=== PATIENT | male | born 1950 | race Caucasian/White ===

== ENCOUNTER 2017-05-09 19:30 | Inpatient (IN) | payer MEDICARE, SELFPAY ==
[2016-06-12 14:02] VITALS: BMI 29.7
[2017-05-09] VITALS (7 sets, daily range): BP systolic 173–236; BP diastolic 95–120; PULSE 68–94; RESP 16–22; TEMP 36.8–37.1; O2SAT 94–98; BMI 30.2; BMI 28.5; BMI 28.6
--- NOTE | 2017-05-09 19:33 | NURSING ---
RN CALLED FOR EKG, PULLED OLD EKG'S FOR
--- NOTE | 2017-05-09 19:49 | EKG12_ITS ---
Test Reason : CP Blood Pressure : / mmHG Vent. Rate : 077 BPM Atrial Rate : 077 BPM P-R Int : 198 ms QRS Dur : 092 ms QT Int : 494 ms P-R-T Axes : 043 -19 010 degrees QTc Int : 559 ms Normal sinus rhythm Inferior infarct , age undetermined Anterior infarct , age undetermined Prolonged QT Abnormal ECG Confirmed by MEL METZ, REINA ([id number]), property technician CANELO DIETRICH ([id number]) on 05/12/2017 2:32:29 PM Referred By: JOANN Confirmed By:REINA LEAL MD
--- NOTE | 2017-05-09 19:50 | CT_ITS ---
STUDY: CT ABDOMEN AND PELVIS WITHOUT CONTRAST REASON FOR EXAM: Male, 66 years old. Abdominal pain. Nausea. RADIATION DOSAGE (If Supplied By Facility): CTDIvol = ( 12.71 ) mGy, DLP = ( 652.92 ) mGycm TECHNIQUE: Transaxial images were obtained from the dome of the diaphragm to the symphysis pubis without oral contrast, and without intravenous contrast. Sagittal and coronal images were reconstructed. Individualized dose optimization techniques were used for this CT. COMPARISON: None. FINDINGS: There are bilateral pleural effusions present, right greater than left. There are coronary artery calcifications present. Normal liver. Normal gallbladder and extrahepatic biliary system. Normal spleen. Normal pancreas. Normal bilateral adrenal glands. Normal right kidney. Normal left kidney. Normal visualized stomach. Normal small intestine. Normal colon. The appendix is visualized and appears normal. There is diffuse atherosclerotic calcification of the abdominal aorta, without a demonstrated aneurysm. Normal inferior vena cava. Normal retroperitoneum. The urinary bladder is fluid-filled and distended. There appears to be associated mild bilateral hydroureter. Normal abdominal wall. There are diffuse degenerative changes of the visualized lumbar spine. CT/Abdomen/Pelvis without Cont IMPRESSION: Fluid-filled distended urinary bladder. Atherosclerosis. Small bilateral pleural effusions, right greater than left. Electronically Signed: Melani Thompson MD at 20:29 EST Tel , Service support ,
[2017-05-09] MEDS: Ondansetron 4 MG/2 ML Vial IV (19:56)
--- NOTE | 2017-05-09 20:07 | RAD_ITS ---
STUDY: X-RAY CHEST REASON FOR EXAM: Male, 66 years old. Cough, chest pain. TECHNIQUE: PA and lateral views of the chest. COMPARISON: March 13, 2017 FINDINGS: There are small bilateral pleural effusions. There are low lung volumes. There is stable cardiomegaly. Normal visualized aortic arch and descending thoracic aorta. Normal visualized thoracic spine. Normal visualized ribs, clavicles, and shoulders. There is no demonstrated abnormality of the visualized soft tissue structures of the upper abdomen. RAD/Chest PA and Lateral IMPRESSION: Small bilateral pleural effusions. Stable cardiomegaly. Electronically Signed: Melani Thompson MD at 21:07 EST Tel , Service support ,
[2017-05-09 20:15] LABS: Absolute Lymphocyte Count 0.97 X10^3/ul (0.83-4.51); Absolute Neutrophil Count 8.4 X10^3/uL (2.0-7.7); Basophil# 0.03 X10^3/uL; Basophil% 0.3 % (0-1); Eosinophil# 0.09 X10^3/uL; Eosinophils% 0.9 % (0-5); Hematocrit 47.9 % (40-54); Hemoglobin 16.3 g/dl (13.0-16.5); Lymphocyte # 0.97 X10^3/ul (4.0); Lymphocyte % 9.3 % (19-41); Mean Corpuscular Hgb 29.1 pg (27.0-32.0); Mean Corpuscular Volume 85.4 fL (80-94); Mean Platelet Vol. 9.4 fl (6.2-12.0); Monocyte# 0.93 X10^3/uL; Monocyte% 8.9 % (0-10); Neutrophil # 8.38 X10^3/uL (2.7-7.7); Neutrophil % 80.2 % (47-70); Platelet Count 213 K/mm3 (150-450); RBC Distribution Width CV 13.9 % (11.6-14.6); RBC Distribution Width SD 42.9 fl (35.1-43.9); Red Blood Count 5.61 M/mm3 (4.6-6.2); White Blood Count 10.4 K/mm3 (4.4-11.0)
[2017-05-09 20:16] LABS: POSITIVE DIFFERENTIAL NO
[2017-05-09 20:17] LABS: POSITIVE COUNT NO; POSITIVE MORPHOLOGY NO
[2017-05-09 20:41] LABS: AST(SGOT) 44 U/L (15-37); Alanine Aminotransfer ALT/SGPT 70 U/L (16-61); Albumin, Serum 4.1 g/dL (3.2-5.0); Alkaline Phosphatase 82 U/L (45-117); Anion Gap 13 (5-15); BUN 14 mg/dL (7-18); Calcium,Total 9.3 mg/dL (8.5-10.1); Chloride 98 mmol/L (98-107); Creatinine, Serum 1.55 mg/dL (0.70-1.30); EST Glomerular Filtration Rate 48 mL/min (>60); Est Glom Filt Rate - Afr Amer 58 mL/min (>60); Estimated Creatinine Clearance 48.15 ml/min; Globulin 4.3 g/dL (2.2-4.2); Glucose 215 mg/dL (74-106); Lipase 99 U/L (73-393); Potassium 3.1 mmol/L (3.5-5.1); Protein, Total 8.4 g/dL (6.4-8.2); Sodium Level 135 mmol/L (136-145)
[2017-05-09 21:03] LABS: Bacteria 0 SEEN /hpf (None Seen); Mucous, Urine 0 SEEN /hpf (<or=2+); Squamous Epithelial Cells - UA 0 SEEN /hpf (0-5); White Blood Cells 0 SEEN /hpf (0-5)
[2017-05-09 21:06] LABS: Color, Urine Straw (Yellow); Glucose, Dipstick 250 mg/dl (Normal); Ketone-Dipstick Negative (Negative); Leukocyte Esterase-Dipstick Negative /ul (Negative); Nitrite-Dipstick Negative (Negative); Occult Blood-Urine 50 /ul (Negative); Protein-Dipstick 100 mg/dl (Negative); Specific Gravity, Urine 1.005 (1.002-1.030); Urine Bilirubin Dipstick Negative (Negative); Urine Clarity Clear (Clear); Urine Urobilinogen Normal (Normal)
[2017-05-09 21:19] LABS: Red Blood Cells-Urine 0-5 SEEN /hpf (0-5)
--- NOTE | 2017-05-09 21:34 | ED.DCSUM_ITS ---
- ER Visit Summary Date of Service: 05/09/17 Chief Complaint: Abdominal pain History of Present Illness: The patient is a 66 M who presents with diffuse nonfocal aching abdominal pain for the past week. Patient is a poor historian. Although he reports it as 10 out of 10 he then describes as mild knotting feeling. He states that he has had worse pain and can imagine worse pain but still placed this at 10 out of 10. Reports nausea with dry heaving. No actual vomiting. No diarrhea. No dysuria frequency or urgency. No hematuria. He does report difficulty voiding. Today he had some fluttering in his chest and palpitations. Although nursing triage note reported chest pain and chest tightness the patient denied this to me. He states he had absolutely no chest tightness chest pain or shortness of breath. Physical Examination: Initial blood pressure 236/120 vitals otherwise unremarkable Moist mucous membranes Heart regular rate and rhythm Lungs are clear Abdomen soft nondistended with some mild diffuse nonfocal tenderness no guarding no rebound Test Results: EKG shows sinus rhythm at a rate of 77 with inferior and anterior old Q waves. Laboratory studies notable for potassium 3.1 glucose 215 creatinine 1.55. Minimal elevation of ALT and AST at 70 and 44 respectively. Normal troponin. Normal lipase. Chest x-ray shows small bilateral pleural effusions. CT of the abdomen and pelvis shows a distended bladder and small effusion otherwise unremarkable. Emergency Department Course and Treatment: Avery catheter was placed and patient had roughly 1500 cc of light yellow urine out. He has remained resting comfortably throughout his course here and has benign repeat abdominal examinations. I explained that I do feel his abdominal pain is likely related to urinary retention. He actually has an appointment with his primary care physician tomorrow. He does not have acute ischemic changes on his EKG and has negative troponin and denies any chest pain or shortness of breath. However the patient and family essentially refused discharge. The patient states that he feels he needs to be watched overnight. He does not feel comfortable being discharged and wants to be watched to make sure everything is okay. I explained I do not believe that he meets admission criteria but could be placed in observation.. His blood pressure had improved to about 180/100. However his blood pressure does remain elevated and labile. Patient will be placed in observation for repeat laboratory studies and blood pressure monitoring. Treatment Plan: [] Disposition: Admit Impression: Abdominal pain Urinary retention Palpitations Hypokalemia Uncontrolled hypertension This note was generated with [employer] dictation software. It may contain incorrect words, spelling, and punctuation that were not noted in review of the chart prior to signing ED Disposition - Plan for ED Patient: Chief Complaint: Chest Pain Referrals: Jennifer Spicer DO [Primary Care Provider] -
[2017-05-09 21:50] LABS: Magnesium 1.7 mg/dL (1.6-2.6)
--- NOTE | 2017-05-09 22:52 | PCM.HP.STD ---
Problem List (1) Abdominal pain Status: Acute (2) Chest pain Status: Acute (3) Atherosclerosis of coronary artery of semin[place] heart without angina pectoris Status: Chronic Comment: SARA-RCA 06/15/2011, SARA-OM1 06/30/2011, SARA-LAD 08/20/2014, SARA-Prox- RCA 06/08/2016 (4) Cardiomyopathy, ischemic Status: Chronic (5) Chronic renal failure, stage 3 (moderate) Status: Chronic (6) History of coronary artery stent placement Status: Chronic Comment: SARA-RCA 06/15/2011, SARA-OM1 06/30/2011, SARA-LAD 08/20/2014, SARA-Prox- RCA 06/08/2016 (7) Hyperkalemia Status: Chronic (8) Hyperlipidemia Status: Chronic Qualifiers: (9) Hypertension Status: Chronic Qualifiers: Hypertension type: essential hypertension History of Present Illness Date of Admission: 05/09/17 Chief Complaint: Abdominal pain The patient is a 66 year old male w/ h/o left atrial thrombus, pulmonary HTN, CAD, paroxysmal afib, HTN, DMII and CKD III admitted for abdominal pain. He has epigastric abdominal pain x 1 week. Pain is constant and is in his epigastric area.. Pain is dull aching. Nothing makes it better or worse. Pain is so severe that he would have dry heave. No n/v. No other associated symptoms. Pain prevents him from eating. He also has occasional mild substernal chest pain. Pain occurs at rest and is episodic. Pain would last for minutes. Pain does not radiate. He has no palpitation or SOB associated with his chest pain. Past Medical History Past Medical History (Chronic Problems): Chronic Problems (Last Updated 05/02/17 @ 13:28 by Melania Mendoza) 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) History of coronary artery stent placement (Chronic ~06/08/16) SARA-RCA 06/15/2011, SARA-OM1 06/30/2011, SARA-LAD 08/20/2014, SARA-Prox- RCA 06/08/2016 Atherosclerosis of coronary artery of [place] heart without angina pectoris (Chronic) SARA-RCA 06/15/2011, SARA-OM1 06/30/2011, SARA-LAD 08/20/2014, SARA-Prox- RCA 06/08/2016 Paroxysmal atrial fibrillation (Chronic) Hypertension (Chronic) Hyperlipidemia (Chronic) Type II diabetes mellitus (Chronic) Hyperkalemia (Chronic) Chronic renal failure, stage 3 (moderate) (Chronic) STEMI (ST elevation myocardial infarction) (Chronic) Anemia of chronic renal failure, stage 3 (moderate) (Chronic) Obesity (BMI 30.0-34.9) (Chronic) Systolic CHF, acute on chronic (Chronic) Cardiomyopathy, ischemic (Chronic) Allergies atorvastatin calcium [From Lipitor] Allergy (Verified 05/09/17 19:31) Unknown diltiazem Allergy (Verified 05/09/17 19:31) Angioedema Home Medications: Ambulatory Orders Medication Instructions Recorded Aspirin [Aspirin, Baby] 81 mg PO DAILY@0800 12/28/14 Insulin Glargine,Hum.rec.anlog 60 unit SQ DAILY 12/28/14 [Lantus] Pravastatin [Pravachol] 40 mg PO QHS 12/28/14 Amiodarone HCl 200 mg PO DAILY 04/09/16 Carvedilol [Coreg (Beta Thalia)] 25 mg PO BID 04/10/16 Clopidogrel Bisulfate [Plavix] 75 mg PO DAILY 01/14/17 Losartan Potassium [Cozaar] 100 mg PO DAILY 01/14/17 Furosemide [Lasix] 40 mg PO BID@1000,1800 #90 tab 03/15/17 hydralazine 50 mg tablet 75 mg PO TID #135 tab 04/15/17 apixaban 2.5 mg tablet 2.5 mg PO BID #180 tab 04/20/17 Isosorbide Mononitrate [Imdur] 60 mg PO QHS 05/09/17 Surgical History: - - PCI. Psychiatric History: No pertinent psych hx, - - unknow - pt is intubated and unable to give hx. No family present Smoking Status: Former smoker - *Family History Maternal History Items: No pertinent history Paternal History Items: No pertinent history Review of Systems Constitutional: Denies: Chills, Fever, Weight Change HEENT: Denies: Head Aches, Sinus Congestion, Sinus Drainage Cardiovascular: Reports: Chest Pain. Denies: Palpitations Respiratory: Denies: Cough, Shortness of breath at rest, Sputum production Gastrointestinal: Reports: Abdominal Pain, Nausea. Denies: Vomiting Genitourinary: Denies: Dysuria Musculoskeletal: Denies: Joint Pain, Joint Tenderness Skin: Denies: Rash, Wounds Neurological: Denies: Numbness, Tingling, Focal weakness Psychiatric: Denies: Anxiety, Depression, Homicidal Ideations, Suicidal Ideations Hematologic/ Lymphatic: Denies: Easy Bruising, Easy Bleeding VTE Information - Inpt Only VTE Present on Admission: No VTE Mechan Device Prophylaxis: SCD's VTE Pharm Prophylaxis ordered?: No Patient Problems: Active and Suspected Problems (Last Updated 05/02/17 @ 13:28 by Melania Mendoza) Abdominal pain (Acute) Chest pain (Acute) - Physical Exam General: Alert, Oriented x3, Cooperative HEENT: Atraumatic, PERRLA, EOMI, Normocephalic Neck: Supple, No JVD, Negative Carotid Bruits Lungs: Clear to auscultation, Normal air movement Cardiovascular: Irregular Rate, Murmur - II/ systolic murmur Abdomen: Bowel Sounds Present, Soft, - - Mild diffuse tenderness Extremities: No edema, Capillary Refill Less than 3 Seconds Skin: No rashes, No breakdown Musculoskeletal: No Tenderness to Palpation of Joints or Extremities Neurological: Cranial nerves II-XII grossly intact Psych/Mental Status: Normal Affect, Appropriate Vital Signs Temp Pulse Resp BP Pulse Ox 98.2 F 69 16 173/95 H 95 05/09/17 19:32 05/09/17 22:21 05/09/17 22:21 05/09/17 22:21 05/09/17 22:21 Oxygen Delivery Method Room Air Weight: 92.8 kg Body Mass Index (BMI) 30.2 Finger Stick Blood Glucose 213 Laboratory Tests Past 24 Hrs 05/09/17 05/09/17 05/09/17 19:30 19:30 19:30 WBC 10.4 RBC 5.61 Hgb 16.3 Hct 47.9 MCV 85.4 MCH 29.1 MCHC 34.0 RDW 13.9 RDW Differential 42.9 Plt Count 213 MPV 9.4 Immature Gran % (Auto) 0.400 Neut % (Auto) 80.2 H Lymph % (Auto) 9.3 L [place] % (Auto) 8.9 Eos % (Auto) 0.9 Baso % (Auto) 0.3 Absolute Neuts (auto) 8.4 H Absolute Lymphs (auto) 0.97 Total Counted Not Reportable Sodium 135 L Potassium 3.1 L Chloride 98 Carbon Dioxide 24.0 Anion Gap 13 BUN 14 Creatinine 1.55 H Estim Creat Clear Calc 48.15 Est GFR (MDRD) Af Amer 58 L Est GFR (MDRD) Non-Af 48 L BUN/Creatinine Ratio 9.0 L Glucose 215 H Calcium 9.3 Magnesium 1.7 Total Bilirubin 0.80 AST 44 H ALT 70 H Alkaline Phosphatase 82 Troponin I 0.05 Total Protein 8.4 H Albumin 4.1 Globulin 4.3 H Albumin/Globulin Ratio 1.0 Lipase 99 Urine Color Urine Clarity Urine pH Ur Specific [place] Urine Protein Urine Glucose (UA) Urine Ketones Urine Occult Blood Urine Nitrite Urine Bilirubin Urine Urobilinogen Ur Leukocyte Esterase Urine RBC Urine WBC Ur Squamous Epith Cells Urine Bacteria Urine Mucus 05/09/17 20:50 WBC RBC Hgb Hct MCV MCH MCHC RDW RDW Differential Plt Count MPV Immature Gran % (Auto) Neut % (Auto) Lymph % (Auto) [place] % (Auto) Eos % (Auto) Baso % (Auto) Absolute Neuts (auto) Absolute Lymphs (auto) Total Counted Sodium Potassium Chloride Carbon Dioxide Anion Gap BUN Creatinine Estim Creat Clear Calc Est GFR (MDRD) Af Amer Est GFR (MDRD) Non-Af BUN/Creatinine Ratio Glucose Calcium Magnesium Total Bilirubin AST ALT Alkaline Phosphatase Troponin I Total Protein Albumin Globulin Albumin/Globulin Ratio Lipase Urine Color Straw Urine Clarity Clear Urine pH 7.0 Ur Specific [place] 1.005 Urine Protein 100 H Urine Glucose (UA) 250 H Urine Ketones Negative Urine Occult Blood 50 H Urine Nitrite Negative Urine Bilirubin Negative Urine Urobilinogen Normal Ur Leukocyte Esterase Negative Urine RBC 0-5 SEEN Urine WBC 0 SEEN Ur Squamous Epith Cells 0 SEEN Urine Bacteria 0 SEEN Urine Mucus 0 SEEN Assessment/Plan Active and Suspected Problems (Last Updated 05/02/17 @ 13:28 by Melania Mendoza) Abdominal pain (Acute) Chest pain (Acute) 66 year old male w/ h/o left atrial thrombus, pulmonary HTN, CAD, paroxysmal afib, HTN, DMII and CKD III admitted for abdominal pain. He has epigastric abdominal pain x 1 week. 1) Abdominal pain: Unclear etiology. CT negative. Lipase negative. Supportive care. 2) Chest pain: Heart score 5 Will get serial trops. ECHO and stress test in AM. Will get lipid. C/w medical management. 3) Elevated trops: Probably type II from HTN and underlying cardiomyopathy. Follow trops and if increasing, will need to hold off on stress test. C/w medical management. 4) HTN: Resume home meds. May need to add PRN meds. Monitor.
[2017-05-09 23:53] LABS: Amphetamine Urine VISTA NEGATIVE (<1000 ng/mL); Barbiturate Urine VISTA NEGATIVE (< 200 ng/mL); Benzodiazepine Urine VISTA NEGATIVE (< 200 ng/mL); Cocaine Urine VISTA NEGATIVE (< 300 ng/mL); Ecstacy Urine VISTA NEGATIVE (< 500 ng/mL); Methadone Urine VISTA NEGATIVE (< 300 ng/mL); PCP Urine VISTA NEGATIVE (< 25 ng/mL); THC Urine VISTA NEGATIVE (< 50 ng/mL); Vista UDS pH Range 6
[2017-05-10] VITALS (16 sets, daily range): BP systolic 126–164; BP diastolic 84–102; PULSE 54–103; RESP 18; TEMP 36.8–37.1; O2SAT 94–96
[2017-05-10] MEDS: 0.9% NaCl Peripheral Flush Adult/Peds IV ×4 (00:17→22:11)
[2017-05-10 00:35] LABS: Lactic Acid 1.1 mmol/L (0.4-2.0)
[2017-05-10 00:36] LABS: Bedside Glucose 150 mg/dL (70-110)
[2017-05-10] MEDS: Isosorbide Mononitrate 60 MG Tablet PO ×2 (01:09→21:58)
[2017-05-10] MEDS: Carvedilol 25 MG Tablet PO ×3 (01:10→21:58)
[2017-05-10] MEDS: APIXABAN 2.5 MG TABLET PO (01:10)
[2017-05-10] MEDS: Pravastatin 40 MG Tablet PO ×2 (01:10→21:58)
[2017-05-10 04:12] LABS: Absolute Lymphocyte Count 0.88 X10^3/ul (0.83-4.51); Basophil# 0.05 X10^3/uL; Basophil% 0.5 % (0-1); Eosinophil# 0.08 X10^3/uL; Eosinophils% 0.9 % (0-5); Hematocrit 41.4 % (40-54); Hemoglobin 14.2 g/dl (13.0-16.5); Lymphocyte # 0.88 X10^3/ul (4.0); Lymphocyte % 9.5 % (19-41); Mean Corp Hgb Conc 34.3 g/gl (32-36); Mean Corpuscular Hgb 29.5 pg (27.0-32.0); Mean Corpuscular Volume 85.9 fL (80-94); Mean Platelet Vol. 9.5 fl (6.2-12.0); Monocyte# 1.15 X10^3/uL; Monocyte% 12.5 % (0-10); Neutrophil # 7.04 X10^3/uL (2.7-7.7); Neutrophil % 76.3 % (47-70); Platelet Count 201 K/mm3 (150-450); RBC Distribution Width CV 14.1 % (11.6-14.6); RBC Distribution Width SD 42.8 fl (35.1-43.9); Red Blood Count 4.82 M/mm3 (4.6-6.2); White Blood Count 9.2 K/mm3 (4.4-11.0)
[2017-05-10 04:13] LABS: POSITIVE COUNT NO; POSITIVE DIFFERENTIAL NO; POSITIVE MORPHOLOGY NO
[2017-05-10 04:52] LABS: ALB/GLOB Ratio 0.9 RATIO (0.9-2.4); AST(SGOT) 30 U/L (15-37); Alanine Aminotransfer ALT/SGPT 50 U/L (16-61); Albumin, Serum 3.2 g/dL (3.2-5.0); Alkaline Phosphatase 60 U/L (45-117); Anion Gap 10 (5-15); BUN 13 mg/dL (7-18); BUN/Creat Ratio 8.9 RATIO (10-20); Calcium,Total 8.3 mg/dL (8.5-10.1); Chloride 102 mmol/L (98-107); Cholesterol 121 mg/dL (200); Creatinine, Serum 1.46 mg/dL (0.70-1.30); EST Glomerular Filtration Rate 52 mL/min (>60); Est Glom Filt Rate - Afr Amer 62 mL/min (>60); Estimated Creatinine Clearance 51.11 ml/min; Globulin 3.5 g/dL (2.2-4.2); Glucose 149 mg/dL (74-106); High Density Lipoprotein 41 mg/dL; Magnesium 1.8 mg/dL (1.6-2.6); Potassium 3.2 mmol/L (3.5-5.1); Protein, Total 6.7 g/dL (6.4-8.2); Sodium Level 139 mmol/L (136-145); Thyroid Stim Hormone (TSH) 4.93 uIU/mL (0.358-3.74); Triglycerides 113 mg/dL; Very Low Density Lipoprotein 23 mg/dL (5-40)
--- NOTE | 2017-05-10 05:55 | ECHOD_ITS ---
Reason For Study: chest pain Procedure This was a 2D Doppler, Color Flow transthoracic echocardiogram. Exam performed portable in patient room. Left Ventricle Normal LV size. Moderately severe segmental systolic dysfunction (see wall motion). The estimated ejection fraction is 25 %. Mid-anteroseptal : Hypokinetic. Anterior [place] : Severely Hypokinetic. Anterio-Basal: Hypokinetic. Lateral-Basal: Normal. Posterior-Basal: Normal. Infero-Basal: Normal. Basal inferoseptal: Mildly hypokinetic. Basal anteroseptal: Normal. Septal [place] : Akinetic. Mid- Anterior : Hypokinetic. Mid-Lateral : Normal. Mid-Posterior: Hypokinetic. Mid-Inferior: Normal. Right Ventricle Normal RV size. Normal systolic function. Atria Normal left atrium. Normal right atrium. Mitral Valve Normal mitral valve. Tricuspid Valve Normal tricuspid valve. Mild (1+) tricuspid valve insufficiency. Pulmonary artery systolic pressure is 28 mmHg. Aortic Valve Normal aortic valve. Pulmonic Valve Normal pulmonic valve. Great Vessels Normal aortic root. The pulmonary artery is normal size. Normal inferior vena cava. Pericardium/Pleural No pericardial effusion. MMode/2D Measurements & Calculations LVIDd: 5.0 cm IVSd: 1.5 cm Ao root diam: 3.6 cm LVIDs: 3.8 cm LVPWd: 1.1 cm LA dimension: 4.4 cm FS: 23.0 % LAV(MOD-bp): 59.4 ml LA A4 area: 20.0 cm2 RA A4 area: 18.6 cm2 LAV(MOD-bp) Indexed: 29.2 ml/m2 LAV(MOD-sp2): 56.6 ml LAV(MOD-sp4): 57.6 ml Doppler Measurements & Calculations MV E max kevin: 107.4 cm/sec Lat Peak E' Kevin: 10.3 cm/sec Med Peak E' Kevin: 8.3 cm/sec MV A max kevin: 45.9 cm/sec E/E' lat: 10.4 E/E' med: 13.0 MV E/A: 2.3 Ao V2 max: 100.6 cm/sec LV V1 max: 79.4 cm/sec PA V2 max: 103.5 cm/sec Ao max P.1 mmHg LV V1 max P.5 mmHg TR max kevin: 240.6 cm/sec TR max P.2 mmHg Interpretation Summary Normal LV size. Moderately severe segmental systolic dysfunction (see wall motion). The estimated ejection fraction is 25 %. Mild (1+) tricuspid valve insufficiency. Ordering Physician: Suimt Hendricks Referring Physician: Jennifer Spicer Performed By: Melissa Hawthorne, IBRAHIMA, RVT
[2017-05-10 06:16] LABS: Bedside Glucose 184 mg/dL (70-110)
--- NOTE | 2017-05-10 10:22 | CASEMGMT ---
RN LISET Face to Face with patient for initial transition planning/care coordination assessment. RN CM introduced self and role at [facility]. Patient lying in bed, alert and oriented. Patient willing to participate in assessment and is able to answer all questions appropriately. Care providers, pharmacy, and demographics verified. See link attached. Patient wishes to discharge home, denies need for home health at this time. Patient states he has no further needs or concerns at this time. CM to follow for discharge planning needs that may arise. Disposition Plan: Patient to discharge home with family support and follow-up plans in place.
--- NOTE | 2017-05-10 10:52 | PCM.PN.HOSP ---
Patient Problems: Active and Suspected Problems (Last Updated 05/02/17 @ 13:28 by Melania Mendoza) Abdominal pain (Acute) Chest pain (Acute) Subjective: CC: Epigastric pain This is a 66-year-old male with past medical history of left atrial thrombus, pulmonary HTN, CAD, paroxysmal afib, HTN, DMII and CKD III admitted for abdominal pain. He describes his gastric pain radiating to her back. His pancreatic enzymes and CT scan of the abdomen does not show any evidence of pancreatitis. He is on Eliquis, Plavix and aspirin for his cardiac problems mentioned above. He is unaware of melanotic stools. Vitals/I&O's: Vital Signs Temp Pulse Resp BP Pulse Ox 98.2 F 56 L 18 146/84 H 96 05/10/17 06:02 05/10/17 06:11 05/10/17 06:02 05/10/17 06:02 05/10/17 06:02 Oxygen Delivery Method Room Air Weight: 87.8 kg Body Mass Index (BMI) 28.5 Intake and Output for Last 24 Hours 05/08/17 05/09/17 05/10/17 23:59 23:59 23:59 Intake Total 60 / 60 Output Total 325 / 325 Balance -265 / -265 General: Alert, Oriented x3 Neck: Supple, No JVD Lungs: Clear to auscultation Cardiovascular: Regular rate, Normal S1, Normal S2 Abdomen: Bowel Sounds Present, Tender, - Extremities: No edema Neurological: Cranial nerves II-XII grossly intact, Motor Exam 5/5 strength throughout Psych/Mental Status: Normal Affect Laboratory Results 05/09/17 23:53: Lactic Acid 1.1 05/09/17 23:53: CK Isoenzymes Pending, CK-MM (CK-3) Pending, CK-MB (CK-2) Pending, CK-BB (CK-1) Pending 05/09/17 23:53: Troponin I 0.18 H 05/10/17 00:33: POC Glucose 150 H 05/10/17 03:50: WBC 9.2, RBC 4.82, Hgb 14.2, Hct 41.4, MCV 85.9, MCH 29.5, MCHC 34.3, RDW 14.1, RDW Differential 42.8, Plt Count 201, MPV 9.5, Immature Gran % (Auto) 0.300, Neut % (Auto) 76.3 H, Lymph % (Auto) 9.5 L, [place] % (Auto) 12.5 H, Eos % (Auto) 0.9, Baso % (Auto) 0.5, Absolute Neuts (auto) 7.0, Absolute Lymphs (auto) 0.88, Total Counted Not Reportable 05/10/17 03:50: Sodium 139, Potassium 3.2 L, Chloride 102, Carbon Dioxide 27.0, Anion Gap 10, BUN 13, Creatinine 1.46 H, Estim Creat Clear Calc 51.11, Est GFR (MDRD) Af Amer 62, Est GFR (MDRD) Non-Af 52 L, BUN/Creatinine Ratio 8.9 L, Glucose 149 H, Calcium 8.3 L, Magnesium 1.8, Total Bilirubin 0.60, AST 30, ALT 50, Alkaline Phosphatase 60, Total Protein 6.7, Albumin 3.2, Globulin 3.5, Albumin/Globulin Ratio 0.9, Triglycerides 113, Cholesterol 121, LDL Cholesterol 57, VLDL Cholesterol 23, HDL Cholesterol 41, TSH 4.93 H 05/10/17 03:50: Troponin I 0.22 H 05/10/17 06:08: POC Glucose 184 H Current Medications Amiodarone HCl (Cordarone) 200 mg PO DAILY [facility] Apixaban (Eliquis) 2.5 mg PO BID [facility] Last Admin: 05/10/17 01:10 Dose: 2.5 mg Aspirin (Aspirin, Baby) 81 mg PO DAILY@0800 [facility] Carvedilol (Coreg) 25 mg PO BID [facility] Last Admin: 05/10/17 01:10 Dose: 25 mg Clopidogrel Bisulfate (Plavix) 75 mg PO DAILY [facility] Furosemide (Lasix) 40 mg PO BID@1000,1800 [facility] Hydralazine HCl (Apresoline) 75 mg PO TID [facility] Last Admin: 05/10/17 06:11 Dose: 75 mg Insulin Detemir (Levemir (Bkc)) 60 units SC DAILY [facility] Isosorbide Mononitrate (Imdur) 60 mg PO QHS [facility] Last Admin: 05/10/17 01:09 Dose: 60 mg Losartan Potassium (Cozaar) 100 mg PO DAILY [facility] Morphine Sulfate (Morphine) 2 mg IV Q4H PRN PRN PRN Reason: SEVERE PAIN (6-/10) Last Admin: 05/10/17 06:21 Dose: 2 mg Nitroglycerin (Nitrostat) 0.4 mg SUBLINGUAL Q5M PRN PRN Reason: CHEST PAIN Last Admin: 05/10/17 03:17 Dose: 0.4 mg Pravastatin Sodium (Pravachol) 40 mg PO QHS MARIA ISABEL Last Admin: 05/10/17 01:10 Dose: 40 mg Sodium Chloride () 5 - 30 ml IV UD PRN PRN Reason: SALINE FLUSH Last Admin: 05/10/17 00:17 Dose: 10 ml Assessment/Plan Active and Suspected Problems (Last Updated 05/02/17 @ 13:28 by Melania Mendoza) Abdominal pain (Acute) Chest pain (Acute) 1. Epigastric pain; in his epigastric tenderness and being on anticoagulation and dual antiplatelet therapy assessment he might have peptic ulcer disease, I have consulted general surgery for possible EGD in a.m. 2. Atypical chest pain; stress test was negative for ischemia . 3. history intracardiac thrombus; the patient is on Eliquis, we will hold Eliquis for EGD tomorrow. 4. Atrial fibrillation the patient is on amiodarone and anticoagulation. 5. cardiomyopathy ; he does not appear to have decompensated HF. Code Visit Inpatient E&M: 60175 [facility] L[facility]
--- NOTE | 2017-05-10 11:34 | STRESSREP_ITS ---
Stress Test Report Pharmacologic myocardial perfusion stress test. 66-year-old man with a history of coronary artery disease status post multiple previous stenting procedures with abdominal discomfort and nonspecific troponins. Stress protocol: Resting EKG demonstrates atrial fibrillation with a rate of 101 bpm. Resting blood pressure is 154/82 mmHg. 0.4 mg of regadenoson was infused per usual protocol followed by rapid intravenous saline flush injection continuous EKG monitoring was performed. The maximum heart rate attained was 131 bpm which was 83% of maximum predicted heart rate the maximum workload attained was 1 metabolic equivalent. The resting blood pressure is 154/82 with a final blood pressure 142/92. Nonspecific ST-T wave changes were noted throughout. Myocardial perfusion protocol. 9.4 mCi of technetium 99m sestamibi was injected at rest. 0.4 mg regadenoson was infused per usual protocol. Peak infusion 31.0 mCi of technetium 99m sestamibi was injected. Stress images were obtained. Stress and rest images were reconstructed and compared in the short axis vertical long and horizontal long axis. Gated images were also obtained. Perfusion SPECT analysis: Review of the stress images demonstrate a normal cardiac silhouette size. On the stress images there is a medium-sized defect noted involving the mid anterior wall extending to the apex with a definite significant defect noted in the apex. There is also a medium size area of perfusion defect in the inferior/ inferolateral wall on the stress images. The resting images appear to demonstrate an identical pattern suggestive of a previous anterior and apical infarct and inferior lateral infarct. The septum and mid anterior pfeiffer appear to be well perfused with no reversibility noted in any territory to suggest ischemia. There is also some motion artifact noted. Gated SPECT analysis: The gated ejection fraction is estimated to be 36% with severe hypokinesis of the inferior apical wall as well as akinesis of the apex and severe hypokinesis of the distal anterior wall. Conclusion: Myocardial perfusion scan with evidence of previous anterior apical infarct Previous distal inferolateral infarct noted Cardiomyopathy with an ejection fraction of 36% Persistent atrial fibrillation No obvious ischemia noted.
--- NOTE | 2017-05-10 11:45 | CT_ITS ---
STUDY: CT ABDOMEN AND PELVIS WITH CONTRAST REASON FOR EXAM: Male, 66 years old. One week history of epigastric pain. Prior hernia repair. RADIATION DOSAGE (If Supplied By Facility): CTDIvol = ( 23.33 ) mGy, DLP = ( 1078.71 ) mGycm TECHNIQUE: Transaxial images were obtained from the dome of the diaphragm to the symphysis pubis with oral contrast. 100ML ml of Isovue 300 contrast was administered. Sagittal and coronal images were reconstructed. Individualized dose optimization techniques were used for this CT. COMPARISON: Comparison is made with prior examination dated May 09, 2017. FINDINGS: Small right pleural effusion. This has decreased in size as compared to prior study. Minimal right basilar atelectasis. Coronary artery calcifications. Normal liver. Normal gallbladder and extrahepatic biliary system. Normal spleen. Normal pancreas. Normal bilateral adrenal glands. Mild degree of nonspecific bilateral perinephric stranding. Cortical scar along the inferior lateral portion of the left kidney. There is a small hiatal hernia. Normal small intestine. Normal colon. The appendix is visualized and appears normal. There is scattered atherosclerotic calcification of the abdominal aorta and its major visceral branches, without a demonstrated aneurysm. Normal inferior vena cava. There is borderline retroperitoneal lymphadenopathy with enlarged nodes no greater than 10mm in the short axis diameter. A Avery catheter is seen within the urinary bladder. Diffuse bladder wall thickening. There is a left-sided inguinal hernia containing adipose tissue. There are diffuse degenerative changes of the visualized lumbar spine. CT/Abdomen/Pelvis WITH Contrast IMPRESSION: Decreased right pleural effusion. Nonspecific mild degree of bilateral perinephric stranding. There is no evidence of hydronephrosis at this time. Electronically Signed: Domingo Noyola MD at 15:17 EST Tel [phone], Service support ,
[2017-05-10] MEDS: Aspirin 81 MG TAB.CHEW PO (12:00)
[2017-05-10] MEDS: Furosemide 40 MG Tablet PO ×2 (12:00→17:32)
[2017-05-10] MEDS: Amiodarone 200 MG Tablet PO (12:00)
[2017-05-10] MEDS: Losartan Potassium 100 MG Tablet PO (12:00)
[2017-05-10] MEDS: Clopidogrel Bisulfate 75 MG Tablet PO (12:00)
[2017-05-10 12:26] LABS: Bedside Glucose 233 mg/dL (70-110)
[2017-05-10 16:56] LABS: Bedside Glucose 132 mg/dL (70-110)
[2017-05-10 22:51] LABS: Bedside Glucose 56 mg/dL (70-110)
[2017-05-10 22:51] LABS: Bedside Glucose 81 mg/dL (70-110)
[2017-05-11] VITALS (22 sets, daily range): BP systolic 105–153; BP diastolic 60–93; PULSE 37–97; RESP 16–18; TEMP 36.3–36.9; O2SAT 91–99
--- NOTE | 2017-05-11 | GASB_PTH ---
PATIENT: RYAN CUMMINS LOC: [facility] U#:[id number] AGE/SX: 66/M ROOM: MO321 RE05/09/[address]: Andrew Castellon MD : 1950 BED: 1 DIS: 05/12/2017 SPEC #: [id number] RECD: 05/11/17 14:23 STATUS: [place] REQ #: [id number] SUSIE: 05/11/17 00:[address]: Víctor Rose DEPT: SURGICAL PATHOLOGY RECD BY: Jey Frederick ENTERED: 05/11/17 14:24 SP TYPE: Gastric Bx OTHR DR: MD Dr. Jennifer Nieto DO Dr. Nhan Luu, MD Tissues: A - Gastric mucous membrane B - Esophageal mucous membrane Procedures: Special Stain Group II Surgery Specimen Level IV Alcian Blue/PAS (control) Comments: @ Ordering doctor for SUIV edited from to @ by ISRA at 05/12/17 0842 @ Submitting doctor edited from to @ by ISRA at 05/12/17 0842 HEADER OPERATION: EGD PRE-OP DIAGNOSIS: Epigastric pain TISSUE SUBMITTED: A ? Antral biopsy, B ? Distal esophageal biopsy MICROSCOPIC DIAGNOSIS A. Gastric antrum, biopsy: Fragments of benign superficial gastric epithelium. B. Distal esophagus, biopsy: Gastroesophageal junctional mucosa with mild chronic inflammation. 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 AM:wang 05/12/17 COMMENT A. There is no evidence of inflammation. Clinical correlation is suggested. B. Alcian blue/PAS stain with matched control supports the above diagnosis. MICROSCOPIC DESCRIPTION Slides are reviewed. GROSS DESCRIPTION A - Received in fixative is one container labeled with the patient's name and designated antral biopsy. The specimen consists of one irregular fragment of light muhammad soft tissue that measures 0.2 x 0.2 x <0.2 cm. The specimen is totally submitted in one cassette. B - Received in fixative is one container labeled with the patient's name and designated distal esophagus. The specimen consists of multiple irregular fragments of light muhammad soft tissue that in aggregate measure 0.6 x 0.3 x 0.1 cm. The specimen is totally submitted in one cassette. / AM:wang 05/11/17 TC:5 CPT: 44798 x2, 34977
--- NOTE | 2017-05-11 00:45 | NURSING ---
heart rate bradycardic. pt is asleep. awakens easily. denies any discomfort. vitals checked. blood sugar checked and is 120. will notify the hospitalist. also spoke with [facility] nurse and tray line supervisor. will monitor.
[2017-05-11 00:56] LABS: Bedside Glucose 120 mg/dL (70-110)
[2017-05-11] MEDS: 0.9% NaCl Peripheral Flush Adult/Peds IV (05:41)
[2017-05-11 07:15] LABS: Bedside Glucose 103 mg/dL (70-110)
[2017-05-11 07:56] LABS: Anion Gap 9 (5-15); BUN 23 mg/dL (7-18); Calcium,Total 8.1 mg/dL (8.5-10.1); Chloride 102 mmol/L (98-107); EST Glomerular Filtration Rate 31 mL/min (>60); Est Glom Filt Rate - Afr Amer 37 mL/min (>60); Estimated Creatinine Clearance 32.45 ml/min; Glucose 100 mg/dL (74-106); Potassium 3.4 mmol/L (3.5-5.1); Sodium Level 139 mmol/L (136-145)
--- NOTE | 2017-05-11 09:10 | NURSING ---
CHERYL Steward taking patient down to PACU for EGD. Report called to DEVYN Conn in PACU at this time.
--- NOTE | 2017-05-11 09:12 | PN_ITS ---
Patient Problems: Active and Suspected Problems (Last Updated 05/02/17 @ 13:28 by Melania Mendoza) Abdominal pain (Acute) Chest pain (Acute) Subjective: CC: epigastric pain he is much improved but has significant epigastric pain. He reports no nausea or vomiting. Vitals/I&O's: Vital Signs Temp Pulse Resp BP Pulse Ox 97.8 F 68 18 130/78 H 96 05/11/17 05:47 05/11/17 05:47 05/11/17 05:47 05/11/17 05:47 05/11/17 05:47 Oxygen Delivery Method Room Air Weight: 87.8 kg Body Mass Index (BMI) 28.5 Intake and Output for Last 24 Hours 05/09/17 05/10/17 05/11/17 23:59 23:59 23:59 Intake Total 370 / 370 400 / 400 Output Total 800 / 800 800 / 800 Balance -430 / -430 -400 / -400 Laboratory Results 05/10/17 11:40: Troponin I 0.10 H 05/10/17 12:21: POC Glucose 233 H 05/10/17 16:45: POC Glucose 132 H 05/10/17 22:13: POC Glucose 56 L 05/10/17 22:36: POC Glucose 81 05/11/17 00:49: POC Glucose 120 H 05/11/17 07:10: POC Glucose 103 05/11/17 07:15: Sodium 139, Potassium 3.4 L, Chloride 102, Carbon Dioxide 28.0, Anion Gap 9, BUN 23 H, Creatinine 2.30 H, Estim Creat Clear Calc 32.45, Est GFR (MDRD) Af Amer 37 L, Est GFR (MDRD) Non-Af 31 L, BUN/Creatinine Ratio 10.0, Glucose 100, Calcium 8.1 L 05/11/17 07:15: Hemoglobin A1c 8.0 H Current Medications Amiodarone HCl (Cordarone) 200 mg PO DAILY [facility] Last Admin: 05/10/17 12:00 Dose: 200 mg Aspirin (Aspirin, Baby) 81 mg PO DAILY@0800 [facility] Last Admin: 05/10/17 12:00 Dose: 81 mg Carvedilol (Coreg) 25 mg PO BID [facility] Last Admin: 05/10/17 21:58 Dose: 25 mg Clopidogrel Bisulfate (Plavix) 75 mg PO DAILY [facility] Last Admin: 05/10/17 12:00 Dose: 75 mg Furosemide (Lasix) 40 mg PO BID@1000,1800 [facility] Last Admin: 05/10/17 17:32 Dose: 40 mg Hydralazine HCl (Apresoline) 75 mg PO TID [facility] Last Admin: 05/11/17 05:40 Dose: 75 mg Insulin Detemir (Levemir (Bkc)) 60 units SC DAILY [facility] Last Admin: 05/10/17 12:00 Dose: 60 u Isosorbide Mononitrate (Imdur) 60 mg PO QHS [facility] Last Admin: 05/10/17 21:58 Dose: 60 mg Losartan Potassium (Cozaar) 100 mg PO DAILY [facility] Last Admin: 05/10/17 12:00 Dose: 100 mg Morphine Sulfate (Morphine) 2 mg IV Q4H PRN PRN PRN Reason: SEVERE PAIN (6-10/10) Last Admin: 05/10/17 22:11 Dose: 2 mg Nitroglycerin (Nitrostat) 0.4 mg SUBLINGUAL Q5M PRN PRN Reason: CHEST PAIN Last Admin: 05/10/17 03:17 Dose: 0.4 mg Pantoprazole Sodium (Protonix) 40 mg PO DAILY [facility] Pravastatin Sodium (Pravachol) 40 mg PO QHS [facility] Last Admin: 05/10/17 21:58 Dose: 40 mg Sodium Chloride () 5 - 30 ml IV UD PRN PRN Reason: SALINE FLUSH Last Admin: 05/11/17 05:41 Dose: 20 ml Assessment/Plan Active and Suspected Problems (Last Updated 05/02/17 @ 13:28 by Melania Mendoza) Abdominal pain (Acute) Chest pain (Acute) 1. Epigastric pain; suspect peptic ulcer disease, I have consulted general surgery for possible EGD in a.m. 2. Atypical chest pain; stress test was negative for ischemia . 3. history intracardiac thrombus; the patient is on Eliquis , on hol for EGD today. 4. Atrial fibrillation the patient is on amiodarone and anticoagulation. 5. cardiomyopathy ; he does not appear to have decompensated HF. Code Visit Inpatient E&M: 18704 [facility] Hosp L2
--- NOTE | 2017-05-11 11:16 | PCM.CONS.GEN ---
Reason for Consult Date of Consultation: 05/11/17 History of Present Illness: The patient is a 66 year old M admitted with epigastric and chest pain. The patient has a long-standing cardiac history including 5 drug-eluting stents atrial thrombus and cardiomyopathy with an ejection fraction of 25% on a recent echocardiogram. the patient denies hematemesis. he denies melena or dark stools. He does not have anemia. He is on oral 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s-Elliquis. I am consulted for upper endoscopy to assess for peptic ulcer disease Past Medical History Past Medical History (Chronic Problems): Chronic Problems (Last Updated 05/02/17 @ 13:28 by Melania Mendoza) 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) History of coronary artery stent placement (Chronic ~06/08/16) SARA-RCA 06/15/2011, SARA-OM1 06/30/2011, SARA-LAD 08/20/2014, SARA-Prox- RCA 06/08/2016 Atherosclerosis of coronary artery of [place] heart without angina pectoris (Chronic) SARA-RCA 06/15/2011, SARA-OM1 06/30/2011, SARA-LAD 08/20/2014, SARA-Prox- RCA 06/08/2016 Paroxysmal atrial fibrillation (Chronic) Hypertension (Chronic) Hyperlipidemia (Chronic) Type II diabetes mellitus (Chronic) Hyperkalemia (Chronic) Chronic renal failure, stage 3 (moderate) (Chronic) STEMI (ST elevation myocardial infarction) (Chronic) Anemia of chronic renal failure, stage 3 (moderate) (Chronic) Obesity (BMI 30.0-34.9) (Chronic) Systolic CHF, acute on chronic (Chronic) Cardiomyopathy, ischemic (Chronic) Allergies atorvastatin calcium [From Lipitor] Allergy (Verified 05/09/17 19:31) Unknown diltiazem Allergy (Verified 05/09/17 19:31) Angioedema Home Medications: Ambulatory Orders Medication Instructions Recorded Aspirin [Aspirin, Baby] 81 mg PO DAILY@0800 12/28/14 Insulin Glargine,Hum.rec.anlog 60 unit SQ DAILY 12/28/14 [Lantus] Pravastatin [Pravachol] 40 mg PO QHS 12/28/14 Amiodarone HCl 200 mg PO DAILY 04/09/16 Carvedilol [Coreg (Beta Thalia)] 25 mg PO BID 04/10/16 Clopidogrel Bisulfate [Plavix] 75 mg PO DAILY 01/14/17 Losartan Potassium [Cozaar] 100 mg PO DAILY 01/14/17 Furosemide [Lasix] 40 mg PO BID@1000,1800 #90 tab 03/15/17 hydralazine 50 mg tablet 75 mg PO TID #135 tab 04/15/17 apixaban 2.5 mg tablet 2.5 mg PO BID #180 tab 04/20/17 Isosorbide Mononitrate [Imdur] 60 mg PO QHS 05/09/17 Surgical History: - - PCI. Psychiatric History: No pertinent psych hx, - - unknow - pt is intubated and unable to give hx. No family present Smoking Status: Former smoker - *Family History Maternal History Items: No pertinent history Paternal History Items: No pertinent history Review of Systems Constitutional: Reports: Malaise Cardiovascular: Reports: Chest Pain Respiratory: Denies: Cough, Shortness of breath at rest, Sputum production Gastrointestinal: Reports: Abdominal Pain Patient Problems: Active and Suspected Problems (Last Updated 05/02/17 @ 13:28 by Melania Mendoza) Abdominal pain (Acute) Chest pain (Acute) - Physical Exam General: Alert, Oriented x3 HEENT: Atraumatic, PERRLA, EOMI, Normocephalic Neck: Supple, No JVD Lungs: Diminished, - - coarse Cardiovascular: Regular rate, Regular Rhythm, Irregular Rate, - - distant Abdomen: Bowel Sounds Present, Soft, Tender - in the epigastrium Vital Signs Temp Pulse Resp BP Pulse Ox 98.2 F 71 18 134/93 H 94 05/11/17 09:15 05/11/17 09:15 05/11/17 09:15 05/11/17 09:15 05/11/17 09:15 Oxygen Delivery Method Room Air Weight: 87.8 kg Body Mass Index (BMI) 28.5 Intake and Output for Last 24 Hours 05/09/17 05/10/17 05/11/17 23:59 23:59 23:59 Intake Total 370 / 370 400 / 400 Output Total 800 / 800 800 / 800 Balance -430 / -430 -400 / -400 Laboratory Tests Past 24 Hrs 05/10/17 05/11/17 05/11/17 11:40 07:15 07:15 Sodium 139 Potassium 3.4 L Chloride 102 Carbon Dioxide 28.0 Anion Gap 9 BUN 23 H Creatinine 2.30 H Estim Creat Clear Calc 32.45 Est GFR (MDRD) Af Amer 37 L Est GFR (MDRD) Non-Af 31 L BUN/Creatinine Ratio 10.0 Glucose 100 Hemoglobin A1c 8.0 H Calcium 8.1 L Troponin I 0.10 H POC Glucose 05/11/17 05/11/17 05/10/17 07:10 00:49 22:36 POC Glucose 103 120 H 81 05/10/17 05/10/17 05/10/17 22:13 16:45 12:21 POC Glucose 56 L 132 H 233 H Assessment/Plan Active and Suspected Problems (Last Updated 05/02/17 @ 13:28 by Melania Mendoza) Abdominal pain (Acute) Chest pain (Acute) history is significant coronary artery disease, congestive heart failure, cardiomyopathy-epigastric and chest pain-negative recent stress test I plan to perform upper endoscopy. The patient understands the risks, benefits, alternatives and consents to the procedure. He was maintained nothing by mouth. His cardiac disease and cardiomyopathy increases his procedural risk.
--- NOTE | 2017-05-11 12:46 | PCM.OPRPT ---
Report of Operation Date of Procedure: 05/11/17 Pre-Operative Diagnosis: EPIGASTRIC PAIN Post-Operative Diagnosis: MILD GASTRITIS, SIGNIFICANT DISTAL ESOPHAGITIS Surgery/Procedure Performed:: EGD WITH BIOPSY production crew supervisor: None Type of Anesthesia:: MAC Anesthesiologist: Luis Miguel Carlson - ASA3 Specimen's removed: GASTRIC, ESOPHAGEAL Description of Procedure: The patient was brought to the endoscopy suite. Sign in was performed verifying patient, site, planned procedure, critical nursing information, the patient was monitored with cardiac, pulse oximetric, and blood pressure monitoring devices. Monitored anesthetic care was provided for sedation. Following IV sedation and after the oropharynx was sprayed with Cetacaine spray, a video gastroscope was inserted in the oropharynx and advanced down the esophagus without difficulty. The scope was advanced through the stomach, through the pylorus through the duodenum to the proximal jejunum.the jejunum and duodenum appeared unremarkable. As the scope was withdrawn. There was mild gastritis in the antral region. Biopsy was obtained at this area for H. pylori and pathology. As the scope was withdrawn. There was an area of moderate erosive gastritis along the greater curvature of the stomach with no signs of recent bleeding. The scope was retroflexed. The GE junction appeared lax without signs of true hiatal hernia. There were no signs of marginal ulceration. The patient had relatively significant distal erosive esophagitis. Multiple biopsies were taken of the area. The more proximal esophagus appeared unremarkable. The patient tolerated the procedure well and was brought to recovery in stable condition. given his symptoms and feel this is most likely be significant erosive esophagitis-I recommended both proton pump inhibitors and Carafate. This was communicated to the primary service. - Admit VTE Documentation VTE Present on Admission: No VTE Mechan Device Prophylaxis: SCD's
--- NOTE | 2017-05-11 12:51 | OP.PCM_ITS ---
Report of Operation Date of Procedure: 05/11/17 Pre-Operative Diagnosis: EPIGASTRIC PAIN Post-Operative Diagnosis: MILD GASTRITIS, SIGNIFICANT DISTAL ESOPHAGITIS Surgery/Procedure Performed:: EGD WITH BIOPSY residence life director: None Type of Anesthesia:: MAC Anesthesiologist: Luis Miguel Carlson - ASA3 Specimen's removed: GASTRIC, ESOPHAGEAL Description of Procedure: The patient was brought to the endoscopy suite. Sign in was performed verifying patient, site, planned procedure, critical nursing information, the patient was monitored with cardiac, pulse oximetric, and blood pressure monitoring devices. Monitored anesthetic care was provided for sedation. Following IV sedation and after the oropharynx was sprayed with Cetacaine spray , a video gastroscope was inserted in the oropharynx and advanced down the esophagus without difficulty. The scope was advanced through the stomach, through the pylorus through the duodenum to the proximal jejunum.the jejunum and duodenum appeared unremarkable. As the scope was withdrawn. There was mild gastritis in the antral region. Biopsy was obtained at this area for H. pylori and pathology. As the scope was withdrawn. There was an area of moderate erosive gastritis along the greater curvature of the stomach with no signs of recent bleeding. The scope was retroflexed. The GE junction appeared lax without signs of true hiatal hernia. There were no signs of marginal ulceration. The patient had relatively significant distal erosive esophagitis. Multiple biopsies were taken of the area. The more proximal esophagus appeared unremarkable. The patient tolerated the procedure well and was brought to recovery in stable condition. given his symptoms and feel this is most likely be significant erosive esophagitis-I recommended both proton pump inhibitors and Carafate. This was communicated to the primary service. - Admit VTE Documentation VTE Present on Admission: No VTE Mechan Device Prophylaxis: SCD's
[2017-05-11] MEDS: Aspirin 81 MG TAB.CHEW PO (14:28)
[2017-05-11] MEDS: Carvedilol 25 MG Tablet PO ×2 (14:28→23:22)
[2017-05-11] MEDS: Furosemide 40 MG Tablet PO (14:28)
[2017-05-11] MEDS: Losartan Potassium 100 MG Tablet PO (14:28)
[2017-05-11] MEDS: Amiodarone 200 MG Tablet PO (14:28)
[2017-05-11 14:46] LABS: Bedside Glucose 54 mg/dL (70-110)
[2017-05-11 15:11] LABS: Bedside Glucose 107 mg/dL (70-110)
[2017-05-11 16:09] LABS: Creatine Kinase MB 0 % (0-3); Creatine Kinase MM 99 % (97-100); Creatine Kinase,Total,Serum 221 U/L (24-204); Macro II 0 % (Not Observed)
[2017-05-11 17:04] LABS: Creatine Kinase BB 0 % (0); Macro I 1 % (Not Observed)
[2017-05-11] MEDS: Sucralfate 1 GM Tablet PO ×2 (17:37→23:20)
--- NOTE | 2017-05-11 17:49 | NURSING ---
Update given to daughter, Stella at this time.
[2017-05-11 22:06] LABS: Bedside Glucose 138 mg/dL (70-110)
[2017-05-11] MEDS: Pantoprazole Sodium 40 MG Tablet PO (23:19)
[2017-05-11] MEDS: Pravastatin 40 MG Tablet PO (23:20)
[2017-05-11] MEDS: Isosorbide Mononitrate 60 MG Tablet PO (23:22)
[2017-05-12] VITALS (13 sets, daily range): BP systolic 132–137; BP diastolic 73–74; PULSE 49–58; RESP 18; TEMP 36.6–36.7; O2SAT 94–97
[2017-05-12] MEDS: Sucralfate 1 GM Tablet PO ×2 (06:41→11:02)
[2017-05-12 06:45] LABS: Bedside Glucose 146 mg/dL (70-110)
[2017-05-12] MEDS: Aspirin 81 MG TAB.CHEW PO (08:34)
[2017-05-12] MEDS: Amiodarone 200 MG Tablet PO (09:51)
[2017-05-12] MEDS: Losartan Potassium 100 MG Tablet PO (09:52)
[2017-05-12] MEDS: Furosemide 40 MG Tablet PO (09:52)
[2017-05-12] MEDS: Pantoprazole Sodium 40 MG Tablet PO ×2 (09:52→16:53)
[2017-05-12 10:01] LABS: Anion Gap 11 (5-15); BUN 36 mg/dL (7-18); BUN/Creat Ratio 12.7 RATIO (10-20); Calcium,Total 8.2 mg/dL (8.5-10.1); Chloride 97 mmol/L (98-107); Creatinine, Serum 2.83 mg/dL (0.70-1.30); EST Glomerular Filtration Rate 24 mL/min (>60); Est Glom Filt Rate - Afr Amer 29 mL/min (>60); Estimated Creatinine Clearance 26.37 ml/min; Glucose 183 mg/dL (74-106); Potassium 3.6 mmol/L (3.5-5.1); Sodium Level 135 mmol/L (136-145); Thyroid Stim Hormone (TSH) 1.45 uIU/mL (0.358-3.74)
[2017-05-12 10:11] LABS: Bedside Glucose 250 mg/dL (70-110)
--- NOTE | 2017-05-12 14:08 | PCM.DC ---
- Discharge Diagnoses Current Active Problems: Current Active and Chronic Problems (Last Updated 05/02/17 @ 13:28 by Melania Mendoza) Chest pain (Acute) Abdominal pain (Acute) Discharge Activity: Return to Normal Activity Instructions: ED Chest Pain NonCardiac Allergies/Adverse Reactions: Allergies atorvastatin calcium [From Lipitor] Allergy (Verified 05/09/17 19:31) Unknown diltiazem Allergy (Verified 05/09/17 19:31) Angioedema Medications to take at Discharge Aspirin [Aspirin, Baby] 81 mg PO DAILY@0800 12/28/14 Insulin Glargine,Hum.rec.anlog [Lantus] 60 unit SQ DAILY 12/28/14 Pravastatin [Pravachol] 40 mg PO QHS 12/28/14 Amiodarone HCl 200 mg PO DAILY 04/09/16 Clopidogrel Bisulfate [Plavix] 75 mg PO DAILY 01/14/17 Losartan Potassium [Cozaar] 100 mg PO DAILY 01/14/17 Furosemide [Lasix] 40 mg PO BID@1000,1800 #90 tab 03/15/17 hydralazine 50 mg tablet 75 mg PO TID #135 tab 04/15/17 Isosorbide Mononitrate [Imdur] 60 mg PO QHS 05/09/17 Apixaban [Eliquis] 2.5 mg PO BID #180 tab 05/12/17 Carvedilol [Coreg] 6.25 mg PO BID #60 tab 05/12/17 Pantoprazole Sodium [Protonix] 40 mg PO BID #60 tab 05/12/17 The following prescriptions were given: Apixaban [Eliquis] 2.5 mg PO BID #180 tab Carvedilol [Coreg] 6.25 mg PO BID #60 tab Pantoprazole Sodium [Protonix] 40 mg PO BID #60 tab Primary Care Physician: Jennifer Spicer DO [Primary Care Provider] - Proposed Discharge Date: 05/12/17
--- NOTE | 2017-05-12 14:11 | PCM.DC.SUM ---
Discharge Date and Diagnosis - Problem List Patient Problems: Active and Suspected Problems (Last Updated 05/02/17 @ 13:28 by Melania Mendoza) Chest pain (Acute) Abdominal pain (Acute) Date of Admission: 05/09/17 Date of Discharge: 05/12/17 - Primary Discharge Diagnosis Active and Suspected Problems (Last Updated 05/02/17 @ 13:28 by Melania Mendoza) Chest pain (Acute) Abdominal pain (Acute) - Secondary Discharge Diagnosis Chronic Problems (Last Updated 05/02/17 @ 13:28 by Melania Mendoza) 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) History of coronary artery stent placement (Chronic ~06/08/16) SARA-RCA 06/15/2011, SARA-OM1 06/30/2011, SARA-LAD 08/20/2014, SARA-Prox- RCA 06/08/2016 Atherosclerosis of coronary artery of [place] heart without angina pectoris (Chronic) SARA-RCA 06/15/2011, SARA-OM1 06/30/2011, SARA-LAD 08/20/2014, SARA-Prox- RCA 06/08/2016 Paroxysmal atrial fibrillation (Chronic) Hypertension (Chronic) Hyperlipidemia (Chronic) Type II diabetes mellitus (Chronic) Hyperkalemia (Chronic) Chronic renal failure, stage 3 (moderate) (Chronic) STEMI (ST elevation myocardial infarction) (Chronic) Anemia of chronic renal failure, stage 3 (moderate) (Chronic) Obesity (BMI 30.0-34.9) (Chronic) Systolic CHF, acute on chronic (Chronic) Cardiomyopathy, ischemic (Chronic) Hospital Course and Treatment Operations: None Summary of Care Provided: 1. Epigastric pain; severe distal esophagitis by EGD, the patient was discharged on Protonix 40 mg twice daily. 2. Atypical chest pain; stress test negative for ischemia . 3. history intracardiac thrombus; the patient is on Eliquis . 4. Atrial fibrillation the patient is on Amiodarone and anticoagulation. 5. cardiomyopathy ; he does not appear to have decompensated HF. This is a 66-year-old male with past medical history of left atrial thrombus, pulmonary HTN, CAD, paroxysmal afib, HTN, DMII and CKD III admitted for abdominal pain and chest pain. Regarding his chest pain , he underwent a stress test that was negative for ischemia. He described epigastric pain radiating to her back. His pancreatic enzymes and CT scan of the abdomen did not show any evidence of pancreatitis. He is on Eliquis, Plavix and aspirin for his cardiac problems mentioned above. He is unaware of melanotic stools. José of general surgery was consulted and the patient underwent EGD on 05/06/2017 was treated severe distal esophagitis, and was started on PPI. His symptoms improved and he was discharged home in a stable condition symptom-free. Physical exam at the time of discharge; vital signs were stable. He was alert and oriented to time place and person. He did not appear to be any form of distress. S1 and S2 heard no murmur or gallop Lung exam was clear to auscultation with no adventitious sounds. Abdomen was soft nontender with normal bowel sounds. extremity exam did not reveal any edema, palpable pulses bilaterally. Neurologic exam was grossly intact. Discharge Diet: No Restrictions Home Medications: Medications to take at Discharge Aspirin [Aspirin, Baby] 81 mg PO DAILY@0800 12/28/14 Insulin Glargine,Hum.rec.anlog [Lantus] 60 unit SQ DAILY 12/28/14 Pravastatin [Pravachol] 40 mg PO QHS 12/28/14 Amiodarone HCl 200 mg PO DAILY 04/09/16 Clopidogrel Bisulfate [Plavix] 75 mg PO DAILY 01/14/17 Losartan Potassium [Cozaar] 100 mg PO DAILY 01/14/17 Furosemide [Lasix] 40 mg PO BID@1000,1800 #90 tab 03/15/17 hydralazine 50 mg tablet 75 mg PO TID #135 tab 04/15/17 Isosorbide Mononitrate [Imdur] 60 mg PO QHS 05/09/17 Apixaban [Eliquis] 2.5 mg PO BID #180 tab 05/12/17 Carvedilol [Coreg] 6.25 mg PO BID #60 tab 05/12/17 Pantoprazole Sodium [Protonix] 40 mg PO BID #60 tab 05/12/17 Following Prescrptions Were Given to Patient: Apixaban [Eliquis] 2.5 mg PO BID #180 tab Carvedilol [Coreg] 6.25 mg PO BID #60 tab Pantoprazole Sodium [Protonix] 40 mg PO BID #60 tab Primary Care Physician: Jennifer Spicer DO [Primary Care Provider] - Within 2 Weeks Patient Instructions: ED Chest Pain NonCardiac Disposition: Home Patient Condition:: Good Meaningful Use Info Meaningful Use Diagnoses (Choose all that apply): None applicable Code Visit Inpatient E&M: 71957 [facility]
--- NOTE | 2017-05-12 16:59 | PCM.PN.SRG ---
Patient Problems: Active and Suspected Problems (Last Updated 05/02/17 @ 13:28 by Melania Mendoza) Chest pain (Acute) Abdominal pain (Acute) Subjective: feeling much better clinically - Physical Exam Abdomen: Bowel Sounds Present, Soft, Non Tender Vital Signs Temp Pulse Resp BP Pulse Ox 97.8 F 49 L 18 133/73 H 97 05/12/17 13:21 05/12/17 15:15 05/12/17 13:21 05/12/17 13:58 05/12/17 13:21 Oxygen Flow Rate 2 Oxygen Delivery Method Room Air Weight: 87.8 kg Body Mass Index (BMI) 28.5 Finger Stick Blood Glucose 213 Intake and Output for Last 24 Hours 05/10/17 05/11/17 05/12/17 23:59 23:59 23:59 Intake Total 370 / 370 1400 / 1400 950 / 950 Output Total 800 / 800 1450 / 1450 750 / 750 Balance -430 / -430 -50 / -50 200 / 200 Laboratory Tests Past 24 Hrs 05/09/17 05/12/17 23:53 09:10 Sodium 135 L Potassium 3.6 Chloride 97 L Carbon Dioxide 27.0 Anion Gap 11 BUN 36 H Creatinine 2.83 H Estim Creat Clear Calc 26.37 Est GFR (MDRD) Af Amer 29 L Est GFR (MDRD) Non-Af 24 L BUN/Creatinine Ratio 12.7 Glucose 183 H Calcium 8.2 L CK Isoenzymes 221 H CK-MM (CK-3) 99 CK-MB (CK-2) 0 CK-BB (CK-1) 0 Macro CK 1 H TSH 1.45 POC Glucose 05/12/17 05/12/17 05/11/17 09:58 06:39 22:01 POC Glucose 250 H 146 H 138 H Assessment/Plan Active and Suspected Problems (Last Updated 05/02/17 @ 13:28 by Melania Mendoza) Chest pain (Acute) Abdominal pain (Acute) history is significant coronary artery disease, congestive heart failure, cardiomyopathy-epigastric and chest pain-negative recent stress test Upper endoscopy - mild gastritis, but rather significant distal erosive esophagitis. Multiple biopsies obtained. Patient was turned on double dose Protonix and Carafate. He notes very significant improvement in his symptoms. I would like to have him follow-up my office in one week for pathology results. I would plan for follow-up endoscopy in one month.
--- NOTE | 2017-05-13 11:00 | CASEMGMT ---
DEVYN HUTCHINS received call from [facility] for patient in regards to prior authorization that was completed 05/12/17 by this DEVYN HUTCHINS for patient's Protonix. Authorization was approved. DEVYN HUTCHINS called patient's daughter Stella per patients request yesterday to update on approval of prior authorization. Stella voiced understanding and stated that they would get Protonix filled today. DEVYN HUTCHINS left insurance authorization phone number with daughter if questions should arise. DEVYN HUTCHINS also left contact information should patient and family have any issues with authorization.
== END 2017-05-12 17:05 | disposition home or self-care (01) | DRG 392 ==
LOC: ED 20:01 → MS3 23:07
PROVIDERS: Anesthesiology; Surgery; Admitting Provider Internal Medicine; Emergency Provider Emergency Medicine; Family Provider Family Medicine; PCP Family Medicine; Visit Provider Internal Medicine
PROC: 0DJ08ZZ Inspection of Upper Intestinal Tract, Via Natural or Artificial Opening Endoscopic (ICD-10-PCS; CPT 43235; principal; 2017-05-11 09:55)
DX: K20.8 Other esophagitis (principal); I13.0 Hypertensive heart and chronic kidney disease with heart failure and stage 1 through stage 4 chronic kidney disease, or unspecified chronic kidney disease; I27.21 Secondary pulmonary arterial hypertension; I50.22 Chronic systolic (congestive) heart failure; N18.3 Chronic kidney disease, stage 3 (moderate); K29.60 Other gastritis without bleeding; E78.5 Hyperlipidemia, unspecified; E66.9 Obesity, unspecified; I25.5 Ischemic cardiomyopathy; I25.10 Atherosclerotic heart disease of native coronary artery without angina pectoris; R07.89 Other chest pain; I51.3 Intracardiac thrombosis, not elsewhere classified; I48.0 Paroxysmal atrial fibrillation; Z87.891 Personal history of nicotine dependence; Z68.28 Body mass index [BMI] 28.0-28.9, adult; Z95.5 Presence of coronary angioplasty implant and graft; Z79.02 Long term (current) use of antithrombotics/antiplatelets; I25.2 Old myocardial infarction
CPT/HCPCS: 36415; 51702; 71046; 74176; 74177; 78452; 80048; 80053; 80061; 80307; 81001; 82550; 82552; 82962; 83036; 83605; 83690; 83735; 84443; 84484; 85025; 88305; 88313; 93005; 93017; 93306; 97802; 99285; A9500; Q9957; Q9967; A4216; J2405; J2785

== ENCOUNTER → 2017-05-14 12:57 | Outpatient (CLI) | payer MEDICARE, SELFPAY ==
[2016-06-12 14:02] VITALS: BMI 29.7
[2017-05-09 23:32] VITALS: BMI 28.5
[2017-05-12 13:58] VITALS: BP 133/73
[2017-05-14 15:41] LABS: Hematocrit 42.8 % (40-54); Hemoglobin 14.3 g/dl (13.0-16.5); Mean Corp Hgb Conc 33.4 g/gl (32-36); Mean Corpuscular Hgb 29.3 pg (27.0-32.0); Mean Corpuscular Volume 87.7 fL (80-94); Platelet Count 251 K/mm3 (150-450); RBC Distribution Width CV 14.1 % (11.6-14.6); RBC Distribution Width SD 44.5 fl (35.1-43.9); Red Blood Count 4.88 M/mm3 (4.6-6.2); White Blood Count 7.9 K/mm3 (4.4-11.0)
[2017-05-14 15:43] LABS: Scan Indicated on CBC? Y/N NO
[2017-05-14 15:55] LABS: ALB/GLOB Ratio 0.9 RATIO (0.9-2.4); AST(SGOT) 27 U/L (15-37); Alanine Aminotransfer ALT/SGPT 39 U/L (16-61); Albumin, Serum 3.7 g/dL (3.2-5.0); Alkaline Phosphatase 88 U/L (45-117); Anion Gap 10 (5-15); BUN 28 mg/dL (7-18); BUN/Creat Ratio 14.5 RATIO (10-20); Calcium,Total 8.2 mg/dL (8.5-10.1); Chloride 98 mmol/L (98-107); Creatinine, Serum 1.93 mg/dL (0.70-1.30); EST Glomerular Filtration Rate 37 mL/min (>60); Est Glom Filt Rate - Afr Amer 45 mL/min (>60); Globulin 3.9 g/dL (2.2-4.2); Glucose 271 mg/dL (74-106); Potassium 3.7 mmol/L (3.5-5.1); Protein, Total 7.6 g/dL (6.4-8.2); Sodium Level 134 mmol/L (136-145)
== END ==
PROVIDERS: Internal Medicine Cardiovascular Disease; Family Provider Family Medicine; PCP Family Medicine; Visit Provider Family Medicine
DX: N28.9 Disorder of kidney and ureter, unspecified (principal); E11.9 Type 2 diabetes mellitus without complications; Z79.4 Long term (current) use of insulin; E83.42 Hypomagnesemia; F17.200 Nicotine dependence, unspecified, uncomplicated; I25.10 Atherosclerotic heart disease of native coronary artery without angina pectoris; I50.20 Unspecified systolic (congestive) heart failure; I21.4 Non-ST elevation (NSTEMI) myocardial infarction; I23.6 Thrombosis of atrium, auricular appendage, and ventricle as current complications following acute myocardial infarction; I25.5 Ischemic cardiomyopathy; I48.1 Persistent atrial fibrillation; I25.2 Old myocardial infarction; I10 Essential (primary) hypertension; Z95.5 Presence of coronary angioplasty implant and graft
CPT/HCPCS: 36415; 80053; 85027

== ENCOUNTER → 2017-05-24 14:10 | Outpatient (CLI) | payer MEDICARE, SELFPAY ==
[2016-06-12 14:02] VITALS: BMI 29.7
[2017-05-24 16:36] LABS: Anion Gap 7 (5-15); BUN 22 mg/dL (7-18); BUN/Creat Ratio 14.4 RATIO (10-20); Calcium,Total 8.8 mg/dL (8.5-10.1); Chloride 102 mmol/L (98-107); Creatinine, Serum 1.53 mg/dL (0.70-1.30); EST Glomerular Filtration Rate 49 mL/min (>60); Est Glom Filt Rate - Afr Amer 59 mL/min (>60); Glucose 199 mg/dL (74-106); Potassium 3.6 mmol/L (3.5-5.1); Sodium Level 137 mmol/L (136-145)
== END ==
PROVIDERS: Family Provider Family Medicine; PCP Family Medicine; Visit Provider Family Medicine
DX: N28.9 Disorder of kidney and ureter, unspecified (principal)
CPT/HCPCS: 36415; 80048

== ENCOUNTER → 2017-06-14 14:03 | Outpatient (CLI) | payer MEDICARE, SELFPAY ==
[2016-06-12 14:02] VITALS: BMI 29.7
[2017-06-14 14:07] LABS: Bacteria 0 SEEN /hpf (None Seen); Mucous, Urine 0 SEEN /hpf (<or=2+); Red Blood Cells-Urine 0 SEEN /hpf (0-5); Squamous Epithelial Cells - UA 0 SEEN /hpf (0-5); White Blood Cells 0 SEEN /hpf (0-5)
[2017-06-14 15:44] LABS: Color, Urine Yellow (Yellow); Glucose, Dipstick 250 mg/dl (Normal); Hematocrit 45.6 % (40-54); Hemoglobin 15.8 g/dl (13.0-16.5); Ketone-Dipstick Negative (Negative); Leukocyte Esterase-Dipstick Negative /ul (Negative); Mean Corp Hgb Conc 34.6 g/gl (32-36); Mean Corpuscular Hgb 29.7 pg (27.0-32.0); Mean Corpuscular Volume 85.7 fL (80-94); Mean Platelet Vol. 9.7 fl (6.2-12.0); Nitrite-Dipstick Negative (Negative); Occult Blood-Urine 10 /ul (Negative); Platelet Count 268 K/mm3 (150-450); Protein-Dipstick 100 mg/dl (Negative); RBC Distribution Width CV 14.3 % (11.6-14.6); RBC Distribution Width SD 44.4 fl (35.1-43.9); Red Blood Count 5.32 M/mm3 (4.6-6.2); Urine Bilirubin Dipstick Negative (Negative); Urine Clarity Clear (Clear); Urine Urobilinogen Normal (Normal); White Blood Count 9.4 K/mm3 (4.4-11.0)
[2017-06-14 15:51] LABS: Scan Indicated on CBC? Y/N NO
[2017-06-14 16:00] LABS: Anion Gap 10 (5-15); BUN 19 mg/dL (7-18); BUN/Creat Ratio 10.7 RATIO (10-20); Calcium,Total 8.9 mg/dL (8.5-10.1); Chloride 97 mmol/L (98-107); Creatinine, Serum 1.78 mg/dL (0.70-1.30); EST Glomerular Filtration Rate 41 mL/min (>60); Est Glom Filt Rate - Afr Amer 50 mL/min (>60); Glucose 243 mg/dL (74-106); Potassium 3.4 mmol/L (3.5-5.1); Sodium Level 136 mmol/L (136-145)
[2017-06-14 16:39] LABS: International Normalized Ratio 1.1; Prothrombin Time (Protime)PT. 13.8 SECONDS (11.7-14.9)
== END ==
PROVIDERS: Family Provider Family Medicine; PCP Family Medicine; Visit Provider Internal Medicine Cardiovascular Disease
DX: I25.5 Ischemic cardiomyopathy (principal); I50.23 Acute on chronic systolic (congestive) heart failure; N18.3 Chronic kidney disease, stage 3 (moderate); D63.1 Anemia in chronic kidney disease; I48.0 Paroxysmal atrial fibrillation; I25.2 Old myocardial infarction; N28.9 Disorder of kidney and ureter, unspecified; R57.0 Cardiogenic shock
CPT/HCPCS: 36415; 80048; 81001; 85027; 85610

== ENCOUNTER 2017-06-22 17:42 | Emergency (ER) | payer MEDICARE, SELFPAY ==
[2016-06-12 14:02] VITALS: BMI 29.7
[2017-06-22] VITALS (7 sets, daily range): BP systolic 160–199; BP diastolic 93–110; PULSE 73–77; RESP 16–23; TEMP 36.9; O2SAT 96–98; BMI 25.8
--- NOTE | 2017-06-22 18:27 | EKG12_ITS ---
Test Reason : CHEST PAIN Blood Pressure : / mmHG Vent. Rate : 075 BPM Atrial Rate : 075 BPM P-R Int : 204 ms QRS Dur : 094 ms QT Int : 474 ms P-R-T Axes : 064 -23 027 degrees QTc Int : 529 ms Sinus rhythm with Premature atrial complexes Inferior infarct , age undetermined Anterolateral infarct , age undetermined Prolonged QT Abnormal ECG Confirmed by BELKIS METZ, JUANJOSE ([id number]), news editor CANELO DIETRICH ([id number]) on 06/25/2017 1:57:58 PM Referred By: Confirmed By:JUANJOSE TAMAYO MD
--- NOTE | 2017-06-22 18:27 | RAD_ITS ---
STUDY: X-RAY CHEST REASON FOR EXAM: Male, 66 years old. Chest pain. History of A. fib TECHNIQUE: Single AP portable view of the chest. COMPARISON: 05/09/2017 FINDINGS: The lungs are clear and expanded. There is no demonstrated pleural abnormality. There is borderline cardiomegaly. Normal mediastinum and loco. Normal visualized pulmonary arteries. Normal visualized aortic arch and descending thoracic aorta. Normal visualized thoracic spine. Normal visualized ribs, clavicles, and shoulders. There is no demonstrated abnormality of the visualized soft tissue structures of the upper abdomen. RAD/Chest 1 View (Portable) IMPRESSION: Borderline cardiomegaly. Lungs are clear otherwise. Electronically Signed: Ronald Ahn DO at 19:06 EDT Tel , Service support ,
[2017-06-22] MEDS: hydrALAZINE 20 MG/ML Vial 10 MG IV (19:06)
[2017-06-22 19:13] LABS: Absolute Lymphocyte Count 0.88 X10^3/ul (0.83-4.51); Absolute Neutrophil Count 7.3 X10^3/uL (2.0-7.7); Basophil# 0.02 X10^3/uL; Basophil% 0.2 % (0-1); Eosinophil# 0.06 X10^3/uL; Eosinophils% 0.7 % (0-5); Hematocrit 44.4 % (40-54); Lymphocyte # 0.88 X10^3/ul (4.0); Lymphocyte % 9.7 % (19-41); Mean Corp Hgb Conc 33.8 g/gl (32-36); Mean Corpuscular Hgb 29.4 pg (27.0-32.0); Mean Corpuscular Volume 87.1 fL (80-94); Mean Platelet Vol. 9.4 fl (6.2-12.0); Monocyte# 0.83 X10^3/uL; Monocyte% 9.1 % (0-10); Neutrophil # 7.27 X10^3/uL (2.7-7.7); Neutrophil % 79.9 % (47-70); POSITIVE COUNT NO; POSITIVE DIFFERENTIAL NO; POSITIVE MORPHOLOGY NO; Platelet Count 210 K/mm3 (150-450); RBC Distribution Width CV 14.4 % (11.6-14.6); RBC Distribution Width SD 45.9 fl (35.1-43.9); White Blood Count 9.1 K/mm3 (4.4-11.0)
--- NOTE | 2017-06-22 19:18 | NURSING ---
WAITING TO SEE THE PT BP, AND WILL DETERMINE IF WE WILL GIVE THE OTHER DOSE OF APRESOLINE.
[2017-06-22 19:28] LABS: Anion Gap 7 (5-15); BUN 23 mg/dL (7-18); BUN/Creat Ratio 12.3 RATIO (10-20); Calcium,Total 8.7 mg/dL (8.5-10.1); Chloride 99 mmol/L (98-107); Creatinine, Serum 1.87 mg/dL (0.70-1.30); EST Glomerular Filtration Rate 39 mL/min (>60); Est Glom Filt Rate - Afr Amer 47 mL/min (>60); Estimated Creatinine Clearance 39.91 ml/min; Glucose 237 mg/dL (74-106); Potassium 3.4 mmol/L (3.5-5.1); Sodium Level 136 mmol/L (136-145)
--- NOTE | 2017-06-22 19:37 | NURSING ---
WILL GIVE 10 SEE HOW THE PT DOES AND THEN WILL GIVE THE REST.
--- NOTE | 2017-06-22 20:53 | ED.VISSUMM ---
- ER Visit Summary Date of Service: 06/22/17 Chief Complaint: Chest pain History of Present Illness: The patient is a 66 M who states that he is to get a defibrillator placed on . He went off of his Plavix as directed on Wednesday night. Wednesday he began to experience hypertension with systolic readings in the 190-200 range. He was having intermittent left breast pain and arm pain. He states that simply was a pain. It lasted maybe an hour and resolved for several hours. Today it was much worse. He states that he has a lot of anxiety regarding the placement of this defibrillator. Review of the chart showed that he had numerous stents placed in his heart as well as CABG. Ejection fraction is 20%. He sees Dr. Butler. Amongst his medications include amiodarone Eliquis Plavix and aspirin. Physical Examination: Blood pressure 199/102 temperature 98.4 heart rate 74 respirations are 21 pulse ox 98% Gen: Well-nourished well-developed Head: Normocephalic atraumatic Eyes: Perrl EOMI ENT: TMs clear no rhinorrhea moist mucous membranes Neck: Supple no lymphadenopathy no JVD nontender CVS: Regular rate rhythm no murmurs normal S1-S2 Respiratory: No distress clear to auscultation bilaterally chest nontender Abdomen: Soft nontender nondistended normal bowel sounds no masses Back: Nontender Extremity: Nontender no edema Skin: Normal color no rash Neuro: alert orientated ?3 CN II-XII intact normal strength sensation reflexes gait cerebellar Psych: Very anxious Test Results: EKG showed sinus rhythm with a rate of 75 with frequent PACs. CBC normal. Chemistries glucose 237 BUN 23 creatinine 1.87. Troponin 0 0.02. Chest x-ray showed cardiomegaly. Emergency Department Course and Treatment: Received hydralazine with good reduction of his blood pressure. He also received a dose of Ativan. Spoke with Dr. Butler who knows the patient well. We will adjust his Imdur to 90 mg twice a day and also provided with some Ativan. Patient states he wishes to stay in the hospital until so that he does not change his mind about getting the defibrillator. I informed him that that is not a viable option. His family understands this he does not. I informed the patient that if he does not show up for his defibrillator placement that would be a very poor decision. Impression: 1. Chest pain 2. Hypertensive urgency 3. Anxiety This note was generated with [employer] dictation software. It may contain incorrect words, spelling, and punctuation that were not noted in review of the chart prior to signing ED Disposition - Plan for ED Patient: Disposition: Home or Assisted Living Chief Complaint: Chest Pain Instructions: ED Stress React, ED Hypertension Conf Out Of Control Prescriptions: Isosorbide Mononitrate [Imdur] 90 mg PO BID #30 tab Lorazepam [Ativan] 0.5 mg PO TID PRN #10 tab PRN Reason: Anxiety Referrals: Jennifer Spicer DO [Primary Care Provider] - Marco Antonio Butler MD [STAFF PHYSICIAN] - Keep Jaz appointment
[2017-06-22] MEDS: LORazepam 1 MG Tablet PO (21:09)
--- NOTE | 2017-06-22 21:13 | ED.RN ---
IV DC'ED, CATHETER INTACT, SMALL GAUZE DRESSING PLACED. DISCHARGE INSTRUCTIONS GIVEN TO AND REVIEWED WITH PATIENT AND FAMILY, ALL DENY QUESTIONS OR CONCERNS AND VOICE UNDERSTANDING OF DISCHARGE INSTRUCTIONS. PT AMBULATES OUT OF ROOM WITHOUT DIFFICULTY.
== END 2017-06-22 21:14 | disposition home or self-care (01) ==
PROVIDERS: Emergency Provider Emergency Medicine; Family Provider Family Medicine; PCP Family Medicine
DX: I16.0 Hypertensive urgency (principal); I10 Essential (primary) hypertension; F41.1 Generalized anxiety disorder; F43.0 Acute stress reaction; R07.9 Chest pain, unspecified; I25.10 Atherosclerotic heart disease of native coronary artery without angina pectoris; I48.91 Unspecified atrial fibrillation; Z79.01 Long term (current) use of 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s; Z79.82 Long term (current) use of aspirin; Z79.899 Other long term (current) drug therapy; Z95.1 Presence of aortocoronary bypass graft; Z95.5 Presence of coronary angioplasty implant and graft
CPT/HCPCS: 36415; 71045; 80048; 84484; 85025; 93005; 96374; 99285; A4216

== ENCOUNTER 2017-06-24 12:47 | Day surgery (SDC) | payer MEDICARE, SELFPAY ==
[2016-06-12 14:02] VITALS: BMI 29.7
[2017-06-23 13:23] VITALS: BMI 29.2
[2017-06-24] VITALS (12 sets, daily range): BP systolic 123–150; BP diastolic 69–91; PULSE 55–60; RESP 16–18; TEMP 36.6; O2SAT 93–96
[2017-06-24] MEDS: Cefazolin 2 GM in 0.9% Normal Saline 100 ML IV (07:00)
--- NOTE | 2017-06-24 15:04 | PCM.OP.BLANK ---
Operative Report Date of Procedure: 06/24/17 Preoperative diagnosis implantation of ischemic cardiomyopathy with EF 25%; NYHA CLass III; ICD for primary prevention Postoperative diagnosis same as above After informed consent and IV antibiotics the patient was brought to the [place] catheterization laboratory. The left side of the chest was prepped and draped in the usual sterile manner. The patient was sedated with intermittent boluses of IV Versed fentanyl and propofol as well as subcutaneous 1% lidocaine. An incision was made inferior to the clavicle to accommodate the size of the hardware device. The pocket was created using blunt and Bovie dissection. Hemostasis was obtained. Using the Seldinger technique the axillary vein was cannulated once and a guidewire was advanced under fluoroscopic guidance. Over the guidewire a sheath was advanced. Through this sheath, the electrode was positioned under fluoroscopic guidance into the right ventricle and was actively fixated. Once actively fixated, the lead was tested to check for proper sensing, capture threshold, impedance and to exclude diaphragmatic stimulation. Once the lead was implanted and all electrical parameters were confirmed to be functioning normally with appropriate values, the leads was then sutured to the pectoralis muscle with 2-0 silk on the Silastic collar ?2. The sponge and needle count were correct. Hemostasis was obtained. Antibiotic solution was used to flush the pocket. The new device was brought to the field. The lead was placed in the appropriate position of the header of the device and were secured by the setscrews and confirmed by the tug test. The device is a single coil, single chamber [place] Sci ICD. The device and the leads were then placed in the pocket. Pocket was closed with a deep layer of running 2-0 Vicryl, superficial layer of running 4-0 Vicryl and skin with Steri-Strips that were covered with a rolled 4 x 4's and Tegaderm. The patient left the lab with the device programmed to chronic parameters. There were no complications. Lead and device serial and model numbers are available in the chart documents provided by the device company signs sales representative procedure summary.
[2017-06-24 17:21] LABS: Bedside Glucose 246 mg/dL (70-110)
--- NOTE | 2017-06-24 18:25 | RAD_ITS ---
STUDY: X-RAY CHEST REASON FOR EXAM: Male, 66 years old. ICD placement TECHNIQUE: Single frontal view COMPARISON: June 22, 2017 FINDINGS: Interval placement of a left-sided pacemaker with a single lead. The lungs are clear and expanded. There is no demonstrated pleural abnormality. Normal size heart. Normal mediastinum and loco. Normal visualized pulmonary arteries. Normal visualized aortic arch and descending thoracic aorta. Mild degenerative changes of the thoracic spine. Normal visualized ribs, clavicles, and shoulders. There is no demonstrated abnormality of the visualized soft tissue structures of the upper abdomen. RAD/Chest 1 View (Portable) IMPRESSION: Normal x-ray examination of the chest. Electronically Signed: Santos Al DO at 19:15 EDT Tel [phone], Service support ,
[2017-06-24] MEDS: Acetaminophen 325 MG Tablet PO (21:02)
[2017-06-24] MEDS: Pravastatin 40 MG Tablet PO (22:33)
[2017-06-24] MEDS: hydrALAZINE 50 MG Tablet 75 MG PO (22:33)
[2017-06-24] MEDS: Carvedilol 12.5 MG Tablet PO (22:33)
[2017-06-24] MEDS: Isosorbide Mononitrate 60 MG Tablet PO (22:34)
[2017-06-24] MEDS: APIXABAN 2.5 MG TABLET PO (22:34)
[2017-06-24] MEDS: Pantoprazole Sodium 40 MG Tablet PO (22:34)
[2017-06-24 22:45] LABS: Bedside Glucose 271 mg/dL (70-110)
[2017-06-25 02:58] VITALS: BP 130/71; PULSE 53; RESP 16; TEMP 36.5; O2SAT 96
[2017-06-25] MEDS: Acetaminophen 325 MG Tablet PO ×2 (03:04→09:36)
[2017-06-25 03:38] VITALS: PULSE 54
--- NOTE | 2017-06-25 05:55 | RAD_ITS ---
STUDY: X-RAY CHEST REASON FOR EXAM: Male, 66 years old. Status post pacemaker insertion, exclude pneumothorax. TECHNIQUE: PA and lateral views of the chest. COMPARISON: 06/24/2017 FINDINGS: There is an anterior chest wall single chamber permanent pacemaker. There is no demonstrated pneumothorax. The lungs are clear and expanded. There is no demonstrated pleural abnormality. Normal size heart. Normal mediastinum and loco. Normal visualized pulmonary arteries. Normal visualized aortic arch and descending thoracic aorta. There are diffuse degenerative changes of the visualized thoracic spine. Normal visualized ribs, clavicles, and shoulders. There is no demonstrated abnormality of the visualized soft tissue structures of the upper abdomen. RAD/Chest PA and Lateral IMPRESSION: No acute cardiopulmonary disease. No significant interval change. Electronically Signed: Tiffanie Lynch MD at 7:40 EDT , Service support ,
[2017-06-25 06:35] VITALS: PULSE 51
[2017-06-25] MEDS: hydrALAZINE 50 MG Tablet 75 MG PO (06:35)
[2017-06-25 07:10] LABS: Bedside Glucose 217 mg/dL (70-110)
[2017-06-25 07:11] VITALS: PULSE 52
--- NOTE | 2017-06-25 08:42 | PCM.DC ---
You will use the following diet at home:: No restrictions Discharge Activity: May Not Drive, - - follow instructions given by Yesika in regards to how to manage your wound and dressing May shower in (days): 1 - follow instructions given by Yesika in regards to how to manage your dressing and bathing instructions Lifting Restrictions: follow instructions given by Yesika for restrictions on what to do with your n Call your doctor if your incision/area has: Continuous Slow Oozing, Sudden Increased Bleeding, Increased Pain/ Swelling, Increased Redness, Foul Smelling Discharge, Swelling at the incision site Call your doctor if you observe: Fever of 101 or Higher, Shortness of breath, Dizziness, Fainting spells, Chest pain, Prolonged hiccoughing, Increased palpitations (irregular heartbeat) Remove Dressing in (days):: 3 Cleanse incision/area with: Do not get Incision Wet, Keep Dressing Clean & Dry Additional Dressing/Incision Instructions:: When dressing in removed, wash and dry incision. Keep covered with light bandage if it is rubbing against your clothing. Do not cover the incision with an airtight bandage. Change your bandage daily if you use one Do not remove steri strips. They will fall off on their own. Additional Instructions: any concerns or signs and symptoms call the doctors office or doctors registry at [phone] at once. resume your Plavix and eliquis on Wednesday. Allergies/Adverse Reactions: Allergies atorvastatin calcium [From Lipitor] Allergy (Verified 06/22/17 17:43) Unknown diltiazem Allergy (Verified 06/22/17 17:43) Angioedema Medications to take at Discharge Aspirin [Aspirin, Baby] 81 mg PO DAILY@0800 12/28/14 Insulin Glargine,Hum.rec.anlog [Lantus] 60 unit SQ DAILY 12/28/14 Pravastatin [Pravachol] 40 mg PO QHS 12/28/14 Amiodarone HCl 200 mg PO DAILY 04/09/16 Losartan Potassium [Cozaar] 100 mg PO DAILY 01/14/17 hydralazine 50 mg tablet 75 mg PO TID #135 tab 04/15/17 Apixaban [Eliquis] 2.5 mg PO BID #180 tab 05/12/17 furosemide 40 mg tablet 40 mg PO BID #60 tab 05/26/17 pantoprazole 40 mg tablet,delayed release 40 mg PO BID #60 tab 05/26/17 carvedilol 12.5 mg tablet 12.5 mg PO BID 06/14/17 Isosorbide Mononitrate [Isosorbide Mononitrate ER] 60 mg PO BID 06/23/17 clopidogrel 75 mg tablet 75 mg PO DAILY #30 tab 06/23/17 Primary Care Physician: Jennifer Spicer DO [Primary Care Provider] - Please Follow Up With: Huong Parikh When: as your were instructed. Proposed Discharge Date: 06/25/17
[2017-06-25 08:46] VITALS: BP 142/75; PULSE 65; RESP 18; TEMP 36.8; O2SAT 95
[2017-06-25] MEDS: Carvedilol 12.5 MG Tablet PO (08:54)
[2017-06-25] MEDS: Amiodarone 200 MG Tablet PO (08:54)
[2017-06-25] MEDS: Aspirin 81 MG TAB.CHEW PO (08:54)
[2017-06-25] MEDS: Isosorbide Mononitrate 60 MG Tablet PO (08:55)
[2017-06-25] MEDS: Furosemide 40 MG Tablet PO (08:55)
[2017-06-25] MEDS: Clopidogrel Bisulfate 75 MG Tablet PO (08:55)
[2017-06-25] MEDS: Pantoprazole Sodium 40 MG Tablet PO (08:55)
[2017-06-25] MEDS: APIXABAN 2.5 MG TABLET PO (08:55)
--- NOTE | 2017-06-25 09:25 | PCM.PACRNU ---
Pacer Nurse Hospital Visit Notes: Single Chamber ICD Evaluation: 1st day post implant check completed at bedside PCU#124. Interrogation shows no VT/VF episodes since implant. left pectoral pocket/incision DSD intact w/o drainage noted and no hematoma. Mild ecchymosis noted. Presenting rhythm shows Sinus Bradycardia @ 55 bpm. Battery longevity approx >8 yrs. 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 Lead impedance and sensing remain stable. No parameter changes made. Counters cleared. Wound care instructions, f/u appt and left arm restrictions given to pt. Dr. London and Yuliet Nayak PA-C notified of above. Gen Parikh RN - Pacer Check Procedure Procedures: 61878 ICD Eval Single
[2017-06-25 11:06] VITALS: PULSE 60
[2017-06-25 11:31] LABS: Bedside Glucose 377 mg/dL (70-110)
== END 2017-06-25 08:11 | disposition home or self-care (01) ==
LOC: CLSP 12:47 → PCU 15:46
PROVIDERS: Family Provider Family Medicine; PCP Family Medicine; Visit Provider Internal Medicine Cardiovascular Disease
DX: I25.5 Ischemic cardiomyopathy (principal); I25.10 Atherosclerotic heart disease of native coronary artery without angina pectoris; I13.0 Hypertensive heart and chronic kidney disease with heart failure and stage 1 through stage 4 chronic kidney disease, or unspecified chronic kidney disease; N18.3 Chronic kidney disease, stage 3 (moderate); I50.23 Acute on chronic systolic (congestive) heart failure; Z87.891 Personal history of nicotine dependence; I27.21 Secondary pulmonary arterial hypertension; I25.2 Old myocardial infarction; Z95.5 Presence of coronary angioplasty implant and graft; Z95.1 Presence of aortocoronary bypass graft; E11.22 Type 2 diabetes mellitus with diabetic chronic kidney disease; Z79.4 Long term (current) use of insulin; D63.1 Anemia in chronic kidney disease; E78.5 Hyperlipidemia, unspecified; E87.5 Hyperkalemia; K20.9 Esophagitis, unspecified; E66.9 Obesity, unspecified; Z68.29 Body mass index [BMI] 29.0-29.9, adult; Z79.82 Long term (current) use of aspirin; Z79.899 Other long term (current) drug therapy; Z82.49 Family history of ischemic heart disease and other diseases of the circulatory system; Z00.6 Encounter for examination for normal comparison and control in clinical research program
CPT/HCPCS: 33249; 71045; 71046; 82962; 93641; 99152; 99153; J3010; J7040; J7050; C1894

== ENCOUNTER → 2017-09-15 09:54 | Outpatient (CLI) | payer MEDICARE, SELFPAY ==
[2016-06-12 14:02] VITALS: BMI 29.7
[2017-09-15 12:17] LABS: ALB/GLOB Ratio 0.9 RATIO (0.9-2.4); AST(SGOT) 31 U/L (15-37); Alanine Aminotransfer ALT/SGPT 53 U/L (16-61); Albumin, Serum 3.5 g/dL (3.2-5.0); Alkaline Phosphatase 83 U/L (45-117); Anion Gap 9 (5-15); BUN 26 mg/dL (7-18); BUN/Creat Ratio 13.8 RATIO (10-20); Calcium,Total 8.2 mg/dL (8.5-10.1); Chloride 98 mmol/L (98-107); Creatinine, Serum 1.88 mg/dL (0.70-1.30); EST Glomerular Filtration Rate 39 mL/min (>60); Est Glom Filt Rate - Afr Amer 47 mL/min (>60); Globulin 4.1 g/dL (2.2-4.2); Glucose 243 mg/dL (74-106); Potassium 3.9 mmol/L (3.5-5.1); Protein, Total 7.6 g/dL (6.4-8.2); Sodium Level 137 mmol/L (136-145)
== END ==
LOC: BFHLAB 09:55
PROVIDERS: Family Provider Family Medicine; PCP Family Medicine; Visit Provider Family Medicine
DX: N28.9 Disorder of kidney and ureter, unspecified (principal); E11.9 Type 2 diabetes mellitus without complications
CPT/HCPCS: 36415; 80053

== ENCOUNTER 2017-11-08 10:19 | Inpatient (IN) | payer MEDICARE, SELFPAY ==
[2016-06-12 14:02] VITALS: BMI 29.7
[2017-11-08] VITALS (17 sets, daily range): BP systolic 147–221; BP diastolic 104–139; PULSE 72–125; RESP 18–33; TEMP 36.6–37.1; O2SAT 6–98; BMI 32.1; BMI 31.3
--- NOTE | 2017-11-08 10:45 | EKG12_ITS ---
Test Reason : CP/SOB Blood Pressure : / mmHG Vent. Rate : 124 BPM Atrial Rate : 441 BPM P-R Int : 000 ms QRS Dur : 126 ms QT Int : 366 ms P-R-T Axes : 000 -47 094 degrees QTc Int : 525 ms Atrial fibrillation Left axis deviation Left bundle branch block Abnormal ECG Confirmed by MEL METZ, REINA ([id number]), book or script editor CANELO DIETRICH ([id number]) on 11/10/2017 10:05:31 AM Referred By: ANNA Confirmed By:REINA LEAL MD
--- NOTE | 2017-11-08 10:45 | RAD_ITS ---
STUDY: X-RAY CHEST REASON FOR EXAM: Male, 67 years old. Cough, shortness of breath TECHNIQUE: Portable upright chest COMPARISON: 06/25/2017 FINDINGS: Left pectoral single lead AICD device, stable. Bilateral perihilar and infrahilar interstitial prominence and mild peribronchial cuffing. Mild fissural thickening in the right midlung. No apparent effusion or pneumothorax and no dense focal infiltrate. Low inspiratory volumes. Normal cardiomediastinal silhouette, loco and pleural margins. No acute osseous or upper abdominal process. RAD/Chest 1 View (Portable) IMPRESSION: Nonspecific interstitial prominence in the lungs bilaterally. This may be compressive changes of the lungs due to hypoinflation in the setting of low inspiratory volumes. There is however peribronchial cuffing with some minimal fissural thickening. Consider mild edema or mild pneumonitis. Electronically Signed: Víctor Garcia, at 11:15 EDT Tel , Service support ,
--- NOTE | 2017-11-08 10:50 | ED.DCSUM_ITS ---
- ER Visit Summary Date of Service: 11/08/17 Chief Complaint: Shortness of breath History of Present Illness: The patient is a 67 M who has shortness of breath. He states it started last night. He states he had dyspnea with exertion. Resting does make it better. He did have a slight cough with no sputum. He did have some left-sided chest aching as well. He had an ICD placed in June. He does not wear any home oxygen. Denies any history of asthma or COPD. He also has a history of atrial fibrillation. Physical Examination: Vital signs reviewed. HEENT exam unremarkable. Heart is irregularly irregular and tachycardic without murmurs. Lungs have diminished sounds in the bases bilaterally. Abdomen is soft and nontender. Extremities reveal no edema. Skin exam normal. Neurologic exam normal. Test Results: EKG was atrial fibrillation with a rate of 124. Nonspecific ST and T-wave changes. Chest x-ray reveals interstitial prominence with mild edema. Hemoglobin normal. White blood cell count 15. Creatinine 1.8. Troponin is normal. His BNP 382. Emergency Department Course and Treatment: Patient was treated with metoprolol and has his heart rate decreased to down around 100. He states he is feeling better. He is still requiring 3 L of oxygen to maintain 93%. I feel like this requires admission. He will be given a dose of Lasix for diuresis. He was discussed with the hospitalist for admission Treatment Plan: [] Disposition: Admit Impression: A. fib with RVR, CHF exacerbation This note was generated with [employer] dictation software. It may contain incorrect words, spelling, and punctuation that were not noted in review of the chart prior to signing ED Disposition - Plan for ED Patient: Chief Complaint: Shortness of Breath Referrals: Jennifer Spicer DO [Primary Care Provider] -
[2017-11-08] MEDS: Metoprolol Tartrate 5 MG/5 ML Vial IV ×3 (11:05→11:36)
[2017-11-08 11:08] LABS: Absolute Lymphocyte Count 0.68 X10^3/ul (0.83-4.51); Absolute Neutrophil Count 13.1 X10^3/uL (2.0-7.7); Basophil# 0.05 X10^3/uL; Basophil% 0.3 % (0-1); Eosinophil# 0.08 X10^3/uL; Eosinophils% 0.5 % (0-5); Hematocrit 48.2 % (40-54); Hemoglobin 15.8 g/dl (13.0-16.5); Lymphocyte # 0.68 X10^3/ul (4.0); Lymphocyte % 4.5 % (19-41); Mean Corp Hgb Conc 32.8 g/gl (32-36); Mean Corpuscular Hgb 29.5 pg (27.0-32.0); Mean Corpuscular Volume 89.9 fL (80-94); Mean Platelet Vol. 9.6 fl (6.2-12.0); Monocyte# 0.92 X10^3/uL; Monocyte% 6.2 % (0-10); Neutrophil % 87.7 % (47-70); Platelet Count 243 K/mm3 (150-450); RBC Distribution Width CV 14.7 % (11.6-14.6); RBC Distribution Width SD 47.9 fl (35.1-43.9); Red Blood Count 5.36 M/mm3 (4.6-6.2)
[2017-11-08] MEDS: Albuterol 2.5 MG/3 ML VIAL.NEB. INHALATION (11:09)
[2017-11-08 11:11] LABS: POSITIVE COUNT NO; POSITIVE DIFFERENTIAL NO; POSITIVE MORPHOLOGY NO
[2017-11-08 11:17] LABS: Anion Gap 6 (5-15); BUN 28 mg/dL (7-18); BUN/Creat Ratio 15.6 RATIO (10-20); Calcium,Total 8.4 mg/dL (8.5-10.1); Chloride 105 mmol/L (98-107); EST Glomerular Filtration Rate 40 mL/min (>60); Est Glom Filt Rate - Afr Amer 49 mL/min (>60); Estimated Creatinine Clearance 40.91 ml/min; Glucose 216 mg/dL (74-106); Potassium 3.8 mmol/L (3.5-5.1); Sodium Level 138 mmol/L (136-145)
[2017-11-08 11:36] LABS: BNP,B-Type NATRIURETIC PEPTIDE 382.3 pg/mL (0-100)
[2017-11-08 11:40] LABS: Base Excess -2 mmol/L (-2 to +2); Bicarbonate 22.7 mmol/L (22-26); Blood Gas Specimen Type ART; O2 Delivery Device Nasal Can; PO2 66 mmHG (75-100); SITE R Brachial; SO2 93 % (95-99); Time Given 1128; Total Carbon Dioxide 24 mmol/L; pCO2 35.3 mmHg (35-45); pH 7.42 (7.35-7.45)
--- NOTE | 2017-11-08 12:05 | NURSING ---
DR MUNOZ IN ER
--- NOTE | 2017-11-08 12:18 | PCM.HP.STD ---
Problem List (1) Shortness of breath Status: Acute History of Present Illness Date of Admission: 11/08/17 Chief Complaint: shortness of breath The patient is a 67 year old M with a PMH of hypertension, Afib, CAD and NSTEMI s/p stents, type 2 diabetes mellitus , CKD3 and hyperlipidemia. He was admitted with a complaint of shortness of breath of one day duration. Symptoms started night before presentation, with associated orthopnea and PND. He also had left sided, pressure like chest pain, with no aggravating or relieving factors. He decided to come to the ED,where vitals were BP of 163/114, WI of 102, RR of 27 and saturating at 94% on 3L of ooxygen. EKG showed Afib with HR of 124. He received a dose of metoprolol with improvement in his HR.CXR showed interstitial prominence with edema, and initial troponin was negative. BNP was 382. He is being admitted to be managed for Afib and CHF exacerbation. [] Past Medical History Past Medical History (Chronic Problems): Chronic Problems (Last Reviewed 05/24/17 @ 15:10 by Melania Mendoza) Presence of implantable cardioverter-defibrillator (ICD) (Chronic) Type 2 diabetes mellitus without complications (Chronic) DDD (degenerative disc disease) (Chronic) 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) History of coronary artery stent placement (Chronic ~06/08/16) SARA-RCA 06/15/2011, SARA-OM1 06/30/2011, SARA-LAD 08/20/2014, SARA-Prox- RCA 06/08/2016 Atherosclerosis of coronary artery of [place] heart without angina pectoris (Chronic) SARA-RCA 06/15/2011, SARA-OM1 06/30/2011, SARA-LAD 08/20/2014, SARA-Prox- RCA 06/08/2016 Paroxysmal atrial fibrillation (Chronic) Hypertension (Chronic) Hyperlipidemia (Chronic) Type II diabetes mellitus (Chronic) Hyperkalemia (Chronic) Chronic renal failure, stage 3 (moderate) (Chronic) STEMI (ST elevation myocardial infarction) (Chronic) Anemia of chronic renal failure, stage 3 (moderate) (Chronic) Obesity (BMI 30.0-34.9) (Chronic) Systolic CHF, acute on chronic (Chronic) Cardiomyopathy, ischemic (Chronic) Medical History: Medical History (Last Reviewed 05/24/17 @ 15:10 by Melania Mendoza) Esophagitis determined by endoscopy (Acute) Onset Date: ~05/06/17 K20.9 Type 2 diabetes mellitus without complications (Chronic) E11.9 DDD (degenerative disc disease) (Chronic) 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) I27.21 Atherosclerosis of coronary artery of [place] heart without angina pectoris (Chronic) I25.10 SARA-RCA 06/15/2011, SARA-OM1 06/30/2011, SARA-LAD 08/20/2014, SARA-Prox- RCA 06/08/2016 Paroxysmal atrial fibrillation (Chronic) I48.0 Hypertension (Chronic) I10 Hyperlipidemia (Chronic) E78.5 Type II diabetes mellitus (Chronic) E11.9 Hyperkalemia (Chronic) E87.5 Chronic renal failure, stage 3 (moderate) (Chronic) N18.3 STEMI (ST elevation myocardial infarction) (Chronic) Cardiogenic shock (Resolved) Onset Date: ~06/08/16 R57.0 Hypertensive emergency (Resolved) I16.1 Anemia of chronic renal failure, stage 3 (moderate) (Chronic) N18.3, D63.1 Obesity (BMI 30.0-34.9) (Chronic) E66.9 Systolic CHF, acute on chronic (Chronic) I50.23 Cardiomyopathy, ischemic (Chronic) I25.5 History of cardioversion Onset Date: ~04/10/16 Z98.890 01/14/15 (unsuccessful), 04/10/2016 Old myocardial infarction I25.2 inferior lateral and Anterior Apical Allergies atorvastatin calcium [From Lipitor] Allergy (Verified 11/08/17 10:23) Unknown diltiazem Allergy (Verified 11/08/17 10:23) Angioedema Home Medications: Ambulatory Orders Medication Instructions Recorded Aspirin [Aspirin, Baby] 81 mg PO DAILY@0800 12/28/14 Pravastatin [Pravachol] 40 mg PO QHS 12/28/14 Amiodarone HCl 200 mg PO DAILY 04/09/16 hydralazine 50 mg tablet 75 mg PO TID #135 tab 04/15/17 Apixaban [Eliquis] 2.5 mg PO BID #180 tab 05/12/17 furosemide 40 mg tablet 40 mg PO BID #60 tab 05/26/17 pantoprazole 40 mg tablet,delayed 40 mg PO BID #60 tab 05/26/17 release clopidogrel 75 mg tablet 75 mg PO DAILY #30 tab 06/23/17 losartan 100 mg tablet 100 mg PO QDAY #90 tab 07/02/17 carvedilol 25 mg tablet 25 mg PO BID #60 tab 08/11/17 isosorbide mononitrate ER 60 mg 90 mg PO BID #90 tab 10/04/17 tablet,extended release 24 hr Novolin 70-30 100 Unit/ml Vial 11/08/17 Surgical History: Surgical History (Last Updated 07/08/17 @ 09:33 by Huong Parikh) Presence of implantable cardioverter-defibrillator (ICD) (Chronic) Z95.810 History of coronary artery stent placement (Chronic) Onset Date: ~06/08/16 Z95.5 SARA-RCA 06/15/2011, SARA-OM1 06/30/2011, SARA-LAD 08/20/2014, SARA-Prox- RCA 06/08/2016 Surgical History: - - PCI. Psychiatric History: No pertinent psych hx, - - unknow - pt is intubated and unable to give hx. No family present Lives: With Family Smoking Status: Former smoker - *Family History Maternal Family History: Family History (Last Reviewed 05/24/17 @ 15:10 by Melania Mendoza) Brother Sudden cardiac History Items: No pertinent history Paternal Family History: Family History (Last Reviewed 05/24/17 @ 15:10 by Melania Mendoza) Brother Sudden cardiac History Items: No pertinent history Review of Systems Constitutional: Denies: Chills, Fever, Weight Change Eyes: Denies: Blurred vision HEENT: Denies: Head Aches, Sinus Congestion, Sinus Drainage Cardiovascular: Reports: Chest Pain, Chest Pressure, Orthopnea, Paroxysmal Noc. Dyspnea. Denies: Chest Tightness, Edema, Light Headedness, Palpitations, Syncope Respiratory: Reports: Shortness of Breath, Shortness of breath upon exertion. Denies: Cough, Shortness of breath at rest, Sputum production, Wheezing Gastrointestinal: Denies: Abdominal Pain, Nausea, Vomiting Genitourinary: Denies: Dysuria Musculoskeletal: Denies: Joint Pain, Joint Tenderness Skin: Denies: Rash, Wounds Neurological: Denies: Numbness, Tingling, Focal weakness Psychiatric: Denies: Anxiety, Depression, Homicidal Ideations, Suicidal Ideations Hematologic/ Lymphatic: Denies: Easy Bruising, Easy Bleeding VTE Information - Inpt Only VTE Present on Admission: No VTE Mechan Device Prophylaxis: None VTE Pharm Prophylaxis ordered?: Yes Patient Problems: Active and Suspected Problems (Last Reviewed 05/24/17 @ 15:10 by Melania Mendoza) Shortness of breath (Acute) - Physical Exam General: Alert, Oriented x3, Cooperative, No apparent distress HEENT: Atraumatic, PERRLA, EOMI, Normocephalic Oral: Moist Mucosa Neck: Supple, No JVD, Negative Carotid Bruits Lungs: - - has coarse crackles in mid and lower lung alejo bilaterally Cardiovascular: No murmurs, - - tachycardic, irregularly irregular Abdomen: Bowel Sounds Present, Soft, Non Tender, Non-Distended, No Hepato-splenomegaly Extremities: No clubbing, No edema, Capillary Refill Less than 3 Seconds Skin: No rashes, No breakdown Musculoskeletal: No Tenderness to Palpation of Joints or Extremities Lymphatic: No Cervical, Supraclavicular, or Inguinal Adenopathy Neurological: Cranial nerves II-XII grossly intact, Motor Exam 5/5 strength throughout Psych/Mental Status: Normal Affect, Alert and oriented to time, place, person, mood and affect Vital Signs Temp Pulse Resp BP Pulse Ox 98.7 F 106 H 22 H 147/110 H 94 11/08/17 10:20 11/08/17 12:12 11/08/17 12:12 11/08/17 12:12 11/08/17 12:12 Oxygen Flow Rate (L/min) 3 Oxygen Delivery Method Room Air Weight: 217 lb 9.54 oz Body Mass Index (BMI) 32.1 Finger Stick Blood Glucose 213 Laboratory Tests Past 24 Hrs 11/08/17 11/08/17 11/08/17 10:35 10:35 10:35 WBC 15.0 H RBC 5.36 Hgb 15.8 Hct 48.2 MCV 89.9 MCH 29.5 MCHC 32.8 RDW 14.7 H RDW Differential 47.9 H Plt Count 243 MPV 9.6 Immature Gran % (Auto) 0.800 Neut % (Auto) 87.7 H Lymph % (Auto) 4.5 L Dunn % (Auto) 6.2 Eos % (Auto) 0.5 Baso % (Auto) 0.3 Absolute Neuts (auto) 13.1 H Absolute Lymphs (auto) 0.68 L Total Counted Not Reportable Specimen Type Sample Site pH Bicarbonate Actual POC Total CO2 Base Excess O2 Saturation ABG pCO2 ABG pO2 Humberto Test O2 Delivery Device Liter Flow Blood Gas Notified Whom Blood Gas Notified Time Sodium 138 Potassium 3.8 Chloride 105 Carbon Dioxide 27.0 Anion Gap 6 BUN 28 H Creatinine 1.80 H Estim Creat Clear Calc 40.91 Est GFR (MDRD) Af Amer 49 L Est GFR (MDRD) Non-Af 40 L BUN/Creatinine Ratio 15.6 Glucose 216 H Calcium 8.4 L Troponin I 0.017 B-Natriuretic Peptide 382.3 H 11/08/17 11:33 WBC RBC Hgb Hct MCV MCH MCHC RDW RDW Differential Plt Count MPV Immature Gran % (Auto) Neut % (Auto) Lymph % (Auto) Dunn % (Auto) Eos % (Auto) Baso % (Auto) Absolute Neuts (auto) Absolute Lymphs (auto) Total Counted Specimen Type ART Sample Site R Brachial pH 7.42 Bicarbonate Actual 22.7 POC Total CO2 24 Base Excess -2 O2 Saturation 93 L ABG pCO2 35.3 ABG pO2 66 L Humberto Test NA O2 Delivery Device Nasal Can Liter Flow 3.0 Blood Gas Notified Whom ED MD Blood Gas Notified Time 1128 Sodium Potassium Chloride Carbon Dioxide Anion Gap BUN Creatinine Estim Creat Clear Calc Est GFR (MDRD) Af Amer Est GFR (MDRD) Non-Af BUN/Creatinine Ratio Glucose Calcium Troponin I B-Natriuretic Peptide Diagnostic Data Chest X-Ray 11/08/17 10:45 IMPRESSION: Nonspecific interstitial prominence in the lungs bilaterally. This may be compressive changes of the lungs due to hypoinflation in the setting of low inspiratory volumes. There is however peribronchial cuffing with some minimal fissural thickening. Consider mild edema or mild pneumonitis. Electronically Signed: Víctor Garcia, at 11:15 EDT Tel , Service support , Assessment/Plan All Active Problems (Last Reviewed 05/24/17 @ 15:10 by Melania Mendoza) Shortness of breath (Acute) Esophagitis determined by endoscopy (Acute ~05/06/17) Cardiogenic shock (Resolved ~06/08/16) Hypertensive emergency (Resolved) Abdominal pain (Resolved) Acute pulmonary edema (Resolved) Acute respiratory failure (Resolved) Atrial fibrillation with RVR (Resolved) Chest pain (Resolved) Elevated troponin (Resolved) Metabolic acidosis (Resolved) 67 y/o male presenting with a one day history of shortness of breath and chest pain 1. Acute systolic CHF exacerbation has orthopnea nad PND in addition to SOB. BNP ~382.3 CXR showed interstitial edema will admit to PCU with cardiac telemetry hold oral lasix; start IV lasix 40mg bid also on beta janette, imdur and hydralazine last echo(05/23):normal LV size with severe segmental systolic dysfunction with EF of 25% and severe hypokinesia. Normal LA. since last echo was only ~ 6 months ago, will defer on new echo for now cardiology consult 2. Afib was tachycardic at time of presentation, with HR in 120s; HR now ~ 104 at time of review on metoprolol and PO amiodarone; will resume. will monitor, and start amiodarone drip if HR remains elevated on eliquis 2.5mg bid. 3. Chest pain, to rule out ACS has left sided chest pain which is pressure like and nonradiating initial tropnin negaitve. EKG showed no acute ST changes will cycle troponins SL nitroglycerin prn 4. CAD s/p stents on aspirin, plavix and beta janette as well as statin and midur 5. Hypertension on carvedilol, losartan 6. CKD 3 Cr is 1.8, which is is around his baseline will monitor 7. Diabetes ISS; accuchecks ACHs 8. DVT prophylaxis: on apixaban Code status:Full code patient and daughter counselled about different types of code status, namely full code, DNRCC and DNRCCA. Daughter is patient's POA. Patient elects to be full code. Face to face time: 14 mins Code Visit Inpatient E&M: 16584 Init Hosp L3 Procedures: 06982 Advncd Care Plan 30 Min
--- NOTE | 2017-11-08 12:37 | CM.ED ---
Social Work Note Into complete initial assessment. Introduced self and role at [facility]. The pt reports to live with his daughter, Cristy, in a two-story home. Bedroom and bathroom are on the second level. Pt primarily stays on 2nd floor as daughter will bring meals to him, but claims he is able to ambulate the stairs. Daughter confirms. DME consists of a cane, and daughter states he does not use it all the time but should. Confirms that his PCP is Dr. Spicer, and he is also established with Dr. Butler for cardiology. Preferred pharmacy is [facility] in [place]. Pt does have advanced directives and reports that his daughter, Cristy, is his HCPOA. Jackie Castellon, BULK DELIVERY DRIVER, CASTING MACHINE OPERATOR
[2017-11-08] MEDS: hydrALAZINE 50 MG Tablet 75 MG PO (14:05)
[2017-11-08] MEDS: Pantoprazole Sodium 40 MG Tablet PO ×2 (14:06→21:28)
[2017-11-08 16:51] LABS: Bedside Glucose 260 mg/dL (70-110)
[2017-11-08] MEDS: 0.9% NaCl Peripheral Flush Adult/Peds IV (17:48)
[2017-11-08] MEDS: Furosemide 40 MG/4 ML Vial IV (17:48)
--- NOTE | 2017-11-08 18:21 | PCM.CONS.C ---
Problem List (1) Shortness of breath Status: Acute (2) Paroxysmal atrial fibrillation Status: Chronic (3) CAD (coronary artery disease) Status: Chronic (4) History of coronary artery stent placement Status: Chronic Comment: SARA-RCA 06/15/2011, SARA-OM1 06/30/2011, SARA-LAD 08/20/2014, SARA-Prox- RCA 06/08/2016 (5) Cardiomyopathy, ischemic Status: Chronic (6) Systolic CHF, acute on chronic Status: Chronic (7) Presence of implantable cardioverter-defibrillator (ICD) Status: Chronic (8) Hyperlipidemia Status: Chronic Qualifiers: (9) Hypertension Status: Chronic Qualifiers: Hypertension type: essential hypertension (10) Type II diabetes mellitus Status: Chronic Qualifiers: Diabetes mellitus fdc insulin use: with fdc use Diabetes mellitus complication status: with unspecified complications Qualified Code(s): E11.8 - Type 2 diabetes mellitus with unspecified complications; Z79.4 - nursing home (current) use of insulin; Z79.4 - nursing home (current) use of insulin; Z79.4 - nursing home (current) use of insulin; Z79.4 - 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 He states yesterday evening he noted his cough, shortness of breath and dyspnea, difficulty sleeping in his bed and having to sleep upright, and this morning feeling as if he was wheezing. He states these of all been signs and symptoms in the past when he has started to have worsening CHF/pulmonary edema. Thus he presented to the hospital for further evaluation. He was noted to have his chronic cardiovascular conditions. He was subsequently placed in the PCU for further evaluation. He states he was treated with aerosols and had some improvement in his symptoms. He is also noted twinges of chest discomfort over his left chest. There is been no obvious near syncope or syncope. His device has not discharged. He states he has not developed any lower extremity peripheral pitting edema. His cardiac markers demonstrated underlying indeterminate troponin I level. His BNP level was 382.3. His ECG demonstrated atrial fibrillation with a left axis deviation and a left bundle branch block pattern. He does have an element of chronic renal insufficiency based on his elevated BUN and creatinine level. [] Past Medical History Allergies/Adverse Reactions: Allergies atorvastatin calcium [From Lipitor] Allergy (Verified 11/08/17 10:23) Unknown diltiazem Allergy (Verified 11/08/17 10:23) Angioedema Home Medications: Ambulatory Orders Medication Instructions Recorded Aspirin [Aspirin, Baby] 81 mg PO DAILY@0800 12/28/14 Pravastatin [Pravachol] 40 mg PO QHS 12/28/14 Amiodarone HCl 200 mg PO DAILY 04/09/16 hydralazine 50 mg tablet 75 mg PO TID #135 tab 04/15/17 Apixaban [Eliquis] 2.5 mg PO BID #180 tab 05/12/17 furosemide 40 mg tablet 40 mg PO BID #60 tab 05/26/17 pantoprazole 40 mg tablet,delayed 40 mg PO BID #60 tab 05/26/17 release clopidogrel 75 mg tablet 75 mg PO DAILY #30 tab 06/23/17 losartan 100 mg tablet 100 mg PO QDAY #90 tab 07/02/17 carvedilol 25 mg tablet 25 mg PO BID #60 tab 08/11/17 isosorbide mononitrate ER 60 mg 90 mg PO BID #90 tab 10/04/17 tablet,extended release 24 hr Novolin 70-30 100 Unit/ml Vial 11/08/17 Past Medical History (Chronic Problems): Chronic Problems (Last Reviewed 05/24/17 @ 15:10 by Melania Mendoza) CAD (coronary artery disease) (Chronic) Presence of implantable cardioverter-defibrillator (ICD) (Chronic) Type 2 diabetes mellitus without complications (Chronic) DDD (degenerative disc disease) (Chronic) 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) History of coronary artery stent placement (Chronic ~06/08/16) SARA-RCA 06/15/2011, SARA-OM1 06/30/2011, SARA-LAD 08/20/2014, SARA-Prox- RCA 06/08/2016 Atherosclerosis of coronary artery of [place] heart without angina pectoris (Chronic) SARA-RCA 06/15/2011, SARA-OM1 06/30/2011, SARA-LAD 08/20/2014, SARA-Prox- RCA 06/08/2016 Paroxysmal atrial fibrillation (Chronic) Hypertension (Chronic) Hyperlipidemia (Chronic) Type II diabetes mellitus (Chronic) Hyperkalemia (Chronic) Chronic renal failure, stage 3 (moderate) (Chronic) STEMI (ST elevation myocardial infarction) (Chronic) Anemia of chronic renal failure, stage 3 (moderate) (Chronic) Obesity (BMI 30.0-34.9) (Chronic) Systolic CHF, acute on chronic (Chronic) Cardiomyopathy, ischemic (Chronic) Surgical History: - - PCI. Psychiatric History: No pertinent psych hx, - - unknow - pt is intubated and unable to give hx. No family present - *Family History Maternal Family History: Family History (Last Reviewed 05/24/17 @ 15:10 by Melania Mendoza) Brother Sudden cardiac History Items: No pertinent history Paternal Family History: Family History (Last Reviewed 05/24/17 @ 15:10 by Melania Mendoza) Brother Sudden cardiac History Items: No pertinent history Lives: With Family Smoking Status: Former smoker Alcohol: None Drugs: None Review of Systems - Review of Systems General: Denies: Fever, Night Sweats, Fatigue Cardiovascular: Reports: Chest Discomfort, Chest Discomfort at Rest, Shortness of Breath, Shortness of Breath at Rest, Orthopnea, PND. Denies: Peripheral Edema, Palpitations, Lightheadedness, Dizziness, Near Syncope, Syncope Respiratory: Reports: Shortness of Breath. Denies: Cough, Sputum Production, Hemoptysis Gastrointestinal: Denies: Hematemesis, Hematochezia, Melena Genitourinary: Denies: Dysuria, Hematuria Skin: Denies: Rash Subjectve: This is a 67-year-old white male who appears to be resting comfortably in the chair at this time in no acute distress. Objective: Vital Signs Temp Pulse Resp BP Pulse Ox 98.7 F 109 H 18 170/110 H 98 11/08/17 17:43 11/08/17 17:43 11/08/17 17:43 11/08/17 17:43 11/08/17 17:43 Oxygen Flow Rate (L/min) 3 Oxygen Delivery Method Nasal Cannula Weight: 212 lb 1.355 oz Body Mass Index (BMI) 31.3 Intake and Output for Last 24 Hours 11/06/17 11/07/17 11/08/17 23:59 23:59 23:59 Intake Total 300 / 300 Balance 300 / 300 General: Awake, Alert, Oriented x 3, Cooperative, No Acute Distress HEENT: Atraumatic, Normocephalic, PERRL, EOMI, Sclera Non Icteric Oral: Moist Mucosa Neck: Supple, Good ROM, No JVD Lungs: Rales - Jigar Bases Cardiovascular: Irregular Rhythm, Normal S1, Normal S2 Abdomen: Bowel Sounds Present, Soft, Non Tender Extremities: No Cyanosis, No Clubbing, No edema 11/08/17 13:30: Troponin I 0.119 H Rhythm: Atrial fibrillation EKG: As noted above ECHO: 05/09/2017: Left ventricle reported as moderately severe segmental left ventricular systolic dysfunction with an estimated LVEF of 25% with mild TR and an estimated RV systolic pressure of 28 mmHg Stress Test: 05/10/2017: Pharmacologic stress nuclear imaging study: Reported as evidence of previous anterior apical infarct and distal inferolateral infarct with no obvious ischemia and an LVEF of 36% Cardiac catheterization/PCI: Per outpatient office visit note: Comment on previous RCA and OM SARA in 2011 and LAD SARA in 2014 ICD: [employer] Inogen EL model D140 serial #[id number] implanted on 06/24/2017 with the underlying characteristics of permanent atrial fibrillation with an ischemic mediated cardiomyopathy being a single-chamber ICD CXR: Preliminary evaluation: Findings potentially compatible with CHF/pulmonary edema: Please see official report Assessment/Plan 1. Shortness of breath The patient presents with recurrent shortness of breath. The etiology is concerning for his underlying cardiovascular status with the initiation of CHF/pulmonary edema. At the present time he is being monitored. He will continue his noninvasive evaluation. He will continue medical therapy. This will include IV diuretics. 2. Atrial fibrillation The patient appears to be remaining in atrial fibrillation. This appears to be permanent. He will need continued rate control therapy and anti-coagulant therapy. 3. CAD status post PCI The patient has undergone evaluation care in the past for his underlying CAD receiving PCI. He will continue to be monitored. His troponin I levels are indeterminate. Depending upon his clinical course he may need reassessment either noninvasively or invasively of his coronary status. In the interim he will continue medical therapy. 4. Ischemic mediated cardiomyopathy The patient does have an underlying ischemic mediated cardia myopathy with severely decreased LV systolic function. He has been treated medically. He is undergone revascularization therapy in the past. He also has an ICD in place. 5. Acute on chronic systolic CHF The patient presents with recurrent symptoms concerning for acute on chronic systolic CHF. He will continue with IV diuresis. His other medicines will be adjusted as needed. 6. ICD The patient has an ICD in place. He states it has not discharged. He will continue his medical management. 7. Hyperlipidemia The patient will continue lipid-lowering therapy. 8. Hypertension The patient's blood pressure is noted to be elevated. It is unclear whether this is the etiology for his recurrent symptoms and events. He will need continued aggressive antihypertensive therapy with adjustment of medications as needed. 9. Diabetes mellitus The patient will continue under the care of internal medicine. 10. Chronic renal insufficiency His renal function will have to be followed and taken into consideration during his hospital course especially if he requires further invasive cardiovascular evaluation or care. Comment: The patient's case was discussed and reviewed with the patient and his multiple family members present. This note was generated with [employer] dictation software. It may contain incorrect words, spelling, and punctuation that were not noted in checking the note before signing.
--- NOTE | 2017-11-08 18:25 | CON.PCM_ITS ---
Problem List (1) Shortness of breath Status: Acute (2) Paroxysmal atrial fibrillation Status: Chronic (3) CAD (coronary artery disease) Status: Chronic (4) History of coronary artery stent placement Status: Chronic Comment: SARA-RCA 06/15/2011, SARA-OM1 06/30/2011, SARA-LAD 2014, SARA-Prox- RCA 06/08/2016 (5) Cardiomyopathy, ischemic Status: Chronic (6) Systolic CHF, acute on chronic Status: Chronic (7) Presence of implantable cardioverter-defibrillator (ICD) Status: Chronic (8) Hyperlipidemia Status: Chronic Qualifiers: (9) Hypertension Status: Chronic Qualifiers: Hypertension type: essential hypertension (10) Type II diabetes mellitus Status: Chronic Qualifiers: Diabetes mellitus intermission coordinator insulin use: with intermission coordinator use Diabetes mellitus complication status: with unspecified complications Qualified Code(s) : E11.8 - Type 2 diabetes mellitus with unspecified complications; Z79.4 - intermediate card tender (current) use of insulin; Z79.4 - USP (current) use of insulin; Z79.4 - intermediate card tender (current) use of insulin; Z79.4 - USP (current) use of insulin (11) Chronic renal failure, stage 3 (moderate) Status: Chronic Reason for Consult Date of Consultation: 11/08/17 History of Present Illness: The patient is a 67 year old white male with a past medical history which is included underlying hyperlipidemia, hypertension, diabetes mellitus, atrial fibrillation, CAD, status post PCI, ischemic mediated cardiomyopathy, chronic systolic CHF, ICD placement, who presents for concerns of worsening shortness of breath and dyspnea. He states yesterday evening he noted his cough, shortness of breath and dyspnea, difficulty sleeping in his bed and having to sleep upright, and this morning feeling as if he was wheezing. He states these of all been signs and symptoms in the past when he has started to have worsening CHF/pulmonary edema. Thus he presented to the hospital for further evaluation. He was noted to have his chronic cardiovascular conditions. He was subsequently placed in the PCU for further evaluation. He states he was treated with aerosols and had some improvement in his symptoms. He is also noted twinges of chest discomfort over his left chest. There is been no obvious near syncope or syncope. His device has not discharged. He states he has not developed any lower extremity peripheral pitting edema. His cardiac markers demonstrated underlying indeterminate troponin I level. His BNP level was 382.3. His ECG demonstrated atrial fibrillation with a left axis deviation and a left bundle branch block pattern. He does have an element of chronic renal insufficiency based on his elevated BUN and creatinine level. [] Past Medical History Allergies/Adverse Reactions: Allergies atorvastatin calcium [From Lipitor] Allergy (Verified 11/08/17 10:23) Unknown diltiazem Allergy (Verified 11/08/17 10:23) Angioedema Home Medications: Ambulatory Orders Medication Instructions Recorded Aspirin [Aspirin, Baby] 81 mg PO DAILY@0800 12/28/14 Pravastatin [Pravachol] 40 mg PO QHS 12/28/14 Amiodarone HCl 200 mg PO DAILY 04/09/16 hydralazine 50 mg tablet 75 mg PO TID #135 tab 04/15/17 Apixaban [Eliquis] 2.5 mg PO BID #180 tab 05/12/17 furosemide 40 mg tablet 40 mg PO BID #60 tab 05/26/17 pantoprazole 40 mg tablet,delayed 40 mg PO BID #60 tab 05/26/17 release clopidogrel 75 mg tablet 75 mg PO DAILY #30 tab 06/23/17 losartan 100 mg tablet 100 mg PO QDAY #90 tab 07/02/17 carvedilol 25 mg tablet 25 mg PO BID #60 tab 08/11/17 isosorbide mononitrate ER 60 mg 90 mg PO BID #90 tab 10/04/17 tablet,extended release 24 hr Novolin 70-30 100 Unit/ml Vial 11/08/17 Past Medical History (Chronic Problems): Chronic Problems (Last Reviewed 05/24/17 @ 15:10 by Melania Mendoza) CAD (coronary artery disease) (Chronic) Presence of implantable cardioverter-defibrillator (ICD) (Chronic) Type 2 diabetes mellitus without complications (Chronic) DDD (degenerative disc disease) (Chronic) 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) History of coronary artery stent placement (Chronic ~06/08/16) SARA-RCA 06/15/2011, SARA-OM1 06/30/2011, SARA-LAD 08/20/2014, SARA-Prox- RCA 2016 Atherosclerosis of coronary artery of [place] heart without angina pectoris ( Chronic) SARA-RCA 06/15/2011, SARA-OM1 06/30/2011, SARA-LAD 08/20/2014, SARA-Prox- RCA 2016 Paroxysmal atrial fibrillation (Chronic) Hypertension (Chronic) Hyperlipidemia (Chronic) Type II diabetes mellitus (Chronic) Hyperkalemia (Chronic) Chronic renal failure, stage 3 (moderate) (Chronic) STEMI (ST elevation myocardial infarction) (Chronic) Anemia of chronic renal failure, stage 3 (moderate) (Chronic) Obesity (BMI 30.0-34.9) (Chronic) Systolic CHF, acute on chronic (Chronic) Cardiomyopathy, ischemic (Chronic) Surgical History: - - PCI. Psychiatric History: No pertinent psych hx, - - unknow - pt is intubated and unable to give hx. No family present - *Family History Maternal Family History: Family History (Last Reviewed 05/24/17 @ 15:10 by Melania Mendoza) Brother Sudden cardiac History Items: No pertinent history Paternal Family History: Family History (Last Reviewed 05/24/17 @ 15:10 by Melania Mendoza) Brother Sudden cardiac History Items: No pertinent history Lives: With Family Smoking Status: Former smoker Alcohol: None Drugs: None Review of Systems - Review of Systems General: Denies: Fever, Night Sweats, Fatigue Cardiovascular: Reports: Chest Discomfort, Chest Discomfort at Rest, Shortness of Breath, Shortness of Breath at Rest, Orthopnea, PND. Denies: Peripheral Edema, Palpitations, Lightheadedness, Dizziness, Near Syncope, Syncope Respiratory: Reports: Shortness of Breath. Denies: Cough, Sputum Production, Hemoptysis Gastrointestinal: Denies: Hematemesis, Hematochezia, Melena Genitourinary: Denies: Dysuria, Hematuria Skin: Denies: Rash Subjectve: This is a 67-year-old white male who appears to be resting comfortably in the chair at this time in no acute distress. Objective: Vital Signs Temp Pulse Resp BP Pulse Ox 98.7 F 109 H 18 170/110 H 98 11/08/17 17:43 11/08/17 17:43 11/08/17 17:43 11/08/17 17:43 11/08/17 17:43 Oxygen Flow Rate (L/min) 3 Oxygen Delivery Method Nasal Cannula Weight: 212 lb 1.355 oz Body Mass Index (BMI) 31.3 Intake and Output for Last 24 Hours 11/06/17 11/07/17 11/08/17 23:59 23:59 23:59 Intake Total 300 / 300 Balance 300 / 300 General: Awake, Alert, Oriented x 3, Cooperative, No Acute Distress HEENT: Atraumatic, Normocephalic, PERRL, EOMI, Sclera Non Icteric Oral: Moist Mucosa Neck: Supple, Good ROM, No JVD Lungs: Rales - Jigar Bases Cardiovascular: Irregular Rhythm, Normal S1, Normal S2 Abdomen: Bowel Sounds Present, Soft, Non Tender Extremities: No Cyanosis, No Clubbing, No edema 11/08/17 13:30: Troponin I 0.119 H Rhythm: Atrial fibrillation EKG: As noted above ECHO: 05/09/2017: Left ventricle reported as moderately severe segmental left ventricular systolic dysfunction with an estimated LVEF of 25% with mild TR and an estimated RV systolic pressure of 28 mmHg Stress Test: 05/10/2017: Pharmacologic stress nuclear imaging study: Reported as evidence of previous anterior apical infarct and distal inferolateral infarct with no obvious ischemia and an LVEF of 36% Cardiac catheterization/PCI: Per outpatient office visit note: Comment on previous RCA and OM SARA in 2011 and LAD SARA in 2014 ICD: [email or web address] EL model D140 serial #[id number] implanted on 2017 with the underlying characteristics of permanent atrial fibrillation with an ischemic mediated cardiomyopathy being a single-chamber ICD CXR: Preliminary evaluation: Findings potentially compatible with CHF/pulmonary edema: Please see official report Assessment/Plan 1. Shortness of breath The patient presents with recurrent shortness of breath. The etiology is concerning for his underlying cardiovascular status with the initiation of CHF/ pulmonary edema. At the present time he is being monitored. He will continue his noninvasive evaluation. He will continue medical therapy. This will include IV diuretics. 2. Atrial fibrillation The patient appears to be remaining in atrial fibrillation. This appears to be permanent. He will need continued rate control therapy and anti-coagulant therapy. 3. CAD status post PCI The patient has undergone evaluation care in the past for his underlying CAD receiving PCI. He will continue to be monitored. His troponin I levels are indeterminate. Depending upon his clinical course he may need reassessment either noninvasively or invasively of his coronary status. In the interim he will continue medical therapy. 4. Ischemic mediated cardiomyopathy The patient does have an underlying ischemic mediated cardia myopathy with severely decreased LV systolic function. He has been treated medically. He is undergone revascularization therapy in the past. He also has an ICD in place. 5. Acute on chronic systolic CHF The patient presents with recurrent symptoms concerning for acute on chronic systolic CHF. He will continue with IV diuresis. His other medicines will be adjusted as needed. 6. ICD The patient has an ICD in place. He states it has not discharged. He will continue his medical management. 7. Hyperlipidemia The patient will continue lipid-lowering therapy. 8. Hypertension The patient's blood pressure is noted to be elevated. It is unclear whether this is the etiology for his recurrent symptoms and events. He will need continued aggressive antihypertensive therapy with adjustment of medications as needed. 9. Diabetes mellitus The patient will continue under the care of internal medicine. 10. Chronic renal insufficiency His renal function will have to be followed and taken into consideration during his hospital course especially if he requires further invasive cardiovascular evaluation or care. Comment: The patient's case was discussed and reviewed with the patient and his multiple family members present. This note was generated with [employer] dictation software. It may contain incorrect words, spelling, and punctuation that were not noted in checking the note before signing.
[2017-11-08] MEDS: Isosorbide Mononitrate 30 MG Tablet 60 MG PO (18:46)
[2017-11-08] MEDS: Carvedilol 25 MG Tablet PO (18:46)
[2017-11-08] MEDS: Clopidogrel Bisulfate 75 MG Tablet PO (18:48)
[2017-11-08] MEDS: Amiodarone 200 MG Tablet PO (18:48)
[2017-11-08] MEDS: hydrALAZINE 50 MG Tablet 100 MG PO (21:27)
[2017-11-08] MEDS: Pravastatin 40 MG Tablet PO (21:27)
[2017-11-08] MEDS: APIXABAN 2.5 MG TABLET PO (21:28)
[2017-11-08 23:15] LABS: Bedside Glucose 268 mg/dL (70-110)
[2017-11-09] VITALS (15 sets, daily range): BP systolic 121–164; BP diastolic 70–103; PULSE 80–126; RESP 18–20; TEMP 36.3–36.8; O2SAT 93–96
[2017-11-09] MEDS: hydrALAZINE 50 MG Tablet 100 MG PO ×3 (05:41→22:20)
[2017-11-09 06:49] LABS: Absolute Lymphocyte Count 1.28 X10^3/ul (0.83-4.51); Basophil# 0.03 X10^3/uL; Basophil% 0.3 % (0-1); Eosinophil# 0.09 X10^3/uL; Hemoglobin 13.5 g/dl (13.0-16.5); Lymphocyte # 1.28 X10^3/ul (4.0); Lymphocyte % 13.5 % (19-41); Mean Corp Hgb Conc 32.9 g/gl (32-36); Mean Corpuscular Hgb 29.7 pg (27.0-32.0); Mean Corpuscular Volume 90.3 fL (80-94); Mean Platelet Vol. 9.6 fl (6.2-12.0); Monocyte% 10.6 % (0-10); Neutrophil # 7.02 X10^3/uL (2.7-7.7); Neutrophil % 74.2 % (47-70); Platelet Count 200 K/mm3 (150-450); RBC Distribution Width CV 14.6 % (11.6-14.6); RBC Distribution Width SD 47.2 fl (35.1-43.9); Red Blood Count 4.54 M/mm3 (4.6-6.2); White Blood Count 9.5 K/mm3 (4.4-11.0)
[2017-11-09 06:55] LABS: Anion Gap 9 (5-15); BUN 29 mg/dL (7-18); BUN/Creat Ratio 16.7 RATIO (10-20); Calcium,Total 8.2 mg/dL (8.5-10.1); Chloride 105 mmol/L (98-107); Creatinine, Serum 1.74 mg/dL (0.70-1.30); EST Glomerular Filtration Rate 42 mL/min (>60); Est Glom Filt Rate - Afr Amer 51 mL/min (>60); Estimated Creatinine Clearance 42.33 ml/min; Glucose 115 mg/dL (74-106); POSITIVE COUNT NO; POSITIVE DIFFERENTIAL NO; POSITIVE MORPHOLOGY NO; Potassium 3.6 mmol/L (3.5-5.1); Sodium Level 142 mmol/L (136-145)
[2017-11-09 07:51] LABS: Bedside Glucose 145 mg/dL (70-110)
[2017-11-09] MEDS: Isosorbide Mononitrate 30 MG Tablet 60 MG PO ×2 (07:56→22:22)
[2017-11-09] MEDS: Aspirin 81 MG TAB.CHEW PO (07:56)
[2017-11-09] MEDS: APIXABAN 2.5 MG TABLET PO ×2 (07:56→22:22)
[2017-11-09] MEDS: Pantoprazole Sodium 40 MG Tablet PO ×2 (07:56→22:22)
[2017-11-09] MEDS: Carvedilol 25 MG Tablet PO ×2 (07:56→22:20)
[2017-11-09] MEDS: Losartan Potassium 100 MG Tablet PO (07:56)
[2017-11-09] MEDS: Amiodarone 200 MG Tablet PO (07:56)
[2017-11-09] MEDS: Clopidogrel Bisulfate 75 MG Tablet PO (07:56)
[2017-11-09] MEDS: 0.9% NaCl Peripheral Flush Adult/Peds IV ×2 (10:12→16:57)
[2017-11-09] MEDS: Furosemide 40 MG/4 ML Vial IV ×2 (10:12→16:57)
--- NOTE | 2017-11-09 10:35 | PCM.PN.HOSP ---
Patient Problems: Active and Suspected Problems (Last Reviewed 05/24/17 @ 15:10 by Melania Mendoza) Shortness of breath (Acute) Subjective: Patient seen and examined. Feels much better shortness of breath has resolved. He is off oxygen. He denies any fever or chills, any shortness of breath, any chest pain, and abdominal pain, any diarrhea or vomiting. Review of systems otherwise negative. Cardiology on board. Vitals/I&O's: Vital Signs Temp Pulse Resp BP Pulse Ox 98.1 F 125 H 20 H 126/71 H 93 11/09/17 07:43 11/09/17 07:43 11/09/17 10:08 11/09/17 10:08 11/09/17 10:08 Oxygen Flow Rate (L/min) 2 Oxygen Delivery Method Room Air Weight: 210 lb 1.608 oz Body Mass Index (BMI) 31.3 Intake and Output for Last 24 Hours 11/07/17 11/08/17 11/09/17 23:59 23:59 23:59 Intake Total 300 / 300 840 / 840 Output Total 1600 / 1600 Balance 300 / 300 -760 / -760 General: Alert, Oriented x3, Cooperative, No apparent distress HEENT: Atraumatic, PERRLA, EOMI, Normocephalic Oral: Moist Mucosa Neck: Supple, No JVD, Negative Carotid Bruits Lungs: Clear to auscultation, Normal air movement, No rhonchi, No wheeze, No rales Cardiovascular: Normal S1, Normal S2, No murmurs, Irregular Rate, Tachycardic Abdomen: Bowel Sounds Present, Soft, Non Tender, Non-Distended, No Hepato-splenomegaly Extremities: No clubbing, No cyanosis, No edema, Capillary Refill Less than 3 Seconds Skin: No rashes, No breakdown Musculoskeletal: No Tenderness to Palpation of Joints or Extremities Lymphatic: No Cervical, Supraclavicular, or Inguinal Adenopathy Neurological: Cranial nerves II-XII grossly intact, Motor Exam 5/5 strength throughout Psych/Mental Status: Normal Affect, Appropriate, Alert and oriented to time, place, person, mood and affect Laboratory Results 11/08/17 13:30: Troponin I 0.119 H 11/08/17 16:44: POC Glucose 260 H 11/08/17 21:38: POC Glucose 268 H 11/09/17 05:50: WBC 9.5, RBC 4.54 L, Hgb 13.5, Hct 41.0, MCV 90.3, MCH 29.7, MCHC 32.9, RDW 14.6, RDW Differential 47.2 H, Plt Count 200, MPV 9.6, Immature Gran % (Auto) 0.400, Neut % (Auto) 74.2 H, Lymph % (Auto) 13.5 L, [place] % (Auto) 10.6 H, Eos % (Auto) 1.0, Baso % (Auto) 0.3, Absolute Neuts (auto) 7.0, Absolute Lymphs (auto) 1.28, Total Counted Not Reportable 11/09/17 05:50: Sodium 142, Potassium 3.6, Chloride 105, Carbon Dioxide 28.0, Anion Gap 9, BUN 29 H, Creatinine 1.74 H, Estim Creat Clear Calc 42.33, Est GFR (MDRD) Af Amer 51 L, Est GFR (MDRD) Non-Af 42 L, BUN/Creatinine Ratio 16.7, Glucose 115 H, Calcium 8.2 L 11/09/17 05:50: Troponin I 0.174 H 11/09/17 07:40: POC Glucose 145 H Diagnostic Data Chest X-Ray 11/08/17 10:45 IMPRESSION: Nonspecific interstitial prominence in the lungs bilaterally. This may be compressive changes of the lungs due to hypoinflation in the setting of low inspiratory volumes. There is however peribronchial cuffing with some minimal fissural thickening. Consider mild edema or mild pneumonitis. Electronically Signed: Víctor Garcia, at 11:15 EDT Tel , Service support , Current Medications Amiodarone HCl (Cordarone) 200 mg PO DAILY [facility] Last Admin: 11/09/17 07:56 Dose: 200 mg Apixaban (Eliquis) 2.5 mg PO BID [facility] Last Admin: 11/09/17 07:56 Dose: 2.5 mg Aspirin (Aspirin, Baby) 81 mg PO DAILY@0800 [facility] Last Admin: 11/09/17 07:56 Dose: 81 mg Carvedilol (Coreg) 25 mg PO BID [facility] Last Admin: 11/09/17 07:56 Dose: 25 mg Clopidogrel Bisulfate (Plavix) 75 mg PO DAILY [facility] Last Admin: 11/09/17 07:56 Dose: 75 mg Furosemide (Lasix) 40 mg IV BID@1000,1800 [facility] Last Admin: 11/09/17 10:12 Dose: 40 mg Hydralazine HCl (Apresoline) 100 mg PO TID [facility] Last Admin: 11/09/17 05:41 Dose: 100 mg Insulin Aspart (Novolog Mix 70-30 Flexpen Syrn) 25 units SC BIDAC [facility] Last Admin: 11/09/17 07:57 Dose: 25 u Isosorbide Mononitrate (Imdur) 60 mg PO BID [facility] Last Admin: 11/09/17 07:56 Dose: 60 mg Losartan Potassium (Cozaar) 100 mg PO DAILY [facility] Last Admin: 11/09/17 07:56 Dose: 100 mg Magnesium Hydroxide (Milk Of Magnesia) 30 ml PO DAILY PRN PRN PRN Reason: Constipation Nitroglycerin (Nitrostat) 0.4 mg SUBLINGUAL Q5M PRN PRN Reason: CARDIAC/CHEST PAIN Non-Formulary Medication (Novolin 70-30 100 Unit/Ml Vial) 25 units SQ BID [facility] Pantoprazole Sodium (Protonix) 40 mg PO BID [facility] Last Admin: 11/09/17 07:56 Dose: 40 mg Pravastatin Sodium (Pravachol) 40 mg PO QHS [facility] Last Admin: 11/08/17 21:27 Dose: 40 mg Sodium Chloride () 5 - 30 ml IV UD PRN PRN Reason: SALINE FLUSH Last Admin: 11/09/17 10:12 Dose: 10 ml Medical Necessity - Tobacco Use Smoking Status: Former smoker Assessment/Plan All Active Problems (Last Reviewed 05/24/17 @ 15:10 by Melania Mendoza) Shortness of breath (Acute) Esophagitis determined by endoscopy (Acute ~05/06/17) Cardiogenic shock (Resolved ~06/08/16) Hypertensive emergency (Resolved) Abdominal pain (Resolved) Acute pulmonary edema (Resolved) Acute respiratory failure (Resolved) Atrial fibrillation with RVR (Resolved) Chest pain (Resolved) Elevated troponin (Resolved) Metabolic acidosis (Resolved) 67 y/o male presenting with a one day history of shortness of breath and chest pain 1. Acute systolic CHF exacerbation resolving. SOB has improved BNP ~382.3 on admission CXR showed interstitial edema on IV lasix 40mg bid also on beta janette, imdur and hydralazine last echo(05/23):normal LV size with severe segmental systolic dysfunction with EF of 25% and severe hypokinesia. Normal LA. since last echo was only ~ 6 months ago, will defer on new echo for now cardiology consult 2. Afib rate is ~ 125 this morning on metoprolol and amiodarone. Didnt require a drip on eliquis BID will adjust doses as needed in response to HR 3. NSTEMI didnt have much chest pain overnight troponin trended up slightly to 0.119->0.174 EKG was negative cardiology on board on SL nitroglycerin, aspirn and statin already being anticoagulated on eliquis per cardiology note to defer cath for now and continue medical management. 4. CAD s/p stents on aspirin, plavix and beta janette as well as statin and midur 5. Hypertension on carvedilol, losartan 6. CKD 3 Cr was 1.8 on admission which is is around his baseline Cr is 1.74 today will monitor 7. Diabetes ISS; accuchecks ACHs on NPH 70/30 insulin 25IU bid 8. DVT prophylaxis: on apixaban Code status:Full code Code Visit Inpatient E&M: 37519 Subs Hosp L3
--- NOTE | 2017-11-09 10:41 | PN.CARD_ITS ---
Subjectve: Patient doing better this morning. Breathing has improved but still has some mild crackles at the bases. No chest pain or angina. Telemetry is negative. Objective: Vital Signs Temp Pulse Resp BP Pulse Ox 98.1 F 125 H 20 H 126/71 H 93 11/09/17 07:43 11/09/17 07:43 11/09/17 10:08 11/09/17 10:08 11/09/17 10:08 Oxygen Flow Rate (L/min) 2 Oxygen Delivery Method Room Air Weight: 210 lb 1.608 oz Body Mass Index (BMI) 31.3 Intake and Output for Last 24 Hours 11/07/17 11/08/17 11/09/17 23:59 23:59 23:59 Intake Total 300 / 300 840 / 840 Output Total 1600 / 1600 Balance 300 / 300 -760 / -760 General: Awake, Alert, Oriented x 3 HEENT: PERRL, EOMI, Sclera Non Icteric Neck: Supple, Good ROM, No Lymph Node Enlargement Lungs: Rales - Jigar Bases Cardiovascular: Regular Rhythm, Normal S1, Normal S2, No Murmurs, No Rubs, No Gallops Vascular: No Carotid Bruits, Normal Femoral Pulses, Normal Radial Pulses, Normal Dorsalis Pedal Pulse, Normal Posterior Tibial Pulses Abdomen: Bowel Sounds Present, Soft, Non Tender, No HSM, No Organomegaly Extremities: No Cyanosis, No Clubbing, No edema Neurological: No Focal Motor or Sensory Deficit 11/08/17 13:30: Troponin I 0.119 H 11/09/17 05:50: WBC 9.5, RBC 4.54 L, Hgb 13.5, Hct 41.0, MCV 90.3, MCH 29.7, MCHC 32.9, RDW 14.6, RDW Differential 47.2 H, Plt Count 200, MPV 9.6, Immature Gran % (Auto) 0.400, Neut % (Auto) 74.2 H, Lymph % (Auto) 13.5 L, [place] % (Auto) 10.6 H, Eos % (Auto) 1.0, Baso % (Auto) 0.3, Absolute Neuts (auto) 7.0, Total Counted Not Reportable 11/09/17 05:50: Sodium 142, Potassium 3.6, Chloride 105, Carbon Dioxide 28.0, Anion Gap 9, BUN 29 H, Creatinine 1.74 H, Est GFR (MDRD) Af Amer 51 L, Est GFR ( MDRD) Non-Af 42 L, BUN/Creatinine Ratio 16.7, Glucose 115 H, Calcium 8.2 L 11/09/17 05:50: Troponin I 0.174 H Rhythm: EKG: ECHO: Stress Test: Cardiac Cath: PCI: CT Surgery: Holter monitor: EPS: PPM: CXR: Chest CT Scan: Medical Necessity - Tobacco Use Smoking Status: Former smoker Assessment/Plan 1. Ischemic cardiomyopathy: The patient has no anginal symptoms and appears to have engaged in dietary indiscretion by eating excessively salty foods over this past weekend which has appeared to have precipitated a congestive heart failure exacerbation. His last echocardiogram in May 2017 showed an EF around 25%. His EKG showed no dynamic changes, and he has had no anginal symptoms. His peak troponin is 0.119 at this point. At this point given his chronic renal insufficiency, I would recommend holding off on repeat catheterization at this time. I reinforced to the patient his need for salt and water restriction, and I recommended a 1500 cc fluid restriction. We will continue IV diuresis for another day or so, and then revert back to his p.o. diuretic therapy. In the meantime he will continue his baby aspirin, Plavix, losartan, Imdur, hydralazine and Coreg. Patient was on 40 mg of Lasix twice daily at home, and would recommend resuming Lasix 40 mg p.o. twice daily once he is reached his dry weight. Do not recommend repeat echo or stress testing at this time. Patient status post AICD, and denies any palpitations, presyncope, syncope or AICD discharges. 2. Atrial fibrillation: Currently normal sinus rhythm. Recommend continuing amiodarone and Eliquis therapy. Patient does have a history of paroxysmal atrial fibrillation as well as severe LV dysfunction. 3. Hyperlipidemia: Continue statin based medications. Code Visit Inpatient E&M: 94501 [facility] Hosp L2
--- NOTE | 2017-11-09 10:44 | PN_ITS ---
Patient Problems: Active and Suspected Problems (Last Reviewed 05/24/17 @ 15:10 by Melania Mendoza) Shortness of breath (Acute) Subjective: Patient seen and examined. Feels much better shortness of breath has resolved. He is off oxygen. He denies any fever or chills, any shortness of breath, any chest pain, and abdominal pain, any diarrhea or vomiting. Review of systems otherwise negative. Cardiology on board. Vitals/I&O's: Vital Signs Temp Pulse Resp BP Pulse Ox 98.1 F 125 H 20 H 126/71 H 93 11/09/17 07:43 11/09/17 07:43 11/09/17 10:08 11/09/17 10:08 11/09/17 10:08 Oxygen Flow Rate (L/min) 2 Oxygen Delivery Method Room Air Weight: 210 lb 1.608 oz Body Mass Index (BMI) 31.3 Intake and Output for Last 24 Hours 11/07/17 11/08/17 11/09/17 23:59 23:59 23:59 Intake Total 300 / 300 840 / 840 Output Total 1600 / 1600 Balance 300 / 300 -760 / -760 General: Alert, Oriented x3, Cooperative, No apparent distress HEENT: Atraumatic, PERRLA, EOMI, Normocephalic Oral: Moist Mucosa Neck: Supple, No JVD, Negative Carotid Bruits Lungs: Clear to auscultation, Normal air movement, No rhonchi, No wheeze, No rales Cardiovascular: Normal S1, Normal S2, No murmurs, Irregular Rate, Tachycardic Abdomen: Bowel Sounds Present, Soft, Non Tender, Non-Distended, No Hepato- splenomegaly Extremities: No clubbing, No cyanosis, No edema, Capillary Refill Less than 3 Seconds Skin: No rashes, No breakdown Musculoskeletal: No Tenderness to Palpation of Joints or Extremities Lymphatic: No Cervical, Supraclavicular, or Inguinal Adenopathy Neurological: Cranial nerves II-XII grossly intact, Motor Exam 5/5 strength throughout Psych/Mental Status: Normal Affect, Appropriate, Alert and oriented to time, place, person, mood and affect Laboratory Results 11/08/17 13:30: Troponin I 0.119 H 11/08/17 16:44: POC Glucose 260 H 11/08/17 21:38: POC Glucose 268 H 11/09/17 05:50: WBC 9.5, RBC 4.54 L, Hgb 13.5, Hct 41.0, MCV 90.3, MCH 29.7, MCHC 32.9, RDW 14.6, RDW Differential 47.2 H, Plt Count 200, MPV 9.6, Immature Gran % (Auto) 0.400, Neut % (Auto) 74.2 H, Lymph % (Auto) 13.5 L, [place] % (Auto) 10.6 H, Eos % (Auto) 1.0, Baso % (Auto) 0.3, Absolute Neuts (auto) 7.0, Absolute Lymphs (auto) 1.28, Total Counted Not Reportable 11/09/17 05:50: Sodium 142, Potassium 3.6, Chloride 105, Carbon Dioxide 28.0, Anion Gap 9, BUN 29 H, Creatinine 1.74 H, Estim Creat Clear Calc 42.33, Est GFR (MDRD) Af Amer 51 L, Est GFR (MDRD) Non-Af 42 L, BUN/Creatinine Ratio 16.7, Glucose 115 H, Calcium 8.2 L 11/09/17 05:50: Troponin I 0.174 H 11/09/17 07:40: POC Glucose 145 H Diagnostic Data Chest X-Ray 11/08/17 10:45 IMPRESSION: Nonspecific interstitial prominence in the lungs bilaterally. This may be compressive changes of the lungs due to hypoinflation in the setting of low inspiratory volumes. There is however peribronchial cuffing with some minimal fissural thickening. Consider mild edema or mild pneumonitis. Electronically Signed: Víctor Garcia, at 11:15 EDT Tel , Service support , Current Medications Amiodarone HCl (Cordarone) 200 mg PO DAILY [facility] Last Admin: 11/09/17 07:56 Dose: 200 mg Apixaban (Eliquis) 2.5 mg PO BID [facility] Last Admin: 11/09/17 07:56 Dose: 2.5 mg Aspirin (Aspirin, Baby) 81 mg PO DAILY@0800 [facility] Last Admin: 11/09/17 07:56 Dose: 81 mg Carvedilol (Coreg) 25 mg PO BID [facility] Last Admin: 11/09/17 07:56 Dose: 25 mg Clopidogrel Bisulfate (Plavix) 75 mg PO DAILY [facility] Last Admin: 11/09/17 07:56 Dose: 75 mg Furosemide (Lasix) 40 mg IV BID@1000,1800 [facility] Last Admin: 11/09/17 10:12 Dose: 40 mg Hydralazine HCl (Apresoline) 100 mg PO TID [facility] Last Admin: 11/09/17 05:41 Dose: 100 mg Insulin Aspart (Novolog Mix 70-30 Flexpen Syrn) 25 units SC BIDAC [facility] Last Admin: 11/09/17 07:57 Dose: 25 u Isosorbide Mononitrate (Imdur) 60 mg PO BID [facility] Last Admin: 11/09/17 07:56 Dose: 60 mg Losartan Potassium (Cozaar) 100 mg PO DAILY [facility] Last Admin: 11/09/17 07:56 Dose: 100 mg Magnesium Hydroxide (Milk Of Magnesia) 30 ml PO DAILY PRN PRN PRN Reason: Constipation Nitroglycerin (Nitrostat) 0.4 mg SUBLINGUAL Q5M PRN PRN Reason: CARDIAC/CHEST PAIN Non-Formulary Medication (Novolin 70-30 100 Unit/Ml Vial) 25 units SQ BID [facility] Pantoprazole Sodium (Protonix) 40 mg PO BID [facility] Last Admin: 11/09/17 07:56 Dose: 40 mg Pravastatin Sodium (Pravachol) 40 mg PO QHS [facility] Last Admin: 11/08/17 21:27 Dose: 40 mg Sodium Chloride () 5 - 30 ml IV UD PRN PRN Reason: SALINE FLUSH Last Admin: 11/09/17 10:12 Dose: 10 ml Medical Necessity - Tobacco Use Smoking Status: Former smoker Assessment/Plan All Active Problems (Last Reviewed 05/24/17 @ 15:10 by Melania Mendoza) Shortness of breath (Acute) Esophagitis determined by endoscopy (Acute ~05/06/17) Cardiogenic shock (Resolved ~06/08/16) Hypertensive emergency (Resolved) Abdominal pain (Resolved) Acute pulmonary edema (Resolved) Acute respiratory failure (Resolved) Atrial fibrillation with RVR (Resolved) Chest pain (Resolved) Elevated troponin (Resolved) Metabolic acidosis (Resolved) 67 y/o male presenting with a one day history of shortness of breath and chest pain 1. Acute systolic CHF exacerbation * resolving. SOB has improved * BNP ~382.3 on admission * CXR showed interstitial edema * on IV lasix 40mg bid * also on beta janette, imdur and hydralazine * last echo(05/23):normal LV size with severe segmental systolic dysfunction with EF of 25% and severe hypokinesia. Normal LA. * since last echo was only ~ 6 months ago, will defer on new echo for now * cardiology consult 2. Afib * rate is ~ 125 this morning * on metoprolol and amiodarone. Didnt require a drip * on eliquis BID * will adjust doses as needed in response to HR * * 3. NSTEMI * didnt have much chest pain overnight * troponin trended up slightly to 0.119->0.174 * EKG was negative * cardiology on board * on SL nitroglycerin, aspirn and statin * already being anticoagulated on eliquis * per cardiology note to defer cath for now and continue medical management. * * 4. CAD s/p stents * on aspirin, plavix and beta janette as well as statin and midur * 5. Hypertension * on carvedilol, losartan * 6. CKD 3 * Cr was 1.8 on admission which is is around his baseline * Cr is 1.74 today * will monitor * 7. Diabetes * ISS; accuchecks ACHs * on NPH 70/30 insulin 25IU bid * 8. DVT prophylaxis: on apixaban Code status:Full code * Code Visit Inpatient E&M: 69086 Subs Hosp L3
[2017-11-09 11:30] LABS: Bedside Glucose 227 mg/dL (70-110)
[2017-11-09 16:21] LABS: Bedside Glucose 286 mg/dL (70-110)
[2017-11-09] MEDS: Pravastatin 40 MG Tablet PO (22:22)
[2017-11-09 23:26] LABS: Bedside Glucose 150 mg/dL (70-110)
[2017-11-10] VITALS (9 sets, daily range): BP systolic 130–155; BP diastolic 75–89; PULSE 80–95; RESP 18; TEMP 36.6–37.2; O2SAT 95–96
[2017-11-10] MEDS: Acetaminophen 325 MG Tablet 650 MG PO ×2 (03:43→09:53)
[2017-11-10] MEDS: hydrALAZINE 50 MG Tablet 100 MG PO ×2 (06:11→14:15)
[2017-11-10 08:16] LABS: Absolute Lymphocyte Count 1.11 X10^3/ul (0.83-4.51); Absolute Neutrophil Count 5.8 X10^3/uL (2.0-7.7); Basophil# 0.02 X10^3/uL; Basophil% 0.2 % (0-1); Eosinophil# 0.14 X10^3/uL; Eosinophils% 1.7 % (0-5); Hematocrit 41.6 % (40-54); Hemoglobin 13.8 g/dl (13.0-16.5); Lymphocyte # 1.11 X10^3/ul (4.0); Lymphocyte % 13.7 % (19-41); Mean Corp Hgb Conc 33.2 g/gl (32-36); Mean Corpuscular Hgb 29.6 pg (27.0-32.0); Mean Corpuscular Volume 89.3 fL (80-94); Mean Platelet Vol. 9.4 fl (6.2-12.0); Monocyte# 0.97 X10^3/uL; Neutrophil # 5.83 X10^3/uL (2.7-7.7); Neutrophil % 71.9 % (47-70); Platelet Count 195 K/mm3 (150-450); RBC Distribution Width CV 14.5 % (11.6-14.6); RBC Distribution Width SD 46.8 fl (35.1-43.9); Red Blood Count 4.66 M/mm3 (4.6-6.2); White Blood Count 8.1 K/mm3 (4.4-11.0)
[2017-11-10 08:23] LABS: POSITIVE COUNT NO; POSITIVE DIFFERENTIAL NO; POSITIVE MORPHOLOGY NO
[2017-11-10 08:28] LABS: Anion Gap 7 (5-15); BUN 32 mg/dL (7-18); BUN/Creat Ratio 16.8 RATIO (10-20); Calcium,Total 8.2 mg/dL (8.5-10.1); Chloride 101 mmol/L (98-107); Creatinine, Serum 1.91 mg/dL (0.70-1.30); EST Glomerular Filtration Rate 38 mL/min (>60); Est Glom Filt Rate - Afr Amer 46 mL/min (>60); Estimated Creatinine Clearance 38.56 ml/min; Glucose 220 mg/dL (74-106); Potassium 3.6 mmol/L (3.5-5.1); Sodium Level 137 mmol/L (136-145)
[2017-11-10] MEDS: Aspirin 81 MG TAB.CHEW PO (08:28)
[2017-11-10] MEDS: Pantoprazole Sodium 40 MG Tablet PO (09:54)
[2017-11-10] MEDS: Carvedilol 25 MG Tablet PO (09:54)
[2017-11-10] MEDS: Isosorbide Mononitrate 30 MG Tablet 60 MG PO (09:54)
[2017-11-10] MEDS: Losartan Potassium 100 MG Tablet PO (09:54)
[2017-11-10] MEDS: APIXABAN 2.5 MG TABLET PO (09:55)
[2017-11-10] MEDS: Amiodarone 200 MG Tablet PO (09:55)
[2017-11-10] MEDS: Furosemide 40 MG/4 ML Vial IV (09:55)
[2017-11-10] MEDS: 0.9% NaCl Peripheral Flush Adult/Peds IV (09:55)
[2017-11-10] MEDS: Clopidogrel Bisulfate 75 MG Tablet PO (09:55)
[2017-11-10 10:06] LABS: Bedside Glucose 207 mg/dL (70-110)
--- NOTE | 2017-11-10 11:53 | DCINST_ITS ---
- Discharge Diagnoses Current Active Problems: Current Active and Chronic Problems (Last Reviewed 05/24/17 @ 15:10 by Melania Mendoza) Shortness of breath (Acute) CAD (coronary artery disease) (Chronic) You will use the following diet at home:: Cardiac Your food should be the consistency of: Regular Your liquids should be the consistency of: Regular/Thin Discharge Activity: Return to Normal Activity Weight Bearing Status: Weight bearing as tolerated Call your doctor if you observe: Shortness of breath, Dizziness, Swelling in the ankles, Chest pain Instructions: Heart Failure: Warning Signs of a Flare-Up, What Is Heart Failure ?, Coping with Heart Failure Allergies/Adverse Reactions: Allergies atorvastatin calcium [From Lipitor] Allergy (Verified 11/08/17 10:23) Unknown diltiazem Allergy (Verified 11/08/17 10:23) Angioedema Medications to take at Discharge Aspirin [Aspirin, Baby] 81 mg PO DAILY@0800 12/28/14 Pravastatin [Pravachol] 40 mg PO QHS 12/28/14 Amiodarone HCl 200 mg PO DAILY 04/09/16 hydralazine 50 mg tablet 75 mg PO TID #135 tab 04/15/17 Apixaban [Eliquis] 2.5 mg PO BID #180 tab 05/12/17 furosemide 40 mg tablet 40 mg PO BID #60 tab 05/26/17 pantoprazole 40 mg tablet,delayed release 40 mg PO BID #60 tab 05/26/17 clopidogrel 75 mg tablet 75 mg PO DAILY #30 tab 06/23/17 losartan 100 mg tablet 100 mg PO QDAY #90 tab 07/02/17 carvedilol 25 mg tablet 25 mg PO BID #60 tab 08/11/17 isosorbide mononitrate ER 60 mg tablet,extended release 24 hr 90 mg PO BID #90 tab 10/04/17 Novolin 70-30 100 Unit/ml Vial 25 units SQ BID 11/08/17 Primary Care Physician: Jennifer Spicer DO [Primary Care Provider] - Please follow up with your Primary Care Physician in: one week Test Results: Test results from this visit will be discussed in further detail at your follow- up appointment, if applicable. Please Follow Up With: Marco Antonio Butler MD When: 1-2 weeks Proposed Discharge Date: 11/10/17
--- NOTE | 2017-11-10 11:53 | PCM.DC.SUM ---
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) History of coronary artery stent placement (Chronic ~06/08/16) SARA-RCA 06/15/2011, SARA-OM1 06/30/2011, SARA-LAD 08/20/2014, SARA-Prox- RCA 06/08/2016 Atherosclerosis of coronary artery of [place] heart without angina pectoris (Chronic) SARA-RCA 06/15/2011, SARA-OM1 06/30/2011, SARA-LAD 08/20/2014, SARA-Prox- RCA 06/08/2016 Paroxysmal atrial fibrillation (Chronic) Hypertension (Chronic) Hyperlipidemia (Chronic) Type II diabetes mellitus (Chronic) Hyperkalemia (Chronic) Chronic renal failure, stage 3 (moderate) (Chronic) STEMI (ST elevation myocardial infarction) (Chronic) Anemia of chronic renal failure, stage 3 (moderate) (Chronic) Obesity (BMI 30.0-34.9) (Chronic) Systolic CHF, acute on chronic (Chronic) Cardiomyopathy, ischemic (Chronic) Hospital Course and Treatment Imaging Results: Laboratory Tests 11/08/17 11/08/17 11/08/17 10:35 10:35 10:35 WBC 15.0 H RBC 5.36 Hgb 15.8 Hct 48.2 MCV 89.9 MCH 29.5 MCHC 32.8 RDW 14.7 H RDW Differential 47.9 H Plt Count 243 MPV 9.6 Immature Gran % (Auto) 0.800 Neut % (Auto) 87.7 H Lymph % (Auto) 4.5 L [place] % (Auto) 6.2 Eos % (Auto) 0.5 Baso % (Auto) 0.3 Absolute Neuts (auto) 13.1 H Absolute Lymphs (auto) 0.68 L Total Counted Not Reportable Specimen Type Sample Site pH Bicarbonate Actual POC Total CO2 Base Excess O2 Saturation ABG pCO2 ABG pO2 Humberto Test O2 Delivery Device Liter Flow Blood Gas Notified Whom Blood Gas Notified Time Sodium 138 Potassium 3.8 Chloride 105 Carbon Dioxide 27.0 Anion Gap 6 BUN 28 H Creatinine 1.80 H Estim Creat Clear Calc 40.91 Est GFR (MDRD) Af Amer 49 L Est GFR (MDRD) Non-Af 40 L BUN/Creatinine Ratio 15.6 Glucose 216 H Calcium 8.4 L Troponin I 0.017 B-Natriuretic Peptide 382.3 H POC Glucose 11/08/17 11/08/17 11/08/17 11:33 13:30 16:44 WBC RBC Hgb Hct MCV MCH MCHC RDW RDW Differential Plt Count MPV Immature Gran % (Auto) Neut % (Auto) Lymph % (Auto) [place] % (Auto) Eos % (Auto) Baso % (Auto) Absolute Neuts (auto) Absolute Lymphs (auto) Total Counted Specimen Type ART Sample Site R Brachial pH 7.42 Bicarbonate Actual 22.7 POC Total CO2 24 Base Excess -2 O2 Saturation 93 L ABG pCO2 35.3 ABG pO2 66 L Humberto Test NA O2 Delivery Device Nasal Can Liter Flow 3.0 Blood Gas Notified Whom ED MD Blood Gas Notified Time 1128 Sodium Potassium Chloride Carbon Dioxide Anion Gap BUN Creatinine Estim Creat Clear Calc Est GFR (MDRD) Af Amer Est GFR (MDRD) Non-Af BUN/Creatinine Ratio Glucose Calcium Troponin I 0.119 H B-Natriuretic Peptide POC Glucose 260 H 11/08/17 11/09/17 11/09/17 21:38 05:50 05:50 WBC 9.5 RBC 4.54 L Hgb 13.5 Hct 41.0 MCV 90.3 MCH 29.7 MCHC 32.9 RDW 14.6 RDW Differential 47.2 H Plt Count 200 MPV 9.6 Immature Gran % (Auto) 0.400 Neut % (Auto) 74.2 H Lymph % (Auto) 13.5 L [place] % (Auto) 10.6 H Eos % (Auto) 1.0 Baso % (Auto) 0.3 Absolute Neuts (auto) 7.0 Absolute Lymphs (auto) 1.28 Total Counted Not Reportable Specimen Type Sample Site pH Bicarbonate Actual POC Total CO2 Base Excess O2 Saturation ABG pCO2 ABG pO2 Humberto Test O2 Delivery Device Liter Flow Blood Gas Notified Whom Blood Gas Notified Time Sodium 142 Potassium 3.6 Chloride 105 Carbon Dioxide 28.0 Anion Gap 9 BUN 29 H Creatinine 1.74 H Estim Creat Clear Calc 42.33 Est GFR (MDRD) Af Amer 51 L Est GFR (MDRD) Non-Af 42 L BUN/Creatinine Ratio 16.7 Glucose 115 H Calcium 8.2 L Troponin I B-Natriuretic Peptide POC Glucose 268 H 11/09/17 11/09/17 11/09/17 05:50 07:40 11:26 WBC RBC Hgb Hct MCV MCH MCHC RDW RDW Differential Plt Count MPV Immature Gran % (Auto) Neut % (Auto) Lymph % (Auto) [place] % (Auto) Eos % (Auto) Baso % (Auto) Absolute Neuts (auto) Absolute Lymphs (auto) Total Counted Specimen Type Sample Site pH Bicarbonate Actual POC Total CO2 Base Excess O2 Saturation ABG pCO2 ABG pO2 Humberto Test O2 Delivery Device Liter Flow Blood Gas Notified Whom Blood Gas Notified Time Sodium Potassium Chloride Carbon Dioxide Anion Gap BUN Creatinine Estim Creat Clear Calc Est GFR (MDRD) Af Amer Est GFR (MDRD) Non-Af BUN/Creatinine Ratio Glucose Calcium Troponin I 0.174 H B-Natriuretic Peptide POC Glucose 145 H 227 H 11/09/17 11/09/17 11/10/17 16:16 22:17 07:32 WBC RBC Hgb Hct MCV MCH MCHC RDW RDW Differential Plt Count MPV Immature Gran % (Auto) Neut % (Auto) Lymph % (Auto) [place] % (Auto) Eos % (Auto) Baso % (Auto) Absolute Neuts (auto) Absolute Lymphs (auto) Total Counted Specimen Type Sample Site pH Bicarbonate Actual POC Total CO2 Base Excess O2 Saturation ABG pCO2 ABG pO2 Humberto Test O2 Delivery Device Liter Flow Blood Gas Notified Whom Blood Gas Notified Time Sodium Potassium Chloride Carbon Dioxide Anion Gap BUN Creatinine Estim Creat Clear Calc Est GFR (MDRD) Af Amer Est GFR (MDRD) Non-Af BUN/Creatinine Ratio Glucose Calcium Troponin I B-Natriuretic Peptide POC Glucose 286 H 150 H 207 H 11/10/17 11/10/17 11/10/17 07:45 07:45 11:52 WBC 8.1 RBC 4.66 Hgb 13.8 Hct 41.6 MCV 89.3 MCH 29.6 MCHC 33.2 RDW 14.5 RDW Differential 46.8 H Plt Count 195 MPV 9.4 Immature Gran % (Auto) 0.500 Neut % (Auto) 71.9 H Lymph % (Auto) 13.7 L [place] % (Auto) 12.0 H Eos % (Auto) 1.7 Baso % (Auto) 0.2 Absolute Neuts (auto) 5.8 Absolute Lymphs (auto) 1.11 Total Counted Not Reportable Specimen Type Sample Site pH Bicarbonate Actual POC Total CO2 Base Excess O2 Saturation ABG pCO2 ABG pO2 Humberto Test O2 Delivery Device Liter Flow Blood Gas Notified Whom Blood Gas Notified Time Sodium 137 Potassium 3.6 Chloride 101 Carbon Dioxide 29.0 Anion Gap 7 BUN 32 H Creatinine 1.91 H Estim Creat Clear Calc 38.56 Est GFR (MDRD) Af Amer 46 L Est GFR (MDRD) Non-Af 38 L BUN/Creatinine Ratio 16.8 Glucose 220 H Calcium 8.2 L Troponin I B-Natriuretic Peptide POC Glucose 309 H Diagnostic Data Chest X-Ray 11/08/17 10:45 IMPRESSION: Nonspecific interstitial prominence in the lungs bilaterally. This may be compressive changes of the lungs due to hypoinflation in the setting of low inspiratory volumes. There is however peribronchial cuffing with some minimal fissural thickening. Consider mild edema or mild pneumonitis. Electronically Signed: Víctor Garcia, at 11:15 EDT Tel , Service support , cardiology-Dr Butler Operations: None Summary of Care Provided: The patient is a 67 year old M with a PMH of hypertension, Afib, CAD and NSTEMI s/p stents, type 2 diabetes mellitus , CKD3 and hyperlipidemia. He was admitted with a complaint of shortness of breath of one day duration. Symptoms started night before presentation, with associated orthopnea and PND. He also had left sided, pressure like chest pain, with no aggravating or relieving factors. BNP was 382 on admission. Initial troponin was negative and trended up slightly to a peak of 0.174. EKG showed heart rate of 124. He was admitted and managed for acute CHF exacerbation and A. fib. Patient was diuresed with IV Lasix and continued on his p.o. amiodarone as his heart rate subsequently improved. Cardiology was consulted. Echo was deferred as he had had an echo just in May 2017 which showed normal left ventricular size with EF of 25% and severe hypokinesia. Based on slight troponin trend up to 0.174, he was also managed for an [facility] and was given conservative management. Cardiology preferred to defer cath and continue medical management. He continued on his aspirin, statin, Plavix and beta-janette as well as Imdur. Patient remained stable, blood pressure became controlled on oral amiodarone and he was diuresed and became dry. He was discharged home on 11/10/2017 to follow-up with cardiology and his primary care doctor. He has an appointment with cardiology on November 25, 2017. Patient seen and examined prior to discharge. He had no complaints and felt well. Shortness of breath had resolved. He denied any fever or chills, any cough or chest pain, shortness of breath, abdominal pain, any diarrhea vomiting. Review of systems was otherwise negative. On examination Vital Signs Height 5 ft 9 in Weight: 210 lb 8.663 oz Weight in Pounds 210.5 lbs BMI 29.7 Pulse Ox 95 Temperature 98.0 F Pulse Rate 83 Respiratory Rate 18 Blood Pressure [BP] 126/71 Blood Pressure 155/75 Blood Pressure Position [BP] Sitting Blood Pressure Position Sitting []General: Alert, Oriented x3, Cooperative, No apparent distress HEENT: Atraumatic, PERRLA, EOMI, Normocephalic Oral: Moist Mucosa Neck: Supple, No JVD, Negative Carotid Bruits Lungs: Clear to auscultation, Normal air movement, No rhonchi, No wheeze, No rales Cardiovascular: Normal S1, Normal S2, No murmurs, Irregular Rhythm, rate controlled. Abdomen: Bowel Sounds Present, Soft, Non Tender, Non-Distended, No Hepato-splenomegaly Extremities: No clubbing, No cyanosis, No edema, Capillary Refill Less than 3 Seconds Skin: No rashes, No breakdown Musculoskeletal: No Tenderness to Palpation of Joints or Extremities Lymphatic: No Cervical, Supraclavicular, or Inguinal Adenopathy Neurological: Cranial nerves II-XII grossly intact, Motor Exam 5/5 strength throughout Psych/Mental Status: Normal Affect, Appropriate, Alert and oriented to time, place, person, mood and affect Plan as stated above. He is to be discharged home today. Continue taking Eliquis 2.5 mg twice daily for A. fib. Discharge Diet: 2000 mg Sodium Diet Discharge Activity: Return to Normal Activity Weight Bearing Status: Weight bearing as tolerated Call your doctor if you observe: Shortness of breath, Dizziness, Swelling in the ankles, Chest pain Home Medications: Medications to take at Discharge Aspirin [Aspirin, Baby] 81 mg PO DAILY@0800 12/28/14 Pravastatin [Pravachol] 40 mg PO QHS 12/28/14 Amiodarone HCl 200 mg PO DAILY 04/09/16 hydralazine 50 mg tablet 75 mg PO TID #135 tab 04/15/17 Apixaban [Eliquis] 2.5 mg PO BID #180 tab 05/12/17 furosemide 40 mg tablet 40 mg PO BID #60 tab 05/26/17 pantoprazole 40 mg tablet,delayed release 40 mg PO BID #60 tab 05/26/17 clopidogrel 75 mg tablet 75 mg PO DAILY #30 tab 06/23/17 losartan 100 mg tablet 100 mg PO QDAY #90 tab 07/02/17 carvedilol 25 mg tablet 25 mg PO BID #60 tab 08/11/17 isosorbide mononitrate ER 60 mg tablet,extended release 24 hr 90 mg PO BID #90 tab 10/04/17 Novolin 70-30 100 Unit/ml Vial 25 units SQ BID 11/08/17 Primary Care Physician: Jennifer Spicer DO [Primary Care Provider] - Please follow up with your Primary Care Physician in: one week Please Follow Up With: Marco Antonio Butler MD When: 1-2 weeks Patient Instructions: What Is Heart Failure?, Heart Failure: Warning Signs of a Flare-Up, Coping with Heart Failure Disposition: Home Minutes spent on discharge:: 45 Patient Condition:: Stable Medical Necessity - Tobacco Use Smoking Status: Former smoker Meaningful Use Info Meaningful Use Diagnoses (Choose all that apply): CHF - CHF AN/ARB ordered at discharge?: Yes Documented LVEF (%): 25 Code Visit Inpatient E&M: 94191 Disch Hosp
[2017-11-10 11:55] LABS: Bedside Glucose 309 mg/dL (70-110)
--- NOTE | 2017-11-10 14:16 | PCM.PN.CARD ---
Subjectve: Patient feels much better, appears to to be euvolemic, no orthopnea, PND or shortness of breath. Was able to lay down flat and sleep last night. No chest pain. Telemetry normal sinus rhythm. Objective: Vital Signs Temp Pulse Resp BP Pulse Ox 99.0 F 83 18 148/84 H 95 11/10/17 08:31 11/10/17 14:15 11/10/17 08:31 11/10/17 08:31 11/10/17 08:31 Oxygen Flow Rate (L/min) 2 Oxygen Delivery Method Room Air Weight: 210 lb 8.663 oz Body Mass Index (BMI) 31.3 Intake and Output for Last 24 Hours 11/08/17 11/09/17 11/10/17 23:59 23:59 23:59 Intake Total 300 / 300 1900 / 1900 990 / 990 Output Total 2500 / 2500 1650 / 1650 Balance 300 / 300 -600 / -600 -660 / -660 General: Awake, Alert, Oriented x 3 HEENT: PERRL, EOMI, Sclera Non Icteric Neck: Supple, Good ROM, No Lymph Node Enlargement Lungs: Clear to auscultation Cardiovascular: Regular Rhythm, Normal S1, Normal S2, No Murmurs, No Rubs, No Gallops Vascular: No Carotid Bruits, Normal Femoral Pulses, Normal Radial Pulses, Normal Dorsalis Pedal Pulse, Normal Posterior Tibial Pulses Abdomen: Bowel Sounds Present, Soft, Non Tender, No HSM, No Organomegaly Extremities: No Cyanosis, No Clubbing, No edema Neurological: No Focal Motor or Sensory Deficit 11/10/17 07:45: WBC 8.1, RBC 4.66, Hgb 13.8, Hct 41.6, MCV 89.3, MCH 29.6, MCHC 33.2, RDW 14.5, RDW Differential 46.8 H, Plt Count 195, MPV 9.4, Immature Gran % (Auto) 0.500, Neut % (Auto) 71.9 H, Lymph % (Auto) 13.7 L, [place] % (Auto) 12.0 H, Eos % (Auto) 1.7, Baso % (Auto) 0.2, Absolute Neuts (auto) 5.8, Total Counted Not Reportable 11/10/17 07:45: Sodium 137, Potassium 3.6, Chloride 101, Carbon Dioxide 29.0, Anion Gap 7, BUN 32 H, Creatinine 1.91 H, Est GFR (MDRD) Af Amer 46 L, Est GFR (MDRD) Non-Af 38 L, BUN/Creatinine Ratio 16.8, Glucose 220 H, Calcium 8.2 L Rhythm: EKG: ECHO: Stress Test: Cardiac Cath: PCI: CT Surgery: Holter monitor: EPS: PPM: CXR: Chest CT Scan: Medical Necessity - Tobacco Use Smoking Status: Former smoker Assessment/Plan 1. Ischemic cardiomyopathy: The patient has no anginal symptoms and appears to have engaged in dietary indiscretion by eating excessively salty foods over this past weekend which has appeared to have precipitated a congestive heart failure exacerbation. His last echocardiogram in May 2017 showed an EF around 25%. His EKG showed no dynamic changes, and he has had no anginal symptoms. His peak troponin is 0.119 at this point. At this point given his chronic renal insufficiency, I would recommend holding off on repeat catheterization at this time. I reinforced to the patient his need for salt and water restriction, and I recommended a 1500 cc fluid restriction. We have put him back on his Lasix 40 mg p.o. twice daily. In the meantime he will continue his baby aspirin, Plavix, losartan, Imdur, hydralazine and Coreg. Patient was on 40 mg of Lasix twice daily at home, and would recommend resuming Lasix 40 mg p.o. twice daily once he is reached his dry weight. Do not recommend repeat echo or stress testing at this time. Patient status post AICD, and denies any palpitations, presyncope, syncope or AICD discharges. 2. Atrial fibrillation: Currently normal sinus rhythm. Recommend continuing amiodarone and Eliquis therapy. Patient does have a history of paroxysmal atrial fibrillation as well as severe LV dysfunction. 3. Hyperlipidemia: Continue statin based medications. 4. Patient may be discharged home. He has an appointment to see me on November 25. Thank you very much for the opportunity to participate in the cardiac care of your patient. Code Visit Inpatient E&M: 53771 Subs Hosp L2
--- NOTE | 2017-11-11 16:09 | CASEMGMT ---
DEVYN HUTCHINS Discharge Follow-Up Phone Call. LACE: 11 STRATA: 3 Discharge Date: 11/10/17 Adm Dx: SOB, A-Fib/RVR, Acute CHF Exac. Attempted discharge phone call @ [phone]. No answer. Message Left with DEVYN HUTCHINS phone number for Mr Monroy to return call with any questions or concerns. Joanna SUTTONN DEVYN CM
== END 2017-11-10 14:33 | disposition home or self-care (01) | DRG 280 ==
LOC: ED 11:21 → PCU 12:20
PROVIDERS: Admitting Provider Student in an Organized Health Care Education/Training Program; Emergency Provider Emergency Medicine; Family Provider Family Medicine; PCP Family Medicine; Visit Provider Student in an Organized Health Care Education/Training Program
DX: I13.0 Hypertensive heart and chronic kidney disease with heart failure and stage 1 through stage 4 chronic kidney disease, or unspecified chronic kidney disease (principal); I50.23 Acute on chronic systolic (congestive) heart failure; I21.4 Non-ST elevation (NSTEMI) myocardial infarction; I48.0 Paroxysmal atrial fibrillation; I25.10 Atherosclerotic heart disease of native coronary artery without angina pectoris; Z95.5 Presence of coronary angioplasty implant and graft; N18.3 Chronic kidney disease, stage 3 (moderate); E11.22 Type 2 diabetes mellitus with diabetic chronic kidney disease; Z95.810 Presence of automatic (implantable) cardiac defibrillator; I27.21 Secondary pulmonary arterial hypertension; I25.2 Old myocardial infarction; E78.5 Hyperlipidemia, unspecified; E66.9 Obesity, unspecified; Z68.31 Body mass index [BMI] 31.0-31.9, adult; Z87.891 Personal history of nicotine dependence; I25.5 Ischemic cardiomyopathy; Z79.4 Long term (current) use of insulin
CPT/HCPCS: 36415; 36600; 71045; 80048; 82803; 82962; 83880; 84484; 85025; 93005; 94640; 97162; 97165; 99284; A4216; J1940

== ENCOUNTER 2017-11-25 08:55 | Inpatient (IN) | payer MEDICARE, SELFPAY ==
[2016-06-12 14:02] VITALS: BMI 29.7
[2017-11-25] VITALS (33 sets, daily range): BP systolic 112–202; BP diastolic 75–117; PULSE 22–141; RESP 13–34; TEMP 35.6–37.4; O2SAT 91–100; BMI 33.2; BMI 32.1; BMI 32.2
[2017-11-25] MEDS: Furosemide 100 MG/10 ML Vial 80 MG IV ×2 (09:21→17:42)
[2017-11-25] MEDS: Aspirin 81 MG TAB.CHEW 324 MG PO (09:21)
[2017-11-25] MEDS: Nitroglycerin Infusion 250 ML 3 MG IV (09:21)
[2017-11-25 09:26] LABS: Basophil# 0.06 X10^3/uL; Basophil% 0.7 % (0-1); Eosinophil# 0.21 X10^3/uL; Eosinophils% 2.6 % (0-5); Hematocrit 44.3 % (40-54); Hemoglobin 14.5 g/dl (13.0-16.5); Lymphocyte % 9.9 % (19-41); Mean Corp Hgb Conc 32.7 g/gl (32-36); Mean Corpuscular Hgb 29.4 pg (27.0-32.0); Mean Corpuscular Volume 89.7 fL (80-94); Monocyte% 11.2 % (0-10); Neutrophil # 6.01 X10^3/uL (2.7-7.7); Neutrophil % 74.7 % (47-70); Platelet Count 238 K/mm3 (150-450); RBC Distribution Width CV 14.5 % (11.6-14.6); RBC Distribution Width SD 46.8 fl (35.1-43.9); Red Blood Count 4.94 M/mm3 (4.6-6.2); White Blood Count 8.1 K/mm3 (4.4-11.0)
[2017-11-25 09:27] LABS: POSITIVE COUNT NO; POSITIVE DIFFERENTIAL NO; POSITIVE MORPHOLOGY NO
--- NOTE | 2017-11-25 09:37 | ED.RN ---
PER DR. SMITH TITRATE NITRO DRIP EVERY 10MINS NEEDED AT MCG/MIN PER TIME.
[2017-11-25 09:38] LABS: Anion Gap 10 (5-15); BUN 29 mg/dL (7-18); BUN/Creat Ratio 14.4 RATIO (10-20); Calcium,Total 8.5 mg/dL (8.5-10.1); Chloride 101 mmol/L (98-107); Creatinine, Serum 2.01 mg/dL (0.70-1.30); EST Glomerular Filtration Rate 36 mL/min (>60); Est Glom Filt Rate - Afr Amer 43 mL/min (>60); Estimated Creatinine Clearance 36.64 ml/min; Glucose 288 mg/dL (74-106); Potassium 4.1 mmol/L (3.5-5.1); Sodium Level 137 mmol/L (136-145)
--- NOTE | 2017-11-25 09:59 | ED.VISSUMM ---
- ER Visit Summary Date of Service: 11/25/17 Chief Complaint: Acute shortness of breath History of Present Illness: The patient is a 67 M who was on hospital property when he developed acute shortness of breath and had a car. He and his daughter states he has been compliant with diet and medication. He was recently admitted for flash pulmonary edema. He has been intubated to prior visits. He denies fever, chills night sweats. He denies any ocular, visual auditory symptoms. Denies chest pain, jaw pain shoulder pain or back pain. He denies any pleuritic pain. He does quite a nausea without vomiting or diarrhea. He denies any urologic symptoms. He does have history orthopnea and increased pedal edema. Please read written note for complete detail Physical Examination: Blood pressure is elevated 202/117. Respiratory is 24 per triage. He apparently was hypoxic. He appears pale and is in respiratory distress. On my evaluation he is breathing 30+ times a minute. HEENT exam is unremarkable pink conjunctival. Lungs reveal rales and wheezing throughout. Heart is regular. Difficult to appreciate murmur gallop rub secondary to respiratory sounds. Abdomen is soft nontender. He there is pitting edema of the lower extremity 1-2+. There is no anasarca. There is no JVD or hepatojugular reflux. Neuro exam is nonfocal. Test Results: EKG reveals a sinus rhythm rate of 80 with first-degree AV block and decreased anterior force. There is evidence of old inferior myocardial infarction. White count, H&H and differential unremarkable. BUN and creatinine are 29 2.01 which is baseline. Blood sugars elevated to 88. Troponin is 0.035 most likely secondary to his CHF. Portal chest x-ray reveals normal size cardiac silhouette. There is evidence of failure with fluffiness throughout and fluid in the right major fissure. Emergency Department Course and Treatment: I was asked to see patient medially. Placed on oxygen. Nitro drip was ordered for preload reduction and to decrease his blood pressure. He was given Lasix since clinically he is fluid overloaded. Appropriate workup was obtained to rule out cardiac ischemia. In spite of initiation of therapy he became abruptly worse. He is presently on BiPAP. Dr. Butler his hyperbaric technician made aware the patient. He agrees with ICU admission. The hospitalist has been paged. Treatment Plan: Serial enzymes, preload and afterload reduction and diuresis. Disposition: ICU Impression: 1. Respiratory failure with hypoxia 2. Flash pulmonary edema 3. End-stage renal disease 4. Evaluate for acute cardiac ischemia This note was generated with [employer] dictation software. It may contain incorrect words, spelling, and punctuation that were not noted in review of the chart prior to signing ED Disposition - Plan for ED Patient: Chief Complaint: Shortness of Breath Referrals: Jennifer Spicer DO [Primary Care Provider] -
--- NOTE | 2017-11-25 11:02 | ED.RN ---
spoke with terrance hamilton in icu.
--- NOTE | 2017-11-25 12:30 | PCM.CONS.C ---
Problem List (1) Shortness of breath Status: Acute (2) CAD (coronary artery disease) Status: Chronic (3) Presence of implantable cardioverter-defibrillator (ICD) Status: Chronic (4) Secondary pulmonary arterial hypertension Status: Chronic (5) History of coronary artery stent placement Status: Chronic Comment: SARA-RCA 06/15/2011, SARA-OM1 06/30/2011, SARA-LAD 08/20/2014, SARA-Prox- RCA 06/08/2016 (6) Atherosclerosis of coronary artery of [place] heart without angina pectoris Status: Chronic Comment: SARA-RCA 06/15/2011, SARA-OM1 06/30/2011, SARA-LAD 08/20/2014, SARA-Prox- RCA 06/08/2016 (7) Paroxysmal atrial fibrillation Status: Chronic (8) Hypertension Status: Chronic Qualifiers: (9) Hyperlipidemia Status: Chronic Qualifiers: (10) Hypertensive emergency Status: Resolved (11) Systolic CHF, acute on chronic Status: Chronic (12) Cardiomyopathy, ischemic Status: Chronic Reason for Consult Date of Consultation: 11/25/17 Reason for Consultation: Coronary artery disease, ischemic cardiomyopathy, flash pulmonary edema, hypertensive emergency, status post defibrillator, pulmonary hypertension, chronic renal insufficiency History of Present Illness: The patient is a 67 year old M, fairly well known to me with a history of coronary artery disease status post emergent angioplasty and stenting to his proximal right coronary artery several years ago at [facility] when he presented with acute inferior wall ST elevation myocardial infarction and bradycardia. He required temporary pacemaker and emergent catheterization. We are unable to pass a stent to the distal RCA given the severe tortuosity and calcification so only a proximal stent was deployed. No additional stenting was performed. At that time he received an intrinsic balloon pump which was subsequently discontinued. Patient also has a history of atrial fibrillation on chronic amiodarone and Eliquis therapy. He is currently in normal sinus rhythm. In May 2017 the patient's repeat echocardiogram showed an EF of 25%. In addition he underwent a non-walking nuclear stress test which showed old anterior apical infarct as well as inferior lateral infarct. The patient is status post dual-chamber pacemaker as well as AICD for ischemic cardiomyopathy. In addition he has a history of hypertension, hypercholesterolemia, LV dysfunction, chronic renal insufficiency and medical and dietary noncompliance. The patient was doing well up until this morning when he was getting out of his car to come see us in the office when he developed acute shortness of breath, wheezing, but no chest pain or angina. Patient was found to be severely hypertensive in the emergency room and was felt to have flash pulmonary edema. He was placed on BiPAP therapy, given IV Lasix, and started on IV nitroglycerin drip titrated up to 20mcg/kg/min. his EKG showed normal sinus rhythm with old anteroseptal wall OH, and old inferior wall OH. No acute changes. Currently the patient is resting comfortably on his BiPAP machine he has no chest pain he is heme and apically stable and still hypertensive despite IV nitroglycerin. He reports that he was taking and tolerating his medicines well and denies any medical noncompliance or dietary noncompliance. He has a log of his blood pressures are trending between 130s-160s systolic. [] Past Medical History Allergies/Adverse Reactions: Allergies atorvastatin calcium [From Lipitor] Allergy (Verified 11/25/17 08:58) Unknown diltiazem Allergy (Verified 11/25/17 08:58) Angioedema Home Medications: Ambulatory Orders Medication Instructions Recorded Aspirin [Aspirin, Baby] 81 mg PO DAILY@0800 12/28/14 Pravastatin [Pravachol] 40 mg PO QHS 12/28/14 Amiodarone HCl 200 mg PO DAILY 04/09/16 clopidogrel 75 mg tablet 75 mg PO DAILY #30 tab 06/23/17 Novolin 70-30 100 Unit/ml Vial 25 units SQ BID 11/08/17 Apixaban [Eliquis] 2.5 mg PO BID 11/25/17 Carvedilol 25 mg PO BID 11/25/17 Furosemide [Lasix] 40 mg PO BID 11/25/17 Hydralazine HCl 75 mg PO TID 11/25/17 Isosorbide Mononitrate [Isosorbide 90 mg PO BID 11/25/17 Mononitrate ER] Losartan Potassium 100 mg PO QDAY 11/25/17 Pantoprazole Sodium [Protonix] 40 mg PO BID 11/25/17 Past Medical History (Chronic Problems): Chronic Problems (Last Reviewed 05/24/17 @ 15:10 by Melania Mendoza) CAD (coronary artery disease) (Chronic) Presence of implantable cardioverter-defibrillator (ICD) (Chronic) Type 2 diabetes mellitus without complications (Chronic) DDD (degenerative disc disease) (Chronic) 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) History of coronary artery stent placement (Chronic ~06/08/16) SARA-RCA 06/15/2011, SARA-OM1 06/30/2011, SARA-LAD 08/20/2014, SARA-Prox- RCA 06/08/2016 Atherosclerosis of coronary artery of [place] heart without angina pectoris (Chronic) SARA-RCA 06/15/2011, SARA-OM1 06/30/2011, SARA-LAD 08/20/2014, SARA-Prox- RCA 06/08/2016 Paroxysmal atrial fibrillation (Chronic) Hypertension (Chronic) Hyperlipidemia (Chronic) Type II diabetes mellitus (Chronic) Hyperkalemia (Chronic) Chronic renal failure, stage 3 (moderate) (Chronic) STEMI (ST elevation myocardial infarction) (Chronic) Anemia of chronic renal failure, stage 3 (moderate) (Chronic) Obesity (BMI 30.0-34.9) (Chronic) Systolic CHF, acute on chronic (Chronic) Cardiomyopathy, ischemic (Chronic) Surgical History: - - PCI. Psychiatric History: No pertinent psych hx, - - unknow - pt is intubated and unable to give hx. No family present - *Family History Maternal Family History: Family History (Last Reviewed 05/24/17 @ 15:10 by Melania Mendoza) Brother Sudden cardiac History Items: No pertinent history Paternal Family History: Family History (Last Reviewed 05/24/17 @ 15:10 by Melania Mendoza) Brother Sudden cardiac History Items: No pertinent history Smoking Status: Former smoker Review of Systems - Review of Systems General: Denies: Fever, Night Sweats, Fatigue Cardiovascular: Reports: Shortness of Breath, Shortness of Breath at Rest. Denies: Chest Discomfort, Orthopnea, PND, Peripheral Edema, Palpitations, Lightheadedness, Dizziness, Near Syncope, Syncope Respiratory: Denies: Cough, Sputum Production, Hemoptysis Gastrointestinal: Denies: Hematemesis, Hematochezia, Melena Genitourinary: Denies: Dysuria, Hematuria Skin: Denies: Rash Subjectve: Patient laying in bed, no acute distress, tolerating BiPAP well, no chest pain. Heme and apically stable. Objective: Vital Signs Temp Pulse Resp BP Pulse Ox 96.1 F L 99 24 H 165/97 H 93 08/23/18 08:56 11/25/17 10:42 11/25/17 10:42 11/25/17 10:42 11/25/17 10:42 Weight: 217 lb 2.485 oz Body Mass Index (BMI) 32.1 General: Awake, Alert, Oriented x 3 HEENT: PERRL, EOMI, Sclera Non Icteric Neck: Supple, Good ROM, No Lymph Node Enlargement Lungs: Rales - Jigar Bases, Rhonchi, Inspiratory Wheezes - Jigar Cardiovascular: Regular Rhythm, Normal S1, Normal S2, No Rubs, No Gallops Murmur Murmur: Grade 2/6, Holosystolic Vascular: No Carotid Bruits, Normal Femoral Pulses, Normal Radial Pulses, Normal Dorsalis Pedal Pulse, Normal Posterior Tibial Pulses Abdomen: Bowel Sounds Present, Soft, Non Tender, No HSM, No Organomegaly Extremities: No Cyanosis, No Clubbing, No edema Neurological: No Focal Motor or Sensory Deficit Rhythm: EKG: ECHO: Stress Test: Cardiac Cath: PCI: CT Surgery: Holter monitor: EPS: PPM: CXR: Chest CT Scan: Assessment/Plan 1. Ischemic cardiomyopathy: The patient presents with acute hypertensive emergency superimposed upon severe LV dysfunction, ischemic cardiomyopathy, and pulmonary hypertension. He is responded well to BiPAP therapy, IV Lasix, and IV nitroglycerin drip. My suspicion is the patient has a combination of worsening renal insufficiency despite his lower creatinine, some mild dietary noncompliance, and tolerance to antihypertensive medications. My recommendation would be to continue IV diuretic therapy to remove him from BiPAP therapy as well as nebulizer therapy given his wheezing. Would like to wean off his nitroglycerin drip and transition him to Imdur increasing from 90-120 mill grams p.o. twice daily, hydralazine 75 mg 3 times daily, and increase his Lasix to 80 mg p.o. twice daily. The patient has deterioration of his creatinine despite optimal medical therapy he may require renal consultation for sooner than later dialysis as this is his second admission in less than a month for congestive heart failure symptoms and fluid removal. In addition I would decrease his Coreg to 12.5 mg's p.o. twice daily until he is optimized on his diuretic therapy and then titrated back up to 25 mg p.o. twice daily. Patient requires a 1500 cc fluid restriction going forward. 2. Coronary artery disease: Patient has had no chest pain symptoms, and has known significant coronary artery disease. I would not recommend repeat catheterization at this time given his lack of significant ischemia by stress testing in May 2017 as well as his chronic renal insufficiency. In the meantime we will continue baby aspirin and Plavix going forward. In addition the patient is currently on Eliquis therapy and would need to be held for several days prior to any catheterization anyhow. 3. Hyperlipidemia: Continue statin based therapy. 4. Atrial fibrillation: Patient is currently in normal sinus rhythm by EKG. Continue amiodarone and Eliquis therapy. 5. Thank you very much for the opportunity to participate in the cardiac care of your patient. Discussed with Dr. Cortez. Consultation time took place between 12 PM and 12:45 PM. Code Visit Inpatient E&M: 29101 Init Hosp L3
[2017-11-25] MEDS: hydrALAZINE 25 MG Tablet 75 MG PO ×2 (14:48→22:13)
--- NOTE | 2017-11-25 16:09 | PCM.HP.STD ---
Problem List (1) Shortness of breath Status: Acute (2) CAD (coronary artery disease) Status: Chronic (3) Presence of implantable cardioverter-defibrillator (ICD) Status: Chronic (4) Type 2 diabetes mellitus without complications Status: Chronic (5) Secondary pulmonary arterial hypertension Status: Chronic (6) History of coronary artery stent placement Status: Chronic Comment: SARA-RCA 06/15/2011, SARA-OM1 06/30/2011, SARA-LAD 08/20/2014, SARA-Prox- RCA 06/08/2016 (7) Paroxysmal atrial fibrillation Status: Chronic (8) Hypertension Status: Chronic Qualifiers: (9) Hyperlipidemia Status: Chronic Qualifiers: (10) Chronic renal failure, stage 3 (moderate) Status: Chronic (11) Obesity (BMI 30.0-34.9) Status: Chronic (12) Systolic CHF, acute on chronic Status: Chronic (13) Cardiomyopathy, ischemic Status: Chronic History of Present Illness Date of Admission: 11/25/17 Chief Complaint: SOB The patient is a 67 year old M with a h/o a-fib, CAD s/p stent, systolic heart failure, IDDM2 who presents as a rapid response in the hospital. He was coming here today for his cardiology appointment and began to feel short of breath and had to sit down. He daughter came in to ask for help and a rapid response was called. In the ER he was found to have a very elevated blood pressure and he was wheezing and sounded wet. He has had this happen before and was just discharged for something similar on 11/10. He states that he has been compliant with his medication since his discharge and has been doing ok at home. He was started on BiPAP and a nitroglycerine drip which has helped decrease his BP and his oxygenation has improved. He had taken a lasix this morning and he was given more IV lasix in the ED. Past Medical History Past Medical History (Chronic Problems): Chronic Problems (Last Reviewed 05/24/17 @ 15:10 by Melania Mendoza) CAD (coronary artery disease) (Chronic) Presence of implantable cardioverter-defibrillator (ICD) (Chronic) Type 2 diabetes mellitus without complications (Chronic) DDD (degenerative disc disease) (Chronic) 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) History of coronary artery stent placement (Chronic ~06/08/16) SARA-RCA 06/15/2011, SARA-OM1 06/30/2011, SARA-LAD 08/20/2014, SARA-Prox- RCA 06/08/2016 Atherosclerosis of coronary artery of [place] heart without angina pectoris (Chronic) SARA-RCA 06/15/2011, SARA-OM1 06/30/2011, SARA-LAD 08/20/2014, SARA-Prox- RCA 06/08/2016 Paroxysmal atrial fibrillation (Chronic) Hypertension (Chronic) Hyperlipidemia (Chronic) Type II diabetes mellitus (Chronic) Hyperkalemia (Chronic) Chronic renal failure, stage 3 (moderate) (Chronic) STEMI (ST elevation myocardial infarction) (Chronic) Anemia of chronic renal failure, stage 3 (moderate) (Chronic) Obesity (BMI 30.0-34.9) (Chronic) Systolic CHF, acute on chronic (Chronic) Cardiomyopathy, ischemic (Chronic) Medical History: Medical History (Last Reviewed 05/24/17 @ 15:10 by Melania Mendoza) Esophagitis determined by endoscopy (Acute) Onset Date: ~05/06/17 K20.9 Type 2 diabetes mellitus without complications (Chronic) E11.9 DDD (degenerative disc disease) (Chronic) 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) I27.21 Atherosclerosis of coronary artery of [place] heart without angina pectoris (Chronic) I25.10 SARA-RCA 06/15/2011, SARA-OM1 06/30/2011, SARA-LAD 08/20/2014, SARA-Prox- RCA 06/08/2016 Paroxysmal atrial fibrillation (Chronic) I48.0 Hypertension (Chronic) I10 Hyperlipidemia (Chronic) E78.5 Type II diabetes mellitus (Chronic) E11.9 Hyperkalemia (Chronic) E87.5 Chronic renal failure, stage 3 (moderate) (Chronic) N18.3 STEMI (ST elevation myocardial infarction) (Chronic) Cardiogenic shock (Resolved) Onset Date: ~06/08/16 R57.0 Hypertensive emergency (Resolved) I16.1 Anemia of chronic renal failure, stage 3 (moderate) (Chronic) N18.3, D63.1 Obesity (BMI 30.0-34.9) (Chronic) E66.9 Systolic CHF, acute on chronic (Chronic) I50.23 Cardiomyopathy, ischemic (Chronic) I25.5 History of cardioversion Onset Date: ~04/10/16 Z98.890 01/14/15 (unsuccessful), 04/10/2016 Old myocardial infarction I25.2 inferior lateral and Anterior Apical Allergies atorvastatin calcium [From Lipitor] Allergy (Verified 11/25/17 08:58) Unknown diltiazem Allergy (Verified 11/25/17 08:58) Angioedema Home Medications: Ambulatory Orders Medication Instructions Recorded Aspirin [Aspirin, Baby] 81 mg PO DAILY@0800 12/28/14 Pravastatin [Pravachol] 40 mg PO QHS 12/28/14 Amiodarone HCl 200 mg PO DAILY 04/09/16 clopidogrel 75 mg tablet 75 mg PO DAILY #30 tab 06/23/17 Novolin 70-30 100 Unit/ml Vial 25 units SQ BID 11/08/17 Apixaban [Eliquis] 2.5 mg PO BID 11/25/17 Carvedilol 25 mg PO BID 11/25/17 Furosemide [Lasix] 40 mg PO BID 11/25/17 Hydralazine HCl 75 mg PO TID 11/25/17 Isosorbide Mononitrate [Isosorbide 90 mg PO BID 11/25/17 Mononitrate ER] Losartan Potassium 100 mg PO QDAY 11/25/17 Pantoprazole Sodium [Protonix] 40 mg PO BID 11/25/17 Surgical History: Surgical History (Last Updated 07/08/17 @ 09:33 by Huong Parikh) Presence of implantable cardioverter-defibrillator (ICD) (Chronic) Z95.810 History of coronary artery stent placement (Chronic) Onset Date: ~06/08/16 Z95.5 SARA-RCA 06/15/2011, SARA-OM1 06/30/2011, SARA-LAD 08/20/2014, SARA-Prox- RCA 06/08/2016 Surgical History: - - PCI. Psychiatric History: No pertinent psych hx, - - unknow - pt is intubated and unable to give hx. No family present Smoking Status: Former smoker - *Family History Maternal Family History: Family History (Last Reviewed 05/24/17 @ 15:10 by Melania Mendoza) Brother Sudden cardiac History Items: No pertinent history Paternal Family History: Family History (Last Reviewed 05/24/17 @ 15:10 by Melania Mendoza) Brother Sudden cardiac History Items: No pertinent history Review of Systems Constitutional: Denies: Chills, Fever, Weight Change HEENT: Denies: Head Aches, Sinus Congestion, Sinus Drainage Cardiovascular: Reports: Chest Pain Respiratory: Reports: Shortness of Breath, Shortness of breath upon exertion, Wheezing Gastrointestinal: Denies: Abdominal Pain, Nausea, Vomiting Genitourinary: Denies: Dysuria Musculoskeletal: Denies: Joint Pain, Joint Tenderness Skin: Denies: Rash, Wounds Neurological: Denies: Numbness, Tingling, Focal weakness Psychiatric: Denies: Anxiety, Depression, Homicidal Ideations, Suicidal Ideations Hematologic/ Lymphatic: Denies: Easy Bruising, Easy Bleeding VTE Information - Inpt Only VTE Present on Admission: No - Physical Exam General: Alert, Oriented x3, Cooperative, No apparent distress, - - on BiPAP HEENT: Atraumatic, EOMI, Normocephalic Oral: Moist Mucosa Neck: Supple Lungs: Clear to auscultation, Normal air movement, No rhonchi, No wheeze, Diminished - b/l bases Cardiovascular: Regular rate, Regular Rhythm, Normal S1, Normal S2, No murmurs Abdomen: Soft, Non Tender, Non-Distended, No Hepato-splenomegaly Skin: No rashes, No breakdown Neurological: Neuro grossly intact, Sensory exam intact to light touch and pain Psych/Mental Status: Normal Affect, Appropriate Vital Signs Temp Pulse Resp BP Pulse Ox 98.8 F 70 17 151/89 H 98 11/25/17 16:00 11/25/17 16:00 11/25/17 16:00 11/25/17 16:00 11/25/17 16:00 Oxygen Flow Rate (L/min) 4 Oxygen Delivery Method Nasal Cannula Weight: 217 lb 2.485 oz Body Mass Index (BMI) 32.1 Laboratory Tests Past 24 Hrs 11/25/17 15:00 MRSA (PCR) Pending Assessment/Plan All Active Problems (Last Reviewed 05/24/17 @ 15:10 by Melania Mendoza) Shortness of breath (Acute) Esophagitis determined by endoscopy (Acute ~05/06/17) Cardiogenic shock (Resolved ~06/08/16) Hypertensive emergency (Resolved) Abdominal pain (Resolved) Acute pulmonary edema (Resolved) Acute respiratory failure (Resolved) Atrial fibrillation with RVR (Resolved) Chest pain (Resolved) Elevated troponin (Resolved) Metabolic acidosis (Resolved) 1. Acute systolic heart failure/A-fib/Hypertensive urgency/ Ischemic cardiomyopathy/HLD - This episode appears to be d/t hypertensive urgency with LV dysfunction - Cardiology was consulted and evaluated the patient - Attempting improved medical management with increasing imdur and lasix - C/w ASA and plavix but will hold the eliquis for possible cath. Eliquis has no effect after about 24 hours from the last dose which was this morning - C/w statin, hold the coreg and c/w the amiodaron, losartan and hydralazione - Admit to ICU - c/w BiPAP - Will discuss with family the role of palliative care in the outpatient setting to assist with his cardiac management in the home 2. IDDM2 - Stable - On 70/30 at home and will continue with accucheck 3. GERD - stable - c/w PPI DVT: Heparin BID Diet: Cardiac/DM Code: NEETA Dispo: Pending any cardiac intervention Code Visit Inpatient E&M: 63928 Init Hosp L3
[2017-11-25 16:20] LABS: Bedside Glucose 193 mg/dL (70-110)
[2017-11-25 17:34] LABS: M R Staph aureus DNA By PCR Negative (Negative); Probe Check PASS; Specimen Processing Control PASS
[2017-11-25] MEDS: Heparin Injection (Vial) 5,000 UNIT/ML VIAL 5000 UNIT SC (22:12)
[2017-11-25] MEDS: Carvedilol 12.5 MG Tablet PO (22:13)
[2017-11-25] MEDS: Pantoprazole Sodium 40 MG Tablet PO (22:14)
[2017-11-25] MEDS: Pravastatin 40 MG Tablet PO (22:14)
[2017-11-25 22:25] LABS: Bedside Glucose 164 mg/dL (70-110)
[2017-11-26] VITALS (27 sets, daily range): BP systolic 98–146; BP diastolic 64–96; PULSE 58–72; RESP 12–22; TEMP 36.5–37.3; O2SAT 92–99
[2017-11-26 03:46] LABS: Hematocrit 39.8 % (40-54); Hemoglobin 13.2 g/dl (13.0-16.5); Mean Corp Hgb Conc 33.2 g/gl (32-36); Mean Corpuscular Hgb 30.1 pg (27.0-32.0); Mean Corpuscular Volume 90.9 fL (80-94); Mean Platelet Vol. 8.7 fl (6.2-12.0); Platelet Count 224 K/mm3 (150-450); RBC Distribution Width CV 14.6 % (11.6-14.6); RBC Distribution Width SD 47.6 fl (35.1-43.9); Red Blood Count 4.38 M/mm3 (4.6-6.2); Scan Indicated on CBC? Y/N NO; White Blood Count 10.4 K/mm3 (4.4-11.0)
[2017-11-26 03:57] LABS: Anion Gap 9 (5-15); BUN 29 mg/dL (7-18); BUN/Creat Ratio 13.6 RATIO (10-20); Calcium,Total 8.4 mg/dL (8.5-10.1); Chloride 100 mmol/L (98-107); Creatinine, Serum 2.13 mg/dL (0.70-1.30); EST Glomerular Filtration Rate 33 mL/min (>60); Est Glom Filt Rate - Afr Amer 40 mL/min (>60); Estimated Creatinine Clearance 33.45 ml/min; Glucose 96 mg/dL (74-106); Potassium 3.6 mmol/L (3.5-5.1); Sodium Level 141 mmol/L (136-145)
[2017-11-26] MEDS: hydrALAZINE 25 MG Tablet 75 MG PO ×3 (05:05→21:58)
[2017-11-26] MEDS: 0.9% NaCl Peripheral Flush Adult/Peds IV ×3 (05:05→17:17)
[2017-11-26] MEDS: CHLORHEXIDINE GLUC 2% CLOTH 1 EACH TOWELETTE TOPICAL (05:21)
[2017-11-26 07:30] LABS: Bedside Glucose 117 mg/dL (70-110)
[2017-11-26] MEDS: Aspirin 81 MG TAB.CHEW PO (07:53)
--- NOTE | 2017-11-26 09:34 | CASEMGMT ---
RN LISET Assessment completed, see link. DC Plan: home No dc needs identified @ this time. Pt states he was independent with ADL's, drove. RN LISET discussed having assist with transportation as recommended by physician, pt states he has his car here @ [facility]. Has cane for ambulatory assist. Nii SUTTONN RN ACM
[2017-11-26] MEDS: Heparin Injection (Vial) 5,000 UNIT/ML VIAL 5000 UNIT SC ×2 (09:44→21:59)
[2017-11-26] MEDS: Pantoprazole Sodium 40 MG Tablet PO ×2 (09:44→21:58)
[2017-11-26] MEDS: Clopidogrel Bisulfate 75 MG Tablet PO (09:44)
[2017-11-26] MEDS: Amiodarone 200 MG Tablet PO (09:44)
[2017-11-26] MEDS: Furosemide 100 MG/10 ML Vial 80 MG IV ×2 (09:44→17:17)
[2017-11-26] MEDS: Carvedilol 12.5 MG Tablet PO ×2 (09:44→21:59)
[2017-11-26] MEDS: Losartan Potassium 100 MG Tablet PO (09:45)
--- NOTE | 2017-11-26 10:04 | PCM.PN.CARD ---
Subjectve: Patient is off of BiPAP as of 3 PM yesterday, and is taken his medications without difficulty. He feels and looks great! He denies any chest pain symptoms. Blood pressure is much better controlled. He denied any lower extremity edema at home. He was not weighing himself at home but reports that he was compliant with his medications and dietary restrictions. Objective: Vital Signs Temp Pulse Resp BP Pulse Ox 98.9 F 71 18 120/70 92 11/26/17 08:00 11/26/17 09:00 11/26/17 09:00 11/26/17 09:00 11/26/17 09:00 Oxygen Flow Rate (L/min) 2 Oxygen Delivery Method Room Air Weight: 212 lb 4.882 oz Body Mass Index (BMI) 32.1 Intake and Output for Last 24 Hours 11/24/17 11/25/17 11/26/17 23:59 23:59 23:59 Intake Total 780 / 780 240 / 240 Output Total 2175 / 2175 300 / 300 Balance -1395 / -1395 -60 / -60 General: Awake, Alert, Oriented x 3 HEENT: PERRL, EOMI, Sclera Non Icteric Neck: Supple, Good ROM, No Lymph Node Enlargement Lungs: Clear to auscultation Cardiovascular: Regular Rhythm, Normal S1, Normal S2, No Rubs, No Gallops Murmur Murmur: Grade 2/6, Holosystolic Vascular: No Carotid Bruits, Normal Femoral Pulses, Normal Radial Pulses, Normal Dorsalis Pedal Pulse, Normal Posterior Tibial Pulses Abdomen: Bowel Sounds Present, Soft, Non Tender, No HSM, No Organomegaly Extremities: No Cyanosis, No Clubbing, No edema Neurological: No Focal Motor or Sensory Deficit 11/26/17 03:40: WBC 10.4, RBC 4.38 L, Hgb 13.2, Hct 39.8 L, MCV 90.9, MCH 30.1, MCHC 33.2, RDW 14.6, RDW Differential 47.6 H, Plt Count 224, MPV 8.7 11/26/17 03:40: Sodium 141, Potassium 3.6, Chloride 100, Carbon Dioxide 32.0, Anion Gap 9, BUN 29 H, Creatinine 2.13 H, Est GFR (MDRD) Af Amer 40 L, Est GFR (MDRD) Non-Af 33 L, BUN/Creatinine Ratio 13.6, Glucose 96, Calcium 8.4 L Rhythm: EKG: ECHO: Stress Test: Cardiac Cath: PCI: CT Surgery: Holter monitor: EPS: PPM: CXR: Chest CT Scan: Medical Necessity - Tobacco Use Smoking Status: Former smoker Assessment/Plan 1. Ischemic cardiomyopathy: The patient presents with acute hypertensive emergency superimposed upon severe LV dysfunction, ischemic cardiomyopathy, and pulmonary hypertension. He is responded well to BiPAP therapy, IV Lasix, and IV nitroglycerin drip. My suspicion is the patient has a combination of worsening renal insufficiency despite his lower creatinine, some mild dietary noncompliance, and tolerance to antihypertensive medications. Patient had approximately 1.8 L removed with IV diuretic therapy, and he is off his BiPAP and nitroglycerin drip. His blood pressure is much better controlled. Would recommend discontinuation of his IV Lasix, and switching him to Lasix 80 mg p.o. twice daily as I believe he requires additional diuretic therapy as this is a second admission for CHF exacerbation. I advised the patient to weigh himself on a daily basis and to take an extra Lasix should he increase his weight by 3 pounds. In addition we have decreased his Coreg to 12.5 mg p.o. twice daily as he continues to have CHF exacerbations. We will titrate this up if his blood pressure is not well controlled. In addition we have increased his Imdur to 120 mg p.o. twice daily and continued his hydralazine 75 mg p.o. twice daily. His episodes appear to be precipitated by acute episodes of hypotension more so than fluid overload. Our goal should be to maintain a systolic blood pressure less than 120 to avoid recurrent flash pulmonary edema. He may require increasing his hydralazine to 100 mg 3 times daily. In addition I would decrease his Coreg to 12.5 mg's p.o. twice daily until he is optimized on his diuretic therapy and then titrated back up to 25 mg p.o. twice daily. Patient requires a 1500 cc fluid restriction going forward. 2. Coronary artery disease: Patient has had no chest pain symptoms, and has known significant coronary artery disease. I would not recommend repeat catheterization at this time given his lack of significant ischemia by stress testing in May 2017 as well as his chronic renal insufficiency. In the meantime we will continue baby aspirin and Plavix going forward. In addition the patient is currently on Eliquis therapy and would need to be held for several days prior to any catheterization anyhow. 3. Hyperlipidemia: Continue statin based therapy. 4. Atrial fibrillation: Patient is currently in normal sinus rhythm by EKG. Continue amiodarone and Eliquis therapy. 5. Thank you very much for the opportunity to participate in the cardiac care of your patient. Patient may be downgraded to PCU status. Code Visit Inpatient E&M: 42470 Subs Hosp L2
--- NOTE | 2017-11-26 10:05 | PCM.PN.HOSP ---
Subjective: Doing well off the BiPAP and the nitro gtt is stopped. Blood pressure is better controlled and he feels better over all. Did have some popping in his right ear that he was going to see his PCP for. Vitals/I&O's: Vital Signs Temp Pulse Resp BP Pulse Ox 98.9 F 71 18 120/70 92 11/26/17 08:00 11/26/17 09:00 11/26/17 09:00 11/26/17 09:00 11/26/17 09:00 Oxygen Flow Rate (L/min) 2 Oxygen Delivery Method Room Air Weight: 212 lb 4.882 oz Body Mass Index (BMI) 32.1 Intake and Output for Last 24 Hours 11/24/17 11/25/17 11/26/17 23:59 23:59 23:59 Intake Total 780 / 780 240 / 240 Output Total 2175 / 2175 300 / 300 Balance -1395 / -1395 -60 / -60 General: Alert, Oriented x3, Cooperative, No apparent distress HEENT: Atraumatic, EOMI, Normocephalic, TM's Clear - on the left, the right was obstructed by cerumen but was not impacted Oral: Moist Mucosa Neck: Supple Lungs: Clear to auscultation, Normal air movement, No rhonchi, No wheeze, No rales, Diminished - at the bases Cardiovascular: Regular rate, Regular Rhythm, Murmur - 2/6 NGUYEN Abdomen: Soft, Non Tender, Non-Distended, No Hepato-splenomegaly Skin: No rashes, No breakdown Neurological: Neuro grossly intact, Sensory exam intact to light touch and pain Psych/Mental Status: Normal Affect, Appropriate Laboratory Results 11/25/17 15:00: MRSA (PCR) Negative 11/25/17 16:05: POC Glucose 193 H 11/25/17 22:08: POC Glucose 164 H 11/26/17 03:40: WBC 10.4, RBC 4.38 L, Hgb 13.2, Hct 39.8 L, MCV 90.9, MCH 30.1, MCHC 33.2, RDW 14.6, RDW Differential 47.6 H, Plt Count 224, MPV 8.7 11/26/17 03:40: Sodium 141, Potassium 3.6, Chloride 100, Carbon Dioxide 32.0, Anion Gap 9, BUN 29 H, Creatinine 2.13 H, Estim Creat Clear Calc 33.45, Est GFR (MDRD) Af Amer 40 L, Est GFR (MDRD) Non-Af 33 L, BUN/Creatinine Ratio 13.6, Glucose 96, Calcium 8.4 L 11/26/17 07:25: POC Glucose 117 H Current Medications Amiodarone HCl (Cordarone) 200 mg PO DAILY [facility] Last Admin: 11/26/17 09:44 Dose: 200 mg Aspirin (Aspirin, Baby) 81 mg PO DAILY@0800 [facility] Last Admin: 11/26/17 07:53 Dose: 81 mg Carvedilol (Coreg) 12.5 mg PO BID [facility] Last Admin: 11/26/17 09:44 Dose: 12.5 mg Chlorhexidine Gluconate () 1 each TOPICAL DAILY [facility] Last Admin: 11/26/17 05:21 Dose: 1 each Clopidogrel Bisulfate (Plavix) 75 mg PO DAILY [facility] Last Admin: 11/26/17 09:44 Dose: 75 mg Dextrose (D50w Syringe) 0 gm IV X1 PRN; Protocol PRN Reason: Hypoglycemia Furosemide (Lasix) 80 mg IV BID@1000,1800 [facility] Last Admin: 11/26/17 09:44 Dose: 80 mg Glucagon () 1 mg IM .X1 PRN PRN Reason: Hypoglycemia Heparin Sodium (Porcine) (Heparin Na) 5,000 unit SC Q12 [facility] Last Admin: 11/26/17 09:44 Dose: 5,000 unit Hydralazine HCl (Apresoline) 75 mg PO TID [facility] Last Admin: 11/26/17 05:05 Dose: 75 mg Nitroglycerin/Dextrose () 250 mls @ 3 mls/hr IV .[id number] STA; 5 MCG/MIN PRN Reason: Protocol Stop: 11/28/17 20:24 Last Admin: 11/25/17 09:21 Dose: 3 mls/hr Insulin Aspart (Novolog Mix 70-30 Flexpen Syrn) 25 units SC BID [facility] Last Admin: 11/26/17 07:53 Dose: 25 u Isosorbide Mononitrate (Imdur) 120 mg PO BID [facility] Last Admin: 11/26/17 09:44 Dose: 120 mg Losartan Potassium (Cozaar) 100 mg PO DAILY [facility] Last Admin: 11/26/17 09:45 Dose: 100 mg Magnesium Hydroxide (Milk Of Magnesia) 30 ml PO DAILY PRN PRN PRN Reason: Constipation Pantoprazole Sodium (Protonix) 40 mg PO BID [facility] Last Admin: 11/26/17 09:44 Dose: 40 mg Pravastatin Sodium (Pravachol) 40 mg PO QHS [facility] Last Admin: 11/25/17 22:14 Dose: 40 mg Sodium Chloride () 5 - 30 ml IV UD PRN PRN Reason: SALINE FLUSH Last Admin: 11/26/17 09:44 Dose: 10 ml Medical Necessity - Tobacco Use Smoking Status: Former smoker Assessment/Plan All Active Problems (Last Reviewed 05/24/17 @ 15:10 by Melania Mendoza) Shortness of breath (Acute) Esophagitis determined by endoscopy (Acute ~05/06/17) Cardiogenic shock (Resolved ~06/08/16) Hypertensive emergency (Resolved) Abdominal pain (Resolved) Acute pulmonary edema (Resolved) Acute respiratory failure (Resolved) Atrial fibrillation with RVR (Resolved) Chest pain (Resolved) Elevated troponin (Resolved) Metabolic acidosis (Resolved) 1. Acute systolic heart failure with acute hypoxic respiratory failure/A-fib/Hypertensive urgency/ Ischemic cardiomyopathy/HLD - This episode appears to be d/t hypertensive urgency with LV dysfunction - Cardiology was consulted and evaluated the patient - Attempting improved medical management with increasing imdur and lasix - C/w ASA and plavix but will hold the eliquis. Eliquis has no effect after about 24 hours from the last dose which was last morning - C/w statin, coreg was decreased to 12.5 BID and c/w the amiodaron, losartan and hydralazione - Admit to ICUfer to PCU - off BiPAP - 20 minutes spent discussing advanced care plannin 2. IDDM2 - Stable - On 70/30 at home and will continue with accucheck 3. GERD - stable - c/w PPI DVT: Heparin BID Diet: Cardiac/DM Code: DRCC-A Dispo: Pending any cardiac intervention Code Visit Inpatient E&M: 86511 Subs Hosp L2 Procedures: 59093 Advncd Care Plan 30 Min
[2017-11-26 11:16] LABS: Bedside Glucose 257 mg/dL (70-110)
--- NOTE | 2017-11-26 13:46 | NURSING ---
No order in computer for hoyt catheter, hoyt d/c'd at this time
[2017-11-26 16:30] LABS: Bedside Glucose 214 mg/dL (70-110)
[2017-11-26] MEDS: Pravastatin 40 MG Tablet PO (21:58)
[2017-11-26 22:10] LABS: Bedside Glucose 228 mg/dL (70-110)
[2017-11-27] VITALS (15 sets, daily range): BP systolic 120–145; BP diastolic 65–76; PULSE 56–72; RESP 16–20; TEMP 36.2–36.7; O2SAT 90–97
[2017-11-27] MEDS: hydrALAZINE 25 MG Tablet 75 MG PO ×3 (05:07→21:23)
[2017-11-27 06:57] LABS: Bedside Glucose 153 mg/dL (70-110)
[2017-11-27] MEDS: Aspirin 81 MG TAB.CHEW PO (08:44)
[2017-11-27] MEDS: Pantoprazole Sodium 40 MG Tablet PO ×2 (09:21→21:23)
[2017-11-27] MEDS: Losartan Potassium 100 MG Tablet PO (09:21)
[2017-11-27] MEDS: Amiodarone 200 MG Tablet PO (09:21)
[2017-11-27] MEDS: Carvedilol 12.5 MG Tablet PO (09:22)
[2017-11-27] MEDS: Furosemide 100 MG/10 ML Vial 80 MG IV (09:22)
[2017-11-27] MEDS: Clopidogrel Bisulfate 75 MG Tablet PO (09:23)
[2017-11-27] MEDS: Heparin Injection (Vial) 5,000 UNIT/ML VIAL 5000 UNIT SC (09:31)
[2017-11-27 09:41] LABS: Bedside Glucose 251 mg/dL (70-110)
--- NOTE | 2017-11-27 11:13 | PCM.PN.CARD ---
Subjectve: Patient continues to improve, no 24 hour events. No further chest pain. Patient was ambulated this morning around the floor, and he had no significant desaturation. His maximum desaturation was 90%, and his blood pressure at the end of this walk was around 140 systolic. He was asymptomatic at that time. Telemetry was negative. Objective: Vital Signs Temp Pulse Resp BP Pulse Ox 97.2 F L 61 16 122/76 H 95 11/27/17 05:04 11/27/17 06:58 11/27/17 05:04 11/27/17 05:07 11/27/17 05:04 Oxygen Flow Rate (L/min) 2 Oxygen Delivery Method Room Air Weight: 208 lb 15.971 oz Body Mass Index (BMI) 32.1 Intake and Output for Last 24 Hours 11/25/17 11/26/17 11/27/17 23:59 23:59 23:59 Intake Total 780 / 780 717 / 717 620 / 620 Output Total 2175 / 2175 1200 / 1200 1550 / 1550 Balance -1395 / -1395 -483 / -483 -930 / -930 General: Awake, Alert, Oriented x 3 HEENT: PERRL, EOMI, Sclera Non Icteric Neck: Supple, Good ROM, No Lymph Node Enlargement Lungs: Clear to auscultation Cardiovascular: Regular Rhythm, Normal S1, Normal S2, No Rubs, No Gallops Murmur Murmur: Grade 2/6, Holosystolic Vascular: No Carotid Bruits, Normal Femoral Pulses, Normal Radial Pulses, Normal Dorsalis Pedal Pulse, Normal Posterior Tibial Pulses Abdomen: Bowel Sounds Present, Soft, Non Tender, No HSM, No Organomegaly Extremities: No Cyanosis, No Clubbing, No edema Neurological: No Focal Motor or Sensory Deficit Rhythm: EKG: ECHO: Stress Test: Cardiac Cath: PCI: CT Surgery: Holter monitor: EPS: PPM: CXR: Chest CT Scan: Medical Necessity - Tobacco Use Smoking Status: Former smoker Assessment/Plan 1. Ischemic cardiomyopathy: The patient presents with acute hypertensive emergency superimposed upon severe LV dysfunction, ischemic cardiomyopathy, and pulmonary hypertension. He is responded well to BiPAP therapy, IV Lasix, and IV nitroglycerin drip. My suspicion is the patient has a combination of worsening renal insufficiency despite his lower creatinine, some mild dietary noncompliance, and tolerance to antihypertensive medications. Patient had approximately 1.8 L removed with IV diuretic therapy, and he is off his BiPAP and nitroglycerin drip. His blood pressure is much better controlled. Would recommend discontinuation of his IV Lasix, and switching him to Lasix 80 mg p.o. twice daily as I believe he requires additional diuretic therapy as this is a second admission for CHF exacerbation. I advised the patient to weigh himself on a daily basis and to take an extra Lasix should he increase his weight by 3 pounds. In addition we have decreased his Coreg to 12.5 mg p.o. twice daily as he continues to have CHF exacerbations. We will titrate this up if his blood pressure is not well controlled. In addition we have increased his Imdur to 120 mg p.o. twice daily and continued his hydralazine 75 mg p.o. twice daily. His episodes appear to be precipitated by acute episodes of hypotension more so than fluid overload. Our goal should be to maintain a systolic blood pressure less than 120 to avoid recurrent flash pulmonary edema. He may require increasing his hydralazine to 100 mg 3 times daily. Recommend increasing his Lasix to 80 mg p.o. twice daily at home, and increasing his Coreg back to 25 mg p.o. twice daily. If the patient tolerates these medicines well, he may be discharged home tomorrow Wednesday. Patient requires a 1500 cc fluid restriction going forward. 2. Coronary artery disease: Patient has had no chest pain symptoms, and has known significant coronary artery disease. I would not recommend repeat catheterization at this time given his lack of significant ischemia by stress testing in May 2017 as well as his chronic renal insufficiency. In the meantime we will continue baby aspirin and Plavix going forward. In addition the patient is currently on Eliquis therapy and would need to be held for several days prior to any catheterization anyhow. 3. Hyperlipidemia: Continue statin based therapy. 4. Atrial fibrillation: Patient is currently in normal sinus rhythm by EKG. Continue amiodarone and Eliquis therapy. 5. Thank you very much for the opportunity to participate in the cardiac care of your patient. Patient may be discharged home tomorrow Wednesday if he tolerates the medication adjustment. Code Visit Inpatient E&M: 56369 Subs Hosp L2
[2017-11-27 11:20] LABS: Anion Gap 11 (5-15); BUN 35 mg/dL (7-18); BUN/Creat Ratio 15.2 RATIO (10-20); Calcium,Total 8.3 mg/dL (8.5-10.1); Chloride 97 mmol/L (98-107); EST Glomerular Filtration Rate 31 mL/min (>60); Est Glom Filt Rate - Afr Amer 37 mL/min (>60); Estimated Creatinine Clearance 30.98 ml/min; Glucose 301 mg/dL (74-106); Sodium Level 137 mmol/L (136-145)
[2017-11-27 12:10] LABS: Bedside Glucose 279 mg/dL (70-110)
[2017-11-27] MEDS: Carbamide Peroxide 15 ML Bottle 5 DRP OTIC (14:07)
--- NOTE | 2017-11-27 14:36 | PCM.PROGNOTE ---
<Hang Gamble - Last Filed: 11/27/17 14:36> Subjective: Pt resting comfortably in chair NAD. He had initially presented to the ER after attempting to go to cardiology appt and while walking into the hospital became SOB and wheezy, taken to the ER found to have CHF and started on bipap. He has been off bipap and off o2 and is now comfortable and without SOB. He has no CP, cough, dizziness, LH, palp, or edema. He states he has greatly improved. - Physical Exam General: Alert, Oriented x3, Cooperative HEENT: Atraumatic, PERRLA, EOMI, Normocephalic Neck: Supple, No JVD, Negative Carotid Bruits Lungs: Rales - faint BL posterior Cardiovascular: Regular rate, No murmurs Abdomen: Bowel Sounds Present, Soft, Non Tender Extremities: No edema, Capillary Refill Less than 3 Seconds Skin: No rashes, No breakdown Musculoskeletal: No Tenderness to Palpation of Joints or Extremities Neurological: Cranial nerves II-XII grossly intact Psych/Mental Status: Normal Affect, Appropriate, Alert and oriented to time, place, person, mood and affect Vital Signs Temp Pulse Resp BP Pulse Ox 98.0 F 58 L 18 122/73 H 97 11/27/17 14:15 11/27/17 14:15 11/27/17 14:15 11/27/17 14:15 11/27/17 14:15 Oxygen Flow Rate (L/min) [ 0 AMBULATING on Room Air] Oxygen Flow Rate (L/min) [At 0 REST on Room Air] Oxygen Flow Rate (L/min) 2 Oxygen Delivery Method Room Air Weight: 208 lb 15.971 oz Body Mass Index (BMI) 32.1 Intake and Output for Last 24 Hours 11/25/17 11/26/17 11/27/17 23:59 23:59 23:59 Intake Total 780 / 780 717 / 717 860 / 860 Output Total 2175 / 2175 1200 / 1200 2200 / 2200 Balance -1395 / -1395 -483 / -483 -1340 / -1340 Laboratory Tests Past 24 Hrs 11/27/17 10:50 Sodium 137 Potassium 4.0 Chloride 97 L Carbon Dioxide 29.0 Anion Gap 11 BUN 35 H Creatinine 2.30 H Estim Creat Clear Calc 30.98 Est GFR (MDRD) Af Amer 37 L Est GFR (MDRD) Non-Af 31 L BUN/Creatinine Ratio 15.2 Glucose 301 H Calcium 8.3 L POC Glucose 11/27/17 11/27/17 11/27/17 12:07 09:28 06:49 POC Glucose 279 H 251 H 153 H 11/26/17 11/26/17 21:56 16:14 POC Glucose 228 H 214 H Medical Necessity - Tobacco Use Smoking Status: Former smoker Assessment/Plan All Active Problems (Last Reviewed 05/24/17 @ 15:10 by Melania Mendoza) Shortness of breath (Acute) Esophagitis determined by endoscopy (Acute ~05/06/17) Cardiogenic shock (Resolved ~06/08/16) Hypertensive emergency (Resolved) Abdominal pain (Resolved) Acute pulmonary edema (Resolved) Acute respiratory failure (Resolved) Atrial fibrillation with RVR (Resolved) Chest pain (Resolved) Elevated troponin (Resolved) Metabolic acidosis (Resolved) 1. Acute systolic CHF with acute hypoxic respiratory failure - possibly 2/2 htn urgency. resolved. Fluid restrict. Continue lasix - changed to po. Off o2. on BB and ARB. 2. HTN urgency resolved. continue current therapy at dc. 3. Afib - amiodarone, coreg decreased, restart eliquis. 4. IDDM titrate current therapy 5. CAD - asa, plavix, statin no cath repeat for now. increased imdur, continue hydralazine. 6. CKDIII - creatinine trending up. Check in AM. DVT ppx: eliquis DC planning: Monitor overnight per cardiology ok to dc if stable in am. This patient was seen by Hang Gamble PA-C under the supervision of Doctor Gray. <Enzo Gray - Last Filed: 11/27/17 15:07> - Physical Exam General: Alert, Cooperative HEENT: Atraumatic, Normocephalic Lungs: Clear to auscultation, Normal air movement, No rhonchi, No wheeze Cardiovascular: Regular rate, Regular Rhythm, Normal S1, Normal S2 Skin: No rashes, No breakdown Psych/Mental Status: Normal Affect, Appropriate Vital Signs Temp Pulse Resp BP Pulse Ox 36.7 C 58 L 18 122/73 H 97 11/27/17 14:15 11/27/17 14:15 11/27/17 14:15 11/27/17 14:15 11/27/17 14:15 Oxygen Flow Rate (L/min) [ 0 AMBULATING on Room Air] Oxygen Flow Rate (L/min) [At 0 REST on Room Air] Oxygen Flow Rate (L/min) 2 Oxygen Delivery Method Room Air Weight: 94.8 kg Body Mass Index (BMI) 32.1 Intake and Output for Last 24 Hours 11/25/17 11/26/17 11/27/17 23:59 23:59 23:59 Intake Total 780 / 780 717 / 717 860 / 860 Output Total 2175 / 2175 1200 / 1200 2200 / 2200 Balance -1395 / -1395 -483 / -483 -1340 / -1340 Laboratory Tests Past 24 Hrs 11/27/17 10:50 Sodium 137 Potassium 4.0 Chloride 97 L Carbon Dioxide 29.0 Anion Gap 11 BUN 35 H Creatinine 2.30 H Estim Creat Clear Calc 30.98 Est GFR (MDRD) Af Amer 37 L Est GFR (MDRD) Non-Af 31 L BUN/Creatinine Ratio 15.2 Glucose 301 H Calcium 8.3 L POC Glucose 11/27/17 11/27/17 11/27/17 12:07 09:28 06:49 POC Glucose 279 H 251 H 153 H 11/26/17 11/26/17 21:56 16:14 POC Glucose 228 H 214 H Assessment/Plan Patient seen and examined independently. Data reviewed. I agree with the above note by the physician staff assistant. 1. Heart failure with reduced ejection fraction Overall improved and stable. Patient currently on room air doing well. EF 25% echocardiogram from 05/10/2017 [employer] material [employer] to oral Lasix today and will monitor his response Continue with carvedilol Continue with losartan Code Visit Inpatient E&M: 97066 Subs Hosp L2
[2017-11-27 17:00] LABS: Bedside Glucose 247 mg/dL (70-110)
[2017-11-27] MEDS: Furosemide 80 MG Tablet PO (17:45)
[2017-11-27] MEDS: Pravastatin 40 MG Tablet PO (21:23)
[2017-11-27] MEDS: APIXABAN 2.5 MG TABLET PO (21:23)
[2017-11-27] MEDS: Carvedilol 25 MG Tablet PO (21:24)
[2017-11-27 22:26] LABS: Bedside Glucose 249 mg/dL (70-110)
[2017-11-28] VITALS (8 sets, daily range): BP systolic 118–145; BP diastolic 72–74; PULSE 53–78; RESP 15–18; TEMP 36.2–36.8; O2SAT 94–98
[2017-11-28] MEDS: hydrALAZINE 25 MG Tablet 75 MG PO ×2 (05:56→15:37)
[2017-11-28 06:50] LABS: Bedside Glucose 113 mg/dL (70-110)
[2017-11-28 07:25] LABS: Anion Gap 11 (5-15); BUN 38 mg/dL (7-18); BUN/Creat Ratio 15.8 RATIO (10-20); Calcium,Total 8.3 mg/dL (8.5-10.1); Chloride 99 mmol/L (98-107); EST Glomerular Filtration Rate 29 mL/min (>60); Est Glom Filt Rate - Afr Amer 35 mL/min (>60); Estimated Creatinine Clearance 29.69 ml/min; Glucose 101 mg/dL (74-106); Potassium 3.7 mmol/L (3.5-5.1); Sodium Level 141 mmol/L (136-145)
[2017-11-28] MEDS: Aspirin 81 MG TAB.CHEW PO (08:27)
[2017-11-28] MEDS: Amiodarone 200 MG Tablet PO (09:22)
[2017-11-28] MEDS: Losartan Potassium 100 MG Tablet PO (09:23)
[2017-11-28] MEDS: Furosemide 80 MG Tablet PO ×2 (09:23→17:13)
[2017-11-28] MEDS: Pantoprazole Sodium 40 MG Tablet PO (09:23)
[2017-11-28] MEDS: Clopidogrel Bisulfate 75 MG Tablet PO (09:24)
[2017-11-28] MEDS: Carvedilol 25 MG Tablet PO (09:24)
[2017-11-28] MEDS: APIXABAN 2.5 MG TABLET PO (09:24)
[2017-11-28 09:56] LABS: Bedside Glucose 225 mg/dL (70-110)
--- NOTE | 2017-11-28 10:42 | PCM.PN.CARD ---
Subjectve: Patient reports he is feeling great! Has walked around the unit without any difficulty, shortness of breath or chest pain. Telemetry showed normal sinus rhythm with occasional sinus bradycardia. Tolerating higher dose of Coreg without any challenges. Objective: Vital Signs Temp Pulse Resp BP Pulse Ox 98.2 F 78 16 145/74 H 98 11/28/17 08:40 11/28/17 08:40 11/28/17 08:40 11/28/17 08:40 11/28/17 08:40 Oxygen Flow Rate (L/min) [ 0 AMBULATING on Room Air] Oxygen Flow Rate (L/min) [At 0 REST on Room Air] Oxygen Flow Rate (L/min) 2 Oxygen Delivery Method Room Air Weight: 208 lb 12.444 oz Body Mass Index (BMI) 32.1 Intake and Output for Last 24 Hours 11/26/17 11/27/17 11/28/17 23:59 23:59 23:59 Intake Total 717 / 717 980 / 980 960 / 960 Output Total 1200 / 1200 2825 / 2825 1425 / 1425 Balance -483 / -483 -1845 / -1845 -465 / -465 General: Awake, Alert, Oriented x 3 HEENT: PERRL, EOMI, Sclera Non Icteric Neck: Supple, Good ROM, No Lymph Node Enlargement Lungs: Clear to auscultation Cardiovascular: Regular Rhythm, Normal S1, Normal S2, No Rubs, No Gallops Murmur Murmur: Grade 2/6, Holosystolic Vascular: No Carotid Bruits, Normal Femoral Pulses, Normal Radial Pulses, Normal Dorsalis Pedal Pulse, Normal Posterior Tibial Pulses Abdomen: Bowel Sounds Present, Soft, Non Tender, No HSM, No Organomegaly Extremities: No Cyanosis, No Clubbing, No edema Neurological: No Focal Motor or Sensory Deficit 11/27/17 10:50: Sodium 137, Potassium 4.0, Chloride 97 L, Carbon Dioxide 29.0, Anion Gap 11, BUN 35 H, Creatinine 2.30 H, Est GFR (MDRD) Af Amer 37 L, Est GFR (MDRD) Non-Af 31 L, BUN/Creatinine Ratio 15.2, Glucose 301 H, Calcium 8.3 L 11/28/17 06:10: Sodium 141, Potassium 3.7, Chloride 99, Carbon Dioxide 31.0, Anion Gap 11, BUN 38 H, Creatinine 2.40 H, Est GFR (MDRD) Af Amer 35 L, Est GFR (MDRD) Non-Af 29 L, BUN/Creatinine Ratio 15.8, Glucose 101, Calcium 8.3 L Rhythm: EKG: ECHO: Stress Test: Cardiac Cath: PCI: CT Surgery: Holter monitor: EPS: PPM: CXR: Chest CT Scan: Medical Necessity - Tobacco Use Smoking Status: Former smoker Assessment/Plan 1. Ischemic cardiomyopathy: The patient presents with acute hypertensive emergency superimposed upon severe LV dysfunction, ischemic cardiomyopathy, and pulmonary hypertension. He is responded well to BiPAP therapy, IV Lasix, and IV nitroglycerin drip. My suspicion is the patient has a combination of worsening renal insufficiency despite his lower creatinine, some mild dietary noncompliance, and tolerance to antihypertensive medications. Patient had approximately 1.8 L removed with IV diuretic therapy, and he is off his BiPAP and nitroglycerin drip. His blood pressure is much better controlled. Would recommend discontinuation of his IV Lasix, and switching him to Lasix 80 mg p.o. twice daily as I believe he requires additional diuretic therapy as this is a second admission for CHF exacerbation. I advised the patient to weigh himself on a daily basis and to take an extra Lasix should he increase his weight by 3 pounds. In addition we have decreased his Coreg to 12.5 mg p.o. twice daily as he continues to have CHF exacerbations. We will titrate this up if his blood pressure is not well controlled. In addition we have increased his Imdur to 120 mg p.o. twice daily and continued his hydralazine 75 mg p.o. twice daily. His episodes appear to be precipitated by acute episodes of hypotension more so than fluid overload. Our goal should be to maintain a systolic blood pressure less than 120 to avoid recurrent flash pulmonary edema. He may require increasing his hydralazine to 100 mg 3 times daily. Recommend increasing his Lasix to 80 mg p.o. twice daily at home, and increasing his Coreg back to 25 mg p.o. twice daily. Patient tolerated ambulating without any difficulty, and his blood pressure did not increase whatsoever while he was ambulating. O2 sats did not appreciably desaturate either. Most he went down to 90%. Patient requires a 1500 cc fluid restriction going forward. 2. Coronary artery disease: Patient has had no chest pain symptoms, and has known significant coronary artery disease. I would not recommend repeat catheterization at this time given his lack of significant ischemia by stress testing in May 2017 as well as his chronic renal insufficiency. In the meantime we will continue baby aspirin and Plavix going forward. In addition the patient is currently on Eliquis therapy and would need to be held for several days prior to any catheterization anyhow. 3. Hyperlipidemia: Continue statin based therapy. 4. Atrial fibrillation: Patient is currently in normal sinus rhythm by EKG. Continue amiodarone and Eliquis therapy. 5. Thank you very much for the opportunity to participate in the cardiac care of your patient. Patient may be discharged home today. He will follow-up in our office this upcoming Wednesday with 1 of her [employer] SERVIC[employer]'s. Code Visit Inpatient E&M: 42136 Subs Hosp L2
--- NOTE | 2017-11-28 11:49 | PCM.DC ---
You will use the following diet at home:: Calorie/Carbohydrate Controlled (specify 1200, 1400, etc) - 1800 tangela / day, Cardiac - <2 grams sodium daily, Other - 1500 cc liquid day Your food should be the consistency of: Regular Your liquids should be the consistency of: Regular/Thin Discharge Activity: Return to Normal Activity Allergies/Adverse Reactions: Allergies atorvastatin calcium [From Lipitor] Allergy (Verified 11/25/17 08:58) Unknown diltiazem Allergy (Verified 11/25/17 08:58) Angioedema Medications to take at Discharge Aspirin [Aspirin, Baby] 81 mg PO DAILY@0800 12/28/14 Pravastatin [Pravachol] 40 mg PO QHS 12/28/14 Amiodarone HCl 200 mg PO DAILY 04/09/16 clopidogrel 75 mg tablet 75 mg PO DAILY #30 tab 06/23/17 Apixaban [Eliquis] 2.5 mg PO BID 11/25/17 Hydralazine HCl 75 mg PO TID 11/25/17 Losartan Potassium 100 mg PO QDAY 11/25/17 Pantoprazole Sodium [Protonix] 40 mg PO BID 11/25/17 Carvedilol [Coreg (Beta Thalia)] 12.5 mg PO BID #30 tab 11/28/17 Furosemide [Lasix] 80 mg PO BID@1000,1800 #60 tab 11/28/17 Isosorbide Mononitrate [Imdur] 120 mg PO BID #60 tab 11/28/17 Novolin 70-30 100 Unit/ml Vial 27 units SQ BID #0 11/28/17 The following prescriptions were given: Carvedilol [Coreg (Beta Thalia)] 12.5 mg PO BID #30 tab Furosemide [Lasix] 80 mg PO BID@1000,1800 #60 tab Isosorbide Mononitrate [Imdur] 120 mg PO BID #60 tab Primary Care Physician: Jennifer Spicer DO [Primary Care Provider] - Please follow up with your Primary Care Physician in: 1-2 weeks Test Results: Test results from this visit will be discussed in further detail at your follow-up appointment, if applicable. Please Follow Up With: Marco Antonio Butler MD When: 2 weeks Proposed Discharge Date: 11/28/17
[2017-11-28 12:05] LABS: Bedside Glucose 200 mg/dL (70-110)
--- NOTE | 2017-11-28 14:32 | PCM.DC.SUM ---
<Hang Gamble - Last Filed: 11/28/17 15:18> Discharge Date and Diagnosis Date of Admission: 11/25/17 Date of Discharge: 11/28/17 - Primary Discharge Diagnosis Acute systolic congestive heart failure exacerbation Ischemic CM pacer/aicd Acute hypoxic respiratory failure Hypertensive urgency Paroxysmal atrial fibrillation Type 2 IDDM CAD CKD stage III - Secondary Discharge Diagnosis Chronic Problems (Last Reviewed 05/24/17 @ 15:10 by Melania Mendoza) CAD (coronary artery disease) (Chronic) Presence of implantable cardioverter-defibrillator (ICD) (Chronic) Type 2 diabetes mellitus without complications (Chronic) DDD (degenerative disc disease) (Chronic) 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) History of coronary artery stent placement (Chronic ~06/08/16) SARA-RCA 06/15/2011, SARA-OM1 06/30/2011, SARA-LAD 08/20/2014, SARA-Prox- RCA 06/08/2016 Atherosclerosis of coronary artery of [place] heart without angina pectoris (Chronic) SARA-RCA 06/15/2011, SARA-OM1 06/30/2011, SARA-LAD 08/20/2014, SARA-Prox- RCA 06/08/2016 Paroxysmal atrial fibrillation (Chronic) Hypertension (Chronic) Hyperlipidemia (Chronic) Type II diabetes mellitus (Chronic) Hyperkalemia (Chronic) Chronic renal failure, stage 3 (moderate) (Chronic) STEMI (ST elevation myocardial infarction) (Chronic) Anemia of chronic renal failure, stage 3 (moderate) (Chronic) Obesity (BMI 30.0-34.9) (Chronic) Systolic CHF, acute on chronic (Chronic) Cardiomyopathy, ischemic (Chronic) Hospital Course and Treatment Imaging Results: RAD/Chest 1 View (Portable) IMPRESSION: Mild interstitial prominence is stable. Cardiomegaly is stable. No focal consolidation Consults: Butler - cardiology Operations: None Procedures: None Summary of Care Provided: Physical exam on day of discharge: General: Resting comfortably NAD Psych: A/Ox3 normal affect HEENT: PEARRLA AT NC Neck: Supple NT CV: RRR no m/t/r/g/h Resp: CTA Abd: [id number] Soft NT no guarding or rigidity Ext: DP2+= no edema Skin: W/D normal turgor Lymph/Heme: No active bleeding or adenopathy Neuro: CN2-12 intact Hospital course: The patient is a 67 year old M with a history of systolic congestive heart failure, ischemic cardiomyopathy, with a known ejection fraction of 25% per last echo in May of this year, history of CAD, pulmonary hypertension, CKD stage III, hyperlipidemia, paroxysmal atrial fibrillation who presented to the emergency room after he was on his way to his cardiology appointment into the office developed severe sudden onset of shortness of breath. Is brought to the emergency room and placed on BiPAP, chest x-ray revealed interstitial prominence, cardiomegaly, no focal consolidation, BNP was elevated, and blood pressure was significantly elevated. He was felt to be in flash pulmonary edema, possibly secondary to hypertensive urgency. He is admitted to PCU and cardiology was consulted. He is placed on IV Lasix. Patient had significant improvement and good response to Lasix therapy. He is able to be weaned off BiPAP. He is able to transition to nasal cannula and then ultimately off oxygen. He was transitioned to oral lasix. Coreg was decreased to 12.5bid. Amio and eliquis were maintained for Afib. Imdur was increased to 120 bid. He was ambulated without any desaturation. Insulin was slightly adjusted while here. He was advised to have 1500 cc fluid restriction and 2g sodium daily. He was discharged home in stable condition and will need to follow up with his PCP and cardiology. He will need to have a BMP in the next 3-5 days in order to assess the effectiveness of his Lasix therapy and his underlying renal disease. This patient was seen by Hang Gamble PA-C under the supervision of Doctor Isaac. [] Discharge Diet: Low fat/ Low Cholesterol, 1800 Calorie Control Diet, 2000 mg Sodium Diet, - - fluid restricted to 1500 cc /day Discharge Activity: Return to Normal Activity Home Medications: Medications to take at Discharge Aspirin [Aspirin, Baby] 81 mg PO DAILY@0800 12/28/14 Pravastatin [Pravachol] 40 mg PO QHS 12/28/14 Amiodarone HCl 200 mg PO DAILY 04/09/16 clopidogrel 75 mg tablet 75 mg PO DAILY #30 tab 06/23/17 Apixaban [Eliquis] 2.5 mg PO BID 11/25/17 Hydralazine HCl 75 mg PO TID 11/25/17 Losartan Potassium 100 mg PO QDAY 11/25/17 Pantoprazole Sodium [Protonix] 40 mg PO BID 11/25/17 Carvedilol [Coreg (Beta Thalia)] 12.5 mg PO BID #30 tab 11/28/17 Furosemide [Lasix] 80 mg PO BID@1000,1800 #60 tab 11/28/17 Isosorbide Mononitrate [Imdur] 120 mg PO BID #60 tab 11/28/17 Novolin 70-30 100 Unit/ml Vial 27 units SQ BID #0 11/28/17 Following Prescrptions Were Given to Patient: Carvedilol [Coreg (Beta Thalia)] 12.5 mg PO BID #30 tab Furosemide [Lasix] 80 mg PO BID@1000,1800 #60 tab Isosorbide Mononitrate [Imdur] 120 mg PO BID #60 tab Primary Care Physician: Jennifer Spicer DO [Primary Care Provider] - Please follow up with your Primary Care Physician in: 1-2 weeks Please Follow Up With: Marco Antonio Butler MD When: 2 weeks Disposition: Home Minutes spent on discharge:: 35 Patient Condition:: Stable Medical Necessity - Tobacco Use Smoking Status: Former smoker Meaningful Use Info Meaningful Use Diagnoses (Choose all that apply): CHF - CHF AN/ARB ordered at discharge?: Yes Documented LVEF (%): 25 <Enzo Gray - Last Filed: 11/28/17 15:37> Discharge Date and Diagnosis - Secondary Discharge Diagnosis Chronic Problems (Last Reviewed 05/24/17 @ 15:10 by Melania Mendoza) CAD (coronary artery disease) (Chronic) Presence of implantable cardioverter-defibrillator (ICD) (Chronic) Type 2 diabetes mellitus without complications (Chronic) DDD (degenerative disc disease) (Chronic) 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) History of coronary artery stent placement (Chronic ~06/08/16) SARA-RCA 06/15/2011, SARA-OM1 06/30/2011, SARA-LAD 08/20/2014, SARA-Prox- RCA 06/08/2016 Atherosclerosis of coronary artery of [place] heart without angina pectoris (Chronic) SARA-RCA 06/15/2011, SARA-OM1 06/30/2011, SARA-LAD 08/20/2014, SARA-Prox- RCA 06/08/2016 Paroxysmal atrial fibrillation (Chronic) Hypertension (Chronic) Hyperlipidemia (Chronic) Type II diabetes mellitus (Chronic) Hyperkalemia (Chronic) Chronic renal failure, stage 3 (moderate) (Chronic) STEMI (ST elevation myocardial infarction) (Chronic) Anemia of chronic renal failure, stage 3 (moderate) (Chronic) Obesity (BMI 30.0-34.9) (Chronic) Systolic CHF, acute on chronic (Chronic) Cardiomyopathy, ischemic (Chronic) Hospital Course and Treatment Summary of Care Provided: Patient seen and examined independently. Data reviewed. I agree with the above note by the physician assistant production manager. The patient is a 67 year old M heart failure. Diuresed well with IV Lasix. Change back over to oral Lasix as well as carvedilol and losartan. [] Discharge Diet: Low fat/ Low Cholesterol, 1800 Calorie Control Diet, 2000 mg Sodium Diet, - Discharge Activity: Return to Normal Activity Disposition: Home Patient Condition:: Stable Meaningful Use Info Meaningful Use Diagnoses (Choose all that apply): CHF - CHF AN/ARB ordered at discharge?: Yes Documented LVEF (%): 25 Code Visit Inpatient E&M: 59599 Disch Hosp
--- NOTE | 2017-11-28 14:37 | DS.PCM_ITS ---
<Hang Gamble - Last Filed: 11/28/17 15:18> Discharge Date and Diagnosis Date of Admission: 11/25/17 Date of Discharge: 11/28/17 - Primary Discharge Diagnosis Acute systolic congestive heart failure exacerbation Ischemic CM pacer/aicd Acute hypoxic respiratory failure Hypertensive urgency Paroxysmal atrial fibrillation Type 2 IDDM CAD CKD stage III - Secondary Discharge Diagnosis Chronic Problems (Last Reviewed 05/24/17 @ 15:10 by Melania Mendoza) CAD (coronary artery disease) (Chronic) Presence of implantable cardioverter-defibrillator (ICD) (Chronic) Type 2 diabetes mellitus without complications (Chronic) DDD (degenerative disc disease) (Chronic) 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) History of coronary artery stent placement (Chronic ~06/08/16) SARA-RCA 06/15/2011, SARA-OM1 06/30/2011, SARA-LAD 08/20/2014, SARA-Prox- RCA 2016 Atherosclerosis of coronary artery of [place] heart without angina pectoris ( Chronic) SARA-RCA 06/15/2011, SARA-OM1 06/30/2011, SARA-LAD 08/20/2014, SARA-Prox- RCA 2016 Paroxysmal atrial fibrillation (Chronic) Hypertension (Chronic) Hyperlipidemia (Chronic) Type II diabetes mellitus (Chronic) Hyperkalemia (Chronic) Chronic renal failure, stage 3 (moderate) (Chronic) STEMI (ST elevation myocardial infarction) (Chronic) Anemia of chronic renal failure, stage 3 (moderate) (Chronic) Obesity (BMI 30.0-34.9) (Chronic) Systolic CHF, acute on chronic (Chronic) Cardiomyopathy, ischemic (Chronic) Hospital Course and Treatment Imaging Results: RAD/Chest 1 View (Portable) IMPRESSION: Mild interstitial prominence is stable. Cardiomegaly is stable. No focal consolidation Consults: Butler - cardiology Operations: None Procedures: None Summary of Care Provided: Physical exam on day of discharge: General: Resting comfortably NAD Psych: A/Ox3 normal affect HEENT: PEARRLA AT NC Neck: Supple NT CV: RRR no m/t/r/g/h Resp: CTA Abd: [id number] Soft NT no guarding or rigidity Ext: DP2+= no edema Skin: W/D normal turgor Lymph/Heme: No active bleeding or adenopathy Neuro: CN2-12 intact Hospital course: The patient is a 67 year old M with a history of systolic congestive heart failure, ischemic cardiomyopathy, with a known ejection fraction of 25% per last echo in May of this year, history of CAD, pulmonary hypertension, CKD stage III, hyperlipidemia, paroxysmal atrial fibrillation who presented to the emergency room after he was on his way to his cardiology appointment into the office developed severe sudden onset of shortness of breath. Is brought to the emergency room and placed on BiPAP, chest x-ray revealed interstitial prominence , cardiomegaly, no focal consolidation, BNP was elevated, and blood pressure was significantly elevated. He was felt to be in flash pulmonary edema, possibly secondary to hypertensive urgency. He is admitted to PCU and cardiology was consulted. He is placed on IV Lasix. Patient had significant improvement and good response to Lasix therapy. He is able to be weaned off BiPAP. He is able to transition to nasal cannula and then ultimately off oxygen. He was transitioned to oral lasix. Coreg was decreased to 12.5bid. Amio and eliquis were maintained for Afib. Imdur was increased to 120 bid. He was ambulated without any desaturation. Insulin was slightly adjusted while here. He was advised to have 1500 cc fluid restriction and 2g sodium daily. He was discharged home in stable condition and will need to follow up with his PCP and cardiology. He will need to have a BMP in the next 3-5 days in order to assess the effectiveness of his Lasix therapy and his underlying renal disease. This patient was seen by Hang Gamble PA-C under the supervision of Doctor Isaac. [] Discharge Diet: Low fat/ Low Cholesterol, 1800 Calorie Control Diet, 2000 mg Sodium Diet, - - fluid restricted to 1500 cc /day Discharge Activity: Return to Normal Activity Home Medications: Medications to take at Discharge Aspirin [Aspirin, Baby] 81 mg PO DAILY@0800 12/28/14 Pravastatin [Pravachol] 40 mg PO QHS 12/28/14 Amiodarone HCl 200 mg PO DAILY 04/09/16 clopidogrel 75 mg tablet 75 mg PO DAILY #30 tab 06/23/17 Apixaban [Eliquis] 2.5 mg PO BID 11/25/17 Hydralazine HCl 75 mg PO TID 11/25/17 Losartan Potassium 100 mg PO QDAY 11/25/17 Pantoprazole Sodium [Protonix] 40 mg PO BID 11/25/17 Carvedilol [Coreg (Beta Thalia)] 12.5 mg PO BID #30 tab 11/28/17 Furosemide [Lasix] 80 mg PO BID@1000,1800 #60 tab 11/28/17 Isosorbide Mononitrate [Imdur] 120 mg PO BID #60 tab 11/28/17 Novolin 70-30 100 Unit/ml Vial 27 units SQ BID #0 11/28/17 Following Prescrptions Were Given to Patient: Carvedilol [Coreg (Beta Thalia)] 12.5 mg PO BID #30 tab Furosemide [Lasix] 80 mg PO BID@1000,1800 #60 tab Isosorbide Mononitrate [Imdur] 120 mg PO BID #60 tab Primary Care Physician: Jennifer Spicer DO [Primary Care Provider] - Please follow up with your Primary Care Physician in: 1-2 weeks Please Follow Up With: Marco Antonio Butler MD When: 2 weeks Disposition: Home Minutes spent on discharge:: 35 Patient Condition:: Stable Medical Necessity - Tobacco Use Smoking Status: Former smoker Meaningful Use Info Meaningful Use Diagnoses (Choose all that apply): CHF - CHF AN/ARB ordered at discharge?: Yes Documented LVEF (%): 25 <Enzo Gray - Last Filed: 11/28/17 15:37> Discharge Date and Diagnosis - Secondary Discharge Diagnosis Chronic Problems (Last Reviewed 05/24/17 @ 15:10 by Melania Mendoza) CAD (coronary artery disease) (Chronic) Presence of implantable cardioverter-defibrillator (ICD) (Chronic) Type 2 diabetes mellitus without complications (Chronic) DDD (degenerative disc disease) (Chronic) 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) History of coronary artery stent placement (Chronic ~06/08/16) SARA-RCA 06/15/2011, SARA-OM1 06/30/2011, SARA-LAD 08/20/2014, SARA-Prox- RCA 2016 Atherosclerosis of coronary artery of [place] heart without angina pectoris ( Chronic) SARA-RCA 06/15/2011, SARA-OM1 06/30/2011, SARA-LAD 08/20/2014, SARA-Prox- RCA 2016 Paroxysmal atrial fibrillation (Chronic) Hypertension (Chronic) Hyperlipidemia (Chronic) Type II diabetes mellitus (Chronic) Hyperkalemia (Chronic) Chronic renal failure, stage 3 (moderate) (Chronic) STEMI (ST elevation myocardial infarction) (Chronic) Anemia of chronic renal failure, stage 3 (moderate) (Chronic) Obesity (BMI 30.0-34.9) (Chronic) Systolic CHF, acute on chronic (Chronic) Cardiomyopathy, ischemic (Chronic) Hospital Course and Treatment Summary of Care Provided: Patient seen and examined independently. Data reviewed. I agree with the above note by the physician acute care nursing assistant. The patient is a 67 year old M heart failure. Diuresed well with IV Lasix. Change back over to oral Lasix as well as carvedilol and losartan. [] Discharge Diet: Low fat/ Low Cholesterol, 1800 Calorie Control Diet, 2000 mg Sodium Diet, - Discharge Activity: Return to Normal Activity Disposition: Home Patient Condition:: Stable Meaningful Use Info Meaningful Use Diagnoses (Choose all that apply): CHF - CHF AN/ARB ordered at discharge?: Yes Documented LVEF (%): 25 Code Visit Inpatient E&M: 36212 Disch Hosp
--- NOTE | 2017-11-28 15:33 | PCM.HOSP.N ---
Hospitalist Note This is an addendum to the discharge summary performed by Hang Gamble. I am unable to addend that note directly at this time therefore I am doing this additional addendum. Patient seen and examined apparently. I agree with the discharge summary as dictated by accusing her back. Physical exam: Patient up in chair, no respiratory distress, no conversational dyspnea. Heart is regular in rhythm plus S1-S2 with a murmurs gallops or rubs. Lungs are clear to auscultation bilaterally. Patient admitted with heart failure. Was on IV Lasix and diuresed well. Transition over to oral Lasix on and has done well. Patient will continue with his carvedilol and losartan. Follow-up with cardiology as outpatient. Code Visit Inpatient E&M: 68185 Disch Hosp
--- NOTE | 2017-11-30 11:55 | CASEMGMT ---
RN LISET DC F/U Phone Call. DC DATE: 11/28/17 DC Disposition: Home LACE 3 Intro role of CM to patient via phone. Pt states he is doing well. Has made f/u doctor appointments. No questions re: prescriptions or dc instructions. No suggestions re: improving care. Pt states staff was wonderful. DEVYN HUTCHINS thanked pt for utilizing [facility]. Nii SUTTONN RN [facility]
== END 2017-11-28 18:06 | disposition home or self-care (01) | DRG 291 ==
LOC: ED 10:47 → ICU 11:02 → PCU 11-26 12:02
PROVIDERS: Admitting Provider Family Medicine; Emergency Provider Emergency Medicine; Family Provider Family Medicine; PCP Family Medicine
DX: I13.0 Hypertensive heart and chronic kidney disease with heart failure and stage 1 through stage 4 chronic kidney disease, or unspecified chronic kidney disease (principal); I50.23 Acute on chronic systolic (congestive) heart failure; J96.01 Acute respiratory failure with hypoxia; I16.1 Hypertensive emergency; I25.5 Ischemic cardiomyopathy; E11.22 Type 2 diabetes mellitus with diabetic chronic kidney disease; N18.3 Chronic kidney disease, stage 3 (moderate); I25.10 Atherosclerotic heart disease of native coronary artery without angina pectoris; I48.0 Paroxysmal atrial fibrillation; Z95.810 Presence of automatic (implantable) cardiac defibrillator; I27.21 Secondary pulmonary arterial hypertension; Z95.5 Presence of coronary angioplasty implant and graft; E78.5 Hyperlipidemia, unspecified; D63.1 Anemia in chronic kidney disease; E66.9 Obesity, unspecified; Z68.32 Body mass index [BMI] 32.0-32.9, adult; Z87.891 Personal history of nicotine dependence; I25.2 Old myocardial infarction; Z79.4 Long term (current) use of insulin; Z79.01 Long term (current) use of 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s
CPT/HCPCS: 36415; 51702; 71045; 80048; 82962; 84484; 85025; 85027; 87641; 93005; 94002; 97110; 97116; 97162; 97166; 97530; 97802; 99284; A4216; J1940

== ENCOUNTER → 2017-12-03 13:22 | Outpatient (CLI) | payer MEDICARE, SELFPAY ==
[2016-06-12 14:02] VITALS: BMI 29.7
[2017-12-03 15:21] LABS: Anion Gap 10 (5-15); BUN 37 mg/dL (7-18); BUN/Creat Ratio 15.1 RATIO (10-20); Calcium,Total 8.6 mg/dL (8.5-10.1); Chloride 101 mmol/L (98-107); Creatinine, Serum 2.45 mg/dL (0.70-1.30); EST Glomerular Filtration Rate 28 mL/min (>60); Est Glom Filt Rate - Afr Amer 34 mL/min (>60); Glucose 117 mg/dL (74-106); Potassium 3.8 mmol/L (3.5-5.1); Sodium Level 140 mmol/L (136-145)
== END ==
LOC: LAB 13:24
PROVIDERS: Family Provider Family Medicine; PCP Family Medicine; Visit Provider Physician Assistant
DX: I50.9 Heart failure, unspecified (principal)
CPT/HCPCS: 36415; 80048

== ENCOUNTER 2018-01-03 08:47 | Inpatient (IN) | payer MEDICARE, SELFPAY ==
[2016-06-12 14:02] VITALS: BMI 29.7
[2018-01-03] VITALS (26 sets, daily range): BP systolic 84–194; BP diastolic 59–138; PULSE 58–101; RESP 12–36; TEMP 35.8–36.7; O2SAT 94–99; BMI 32.5; BMI 32.1; BMI 32.2
--- NOTE | 2018-01-03 08:51 | RAD_ITS ---
STUDY: X-RAY CHEST REASON FOR EXAM: Male, 67 years old. Shortness of breath. Diaphoresis. TECHNIQUE: Single AP portable view of the chest. COMPARISON: Comparison is made with prior study dated November 25, 2017. FINDINGS: EKG electrodes are seen. There is evidence of basilar congestion and CHF. There is no demonstrated pleural abnormality. There is moderate cardiac enlargement. A left-sided unipolar pacemaker is seen. Normal mediastinum and loco. Normal visualized pulmonary arteries. There is atherosclerotic tortuosity of the aortic arch and descending thoracic aorta. Normal visualized thoracic spine. Normal visualized ribs, clavicles, and shoulders. There is no demonstrated abnormality of the visualized soft tissue structures of the upper abdomen. RAD/Chest 1 View (Portable) IMPRESSION: Cardiomegaly and CHF. Electronically Signed: Domingo Noyola MD at 9:11 EDT Tel [phone], Service support ,
--- NOTE | 2018-01-03 08:51 | EKG12_ITS ---
Test Reason : SOB Blood Pressure : / mmHG Vent. Rate : 095 BPM Atrial Rate : 095 BPM P-R Int : 232 ms QRS Dur : 154 ms QT Int : 384 ms P-R-T Axes : 034 -48 099 degrees QTc Int : 482 ms Sinus rhythm with 1st degree A-V block Left bundle branch block Abnormal ECG Confirmed by BELKIS METZ, JUANJOSE ([id number]), editor book CANELO DIETRICH ([id number]) on 01/04/2018 2:42:42 PM Referred By: KEIRY Confirmed By:JUANJOSE TAMAYO MD
[2018-01-03] MEDS: Furosemide 40 MG/4 ML Vial IV ×2 (09:00→17:28)
[2018-01-03] MEDS: Nitroglycerin Oint 1 INCH PACKET TRANSDERM. (09:01)
--- NOTE | 2018-01-03 09:01 | ED.VISSUMM ---
- ER Visit Summary Date of Service: 01/03/18 Chief Complaint: Shortness of breath History of Present Illness: The patient is a 67 M who presents with shortness of breath. He states it started suddenly this morning. He felt very short of breath worse with moving. He denies a cough, chest pain or fevers. The patient has a history of CHF. He had an admission back in November for similar symptoms. He states it started suddenly at that time as well. He has a history of intubations in the past for his shortness of breath and pulmonary edema. He has been medication compliant. EMS placed him on CPAP which he states made him mildly improved. He also had aerosol treatments by EMS. Physical Examination: Vital signs reviewed. Patient in moderate distress secondary to his respiratory status. HEENT exam unremarkable. Heart is regular rate and rhythm without murmurs. Lungs have rhonchi and wheezing bilaterally. He is using accessory muscles. Extremities reveal no significant edema. His abdomen is soft and nontender. His neurologic exam is at baseline. Test Results: EKG was paced with a left bundle branch block. Nonspecific ST and T wave changes noted. Chest x-ray reveals CHF. White blood cell count 15.7. Creatinine 2.64 which is slightly above baseline. Troponin 0 0.046. BNP is 232. Lactate 2.8. ABG on BiPAP reveals 7.226/53/175/22 Emergency Department Course and Treatment: Patient was immediately placed on BiPAP upon arrival. I then started him on nitroglycerin paste and gave him IV Lasix. He was still having tachypnea so I then him on nitroglycerin drip. After this had been running he started to feel much better. I also gave him Vasotec IV. Patient was more comfortable on BiPAP. He did not want to be intubated regardless of what happened. This will be documented. I feel this is likely flash pulmonary edema. He has had this in the past. Patient will be admitted now that he is comfortable on the BiPAP. Treatment Plan: [] Disposition: Admit Impression: CHF exacerbation, acute respiratory failure This note was generated with [employer] dictation software. It may contain incorrect words, spelling, and punctuation that were not noted in review of the chart prior to signing ED Disposition - Plan for ED Patient: Chief Complaint: Shortness of Breath Referrals: Jennifer Spicer DO [Primary Care Provider] -
[2018-01-03 09:20] LABS: Base Excess -5 mmol/L (-2 to +2); Bicarbonate 22.4 mmol/L (22-26); Blood Gas Specimen Type ART; EPAP 10; FI02 100; IPAP 18; PO2 175 mmHG (75-100); SITE R Brachial; SO2 99 % (95-99); Time Given 910; Total Carbon Dioxide 24 mmol/L; pCO2 53.9 mmHg (35-45); pH 7.23 (7.35-7.45)
[2018-01-03 09:31] LABS: Absolute Lymphocyte Count 1.88 X10^3/ul (0.83-4.51); Absolute Neutrophil Count 11.8 X10^3/uL (2.0-7.7); Basophil# 0.09 X10^3/uL; Basophil% 0.6 % (0-1); Eosinophil# 0.34 X10^3/uL; Eosinophils% 2.2 % (0-5); Hematocrit 48.1 % (40-54); Hemoglobin 15.5 g/dl (13.0-16.5); Lymphocyte # 1.88 X10^3/ul (4.0); Mean Corp Hgb Conc 32.2 g/gl (32-36); Mean Corpuscular Hgb 29.2 pg (27.0-32.0); Mean Corpuscular Volume 90.8 fL (80-94); Mean Platelet Vol. 9.7 fl (6.2-12.0); Monocyte# 1.37 X10^3/uL; Monocyte% 8.7 % (0-10); Neutrophil % 75.2 % (47-70); Platelet Count 263 K/mm3 (150-450); RBC Distribution Width CV 14.2 % (11.6-14.6); RBC Distribution Width SD 46.6 fl (35.1-43.9); White Blood Count 15.7 K/mm3 (4.4-11.0)
[2018-01-03 09:33] LABS: POSITIVE COUNT NO; POSITIVE DIFFERENTIAL NO; POSITIVE MORPHOLOGY NO
[2018-01-03 09:41] LABS: Anion Gap 12 (5-15); BUN 32 mg/dL (7-18); BUN/Creat Ratio 12.1 RATIO (10-20); Calcium,Total 8.2 mg/dL (8.5-10.1); Chloride 99 mmol/L (98-107); Creatinine, Serum 2.64 mg/dL (0.70-1.30); EST Glomerular Filtration Rate 26 mL/min (>60); Est Glom Filt Rate - Afr Amer 31 mL/min (>60); Glucose 280 mg/dL (74-106); Potassium 4.4 mmol/L (3.5-5.1); Sodium Level 137 mmol/L (136-145)
[2018-01-03] MEDS: Enalaprilat 1.25 MG/ML Vial IV (09:46)
[2018-01-03 09:56] LABS: Lactic Acid 2.8 mmol/L (0.4-2.0)
[2018-01-03 09:56] LABS: BNP,B-Type NATRIURETIC PEPTIDE 232.9 pg/mL (0-100)
--- NOTE | 2018-01-03 10:05 | ED.RN ---
LACTIC LEVEL 2.8. NOTIFIED
--- NOTE | 2018-01-03 10:36 | NURSING ---
DR PARKER FOR DR RICCI
--- NOTE | 2018-01-03 10:40 | HP.PCM_ITS ---
Problem List (1) CAD (coronary artery disease) Status: Chronic Qualifiers: Coronary Disease-Associated Artery/Lesion type: [place] artery Hoh vs. transplanted heart: [place] heart Associated angina: without angina Qualified Code(s): I25.10 - Atherosclerotic heart disease of [place] coronary artery without angina pectoris (2) Type 2 diabetes mellitus without complications Status: Chronic Qualifiers: Diabetes mellitus [facility] insulin use: with [facility] use Qualified Code(s): E11.9 - Type 2 diabetes mellitus without complications; Z79.4 - [facility] (current) use of insulin (3) DDD (degenerative disc disease) Status: Chronic (4) Left atrial thrombus Status: Chronic (5) Paroxysmal atrial fibrillation Status: Chronic (6) Hypertension Status: Chronic Qualifiers: Hypertension type: essential hypertension Qualified Code(s): I10 - Essential (primary) hypertension (7) Hyperlipidemia Status: Chronic Qualifiers: Hyperlipidemia type: unspecified Qualified Code(s): E78.5 - Hyperlipidemia, unspecified (8) Chronic renal failure, stage 3 (moderate) Status: Chronic (9) Cardiomyopathy, ischemic Status: Chronic History of Present Illness Date of Admission: 01/03/18 Chief Complaint: Shortness of breath, wheezing - 1 day The patient is a 67 year old M past medical history of chronic systolic CHF, ischemic cardiomyopathy, EF 25%, history of CAD status post stent, pulmonary hypertension, hypertension, paroxysmal atrial fibrillation, CKD who came to the emergency department with 1 day history of wheezing and shortness of breath. Patient states that he has been casted of health but noticed that he was gaining weight in the last few days as well as shortness of breath on exertion. He woke up this morning and felt very wheezy and short of breath. He denied any chest pain or dizziness or diaphoresis or palpitations. Blood pressure on arrival to the ED showed 194/136, respiratory rate was 36, heart rate of 98, he was saturating 99% on BiPAP. His WBC count is 15.7, hemoglobin is 15.5, platelet count is 263, rhythm is 137, potassium 4.4, chloride 99, bicarbonate 26, BUN 32, lactate 2.64, lactic acid 2.8, magnesium 2.1, BNP was 232.9. Chest x-ray showed cardiomegaly with CHF presentation. Past Medical History Past Medical History (Chronic Problems): Chronic Problems (Last Reviewed 05/24/17 @ 15:10 by Melania Mendoza) CAD (coronary artery disease) (Chronic) Presence of implantable cardioverter-defibrillator (ICD) (Chronic) Type 2 diabetes mellitus without complications (Chronic) DDD (degenerative disc disease) (Chronic) 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) History of coronary artery stent placement (Chronic ~06/08/16) SARA-RCA 06/15/2011, SARA-OM1 06/30/2011, SARA-LAD 08/20/2014, SARA-Prox- RCA 06/08/2016 Atherosclerosis of coronary artery of [place] heart without angina pectoris (Chronic) SARA-RCA 06/15/2011, SARA-OM1 06/30/2011, SARA-LAD 08/20/2014, SARA-Prox- RCA 06/08/2016 Paroxysmal atrial fibrillation (Chronic) Hypertension (Chronic) Hyperlipidemia (Chronic) Type II diabetes mellitus (Chronic) Hyperkalemia (Chronic) Chronic renal failure, stage 3 (moderate) (Chronic) STEMI (ST elevation myocardial infarction) (Chronic) Anemia of chronic renal failure, stage 3 (moderate) (Chronic) Obesity (BMI 30.0-34.9) (Chronic) Systolic CHF, acute on chronic (Chronic) Cardiomyopathy, ischemic (Chronic) Medical History: Medical History (Last Reviewed 05/24/17 @ 15:10 by Melania Mendoza) Esophagitis determined by endoscopy (Acute) Onset Date: ~05/06/17 K20.9 Type 2 diabetes mellitus without complications (Chronic) E11.9 DDD (degenerative disc disease) (Chronic) 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) I27.21 Atherosclerosis of coronary artery of [place] heart without angina pectoris (Chronic) I25.10 SARA-RCA 06/15/2011, SARA-OM1 06/30/2011, SARA-LAD 08/20/2014, SARA-Prox- RCA 06/08/2016 Paroxysmal atrial fibrillation (Chronic) I48.0 Hypertension (Chronic) I10 Hyperlipidemia (Chronic) E78.5 Type II diabetes mellitus (Chronic) E11.9 Hyperkalemia (Chronic) E87.5 Chronic renal failure, stage 3 (moderate) (Chronic) N18.3 STEMI (ST elevation myocardial infarction) (Chronic) Cardiogenic shock (Resolved) Onset Date: ~06/08/16 R57.0 Hypertensive emergency (Resolved) I16.1 Anemia of chronic renal failure, stage 3 (moderate) (Chronic) N18.3, D63.1 Obesity (BMI 30.0-34.9) (Chronic) E66.9 Systolic CHF, acute on chronic (Chronic) I50.23 Cardiomyopathy, ischemic (Chronic) I25.5 History of cardioversion Onset Date: ~04/10/16 Z98.890 01/14/15 (unsuccessful), 04/10/2016 Old myocardial infarction I25.2 inferior lateral and Anterior Apical Allergies atorvastatin calcium [From Lipitor] Allergy (Verified 01/03/18 09:13) Unknown diltiazem Allergy (Verified 01/03/18 09:13) Angioedema Home Medications: Ambulatory Orders Medication Instructions Recorded Aspirin [Aspirin, Baby] 81 mg PO DAILY@0800 12/28/14 Pravastatin [Pravachol] 40 mg PO QHS 12/28/14 Amiodarone HCl 200 mg PO DAILY 04/09/16 clopidogrel 75 mg tablet 75 mg PO DAILY #30 tab 06/23/17 Apixaban [Eliquis] 2.5 mg PO BID 11/25/17 Hydralazine HCl 75 mg PO TID 11/25/17 Losartan Potassium 100 mg PO QDAY 11/25/17 Pantoprazole Sodium [Protonix] 40 mg PO BID 11/25/17 Carvedilol [Coreg (Beta Thalia)] 12.5 mg PO BID #30 tab 11/28/17 Furosemide [Lasix] 80 mg PO BID@1000,1800 #60 tab 11/28/17 Isosorbide Mononitrate [Imdur] 120 mg PO BID #60 tab 11/28/17 Novolin 70-30 100 Unit/ml Vial 27 units SQ BID #0 11/28/17 Surgical History: Surgical History (Last Updated 07/08/17 @ 09:33 by Huong Parikh) Presence of implantable cardioverter-defibrillator (ICD) (Chronic) Z95.810 History of coronary artery stent placement (Chronic) Onset Date: ~06/08/16 Z95.5 SARA-RCA 06/15/2011, SARA-OM1 06/30/2011, SARA-LAD 08/20/2014, SARA-Prox- RCA 06/08/2016 Surgical History: - - s/p stents, AICD Psychiatric History: No pertinent psych hx, - - unknow - pt is intubated and unable to give hx. No family present Lives: Spouse/ Significant Other Smoking Status: Former smoker Tobacco Use: Non-smoker Alcohol: Occasional - beer Drugs: None - *Family History Maternal Family History: Family History (Last Reviewed 05/24/17 @ 15:10 by Melania Mendoza) Brother Sudden cardiac History Items: No pertinent history Paternal Family History: Family History (Last Reviewed 05/24/17 @ 15:10 by Melania Mendoza) Brother Sudden cardiac History Items: No pertinent history Sibling Family History: Family History (Last Reviewed 05/24/17 @ 15:10 by Melania Mendoza) Brother Sudden cardiac History Items: Heart Disease - sudden Review of Systems Constitutional: Denies: Anorexia, Chills, Fever, Night Sweats, Malaise, Weakness, Weight Change Eyes: Denies: Blurred vision, Cataracts, Conjunctivae Inflammation, Double vision, Pain, Redness HEENT: Denies: Difficulty Hearing, Difficulty Swallowing, Head Aches, Hearing Changes, Sinus Congestion, Sinus Drainage Cardiovascular: Denies: Chest Pain, Claudication, Orthopnea, Palpitations, Paroxysmal Noc. Dyspnea Respiratory: Reports: Shortness of Breath, Shortness of breath at rest, Shortness of breath upon exertion. Denies: Cough, Sputum production Gastrointestinal: Denies: Abdominal Pain, Constipation, Hematemesis, Hematochezia, Nausea, Vomiting Genitourinary: Denies: Dysuria, Frequency, Incontinence Musculoskeletal: Denies: Joint Pain, Joint stiffness, Joint swelling, Joint Tenderness Skin: Denies: Rash, Wounds Neurological: Denies: Numbness, Tingling, Focal weakness Psychiatric: Denies: Anxiety, Depression, Homicidal Ideations, Suicidal Ideations Hematologic/ Lymphatic: Denies: Easy Bruising, Easy Bleeding VTE Information - Inpt Only VTE Present on Admission: No VTE Pharm Prophylaxis ordered?: Yes - Physical Exam General: Alert, Oriented x3, Cooperative, - - in mild respiratory distress, obese HEENT: Atraumatic, PERRLA, EOMI, Normocephalic Oral: Moist Mucosa Neck: Supple Lungs: Clear to auscultation, Normal air movement, Diminished - at the lung bases Cardiovascular: Regular rate, Regular Rhythm, Normal S1, Normal S2, No murmurs Abdomen: Bowel Sounds Present, Soft, Non Tender, Non-Distended, No Hepato- splenomegaly Extremities: No edema Skin: No rashes, No breakdown Musculoskeletal: No Tenderness to Palpation of Joints or Extremities Lymphatic: No Cervical, Supraclavicular, or Inguinal Adenopathy Neurological: Cranial nerves II-XII grossly intact, Neuro grossly intact Psych/Mental Status: Normal Affect, Appropriate Vital Signs Pulse Resp BP Pulse Ox 77 28 H 95/70 95 01/03/18 10:25 01/03/18 10:25 01/03/18 10:25 01/03/18 10:25 Oxygen Flow Rate (L/min) 15 Oxygen Delivery Method Bi-pap Weight: 99.9 kg Body Mass Index (BMI) 32.5 Finger Stick Blood Glucose 213 Laboratory Tests Past 24 Hrs 01/03/18 01/03/18 01/03/18 09:05 09:05 09:05 WBC 15.7 H RBC 5.30 Hgb 15.5 Hct 48.1 MCV 90.8 MCH 29.2 MCHC 32.2 RDW 14.2 RDW Differential 46.6 H Plt Count 263 MPV 9.7 Immature Gran % (Auto) 1.300 H Neut % (Auto) 75.2 H Lymph % (Auto) 12.0 L Todd % (Auto) 8.7 Eos % (Auto) 2.2 Baso % (Auto) 0.6 Absolute Neuts (auto) 11.8 H Absolute Lymphs (auto) 1.88 Total Counted Not Reportable Specimen Type Sample Site pH Bicarbonate Actual POC Total CO2 Base Excess O2 Saturation O2 % ABG pCO2 ABG pO2 Humberto Test O2 Delivery Device EPAP IPAP Blood Gas Notified Whom Blood Gas Notified Time Sodium 137 Potassium 4.4 Chloride 99 Carbon Dioxide 26.0 Anion Gap 12 BUN 32 H Creatinine 2.64 H Estim Creat Clear Calc 27.90 Est GFR (MDRD) Af Amer 31 L Est GFR (MDRD) Non-Af 26 L BUN/Creatinine Ratio 12.1 Glucose 280 H Lactic Acid Calcium 8.2 L Troponin I 0.046 H B-Natriuretic Peptide 232.9 H 01/03/18 01/03/18 09:16 09:25 WBC RBC Hgb Hct MCV MCH MCHC RDW RDW Differential Plt Count MPV Immature Gran % (Auto) Neut % (Auto) Lymph % (Auto) Todd % (Auto) Eos % (Auto) Baso % (Auto) Absolute Neuts (auto) Absolute Lymphs (auto) Total Counted Specimen Type ART Sample Site R Brachial pH 7.23 L Bicarbonate Actual 22.4 POC Total CO2 24 Base Excess -5 L O2 Saturation 99 O2 % 100 ABG pCO2 53.9 H ABG pO2 175 H Humberto Test NA O2 Delivery Device Bi / C PAP EPAP 10 IPAP 18 Blood Gas Notified Whom ED Blood Gas Notified Time 910 Sodium Potassium Chloride Carbon Dioxide Anion Gap BUN Creatinine Estim Creat Clear Calc Est GFR (MDRD) Af Amer Est GFR (MDRD) Non-Af BUN/Creatinine Ratio Glucose Lactic Acid 2.8 H Calcium Troponin I B-Natriuretic Peptide Assessment/Plan All Active Problems (Last Reviewed 05/24/17 @ 15:10 by Melania Mendoza) Esophagitis determined by endoscopy (Acute ~05/06/17) Cardiogenic shock (Resolved ~06/08/16) Hypertensive emergency (Resolved) Abdominal pain (Resolved) Acute pulmonary edema (Resolved) Acute respiratory failure (Resolved) Atrial fibrillation with RVR (Resolved) Chest pain (Resolved) Elevated troponin (Resolved) Metabolic acidosis (Resolved) Shortness of breath (Resolved) 67 year old M past medical history of chronic systolic CHF, ischemic cardiomyopathy, EF 25%, history of CAD status post stent, pulmonary hypertension, hypertension, paroxysmal atrial fibrillation, CKD who came to the emergency department with 1 day history of wheezing and shortness of breath. 1. Acute hypoxic respiratory failure secondary to acute CHF exacerbation, present on admission, patient was on BiPAP on admission to the ED, improved, off BiPAP, continue on active CHF management. 2. Acute on chronic systolic CHF, EF 25%, unclear etiology for current presentation, chest x-ray in keeping with CHF And managed transiently on BiPAP with improvement, on 3 L oxygen on arrival to the ICU Plan: Continue with acute CHF management with IV Lasix, breathing treatment, incentive spirometer, fluid restriction, daily weight, strict I's and O's 3. Elevated troponins, underlining history of ischemic cardiomyopathy, follows Dr. Butler in the outpatient, will trend troponins, if persistently elevated will consult cardiology, continue on apixaban, carvedilol, Plavix, Imdur, losartan, pravastatin 4. Leukocytosis, likely reactive, will repeat blood work in a.m. 5. Type II DM, on insulin, would add Accu-Cheks with insulin sliding scale 6. Hypertension, slightly hypotensive, would hold hydralazine, continue on losartan, carvedilol, will monitor blood pressures closely 7. Paroxysmal atrial fibrillation, rate controlled, on amiodarone, continue on apixaban also 8. GERD, history of esophagitis, on PPI 9. DVT prophylaxis-on apixaban Code Visit Inpatient E&M: 96272 Init Hosp L3
--- NOTE | 2018-01-03 10:42 | ED.RN ---
DUE TO PT BP, NITRO DRIP ON HOLD PENDING INCREASE OF BP PER PHYSICIAN VERBAL ORDER, DR. RICCI.
--- NOTE | 2018-01-03 10:43 | NURSING ---
ICU 1, ACUTE HYPOXIC RESP FAILURE, CHF PAINTSIL
[2018-01-03 11:44] LABS: Magnesium 2.1 mg/dL (1.6-2.6)
[2018-01-03 13:27] LABS: Reflex Lactate? Y
--- NOTE | 2018-01-03 14:08 | RAD_ITS ---
STUDY: X-RAY - ABDOMEN/PELVIS REASON FOR EXAM: Male, 67 years old. Abdominal distention TECHNIQUE: Portable AP supine views of the abdomen and pelvis. COMPARISON: X-ray chest 01/03/2018 FINDINGS: Lung bases clear. Normal cardiac silhouette. No free air within the peritoneal cavity. Grossly normal size and position of the solid organs. No evidence of free intraperitoneal air. Unremarkable bowel pattern. Mild scattered gas in the small and large bowel. No significant large bowel stool burden. No acute osseous process. RAD/Abdomen Single View (Portable) IMPRESSION: No acute radiographic abnormality. Electronically Signed: Víctor Garcia, at 15:03 EDT Tel , Service support ,
[2018-01-03 14:21] LABS: Lactic Acid 2.1 mmol/L (0.4-2.0)
[2018-01-03 17:06] LABS: Bedside Glucose 134 mg/dL (70-110)
[2018-01-03] MEDS: 0.9% NaCl Peripheral Flush Adult/Peds IV (17:28)
--- NOTE | 2018-01-03 17:30 | PCM.CONS.C ---
Reason for Consult Date of Consultation: 01/03/18 Reason for Consultation: Shortness of breath and abnormal cardiac enzymes History of Present Illness: The patient is a 67 year old M, known patient of Dr. Blayne Butler with a history of coronary artery disease status post emergent angioplasty and stenting to his proximal right coronary artery in June 2016 at [facility] when he presented with acute inferior wall ST elevation myocardial infarction and bradycardia. He required temporary pacemaker and emergent catheterization. He required placement of a proximal coronary artery drug-eluting stent but due to significant tortuosity of the vessel as well as the distal inaccessibility no angioplasty was performed to the distal part of the vessel. He presented to the emergency room today with complaints of shortness of breath which she says started fairly suddenly. He denied any chest pain. In the emergency room he was noted to be very hypertensive with blood pressures in the 190 systolic range and elevated natruretic peptide level. He was admitted to the intensive care unit because there were no progressive care unit beds. He had a similar event in November of this year. Due to his previous history cardiology was consulted for further evaluation and management.Patient also has a history of atrial fibrillation on chronic amiodarone and Eliquis therapy, hypertension, hyperlipidemia, severe left ventricular systolic dysfunction with an estimated ejection fraction of 25% for which she has an ICD placed. In addition he has chronic renal insufficiency. In May 2017 the patient's repeat echocardiogram showed an EF of 25%. In addition he underwent a non-walking nuclear stress test which showed old anterior apical infarct as well as inferior lateral infarct. Past Medical History Allergies/Adverse Reactions: Allergies atorvastatin calcium [From Lipitor] Allergy (Verified 01/03/18 09:13) Unknown diltiazem Allergy (Verified 01/03/18 09:13) Angioedema Home Medications: Ambulatory Orders Medication Instructions Recorded Aspirin [Aspirin, Baby] 81 mg PO DAILY@0800 12/28/14 Pravastatin [Pravachol] 40 mg PO QHS 12/28/14 Amiodarone HCl 200 mg PO DAILY 04/09/16 clopidogrel 75 mg tablet 75 mg PO DAILY #30 tab 06/23/17 Apixaban [Eliquis] 2.5 mg PO BID 11/25/17 Hydralazine HCl 75 mg PO TID 11/25/17 Losartan Potassium 100 mg PO QDAY 11/25/17 Pantoprazole Sodium [Protonix] 40 mg PO BID 11/25/17 Carvedilol [Coreg (Beta Thalia)] 12.5 mg PO BID #30 tab 11/28/17 Furosemide [Lasix] 80 mg PO BID@1000,1800 #60 tab 11/28/17 Isosorbide Mononitrate [Imdur] 120 mg PO BID #60 tab 11/28/17 Novolin 70-30 100 Unit/ml Vial 27 units SQ BID #0 11/28/17 Past Medical History (Chronic Problems): Chronic Problems (Last Reviewed 05/24/17 @ 15:10 by Melania Mendoza) CAD (coronary artery disease) (Chronic) Presence of implantable cardioverter-defibrillator (ICD) (Chronic) Type 2 diabetes mellitus without complications (Chronic) DDD (degenerative disc disease) (Chronic) 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) History of coronary artery stent placement (Chronic ~06/08/16) SARA-RCA 06/15/2011, SARA-OM1 06/30/2011, SARA-LAD 08/20/2014, SARA-Prox- RCA 06/08/2016 Atherosclerosis of coronary artery of [place] heart without angina pectoris (Chronic) SARA-RCA 06/15/2011, SARA-OM1 06/30/2011, SARA-LAD 08/20/2014, SARA-Prox- RCA 06/08/2016 Paroxysmal atrial fibrillation (Chronic) Hypertension (Chronic) Hyperlipidemia (Chronic) Type II diabetes mellitus (Chronic) Hyperkalemia (Chronic) Chronic renal failure, stage 3 (moderate) (Chronic) STEMI (ST elevation myocardial infarction) (Chronic) Anemia of chronic renal failure, stage 3 (moderate) (Chronic) Obesity (BMI 30.0-34.9) (Chronic) Systolic CHF, acute on chronic (Chronic) Cardiomyopathy, ischemic (Chronic) Surgical History: - - s/p stents, AICD Psychiatric History: No pertinent psych hx, - - unknow - pt is intubated and unable to give hx. No family present - *Family History Maternal Family History: Family History (Last Reviewed 05/24/17 @ 15:10 by Melania Mendoza) Brother Sudden cardiac History Items: No pertinent history Paternal Family History: Family History (Last Reviewed 05/24/17 @ 15:10 by Melania Mendoza) Brother Sudden cardiac History Items: No pertinent history Sibling Family History: Family History (Last Reviewed 05/24/17 @ 15:10 by Melania Mendoza) Brother Sudden cardiac History Items: Heart Disease - sudden Lives: Spouse/ Significant Other Smoking Status: Former smoker Tobacco Use: Non-smoker Alcohol: Occasional - beer Drugs: None Review of Systems - Review of Systems General: Denies: Fever, Night Sweats, Fatigue Cardiovascular: Reports: Shortness of Breath, Shortness of Breath at Rest. Denies: Chest Discomfort, Orthopnea, PND, Peripheral Edema, Palpitations, Lightheadedness, Dizziness, Near Syncope, Syncope Respiratory: Denies: Cough, Sputum Production, Hemoptysis Gastrointestinal: Denies: Hematemesis, Hematochezia, Melena Genitourinary: Denies: Dysuria, Hematuria Skin: Denies: Rash Subjectve: Pleasant gentleman in no apparent distress. Currently on 2 L nasal cannula Objective: Vital Signs Temp Pulse Resp BP Pulse Ox 96.5 F L 63 20 H 110/75 99 01/03/18 11:15 01/03/18 16:00 01/03/18 16:00 01/03/18 15:00 01/03/18 16:00 Oxygen Flow Rate (L/min) 3 Oxygen Delivery Method Nasal Cannula Weight: 217 lb 13.067 oz Body Mass Index (BMI) 32.1 Finger Stick Blood Glucose 213 Intake and Output for Last 24 Hours 01/01/18 01/02/18 01/03/18 23:59 23:59 23:59 Intake Total 100 / 100 Balance 100 / 100 General: Awake, Alert, Oriented x 3 HEENT: PERRL, EOMI, Sclera Non Icteric Neck: Supple, Good ROM, No Lymph Node Enlargement Lungs: Rales - Jigar Bases Cardiovascular: Regular Rhythm, Normal S1, Normal S2, No Murmurs, No Rubs, No Gallops Vascular: No Carotid Bruits, Normal Femoral Pulses, Normal Radial Pulses, Normal Dorsalis Pedal Pulse, Normal Posterior Tibial Pulses Abdomen: Bowel Sounds Present, Soft, Non Tender, No HSM, No Organomegaly Extremities: No Cyanosis, No Clubbing, No edema Neurological: No Focal Motor or Sensory Deficit Psych/Mental Status: Appropriate 01/03/18 09:05: WBC 15.7 H, RBC 5.30, Hgb 15.5, Hct 48.1, MCV 90.8, MCH 29.2, MCHC 32.2, RDW 14.2, RDW Differential 46.6 H, Plt Count 263, MPV 9.7, Immature Gran % (Auto) 1.300 H, Neut % (Auto) 75.2 H, Lymph % (Auto) 12.0 L, Benzie % (Auto) 8.7, Eos % (Auto) 2.2, Baso % (Auto) 0.6, Absolute Neuts (auto) 11.8 H, Total Counted Not Reportable 01/03/18 09:05: Sodium 137, Potassium 4.4, Chloride 99, Carbon Dioxide 26.0, Anion Gap 12, BUN 32 H, Creatinine 2.64 H, Est GFR (MDRD) Af Amer 31 L, Est GFR (MDRD) Non-Af 26 L, BUN/Creatinine Ratio 12.1, Glucose 280 H, Calcium 8.2 L, Troponin I 0.046 H 01/03/18 09:05: B-Natriuretic Peptide 232.9 H 01/03/18 09:05: Magnesium 2.1 01/03/18 09:16: pH 7.23 L, Bicarbonate Actual 22.4, POC Total CO2 24, Base Excess -5 L, O2 Saturation 99, ABG pCO2 53.9 H, ABG pO2 175 H, Humberto Test NA 01/03/18 09:25: Lactic Acid 2.8 H 01/03/18 12:55: Troponin I 0.216 H 01/03/18 13:45: Lactic Acid 2.1 H 01/03/18 16:15: Troponin I 0.353 H Rhythm: EKG: Normal sinus rhythm with a rate of 95 bpm and left bundle branch block pattern noted. Assessment/Plan 1. Acute on chronic congestive heart failure He presents with marked shortness of breath with severe hypertension suggestive of a hypertensive emergency. He has had a previous history of medication noncompliance and I do not know what role that place here. My recommendation would be to continue IV diuretic therapy, aggressively treat his blood pressure and follow him clinically to see how he does. His medications should all be resumed. They will be reviewed. 2. Coronary artery disease: Patient has had no chest pain symptoms, and has known significant coronary artery disease. I reviewed his last cardiac catheterization. His cardiac enzyme abnormality at the moment appears to be secondary to demand ischemia from his marked hypertension. He underwent a pharmacologic stress test in May of this year which demonstrated no evidence of ischemia. Due to his high risk for further renal dysfunction with an invasive approach I would recommend aggressive medical therapy and to resort to an invasive approach only if his cardiac enzymes are significantly abnormal and/or he manifests cardiac and/or clinical symptoms Would recommend continuing his beta-thalia Continue isosorbide Start ranolazine 3. Hyperlipidemia: Continue statin based therapy. 4. Atrial fibrillation: Patient is currently in normal sinus rhythm by EKG. Continue amiodarone and Eliquis therapy. 5. Status post ICD implantation He does have an ICD implanted and the plan will be to continue to follow him in our office. At this time I do not have any indication that he has had a recent ICD discharge. 6. Ischemic cardiomyopathy Does have severe ischemic cardiomyopathy with an estimated ejection fraction of 25%. The plan will be to continue him on his current medical therapy and see how he responds to the above. Further recommendations will be made based on his response.
--- NOTE | 2018-01-03 17:35 | CON.PCM_ITS ---
Reason for Consult Date of Consultation: 01/03/18 Reason for Consultation: Shortness of breath and abnormal cardiac enzymes History of Present Illness: The patient is a 67 year old M, known patient of Dr. Blayne Butler with a history of coronary artery disease status post emergent angioplasty and stenting to his proximal right coronary artery in June 2016 at [facility] when he presented with acute inferior wall ST elevation myocardial infarction and bradycardia. He required temporary pacemaker and emergent catheterization. He required placement of a proximal coronary artery drug- eluting stent but due to significant tortuosity of the vessel as well as the distal inaccessibility no angioplasty was performed to the distal part of the vessel. He presented to the emergency room today with complaints of shortness of breath which she says started fairly suddenly. He denied any chest pain. In the emergency room he was noted to be very hypertensive with blood pressures in the 190 systolic range and elevated natruretic peptide level. He was admitted to the intensive care unit because there were no progressive care unit beds. He had a similar event in November of this year. Due to his previous history cardiology was consulted for further evaluation and management.Patient also has a history of atrial fibrillation on chronic amiodarone and Eliquis therapy, hypertension, hyperlipidemia, severe left ventricular systolic dysfunction with an estimated ejection fraction of 25% for which she has an ICD placed. In addition he has chronic renal insufficiency. In May 2017 the patient's repeat echocardiogram showed an EF of 25%. In addition he underwent a non-walking nuclear stress test which showed old anterior apical infarct as well as inferior lateral infarct. Past Medical History Allergies/Adverse Reactions: Allergies atorvastatin calcium [From Lipitor] Allergy (Verified 01/03/18 09:13) Unknown diltiazem Allergy (Verified 01/03/18 09:13) Angioedema Home Medications: Ambulatory Orders Medication Instructions Recorded Aspirin [Aspirin, Baby] 81 mg PO DAILY@0800 12/28/14 Pravastatin [Pravachol] 40 mg PO QHS 12/28/14 Amiodarone HCl 200 mg PO DAILY 04/09/16 clopidogrel 75 mg tablet 75 mg PO DAILY #30 tab 06/23/17 Apixaban [Eliquis] 2.5 mg PO BID 11/25/17 Hydralazine HCl 75 mg PO TID 11/25/17 Losartan Potassium 100 mg PO QDAY 11/25/17 Pantoprazole Sodium [Protonix] 40 mg PO BID 11/25/17 Carvedilol [Coreg (Beta Thalia)] 12.5 mg PO BID #30 tab 11/28/17 Furosemide [Lasix] 80 mg PO BID@1000,1800 #60 tab 11/28/17 Isosorbide Mononitrate [Imdur] 120 mg PO BID #60 tab 11/28/17 Novolin 70-30 100 Unit/ml Vial 27 units SQ BID #0 11/28/17 Past Medical History (Chronic Problems): Chronic Problems (Last Reviewed 05/24/17 @ 15:10 by Melania Mendoza) CAD (coronary artery disease) (Chronic) Presence of implantable cardioverter-defibrillator (ICD) (Chronic) Type 2 diabetes mellitus without complications (Chronic) DDD (degenerative disc disease) (Chronic) 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) History of coronary artery stent placement (Chronic ~06/08/16) SARA-RCA 06/15/2011, SARA-OM1 06/30/2011, SARA-LAD 08/20/2014, SARA-Prox- RCA 06/08/2016 Atherosclerosis of coronary artery of [place] heart without angina pectoris (Chronic) SARA-RCA 06/15/2011, SARA-OM1 06/30/2011, SARA-LAD 08/20/2014, SARA-Prox- RCA 06/08/2016 Paroxysmal atrial fibrillation (Chronic) Hypertension (Chronic) Hyperlipidemia (Chronic) Type II diabetes mellitus (Chronic) Hyperkalemia (Chronic) Chronic renal failure, stage 3 (moderate) (Chronic) STEMI (ST elevation myocardial infarction) (Chronic) Anemia of chronic renal failure, stage 3 (moderate) (Chronic) Obesity (BMI 30.0-34.9) (Chronic) Systolic CHF, acute on chronic (Chronic) Cardiomyopathy, ischemic (Chronic) Surgical History: - - s/p stents, AICD Psychiatric History: No pertinent psych hx, - - unknow - pt is intubated and unable to give hx. No family present - *Family History Maternal Family History: Family History (Last Reviewed 05/24/17 @ 15:10 by Melania Mendoza) Brother Sudden cardiac History Items: No pertinent history Paternal Family History: Family History (Last Reviewed 05/24/17 @ 15:10 by Melania Mendoza) Brother Sudden cardiac History Items: No pertinent history Sibling Family History: Family History (Last Reviewed 05/24/17 @ 15:10 by Melania Mendoza) Brother Sudden cardiac History Items: Heart Disease - sudden Lives: Spouse/ Significant Other Smoking Status: Former smoker Tobacco Use: Non-smoker Alcohol: Occasional - beer Drugs: None Review of Systems - Review of Systems General: Denies: Fever, Night Sweats, Fatigue Cardiovascular: Reports: Shortness of Breath, Shortness of Breath at Rest. Denies: Chest Discomfort, Orthopnea, PND, Peripheral Edema, Palpitations, Lightheadedness, Dizziness, Near Syncope, Syncope Respiratory: Denies: Cough, Sputum Production, Hemoptysis Gastrointestinal: Denies: Hematemesis, Hematochezia, Melena Genitourinary: Denies: Dysuria, Hematuria Skin: Denies: Rash Subjectve: Pleasant gentleman in no apparent distress. Currently on 2 L nasal cannula Objective: Vital Signs Temp Pulse Resp BP Pulse Ox 96.5 F L 63 20 H 110/75 99 01/03/18 11:15 01/03/18 16:00 01/03/18 16:00 01/03/18 15:00 01/03/18 16:00 Oxygen Flow Rate (L/min) 3 Oxygen Delivery Method Nasal Cannula Weight: 217 lb 13.067 oz Body Mass Index (BMI) 32.1 Finger Stick Blood Glucose 213 Intake and Output for Last 24 Hours 01/01/18 01/02/18 01/03/18 23:59 23:59 23:59 Intake Total 100 / 100 Balance 100 / 100 General: Awake, Alert, Oriented x 3 HEENT: PERRL, EOMI, Sclera Non Icteric Neck: Supple, Good ROM, No Lymph Node Enlargement Lungs: Rales - Jigar Bases Cardiovascular: Regular Rhythm, Normal S1, Normal S2, No Murmurs, No Rubs, No Gallops Vascular: No Carotid Bruits, Normal Femoral Pulses, Normal Radial Pulses, Normal Dorsalis Pedal Pulse, Normal Posterior Tibial Pulses Abdomen: Bowel Sounds Present, Soft, Non Tender, No HSM, No Organomegaly Extremities: No Cyanosis, No Clubbing, No edema Neurological: No Focal Motor or Sensory Deficit Psych/Mental Status: Appropriate 01/03/18 09:05: WBC 15.7 H, RBC 5.30, Hgb 15.5, Hct 48.1, MCV 90.8, MCH 29.2, MCHC 32.2, RDW 14.2, RDW Differential 46.6 H, Plt Count 263, MPV 9.7, Immature Gran % (Auto) 1.300 H, Neut % (Auto) 75.2 H, Lymph % (Auto) 12.0 L, Howell % (Auto) 8.7, Eos % (Auto) 2.2, Baso % (Auto) 0.6, Absolute Neuts (auto) 11.8 H, Total Counted Not Reportable 01/03/18 09:05: Sodium 137, Potassium 4.4, Chloride 99, Carbon Dioxide 26.0, Anion Gap 12, BUN 32 H, Creatinine 2.64 H, Est GFR (MDRD) Af Amer 31 L, Est GFR (MDRD) Non-Af 26 L, BUN/Creatinine Ratio 12.1, Glucose 280 H, Calcium 8.2 L, Troponin I 0.046 H 01/03/18 09:05: B-Natriuretic Peptide 232.9 H 01/03/18 09:05: Magnesium 2.1 01/03/18 09:16: pH 7.23 L, Bicarbonate Actual 22.4, POC Total CO2 24, Base Excess -5 L, O2 Saturation 99, ABG pCO2 53.9 H, ABG pO2 175 H, Humberto Test NA 01/03/18 09:25: Lactic Acid 2.8 H 01/03/18 12:55: Troponin I 0.216 H 01/03/18 13:45: Lactic Acid 2.1 H 01/03/18 16:15: Troponin I 0.353 H Rhythm: EKG: Normal sinus rhythm with a rate of 95 bpm and left bundle branch block pattern noted. Assessment/Plan 1. Acute on chronic congestive heart failure He presents with marked shortness of breath with severe hypertension suggestive of a hypertensive emergency. He has had a previous history of medication noncompliance and I do not know what role that place here. My recommendation would be to continue IV diuretic therapy, aggressively treat his blood pressure and follow him clinically to see how he does. His medications should all be resumed. They will be reviewed. 2. Coronary artery disease: Patient has had no chest pain symptoms, and has known significant coronary artery disease. I reviewed his last cardiac catheterization. His cardiac enzyme abnormality at the moment appears to be secondary to demand ischemia from his marked hypertension. He underwent a pharmacologic stress test in May of this year which demonstrated no evidence of ischemia. * Due to his high risk for further renal dysfunction with an invasive approach I would recommend aggressive medical therapy and to resort to an invasive approach only if his cardiac enzymes are significantly abnormal and/or he manifests cardiac and/or clinical symptoms * Would recommend continuing his beta-thalia * Continue isosorbide * Start ranolazine 3. Hyperlipidemia: * Continue statin based therapy. 4. Atrial fibrillation: * Patient is currently in normal sinus rhythm by EKG. Continue amiodarone and Eliquis therapy. * 5. Status post ICD implantation * He does have an ICD implanted and the plan will be to continue to follow him in our office. At this time I do not have any indication that he has had a recent ICD discharge. 6. Ischemic cardiomyopathy * Does have severe ischemic cardiomyopathy with an estimated ejection fraction of 25%. The plan will be to continue him on his current medical therapy and see how he responds to the above. Further recommendations will be made based on his response.
[2018-01-03] MEDS: Carvedilol 25 MG Tablet PO (20:10)
[2018-01-03] MEDS: APIXABAN 2.5 MG TABLET PO (21:25)
[2018-01-03] MEDS: Insulin Human 75/25 Kwickpen 27 UNIT SC (21:27)
[2018-01-03] MEDS: Pravastatin 40 MG Tablet PO (21:28)
[2018-01-03] MEDS: Pantoprazole Sodium 40 MG Tablet PO (21:28)
[2018-01-03] MEDS: Ranolazine 500 MG Tablet PO (21:30)
[2018-01-03 21:40] LABS: Bedside Glucose 122 mg/dL (70-110)
[2018-01-04] VITALS (10 sets, daily range): BP systolic 115–144; BP diastolic 67–82; PULSE 58–71; RESP 16–24; TEMP 36.2–36.8; O2SAT 93–97
--- NOTE | 2018-01-04 01:14 | NURSING ---
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 Pt appears diaphoretic and pale fingerstick blood glucose reading 51, pt is given 240 ml orange juice and 4 gram crackers with peanut butter. At 0137 blood glucose has increased to 75, pt continues to c/o diaphoresis and not feeling well. 1/2 amp D50 given per protocol. 0205 Blood glucose now 137 pt states feeling better. Will continue to monitor.
[2018-01-04 01:26] LABS: Bedside Glucose 51 mg/dL (70-110)
[2018-01-04] MEDS: 0.9% NaCl Peripheral Flush Adult/Peds IV ×3 (01:41→11:33)
[2018-01-04] MEDS: Dextrose 50%-Water 25 GM/50 ML DISP.SYRIN IV (01:41)
[2018-01-04 01:51] LABS: Bedside Glucose 75 mg/dL (70-110)
[2018-01-04 02:11] LABS: Bedside Glucose 137 mg/dL (70-110)
[2018-01-04 04:21] LABS: Bedside Glucose 114 mg/dL (70-110)
[2018-01-04 04:45] LABS: Absolute Lymphocyte Count 0.88 X10^3/ul (0.83-4.51); Basophil# 0.03 X10^3/uL; Basophil% 0.3 % (0-1); Eosinophil# 0.09 X10^3/uL; Eosinophils% 0.9 % (0-5); Hematocrit 37.8 % (40-54); Hemoglobin 12.3 g/dl (13.0-16.5); Lymphocyte # 0.88 X10^3/ul (4.0); Lymphocyte % 8.9 % (19-41); Mean Corp Hgb Conc 32.5 g/gl (32-36); Mean Corpuscular Hgb 29.1 pg (27.0-32.0); Mean Corpuscular Volume 89.6 fL (80-94); Mean Platelet Vol. 9.3 fl (6.2-12.0); Monocyte% 8.1 % (0-10); Neutrophil # 7.97 X10^3/uL (2.7-7.7); Neutrophil % 81.1 % (47-70); Platelet Count 198 K/mm3 (150-450); RBC Distribution Width CV 14.3 % (11.6-14.6); RBC Distribution Width SD 45.9 fl (35.1-43.9); Red Blood Count 4.22 M/mm3 (4.6-6.2); White Blood Count 9.8 K/mm3 (4.4-11.0)
[2018-01-04 04:54] LABS: POSITIVE COUNT NO; POSITIVE DIFFERENTIAL NO; POSITIVE MORPHOLOGY NO
[2018-01-04 05:06] LABS: Anion Gap 9 (5-15); BUN 41 mg/dL (7-18); Chloride 104 mmol/L (98-107); Cholesterol 131 mg/dL (200); Creatinine, Serum 2.74 mg/dL (0.70-1.30); EST Glomerular Filtration Rate 25 mL/min (>60); Est Glom Filt Rate - Afr Amer 30 mL/min (>60); Estimated Creatinine Clearance 26.88 ml/min; Glucose 117 mg/dL (74-106); High Density Lipoprotein 36 mg/dL; Potassium 3.9 mmol/L (3.5-5.1); Sodium Level 141 mmol/L (136-145); Triglycerides 174 mg/dL; Very Low Density Lipoprotein 35 mg/dL (5-40)
--- NOTE | 2018-01-04 07:23 | PCM.PN.HOSP ---
Subjective: Patient was seen and examined. He feels much better. He is off oxygen and BiPAP. On room air. Denies any chest pain or dizziness or shortness of breath. He feels generally weak. Vitals/I&O's: Vital Signs Temp Pulse Resp BP Pulse Ox 97.1 F L 59 L 24 H 115/69 97 01/04/18 04:00 01/04/18 04:00 01/04/18 04:00 01/04/18 04:00 01/04/18 04:00 Oxygen Flow Rate (L/min) 2 Oxygen Delivery Method Nasal Cannula Weight: 98.5 kg Body Mass Index (BMI) 32.1 Finger Stick Blood Glucose 213 Intake and Output for Last 24 Hours 01/02/18 01/03/18 01/04/18 23:59 23:59 23:59 Intake Total 320 / 320 360 / 360 Output Total 250 / 250 725 / 725 Balance 70 / 70 -365 / -365 General: Alert, Oriented x3, Cooperative, No apparent distress, - HEENT: Atraumatic, PERRLA, EOMI, Normocephalic Oral: Moist Mucosa - On room air, appears comfortable Neck: Supple, No JVD, Negative Carotid Bruits Lungs: Clear to auscultation, Normal air movement Cardiovascular: Regular rate, Regular Rhythm, Normal S1, Normal S2, No murmurs Abdomen: Bowel Sounds Present, Soft, Non Tender, Non-Distended, No Hepato-splenomegaly Extremities: No edema Skin: No rashes, No breakdown Musculoskeletal: No Tenderness to Palpation of Joints or Extremities Lymphatic: No Cervical, Supraclavicular, or Inguinal Adenopathy Neurological: Cranial nerves II-XII grossly intact, Neuro grossly intact Psych/Mental Status: Normal Affect, Appropriate Laboratory Results 01/03/18 09:05: WBC 15.7 H, RBC 5.30, Hgb 15.5, Hct 48.1, MCV 90.8, MCH 29.2, MCHC 32.2, RDW 14.2, RDW Differential 46.6 H, Plt Count 263, MPV 9.7, Immature Gran % (Auto) 1.300 H, Neut % (Auto) 75.2 H, Lymph % (Auto) 12.0 L, [place] % (Auto) 8.7, Eos % (Auto) 2.2, Baso % (Auto) 0.6, Absolute Neuts (auto) 11.8 H, Absolute Lymphs (auto) 1.88, Total Counted Not Reportable 01/03/18 09:05: Sodium 137, Potassium 4.4, Chloride 99, Carbon Dioxide 26.0, Anion Gap 12, BUN 32 H, Creatinine 2.64 H, Estim Creat Clear Calc 27.90, Est GFR (MDRD) Af Amer 31 L, Est GFR (MDRD) Non-Af 26 L, BUN/Creatinine Ratio 12.1, Glucose 280 H, Calcium 8.2 L, Troponin I 0.046 H 01/03/18 09:05: B-Natriuretic Peptide 232.9 H 01/03/18 09:05: Magnesium 2.1 01/03/18 09:16: Specimen Type ART, Sample Site R Brachial, pH 7.23 L, Bicarbonate Actual 22.4, POC Total CO2 24, Base Excess -5 L, O2 Saturation 99, O2 % 100, ABG pCO2 53.9 H, ABG pO2 175 H, Humberto Test NA, O2 Delivery Device Bi / C PAP, EPAP 10, IPAP 18, Blood Gas Notified Whom ED , Blood Gas Notified Time 910 01/03/18 09:25: Lactic Acid 2.8 H 01/03/18 12:55: Troponin I 0.216 H 01/03/18 13:45: Lactic Acid 2.1 H 01/03/18 16:15: Troponin I 0.353 H 01/03/18 17:01: POC Glucose 134 H 01/03/18 21:22: POC Glucose 122 H 01/04/18 01:14: POC Glucose 51 L 01/04/18 01:37: POC Glucose 75 01/04/18 02:05: POC Glucose 137 H 01/04/18 03:59: POC Glucose 114 H 01/04/18 04:15: Sodium 141, Potassium 3.9, Chloride 104, Carbon Dioxide 28.0, Anion Gap 9, BUN 41 H, Creatinine 2.74 H, Estim Creat Clear Calc 26.88, Est GFR (MDRD) Af Amer 30 L, Est GFR (MDRD) Non-Af 25 L, BUN/Creatinine Ratio 15.0, Glucose 117 H, Calcium 8.0 L, Triglycerides 174, Cholesterol 131, LDL Cholesterol 60, VLDL Cholesterol 35, HDL Cholesterol 36 L 01/04/18 04:15: WBC 9.8, RBC 4.22 L, Hgb 12.3 L, Hct 37.8 L, MCV 89.6, MCH 29.1, MCHC 32.5, RDW 14.3, RDW Differential 45.9 H, Plt Count 198, MPV 9.3, Immature Gran % (Auto) 0.700, Neut % (Auto) 81.1 H, Lymph % (Auto) 8.9 L, [place] % (Auto) 8.1, Eos % (Auto) 0.9, Baso % (Auto) 0.3, Absolute Neuts (auto) 8.0 H, Absolute Lymphs (auto) 0.88, Total Counted Not Reportable Current Medications Acetaminophen (Tylenol) 650 mg PO Q6H PRN PRN PRN Reason: Mild Pain (1-3)/Temp > 100.7 F Amiodarone HCl (Cordarone) 200 mg PO DAILY [facility] Apixaban (Eliquis) 2.5 mg PO BID [facility] Last Admin: 01/03/18 21:25 Dose: 2.5 mg Aspirin (Aspirin, Baby) 81 mg PO DAILY@0800 [facility] Carvedilol (Coreg) 25 mg PO BID [facility] Last Admin: 01/03/18 20:10 Dose: 25 mg Clopidogrel Bisulfate (Plavix) 75 mg PO DAILY [facility] Dextrose (D50w Syringe) 0 gm IV X1 PRN; Protocol PRN Reason: Hypoglycemia Last Admin: 01/04/18 01:41 Dose: 12.5 gm Furosemide (Lasix) 40 mg IV BIDLX [facility] Last Admin: 01/03/18 17:28 Dose: 40 mg Glucagon () 1 mg IM .X1 PRN PRN Reason: Hypoglycemia Sodium Chloride () 250 mls @ 15 mls/hr IV .[id number] PRN PRN Reason: SALINE FLUSH Insulin Human Lispro (Humalog Kwikpen (Bkc)) 0 unit SQ ACHS [facility]; Protocol Last Admin: 01/03/18 21:25 Dose: Not Given Isosorbide Mononitrate (Imdur) 120 mg PO BID [facility] Last Admin: 01/03/18 21:28 Dose: 120 mg Losartan Potassium (Cozaar) 100 mg PO DAILY [facility] Magnesium Hydroxide (Milk Of Magnesia) 30 ml PO DAILY PRN PRN Reason: Constipation Nitroglycerin (Nitrostat) 0.4 mg SUBLINGUAL Q5M PRN PRN Reason: CARDIAC/CHEST PAIN Pantoprazole Sodium (Protonix) 40 mg PO BID [facility] Last Admin: 01/03/18 21:28 Dose: 40 mg Pravastatin Sodium (Pravachol) 40 mg PO QHS [facility] Last Admin: 01/03/18 21:28 Dose: 40 mg Psyllium Hydrophilic Mucilloid (Metamucil) 1 packet PO DAILY PRN PRN PRN Reason: CONSTIPATION Ranolazine (Ranexa) 500 mg PO BID [facility] Last Admin: 01/03/18 21:30 Dose: 500 mg Sodium Chloride () 5 - 30 ml IV UD PRN PRN Reason: SALINE FLUSH Last Admin: 01/04/18 01:41 Dose: 10 ml Medical Necessity - Tobacco Use Smoking Status: Former smoker Tobacco Use: Non-smoker Assessment/Plan All Active Problems (Last Reviewed 05/24/17 @ 15:10 by Melania Mendoza) Esophagitis determined by endoscopy (Acute ~05/06/17) Cardiogenic shock (Resolved ~06/08/16) Hypertensive emergency (Resolved) Abdominal pain (Resolved) Acute pulmonary edema (Resolved) Acute respiratory failure (Resolved) Atrial fibrillation with RVR (Resolved) Chest pain (Resolved) Elevated troponin (Resolved) Metabolic acidosis (Resolved) Shortness of breath (Resolved) 67 year old M with past medical history of chronic systolic CHF, ischemic cardiomyopathy, EF 25%, history of CAD status post stent, pulmonary hypertension, hypertension, paroxysmal atrial fibrillation, CKD who came to the emergency department with 1 day history of wheezing and shortness of breath. 1. Acute hypoxic respiratory failure secondary to acute CHF exacerbation, present on admission, resolved now, would evaluate for ambulatory oxygen on discharge 2. Acute on chronic systolic CHF, EF 25%, unclear etiology for current presentation, improved, will switch to oral Lasix 20 mg p.o. twice daily 3. Elevated troponins, underlining history of ischemic cardiomyopathy, follows Dr. Butler in the outpatient, appreciate cardiology consult, Ranexa added to his medications, also tolerating apixaban, carvedilol, Plavix, Imdur, losartan, pravastatin 4. Leukocytosis, reactive, resolved 5. YOMI on CKD stage III/IV, secondary to diuretic use, Lasix switch from IV to oral, nephrology consult to establish care 6. Type II DM, on insulin, would add Accu-Cheks with insulin sliding scale 7. Hypertension, slightly hypotensive, slightly improved with changes, will continue on losartan, carvedilol, will monitor blood pressures closely 8. Paroxysmal atrial fibrillation, rate controlled, on amiodarone, continue on apixaban also 9. GERD, history of esophagitis, on PPI 10. DVT prophylaxis-on apixaban Code Visit Inpatient E&M: 88295 Subs Hosp L2
[2018-01-04] MEDS: Amiodarone 200 MG Tablet PO (08:06)
[2018-01-04] MEDS: Aspirin 81 MG TAB.CHEW PO (08:07)
[2018-01-04] MEDS: Carvedilol 25 MG Tablet PO ×2 (08:08→21:20)
[2018-01-04] MEDS: Losartan Potassium 100 MG Tablet PO (08:08)
[2018-01-04] MEDS: Furosemide 40 MG/4 ML Vial IV (08:09)
[2018-01-04] MEDS: Clopidogrel Bisulfate 75 MG Tablet PO (08:09)
[2018-01-04] MEDS: Pantoprazole Sodium 40 MG Tablet PO ×2 (08:09→21:19)
[2018-01-04] MEDS: APIXABAN 2.5 MG TABLET PO ×2 (08:09→21:17)
[2018-01-04] MEDS: Ranolazine 500 MG Tablet PO ×2 (08:10→21:18)
--- NOTE | 2018-01-04 08:38 | NURSING ---
report called to [facility] transferred per wheelchairwith belongings to pcu
--- NOTE | 2018-01-04 10:06 | CASEMGMT ---
Face to Face with patient for initial transition planning/care coordination assessment. DEVYN HUTCHINS introduced self and role at [facility], pt voices understanding and consents to assessment at this time. Pt is sitting up in chair in no distress at this time. Pt is A/Ox4 at this time and answers all questions appropriately at this time. Care providers, pharmacy, and demographics verified. See attached link. Pt voices no further concerns/needs at this time. Advised pt to ask for CM if any further questions/concerns/needs arise, voices understanding. CM to follow for home oxygen and if any further discharge planning/needs arise. PLAN: [place] DEVYN HUTCHINS
[2018-01-04] MEDS: Insulin Lispro 100 UNIT/ML INSULN.PEN SQ ×3 (11:33→21:21)
[2018-01-04] MEDS: Insulin Human 75/25 Kwickpen 25 UNIT SC ×2 (11:34→21:32)
[2018-01-04 11:55] LABS: Bedside Glucose 172 mg/dL (70-110)
[2018-01-04 16:06] LABS: Bedside Glucose 206 mg/dL (70-110)
[2018-01-04] MEDS: Furosemide 20 MG Tablet PO (16:37)
--- NOTE | 2018-01-04 17:01 | PCM.CONS.R ---
Problem List (1) Chronic renal failure, stage 3 (moderate) Status: Chronic Consultation - Renal 01/04/18 PCP/ Referring MD: Requesting physician: Dr Navarro Primary care physician: Jennifer Spicer DO Reason for Consultation:: YOMI CKD 3 - History of Present Illness History of Present Illness: The patient is a 67 year old M presented to hospital with complaints of dyspnea. sudden onset, associated with wheezing. work up on admission showed CHF exacerbation. treated with lasix IV. renal consulted for worsening renal failure PMH as below CKd stage 3 with baseline creatinine around 1.8 to 2. now creatinine around 2.7 never seen a kidney doctor before. breathing is currently better. - Allergies Allergies: Allergies atorvastatin calcium [From Lipitor] Allergy (Verified 01/03/18 09:13) Unknown diltiazem Allergy (Verified 01/03/18 09:13) Angioedema - Current Medications Current Medications: Current Medications Acetaminophen (Tylenol) 650 mg PO Q6H PRN PRN PRN Reason: Mild Pain (1-3)/Temp > 100.7 F Amiodarone HCl (Cordarone) 200 mg PO DAILY [facility] Last Admin: 01/04/18 08:06 Dose: 200 mg Apixaban (Eliquis) 2.5 mg PO BID [facility] Last Admin: 01/04/18 08:09 Dose: 2.5 mg Aspirin (Aspirin, Baby) 81 mg PO DAILY@0800 [facility] Last Admin: 01/04/18 08:07 Dose: 81 mg Carvedilol (Coreg) 25 mg PO BID [facility] Last Admin: 01/04/18 08:08 Dose: 25 mg Clopidogrel Bisulfate (Plavix) 75 mg PO DAILY [facility] Last Admin: 01/04/18 08:09 Dose: 75 mg Dextrose (D50w Syringe) 0 gm IV X1 PRN; Protocol PRN Reason: Hypoglycemia Last Admin: 01/04/18 01:41 Dose: 12.5 gm Furosemide (Lasix) 60 mg PO BID@1000,1800 [facility] Glucagon () 1 mg IM .X1 PRN PRN Reason: Hypoglycemia Sodium Chloride () 250 mls @ 15 mls/hr IV .[id number] PRN PRN Reason: SALINE FLUSH Insulin Human Lispro (Humalog Kwikpen (Bkc)) 0 unit SQ ACHS [facility]; Protocol Last Admin: 01/04/18 16:34 Dose: 1 u Isosorbide Mononitrate (Imdur) 120 mg PO BID [facility] Last Admin: 01/04/18 08:09 Dose: 120 mg Losartan Potassium (Cozaar) 100 mg PO DAILY [facility] Last Admin: 01/04/18 08:08 Dose: 100 mg Magnesium Hydroxide (Milk Of Magnesia) 30 ml PO DAILY PRN PRN Reason: Constipation Nitroglycerin (Nitrostat) 0.4 mg SUBLINGUAL Q5M PRN PRN Reason: CARDIAC/CHEST PAIN Pantoprazole Sodium (Protonix) 40 mg PO BID [facility] Last Admin: 01/04/18 08:09 Dose: 40 mg Pravastatin Sodium (Pravachol) 40 mg PO QHS [facility] Last Admin: 01/03/18 21:28 Dose: 40 mg Psyllium Hydrophilic Mucilloid (Metamucil) 1 packet PO DAILY PRN PRN PRN Reason: CONSTIPATION Ranolazine (Ranexa) 500 mg PO BID [facility] Last Admin: 01/04/18 08:10 Dose: 500 mg Sodium Chloride () 5 - 30 ml IV UD PRN PRN Reason: SALINE FLUSH Last Admin: 01/04/18 11:33 Dose: 10 ml - Past Medical History Past Medical History (Chronic Problems): Chronic Problems (Last Reviewed 05/24/17 @ 15:10 by Melania Mendoza) CAD (coronary artery disease) (Chronic) Presence of implantable cardioverter-defibrillator (ICD) (Chronic) Type 2 diabetes mellitus without complications (Chronic) DDD (degenerative disc disease) (Chronic) 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) History of coronary artery stent placement (Chronic ~06/08/16) SARA-RCA 06/15/2011, SARA-OM1 06/30/2011, SARA-LAD 08/20/2014, SARA-Prox- RCA 06/08/2016 Atherosclerosis of coronary artery of [place] heart without angina pectoris (Chronic) SARA-RCA 06/15/2011, SARA-OM1 06/30/2011, SARA-LAD 08/20/2014, SARA-Prox- RCA 06/08/2016 Paroxysmal atrial fibrillation (Chronic) Hypertension (Chronic) Hyperlipidemia (Chronic) Type II diabetes mellitus (Chronic) Hyperkalemia (Chronic) Chronic renal failure, stage 3 (moderate) (Chronic) STEMI (ST elevation myocardial infarction) (Chronic) Anemia of chronic renal failure, stage 3 (moderate) (Chronic) Obesity (BMI 30.0-34.9) (Chronic) Systolic CHF, acute on chronic (Chronic) Cardiomyopathy, ischemic (Chronic) - Past Surgical History Surgical History: - - s/p stents, AICD - Social History Smoking Status: Former smoker Alcohol: Occasional - beer Drugs: None - Family History Maternal Family History: Family History (Last Reviewed 05/24/17 @ 15:10 by Melania Mendoza) Brother Sudden cardiac History Items: No pertinent history Paternal Family History: Family History (Last Reviewed 05/24/17 @ 15:10 by Melania Mendoza) Brother Sudden cardiac History Items: No pertinent history Sibling Family History: Family History (Last Reviewed 05/24/17 @ 15:10 by Melania Mendoza) Brother Sudden cardiac History Items: Heart Disease - sudden Review of Systems Constitutional: Denies: Chills, Fever, Weight Change HEENT: Denies: Head Aches, Sinus Congestion, Sinus Drainage Cardiovascular: Denies: Chest Pain, Palpitations Respiratory: Denies: Cough, Shortness of breath at rest, Sputum production Gastrointestinal: Denies: Abdominal Pain, Nausea, Vomiting Genitourinary: Denies: Dysuria Musculoskeletal: Denies: Joint Pain, Joint Tenderness Skin: Denies: Rash, Wounds Neurological: Denies: Numbness, Tingling, Focal weakness Psychiatric: Denies: Anxiety, Depression, Homicidal Ideations, Suicidal Ideations Hematologic/ Lymphatic: Denies: Easy Bruising, Easy Bleeding - Physical Exam General: Alert, Oriented x3, Cooperative HEENT: Atraumatic, PERRLA, EOMI, Normocephalic Neck: Supple, No JVD, Negative Carotid Bruits Lungs: Clear to auscultation, Normal air movement Cardiovascular: Regular rate, No murmurs Abdomen: Bowel Sounds Present, Soft, Non Tender Extremities: No edema, Capillary Refill Less than 3 Seconds Skin: No rashes, No breakdown Musculoskeletal: No Tenderness to Palpation of Joints or Extremities Neurological: Cranial nerves II-XII grossly intact Psych/Mental Status: Normal Affect, Appropriate Vital Signs Temp Pulse Resp BP Pulse Ox 98.3 F 71 16 116/67 94 01/04/18 14:37 01/04/18 14:58 01/04/18 14:37 01/04/18 14:37 01/04/18 14:37 Oxygen Flow Rate (L/min) 2 Oxygen Delivery Method Room Air Weight: 98.5 kg Body Mass Index (BMI) 32.1 Finger Stick Blood Glucose 213 Intake and Output for Last 24 Hours 01/02/18 01/03/18 01/04/18 23:59 23:59 23:59 Intake Total 320 / 320 360 / 360 Output Total 250 / 250 725 / 725 Balance 70 / 70 -365 / -365 Laboratory Tests Past 24 Hrs 01/04/18 01/04/18 04:15 04:15 WBC 9.8 RBC 4.22 L Hgb 12.3 L Hct 37.8 L MCV 89.6 MCH 29.1 MCHC 32.5 RDW 14.3 RDW Differential 45.9 H Plt Count 198 MPV 9.3 Immature Gran % (Auto) 0.700 Neut % (Auto) 81.1 H Lymph % (Auto) 8.9 L Howard % (Auto) 8.1 Eos % (Auto) 0.9 Baso % (Auto) 0.3 Absolute Neuts (auto) 8.0 H Absolute Lymphs (auto) 0.88 Total Counted Not Reportable Sodium 141 Potassium 3.9 Chloride 104 Carbon Dioxide 28.0 Anion Gap 9 BUN 41 H Creatinine 2.74 H Estim Creat Clear Calc 26.88 Est GFR (MDRD) Af Amer 30 L Est GFR (MDRD) Non-Af 25 L BUN/Creatinine Ratio 15.0 Glucose 117 H Calcium 8.0 L Triglycerides 174 Cholesterol 131 LDL Cholesterol 60 VLDL Cholesterol 35 HDL Cholesterol 36 L POC Glucose 01/04/18 01/04/18 01/04/18 16:03 11:28 03:59 POC Glucose 206 H 172 H 114 H 01/04/18 01/04/18 01/04/18 02:05 01:37 01:14 POC Glucose 137 H 75 51 L 01/03/18 01/03/18 21:22 17:01 POC Glucose 122 H 134 H Assessment/Plan All Active Problems (Last Reviewed 05/24/17 @ 15:10 by Melania Mendoza) Esophagitis determined by endoscopy (Acute ~05/06/17) Cardiogenic shock (Resolved ~06/08/16) Hypertensive emergency (Resolved) Abdominal pain (Resolved) Acute pulmonary edema (Resolved) Acute respiratory failure (Resolved) Atrial fibrillation with RVR (Resolved) Chest pain (Resolved) Elevated troponin (Resolved) Metabolic acidosis (Resolved) Shortness of breath (Resolved) YOMI CKD stage 3. Baseline creatinine as of last month is around 1.8 to 2.0. creatinine slowly worsening in setting of diuresis. CT abdomen from May did not show any hydronephrosis. there was however some perinephric stranding. UA showed proteinuria. can send for quantification as outpatient creatinine increase is likely CRS. HTN. BP was fairly high initially. now better with diuresis. Renal A dopplers negative. CHF. clinically better. change lasix to 60 mg BID PO for now will arrange follow up as outpatient after dc d/w Dr Navarro
--- NOTE | 2018-01-04 17:05 | CON.PCM_ITS ---
Problem List (1) Chronic renal failure, stage 3 (moderate) Status: Chronic Consultation - Renal 01/04/18 PCP/ Referring MD: Requesting physician: Dr Navarro Primary care physician: Jennifer Spicer DO Reason for Consultation:: YOMI CKD 3 - History of Present Illness History of Present Illness: The patient is a 67 year old M presented to hospital with complaints of dyspnea. sudden onset, associated with wheezing. work up on admission showed CHF exacerbation. treated with lasix IV. renal consulted for worsening renal failure PMH as below CKd stage 3 with baseline creatinine around 1.8 to 2. now creatinine around 2.7 never seen a kidney doctor before. breathing is currently better. - Allergies Allergies: Allergies atorvastatin calcium [From Lipitor] Allergy (Verified 01/03/18 09:13) Unknown diltiazem Allergy (Verified 01/03/18 09:13) Angioedema - Current Medications Current Medications: Current Medications Acetaminophen (Tylenol) 650 mg PO Q6H PRN PRN PRN Reason: Mild Pain (1-3)/Temp > 100.7 F Amiodarone HCl (Cordarone) 200 mg PO DAILY [facility] Last Admin: 01/04/18 08:06 Dose: 200 mg Apixaban (Eliquis) 2.5 mg PO BID [facility] Last Admin: 01/04/18 08:09 Dose: 2.5 mg Aspirin (Aspirin, Baby) 81 mg PO DAILY@0800 [facility] Last Admin: 01/04/18 08:07 Dose: 81 mg Carvedilol (Coreg) 25 mg PO BID [facility] Last Admin: 01/04/18 08:08 Dose: 25 mg Clopidogrel Bisulfate (Plavix) 75 mg PO DAILY [facility] Last Admin: 01/04/18 08:09 Dose: 75 mg Dextrose (D50w Syringe) 0 gm IV X1 PRN; Protocol PRN Reason: Hypoglycemia Last Admin: 01/04/18 01:41 Dose: 12.5 gm Furosemide (Lasix) 60 mg PO BID@1000,1800 [facility] Glucagon () 1 mg IM .X1 PRN PRN Reason: Hypoglycemia Sodium Chloride () 250 mls @ 15 mls/hr IV .[id number] PRN PRN Reason: SALINE FLUSH Insulin Human Lispro (Humalog Kwikpen (Bkc)) 0 unit SQ ACHS [facility]; Protocol Last Admin: 01/04/18 16:34 Dose: 1 u Isosorbide Mononitrate (Imdur) 120 mg PO BID [facility] Last Admin: 01/04/18 08:09 Dose: 120 mg Losartan Potassium (Cozaar) 100 mg PO DAILY [facility] Last Admin: 01/04/18 08:08 Dose: 100 mg Magnesium Hydroxide (Milk Of Magnesia) 30 ml PO DAILY PRN PRN Reason: Constipation Nitroglycerin (Nitrostat) 0.4 mg SUBLINGUAL Q5M PRN PRN Reason: CARDIAC/CHEST PAIN Pantoprazole Sodium (Protonix) 40 mg PO BID [facility] Last Admin: 01/04/18 08:09 Dose: 40 mg Pravastatin Sodium (Pravachol) 40 mg PO QHS [facility] Last Admin: 01/03/18 21:28 Dose: 40 mg Psyllium Hydrophilic Mucilloid (Metamucil) 1 packet PO DAILY PRN PRN PRN Reason: CONSTIPATION Ranolazine (Ranexa) 500 mg PO BID [facility] Last Admin: 01/04/18 08:10 Dose: 500 mg Sodium Chloride () 5 - 30 ml IV UD PRN PRN Reason: SALINE FLUSH Last Admin: 01/04/18 11:33 Dose: 10 ml - Past Medical History Past Medical History (Chronic Problems): Chronic Problems (Last Reviewed 05/24/17 @ 15:10 by Melania Mendoza) CAD (coronary artery disease) (Chronic) Presence of implantable cardioverter-defibrillator (ICD) (Chronic) Type 2 diabetes mellitus without complications (Chronic) DDD (degenerative disc disease) (Chronic) 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) History of coronary artery stent placement (Chronic ~06/08/16) SARA-RCA 06/15/2011, SARA-OM1 06/30/2011, SARA-LAD 08/20/2014, SARA-Prox- RCA 06/08/2016 Atherosclerosis of coronary artery of [place] heart without angina pectoris (Chronic) SARA-RCA 06/15/2011, SARA-OM1 06/30/2011, SARA-LAD 08/20/2014, SARA-Prox- RCA 06/08/2016 Paroxysmal atrial fibrillation (Chronic) Hypertension (Chronic) Hyperlipidemia (Chronic) Type II diabetes mellitus (Chronic) Hyperkalemia (Chronic) Chronic renal failure, stage 3 (moderate) (Chronic) STEMI (ST elevation myocardial infarction) (Chronic) Anemia of chronic renal failure, stage 3 (moderate) (Chronic) Obesity (BMI 30.0-34.9) (Chronic) Systolic CHF, acute on chronic (Chronic) Cardiomyopathy, ischemic (Chronic) - Past Surgical History Surgical History: - - s/p stents, AICD - Social History Smoking Status: Former smoker Alcohol: Occasional - beer Drugs: None - Family History Maternal Family History: Family History (Last Reviewed 05/24/17 @ 15:10 by Melania Mendoza) Brother Sudden cardiac History Items: No pertinent history Paternal Family History: Family History (Last Reviewed 05/24/17 @ 15:10 by Mleania Mendoza) Brother Sudden cardiac History Items: No pertinent history Sibling Family History: Family History (Last Reviewed 05/24/17 @ 15:10 by Melania Mendoza) Brother Sudden cardiac History Items: Heart Disease - sudden Review of Systems Constitutional: Denies: Chills, Fever, Weight Change HEENT: Denies: Head Aches, Sinus Congestion, Sinus Drainage Cardiovascular: Denies: Chest Pain, Palpitations Respiratory: Denies: Cough, Shortness of breath at rest, Sputum production Gastrointestinal: Denies: Abdominal Pain, Nausea, Vomiting Genitourinary: Denies: Dysuria Musculoskeletal: Denies: Joint Pain, Joint Tenderness Skin: Denies: Rash, Wounds Neurological: Denies: Numbness, Tingling, Focal weakness Psychiatric: Denies: Anxiety, Depression, Homicidal Ideations, Suicidal Ideations Hematologic/ Lymphatic: Denies: Easy Bruising, Easy Bleeding - Physical Exam General: Alert, Oriented x3, Cooperative HEENT: Atraumatic, PERRLA, EOMI, Normocephalic Neck: Supple, No JVD, Negative Carotid Bruits Lungs: Clear to auscultation, Normal air movement Cardiovascular: Regular rate, No murmurs Abdomen: Bowel Sounds Present, Soft, Non Tender Extremities: No edema, Capillary Refill Less than 3 Seconds Skin: No rashes, No breakdown Musculoskeletal: No Tenderness to Palpation of Joints or Extremities Neurological: Cranial nerves II-XII grossly intact Psych/Mental Status: Normal Affect, Appropriate Vital Signs Temp Pulse Resp BP Pulse Ox 98.3 F 71 16 116/67 94 01/04/18 14:37 01/04/18 14:58 01/04/18 14:37 01/04/18 14:37 01/04/18 14:37 Oxygen Flow Rate (L/min) 2 Oxygen Delivery Method Room Air Weight: 98.5 kg Body Mass Index (BMI) 32.1 Finger Stick Blood Glucose 213 Intake and Output for Last 24 Hours 01/02/18 01/03/18 01/04/18 23:59 23:59 23:59 Intake Total 320 / 320 360 / 360 Output Total 250 / 250 725 / 725 Balance 70 / 70 -365 / -365 Laboratory Tests Past 24 Hrs 01/04/18 01/04/18 04:15 04:15 WBC 9.8 RBC 4.22 L Hgb 12.3 L Hct 37.8 L MCV 89.6 MCH 29.1 MCHC 32.5 RDW 14.3 RDW Differential 45.9 H Plt Count 198 MPV 9.3 Immature Gran % (Auto) 0.700 Neut % (Auto) 81.1 H Lymph % (Auto) 8.9 L [place] % (Auto) 8.1 Eos % (Auto) 0.9 Baso % (Auto) 0.3 Absolute Neuts (auto) 8.0 H Absolute Lymphs (auto) 0.88 Total Counted Not Reportable Sodium 141 Potassium 3.9 Chloride 104 Carbon Dioxide 28.0 Anion Gap 9 BUN 41 H Creatinine 2.74 H Estim Creat Clear Calc 26.88 Est GFR (MDRD) Af Amer 30 L Est GFR (MDRD) Non-Af 25 L BUN/Creatinine Ratio 15.0 Glucose 117 H Calcium 8.0 L Triglycerides 174 Cholesterol 131 LDL Cholesterol 60 VLDL Cholesterol 35 HDL Cholesterol 36 L POC Glucose 01/04/18 01/04/18 01/04/18 16:03 11:28 03:59 POC Glucose 206 H 172 H 114 H 01/04/18 01/04/18 01/04/18 02:05 01:37 01:14 POC Glucose 137 H 75 51 L 01/03/18 01/03/18 21:22 17:01 POC Glucose 122 H 134 H Assessment/Plan All Active Problems (Last Reviewed 05/24/17 @ 15:10 by Melania Mendoza) Esophagitis determined by endoscopy (Acute ~05/06/17) Cardiogenic shock (Resolved ~06/08/16) Hypertensive emergency (Resolved) Abdominal pain (Resolved) Acute pulmonary edema (Resolved) Acute respiratory failure (Resolved) Atrial fibrillation with RVR (Resolved) Chest pain (Resolved) Elevated troponin (Resolved) Metabolic acidosis (Resolved) Shortness of breath (Resolved) YOMI CKD stage 3. Baseline creatinine as of last month is around 1.8 to 2.0. creatinine slowly worsening in setting of diuresis. CT abdomen from May did not show any hydronephrosis. there was however some perinephric stranding. UA showed proteinuria. can send for quantification as outpatient creatinine increase is likely CRS. HTN. BP was fairly high initially. now better with diuresis. Renal A dopplers negative. CHF. clinically better. change lasix to 60 mg BID PO for now will arrange follow up as outpatient after dc d/w Dr Navarro
[2018-01-04] MEDS: Furosemide 20 MG Tablet 60 MG PO (17:58)
[2018-01-04] MEDS: Pravastatin 40 MG Tablet PO (21:19)
[2018-01-04 22:11] LABS: Bedside Glucose 212 mg/dL (70-110)
[2018-01-05] VITALS (15 sets, daily range): BP systolic 111–194; BP diastolic 62–76; PULSE 53–79; RESP 16–22; TEMP 36.3–37.1; O2SAT 87–96
[2018-01-05 06:56] LABS: Bedside Glucose 75 mg/dL (70-110)
[2018-01-05] MEDS: Amiodarone 200 MG Tablet PO (08:47)
[2018-01-05] MEDS: Aspirin 81 MG TAB.CHEW PO (08:47)
[2018-01-05] MEDS: APIXABAN 2.5 MG TABLET PO (08:48)
[2018-01-05] MEDS: Losartan Potassium 100 MG Tablet PO (08:48)
[2018-01-05] MEDS: Pantoprazole Sodium 40 MG Tablet PO ×2 (08:49→21:29)
[2018-01-05] MEDS: Ranolazine 500 MG Tablet PO ×2 (08:49→21:29)
[2018-01-05] MEDS: Clopidogrel Bisulfate 75 MG Tablet PO (08:49)
[2018-01-05] MEDS: Furosemide 20 MG Tablet 60 MG PO (08:49)
[2018-01-05] MEDS: Carvedilol 25 MG Tablet PO ×2 (08:49→21:28)
--- NOTE | 2018-01-05 10:45 | CASEMGMT ---
According to [facility] website, the following are in-network tertiary facilities: [facility], [facility], [facility], and . Willian SHEPARD CM
--- NOTE | 2018-01-05 10:47 | PCM.PN.HOSP ---
Subjective: Patient was seen and examined. He felt well. Was kept n.p.o. for possible cardiac cath. Cardiac cath was postponed on account of patient still being on Eliquis. Patient was going to be discharged so he could follow-up in the outpatient for the cardiac cath when upon walking a few feet to the bathroom he felt suddenly short of breath, oxygen saturation was in the 80s, started on oxygen with improvement. Discharge was canceled. Objective: Physical exam: General: Alert, Oriented x3, Cooperative, No apparent distress HEENT: Atraumatic, PERRLA, EOMI, Normocephalic Oral: Moist Mucosa - On room air, appears comfortable Neck: Supple, No JVD, Negative Carotid Bruits Lungs: Clear to auscultation, Normal air movement Cardiovascular: Regular rate, Regular Rhythm, Normal S1, Normal S2, No murmurs Abdomen: Bowel Sounds Present, Soft, Non Tender, Non-Distended, No Hepato-splenomegaly Extremities: No edema Skin: No rashes, No breakdown Musculoskeletal: No Tenderness to Palpation of Joints or Extremities Lymphatic: No Cervical, Supraclavicular, or Inguinal Adenopathy Neurological: Cranial nerves II-XII grossly intact, Neuro grossly intact Psych/Mental Status: Normal Affect, Appropriate Vitals/I&O's: Vital Signs Temp Pulse Resp BP Pulse Ox 98.1 F 54 L 16 154/76 H 95 01/05/18 06:42 01/05/18 06:42 01/05/18 06:42 01/05/18 06:42 01/05/18 07:50 Oxygen Flow Rate (L/min) 2 Oxygen Delivery Method Room Air Weight: 97.4 kg Body Mass Index (BMI) 32.1 Finger Stick Blood Glucose 213 Intake and Output for Last 24 Hours 01/03/18 01/04/18 01/05/18 23:59 23:59 23:59 Intake Total 320 / 320 600 / 600 240 / 240 Output Total 250 / 250 725 / 725 Balance 70 / 70 -125 / -125 240 / 240 Laboratory Results 01/04/18 11:28: POC Glucose 172 H 01/04/18 16:03: POC Glucose 206 H 01/04/18 21:16: POC Glucose 212 H 01/05/18 06:47: POC Glucose 75 Current Medications Acetaminophen (Tylenol) 650 mg PO Q6H PRN PRN PRN Reason: Mild Pain (1-3)/Temp > 100.7 F Amiodarone HCl (Cordarone) 200 mg PO DAILY [facility] Last Admin: 01/05/18 08:47 Dose: 200 mg Apixaban (Eliquis) 2.5 mg PO BID [facility] Last Admin: 01/05/18 08:48 Dose: 2.5 mg Aspirin (Aspirin, Baby) 81 mg PO DAILY@0800 [facility] Last Admin: 01/05/18 08:47 Dose: 81 mg Carvedilol (Coreg) 25 mg PO BID [facility] Last Admin: 01/05/18 08:49 Dose: 25 mg Clopidogrel Bisulfate (Plavix) 75 mg PO DAILY [facility] Last Admin: 01/05/18 08:49 Dose: 75 mg Dextrose (D50w Syringe) 0 gm IV X1 PRN; Protocol PRN Reason: Hypoglycemia Last Admin: 01/04/18 01:41 Dose: 12.5 gm Diphenhydramine HCl (Benadryl) 50 mg PO X1 ONE Stop: 01/05/18 10:33 Furosemide (Lasix) 60 mg PO BID@1000,1800 [facility] Last Admin: 01/05/18 08:49 Dose: 60 mg Glucagon () 1 mg IM .X1 PRN PRN Reason: Hypoglycemia Hydralazine HCl (Apresoline) 25 mg PO TID [facility] Sodium Chloride () 250 mls @ 15 mls/hr IV .[id number] PRN PRN Reason: SALINE FLUSH Sodium Chloride () 1,000 mls @ 0 mls/hr IV .Q0M [facility] Insulin Human Lispro (Humalog Devipen (Bkc)) 0 unit SQ ACHS [facility]; Protocol Last Admin: 01/05/18 06:59 Dose: Not Given Isosorbide Mononitrate (Imdur) 120 mg PO BID [facility] Last Admin: 01/05/18 08:49 Dose: 120 mg Losartan Potassium (Cozaar) 100 mg PO DAILY [facility] Last Admin: 01/05/18 08:48 Dose: 100 mg Magnesium Hydroxide (Milk Of Magnesia) 30 ml PO DAILY PRN PRN Reason: Constipation Nitroglycerin (Nitrostat) 0.4 mg SUBLINGUAL Q5M PRN PRN Reason: CARDIAC/CHEST PAIN Pantoprazole Sodium (Protonix) 40 mg PO BID [facility] Last Admin: 01/05/18 08:49 Dose: 40 mg Pravastatin Sodium (Pravachol) 40 mg PO QHS [facility] Last Admin: 01/04/18 21:19 Dose: 40 mg Psyllium Hydrophilic Mucilloid (Metamucil) 1 packet PO DAILY PRN PRN PRN Reason: CONSTIPATION Ranolazine (Ranexa) 500 mg PO BID [facility] Last Admin: 01/05/18 08:49 Dose: 500 mg Sodium Chloride () 5 - 30 ml IV UD PRN PRN Reason: SALINE FLUSH Last Admin: 01/04/18 11:33 Dose: 10 ml Medical Necessity - Tobacco Use Smoking Status: Former smoker Tobacco Use: Non-smoker Assessment/Plan All Active Problems (Last Reviewed 05/24/17 @ 15:10 by Melania Mendoza) Esophagitis determined by endoscopy (Acute ~05/06/17) Cardiogenic shock (Resolved ~06/08/16) Hypertensive emergency (Resolved) Abdominal pain (Resolved) Acute pulmonary edema (Resolved) Acute respiratory failure (Resolved) Atrial fibrillation with RVR (Resolved) Chest pain (Resolved) Elevated troponin (Resolved) Metabolic acidosis (Resolved) Shortness of breath (Resolved) 67 year old M with past medical history of chronic systolic CHF, ischemic cardiomyopathy, EF 25%, history of CAD status post stent, pulmonary hypertension, hypertension, paroxysmal atrial fibrillation, CKD who came to the emergency department with 1 day history of wheezing and shortness of breath. 1. Acute hypoxic respiratory failure secondary to acute CHF exacerbation, present on admission, worse with ambulation, will continue on oxygen and wean off if able 2. Acute on chronic systolic CHF, EF 25%, unclear etiology for current presentation, improved, started on Lasix 60 mg p.o. twice daily, will give an extra Lasix 20 mg IV x1 3. Elevated troponins, underlining history of ischemic cardiomyopathy, follows Dr. Butler in the outpatient, plan is for cardiac cath on Ranexa, apixaban, carvedilol, Plavix, Imdur, losartan, pravastatin 4. Leukocytosis, reactive, resolved 5. YOMI on CKD stage III/IV, secondary to diuretic use, improving, nephrology consulted 6. Type II DM, on insulin, blood sugars are fairly controlled with hypoglycemia whilst n.p.o., will continue with Accu-Cheks with home insulin and insulin sliding scale 7. Hypertension, slightly hypotensive, will resume hydralazine at 25 mg p.o. 3 times daily 8. Paroxysmal atrial fibrillation, rate controlled, on amiodarone, off apixaban for now 9. GERD, history of esophagitis, on PPI 10. DVT prophylaxis-was on apixaban, off for now, would consider starting heparin subcu if patient will be off apixaban for a long time Code Visit Inpatient E&M: [id number] [facility] Hosp L3
--- NOTE | 2018-01-05 11:04 | PCM.PN.CARD ---
Subjectve: Patient doing much better today. Able to lay down flat without any difficulty. No lower extremity edema. Pulmonary edema in his lungs appears to have cleared. No chest pain symptoms. The patient denies any dietary indiscretion or medical noncompliance prior to his CHF exacerbation. We were going to proceed with a repeat left and right heart catheterization today however the patient has been on Eliquis for some time and would need to hold that for at least 3 days time. Objective: Vital Signs Temp Pulse Resp BP Pulse Ox 98.1 F 54 L 16 154/76 H 95 01/05/18 06:42 01/05/18 06:42 01/05/18 06:42 01/05/18 06:42 01/05/18 07:50 Oxygen Flow Rate (L/min) 2 Oxygen Delivery Method Room Air Weight: 214 lb 11.684 oz Body Mass Index (BMI) 32.1 Finger Stick Blood Glucose 213 Intake and Output for Last 24 Hours 01/03/18 01/04/18 01/05/18 23:59 23:59 23:59 Intake Total 320 / 320 600 / 600 240 / 240 Output Total 250 / 250 725 / 725 Balance 70 / 70 -125 / -125 240 / 240 General: Awake, Alert, Oriented x 3 HEENT: PERRL, EOMI, Sclera Non Icteric Neck: Supple, Good ROM, No Lymph Node Enlargement Lungs: Clear to auscultation Cardiovascular: Regular Rhythm, Normal S1, Normal S2, No Murmurs, No Rubs, No Gallops Vascular: No Carotid Bruits, Normal Femoral Pulses, Normal Radial Pulses, Normal Dorsalis Pedal Pulse, Normal Posterior Tibial Pulses Abdomen: Bowel Sounds Present, Soft, Non Tender, No HSM, No Organomegaly Extremities: No Cyanosis, No Clubbing, No edema Neurological: No Focal Motor or Sensory Deficit Rhythm: EKG: ECHO: Stress Test: Cardiac Cath: PCI: CT Surgery: Holter monitor: EPS: PPM: CXR: Chest CT Scan: Medical Necessity - Tobacco Use Smoking Status: Former smoker Tobacco Use: Non-smoker Assessment/Plan #1. Ischemic cardiomyopathy: Given the patient's recidivism back to the hospital for CHF exacerbation and for reportedly medical and dietary compliance at home, I recommended he undergo a repeat left and right heart catheterization. I do not believe he needs to stay in the hospital to allow his Eliquis to wear off. I believe we can discharge the patient to home hold his Eliquis for the next 3 days and proceed with left and right heart catheterization this upcoming Wednesday as an outpatient. I believe a good component of the patient's problem is uncontrolled hypertension, severe LV dysfunction, and chronic renal insufficiency with a creatinine around 3.0. I have asked renal to consult on the patient to determine whether he would benefit from early dialysis for fluid management. This may be necessary if the patient has no coronary arteries that require revascularization. In the meantime I recommend increasing his Lasix to 80 mg p.o. twice daily, continuing his Imdur. I agree with increasing his Coreg to 25 mill grams p.o. twice daily for antihypertensive control with alpha blockade. However, I would recommend increasing his hydralazine to 50 mg 3 times daily at least, as he was on 75 mg 3 times daily at home and his blood pressure was not optimally controlled. In addition I would recommend metolazone 2.5 mg once a week and perhaps up to 3 times per week every Wednesday and Wednesday, to assist with fluid management given his chronic renal insufficiency. 2. Coronary artery disease: Continue aspirin and Plavix therapy. 3. Atrial fibrillation: We will hold his Eliquis for 3 days prior to his catheterization. Continue amiodarone. He is currently in normal sinus rhythm. 4. Patient may be discharged home if blood pressure and fluid management are optimized. Plan for left her catheterization either this Wednesday or early in the week. Thank you very much for the opportunity to participate in the cardiac care of your patient. Code Visit Inpatient E&M: 56395 Subs Hosp L2
--- NOTE | 2018-01-05 11:16 | DCINST_ITS ---
- Discharge Diagnoses Reason(s) for Visit for Discharge Instructions: CHF, chest pain You will use the following diet at home:: Calorie/Carbohydrate Controlled (specify 1200, 1400, etc), Cardiac Your food should be the consistency of: Regular Your liquids should be the consistency of: Regular/Thin Discharge Activity: Return to Normal Activity Allergies/Adverse Reactions: Allergies atorvastatin calcium [From Lipitor] Allergy (Verified 01/03/18 09:13) Unknown diltiazem Allergy (Verified 01/03/18 09:13) Angioedema Medications to take at Discharge Aspirin [Aspirin, Baby] 81 mg PO DAILY@0800 12/28/14 Pravastatin [Pravachol] 40 mg PO QHS 12/28/14 Amiodarone HCl 200 mg PO DAILY 04/09/16 clopidogrel 75 mg tablet 75 mg PO DAILY #30 tab 06/23/17 Apixaban [Eliquis] 2.5 mg PO BID 11/25/17 Losartan Potassium 100 mg PO QDAY 11/25/17 Pantoprazole Sodium [Protonix] 40 mg PO BID 11/25/17 Isosorbide Mononitrate [Imdur] 120 mg PO BID #60 tab 11/28/17 Novolin 70-30 100 Unit/ml Vial 27 units SQ BID #0 11/28/17 Furosemide [Lasix] 60 mg PO BID@1000,1800 #60 tablet 01/05/18 Nitroglycerin [Nitrostat] 0.4 mg SUBLINGUAL Q5M PRN #10 tablet 01/05/18 Ranolazine [Ranexa] 500 mg PO BID #60 tablet 01/05/18 hydrALAZINE [Apresoline] 25 mg PO TID #90 tablet 01/05/18 The following prescriptions were given: Furosemide [Lasix] 60 mg PO BID@1000,1800 #60 tablet Nitroglycerin [Nitrostat] 0.4 mg SUBLINGUAL Q5M PRN #10 tablet PRN Reason: Cardiac/Chest Pain Ranolazine [Ranexa] 500 mg PO BID #60 tablet hydrALAZINE [Apresoline] 25 mg PO TID #90 tablet Orders to be completed after discharge: Basic Metabolic Profile (BMP) Time Frame: 3 Days, Location: Laboratory Primary Care Physician: Jennifer Spicer DO [Primary Care Provider] - Please follow up with your Primary Care Physician in: within 2 weeks Test Results: Test results from this visit will be discussed in further detail at your follow- up appointment, if applicable. Proposed Discharge Date: 01/05/18
--- NOTE | 2018-01-05 11:16 | PCM.DC.SUM ---
Discharge Date and Diagnosis Date of Admission: 01/03/18 - Secondary Discharge Diagnosis Chronic Problems (Last Reviewed 05/24/17 @ 15:10 by Melania Mendoza) CAD (coronary artery disease) (Chronic) Presence of implantable cardioverter-defibrillator (ICD) (Chronic) Type 2 diabetes mellitus without complications (Chronic) DDD (degenerative disc disease) (Chronic) 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) History of coronary artery stent placement (Chronic ~06/08/16) SARA-RCA 06/15/2011, SARA-OM1 06/30/2011, SARA-LAD 08/20/2014, SARA-Prox- RCA 06/08/2016 Atherosclerosis of coronary artery of [place] heart without angina pectoris (Chronic) SARA-RCA 06/15/2011, SARA-OM1 06/30/2011, SARA-LAD 08/20/2014, SARA-Prox- RCA 06/08/2016 Paroxysmal atrial fibrillation (Chronic) Hypertension (Chronic) Hyperlipidemia (Chronic) Type II diabetes mellitus (Chronic) Hyperkalemia (Chronic) Chronic renal failure, stage 3 (moderate) (Chronic) STEMI (ST elevation myocardial infarction) (Chronic) Anemia of chronic renal failure, stage 3 (moderate) (Chronic) Obesity (BMI 30.0-34.9) (Chronic) Systolic CHF, acute on chronic (Chronic) Cardiomyopathy, ischemic (Chronic) Hospital Course and Treatment Operations: None Summary of Care Provided: The patient is a 67 year old M [] Discharge Activity: Return to Normal Activity Home Medications: Medications to take at Discharge Aspirin [Aspirin, Baby] 81 mg PO DAILY@0800 12/28/14 Pravastatin [Pravachol] 40 mg PO QHS 12/28/14 Amiodarone HCl 200 mg PO DAILY 04/09/16 clopidogrel 75 mg tablet 75 mg PO DAILY #30 tab 06/23/17 Apixaban [Eliquis] 2.5 mg PO BID 11/25/17 Losartan Potassium 100 mg PO QDAY 11/25/17 Pantoprazole Sodium [Protonix] 40 mg PO BID 11/25/17 Isosorbide Mononitrate [Imdur] 120 mg PO BID #60 tab 11/28/17 Novolin 70-30 100 Unit/ml Vial 27 units SQ BID #0 11/28/17 Furosemide [Lasix] 60 mg PO BID@1000,1800 #60 tablet 01/05/18 Nitroglycerin [Nitrostat] 0.4 mg SUBLINGUAL Q5M PRN #10 tablet 01/05/18 Ranolazine [Ranexa] 500 mg PO BID #60 tablet 01/05/18 hydrALAZINE [Apresoline] 25 mg PO TID #90 tablet 01/05/18 Following Prescrptions Were Given to Patient: Furosemide [Lasix] 60 mg PO BID@1000,1800 #60 tablet Nitroglycerin [Nitrostat] 0.4 mg SUBLINGUAL Q5M PRN #10 tablet PRN Reason: Cardiac/Chest Pain Ranolazine [Ranexa] 500 mg PO BID #60 tablet hydrALAZINE [Apresoline] 25 mg PO TID #90 tablet Other Amb Orders: Basic Metabolic Profile (BMP) Time Frame: 3 Days, Location: Laboratory Primary Care Physician: Jennifer Spicer DO [Primary Care Provider] - Please follow up with your Primary Care Physician in: within 2 weeks Medical Necessity - Tobacco Use Smoking Status: Former smoker Tobacco Use: Non-smoker
[2018-01-05 11:29] LABS: Albumin, Serum 3.7 g/dL (3.2-5.0); BUN 38 mg/dL (7-18); BUN/Creat Ratio 15.9 RATIO (10-20); Calcium,Total 8.6 mg/dL (8.5-10.1); Chloride 99 mmol/L (98-107); Creatinine, Serum 2.39 mg/dL (0.70-1.30); EST Glomerular Filtration Rate 29 mL/min (>60); Est Glom Filt Rate - Afr Amer 35 mL/min (>60); Estimated Creatinine Clearance 30.81 ml/min; Glucose 230 mg/dL (74-106); Phosphorus 3.6 mg/dL (2.5-4.9); Potassium 4.6 mmol/L (3.5-5.1); Sodium Level 134 mmol/L (136-145)
[2018-01-05 11:40] LABS: Bedside Glucose 226 mg/dL (70-110)
[2018-01-05] MEDS: Furosemide 40 MG/4 ML Vial IV (12:56)
[2018-01-05] MEDS: Insulin Human 75/25 Kwickpen 25 UNIT SC ×2 (12:59→21:33)
[2018-01-05] MEDS: hydrALAZINE 50 MG Tablet PO ×2 (13:00→21:27)
[2018-01-05] MEDS: 0.9% NaCl Peripheral Flush Adult/Peds IV (13:01)
[2018-01-05 17:00] LABS: Bedside Glucose 153 mg/dL (70-110)
--- NOTE | 2018-01-05 17:17 | PCM.PN.REN ---
Subjective: no new complaints - Physical Exam General: Alert, Oriented x3, Cooperative HEENT: Atraumatic, PERRLA, EOMI, Normocephalic Neck: Supple, No JVD, Negative Carotid Bruits Lungs: Clear to auscultation, Normal air movement Cardiovascular: Regular rate, No murmurs Abdomen: Bowel Sounds Present, Soft, Non Tender Extremities: No edema, Capillary Refill Less than 3 Seconds Skin: No rashes, No breakdown Musculoskeletal: No Tenderness to Palpation of Joints or Extremities Neurological: Cranial nerves II-XII grossly intact Psych/Mental Status: Normal Affect, Appropriate Vital Signs Temp Pulse Resp BP Pulse Ox 98.7 F 72 20 H 146/72 H 95 01/05/18 14:30 01/05/18 14:59 01/05/18 14:30 01/05/18 14:30 01/05/18 14:30 Oxygen Flow Rate (L/min) 2 Oxygen Delivery Method Nasal Cannula Weight: 97.4 kg Body Mass Index (BMI) 32.1 Finger Stick Blood Glucose 213 Intake and Output for Last 24 Hours 01/03/18 01/04/18 01/05/18 23:59 23:59 23:59 Intake Total 320 / 320 600 / 600 660 / 660 Output Total 250 / 250 725 / 725 Balance 70 / 70 -125 / -125 660 / 660 Laboratory Tests Past 24 Hrs 01/05/18 11:00 Sodium 134 L Potassium 4.6 Chloride 99 Carbon Dioxide 30.0 BUN 38 H Creatinine 2.39 H Estim Creat Clear Calc 30.81 Est GFR (MDRD) Af Amer 35 L Est GFR (MDRD) Non-Af 29 L BUN/Creatinine Ratio 15.9 Glucose 230 H Calcium 8.6 Phosphorus 3.6 Albumin 3.7 POC Glucose 01/05/18 01/05/18 01/05/18 16:40 11:24 06:47 POC Glucose 153 H 226 H 75 01/04/18 21:16 POC Glucose 212 H Medical Necessity - Tobacco Use Smoking Status: Former smoker Tobacco Use: Non-smoker Assessment/Plan All Active Problems (Last Reviewed 05/24/17 @ 15:10 by Melania Mendoza) Esophagitis determined by endoscopy (Acute ~05/06/17) Cardiogenic shock (Resolved ~06/08/16) Hypertensive emergency (Resolved) Abdominal pain (Resolved) Acute pulmonary edema (Resolved) Acute respiratory failure (Resolved) Atrial fibrillation with RVR (Resolved) Chest pain (Resolved) Elevated troponin (Resolved) Metabolic acidosis (Resolved) Shortness of breath (Resolved) YOMI CKD stage 3. Baseline creatinine as of last month is around 1.8 to 2.0. creatinine slowly worsening in setting of diuresis. CT abdomen from May did not show any hydronephrosis. there was however some perinephric stranding. UA showed proteinuria. can send for quantification as outpatient creatinine increase is likely CRS. HTN. BP was fairly high initially. now better with diuresis. Renal A dopplers negative. CHF. clinically better. continue lasix to 60 mg BID PO for now will arrange follow up as outpatient after dc
[2018-01-05] MEDS: Furosemide 80 MG Tablet PO (17:46)
[2018-01-05] MEDS: Insulin Lispro 100 UNIT/ML INSULN.PEN SQ (21:27)
[2018-01-05] MEDS: Pravastatin 40 MG Tablet PO (21:28)
[2018-01-05 22:31] LABS: Bedside Glucose 208 mg/dL (70-110)
[2018-01-06] VITALS (15 sets, daily range): BP systolic 113–172; BP diastolic 59–98; PULSE 52–58; RESP 16–18; TEMP 36.6–36.9; O2SAT 91–95
[2018-01-06] MEDS: hydrALAZINE 50 MG Tablet PO (06:05)
[2018-01-06 07:01] LABS: Bedside Glucose 132 mg/dL (70-110)
--- NOTE | 2018-01-06 07:56 | PCM.PN.HOSP ---
Subjective: Patient evening prior with malaise, lightheadedness with tachycardia and dizziness prompting decision to have patient remain inpatient and pursue cardiac catheterization while inpatient as opposed to discharge with outpatient set up. Patient denies any further episodes since the evening prior and notes feeling well. He denies any chest discomfort or recurrent exertional dyspnea. Patient remains amenable to cardiac catheterization in a.m. Patient denies fevers, chills, nausea, emesis, abdominal pain, chest pain or dyspnea. Objective: Physical Examination: General: awake, alert, oriented x 3 and cooperative, seated upright in the bedside chair, in no apparent distress. Skin: normal color, turgor, no icterus, cyanosis. HEENT: AT/NC, EOMI, PERRLA, MMM. Lungs: Diminished breath sounds bilaterally, greater bilateral bases, moderate effort, no rales, ronchi or wheezing. Heart: Regular rate and rhythm; no gallop, rub audible. Abdomen: soft, NTTP, ND, normal BS, no HSM. Extremities: no cyanosis, clubbing, or edema. Neurological: patient awake, alert, oriented x 3; cognitive function intact; pupils equally reactive to light and accomodation; cranial nerves II-XII grossly normal, moving all 4 extremities, no focal deficits, strength proved, mildly to moderately globally decreased. Psychiatric: affect appears normal, no acute evidence of depressive or anxiety feelings. Vitals/I&O's: Vital Signs Temp Pulse Resp BP Pulse Ox 98.2 F 56 L 16 131/72 H 93 01/06/18 06:01 01/06/18 07:31 01/06/18 06:01 01/06/18 06:01 01/06/18 06:01 Oxygen Flow Rate (L/min) 2 Oxygen Delivery Method Room Air Weight: 214 lb 4.629 oz Body Mass Index (BMI) 32.1 Finger Stick Blood Glucose 213 Intake and Output for Last 24 Hours 01/04/18 01/05/18 01/06/18 23:59 23:59 23:59 Intake Total 600 / 600 900 / 900 600 / 600 Output Total 725 / 725 Balance -125 / -125 900 / 900 600 / 600 Laboratory Results 01/05/18 11:00: Sodium 134 L, Potassium 4.6, Chloride 99, Carbon Dioxide 30.0, BUN 38 H, Creatinine 2.39 H, Estim Creat Clear Calc 30.81, Est GFR (MDRD) Af Amer 35 L, Est GFR (MDRD) Non-Af 29 L, BUN/Creatinine Ratio 15.9, Glucose 230 H, Calcium 8.6, Phosphorus 3.6, Albumin 3.7 01/05/18 11:24: POC Glucose 226 H 01/05/18 16:40: POC Glucose 153 H 01/05/18 21:25: POC Glucose 208 H 01/06/18 06:52: POC Glucose 132 H Current Medications Acetaminophen (Tylenol) 650 mg PO Q6H PRN PRN PRN Reason: Mild Pain (1-3)/Temp > 100.7 F Amiodarone HCl (Cordarone) 200 mg PO DAILY [facility] Last Admin: 01/05/18 08:47 Dose: 200 mg Aspirin (Aspirin, Baby) 81 mg PO DAILY@0800 [facility] Last Admin: 01/05/18 08:47 Dose: 81 mg Carvedilol (Coreg) 25 mg PO BID [facility] Last Admin: 01/05/18 21:28 Dose: 25 mg Clopidogrel Bisulfate (Plavix) 75 mg PO DAILY [facility] Last Admin: 01/05/18 08:49 Dose: 75 mg Dextrose (D50w Syringe) 0 gm IV X1 PRN; Protocol PRN Reason: Hypoglycemia Last Admin: 01/04/18 01:41 Dose: 12.5 gm Diphenhydramine HCl (Benadryl) 50 mg PO X1 ONE Stop: 01/07/18 07:01 Furosemide (Lasix) 80 mg PO BID@1000,1800 [facility] Last Admin: 01/05/18 17:46 Dose: 80 mg Glucagon () 1 mg IM .X1 PRN PRN Reason: Hypoglycemia Hydralazine HCl (Apresoline) 50 mg PO TID [facility] Last Admin: 01/06/18 06:05 Dose: 50 mg Sodium Chloride () 250 mls @ 15 mls/hr IV .[id number] PRN PRN Reason: SALINE FLUSH Sodium Chloride () 1,000 mls @ 0 mls/hr IV .Q0M [facility] Insulin Human Lispro (Humalog Kwikpen (Bkc)) 0 unit SQ ACHS [facility]; Protocol Last Admin: 01/06/18 07:23 Dose: Not Given Isosorbide Mononitrate (Imdur) 120 mg PO BID [facility] Last Admin: 01/05/18 21:27 Dose: 120 mg Losartan Potassium (Cozaar) 100 mg PO DAILY [facility] Last Admin: 01/05/18 08:48 Dose: 100 mg Magnesium Hydroxide (Milk Of Magnesia) 30 ml PO DAILY PRN PRN Reason: Constipation Nitroglycerin (Nitrostat) 0.4 mg SUBLINGUAL Q5M PRN PRN Reason: CARDIAC/CHEST PAIN Pantoprazole Sodium (Protonix) 40 mg PO BID [facility] Last Admin: 01/05/18 21:29 Dose: 40 mg Pravastatin Sodium (Pravachol) 40 mg PO QHS [facility] Last Admin: 01/05/18 21:28 Dose: 40 mg Psyllium Hydrophilic Mucilloid (Metamucil) 1 packet PO DAILY PRN PRN PRN Reason: CONSTIPATION Ranolazine (Ranexa) 500 mg PO BID [facility] Last Admin: 01/05/18 21:29 Dose: 500 mg Sodium Chloride () 5 - 30 ml IV UD PRN PRN Reason: SALINE FLUSH Last Admin: 01/05/18 13:01 Dose: 10 ml Medical Necessity - Tobacco Use Smoking Status: Former smoker Tobacco Use: Non-smoker Assessment/Plan All Active Problems (Last Reviewed 05/24/17 @ 15:10 by Melania Mendoza) Esophagitis determined by endoscopy (Acute ~05/06/17) Cardiogenic shock (Resolved ~06/08/16) Hypertensive emergency (Resolved) Abdominal pain (Resolved) Acute pulmonary edema (Resolved) Acute respiratory failure (Resolved) Atrial fibrillation with RVR (Resolved) Chest pain (Resolved) Elevated troponin (Resolved) Metabolic acidosis (Resolved) Shortness of breath (Resolved) The patient is a 67 y/o M w/ PMHx: Diabetes mellitus type II, HTN, HLD, CAD s/p PCI, CKD stage III, AOCD, Chronic atrial fibrillation, History of Mural Thrombus on chronic anticoagulation, Chronic Systolic CHF/Ischemic Cardiomyopathy w/ progressively worsening x 24 hours w/ acute hypoxic respiratory failure secondary to acute on chronic CHF exacerbation. (1) Acute Hypoxic Respiratory Failure secondary to Acute Decompensated Systolic CHF, Ischemic Cardiomyopathy: Placed on BIPAP in the ED upon admission secondary to severity of presentation. CXR obtained in the ED w/ evidence congestion. Patient administered IV lasix in the ED, admitted to PCU, maintained on cardiac telemetry, cardiac enzyme series w/ 0.046 upon admission-->0.216-->0.353, mag normal, treated w/ initially IV lasix diuresis w/ oral transition, monitor I/Os, maintain on intake restriction, continue medical therapy w/ asa, plavix, statin, BB, ARB, ranexa, hydralazine. Most recent ECHO noted 05/22/17 w/ normal LV size, moderately severe segmental systolic dysfunction, EF 25%, mild TBI. Cardiology consulted, following. Planned Cardiac catheterization on 01/07/18 given need for Eliquis hold. (2) Acute kidney injury on CKD stage III: Admission BUN/Cr 32/2.64, prior baseline creatinine noted to be 1.8-2.0. CT A/P from earlier this year without any hydronephrosis but noted stranding per renal report w/ UA notable for proteinuria w/ planned quantification outpatient, creatinine increase w/ lasix usage acutely and per nephrology likely secondary to CRS. Renal artery dopplers unremarkable. Renal recommendations to maintain on lasix 60 mg BID, placed on 80 mg BID per Cardiology. 01/06/18 BUN/Cr 38/2.39. (3) Indeterminate cardiac enzyme w/ CAD Hx: Hx PCI (SARA-RCA 06/15/2011, SARA-OM1 06/30/2011, SARA-LAD 08/20/2014, SAAR-Prox- RCA 06/08/2016), admission EKG without acute evidence of ischemia, in setting of acute CHF exacerbation. Trop 0.046 upon admission-->0.216-->0.353, mag normal level, maintained on telemetry (4) Lactic Acidosis: Admission LA 2.8-->improved 2.1, likely secondary to acute presentation. (5) Hypertension: Transitioned from IV lasix to oral regimen, maintain on coreg, ARB, isosorbide, hydralazine w/ changes per Cardiology discretion. (6) Hyperlipidemia: Maintain on home statin regimen. FLP w/ TG 174, TChol 131, LDL 60, VLDL 35, HDL 36. (7) Diabetes mellitus type II: Hold oral home regimen, continue home insulin regimen, ADA diet, accu checks w/ ISS. (8) PAF: Rate controlled, maintained on amiodarone, holding eliquis given planned cardiac catheterization on 01/07/18. (9) AOCD: Admission Hgb 15.5, IV lasix administered, repeat Hgb 01/04/18 12.3, stable baseline. (10) History of Mural Thrombus on chronic anticoagulation: Holding eliquis for planned cardiac catheterization. (11) DVT Prophylaxis: SCDs, holding eliquis for planned cardiac catheterization. (12) CODE status: DNR-CCA, no intubation. Code Visit Inpatient E&M: 30957 Subs Hosp L3
--- NOTE | 2018-01-06 08:12 | PN_ITS ---
Subjective: Patient evening prior with malaise, lightheadedness with tachycardia and dizziness prompting decision to have patient remain inpatient and pursue cardiac catheterization while inpatient as opposed to discharge with outpatient set up. Patient denies any further episodes since the evening prior and notes feeling well. He denies any chest discomfort or recurrent exertional dyspnea. Patient remains amenable to cardiac catheterization in a.m. Patient denies fevers, chills, nausea, emesis, abdominal pain, chest pain or dyspnea. Objective: Physical Examination: General: awake, alert, oriented x 3 and cooperative, seated upright in the bedside chair, in no apparent distress. Skin: normal color, turgor, no icterus, cyanosis. HEENT: AT/NC, EOMI, PERRLA, MMM. Lungs: Diminished breath sounds bilaterally, greater bilateral bases, moderate effort, no rales, ronchi or wheezing. Heart: Regular rate and rhythm; no gallop, rub audible. Abdomen: soft, NTTP, ND, normal BS, no HSM. Extremities: no cyanosis, clubbing, or edema. Neurological: patient awake, alert, oriented x 3; cognitive function intact; pupils equally reactive to light and accomodation; cranial nerves II-XII grossly normal, moving all 4 extremities, no focal deficits, strength proved, mildly to moderately globally decreased. Psychiatric: affect appears normal, no acute evidence of depressive or anxiety feelings. Vitals/I&O's: Vital Signs Temp Pulse Resp BP Pulse Ox 98.2 F 56 L 16 131/72 H 93 01/06/18 06:01 01/06/18 07:31 01/06/18 06:01 01/06/18 06:01 01/06/18 06:01 Oxygen Flow Rate (L/min) 2 Oxygen Delivery Method Room Air Weight: 214 lb 4.629 oz Body Mass Index (BMI) 32.1 Finger Stick Blood Glucose 213 Intake and Output for Last 24 Hours 01/04/18 01/05/18 01/06/18 23:59 23:59 23:59 Intake Total 600 / 600 900 / 900 600 / 600 Output Total 725 / 725 Balance -125 / -125 900 / 900 600 / 600 Laboratory Results 01/05/18 11:00: Sodium 134 L, Potassium 4.6, Chloride 99, Carbon Dioxide 30.0, BUN 38 H, Creatinine 2.39 H, Estim Creat Clear Calc 30.81, Est GFR (MDRD) Af Amer 35 L, Est GFR (MDRD) Non-Af 29 L, BUN/Creatinine Ratio 15.9, Glucose 230 H, Calcium 8.6, Phosphorus 3.6, Albumin 3.7 01/05/18 11:24: POC Glucose 226 H 01/05/18 16:40: POC Glucose 153 H 01/05/18 21:25: POC Glucose 208 H 01/06/18 06:52: POC Glucose 132 H Current Medications Acetaminophen (Tylenol) 650 mg PO Q6H PRN PRN PRN Reason: Mild Pain (1-3)/Temp > 100.7 F Amiodarone HCl (Cordarone) 200 mg PO DAILY [facility] Last Admin: 01/05/18 08:47 Dose: 200 mg Aspirin (Aspirin, Baby) 81 mg PO DAILY@0800 [facility] Last Admin: 01/05/18 08:47 Dose: 81 mg Carvedilol (Coreg) 25 mg PO BID [facility] Last Admin: 01/05/18 21:28 Dose: 25 mg Clopidogrel Bisulfate (Plavix) 75 mg PO DAILY [facility] Last Admin: 01/05/18 08:49 Dose: 75 mg Dextrose (D50w Syringe) 0 gm IV X1 PRN; Protocol PRN Reason: Hypoglycemia Last Admin: 01/04/18 01:41 Dose: 12.5 gm Diphenhydramine HCl (Benadryl) 50 mg PO X1 ONE Stop: 01/07/18 07:01 Furosemide (Lasix) 80 mg PO BID@1000,1800 [facility] Last Admin: 01/05/18 17:46 Dose: 80 mg Glucagon () 1 mg IM .X1 PRN PRN Reason: Hypoglycemia Hydralazine HCl (Apresoline) 50 mg PO TID [facility] Last Admin: 01/06/18 06:05 Dose: 50 mg Sodium Chloride () 250 mls @ 15 mls/hr IV .[id number] PRN PRN Reason: SALINE FLUSH Sodium Chloride () 1,000 mls @ 0 mls/hr IV .Q0M [facility] Insulin Human Lispro (Humalog Kwikpen (Bkc)) 0 unit SQ ACHS [facility]; Protocol Last Admin: 01/06/18 07:23 Dose: Not Given Isosorbide Mononitrate (Imdur) 120 mg PO BID [facility] Last Admin: 01/05/18 21:27 Dose: 120 mg Losartan Potassium (Cozaar) 100 mg PO DAILY [facility] Last Admin: 01/05/18 08:48 Dose: 100 mg Magnesium Hydroxide (Milk Of Magnesia) 30 ml PO DAILY PRN PRN Reason: Constipation Nitroglycerin (Nitrostat) 0.4 mg SUBLINGUAL Q5M PRN PRN Reason: CARDIAC/CHEST PAIN Pantoprazole Sodium (Protonix) 40 mg PO BID [facility] Last Admin: 01/05/18 21:29 Dose: 40 mg Pravastatin Sodium (Pravachol) 40 mg PO QHS [facility] Last Admin: 01/05/18 21:28 Dose: 40 mg Psyllium Hydrophilic Mucilloid (Metamucil) 1 packet PO DAILY PRN PRN PRN Reason: CONSTIPATION Ranolazine (Ranexa) 500 mg PO BID [facility] Last Admin: 01/05/18 21:29 Dose: 500 mg Sodium Chloride () 5 - 30 ml IV UD PRN PRN Reason: SALINE FLUSH Last Admin: 01/05/18 13:01 Dose: 10 ml Medical Necessity - Tobacco Use Smoking Status: Former smoker Tobacco Use: Non-smoker Assessment/Plan All Active Problems (Last Reviewed 05/24/17 @ 15:10 by Melania Mendoza) Esophagitis determined by endoscopy (Acute ~05/06/17) Cardiogenic shock (Resolved ~06/08/16) Hypertensive emergency (Resolved) Abdominal pain (Resolved) Acute pulmonary edema (Resolved) Acute respiratory failure (Resolved) Atrial fibrillation with RVR (Resolved) Chest pain (Resolved) Elevated troponin (Resolved) Metabolic acidosis (Resolved) Shortness of breath (Resolved) The patient is a 67 y/o M w/ PMHx: Diabetes mellitus type II, HTN, HLD, CAD s/p PCI, CKD stage III, AOCD, Chronic atrial fibrillation, History of Mural Thrombus on chronic anticoagulation, Chronic Systolic CHF/Ischemic Cardiomyopathy w/ progressively worsening x 24 hours w/ acute hypoxic respiratory failure secondary to acute on chronic CHF exacerbation. (1) Acute Hypoxic Respiratory Failure secondary to Acute Decompensated Systolic CHF, Ischemic Cardiomyopathy: Placed on BIPAP in the ED upon admission secondary to severity of presentation. CXR obtained in the ED w/ evidence congestion. Patient administered IV lasix in the ED, admitted to PCU, maintained on cardiac telemetry, cardiac enzyme series w/ 0.046 upon admission-->0.216-->0.353, mag normal, treated w/ initially IV lasix diuresis w/ oral transition, monitor I/Os, maintain on intake restriction, continue medical therapy w/ asa, plavix, statin, BB, ARB, ranexa, hydralazine. Most recent ECHO noted 05/22/17 w/ normal LV size, moderately severe segmental systolic dysfunction, EF 25%, mild TBI. Cardiology consulted, following. Planned Cardiac catheterization on 01/07/18 given need for Eliquis hold. (2) Acute kidney injury on CKD stage III: Admission BUN/Cr 32/2.64, prior baseline creatinine noted to be 1.8-2.0. CT A/P from earlier this year without any hydronephrosis but noted stranding per renal report w/ UA notable for proteinuria w/ planned quantification outpatient, creatinine increase w/ lasix usage acutely and per nephrology likely secondary to CRS. Renal artery dopplers unremarkable. Renal recommendations to maintain on lasix 60 mg BID, placed on 80 mg BID per Cardiology. 01/06/18 BUN/Cr 38/2.39. (3) Indeterminate cardiac enzyme w/ CAD Hx: Hx PCI (SARA-RCA 06/15/2011, SARA-OM1 06/30/2011, SARA-LAD 08/20/2014, SARA-Prox- RCA 06/08/2016), admission EKG without acute evidence of ischemia, in setting of acute CHF exacerbation. Trop 0.046 upon admission-->0.216-->0.353, mag normal level, maintained on telemetry (4) Lactic Acidosis: Admission LA 2.8-->improved 2.1, likely secondary to acute presentation. (5) Hypertension: Transitioned from IV lasix to oral regimen, maintain on coreg, ARB, isosorbide, hydralazine w/ changes per Cardiology discretion. (6) Hyperlipidemia: Maintain on home statin regimen. FLP w/ TG 174, TChol 131, LDL 60, VLDL 35, HDL 36. (7) Diabetes mellitus type II: Hold oral home regimen, continue home insulin regimen, ADA diet, accu checks w/ ISS. (8) PAF: Rate controlled, maintained on amiodarone, holding eliquis given planned cardiac catheterization on 01/07/18. (9) AOCD: Admission Hgb 15.5, IV lasix administered, repeat Hgb 01/04/18 12.3, stable baseline. (10) History of Mural Thrombus on chronic anticoagulation: Holding eliquis for planned cardiac catheterization. (11) DVT Prophylaxis: SCDs, holding eliquis for planned cardiac catheterization. (12) CODE status: DNR-CCA, no intubation. Code Visit Inpatient E&M: 13349 Subs Hosp L3
[2018-01-06] MEDS: Aspirin 81 MG TAB.CHEW PO (08:21)
[2018-01-06] MEDS: Insulin Human 75/25 Kwickpen 25 UNIT SC ×2 (08:22→17:08)
[2018-01-06] MEDS: Carvedilol 25 MG Tablet PO ×2 (08:23→21:21)
[2018-01-06] MEDS: Amiodarone 200 MG Tablet PO (08:23)
[2018-01-06] MEDS: Clopidogrel Bisulfate 75 MG Tablet PO (08:24)
[2018-01-06] MEDS: Losartan Potassium 100 MG Tablet PO (08:24)
[2018-01-06] MEDS: Furosemide 80 MG Tablet PO ×2 (08:24→17:06)
[2018-01-06] MEDS: Pantoprazole Sodium 40 MG Tablet PO ×2 (08:24→21:21)
[2018-01-06] MEDS: Ranolazine 500 MG Tablet PO ×2 (08:25→21:21)
[2018-01-06] MEDS: Insulin Lispro 100 UNIT/ML INSULN.PEN SQ ×2 (11:30→17:07)
--- NOTE | 2018-01-06 11:59 | PCM.PN.REN ---
Subjective: no new complaints - Physical Exam General: Alert, Oriented x3, Cooperative HEENT: Atraumatic, PERRLA, EOMI, Normocephalic Neck: Supple, No JVD, Negative Carotid Bruits Lungs: Clear to auscultation, Normal air movement Cardiovascular: Regular rate, No murmurs Abdomen: Bowel Sounds Present, Soft, Non Tender Extremities: No edema, Capillary Refill Less than 3 Seconds Skin: No rashes, No breakdown Musculoskeletal: No Tenderness to Palpation of Joints or Extremities Neurological: Cranial nerves II-XII grossly intact Psych/Mental Status: Normal Affect, Appropriate Vital Signs Temp Pulse Resp BP Pulse Ox 97.8 F 55 L 18 153/73 H 94 01/06/18 10:01/06/18 11:00 01/06/18 10:02 01/06/18 10:02 01/06/18 10:02 Oxygen Flow Rate (L/min) 2 Oxygen Delivery Method Room Air Weight: 97.2 kg Body Mass Index (BMI) 32.1 Finger Stick Blood Glucose 213 Intake and Output for Last 24 Hours 01/04/18 01/05/18 01/06/18 23:59 23:59 23:59 Intake Total 600 / 600 900 / 900 600 / 600 Output Total 725 / 725 Balance -125 / -125 900 / 900 600 / 600 POC Glucose 01/06/18 01/05/18 01/05/18 06:52 21:25 16:40 POC Glucose 132 H 208 H 153 H Medical Necessity - Tobacco Use Smoking Status: Former smoker Tobacco Use: Non-smoker Assessment/Plan All Active Problems (Last Reviewed 05/24/17 @ 15:10 by Melania Mendoza) Esophagitis determined by endoscopy (Acute ~05/06/17) Cardiogenic shock (Resolved ~06/08/16) Hypertensive emergency (Resolved) Abdominal pain (Resolved) Acute pulmonary edema (Resolved) Acute respiratory failure (Resolved) Atrial fibrillation with RVR (Resolved) Chest pain (Resolved) Elevated troponin (Resolved) Metabolic acidosis (Resolved) Shortness of breath (Resolved) YOMI CKD stage 3. Baseline creatinine as of last month is around 1.8 to 2.0. creatinine slowly worsening in setting of diuresis. CT abdomen from May did not show any hydronephrosis. there was however some perinephric stranding. UA showed proteinuria. can send for quantification as outpatient creatinine increase is likely CRS. HTN. BP was fairly high initially. now better with diuresis. Renal A dopplers negative. CHF. clinically better. continue lasix to 80 mg BID PO for now for cardiac cath tomorrow explained about risk of SUNSHINE, agreeable
[2018-01-06 12:05] LABS: Bedside Glucose 184 mg/dL (70-110)
--- NOTE | 2018-01-06 12:39 | PCM.PN.CARD ---
Subjectve: Patient continues to improve. No shortness of breath overnight. Somewhat hypertensive this morning. No chest pain. Objective: Vital Signs Temp Pulse Resp BP Pulse Ox 97.8 F 55 L 18 153/73 H 94 01/06/18 10:02 01/06/18 11:00 01/06/18 10:02 01/06/18 10:02 01/06/18 10:02 Oxygen Flow Rate (L/min) 2 Oxygen Delivery Method Room Air Weight: 214 lb 4.629 oz Body Mass Index (BMI) 32.1 Finger Stick Blood Glucose 213 Intake and Output for Last 24 Hours 01/04/18 01/05/18 01/06/18 23:59 23:59 23:59 Intake Total 600 / 600 900 / 900 600 / 600 Output Total 725 / 725 Balance -125 / -125 900 / 900 600 / 600 General: Awake, Alert, Oriented x 3 HEENT: PERRL, EOMI, Sclera Non Icteric Neck: Supple, Good ROM, No Lymph Node Enlargement Lungs: Clear to auscultation Cardiovascular: Regular Rhythm, Normal S1, Normal S2, No Murmurs, No Rubs, No Gallops Vascular: No Carotid Bruits, Normal Femoral Pulses, Normal Radial Pulses, Normal Dorsalis Pedal Pulse, Normal Posterior Tibial Pulses Abdomen: Bowel Sounds Present, Soft, Non Tender, No HSM, No Organomegaly Extremities: No Cyanosis, No Clubbing, No edema Neurological: No Focal Motor or Sensory Deficit Rhythm: EKG: ECHO: Stress Test: Cardiac Cath: PCI: CT Surgery: Holter monitor: EPS: PPM: CXR: Chest CT Scan: Medical Necessity - Tobacco Use Smoking Status: Former smoker Tobacco Use: Non-smoker Assessment/Plan #1. Ischemic cardiomyopathy: Patient was to be discharged home yesterday, however when he was ambulating he developed recurrent substernal chest pain and significant shortness of breath as well as hypertension. Decision was made to postpone his discharge, hold his Eliquis, and proceed with left heart catheterization and graft angiography as well as right heart catheterization tomorrow morning, Wednesday. This morning the patient is doing much better however he did have some episodes of hypertension. I believe a good component of the patient's problem is uncontrolled hypertension, severe LV dysfunction, and chronic renal insufficiency with a creatinine around 3.0. I have asked renal to consult on the patient to determine whether he would benefit from early dialysis for fluid management. This may be necessary if the patient has no coronary arteries that require revascularization. In the meantime I recommend increasing his Lasix to 80 mg p.o. twice daily, continuing his Imdur. I agree with increasing his Coreg to 25 mill grams p.o. twice daily for antihypertensive control with alpha blockade. However, I would recommend increasing his hydralazine to 75 mg 3 times daily at least, as he was on 75 mg 3 times daily at home and his blood pressure was not optimally controlled. In addition I would recommend metolazone 2.5 mg once a week and perhaps up to 3 times per week every Wednesday and Wednesday, to assist with fluid management given his chronic renal insufficiency. Right and left heart catheterization to proceed tomorrow morning. 2. Coronary artery disease: Continue aspirin and Plavix therapy. 3. Atrial fibrillation: We will hold his Eliquis for 3 days prior to his catheterization. Continue amiodarone. He is currently in normal sinus rhythm. 4. Patient may be discharged home if blood pressure and fluid management are optimized. Thank you very much for the opportunity to participate in the cardiac care of your patient. Discussed with the patient, his daughter, and son. Code Visit Inpatient E&M: 26925 Subs Hosp L2
[2018-01-06] MEDS: hydrALAZINE 25 MG Tablet 75 MG PO ×2 (14:11→21:23)
[2018-01-06 16:26] LABS: Bedside Glucose 176 mg/dL (70-110)
[2018-01-06] MEDS: Pravastatin 40 MG Tablet PO (21:21)
[2018-01-06 22:21] LABS: Bedside Glucose 145 mg/dL (70-110)
[2018-01-07] VITALS (19 sets, daily range): BP systolic 104–144; BP diastolic 58–80; PULSE 52–60; RESP 14–18; TEMP 36.3–36.6; O2SAT 92–98
[2018-01-07] MEDS: Carvedilol 25 MG Tablet PO (05:48)
[2018-01-07] MEDS: Ranolazine 500 MG Tablet PO (05:49)
[2018-01-07] MEDS: hydrALAZINE 25 MG Tablet 75 MG PO ×2 (05:49→15:24)
[2018-01-07] MEDS: Aspirin 81 MG TAB.CHEW PO (05:49)
[2018-01-07] MEDS: 0.9% Normal Saline 1,000 ML 15 ML IV ×2 (05:50→07:33)
[2018-01-07] MEDS: Clopidogrel Bisulfate 75 MG Tablet PO (05:51)
[2018-01-07] MEDS: Losartan Potassium 100 MG Tablet PO (05:51)
--- NOTE | 2018-01-07 05:55 | EKG12_ITS ---
Test Reason : AM EKG Blood Pressure : / mmHG Vent. Rate : 055 BPM Atrial Rate : 055 BPM P-R Int : 228 ms QRS Dur : 094 ms QT Int : 548 ms P-R-T Axes : 071 -29 100 degrees QTc Int : 524 ms Poor data quality, interpretation may be adversely affected Sinus bradycardia with 1st degree A-V block Inferior infarct , age undetermined Anterolateral infarct , age undetermined Prolonged QT Abnormal ECG When compared with ECG of 03-JAN-2018 08:54, Significant changes have occurred Confirmed by BELKIS METZ, JUANJOSE ([id number]), state editor CANELO DIETRICH ([id number]) on 01/12/2018 3:42:15 PM Referred By: YOLANDA Confirmed By:JUANJOSE TAMAYO MD
[2018-01-07 06:16] LABS: Absolute Lymphocyte Count 1.03 X10^3/ul (0.83-4.51); Absolute Neutrophil Count 5.1 X10^3/uL (2.0-7.7); Basophil# 0.02 X10^3/uL; Basophil% 0.3 % (0-1); Eosinophil# 0.16 X10^3/uL; Eosinophils% 2.3 % (0-5); Hematocrit 38.4 % (40-54); Hemoglobin 12.6 g/dl (13.0-16.5); Lymphocyte # 1.03 X10^3/ul (4.0); Lymphocyte % 14.6 % (19-41); Mean Corp Hgb Conc 32.8 g/gl (32-36); Mean Corpuscular Hgb 29.2 pg (27.0-32.0); Mean Corpuscular Volume 88.9 fL (80-94); Mean Platelet Vol. 9.5 fl (6.2-12.0); Monocyte# 0.74 X10^3/uL; Monocyte% 10.5 % (0-10); Neutrophil # 5.06 X10^3/uL (2.7-7.7); Neutrophil % 71.7 % (47-70); Platelet Count 191 K/mm3 (150-450); RBC Distribution Width CV 14.1 % (11.6-14.6); RBC Distribution Width SD 45.5 fl (35.1-43.9); Red Blood Count 4.32 M/mm3 (4.6-6.2); White Blood Count 7.1 K/mm3 (4.4-11.0)
[2018-01-07 06:19] LABS: POSITIVE COUNT NO; POSITIVE DIFFERENTIAL NO; POSITIVE MORPHOLOGY NO
[2018-01-07 06:30] LABS: Partial Thromboplast Time 29.3 Seconds (24.1-36.2)
[2018-01-07 06:35] LABS: Anion Gap 9 (5-15); BUN 48 mg/dL (7-18); BUN/Creat Ratio 19.6 RATIO (10-20); Calcium,Total 8.3 mg/dL (8.5-10.1); Chloride 100 mmol/L (98-107); Creatinine, Serum 2.45 mg/dL (0.70-1.30); EST Glomerular Filtration Rate 28 mL/min (>60); Est Glom Filt Rate - Afr Amer 34 mL/min (>60); Estimated Creatinine Clearance 30.06 ml/min; Glucose 145 mg/dL (74-106); Potassium 3.5 mmol/L (3.5-5.1); Sodium Level 138 mmol/L (136-145)
[2018-01-07 06:41] LABS: International Normalized Ratio 1.3; Prothrombin Time (Protime)PT. 16.4 SECONDS (11.7-14.9)
[2018-01-07 07:11] LABS: Bedside Glucose 166 mg/dL (70-110)
[2018-01-07] MEDS: DiphenhydrAMINE 25 MG Capsule 50 MG PO (07:33)
--- NOTE | 2018-01-07 07:44 | NURSING ---
report called to [employer] alhaji carlos with no questions voiced. pt down to [facility] via bed with family.
--- NOTE | 2018-01-07 09:20 | NURSING ---
pt returned from dental laboratory assistant and getting 250cc bolus for bp drop 70's in dental laboratory assistant, pt in reverse trendelenburg. no symptoms or pain. site with no hematomas or bleeding.
--- NOTE | 2018-01-07 09:22 | NURSING ---
0922 bps stable and pt bolus complete. trendelenburg off and pt aware of npo and laying flat x1 hr. family up to room now and no c/o pain
[2018-01-07] MEDS: Acetaminophen 325 MG Tablet 650 MG PO (10:04)
[2018-01-07] MEDS: Amiodarone 200 MG Tablet PO (10:06)
[2018-01-07] MEDS: Pantoprazole Sodium 40 MG Tablet PO (10:06)
[2018-01-07] MEDS: Insulin Human 75/25 Kwickpen 25 UNIT SC (10:10)
--- NOTE | 2018-01-07 10:13 | NURSING ---
pt with involuntary leg jerking now at times. denies any numbnes or tingling at this time however. tylenol given for achiness at rt groin site. sat up 30 degrees and hoda water. assisted on ordering meal. no other needs noted
[2018-01-07 11:05] LABS: Bedside Glucose 156 mg/dL (70-110)
--- NOTE | 2018-01-07 11:25 | PCM.DC ---
You will use the following diet at home:: Calorie/Carbohydrate Controlled (specify 1200, 1400, etc) - Cardiac/ADA 1800 calorie diet with recommended 2000 ml fluid restriction daily with continued close daily weight monitoring and if increased notification to your auxiliary powerplant operator., Cardiac - Cardiac/ADA 1800 calorie diet with recommended 2000 ml fluid restriction daily with continued close daily weight monitoring and if increased notification to your auxiliary powerplant operator. Your food should be the consistency of: Regular Your liquids should be the consistency of: Regular/Thin Discharge Activity: - - Encouraged continued regular activity and any specific parameters per Cardiology given recent cardiac catheterization. Advance to moderate activity per Cardiology discretion at follow-up. Weight Bearing Status: Weight bearing as tolerated Call your doctor if your incision/area has: Continuous Slow Oozing, Sudden Increased Bleeding, Increased Pain/ Swelling, Increased Redness, Foul Smelling Discharge, Swelling at the incision site Call your doctor if you observe: Fever of 101 or Higher, Inability to urinate, Inability to have a bowel movement, Shortness of breath, Dizziness, Fainting spells, Chest pain, Uncontrolled pain Instructions: What Is Heart Failure?, Heart Failure: Warning Signs of a Flare-Up, Heart Failure: Tracking Your Weight, Heart Failure: Being Active, Taking Medications for Your Heart, Discharge Instructions for Acute Kidney Injury Additional Instructions: Please have repeat basic metabolic panel with your PCP at follow-up or facs teacher. Please have results faxed to your National Dedicated Truck Driver if performed per your primary care physician. Allergies/Adverse Reactions: Allergies atorvastatin calcium [From Lipitor] Allergy (Verified 01/03/18 09:13) Unknown diltiazem Allergy (Verified 01/03/18 09:13) Angioedema Medications to take at Discharge Aspirin [Aspirin, Baby] 81 mg PO DAILY@0800 12/28/14 Pravastatin [Pravachol] 40 mg PO QHS 12/28/14 Amiodarone HCl 200 mg PO DAILY 04/09/16 clopidogrel 75 mg tablet 75 mg PO DAILY #30 tab 06/23/17 Losartan Potassium 100 mg PO QDAY 11/25/17 Pantoprazole Sodium [Protonix] 40 mg PO BID 11/25/17 Isosorbide Mononitrate [Imdur] 120 mg PO BID #60 tab 11/28/17 Novolin 70-30 100 Unit/ml Vial 27 units SQ BID #0 11/28/17 Nitroglycerin [Nitrostat] 0.4 mg SUBLINGUAL Q5M PRN #10 tablet 01/05/18 Ranolazine [Ranexa] 500 mg PO BID #60 tablet 01/05/18 hydrALAZINE [Apresoline] 25 mg PO TID #90 tablet 01/05/18 Furosemide [Lasix] 80 mg PO BIDLX #60 tablet 01/07/18 The following prescriptions were given: Furosemide [Lasix] 80 mg PO BIDLX #60 tablet Nitroglycerin [Nitrostat] 0.4 mg SUBLINGUAL Q5M PRN #10 tablet PRN Reason: Cardiac/Chest Pain Ranolazine [Ranexa] 500 mg PO BID #60 tablet hydrALAZINE [Apresoline] 25 mg PO TID #90 tablet Orders to be completed after discharge: Basic Metabolic Profile (BMP) Time Frame: 3 Days, Location: Laboratory Primary Care Physician: Jennifer Spicer DO [Primary Care Provider] - Please follow up with your Primary Care Physician in: Follow-up within 3-5 days to review admission and have BMP performed. Test Results: Test results from this visit will be discussed in further detail at your follow-up appointment, if applicable. Please Follow Up With: Joe Harden MD When: Follow-up within 1 week. Please Follow Up With: Marco Antonio Butler MD When: Please follow-up as requested per Cardiology or within 1-2 wk, may see NEURORADIOLOGIST. Proposed Discharge Date: 01/07/18
--- NOTE | 2018-01-07 11:29 | DCINST_ITS ---
You will use the following diet at home:: Calorie/Carbohydrate Controlled (specify 1200, 1400, etc) - Cardiac/ADA 1800 calorie diet with recommended 2000 ml fluid restriction daily with continued close daily weight monitoring and if increased notification to your electrical machine builder., Cardiac - Cardiac/ADA 1800 calorie diet with recommended 2000 ml fluid restriction daily with continued close daily weight monitoring and if increased notification to your electrical machine builder. Your food should be the consistency of: Regular Your liquids should be the consistency of: Regular/Thin Discharge Activity: - - Encouraged continued regular activity and any specific parameters per Cardiology given recent cardiac catheterization. Advance to moderate activity per Cardiology discretion at follow-up. Weight Bearing Status: Weight bearing as tolerated Call your doctor if your incision/area has: Continuous Slow Oozing, Sudden Increased Bleeding, Increased Pain/ Swelling, Increased Redness, Foul Smelling Discharge, Swelling at the incision site Call your doctor if you observe: Fever of 101 or Higher, Inability to urinate, Inability to have a bowel movement, Shortness of breath, Dizziness, Fainting spells, Chest pain, Uncontrolled pain Instructions: What Is Heart Failure?, Heart Failure: Warning Signs of a Flare- Up, Heart Failure: Tracking Your Weight, Heart Failure: Being Active, Taking Medications for Your Heart, Discharge Instructions for Acute Kidney Injury Additional Instructions: Please have repeat basic metabolic panel with your PCP at follow-up or legal secretary. Please have results faxed to your Experimental Mechanic Electrical if performed per your primary care physician. Allergies/Adverse Reactions: Allergies atorvastatin calcium [From Lipitor] Allergy (Verified 01/03/18 09:13) Unknown diltiazem Allergy (Verified 01/03/18 09:13) Angioedema Medications to take at Discharge Aspirin [Aspirin, Baby] 81 mg PO DAILY@0800 12/28/14 Pravastatin [Pravachol] 40 mg PO QHS 12/28/14 Amiodarone HCl 200 mg PO DAILY 04/09/16 clopidogrel 75 mg tablet 75 mg PO DAILY #30 tab 06/23/17 Losartan Potassium 100 mg PO QDAY 11/25/17 Pantoprazole Sodium [Protonix] 40 mg PO BID 11/25/17 Isosorbide Mononitrate [Imdur] 120 mg PO BID #60 tab 11/28/17 Novolin 70-30 100 Unit/ml Vial 27 units SQ BID #0 11/28/17 Nitroglycerin [Nitrostat] 0.4 mg SUBLINGUAL Q5M PRN #10 tablet 01/05/18 Ranolazine [Ranexa] 500 mg PO BID #60 tablet 01/05/18 hydrALAZINE [Apresoline] 25 mg PO TID #90 tablet 01/05/18 Furosemide [Lasix] 80 mg PO BIDLX #60 tablet 01/07/18 The following prescriptions were given: Furosemide [Lasix] 80 mg PO BIDLX #60 tablet Nitroglycerin [Nitrostat] 0.4 mg SUBLINGUAL Q5M PRN #10 tablet PRN Reason: Cardiac/Chest Pain Ranolazine [Ranexa] 500 mg PO BID #60 tablet hydrALAZINE [Apresoline] 25 mg PO TID #90 tablet Orders to be completed after discharge: Basic Metabolic Profile (BMP) Time Frame: 3 Days, Location: Laboratory Primary Care Physician: Jennifer Spicer DO [Primary Care Provider] - Please follow up with your Primary Care Physician in: Follow-up within 3-5 days to review admission and have BMP performed. Test Results: Test results from this visit will be discussed in further detail at your follow- up appointment, if applicable. Please Follow Up With: Joe Harden MD When: Follow-up within 1 week. Please Follow Up With: Marco Antonio Butler MD When: Please follow-up as requested per Cardiology or within 1-2 wk, may see ONCOLOGY RESEARCH RN. Proposed Discharge Date: 01/07/18
--- NOTE | 2018-01-07 11:30 | PCM.DC.SUM ---
Discharge Date and Diagnosis Date of Admission: 01/03/18 Date of Discharge: 01/07/18 - Primary Discharge Diagnosis (1) Acute Hypoxic Respiratory Failure secondary to Acute Decompensated Systolic CHF, Ischemic Cardiomyopathy (2) Acute kidney injury on CKD stage III (3) Indeterminate cardiac enzyme w/ CAD Hx (4) Lactic Acidosis (5) Hypertension (6) Hyperlipidemia (7) Diabetes mellitus type II (8) PAF (9) AOCD (10) History of Mural Thrombus on chronic anticoagulation - Secondary Discharge Diagnosis Chronic Problems (Last Reviewed 05/24/17 @ 15:10 by Melania Mendoza) CAD (coronary artery disease) (Chronic) Presence of implantable cardioverter-defibrillator (ICD) (Chronic) Type 2 diabetes mellitus without complications (Chronic) DDD (degenerative disc disease) (Chronic) 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) History of coronary artery stent placement (Chronic ~06/08/16) SARA-RCA 06/15/2011, SARA-OM1 06/30/2011, SARA-LAD 08/20/2014, SARA-Prox- RCA 06/08/2016 Atherosclerosis of coronary artery of [place] heart without angina pectoris (Chronic) SARA-RCA 06/15/2011, SARA-OM1 06/30/2011, SARA-LAD 08/20/2014, SARA-Prox- RCA 06/08/2016 Paroxysmal atrial fibrillation (Chronic) Hypertension (Chronic) Hyperlipidemia (Chronic) Type II diabetes mellitus (Chronic) Hyperkalemia (Chronic) Chronic renal failure, stage 3 (moderate) (Chronic) STEMI (ST elevation myocardial infarction) (Chronic) Anemia of chronic renal failure, stage 3 (moderate) (Chronic) Obesity (BMI 30.0-34.9) (Chronic) Systolic CHF, acute on chronic (Chronic) Cardiomyopathy, ischemic (Chronic) Hospital Course and Treatment Dr. Paul/Luke Cardiology Dr. Harden Nephrology Operations: None Procedures: Cardiac catheterization, EKG Summary of Care Provided: The patient is a 67 y/o M w/ PMHx: Diabetes mellitus type II, HTN, HLD, CAD s/p PCI, CKD stage III, AOCD, Chronic atrial fibrillation, History of Mural Thrombus on chronic anticoagulation, Chronic Systolic CHF/Ischemic Cardiomyopathy who presented to the [facility] ED on 01/03/18 w/ progressively worsening x 24 hours w/ acute hypoxic respiratory failure secondary to acute on chronic CHF exacerbation. Placed on BIPAP in the ED upon admission secondary to severity of presentation. CXR obtained in the ED w/ evidence congestion. Patient administered IV lasix in the ED, admitted to PCU, maintained on cardiac telemetry, cardiac enzyme series w/ 0.046 upon admission-->0.216-->0.353, mag normal, treated w/ initially IV lasix diuresis w/ oral transition, monitor I/Os, maintain on intake restriction, continue medical therapy w/ asa, plavix, statin, BB, ARB, ranexa, hydralazine. Most recent ECHO noted 05/22/17 w/ normal LV size, moderately severe segmental systolic dysfunction, EF 25%, mild TBI. Cardiology consulted, followed, onset lightheadedness and dizziness thus decision to perform 01/07/18 Cardiac catheterization w/ hold on eliquis for procedure and restart per Cardiology clearance at their discretion. Admission BUN/Cr 32/2.64, prior baseline creatinine noted to be 1.8-2.0. CT A/P from earlier this year without any hydronephrosis but noted stranding per renal report w/ UA notable for proteinuria w/ planned quantification outpatient, creatinine increase w/ lasix usage acutely and per nephrology likely secondary to CRS. Renal artery dopplers unremarkable. Renal recommendations to maintain on lasix 60 mg BID-->80 mg BID per Cardiology discretion which was continued w/ improvement but fluctuations, 01/07/18 BUN/Cr 48/2.45 w/ requested repeat BMP within 3-5 days with PCP and also close follow-up with Cardiology and also Nephrology. Encouraged close weight monitoring with continued restrictions outpatient and daily weight checks. Upon discharge patient instructed per cardiology and confirmed with Dr. Butler directly following review of patient history and co-morbidities including history of chronic atrial fibrillation and history of mural thrombus to restart patient Eliquis on 01/12/18 secondary to concern for bleeding post-cardiac catheterization. DAY OF DISCHARGE PROGRESS NOTE: Subjective: Patient without acute event overnight per self and nursing report. No recurrent lightheadedness or malaise. Patient denies fever, chills, nausea, emesis, abdominal pain, chest pain or dyspnea. Patient agreeable to discharge to home following cardiac catheterization bed rest completion. Patient will be discharged with follow-up with primary care physician within 3-5 days in addition to Cardiology as well as his Supervisor Die Casting. Objective: AF, T 55, heart rate 123/67, respiratory rate 16, 97% on room air. Physical Examination: General: awake, alert, oriented x 3 and cooperative, laying in bed, NAD. Skin: normal color, turgor, no icterus, cyanosis, s/p cardiac catheterization, dressing in place. HEENT: AT/NC, EOMI, PERRLA, MMM. Lungs: Diminished BS BL, > bases, moderate effort, no rales, ronchi or wheezing; Heart: Regular rate and rhythm; no gallop, rub audible. Extremities: no cyanosis, clubbing, or edema. Neurological: patient awake, alert, oriented x 3; cognitive function appears intact upon questioning,; pupils equally reactive to light and accomodation; cranial nerves II-XII grossly normal, moving all 4 extremities but limited given ongoing bedrest s/p catheterization. Psychiatric: affect appears normal, no acute evidence of depressive or anxiety feelings. Assessment and Plan: Please see hospital summary above. Discharge Activity: - - Encouraged continued regular activity and any specific parameters per Cardiology given recent cardiac catheterization. Advance to moderate activity per Cardiology discretion at follow-up. Weight Bearing Status: Weight bearing as tolerated Call your doctor if your incision/area has: Continuous Slow Oozing, Sudden Increased Bleeding, Increased Pain/ Swelling, Increased Redness, Foul Smelling Discharge, Swelling at the incision site Call your doctor if you observe: Fever of 101 or Higher, Inability to urinate, Inability to have a bowel movement, Shortness of breath, Dizziness, Fainting spells, Chest pain, Uncontrolled pain Home Medications: Medications to take at Discharge Aspirin [Aspirin, Baby] 81 mg PO DAILY@0800 12/28/14 Pravastatin [Pravachol] 40 mg PO QHS 12/28/14 Amiodarone HCl 200 mg PO DAILY 04/09/16 clopidogrel 75 mg tablet 75 mg PO DAILY #30 tab 06/23/17 Losartan Potassium 100 mg PO QDAY 11/25/17 Pantoprazole Sodium [Protonix] 40 mg PO BID 11/25/17 Isosorbide Mononitrate [Imdur] 120 mg PO BID #60 tab 11/28/17 Novolin 70-30 100 Unit/ml Vial 27 units SQ BID #0 11/28/17 Nitroglycerin [Nitrostat] 0.4 mg SUBLINGUAL Q5M PRN #10 tablet 01/05/18 Ranolazine [Ranexa] 500 mg PO BID #60 tablet 01/05/18 hydrALAZINE [Apresoline] 25 mg PO TID #90 tablet 01/05/18 Furosemide [Lasix] 80 mg PO BIDLX #60 tablet 01/07/18 Following Prescrptions Were Given to Patient: Furosemide [Lasix] 80 mg PO BIDLX #60 tablet Nitroglycerin [Nitrostat] 0.4 mg SUBLINGUAL Q5M PRN #10 tablet PRN Reason: Cardiac/Chest Pain Ranolazine [Ranexa] 500 mg PO BID #60 tablet hydrALAZINE [Apresoline] 25 mg PO TID #90 tablet Other Amb Orders: Basic Metabolic Profile (BMP) Time Frame: 3 Days, Location: Laboratory Primary Care Physician: Jennifer Spicer DO [Primary Care Provider] - Please follow up with your Primary Care Physician in: Follow-up within 3-5 days to review admission and have BMP performed. Please Follow Up With: Joe Harden MD When: Follow-up within 1 week. Please Follow Up With: Marco Antonio Butler MD When: Please follow-up as requested per Cardiology or within 1-2 wk, may see TERRAZZO POLISHER HELPER. Patient Instructions: What Is Heart Failure?, Heart Failure: Warning Signs of a Flare-Up, Heart Failure: Tracking Your Weight, Heart Failure: Being Active, Taking Medications for Your Heart, Discharge Instructions for Acute Kidney Injury Disposition: Home Minutes spent on discharge:: 35 Patient Condition:: Fair Medical Necessity - Tobacco Use Smoking Status: Former smoker Tobacco Use: Non-smoker Meaningful Use Info Meaningful Use Diagnoses (Choose all that apply): CHF - CHF AN/ARB ordered at discharge?: Yes Documented LVEF (%): 25 Code Visit Inpatient E&M: 18838 Disch Hosp
--- NOTE | 2018-01-07 11:36 | DS.PCM_ITS ---
Discharge Date and Diagnosis Date of Admission: 01/03/18 Date of Discharge: 01/07/18 - Primary Discharge Diagnosis (1) Acute Hypoxic Respiratory Failure secondary to Acute Decompensated Systolic CHF, Ischemic Cardiomyopathy (2) Acute kidney injury on CKD stage III (3) Indeterminate cardiac enzyme w/ CAD Hx (4) Lactic Acidosis (5) Hypertension (6) Hyperlipidemia (7) Diabetes mellitus type II (8) PAF (9) AOCD (10) History of Mural Thrombus on chronic anticoagulation - Secondary Discharge Diagnosis Chronic Problems (Last Reviewed 05/24/17 @ 15:10 by Melania Mendoza) CAD (coronary artery disease) (Chronic) Presence of implantable cardioverter-defibrillator (ICD) (Chronic) Type 2 diabetes mellitus without complications (Chronic) DDD (degenerative disc disease) (Chronic) 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) History of coronary artery stent placement (Chronic ~06/08/16) SARA-RCA 06/15/2011, SARA-OM1 06/30/2011, SARA-LAD 08/20/2014, SARA-Prox- RCA 06/08/2016 Atherosclerosis of coronary artery of [place] heart without angina pectoris (Chronic) SARA-RCA 06/15/2011, SARA-OM1 06/30/2011, SARA-LAD 08/20/2014, SARA-Prox- RCA 06/08/2016 Paroxysmal atrial fibrillation (Chronic) Hypertension (Chronic) Hyperlipidemia (Chronic) Type II diabetes mellitus (Chronic) Hyperkalemia (Chronic) Chronic renal failure, stage 3 (moderate) (Chronic) STEMI (ST elevation myocardial infarction) (Chronic) Anemia of chronic renal failure, stage 3 (moderate) (Chronic) Obesity (BMI 30.0-34.9) (Chronic) Systolic CHF, acute on chronic (Chronic) Cardiomyopathy, ischemic (Chronic) Hospital Course and Treatment Dr. Paul/Luke Cardiology Dr. Harden Nephrology Operations: None Procedures: Cardiac catheterization, EKG Summary of Care Provided: The patient is a 67 y/o M w/ PMHx: Diabetes mellitus type II, HTN, HLD, CAD s/p PCI, CKD stage III, AOCD, Chronic atrial fibrillation, History of Mural Thrombus on chronic anticoagulation, Chronic Systolic CHF/Ischemic Cardiomyopathy who presented to the [facility] ED on 01/03/18 w/ progressively worsening x 24 hours w/ acute hypoxic respiratory failure secondary to acute on chronic CHF exa cerbation. Placed on BIPAP in the ED upon admission secondary to severity of presentation. CXR obtained in the ED w/ evidence congestion. Patient administered IV lasix in the ED, admitted to PCU, maintained on cardiac telemetry, cardiac enzyme series w/ 0.046 upon admission-->0.216-->0.353, mag normal, treated w/ initially IV lasix diuresis w/ oral transition, monitor I/Os, maintain on intake restriction, continue medical therapy w/ asa, plavix, statin, BB, ARB, ranexa, hydralazine. Most recent ECHO noted 05/22/17 w/ normal LV size, moderately severe segmental systolic dysfunction, EF 25%, mild TBI. Cardiology consulted, followed, onset lightheadedness and dizziness thus decision to perform 01/07/18 Cardiac catheterization w/ hold on eliquis for procedure and restart per Cardiology clearance at their discretion. Admission BUN/Cr 32/2.64, prior baseline creatinine noted to be 1.8-2.0. CT A/P from earlier this year without any hydronephrosis but noted stranding per renal report w/ UA notable for proteinuria w/ planned quantification outpatient, creatinine increase w/ lasix usage acutely and per nephrology likely secondary to CRS. Renal artery dopplers unremarkable. Renal recommendations to maintain on lasix 60 mg BID-->80 mg BID per Cardiology discretion which was continued w/ improvement but fluctuations, 01/07/18 BUN/Cr 48/2.45 w/ requested repeat BMP within 3-5 days with PCP and also close follow-up with Cardiology and also Nephrology. Encouraged close weight monitoring with continued restrictions outpatient and daily weight checks. Upon discharge patient instructed per cardiology and confirmed with Dr. Butler directly following review of patient history and co- morbidities including history of chronic atrial fibrillation and history of mural thrombus to restart patient Eliquis on 01/12/18 secondary to concern for bleeding post-cardiac catheterization. DAY OF DISCHARGE PROGRESS NOTE: Subjective: Patient without acute event overnight per self and nursing report. No recurrent lightheadedness or malaise. Patient denies fever, chills, nausea, emesis, abdominal pain, chest pain or dyspnea. Patient agreeable to discharge to home following cardiac catheterization bed rest completion. Patient will be discharged with follow-up with primary care physician within 3-5 days in addition to Cardiology as well as his Legal Records Manager. Objective: AF, T 55, heart rate 123/67, respiratory rate 16, 97% on room air. Physical Examination: General: awake, alert, oriented x 3 and cooperative, laying in bed, NAD. Skin: normal color, turgor, no icterus, cyanosis, s/p cardiac catheterization, dressing in place. HEENT: AT/NC, EOMI, PERRLA, MMM. Lungs: Diminished BS BL, > bases, moderate effort, no rales, ronchi or wheezing; Heart: Regular rate and rhythm; no gallop, rub audible. Extremities: no cyanosis, clubbing, or edema. Neurological: patient awake, alert, oriented x 3; cognitive function appears intact upon questioning,; pupils equally reactive to light and accomodation; cranial nerves II-XII grossly normal, moving all 4 extremities but limited given ongoing bedrest s/p catheterization. Psychiatric: affect appears normal, no acute evidence of depressive or anxiety feelings. Assessment and Plan: Please see hospital summary above. Discharge Activity: - - Encouraged continued regular activity and any specific parameters per Cardiology given recent cardiac catheterization. Advance to moderate activity per Cardiology discretion at follow-up. Weight Bearing Status: Weight bearing as tolerated Call your doctor if your incision/area has: Continuous Slow Oozing, Sudden Increased Bleeding, Increased Pain/ Swelling, Increased Redness, Foul Smelling Discharge, Swelling at the incision site Call your doctor if you observe: Fever of 101 or Higher, Inability to urinate, Inability to have a bowel movement, Shortness of breath, Dizziness, Fainting spells, Chest pain, Uncontrolled pain Home Medications: Medications to take at Discharge Aspirin [Aspirin, Baby] 81 mg PO DAILY@0800 12/28/14 Pravastatin [Pravachol] 40 mg PO QHS 12/28/14 Amiodarone HCl 200 mg PO DAILY 04/09/16 clopidogrel 75 mg tablet 75 mg PO DAILY #30 tab 06/23/17 Losartan Potassium 100 mg PO QDAY 11/25/17 Pantoprazole Sodium [Protonix] 40 mg PO BID 11/25/17 Isosorbide Mononitrate [Imdur] 120 mg PO BID #60 tab 11/28/17 Novolin 70-30 100 Unit/ml Vial 27 units SQ BID #0 11/28/17 Nitroglycerin [Nitrostat] 0.4 mg SUBLINGUAL Q5M PRN #10 tablet 01/05/18 Ranolazine [Ranexa] 500 mg PO BID #60 tablet 01/05/18 hydrALAZINE [Apresoline] 25 mg PO TID #90 tablet 01/05/18 Furosemide [Lasix] 80 mg PO BIDLX #60 tablet 01/07/18 Following Prescrptions Were Given to Patient: Furosemide [Lasix] 80 mg PO BIDLX #60 tablet Nitroglycerin [Nitrostat] 0.4 mg SUBLINGUAL Q5M PRN #10 tablet PRN Reason: Cardiac/Chest Pain Ranolazine [Ranexa] 500 mg PO BID #60 tablet hydrALAZINE [Apresoline] 25 mg PO TID #90 tablet Other Amb Orders: Basic Metabolic Profile (BMP) Time Frame: 3 Days, Location: Laboratory Primary Care Physician: Jennifer Spicer DO [Primary Care Provider] - Please follow up with your Primary Care Physician in: Follow-up within 3-5 days to review admission and have BMP performed. Please Follow Up With: Joe Harden MD When: Follow-up within 1 week. Please Follow Up With: Marco Antonio Butler MD When: Please follow-up as requested per Cardiology or within 1-2 wk, may see TRAVEL GUIDE. Patient Instructions: What Is Heart Failure?, Heart Failure: Warning Signs of a Flare-Up, Heart Failure: Tracking Your Weight, Heart Failure: Being Active, Taking Medications for Your Heart, Discharge Instructions for Acute Kidney Injury Disposition: Home Minutes spent on discharge:: 35 Patient Condition:: Fair Medical Necessity - Tobacco Use Smoking Status: Former smoker Tobacco Use: Non-smoker Meaningful Use Info Meaningful Use Diagnoses (Choose all that apply): CHF - CHF AN/ARB ordered at discharge?: Yes Documented LVEF (%): 25 Code Visit Inpatient E&M: 60108 Disch Hosp
--- NOTE | 2018-01-07 12:58 | PN.RENAL_ITS ---
Subjective: no new complaints - Physical Exam General: Alert, Oriented x3, Cooperative HEENT: Atraumatic, PERRLA, EOMI, Normocephalic Neck: Supple, No JVD, Negative Carotid Bruits Lungs: Clear to auscultation, Normal air movement Cardiovascular: Regular rate, No murmurs Abdomen: Bowel Sounds Present, Soft, Non Tender Extremities: No edema, Capillary Refill Less than 3 Seconds Skin: No rashes, No breakdown Musculoskeletal: No Tenderness to Palpation of Joints or Extremities Neurological: Cranial nerves II-XII grossly intact Psych/Mental Status: Normal Affect, Appropriate Vital Signs Temp Pulse Resp BP Pulse Ox 98 F 52 L 15 126/64 H 98 01/07/18 11:39 01/07/18 12:52 01/07/18 12:52 01/07/18 12:52 01/07/18 12:52 Oxygen Flow Rate (L/min) 2 Oxygen Delivery Method Room Air Weight: 94.5 kg Body Mass Index (BMI) 32.1 Finger Stick Blood Glucose 213 Intake and Output for Last 24 Hours 01/05/18 01/06/18 01/07/18 23:59 23:59 23:59 Intake Total 900 / 900 1340 / 1340 420 / 420 Balance 900 / 900 1340 / 1340 420 / 420 Laboratory Tests Past 24 Hrs 01/07/18 01/07/18 01/07/18 05:24 05:24 05:24 WBC 7.1 RBC 4.32 L Hgb 12.6 L Hct 38.4 L MCV 88.9 MCH 29.2 MCHC 32.8 RDW 14.1 RDW Differential 45.5 H Plt Count 191 MPV 9.5 Immature Gran % (Auto) 0.600 Neut % (Auto) 71.7 H Lymph % (Auto) 14.6 L Dod[place] % (Auto) 10.5 H Eos % (Auto) 2.3 Baso % (Auto) 0.3 Absolute Neuts (auto) 5.1 Absolute Lymphs (auto) 1.03 Total Counted Not Reportable PT 16.4 H INR 1.3 APTT 29.3 Sodium 138 Potassium 3.5 Chloride 100 Carbon Dioxide 29.0 Anion Gap 9 BUN 48 H Creatinine 2.45 H Estim Creat Clear Calc 30.06 Est GFR (MDRD) Af Amer 34 L Est GFR (MDRD) Non-Af 28 L BUN/Creatinine Ratio 19.6 Glucose 145 H Calcium 8.3 L POC Glucose 01/07/18 01/07/18 01/06/18 10:45 07:03 21:22 POC Glucose 156 H 166 H 145 H 01/06/18 16:22 POC Glucose 176 H Medical Necessity - Tobacco Use Smoking Status: Former smoker Tobacco Use: Non-smoker Assessment/Plan All Active Problems (Last Reviewed 05/24/17 @ 15:10 by Melania Mendoza) Esophagitis determined by endoscopy (Acute ~05/06/17) Cardiogenic shock (Resolved ~06/08/16) Hypertensive emergency (Resolved) Abdominal pain (Resolved) Acute pulmonary edema (Resolved) Acute respiratory failure (Resolved) Atrial fibrillation with RVR (Resolved) Chest pain (Resolved) Elevated troponin (Resolved) Metabolic acidosis (Resolved) Shortness of breath (Resolved) YOMI CKD stage 3. Baseline creatinine as of last month is around 1.8 to 2.0. creatinine slowly worsening in setting of diuresis. CT abdomen from May did not show any hydronephrosis. there was however some perinephric stranding. UA showed proteinuria. can send for quantification as outpatient creatinine increase is likely CRS. HTN. BP was fairly high initially. now better with diuresis. Renal A dopplers negative. CHF. clinically better. continue lasix to 80 mg BID PO for now cardiac cath today did not show any new findings dc today will arrange follow up next week
[2018-01-07 15:15] LABS: Blood Gas Specimen Type VEN; VBG BASE EXCESS 7 mmol/L (-1.0-3.5); VBG Bicarbonate 31 mmol/L (22-26); VBG Oxygen Content 32 mmol/L (23-33); VBG PO2 35 mmHg (25-40); VBG SO2 70 % (50-70); VBG pCO2 42.2 mmHg (41-51); VBG pH 7.47 (7.32-7.42)
[2018-01-07 15:16] LABS: Base Excess 4 mmol/L (-2 to +2); Bicarbonate 27.6 mmol/L (22-26); Blood Gas Specimen Type ART; PO2 69 mmHG (75-100); SO2 95 % (95-99); Total Carbon Dioxide 29 mmol/L; pCO2 38.3 mmHg (35-45); pH 7.47 (7.35-7.45)
[2018-01-07 15:16] LABS: Blood Gas Specimen Type VEN; VBG BASE EXCESS 7 mmol/L (-1.0-3.5); VBG Bicarbonate 31 mmol/L (22-26); VBG Oxygen Content 32 mmol/L (23-33); VBG PO2 36 mmHg (25-40); VBG SO2 73 % (50-70); VBG pCO2 42.2 mmHg (41-51); VBG pH 7.47 (7.32-7.42)
--- NOTE | 2018-01-07 17:41 | CL.D_ITS ---
Patient Name: RYAN CUMMINS Study Date: 01/07/2018 Performing: Marco Antonio Butler MD Ht: 68.89 inches 175 cm : 1950 Wt: 209.44 lbs 95 kg Age: 67 Gender: male BSA: 2.1 PROCEDURE(S) PERFORMED OU79-FSH/LHC/COR/LV CLINICAL PROFILE AND INDICATIONS Indications: Stable Known CAD, LV Dysfunction, ACS > 24 hrs Heart Failure: NYHA Class: 3, Newly Diagnosed: No, Heart Failure Type: Systolic Stress/Imaging Stress/Image Study Performed: No Angina Classification Anginal Classification w/in 2 Weeks: CCS II CAD Presentations: Unstable angina. Other: dyspnea on exertion Comorbidities/Risk Factors: Hypertension Dyslipidemia Prior CHF Prior PCI CONCLUSIONS Non obstructive coronary arteries Right heart pressures - Normal The patient has normal pulmonary hemodynamics. RECOMMENDATIONS Risk factor modification Management as per referring Mill Tender Washing PFTS in 2 weeks. Restart Eliquis in 5 days. Manual sheath removal. Would not pursue PCI of distal LAD or RCA due to moderate mid LAD calcium and small caliber LAD, as w ell as extreme difficulty of delivering stents to RCA in 06/2016. Pt has challenging proximal curve i n RCA which required stent deployment in proximal RCA, which was intended for distal RCA at the time. Distal RCA stenosis has improved and does not appear to require stenting at this time. DESCRIPTION OF PROCEDURE The patient arrived to the procedure lab. The risks and benefits of the procedure as well as a full d escription of our services here and current unavailability of surgical backup were fully explained to the patient and/or their significant other prior to the catheterization. The Timeout was completed, verifying the correct patient and procedure. The patient's procedural site was prepped and draped in the usual fashion. Local anesthetic was given subcutaneously to right groin region with Lidocaine 2%. Using a modified Seldinger technique, arterial access was obtained via the right femoral artery, a 4 Fr sheath was inserted Venous access was obtained via the right femoral vein, an 8Fr sheath was inser margie. O2 saturations were then obtained. Thermal dilution cardiac outputs were then recorded. Left Mt triculography was performed in REESE projection using a 4 Fr. Pigtail catheter. Simultaneous pressures were then recorded. The Thermal dilution catheter was then removed. LV to AO pullback pressures were then recorded. Left Coronary Artery selective angiography was performed in multiple views using a 4 F r. JL5 catheter. Right Coronary Artery selective angiography was then performed in multiple views usi ng a 4 Fr. 3DRC catheter.The arterial sheath was pulled and manual compression applied until hemostas is is achieved.. The venous sheath was then pulled and manual compression applied until hemostasis ac hieved CORONARY ANGIOGRAPHY DOMINANCE: Right Dominant LEFT HEART ASSESSMENT Left Ventricular Ejection Fraction: by LV Gram 45 % Inferior Mid Hypokinesis - Mild Depressed Left Ventricular systolic function LVEDP: 7 mmHg Normal Left Ventricular End Diastolic Pressure RIGHT HEART ASSESSMENT Thermal CO: 4.74 Thermal CI: 2.26 PW: 11/10 6 PA: 35/14 18 RV: 32/0 0 RA: 08/09 1 PVR: 203 SVR: 1030 LEFT MAIN: 30 % Stenosis LEFT ANTERIOR DECENDING ARTERY: PROX LAD: Instent restenosis 10 % DISTAL LAD: Moderate calcification, 65 % Stenosis CIRCUMFLEX ARTERY: OM 1: Proximal - Instent restenosis 0 % RIGHT CORONARY ARTERY: PROX RCA: Instent restenosis 20 % MID RCA: Instent restenosis 30 % DISTAL RCA: 50 % Stenosis RT PLV: Mild luminal irregularities less than 30% RT PDA: Proximal - Mild luminal irregularities COMPLICATIONS No Complications PROCEDURE MEDICATIONS SUMMARY OF HEMODYNAMIC DATA Time AIR REST ECG 07:50:59 RA 08/09 (1) SV 08:16:11 RV 32/0, 0 08:16:47 PW 11/10 (6) PV 08:17:42 PA 35/14 (18) PA 08:17:55 LV 106/-12, 7 08:22:38 LV 108/-3, 7 08:22:44 LV 108/-4, 6 08:22:53 PA 34/14 (21) 08:22:53 LV 107/-3, 7 08:23:08 PW (14) 08:23:08 LV 107/-4, 6 08:23:14 PW 15 (12) 08:23:14 LV 100/-5, 5 08:23:42 RV 30/0, 5 08:23:42 LV 101/-6, 7 08:23:48 RV 30/1, 5 08:23:48 LV 102/-2, 15 08:25:05 LV 101/-2, 8 08:25:11 LVp 104/-7, 6 08:25:14 AOp 100/50 (68) 08:25:19 AO 75/51 (62) SA 08:27:14 Type SV CO (l/m) CI (l/m/ HR Time AIR REST Thermal 72.90 4.74 2.26 65 07:50:59 Label % O2 Pres/Loc Time AIR REST PA 72 PA 08:34:13 Signed By Marco Antonio Butler MD On 01/07/2018 8:48:51 AM Marco Antonio Butler MD
--- NOTE | 2018-01-10 11:22 | CASEMGMT ---
FOLLOW-UP CALL: Follow-up call placed to patient. No answer. Voicemail left with return contact information.
== END 2018-01-07 16:10 | disposition home or self-care (01) | DRG 286 ==
LOC: ED 09:01 → ICU 10:48 → PCU 01-04 08:35
PROVIDERS: Internal Medicine Cardiovascular Disease; Admitting Provider Internal Medicine; Emergency Provider Emergency Medicine; Family Provider Family Medicine; PCP Family Medicine; Visit Provider Family Medicine
DX: I13.0 Hypertensive heart and chronic kidney disease with heart failure and stage 1 through stage 4 chronic kidney disease, or unspecified chronic kidney disease (principal); I50.23 Acute on chronic systolic (congestive) heart failure; J96.01 Acute respiratory failure with hypoxia; E87.2 Acidosis; N17.9 Acute kidney failure, unspecified; E11.22 Type 2 diabetes mellitus with diabetic chronic kidney disease; I48.0 Paroxysmal atrial fibrillation; I25.5 Ischemic cardiomyopathy; E78.5 Hyperlipidemia, unspecified; I25.10 Atherosclerotic heart disease of native coronary artery without angina pectoris; N18.3 Chronic kidney disease, stage 3 (moderate); I27.21 Secondary pulmonary arterial hypertension; I51.3 Intracardiac thrombosis, not elsewhere classified; E66.9 Obesity, unspecified; D63.1 Anemia in chronic kidney disease; Z95.5 Presence of coronary angioplasty implant and graft; Z79.01 Long term (current) use of 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s; Z79.4 Long term (current) use of insulin; I25.2 Old myocardial infarction; Z68.32 Body mass index [BMI] 32.0-32.9, adult; Z87.891 Personal history of nicotine dependence; Z95.810 Presence of automatic (implantable) cardiac defibrillator; Z66 Do not resuscitate
CPT/HCPCS: 36415; 36600; 71045; 74018; 80048; 80061; 80069; 82803; 82962; 83605; 83735; 83880; 84484; 85025; 85610; 85730; 93005; 93460; 94002; 97116; 97162; 97165; 97530; 99251; 99285; J7030; A4216; C1751; C1769; C1894; G0463; J1940; Q9967

== ENCOUNTER → 2018-01-10 10:30 | Outpatient (CLI) | payer MEDICARE, SELFPAY ==
[2016-06-12 14:02] VITALS: BMI 29.7
[2018-01-10 11:46] LABS: Anion Gap 9 (5-15); BUN 28 mg/dL (7-18); BUN/Creat Ratio 13.1 RATIO (10-20); Chloride 98 mmol/L (98-107); Creatinine, Serum 2.14 mg/dL (0.70-1.30); EST Glomerular Filtration Rate 33 mL/min (>60); Est Glom Filt Rate - Afr Amer 40 mL/min (>60); Glucose 249 mg/dL (74-106); Potassium 4.1 mmol/L (3.5-5.1); Sodium Level 138 mmol/L (136-145)
== END ==
LOC: LAB 10:31
PROVIDERS: Internal Medicine; Family Provider Family Medicine; PCP Family Medicine; Referring Provider Family Medicine; Visit Provider Family Medicine
DX: I27.21 Secondary pulmonary arterial hypertension (principal); E11.9 Type 2 diabetes mellitus without complications; I25.10 Atherosclerotic heart disease of native coronary artery without angina pectoris; I48.0 Paroxysmal atrial fibrillation; I10 Essential (primary) hypertension; E78.5 Hyperlipidemia, unspecified; Z95.5 Presence of coronary angioplasty implant and graft
CPT/HCPCS: 36415; 80048

== ENCOUNTER 2018-01-11 09:05 | Emergency (ER) | payer MEDICARE, SELFPAY ==
[2016-06-12 14:02] VITALS: BMI 29.7
[2018-01-11 09:06] VITALS: BP 153/104; PULSE 130; RESP 14; TEMP 36.5; O2SAT 97; BMI 29.9
--- NOTE | 2018-01-11 09:23 | RAD_ITS ---
STUDY: X-RAY CHEST REASON FOR EXAM: Male, 67 years old. Hypertension. Cardiac catheterization last Wednesday. TECHNIQUE: Single AP upright portable chest view obtained. COMPARISON: Chest 01/03/2018. FINDINGS: Left pacemaker/defibrillator battery with single contiguous appearing intraventricular lead is seen, appears unchanged. EKG wires project over the chest. The lungs appear clear of active focal pulmonary consolidation air bronchograms, large pleural effusion or abnormally dilated poorly vascularity and expanded. There is no demonstrated pleural abnormality. Upper limits normal size heart for portable projection. Normal mediastinum and loco. Trachea near midline due to mild rotation. Normal visualized pulmonary arteries. Normal visualized aortic arch and descending thoracic aorta. Thoracic spine is partially obscured due to technical underpenetration of portable technique. Normal visualized ribs, clavicles and shoulders. There is no demonstrated abnormality of the visualized soft tissue structures of the upper abdomen. No subdiaphragmatic free air seen grossly. RAD/Chest 1 View (Portable) IMPRESSION: No active cardiopulmonary disease identified. No change position left pacemaker/defibrillator battery with single contiguous appearing intracardiac lead noted. Electronically Signed: Geovany Charlton, at 11:29 EDT Tel , Service support ,
--- NOTE | 2018-01-11 09:23 | EKG12_ITS ---
Test Reason : HTN Blood Pressure : / mmHG Vent. Rate : 139 BPM Atrial Rate : 139 BPM P-R Int : 110 ms QRS Dur : 112 ms QT Int : 324 ms P-R-T Axes : 044 -44 098 degrees QTc Int : 493 ms Sinus tachycardia with short TN Left axis deviation Inferior infarct , age undetermined Anterolateral infarct , age undetermined Abnormal ECG Confirmed by BELKIS METZ, JUANJOSE ([id number]), technical editor CANELO DIETRICH ([id number]) on 01/17/2018 3:49:03 PM Referred By: Luci Purvis Confirmed By:JUANJOSE TAMAYO MD
[2018-01-11 09:31] VITALS: BP 171/128; PULSE 134; RESP 22; O2SAT 96
[2018-01-11] MEDS: Aspirin 81 MG TAB.CHEW 324 MG PO (09:38)
[2018-01-11 09:44] LABS: Absolute Lymphocyte Count 1.37 X10^3/ul (0.83-4.51); Absolute Neutrophil Count 10.8 X10^3/uL (2.0-7.7); Basophil# 0.03 X10^3/uL; Basophil% 0.2 % (0-1); Eosinophil# 0.14 X10^3/uL; Hematocrit 50.5 % (40-54); Hemoglobin 16.6 g/dl (13.0-16.5); Lymphocyte # 1.37 X10^3/ul (4.0); Mean Corp Hgb Conc 32.9 g/gl (32-36); Mean Corpuscular Hgb 29.4 pg (27.0-32.0); Mean Corpuscular Volume 89.4 fL (80-94); Mean Platelet Vol. 9.2 fl (6.2-12.0); Monocyte# 1.29 X10^3/uL; Monocyte% 9.4 % (0-10); Neutrophil # 10.81 X10^3/uL (2.7-7.7); Platelet Count 242 K/mm3 (150-450); RBC Distribution Width CV 14.1 % (11.6-14.6); RBC Distribution Width SD 45.9 fl (35.1-43.9); Red Blood Count 5.65 M/mm3 (4.6-6.2); White Blood Count 13.7 K/mm3 (4.4-11.0)
[2018-01-11 09:45] LABS: POSITIVE COUNT NO; POSITIVE DIFFERENTIAL NO; POSITIVE MORPHOLOGY NO
[2018-01-11 09:57] LABS: Anion Gap 11 (5-15); BUN 29 mg/dL (7-18); BUN/Creat Ratio 13.5 RATIO (10-20); Calcium,Total 9.3 mg/dL (8.5-10.1); Chloride 98 mmol/L (98-107); Creatinine, Serum 2.15 mg/dL (0.70-1.30); EST Glomerular Filtration Rate 33 mL/min (>60); Est Glom Filt Rate - Afr Amer 40 mL/min (>60); Estimated Creatinine Clearance 34.25 ml/min; Glucose 213 mg/dL (74-106); Potassium 3.3 mmol/L (3.5-5.1); Sodium Level 138 mmol/L (136-145)
--- NOTE | 2018-01-11 10:11 | EKG12_ITS ---
Test Reason : REPEAT Blood Pressure : / mmHG Vent. Rate : 136 BPM Atrial Rate : 166 BPM P-R Int : 000 ms QRS Dur : 104 ms QT Int : 362 ms P-R-T Axes : 000 -44 086 degrees QTc Int : 544 ms Supraventricular tachycardia Left axis deviation Inferior infarct , age undetermined Anterolateral infarct , age undetermined Abnormal ECG Confirmed by BELKIS METZ, JUANJOSE ([id number]), editor book CANELO DIETRICH ([id number]) on 01/17/2018 3:49:22 PM Referred By: Luci Purvis Confirmed By:JUANJOSE TAMAYO MD
[2018-01-11 10:14] VITALS: BP 169/121; PULSE 134; RESP 17; O2SAT 95
[2018-01-11 11:09] VITALS: BP 159/107; PULSE 118; RESP 21; O2SAT 94
[2018-01-11] MEDS: Metoprolol Tartrate 5 MG/5 ML Vial IV (11:10)
--- NOTE | 2018-01-11 11:43 | ED.DEP ---
ED Disposition - Plan for ED Patient: Chief Complaint: Hypertension Instructions: ED HTN Established Referrals: Jennifer Spicer DO [Primary Care Provider] - Marco Antonio Butler MD [STAFF PHYSICIAN] -
--- NOTE | 2018-01-11 11:54 | ED.VISSUMM ---
- ER Visit Summary Date of Service: 01/11/18 Chief Complaint: Hypertension History of Present Illness: The patient is a 67 M presenting with elevated blood pressure. Patient states he has been checking his blood pressure and has been running high at home. He states it was 183/133 prior to arrival. He denies chest pain or shortness of breath. He complains of mild dizziness with no syncope. He was recently in the hospital and discharged on Wednesday. He had a heart cath prior to discharge with no new stents. Patient states that his medications were changed on discharge. He believes that he was supposed to decrease his hydralazine to 25 mg 3 times a day and discontinue Coreg. Physical Examination: Vitals are stable. Blood pressure 153/104, HR 130, Patient is afebrile. Alert no acute distress. HEENT exam is unremarkable. Neck is supple. Lungs are clear and equal bilaterally. Heart is regular and tachycardic Abdomen is soft nontender nondistended. Extremities are unremarkable. Skin is warm and dry. No focal neurologic deficit. Remainder of exam is unremarkable. Emergency Department Course and Treatment: EKG is sinus tachycardia rate of 139. Chest x-ray shows no acute process. CBC shows white count 13.7, hemoglobin 16.6. Chemistry showed potassium 3.3, glucose 213, BUN 29, creatinine 2.15. Troponin is indeterminate 0.072. This is decreased from previous. Patient is asymptomatic in the emergency department. Discussed with Dr. Butler. Patient's medications should be hydralazine 75 mg 3 times daily, Coreg 25 mg twice daily and Imdur 120 mg twice daily. Patient was given 1 dose of Lopressor in the emergency department. His repeat heart rate is 96. Blood pressure 125/80. Advised to follow up with primary care physician. Advised return to ED if worsening complaints. Disposition: Discharge home Impression: Hypertension This note was generated with [employer] dictation software. It may contain incorrect words, spelling, and punctuation that were not noted in review of the chart prior to signing ED Disposition - Plan for ED Patient: Chief Complaint: Hypertension Instructions: ED HTN Established Referrals: Marco Antonio Butler MD [STAFF PHYSICIAN] - Jennifer Spicer DO [Primary Care Provider] -
[2018-01-11 12:08] VITALS: BP 125/80; PULSE 89; RESP 22; O2SAT 96
== END 2018-01-11 12:09 | disposition home or self-care (01) ==
PROVIDERS: Emergency Provider Emergency Medicine; Family Provider Family Medicine; PCP Family Medicine
DX: I13.0 Hypertensive heart and chronic kidney disease with heart failure and stage 1 through stage 4 chronic kidney disease, or unspecified chronic kidney disease (principal); E11.22 Type 2 diabetes mellitus with diabetic chronic kidney disease; N18.9 Chronic kidney disease, unspecified; I50.9 Heart failure, unspecified; I25.10 Atherosclerotic heart disease of native coronary artery without angina pectoris; I25.2 Old myocardial infarction; I48.91 Unspecified atrial fibrillation; Z79.4 Long term (current) use of insulin; Z79.811 Long term (current) use of aromatase inhibitors; Z79.899 Other long term (current) drug therapy; Z87.891 Personal history of nicotine dependence
CPT/HCPCS: 71045; 80048; 84484; 85025; 93005; 96374; 99285; A4216

== ENCOUNTER 2018-05-17 17:27 | Observation (INO) | payer MEDICARE, SELFPAY ==
[2016-06-12 14:02] VITALS: BMI 29.7
[2018-05-12 14:14] VITALS: BMI 32.3
[2018-05-17] VITALS (9 sets, daily range): BP systolic 164–184; BP diastolic 86–98; PULSE 59–65; RESP 18–22; TEMP 36.8–36.9; O2SAT 94–99; BMI 32.2; BMI 30.9
--- NOTE | 2018-05-17 17:45 | EKG12_ITS ---
Test Reason : CP Blood Pressure : / mmHG Vent. Rate : 060 BPM Atrial Rate : 060 BPM P-R Int : 212 ms QRS Dur : 094 ms QT Int : 502 ms P-R-T Axes : 067 -39 022 degrees QTc Int : 502 ms Sinus rhythm with 1st degree A-V block Left axis deviation Inferior infarct , age undetermined Anteroseptal infarct , age undetermined Prolonged QT Abnormal ECG Confirmed by BELKIS METZ, JUANJOSE ([id number]), editor index CANELO DIETRICH ([id number]) on 05/20/2018 8:34:08 AM Referred By: KELY Confirmed By:JUANJOSE TAMAYO MD
--- NOTE | 2018-05-17 17:50 | RAD_ITS ---
STUDY: X-RAY CHEST REASON FOR EXAM: Male, 67 years old. Chest pain TECHNIQUE: Single AP portable view of the chest. COMPARISON: 01/11/2018 FINDINGS: The lungs are clear and expanded. There is no demonstrated pleural abnormality. Normal size heart. Pacer lead terminates in the right ventricle. Normal mediastinum and loco. Normal visualized pulmonary arteries. Normal visualized aortic arch and descending thoracic aorta. Normal visualized thoracic spine. Normal visualized ribs, clavicles, and shoulders. There is no demonstrated abnormality of the visualized soft tissue structures of the upper abdomen. RAD/Chest 1 View (Portable) IMPRESSION: No acute chest disease. Electronically Signed: Gurvinder Alex MD at 18:27 EST , Service support ,
[2018-05-17] MEDS: 0.9% Normal Saline 1,000 ML 150 ML IV (17:58)
[2018-05-17] MEDS: Aspirin 81 MG TAB.CHEW 162 MG PO (17:58)
[2018-05-17 18:01] LABS: Absolute Lymphocyte Count 0.98 X10^3/ul (0.83-4.51); Absolute Neutrophil Count 5.7 X10^3/uL (2.0-7.7); Basophil# 0.03 X10^3/uL; Basophil% 0.4 % (0-1); Eosinophils% 1.3 % (0-5); Hematocrit 47.1 % (40-54); Hemoglobin 15.1 g/dl (13.0-16.5); Lymphocyte # 0.98 X10^3/ul (4.0); Lymphocyte % 12.5 % (19-41); Mean Corp Hgb Conc 32.1 g/gl (32-36); Mean Corpuscular Hgb 29.2 pg (27.0-32.0); Mean Corpuscular Volume 90.9 fL (80-94); Mean Platelet Vol. 9.8 fl (6.2-12.0); Monocyte# 1.04 X10^3/uL; Monocyte% 13.2 % (0-10); Neutrophil # 5.68 X10^3/uL (2.7-7.7); Neutrophil % 72.1 % (47-70); Platelet Count 202 K/mm3 (150-450); RBC Distribution Width CV 14.5 % (11.6-14.6); RBC Distribution Width SD 48.2 fl (35.1-43.9); Red Blood Count 5.18 M/mm3 (4.6-6.2); White Blood Count 7.9 K/mm3 (4.4-11.0)
[2018-05-17 18:02] LABS: POSITIVE COUNT NO; POSITIVE DIFFERENTIAL NO; POSITIVE MORPHOLOGY NO
[2018-05-17 18:11] LABS: Anion Gap 6 (5-15); BUN 21 mg/dL (7-18); BUN/Creat Ratio 10.3 RATIO (10-20); Calcium,Total 8.4 mg/dL (8.5-10.1); Chloride 102 mmol/L (98-107); Creatinine, Serum 2.04 mg/dL (0.70-1.30); EST Glomerular Filtration Rate 35 mL/min (>60); Est Glom Filt Rate - Afr Amer 42 mL/min (>60); Glucose 119 mg/dL (74-106); Potassium 3.5 mmol/L (3.5-5.1); Sodium Level 138 mmol/L (136-145)
--- NOTE | 2018-05-17 18:48 | ED.RN ---
PT REPORTS CONTINUED CHEST ACHINESS RATES IT 05/15. DR. EDGE INFORMED. AWAITING FURTHER ORDERS WILL CONTINUE TO MONITOR.
--- NOTE | 2018-05-17 19:07 | PCM.HP.STD ---
Problem List (1) Chest pain Status: Acute Qualifiers: Chest pain type: unspecified Qualified Code(s): R07.9 - Chest pain, unspecified (2) Chronic systolic CHF (congestive heart failure) Status: Chronic (3) CAD (coronary artery disease) Status: Chronic Qualifiers: Coronary Disease-Associated Artery/Lesion type: [place] artery [place] vs. transplanted heart: [place] heart Associated angina: without angina Qualified Code(s): I25.10 - Atherosclerotic heart disease of [place] coronary artery without angina pectoris (4) Presence of implantable cardioverter-defibrillator (ICD) Status: Chronic (5) Left atrial thrombus Status: Chronic (6) Secondary pulmonary arterial hypertension Status: Chronic (7) History of coronary artery stent placement Status: Chronic Comment: SARA-RCA 06/15/2011, SARA-OM1 06/30/2011, SARA-LAD 08/20/2014, SARA-Prox- RCA 06/08/2016 (8) Paroxysmal atrial fibrillation Status: Chronic (9) Hypertension Status: Chronic Qualifiers: Hypertension type: essential hypertension Qualified Code(s): I10 - Essential (primary) hypertension (10) Hyperlipidemia Status: Chronic Qualifiers: Hyperlipidemia type: unspecified Qualified Code(s): E78.5 - Hyperlipidemia, unspecified (11) Type II diabetes mellitus Status: Chronic Qualifiers: Diabetes mellitus halfway insulin use: with long term care pharmacist use Diabetes mellitus complication status: with unspecified complications Qualified Code(s): E11.8 - Type 2 diabetes mellitus with unspecified complications; Z79.4 - salvage determiner (current) use of insulin; Z79.4 - care home (current) use of insulin; Z79.4 - care home (current) use of insulin; Z79.4 - care home (current) use of insulin (12) Anemia of chronic renal failure, stage 3 (moderate) Status: Chronic (13) Cardiomyopathy, ischemic Status: Chronic History of Present Illness Date of Admission: 05/17/18 Chief Complaint: Chest pain The patient is a 67 y/o M w/ PMHx: Diabetes mellitus type II, HTN, HLD, CAD s/p PCI, CKD stage III, AOCD, Chronic atrial fibrillation, History of Mural Thrombus on chronic anticoagulation, Chronic Systolic CHF/Ischemic Cardiomyopathy who presents to the [facility] ED on 05/17/18 with onset chest pain upon awakening, noted to be substernal/center, intermittent, lasting seconds only, described as pressure sensation, occasional radiation to the LUE, coming on independent of activity with mild diaphoresis with no nausea or emesis associated, initially rated 8/10, currently 2-3/10 in the ED. Discussed prior Cardiology recommendation for PFTs outpatient which he has not had performed. He notes he has been taking his BP regimen, but has had elevated BP despite. Work-up in the ED included T 98.2, heart rate 65, BP initially 184/92--> 174/98, respiratory rate 20, 94% on 2 L nasal cannula, CBC with W BC 7.9, hemoglobin 15.1, platelet 202 without market shift, BMP with BUN/Cr 21/2.04 (baseline Cr 1.8-2.4), glucose 119, troponin 0.023, CXR without acute cardiopulmonary disease, EKG w/ SR with similar changes to prior, no acute evidence of ischemia. In the ED patient administered aspirin, normal saline. Past Medical History Past Medical History (Chronic Problems): Chronic Problems (Last Reviewed 05/12/18 @ 14:22 by Lisette Elizondo) Chronic systolic CHF (congestive heart failure) (Chronic) CAD (coronary artery disease) (Chronic) Presence of implantable cardioverter-defibrillator (ICD) (Chronic) Type 2 diabetes mellitus without complications (Chronic) DDD (degenerative disc disease) (Chronic) 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) History of coronary artery stent placement (Chronic 06/08/16) SARA-RCA 06/15/2011, SARA-OM1 06/30/2011, SARA-LAD 08/20/2014, SARA-Prox- RCA 06/08/2016 Atherosclerosis of coronary artery of [place] heart without angina pectoris (Chronic) SARA-RCA 06/15/2011, SARA-OM1 06/30/2011, SARA-LAD 08/20/2014, SARA-Prox- RCA 06/08/2016 Paroxysmal atrial fibrillation (Chronic) Hypertension (Chronic) Hyperlipidemia (Chronic) Type II diabetes mellitus (Chronic) Hyperkalemia (Chronic) Chronic renal failure, stage 3 (moderate) (Chronic) STEMI (ST elevation myocardial infarction) (Chronic) Anemia of chronic renal failure, stage 3 (moderate) (Chronic) Obesity (BMI 30.0-34.9) (Chronic) Systolic CHF, acute on chronic (Chronic) Cardiomyopathy, ischemic (Chronic) Medical History: Medical History (Last Reviewed 05/12/18 @ 14:22 by Lisette Elizondo) Esophagitis determined by endoscopy (Acute) Onset Date: 05/06/17 K20.9 Type 2 diabetes mellitus without complications (Chronic) E11.9 DDD (degenerative disc disease) (Chronic) 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) I27.21 Atherosclerosis of coronary artery of [place] heart without angina pectoris (Chronic) I25.10 SARA-RCA 06/15/2011, SARA-OM1 06/30/2011, SARA-LAD 08/20/2014, SARA-Prox- RCA 06/08/2016 Paroxysmal atrial fibrillation (Chronic) I48.0 Hypertension (Chronic) I10 Hyperlipidemia (Chronic) E78.5 Type II diabetes mellitus (Chronic) E11.9 Hyperkalemia (Chronic) E87.5 Chronic renal failure, stage 3 (moderate) (Chronic) N18.3 STEMI (ST elevation myocardial infarction) (Chronic) Cardiogenic shock (Resolved) Onset Date: 06/08/16 R57.0 Hypertensive emergency (Resolved) I16.1 Anemia of chronic renal failure, stage 3 (moderate) (Chronic) N18.3, D63.1 Obesity (BMI 30.0-34.9) (Chronic) E66.9 Systolic CHF, acute on chronic (Chronic) I50.23 Cardiomyopathy, ischemic (Chronic) I25.5 History of cardioversion Onset Date: 04/10/16 Z98.890 01/14/15 (unsuccessful), 04/10/2016 Old myocardial infarction I25.2 inferior lateral and Anterior Apical Allergies atorvastatin calcium [From Lipitor] Allergy (Verified 05/05/18 10:42) Unknown diltiazem Allergy (Verified 05/05/18 10:42) Angioedema Home Medications: Ambulatory Orders Medication Instructions Recorded Aspirin [Aspirin, Baby] 81 mg PO DAILY@0800 12/28/14 clopidogrel 75 mg tablet 75 mg PO DAILY #30 tab 06/23/17 Losartan Potassium 100 mg PO QDAY 11/25/17 Isosorbide Mononitrate [Imdur] 120 mg PO BID #60 tab 11/28/17 Furosemide [Lasix] 80 mg PO BIDLX #60 tab 01/07/18 apixaban 2.5 mg tablet 2.5 mg PO BID 01/25/18 amiodarone 200 mg tablet 200 mg PO DAILY #90 tab 02/26/18 hydralazine 50 mg tablet 75 mg PO TID #270 tab 04/18/18 pantoprazole 40 mg tablet,delayed 40 mg PO BID #60 tab 04/29/18 release Novolin 70-30 100 Unit/ml Vial See Rx Instructions SC .COMPLEX 05/12/18 carvedilol 25 mg tablet 25 mg PO BID 05/12/18 loratadine 10 mg tablet 10 mg PO DAILY 05/12/18 pravastatin 40 mg tablet 40 mg PO DAILY 05/12/18 ranitidine 150 mg tablet 150 mg PO BID tab 05/12/18 Surgical History: Surgical History (Last Reviewed 05/12/18 @ 14:22 by Lisette Elizondo) Presence of implantable cardioverter-defibrillator (ICD) (Chronic) Z95.810 History of coronary artery stent placement (Chronic) Onset Date: 06/08/16 Z95.5 SARA-RCA 06/15/2011, SARA-OM1 06/30/2011, SARA-LAD 08/20/2014, SARA-Prox- RCA 06/08/2016 Surgical History: - - s/p stents, AICD. Psychiatric History: No pertinent psych hx Lives: With Family Smoking Status: Former smoker Tobacco Use: Non-smoker Alcohol: None Drugs: None - *Family History Maternal Family History: Family History (Last Reviewed 05/12/18 @ 14:22 by Lisette Elizondo) Brother Sudden cardiac History Items: - - Denies any marked history of HD, DM, CA. Paternal Family History: Family History (Last Reviewed 05/12/18 @ 14:22 by Lisette Elizondo) Brother Sudden cardiac History Items: - - Denies any marked history of HD, DM, CA. Sibling Family History: Family History (Last Reviewed 05/12/18 @ 14:22 by Lisette Elizondo) Brother Sudden cardiac History Items: Heart Disease - Sudden cardiac , unclear age. Review of Systems Constitutional: Reports: Weakness, Fatigue. Denies: Chills, Fever, Weight Change HEENT: Denies: Head Aches, Sinus Congestion, Sinus Drainage Cardiovascular: Reports: Chest Pain, Chest Pressure. Denies: Edema, Light Headedness, Orthopnea, Palpitations, Syncope Respiratory: Reports: Shortness of Breath, Shortness of breath upon exertion. Denies: Cough, Shortness of breath at rest, Sputum production Gastrointestinal: Denies: Abdominal Pain, Nausea, Vomiting Genitourinary: Denies: Dysuria Musculoskeletal: Denies: Joint Pain, Joint Tenderness Skin: Denies: Rash, Wounds Neurological: Denies: Numbness, Tingling, Focal weakness Psychiatric: Denies: Anxiety, Depression, Homicidal Ideations, Suicidal Ideations Hematologic/ Lymphatic: Reports: Anemia. Denies: Easy Bruising, Easy Bleeding VTE Information - Inpt Only VTE Present on Admission: No VTE Mechan Device Prophylaxis: SCD's VTE Pharm Prophylaxis ordered?: No Reason prophylaxis not ordered:: Treatment Not Indicated - on eliquis. Patient Problems: Active and Suspected Problems (Last Reviewed 05/12/18 @ 14:22 by Lisette Elizondo) Chest pain (Acute) Subjective: Seated upright in the ED bed, no acute distress, states currently chest pain improving. Objective: Physical Examination: General: awake, alert, oriented x 3 and cooperative, seated upright in the ED bed in no apparent distress. Skin: normal color, turgor, no icterus, cyanosis. HEENT: AT/NC, EOMI, PERRLA, mildly dry MM, no carotid bruits or JVD noted. Lungs: Diminished BS BL, > bases, moderate effort, no rales, ronchi or wheezing. Heart: Regular rate and rhythm; no gallop, rub audible. Abdomen: soft, obese, NTTP, ND, normal BS, no HSM. Extremities: no cyanosis, clubbing, or marked edema. Neurological: patient awake, alert, oriented x 3; cognitive function intact; pupils equally reactive to light and accomodation; cranial nerves II-XII grossly normal, moving all 4 extremities, no focal deficits, strength moderately globally decreased secondary to acute presentation. Psychiatric: affect appears normal, no acute evidence of depressive or anxiety feelings. - Physical Exam Vital Signs Temp Pulse Resp BP Pulse Ox 98.2 F 59 L 20 H 174/98 H 94 05/17/18 17:40 05/17/18 19:05 05/17/18 19:05 05/17/18 19:05 05/17/18 19:05 Oxygen Flow Rate (L/min) 2 Oxygen Delivery Method Nasal Cannula Weight: 218 lb 4.122 oz Body Mass Index (BMI) 32.2 Finger Stick Blood Glucose 213 Laboratory Tests Past 24 Hrs 05/17/18 05/17/18 17:40 17:40 WBC 7.9 RBC 5.18 Hgb 15.1 Hct 47.1 MCV 90.9 MCH 29.2 MCHC 32.1 RDW 14.5 RDW Differential 48.2 H Plt Count 202 MPV 9.8 Immature Gran % (Auto) 0.500 Neut % (Auto) 72.1 H Lymph % (Auto) 12.5 L [place] % (Auto) 13.2 H Eos % (Auto) 1.3 Baso % (Auto) 0.4 Absolute Neuts (auto) 5.7 Absolute Lymphs (auto) 0.98 Total Counted Not Reportable Sodium 138 Potassium 3.5 Chloride 102 Carbon Dioxide 30.0 Anion Gap 6 BUN 21 H Creatinine 2.04 H Estim Creat Clear Calc 36.10 Est GFR (MDRD) Af Amer 42 L Est GFR (MDRD) Non-Af 35 L BUN/Creatinine Ratio 10.3 Glucose 119 H Calcium 8.4 L Troponin I 0.023 Assessment/Plan All Active Problems (Last Reviewed 05/12/18 @ 14:22 by Lisette Elizondo) Chest pain (Acute) Esophagitis determined by endoscopy (Acute 05/06/17) Cardiogenic shock (Resolved 06/08/16) Hypertensive emergency (Resolved) Abdominal pain (Resolved) Acute pulmonary edema (Resolved) Acute respiratory failure (Resolved) Atrial fibrillation with RVR (Resolved) Chest pain (Resolved) Elevated troponin (Resolved) Metabolic acidosis (Resolved) Shortness of breath (Resolved) The patient is a 67 y/o M w/ PMHx: Diabetes mellitus type II, HTN, HLD, CAD s/p PCI, CKD stage III, AOCD, Chronic atrial fibrillation, History of Mural Thrombus on chronic anticoagulation, Chronic Systolic CHF/Ischemic Cardiomyopathy who presents to the [facility] ED on 05/17/18 with onset chest pain upon awakening, noted to be substernal/center, intermittent, lasting seconds only, described as pressure sensation, occasional radiation to the LUE, coming on independent of activity with mild diaphoresis with no nausea or emesis associated, initially rated 8/10, currently 2-3/10 in the ED. (1) Chest Pain: Work-up in the ED included T 98.2, heart rate 65, BP initially 184/92--> 174/98, respiratory rate 20, 94% on 2 L nasal cannula, CBC with W BC 7.9, hemoglobin 15.1, platelet 202 without market shift, BMP with BUN/Cr 21/2.04 (baseline Cr 1.8-2.4), glucose 119, troponin 0.023, CXR without acute cardiopulmonary disease, EKG w/ SR with similar changes to prior, no acute evidence of ischemia. In the ED patient administered aspirin, normal saline. Recent 01/07/18 Cardiac catheterization w/ non obstructive coronary arteries, normal right heart pressures, normal pulmonary hemodynamics forms per Dr. Butler with recommendations for risk factor modification, recommendation for PFTs in 2 weeks, reinitiation of Eliquis, recommendation to avoid pursuing PCI of distal LAD or RCA due to moderate mid LAD calcium and small caliber LAD, as well as extreme difficulty of delivering stents to RCA in 06/2016 with noted challenging proximal curve in RCA which required stent deployment in proximal RCA intended for distal RCA at the time w/ noted improvement of distal RCA stenosis with no appearance of needed stent. Will admit to PCU, place on a monitored bed to assure no acute myocardial infarction with serial cardiac enzymes and EKGs. Given timeline will not pursue repeat stress testing with recent cardiac catheterization only ~ 4 months prior. Re-assess in AM and may also consider Cardiology input for possible medication adjustments. ASA, NG, morphine. (2) Chronic Systolic CHF, Ischemic Cardiomyopathy: Most recent ECHO noted 05/22/17 w/ normal LV size, moderately severe segmental systolic dysfunction, EF 25%, mild TBI. Cardiology consulted, following. Planned Cardiac catheterization on 01/07/18 given need for Eliquis hold. (3) CKD stage III: Working function over 2018 from review, admission BUN/Cr 21/2.04, prior baseline lower, now appears 1.8-2.4. Following w/ nephrology outpatient. (4) Obesity: Weight loss and lifestyle changes encouraged. (5) Hypertension: Continue home regimen coreg, ARB, isosorbide, hydralazine, lasix, PRN hydralazine. (6) Hyperlipidemia: Maintain on home statin regimen. Most recent FLP 01/04/18 w/ TG 174, TChol 131, LDL 60, VLDL 35, HDL 36. (7) Diabetes mellitus type II: Hold oral home regimen, continue home insulin regimen, ADA diet, accu checks w/ ISS. (8) PAF: Rate controlled, maintained on amiodarone and home eliquis. (9) AOCD: Admission Hgb 15.1, stable, trend. (10) History of Mural Thrombus on chronic anticoagulation: Maintained on eliquis therapy. (11) DVT Prophylaxis: SCDs, eliquis. (12) CODE status: Discussed CODE status at length including difference between FULL code, DNR-CCA and DNR-CC status. Following discussions about the differences in these status, requested Full Code status. Daughter is HCPOA. Advanced Care Planning Face to Face Time: 16 minutes. Code Visit OBSV E&M: 81867 Initial observation care L3 Procedures: 54374 Advncd Care Plan 30 Min
--- NOTE | 2018-05-17 19:08 | ED.VISSUMM ---
- ER Visit Summary Date of Service: 05/17/18 Chief Complaint: [Chest pain] History of Present Illness: The patient is a 67 M [presents to the emergency department complaint of chest pain that started this morning. Patient states that he has had intermittent pain throughout the day lasting couple of minutes. He describes it as heaviness or tightness in the upper chest radiating at times into his left arm. Patient denies any diaphoresis. He denies any shortness of breath. He denies any nausea or vomiting. Patient does have a history of coronary artery disease, CHF, diabetes, hypertension, high cholesterol, history of A. fib, history of implantable cardiac defibrillator. Patient's last heart catheterization was in December 2017. Patient had a cardiac stent placed in early 2017.] Physical Examination: [HEENT-PERRLA, EOMI. Cranial nerves II through XII grossly intact. TMs clear. Mucous membranes moist. No adenopathy. Cardiovascular-regular rate and rhythm without murmur or ectopy Lungs-clear to auscultation, chest wall stable without crepitus or subcu emphysema Abdomen-normoactive bowel sounds, soft, nontender, no rebound or rigidity, no peritoneal signs. Extremities-intact ?4, normal range of motion, normal pulses, atraumatic] Test Results: [EKG obtained showed sinus rhythm with a ventricular rate 60 bpm with old anterior septal infarct as well as old inferior infarct. CBC with differential obtained showed no white blood cell count of 7.9, hemoglobin 15, hematocrit 47, placed 262. Chemistries unremarkable. BUN was 21 creatinine 2.04. Troponin is 0.023. Chest x-ray showed nothing acute.] Emergency Department Course and Treatment: [Patient received aspirin in the emergency department and he was initially pain-free.] Treatment Plan: [Patient would be admitted for further workup and evaluation of chest pain] Disposition: [Admit] Impression: [Chest pain-rule out acute coronary syndrome] This note was generated with [employer]en[employer] dictation software. It may contain incorrect words, spelling, and punctuation that were not noted in review of the chart prior to signing ED Disposition - Plan for ED Patient: Referrals: Jennifer Spicer DO [Primary Care Provider] -
--- NOTE | 2018-05-17 19:18 | HP.PCM_ITS ---
Problem List (1) Chest pain Status: Acute Qualifiers: Chest pain type: unspecified Qualified Code(s): R07.9 - Chest pain, unspecified (2) Chronic systolic CHF (congestive heart failure) Status: Chronic (3) CAD (coronary artery disease) Status: Chronic Qualifiers: Coronary Disease-Associated Artery/Lesion type: [place] artery [place] vs. transplanted heart: [place] heart Associated angina: without angina Qualified Code(s): I25.10 - Atherosclerotic heart disease of [place] coronary artery without angina pectoris (4) Presence of implantable cardioverter-defibrillator (ICD) Status: Chronic (5) Left atrial thrombus Status: Chronic (6) Secondary pulmonary arterial hypertension Status: Chronic (7) History of coronary artery stent placement Status: Chronic Comment: SARA-RCA 06/15/2011, SARA-OM1 06/30/2011, SARA-LAD 08/20/2014, SARA-Prox- RCA 06/08/2016 (8) Paroxysmal atrial fibrillation Status: Chronic (9) Hypertension Status: Chronic Qualifiers: Hypertension type: essential hypertension Qualified Code(s): I10 - Essential (primary) hypertension (10) Hyperlipidemia Status: Chronic Qualifiers: Hyperlipidemia type: unspecified Qualified Code(s): E78.5 - Hyperlipidemia, unspecified (11) Type II diabetes mellitus Status: Chronic Qualifiers: Diabetes mellitus penitentiary insulin use: with termite control technician use Diabetes mellitus complication status: with unspecified complications Qualified Code(s): E11.8 - Type 2 diabetes mellitus with unspecified complications; Z79.4 - terminal computer operator (current) use of insulin; Z79.4 - prison (current) use of insulin; Z79.4 - prison (current) use of insulin; Z79.4 - prison (current) use of insulin (12) Anemia of chronic renal failure, stage 3 (moderate) Status: Chronic (13) Cardiomyopathy, ischemic Status: Chronic History of Present Illness Date of Admission: 05/17/18 Chief Complaint: Chest pain The patient is a 67 y/o M w/ PMHx: Diabetes mellitus type II, HTN, HLD, CAD s/p PCI, CKD stage III, AOCD, Chronic atrial fibrillation, History of Mural Thrombus on chronic anticoagulation, Chronic Systolic CHF/Ischemic Cardiomyopathy who presents to the [facility] ED on 05/17/18 with onset chest pain upon awakening, noted to be substernal/center, intermittent, lasting seconds only, described as pressure sensation, occasional radiation to the LUE, coming on independent of activity with mild diaphoresis with no nausea or emesis associated, initially rated 8/10, currently 2-3/10 in the ED. Discussed prior Cardiology recommendation for PFTs outpatient which he has not had performed. He notes he has been taking his BP regimen, but has had elevated BP despite. Work-up in the ED included T 98.2, heart rate 65, BP initially 184/92--> 174/98, respiratory rate 20, 94% on 2 L nasal cannula, CBC with W BC 7.9, hemoglobin 15.1, platelet 202 without market shift, BMP with BUN/Cr 21/2.04 (baseline Cr 1.8-2.4), glucose 119, troponin 0.023, CXR without acute cardiopulmonary disease, EKG w/ SR with similar changes to prior, no acute evidence of ischemia. In the ED patient administered aspirin, normal saline. Past Medical History Past Medical History (Chronic Problems): Chronic Problems (Last Reviewed 05/12/18 @ 14:22 by Lisette Elizondo) Chronic systolic CHF (congestive heart failure) (Chronic) CAD (coronary artery disease) (Chronic) Presence of implantable cardioverter-defibrillator (ICD) (Chronic) Type 2 diabetes mellitus without complications (Chronic) DDD (degenerative disc disease) (Chronic) 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) History of coronary artery stent placement (Chronic 06/08/16) SARA-RCA 06/15/2011, SARA-OM1 06/30/2011, SARA-LAD 08/20/2014, SARA-Prox- RCA 06/08/2016 Atherosclerosis of coronary artery of [place] heart without angina pectoris (Chronic) SARA-RCA 06/15/2011, SARA-OM1 06/30/2011, SARA-LAD 08/20/2014, SARA-Prox- RCA 06/08/2016 Paroxysmal atrial fibrillation (Chronic) Hypertension (Chronic) Hyperlipidemia (Chronic) Type II diabetes mellitus (Chronic) Hyperkalemia (Chronic) Chronic renal failure, stage 3 (moderate) (Chronic) STEMI (ST elevation myocardial infarction) (Chronic) Anemia of chronic renal failure, stage 3 (moderate) (Chronic) Obesity (BMI 30.0-34.9) (Chronic) Systolic CHF, acute on chronic (Chronic) Cardiomyopathy, ischemic (Chronic) Medical History: Medical History (Last Reviewed 05/12/18 @ 14:22 by Lisette Elizondo) Esophagitis determined by endoscopy (Acute) Onset Date: 05/06/17 K20.9 Type 2 diabetes mellitus without complications (Chronic) E11.9 DDD (degenerative disc disease) (Chronic) 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) I27.21 Atherosclerosis of coronary artery of [place] heart without angina pectoris (Chronic) I25.10 SARA-RCA 06/15/2011, SARA-OM1 06/30/2011, SARA-LAD 08/20/2014, SARA-Prox- RCA 06/08/2016 Paroxysmal atrial fibrillation (Chronic) I48.0 Hypertension (Chronic) I10 Hyperlipidemia (Chronic) E78.5 Type II diabetes mellitus (Chronic) E11.9 Hyperkalemia (Chronic) E87.5 Chronic renal failure, stage 3 (moderate) (Chronic) N18.3 STEMI (ST elevation myocardial infarction) (Chronic) Cardiogenic shock (Resolved) Onset Date: 06/08/16 R57.0 Hypertensive emergency (Resolved) I16.1 Anemia of chronic renal failure, stage 3 (moderate) (Chronic) N18.3, D63.1 Obesity (BMI 30.0-34.9) (Chronic) E66.9 Systolic CHF, acute on chronic (Chronic) I50.23 Cardiomyopathy, ischemic (Chronic) I25.5 History of cardioversion Onset Date: 04/10/16 Z98.890 01/14/15 (unsuccessful), 04/10/2016 Old myocardial infarction I25.2 inferior lateral and Anterior Apical Allergies atorvastatin calcium [From Lipitor] Allergy (Verified 05/05/18 10:42) Unknown diltiazem Allergy (Verified 05/05/18 10:42) Angioedema Home Medications: Ambulatory Orders Medication Instructions Recorded Aspirin [Aspirin, Baby] 81 mg PO DAILY@0800 12/28/14 clopidogrel 75 mg tablet 75 mg PO DAILY #30 tab 06/23/17 Losartan Potassium 100 mg PO QDAY 11/25/17 Isosorbide Mononitrate [Imdur] 120 mg PO BID #60 tab 11/28/17 Furosemide [Lasix] 80 mg PO BIDLX #60 tab 01/07/18 apixaban 2.5 mg tablet 2.5 mg PO BID 01/25/18 amiodarone 200 mg tablet 200 mg PO DAILY #90 tab 02/26/18 hydralazine 50 mg tablet 75 mg PO TID #270 tab 04/18/18 pantoprazole 40 mg tablet,delayed 40 mg PO BID #60 tab 04/29/18 release Novolin 70-30 100 Unit/ml Vial See Rx Instructions SC .COMPLEX 05/12/18 carvedilol 25 mg tablet 25 mg PO BID 05/12/18 loratadine 10 mg tablet 10 mg PO DAILY 05/12/18 pravastatin 40 mg tablet 40 mg PO DAILY 05/12/18 ranitidine 150 mg tablet 150 mg PO BID tab 05/12/18 Surgical History: Surgical History (Last Reviewed 05/12/18 @ 14:22 by Lisette Elizondo) Presence of implantable cardioverter-defibrillator (ICD) (Chronic) Z95.810 History of coronary artery stent placement (Chronic) Onset Date: 06/08/16 Z95.5 SARA-RCA 06/15/2011, SARA-OM1 06/30/2011, SARA-LAD 08/20/2014, SARA-Prox- RCA 06/08/2016 Surgical History: - - s/p stents, AICD. Psychiatric History: No pertinent psych hx Lives: With Family Smoking Status: Former smoker Tobacco Use: Non-smoker Alcohol: None Drugs: None - *Family History Maternal Family History: Family History (Last Reviewed 05/12/18 @ 14:22 by Lisette Elizondo) Brother Sudden cardiac History Items: - - Denies any marked history of HD, DM, CA. Paternal Family History: Family History (Last Reviewed 05/12/18 @ 14:22 by Lisette Elizondo) Brother Sudden cardiac History Items: - - Denies any marked history of HD, DM, CA. Sibling Family History: Family History (Last Reviewed 05/12/18 @ 14:22 by Lisette Elizondo) Brother Sudden cardiac History Items: Heart Disease - Sudden cardiac , unclear age. Review of Systems Constitutional: Reports: Weakness, Fatigue. Denies: Chills, Fever, Weight Change HEENT: Denies: Head Aches, Sinus Congestion, Sinus Drainage Cardiovascular: Reports: Chest Pain, Chest Pressure. Denies: Edema, Light Headedness, Orthopnea, Palpitations, Syncope Respiratory: Reports: Shortness of Breath, Shortness of breath upon exertion. Denies: Cough, Shortness of breath at rest, Sputum production Gastrointestinal: Denies: Abdominal Pain, Nausea, Vomiting Genitourinary: Denies: Dysuria Musculoskeletal: Denies: Joint Pain, Joint Tenderness Skin: Denies: Rash, Wounds Neurological: Denies: Numbness, Tingling, Focal weakness Psychiatric: Denies: Anxiety, Depression, Homicidal Ideations, Suicidal Ideations Hematologic/ Lymphatic: Reports: Anemia. Denies: Easy Bruising, Easy Bleeding VTE Information - Inpt Only VTE Present on Admission: No VTE Mechan Device Prophylaxis: SCD's VTE Pharm Prophylaxis ordered?: No Reason prophylaxis not ordered:: Treatment Not Indicated - on eliquis. Patient Problems: Active and Suspected Problems (Last Reviewed 05/12/18 @ 14:22 by Lisette Elizondo) Chest pain (Acute) Subjective: Seated upright in the ED bed, no acute distress, states currently chest pain improving. Objective: Physical Examination: General: awake, alert, oriented x 3 and cooperative, seated upright in the ED bed in no apparent distress. Skin: normal color, turgor, no icterus, cyanosis. HEENT: AT/NC, EOMI, PERRLA, mildly dry MM, no carotid bruits or JVD noted. Lungs: Diminished BS BL, > bases, moderate effort, no rales, ronchi or wheezing. Heart: Regular rate and rhythm; no gallop, rub audible. Abdomen: soft, obese, NTTP, ND, normal BS, no HSM. Extremities: no cyanosis, clubbing, or marked edema. Neurological: patient awake, alert, oriented x 3; cognitive function intact; pupils equally reactive to light and accomodation; cranial nerves II-XII grossly normal, moving all 4 extremities, no focal deficits, strength moderately globally decreased secondary to acute presentation. Psychiatric: affect appears normal, no acute evidence of depressive or anxiety feelings. - Physical Exam Vital Signs Temp Pulse Resp BP Pulse Ox 98.2 F 59 L 20 H 174/98 H 94 05/17/18 17:40 05/17/18 19:05 05/17/18 19:05 05/17/18 19:05 05/17/18 19:05 Oxygen Flow Rate (L/min) 2 Oxygen Delivery Method Nasal Cannula Weight: 218 lb 4.122 oz Body Mass Index (BMI) 32.2 Finger Stick Blood Glucose 213 Laboratory Tests Past 24 Hrs 05/17/18 05/17/18 17:40 17:40 WBC 7.9 RBC 5.18 Hgb 15.1 Hct 47.1 MCV 90.9 MCH 29.2 MCHC 32.1 RDW 14.5 RDW Differential 48.2 H Plt Count 202 MPV 9.8 Immature Gran % (Auto) 0.500 Neut % (Auto) 72.1 H Lymph % (Auto) 12.5 L [place] % (Auto) 13.2 H Eos % (Auto) 1.3 Baso % (Auto) 0.4 Absolute Neuts (auto) 5.7 Absolute Lymphs (auto) 0.98 Total Counted Not Reportable Sodium 138 Potassium 3.5 Chloride 102 Carbon Dioxide 30.0 Anion Gap 6 BUN 21 H Creatinine 2.04 H Estim Creat Clear Calc 36.10 Est GFR (MDRD) Af Amer 42 L Est GFR (MDRD) Non-Af 35 L BUN/Creatinine Ratio 10.3 Glucose 119 H Calcium 8.4 L Troponin I 0.023 Assessment/Plan All Active Problems (Last Reviewed 05/12/18 @ 14:22 by Lisette Elizondo) Chest pain (Acute) Esophagitis determined by endoscopy (Acute 05/06/17) Cardiogenic shock (Resolved 06/08/16) Hypertensive emergency (Resolved) Abdominal pain (Resolved) Acute pulmonary edema (Resolved) Acute respiratory failure (Resolved) Atrial fibrillation with RVR (Resolved) Chest pain (Resolved) Elevated troponin (Resolved) Metabolic acidosis (Resolved) Shortness of breath (Resolved) The patient is a 67 y/o M w/ PMHx: Diabetes mellitus type II, HTN, HLD, CAD s/p PCI, CKD stage III, AOCD, Chronic atrial fibrillation, History of Mural Thrombus on chronic anticoagulation, Chronic Systolic CHF/Ischemic Cardiomyopathy who presents to the [facility] ED on 05/17/18 with onset chest pain upon awakening, noted to be substernal/center, intermittent, lasting seconds only, described as pressure sensation, occasional radiation to the LUE, coming on independent of activity with mild diaphoresis with no nausea or emesis associated, initially rated 8/10, currently 2-3/10 in the ED. (1) Chest Pain: Work-up in the ED included T 98.2, heart rate 65, BP initially 184/92--> 174/98, respiratory rate 20, 94% on 2 L nasal cannula, CBC with W BC 7.9, hemoglobin 15.1, platelet 202 without market shift, BMP with BUN/Cr 21/2.04 (baseline Cr 1.8-2.4), glucose 119, troponin 0.023, CXR without acute cardiopulmonary disease, EKG w/ SR with similar changes to prior, no acute evidence of ischemia. In the ED patient administered aspirin, normal saline. Recent 01/07/18 Cardiac catheterization w/ non obstructive coronary arteries, normal right heart pressures, normal pulmonary hemodynamics forms per Dr. Butler with recommendations for risk factor modification, recommendation for PFTs in 2 weeks, reinitiation of Eliquis, recommendation to avoid pursuing PCI of distal LAD or RCA due to moderate mid LAD calcium and small caliber LAD, as well as extreme difficulty of delivering stents to RCA in 06/2016 with noted challenging proximal curve in RCA which required stent deployment in proximal RCA intended for distal RCA at the time w/ noted improvement of distal RCA stenosis with no appearance of needed stent. Will admit to PCU, place on a monitored bed to assure no acute myocardial infarction with serial cardiac enzymes and EKGs. Given timeline will not pursue repeat stress testing with recent cardiac catheterization only ~ 4 months prior. Re-assess in AM and may also consider Cardiology input for possible medication adjustments. ASA, NG, morphine. (2) Chronic Systolic CHF, Ischemic Cardiomyopathy: Most recent ECHO noted 05/22/17 w/ normal LV size, moderately severe segmental systolic dysfunction, EF 25%, mild TBI. Cardiology consulted, following. Planned Cardiac catheterization on 01/07/18 given need for Eliquis hold. (3) CKD stage III: Working function over 2018 from review, admission BUN/Cr 21/2.04, prior baseline lower, now appears 1.8-2.4. Following w/ nephrology outpatient. (4) Obesity: Weight loss and lifestyle changes encouraged. (5) Hypertension: Continue home regimen coreg, ARB, isosorbide, hydralazine, lasix, PRN hydralazine. (6) Hyperlipidemia: Maintain on home statin regimen. Most recent FLP 01/04/18 w/ TG 174, TChol 131, LDL 60, VLDL 35, HDL 36. (7) Diabetes mellitus type II: Hold oral home regimen, continue home insulin regimen, ADA diet, accu checks w/ ISS. (8) PAF: Rate controlled, maintained on amiodarone and home eliquis. (9) AOCD: Admission Hgb 15.1, stable, trend. (10) History of Mural Thrombus on chronic anticoagulation: Maintained on eliquis therapy. (11) DVT Prophylaxis: SCDs, eliquis. (12) CODE status: Discussed CODE status at length including difference between FULL code, DNR-CCA and DNR-CC status. Following discussions about the differences in these status, requested Full Code status. Daughter is HCPOA. Advanced Care Planning Face to Face Time: 16 minutes. Code Visit OBSV E&M: 84482 Initial observation care L3 Procedures: 93869 Advncd Care Plan 30 Min
--- NOTE | 2018-05-17 20:06 | EKG12_ITS ---
Test Reason : CP REPEAT Blood Pressure : / mmHG Vent. Rate : 058 BPM Atrial Rate : 058 BPM P-R Int : 206 ms QRS Dur : 100 ms QT Int : 482 ms P-R-T Axes : 049 -39 012 degrees QTc Int : 473 ms Sinus bradycardia Left axis deviation Inferior infarct , age undetermined Anteroseptal infarct , age undetermined Abnormal ECG When compared with ECG of 17-MAY-2018 17:51, MANUAL COMPARISON REQUIRED, DATA IS UNCONFIRMED Confirmed by BELKIS METZ, JUANJOSE ([id number]), design editor CANELO DIETRICH ([id number]) on 05/20/2018 9:22:31 AM Referred By: Confirmed By:JUANJOSE TAMAYO MD
[2018-05-17] MEDS: Insulin Human 75/25 Kwickpen 38 UNIT SC (22:05)
[2018-05-17] MEDS: hydrALAZINE 25 MG Tablet 75 MG PO (22:06)
[2018-05-17] MEDS: APIXABAN 2.5 MG TABLET PO (22:07)
[2018-05-17] MEDS: Carvedilol 25 MG Tablet PO (22:07)
[2018-05-17] MEDS: Pravastatin 40 MG Tablet PO (22:07)
[2018-05-17] MEDS: Pantoprazole Sodium 20 MG Tablet PO (22:13)
[2018-05-17 22:21] LABS: Bedside Glucose 116 mg/dL (70-110)
[2018-05-18] VITALS (18 sets, daily range): BP systolic 103–154; BP diastolic 64–85; PULSE 49–63; RESP 14–18; TEMP 36.4–37.2; O2SAT 92–96
--- NOTE | 2018-05-18 05:55 | EKG12_ITS ---
Test Reason : MORNING EKG Blood Pressure : / mmHG Vent. Rate : 050 BPM Atrial Rate : 050 BPM P-R Int : 218 ms QRS Dur : 094 ms QT Int : 558 ms P-R-T Axes : 067 -32 039 degrees QTc Int : 508 ms Sinus bradycardia with 1st degree A-V block Left axis deviation Inferior infarct , age undetermined Anterolateral infarct , age undetermined Abnormal ECG When compared with ECG of 17-MAY-2018 20:02, MANUAL COMPARISON REQUIRED, DATA IS UNCONFIRMED Confirmed by BELKIS METZ, JUANJOSE ([id number]), advertising editor CANELO DIETRICH ([id number]) on 05/20/2018 9:20:23 AM Referred By: YOLANDA Confirmed By:JUANJOSE TAMAYO MD
[2018-05-18] MEDS: hydrALAZINE 25 MG Tablet 75 MG PO ×3 (05:56→21:00)
[2018-05-18 06:23] LABS: Hematocrit 45.9 % (40-54); Hemoglobin 14.2 g/dl (13.0-16.5); Mean Corp Hgb Conc 30.9 g/gl (32-36); Mean Corpuscular Volume 93.7 fL (80-94); Mean Platelet Vol. 9.7 fl (6.2-12.0); Platelet Count 164 K/mm3 (150-450); RBC Distribution Width CV 14.7 % (11.6-14.6); RBC Distribution Width SD 49.7 fl (35.1-43.9); White Blood Count 9.2 K/mm3 (4.4-11.0)
[2018-05-18 06:29] LABS: Scan Indicated on CBC? Y/N NO
[2018-05-18 06:40] LABS: AST(SGOT) 17 U/L (15-37); Alanine Aminotransfer ALT/SGPT 26 U/L (16-61); Albumin, Serum 3.6 g/dL (3.2-5.0); Alkaline Phosphatase 53 U/L (45-117); Anion Gap 8 (5-15); BUN 23 mg/dL (7-18); BUN/Creat Ratio 10.4 RATIO (10-20); Calcium,Total 8.1 mg/dL (8.5-10.1); Chloride 103 mmol/L (98-107); Creatinine, Serum 2.22 mg/dL (0.70-1.30); EST Glomerular Filtration Rate 32 mL/min (>60); Est Glom Filt Rate - Afr Amer 38 mL/min (>60); Estimated Creatinine Clearance 33.17 ml/min; Globulin 3.5 g/dL (2.2-4.2); Glucose 60 mg/dL (74-106); Potassium 3.3 mmol/L (3.5-5.1); Protein, Total 7.1 g/dL (6.4-8.2); Sodium Level 143 mmol/L (136-145)
--- NOTE | 2018-05-18 06:58 | PN_ITS ---
Patient Problems: Active and Suspected Problems (Last Reviewed 05/12/18 @ 14:22 by Lisette Elizondo) Chest pain (Acute) Subjective: 67 YO male with aq PMH of CAD, PCI, ischemic CM with a 25% EF, mural thrombus on Eliquis, AF, obesity, HTN, HLD - Physical Exam Vital Signs Temp Pulse Resp BP Pulse Ox 98.9 F 60 18 131/72 H 92 05/18/18 05:54 05/18/18 05:56 05/18/18 05:54 05/18/18 05:54 05/18/18 05:54 Oxygen Flow Rate (L/min) 2 Oxygen Delivery Method Room Air Weight: 209 lb 14.081 oz Body Mass Index (BMI) 30.9 Finger Stick Blood Glucose 213 Intake and Output for Last 24 Hours 05/16/18 05/17/18 05/18/18 23:59 23:59 23:59 Intake Total 720 / 720 Balance 720 / 720 Laboratory Tests Past 24 Hrs 05/17/18 05/17/18 05/17/18 17:40 17:40 20:30 WBC 7.9 RBC 5.18 Hgb 15.1 Hct 47.1 MCV 90.9 MCH 29.2 MCHC 32.1 RDW 14.5 RDW Differential 48.2 H Plt Count 202 MPV 9.8 Immature Gran % (Auto) 0.500 Neut % (Auto) 72.1 H Lymph % (Auto) 12.5 L [place] % (Auto) 13.2 H Eos % (Auto) 1.3 Baso % (Auto) 0.4 Absolute Neuts (auto) 5.7 Absolute Lymphs (auto) 0.98 Total Counted Not Reportable Sodium 138 Potassium 3.5 Chloride 102 Carbon Dioxide 30.0 Anion Gap 6 BUN 21 H Creatinine 2.04 H Estim Creat Clear Calc 36.10 Est GFR (MDRD) Af Amer 42 L Est GFR (MDRD) Non-Af 35 L BUN/Creatinine Ratio 10.3 Glucose 119 H Calcium 8.4 L Magnesium 2.0 Total Bilirubin AST ALT Alkaline Phosphatase Troponin I 0.023 0.016 Total Protein Albumin Globulin Albumin/Globulin Ratio 05/17/18 05/18/18 05/18/18 23:32 06:10 06:10 WBC 9.2 RBC 4.90 Hgb 14.2 Hct 45.9 MCV 93.7 MCH 29.0 MCHC 30.9 L RDW 14.7 H RDW Differential 49.7 H Plt Count 164 MPV 9.7 Immature Gran % (Auto) Neut % (Auto) Lymph % (Auto) [place] % (Auto) Eos % (Auto) Baso % (Auto) Absolute Neuts (auto) Absolute Lymphs (auto) Total Counted Sodium 143 Potassium 3.3 L Chloride 103 Carbon Dioxide 32.0 Anion Gap 8 BUN 23 H Creatinine 2.22 H Estim Creat Clear Calc 33.17 Est GFR (MDRD) Af Amer 38 L Est GFR (MDRD) Non-Af 32 L BUN/Creatinine Ratio 10.4 Glucose 60 L Calcium 8.1 L Magnesium Total Bilirubin 0.60 AST 17 ALT 26 Alkaline Phosphatase 53 Troponin I 0.027 Total Protein 7.1 Albumin 3.6 Globulin 3.5 Albumin/Globulin Ratio 1.0 POC Glucose 05/17/18 22:02 POC Glucose 116 H Medical Necessity - Tobacco Use Smoking Status: Former smoker Tobacco Use: Non-smoker Assessment/Plan All Active Problems (Last Reviewed 05/12/18 @ 14:22 by Lisette Elizondo) Chest pain (Acute) Esophagitis determined by endoscopy (Acute 05/06/17) Cardiogenic shock (Resolved 06/08/16) Hypertensive emergency (Resolved) Abdominal pain (Resolved) Acute pulmonary edema (Resolved) Acute respiratory failure (Resolved) Atrial fibrillation with RVR (Resolved) Chest pain (Resolved) Elevated troponin (Resolved) Metabolic acidosis (Resolved) Shortness of breath (Resolved)
[2018-05-18 07:00] LABS: Bedside Glucose 110 mg/dL (70-110)
[2018-05-18] MEDS: Ipratropium/Albuterol Sulfate 3 ML AMPUL.NEB INHALATION ×3 (07:13→19:30)
[2018-05-18] MEDS: Insulin Human 75/25 Kwickpen 32 UNIT SC (08:16)
[2018-05-18] MEDS: Aspirin 81 MG TAB.CHEW PO (10:00)
[2018-05-18] MEDS: Loratadine 10 MG Tablet PO (10:00)
[2018-05-18] MEDS: Carvedilol 25 MG Tablet PO ×2 (10:01→22:28)
[2018-05-18] MEDS: Clopidogrel Bisulfate 75 MG Tablet PO (10:01)
[2018-05-18] MEDS: APIXABAN 2.5 MG TABLET PO ×2 (10:01→21:01)
[2018-05-18] MEDS: Losartan Potassium 100 MG Tablet PO (10:01)
[2018-05-18] MEDS: Pantoprazole Sodium 20 MG Tablet PO ×2 (10:01→21:06)
[2018-05-18] MEDS: Amiodarone 200 MG Tablet PO (10:01)
[2018-05-18] MEDS: Furosemide 80 MG Tablet PO ×2 (10:01→17:15)
[2018-05-18] MEDS: Glucerna Shake 120 ML LIQUID PO ×3 (10:03→20:59)
[2018-05-18 11:45] LABS: Bedside Glucose 182 mg/dL (70-110)
--- NOTE | 2018-05-18 15:44 | PCM.PROGNOTE ---
Patient Problems: Active and Suspected Problems (Last Reviewed 05/12/18 @ 14:22 by Lisette Elizondo) Chest pain (Acute) Subjective: Pt resting comfortably upright in chair. He states chest discomfort was a 3/10 pain feeling like someone pushing on the middle of his chest. No associated SOB/naus/diaphoresis/radiation. He said this started when his BP starting going high, he checked it and it was 197/114. He had a similar episode here in the hospital this AM. Currently feels normal. No unusual symptoms. - Physical Exam General: Alert, Oriented x3, Cooperative HEENT: Atraumatic, PERRLA, EOMI, Normocephalic Neck: Supple, No JVD, Negative Carotid Bruits Lungs: Clear to auscultation, Normal air movement Cardiovascular: Regular rate, No murmurs Abdomen: Bowel Sounds Present, Soft, Non Tender Extremities: No edema, Capillary Refill Less than 3 Seconds Skin: No rashes, No breakdown Musculoskeletal: No Tenderness to Palpation of Joints or Extremities Neurological: Cranial nerves II-XII grossly intact Psych/Mental Status: Normal Affect, Appropriate, Alert and oriented to time, place, person, mood and affect Vital Signs Temp Pulse Resp BP Pulse Ox 97.5 F L 56 L 16 103/64 92 05/18/18 14:40 05/18/18 14:40 05/18/18 14:40 05/18/18 14:40 05/18/18 14:40 Oxygen Flow Rate (L/min) 2 Oxygen Delivery Method Room Air Weight: 209 lb 14.081 oz Body Mass Index (BMI) 30.9 Finger Stick Blood Glucose 213 Intake and Output for Last 24 Hours 05/16/18 05/17/18 05/18/18 23:59 23:59 23:59 Intake Total 720 / 720 Output Total 2 / 2 Balance 718 / 718 Laboratory Tests Past 24 Hrs 05/17/18 05/17/18 05/17/18 17:40 17:40 20:30 WBC 7.9 RBC 5.18 Hgb 15.1 Hct 47.1 MCV 90.9 MCH 29.2 MCHC 32.1 RDW 14.5 RDW Differential 48.2 H Plt Count 202 MPV 9.8 Immature Gran % (Auto) 0.500 Neut % (Auto) 72.1 H Lymph % (Auto) 12.5 L [place] % (Auto) 13.2 H Eos % (Auto) 1.3 Baso % (Auto) 0.4 Absolute Neuts (auto) 5.7 Absolute Lymphs (auto) 0.98 Total Counted Not Reportable Sodium 138 Potassium 3.5 Chloride 102 Carbon Dioxide 30.0 Anion Gap 6 BUN 21 H Creatinine 2.04 H Estim Creat Clear Calc 36.10 Est GFR (MDRD) Af Amer 42 L Est GFR (MDRD) Non-Af 35 L BUN/Creatinine Ratio 10.3 Glucose 119 H Calcium 8.4 L Magnesium 2.0 Total Bilirubin AST ALT Alkaline Phosphatase Troponin I 0.023 0.016 Total Protein Albumin Globulin Albumin/Globulin Ratio 05/17/18 05/18/18 05/18/18 23:32 06:10 06:10 WBC 9.2 RBC 4.90 Hgb 14.2 Hct 45.9 MCV 93.7 MCH 29.0 MCHC 30.9 L RDW 14.7 H RDW Differential 49.7 H Plt Count 164 MPV 9.7 Immature Gran % (Auto) Neut % (Auto) Lymph % (Auto) [place] % (Auto) Eos % (Auto) Baso % (Auto) Absolute Neuts (auto) Absolute Lymphs (auto) Total Counted Sodium 143 Potassium 3.3 L Chloride 103 Carbon Dioxide 32.0 Anion Gap 8 BUN 23 H Creatinine 2.22 H Estim Creat Clear Calc 33.17 Est GFR (MDRD) Af Amer 38 L Est GFR (MDRD) Non-Af 32 L BUN/Creatinine Ratio 10.4 Glucose 60 L Calcium 8.1 L Magnesium Total Bilirubin 0.60 AST 17 ALT 26 Alkaline Phosphatase 53 Troponin I 0.027 Total Protein 7.1 Albumin 3.6 Globulin 3.5 Albumin/Globulin Ratio 1.0 POC Glucose 05/18/18 05/18/18 05/17/18 11:34 06:45 22:02 POC Glucose 182 H 110 116 H Medical Necessity - Tobacco Use Smoking Status: Former smoker Tobacco Use: Non-smoker Assessment/Plan All Active Problems (Last Reviewed 05/12/18 @ 14:22 by Lisette Elizondo) Chest pain (Acute) Esophagitis determined by endoscopy (Acute 05/06/17) Cardiogenic shock (Resolved 06/08/16) Hypertensive emergency (Resolved) Abdominal pain (Resolved) Acute pulmonary edema (Resolved) Acute respiratory failure (Resolved) Atrial fibrillation with RVR (Resolved) Chest pain (Resolved) Elevated troponin (Resolved) Metabolic acidosis (Resolved) Shortness of breath (Resolved) 1. Chest pain with hx CAD prior stents.- cath 01/[address] Butler non obstructive coronaries, medical therapy advised. Prior cath 2016 stents placed noted very difficult. C/s to Dr. Butler. Trop negx3 and EKG with no new changes. CXR neg. Symptoms recurred this AM currently none. Noted high BP leading to CP, currently BP well controlled on oral regimen - no prn hydralazine given. -replace K, mag nl -EKG t wave flattenin, SR, 1st degree AV block -tele nsr -pt on imdur 120 bid 2. Hx PAfib and mural thrombus - francis 3. Chronic systolic CHF with ischemic CM, pulm HTN -last echo May 2017 EF 25%. AICD in place. 4. CKD stage III-appears to be at baseline. Follows nephrology as outpatient 5. Hypertension-again noted to be markedly elevated initially, currently stable on home regimen. 6. Hyperlipidemia-continue statin therapy. 7. Type 2 diabetes mellitus-[facility], sliding scale insulin. 8. Anemia of chronic disease-hemoglobin normal. DVT prophylaxis: Francis This patient was seen by Hang Gamble PA-C under the supervision of Doctor Aquino.
[2018-05-18] MEDS: Insulin Lispro 100 UNIT/ML INSULN.PEN SC ×2 (17:26→21:03)
[2018-05-18 17:36] LABS: Bedside Glucose 177 mg/dL (70-110)
[2018-05-18] MEDS: Insulin Human 75/25 Kwickpen 38 UNIT SC (21:01)
[2018-05-18] MEDS: Pravastatin 40 MG Tablet PO (21:02)
[2018-05-18 21:51] LABS: Bedside Glucose 186 mg/dL (70-110)
[2018-05-19] VITALS (18 sets, daily range): BP systolic 126–156; BP diastolic 61–76; PULSE 51–62; RESP 14–18; TEMP 36.5–36.8; O2SAT 92–98
[2018-05-19] MEDS: hydrALAZINE 25 MG Tablet 75 MG PO (05:08)
--- NOTE | 2018-05-19 05:55 | EKG12_ITS ---
Test Reason : AM Blood Pressure : / mmHG Vent. Rate : 051 BPM Atrial Rate : 051 BPM P-R Int : 220 ms QRS Dur : 094 ms QT Int : 496 ms P-R-T Axes : 064 -42 021 degrees QTc Int : 457 ms Sinus bradycardia with 1st degree A-V block Left axis deviation Inferior infarct , age undetermined Anteroseptal infarct , age undetermined Abnormal ECG When compared with ECG of 18-MAY-2018 05:20, MANUAL COMPARISON REQUIRED, DATA IS UNCONFIRMED Confirmed by BELKIS METZ, JUANJOSE ([id number]), editor in chief newspaper CANELO DIETRICH ([id number]) on 05/20/2018 9:16:07 AM Referred By: LANEY Confirmed By:JUANJOSE TAMAYO MD
[2018-05-19 06:50] LABS: Bedside Glucose 71 mg/dL (70-110)
[2018-05-19 06:56] LABS: Anion Gap 7 (5-15); BUN 33 mg/dL (7-18); BUN/Creat Ratio 14.3 RATIO (10-20); Calcium,Total 8.2 mg/dL (8.5-10.1); Chloride 102 mmol/L (98-107); EST Glomerular Filtration Rate 30 mL/min (>60); Est Glom Filt Rate - Afr Amer 37 mL/min (>60); Estimated Creatinine Clearance 32.02 ml/min; Glucose 67 mg/dL (74-106); Magnesium 2.2 mg/dL (1.6-2.6); Potassium 3.6 mmol/L (3.5-5.1); Sodium Level 139 mmol/L (136-145)
[2018-05-19] MEDS: Ipratropium/Albuterol Sulfate 3 ML AMPUL.NEB INHALATION ×3 (07:36→18:47)
[2018-05-19] MEDS: Insulin Human 75/25 Kwickpen 32 UNIT SC (08:20)
[2018-05-19] MEDS: Aspirin 81 MG TAB.CHEW PO (08:21)
--- NOTE | 2018-05-19 09:37 | CASEMGMT ---
Patient has a Healthcare POA and Healthcare LW. They are both on file at [facility]. His daughter, Cristy is his POA. Mamta GARCIA MSW
[2018-05-19] MEDS: Clopidogrel Bisulfate 75 MG Tablet PO (09:53)
[2018-05-19] MEDS: Loratadine 10 MG Tablet PO (09:53)
[2018-05-19] MEDS: Amiodarone 200 MG Tablet PO (09:53)
[2018-05-19] MEDS: Losartan Potassium 100 MG Tablet PO (09:53)
[2018-05-19] MEDS: Furosemide 80 MG Tablet PO ×2 (09:53→17:01)
[2018-05-19] MEDS: Carvedilol 25 MG Tablet PO ×2 (09:54→22:34)
[2018-05-19] MEDS: APIXABAN 2.5 MG TABLET PO ×2 (09:54→22:35)
[2018-05-19] MEDS: Glucerna Shake 120 ML LIQUID PO ×2 (09:54→15:26)
[2018-05-19] MEDS: Pantoprazole Sodium 20 MG Tablet PO ×2 (09:58→22:50)
--- NOTE | 2018-05-19 12:29 | CASEMGMT ---
This DEVYN HUTCHINS to room with MERINO form at this time, explanation done-pt voices understanding and signs MERINO form at this time. Pt voices no further questions/concerns/needs at this time. Original to chart and copy to pt at this time. Willian SHEPARD CM
[2018-05-19 12:35] LABS: Bedside Glucose 133 mg/dL (70-110)
--- NOTE | 2018-05-19 15:02 | PCM.PROGNOTE ---
Subjective: All events of the past 24 hours of been reviewed. LILIANA Gamble placed a call to Dr. Butler informing him of the consult for chest pain and Dr. Butler refused the consult. I have discussed this with Dr. Paul and he recommends getting a stress test in the AM Pt is currently resting comfortably ion bed and denies CP. He also denies SOB. \ Objective: - Physical Exam General: Alert, Oriented x3, Cooperative HEENT: Atraumatic, PERRLA, EOMI, Normocephalic Neck: Supple, No JVD, Negative Carotid Bruits Lungs: Clear to auscultation, Normal air movement Cardiovascular: Regular rate, No murmurs Abdomen: Bowel Sounds Present, Soft, Non Tender Extremities: No edema, Capillary Refill Less than 3 Seconds Skin: No rashes, No breakdown Musculoskeletal: No Tenderness to Palpation of Joints or Extremities Neurological: Cranial nerves II-XII grossly intact Psych/Mental Status: Normal Affect, Appropriate, Alert and oriented to time, place, person, mood and affect - Physical Exam Vital Signs Temp Pulse Resp BP Pulse Ox 98.3 F 62 16 126/61 H 98 05/19/18 09:49 05/19/18 13:39 05/19/18 13:39 05/19/18 09:49 05/19/18 13:39 Oxygen Flow Rate (L/min) 2 Oxygen Delivery Method Room Air Weight: 209 lb 14.081 oz Body Mass Index (BMI) 30.9 Finger Stick Blood Glucose 213 Intake and Output for Last 24 Hours 05/17/18 05/18/18 05/19/18 23:59 23:59 23:59 Intake Total 780 / 780 480 / 480 Output Total 2 / 2 Balance 778 / 778 480 / 480 Laboratory Tests Past 24 Hrs 05/19/18 06:15 Sodium 139 Potassium 3.6 Chloride 102 Carbon Dioxide 30.0 Anion Gap 7 BUN 33 H Creatinine 2.30 H Estim Creat Clear Calc 32.02 Est GFR (MDRD) Af Amer 37 L Est GFR (MDRD) Non-Af 30 L BUN/Creatinine Ratio 14.3 Glucose 67 L Calcium 8.2 L Magnesium 2.2 POC Glucose 05/19/18 05/19/18 05/18/18 12:08 06:47 20:51 POC Glucose 133 H 71 186 H 05/18/18 17:13 POC Glucose 177 H Medical Necessity - Tobacco Use Smoking Status: Former smoker Tobacco Use: Non-smoker Assessment/Plan All Active Problems (Last Updated 05/20/18 @ 15:54 by Geetha Aquino DO) Nonsustained ventricular tachycardia (Acute) Chest pain (Acute) Cardiogenic shock (Resolved 06/08/16) Hypertensive emergency (Resolved) Abdominal pain (Resolved) Acute pulmonary edema (Resolved) Acute respiratory failure (Resolved) Atrial fibrillation with RVR (Resolved) Chest pain (Resolved) Elevated troponin (Resolved) Esophagitis determined by endoscopy (Resolved 05/06/17) Metabolic acidosis (Resolved) Shortness of breath (Resolved) Systolic CHF, acute on chronic (Resolved) Impressions 1. chest pain in a pt with known CAD and hx of PCI. Serial cardiac enzymes have been negative. Cardiac cath in January 2018 showed nonobstructive coronaries and medical therapy was advised. EKG shows no new ST or T wave changes. 2. PAF 3. 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 Chronic systolic congestive heart failure with ischemic cardiomyopathy and a 25% EF. 5. AICD in place 6. Chronic kidney disease stage III 7. Hypertension-blood pressure elevated admission secondary to pain-currently controlled 8. Hyperlipidemia 9. Diabetes mellitus type 2 Chemical nuclear stress in the AM
[2018-05-19] MEDS: hydrALAZINE 50 MG Tablet 100 MG PO ×2 (15:26→22:34)
[2018-05-19] MEDS: Insulin Lispro 100 UNIT/ML INSULN.PEN SC ×2 (16:59→22:49)
[2018-05-19 17:05] LABS: Bedside Glucose 202 mg/dL (70-110)
[2018-05-19] MEDS: Pravastatin 40 MG Tablet PO (22:36)
[2018-05-19 22:46] LABS: Bedside Glucose 258 mg/dL (70-110)
[2018-05-19] MEDS: Insulin Human 75/25 Kwickpen 38 UNIT SC (22:47)
[2018-05-20] VITALS (11 sets, daily range): BP systolic 124–154; BP diastolic 62–79; PULSE 56–64; RESP 16–18; TEMP 36.6–36.7; O2SAT 92–94
[2018-05-20 04:59] LABS: Hematocrit 43.2 % (40-54); Hemoglobin 13.8 g/dl (13.0-16.5); Mean Corp Hgb Conc 31.9 g/gl (32-36); Mean Corpuscular Hgb 29.6 pg (27.0-32.0); Mean Corpuscular Volume 92.7 fL (80-94); Mean Platelet Vol. 9.5 fl (6.2-12.0); Platelet Count 173 K/mm3 (150-450); RBC Distribution Width CV 14.6 % (11.6-14.6); RBC Distribution Width SD 47.9 fl (35.1-43.9); Red Blood Count 4.66 M/mm3 (4.6-6.2)
[2018-05-20 05:00] LABS: Scan Indicated on CBC? Y/N NO
[2018-05-20 05:05] LABS: International Normalized Ratio 1.2; Prothrombin Time (Protime)PT. 15.6 SECONDS (11.7-14.9)
[2018-05-20 05:06] LABS: Partial Thromboplast Time 31.5 Seconds (24.1-36.2)
[2018-05-20 05:17] LABS: Anion Gap 10 (5-15); BUN 39 mg/dL (7-18); Calcium,Total 8.7 mg/dL (8.5-10.1); Chloride 104 mmol/L (98-107); Creatinine, Serum 2.43 mg/dL (0.70-1.30); EST Glomerular Filtration Rate 29 mL/min (>60); Est Glom Filt Rate - Afr Amer 35 mL/min (>60); Estimated Creatinine Clearance 30.31 ml/min; Glucose 69 mg/dL (74-106); Potassium 3.5 mmol/L (3.5-5.1); Sodium Level 143 mmol/L (136-145)
[2018-05-20] MEDS: 0.9% NaCl Peripheral Flush Adult/Peds IV (05:27)
[2018-05-20] MEDS: Aspirin 81 MG TAB.CHEW PO (05:34)
[2018-05-20] MEDS: Pantoprazole Sodium 20 MG Tablet PO (05:35)
[2018-05-20] MEDS: hydrALAZINE 50 MG Tablet 100 MG PO ×2 (05:35→15:52)
[2018-05-20] MEDS: Losartan Potassium 100 MG Tablet PO (05:35)
[2018-05-20] MEDS: Clopidogrel Bisulfate 75 MG Tablet PO (05:35)
--- NOTE | 2018-05-20 05:55 | EKG12_ITS ---
Test Reason : AM EKG Blood Pressure : / mmHG Vent. Rate : 055 BPM Atrial Rate : 055 BPM P-R Int : 214 ms QRS Dur : 098 ms QT Int : 534 ms P-R-T Axes : 062 -35 042 degrees QTc Int : 510 ms Sinus bradycardia with 1st degree A-V block Left axis deviation Inferior infarct , age undetermined Anterolateral infarct , age undetermined Prolonged QT Abnormal ECG Confirmed by BELKIS METZ, JUANJOSE ([id number]), editor & co founder CANELO DIETRICH ([id number]) on 05/24/2018 11:45:30 AM Referred By: LANEY Confirmed By:JUANJOSE TAMAYO MD
[2018-05-20 07:11] LABS: Bedside Glucose 109 mg/dL (70-110)
[2018-05-20] MEDS: Amiodarone 200 MG Tablet PO (12:58)
[2018-05-20] MEDS: Loratadine 10 MG Tablet PO (12:58)
[2018-05-20] MEDS: Carvedilol 25 MG Tablet PO (12:58)
[2018-05-20 13:06] LABS: Bedside Glucose 164 mg/dL (70-110)
--- NOTE | 2018-05-20 15:11 | STRESSREP_ITS ---
Stress Test Report Pharmacologic myocardial perfusion stress test. 67-year-old male with a history of coronary artery disease. Stress protocol: Resting EKG demonstrates normal sinus rhythm with a rate of 64 bpm normal intervals are noted resting blood pressure 140/88 mmHg. 0.4 mg of regadenoson was infused per usual protocol followed by rapid intravenous saline flush injection continuous EKG monitoring was performed. The maximum heart rate attained was 75 bpm which is 48% of maximum predicted heart rate the maximum workload was 1 metabolic equivalent. At rest there were no ST or T wave changes noted suggest abnormal flow reserve at peak infusion nonspecific ST-T wave changes were noted we did not meet the criteria for ischemia. Resting blood p ressure 170/88. Myocardial perfusion protocol. 10.0 mCi of technetium 99m sestamibi was injected at rest. 0.4 mg of regadenoson was infused per protocol. At peak infusion 35.0 mCi of technetium 99m sestamibi was injected stress images were obtained stress and rest images were reconstructed and compared in the short axis vertical long horizontal long axis. Gated images also obtained Perfusion SPECT analysis: Review of the stress images demonstrate a medium-sized defect noted in the apex as well as mild to moderately reduced perfusion noted in the mid inferior wall. The above is suggestive of a previous apical infarct and also an inferior infarct. No obvious reversibility is noted to suggest ischemia. Gated SPECT analysis: The gated ejection fraction is noted to be 45% with apical hypokinesis. Conclusion: Myocardial perfusion stress test with evidence of apical infarct and previous inferior infarct. Mild ischemic cardiomyopathy present
[2018-05-20] MEDS: Glucerna Shake 120 ML LIQUID PO (15:54)
--- NOTE | 2018-05-20 15:54 | DCINST_ITS ---
- Discharge Diagnoses Current Active Problems: Current Active and Chronic Problems (Last Reviewed 05/12/18 @ 14:22 by Lisette Elizondo) Chest pain (Acute) Chronic systolic CHF (congestive heart failure) (Chronic) You will use the following diet at home:: Calorie/Carbohydrate Controlled (specify 1200, 1400, etc), Cardiac Your food should be the consistency of: Regular Your liquids should be the consistency of: Regular/Thin Discharge Activity: Return to Normal Activity Call your doctor if you observe: Fever of 101 or Higher, Shortness of breath, Dizziness, Fainting spells, Chest pain, Calf discomfort, Uncontrolled pain Additional Instructions: The stress test was negative for any evidence of significant coronary artery blockage at this time. Your blood pressure is mildly elevated and the hydralazine has been increased to 100 mg 3 times daily. You can use two 50 mg tablets 3 times daily to use these up prior to filling her prescription. Allergies/Adverse Reactions: Allergies diltiazem Allergy (Verified 05/05/18 10:42) Angioedema atorvastatin calcium [From Lipitor] Adverse Reaction (Verified 05/17/18 19:17) MUSCLE WEAKNESS Medications to take at Discharge Aspirin [Aspirin, Baby] 81 mg PO DAILY@0800 12/28/14 clopidogrel 75 mg tablet 75 mg PO DAILY #30 tab 06/23/17 apixaban 2.5 mg tablet 2.5 mg PO BID 01/25/18 pantoprazole 40 mg tablet,delayed release 40 mg PO BID #60 tab 04/29/18 carvedilol 25 mg tablet 25 mg PO BID 05/12/18 loratadine 10 mg tablet 10 mg PO BID 05/12/18 pravastatin 40 mg tablet 40 mg PO QHS 05/12/18 ranitidine 150 mg tablet 150 mg PO BID tab 05/12/18 Amiodarone HCl 200 mg PO DAILY 05/17/18 Furosemide [Lasix] 80 mg PO BIDLX 05/17/18 Insulin NPH/Reg 70/30 [Novolin 70/30] 32 units SC DAILY 05/17/18 Insulin NPH/Reg 70/30 [Novolin 70/30] 38 units SQ QHS 05/17/18 Isosorbide Mononitrate [Imdur] 120 mg PO BID 05/17/18 Losartan Potassium 100 mg PO DAILY 05/17/18 Nitroglycerin [Nitrostat] 0.4 mg SUBLINGUAL Q5M PRN tablet 05/20/18 hydrALAZINE [Apresoline] 100 mg PO TID #90 tablet 05/20/18 The following prescriptions were given: hydrALAZINE [Apresoline] 100 mg PO TID #90 tablet Primary Care Physician: Jennifer Spicer DO [Primary Care Provider] - Please follow up with your Primary Care Physician in: 5-7 days Test Results: Test results from this visit will be discussed in further detail at your follow- up appointment, if applicable. Proposed Discharge Date: 05/20/18
--- NOTE | 2018-05-20 15:57 | PCM.DC.SUM ---
Discharge Date and Diagnosis Date of Admission: 05/17/18 Date of Discharge: 05/20/18 - Primary Discharge Diagnosis Active and Suspected Problems (Last Reviewed 05/12/18 @ 14:22 by Lisette Elizondo) Nonsustained ventricular tachycardia (Acute) Chest pain (Acute) - Secondary Discharge Diagnosis Chronic Problems (Last Reviewed 05/12/18 @ 14:22 by Lisette Elizondo) Chronic systolic CHF (congestive heart failure) (Chronic) CAD (coronary artery disease) (Chronic) Presence of implantable cardioverter-defibrillator (ICD) (Chronic) Type 2 diabetes mellitus without complications (Chronic) DDD (degenerative disc disease) (Chronic) 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) History of coronary artery stent placement (Chronic 06/08/16) SARA-RCA 06/15/2011, SARA-OM1 06/30/2011, SARA-LAD 08/20/2014, SARA-Prox- RCA 06/08/2016 Atherosclerosis of coronary artery of [place] heart without angina pectoris (Chronic) SARA-RCA 06/15/2011, SARA-OM1 06/30/2011, SARA-LAD 08/20/2014, SARA-Prox- RCA 06/08/2016 Paroxysmal atrial fibrillation (Chronic) Hypertension (Chronic) Hyperlipidemia (Chronic) Type II diabetes mellitus (Chronic) Hyperkalemia (Chronic) Chronic renal failure, stage 3 (moderate) (Chronic) STEMI (ST elevation myocardial infarction) (Chronic) Anemia of chronic renal failure, stage 3 (moderate) (Chronic) Obesity (BMI 30.0-34.9) (Chronic) Cardiomyopathy, ischemic (Chronic) Hospital Course and Treatment Imaging Results: Clinical Impression(s) from Imaging Studies Chest X-Ray 05/17/18 17:50 IMPRESSION: No acute chest disease. Electronically Signed: Gurvinder Alex MD at 18:27 EST , Service support , Dr. Blayne Butler - never saw the pt Operations: None Procedures: Stress test - Conclusion: Myocardial perfusion stress test with evidence of apical infarct and previous inferior infarct. Mild ischemic cardiomyopathy present Summary of Care Provided: The patient is a 67 year old M with a past medical history of diabetes mellitus type 2, hypertension, hyperlipidemia, coronary artery disease with history of PCI, chronic kidney disease stage III, AICD placement, chronic atrial fibrillation, history of mural thrombus on chronic anticoagulation with Eliquis, chronic systolic congestive heart failure/ischemic cardiomyopathy who presented to the emergency department at [facility] on 05/17/2018 complaining of chest pain. He rated the pain as 8/10. Cardiology had seen him in the past and recommended outpatient PFTs but he had not followed through with this. Blood pressure in the ER was 184/92 and the patient stated he was taking his blood pressure regimen as prescribed. Troponin was 0.023. Chest x-ray showed no infiltrates, pleural effusions or pulmonary vascular disease. He had a cardiac catheterization in January [address] Butler that showed nonobstructive coronaries. EKG in the emergency room showed no new ST or T wave changes. He was admitted to a monitored bed on PCU and serial cardiac enzymes were obtained and were negative. Blood pressure remained elevated after admission and the hydralazine was increased to [address] Butler was consulted to evaluate this patient with known coronary disease and 8/10 chest pain but did not see the patient perhaps due to time constraints. Dr. Paul recommended a stress test and this was negative for ischemia. The ejection fraction has improved and was 45% on the gated nuclear ejection fraction. Blood pressure on the day of discharge ranged from 125/62-150 4/79. He was discharged home on 05/20/2018 in stable condition. He was given a prescription for hydralazine 100 mg tablets and instructed to take 1 p.o. 3 times daily. He will follow-up with Dr. Baxter in 5-7 days to have his blood pressure checked. - Physical Exam General: Alert, Oriented x3, Cooperative HEENT: Atraumatic, PERRLA, EOMI, Normocephalic Neck: Supple, No JVD, Negative Carotid Bruits Lungs: Clear to auscultation, Normal air movement Cardiovascular: Regular rate, No murmurs Abdomen: Bowel Sounds Present, Soft, Non Tender Extremities: No edema, Capillary Refill Less than 3 Seconds Skin: No rashes, No breakdown Musculoskeletal: No Tenderness to Palpation of Joints or Extremities Neurological: Cranial nerves II-XII grossly intact Psych/Mental Status: Normal Affect, Appropriate, Alert and oriented to time, place, person, mood and affect This note was generated with [employer] software. It may contain incorrect words, spelling, and punctuation that were not noted in checking the note before signing. - Physical Exam Vital Signs Temp Pulse Resp BP Pulse Ox 97.8 F 61 18 154/79 H 94 05/20/18 12:44 05/20/18 15:52 05/20/18 12:44 05/20/18 12:44 05/20/18 12:44 Oxygen Flow Rate (L/min) 2 Oxygen Delivery Method Room Air Weight: 209 lb 14.081 oz Body Mass Index (BMI) 30.9 Finger Stick Blood Glucose 213 Intake and Output for Last 24 Hours 05/18/18 05/19/18 05/20/18 23:59 23:59 23:59 Intake Total 780 / 780 480 / 480 480 / 480 Output Total 2 / 2 Balance 778 / 778 480 / 480 480 / 480 Laboratory Tests Past 24 Hrs 05/20/18 05/20/18 05/20/18 04:30 04:30 04:30 WBC 8.0 RBC 4.66 Hgb 13.8 Hct 43.2 MCV 92.7 MCH 29.6 MCHC 31.9 L RDW 14.6 RDW Differential 47.9 H Plt Count 173 MPV 9.5 PT 15.6 H INR 1.2 APTT 31.5 Sodium 143 Potassium 3.5 Chloride 104 Carbon Dioxide 29.0 Anion Gap 10 BUN 39 H Creatinine 2.43 H Estim Creat Clear Calc 30.31 Est GFR (MDRD) Af Amer 35 L Est GFR (MDRD) Non-Af 29 L BUN/Creatinine Ratio 16.0 Glucose 69 L Calcium 8.7 POC Glucose 05/20/18 05/20/18 05/19/18 12:54 07:06 22:41 POC Glucose 164 H 109 258 H 05/19/18 16:58 POC Glucose 202 H Discharge Activity: Return to Normal Activity Call your doctor if you observe: Fever of 101 or Higher, Shortness of breath, Dizziness, Fainting spells, Chest pain, Calf discomfort, Uncontrolled pain Home Medications: Medications to take at Discharge Aspirin [Aspirin, Baby] 81 mg PO DAILY@0800 12/28/14 clopidogrel 75 mg tablet 75 mg PO DAILY #30 tab 06/23/17 apixaban 2.5 mg tablet 2.5 mg PO BID 01/25/18 pantoprazole 40 mg tablet,delayed release 40 mg PO BID #60 tab 04/29/18 carvedilol 25 mg tablet 25 mg PO BID 05/12/18 loratadine 10 mg tablet 10 mg PO BID 05/12/18 pravastatin 40 mg tablet 40 mg PO QHS 05/12/18 ranitidine 150 mg tablet 150 mg PO BID tab 05/12/18 Amiodarone HCl 200 mg PO DAILY 05/17/18 Furosemide [Lasix] 80 mg PO BIDLX 05/17/18 Insulin NPH/Reg 70/30 [Novolin 70/30] 32 units SC DAILY 05/17/18 Insulin NPH/Reg 70/30 [Novolin 70/30] 38 units SQ QHS 05/17/18 Isosorbide Mononitrate [Imdur] 120 mg PO BID 05/17/18 Losartan Potassium 100 mg PO DAILY 05/17/18 Nitroglycerin [Nitrostat] 0.4 mg SUBLINGUAL Q5M PRN tablet 05/20/18 hydrALAZINE [Apresoline] 100 mg PO TID #90 tablet 05/20/18 Following Prescrptions Were Given to Patient: hydrALAZINE [Apresoline] 100 mg PO TID #90 tablet Primary Care Physician: Jennifer Spicer DO [Primary Care Provider] - Please follow up with your Primary Care Physician in: 5-7 days Disposition: Home Minutes spent on discharge:: 30 Patient Condition:: Good Medical Necessity - Tobacco Use Smoking Status: Former smoker Tobacco Use: Non-smoker Meaningful Use Info Meaningful Use Diagnoses (Choose all that apply): None applicable Code Visit Inpatient E&M: 81960 Disch Hosp
== END 2018-05-20 15:56 | disposition home or self-care (01) ==
LOC: ED 18:13 → PCU 19:30
PROVIDERS: Admitting Provider Family Medicine; Emergency Provider Emergency Medicine; Family Provider Family Medicine; PCP Family Medicine; Visit Provider Internal Medicine
DX: I47.2 Ventricular tachycardia (principal); R07.89 Other chest pain; I48.0 Paroxysmal atrial fibrillation; I25.10 Atherosclerotic heart disease of native coronary artery without angina pectoris; Z95.810 Presence of automatic (implantable) cardiac defibrillator; I27.21 Secondary pulmonary arterial hypertension; I13.0 Hypertensive heart and chronic kidney disease with heart failure and stage 1 through stage 4 chronic kidney disease, or unspecified chronic kidney disease; I50.22 Chronic systolic (congestive) heart failure; N18.3 Chronic kidney disease, stage 3 (moderate); E11.22 Type 2 diabetes mellitus with diabetic chronic kidney disease; E78.5 Hyperlipidemia, unspecified; I25.2 Old myocardial infarction; I25.5 Ischemic cardiomyopathy; I48.2 Chronic atrial fibrillation; D63.1 Anemia in chronic kidney disease; Z79.899 Other long term (current) drug therapy; Z79.82 Long term (current) use of aspirin; Z79.02 Long term (current) use of antithrombotics/antiplatelets; Z79.01 Long term (current) use of 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s; Z79.4 Long term (current) use of insulin; Z87.891 Personal history of nicotine dependence; E66.9 Obesity, unspecified; Z68.31 Body mass index [BMI] 31.0-31.9, adult; Z71.3 Dietary counseling and surveillance
CPT/HCPCS: 36415; 71045; 78452; 80048; 80053; 82962; 83735; 84484; 85025; 85027; 85610; 85730; 93005; 93017; 94640; 96360; 96361; 97802; 99218; 99283; A9500; J7030; A4216; G0378; J2785

== ENCOUNTER 2018-08-16 14:00 | Emergency (ER) | payer MEDICARE, SELFPAY ==
[2016-06-12 14:02] VITALS: BMI 29.7
[2018-05-17 20:14] VITALS: BMI 30.9
[2018-08-16 14:01] VITALS: BP 146/85; PULSE 91; RESP 16; TEMP 36.3; O2SAT 94; BMI 31.0
--- NOTE | 2018-08-16 14:55 | EKG12_ITS ---
Test Reason : DIZZINESS Blood Pressure : / mmHG Vent. Rate : 094 BPM Atrial Rate : 236 BPM P-R Int : 000 ms QRS Dur : 104 ms QT Int : 452 ms P-R-T Axes : 000 -42 047 degrees QTc Int : 565 ms Atrial flutter with variable A-V block Left axis deviation Inferior infarct , age undetermined Anterolateral infarct , age undetermined Prolonged QT Abnormal ECG Confirmed by MCKENZIE SILVA ([id number]), web content editor CANELO DIETRICH ([id number]) on 08/22/2018 3:33:57 PM Referred By: DANIELA Confirmed By:MCKENZIE SILVA
--- NOTE | 2018-08-16 14:55 | RAD_ITS ---
STUDY: X-RAY CHEST REASON FOR EXAM: Male, 67 years old. Weakness. Fall. TECHNIQUE: Single AP portable view of the chest. COMPARISON: Comparison is made with prior study dated May 17, 2018. FINDINGS: EKG electrodes are seen. The lungs are clear and expanded. There is no demonstrated pleural abnormality. There is moderate cardiac enlargement. A left-sided unipolar pacemaker is seen. Normal mediastinum and loco. Normal visualized pulmonary arteries. There is atherosclerotic tortuosity of the aortic arch and descending thoracic aorta. Normal visualized thoracic spine. Normal visualized ribs, clavicles, and shoulders. There is no demonstrated abnormality of the visualized soft tissue structures of the upper abdomen. RAD/Chest 1 View (Portable) IMPRESSION: Cardiomegaly. Electronically Signed: Domingo Noyola, at 15:28 EDT , Service support ,
--- NOTE | 2018-08-16 14:56 | RAD_ITS ---
STUDY: X-RAY - LEFT HAND REASON FOR EXAM: Male, 67 years old. Fifth metacarpal pain following a fall. TECHNIQUE: 3 view(s) of the hand. COMPARISON: None. FINDINGS: Normal radiocarpal articulation. Normal distal radioulnar joint. Normal visualized carpal bones. Normal carpal articulations Normal carpometacarpal articulation of the thumb. Normal second through fifth carpometacarpal joints. Normal metacarpi. Normal metacarpophalangeal joint of the thumb. Degenerative changes of the distal interphalangeal joint of the thumb. Normal proximal and distal phalanges of the thumb. Normal metacarpophalangeal joints of the second through fifth fingers. Normal proximal and distal interphalangeal joints of the second through fifth fingers. Normal phalanges of the second through fifth fingers. Soft tissue swelling. RAD/Hand Min 3 Views IMPRESSION: Degenerative changes of the distal interphalangeal joint of the thumb. Electronically Signed: Domingo Noyola, at 15:27 EDT , Service support ,
--- NOTE | 2018-08-16 14:56 | US_ITS ---
STUDY: ABDOMINAL ULTRASOUND - RIGHT UPPER QUADRANT REASON FOR VISIT: Male, 67 years old. Right upper quadrant pain TECHNIQUE: Ultrasound evaluation of the right upper quadrant was performed with real-time and static gutiérrez-scale imaging. TECHNICAL QUALITY: Adequate. COMPARISON: 05/10/2017 CT scan abdomen and pelvis FINDINGS: Liver: The liver measures 14.5 cm. There is increased echogenicity consistent with fatty infiltration. The bile ducts are within normal limits. There is hepatic color flow. The direction of portal flow is hepatopetal. There is no demonstrated mass lesion. Gallbladder: Normal distended gallbladder. The gallbladder wall measures 2 mm. There is a negative sonographic Rodriguez's sign. There is no pericholecystic fluid. There are no gallstones. Common Bile Duct (C.B.D.): The common bile duct measures 4 mm. Pancreas: There is nonvisualization of the pancreas , this is due overlying bowel gas. Right Kidney: Normal size of the right kidney. The right kidney measures 11.3 x 5.7 x 6.5 cm. Normal renal cortex. The right cortex measures 1.3 cm. Measured at the radiologist workstation. There is no demonstrated renal mass or cyst. There is no right hydronephrosis. US/Gallbladder IMPRESSION: Hepatic steatosis.. No ultrasound evidence of cholecystitis. Electronically Signed: Elma Rodriguez MD at 16:33 EDT Tel , Service support ,
--- NOTE | 2018-08-16 14:56 | CT_ITS ---
STUDY: CT BRAIN WITHOUT CONTRAST REASON FOR EXAM: Male, 67 years old. Headaches following a fall. Patient is on 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s. RADIATION DOSAGE (If Supplied By Facility): CTDIvol = ( 44.99 ) mGy, DLP = ( 796.11 ) mGycm TECHNIQUE: Transaxial CT imaging of the brain was performed without administration of intravenous contrast material. Individualized dose optimization techniques were used for this CT. COMPARISON: No relevant priors. FINDINGS: Normal soft tissue structures. Normal calvarium. There is mild cerebral atrophy with widening of the extra-axial spaces and ventricular dilatation. There are areas of decreased attenuation within the white matter tracts of the supratentorial brain, consistent with microvascular disease changes. Normal basal ganglia and thalami. Normal brainstem. Normal cerebellum. There is no intracranial hemorrhage. There are no findings of an acute ischemic infarction. Normal visualized paranasal sinuses. CT/Brain/Head without Contrast IMPRESSION: Chronic involutional changes of the brain. Electronically Signed: Domingo Noyola, at 15:56 EDT , Service support ,
--- NOTE | 2018-08-16 15:00 | ED.VISSUMM ---
- ER Visit Summary Date of Service: 08/16/18 Chief Complaint: Dizzy and fell History of Present Illness: The patient is a 67 M history of cardiac disease with multiple cardiac stents, prior CO, A. fib, defibrillator, insulin-dependent diabetes and on both Eliquis and Plavix. Patient was shopping he was walking to the was short of breath stepped off the curb got dizzy and went down. Does not believe he lost conscious. Said he did not hit his head but he does have a mild headache. People help the mild pain abrasion on his left knee and left hand. He actually drove himself home texted his daughter and she helped him in the house. After he told the story they brought him in the ER to be evaluated. He denied any chest pain. For the last 2 months has been having intermittent right upper quadrant abdominal pain where his schedule an outpatient gallbladder ultrasound in the next several days. He denies any hematemesis or melena. He had a decreased appetite due to the right upper quadrant abdominal pain and daughter states he is primarily been eating chicken noodle soup. No one took his blood sugar today. Physical Examination: Older male currently no acute distress vital signs are stable afebrile. HEENT exam pupils are reactive light. No facial droop. Normal speech. No signs of trauma to his face or scalp. Nontender. C-spine nontender. Trachea midline. Lungs clear to auscultation bilaterally. Heart regular rhythm rate about 90 no murmur appreciated. Chest wall nontender. Abdomen soft. Mild right upper quadrant tenderness. No rebound, guarding or rigidity. No pulsatile mass. No signs of abdominal trauma. Normal bowel sounds. Patient is moving all 4 extremities. Neurovascular intact. Is an abrasion just below his left knee and the proximal tibia. There is no deformity. He has full flexion-extension to both upper and lower extremities. He does have an abrasion and swelling to the dorsum of the left hand along the knuckles of the small and left ring finger at the MCP joints. There is no gross bony deformity. 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 Back exam nontender. No signs of trauma. Neurologically is awake alert. He is following commands. He is answering questions appropriately. Test Results: CBC White count 9. Hemoglobin 14. Chemistries unremarkable gap is 7. Glucose is low at 44. GGT was consistent that was 39. He was given amp of D50 and something to eat. Repeat GGT was then 165. Creatinine is 2.0 previously was 2.4 is a known history of chronic renal insufficiency. Liver enzymes normal. Lipase normal. Troponin normal. EKG is atrial fib flutter rate about 94. He has a chronic history of A. fib. Chest x-ray shows cardiomegaly otherwise no acute process read by myself and the radiologist. Left hand x-ray 3 views shows no acute abnormality. No fracture. CT of the brain showed no acute abnormality chronic changes. Right upper quadrant ultrasound showed hepatic steatosis but no cholecystitis. Emergency Department Course and Treatment: Patient with an episode where he was short of breath then became dizzy and fell. He will undergo cardiac work-up. Due to the headache and being on blood thinners obtain a CT of his brain. Due to his recent abdominal pain I will check a hepatic panel, lipase and do the ultrasound he is due to have done in the right upper quadrant. Multiple repeat exams patient is doing well at 1644. Family is comfortable with him being discharged home. Follow-up with his primary care physician. Watch his blood sugars closely. We went over all his test results. Treatment Plan: Watch blood sugars closely. Follow-up with your doctor. Return if worse. Disposition: Discharge Impression: Dizziness and fall secondary to acute hypoglycemia Left hand abrasion and contusion Left knee abrasion History of CAD with cardiac stents and defibrillator Anticoagulated on Plavix and Eliquis Right upper quadrant abdominal pain of uncertain etiology History of diabetes and atrial fibrillation Chronic renal insufficiency This note was generated with [employer] dictation software. It may contain incorrect words, spelling, and punctuation that were not noted in review of the chart prior to signing ED Disposition - Plan for ED Patient: Referrals: Jennifer Spicer DO [Primary Care Provider] -
--- NOTE | 2018-08-16 15:05 | ED.DCSUM_ITS ---
- ER Visit Summary Date of Service: 08/16/18 Chief Complaint: Dizzy and fell History of Present Illness: The patient is a 67 M history of cardiac disease with multiple cardiac stents, prior ID, A. fib, defibrillator, insulin-dependent diabetes and on both Eliquis and Plavix. Patient was shopping he was walking to the was short of breath stepped off the curb got dizzy and went down. Does not believe he lost conscious. Said he did not hit his head but he does have a mild headache. People help the mild pain abrasion on his left knee and left hand. He actually drove himself home texted his daughter and she helped him in the house. After he told the story they brought him in the ER to be evaluated. He denied any chest pain. For the last 2 months has been having intermittent right upper quadrant abdominal pain where his schedule an outpatient gallbladder ultrasound in the next several days. He denies any hematemesis or melena. He had a decreased appetite due to the right upper quadrant abdominal pain and daughter states he is primarily been eating chicken noodle soup. No one took his blood sugar today. Physical Examination: Older male currently no acute distress vital signs are stable afebrile. HEENT exam pupils are reactive light. No facial droop. Normal speech. No signs of trauma to his face or scalp. Nontender. C-spine nontender. Trachea midline. Lungs clear to auscultation bilaterally. Heart regular rhythm rate about 90 no murmur appreciated. Chest wall nontender. Abdomen soft. Mild right upper quadrant tenderness. No rebound, guarding or rigidity. No pulsatile mass. No signs of abdominal trauma. Normal bowel sounds. Patient is moving all 4 extremities. Neurovascular intact. Is an abrasion just below his left knee and the proximal tibia. There is no deformity. He has full flexion-extension to both upper and lower extremities. He does have an abrasion and swelling to the dorsum of the left hand along the knuckles of the small and left ring finger at the MCP joints. There is no gross bony deformity. 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 Back exam nontender. No signs of trauma. Neurologically is awake alert. He is following commands. He is answering questions appropriately. Test Results: CBC White count 9. Hemoglobin 14. Chemistries unremarkable gap is 7. Glucose is low at 44. GGT was consistent that was 39. He was given amp of D50 and something to eat. Repeat GGT was then 165. Creatinine is 2.0 previously was 2.4 is a known history of chronic renal insufficiency. Liver enzymes normal. Lipase normal. Troponin normal. EKG is atrial fib flutter rate about 94. He has a chronic history of A. fib. Chest x-ray shows cardiomegaly otherwise no acute process read by myself and the radiologist. Left hand x-ray 3 views shows no acute abnormality. No fracture. CT of the b rain showed no acute abnormality chronic changes. Right upper quadrant ultrasound showed hepatic steatosis but no cholecystitis. Emergency Department Course and Treatment: Patient with an episode where he was short of breath then became dizzy and fell. He will undergo cardiac work-up. Due to the headache and being on blood thinners obtain a CT of his brain. Due to his recent abdominal pain I will check a hepatic panel, lipase and do the ultrasound he is due to have done in the right upper quadrant. Multiple repeat exams patient is doing well at 1644. Family is comfortable with him being discharged home. Follow-up with his primary care physician. Watch his blood sugars closely. We went over all his test results. Treatment Plan: Watch blood sugars closely. Follow-up with your doctor. Return if worse. Disposition: Discharge Impression: Dizziness and fall secondary to acute hypoglycemia Left hand abrasion and contusion Left knee abrasion History of CAD with cardiac stents and defibrillator Anticoagulated on Plavix and Eliquis Right upper quadrant abdominal pain of uncertain etiology History of diabetes and atrial fibrillation Chronic renal insufficiency This note was generated with [employer] dictation software. It may contain incorrect words, spelling, and punctuation that were not noted in review of the chart prior to signing ED Disposition - Plan for ED Patient: Referrals: Jennifer Spicer DO [Primary Care Provider] -
[2018-08-16 15:18] LABS: Absolute Lymphocyte Count 1.41 X10^3/ul (0.83-4.51); Absolute Neutrophil Count 7.8 X10^3/uL (2.0-7.7); Basophil# 0.03 X10^3/uL; Basophil% 0.3 % (0-1); Eosinophil# 0.09 X10^3/uL; Eosinophils% 0.9 % (0-5); Hematocrit 44.7 % (40-54); Hemoglobin 14.8 g/dl (13.0-16.5); Lymphocyte # 1.41 X10^3/ul (4.0); Lymphocyte % 14.3 % (19-41); Mean Corp Hgb Conc 33.1 g/gl (32-36); Mean Corpuscular Hgb 29.1 pg (27.0-32.0); Mean Corpuscular Volume 87.8 fL (80-94); Monocyte# 0.48 X10^3/uL; Monocyte% 4.9 % (0-10); Neutrophil # 7.82 X10^3/uL (2.7-7.7); Platelet Count 185 K/mm3 (150-450); RBC Distribution Width CV 14.3 % (11.6-14.6); Red Blood Count 5.09 M/mm3 (4.6-6.2); White Blood Count 9.9 K/mm3 (4.4-11.0)
[2018-08-16] MEDS: Dextrose 50%-Water 25 GM/50 ML DISP.SYRIN IV (15:18)
[2018-08-16 15:19] VITALS: O2SAT 95
[2018-08-16 15:26] LABS: POSITIVE COUNT NO; POSITIVE DIFFERENTIAL NO; POSITIVE MORPHOLOGY NO
--- NOTE | 2018-08-16 15:31 | ED.RN ---
PT BG LOW AT 39. DR. RUBIO INFORMED. VERBAL ORDERS FOR AMP OF D50 AND A SNACK. PT ABLE TO SWALLOW WITHOUT DIFFICULTY, PASSED SWALLOW EVAL. MEDICATION ADMINISTERED. PT GIVEN SWEETENED ORANGE JUICE, APPLE SAUCE AND YOGURT. PT TOLERATED WELL. WILL CONTINUE TO MONITOR.
[2018-08-16 15:45] LABS: Bedside Glucose 165 mg/dL (70-110)
--- NOTE | 2018-08-16 15:51 | ED.RN ---
REPEAT GLUCOSE 165. DR. SUAREZ INFORMED.
--- NOTE | 2018-08-16 15:54 | ED.RN ---
LAB CALLED WITH CRITICAL GLUCOSE 44. DR. SUAREZ INFORMED. WILL CONTINUE TO MONITOR. PT REPEAT BG CHECK WAS 165.
[2018-08-16 15:55] LABS: AST(SGOT) 21 U/L (15-37); Alanine Aminotransfer ALT/SGPT 26 U/L (16-61); Albumin, Serum 3.6 g/dL (3.2-5.0); Alkaline Phosphatase 66 U/L (45-117); Anion Gap 7 (5-15); BUN 23 mg/dL (7-18); BUN/Creat Ratio 11.3 RATIO (10-20); Bilirubin, Direct 0.21 mg/dL (0.00-0.30); Calcium,Total 8.6 mg/dL (8.5-10.1); Chloride 102 mmol/L (98-107); Creatinine, Serum 2.04 mg/dL (0.70-1.30); EST Glomerular Filtration Rate 35 mL/min (>60); Est Glom Filt Rate - Afr Amer 42 mL/min (>60); Globulin 3.9 g/dL (2.2-4.2); Glucose 44 mg/dL (74-106); Lipase 70 U/L (73-393); Potassium 3.6 mmol/L (3.5-5.1); Protein, Total 7.5 g/dL (6.4-8.2); Sodium Level 140 mmol/L (136-145)
[2018-08-16 16:22] VITALS: BP 108/90; PULSE 105; RESP 22; O2SAT 97
--- NOTE | 2018-08-16 16:46 | ED.DEP ---
ED Disposition - Plan for ED Patient: Disposition: Home or Assisted Living Instructions: Hypoglycemia (Low Blood Sugar) Referrals: Jennifer Spicer DO [Primary Care Provider] - 3-5 Days Additional Instructions: Watch her blood sugars closely. Check your blood sugar before going to bed tonight. Preferentially be better to run it slightly higher than normal the next several days.
[2018-08-16 17:06] VITALS: BP 114/78; PULSE 80; RESP 14; O2SAT 98
[2018-08-17 07:26] LABS: Bedside Glucose 43 mg/dL (70-110)
[2018-08-17 07:26] LABS: Bedside Glucose 39 mg/dL (70-110)
== END 2018-08-16 17:07 | disposition home or self-care (01) ==
PROVIDERS: Emergency Provider Emergency Medicine; Family Provider Family Medicine; PCP Family Medicine
DX: E11.649 Type 2 diabetes mellitus with hypoglycemia without coma (principal); S60.222A Contusion of left hand, initial encounter; S60.512A Abrasion of left hand, initial encounter; S80.212A Abrasion, left knee, initial encounter; W18.39XA Other fall on same level, initial encounter; Y93.01 Activity, walking, marching and hiking; Y92.9 Unspecified place or not applicable; I25.10 Atherosclerotic heart disease of native coronary artery without angina pectoris; K76.0 Fatty (change of) liver, not elsewhere classified; R10.11 Right upper quadrant pain; I48.91 Unspecified atrial fibrillation; I25.2 Old myocardial infarction; E11.22 Type 2 diabetes mellitus with diabetic chronic kidney disease; N18.9 Chronic kidney disease, unspecified; Z95.5 Presence of coronary angioplasty implant and graft; Z79.4 Long term (current) use of insulin; Z79.02 Long term (current) use of antithrombotics/antiplatelets; Z79.899 Other long term (current) drug therapy; Z87.891 Personal history of nicotine dependence
CPT/HCPCS: 70450; 71045; 73130; 76705; 80048; 80076; 82962; 83690; 84484; 85025; 93005; 96374; 99285; A4216

== ENCOUNTER → 2018-09-07 10:11 | Outpatient (CLI) | payer MEDICARE, SELFPAY ==
[2016-06-12 14:02] VITALS: BMI 29.7
[2018-08-16 14:01] VITALS: BMI 31.0
--- NOTE | 2018-09-07 10:13 | NM_ITS ---
CLINICAL: 67-year-old male with reported history of abdominal pain and bloating. RADIONUCLIDE HEPATOBILIARY SCINTIGRAPHY COMPARISON: Abdominal ultrasound report 08/16/2018 FINDINGS: Following the intravenous administration of 5.5 mCi of 99m Tc Mebrofenin, hepatobiliary images reveal: 1. Relatively prompt and homogeneous radiopharmaceutical concentration is noted by a normal sized liver. No parenchymal defects are identified. 2. Gallbladder activity is identified at 45 minutes post radiopharmaceutical administration. 3. Small intestinal tract is observed at 15 minutes following tracer injection. 4. Washout of the radiopharmaceutical by the hepatic parenchyma appears qualitatively normal. Cholecystokinin (0.02 ug/kg) was administered intravenously over a 30-minute period. The post CCK gallbladder ejection fraction calculated at 20 minutes following Cholecystokinin administration was noted to be 24.0 % (normal greater than 35%). [place]/Hepatobilliary Img w/Pharm Int IMPRESSION: 1. ABNORMAL 99m Tc Mebrofenin hepatobiliary imaging examination with Cholecystokinin. A. A gallbladder ejection fraction calculated to be less than 35% following the administration of Cholecystokinin is consistent with the presence of functional hepatobiliary disease (gallbladder and/or sphincter of Oddi dyskinesia) and/or organic hepatobiliary disease (chronic acalculous cholecystitis and/or cystic duct syndrome) in patients with intermediate to high pretest probabilities of hepatobiliary illness. (Brittany Lindsay et al, Journal of Nuclear Medicine 32:1695, 1990). Electronically Signed: Víctor Young DO at 23:10 EDT Tel , Service support ,
== END ==
LOC: NM 10:12
PROVIDERS: Family Provider Family Medicine; PCP Family Medicine; Referring Provider Family Medicine; Visit Provider Family Medicine
DX: R10.11 Right upper quadrant pain (principal)
CPT/HCPCS: 78227; A9537; J2805

== ENCOUNTER 2018-10-16 01:07 | Emergency (ER) | payer MEDICARE, SELFPAY ==
[2016-06-12 14:02] VITALS: BMI 29.7
[2018-09-12 08:06] VITALS: BMI 31.0
[2018-10-16 01:07] VITALS: BP 177/77; PULSE 66; RESP 24; TEMP 36.9; O2SAT 97; BMI 31.6
--- NOTE | 2018-10-16 01:45 | RAD_ITS ---
HISTORY: SOB/WHEEZING OFF AND ON TODAY EXAMINATION/TECHNIQUE: XR Chest 2 Views: COMPARISON: 08/16/2018 FINDINGS: EKG leads in place. No significant change. Normal heart size. No vascular congestion, pleural effusion, or acute pulmonary infiltration. A pneumothorax. The bony thorax appears intact. Left subclavian AICD pacemaker with electrode tip in the region of the right ventricle. RAD/Chest PA and Lateral IMPRESSION: 1. No acute cardiopulmonary disease. No significant interval change. 2. Left subclavian AICD pacemaker. at 0300 Reported and signed by: Asa Sidhu MD Electronically Signed: Asa Sidhu, at 2:59 EDT Tel , Service support ,
--- NOTE | 2018-10-16 01:45 | EKG12_ITS ---
Test Reason : SOB Blood Pressure : / mmHG Vent. Rate : 057 BPM Atrial Rate : 057 BPM P-R Int : 214 ms QRS Dur : 094 ms QT Int : 696 ms P-R-T Axes : 066 -28 005 degrees QTc Int : 677 ms Sinus bradycardia with 1st degree A-V block Inferior infarct (cited on or before 07-JAN-2018) Anterior infarct (cited on or before 07-JAN-2018) Prolonged QT Abnormal ECG Confirmed by BELKIS METZ, JUANJOSE ([id number]), non linear editor MELLISSA HOPKINS ([id number]) on 10/18/2018 1:48:55 PM Referred By: CINDY Confirmed By:JUANJOSE TAMAYO MD
[2018-10-16] MEDS: Ipratropium/Albuterol Sulfate 3 ML AMPUL.NEB INHALATION (01:54)
[2018-10-16 01:56] VITALS: PULSE 56; RESP 19
[2018-10-16 01:56] LABS: Absolute Lymphocyte Count 0.99 X10^3/ul (0.83-4.51); Absolute Neutrophil Count 5.4 X10^3/uL (2.0-7.7); Basophil# 0.03 X10^3/uL; Basophil% 0.4 % (0-1); Eosinophil# 0.13 X10^3/uL; Eosinophils% 1.7 % (0-5); Hematocrit 40.8 % (40-54); Hemoglobin 13.3 g/dl (13.0-16.5); Lymphocyte # 0.99 X10^3/ul (4.0); Lymphocyte % 13.3 % (19-41); Mean Corp Hgb Conc 32.6 g/gl (32-36); Mean Corpuscular Volume 88.9 fL (80-94); Mean Platelet Vol. 9.7 fl (6.2-12.0); Monocyte# 0.88 X10^3/uL; Monocyte% 11.8 % (0-10); Neutrophil # 5.37 X10^3/uL (2.7-7.7); Neutrophil % 71.9 % (47-70); POSITIVE COUNT NO; POSITIVE DIFFERENTIAL NO; POSITIVE MORPHOLOGY NO; Platelet Count 168 K/mm3 (150-450); RBC Distribution Width CV 14.8 % (11.6-14.6); RBC Distribution Width SD 48.1 fl (35.1-43.9); Red Blood Count 4.59 M/mm3 (4.6-6.2); White Blood Count 7.5 K/mm3 (4.4-11.0)
[2018-10-16 02:08] LABS: Anion Gap 8 (5-15); BUN 39 mg/dL (7-18); BUN/Creat Ratio 17.7 RATIO (10-20); Calcium,Total 8.2 mg/dL (8.5-10.1); Chloride 103 mmol/L (98-107); EST Glomerular Filtration Rate 32 mL/min (>60); Est Glom Filt Rate - Afr Amer 39 mL/min (>60); Estimated Creatinine Clearance 33.03 ml/min; Glucose 205 mg/dL (74-106); Potassium 3.6 mmol/L (3.5-5.1); Sodium Level 139 mmol/L (136-145)
[2018-10-16 02:21] LABS: BNP,B-Type NATRIURETIC PEPTIDE 140.6 pg/mL (0-100)
--- NOTE | 2018-10-16 03:43 | ED.DCSUM_ITS ---
- ER Visit Summary Date of Service: 10/16/18 Chief Complaint: Shortness of breath and wheezing History of Present Illness: The patient is a 68 M who presents with shortness of breath and wheezing that has been intermittent throughout the day today. Patient states nothing seems to make it better or worse. Patient states that last approximately 5 minutes when it comes on. Patient admits to a cough with some green-white sputum. Patient admits to subjective fevers but denies any chills. Patient denies any chest pain. Patient does admit to some pain in his neck. Patient denies any rhinorrhea or sore throat. Patient has a history of pulmonary edema and is concerned about that. Physical Examination: Vital signs are stable except for mild tachypnea 24. Patient is afebrile. Patient is in no acute distress. Oral mucosa is pink and moist. Neck is supple. Trachea is midline. No JVD noted. Heart was regular rate and rhythm. Lungs showed a few scattered wheezing but there is good respiratory effort and no retractions. Abdomen is soft. Bowel sounds are normal. There is no tenderness. Cranial nerves II through XII are intact. There are no focal motor or sensory deficits noted. Test Results: PA and lateral chest x-ray does not show any acute cardiopulmonary process. EKG showed normal sinus rhythm with a rate of 57. There are no acute ST or T wave changes. CBC is normal. BNP is 140.6. BUN and creatinine were 39 and 2.2. These are unchanged compared to previous results. Emergency Department Course and Treatment: Patient was given a DuoNeb aerosol here. Patient felt better on reevaluation. Patient was instructed to follow-up with his primary care physician in 5 to 7 days. Patient and family understood and were agreeable with the plan. All questions were answered. Disposition: Discharge home Impression: Reactive airway disease This note was generated with [employer] dictation software. It may contain incorrect words, spelling, and punctuation that were not noted in review of the chart prior to signing ED Disposition - Plan for ED Patient: Disposition: Home or Assisted Living Diagnosis: Reactive airway disease Instructions: ASTHMA, Acute (Adult) Referrals: Jennifer Spicer DO [Primary Care Provider] - 5-7 Days
[2018-10-16 04:07] VITALS: BP 138/89; PULSE 55; RESP 17; O2SAT 96
== END 2018-10-16 04:08 | disposition home or self-care (01) ==
PROVIDERS: Emergency Provider Emergency Medicine; Family Provider Family Medicine; PCP Family Medicine
DX: J45.909 Unspecified asthma, uncomplicated (principal); M54.2 Cervicalgia; E11.9 Type 2 diabetes mellitus without complications; I10 Essential (primary) hypertension; I48.91 Unspecified atrial fibrillation; J81.1 Chronic pulmonary edema; Z79.82 Long term (current) use of aspirin; Z79.4 Long term (current) use of insulin; Z79.01 Long term (current) use of 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s; Z79.899 Other long term (current) drug therapy
CPT/HCPCS: 71046; 80048; 83880; 84484; 85025; 93005; 94640; 99285; A4216

== ENCOUNTER → 2018-10-18 10:34 | Outpatient (CLI) | payer MEDICARE, SELFPAY ==
[2016-06-12 14:02] VITALS: BMI 29.7
[2018-09-12 08:06] VITALS: BMI 31.0
[2018-10-16 01:07] VITALS: BMI 31.6
== END ==
PROVIDERS: Family Provider Family Medicine; PCP Family Medicine; Referring Provider Surgery; Visit Provider Surgery
DX: Z01.818 Encounter for other preprocedural examination (principal)

== ENCOUNTER → 2018-10-18 10:35 | Outpatient (CLI) | payer MEDICARE, SELFPAY ==
[2016-06-12 14:02] VITALS: BMI 29.7
[2018-09-12 08:06] VITALS: BMI 31.0
--- NOTE | 2018-09-12 10:22 | HP_ITS ---
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 Is patient in pain?: No Allergies diltiazem Allergy (Verified 09/12/18 08:06) Angioedema atorvastatin calcium [From Lipitor] Adverse Reaction (Verified 09/12/18 08:06) MUSCLE WEAKNESS Medications Aspirin [Aspirin, Baby] 81 mg PO DAILY@0800 12/28/14 [History Confirmed 09/12/18] apixaban 2.5 mg tablet 2.5 mg PO BID 01/25/18 [History Confirmed 09/12/18] pantoprazole 40 mg tablet,delayed release 40 mg PO BID #60 tab 04/29/18 [Rx Confirmed 09/12/18] loratadine 10 mg tablet 10 mg PO BID 05/12/18 [History Confirmed 09/12/18] pravastatin 40 mg tablet 40 mg PO QHS 05/12/18 [History Confirmed 09/12/18] ranitidine 150 mg tablet 150 mg PO BID tab 05/12/18 [History Confirmed 09/12/18] Amiodarone HCl 200 mg PO DAILY 05/17/18 [History Confirmed 09/12/18] Furosemide [Lasix] 80 mg PO BIDLX 05/17/18 [History Confirmed 09/12/18] Insulin NPH/Reg 70/30 [Novolin 70/30] 32 units SUBCUT DAILY 05/17/18 [History Confirmed 09/12/18] Insulin NPH/Reg 70/30 [Novolin 70/30] 38 units SQ QHS 05/17/18 [History Confirmed 09/12/18] Isosorbide Mononitrate [Imdur] 120 mg PO BID 05/17/18 [History Confirmed 09/12/18] clopidogrel 75 mg tablet 75 mg PO DAILY #30 tab 06/01/18 [Rx Confirmed 09/12/18] hydralazine 100 mg tablet 100 mg PO TID #90 tab 06/23/18 [Rx Confirmed 09/12/18] losartan 100 mg tablet 100 mg PO DAILY #90 tab 07/04/18 [Rx Confirmed 09/12/18] carvedilol 25 mg tablet 25 mg PO BID #60 tab 08/22/18 [Rx Confirmed 09/12/18] [facility] Medical History halfway current use of 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) Chronic systolic CHF (congestive heart failure) (Chronic) DDD (degenerative disc disease) (Chronic) 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) Atherosclerosis of coronary artery of [place] heart without angina pectoris (Chronic) Paroxysmal atrial fibrillation (Chronic) Hypertension (Chronic) Hyperlipidemia (Chronic) Type II diabetes mellitus (Chronic) Hyperkalemia (Chronic) Chronic renal failure, stage 3 (moderate) (Chronic) STEMI (ST elevation myocardial infarction) (Chronic) Cardiogenic shock (Resolved 06/08/16) Hypertensive emergency (Resolved) Anemia of chronic renal failure, stage 3 (moderate) (Chronic) Obesity (BMI 30.0-34.9) (Chronic) Cardiomyopathy, ischemic (Chronic) History of cardioversion (Chronic 04/10/16) Old myocardial infarction (Chronic) Esophagitis determined by endoscopy (Resolved 05/06/17) Systolic CHF, acute on chronic (Resolved) Surgical History Presence of implantable cardioverter-defibrillator (ICD) (Chronic) History of coronary artery stent placement (Chronic 06/08/16) H/O elbow surgery (Acute) H/O left wrist surgery (Acute) S/P right inguinal hernia repair (Acute) Status post knee surgery (Acute) Family History Brother Sudden cardiac Social History Smoking Status: Former smoker quit date: 01/03/15 pack-years: 90 alcohol intake: current alcohol intake frequency: holidays/special occasions only HPI HPI HPI: RYAN CUMMINS, is a 67 M who presents to the office today for HPI HPI Surgical H&P: Yes HPI: RYAN CUMMINS, is a 67 M who presents to the office today for several complaints. The patient reports he is feeling bloated and he is having right upper quadrant pain. The patient reports that this is been going on for a long time. He says that whenever he eats solid foods he gets pain under 2 hours later which last several hours. He had an EGD a year ago which showed Tadeo's esophagus. He has never had a screening colonoscopy. He did not report any blood in his stool or family history of colon cancer. Patient is on Plavix and Eliquis due to heart stents in 2017. ROS General General: Yes weight change and fatigue; no appetite HEENT HEENT: No difficulty swallowing, eye injury or eye surgery Endo Endocrine: Yes diabetes mellitus; no thyroid disease Skin Skin: No rash or changing moles [facility] Musculoskeletal: Yes back problems and arthritis; no rheumatoid arthritis Cardio Cardiovascular: Yes pacemaker (AICD), heart disease, atrial fibrillation, high blood pressure, heart attack, heart stent and palpitations; no murmur, shortness of breat with exertion or chest pain Psych Psychiatric: No depression or anxiety Resp Respiratory: No shortness of breath, No sleep apnea, Yes cough, No COPD, No asthma, No emphysema, No wheezing Gastro Gastrointestinal: Yes abdominal pain, No nausea or vomiting, Yes diarrhea, Yes constipation, No blood in stool, No acid reflux, No hemorrhoids, No ulcers, Yes gallbladder problem, No black,tarry stools Nolberto Hematologic: Yes blood thinners, No blood disorders Neuro Neurologic: Yes system reviewed and no additional complaints, except as docu Exam Const General: cooperative Orientation: alert, oriented x3 HENMT Head: normal to inspection Ears: hearing grossly normal bilaterally Eyes General: appearance normal, both eyes and all related structures Visual Cano: normal visual cano by confrontation Neck Neck: normal visual inspection Chest Chest palpation & inspection: normal inspection of the chest, pacemaker Resp Effort & Inspection: normal respiratory effort Auscultation: clear to auscultation bilaterally Cardio Rate: regular rate Rhythm: regular rhythm Heart Sounds: no murmurs GI Inspection: non-distended Palpation: soft, tender in the RUQ [facility] Cervical Spine: normal cervical lordosis, cervical ROM normal Skin General: no rashes or lesions noted Neuro General: alert, oriented x3 Cranial Nerves: CN's II-XI intact bilaterally Cognition: normal cognition Extrem General: normal to inspection, full ROM Psych Appearance: grossly normal Affect: normal affect Assessment & Plan Problems 1. Encounter for screening for malignant neoplasm of colon Z12.11 2. 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 RUQ pain R10.11 4. Biliary dyskinesia K82.8 Plan 1. The patient is complaining of right upper quadrant pain especially postprandial. Patient had ultrasound which showed no stones in the gallbladder but he did have a HIDA which showed ejection fraction of only 24%. 2. The patient has a history of Tadeo's esophagus and is due for surveillance EGD. 3. Patient has never had a screening colonoscopy. I will perform this and his EGD before taking out his gallbladder. 4. I discussed the procedure in detail with the patient. I discussed the risks, benefits, and alternatives of the procedure. I discussed the risks including but not limited to bleeding, infection, injury to surrounding organs such as the liver, bile duct, bowels. I did discuss the possibility of having to convert to an open procedure as well as the possibility that if any injuries occurred this may necessitate further surgery at a tertiary care center. 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
[2018-10-16 01:07] VITALS: BMI 31.6
== END ==
PROVIDERS: Family Provider Family Medicine; PCP Family Medicine; Referring Provider Family Medicine; Visit Provider Surgery
DX: K22.70 Barrett's esophagus without dysplasia (principal); R10.11 Right upper quadrant pain; K82.8 Other specified diseases of gallbladder

== ENCOUNTER 2018-12-02 11:11 | Emergency (ER) | payer MEDICARE, SELFPAY ==
[2016-06-12 14:02] VITALS: BMI 29.7
[2018-12-02 11:12] VITALS: BP 176/101; PULSE 95; RESP 20; TEMP 36.6; O2SAT 94; BMI 31.0
--- NOTE | 2018-12-02 11:25 | RAD_ITS ---
STUDY: X-RAY CHEST REASON FOR EXAM: Male, 68 years old. Cough and wheezing TECHNIQUE: PA and lateral views of the chest. COMPARISON: 10/16/2018 FINDINGS: There is a left-sided single-lead ICD. The lungs are clear and expanded. There is no demonstrated pleural abnormality. There is moderate cardiac enlargement. Normal mediastinum and loco. Normal visualized pulmonary arteries. Normal visualized aortic arch and descending thoracic aorta. Normal visualized thoracic spine. Normal visualized ribs, clavicles, and shoulders. There is no demonstrated abnormality of the visualized soft tissue structures of the upper abdomen. RAD/Chest PA and Lateral IMPRESSION: The lungs are clear. There is moderate cardiac enlargement, unchanged. Electronically Signed: Jose Daniel Grant, at 12:27 EDT Tel , Service support ,
--- NOTE | 2018-12-02 11:26 | VDLE_ITS ---
Reason For Study: Pain RIGHT LEFT GSV is normal. CFV is compressible, spontaneous, phasic, CFV is compressible, spontaneous, phasic, competent, and demonstrates normal competent and demonstrates normal augmentation. augmentation. FV is compressible, spontaneous, phasic, competent and demonstrates normal augmentation. POP V is compressible, spontaneous, phasic, competent and demonstrates normal augmentation. T/P Trunk is compressible. PTV is compressible. RT PerV is compressible. Procedure Exam performed portable in ED. A preliminary report was called and/or faxed to [facility]. Interpretation Summary Deep veins of the right lower extremity are patent and compressible segmentally. There is no evidence of right lower extremity deep vein thrombosis. Valvular competence appears intact within the proximal deep venous system on the right . The right great saphenous vein appears patent and compressible segmentally. Ordering Physician: Akin Valentin Referring Physician: Jennifer Spicer Performed By: Jeanne Bourne RVT
--- NOTE | 2018-12-02 11:30 | ED.VISSUMM ---
- ER Visit Summary Date of Service: 12/02/18 Chief Complaint: Right ankle pain and swelling, shortness of breath History of Present Illness: The patient is a 68 M who has ankle pain as well as shortness of breath. He has had this ankle pain for a month. He was in another ER and they told him that it was just arthritis after getting an x-ray. His pain is worse with walking. He tried an ankle brace without any relief. He has no history of DVT or PE. He is a non-smoker. He denies any injuries to this ankle. He felt himself wheezing last night. He does have a history of CHF and atrial fibrillation. Physical Examination: Vital signs reviewed. HEENT exam unremarkable. Heart is tachycardic and regular without murmurs. Lungs have wheezing on the right lower lung base. Abdomen soft nontender. Right ankle exam is diffusely tender. He has diffuse swelling. There is no erythema but it is warm to touch. No open wounds. He has no calf pain or swelling. His neurologic exam is normal. Test Results: CBC normal. Creatinine 1.93, glucose 228. Troponin 0 0.020. D-dimer is 0.47. Chest x-ray reveals clear lungs. His ultrasound of his right leg is negative for DVT or PE Emergency Department Course and Treatment: The patient had x-rays of his ankle performed on November 05. Radiologist reported chronic findings. I did not feel it was necessary to repeat this since he has had no new injuries. He has no DVT. His d-dimer is normal. He has no erythema but he does have a swelling. I will treat him with Keflex in case this is a soft tissue infection. He will follow-up with his primary care physician for further evaluation and testing. Treatment Plan: [] Disposition: Discharge Impression: Right ankle swelling This note was generated with [employer] dictation software. It may contain incorrect words, spelling, and punctuation that were not noted in review of the chart prior to signing ED Disposition - Plan for ED Patient: Referrals: Jennifer Spicer DO [Primary Care Provider] -
[2018-12-02 11:34] VITALS: PULSE 91; RESP 16
[2018-12-02] MEDS: Albuterol 2.5 MG/3 ML VIAL.NEB. INHALATION (11:34)
[2018-12-02 11:57] LABS: Absolute Lymphocyte Count 0.74 X10^3/uL (0.83-4.51); Absolute Neutrophil Count 6.4 X10^3/uL (2.0-7.7); Basophil# 0.06 X10^3/uL; Basophil% 0.7 % (0-1); Eosinophil# 0.22 X10^3/uL; Eosinophils% 2.6 % (0-5); Hematocrit 42.7 % (40-54); Hemoglobin 13.9 g/dL (13.0-16.5); Lymphocyte # 0.74 X10^3/ul (4.0); Lymphocyte % 8.7 % (19-41); Mean Corp Hgb Conc 32.6 g/dL (32-36); Mean Corpuscular Hgb 29.4 pg (27.0-32.0); Mean Corpuscular Volume 90.5 fL (80-94); Mean Platelet Vol. 9.6 fl (6.2-12.0); Monocyte# 1.01 X10^3/uL; Monocyte% 11.9 % (0-10); NRBC Flagged by Analyzer 0 % (0-5); Neutrophil # 6.38 X10^3/uL (2.7-7.7); Platelet Count 196 K/mm3 (150-450); RBC Distribution Width CV 13.9 % (11.6-14.6); RBC Distribution Width SD 46.1 fl (35.1-43.9); Red Blood Count 4.72 M/mm3 (4.6-6.2); White Blood Count 8.5 K/mm3 (4.4-11.0)
[2018-12-02 12:10] LABS: D-Dimer Quantitative (DVT/PE) 0.47 FEU/ug/m (0.27-0.49)
[2018-12-02 12:52] LABS: Anion Gap 7 (5-15); BUN 23 mg/dL (7-18); BUN/Creat Ratio 11.9 RATIO (10-20); Calcium,Total 8.2 mg/dL (8.5-10.1); Chloride 102 mmol/L (98-107); Creatinine, Serum 1.93 mg/dL (0.70-1.30); EST Glomerular Filtration Rate 37 mL/min (>60); Est Glom Filt Rate - Afr Amer 45 mL/min (>60); Estimated Creatinine Clearance 37.65 ml/min; Glucose 228 mg/dL (74-106); Potassium 3.9 mmol/L (3.5-5.1); Sodium Level 138 mmol/L (136-145)
--- NOTE | 2018-12-02 13:09 | ED.DEP ---
ED Disposition - Plan for ED Patient: Disposition: Home or Assisted Living Instructions: ED Peripheral Edema, Unilateral Prescriptions: Cephalexin [Keflex] 500 mg PO Q6 #28 cap Prescription Printed Referrals: Jennifer Spicer DO [Primary Care Provider] -
[2018-12-02 13:20] VITALS: BP 145/92; PULSE 82; RESP 23; O2SAT 95
== END 2018-12-02 13:20 | disposition home or self-care (01) ==
PROVIDERS: Emergency Provider Emergency Medicine; Family Provider Family Medicine; PCP Family Medicine
DX: M25.571 Pain in right ankle and joints of right foot (principal); M79.89 Other specified soft tissue disorders; R06.2 Wheezing; I25.10 Atherosclerotic heart disease of native coronary artery without angina pectoris; I11.0 Hypertensive heart disease with heart failure; I50.9 Heart failure, unspecified; E11.9 Type 2 diabetes mellitus without complications; I48.91 Unspecified atrial fibrillation; Z79.82 Long term (current) use of aspirin; Z79.4 Long term (current) use of insulin; Z79.899 Other long term (current) drug therapy
CPT/HCPCS: 71046; 80048; 84484; 85025; 85379; 93971; 94640; 99285; A4216

== ENCOUNTER 2018-12-05 19:02 | Observation (INO) | payer MEDICARE, SELFPAY ==
[2016-06-12 14:02] VITALS: BMI 29.7
[2018-12-05] VITALS (8 sets, daily range): BP systolic 160–173; BP diastolic 92–106; PULSE 91–97; RESP 17–20; TEMP 36–36.8; O2SAT 93–97; BMI 31.0; BMI 30.7
--- NOTE | 2018-12-05 19:15 | ED.RN ---
RN CALLED FOR EKG, PULLED OLD EKGS FOR
--- NOTE | 2018-12-05 19:17 | EKG12_ITS ---
Test Reason : CP Blood Pressure : / mmHG Vent. Rate : 091 BPM Atrial Rate : 286 BPM P-R Int : 000 ms QRS Dur : 094 ms QT Int : 412 ms P-R-T Axes : 000 -32 043 degrees QTc Int : 506 ms Atrial flutter with variable A-V block Left axis deviation Inferior infarct (cited on or before 07-JAN-2018), cannot be excluded Anterolateral infarct (cited on or before 07-JAN-2018) Prolonged QT Abnormal ECG Confirmed by MEL METZ, REINA ([id number]), website/blog editor MELLISSA HOPKINS ([id number]) on 12/07/2018 1:29:08 PM Referred By: SARAH Confirmed By:REINA LEAL MD
--- NOTE | 2018-12-05 19:18 | ED.DCSUM_ITS ---
History of Present Illness Chief Complaint: Shortness of Breath Detail of Chief Complaint: Short of breath and chest pressure Informant: Patient Onset: Days Current Severity: Mild Maximum Severity: Mild Narrative: Patient presents with shortness of breath that is been going on for a little while. Patient states it seems to be worse at night. He feels like he is wheezing when he tries to lay down flat. He has been using more pillows than normal. Patient states that this afternoon he is been having some intermittent chest heaviness. He has not had cough. Patient was seen in the ER on December 02 with right ankle swelling and shortness of breath. On that visit it is documented he had some wheezing noted to the right lower lobe. Patient does not use his inhaler, but apparently was given one in the past and told that he had asthma. He also has a history of congestive heart failure. Past Medical History - Allergies and Home Meds Allergies/Adverse Reactions: Allergies diltiazem Allergy (Verified 12/02/18 11:12) Angioedema atorvastatin calcium [From Lipitor] Adverse Reaction (Verified 12/02/18 11:12) MUSCLE WEAKNESS Primary Care Physician: Jennifer Spicer DO [Primary Care Provider] - Doctors: Dr. Butler Prior records reviewed: Yes Past Medical History: - - Reviewed Surgical History: - - s/p stents, AICD. Smoking Status: Former smoker - Family History Maternal Family History: Family History (Last Reviewed 09/12/18 @ 08:05 by Yaritza Braden) Brother Sudden cardiac Family History: Reports: - Paternal Family History: Family History (Last Reviewed 09/12/18 @ 08:05 by Yaritza Braden) Brother Sudden cardiac Family History: Reports: - Sibling Family History: Family History (Last Reviewed 09/12/18 @ 08:05 by Yaritza Braden) Brother Sudden cardiac Family History: Reports: Heart Disease Review of Systems General: Denies: Chills, Fever Eyes: Denies: Visual changes - bilaterally ENT: Denies: Bilateral ear pain Cardiovascular: Reports: Chest pain Respiratory: Reports: Dyspnea. Denies: Cough Gastrointestinal: Denies: Abdominal pain, Nausea, Vomiting, Diarrhea Musculoskeletal: Reports: Swelling, Extremity Pain - Continuing right ankle pain and swelling. Denies: Back pain Skin: Denies: Rash Neurological: Denies: Headache Psych: Denies: Depression Endocrine: Denies: Polyuria, Polydipsia Allergy: Denies: Uticaria Physical Exam Vital Signs/Narrative: Vital Signs Temp Pulse Resp BP Pulse Ox 12/05/18 19:03 96.8 F L 91 18 160/94 H 95 Inital Vital Signs reviewed: Yes General: Well nourished, Well developed Head: Normocephalic ENT: Moist mucous membranes Neck: Supple Cardiovascular: Irregular Respiratory: No distress, CTA bilaterally Abdomen: Soft, Nontender Back: Nontender Extremities: - - No edema noted over the shins. He does have mild pitting edema around the right ankle only. No overlying skin change. Skin: Normal color Neurological: Alert, Oriented x3 Psychological: Normal affect Diagnostic/Tx/Re-eval Impressions Chest X-Ray 12/05/18 19:45 IMPRESSION: Stable mild cardiomegaly with cardiac pacemaker. There is no acute pulmonary disease or interval change. Electronically Signed: Kash Teague DO at 20:03 EDT Tel [phone], Service support , 12/05/18 19:45 Chest PA and Lateral [RAD] Stat Laboratory Results 12/05/18 12/05/18 12/05/18 19:15 19:15 19:15 WBC 8.4 RBC 4.81 Hgb 14.2 Hct 42.8 MCV 89.0 MCH 29.5 MCHC 33.2 RDW Std Deviation 44.9 H RDW Coeff of [place] 13.8 Plt Count 250 MPV 9.3 Immature Gran % (Auto) 1.200 H Neut % (Auto) 70.2 H Lymph % (Auto) 12.6 L [place] % (Auto) 11.7 H Eos % (Auto) 3.2 Baso % (Auto) 1.1 H Absolute Neuts (auto) 5.9 Absolute Lymphs (auto) 1.06 Nucleated RBC % 0 Sodium 138 Potassium 3.3 L Chloride 101 Carbon Dioxide 31.0 Anion Gap 6 BUN 27 H Creatinine 2.02 H Estim Creat Clear Calc 35.97 Est GFR (MDRD) Af Amer 43 L Est GFR (MDRD) Non-Af 35 L BUN/Creatinine Ratio 13.4 Glucose 157 H Calcium 8.7 Troponin I < 0.015 B-Natriuretic Peptide 353.4 H - EKG Initial EKG Interpretation: Atrial Flutter - A flutter at [address] change. - Medical Decision Making Patient was given a DuoNeb treatment here. He did not feel that helped his wheezing. Heart rate did elevate for a while, but is now back into the 90s. I discussed test results with the patient. He states he does not feel comfortable going home in light of how short of breath he was last evening. I reviewed his cardiology records. His EF in January 2018 was 45%. I spoke with Dr. Garcia. We agreed to start the patient on Lasix drip at 10mg/h and see how he responds. I will speak with hospitalist. ED Disposition - Plan for ED Patient: Disposition: Acute Care Hospital [facility] Diagnosis: CHF (congestive heart failure) Referrals: Jennifer Spicer DO [Primary Care Provider] -
[2018-12-05] MEDS: Ipratropium/Albuterol Sulfate 3 ML AMPUL.NEB INHALATION (19:23)
[2018-12-05 19:26] LABS: Absolute Lymphocyte Count 1.06 X10^3/uL (0.83-4.51); Absolute Neutrophil Count 5.9 X10^3/uL (2.0-7.7); Basophil# 0.09 X10^3/uL; Basophil% 1.1 % (0-1); Eosinophil# 0.27 X10^3/uL; Eosinophils% 3.2 % (0-5); Hematocrit 42.8 % (40-54); Hemoglobin 14.2 g/dL (13.0-16.5); Lymphocyte # 1.06 X10^3/ul (4.0); Lymphocyte % 12.6 % (19-41); Mean Corp Hgb Conc 33.2 g/dL (32-36); Mean Corpuscular Hgb 29.5 pg (27.0-32.0); Mean Platelet Vol. 9.3 fl (6.2-12.0); Monocyte# 0.98 X10^3/uL; Monocyte% 11.7 % (0-10); NRBC Flagged by Analyzer 0 % (0-5); Neutrophil # 5.89 X10^3/uL (2.7-7.7); Neutrophil % 70.2 % (47-70); Platelet Count 250 K/mm3 (150-450); RBC Distribution Width CV 13.8 % (11.6-14.6); RBC Distribution Width SD 44.9 fl (35.1-43.9); Red Blood Count 4.81 M/mm3 (4.6-6.2); White Blood Count 8.4 K/mm3 (4.4-11.0)
[2018-12-05 19:45] LABS: Anion Gap 6 (5-15); BUN 27 mg/dL (7-18); BUN/Creat Ratio 13.4 RATIO (10-20); Calcium,Total 8.7 mg/dL (8.5-10.1); Chloride 101 mmol/L (98-107); Creatinine, Serum 2.02 mg/dL (0.70-1.30); EST Glomerular Filtration Rate 35 mL/min (>60); Est Glom Filt Rate - Afr Amer 43 mL/min (>60); Estimated Creatinine Clearance 35.97 ml/min; Glucose 157 mg/dL (74-106); Potassium 3.3 mmol/L (3.5-5.1); Sodium Level 138 mmol/L (136-145)
--- NOTE | 2018-12-05 19:45 | RAD_ITS ---
STUDY: X-RAY CHEST REASON FOR EXAM: Male, 68 years old. Wheezing and shortness of breath beginning yesterday. TECHNIQUE: PA and lateral views of the chest. COMPARISON: Chest, December 02, 2018. FINDINGS: The lungs are clear and expanded. There is no demonstrated pleural abnormality. Mild cardiomegaly. Stable cardiac pacemaker. Normal mediastinum and loco. Normal visualized pulmonary arteries. Normal visualized aortic arch and descending thoracic aorta. Normal visualized thoracic spine. Normal visualized ribs, clavicles, and shoulders. There is no demonstrated abnormality of the visualized soft tissue structures of the upper abdomen. RAD/Chest PA and Lateral IMPRESSION: Stable mild cardiomegaly with cardiac pacemaker. There is no acute pulmonary disease or interval change. Electronically Signed: Kash Teague DO at 20:03 EDT Tel [phone], Service support ,
[2018-12-05 19:59] LABS: BNP,B-Type NATRIURETIC PEPTIDE 353.4 pg/mL (0-100)
--- NOTE | 2018-12-05 20:55 | PCM.HP.STD ---
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) use of insulin (6) DDD (degenerative disc disease) Status: Chronic (7) History of coronary artery stent placement Status: Chronic Comment: SARA-RCA 06/15/2011, SARA-OM1 06/30/2011, SARA-LAD 08/20/2014, SARA-Prox- RCA 06/08/2016 (8) Paroxysmal atrial fibrillation Status: Chronic (9) Hypertension Status: Chronic Qualifiers: Hypertension type: essential hypertension Qualified Code(s): I10 - Essential (primary) hypertension (10) Hyperlipidemia Status: Chronic Qualifiers: Hyperlipidemia type: unspecified Qualified Code(s): E78.5 - Hyperlipidemia, unspecified (11) Type II diabetes mellitus Status: Chronic Qualifiers: Diabetes mellitus care home insulin use: with intermediate designer use Diabetes mellitus complication status: with unspecified complications (12) Chronic renal failure, stage 3 (moderate) Status: Chronic (13) Obesity (BMI 30.0-34.9) Status: Chronic History of Present Illness Date of Admission: 12/05/18 Chief Complaint: shortness of breath The patient is a 68 year old male patient with a past medical history of congestive heart failure, atrial fibrillation, coronary artery disease, hypertension, hyperlipidemia, diabetes type 2, history of STEMI, who presents to the emergency room with shortness of breath. The onset of the shortness of breath began Wednesday and is progressively worsened. Patient states he was unable to sleep last night due to the shortness of breath requiring several pillows to elevate his head. Laboratory studies for CBC are unremarkable, sodium 138 potassium 3.3 chloride 101 bicarb 31 BUN 27 creatinine 2.02 and calcium 8.7, BNTP 353, and chest x-ray reveals cardiomegaly with an implanted defibrillator. Initial troponin is negative. Patient currently denies having chest pain. He will be admitted for further cardiac work-up including echocardiogram and cardiac consult. 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) Chronic systolic CHF (congestive heart failure) (Chronic) CAD (coronary artery disease) (Chronic) Presence of implantable cardioverter-defibrillator (ICD) (Chronic) Type 2 diabetes mellitus without complications (Chronic) DDD (degenerative disc disease) (Chronic) 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) History of coronary artery stent placement (Chronic 06/08/16) SARA-RCA 06/15/2011, SARA-OM1 06/30/2011, SARA-LAD 08/20/2014, SARA-Prox- RCA 06/08/2016 Atherosclerosis of coronary artery of [place] heart without angina pectoris (Chronic) SARA-RCA 06/15/2011, SARA-OM1 06/30/2011, SARA-LAD 08/20/2014, SARA-Prox- RCA 06/08/2016 Paroxysmal atrial fibrillation (Chronic) Hypertension (Chronic) Hyperlipidemia (Chronic) Type II diabetes mellitus (Chronic) Hyperkalemia (Chronic) Chronic renal failure, stage 3 (moderate) (Chronic) STEMI (ST elevation myocardial infarction) (Chronic) Anemia of chronic renal failure, stage 3 (moderate) (Chronic) Obesity (BMI 30.0-34.9) (Chronic) Cardiomyopathy, ischemic (Chronic) Medical History: Medical History (Last Reviewed 09/12/18 @ 08:04 by Yaritza Braden) penitentiary current use of 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) Z79.01 Chronic systolic CHF (congestive heart failure) (Chronic) I50.22 DDD (degenerative disc disease) (Chronic) 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) I27.21 Atherosclerosis of coronary artery of [place] heart without angina pectoris (Chronic) I25.10 SARA-RCA 06/15/2011, SARA-OM1 06/30/2011, SARA-LAD 08/20/2014, SARA-Prox- RCA 06/08/2016 Paroxysmal atrial fibrillation (Chronic) I48.0 Hypertension (Chronic) I10 Hyperlipidemia (Chronic) E78.5 Type II diabetes mellitus (Chronic) E11.9 Hyperkalemia (Chronic) E87.5 Chronic renal failure, stage 3 (moderate) (Chronic) N18.3 STEMI (ST elevation myocardial infarction) (Chronic) Cardiogenic shock (Resolved) Onset Date: 06/08/16 R57.0 Hypertensive emergency (Resolved) I16.1 Anemia of chronic renal failure, stage 3 (moderate) (Chronic) N18.3, D63.1 Obesity (BMI 30.0-34.9) (Chronic) E66.9 Cardiomyopathy, ischemic (Chronic) I25.5 History of cardioversion Onset Date: 04/10/16 Z98.890 01/14/15 (unsuccessful), 04/10/2016 Old myocardial infarction I25.2 inferior lateral and Anterior Apical Esophagitis determined by endoscopy (Resolved) Onset Date: 05/06/17 K20.9 Systolic CHF, acute on chronic (Resolved) I50.23 Allergies diltiazem Allergy (Verified 12/02/18 11:12) Angioedema atorvastatin calcium [From Lipitor] Adverse Reaction (Verified 12/02/18 11:12) MUSCLE WEAKNESS Home Medications: Ambulatory Orders Medication Instructions Recorded Aspirin [Aspirin, Baby] 81 mg PO DAILY@0800 12/28/14 apixaban 2.5 mg tablet 2.5 mg PO BID 01/25/18 pantoprazole 40 mg tablet,delayed 40 mg PO BID #60 tab 04/29/18 release loratadine 10 mg tablet 10 mg PO DAILY 05/12/18 ranitidine 150 mg tablet 150 mg PO BID tab 05/12/18 Amiodarone HCl 200 mg PO DAILY 05/17/18 Furosemide [Lasix] 80 mg PO BIDLX 05/17/18 Insulin NPH/Reg 70/30 [Novolin 32 units SUBCUT DAILY 05/17/18 70/30] Insulin NPH/Reg 70/30 [Novolin 38 units SQ QHS 05/17/18 70/30] Isosorbide Mononitrate [Imdur] 120 mg PO BID 05/17/18 clopidogrel 75 mg tablet 75 mg PO DAILY #30 tab 06/01/18 hydralazine 100 mg tablet 100 mg PO TID #90 tab 06/23/18 losartan 100 mg tablet 100 mg PO DAILY #90 tab 07/04/18 carvedilol 25 mg tablet 25 mg PO BID #60 tab 08/22/18 pravastatin 40 mg tablet 40 mg PO QHS #90 tab 09/22/18 Albuterol Inhaler [Ventolin Hfa] 1 - 2 puff INHALATION Q4H PRN PRN 10/16/18 #1 inhaler Cephalexin [Keflex] 500 mg PO Q6 #28 cap 12/02/18 Surgical History: Surgical History (Last Updated 09/12/18 @ 08:05 by Yaritza Braden) Presence of implantable cardioverter-defibrillator (ICD) (Chronic) Z95.810 History of coronary artery stent placement (Chronic) Onset Date: 06/08/16 Z95.5 SARA-RCA 06/15/2011, SARA-OM1 06/30/2011, SARA-LAD 08/20/2014, SARA-Prox- RCA 06/08/2016 H/O elbow surgery Z98.890 H/O left wrist surgery Z98.890 S/P right inguinal hernia repair Z98.890, Z87.19 Status post knee surgery Z98.890 Surgical History: - - s/p stents, AICD. Psychiatric History: No pertinent psych hx Smoking Status: Former smoker - *Family History Maternal Family History: Family History (Last Reviewed 09/12/18 @ 08:05 by Yaritza Braden) Brother Sudden cardiac History Items: - Paternal Family History: Family History (Last Reviewed 09/12/18 @ 08:05 by Yaritza Braden) Brother Sudden cardiac History Items: - Sibling Family History: Family History (Last Reviewed 09/12/18 @ 08:05 by Yaritza Braden) Brother Sudden cardiac History Items: Heart Disease Review of Systems Constitutional: Denies: Chills, Fever, Weight Change HEENT: Denies: Head Aches, Sinus Congestion, Sinus Drainage Cardiovascular: Denies: Chest Pain, Palpitations Respiratory: Reports: Shortness of breath at rest. Denies: Cough, Sputum production Gastrointestinal: Denies: Abdominal Pain, Nausea, Vomiting Genitourinary: Denies: Dysuria Musculoskeletal: Denies: Joint Pain, Joint Tenderness Skin: Denies: Rash, Wounds Neurological: Denies: Numbness, Tingling, Focal weakness Psychiatric: Denies: Anxiety, Depression, Homicidal Ideations, Suicidal Ideations Hematologic/ Lymphatic: Denies: Easy Bruising, Easy Bleeding VTE Information - Inpt Only VTE Present on Admission: No VTE Mechan Device Prophylaxis: None VTE Pharm Prophylaxis ordered?: No Reason prophylaxis not ordered:: Treatment Not Indicated - he is anticoagulated Patient Problems: Active and Suspected Problems (Last Reviewed 09/12/18 @ 08:04 by Yaritza Braden) CHF (congestive heart failure) (Acute) - Physical Exam General: Alert, Oriented x3, Cooperative HEENT: Atraumatic, Normocephalic Neck: Supple Lungs: Clear to auscultation, Normal air movement, No rhonchi, No wheeze, No rales Cardiovascular: Normal S1, Normal S2, No murmurs, Irregular Rate, Tachycardic Abdomen: Bowel Sounds Present, Soft, Non Tender, Obese Extremities: No edema, Capillary Refill Less than 3 Seconds Skin: No rashes Musculoskeletal: No Tenderness to Palpation of Joints or Extremities Neurological: Neuro grossly intact Psych/Mental Status: Normal Affect, Appropriate Vital Signs Temp Pulse Resp BP Pulse Ox 96.8 F L 93 20 H 160/94 H 95 12/05/18 19:03 12/05/18 19:24 12/05/18 19:24 12/05/18 19:03 12/05/18 19:03 Oxygen Delivery Method Room Air Weight: 210 lb Body Mass Index (BMI) 31.0 Finger Stick Blood Glucose 39 Laboratory Tests Past 24 Hrs 12/05/18 12/05/18 12/05/18 19:15 19:15 19:15 WBC 8.4 RBC 4.81 Hgb 14.2 Hct 42.8 MCV 89.0 MCH 29.5 MCHC 33.2 RDW Std Deviation 44.9 H RDW Coeff of [place] 13.8 Plt Count 250 MPV 9.3 Immature Gran % (Auto) 1.200 H Neut % (Auto) 70.2 H Lymph % (Auto) 12.6 L [place] % (Auto) 11.7 H Eos % (Auto) 3.2 Baso % (Auto) 1.1 H Absolute Neuts (auto) 5.9 Absolute Lymphs (auto) 1.06 Nucleated RBC % 0 Sodium 138 Potassium 3.3 L Chloride 101 Carbon Dioxide 31.0 Anion Gap 6 BUN 27 H Creatinine 2.02 H Estim Creat Clear Calc 35.97 Est GFR (MDRD) Af Amer 43 L Est GFR (MDRD) Non-Af 35 L BUN/Creatinine Ratio 13.4 Glucose 157 H Calcium 8.7 Troponin I < 0.015 B-Natriuretic Peptide 353.4 H Assessment/Plan All Active Problems (Last Reviewed 09/12/18 @ 08:04 by Yaritza Braden) CHF (congestive heart failure) (Acute) Nonsustained ventricular tachycardia (Acute) Chest pain (Acute) Cardiogenic shock (Resolved 06/08/16) Hypertensive emergency (Resolved) Abdominal pain (Resolved) Acute pulmonary edema (Resolved) Acute respiratory failure (Resolved) Atrial fibrillation with RVR (Resolved) Chest pain (Resolved) Elevated troponin (Resolved) Esophagitis determined by endoscopy (Resolved 05/06/17) Metabolic acidosis (Resolved) Shortness of breath (Resolved) Systolic CHF, acute on chronic (Resolved) Chronic Problems (Last Reviewed 09/12/18 @ 08:04 by Yaritza Braden) 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) Chronic systolic CHF (congestive heart failure) (Chronic) CAD (coronary artery disease) (Chronic) Presence of implantable cardioverter-defibrillator (ICD) (Chronic) Type 2 diabetes mellitus without complications (Chronic) DDD (degenerative disc disease) (Chronic) 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) History of coronary artery stent placement (Chronic 06/08/16) SARA-RCA 06/15/2011, SARA-OM1 06/30/2011, SARA-LAD 08/20/2014, SARA-Prox- RCA 06/08/2016 Atherosclerosis of coronary artery of [place] heart without angina pectoris (Chronic) SARA-RCA 06/15/2011, SARA-OM1 06/30/2011, SARA-LAD 08/20/2014, SARA-Prox- RCA 06/08/2016 Paroxysmal atrial fibrillation (Chronic) Hypertension (Chronic) Hyperlipidemia (Chronic) Type II diabetes mellitus (Chronic) Hyperkalemia (Chronic) Chronic renal failure, stage 3 (moderate) (Chronic) STEMI (ST elevation myocardial infarction) (Chronic) Anemia of chronic renal failure, stage 3 (moderate) (Chronic) Obesity (BMI 30.0-34.9) (Chronic) Cardiomyopathy, ischemic (Chronic) Plan 1. Shortness of breath secondary to congestive heart failure?admit overnight for observation to progressive care unit, will consult machine shop repair technician Dr. Garcia in the morning, cycle cardiac enzymes per routine, order echocardiogram for the morning. 2. Atrial fibrillation?continue anticoagulation therapy, monitor for rapid ventricular response on telemetry 3. Hypertension?PRN hydralazine 4. Chronic kidney disease?repeat BMP in the morning 5. Diabetes type 2?continue routine management per home routine 6. Hyperlipidemia?continue statin therapy 7. DVT prophylaxis?patient is on anticoagulation therapy Code Visit OBSV E&M: [id number] Initial observation care L2
[2018-12-05] MEDS: Furosemide 500 MG in Empty Viaflex 50 mL 1 EACH CONT INF (21:09)
[2018-12-05] MEDS: Carvedilol 25 MG Tablet PO (22:55)
[2018-12-05] MEDS: hydrALAZINE 50 MG Tablet 100 MG PO (22:55)
[2018-12-05] MEDS: Pravastatin 40 MG Tablet PO (22:55)
[2018-12-05] MEDS: APIXABAN 2.5 MG TABLET PO (23:10)
[2018-12-05 23:15] LABS: Bedside Glucose 149 mg/dL (70-110)
[2018-12-05] MEDS: Loratadine 10 MG Tablet PO (23:36)
[2018-12-05] MEDS: Pantoprazole Sodium 40 MG Tablet PO (23:36)
[2018-12-05] MEDS: Famotidine 20 MG Tablet PO (23:38)
[2018-12-05] MEDS: Cephalexin 500 MG Capsule PO (23:40)
[2018-12-06] VITALS (13 sets, daily range): BP systolic 125–168; BP diastolic 68–83; PULSE 57–69; RESP 16–18; TEMP 36.6–37; O2SAT 94–97
--- NOTE | 2018-12-06 03:31 | EKG12_ITS ---
Test Reason : RHYTHM CHANGE Blood Pressure : / mmHG Vent. Rate : 065 BPM Atrial Rate : 065 BPM P-R Int : 208 ms QRS Dur : 090 ms QT Int : 556 ms P-R-T Axes : 057 -36 049 degrees QTc Int : 578 ms Normal sinus rhythm Left axis deviation Inferior infarct , age undetermined Anterolateral infarct , age undetermined Abnormal ECG When compared with ECG of 05-DEC-2018 19:11, MANUAL COMPARISON REQUIRED, DATA IS UNCONFIRMED Confirmed by MCKENZIE SILVA ([id number]), restaurant expeditor MELLISSA HOPKINS ([id number]) on 12/08/2018 2:02:37 PM Referred By: ALEXIS Confirmed By:MCKENZIE SILVA
[2018-12-06] MEDS: Acetaminophen 325 MG Tablet 650 MG PO (04:37)
--- NOTE | 2018-12-06 05:55 | ECHOD_ITS ---
Reason For Study: CHF Procedure This was a 2D Doppler, Color Flow transthoracic echocardiogram. Exam performed portable in patient room. Left Ventricle Moderately dilated left ventricle. The estimated ejection fraction is 45 %. Stage 2 diastolic dysfunction. Anterior [place] : Severely Hypokinetic. Inferior [place] : Severely Hypokinetic. Mid- anteroseptal : Mildly hypokinetic. Right Ventricle Mildly dilated right ventricle. ICD or pacer leads identified within the right ventricle. Normal systolic function. Atria The left atrium is mildly enlarged. Normal right atrium. Normal atrial septum. Mitral Valve The mitral valve is structurally normal. No prolapse or stenosis seen. Mild (1+) posteriorly directed mitral valve insufficiency. Tricuspid Valve Normal tricuspid valve. Mild (1+) tricuspid valve insufficiency. Right ventricular systolic pressure estimated to be 45 mmHg. Mild pulmonary hypertension. Aortic Valve Normal aortic valve. Trisinus/trileaflet aortic valve. Pulmonic Valve Normal pulmonic valve. Great Vessels Normal aortic root. Normal arch. Normal inferior vena cava. Inferior vena cava collapse with sniff. Pericardium/Pleural No pericardial effusion. MMode/2D Measurements & Calculations LVIDd: 5.4 cm IVSd: 1.1 cm Ao root diam: 4.1 cm LVIDs: 4.0 cm LVPWd: 1.1 cm RVDd: 3.6 cm FS: 25.6 % LAV(MOD-bp): 71.6 ml LVAd ap4: 36.8 cm2 SV(MOD-sp4): 55.1 ml LAV(MOD-bp) Indexed: 34.0 ml/m2 EDV(MOD-sp4): 127.6 ml LAV(MOD-sp2): 61.2 ml EDV(sp4-el): 131.0 ml LAV(MOD-sp4): 74.5 ml LVAs ap4: 27.2 cm2 ESV(MOD-sp4): 72.5 ml ESV(sp4-el): 76.1 ml EF(MOD-sp4): 43.2 % EF(sp4-el): 41.9 % SV(sp4-el): 54.8 ml LA A4 area: 24.6 cm2 LA dimension(2D): 4.4 cm RA A4 area: 17.4 cm2 Time Measurements MV dec time: 0.22 sec Doppler Measurements & Calculations MV E max kevin: 116.9 cm/sec Lat Peak E' Kevin: 11.0 cm/sec Med Peak E' Kevin: 7.4 cm/sec MV A max kevin: 50.4 cm/sec E/E' lat: 10.7 E/E' med: 15.9 MV E/A: 2.3 Ao V2 max: 141.8 cm/sec LV V1 max: 90.5 cm/sec PA V2 max: 108.1 cm/sec Ao max P.1 mmHg LV V1 max P.3 mmHg TR max kevin: 309.0 cm/sec TR max P.2 mmHg Interpretation Summary Moderately dilated left ventricle. The estimated ejection fraction is 45 %. Stage 2 diastolic dysfunction. Anterior [place] : Severely Hypokinetic. Inferior [place] : Severely Hypokinetic. Mid-anteroseptal : Mildly hypokinetic Mildly dilated right ventricle. The left atrium is mildly enlarged. Mild (1+) posteriorly directed mitral valve insufficiency. Mild (1+) tricuspid valve insufficiency. Right ventricular systolic pressure estimated to be 45 mmHg. Mild pulmonary hypertension. Compared to echo report dated 05/10/2017, LVEF has improved from 25% to 45%, but RVSP has worsened from 28 to 45 mm Hg. Ordering Physician: Hema Flynn Referring Physician: GORDON LOCKETT Performed By: Clau Rubin, IBRAHIMA, RVT
[2018-12-06] MEDS: Cephalexin 500 MG Capsule PO ×4 (06:01→23:09)
[2018-12-06] MEDS: hydrALAZINE 50 MG Tablet 100 MG PO ×3 (06:01→21:18)
[2018-12-06 06:05] LABS: Absolute Lymphocyte Count 0.88 X10^3/uL (0.83-4.51); Absolute Neutrophil Count 6.3 X10^3/uL (2.0-7.7); Basophil# 0.05 X10^3/uL; Basophil% 0.6 % (0-1); Eosinophils% 2.4 % (0-5); Lymphocyte # 0.88 X10^3/ul (4.0); Lymphocyte % 10.4 % (19-41); Mean Corp Hgb Conc 32.5 g/dL (32-36); Mean Corpuscular Volume 89.3 fL (80-94); Mean Platelet Vol. 9.1 fl (6.2-12.0); Monocyte# 0.96 X10^3/uL; Monocyte% 11.3 % (0-10); NRBC Flagged by Analyzer 0 % (0-5); Neutrophil # 6.31 X10^3/uL (2.7-7.7); Neutrophil % 74.5 % (47-70); Platelet Count 199 K/mm3 (150-450); RBC Distribution Width CV 13.9 % (11.6-14.6); RBC Distribution Width SD 45.1 fl (35.1-43.9); Red Blood Count 4.48 M/mm3 (4.6-6.2); White Blood Count 8.5 K/mm3 (4.4-11.0)
[2018-12-06 06:42] LABS: Anion Gap 8 (5-15); BUN 31 mg/dL (7-18); BUN/Creat Ratio 14.2 RATIO (10-20); Calcium,Total 8.5 mg/dL (8.5-10.1); Chloride 102 mmol/L (98-107); Creatinine, Serum 2.19 mg/dL (0.70-1.30); EST Glomerular Filtration Rate 32 mL/min (>60); Est Glom Filt Rate - Afr Amer 39 mL/min (>60); Estimated Creatinine Clearance 33.18 ml/min; Glucose 108 mg/dL (74-106); Magnesium 1.9 mg/dL (1.6-2.6); Potassium 3.5 mmol/L (3.5-5.1); Sodium Level 141 mmol/L (136-145)
[2018-12-06 06:45] LABS: Bedside Glucose 125 mg/dL (70-110)
[2018-12-06] MEDS: Aspirin 81 MG TAB.CHEW PO (08:30)
--- NOTE | 2018-12-06 09:25 | CON.PCM_ITS ---
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 transplanted heart: [place] heart Associated angina: without angina Qualified Code(s): I25.10 - Atherosclerotic heart disease of [place] coronary artery without angina pectoris (5) Paroxysmal atrial fibrillation Status: Chronic (6) Hyperlipidemia Status: Chronic Qualifiers: Hyperlipidemia type: unspecified Qualified Code(s): E78.5 - Hyperlipidemia, unspecified Reason for Consult Date of Consultation: 12/06/18 Reason for Consultation: Congestive heart failure exacerbation, coronary artery disease, LV dysfunction, atrial flutter, hypertension, hyperlipidemia, status post AICD. History of Present Illness: This is a 8-year-old gentleman that presents here today for Routine follow-up.. He initially presented for blood pressure check and was found to have an irregular rhythm, and subsequent EKG demonstrated atrial flutter with rapid ventricular response. He does have a history of coronary artery disease with drug-eluting stent to RCA in 2011, obtuse marginal 2012 LAD in 2014, paroxysmal atrial fibrillation, cardiomyopathy with an ejection fraction of 20%, hyperlipidemia and diabetes. Echocardiogram in April 2015 demonstrated an ejection fraction of 35-40%, stage I diastolic dysfunction, mild mitral insufficiency. With an RVSP of 29 mm Hg. Repeat echocardiogram in May 2017 showed an EF of 25%. The patient was to undergo DC cardioversion but upon arrival his pre-procedure EKG showed normal sinus rhythm/sinus bradycardia. At that time he was placed on amiodarone with the hopes of keeping him in NSR, however he reverted back to atrial fibrillation. He was initially found to be hypomagnesemic and was placed on magnesium supplementation for about 2 months time but needed to be discontinued due to cramping and diarrhea. During all this time he denied any knowledge of his atrial fibrillation, palpitations, dizziness or dizziness or anginal symptoms. His previous stress test was 05/08/15 which was negative for inducible ischemia. The patient has been compliant with his antihypertensives and anticoagulate medications. Patient previously presented to [facility] on 06/08/16 with acute onset fatigue, shortness of breath, and respiratory distress requiring emergent intubation. At that time he was found to be in complete heart block with junctional escape rhythm with wide-complex QRSs. It was felt he was hyperkalemic which was confirmed by lab testing. Despite receiving calcium, insulin, glucose, glucagon, dopamine, and levo fed, his situation deteriorated requiring emergent catheterization. At that time he was found to have a significant right coronary artery stenosis and received emergent angioplasty and drug-eluting stenting to the proximal RCA. in addition he was found to have a possibly significant distal RCA stenosis but no attempts were made to correct this due to the acute severe illness. He also had a 50-60% stenosis downstream from a left circumflex stent which was also not evaluated. His EF at the time was found to be about 30%. Once this occurred his rhythm stabilized, and he had an intra-aortic balloon pump placed for several days followed by extubation and pump removal. He is now here in follow-up. Since that discharge, he had an adverse reaction to Cardizem with severe leg swelling and gum bleeding and this was discontinued. Otherwise he is taking and tolerating his medicines well. His spironolactone was discontinued on his recent admission due to his hyperkalemia. He has been receiving home health aid nursing and is doing quite well. Patient was recently admitted in May 2017 with gastritis and underwent an EGD with Dr. Rose. This demonstrated esophagitis and was treated with PPI. His symptoms have resolved. In addition he underwent a repeat stress test on 05/10/17 which was negative for inducible ischemia, and showed an ejection fraction of 41%, and an echocardiogram showed a decrease in his EF from 35 to 25%. Patient was recently admitted again on 01/03/18 with CHF exacerbation, and hypoxia. We re-imaged his coronary anatomy on 01/07/18 which demonstrated normal right heart pressures, normal pulmonary hemodynamics, nonobstructive coronary disease of the right coronary artery, widely patent proximal circumflex without in-stent restenosis and nonobstructive coronary disease of his LAD. His EF at that time was found to be 45% with an EDP of 7 mmHg. No additional stenting was performed. Patient is now here in follow-up. Medications were adjusted for hypertension induced pulmonary edema, and he has markedly improved. June 2017 the patient underwent successful AICD placement, and is followed at [facility] remotely. Patient was recently seen in the ER for swelling of his right ankle in November 2018. Patient was doing well up until the last several days when he began noticing dyspnea on exertion, abdominal bloating, shortness of breath, segue into orthopnea, PND, and sought medical attention [facility] last evening. In addition he complained of wheezing which did not appreciably improve with nebulizer therapy. Patient was given IV diuretic therapy and his symptoms have improved. He denies any exertional chest pain, angina, AICD firings or lower extremity edema. In addition his blood pressure at the time of his ER visit was 169/94. Patient reports that he has been compliant with his medications as well as his fluid restriction. His initial EKG showed atrial flutter with controlled ventricular response which has normalized back to normal sinus rhythm. His troponins been negative x3. His chronic renal insufficiency shows a creatinine around 2.3. His blood pressures during his admission have gone from 166/106 down to the 140 systolic. Echocardiogram is pending. [] Past Medical History Allergies/Adverse Reactions: Allergies diltiazem Allergy (Verified 12/02/18 11:12) Angioedema atorvastatin calcium [From Lipitor] Adverse Reaction (Verified 12/02/18 11:12) MUSCLE WEAKNESS Home Medications: Ambulatory Orders Medication Instructions Recorded Aspirin [Aspirin, Baby] 81 mg PO DAILY@0800 12/28/14 apixaban 2.5 mg tablet 2.5 mg PO BID 01/25/18 pantoprazole 40 mg tablet,delayed 40 mg PO BID #60 tab 04/29/18 release loratadine 10 mg tablet 10 mg PO DAILY 05/12/18 ranitidine 150 mg tablet 150 mg PO BID tab 05/12/18 Amiodarone HCl 200 mg PO DAILY 05/17/18 Furosemide [Lasix] 80 mg PO BIDLX 05/17/18 Insulin NPH/Reg 70/30 [Novolin 32 units SUBCUT DAILY 05/17/1830] Insulin NPH/Reg 70/30 [Novolin 38 units SQ QHS 05/17/1830] Isosorbide Mononitrate [Imdur] 120 mg PO BID 05/17/18 clopidogrel 75 mg tablet 75 mg PO DAILY #30 tab 06/01/18 hydralazine 100 mg tablet 100 mg PO TID #90 tab 06/23/18 losartan 100 mg tablet 100 mg PO DAILY #90 tab 07/04/18 carvedilol 25 mg tablet 25 mg PO BID #60 tab 08/22/18 pravastatin 40 mg tablet 40 mg PO QHS #90 tab 09/22/18 Albuterol Inhaler [Ventolin Hfa] 1 - 2 puff INHALATION Q4H PRN PRN 10/16/18 #1 inhaler Cephalexin [Keflex] 500 mg PO Q6 #28 cap 12/02/18 Past Medical History (Chronic Problems): Chronic Problems (Last Reviewed 09/12/18 @ 08:04 by Yaritza Braden) assisted current use of 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) Chronic systolic CHF (congestive heart failure) (Chronic) CAD (coronary artery disease) (Chronic) Presence of implantable cardioverter-defibrillator (ICD) (Chronic) Type 2 diabetes mellitus without complications (Chronic) DDD (degenerative disc disease) (Chronic) 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) History of coronary artery stent placement (Chronic 06/08/16) SARA-RCA 06/15/2011, SARA-OM1 06/30/2011, SARA-LAD 08/20/2014, SARA-Prox- RCA 06/08/2016 Atherosclerosis of coronary artery of [place] heart without angina pectoris (Chronic) SARA-RCA 06/15/2011, SARA-OM1 06/30/2011, SARA-LAD 08/20/2014, SARA-Prox- RCA 06/08/2016 Paroxysmal atrial fibrillation (Chronic) Hypertension (Chronic) Hyperlipidemia (Chronic) Type II diabetes mellitus (Chronic) Hyperkalemia (Chronic) Chronic renal failure, stage 3 (moderate) (Chronic) STEMI (ST elevation myocardial infarction) (Chronic) Anemia of chronic renal failure, stage 3 (moderate) (Chronic) Obesity (BMI 30.0-34.9) (Chronic) Cardiomyopathy, ischemic (Chronic) Surgical History: - - s/p stents, AICD. Psychiatric History: No pertinent psych hx - *Family History Maternal Family History: Family History (Last Reviewed 09/12/18 @ 08:05 by Yaritza Braden) Brother Sudden cardiac History Items: - Paternal Family History: Family History (Last Reviewed 09/12/18 @ 08:05 by Yaritza Braden) Brother Sudden cardiac History Items: - Sibling Family History: Family History (Last Reviewed 09/12/18 @ 08:05 by Yaritza Braden) Brother Sudden cardiac History Items: Heart Disease Smoking Status: Former smoker Review of Systems - Review of Systems General: Denies: Fever, Night Sweats, Fatigue Cardiovascular: Reports: Shortness of Breath, Shortness of Breath at Rest. Denies: Chest Discomfort, Orthopnea, PND, Peripheral Edema, Palpitations, Lightheadedness, Dizziness, Near Syncope, Syncope Respiratory: Denies: Cough, Sputum Production, Hemoptysis Gastrointestinal: Denies: Hematemesis, Hematochezia, Melena Genitourinary: Denies: Dysuria, Hematuria Skin: Denies: Rash Subjectve: Patient resting comfortably in bed. No acute distress. Objective: Vital Signs Temp Pulse Resp BP Pulse Ox 98.2 F 67 16 142/83 H 95 12/06/18 03:25 12/06/18 07:13 12/06/18 03:25 12/06/18 06:01 12/06/18 07:08 Oxygen Delivery Method Room Air Weight: 209 lb 3.499 oz Body Mass Index (BMI) 30.7 Finger Stick Blood Glucose 39 Intake and Output for Last 24 Hours 12/04/18 12/05/18 12/06/18 23:59 23:59 23:59 Intake Total 242.83 / 242.83 120 / 120 Output Total 675 / 675 675 / 675 Balance -432.17 / -432.17 -555 / -555 General: Awake, Alert, Oriented x 3 HEENT: PERRL, EOMI, Sclera Non Icteric Neck: Supple, Good ROM, No Lymph Node Enlargement Lungs: Clear to auscultation Cardiovascular: Regular Rhythm, Normal S1, Normal S2, No Murmurs, No Rubs, No Gallops Vascular: No Carotid Bruits, Normal Femoral Pulses, Normal Radial Pulses, Normal Dorsalis Pedal Pulse, Normal Posterior Tibial Pulses Abdomen: Bowel Sounds Present, Soft, Non Tender, No HSM, No Organomegaly Extremities: No Cyanosis, No Clubbing, No edema Neurological: No Focal Motor or Sensory Deficit 12/05/18 19:15: WBC 8.4, RBC 4.81, Hgb 14.2, Hct 42.8, MCV 89.0, MCH 29.5, MCHC 33.2, Plt Count 250, MPV 9.3, Immature Gran % (Auto) 1.200 H, Neut % (Auto) 70.2 H, Lymph % (Auto) 12.6 L, [place] % (Auto) 11.7 H, Eos % (Auto) 3.2, Baso % (Auto) 1.1 H, Absolute Neuts (auto) 5.9, Nucleated RBC % 0 12/05/18 19:15: Sodium 138, Potassium 3.3 L, Chloride 101, Carbon Dioxide 31.0, Anion Gap 6, BUN 27 H, Creatinine 2.02 H, Est GFR (MDRD) Af Amer 43 L, Est GFR (MDRD) Non-Af 35 L, BUN/Creatinine Ratio 13.4, Glucose 157 H, Calcium 8.7, Troponin I < 0.015 12/05/18 19:15: B-Natriuretic Peptide 353.4 H 12/05/18 22:53: Troponin I < 0.015 12/06/18 01:23: Troponin I 0.019 12/06/18 05:50: WBC 8.5, RBC 4.48 L, Hgb 13.0, Hct 40.0, MCV 89.3, MCH 29.0, MCHC 32.5, Plt Count 199, MPV 9.1, Immature Gran % (Auto) 0.800, Neut % (Auto) 74.5 H, Lymph % (Auto) 10.4 L, [place] % (Auto) 11.3 H, Eos % (Auto) 2.4, Baso % (Auto) 0.6, Absolute Neuts (auto) 6.3, Nucleated RBC % 0 12/06/18 05:50: Sodium 141, Potassium 3.5, Chloride 102, Carbon Dioxide 31.0, Anion Gap 8, BUN 31 H, Creatinine 2.19 H, Est GFR (MDRD) Af Amer 39 L, Est GFR (MDRD) Non-Af 32 L, BUN/Creatinine Ratio 14.2, Glucose 108 H, Calcium 8.5, Magnesium 1.9 Rhythm: EKG: ECHO: Stress Test: Cardiac Cath: PCI: CT Surgery: Holter monitor: EPS: PPM: CXR: Chest CT Scan: Assessment/Plan 1. Ischemic cardiomyopathy: The patient has had a CHF exacerbation superimposed upon severe hypertension with most likely increased diastolic dysfunction, increased wall stress, precipitating pulmonary edema. Patient is responded well to IV diuretic therapy IV Lasix drip. The patient does have some abdominal bloating, and would recommend continuing his IV Lasix drip until his orthopnea has completely resolved. At that time I will then switch him back to Lasix 80 mg p.o. twice daily with the addition of metolazone 2.5 mg at least once a week and titrating up from there. We will start metolazone 0.5 mg x 1 today. I would not recommend repeat stress testing or catheterization at this time given his most recent catheterization in January 2018. I would however recommend a repeat echocardiogram as we have not had one since May 2017. At this point I would recommend continuing a 1500 cc fluid restriction. His symptoms may have been precipitated by asymptomatic and undiagnosed atrial flutter. Continue amiodarone 200 mg p.o. daily. 2. Hypertension: There is no doubt that the patient's hypertension is most likely contributing to his episodes of congestive heart failure exacerbations due to high diastolic pressures and high wall stress pressure. I recommended that he continue hydralazine 100 mg 3 times daily in an attempt to improve afterload reduction. He is already maximized on his Coreg, losartan, and Imdur. 3. Chronic renal insufficiency: We have had another discussion regarding the patient's chronic renal insufficiency and trending towards dialysis. The patient does not wish to pursue dialysis at this time. 4. Hyperlipidemia: Continue statin based medications. Repeat lipid profile. 5. Atrial flutter: The patient has paroxysmal atrial fibrillation/atrial flutter but has reverted back to normal sinus rhythm as his blood pressure has improved. Continue amiodarone 20 mg p.o. daily. 6. Thank you very much for the opportunity to put dissipate in the cardiac care of your patient. Consultation time took place between 8 AM and 8:30 AM. Code Visit Inpatient E&M: 48763 Subs Hosp L2
[2018-12-06] MEDS: Amiodarone 200 MG Tablet PO (10:34)
[2018-12-06] MEDS: Carvedilol 25 MG Tablet PO ×2 (10:34→21:19)
[2018-12-06] MEDS: Pantoprazole Sodium 40 MG Tablet PO ×2 (10:35→21:19)
[2018-12-06] MEDS: APIXABAN 2.5 MG TABLET PO ×2 (10:35→21:19)
[2018-12-06] MEDS: Famotidine 20 MG Tablet PO ×2 (10:35→21:19)
[2018-12-06] MEDS: Clopidogrel Bisulfate 75 MG Tablet PO (10:35)
[2018-12-06] MEDS: Losartan Potassium 100 MG Tablet PO (10:35)
[2018-12-06] MEDS: Metolazone 2.5 MG Tablet PO (10:37)
[2018-12-06] MEDS: Insulin Lispro 100 UNIT/ML INSULN.PEN SC ×3 (11:49→21:19)
[2018-12-06 12:06] LABS: Bedside Glucose 282 mg/dL (70-110)
--- NOTE | 2018-12-06 13:00 | PN_ITS ---
<Jackie Brenner - Last Filed: 12/06/18 13:09> Patient Problems: Active and Suspected Problems (Last Reviewed 09/12/18 @ 08:04 by Yaritza Braden) CHF (congestive heart failure) (Acute) Subjective: Patient seen and examined. Shortness of breath improving. No lower extremity swelling. Oxygen stable on room air. Denies other symptoms or complaints. - Physical Exam General: Alert, Oriented x3, Cooperative HEENT: Atraumatic, PERRLA, EOMI, Normocephalic Neck: Supple, No JVD, Negative Carotid Bruits Lungs: Clear to auscultation, Diminished Cardiovascular: Regular rate, Regular Rhythm, Normal S1, Normal S2, No murmurs Abdomen: Bowel Sounds Present, Soft, Non Tender, Non-Distended Extremities: No clubbing, No cyanosis, No edema, Capillary Refill Less than 3 Seconds Skin: No rashes, No breakdown Musculoskeletal: No Tenderness to Palpation of Joints or Extremities Neurological: Cranial nerves II-XII grossly intact, Neuro grossly intact Psych/Mental Status: Normal Affect, Appropriate Vital Signs Temp Pulse Resp BP Pulse Ox 97.8 F 69 16 135/81 H 95 12/06/18 09:25 12/06/18 09:25 12/06/18 09:25 12/06/18 09:25 12/06/18 09:25 Oxygen Delivery Method Room Air Weight: 209 lb 3.499 oz Body Mass Index (BMI) 30.7 Finger Stick Blood Glucose 39 Intake and Output for Last 24 Hours 12/04/18 12/05/18 12/06/18 23:59 23:59 23:59 Intake Total 242.83 / 242.83 120 / 120 Output Total 675 / 675 675 / 675 Balance -432.17 / -432.17 -555 / -555 Laboratory Tests Past 24 Hrs 12/05/18 12/05/18 12/05/18 19:15 19:15 19:15 WBC 8.4 RBC 4.81 Hgb 14.2 Hct 42.8 MCV 89.0 MCH 29.5 MCHC 33.2 RDW Std Deviation 44.9 H RDW Coeff of [place] 13.8 Plt Count 250 MPV 9.3 Immature Gran % (Auto) 1.200 H Neut % (Auto) 70.2 H Lymph % (Auto) 12.6 L Barber % (Auto) 11.7 H Eos % (Auto) 3.2 Baso % (Auto) 1.1 H Absolute Neuts (auto) 5.9 Absolute Lymphs (auto) 1.06 Nucleated RBC % 0 Sodium 138 Potassium 3.3 L Chloride 101 Carbon Dioxide 31.0 Anion Gap 6 BUN 27 H Creatinine 2.02 H Estim Creat Clear Calc 35.97 Est GFR (MDRD) Af Amer 43 L Est GFR (MDRD) Non-Af 35 L BUN/Creatinine Ratio 13.4 Glucose 157 H Calcium 8.7 Magnesium Troponin I < 0.015 B-Natriuretic Peptide 353.4 H 12/05/18 12/06/18 12/06/18 22:53 01:23 05:50 WBC 8.5 RBC 4.48 L Hgb 13.0 Hct 40.0 MCV 89.3 MCH 29.0 MCHC 32.5 RDW Std Deviation 45.1 H RDW Coeff of [place] 13.9 Plt Count 199 MPV 9.1 Immature Gran % (Auto) 0.800 Neut % (Auto) 74.5 H Lymph % (Auto) 10.4 L Barber % (Auto) 11.3 H Eos % (Auto) 2.4 Baso % (Auto) 0.6 Absolute Neuts (auto) 6.3 Absolute Lymphs (auto) 0.88 Nucleated RBC % 0 Sodium Potassium Chloride Carbon Dioxide Anion Gap BUN Creatinine Estim Creat Clear Calc Est GFR (MDRD) Af Amer Est GFR (MDRD) Non-Af BUN/Creatinine Ratio Glucose Calcium Magnesium Troponin I < 0.015 0.019 B-Natriuretic Peptide 12/06/18 05:50 WBC RBC Hgb Hct MCV MCH MCHC RDW Std Deviation RDW Coeff of [place] Plt Count MPV Immature Gran % (Auto) Neut % (Auto) Lymph % (Auto) Barber % (Auto) Eos % (Auto) Baso % (Auto) Absolute Neuts (auto) Absolute Lymphs (auto) Nucleated RBC % Sodium 141 Potassium 3.5 Chloride 102 Carbon Dioxide 31.0 Anion Gap 8 BUN 31 H Creatinine 2.19 H Estim Creat Clear Calc 33.18 Est GFR (MDRD) Af Amer 39 L Est GFR (MDRD) Non-Af 32 L BUN/Creatinine Ratio 14.2 Glucose 108 H Calcium 8.5 Magnesium 1.9 Troponin I B-Natriuretic Peptide POC Glucose 12/06/18 12/06/18 12/05/18 11:46 06:40 22:54 POC Glucose 282 H 125 H 149 H Medical Necessity - Tobacco Use Smoking Status: Former smoker Assessment/Plan All Active Problems (Last Reviewed 09/12/18 @ 08:04 by Yaritza Braden) CHF (congestive heart failure) (Acute) Nonsustained ventricular tachycardia (Acute) Chest pain (Acute) Cardiogenic shock (Resolved 06/08/16) Hypertensive emergency (Resolved) Abdominal pain (Resolved) Acute pulmonary edema (Resolved) Acute respiratory failure (Resolved) Atrial fibrillation with RVR (Resolved) Chest pain (Resolved) Elevated troponin (Resolved) Esophagitis determined by endoscopy (Resolved 05/06/17) Metabolic acidosis (Resolved) Shortness of breath (Resolved) Systolic CHF, acute on chronic (Resolved) 1. Acute on chronic systolic CHF/ischemic cardiomyopathy status post AICD placement-chest x-ray admission with no acute process. BNP 353. Patient with shortness of breath on admission. He has not needed supplemental oxygen. Echocardiogram May 2017 with EF 25%, mild tricuspid valve insufficiency. Repeat echocardiogram pending. IV Lasix 40 mg twice daily. Strict I&O. Daily weight. 1500 cc fluid restriction. Cardiology consulted. Recommending discharge on Lasix 80 mg twice daily with addition of metolazone 2.5 mg once weekly with further titration as appropriate. 2. Paroxysmal atrial fibrillation-continue amiodarone, Eliquis, carvedilol. 3. CAD with history of PCI-continue aspirin, statin, carvedilol, Plavix. Follows with Dr. Butler. 4. 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 Chronic kidney disease stage III-at baseline, trend BMP. 6. Hypertension-stable, continue home carvedilol, hydralazine, losartan regimen. 7. Type 2 diabetes [id number] AC at bedtime with sliding scale insulin. Continue home insulin regimen. 8. Hyperlipidemia-continue statin regimen. DVT prophylaxis-Eliquis This patient was seen by WALDEMAR Blair under the supervision of Dr. Navarro. <Vicky Navarro - Last Filed: 12/06/18 17:01> - Physical Exam Vital Signs Temp Pulse Resp BP Pulse Ox 97.9 F 60 16 125/76 H 95 12/06/18 15:15 12/06/18 15:15 12/06/18 15:15 12/06/18 15:15 12/06/18 15:15 Oxygen Delivery Method Room Air Weight: 94.9 kg Body Mass Index (BMI) 30.7 Finger Stick Blood Glucose 39 Intake and Output for Last 24 Hours 12/04/18 12/05/18 12/06/18 23:59 23:59 23:59 Intake Total 242.83 / 242.83 120 / 120 Output Total 675 / 675 675 / 675 Balance -432.17 / -432.17 -555 / -555 Laboratory Tests Past 24 Hrs 12/05/18 12/05/18 12/05/18 19:15 19:15 19:15 WBC 8.4 RBC 4.81 Hgb 14.2 Hct 42.8 MCV 89.0 MCH 29.5 MCHC 33.2 RDW Std Deviation 44.9 H RDW Coeff of [place] 13.8 Plt Count 250 MPV 9.3 Immature Gran % (Auto) 1.200 H Neut % (Auto) 70.2 H Lymph % (Auto) 12.6 L Barber % (Auto) 11.7 H Eos % (Auto) 3.2 Baso % (Auto) 1.1 H Absolute Neuts (auto) 5.9 Absolute Lymphs (auto) 1.06 Nucleated RBC % 0 Sodium 138 Potassium 3.3 L Chloride 101 Carbon Dioxide 31.0 Anion Gap 6 BUN 27 H Creatinine 2.02 H Estim Creat Clear Calc 35.97 Est GFR (MDRD) Af Amer 43 L Est GFR (MDRD) Non-Af 35 L BUN/Creatinine Ratio 13.4 Glucose 157 H Calcium 8.7 Magnesium Troponin I < 0.015 B-Natriuretic Peptide 353.4 H 12/05/18 12/06/18 12/06/18 22:53 01:23 05:50 WBC 8.5 RBC 4.48 L Hgb 13.0 Hct 40.0 MCV 89.3 MCH 29.0 MCHC 32.5 RDW Std Deviation 45.1 H RDW Coeff of [place] 13.9 Plt Count 199 MPV 9.1 Immature Gran % (Auto) 0.800 Neut % (Auto) 74.5 H Lymph % (Auto) 10.4 L Barber % (Auto) 11.3 H Eos % (Auto) 2.4 Baso % (Auto) 0.6 Absolute Neuts (auto) 6.3 Absolute Lymphs (auto) 0.88 Nucleated RBC % 0 Sodium Potassium Chloride Carbon Dioxide Anion Gap BUN Creatinine Estim Creat Clear Calc Est GFR (MDRD) Af Amer Est GFR (MDRD) Non-Af BUN/Creatinine Ratio Glucose Calcium Magnesium Troponin I < 0.015 0.019 B-Natriuretic Peptide 12/06/18 05:50 WBC RBC Hgb Hct MCV MCH MCHC RDW Std Deviation RDW Coeff of [place] Plt Count MPV Immature Gran % (Auto) Neut % (Auto) Lymph % (Auto) Barber % (Auto) Eos % (Auto) Baso % (Auto) Absolute Neuts (auto) Absolute Lymphs (auto) Nucleated RBC % Sodium 141 Potassium 3.5 Chloride 102 Carbon Dioxide 31.0 Anion Gap 8 BUN 31 H Creatinine 2.19 H Estim Creat Clear Calc 33.18 Est GFR (MDRD) Af Amer 39 L Est GFR (MDRD) Non-Af 32 L BUN/Creatinine Ratio 14.2 Glucose 108 H Calcium 8.5 Magnesium 1.9 Troponin I B-Natriuretic Peptide POC Glucose 12/06/18 12/06/18 12/05/18 11:46 06:40 22:54 POC Glucose 282 H 125 H 149 H Assessment/Plan This patient was seen in conjunction with Jackie Brenner RECAPPER. I have independently interviewed and examined the patient and reviewed pertinent historical, laboratory, and other data. Please refer to her note for patient's presentation, findings, and recommendations. Patient was seen and examined. He feels improved. Not on oxygen. No acute events overnight. On lasix drip. Vitals were reviewed -stable Physical Exam: Gen: Comfortable, not pale, not jaundiced, alert oriented x3 CVS:HS I +II, regular, no murmurs RESP: Diminished at lung bases, few rales GI: BS present and normal, nontender, no palpable organs EXT:Trace bilateral leg edema ASSESSMENT: 1. Acute on chronic systolic CHF, EF 25% 2. Paroxysmal atrial fibrillation 3. CAD with history of PCI 4. History of mural thrombus 5. Chronic kidney disease stage III 6. Hypertension 7. Type 2 DM 8. Hyperlipidemia Meds reviewed Plan: Continue lasix drip Switch to lasix 40mg IV BID after current bag Continue on metalozone Continue other meds Ambulatory oxygen evaluation tomorrw. Code Visit Inpatient E&M: 64448 Subs Hosp L2
--- NOTE | 2018-12-06 15:35 | CASEMGMT ---
Patient has a Healthcare POA and Healthcare LW on file at [facility]. Mamta GARCIA HEAD STRENGTH AND CONDITIONING COACH
[2018-12-06 17:01] LABS: Bedside Glucose 257 mg/dL (70-110)
--- NOTE | 2018-12-06 18:31 | NURSING ---
Reviewed Kendy Zamorano's charting.
[2018-12-06] MEDS: Pravastatin 40 MG Tablet PO (21:19)
[2018-12-06 22:21] LABS: Bedside Glucose 215 mg/dL (70-110)
[2018-12-07 03:00] VITALS: BP 148/69; PULSE 57; PULSE 58; RESP 18; TEMP 36.6; O2SAT 96
[2018-12-07 06:02] VITALS: PULSE 57
[2018-12-07] MEDS: Insulin Lispro 100 UNIT/ML INSULN.PEN SC (06:03)
[2018-12-07] MEDS: Cephalexin 500 MG Capsule PO (06:03)
[2018-12-07 06:31] LABS: Bedside Glucose 247 mg/dL (70-110)
[2018-12-07 06:33] LABS: Anion Gap 9 (5-15); BUN 42 mg/dL (7-18); BUN/Creat Ratio 16.3 RATIO (10-20); Calcium,Total 8.6 mg/dL (8.5-10.1); Chloride 98 mmol/L (98-107); Creatinine, Serum 2.57 mg/dL (0.70-1.30); EST Glomerular Filtration Rate 27 mL/min (>60); Est Glom Filt Rate - Afr Amer 32 mL/min (>60); Estimated Creatinine Clearance 28.27 ml/min; Glucose 220 mg/dL (74-106); Potassium 3.5 mmol/L (3.5-5.1); Sodium Level 137 mmol/L (136-145)
[2018-12-07 07:11] VITALS: PULSE 53
[2018-12-07] MEDS: Aspirin 81 MG TAB.CHEW PO (07:43)
[2018-12-07 07:53] VITALS: O2SAT 92
--- NOTE | 2018-12-07 08:10 | PCM.PN.CARD ---
Subjectve: Patient feeling much better this morning. No further orthopnea. No edema. Telemetry negative. No chest pain. Blood pressure much better controlled. Objective: Vital Signs Temp Pulse Resp BP Pulse Ox 97.9 F 53 L 18 148/69 H 92 12/07/18 03:00 12/07/18 07:11 12/07/18 03:00 12/07/18 03:00 12/07/18 07:53 Oxygen Delivery Method Room Air Weight: 208 lb 1.862 oz Body Mass Index (BMI) 30.7 Finger Stick Blood Glucose 39 Intake and Output for Last 24 Hours 12/05/18 12/06/18 12/07/18 23:59 23:59 23:59 Intake Total 242.83 / 242.83 1463.18 / 1463.18 120 / 120 Output Total 675 / 675 2700 / 2700 800 / 800 Balance -432.17 / -432.17 -1236.82 / -1236.82 -680 / -680 General: Awake, Alert, Oriented x 3 HEENT: PERRL, EOMI, Sclera Non Icteric Neck: Supple, Good ROM, No Lymph Node Enlargement Lungs: Clear to auscultation Cardiovascular: Regular Rhythm, Normal S1, Normal S2, No Murmurs, No Rubs, No Gallops Vascular: No Carotid Bruits, Normal Femoral Pulses, Normal Radial Pulses, Normal Dorsalis Pedal Pulse, Normal Posterior Tibial Pulses Abdomen: Bowel Sounds Present, Soft, Non Tender, No HSM, No Organomegaly Extremities: No Cyanosis, No Clubbing, No edema Neurological: No Focal Motor or Sensory Deficit 12/07/18 05:35: Sodium 137, Potassium 3.5, Chloride 98, Carbon Dioxide 30.0, Anion Gap 9, BUN 42 H, Creatinine 2.57 H, Est GFR (MDRD) Af Amer 32 L, Est GFR (MDRD) Non-Af 27 L, BUN/Creatinine Ratio 16.3, Glucose 220 H, Calcium 8.6 Rhythm: EKG: ECHO: Stress Test: Cardiac Cath: PCI: CT Surgery: Holter monitor: EPS: PPM: CXR: Chest CT Scan: Medical Necessity - Tobacco Use Smoking Status: Former smoker Assessment/Plan 1. Ischemic cardiomyopathy: The patient has had a CHF exacerbation superimposed upon severe hypertension with most likely increased diastolic dysfunction, increased wall stress, precipitating pulmonary edema. Patient is responded well to IV diuretic therapy IV Lasix drip. The patient does have some abdominal bloating, and would recommend continuing his IV Lasix drip until his orthopnea has completely resolved. At that time I will then switch him back to Lasix 80 mg p.o. twice daily with the addition of metolazone 2.5 mg at least once a week and titrating up from there. We will start metolazone 0.5 mg x 1 today. I would not recommend repeat stress testing or catheterization at this time given his most recent catheterization in January 2018. Repeat echocardiogram yesterday showed an improvement of his ejection fraction to around 45 to 50%, with remaining mid anteroseptal and apical hypokinesis. This is actually better than his previous echocardiogram at which time his EF was around 25 to 30%. At this point I would recommend continuing a 1500 cc fluid restriction. His symptoms may have been precipitated by asymptomatic and undiagnosed atrial flutter. Continue amiodarone 200 mg p.o. daily. In addition we will put him back on his Lasix 80 mg p.o. twice daily now that he is back down to his dry weight. Patient received 1 dose of metolazone yesterday and would recommend metolazone 2.5 mg every Wednesday. We can titrate this up to his much as 3 times per week or even daily if necessary however I believe this would precipitate renal insufficiency. 2. Hypertension: There is no doubt that the patient's hypertension is most likely contributing to his episodes of congestive heart failure exacerbations due to high diastolic pressures and high wall stress pressure. I recommended that he continue hydralazine 100 mg 3 times daily in an attempt to improve afterload reduction. He is already maximized on his Coreg, losartan, and Imdur. In addition we will start him on Norvasc 5 mg p.o. daily. 3. Chronic renal insufficiency: We have had another discussion regarding the patient's chronic renal insufficiency and trending towards dialysis. The patient does not wish to pursue dialysis at this time. 4. Hyperlipidemia: Continue statin based medications. Repeat lipid profile. 5. Atrial flutter: The patient has paroxysmal atrial fibrillation/atrial flutter but has reverted back to normal sinus rhythm as his blood pressure has improved. Continue amiodarone 20 mg p.o. daily. 6. Thank you very much for the opportunity to put dissipate in the cardiac care of your patient. Patient may be discharged home with follow-up with Dr. Butler on 12/19/2018. Code Visit Inpatient E&M: 03069 Subs Hosp L2
--- NOTE | 2018-12-07 09:30 | CASEMGMT ---
This RN LISET to room with MERINO form at this time, explanation done-pt voices understanding, and signs consent at this time. Original to chart and copy to pt at this time. Pt voices no further questions/concerns/needs at this time. SStaten DEVYN CM
[2018-12-07 09:51] VITALS: BP 117/61; PULSE 56; RESP 18; TEMP 36.7; O2SAT 95
[2018-12-07] MEDS: Famotidine 20 MG Tablet PO (09:53)
[2018-12-07] MEDS: Pantoprazole Sodium 40 MG Tablet PO (09:53)
[2018-12-07] MEDS: Amiodarone 200 MG Tablet PO (09:53)
[2018-12-07] MEDS: Clopidogrel Bisulfate 75 MG Tablet PO (09:53)
[2018-12-07] MEDS: Losartan Potassium 100 MG Tablet PO (09:54)
[2018-12-07] MEDS: Loratadine 10 MG Tablet PO (09:54)
[2018-12-07] MEDS: APIXABAN 2.5 MG TABLET PO (09:54)
[2018-12-07] MEDS: Carvedilol 25 MG Tablet PO (09:54)
[2018-12-07] MEDS: Furosemide 40 MG Tablet PO ×2 (09:58→12:14)
--- NOTE | 2018-12-07 11:12 | PCM.DC ---
- Discharge Diagnoses Current Active Problems: Current Active and Chronic Problems (Last Reviewed 09/12/18 @ 08:04 by Yaritza Braden) CHF (congestive heart failure) (Acute) Reason(s) for Visit for Discharge Instructions: Shortness of breath You will use the following diet at home:: Cardiac Your food should be the consistency of: Regular Your liquids should be the consistency of: Regular/Thin Discharge Activity: Return to Normal Activity Additional Instructions: Continue to take all your meds as scheduled. You need to restrict your total fluid intake to 1500mls/hr. Continue to weigh yourself daily. You need a repeat blood work within 1 week. Follow-up with your PCP within 1-2 weeks. Follow-up with your service assistant as scheduled. Allergies/Adverse Reactions: Allergies diltiazem Allergy (Verified 12/07/18 10:29) LOWER LEG SWELLING atorvastatin calcium [From Lipitor] Adverse Reaction (Verified 12/02/18 11:12) MUSCLE WEAKNESS Medications to take at Discharge Aspirin [Aspirin, Baby] 81 mg PO DAILY@0800 12/28/14 apixaban 2.5 mg tablet 2.5 mg PO BID 01/25/18 pantoprazole 40 mg tablet,delayed release 40 mg PO BID #60 tab 04/29/18 loratadine 10 mg tablet 10 mg PO DAILY 05/12/18 Amiodarone HCl 200 mg PO DAILY 05/17/18 Insulin NPH/Reg 70/30 [Novolin 70/30] 32 units SUBCUT DAILY 05/17/18 Insulin NPH/Reg 70/30 [Novolin 70/30] 38 units SQ QHS 05/17/18 Isosorbide Mononitrate [Imdur] 120 mg PO BID 05/17/18 clopidogrel 75 mg tablet 75 mg PO DAILY #30 tab 06/01/18 hydralazine 100 mg tablet 100 mg PO TID #90 tab 06/23/18 losartan 100 mg tablet 100 mg PO DAILY #90 tab 07/04/18 carvedilol 25 mg tablet 25 mg PO BID #60 tab 08/22/18 pravastatin 40 mg tablet 40 mg PO QHS #90 tab 09/22/18 Albuterol Inhaler [Ventolin Hfa] 1 - 2 puff INHALATION Q4H PRN PRN #1 inhaler 10/16/18 Cephalexin [Keflex] 500 mg PO Q6 #28 cap 12/02/18 Acetaminophen [Tylenol Tablet] 650 mg PO Q4H PRN PRN tab 12/07/18 Amlodipine [Norvasc] 5 mg PO DAILY 30 Days #30 tab 12/07/18 Furosemide [Lasix] 80 mg PO BIDLX 30 Days #60 tab 12/07/18 Metolazone 2.5 mg PO QWEEK #4 tab 12/07/18 The following prescriptions were given: Furosemide [Lasix] 80 mg PO BIDLX 30 Days #60 tab Transmission Status: Sent to [facility] #40 Metolazone 2.5 mg PO QWEEK #4 tab Transmission Status: Pending to [facility] #40 Amlodipine [Norvasc] 5 mg PO DAILY 30 Days #30 tab Transmission Status: Sent to [facility] #40 Primary Care Physician: Jennifer Spicer DO [Primary Care Provider] - Please follow up with your Primary Care Physician in: within 1-2 weeks Test Results: Test results from this visit will be discussed in further detail at your follow-up appointment, if applicable. Please Follow Up With: Marco Antonio Butler MD When: as scheduled Proposed Discharge Date: 12/07/18
[2018-12-07] MEDS: amLODIPine 5 MG Tablet PO (11:17)
--- NOTE | 2018-12-07 11:23 | PCM.DC.SUM ---
Discharge Date and Diagnosis Date of Admission: 12/05/18 Date of Discharge: 12/07/18 - Primary Discharge Diagnosis Active and Suspected Problems (Last Reviewed 09/12/18 @ 08:04 by Yaritza Braden) Acute on chronic systolic CHF, EF 45%, s/p AICD - Secondary Discharge Diagnosis Chronic Problems (Last Reviewed 09/12/18 @ 08:04 by Yaritza Braden) FPC current use of 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) Chronic systolic CHF (congestive heart failure) (Chronic) CAD (coronary artery disease) (Chronic) Presence of implantable cardioverter-defibrillator (ICD) (Chronic) Type 2 diabetes mellitus without complications (Chronic) DDD (degenerative disc disease) (Chronic) 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) History of coronary artery stent placement (Chronic 06/08/16) SARA-RCA 06/15/2011, SARA-OM1 06/30/2011, SARA-LAD 08/20/2014, SARA-Prox- RCA 06/08/2016 Atherosclerosis of coronary artery of [place] heart without angina pectoris (Chronic) SARA-RCA 06/15/2011, SARA-OM1 06/30/2011, SARA-LAD 08/20/2014, SARA-Prox- RCA 06/08/2016 Paroxysmal atrial fibrillation (Chronic) Hypertension (Chronic) Hyperlipidemia (Chronic) Type II diabetes mellitus (Chronic) Hyperkalemia (Chronic) Chronic renal failure, stage 3 (moderate) (Chronic) STEMI (ST elevation myocardial infarction) (Chronic) Anemia of chronic renal failure, stage 3 (moderate) (Chronic) Obesity (BMI 30.0-34.9) (Chronic) Cardiomyopathy, ischemic (Chronic) Hospital Course and Treatment Imaging Results: Clinical Impression(s) from Imaging Studies Chest X-Ray 12/05/18 19:45 IMPRESSION: Stable mild cardiomegaly with cardiac pacemaker. There is no acute pulmonary disease or interval change. Electronically Signed: Kash Teague DO at 20:03 EDT Tel [phone], Service support , Cardiology Operations: None Procedures: None Summary of Care Provided: The patient is a 68 year old M with past medical history of chronic systolic CHF, EF 45% status post AICD who comes in with progressive shortness of breath associate with orthopnea and PND with dyspnea on exertion. Patient's admitting blood work was significant for potassium of 3.3, BUN 27, creatinine 2.02. His BNP was 353. Chest x-ray revealed cardiomegaly. Patient was admitted to PCU, started on Lasix drip with good diuresis. He was subsequently to switch to IV Lasix. Patient was without oxygen the whole time. He was evaluated for home oxygen at discharge and did not qualify. Cardiology was consulted and recommended patient be discharged on Lasix 80 mg p.o. twice daily as well as metolazone 2.5 mg weekly. Follow-up with cardiology within 2 weeks. He knows that he needs repeat blood work to check on slight increase in his creatinine at discharge. He will check on his kidney function test within a week. Subjective: On the day of discharge, patient was seen and examined. He denied any complaints. He denied any progressive shortness of breath, chest pain or dizziness. Objective: Physical Exam General: Alert, Oriented x3, Cooperative HEENT: Atraumatic, PERRLA, EOMI, Normocephalic Neck: Supple, No JVD, Negative Carotid Bruits Lungs: Clear to auscultation, Diminished Cardiovascular: Regular rate, Regular Rhythm, Normal S1, Normal S2, No murmurs Abdomen: Bowel Sounds Present, Soft, Non Tender, Non-Distended Extremities: No edema Skin: No rashes, No breakdown Musculoskeletal: No Tenderness to Palpation of Joints or Extremities Neurological: Cranial nerves II-XII grossly intact, Neuro grossly intact Psych/Mental Status: Normal Affect, Appropriate - Physical Exam Vital Signs Temp Pulse Resp BP Pulse Ox 98.0 F 56 L 18 117/61 95 12/07/18 09:51 12/07/18 09:51 12/07/18 09:51 12/07/18 09:51 12/07/18 09:51 Oxygen Delivery Method Room Air Weight: 94.4 kg Body Mass Index (BMI) 30.7 Finger Stick Blood Glucose 39 Intake and Output for Last 24 Hours 12/05/18 12/06/18 12/07/18 23:59 23:59 23:59 Intake Total 242.83 / 242.83 1463.18 / 1463.18 120 / 120 Output Total 675 / 675 2700 / 2700 800 / 800 Balance -432.17 / -432.17 -1236.82 / -1236.82 -680 / -680 Laboratory Tests Past 24 Hrs 12/07/18 05:35 Sodium 137 Potassium 3.5 Chloride 98 Carbon Dioxide 30.0 Anion Gap 9 BUN 42 H Creatinine 2.57 H Estim Creat Clear Calc 28.27 Est GFR (MDRD) Af Amer 32 L Est GFR (MDRD) Non-Af 27 L BUN/Creatinine Ratio 16.3 Glucose 220 H Calcium 8.6 POC Glucose 12/07/18 12/06/18 12/06/18 05:59 21:17 16:48 POC Glucose 247 H 215 H 257 H 12/06/18 11:46 POC Glucose 282 H Discharge Diet: Low fat/ Low Cholesterol, 6 Cup Fluid Restriction, 2000 mg Sodium Diet Discharge Activity: Return to Normal Activity Home Medications: Medications to take at Discharge Aspirin [Aspirin, Baby] 81 mg PO DAILY@0800 12/28/14 apixaban 2.5 mg tablet 2.5 mg PO BID 01/25/18 pantoprazole 40 mg tablet,delayed release 40 mg PO BID #60 tab 04/29/18 loratadine 10 mg tablet 10 mg PO DAILY 05/12/18 Amiodarone HCl 200 mg PO DAILY 05/17/18 Insulin NPH/Reg 70/30 [Novolin 70/30] 32 units SUBCUT DAILY 05/17/18 Insulin NPH/Reg 70/30 [Novolin 70/30] 38 units SQ QHS 05/17/18 Isosorbide Mononitrate [Imdur] 120 mg PO BID 05/17/18 clopidogrel 75 mg tablet 75 mg PO DAILY #30 tab 06/01/18 hydralazine 100 mg tablet 100 mg PO TID #90 tab 06/23/18 losartan 100 mg tablet 100 mg PO DAILY #90 tab 07/04/18 carvedilol 25 mg tablet 25 mg PO BID #60 tab 08/22/18 pravastatin 40 mg tablet 40 mg PO QHS #90 tab 09/22/18 Albuterol Inhaler [Ventolin Hfa] 1 - 2 puff INHALATION Q4H PRN PRN #1 inhaler 10/16/18 Cephalexin [Keflex] 500 mg PO Q6 #28 cap 12/02/18 Acetaminophen [Tylenol Tablet] 650 mg PO Q4H PRN PRN tab 12/07/18 Amlodipine [Norvasc] 5 mg PO DAILY 30 Days #30 tab 12/07/18 Furosemide [Lasix] 80 mg PO BIDLX 30 Days #60 tab 12/07/18 Metolazone 2.5 mg PO QWEEK #4 tab 12/07/18 Following Prescrptions Were Given to Patient: Furosemide [Lasix] 80 mg PO BIDLX 30 Days #60 tab Transmission Status: Received by [facility] #40 Metolazone 2.5 mg PO QWEEK #4 tab Transmission Status: Received by [facility] #40 Amlodipine [Norvasc] 5 mg PO DAILY 30 Days #30 tab Transmission Status: Received by [facility] #40 Primary Care Physician: Jennifer Spicer DO [Primary Care Provider] - Please follow up with your Primary Care Physician in: within 1-2 weeks Please Follow Up With: Marco Antonio Butler MD When: as scheduled Disposition: Home Minutes spent on discharge:: 40 Patient Condition:: Stable Medical Necessity - Tobacco Use Smoking Status: Former smoker Tobacco Use: Non-smoker Meaningful Use Info Meaningful Use Diagnoses (Choose all that apply): CHF - CHF AN/ARB ordered at discharge?: Yes Documented LVEF (%): 45 Code Visit Inpatient E&M: 67527 Disch Hosp
== END 2018-12-07 11:13 | disposition home or self-care (01) ==
LOC: ED 20:38 → PCU 21:23
PROVIDERS: Nurse Practitioner Family; Admitting Provider Family Medicine; Emergency Provider Emergency Medicine; Family Provider Family Medicine; PCP Family Medicine; Visit Provider Internal Medicine
DX: I13.0 Hypertensive heart and chronic kidney disease with heart failure and stage 1 through stage 4 chronic kidney disease, or unspecified chronic kidney disease (principal); E11.22 Type 2 diabetes mellitus with diabetic chronic kidney disease; I50.23 Acute on chronic systolic (congestive) heart failure; I25.10 Atherosclerotic heart disease of native coronary artery without angina pectoris; E78.5 Hyperlipidemia, unspecified; I25.2 Old myocardial infarction; D63.1 Anemia in chronic kidney disease; N18.3 Chronic kidney disease, stage 3 (moderate); I48.0 Paroxysmal atrial fibrillation; I27.21 Secondary pulmonary arterial hypertension; I25.5 Ischemic cardiomyopathy; E66.9 Obesity, unspecified; Z87.891 Personal history of nicotine dependence; Z95.810 Presence of automatic (implantable) cardiac defibrillator; Z79.01 Long term (current) use of 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s; Z79.4 Long term (current) use of insulin; Z79.82 Long term (current) use of aspirin; Z79.899 Other long term (current) drug therapy; Z79.02 Long term (current) use of antithrombotics/antiplatelets; Z68.30 Body mass index [BMI] 30.0-30.9, adult; Z71.3 Dietary counseling and surveillance; I48.92 Unspecified atrial flutter
CPT/HCPCS: 36415; 71046; 80048; 82962; 83735; 83880; 84484; 85025; 93005; 93306; 94640; 96365; 96366; 99218; 99285; A4216; G0378; J1940

== ENCOUNTER → 2018-12-19 15:44 | Outpatient (CLI) | payer MEDICARE, SELFPAY ==
[2016-06-12 14:02] VITALS: BMI 29.7
[2018-12-19 15:36] VITALS: BMI 30.7
[2018-12-19 18:24] LABS: AST(SGOT) 18 U/L (15-37); Alanine Aminotransfer ALT/SGPT 24 U/L (16-61); Albumin, Serum 3.8 g/dL (3.2-5.0); Alkaline Phosphatase 80 U/L (45-117); Bilirubin, Direct 0.15 mg/dL (0.00-0.30); Cholesterol 128 mg/dL (200); Globulin 4.1 g/dL (2.2-4.2); High Density Lipoprotein 44 mg/dL; Protein, Total 7.9 g/dL (6.4-8.2); Triglycerides 151 mg/dL; Very Low Density Lipoprotein 30 mg/dL (5-40)
== END ==
LOC: LAB 15:45
PROVIDERS: Family Provider Family Medicine; PCP Family Medicine; Referring Provider Internal Medicine Cardiovascular Disease; Visit Provider Internal Medicine Cardiovascular Disease
DX: E78.00 Pure hypercholesterolemia, unspecified (principal)
CPT/HCPCS: 36415; 80061; 80076

== ENCOUNTER 2018-12-26 02:33 | Emergency (ER) | payer MEDICARE, SELFPAY ==
[2016-06-12 14:02] VITALS: BMI 29.7
[2018-12-19 15:36] VITALS: BMI 30.7
[2018-12-26 02:34] VITALS: BP 151/79; PULSE 59; RESP 16; TEMP 36.9; O2SAT 97; BMI 32.1
--- NOTE | 2018-12-26 02:51 | ED.VIS.GEN ---
History of Present Illness Chief Complaint: Hypotension Narrative: Patient is a 68-year-old male who presents with low blood pressure. Normally the patient's blood pressure runs 140-150 systolic. He follows with Dr. Butler. His amiodarone was recently increased last week from once a day to twice a day. At about 1:00 this morning the patient felt hot. He did not have any chest pain or shortness of breath. He checked his blood pressure and it was 117 systolic and then when he rechecked it was 112 systolic. He was concerned that this was low for him. 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 Currently the patient is completely asymptomatic. Past Medical History - Allergies and Home Meds Allergies/Adverse Reactions: Allergies diltiazem Allergy (Verified 12/07/18 10:29) LOWER LEG SWELLING atorvastatin calcium [From Lipitor] Adverse Reaction (Verified 12/02/18 11:12) MUSCLE WEAKNESS Primary Care Physician: Jennifer Spicer DO [Primary Care Provider] - Past Medical History: - - Coronary disease, CHF, diabetes, hypertension Surgical History: - - s/p stents, AICD. Smoking Status: Former smoker - Family History Maternal Family History: Family History (Last Reviewed 12/19/18 @ 14:46 by Lisette Elizondo) Brother Sudden cardiac Family History: Reports: - Paternal Family History: Family History (Last Reviewed 12/19/18 @ 14:46 by Lisette Elizondo) Brother Sudden cardiac Family History: Reports: - Sibling Family History: Family History (Last Reviewed 12/19/18 @ 14:46 by Lisette Elizondo) Brother Sudden cardiac Family History: Reports: Heart Disease Review of Systems All systems negative except as indicated General: Denies: Fever Cardiovascular: Denies: Chest pain Respiratory: Denies: Dyspnea Gastrointestinal: Denies: Nausea, Vomiting Physical Exam Vital Signs/Narrative: Vital Signs Temp Pulse Resp BP Pulse Ox 12/26/18 02:34 98.5 F 59 L 16 151/79 H 97 Inital Vital Signs reviewed: Yes General: Well nourished Head: Normocephalic Eyes: EOMI ENT: Moist mucous membranes Neck: Supple Cardiovascular: Regular rate, Regular rhythm Respiratory: No distress Abdomen: Soft, Nontender Extremities: Nontender, No edema Skin: Normal color Neurological: Alert Psychological: Normal affect Diagnostic/Tx/Re-eval - Medical Decision Making Patient and family were reassured. They were advised that the blood pressures that he had at home are actually still within the normal range although lower than he had previously been. This is likely related to the recent medication changes. Given that he is currently asymptomatic no work-up is necessary at this time. I would not adjust his medications at this time. He was advised to contact his product support sales representative today during daytime hours to discuss their concerns. He does however understand to return for new or worsening symptoms. They were advised on normal blood pressure ranges and at what numbers I would recommend they be evaluated. ED Disposition - Plan for ED Patient: Disposition: Home or Assisted Living Diagnosis: Encounter for medical screening examination Instructions: MEDICAL SCREENING EXAM, NonUrgent Referrals: Jennifer Spicer DO [Primary Care Provider] - Marco Antonio Butler MD [STAFF PHYSICIAN] -
[2018-12-26 03:07] VITALS: BP 150/79; PULSE 64; RESP 16; RESP 19; O2SAT 97
== END 2018-12-26 03:08 | disposition home or self-care (01) ==
LOC: ED 03:07
PROVIDERS: Emergency Provider Emergency Medicine; Family Provider Family Medicine; PCP Family Medicine
DX: Z00.8 Encounter for other general examination (principal); I25.10 Atherosclerotic heart disease of native coronary artery without angina pectoris; I11.0 Hypertensive heart disease with heart failure; I50.9 Heart failure, unspecified; E11.9 Type 2 diabetes mellitus without complications; Z95.5 Presence of coronary angioplasty implant and graft; Z95.810 Presence of automatic (implantable) cardiac defibrillator; Z82.41 Family history of sudden cardiac death; Z79.4 Long term (current) use of insulin; Z79.82 Long term (current) use of aspirin; Z79.899 Other long term (current) drug therapy; Z87.891 Personal history of nicotine dependence
CPT/HCPCS: 99282

== ENCOUNTER 2018-12-28 17:36 | Observation (INO) | payer MEDICARE, SELFPAY ==
[2016-06-12 14:02] VITALS: BMI 29.7
[2018-12-28 17:37] VITALS: BP 154/77; PULSE 96; RESP 18; TEMP 36.6; O2SAT 93; BMI 32.3
[2018-12-28 18:20] VITALS: O2SAT 100
--- NOTE | 2018-12-28 18:20 | EKG12_ITS ---
Test Reason : CP Blood Pressure : / mmHG Vent. Rate : 100 BPM Atrial Rate : 085 BPM P-R Int : 000 ms QRS Dur : 108 ms QT Int : 400 ms P-R-T Axes : 000 -45 042 degrees QTc Int : 516 ms Atrial fibrillation Left axis deviation Inferior infarct (cited on or before 07-JAN-2018), age undetermined Anterolateral infarct (cited on or before 07-JAN-2018), age undetermined Prolonged QT Abnormal ECG Confirmed by LUPE METZ, LARRY ([id number]), acquisitions editor LISBET HWAK ([id number]) on 12/30/2018 10:18:42 A M Referred By: Marco Antonio Butler Confirmed By:SEFERINO ANDRADE MD
--- NOTE | 2018-12-28 18:20 | RAD_ITS ---
STUDY: X-RAY CHEST REASON FOR EXAM: Male, 68 years old. Chest pain and numbness. Tingling in left arm. TECHNIQUE: PA and lateral views of the chest. COMPARISON: December 05, 2018. FINDINGS: Pacemaker device on the left is stable. There are monitoring devices. The lungs are clear and expanded. There is no demonstrated pleural abnormality. Normal size heart. Normal mediastinum and loco. Normal visualized pulmonary arteries. Normal visualized aortic arch and descending thoracic aorta. There are diffuse degenerative changes of the visualized thoracic spine. Normal visualized ribs, clavicles, and shoulders. There is no demonstrated abnormality of the visualized soft tissue structures of the upper abdomen. RAD/Chest PA and Lateral IMPRESSION: Degenerative changes, as described above. No demonstrated acute cardiopulmonary process. Electronically Signed: Emigdio Hill MD at 19:05 EDT , Service support ,
--- NOTE | 2018-12-28 18:23 | ED.VIS.GEN ---
History of Present Illness Chief Complaint: Chest Pain Informant: Patient, Family Onset: Today Context: Sudden Onset Timing: Continuous, Waxes and wanes Narrative: Patient is a 68-year-old male with history of significant cardiac disease including 5 MIs and 6 cardiac stents, most recent 3 years ago as well as a defibrillator presenting with chest pain. Patient states the chest pain started this morning and is in the center of his chest. He states that sometimes radiates down his left arm and feels tingling. He notes that since this morning with chest pain has been relatively constant but is been waxing and waning in intensity. Right now he states it is very dull. He denies any associated shortness of breath. He also states he feels as a tremor in his arms. Patient does have atrial fibrillation is currently on amiodarone. He also takes Eliquis and Plavix. He notes his stomach does feel slightly upset with this. He denies any sweating or change in bowel habits. He denies any other complaints at this time. Past Medical History - Allergies and Home Meds Allergies/Adverse Reactions: Allergies diltiazem Allergy (Verified 12/28/18 17:40) LOWER LEG SWELLING atorvastatin calcium [From Lipitor] Adverse Reaction (Verified 12/28/18 17:40) MUSCLE WEAKNESS Past Medical History: - - Coronary artery disease, atrial fibrillation, hypertension Surgical History: - - s/p stents, AICD. Smoking Status: Former smoker - Family History Maternal Family History: Family History (Last Reviewed 12/19/18 @ 14:46 by Lisette Elizondo) Brother Sudden cardiac Family History: Reports: - Paternal Family History: Family History (Last Reviewed 12/19/18 @ 14:46 by Lisette Elizondo) Brother Sudden cardiac Family History: Reports: - Sibling Family History: Family History (Last Reviewed 12/19/18 @ 14:46 by Lisette Elizondo) Brother Sudden cardiac Family History: Reports: Heart Disease Review of Systems All systems negative except as indicated Cardiovascular: Reports: Chest pain Gastrointestinal: Reports: Nausea Neurological: Reports: Parasthesia - Left arm, - - Tremor bilaterally Physical Exam Vital Signs/Narrative: Vital Signs Temp Pulse Resp BP Pulse Ox 12/28/18 17:37 97.9 F 96 18 154/77 H 93 Inital Vital Signs reviewed: Yes General: Well nourished, Well developed, No Acute Distress Head: Normocephalic, Atraumatic Eyes: Perrl, EOMI, Pale conjunctiva ENT: Moist mucous membranes, No rhinorrhea Neck: Supple, Nontender, No JVD Cardiovascular: Regular rate, Regular rhythm, No murmurs Respiratory: No distress, CTA bilaterally, Chest nontender Abdomen: Soft, Nondistended, Normal bowel sounds, Tender - Epigastric. Negative for: Rodriguez's sign Back: Nontender, Normal Inspection Extremities: Nontender, No edema Skin: No rash, Pallor Neurological: Alert, Oriented x3, Cranial nerves II-XII grossly intact, Normal Strength, Normal Sensation Psychological: Normal affect, Normal Mood Diagnostic/Tx/Re-eval Chest X-Ray - ED: 2 View, Read by ED Physician, Read by Radiologist, No Acute Disease Diagnostic Data Chest X-Ray 12/28/18 18:20 IMPRESSION: Degenerative changes, as described above. No demonstrated acute cardiopulmonary process. Electronically Signed: Emigdio Hill MD at 19:05 EDT , Service support , Laboratory Results - last 24 hr 12/28/18 12/28/18 18:22 18:22 WBC 9.4 RBC 5.24 Hgb 14.9 Hct 46.3 MCV 88.4 MCH 28.4 MCHC 32.2 RDW Std Deviation 45.7 H RDW Coeff of [place] 14.3 Plt Count 229 MPV 9.2 Immature Gran % (Auto) 0.900 Neut % (Auto) 79.1 H Lymph % (Auto) 7.4 L [place] % (Auto) 10.7 H Eos % (Auto) 1.5 Baso % (Auto) 0.4 Absolute Neuts (auto) 7.4 Absolute Lymphs (auto) 0.69 L Nucleated RBC % 0 Sodium 136 Potassium 3.6 Chloride 98 Carbon Dioxide 31.0 Anion Gap 7 BUN 66 H Creatinine 3.15 H Estim Creat Clear Calc 23.07 Est GFR (MDRD) Af Amer 26 L Est GFR (MDRD) Non-Af 21 L BUN/Creatinine Ratio 21.0 H Glucose 72 L Calcium 8.7 Total Bilirubin 0.50 Direct Bilirubin 0.19 AST 19 ALT 25 Alkaline Phosphatase 80 Troponin I < 0.015 Total Protein 8.3 H Albumin 4.1 Globulin 4.2 Lipase 92 - Rhythm Strip Rhythm Strip: A-fib Rate: 98 Ectopy: None - EKG Initial EKG Interpretation: Atrial Fibrillation, - - Atrial fibrillation at a rate of 100 Left axis deviation QRS 108 QT/QTc 400/[address] segments - Medical Decision Making Patient is evaluated for chest pain that started earlier today. He does not have any dynamic EKG changes. He has low normal blood pressure. He i not given nitro for his pain. He is given a full dose aspirin. Troponin is negative. His creatinine is mildly elevated above his baseline but he does not meet criteria for acute kidney injury. Patient does have a significant cardiac history and warrants further observation for ACS. He is agreeable to this plan. He stable for the general medical floor at time of disposition. Patient is not hypoxic or complain of any shortness of breath. I do not suspect PE or other acute pulmonary pathology causing his symptoms today. ED Disposition - Plan for ED Patient: Disposition: Acute Care Hospital [facility] Diagnosis: Chest pain
[2018-12-28] MEDS: Ondansetron 4 MG/2 ML Vial IV (18:32)
[2018-12-28] MEDS: Aspirin 81 MG TAB.CHEW 324 MG PO (18:32)
[2018-12-28 18:41] LABS: Absolute Lymphocyte Count 0.69 X10^3/uL (0.83-4.51); Absolute Neutrophil Count 7.4 X10^3/uL (2.0-7.7); Basophil# 0.04 X10^3/uL; Basophil% 0.4 % (0-1); Eosinophil# 0.14 X10^3/uL; Eosinophils% 1.5 % (0-5); Hematocrit 46.3 % (40-54); Hemoglobin 14.9 g/dL (13.0-16.5); Lymphocyte # 0.69 X10^3/ul (4.0); Lymphocyte % 7.4 % (19-41); Mean Corp Hgb Conc 32.2 g/dL (32-36); Mean Corpuscular Hgb 28.4 pg (27.0-32.0); Mean Corpuscular Volume 88.4 fL (80-94); Mean Platelet Vol. 9.2 fl (6.2-12.0); Monocyte% 10.7 % (0-10); NRBC Flagged by Analyzer 0 % (0-5); Neutrophil # 7.42 X10^3/uL (2.7-7.7); Neutrophil % 79.1 % (47-70); Platelet Count 229 K/mm3 (150-450); RBC Distribution Width CV 14.3 % (11.6-14.6); RBC Distribution Width SD 45.7 fl (35.1-43.9); Red Blood Count 5.24 M/mm3 (4.6-6.2); White Blood Count 9.4 K/mm3 (4.4-11.0)
[2018-12-28 18:53] LABS: AST(SGOT) 19 U/L (15-37); Alanine Aminotransfer ALT/SGPT 25 U/L (16-61); Albumin, Serum 4.1 g/dL (3.2-5.0); Alkaline Phosphatase 80 U/L (45-117); Anion Gap 7 (5-15); BUN 66 mg/dL (7-18); Bilirubin, Direct 0.19 mg/dL (0.00-0.30); Calcium,Total 8.7 mg/dL (8.5-10.1); Chloride 98 mmol/L (98-107); Creatinine, Serum 3.15 mg/dL (0.70-1.30); EST Glomerular Filtration Rate 21 mL/min (>60); Est Glom Filt Rate - Afr Amer 26 mL/min (>60); Estimated Creatinine Clearance 23.07 ml/min; Globulin 4.2 g/dL (2.2-4.2); Glucose 72 mg/dL (74-106); Lipase 92 U/L (73-393); Potassium 3.6 mmol/L (3.5-5.1); Protein, Total 8.3 g/dL (6.4-8.2); Sodium Level 136 mmol/L (136-145)
--- NOTE | 2018-12-28 19:58 | HP.PCM_ITS ---
Problem List (1) CHF (congestive heart failure) Status: Acute (2) Chest pain Status: Acute Qualifiers: Chest pain type: unspecified Qualified Code(s): R07.9 - Chest pain, unspecified (3) Chronic systolic CHF (congestive heart failure) Status: Chronic (4) CAD (coronary artery disease) Status: Chronic Qualifiers: Coronary Disease-Associated Artery/Lesion type: [place] artery [place] vs. transplanted heart: [place] heart Associated angina: without angina Qualified Code(s): I25.10 - Atherosclerotic heart disease of [place] coronary artery without angina pectoris (5) Presence of implantable cardioverter-defibrillator (ICD) Status: Chronic (6) Type 2 diabetes mellitus without complications Status: Chronic Qualifiers: Diabetes mellitus nursing home insulin use: with nursing home use Qualified Code(s): E11.9 - Type 2 diabetes mellitus without complications; Z79.4 - assisted (current) use of insulin (7) Secondary pulmonary arterial hypertension Status: Chronic (8) History of coronary artery stent placement Status: Chronic Comment: SARA-RCA 06/15/2011, SARA-OM1 06/30/2011, SARA-LAD 08/20/2014, SARA-Prox- RCA 06/08/2016 (9) Atherosclerosis of coronary artery of [place] heart without angina pectoris Status: Chronic Qualifiers: Coronary Disease-Associated Artery/Lesion type: [place] artery Qualified Co de(s): I25.10 - Atherosclerotic heart disease of [place] coronary artery without angina pectoris Comment: SARA-RCA 06/15/2011, SARA-OM1 06/30/2011, SARA-LAD 08/20/2014, SARA-Prox- RCA 06/08/2016 (10) Paroxysmal atrial fibrillation Status: Chronic (11) Hyperkalemia Status: Chronic (12) Chronic renal failure, stage 3 (moderate) Status: Chronic (13) Obesity (BMI 30.0-34.9) Status: Chronic History of Present Illness Date of Admission: 12/28/18 Chief Complaint: Chest pain The patient is a 68 year old M with PMH as below who presents to the hospital with 24-hour history of chest pain. He states this started last night before bed and then this morning when he got up he went grocery shopping and the pain became a little bit more intense. He felt that it would go away if he laid down but it was shooting across his chest and therefore he came into the hospital. He does have a significant cardiac history with multiple stents and an ICD placement. He does have a history of A. 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 twice daily however he was not able to tolerate this dosing because his blood pressure was dropping and therefore this was discontinued and he was brought back down to 200 mg daily. He did have a stress test in May 2018 which was essentially normal with an EF of 45%, and he had a's echo earlier this month with an EF of 45% and stage II diastolic dysfunction. He currently denies any shortness of breath, and states that his chest pain is localized to his left chest without radiation. In the ER his EKG demonstrated A. fib which is a chronic finding for him, and a normal troponin. Creatinine was elevated to 3.15 his baseline is around 2. 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) Chronic systolic CHF (congestive heart failure) (Chronic) CAD (coronary artery disease) (Chronic) Presence of implantable cardioverter-defibrillator (ICD) (Chronic) Type 2 diabetes mellitus without complications (Chronic) DDD (degenerative disc disease) (Chronic) 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) History of coronary artery stent placement (Chronic 06/08/16) SARA-RCA 06/15/2011, SARA-OM1 06/30/2011, SARA-LAD 08/20/2014, SARA-Prox- RCA 06/08/2016 Atherosclerosis of coronary artery of [place] heart without angina pectoris (Chronic) SARA-RCA 06/15/2011, SARA-OM1 06/30/2011, SARA-LAD 08/20/2014, SARA-Prox- RCA 06/08/2016 Paroxysmal atrial fibrillation (Chronic) Hypertension (Chronic) Hyperlipidemia (Chronic) Type II diabetes mellitus (Chronic) Hyperkalemia (Chronic) Chronic renal failure, stage 3 (moderate) (Chronic) STEMI (ST elevation myocardial infarction) (Chronic) Anemia of chronic renal failure, stage 3 (moderate) (Chronic) Obesity (BMI 30.0-34.9) (Chronic) Cardiomyopathy, ischemic (Chronic) Medical History: Medical History (Last Reviewed 09/16/19 @ 14:46 by Lisette Elizondo) 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) Z79.01 Chronic systolic CHF (congestive heart failure) (Chronic) I50.22 DDD (degenerative disc disease) (Chronic) 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) I27.21 Atherosclerosis of coronary artery of [place] heart without angina pectoris (Chronic) I25.10 SARA-RCA 06/15/2011, SARA-OM1 06/30/2011, SARA-LAD 08/20/2014, SARA-Prox- RCA 06/08/2016 Paroxysmal atrial fibrillation (Chronic) I48.0 Hypertension (Chronic) I10 Hyperlipidemia (Chronic) E78.5 Type II diabetes mellitus (Chronic) E11.9 Hyperkalemia (Chronic) E87.5 Chronic renal failure, stage 3 (moderate) (Chronic) N18.3 STEMI (ST elevation myocardial infarction) (Chronic) Cardiogenic shock (Resolved) Onset Date: 06/08/16 R57.0 Hypertensive emergency (Resolved) I16.1 Anemia of chronic renal failure, stage 3 (moderate) (Chronic) N18.3, D63.1 Obesity (BMI 30.0-34.9) (Chronic) E66.9 Cardiomyopathy, ischemic (Chronic) I25.5 History of cardioversion Onset Date: 04/10/16 Z98.890 01/14/15 (unsuccessful), 04/10/2016 Old myocardial infarction I25.2 inferior lateral and Anterior Apical Esophagitis determined by endoscopy (Resolved) Onset Date: 05/06/17 K20.9 Systolic CHF, acute on chronic (Resolved) I50.23 Allergies diltiazem Allergy (Verified 12/28/18 17:40) LOWER LEG SWELLING atorvastatin calcium [From Lipitor] Adverse Reaction (Verified 12/28/18 17:40) MUSCLE WEAKNESS Home Medications: Ambulatory Orders Medication Instructions Recorded Aspirin [Aspirin, Baby] 81 mg PO DAILY@0800 12/28/14 apixaban 2.5 mg tablet 2.5 mg PO BID 01/25/18 pantoprazole 40 mg tablet,delayed 40 mg PO BID #60 tab 04/29/18 release loratadine 10 mg tablet 10 mg PO DAILY 05/12/18 Insulin NPH/Reg 70/30 [Novolin 32 units SUBCUT DAILY 05/17/18 70/30] Insulin NPH/Reg 70/30 [Novolin 38 units SQ QHS 02/12/19 70/30] Isosorbide Mononitrate [Imdur] 120 mg PO BID 05/17/18 clopidogrel 75 mg tablet 75 mg PO DAILY #30 tab 06/01/18 hydralazine 100 mg tablet 100 mg PO TID #90 tab 06/23/18 carvedilol 25 mg tablet 25 mg PO BID #60 tab 08/22/18 pravastatin 40 mg tablet 40 mg PO QHS #90 tab 09/22/18 Amlodipine [Norvasc] 5 mg PO DAILY 30 Days #30 tab 12/07/18 Furosemide [Lasix] 80 mg PO BIDLX 30 Days #60 tab 12/07/18 amiodarone 200 mg tablet 200 mg PO BID tab 12/19/18 Losartan Potassium 50 mg PO DAILY 12/28/18 Metolazone 2.5 mg PO TU 12/28/18 Ranitidine [Zantac] 150 mg PO BID 12/28/18 Surgical History: Surgical History (Last Reviewed 12/19/18 @ 14:46 by Lisette Elizondo) Presence of implantable cardioverter-defibrillator (ICD) (Chronic) Z95.810 History of coronary artery stent placement (Chronic) Onset Date: 06/08/16 Z95.5 SARA-RCA 06/15/2011, SARA-OM1 06/30/2011, SARA-LAD 08/20/2014, SARA-Prox- RCA 06/08/2016 H/O elbow surgery Z98.890 H/O left wrist surgery Z98.890 S/P right inguinal hernia repair Z98.890, Z87.19 Status post knee surgery Z98.890 Surgical History: - - s/p stents, AICD. Psychiatric History: No pertinent psych hx Smoking Status: Former smoker Tobacco Use: Cigarettes Alcohol: None Drugs: None - *Family History Maternal Family History: Family History (Last Reviewed 12/19/18 @ 14:46 by Lisette Elizondo) Brother Sudden cardiac History Items: - Paternal Family History: Family History (Last Reviewed 12/19/18 @ 14:46 by Lisette Elizondo) Brother Sudden cardiac History Items: - Sibling Family History: Family History (Last Reviewed 12/19/18 @ 14:46 by Lisette Elizondo) Brother Sudden cardiac History Items: Heart Disease Review of Systems Constitutional: Denies: Chills, Fever, Weight Change HEENT: Denies: Head Aches, Sinus Congestion, Sinus Drainage Cardiovascular: Reports: Chest Pain. Denies: Palpitations Respiratory: Denies: Cough, Shortness of breath at rest, Sputum production Gastrointestinal: Denies: Abdominal Pain, Nausea, Vomiting Genitourinary: Denies: Dysuria Musculoskeletal: Denies: Joint Pain, Joint Tenderness Skin: Denies: Rash, Wounds Neurological: Denies: Numbness, Tingling, Focal weakness Psychiatric: Denies: Anxiety, Depression, Homicidal Ideations, Suicidal Ideations Hematologic/ Lymphatic: Denies: Easy Bruising, Easy Bleeding VTE Information - Inpt Only VTE Present on Admission: No - Physical Exam General: Alert, Oriented x3, Cooperative, No apparent distress HEENT: Atraumatic, PERRLA, EOMI, Normocephalic Oral: Dry Mucosa Neck: Supple, No JVD Lungs: Clear to auscultation, Normal air movement, No rhonchi, No wheeze, No rales Cardiovascular: Regular rate, Regular Rhythm, Normal S1, Normal S2, No murmurs Abdomen: Soft, Non Tender, Non-Distended, No Hepato-splenomegaly, Obese Extremities: No edema, Capillary Refill Less than 3 Seconds Skin: No rashes, No breakdown Neurological: Neuro grossly intact, Sensory exam intact to light touch and pain Psych/Mental Status: Normal Affect, Appropriate Vital Signs Temp Pulse Resp BP Pulse Ox 97.9 F 96 18 154/77 H 100 12/28/18 17:37 12/28/18 17:37 12/28/18 17:37 12/28/18 17:37 12/28/18 18:20 Oxygen Delivery Method Room Air Weight: 219 lb Body Mass Index (BMI) 32.3 Finger Stick Blood Glucose 39 Laboratory Tests Past 24 Hrs 12/28/18 12/28/18 18:22 18:22 WBC 9.4 RBC 5.24 Hgb 14.9 Hct 46.3 MCV 88.4 MCH 28.4 MCHC 32.2 RDW Std Deviation 45.7 H RDW Coeff of [place] 14.3 Plt Count 229 MPV 9.2 Immature Gran % (Auto) 0.900 Neut % (Auto) 79.1 H Lymph % (Auto) 7.4 L [place] % (Auto) 10.7 H Eos % (Auto) 1.5 Baso % (Auto) 0.4 Absolute Neuts (auto) 7.4 Absolute Lymphs (auto) 0.69 L Nucleated RBC % 0 Sodium 136 Potassium 3.6 Chloride 98 Carbon Dioxide 31.0 Anion Gap 7 BUN 66 H Creatinine 3.15 H Estim Creat Clear Calc 23.07 Est GFR (MDRD) Af Amer 26 L Est GFR (MDRD) Non-Af 21 L BUN/Creatinine Ratio 21.0 H Glucose 72 L Calcium 8.7 Total Bilirubin 0.50 Direct Bilirubin 0.19 AST 19 ALT 25 Alkaline Phosphatase 80 Troponin I < 0.015 Total Protein 8.3 H Albumin 4.1 Globulin 4.2 Lipase 92 Assessment/Plan All Active Problems (Last Reviewed 12/19/18 @ 14:46 by Lisette Elizondo) CHF (congestive heart failure) (Acute) Nonsustained ventricular tachycardia (Acute) Chest pain (Acute) Cardiogenic shock (Resolved 06/08/16) Hypertensive emergency (Resolved) Abdominal pain (Resolved) Acute pulmonary edema (Resolved) Acute respiratory failure (Resolved) Atrial fibrillation with RVR (Resolved) Chest pain (Resolved) Elevated troponin (Resolved) Esophagitis determined by endoscopy (Resolved 05/06/17) Metabolic acidosis (Resolved) Shortness of breath (Resolved) Systolic CHF, acute on chronic (Resolved) 1. Chest pain/Chronic diastolic and systolic CHF/A-fib/HTN/ Ischemic cardiomyopathy/HLD - Serial troponins - Consult cardiology - C/w asa and plavix but will hold eliquis pending eval by cardiology for the possibility of a cath. He did have a stress in may which was unchanged and his echo was improved in terms of his EF - C/w amiodarone daily instead of BID, coreg, will hold his lasix as his creatinine is elevated and he states he has not been eating or drinking well - c/w fluid restriction 2. IDDM2 - Stable - On 70/30 at home and will continue with accucheck 3. GERD - stable - c/w PPI DNRCCA DVT: SCDs Code Visit OBSV E&M: [id number] Initial observation care L3
[2018-12-28 20:19] VITALS: BMI 30.4
[2018-12-28 20:20] VITALS: BMI 30.4
[2018-12-28 20:36] VITALS: BP 129/82; PULSE 108; RESP 18; TEMP 37; O2SAT 94
--- NOTE | 2018-12-28 20:53 | EKG12_ITS ---
Test Reason : CP ADMISSION Blood Pressure : / mmHG Vent. Rate : 091 BPM Atrial Rate : 057 BPM P-R Int : 000 ms QRS Dur : 104 ms QT Int : 410 ms P-R-T Axes : 000 -47 026 degrees QTc Int : 504 ms Normal sinus rhythm Left axis deviation Inferior infarct , age undetermined Anterolateral infarct , age undetermined Prolonged QT Abnormal ECG When compared with ECG of 28-DEC-2018 17:39, MANUAL COMPARISON REQUIRED, DATA IS UNCONFIRMED Confirmed by MCKENZIE SILVA ([id number]), news assignment editor CANELO DIETRICH ([id number]) on 01/10/2019 1:28:12 PM Referred By: RAMONA Confirmed By:MCKENZIE SILVA
[2018-12-28 21:04] VITALS: PULSE 96
[2018-12-28] MEDS: 0.9% Normal Saline 1,000 ML 75 ML IV (21:12)
[2018-12-28 22:21] VITALS: PULSE 108
[2018-12-28] MEDS: Pantoprazole Sodium 40 MG Tablet PO (22:21)
[2018-12-28] MEDS: Pravastatin 40 MG Tablet PO (22:21)
[2018-12-28] MEDS: Carvedilol 25 MG Tablet PO (22:21)
[2018-12-28] MEDS: hydrALAZINE 50 MG Tablet 100 MG PO (22:21)
[2018-12-28 22:30] LABS: Bedside Glucose 128 mg/dL (70-110)
[2018-12-28 23:00] VITALS: PULSE 86
[2018-12-29] VITALS (8 sets, daily range): BP systolic 100–130; BP diastolic 65–77; PULSE 75–96; RESP 16–18; TEMP 36.3–36.7; O2SAT 94–95
[2018-12-29] MEDS: Acetaminophen 325 MG Tablet 650 MG PO ×2 (00:19→08:29)
[2018-12-29 06:44] LABS: Absolute Lymphocyte Count 0.97 X10^3/uL (0.83-4.51); Absolute Neutrophil Count 5.2 X10^3/uL (2.0-7.7); Basophil# 0.04 X10^3/uL; Basophil% 0.5 % (0-1); Eosinophil# 0.17 X10^3/uL; Eosinophils% 2.3 % (0-5); Hemoglobin 13.4 g/dL (13.0-16.5); Lymphocyte # 0.97 X10^3/ul (4.0); Lymphocyte % 13.2 % (19-41); Mean Corp Hgb Conc 31.9 g/dL (32-36); Mean Corpuscular Hgb 28.7 pg (27.0-32.0); Mean Corpuscular Volume 89.9 fL (80-94); Mean Platelet Vol. 8.6 fl (6.2-12.0); Monocyte# 0.92 X10^3/uL; Monocyte% 12.5 % (0-10); NRBC Flagged by Analyzer 0 % (0-5); Neutrophil # 5.18 X10^3/uL (2.7-7.7); Neutrophil % 70.7 % (47-70); Platelet Count 181 K/mm3 (150-450); RBC Distribution Width CV 14.3 % (11.6-14.6); RBC Distribution Width SD 46.6 fl (35.1-43.9); Red Blood Count 4.67 M/mm3 (4.6-6.2); White Blood Count 7.3 K/mm3 (4.4-11.0)
[2018-12-29 07:06] LABS: Anion Gap 9 (5-15); BUN 64 mg/dL (7-18); BUN/Creat Ratio 20.4 RATIO (10-20); Calcium,Total 7.9 mg/dL (8.5-10.1); Chloride 102 mmol/L (98-107); Creatinine, Serum 3.13 mg/dL (0.70-1.30); EST Glomerular Filtration Rate 21 mL/min (>60); Est Glom Filt Rate - Afr Amer 26 mL/min (>60); Estimated Creatinine Clearance 23.22 ml/min; Glucose 145 mg/dL (74-106); Potassium 3.7 mmol/L (3.5-5.1); Sodium Level 139 mmol/L (136-145)
[2018-12-29] MEDS: Aspirin 81 MG TAB.CHEW PO (08:29)
--- NOTE | 2018-12-29 08:49 | CASEMGMT ---
LW/POA forms scanned into summary tab of echart. Daughter Stella Monroy is listed as medical POA. TREMAINE Gutierrez
--- NOTE | 2018-12-29 10:06 | DCINST_ITS ---
- Discharge Diagnoses Current Active Problems: Current Active and Chronic Problems (Last Reviewed 12/19/18 @ 14:46 by Lisette Elizondo) Chest pain (Acute) You will use the following diet at home:: Calorie/Carbohydrate Controlled (specify 1200, 1400, etc) - 1800 tangela Your food should be the consistency of: Regular Your liquids should be the consistency of: Regular/Thin Discharge Activity: Return to Normal Activity Allergies/Adverse Reactions: Allergies diltiazem Allergy (Verified 12/28/18 17:40) LOWER LEG SWELLING atorvastatin calcium [From Lipitor] Adverse Reaction (Verified 12/28/18 17:40) MUSCLE WEAKNESS Medications to take at Discharge Aspirin [Aspirin, Baby] 81 mg PO DAILY@0800 12/28/14 apixaban 2.5 mg tablet 2.5 mg PO BID 01/25/18 pantoprazole 40 mg tablet,delayed release 40 mg PO BID #60 tab 04/29/18 loratadine 10 mg tablet 10 mg PO DAILY 05/12/18 Insulin NPH/Reg 70/30 [Novolin 70/30] 32 units SUBCUT DAILY 05/17/18 Insulin NPH/Reg 70/30 [Novolin 70/30] 38 units SQ QHS 05/17/18 Isosorbide Mononitrate [Imdur] 120 mg PO BID 05/17/18 clopidogrel 75 mg tablet 75 mg PO DAILY #30 tab 06/01/18 hydralazine 100 mg tablet 100 mg PO TID #90 tab 06/23/18 carvedilol 25 mg tablet 25 mg PO BID #60 tab 08/22/18 pravastatin 40 mg tablet 40 mg PO QHS #90 tab 09/22/18 Amlodipine [Norvasc] 5 mg PO DAILY 30 Days #30 tab 12/07/18 Furosemide [Lasix] 80 mg PO BIDLX 30 Days #60 tab 12/07/18 amiodarone 200 mg tablet 200 mg PO BID tab 12/19/18 Losartan Potassium 50 mg PO DAILY 12/28/18 Ranitidine [Zantac] 150 mg PO BID 12/28/18 Primary Care Physician: Jennifer Spicer DO [Primary Care Provider] - Please follow up with your Primary Care Physician in: 3 weeks Test Results: Test results from this visit will be discussed in further detail at your follow- up appointment, if applicable.
[2018-12-29] MEDS: Carvedilol 25 MG Tablet PO (10:47)
[2018-12-29] MEDS: Amiodarone 200 MG Tablet PO (10:47)
[2018-12-29] MEDS: Pantoprazole Sodium 40 MG Tablet PO (10:48)
[2018-12-29] MEDS: amLODIPine 5 MG Tablet PO (10:48)
[2018-12-29] MEDS: Losartan Potassium 50 MG Tablet PO (10:48)
[2018-12-29] MEDS: Clopidogrel Bisulfate 75 MG Tablet PO (10:48)
--- NOTE | 2018-12-29 10:58 | PHA.DC.MR ---
Pharmacy Service has performed discharge medication reconciliation for this patient. No new medications. Home Medications Aspirin [Aspirin, Baby] 81 mg PO DAILY@0800 12/28/14 apixaban 2.5 mg tablet 2.5 mg PO BID 01/25/18 pantoprazole 40 mg tablet,delayed release 40 mg PO BID #60 tab 04/29/18 loratadine 10 mg tablet 10 mg PO DAILY 05/12/18 Insulin NPH/Reg 70/30 [Novolin 70/30] 32 units SUBCUT DAILY 05/17/18 Insulin NPH/Reg 70/30 [Novolin 70/30] 38 units SQ QHS 05/17/18 Isosorbide Mononitrate [Imdur] 120 mg PO BID 05/17/18 clopidogrel 75 mg tablet 75 mg PO DAILY #30 tab 06/01/18 hydralazine 100 mg tablet 100 mg PO TID #90 tab 06/23/18 carvedilol 25 mg tablet 25 mg PO BID #60 tab 08/22/18 pravastatin 40 mg tablet 40 mg PO QHS #90 tab 09/22/18 Amlodipine [Norvasc] 5 mg PO DAILY 30 Days #30 tab 12/07/18 Furosemide [Lasix] 80 mg PO BIDLX 30 Days #60 tab 12/07/18 amiodarone 200 mg tablet 200 mg PO BID tab 12/19/18 Losartan Potassium 50 mg PO DAILY 12/28/18 Ranitidine [Zantac] 150 mg PO BID 12/28/18 The patient's discharge medication list was reviewed for discrepancies and discrepancies were resolved.
--- NOTE | 2018-12-30 08:32 | PCM.DC.SUM ---
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) Chronic systolic CHF (congestive heart failure) (Chronic) CAD (coronary artery disease) (Chronic) Presence of implantable cardioverter-defibrillator (ICD) (Chronic) Type 2 diabetes mellitus without complications (Chronic) DDD (degenerative disc disease) (Chronic) 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) History of coronary artery stent placement (Chronic 06/08/16) SARA-RCA 06/15/2011, SARA-OM1 06/30/2011, SARA-LAD 08/20/2014, SARA-Prox- RCA 06/08/2016 Atherosclerosis of coronary artery of [place] heart without angina pectoris (Chronic) SARA-RCA 06/15/2011, SARA-OM1 06/30/2011, SARA-LAD 08/20/2014, SARA-Prox- RCA 06/08/2016 Paroxysmal atrial fibrillation (Chronic) Hypertension (Chronic) Hyperlipidemia (Chronic) Type II diabetes mellitus (Chronic) Hyperkalemia (Chronic) Chronic renal failure, stage 3 (moderate) (Chronic) STEMI (ST elevation myocardial infarction) (Chronic) Anemia of chronic renal failure, stage 3 (moderate) (Chronic) Obesity (BMI 30.0-34.9) (Chronic) Cardiomyopathy, ischemic (Chronic) Hospital Course and Treatment Operations: None Procedures: None Summary of Care Provided: The patient is a 68 year old M was seen in the emergency room [facility] a chief complaint of chest pain. Patient has known coronary artery disease and had a catheterization approximately 11 months ago which revealed no obstructive coronary lesions. Work-up in the emergency room included a chest x-ray, EKG, and troponin-troponin was normal, chest x-ray showed no acute disease, EKG showed atrial fibrillation. Patient was placed in observation status on PCU, his cardiac enzymes were cycled and they remain normal. 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 Butler) and Dr. Butler stated that he did not feel the patient needed further studies at this time and that he did not feel that he needed to see the patient in consultation-we discussed using Ranexa on the patient-Dr. Butler stated that in the past the patient could not afford Ranexa. I told the patient of my discussion with Dr. Butler, I also discussed this with the patient's daughter. I had a discussion with the patient's daughter who was in his room at the time of my examination, I advised her to go to Dr. Butler's office and get paperwork to receive Ranexa directly from the pharmaceutical company based on the patient's income level. She was able to get the paperwork from Dr. Butler's office and I wrote a prescription for Ranexa for the patient at the time of discharge. Patient's creatinine was also elevated over his usual baseline creatinine, I advised the patient to stop his Zaroxolyn that he takes once a week-I talked with Dr. Butler about this also and he agreed that this should be tried. I also told the daughter that the patient needs to see a air brake adjuster for ongoing care due to his elevated creatinine, I advised her to see Dr. Mas, she did go to Dr. Mas's office and was given a phone number to schedule an appointment for the patient. On examination he appeared in good health and spirits. Vital signs as documented. Skin warm and dry and without overt rashes. Neck without JVD. Lungs clear. Heart exam notable for irregular rhythm, normal sounds . Abdomen unremarkable and without evidence of organomegaly, masses, or abdominal aortic enlargement. Extremities nonedematous. Neuro: Cranial nerves II through XII are grossly intact, no focal motor deficits were noted, sensation to light touch and pinprick intact. Psych: Patient is alert and oriented x3, he does not appear anxious or depressed On 12/29/2018, patient was seen and examined and felt to be in stable condition for discharge home. - Physical Exam Vital Signs Temp Pulse Resp BP Pulse Ox 97.4 F L 96 16 126/77 H 95 12/29/18 10:40 12/29/18 11:30 12/29/18 10:40 12/29/18 10:54 12/29/18 10:40 Oxygen Delivery Method Room Air Weight: 94.211 kg Body Mass Index (BMI) 30.4 Finger Stick Blood Glucose 39 Intake and Output for Last 24 Hours 12/28/18 12/29/18 12/30/18 23:59 23:59 23:59 Intake Total 447.5 / 447.5 1237.5 / 1237.5 Balance 447.5 / 447.5 1237.5 / 1237.5 Discharge Activity: Return to Normal Activity Home Medications: Medications to take at Discharge Aspirin [Aspirin, Baby] 81 mg PO DAILY@0800 12/28/14 apixaban 2.5 mg tablet 2.5 mg PO BID 01/25/18 pantoprazole 40 mg tablet,delayed release 40 mg PO BID #60 tab 04/29/18 loratadine 10 mg tablet 10 mg PO DAILY 05/12/18 Insulin NPH/Reg 70/30 [Novolin 70/30] 32 units SUBCUT DAILY 05/17/18 Insulin NPH/Reg 70/30 [Novolin 70/30] 38 units SQ QHS 05/17/18 Isosorbide Mononitrate [Imdur] 120 mg PO BID 05/17/18 clopidogrel 75 mg tablet 75 mg PO DAILY #30 tab 06/01/18 hydralazine 100 mg tablet 100 mg PO TID #90 tab 06/23/18 carvedilol 25 mg tablet 25 mg PO BID #60 tab 08/22/18 pravastatin 40 mg tablet 40 mg PO QHS #90 tab 09/22/18 Amlodipine [Norvasc] 5 mg PO DAILY 30 Days #30 tab 12/07/18 Furosemide [Lasix] 80 mg PO BIDLX 30 Days #60 tab 12/07/18 amiodarone 200 mg tablet 200 mg PO BID tab 12/19/18 Losartan Potassium 50 mg PO DAILY 12/28/18 Ranitidine [Zantac] 150 mg PO BID 12/28/18 Primary Care Physician: Jennifer Spicer DO [Primary Care Provider] - Please follow up with your Primary Care Physician in: 3 weeks Please Follow Up With: Jennifer Spicer DO Disposition: Home Minutes spent on discharge:: 30 Patient Condition:: Stable Medical Necessity - Tobacco Use Smoking Status: Former smoker Tobacco Use: Cigarettes Meaningful Use Info Meaningful Use Diagnoses (Choose all that apply): None applicable Code Visit OBSV E&M: 32717 Observation care discharge
== END 2018-12-29 10:07 | disposition home or self-care (01) ==
LOC: ED 18:02 → PCU 19:34
PROVIDERS: Admitting Provider Family Medicine; Emergency Provider Emergency Medicine; Family Provider Family Medicine; PCP Family Medicine; Visit Provider Internal Medicine
DX: I25.119 Atherosclerotic heart disease of native coronary artery with unspecified angina pectoris (principal); I48.0 Paroxysmal atrial fibrillation; I13.0 Hypertensive heart and chronic kidney disease with heart failure and stage 1 through stage 4 chronic kidney disease, or unspecified chronic kidney disease; E11.22 Type 2 diabetes mellitus with diabetic chronic kidney disease; E78.5 Hyperlipidemia, unspecified; I25.2 Old myocardial infarction; D63.1 Anemia in chronic kidney disease; I50.42 Chronic combined systolic (congestive) and diastolic (congestive) heart failure; E66.9 Obesity, unspecified; K21.9 Gastro-esophageal reflux disease without esophagitis; N18.4 Chronic kidney disease, stage 4 (severe); I27.21 Secondary pulmonary arterial hypertension; Z79.899 Other long term (current) drug therapy; Z79.82 Long term (current) use of aspirin; Z79.01 Long term (current) use of 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s; Z79.4 Long term (current) use of insulin; Z79.02 Long term (current) use of antithrombotics/antiplatelets; Z87.891 Personal history of nicotine dependence; Z95.5 Presence of coronary angioplasty implant and graft; Z68.30 Body mass index [BMI] 30.0-30.9, adult; Z71.3 Dietary counseling and surveillance; Z95.810 Presence of automatic (implantable) cardiac defibrillator
CPT/HCPCS: 36415; 71046; 80048; 80076; 82962; 83690; 84484; 85025; 93005; 96361; 96374; 99218; 99285; J7030; A4216; G0378; J2405

== ENCOUNTER 2019-02-20 22:31 | Emergency (ER) | payer MEDICARE, SELFPAY ==
[2016-06-12 14:02] VITALS: BMI 29.7
[2019-01-16 14:49] VITALS: BMI 30.5
[2019-02-20 22:33] VITALS: BP 176/96; PULSE 86; RESP 19; TEMP 36.6; O2SAT 97; BMI 30.4
[2019-02-20 22:46] VITALS: TEMP 36.2
--- NOTE | 2019-02-20 22:51 | EKG12_ITS ---
Test Reason : CHEST OTHER Blood Pressure : / mmHG Vent. Rate : 083 BPM Atrial Rate : 083 BPM P-R Int : 000 ms QRS Dur : 100 ms QT Int : 374 ms P-R-T Axes : 000 -46 -12 degrees QTc Int : 439 ms Atrial fibrillation Left axis deviation Inferior infarct (cited on or before 07-JAN-2018) Anterolateral infarct (cited on or before 07-JAN-2018) Abnormal ECG Confirmed by MEL METZ, REINA ([id number]), legal editor MELLISSA HOPKINS ([id number]) on 02/22/2019 2:05:35 PM Referred By: ARA Confirmed By:REINA LEAL MD
--- NOTE | 2019-02-20 22:52 | ED.DCSUM_ITS ---
- ER Visit Summary Date of Service: 02/20/19 Chief Complaint: Tubular device malfunctioning History of Present Illness: The patient is a 68 M who is brought to the emergency department by EMS after recall that when they noticed that he bit her machine morning light was flashing. Attempted to troubleshoot it however tech- support is not available at this hour. Patient has extensive cardiac history and is well documented by Dr. Butler on January 16, 2019 visit. Most recently he has been working with his gallbladder removed. Reportedly had a HIDA scan that showed max 3% ejection fraction. He also notes that he has been having some nausea and dry heaves intermittently with food. Notes some left knee swelling that occurred after he had his left knee on a door frame. He has been taking his Eliquis. He denies any chest pain. All the ambulance tonight because he was worried something might be wrong. Physical Examination: Afebrile vital signs stable Gen: Well-nourished well-developed Head: Normocephalic atraumatic Eyes: Perrl EOMI ENT: TMs clear no rhinorrhea moist mucous membranes Neck: Supple no lymphadenopathy no JVD nontender CVS: Regular rate rhythm no murmurs normal S1-S2 Respiratory: No distress clear to auscultation bilaterally chest nontender Abdomen: Soft nontender nondistended normal bowel sounds no masses Back: Nontender Extremity: Nontender no edema mild swelling of the left knee no effusion no erythema ligaments are stable tensor mechanism is intact Skin: Normal color no rash Neuro: alert orientated ?3 CN II-XII intact normal strength sensation reflexes gait cerebellar Psych: Normal affect normal mood Test Results: EKG shows atrial fibrillation at a rate of 83. White count 1.7 hemoglobin 13.7. Magnesium 1.7 potassium 3.3. Creatinine 2.05. Troponin 0 0.018. Chest x-ray showed no overt failure. Emergency Department Course and Treatment: I think the patient has a knee contusion does not require x-rays. I will write for some Zofran for his nausea. He is to call his device his IT support in the morning when they are available. Return if worsening or concerns Impression: 1. Left knee contusion 3. Biliary colic This note was generated with [employer] dictation software. It may contain incorrect words, spelling, and punctuation that were not noted in review of the chart prior to signing ED Disposition - Plan for ED Patient: Disposition: Home or Assisted Living Instructions: CONTUSION, Lower Extremity Prescriptions: Ondansetron [Zofran Odt] 4 mg PO Q8H PRN PRN #20 tab PRN Reason: Nausea Prescription Printed Referrals: Jennifer Spicer DO [Primary Care Provider] - Keep Jaz appointment
--- NOTE | 2019-02-20 23:05 | RAD_ITS ---
STUDY: X-RAY CHEST REASON FOR EXAM: Male, 68 years old. CHF TECHNIQUE: Frontal and lateral views COMPARISON: December 28, 2018 FINDINGS: Stable left-sided pacemaker. The lungs are clear and expanded. There is no demonstrated pleural abnormality. Normal size heart. Normal mediastinum and loco. Normal visualized pulmonary arteries. Normal visualized aortic arch and descending thoracic aorta. Normal visualized thoracic spine. Normal visualized ribs, clavicles, and shoulders. There is no demonstrated abnormality of the visualized soft tissue structures of the upper abdomen. RAD/Chest PA and Lateral IMPRESSION: Normal x-ray examination of the chest. Electronically Signed: Santos Al DO at 23:38 EST Tel [phone], Service support ,
[2019-02-20 23:18] LABS: Basophil# 0.05 X10^3/uL; Basophil% 0.6 % (0-1); Eosinophil# 0.08 X10^3/uL; Hematocrit 43.7 % (40-54); Hemoglobin 13.7 g/dL (13.0-16.5); Lymphocyte % 7.8 % (19-41); Mean Corp Hgb Conc 31.4 g/dL (32-36); Mean Corpuscular Volume 89.4 fL (80-94); Mean Platelet Vol. 9.4 fl (6.2-12.0); Monocyte# 0.86 X10^3/uL; Monocyte% 11.2 % (0-10); NRBC Flagged by Analyzer 0 % (0-5); Neutrophil # 5.99 X10^3/uL (2.7-7.7); Neutrophil % 77.7 % (47-70); POSITIVE DIFFERENTIAL YES; Platelet Count 231 K/mm3 (150-450); RBC Distribution Width CV 15.9 % (11.6-14.6); RBC Distribution Width SD 51.9 fl (35.1-43.9); Red Blood Count 4.89 M/mm3 (4.6-6.2); White Blood Count 7.7 K/mm3 (4.4-11.0)
[2019-02-20 23:23] LABS: Differential Indicated SCAN CRITERIA MET
[2019-02-20 23:29] LABS: Anion Gap 5 (5-15); BUN 24 mg/dL (7-18); BUN/Creat Ratio 11.7 RATIO (10-20); Calcium,Total 8.5 mg/dL (8.5-10.1); Chloride 104 mmol/L (98-107); Creatinine, Serum 2.05 mg/dL (0.70-1.30); EST Glomerular Filtration Rate 35 mL/min (>60); Est Glom Filt Rate - Afr Amer 42 mL/min (>60); Estimated Creatinine Clearance 35.45 ml/min; Glucose 199 mg/dL (74-106); Magnesium 1.7 mg/dL (1.6-2.6); Potassium 3.3 mmol/L (3.5-5.1); Sodium Level 139 mmol/L (136-145)
[2019-02-20 23:48] LABS: Anisocytosis RARE; Ovalocyte RARE; Platelet Estimate ADEQUATE (ADEQ); Red Cell Morphology N CHROM NORMAL (NORM C&C)
[2019-02-20 23:54] VITALS: BP 129/90; PULSE 84; RESP 20; O2SAT 98
--- NOTE | 2019-02-20 23:55 | ED.RN ---
THIS NURSE REVIEWED D/C INSTRUCTIONS WITH PT. PT VERBALIZED UNDERSTANDING OF INSTRUCTIONS. IV D/C. IV CATHETER INTACT. PT TOLERATED WELL. PT DENIES FURTHER NEEDS OR QUESTIONS AT THIS TIME. PT ASSISTED TO VEHICLE VIA W/C AND STAFF ASSIST
== END 2019-02-20 23:55 | disposition home or self-care (01) ==
PROVIDERS: Emergency Provider Emergency Medicine; Family Provider Family Medicine; PCP Family Medicine
DX: S80.02XA Contusion of left knee, initial encounter (principal); W22.8XXA Striking against or struck by other objects, initial encounter; Y93.9 Activity, unspecified; K80.50 Calculus of bile duct without cholangitis or cholecystitis without obstruction; I48.91 Unspecified atrial fibrillation; I10 Essential (primary) hypertension; E11.9 Type 2 diabetes mellitus without complications; Z79.01 Long term (current) use of 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s; Z79.4 Long term (current) use of insulin; Z79.82 Long term (current) use of aspirin; Z79.899 Other long term (current) drug therapy
CPT/HCPCS: 71046; 80048; 83735; 84484; 85025; 93005; 99285; A4216

== ENCOUNTER 2019-03-06 17:00 | Emergency (ER) | payer MEDICARE, SELFPAY ==
[2016-06-12 14:02] VITALS: BMI 29.7
[2019-03-01 14:03] VITALS: BMI 30.2
[2019-03-06] VITALS (8 sets, daily range): BP systolic 149–164; BP diastolic 94–106; PULSE 85–104; RESP 15–24; TEMP 36.5–36.9; O2SAT 95–944; BMI 30.5
--- NOTE | 2019-03-06 18:01 | EKG12_ITS ---
Test Reason : SOB Blood Pressure : / mmHG Vent. Rate : 093 BPM Atrial Rate : 250 BPM P-R Int : 000 ms QRS Dur : 100 ms QT Int : 390 ms P-R-T Axes : 000 -38 045 degrees QTc Int : 484 ms Atrial flutter with variable A-V block Left axis deviation Inferior infarct , age undetermined Anterior infarct , age undetermined Abnormal ECG Confirmed by MEL METZ, REINA ([id number]), tape editor LISBET HAWK ([id number]) on 03/08/2019 12:58:51 PM Referred By: LUCIANO Confirmed By:REINA LEAL MD
[2019-03-06] MEDS: Albuterol 2.5 MG/3 ML VIAL.NEB. INHALATION (18:16)
--- NOTE | 2019-03-06 18:18 | ED.DCSUM_ITS ---
History of Present Illness Chief Complaint: Shortness of Breath Informant: Patient Onset: Today Activity at onset: Light Activity Timing: Intermittent Quality: Wheezing Current Severity: Mild Maximum Severity: Moderate Worsened by: Exertion Relieved by: Rest Associated Symptoms: Cough. Negative for: Bloody Sputum, Clear sputum, Fever, Sore throat, Sweats Narrative: Nonproductive cough and mild shortness of breath since overnight. As of the last 1 to 2 hours, patient is having dull, left-sided nonpleuritic chest discomfort that does not radiate. It is been constant since it started. He was resting when it started. He has a history of significant cardiac disease with congestive heart failure with AICD present, couple stents that were placed within the last 12 months, and chronic atrial fibrillation. Hence, he is on Plavix and Eliquis. He has had no bleeding from anywhere. Family states he has been in flash pulmonary edema before, and also concurs that he was much sicker than then he appears to be right now, however with his plethora of medical cond itions they were concerned today. His cough is been nonproductive. He denies any fevers. He is orthopneic since last night, it was mild, but that is not normal for him. No significant edema that he has noted or pain in his legs. No palpitations or syncope or near syncope. - Past Medical History (1) Anemia of chronic renal failure, stage 3 (moderate) Status: Chronic (2) Atherosclerosis of coronary artery of [place] heart without angina pectoris Status: Chronic Comment: SARA-RCA 06/15/2011, SARA-OM1 06/30/2011, SARA-LAD 08/20/2014, SARA-Prox- RCA 06/08/2016 (3) Cardiomyopathy, ischemic Status: Chronic (4) Chronic renal failure, stage 3 (moderate) Status: Chronic (5) Chronic systolic CHF (congestive heart failure) Status: Chronic (6) Essential hypertension Status: Chronic (7) History of coronary artery stent placement Status: Chronic Comment: SARA-RCA 06/15/2011, SARA-OM1 06/30/2011, SARA-LAD 08/20/2014, SARA-Prox- RCA 06/08/2016 (8) Hyperlipidemia Status: Chronic (9) Left atrial thrombus Status: Chronic (10) Nonsustained ventricular tachycardia Status: Chronic (11) Paroxysmal atrial fibrillation Status: Chronic (12) Presence of implantable cardioverter-defibrillator (ICD) Status: Chronic (13) Secondary pulmonary arterial hypertension Status: Chronic (14) Type II diabetes mellitus Status: Chronic Past Medical History - Allergies and Home Meds Allergies/Adverse Reactions: Allergies diltiazem Allergy (Verified 03/06/19 17:02) LOWER LEG SWELLING tamsulosin [From Flomax] Allergy (Verified 03/06/19 17:02) Shortness of breath atorvastatin calcium [From Lipitor] Adverse Reaction (Verified 03/06/19 17:02) MUSCLE WEAKNESS Primary Care Physician: Jennifer Spicer DO [Primary Care Provider] - Surgical History: - - s/p stents, AICD. Lives: With Family Smoking Status: Former smoker - Family History Maternal Family History: Family History (Last Reviewed 03/01/19 @ 13:52 by Yaritza Braden) Brother Sudden cardiac Family History: Reports: - Paternal Family History: Family History (Last Reviewed 03/01/19 @ 13:52 by Yaritza Braden) Brother Sudden cardiac Family History: Reports: - Sibling Family History: Family History (Last Reviewed 03/01/19 @ 13:52 by Yaritza Braden) Brother Sudden cardiac Family History: Reports: Heart Disease Review of Systems General: Denies: Chills, Fever, Sweats Eyes: Denies: Visual changes - bilaterally, Diplopia ENT: Denies: Bilateral ear pain, Rhinorrhea, Sore throat Cardiovascular: Reports: Chest pain. Denies: Palpitations, Heart racing Respiratory: Reports: Dyspnea, Cough. Denies: Sputum, Dyspnea on exertion Gastrointestinal: Reports: Abdominal pain - off and on chronically, no different today. Denies: Nausea, Vomiting, Diarrhea, Melena, Hematochezia Genitourinary: Denies: Dysuria, Hematuria, Frequency Musculoskeletal: Denies: Back pain, Swelling, Extremity Pain Skin: Denies: Rash, Wounds Neurological: Denies: Headache, Weakness, Numbness Physical Exam Vital Signs/Narrative: Vital Signs Temp Pulse Resp BP Pulse Ox 03/06/19 18:17 97 03/06/19 17:34 92 15 156/106 H 95 03/06/19 17:02 97.7 F L 100 18 156/105 H 98 Inital Vital Signs reviewed: Yes General: Well nourished, Well developed, No Acute Distress - well-appearing, smiling, conversive Head: Normocephalic, Atraumatic Eyes: Perrl, EOMI ENT: Moist mucous membranes, No rhinorrhea Neck: Supple, Nontender, No lymphadenopathy, No JVD Cardiovascular: No murmurs, Irregular, Tachycardia - mild Respiratory: No distress, CTA bilaterally, Chest nontender Abdomen: Soft, Nontender, Nondistended, Normal bowel sounds Back: Nontender, Normal Inspection. Negative for: CVA tenderness Extremities: Nontender, Edema - trace BLE, symmetric, no signs of cellulitis Skin: Normal color, No rash, No Trauma Neurological: Alert, Oriented x3, Cranial nerves II-XII grossly intact, Normal Strength, Normal Sensation Psychological: Normal affect, Normal Mood Diagnostic/Tx/Re-eval Impressions Chest X-Ray 03/06/19 18:30 IMPRESSION: No acute disease Electronically Signed: Gino Guy MD at 18:45 EST , Service support , 03/06/19 18:30 Chest PA and Lateral [RAD] Stat Laboratory Results 03/06/19 03/06/19 03/06/19 18:10 18:10 18:53 WBC Cancelled 6.6 Corrected WBC Cancelled RBC Cancelled 4.58 L Hgb Cancelled 13.0 Hct Cancelled 40.6 MCV Cancelled 88.6 MCH Cancelled 28.4 MCHC Cancelled 32.0 RDW Std Deviation Cancelled 51.6 H RDW Coeff of [place] Cancelled 16.1 H Plt Count Cancelled 241 MPV Cancelled 9.9 Immature Gran % (Auto) Cancelled 1.700 H Neut % (Auto) Cancelled 73.2 H Lymph % (Auto) Cancelled 10.1 L [place] % (Auto) Cancelled 12.5 H Eos % (Auto) Cancelled 1.7 Baso % (Auto) Cancelled 0.8 Immature Gran # (Auto) Cancelled Neut # (Auto) Cancelled Absolute Neuts (auto) Cancelled 4.9 Absolute Lymphs (auto) Cancelled 0.67 L Absolute Monos (auto) Cancelled Total Counted Cancelled Neutrophils % (Manual) Cancelled Band Neutrophils % Cancelled Lymphocytes % (Manual) Cancelled Monocytes % (Manual) Cancelled Eosinophils % (Manual) Cancelled Basophils % (Manual) Cancelled Metamyelocytes % Cancelled Myelocytes % Cancelled Promyelocytes % Cancelled Blast Cells % Cancelled Plasma Cell % (Manual) Cancelled Other Cells % Cancelled Nucleated RBC % Cancelled 0 Lymphocytes # Cancelled Basophils # Cancelled Nucleated RBCs/100 WBC Cancelled Differential Comment Cancelled Diff Path Review Cancelled Hypersegmented Neuts Cancelled Atypical Lymphocytes Cancelled Reactive Lymphocytes Cancelled Smudge Cells Cancelled Eosinophilia # Cancelled Toxic Granulation Cancelled Toxic Vacuolation Cancelled Dohle Bodies Cancelled Adalid Rods Cancelled Platelet Estimate Cancelled Plt Morphology Comment Cancelled RBC Morphology Cancelled Polychromasia Cancelled Hypochromasia Cancelled Poikilocytosis Cancelled Basophilic Stippling Cancelled Anisocytosis Cancelled Microcytosis Cancelled Macrocytosis Cancelled Spherocytes Cancelled Sickle Cells Cancelled Target Cells Cancelled Tear Drop Cells Cancelled Ovalocytes Cancelled Stomatocytes Cancelled [place] Bodies Cancelled [place] Cells Cancelled Bite Cells Cancelled Crenated Cell Cancelled Acanthocytes (Spur) Cancelled Rouleaux Cancelled Schistocytes Cancelled Sodium Cancelled Potassium Cancelled Chloride Cancelled Carbon Dioxide Cancelled Anion Gap Cancelled BUN Cancelled Creatinine Cancelled Estim Creat Clear Calc Cancelled Est GFR (MDRD) Af Amer Cancelled Est GFR (MDRD) Non-Af Cancelled BUN/Creatinine Ratio Cancelled Glucose Cancelled Calcium Cancelled Troponin I Cancelled 03/06/19 18:53 WBC Corrected WBC RBC Hgb Hct MCV MCH MCHC RDW Std Deviation RDW Coeff of [place] Plt Count MPV Immature Gran % (Auto) Neut % (Auto) Lymph % (Auto) [place] % (Auto) Eos % (Auto) Baso % (Auto) Immature Gran # (Auto) Neut # (Auto) Absolute Neuts (auto) Absolute Lymphs (auto) Absolute Monos (auto) Total Counted Neutrophils % (Manual) Band Neutrophils % Lymphocytes % (Manual) Monocytes % (Manual) Eosinophils % (Manual) Basophils % (Manual) Metamyelocytes % Myelocytes % Promyelocytes % Blast Cells % Plasma Cell % (Manual) Other Cells % Nucleated RBC % Lymphocytes # Basophils # Nucleated RBCs/100 WBC Differential Comment Diff Path Review Hypersegmented Neuts Atypical Lymphocytes Reactive Lymphocytes Smudge Cells Eosinophilia # Toxic Granulation Toxic Vacuolation Dohle Bodies Adalid Rods Platelet Estimate Plt Morphology Comment RBC Morphology Polychromasia Hypochromasia Poikilocytosis Basophilic Stippling Anisocytosis Microcytosis Macrocytosis Spherocytes Sickle Cells Target Cells Tear Drop Cells Ovalocytes Stomatocytes [place] Bodies [place] Cells Bite Cells Crenated Cell Acanthocytes (Spur) Rouleaux Schistocytes Sodium 138 Potassium 3.8 Chloride 104 Carbon Dioxide 27.0 Anion Gap 7 BUN 20 H Creatinine 1.79 H Estim Creat Clear Calc 40.59 Est GFR (MDRD) Af Amer 49 L Est GFR (MDRD) Non-Af 41 L BUN/Creatinine Ratio 11.2 Glucose 244 H Calcium 8.5 Troponin I < 0.015 - Rhythm Strip Rhythm Strip: A-fib Rate: 100 - EKG Initial EKG Interpretation: No Acute Injury Pattern, Atrial Fibrillation, - - old anterior and inferior infarcts Prior: Unchanged Treatment - Dyspnea: Albuterol, NTG Topical Repeat Evaluation: Improved With Ambulation: Asymptomatic - Medical Decision Making Work-up is negative including chest x-ray and his lungs are clear with normal vital signs except for mild tachycardia with his A. fib, which was in and out of tachycardia. Patient states Toradol seemed to help his chest discomfort and albuterol seemed to help his shortness of breath which was only mild when he got here. Family stated he was wheezing at home which was their concern. He does not have COPD, and although he does have significant congestive heart failure, his renal function is actually better than usual today, he has no significant edema, his lungs are clear, and his chest x-ray shows no sign of any venous congestion or pulmonary edema. Given all this, my suspicion is that he has a wheezy bronchitis or other viral upper respiratory infection. I feel he can be safely discharged home at this time, his chest discomfort was atypical and he has an unremarkable EKG and enzymes with regards to ischemia. I recommend PRN albuterol at home, a repeat evaluation with his doctor, and returning if worse. I do not think antibiotics are indicated at this time, he has no COPD and is not necessarily at a higher risk of pneumonia or bacterial superinfection than the general public. They understand all this and are agreeable with that plan. ED Disposition - Plan for ED Patient: Disposition: Home or Assisted Living Diagnosis: Acute wheezy bronchitis Instructions: BRONCHITIS with Wheezing (Adult) Prescriptions: Guaifenesin/Codeine [Andreitussin AC] 5 ml PO Q6H PRN PRN #4 oz PRN Reason: Cough Transmission Status: Sent to [facility] Albuterol Inhaler [Ventolin Hfa] 1 - 2 puff INHALATION Q4H PRN PRN #1 inhaler PRN Reason: Wheezing Transmission Status: Pending to [facility] Referrals: Jennifer Spicer DO [Primary Care Provider] - 3-5 Days if not improving
[2019-03-06] MEDS: Nitroglycerin Oint 1 INCH PACKET TRANSDERM. (18:23)
--- NOTE | 2019-03-06 18:30 | RAD_ITS ---
STUDY: X-RAY CHEST REASON FOR EXAM: Male, 68 years old. Wheezing and shortness of breath TECHNIQUE: Frontal and lateral views of the chest. COMPARISON: February 20, 2019 FINDINGS: Unipolar pacer on the left unchanged. The lungs are clear and expanded. There is no demonstrated pleural abnormality. Normal size heart. Normal mediastinum and loco. Normal visualized pulmonary arteries. Normal visualized aortic arch and descending thoracic aorta. Normal visualized thoracic spine. Normal visualized ribs, clavicles, and shoulders. There is no demonstrated abnormality of the visualized soft tissue structures of the upper abdomen. RAD/Chest PA and Lateral IMPRESSION: No acute disease Electronically Signed: Gino Guy MD at 18:45 EST , Service support ,
[2019-03-06 20:03] LABS: Anion Gap 7 (5-15); BUN 20 mg/dL (7-18); BUN/Creat Ratio 11.2 RATIO (10-20); Calcium,Total 8.5 mg/dL (8.5-10.1); Chloride 104 mmol/L (98-107); Creatinine, Serum 1.79 mg/dL (0.70-1.30); EST Glomerular Filtration Rate 41 mL/min (>60); Est Glom Filt Rate - Afr Amer 49 mL/min (>60); Estimated Creatinine Clearance 40.59 ml/min; Glucose 244 mg/dL (74-106); Potassium 3.8 mmol/L (3.5-5.1); Sodium Level 138 mmol/L (136-145)
[2019-03-06 20:06] LABS: Absolute Lymphocyte Count 0.67 X10^3/uL (0.83-4.51); Absolute Neutrophil Count 4.9 X10^3/uL (2.0-7.7); Basophil# 0.05 X10^3/uL; Basophil% 0.8 % (0-1); Eosinophil# 0.11 X10^3/uL; Eosinophils% 1.7 % (0-5); Hematocrit 40.6 % (40-54); Lymphocyte # 0.67 X10^3/ul (4.0); Lymphocyte % 10.1 % (19-41); Mean Corpuscular Hgb 28.4 pg (27.0-32.0); Mean Corpuscular Volume 88.6 fL (80-94); Mean Platelet Vol. 9.9 fl (6.2-12.0); Monocyte# 0.83 X10^3/uL; Monocyte% 12.5 % (0-10); NRBC Flagged by Analyzer 0 % (0-5); Neutrophil # 4.87 X10^3/uL (2.7-7.7); Neutrophil % 73.2 % (47-70); Platelet Count 241 K/mm3 (150-450); RBC Distribution Width CV 16.1 % (11.6-14.6); RBC Distribution Width SD 51.6 fl (35.1-43.9); Red Blood Count 4.58 M/mm3 (4.6-6.2); White Blood Count 6.6 K/mm3 (4.4-11.0)
--- NOTE | 2019-03-06 21:01 | ED.RN ---
REVIEWED D/C INSTRUCTIONS, FOLLOW UP CARE, PRESCRIPTIONS, AND S/S THAT WOULD WARRANT A RETURN TO THE ED WITH PT. PT VERBALIZED AN UNDERSTANDING AND DENIES FURTHER QUESTIONS FOR THIS RN. PT SKIN P/W/D, RESP EVEN AND UNLABORED, PT A&O X 3, NO DISTRESS NOTED. PT AMBULATED OUT OF ED, GAIT STEADY.
== END 2019-03-06 20:45 | disposition home or self-care (01) ==
PROVIDERS: Emergency Provider Emergency Medicine; Family Provider Family Medicine; PCP Family Medicine
DX: J20.9 Acute bronchitis, unspecified (principal); I13.0 Hypertensive heart and chronic kidney disease with heart failure and stage 1 through stage 4 chronic kidney disease, or unspecified chronic kidney disease; E11.22 Type 2 diabetes mellitus with diabetic chronic kidney disease; N18.3 Chronic kidney disease, stage 3 (moderate); D63.1 Anemia in chronic kidney disease; I48.0 Paroxysmal atrial fibrillation; I50.22 Chronic systolic (congestive) heart failure; I27.21 Secondary pulmonary arterial hypertension; I25.5 Ischemic cardiomyopathy; I25.10 Atherosclerotic heart disease of native coronary artery without angina pectoris; E78.5 Hyperlipidemia, unspecified; Z95.5 Presence of coronary angioplasty implant and graft; Z95.810 Presence of automatic (implantable) cardiac defibrillator; Z79.02 Long term (current) use of antithrombotics/antiplatelets; Z79.4 Long term (current) use of insulin; Z79.899 Other long term (current) drug therapy; Z87.891 Personal history of nicotine dependence
CPT/HCPCS: 71046; 80048; 84484; 85025; 93005; 94640; 99284; A4216

== ENCOUNTER 2019-03-13 11:14 | Inpatient (IN) | payer MEDICARE, SELFPAY ==
[2016-06-12 14:02] VITALS: BMI 29.7
[2019-03-01 14:03] VITALS: BMI 30.2
--- NOTE | 2019-03-06 11:23 | HP_ITS ---
Intake Vital Signs 03/01/19 Height 5 ft 9 in 03/01/19 Weight: 205 lb 03/01/19 Body Mass Index (BMI) 30.2 03/01/19 Blood Pressure 166/107 H 03/01/19 Blood Pressure Location Rt brachial 03/01/19 Blood Pressure Position Sitting 03/01/19 Respiratory Rate 16 03/01/19 Body Mass Index (BMI) 30.4 Intake Visit Reasons: Gall Stones [facility] Chief Complaint: Chest Pain Net Coordinator Required: No Is patient in pain?: No Allergies diltiazem Allergy (Verified 03/01/19 14:03) LOWER LEG SWELLING atorvastatin calcium [From Lipitor] Adverse Reaction (Verified 03/01/19 14:03) MUSCLE WEAKNESS Medications Aspirin [Aspirin, Baby] 81 mg PO DAILY@0800 12/28/14 [History Confirmed 03/01/19] apixaban 2.5 mg tablet 2.5 mg PO BID 01/25/18 [History Confirmed 03/01/19] pantoprazole 40 mg tablet,delayed release 40 mg PO BID #60 tab 04/29/18 [Rx Confirmed 03/01/19] loratadine 10 mg tablet 10 mg PO DAILY 05/12/18 [History Confirmed 03/01/19] Insulin NPH/Reg 70/30 [Novolin 70/30] 32 units SUBCUT DAILY 05/17/18 [History Confirmed 03/01/19] Insulin NPH/Reg 70/30 [Novolin 70/30] 38 units SQ QHS 05/17/18 [History Confirmed 03/01/19] acetaminophen 325 mg capsule 650 mg PO Q6H PRN cap 01/16/19 [History Confirmed 03/01/19] albuterol sulfate HFA 90 mcg/actuation aerosol inhaler 2 puff INHALATION Q4H PRN g 01/16/19 [History Confirmed 03/01/19] amlodipine 5 mg tablet 5 mg PO DAILY 01/16/19 [History Confirmed 03/01/19] furosemide 40 mg tablet 40 mg PO BID tab 01/16/19 [History Confirmed 03/01/19] isosorbide mononitrate ER 120 mg tablet,extended release 24 hr 120 mg PO DAILY tab 01/16/19 [History Confirmed 03/01/19] tamsulosin 0.4 mg capsule 0.4 mg PO DAILY 01/16/19 [History Confirmed 03/01/19] pravastatin 40 mg tablet 40 mg PO QHS #90 tab 01/25/19 [Rx Confirmed 03/01/19] clopidogrel 75 mg tablet 75 mg PO DAILY #90 tab 01/26/19 [Rx Confirmed 03/01/19] hydralazine 100 mg tablet 100 mg PO TID #270 tab 01/26/19 [Rx Confirmed 03/01/19] ranolazine ER 500 mg tablet,extended release,12 hr 500 mg PO BID #180 tab 01/26/19 [Rx Confirmed 03/01/19] carvedilol 25 mg tablet 12.5 mg PO BID #90 tab 01/30/19 [Rx Confirmed 03/01/19] Ondansetron [Zofran Odt] 4 mg PO Q8H PRN PRN #20 tab 02/20/19 [Rx Confirmed 03/01/19] sucralfate 1 gram tablet 1 g PO QACHS #60 tab 03/01/19 [Rx Confirmed 03/01/19] amiodarone 200 mg tablet 200 mg PO DAILY #90 tab 03/03/19 [Rx] PFSH Medical History Essential hypertension (Chronic) 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) Nonsustained ventricular tachycardia (Chronic) Chronic systolic CHF (congestive heart failure) (Chronic) 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) Atherosclerosis of coronary artery of [place] heart without angina pectoris (Chronic) Paroxysmal atrial fibrillation (Chronic) Hyperlipidemia (Chronic) Type II diabetes mellitus (Chronic) Hyperkalemia (Chronic) Chronic renal failure, stage 3 (moderate) (Chronic) STEMI (ST elevation myocardial infarction) (Chronic) Anemia of chronic renal failure, stage 3 (moderate) (Chronic) Cardiomyopathy, ischemic (Chronic) DDD (degenerative disc disease) (Chronic) Obesity (BMI 30.0-34.9) (Chronic) Old myocardial infarction (Chronic) Cardiogenic shock (Resolved 06/08/16) Esophagitis determined by endoscopy (Resolved 05/06/17) Hypertensive emergency (Resolved) Systolic CHF, acute on chronic (Resolved) Surgical History Presence of implantable cardioverter-defibrillator (ICD) (Chronic) History of coronary artery stent placement (Chronic 06/08/16) History of cardioversion (Chronic 04/10/16) H/O elbow surgery (Resolved) H/O left wrist surgery (Resolved) S/P right inguinal hernia repair (Resolved) Status post knee surgery (Resolved) Family History Brother Sudden cardiac Social History (Updated 03/06/19 @ 11:23 by Zakia Osorio MD) Smoking Status: Former smoker quit date: 01/03/15 pack-years: 90 how long ago did patient quit smokin years ago alcohol intake: current alcohol intake frequency: a few times a month substance use type: does not use caffeine: Yes Type: coffee Number of servings: 1 HPI HPI HPI: RYAN CUMMINS, is a 68 M who presents to the office today for HPI HPI Surgical H&P: Yes HPI: RYAN CUMMINS, is a 68 M who presents to the office today for biliary dyskinesia, nausea. Patient's HIDA scan was done September 2018 with ejection fraction of 24%. Patient states for about the last 2 months the nausea and been unable to eat has gotten worse. He states some days he is able to eat other days he is not he will have nausea in the a.m. a.m. before ever eating denies any vomiting but will have dry heaves. Occasion the nausea can wake him up at night. Patient states that he is mostly been eating chicken noodle and will occasionally have some solid food like chicken or pork he has been able to tolerate ranch style dressing and today he just had a Davis sausage egg McMuffin without any increased pain. Patient states his right upper pain can sometimes be an 8/10 currently rates it a 5/10. Patient is currently on Protonix 40 mg p.o. twice daily and will still have reflux symptoms about once or twice a week he is also on ranitidine. Patient's last EGD was 05/11/2017 which did show Tadeo's esophagus, distal esophagitis. Patient is also on Eliquis, Plavix, aspirin due to A. fib and cardiac stents. Patient's last stent was in 2017. Patient has never had a colonoscopy and is not currently interested in having one. Patient denies any family history of colon cancer. ROS General General: Yes weight change; no fatigue Gastro Gastrointestinal: No abdominal pain, Yes nausea or vomiting (Nausea denies vomiting), No diarrhea, No constipation, No blood in stool, No acid reflux, No hemorrhoids, No ulcers, No gallbladder problem, No black,tarry stools Exam Const General: cooperative, comfortable, no acute distress Resp Effort & Inspection: normal respiratory effort GI Inspection: non-distended Palpation: soft, no guarding, tender (Mostly epigastric, mild left upper quadrant and right upper quadrant, no peritoneal signs) Assessment & Plan Problems 1. 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 Epigastric pain R10.13 3. Biliary dyskinesia K82.8 Plan Discussed with patient that his pain does seem to be more like gastric in etiology as he does have nausea before ever eating as well as at night and he is able to eat the fatty or greasy foods without any increase in discomfort or nausea. Patient also last had an EGD in 2018 however he did have pretty significant distal esophagitis and biopsies were significant with Tadeo's. Patient has been on Protonix 40 mg p.o. twice daily as well as ranitidine daily but he still had symptoms maybe once or twice a week per the patient. We will add Carafate 1 g p.o. 4 times daily to see if this helps with his symptoms. I have discussed the above with the patient. Patient has never had a colonoscopy however he is not interested in having one currently. I have offered the patient EGD for evaluation. Patient will need to be off Eliquis x3 days okay to stay on aspirin Plavix. I have explained the risks/benefits of the procedure and described the procedure. I have discussed the risks with the patient, including but not limited to: infection, bleeding, perforation of the GI tract requiring emergency surgery, inability to complete the procedure, injury to any internal organs, complications of anesthesia, etc. - the patient understands and agrees to proceed. I have answered all the patient's questions to the patient's satisfaction and the patient has no further questions. Discussed with patient that can schedule cholecystectomy once we have completed the EGD, patient would need to be off his Plavix as well as Eliquis for this procedure. Zakia sOorio M.D. Pager: [phone] [facility] [address] [place] [address], [facility], [address] [place] [address] Office: 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 Patient was only able to take the Carafate x3 days as he did have some wheezing which he found could be a side effect. Patient still on Protonix p.o. twice daily patient did held his Eliquis since Wednesday, still on his aspirin/Plavix. On exam patient has left upper quadrant as well as epigastric pain no right upper quadrant pain.
[2019-03-06 17:02] VITALS: BMI 30.5
[2019-03-13] VITALS (11 sets, daily range): BP systolic 136–156; BP diastolic 72–104; PULSE 89–122; RESP 16–18; TEMP 36.3–36.8; O2SAT 92–99; BMI 31.2; BMI 30.4
--- NOTE | 2019-03-13 11:18 | RAD_ITS ---
STUDY: X-RAY CHEST REASON FOR EXAM: Male, 68 years old. Chest pain and confusion. TECHNIQUE: Single AP portable view of the chest. COMPARISON: Comparison is made with prior study dated March 06, 2019. FINDINGS: EKG electrodes are seen. The lungs are clear and expanded. There is no demonstrated pleural abnormality. There is mild cardiac enlargement. A left-sided unipolar pacemaker is seen. Normal mediastinum and loco. Normal visualized pulmonary arteries. Normal visualized aortic arch and descending thoracic aorta. Normal visualized thoracic spine. Normal visualized ribs, clavicles, and shoulders. There is no demonstrated abnormality of the visualized soft tissue structures of the upper abdomen. RAD/Chest 1 View (Portable) IMPRESSION: Mild cardiomegaly. No acute abnormality is seen. Electronically Signed: Domingo Noyola, at 12:25 EST , Service support ,
--- NOTE | 2019-03-13 11:18 | EKG12_ITS ---
Test Reason : Blood Pressure : / mmHG Vent. Rate : 108 BPM Atrial Rate : 119 BPM P-R Int : 000 ms QRS Dur : 106 ms QT Int : 408 ms P-R-T Axes : 000 -45 045 degrees QTc Int : 546 ms Atrial flutter with variable block Left axis deviation Inferior infarct , age undetermined Anterolateral infarct , age undetermined Prolonged QT Abnormal ECG Confirmed by BELKIS METZ, JUANJOSE ([id number]), book editor CANELO DIETRICH ([id number]) on 03/15/2019 11:44:20 AM Referred By: Vicky Navarro Confirmed By:JUANJOSE TAMAYO MD
[2019-03-13 11:30] LABS: Bedside Glucose 65 mg/dL (70-110)
[2019-03-13] MEDS: Dextrose 50%-Water 25 GM/50 ML DISP.SYRIN IV (11:33)
[2019-03-13 11:57] LABS: Absolute Lymphocyte Count 0.43 X10^3/uL (0.83-4.51); Absolute Neutrophil Count 8.6 X10^3/uL (2.0-7.7); Basophil# 0.06 X10^3/uL; Basophil% 0.6 % (0-1); Eosinophil# 0.07 X10^3/uL; Eosinophils% 0.7 % (0-5); Hematocrit 42.8 % (40-54); Hemoglobin 13.5 g/dL (13.0-16.5); Lymphocyte # 0.43 X10^3/ul (4.0); Lymphocyte % 4.2 % (19-41); Mean Corp Hgb Conc 31.5 g/dL (32-36); Mean Corpuscular Hgb 28.5 pg (27.0-32.0); Mean Corpuscular Volume 90.3 fL (80-94); Mean Platelet Vol. 8.7 fl (6.2-12.0); Monocyte# 0.87 X10^3/uL; Monocyte% 8.5 % (0-10); NRBC Flagged by Analyzer 0 % (0-5); Neutrophil # 8.61 X10^3/uL (2.7-7.7); Neutrophil % 84.4 % (47-70); POSITIVE DIFFERENTIAL YES; Platelet Count 243 K/mm3 (150-450); RBC Distribution Width CV 15.9 % (11.6-14.6); RBC Distribution Width SD 52.7 fl (35.1-43.9); Red Blood Count 4.74 M/mm3 (4.6-6.2); White Blood Count 10.2 K/mm3 (4.4-11.0)
[2019-03-13 12:16] LABS: Anion Gap 4 (5-15); BUN 20 mg/dL (7-18); BUN/Creat Ratio 11.3 RATIO (10-20); Calcium,Total 8.2 mg/dL (8.5-10.1); Chloride 103 mmol/L (98-107); Creatinine, Serum 1.77 mg/dL (0.70-1.30); EST Glomerular Filtration Rate 41 mL/min (>60); Est Glom Filt Rate - Afr Amer 50 mL/min (>60); Estimated Creatinine Clearance 41.05 ml/min; Glucose 108 mg/dL (74-106); Potassium 3.8 mmol/L (3.5-5.1); Sodium Level 138 mmol/L (136-145)
[2019-03-13 12:25] LABS: Differential Indicated SCAN CRITERIA MET
[2019-03-13] MEDS: Ondansetron 4 MG/2 ML Vial IV (12:32)
[2019-03-13 12:40] LABS: Bedside Glucose 105 mg/dL (70-110)
--- NOTE | 2019-03-13 13:41 | CT_ITS ---
STUDY: CT BRAIN WITHOUT CONTRAST REASON FOR EXAM: Male, 68 years old. Dizziness. Stage III chronic kidney disease. RADIATION DOSAGE (If Supplied By Facility): CTDIvol = ( 60.81 ) mGy, DLP = ( 1044.28 ) mGycm TECHNIQUE: Transaxial CT imaging of the brain was performed without administration of intravenous contrast material. Individualized dose optimization techniques were used for this CT. COMPARISON: Comparison is made with prior study dated August 16, 2018. FINDINGS: Normal soft tissue structures. Normal calvarium. There is mild cerebral atrophy with widening of the extra-axial spaces and ventricular dilatation. There are areas of decreased attenuation within the white matter tracts of the supratentorial brain, consistent with microvascular disease changes. Normal basal ganglia and thalami. Normal brainstem. There is mild cerebellar atrophy. There is no intracranial hemorrhage. There are no findings of an acute ischemic infarction. Atherosclerotic calcification of the vertebral arteries and cavernous portions of the internal carotid arteries bilaterally. Normal visualized paranasal sinuses. CT/Brain/Head without Contrast IMPRESSION: Chronic involutional changes of the brain. Electronically Signed: Domingo Noyola, at 14:38 EST , Service support ,
[2019-03-13 14:49] LABS: Bacteria 0 SEEN /hpf (None Seen); Mucous, Urine 0 SEEN /hpf (<or=2+); Red Blood Cells-Urine 0 SEEN /hpf (0-5)
[2019-03-13 14:53] LABS: Color, Urine Yellow (Yellow); Glucose, Dipstick 50 mg/dl (Normal); Ketone-Dipstick Negative (Negative); Leukocyte Esterase-Dipstick 25 /ul (Negative); Nitrite-Dipstick Negative (Negative); Occult Blood-Urine Negative /ul (Negative); Protein-Dipstick 100 mg/dl (Negative); Urine Bilirubin Dipstick Negative (Negative); Urine Clarity Clear (Clear); Urine Urobilinogen Normal (Normal)
[2019-03-13 15:01] LABS: Squamous Epithelial Cells - UA 0-5 SEEN /hpf (0-5); White Blood Cells 0-5 SEEN /hpf (0-5)
--- NOTE | 2019-03-13 15:26 | ED.DCSUM_ITS ---
History of Present Illness Chief Complaint: Confusion Informant: Patient, Family Onset: Days Current Severity: Mild Narrative: The patient presents per family with a blood sugar of 30 he has insulin- dependent diabetes mellitus, urinary retention heart disease gallbladder disease CHF He was doing well last night he indicates he ate he had a snack before bedtime he indicates prior to bedtime and he thinks his blood sugar was about 120 later he thought maybe was 300 he took his normal 32 units of insulin went to sleep and he woke sleepy tired with a blood sugar of 30 he was given some oral intake and his blood sugar improved he was brought to the hospital Per the daughter he has had high blood sugars at bedtime to where his providers have increased his nighttime dose of insulin recently to about 32 units, he was scheduled to undergo gallbladder surgery at [facility] but that procedure was canceled to better stabilize his heart condition has had no abdominal pain vomiting normal bowel bladder habits except the daughter reports he is slow to provide urine and at times he has urinary retention The patient has no complaints Past Medical History - Allergies and Home Meds Allergies/Adverse Reactions: Allergies diltiazem Allergy (Verified 03/13/19 11:15) LOWER LEG SWELLING tamsulosin [From Flomax] Allergy (Verified 03/13/19 11:15) Shortness of breath atorvastatin calcium [From Lipitor] Adverse Reaction (Verified 03/13/19 11:15) MUSCLE WEAKNESS Primary Care Physician: Jennifer Spicer DO [Primary Care Provider] - Past Medical History: - - Notable problems as above Surgical History: - - s/p stents, AICD. Smoking Status: Former smoker - Family History Maternal Family History: Family History (Last Reviewed 03/01/19 @ 13:52 by Yaritza Braden) Brother Sudden cardiac Family History: Reports: - Paternal Family History: Family History (Last Reviewed 03/01/19 @ 13:52 by Yaritza Braden) Brother Sudden cardiac Family History: Reports: - Sibling Family History: Family History (Last Reviewed 03/01/19 @ 13:52 by Yaritza Braden) Brother Sudden cardiac Family History: Reports: Heart Disease Review of Systems General: Denies: Chills, Fever, Sweats Eyes: Denies: Visual changes - bilaterally, Diplopia ENT: Denies: Rhinorrhea, Sore throat Cardiovascular: Denies: Chest pain, Palpitations Respiratory: Denies: Dyspnea, Cough, Dyspnea on exertion Gastrointestinal: Denies: Abdominal pain, Nausea, Vomiting, Diarrhea, Melena, Hematochezia Genitourinary: Denies: Dysuria, Hematuria, Frequency Musculoskeletal: Denies: Back pain, Extremity Pain Skin: Denies: Rash, Wounds Neurological: Reports: - - generalized weakness and dizziness. Denies: Headache, Weakness, Numbness Physical Exam Vital Signs/Narrative: Vital Signs Pulse Resp BP Pulse Ox 03/13/19 15:13 97 18 147/104 H 96 03/13/19 14:46 99 16 151/90 H 98 03/13/19 12:14 102 H 156/91 H 03/13/19 11:31 98 General: Well nourished, Well developed, No Acute Distress Head: Normocephalic, Atraumatic Eyes: Perrl, EOMI ENT: Moist mucous membranes, No rhinorrhea Neck: Supple, Nontender Cardiovascular: Regular rate, Regular rhythm, No murmurs Respiratory: No distress, CTA bilaterally, Chest nontender Abdomen: Soft, Nontender, Nondistended, Normal bowel sounds Back: Nontender, Normal Inspection Extremities: Nontender, No edema Skin: Normal color, No rash Neurological: Alert, Oriented x3, Cranial nerves II-XII grossly intact, Normal Strength, Normal Sensation Psychological: Normal affect, Normal Mood Diagnostic/Tx/Re-eval - Medical Decision Making Patient's current blood sugar is 65 we have supplemented with oral foods liquids one half amp D50, he complains of nonspecific whole body weakness there is nothing focal he is awake and alert his NIH is 0 he is moving all 4 extremities also intermittent headaches and dizziness Received IV fluids he refused to provide urinalysis his abdomen was soft there is no obvious signs of urinary retention recommended Avery catheter as he had urinary retention the past but he refused that CT head chest x-ray unremarkable labs generally unremarkable creatinine elevated, blood sugar after all the above is 105 the patient states he simply too weak tired and dizzy to be discharged home I spoke with the family spoke with the hospitalist given all the above will arrange for admission Admit stable Impression final hypo glycemia, insulin diabetes mellitus, urinary retention, generalized weakness and dizziness ED Disposition - Plan for ED Patient: Diagnosis: History of coronary artery stent placement, Hypoglycemia, weakness, IDDM Referrals: Jennifer Spicer DO [Primary Care Provider] -
[2019-03-13 16:40] LABS: Bedside Glucose 73 mg/dL (70-110)
--- NOTE | 2019-03-13 17:11 | HP.PCM_ITS ---
Problem List (1) Essential hypertension Status: Chronic (2) detention current use of 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 Status: Chronic (3) Nonsustained ventricular tachycardia Status: Chronic (4) Chronic systolic CHF (congestive heart failure) Status: Chronic (5) Presence of implantable cardioverter-defibrillator (ICD) Status: Chronic (6) Paroxysmal atrial fibrillation Status: Chronic (7) Hyperlipidemia Status: Chronic Qualifiers: Hyperlipidemia type: unspecified Qualified Code(s): E78.5 - Hyperlipidemia, unspecified (8) Type II diabetes mellitus Status: Chronic Qualifiers: Diabetes mellitus fci insulin use: with fci use Diabetes mellitus complication status: with unspecified complications (9) Anemia of chronic renal failure, stage 3 (moderate) Status: Chronic History of Present Illness Date of Admission: 03/13/19 Chief Complaint: Altered mental status, hypoglycemia - 1 day The patient is a 68 year old M with past medical history of CAD status post stent, paroxysmal atrial fibrillation, chronic systolic CHF with EF of 20%, hypertension, type II DM, hyperlipidemia who comes in through the ED with hypoglycemia. Patient has been in his usual state of health, he had his dinner before he slept. His blood sugar was in the 300s prior to sleeping. Patient comes in with reported blood sugar of 30. He woke up this morning and reportedly had a fall. His daughter found him in his room on the floor. Was trying to get him to sit in bed, patient was confused and was fighting with her. She checked his blood sugar and it was 30. She got him some orange juice but the patient was waxing and waning in between unresponsiveness. She called the EMS who inserted a peripheral line and gave him D50. Blood sugar here was 65. He received a couple of amps of D50. Blood sugar was 105. His vitals showed temperature 97.3 F, heart rate was 122, blood pressure 141/98, respiratory rate was 18, SPO2 was 92% on room air. Admitting blood work showed WBC count of 10.2, hemoglobin 13.5, platelet count 243, BMP was significant for BUN of 20, creatinine of 1.77 which appears to be his baseline. 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) Nonsustained ventricular tachycardia (Chronic) Chronic systolic CHF (congestive heart failure) (Chronic) Presence of implantable cardioverter-defibrillator (ICD) (Chronic) 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) History of coronary artery stent placement (Chronic 06/08/16) SARA-RCA 06/15/2011, SARA-OM1 06/30/2011, SARA-LAD 08/20/2014, SARA-Prox- RCA 06/08/2016 Atherosclerosis of coronary artery of [place] heart without angina pectoris (Chronic) SARA-RCA 06/15/2011, SARA-OM1 06/30/2011, SARA-LAD 08/20/2014, SARA-Prox- RCA 06/08/2016 Paroxysmal atrial fibrillation (Chronic) Hyperlipidemia (Chronic) Type II diabetes mellitus (Chronic) Hyperkalemia (Chronic) Chronic renal failure, stage 3 (moderate) (Chronic) STEMI (ST elevation myocardial infarction) (Chronic) Anemia of chronic renal failure, stage 3 (moderate) (Chronic) Cardiomyopathy, ischemic (Chronic) Medical History: Medical History (Last Reviewed 03/01/19 @ 13:52 by Yaritza Braden) Essential hypertension (Chronic) I10 watermelon inspector current use of 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) Z79.01 Nonsustained ventricular tachycardia (Chronic) I47.2 Chronic systolic CHF (congestive heart failure) (Chronic) I50.22 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) I27.21 Atherosclerosis of coronary artery of [place] heart without angina pectoris (Chronic) I25.10 SARA-RCA 06/15/2011, SARA-OM1 06/30/2011, SARA-LAD 08/20/2014, SARA-Prox- RCA 06/08/2016 Paroxysmal atrial fibrillation (Chronic) I48.0 Hyperlipidemia (Chronic) E78.5 Type II diabetes mellitus (Chronic) E11.9 Hyperkalemia (Chronic) E87.5 Chronic renal failure, stage 3 (moderate) (Chronic) N18.3 STEMI (ST elevation myocardial infarction) (Chronic) Anemia of chronic renal failure, stage 3 (moderate) (Chronic) N18.3, D63.1 Cardiomyopathy, ischemic (Chronic) I25.5 DDD (degenerative disc disease) Obesity (BMI 30.0-34.9) E66.9 Old myocardial infarction I25.2 inferior lateral and Anterior Apical Cardiogenic shock Onset Date: 06/08/16 R57.0 Esophagitis determined by endoscopy (Resolved) Onset Date: 05/06/17 K20.9 Hypertensive emergency I16.1 Systolic CHF, acute on chronic (Resolved) I50.23 Allergies diltiazem Allergy (Verified 03/13/19 11:15) LOWER LEG SWELLING tamsulosin [From Flomax] Allergy (Verified 03/13/19 16:39) Shortness of breath/muscle weakness atorvastatin calcium [From Lipitor] Adverse Reaction (Verified 03/13/19 11:15) MUSCLE WEAKNESS Home Medications: Ambulatory Orders Medication Instructions Recorded Albuterol Sulfate [Ventolin Hfa] 2 puff INHALATION Q4H PRN 03/13/19 Amiodarone HCl [Cordarone] 200 mg PO DAILY 03/13/19 Apixaban [Eliquis] 2.5 mg PO BID 03/13/19 Aspirin [Aspirin, Baby] 81 mg PO DAILY@0800 03/13/19 Carvedilol [Coreg] 25 mg PO BID 03/13/19 Clopidogrel Bisulfate [Plavix] 75 mg PO DAILY 03/13/19 Dicyclomine HCl 10 mg PO QHS 03/13/19 Dicyclomine HCl [Bentyl] 10 mg PO TIDAC 03/13/19 Fluticasone 0.05% [Flonase Nasal 2 spray NASAL DAILY PRN 03/13/19 [place]] Furosemide [Lasix] 80 mg PO DAILY 03/13/19 Insulin NPH/Reg 70/30 [Novolin 32 units SUBCUT QHS 03/13/19 70/30] Insulin NPH/Reg 70/30 [Novolin 35 units SUBCUT BREAKFAST 03/13/19 70/30] Isosorbide Mononitrate [Isosorbide 120 mg PO BID 03/13/19 Mononitrate ER] Loratadine 10 mg PO DAILY 03/13/19 Losartan Potassium [Cozaar] 100 mg PO DAILY 03/13/19 Pantoprazole Sodium [Protonix] 40 mg PO BID 03/13/19 Pravastatin Sodium 40 mg PO QHS 03/13/19 Ranitidine HCl [Zantac 75] 75 mg PO BID 03/13/19 Ranolazine [Ranolazine ER] 500 mg PO BID 03/13/19 hydrALAZINE [Apresoline] 100 mg PO TID 03/13/19 Surgical History: Surgical History (Last Reviewed 03/01/19 @ 13:52 by Yaritza Braden) Presence of implantable cardioverter-defibrillator (ICD) (Chronic) Z95.810 History of coronary artery stent placement (Chronic) Onset Date: 06/08/16 Z95.5 SARA-RCA 06/15/2011, SARA-OM1 06/30/2011, SARA-LAD 08/20/2014, SARA-Prox- RCA 06/08/2016 History of cardioversion Onset Date: 04/10/16 Z98.890 01/14/15 (unsuccessful), 04/10/2016 H/O elbow surgery Z98.890 H/O left wrist surgery Z98.890 S/P right inguinal hernia repair Z98.890, Z87.19 Status post knee surgery Z98.890 Surgical History: - - s/p stents, AICD. Psychiatric History: No pertinent psych hx Lives: With Family Smoking Status: Former smoker Tobacco Use: Cigarettes - *Family History Maternal Family History: Family History (Last Reviewed 03/01/19 @ 13:52 by Yaritza Braden) Brother Sudden cardiac History Items: Hypertension Paternal Family History: Family History (Last Reviewed 03/01/19 @ 13:52 by Yaritza Braden) Brother Sudden cardiac History Items: Unknown Sibling Family History: Family History (Last Reviewed 03/01/19 @ 13:52 by Yaritza Braden) Brother Sudden cardiac History Items: Heart Disease Review of Systems Constitutional: Reports: Fatigue. Denies: Anorexia, Chills, Fever, Night Sweats, Malaise, Weakness, Weight Change Eyes: Denies: Blurred vision, Cataracts, Conjunctivae Inflammation, Pain, Redness, Vision Change HEENT: Denies: Difficulty Hearing, Difficulty Swallowing, Hard of Hearing, Head Aches, Hearing Changes, Sinus Congestion, Sinus Drainage Cardiovascular: Denies: Chest Pain, Palpitations Respiratory: Denies: Cough, Shortness of breath at rest, Shortness of breath upon exertion, Sputum production Gastrointestinal: Denies: Abdominal Pain, Hematemesis, Hematochezia, Nausea, Vomiting Genitourinary: Denies: Dysuria Musculoskeletal: Denies: Joint Pain, Joint stiffness, Joint swelling, Joint Tenderness Skin: Denies: Rash, Wounds Neurological: Denies: Difficulty swallowing, Focal weakness, Numbness, Tingling Psychiatric: Denies: Anxiety, Depression, Homicidal Ideations, Suicidal Ideations Hematologic/ Lymphatic: Denies: Easy Bruising, Easy Bleeding VTE Information - Inpt Only VTE Present on Admission: No VTE Pharm Prophylaxis ordered?: Yes - Physical Exam Vitals/I&O's: Vital Signs Temp Pulse Resp BP Pulse Ox 97.8 F 90 18 136/104 H 99 03/13/19 17:08 03/13/19 17:08 03/13/19 17:08 03/13/19 17:08 03/13/19 17:08 Oxygen Flow Rate (L/min) 2 Oxygen Delivery Method Nasal Cannula Weight: 93.485 kg Body Mass Index (BMI) 30.4 Finger Stick Blood Glucose 105 General: Alert, Oriented x3, Cooperative, No apparent distress HEENT: Atraumatic, PERRLA, EOMI, Normocephalic Oral: Moist Mucosa Neck: Supple Lungs: Clear to auscultation, Normal air movement Cardiovascular: Regular rate, Regular Rhythm, Normal S1, Normal S2, No murmurs Abdomen: Bowel Sounds Present, Soft, Non Tender, Non-Distended, No Hepato- splenomegaly Extremities: No edema Skin: No rashes, No breakdown Musculoskeletal: No Tenderness to Palpation of Joints or Extremities Lymphatic: No Cervical, Supraclavicular, or Inguinal Adenopathy Neurological: Cranial nerves II-XII grossly intact, Neuro grossly intact Psych/Mental Status: Normal Affect, Appropriate Laboratory Results 03/13/19 11:25: POC Glucose 65 L 03/13/19 11:50: WBC 10.2, RBC 4.74, Hgb 13.5, Hct 42.8, MCV 90.3, MCH 28.5, MCHC 31.5 L, RDW Std Deviation 52.7 H, RDW Coeff of [place] 15.9 H, Plt Count 243, MPV 8.7, Immature Gran % (Auto) 1.600 H, Neut % (Auto) 84.4 H, Lymph % (Auto) 4.2 L, [place] % (Auto) 8.5, Eos % (Auto) 0.7, Baso % (Auto) 0.6, Absolute Neuts (auto) 8.6 H, Absolute Lymphs (auto) 0.43 L, Nucleated RBC % 0 03/13/19 11:50: Sodium 138, Potassium 3.8, Chloride 103, Carbon Dioxide 31.0, Anion Gap 4 L, BUN 20 H, Creatinine 1.77 H, Estim Creat Clear Calc 41.05, Est GFR (MDRD) Af Amer 50 L, Est GFR (MDRD) Non-Af 41 L, BUN/Creatinine Ratio 11.3, Glucose 108 H, Calcium 8.2 L, Troponin I < 0.015 03/13/19 12:36: POC Glucose 105 03/13/19 14:40: Urine Color Yellow, Urine Clarity Clear, Urine pH 7.0, Ur Specific [place] 1.010, Urine Protein 100 H, Urine Glucose (UA) 50 H, Urine Ketones Negative, Urine Occult Blood Negative, Urine Nitrite Negative, Urine Bilirubin Negative, Urine Urobilinogen Normal, Ur Leukocyte Esterase 25 H, Urine RBC 0 SEEN, Urine WBC 0-5 SEEN, Ur Squamous Epith Cells 0-5 SEEN, Urine Bacteria 0 SEEN, Urine Mucus 0 SEEN 03/13/19 16:32: POC Glucose 73 Current Medications Acetaminophen (Tylenol) 650 mg PO Q6H PRN PRN PRN Reason: Pain Score 1-3/Temp > 100.7 F Amiodarone HCl (Cordarone) 200 mg PO DAILY [facility] Aspirin (Aspirin, Baby) 81 mg PO DAILY@0800 [facility] Carvedilol (Coreg) 25 mg PO BID [facility] Clopidogrel Bisulfate (Plavix) 75 mg PO DAILY [facility] Dextrose (D50w Syringe) 0 gm IV X1 PRN; Protocol PRN Reason: Hypoglycemia Dicyclomine HCl (Bentyl) 10 mg PO TIDAC [facility] Dicyclomine HCl (Bentyl) 10 mg PO QHS [facility] Fluticasone Propionate (Flonase Nasal [place]) 2 spray NASAL DAILY PRN PRN Reason: NASAL CONGESTATION Furosemide (Lasix) 80 mg PO DAILY [facility] Glucagon () 1 mg IM .X1 PRN PRN Reason: Hypoglycemia Hydralazine HCl (Apresoline) mg PO TID [facility] Insulin Human Lispro (Humalog Kwikpen (Bkc)) [facility]; Protocol Isosorbide Mononitrate (Imdur) 120 mg PO BID [facility] Loratadine (Claritin) 10 mg PO DAILY [facility] Losartan Potassium (Cozaar) 100 mg PO DAILY [facility] Metolazone (Zaroxolyn) 2.5 mg PO DAILY [facility] Non-Formulary Medication (Ranolazine [Ranolazine Er]) 500 mg PO BID [facility] Non-Formulary Medication (Ranitidine Hcl [Zantac 75]) 75 mg PO BID [facility] Ondansetron HCl (Zofran) 4 mg IV Q8H PRN PRN PRN Reason: NAUSEA/VOMITING Ondansetron HCl (Zofran Odt) 4 mg PO Q8H PRN PRN PRN Reason: NAUSEA/VOMITING Pantoprazole Sodium (Protonix) 40 mg PO BID [facility] Pravastatin Sodium (Pravachol) 40 mg PO DAILY [facility] Sodium Chloride () 10 - 40 ml IV UD PRN PRN Reason: SALINE FLUSH Assessment/Plan All Active Problems (Last Reviewed 03/01/19 @ 13:52 by Yaritza Braden) Abdominal pain (Resolved) Acute pulmonary edema (Resolved) Acute respiratory failure (Resolved) Atrial fibrillation with RVR (Resolved) Chest pain (Resolved) Chest pain (Resolved) Elevated troponin (Resolved) Esophagitis determined by endoscopy (Resolved 05/06/17) Metabolic acidosis (Resolved) Shortness of breath (Resolved) Systolic CHF, acute on chronic (Resolved) 68 year old M with past medical history of CAD status post stent, paroxysmal atrial fibrillation, chronic systolic CHF with EF of 20%, hypertension, type II DM, hyperlipidemia who comes in through the ED with hypoglycemia. 1. Hypoglycemia in a known type II diabetic on insulin Patient has recently had hyperglycemia and had changes made to his insulin Unclear if patient is overdrawing his insulin from poor eyesight He has not seen an residential service technician in a while; recommended that he sees one when he gets discharged Hold off all insulin Continue to monitor blood sugars, low-dose insulin sliding scale if needed May need to have his insulin adjusted tomorrow morning 2. Paroxysmal atrial fibrillation/chronic systolic CHF,EF /CAD status post stent/hypertension/hyperlipidemia - all remain stable Not in acute CHF exacerbation Continue on aspirin, carvedilol, amiodarone, Lasix, hydralazine, isosorbide, losartan, metolazone, Ranexa, apixaban, pravastatin 3. CKD stage III, creatinine at baseline Will trend labs 4. DVT PPx-on apixaban 5. Code status - DNR-CCA Patient had the power of civil litigation attorney for health in his daughter's name. Discussed in detail with the patient explaining the various types of CODE STATUS-full code, DNR CCA, DNR CC. He chose DNR-CCA Time spent discussing CODE STATUS 18 minutes Code Visit Inpatient E&M: 60928 Subs Hosp L2 Procedures: 27899 Advncd Care Plan 30 Min
[2019-03-13 17:25] LABS: Bedside Glucose 90 mg/dL (70-110)
[2019-03-13 18:25] LABS: AST(SGOT) 17 U/L (15-37); Alanine Aminotransfer ALT/SGPT 21 U/L (16-61); Albumin, Serum 3.5 g/dL (3.2-5.0); Alkaline Phosphatase 75 U/L (45-117); Bilirubin, Direct 0.15 mg/dL (0.00-0.30); Globulin 3.5 g/dL (2.2-4.2)
[2019-03-13] MEDS: hydrALAZINE 50 MG Tablet 75 MG PO (21:16)
[2019-03-13] MEDS: Pravastatin 40 MG Tablet PO (21:16)
[2019-03-13] MEDS: Carvedilol 25 MG Tablet PO (21:16)
[2019-03-13] MEDS: Ranolazine 500 MG Tablet PO (21:16)
[2019-03-13] MEDS: Dicyclomine 10 MG Capsule PO (21:16)
[2019-03-13] MEDS: Pantoprazole Sodium 40 MG Tablet PO (21:16)
[2019-03-13] MEDS: Famotidine 20 MG Tablet 10 MG PO (21:17)
[2019-03-13] MEDS: Acetaminophen 325 MG Tablet 650 MG PO (22:53)
[2019-03-13 22:56] LABS: Bedside Glucose 147 mg/dL (70-110)
[2019-03-14] VITALS (12 sets, daily range): BP systolic 90–128; BP diastolic 62–73; PULSE 81–96; RESP 18; TEMP 36.4–36.8; O2SAT 92–96
[2019-03-14] MEDS: hydrALAZINE 50 MG Tablet 75 MG PO ×2 (06:08→21:08)
[2019-03-14] MEDS: Dicyclomine 10 MG Capsule PO ×4 (06:08→21:10)
[2019-03-14 06:40] LABS: Absolute Lymphocyte Count 0.89 X10^3/uL (0.83-4.51); Absolute Neutrophil Count 5.1 X10^3/uL (2.0-7.7); Basophil# 0.03 X10^3/uL; Basophil% 0.4 % (0-1); Eosinophil# 0.18 X10^3/uL; Eosinophils% 2.5 % (0-5); Hematocrit 37.2 % (40-54); Hemoglobin 11.6 g/dL (13.0-16.5); Lymphocyte # 0.89 X10^3/ul (4.0); Lymphocyte % 12.4 % (19-41); Mean Corp Hgb Conc 31.2 g/dL (32-36); Mean Corpuscular Volume 89.9 fL (80-94); Mean Platelet Vol. 9.2 fl (6.2-12.0); Monocyte# 0.88 X10^3/uL; Monocyte% 12.3 % (0-10); NRBC Flagged by Analyzer 0 % (0-5); Neutrophil # 5.07 X10^3/uL (2.7-7.7); Platelet Count 218 K/mm3 (150-450); RBC Distribution Width CV 16.5 % (11.6-14.6); RBC Distribution Width SD 53.6 fl (35.1-43.9); Red Blood Count 4.14 M/mm3 (4.6-6.2); White Blood Count 7.2 K/mm3 (4.4-11.0)
[2019-03-14 06:54] LABS: ALB/GLOB Ratio 0.8 RATIO (0.9-2.4); AST(SGOT) 14 U/L (15-37); Alanine Aminotransfer ALT/SGPT 17 U/L (16-61); Albumin, Serum 2.8 g/dL (3.2-5.0); Alkaline Phosphatase 65 U/L (45-117); Anion Gap 5 (5-15); BUN 18 mg/dL (7-18); BUN/Creat Ratio 10.2 RATIO (10-20); Calcium,Total 7.8 mg/dL (8.5-10.1); Chloride 104 mmol/L (98-107); Creatinine, Serum 1.76 mg/dL (0.70-1.30); EST Glomerular Filtration Rate 41 mL/min (>60); Est Glom Filt Rate - Afr Amer 50 mL/min (>60); Estimated Creatinine Clearance 41.29 ml/min; Globulin 3.3 g/dL (2.2-4.2); Glucose 44 mg/dL (74-106); Potassium 3.5 mmol/L (3.5-5.1); Protein, Total 6.1 g/dL (6.4-8.2); Sodium Level 139 mmol/L (136-145)
[2019-03-14 07:20] LABS: Bedside Glucose 46 mg/dL (70-110)
[2019-03-14 07:20] LABS: Bedside Glucose 44 mg/dL (70-110)
[2019-03-14 07:41] LABS: Bedside Glucose 76 mg/dL (70-110)
[2019-03-14 07:45] LABS: Glucose 41 mg/dL (74-106)
[2019-03-14] MEDS: Famotidine 20 MG Tablet 10 MG PO ×2 (09:07→21:07)
[2019-03-14] MEDS: Aspirin 81 MG TAB.CHEW PO (09:07)
[2019-03-14] MEDS: Metolazone 2.5 MG Tablet PO (09:07)
[2019-03-14] MEDS: Furosemide 80 MG Tablet PO (09:08)
[2019-03-14] MEDS: Loratadine 10 MG Tablet PO (09:08)
[2019-03-14] MEDS: Carvedilol 25 MG Tablet PO ×2 (09:08→21:07)
[2019-03-14] MEDS: Losartan Potassium 100 MG Tablet PO (09:08)
[2019-03-14] MEDS: Amiodarone 200 MG Tablet PO (09:08)
[2019-03-14] MEDS: Pantoprazole Sodium 40 MG Tablet PO ×2 (09:08→21:06)
[2019-03-14] MEDS: Ranolazine 500 MG Tablet PO ×2 (09:09→21:06)
[2019-03-14 09:26] LABS: Bedside Glucose 96 mg/dL (70-110)
--- NOTE | 2019-03-14 11:14 | CASEMGMT ---
RN CM Assessment Presentation: Hypoglycemia Intro role of CM and purpose of RN CM assessment to patient and his daughter. Demographics, PCP and Pharmacy verified. Pt lives with daughter who works during the day, but close by. Pt is independent at home, uses cane only and per daughter is safe at home. -Dr. Bond reviewed insulin use with patient and daughter for discharge. PCP: Dr. Jennifer Spicer Specialists: Dr. Butler, cardiology Preferred Pharmacy: [facility] Insurance: [employer] Medicare Prescription Benefit: yes LNOK: Daughter Cristy Monroy Living Arrangements: Lives independently with daughter. States is independent in ADL, but family is available if needed. Transportation: drives and family can drive if needed. DME: cane, walker, blolod glucose monitoring machine. HHC/SNF: none Patient DC goals: Home DC PLAN: Home on discharge.
[2019-03-14 11:31] LABS: Bedside Glucose 89 mg/dL (70-110)
[2019-03-14 14:20] LABS: Bedside Glucose 176 mg/dL (70-110)
[2019-03-14] MEDS: Insulin Lispro 100 UNIT/ML INSULN.PEN SC ×2 (16:09→21:10)
[2019-03-14 16:15] LABS: Bedside Glucose 169 mg/dL (70-110)
[2019-03-14] MEDS: Glucerna Shake 120 ML LIQUID PO (21:02)
[2019-03-14] MEDS: Pravastatin 40 MG Tablet PO (21:07)
[2019-03-14 21:16] LABS: Bedside Glucose 228 mg/dL (70-110)
[2019-03-15] VITALS (11 sets, daily range): BP systolic 117–144; BP diastolic 68–106; PULSE 75–110; RESP 16–18; TEMP 36.5–36.8; O2SAT 92–96; BMI 30.2
[2019-03-15] MEDS: 0.9% Saline Lock 10 ML Syringe IV (06:52)
[2019-03-15 07:01] LABS: Bedside Glucose 130 mg/dL (70-110)
--- NOTE | 2019-03-15 08:09 | PCM.PROGNOTE ---
Subjective: The date of this entry should be 03/14/2019: Patient was seen and examined today, he was admitted yesterday for hypoglycemia, his is in the room today and I talked with her and the patient about his insulin usage-patient is on 70/30 insulin at home, I told him it was more difficult to adjust his insulin dosage and blood sugars when he was on an insulin such as 70/30. It is difficult to adjust this insulin because it is a fixed dose of long-acting and short acting insulin. Patient is due to have an EGD tomorrow morning, he needs to be down in outpatient surgery at approximately 9 AM. I told him to stay that as long as his blood sugars did not dip precipitously he would be discharged tomorrow morning. - Physical Exam Vitals/I&O's: Vital Signs Temp Pulse Resp BP Pulse Ox 98 F 101 H 18 128/72 H 95 03/15/19 02:33 03/15/19 02:34 03/15/19 02:33 03/15/19 02:33 03/15/19 07:42 Oxygen Flow Rate (L/min) 2 Oxygen Delivery Method Room Air Weight: 93.485 kg Body Mass Index (BMI) 30.4 Finger Stick Blood Glucose 105 Intake and Output for Last 24 Hours 03/13/19 03/14/19 03/15/19 23:59 23:59 23:59 Intake Total 480 / 480 700 / 700 Output Total 550 / 550 5 / 2125 Balance -70 / -70 -1425 / -1425 General: Alert, Oriented x3, Cooperative HEENT: Atraumatic, PERRLA, EOMI, Normocephalic Neck: Supple, No JVD, Negative Carotid Bruits Lungs: Clear to auscultation, Normal air movement, No rhonchi, No wheeze, No rales Cardiovascular: Regular rate, No murmurs Abdomen: Bowel Sounds Present, Soft, Non Tender, Non-Distended Extremities: No edema, Capillary Refill Less than 3 Seconds Skin: No rashes, No breakdown Musculoskeletal: No Tenderness to Palpation of Joints or Extremities Neurological: Cranial nerves II-XII grossly intact, Sensory exam intact to light touch and pain, Coordination normal Psych/Mental Status: Normal Affect, Appropriate, Alert and oriented to time, place, person, mood and affect Laboratory Results 03/14/19 09:20: POC Glucose 96 03/14/19 11:19: POC Glucose 89 03/14/19 14:13: POC Glucose 176 H 03/14/19 16:06: POC Glucose 169 H 03/14/19 21:01: POC Glucose 228 H 03/15/19 06:54: POC Glucose 130 H Current Medications Acetaminophen (Tylenol) 650 mg PO Q6H PRN PRN PRN Reason: Pain Score 1-3/Temp > 100.7 F Last Admin: 03/13/19 22:53 Dose: 650 mg Documented by: Albuterol/Ipratropium (Duoneb) 3 ml INHALATION Q4HWA.RT PRN PRN Reason: SOB &/OR WHEEZING Amiodarone HCl (Cordarone) 200 mg PO DAILY [facility] Last Admin: 03/14/19 09:08 Dose: 200 mg Documented by: Aspirin (Aspirin, Baby) 81 mg PO DAILY@0800 [facility] Last Admin: 03/14/19 09:07 Dose: 81 mg Documented by: Carvedilol (Coreg) 25 mg PO BID [facility] Last Admin: 03/14/19 21:07 Dose: 25 mg Documented by: Dextrose (D50w Syringe) 0 gm IV X1 PRN; Protocol PRN Reason: Hypoglycemia Dicyclomine HCl (Bentyl) 10 mg PO TIDAC [facility] Last Admin: 03/15/19 06:39 Dose: Not Given Documented by: Dicyclomine HCl (Bentyl) 10 mg PO QHS [facility] Last Admin: 03/14/19 21:10 Dose: 10 mg Documented by: Famotidine (Pepcid) 10 mg PO BID [facility] Last Admin: 03/14/19 21:07 Dose: 10 mg Documented by: Fluticasone Propionate (Flonase Nasal [place]) 2 spray NASAL DAILY PRN PRN Reason: NASAL CONGESTATION Furosemide (Lasix) 80 mg PO DAILY [facility] Last Admin: 03/14/19 09:08 Dose: 80 mg Documented by: Glucagon () 1 mg IM .X1 PRN PRN Reason: Hypoglycemia Hydralazine HCl (Apresoline) 75 mg PO TID [facility] Last Admin: 03/15/19 06:39 Dose: Not Given Documented by: Insulin Human Lispro (Humalog Kwikpen (Bkc)) 0 unit SC ACHS [facility]; Protocol Last Admin: 03/15/19 06:55 Dose: Not Given Documented by: Isosorbide Mononitrate (Imdur) 120 mg PO BID [facility] Last Admin: 03/14/19 21:07 Dose: 120 mg Documented by: Loratadine (Claritin) 10 mg PO DAILY [facility] Last Admin: 03/14/19 09:08 Dose: 10 mg Documented by: Losartan Potassium (Cozaar) 100 mg PO DAILY [facility] Last Admin: 03/14/19 09:08 Dose: 100 mg Documented by: Metolazone (Zaroxolyn) 2.5 mg PO DAILY [facility] Last Admin: 03/14/19 09:07 Dose: 2.5 mg Documented by: Nutritional Formula (Lactose Free) (Glucerna Shake) 120 ml PO 4X/DAY [facility] Last Admin: 03/14/19 21:02 Dose: 120 ml Documented by: Ondansetron HCl (Zofran) 4 mg IV Q8H PRN PRN PRN Reason: NAUSEA/VOMITING Ondansetron HCl (Zofran Odt) 4 mg PO Q8H PRN PRN PRN Reason: NAUSEA/VOMITING Pantoprazole Sodium (Protonix) 40 mg PO BID [facility] Last Admin: 03/14/19 21:06 Dose: 40 mg Documented by: Pravastatin Sodium (Pravachol) 40 mg PO QHS [facility] Last Admin: 03/14/19 21:07 Dose: 40 mg Documented by: Ranolazine (Ranexa) 500 mg PO BID [facility] Last Admin: 03/14/19 21:06 Dose: 500 mg Documented by: Sodium Chloride () 10 - 40 ml IV UD PRN PRN Reason: SALINE FLUSH Last Admin: 03/15/19 06:52 Dose: 10 ml Documented by: Medical Necessity - Tobacco Use Smoking Status: Former smoker Tobacco Use: Cigarettes Assessment/Plan All Active Problems (Last Reviewed 03/01/19 @ 13:52 by Yaritza Braden) Abdominal pain (Resolved) Acute pulmonary edema (Resolved) Acute respiratory failure (Resolved) Atrial fibrillation with RVR (Resolved) Chest pain (Resolved) Chest pain (Resolved) Elevated troponin (Resolved) Esophagitis determined by endoscopy (Resolved 05/06/17) Metabolic acidosis (Resolved) Shortness of breath (Resolved) Systolic CHF, acute on chronic (Resolved) #1 hypoglycemia-blood sugars will be monitored, I will refrain from giving the patient basal insulin while he is in the hospital. #2 type 2 diabetes #3 coronary artery disease #4 paroxysmal atrial fibrillation #5 chronic kidney disease stage III secondary to type 2 diabetes Code Visit Inpatient E&M: 74895 Subs Hosp L2
--- NOTE | 2019-03-15 08:26 | PCM.DC ---
- Discharge Diagnoses Current Active Problems: Current Active and Chronic Problems (Last Reviewed 03/01/19 @ 13:52 by Yaritza Braden) History of coronary artery stent placement (Chronic 06/08/16) SARA-RCA 06/15/2011, SARA-OM1 06/30/2011, SARA-LAD 08/20/2014, SARA-Prox- RCA 06/08/2016 You will use the following diet at home:: Calorie/Carbohydrate Controlled (specify 1200, 1400, etc) - 1800 tangela Your food should be the consistency of: Regular Your liquids should be the consistency of: Regular/Thin Discharge Activity: Return to Normal Activity Weight Bearing Status: Full weight bearing Allergies/Adverse Reactions: Allergies diltiazem Allergy (Verified 03/13/19 11:15) LOWER LEG SWELLING tamsulosin [From Flomax] Allergy (Verified 03/13/19 16:39) Shortness of breath/muscle weakness atorvastatin calcium [From Lipitor] Adverse Reaction (Verified 03/13/19 11:15) MUSCLE WEAKNESS Medications to take at Discharge Albuterol Sulfate [Ventolin Hfa] 2 puff INHALATION Q4H PRN 03/13/19 Amiodarone HCl [Cordarone] 200 mg PO DAILY 03/13/19 Apixaban [Eliquis] 2.5 mg PO BID 03/13/19 Aspirin [Aspirin, Baby] 81 mg PO DAILY@0800 03/13/19 Carvedilol [Coreg] 25 mg PO BID 03/13/19 Clopidogrel Bisulfate [Plavix] 75 mg PO DAILY 03/13/19 Dicyclomine HCl 10 mg PO QHS 03/13/19 Dicyclomine HCl [Bentyl] 10 mg PO TIDAC 03/13/19 Fluticasone 0.05% [Flonase Nasal [place]] 2 spray NASAL DAILY PRN 03/13/19 Furosemide [Lasix] 80 mg PO DAILY 03/13/19 Isosorbide Mononitrate [Isosorbide Mononitrate ER] 120 mg PO BID 03/13/19 Loratadine 10 mg PO DAILY 03/13/19 Losartan Potassium [Cozaar] 100 mg PO DAILY 03/13/19 Pantoprazole Sodium [Protonix] 40 mg PO BID 03/13/19 Pravastatin Sodium 40 mg PO QHS 03/13/19 Ranitidine HCl [Zantac 75] 75 mg PO BID 03/13/19 Ranolazine [Ranolazine ER] 500 mg PO BID 03/13/19 hydrALAZINE [Apresoline] 100 mg PO TID 03/13/19 Insulin NPH Human Isophane [Novolin N] 15 unit SQ BID #1 vial 03/15/19 The following prescriptions were given: Insulin NPH Human Isophane [Novolin N] 15 unit SQ BID #1 vial Transmission Status: Pending to [facility] Primary Care Physician: Jennifer Spicer DO [Primary Care Provider] - Please follow up with your Primary Care Physician in: within one week Test Results: Test results from this visit will be discussed in further detail at your follow-up appointment, if applicable.
--- NOTE | 2019-03-15 10:00 | IMM_PTH ---
PATIENT: RYAN CUMMINS LOC: MS3 U#:[id number] AGE/SX: 68/M ROOM: W[place]320 RE03/13/[address]: Dr. Grant Bond DO : 1950 BED: 1 DIS: 03/15/2019 SPEC #: [id number] RECD: 03/16/19 09:06 STATUS: ISRA[place] REQ #: [id number] SUSIE: 03/15/19 10:[address]: Zakia Osorio DEPT: IMMUNOHISTOCHEMISTRY RECD BY: Agnes Hines ENTERED: 03/16/19 09:07 SP TYPE: IMMUNO OTHR DR: MD Dr. Jennifer Batres DO Dr. Mark Tereletsky, DO Tissues: A - Pyloric portion of stomach Procedures: H Pylori (initial) PHYSICIAN & INSTITUTION [place] [id number] SPECIMEN INFORMATION: Tissue Source: A - Prepyloric biopsy Clinical Info: History Tadeo's, epigastric pain Specimen Number: [id number] CPT code: 11991 METHODOLOGY: Deparaffinized sections of prefer/formalin-fixed tissue or PAP/DQ stained slides are incubated with monoclonal/polyclonal antibodies/oligonucleotide probes. Localization is made via biotin free immunoperoxidase method. Appropriate controls are performed and reacted as expected. Results on target cell population are indicated in the following table: RESULTS: ANTIBODY / CLONE RESULT Block A H Pylori (polyclonal) negative These tests were developed and their performance characteristics determined by [facility]. They may not have been cleared or approved by the U.S. Food and Drug Administration. The FDA has determined that such clearance or approval is not necessary. INTERPRETATION: A. Prepyloric biopsy: Negative for Helicobacter pylori organisms. SJ:wang 03/16/19
--- NOTE | 2019-03-15 10:00 | EGD_PTH ---
PATIENT: RYAN CUMMINS LOC: MS3 U#:[id number] AGE/SX: 68/M ROOM: [place]320 RE03/13/[address]: Dr. Grant Bond DO : 1950 BED: 1 DIS: 03/15/2019 SPEC #: [id number] RECD: 03/15/19 10:45 STATUS: ISRA[place] REKenney #: [id number] SUSIE: 03/15/19 10:[address]: Zakia Osorio DEPT: SURGICAL PATHOLOGY RECD BY: Agnes Hines ENTERED: 03/16/19 08:28 SP TYPE: EGD BIOPSY OT DR: MD Dr. Jennifer Batres DO Dr. Mark Tereletsky, DO Tissues: A - Pyloric portion of stomach B - Esophageal mucous membrane Procedures: Special Stain Group II Surgery Specimen Level IV Alcian Blue/PAS (control) HEADER OPERATION: EGD (MAC) PRE-OP DIAGNOSIS: History Tadeo's, epigastric pain TISSUE SUBMITTED: A - Prepyloric biopsy for histo and H. pylori, B - GE junction biopsy MICROSCOPIC DIAGNOSIS A. Prepyloric biopsy: Mild gastritis. See microscopic description and comment. B. GE junction, biopsy: Fragments of gastroesophageal mucosa with extensive intestinal metaplasia (goblet cell metaplasia), consistent with Tadeo's esophagus. No evidence of dysplasia. Mild chronic inflammation. See comment. SJ:wang 03/16/19 COMMENT A. The results of immunohistochemistry for Helicobacter pylori will be reported separately ([id number]). B. Alcian blue/PAS stain with matched control is used in the evaluation of the specimen. MICROSCOPIC DESCRIPTION Slides are reviewed. A. The specimen shows fragments of gastric mucosa with chronic inflammatory cell infiltrates in the lamina propria consisting of lymphocytes and plasma cells, consistent with mild chronic gastritis. Focal mucosal congestion is also noted. GROSS DESCRIPTION A - Received in fixative is one container labeled with the patient's name and designated prepyloric biopsy. The specimen consists of one irregular fragment of light muhammad soft tissue that measures 0.3 x 0.3 x 0.1 cm. The specimen is totally submitted in one cassette. B - Received in fixative is one container labeled with the patient's name and designated GE junction biopsy. The specimen consists of multiple irregular fragments of light muhammad soft tissue that in aggregate measure 0.7 x 0.5 x 0.1 cm. The specimen is totally submitted in one cassette. / SJ:rg 03/15/19 TC:3 CPT: 85416 x2, 90802
[2019-03-15 10:40] LABS: Bedside Glucose 117 mg/dL (70-110)
--- NOTE | 2019-03-16 13:37 | PCM.DC.SUM ---
Discharge Date and Diagnosis Date of Admission: 03/13/19 Date of Discharge: 03/15/19 - Primary Discharge Diagnosis #1 hypoglycemia secondary to home insulin usage for type 2 diabetes #2 type 2 diabetes #3 coronary artery disease #4 paroxysmal atrial fibrillation #5 chronic kidney disease stage III secondary to type 2 diabetes - Secondary Discharge Diagnosis Chronic Problems (Last Reviewed 03/01/19 @ 13:52 by Yaritza Braden) Essential hypertension (Chronic) senior living current use of 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) Nonsustained ventricular tachycardia (Chronic) Chronic systolic CHF (congestive heart failure) (Chronic) Presence of implantable cardioverter-defibrillator (ICD) (Chronic) 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) History of coronary artery stent placement (Chronic 06/08/16) SARA-RCA 06/15/2011, SARA-OM1 06/30/2011, SARA-LAD 08/20/2014, SARA-Prox- RCA 06/08/2016 Atherosclerosis of coronary artery of [place] heart without angina pectoris (Chronic) SARA-RCA 06/15/2011, SARA-OM1 06/30/2011, SARA-LAD 08/20/2014, SARA-Prox- RCA 06/08/2016 Paroxysmal atrial fibrillation (Chronic) Hyperlipidemia (Chronic) Type II diabetes mellitus (Chronic) Hyperkalemia (Chronic) Chronic renal failure, stage 3 (moderate) (Chronic) STEMI (ST elevation myocardial infarction) (Chronic) Anemia of chronic renal failure, stage 3 (moderate) (Chronic) Cardiomyopathy, ischemic (Chronic) Hospital Course and Treatment Operations: None Procedures: None Summary of Care Provided: The patient is a 68 year old M who was seen in the emergency room at [facility] with complaints of low blood sugar. Patient is a type II diabetic and is on 70/30 insulin at home. Blood sugar on arrival to the emergency room is 65, he was given amps of D50 and his blood sugar claude to 105. Patient was reluctant to go home and was admitted to [place] [id number] for hypoglycemia. Patient's blood sugars were monitored in the hospital, they did decline periodically but finally stabilized. Patient was kept off his 70/30 insulin. On 03/15/2019, patient was seen and examined: On examination he appeared in good health and spirits. Vital signs as documented. Skin warm and dry and without overt rashes. Neck without JVD. Lungs clear. Heart exam notable for regular rhythm, normal sounds and absence of murmurs, rubs or gallops. Abdomen unremarkable and without evidence of organomegaly, masses, or abdominal aortic enlargement. Extremities nonedematous. Neuro: Cranial nerves II through XII are grossly intact, no focal motor deficits were noted, sensation to light touch and pinprick intact. Psych: Patient is alert and oriented x3, he does not appear anxious or depressed On 03/15/2019, patient was seen and examined and felt to be in stable condition for discharge home - Physical Exam Vitals/I&O's: Vital Signs Temp Pulse Resp BP Pulse Ox 97.8 F 99 16 141/89 H 92 03/15/19 10:45 03/15/19 10:45 03/15/19 10:45 03/15/19 10:45 03/15/19 10:45 Oxygen Flow Rate (L/min) 2 Oxygen Delivery Method Room Air Weight: 92.986 kg Body Mass Index (BMI) 30.2 Finger Stick Blood Glucose 105 Intake and Output for Last 24 Hours 03/14/19 03/15/19 03/16/19 23:59 23:59 23:59 Intake Total 700 / 700 Output Total 2125 / 2125 Balance -1425 / -1425 Discharge Activity: Return to Normal Activity Weight Bearing Status: Full weight bearing Home Medications: Medications to take at Discharge Albuterol Sulfate [Ventolin Hfa] 2 puff INHALATION Q4H PRN 03/13/19 Amiodarone HCl [Cordarone] 200 mg PO DAILY 03/13/19 Apixaban [Eliquis] 2.5 mg PO BID 03/13/19 Aspirin [Aspirin, Baby] 81 mg PO DAILY@0800 03/13/19 Carvedilol [Coreg] 25 mg PO BID 03/13/19 Clopidogrel Bisulfate [Plavix] 75 mg PO DAILY 03/13/19 Dicyclomine HCl 10 mg PO QHS 03/13/19 Dicyclomine HCl [Bentyl] 10 mg PO TIDAC 03/13/19 Fluticasone 0.05% [Flonase Nasal [place]] 2 spray NASAL DAILY PRN 03/13/19 Furosemide [Lasix] 80 mg PO DAILY 03/13/19 Isosorbide Mononitrate [Isosorbide Mononitrate ER] 120 mg PO BID 03/13/19 Loratadine 10 mg PO DAILY 03/13/19 Losartan Potassium [Cozaar] 100 mg PO DAILY 03/13/19 Pantoprazole Sodium [Protonix] 40 mg PO BID 03/13/19 Pravastatin Sodium 40 mg PO QHS 03/13/19 Ranitidine HCl [Zantac 75] 75 mg PO BID 03/13/19 Ranolazine [Ranolazine ER] 500 mg PO BID 03/13/19 hydrALAZINE [Apresoline] 100 mg PO TID 03/13/19 Esomeprazole Mag Trihydrate [Nexium] 40 mg PO BID #20 cap 03/15/19 Insulin NPH Human Isophane [Novolin N] 15 unit SQ BID #1 vial 03/15/19 Following Prescrptions Were Given to Patient: Esomeprazole Mag Trihydrate [Nexium] 40 mg PO BID #20 cap Transmission Status: Received by [facility] Insulin NPH Human Isophane [Novolin N] 15 unit SQ BID #1 vial Transmission Status: Received by [facility] Primary Care Physician: Jennifer Spicer DO [Primary Care Provider] - Please follow up with your Primary Care Physician in: within one week Disposition: Home Minutes spent on discharge:: 34 Patient Condition:: Stable Medical Necessity - Tobacco Use Smoking Status: Former smoker Tobacco Use: Cigarettes Meaningful Use Info Meaningful Use Diagnoses (Choose all that apply): None applicable Code Visit Inpatient E&M: 57886 Disch Hosp
--- NOTE | 2019-03-16 15:35 | CASEMGMT ---
DEVYN CM DC PHONE CALL DC DATE: 03.15.19 DC Disposition: Home Diagnosis on Discharge: Hypoglycemia LACE/STRATA: 14/ Attempted call to home phone. No answer and no message machine with name identifier. Nii ARRINGTON RN ACM
== END 2019-03-15 11:24 | disposition home or self-care (01) | DRG 638 ==
LOC: ED 11:32 → MS3 15:43
PROVIDERS: Admitting Provider Internal Medicine; Emergency Provider Emergency Medicine; Family Provider Family Medicine; PCP Family Medicine; Referring Provider Internal Medicine; Visit Provider Internal Medicine
DX: E11.649 Type 2 diabetes mellitus with hypoglycemia without coma (principal); I50.22 Chronic systolic (congestive) heart failure; I25.10 Atherosclerotic heart disease of native coronary artery without angina pectoris; Z66 Do not resuscitate; N18.3 Chronic kidney disease, stage 3 (moderate); E11.22 Type 2 diabetes mellitus with diabetic chronic kidney disease; I48.0 Paroxysmal atrial fibrillation; I11.0 Hypertensive heart disease with heart failure; Z95.810 Presence of automatic (implantable) cardiac defibrillator; Z79.4 Long term (current) use of insulin; Z87.891 Personal history of nicotine dependence; Z95.5 Presence of coronary angioplasty implant and graft; K22.70 Barrett's esophagus without dysplasia; K31.89 Other diseases of stomach and duodenum
CPT/HCPCS: 36415; 51702; 70450; 71045; 80048; 80053; 80076; 81001; 82947; 82962; 84484; 85025; 88305; 88313; 88342; 93005; 97162; 97166; 99285; J7120; A4216; J2405

== ENCOUNTER 2019-04-02 19:36 | Emergency (ER) | payer MEDICARE, SELFPAY ==
[2016-06-12 14:02] VITALS: BMI 29.7
[2019-03-22 09:34] VITALS: BMI 30.4
[2019-04-02 19:36] VITALS: BP 158/99; PULSE 100; RESP 20; TEMP 36.5; O2SAT 95; BMI 30.2
[2019-04-02 20:00] VITALS: BP 166/99; PULSE 100; RESP 20; O2SAT 95
--- NOTE | 2019-04-02 20:18 | EKG12_ITS ---
Test Reason : SOB Blood Pressure : / mmHG Vent. Rate : 084 BPM Atrial Rate : 250 BPM P-R Int : 000 ms QRS Dur : 106 ms QT Int : 428 ms P-R-T Axes : 000 -43 012 degrees QTc Int : 505 ms Atrial fibrillation Left axis deviation Inferior infarct , age undetermined Anterior infarct , age undetermined Prolonged QT Abnormal ECG Confirmed by BELKIS METZ, JUANJOSE ([id number]), newspaper managing editor LISBET HAWK ([id number]) on 04/04/2019 9:45:58 AM Referred By: ALBERTO Confirmed By:JUANJOSE TAMAYO MD
--- NOTE | 2019-04-02 20:18 | RAD_ITS ---
HISTORY:COUGH, SOB AND DIZZINESS THAT STARTED 2 DAYS AGO COUGH, SOB AND DIZZINESS THAT STARTED 2 DAYS AGO EXAMINATION/TECHNIQUE: XR Chest 1 View: COMPARISON: March 13, 2019 FINDINGS: LINES/DEVICES: Pacemaker in similar position to prior study LUNGS: No consolidation, edema or effusion. No pneumothorax. MEDIASTINUM AND CARDIOVASCULAR STRUCTURES: Stable cardiomegaly Central airways and mediastinal contour are unremarkable. BONES AND SOFT TISSUES: Unremarkable. RAD/Chest 1 View (Portable) IMPRESSION: Stable cardiomegaly with pacemaker at 2141 Reported and signed by: Elma Muhammad DO Electronically Signed: Elma Muhammad DO at 21:40 EST Tel , Service support ,
[2019-04-02 20:37] LABS: Absolute Lymphocyte Count 0.68 X10^3/uL (0.83-4.51); Absolute Neutrophil Count 5.2 X10^3/uL (2.0-7.7); Basophil# 0.05 X10^3/uL; Basophil% 0.7 % (0-1); Eosinophil# 0.12 X10^3/uL; Eosinophils% 1.7 % (0-5); Hematocrit 41.8 % (40-54); Hemoglobin 13.5 g/dL (13.0-16.5); Lymphocyte # 0.68 X10^3/ul (4.0); Lymphocyte % 9.8 % (19-41); Mean Corp Hgb Conc 32.3 g/dL (32-36); Mean Corpuscular Hgb 28.6 pg (27.0-32.0); Mean Corpuscular Volume 88.6 fL (80-94); Mean Platelet Vol. 8.7 fl (6.2-12.0); Monocyte# 0.84 X10^3/uL; Monocyte% 12.1 % (0-10); NRBC Flagged by Analyzer 0 % (0-5); Neutrophil # 5.15 X10^3/uL (2.7-7.7); Neutrophil % 73.8 % (47-70); Platelet Count 205 K/mm3 (150-450); RBC Distribution Width CV 15.8 % (11.6-14.6); RBC Distribution Width SD 51.1 fl (35.1-43.9); Red Blood Count 4.72 M/mm3 (4.6-6.2)
[2019-04-02] MEDS: Albuterol 2.5 MG/3 ML VIAL.NEB. INHALATION (20:40)
[2019-04-02 20:41] VITALS: PULSE 85; RESP 20
[2019-04-02 20:49] VITALS: PULSE 93; RESP 19; TEMP 36.7; O2SAT 95
[2019-04-02 21:05] LABS: Anion Gap 8 (5-15); BUN 25 mg/dL (7-18); BUN/Creat Ratio 12.1 RATIO (10-20); Calcium,Total 8.3 mg/dL (8.5-10.1); Chloride 98 mmol/L (98-107); Creatinine, Serum 2.07 mg/dL (0.70-1.30); EST Glomerular Filtration Rate 34 mL/min (>60); Est Glom Filt Rate - Afr Amer 42 mL/min (>60); Glucose 312 mg/dL (74-106); Potassium 3.9 mmol/L (3.5-5.1); Sodium Level 134 mmol/L (136-145)
[2019-04-02 21:19] LABS: BNP,B-Type NATRIURETIC PEPTIDE 162.2 pg/mL (0-100)
--- NOTE | 2019-04-02 21:58 | ED.VISSUMM ---
- ER Visit Summary Date of Service: 04/02/19 Chief Complaint: Cough History of Present Illness: The patient is a 68 M with a cough for 2 days. This is nonproductive. Associated with some shortness of breath, worse with walking. He feels dizzy and lightheaded at times. He had some chest pressure with coughing only. History of [place], CHF, diabetes, hypertension, hyperlipidemia, atrial fibrillation, and others. History of pacemaker and defibrillator. He does take blood thinners including Eliquis. Physical Examination: Afebrile and vital signs unremarkable. Patient alert and oriented. No acute distress. Lungs are diminished in all alejo. Heart is regular. Abdomen is soft. Extremities nontender with no edema. Test Results: EKG shows A. fib at a rate of 84 with nonspecific changes. CBC normal. Sodium 134, creatinine stable at 2.07. Troponin normal. BNP 162. Chest x-ray shows chronic cardiomegaly. Emergency Department Course and Treatment: Patient treated with albuterol. No improvement. His vital signs are stable. Oxygen is good. Will treat as an outpatient. Prescription for doxycycline and Tessalon. He may use his inhaler at home. Return for any new or worsening issues. Treatment Plan: As above Disposition: Discharge Impression: 1. Acute bronchitis This note was generated with [employer] dictation software. It may contain incorrect words, spelling, and punctuation that were not noted in review of the chart prior to signing ED Disposition - Plan for ED Patient: Referrals: Jennifer Spicer DO [Primary Care Provider] -
--- NOTE | 2019-04-02 22:02 | ED.DEP ---
ED Disposition - Plan for ED Patient: Instructions: BRONCHITIS, Antiobiotic Treatment (Adult) Prescriptions: Doxycycline 100 mg PO BID #20 cap Prescription Printed Benzonatate [Tessalon Perle] 200 mg PO TID PRN PRN #20 cap PRN Reason: Cough Prescription Printed Referrals: Jennifer Spicer DO [Primary Care Provider] -
[2019-04-02 22:10] VITALS: BP 147/101; PULSE 90; RESP 24; O2SAT 95
[2019-04-02] MEDS: Doxycycline 100 MG CAPSULE PO (22:13)
== END 2019-04-02 22:18 | disposition home or self-care (01) ==
PROVIDERS: Emergency Provider Emergency Medicine; Family Provider Family Medicine; PCP Family Medicine
DX: J20.9 Acute bronchitis, unspecified (principal); I48.91 Unspecified atrial fibrillation; I25.2 Old myocardial infarction; I13.0 Hypertensive heart and chronic kidney disease with heart failure and stage 1 through stage 4 chronic kidney disease, or unspecified chronic kidney disease; E11.22 Type 2 diabetes mellitus with diabetic chronic kidney disease; N18.9 Chronic kidney disease, unspecified; I50.9 Heart failure, unspecified; E78.5 Hyperlipidemia, unspecified; Z95.0 Presence of cardiac pacemaker; Z79.01 Long term (current) use of 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s; Z79.82 Long term (current) use of aspirin; Z79.4 Long term (current) use of insulin; Z87.891 Personal history of nicotine dependence
CPT/HCPCS: 71045; 80048; 83880; 84484; 85025; 93005; 94640; 99284; A4216

== ENCOUNTER 2019-04-20 13:35 | Observation (INO) | payer MEDICARE, SELFPAY ==
[2016-06-12 14:02] VITALS: BMI 29.7
[2019-04-20] VITALS (11 sets, daily range): BP systolic 135–190; BP diastolic 89–129; PULSE 79–109; RESP 14–22; TEMP 36.5–36.7; O2SAT 94–98; BMI 30.6; BMI 30.7
--- NOTE | 2019-04-20 13:47 | EKG12_ITS ---
Test Reason : Blood Pressure : / mmHG Vent. Rate : 104 BPM Atrial Rate : 250 BPM P-R Int : 000 ms QRS Dur : 114 ms QT Int : 336 ms P-R-T Axes : 000 -49 095 degrees QTc Int : 441 ms Atrial flutter with variable A-V block Left axis deviation Inferior infarct (cited on or before 07-JAN-2018) Possible Anterolateral infarct (cited on or before 07-JAN-2018) Abnormal ECG Confirmed by MEL METZ, REINA ([id number]), editor house organ MELLISSA HOPKINS ([id number]) on 04/24/2019 12:13:50 PM Referred By: Jennifer Spicer Confirmed By:REINA LEAL MD
--- NOTE | 2019-04-20 13:47 | RAD_ITS ---
STUDY: X-RAY CHEST REASON FOR EXAM: Male, 68 years old. CHEST PAINS AND SOB -- HX OF 2 CO''s, HX OF STENTS AND DEFIBRILLATOR INSERTION 2 YEARS AGO. TECHNIQUE: Single AP portable view of the chest. COMPARISON: Comparison is made with prior study dated April 02, 2019. FINDINGS: EKG electrodes are seen. A left-sided unipolar pacemaker is visualized. There now is evidence of vascular congestion and mild degree of CHF. There is no demonstrated pleural abnormality. There is mild cardiac enlargement. Normal mediastinum and loco. Normal visualized pulmonary arteries. Normal visualized aortic arch and descending thoracic aorta. There are degenerative changes of the visualized thoracic spine. There is degenerative osteoarthritis of the bilateral shoulders. There is no demonstrated abnormality of the visualized soft tissue structures of the upper abdomen. RAD/Chest 1 View (Portable) IMPRESSION: Mild cardiomegaly and CHF. Electronically Signed: Domingo Noyola, at 14:20 EST , Service support ,
[2019-04-20 14:09] LABS: Absolute Lymphocyte Count 0.69 X10^3/uL (0.83-4.51); Absolute Neutrophil Count 6.5 X10^3/uL (2.0-7.7); Basophil# 0.05 X10^3/uL; Basophil% 0.6 % (0-1); Eosinophil# 0.18 X10^3/uL; Eosinophils% 2.2 % (0-5); Hematocrit 44.6 % (40-54); Hemoglobin 13.8 g/dL (13.0-16.5); Lymphocyte # 0.69 X10^3/ul (4.0); Lymphocyte % 8.3 % (19-41); Mean Corp Hgb Conc 30.9 g/dL (32-36); Mean Corpuscular Hgb 27.4 pg (27.0-32.0); Mean Corpuscular Volume 88.7 fL (80-94); Mean Platelet Vol. 9.8 fl (6.2-12.0); Monocyte% 9.6 % (0-10); NRBC Flagged by Analyzer 0 % (0-5); Neutrophil # 6.51 X10^3/uL (2.7-7.7); Neutrophil % 78.5 % (47-70); Platelet Count 249 K/mm3 (150-450); RBC Distribution Width CV 15.4 % (11.6-14.6); RBC Distribution Width SD 50.1 fl (35.1-43.9); Red Blood Count 5.03 M/mm3 (4.6-6.2); White Blood Count 8.3 K/mm3 (4.4-11.0)
--- NOTE | 2019-04-20 14:24 | ED.VIS.GEN ---
History of Present Illness Chief Complaint: Shortness of Breath Detail of Chief Complaint: Shortness of breath yesterday chest pain today Informant: Patient, Family Onset: Today - Left-sided chest pain that awoke patient between 0100 and 0200, Yesterday - Shortness of breath while walking yesterday afternoon Context: Sudden Onset Timing: Continuous Quality: Pain Location: Left pectoral region without radiation Current Severity: Mild Maximum Severity: Severe Worsened by: Unknown Relieved by: Improved after nitro Associated Symptoms: Patient presents with dyspnea on exertion, chest pain at rest that improved Narrative: Patient is sick 8-year-old male with multiple medical problems who presents with dyspnea on exertion that occurred yesterday afternoon while walking. He has history of flash pulmonary edema. He denied increased orthopnea. He states the swelling of his legs is new. This morning he was wake him sleep with chest discomfort located left side describes pain with shortness of breath. Squad was called this morning. He received aspirin and 2 nitro sprays. He states the pain is minimal presently. He denies increased orthopnea. He denies PND. He states he was awakened because of pain not shortness of breath. He does report swelling of his lower extremities. Family member states he appears pale. He denies black or maroon stool. He is on 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 and Plavix for atrial fibrillation and stents. There is no history of VTE. There is no risk factors for VTE. Prior similar symptoms: Yes - Coronary artery disease/angina Recent Illness/Hospitalization: No - Past Medical History (1) Anemia of chronic renal failure, stage 3 (moderate) Status: Chronic (2) Cardiomyopathy, ischemic Status: Chronic (3) Chronic systolic CHF (congestive heart failure) Status: Chronic (4) Essential hypertension Status: Chronic (5) History of coronary artery stent placement Status: Chronic Comment: SARA-RCA 06/15/2011, SARA-OM1 06/30/2011, SARA-LAD 08/20/2014, SARA-Prox- RCA 06/08/2016 (6) Hyperkalemia Status: Chronic (7) Hyperlipidemia Status: Chronic (8) Left atrial thrombus Status: Chronic (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 (10) Nonsustained ventricular tachycardia Status: Chronic (11) Paroxysmal atrial fibrillation Status: Chronic (12) Presence of implantable cardioverter-defibrillator (ICD) Status: Chronic (13) STEMI (ST elevation myocardial infarction) Status: Chronic (14) Secondary pulmonary arterial hypertension Status: Chronic Past Medical History - Allergies and Home Meds Allergies/Adverse Reactions: Allergies diltiazem Allergy (Verified 04/02/19 19:39) LOWER LEG SWELLING tamsulosin [From Flomax] Allergy (Verified 04/02/19 19:39) Shortness of breath/muscle weakness atorvastatin calcium [From Lipitor] Adverse Reaction (Verified 04/02/19 19:39) MUSCLE WEAKNESS Primary Care Physician: Jennifer Spicer DO [Primary Care Provider] - Prior records reviewed: Yes Surgical History: - - s/p stents, AICD. Lives: With Family Smoking Status: Former smoker Alcohol: None Drugs: None - Family History Maternal Family History: Family History (Last Reviewed 03/01/19 @ 13:52 by Yaritza Braden) Brother Sudden cardiac Family History: Reports: Hypertension Paternal Family History: Family History (Last Reviewed 03/01/19 @ 13:52 by Yaritza Braden) Brother Sudden cardiac Family History: Reports: Unknown Sibling Family History: Family History (Last Reviewed 03/01/19 @ 13:52 by Yaritza Braden) Brother Sudden cardiac Family History: Reports: Heart Disease Review of Systems General: Denies: Chills, Fever, Malaise, Subjective, Sweats, Weight loss, - Eyes: Denies: Visual changes - bilaterally, Diplopia ENT: Denies: Bilateral ear pain, Rhinorrhea, Sore throat Cardiovascular: Reports: Chest pain. Denies: Palpitations, Heart racing, -, - Respiratory: Reports: Dyspnea, Dyspnea on exertion, Orthopnea. Denies: Cough, Sputum, Paroxysmal nocturnal dyspnea Gastrointestinal: Denies: Abdominal pain, Nausea, Vomiting, Diarrhea, Melena, Hematochezia Genitourinary: Denies: Dysuria, Hematuria, Frequency Musculoskeletal: Reports: Swelling. Denies: Myalgias, Arthralgias, Neck pain, Back pain, Extremity Pain, -, - Skin: Denies: Rash, Wounds Neurological: Denies: Headache, Weakness, Numbness Hematologic: Denies: Easy bruising, Easy bleeding Allergy: Denies: Uticaria, Swelling of the mouth Physical Exam Vital Signs/Narrative: Vital Signs Temp Pulse Resp BP Pulse Ox 04/20/19 13:57 98 04/20/19 13:36 98.1 F 109 H 19 H 190/122 H 96 Inital Vital Signs reviewed: Yes General: Well nourished, Well developed, Obese, Unkempt, No Acute Distress Head: Normocephalic, Atraumatic Eyes: Perrl, EOMI. Negative for: Pale conjunctiva, Scleral icterus ENT: Moist mucous membranes, No rhinorrhea, TM's clear Neck: Supple, Nontender, No lymphadenopathy, No JVD Cardiovascular: No murmurs, Irregular, Tachycardia Respiratory: Rales. Negative for: No distress, CTA bilaterally Abdomen: Soft, Nontender, Nondistended, Normal bowel sounds Rectal: Deferred Back: Nontender, Normal Inspection Extremities: Nontender, Tenderness Neurological: Alert, Oriented x3, Cranial nerves II-XII grossly intact, Normal Strength, Normal Sensation Psychological: Normal affect, Normal Mood Diagnostic/Tx/Re-eval Chest X-Ray - ED: 1 View, Read by ED Physician, Cardiomegaly, CHF Impressions Chest X-Ray 04/20/19 13:47 IMPRESSION: Mild cardiomegaly and CHF. Electronically Signed: Domingo Noyola, at 14:20 EST , Service support , 04/20/19 13:47 Chest 1 View (Portable) [RAD] Stat Laboratory Results 04/20/19 04/20/19 04/20/19 14:02 14:02 14:18 WBC 8.3 RBC 5.03 Hgb 13.8 Hct 44.6 MCV 88.7 MCH 27.4 MCHC 30.9 L RDW Std Deviation 50.1 H RDW Coeff of [place] 15.4 H Plt Count 249 MPV 9.8 Immature Gran % (Auto) 0.800 Neut % (Auto) 78.5 H Lymph % (Auto) 8.3 L Bennett % (Auto) 9.6 Eos % (Auto) 2.2 Baso % (Auto) 0.6 Absolute Neuts (auto) 6.5 Absolute Lymphs (auto) 0.69 L Nucleated RBC % 0 Sodium Cancelled 139 Potassium Cancelled 3.3 L Chloride Cancelled 103 Carbon Dioxide Cancelled 34.0 H Anion Gap Cancelled 2 L BUN Cancelled 11 Creatinine Cancelled 1.70 H Estim Creat Clear Calc Cancelled 42.74 Est GFR (MDRD) Af Amer Cancelled 52 L Est GFR (MDRD) Non-Af Cancelled 43 L BUN/Creatinine Ratio Cancelled 6.5 L Glucose Cancelled 78 Calcium Cancelled 8.7 Troponin I Cancelled 0.020 Chest x-ray read by radiologist confirms findings document by me of congestive heart failure and CHF. Since patient had improvement/resolution with nitroglycerin will contact hospitalist for serial enzymes and consult with wholesale and retail merchant determine if patient needs stress test versus cardiac catheterization. - Medical Decision Making Differential diagnosis includes pneumonia, pneumothorax, exacerbation of chronic congestive heart failure, cardiac ischemia. EKG, chest x-ray and appropriate blood work was ordered. Since he received aspirin in route he was not given any additional aspirin in the emergency room. Since he was still having pain nitroglycerin sublingual was ordered. ED Disposition - Plan for ED Patient: Disposition: Acute Care Hospital [facility] Diagnosis: Chest pain, Acute exacerbation of congestive heart failure, Stage 3 chronic kidney disease, Hyperlipidemia, Essential hypertension Referrals: Jennifer Spicer DO [Primary Care Provider] -
[2019-04-20 14:47] LABS: Anion Gap 2 (5-15); BUN 11 mg/dL (7-18); BUN/Creat Ratio 6.5 RATIO (10-20); Calcium,Total 8.7 mg/dL (8.5-10.1); Chloride 103 mmol/L (98-107); EST Glomerular Filtration Rate 43 mL/min (>60); Est Glom Filt Rate - Afr Amer 52 mL/min (>60); Estimated Creatinine Clearance 42.74 ml/min; Glucose 78 mg/dL (74-106); Potassium 3.3 mmol/L (3.5-5.1); Sodium Level 139 mmol/L (136-145)
--- NOTE | 2019-04-20 14:58 | HP.PCM_ITS ---
History of Present Illness Date of Admission: 04/20/19 Chief Complaint: shortness of breath, chest pain The patient is a 68 year old M with a very extensive past medical history as listed. He was admitted through the ED on 04/20/2019 with a complaint of chest pain and shortness of breath that been going on for a few days. Shortness of breath was present at rest he had associated orthopnea and PND. He denied any lower extremity swelling and denied any palpitations but complained of chest pain which was left-sided and said it was sharp like chest pain with no aggravating or relieving factors. Chest. Did not radiate to his neck but did radiate to his arm. Symptoms were persistent so he decided to come into the ED today. He denied any associated fever chills or cough and denied any abdominal pain, diarrhea or vomiting. Review systems is otherwise negative. In the ED, vitals at time of review were blood pressure of 161/107 with respiratory rate of 20 and pulse rate of 95. He was saturating at 88% on 2 L of oxygen. Chemistry was remarkable for potassium of 3.3 creatinine 1.7. Initial troponin was 0.020. BNP was pending. CBC was essentially unremarkable. Chest x-ray showed evidence of mild cardiomegaly and CHF. EKG showed no acute ST changes. He has been admitted to be managed for acute on chronic heart failure with reduced ejection fraction and chest pain rule out ACS. [] Past Medical History Past Medical History (Chronic Problems): Chronic Problems (Last Reviewed 03/01/19 @ 13:52 by Yaritza Braden) Acute exacerbation of congestive heart failure (Chronic) Stage 3 chronic kidney disease (Chronic) Essential hypertension (Chronic) care home current use of 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) Nonsustained ventricular tachycardia (Chronic) Chronic systolic CHF (congestive heart failure) (Chronic) Presence of implantable cardioverter-defibrillator (ICD) (Chronic) 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) History of coronary artery stent placement (Chronic 06/08/16) SARA-RCA 06/15/2011, SARA-OM1 06/30/2011, SARA-LAD 08/20/2014, SARA-Prox- RCA 06/08/2016 Atherosclerosis of coronary artery of [place] heart without angina pectoris (Chronic) SARA-RCA 06/15/2011, SARA-OM1 06/30/2011, SARA-LAD 08/20/2014, SARA-Prox- RCA 06/08/2016 Paroxysmal atrial fibrillation (Chronic) Hyperlipidemia (Chronic) Type II diabetes mellitus (Chronic) Hyperkalemia (Chronic) Chronic renal failure, stage 3 (moderate) (Chronic) STEMI (ST elevation myocardial infarction) (Chronic) Anemia of chronic renal failure, stage 3 (moderate) (Chronic) Cardiomyopathy, ischemic (Chronic) Medical History: Medical History (Last Reviewed 03/01/19 @ 13:52 by Yaritza Braden) Essential hypertension (Chronic) I10 care home current use of 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) Z79.01 Nonsustained ventricular tachycardia (Chronic) I47.2 Chronic systolic CHF (congestive heart failure) (Chronic) I50.22 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) I27.21 Atherosclerosis of coronary artery of [place] heart without angina pectoris (Chronic) I25.10 SARA-RCA 06/15/2011, SARA-OM1 06/30/2011, SARA-LAD 08/20/2014, SARA-Prox- RCA 06/08/2016 Paroxysmal atrial fibrillation (Chronic) I48.0 Hyperlipidemia (Chronic) E78.5 Type II diabetes mellitus (Chronic) E11.9 Hyperkalemia (Chronic) E87.5 Chronic renal failure, stage 3 (moderate) (Chronic) N18.3 STEMI (ST elevation myocardial infarction) (Chronic) Anemia of chronic renal failure, stage 3 (moderate) (Chronic) N18.3, D63.1 Cardiomyopathy, ischemic (Chronic) I25.5 DDD (degenerative disc disease) Obesity (BMI 30.0-34.9) E66.9 Old myocardial infarction I25.2 inferior lateral and Anterior Apical Cardiogenic shock Onset Date: 06/08/16 R57.0 Esophagitis determined by endoscopy (Resolved) Onset Date: 05/06/17 K20.9 Hypertensive emergency I16.1 Systolic CHF, acute on chronic (Resolved) I50.23 Allergies diltiazem Allergy (Verified 04/02/19 19:39) LOWER LEG SWELLING tamsulosin [From Flomax] Allergy (Verified 04/02/19 19:39) Shortness of breath/muscle weakness atorvastatin calcium [From Lipitor] Adverse Reaction (Verified 04/02/19 19:39) MUSCLE WEAKNESS Home Medications: Ambulatory Orders Medication Instructions Recorded Albuterol Sulfate [Ventolin Hfa] 2 puff INHALATION Q4H PRN 03/13/19 Amiodarone HCl [Cordarone] 200 mg PO DAILY 03/13/19 Apixaban [Eliquis] 2.5 mg PO BID 03/13/19 Aspirin [Aspirin, Baby] 81 mg PO DAILY@0800 03/13/19 Carvedilol [Coreg] 25 mg PO BID 03/13/19 Clopidogrel Bisulfate [Plavix] 75 mg PO DAILY 03/13/19 Furosemide [Lasix] 80 mg PO DAILY 03/13/19 Isosorbide Mononitrate [Isosorbide 120 mg PO BID 03/13/19 Mononitrate ER] Loratadine 10 mg PO DAILY 03/13/19 Losartan Potassium [Cozaar] 100 mg PO DAILY 03/13/19 Pantoprazole Sodium [Protonix] 40 mg PO BID 03/13/19 Pravastatin Sodium 40 mg PO QHS 03/13/19 Ranolazine [Ranolazine ER] 500 mg PO BID 03/13/19 hydrALAZINE [Apresoline] 100 mg PO TID 03/13/19 Esomeprazole Mag Trihydrate 40 mg PO BID #20 cap 03/15/19 [Nexium] Insulin NPH Human Isophane 15 unit SQ BID 04/20/19 [Novolin N] Surgical History: Surgical History (Last Reviewed 03/01/19 @ 13:52 by Yaritza Braden) Presence of implantable cardioverter-defibrillator (ICD) (Chronic) Z95.810 History of coronary artery stent placement (Chronic) Onset Date: 06/08/16 Z95.5 SARA-RCA 06/15/2011, SARA-OM1 06/30/2011, SARA-LAD 08/20/2014, SARA-Prox- RCA 06/08/2016 History of cardioversion Onset Date: 04/10/16 Z98.890 01/14/15 (unsuccessful), 04/10/2016 H/O elbow surgery Z98.890 H/O left wrist surgery Z98.890 S/P right inguinal hernia repair Z98.890, Z87.19 Status post knee surgery Z98.890 Surgical History: - - s/p stents, AICD. Psychiatric History: No pertinent psych hx Lives: With Family Smoking Status: Former smoker Alcohol: None Drugs: None - *Family History Maternal Family History: Family History (Last Reviewed 03/01/19 @ 13:52 by Yaritza Braden) Brother Sudden cardiac History Items: Hypertension Paternal Family History: Family History (Last Reviewed 03/01/19 @ 13:52 by Yaritza Braden) Brother Sudden cardiac History Items: Unknown Sibling Family History: Family History (Last Reviewed 03/01/19 @ 13:52 by Yaritza Braden) Brother Sudden cardiac History Items: Heart Disease Review of Systems Constitutional: Reports: Malaise, Weakness, Fatigue. Denies: Chills, Fever, Weight Change Eyes: Denies: Blurred vision HEENT: Denies: Head Aches, Sinus Congestion, Sinus Drainage Cardiovascular: Reports: Chest Pain, Orthopnea, Paroxysmal Noc. Dyspnea. Denies: Chest Pressure, Chest Tightness, Edema, Heaviness, Light Headedness, Palpitations Respiratory: Reports: Shortness of Breath, Shortness of breath at rest. Denies: Cough, Sputum production Gastrointestinal: Denies: Abdominal Pain, Nausea, Vomiting Genitourinary: Denies: Dysuria Musculoskeletal: Denies: Joint Pain, Joint Tenderness Skin: Denies: Rash, Wounds Neurological: Denies: Numbness, Tingling, Focal weakness Psychiatric: Denies: Anxiety, Depression, Homicidal Ideations, Suicidal Ideations Hematologic/ Lymphatic: Denies: Easy Bruising, Easy Bleeding VTE Information - Inpt Only VTE Present on Admission: No VTE Pharm Prophylaxis ordered?: Yes Patient Problems: Active and Suspected Problems (Last Reviewed 03/01/19 @ 13:52 by Yaritza Braden) Chest pain (Acute) - Physical Exam Vitals/I&O's: Vital Signs Temp Pulse Resp BP Pulse Ox 98.1 F 109 H 19 H 190/122 H 98 04/20/19 13:36 04/20/19 13:36 04/20/19 13:36 04/20/19 13:36 04/20/19 13:57 Oxygen Flow Rate (L/min) 2 Oxygen Delivery Method Nasal Cannula Weight: 207 lb 7.28 oz Body Mass Index (BMI) 30.6 Finger Stick Blood Glucose 105 General: Alert, Oriented x3, Cooperative, No apparent distress HEENT: Atraumatic, PERRLA, EOMI, Normocephalic Oral: Dry Mucosa Neck: Supple, No JVD, Negative Carotid Bruits Lungs: - - decreased breath sounds bibasally, mild bibasal fine crackles. On 2L of oxygen by nasal canula Cardiovascular: Normal S1, Normal S2, Irregular Rate - and rhythm, Afib Abdomen: Bowel Sounds Present, Soft, Non Tender, Non-Distended, No Hepato- splenomegaly Extremities: No clubbing, No cyanosis, Edema - mild 1+ bipedal pitting edema Skin: No rashes, No breakdown Musculoskeletal: No Tenderness to Palpation of Joints or Extremities Lymphatic: No Cervical, Supraclavicular, or Inguinal Adenopathy Neurological: Cranial nerves II-XII grossly intact, Neuro grossly intact, Motor Exam 5/5 strength throughout Psych/Mental Status: Normal Affect, Appropriate, Alert and oriented to time, place, person, mood and affect Laboratory Results 04/20/19 14:02: WBC 8.3, RBC 5.03, Hgb 13.8, Hct 44.6, MCV 88.7, MCH 27.4, MCHC 30.9 L, RDW Std Deviation 50.1 H, RDW Coeff of [place] 15.4 H, Plt Count 249, MPV 9.8, Immature Gran % (Auto) 0.800, Neut % (Auto) 78.5 H, Lymph % (Auto) 8.3 L, [place] % (Auto) 9.6, Eos % (Auto) 2.2, Baso % (Auto) 0.6, Absolute Neuts (auto) 6.5, Absolute Lymphs (auto) 0.69 L, Nucleated RBC % 0 04/20/19 14:02: Sodium Cancelled, Potassium Cancelled, Chloride Cancelled, Carbon Dioxide Cancelled, Anion Gap Cancelled, BUN Cancelled, Creatinine Cancelled, Estim Creat Clear Calc Cancelled, Est GFR (MDRD) Af Amer Cancelled, Est GFR (MDRD) Non-Af Cancelled, BUN/Creatinine Ratio Cancelled, Glucose Cancelled, Calcium Cancelled, Troponin I Cancelled 04/20/19 14:18: Sodium 139, Potassium 3.3 L, Chloride 103, Carbon Dioxide 34.0 H , Anion Gap 2 L, BUN 11, Creatinine 1.70 H, Estim Creat Clear Calc 42.74, Est GFR (MDRD) Af Amer 52 L, Est GFR (MDRD) Non-Af 43 L, BUN/Creatinine Ratio 6.5 L, Glucose 78, Calcium 8.7, Troponin I 0.020 Diagnostic Data Chest X-Ray 04/20/19 13:47 IMPRESSION: Mild cardiomegaly and CHF. Electronically Signed: Domingo Noyola, at 14:20 EST , Service support , Current Medications Nitroglycerin (Nitrostat) 0.4 mg SUBLINGUAL Q5M PRN PRN Reason: Chest pain Assessment/Plan All Active Problems (Last Reviewed 03/01/19 @ 13:52 by Yaritza Braden) Chest pain (Acute) Abdominal pain (Resolved) Acute pulmonary edema (Resolved) Acute respiratory failure (Resolved) Atrial fibrillation with RVR (Resolved) Chest pain (Resolved) Chest pain (Resolved) Elevated troponin (Resolved) Esophagitis determined by endoscopy (Resolved 05/06/17) Metabolic acidosis (Resolved) Shortness of breath (Resolved) Systolic CHF, acute on chronic (Resolved) 68-year-old admitted with a complaint of shortness of breath and chest pain. 1. Chronic heart failure with reduced ejection fraction * admitted with shortness of breath, orthopnea and PND * BNP is pending * I independently reviewed chest x-ray and there is evidence of cardiomegaly and vascular congestion indicating of CHF. This correlates with radiologist reading of mild degree of CHF. * EKG showed no acute ST changes. * admit to PCU with telemetry. * Diuresed with IV Lasix 40 mg twice daily. Strict intake and output chart. Fluid restrictions thousand 500 cc daily. * 2D echo from December 05, 2018 showed moderately dilated left ventricle with EF of 45% in stage II diastolic dysfunction with severe hypokinesis of the left ventricle. Right ventricle mildly dilated with ICD or pacer leads in the right ventricle. RVSP was 45 mmHg. * Troponin was 0.02. We will cycle troponins. * 2. Chest pain rule out ACS * initial troponin is 0.02; EKG showed no acute ST changes * cycle troponins * SL nitroglycerin prn; PO aspirin 81mg daily * if troponins are negative, for stress test tomorrow. * 3. Hypertension: Poorly controlled * BP on admission was in the 190s systolic. At time of review, BP was in the 160s systolic. Claims adherence to his medication. * On hydralazine 100 mg 3 times daily and losartan 100 mg daily. Also on Imdur. * IV hydralazine PRN. Monitor blood pressure closely. * 4. Hypokalemia: Potassium is 0.1. Will replace and monitor. 5. CKD stage III: Creatinine is 1.7 with a baseline of around 1.8. Will monitor. 5. CAD status post stents: Has had about 5 stents. Also has an ICD in place. Aspirin, statin and carvedilol as well as Plavix. 6. Hyperlipidemia: On statin. 7. Type 2 diabetes mellitus: With nephropathy. On NPH insulin 15 units twice daily. Insulin sliding scale. Accu-Cheks AC at bedtime. 8. A. fib: Currently rate controlled. On amiodarone and carvedilol. On E liquis. DVT Prophylaxis: On Eliquis. CODE STATUS: Full code * Patient and family counseled extensively about different types of CODE STATUS including full code, DNR CCA and DNR CCA. Patient elects to be full code. * Total [id number] time 16 minutes. Code Visit Inpatient E&M: 82570 Init Hosp L3 Procedures: 05143 Advncd Care Plan 30 Min
--- NOTE | 2019-04-20 15:35 | EKG12_ITS ---
Test Reason : CP ADMISSION Blood Pressure : / mmHG Vent. Rate : 094 BPM Atrial Rate : 102 BPM P-R Int : 000 ms QRS Dur : 108 ms QT Int : 428 ms P-R-T Axes : 000 -39 064 degrees QTc Int : 535 ms Atrial fibrillation Left axis deviation Inferior infarct , age undetermined Anterolateral infarct , age undetermined Prolonged QT Abnormal ECG Confirmed by MEL METZ, REINA ([id number]), senior editor MELLISSA HOPKINS ([id number]) on 04/26/2019 11:14:19 AM Referred By: Jennifer Spicer Confirmed By:REINA LEAL MD
[2019-04-20 15:54] LABS: BNP,B-Type NATRIURETIC PEPTIDE 173.8 pg/mL (0-100)
[2019-04-20 16:21] LABS: Bedside Glucose 95 mg/dL (70-110)
[2019-04-20] MEDS: Furosemide 40 MG/4 ML Vial IV (17:08)
[2019-04-20] MEDS: Carvedilol 25 MG Tablet PO (22:58)
[2019-04-20] MEDS: hydrALAZINE 50 MG Tablet 100 MG PO (22:58)
[2019-04-20] MEDS: Pravastatin 40 MG Tablet PO (22:59)
[2019-04-20] MEDS: APIXABAN 2.5 MG TABLET PO (22:59)
[2019-04-20] MEDS: Pantoprazole Sodium 40 MG Tablet PO (22:59)
[2019-04-20] MEDS: Ranolazine 500 MG Tablet PO (22:59)
[2019-04-20] MEDS: Insulin Lispro 100 UNIT/ML INSULN.PEN SC (23:04)
[2019-04-21] VITALS (11 sets, daily range): BP systolic 124–150; BP diastolic 70–88; PULSE 74–102; RESP 14–16; TEMP 36.5–36.9; O2SAT 90–96
[2019-04-21 00:41] LABS: Bedside Glucose 195 mg/dL (70-110)
--- NOTE | 2019-04-21 05:55 | EKG12_ITS ---
Test Reason : AM EKG Blood Pressure : / mmHG Vent. Rate : 082 BPM Atrial Rate : 250 BPM P-R Int : 000 ms QRS Dur : 100 ms QT Int : 418 ms P-R-T Axes : 000 -36 -23 degrees QTc Int : 488 ms Atrial flutter with variable A-V block Left axis deviation Inferior infarct , age undetermined , cannot be excluded Anterolateral infarct , age undetermined Abnormal ECG Confirmed by MEL METZ, REINA ([id number]), proposal editor MELLISSA HOPKINS ([id number]) on 04/26/2019 10:16:35 AM Referred By: Jennifer Spicer Confirmed By:REINA LEAL MD
[2019-04-21 05:56] LABS: Anion Gap 5 (5-15); BUN 14 mg/dL (7-18); BUN/Creat Ratio 8.2 RATIO (10-20); Calcium,Total 8.2 mg/dL (8.5-10.1); Chloride 101 mmol/L (98-107); Creatinine, Serum 1.71 mg/dL (0.70-1.30); EST Glomerular Filtration Rate 43 mL/min (>60); Est Glom Filt Rate - Afr Amer 52 mL/min (>60); Estimated Creatinine Clearance 42.49 ml/min; Glucose 199 mg/dL (74-106); Potassium 3.7 mmol/L (3.5-5.1); Sodium Level 137 mmol/L (136-145)
[2019-04-21 05:57] LABS: Absolute Lymphocyte Count 0.91 X10^3/uL (0.83-4.51); Absolute Neutrophil Count 5.7 X10^3/uL (2.0-7.7); Basophil# 0.04 X10^3/uL; Basophil% 0.5 % (0-1); Eosinophil# 0.16 X10^3/uL; Eosinophils% 2.1 % (0-5); Hematocrit 42.5 % (40-54); Hemoglobin 13.4 g/dL (13.0-16.5); Lymphocyte # 0.91 X10^3/ul (4.0); Lymphocyte % 11.9 % (19-41); Mean Corp Hgb Conc 31.5 g/dL (32-36); Mean Corpuscular Volume 88.7 fL (80-94); Mean Platelet Vol. 9.4 fl (6.2-12.0); Monocyte# 0.73 X10^3/uL; Monocyte% 9.6 % (0-10); NRBC Flagged by Analyzer 0 % (0-5); Neutrophil # 5.73 X10^3/uL (2.7-7.7); Neutrophil % 75.1 % (47-70); Platelet Count 208 K/mm3 (150-450); RBC Distribution Width SD 49.1 fl (35.1-43.9); Red Blood Count 4.79 M/mm3 (4.6-6.2); White Blood Count 7.6 K/mm3 (4.4-11.0)
[2019-04-21] MEDS: hydrALAZINE 50 MG Tablet 100 MG PO ×2 (06:18→15:04)
[2019-04-21] MEDS: Amiodarone 200 MG Tablet PO (06:19)
[2019-04-21] MEDS: Aspirin 81 MG TAB.CHEW PO (06:19)
[2019-04-21] MEDS: Losartan Potassium 100 MG Tablet PO (06:19)
[2019-04-21 06:40] LABS: Bedside Glucose 225 mg/dL (70-110)
--- NOTE | 2019-04-21 10:29 | CASEMGMT ---
LW/POA forms scanned into summary tab of [facility] listed as medical POA. TREMAINE Gutierrez
--- NOTE | 2019-04-21 11:22 | STRESSREP_ITS ---
Stress Test Report Date: 04-21-2019 Procedure: Pharmacologic stress nuclear imaging study Indications: Pain; shortness of breath/dyspnea; CAD; PCI; CHF; cardiac dysrhythmia; ICD Consent: Per the patient Procedure: The patient underwent pharmacologic (Regadenoson) evaluation with a peak heart rate of 131 beats per minute (85 %predicted maximal heart rate) and a peak blood pressure of 154/88 mmHg. The baseline ECG demonstrated atrial fibrillation; anterior lateral CO of indeterminate age cannot be excluded; inferior CO of indeterminate age cannot be excluded. The peak pharmacologic ECG demonstrated no obvious ECG changes. There were no cardiac dysrhythmias pretest, during pharmacologic infusion, or recovery. The patient noted dull left-sided chest discomfort preprocedure with no report of any significant change during infusion or recovery. The examination was discontinued secondary to completion of protocol. Impression: 1. Pharmacologic (Regadenoson) evaluation 2. Peak pharmacologic ECG with no obvious ECG changes. 3. There were no cardiac dysrhythmias pretest, during pharmacologic infusion, or recovery. 4. Nuclear images pending Myocardial perfusion imaging study: Technique: The patient was injected with millicuries of technetium 99m Cardiolite and subsequently rest SPECT Cardiolite nuclear imaging was obtained in the h orizontal long, vertical long, and short axis views. The patient underwent pharmacologic (Regadenoson) evaluation with a peak heart rate of 131 beats per minute (85 % percent predicted maximal heart rate) and a peak blood pressure of 154/88 mmHg. The patient was injected with millicuries of technetium 99m Cardiolite and subsequently stress SPECT Cardiolite nuclear imaging was obtained in the horizontal long, vertical long, and short axis views. A gated Cardiolite study at peak stress was obtained. Interpretation: Rest and stress SPECT Cardiolite nuclear imaging status post realignment, norm alization, and attenuation correction demonstrate the appearance of diminished absence of tracer uptake in portions of the distal anterior, anteroseptal, anterolateral, anteroapical, and lateral apical segments without significant change between rest and stress. There is diminished end systolic thickening and brightening. The gated Cardiolite study demonstrates diminished myocardial thickening and inward wall motion. The reported LVEF is 38 %. Impression: 1. Rest and stress SPECT Cardiolite nuclear imaging demonstrate myocardial perfusion changes appearing compatible with a previous area of myocardial injury/infarction involving portions of the distal anterior, anteroseptal, anterolateral, anteroapical, and lateral apical segments with no myocardial perfusion changes considered diagnostic for associated stress-induced myocardial ischemia. 2. The gated Cardiolite study reports an LVEF of 38 %. This note was generated with [email or web address] software. It may contain incorrect words, spelling, and punctuation that were not noted in checking the note before signing.
[2019-04-21] MEDS: Clopidogrel Bisulfate 75 MG Tablet PO (11:29)
[2019-04-21] MEDS: Ranolazine 500 MG Tablet PO (11:29)
[2019-04-21] MEDS: Pantoprazole Sodium 40 MG Tablet PO (11:29)
[2019-04-21] MEDS: Loratadine 10 MG Tablet PO (11:29)
[2019-04-21] MEDS: Carvedilol 25 MG Tablet PO (11:30)
[2019-04-21] MEDS: Furosemide 40 MG/4 ML Vial IV (11:30)
[2019-04-21] MEDS: APIXABAN 2.5 MG TABLET PO (11:33)
[2019-04-21] MEDS: Insulin Lispro 100 UNIT/ML INSULN.PEN SC (11:38)
--- NOTE | 2019-04-21 11:44 | DCINST_ITS ---
- Discharge Diagnoses Current Active Problems: Current Active and Chronic Problems (Last Reviewed 03/01/19 @ 13:52 by Yaritza Braden) Chest pain (Acute) Acute exacerbation of congestive heart failure (Chronic) Stage 3 chronic kidney disease (Chronic) Essential hypertension (Chronic) Hyperlipidemia (Chronic) You will use the following diet at home:: Cardiac, Fluid restricted (specify 2000 mls, 1500 mls) - 1500 Discharge Activity: Return to Normal Activity Call your doctor if you observe: Shortness of breath, Dizziness, Fainting spells, Chest pain Allergies/Adverse Reactions: Allergies diltiazem Allergy (Verified 04/02/19 19:39) LOWER LEG SWELLING tamsulosin [From Flomax] Allergy (Verified 04/02/19 19:39) Shortness of breath/muscle weakness atorvastatin calcium [From Lipitor] Adverse Reaction (Verified 04/02/19 19:39) MUSCLE WEAKNESS Medications to take at Discharge Albuterol Sulfate [Ventolin Hfa] 2 puff INHALATION Q4H PRN 03/13/19 Amiodarone HCl [Cordarone] 200 mg PO DAILY 03/13/19 Apixaban [Eliquis] 2.5 mg PO BID 03/13/19 Aspirin [Aspirin, Baby] 81 mg PO DAILY@0800 03/13/19 Carvedilol [Coreg] 25 mg PO BID 03/13/19 Clopidogrel Bisulfate [Plavix] 75 mg PO DAILY 03/13/19 Furosemide [Lasix] 80 mg PO DAILY 03/13/19 Isosorbide Mononitrate [Isosorbide Mononitrate ER] 120 mg PO BID 03/13/19 Loratadine 10 mg PO DAILY 03/13/19 Losartan Potassium [Cozaar] 100 mg PO DAILY 03/13/19 Pantoprazole Sodium [Protonix] 40 mg PO BID 03/13/19 Pravastatin Sodium 40 mg PO QHS 03/13/19 Ranolazine [Ranolazine ER] 500 mg PO BID 03/13/19 hydrALAZINE [Apresoline] 100 mg PO TID 03/13/19 Esomeprazole Mag Trihydrate [Nexium] 40 mg PO BID #20 cap 03/15/19 Insulin NPH Human Isophane [Novolin N] 15 unit SQ BID 04/20/19 Primary Care Physician: Jennifer Spicer DO [Primary Care Provider] - Please follow up with your Primary Care Physician in: 1 Week Test Results: Test results from this visit will be discussed in further detail at your follow- up appointment, if applicable. Please Follow Up With: Marco Antonio Butler MD When: Call to follow up with DORMITORY SUPERVISOR/PA in 1 week Please Follow Up With: Nii Go, DO - [phone] When: Call to schedule with pulmonary medicine to establish for further testing Proposed Discharge Date: 04/21/19
[2019-04-21 11:50] LABS: Bedside Glucose 223 mg/dL (70-110)
--- NOTE | 2019-04-21 13:07 | PHA.DC.MR ---
Pharmacy Service has performed discharge medication reconciliation for this patient. Home Medications Albuterol Sulfate [Ventolin Hfa] 2 puff INHALATION Q4H PRN 03/13/19 Amiodarone HCl [Cordarone] 200 mg PO DAILY 03/13/19 Apixaban [Eliquis] 2.5 mg PO BID 03/13/19 Aspirin [Aspirin, Baby] 81 mg PO DAILY@0800 03/13/19 Carvedilol [Coreg] 25 mg PO BID 03/13/19 Clopidogrel Bisulfate [Plavix] 75 mg PO DAILY 03/13/19 Furosemide [Lasix] 80 mg PO DAILY 03/13/19 Isosorbide Mononitrate [Isosorbide Mononitrate ER] 120 mg PO BID 03/13/19 Loratadine 10 mg PO DAILY 03/13/19 Losartan Potassium [Cozaar] 100 mg PO DAILY 03/13/19 Pantoprazole Sodium [Protonix] 40 mg PO BID 03/13/19 Pravastatin Sodium 40 mg PO QHS 03/13/19 Ranolazine [Ranolazine ER] 500 mg PO BID 03/13/19 hydrALAZINE [Apresoline] 100 mg PO TID 03/13/19 Esomeprazole Mag Trihydrate [Nexium] 40 mg PO BID #20 cap 03/15/19 Insulin NPH Human Isophane [Novolin N] 15 unit SQ BID 04/20/19 The patient's discharge medication list was reviewed for discrepancies and discrepancies were resolved.
--- NOTE | 2019-04-21 16:23 | DS.PCM_ITS ---
Discharge Date and Diagnosis Date of Admission: 04/20/19 Date of Discharge: 04/21/19 - Primary Discharge Diagnosis Active and Suspected Problems (Last Reviewed 03/01/19 @ 13:52 by Yaritza Braden) 1. Musculoskeletal chest pain, ACS ruled out 2. Mild exacerbation of chronic heart failure with reduced ejection fraction 3. Chronic cough, history of extensive tobacco use-suspect undiagnosed COPD. 4. Hypertension 5. Chronic kidney disease stage III 6. CAD with history of stents 7. Type 2 diabetes mellitus 8. Atrial fibrillation - Secondary Discharge Diagnosis Chronic Problems (Last Reviewed 03/01/19 @ 13:52 by Yaritza Braden) Acute exacerbation of congestive heart failure (Chronic) Stage 3 chronic kidney disease (Chronic) Essential hypertension (Chronic) MCC current use of 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) Nonsustained ventricular tachycardia (Chronic) Chronic systolic CHF (congestive heart failure) (Chronic) Presence of implantable cardioverter-defibrillator (ICD) (Chronic) 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) History of coronary artery stent placement (Chronic 06/08/16) SARA-RCA 06/15/2011, SARA-OM1 06/30/2011, SARA-LAD 08/20/2014, SARA-Prox- RCA 06/08/2016 Atherosclerosis of coronary artery of [place] heart without angina pectoris (Chronic) SARA-RCA 06/15/2011, SARA-OM1 06/30/2011, SARA-LAD 08/20/2014, SAAR-Prox- RCA 06/08/2016 Paroxysmal atrial fibrillation (Chronic) Hyperlipidemia (Chronic) Type II diabetes mellitus (Chronic) Hyperkalemia (Chronic) Chronic renal failure, stage 3 (moderate) (Chronic) STEMI (ST elevation myocardial infarction) (Chronic) Anemia of chronic renal failure, stage 3 (moderate) (Chronic) Cardiomyopathy, ischemic (Chronic) Hospital Course and Treatment Imaging Results: Diagnostic Data Chest X-Ray 04/20/19 13:47 IMPRESSION: Mild cardiomegaly and CHF. Electronically Signed: Domingo Noyola, at 14:20 EST , Service support , Operations: None Procedures: Stress test Summary of Care Provided: The patient is a 68 year old M admitted 04/20/2019 due to shortness of breath and chest pain. 1. Musculoskeletal chest pain, ACS ruled out-troponin negative. EKG without ST-T changes. Patient underwent nuclear stress test which was negative for ischemia. Suspect pain musculoskeletal related to ongoing cough. Follow-up with primary care provider in 1 week. Follow-up with cardiology as scheduled. Refer to pulmonary medicine for evaluation regarding chronic cough. 2. Mild exacerbation of chronic heart failure with reduced ejection fraction- BNP 173. Chest x-ray with very mild congestion. Patient did receive IV Lasix during admission with significant improvement, quicker than expected. Resume home Lasix regimen 80 mg daily. Recommend follow-up with cardiology in 1 week. Oxygen stable on room air. Walking pulse ox completed prior to discharge and oxygen remained stable with ambulation. LVEF per stress test 38%. 3. Chronic cough, history of extensive tobacco use-suspect undiagnosed COPD. Patient reports extensive history of smoking as well as work exposure to other irritants. Recommend establishing with pulmonary medicine, Dr. Frankel or Dr. Go for PFTs and further evaluation. 4. Hypertension-stable, continue carvedilol, Lasix, isosorbide, losartan, hydralazine regimen. 5. Chronic kidney disease stage III-at baseline. 6. CAD with history of stents-continue aspirin, Eliquis, carvedilol, Plavix, isosorbide, statin, Ranexa, losartan. 7. Type 2 diabetes mellitus-continue home insulin regimen. 8. Atrial fibrillation-rate controlled, continue carvedilol, amiodarone, Eliquis. Patient seen and examined prior to discharge. Physical assessment as noted below. Patient is stable for discharge with follow up recommendations as noted above. This patient was seen by WALDEMAR Blair under the supervision of Dr. Bond. - Physical Exam Vitals/I&O's: Vital Signs Temp Pulse Resp BP Pulse Ox 97.7 F L 74 16 124/70 H 92 04/21/19 15:02 04/21/19 15:04 04/21/19 15:02 04/21/19 15:02 04/21/19 15:02 Oxygen Flow Rate (L/min) [ 0 AMBULATING on Room Air] Oxygen Flow Rate (L/min) [At 0 REST on Room Air] Oxygen Flow Rate (L/min) 2 Oxygen Delivery Method Room Air Weight: 208 lb Body Mass Index (BMI) 30.7 Finger Stick Blood Glucose 105 Intake and Output for Last 24 Hours 04/19/19 04/20/19 04/21/19 23:59 23:59 23:59 Intake Total 720 / 720 Output Total 575 / 575 250 / 250 Balance 145 / 145 -250 / -250 General: Alert, Oriented x3, Cooperative HEENT: Atraumatic, PERRLA, EOMI, Normocephalic Neck: Supple, No JVD, Negative Carotid Bruits Lungs: Clear to auscultation, Diminished Cardiovascular: Normal S1, Normal S2, No murmurs, - - Atrial fibrillation, rate controlled Abdomen: Bowel Sounds Present, Soft, Non Tender Extremities: No clubbing, No cyanosis, No edema, Capillary Refill Less than 3 Seconds Skin: No rashes, No breakdown Musculoskeletal: No Tenderness to Palpation of Joints or Extremities Neurological: Cranial nerves II-XII grossly intact, Neuro grossly intact Psych/Mental Status: Normal Affect, Appropriate Laboratory Results 04/20/19 17:38: Troponin I < 0.015 04/20/19 20:10: Troponin I < 0.015 04/20/19 22:51: POC Glucose 195 H 04/21/19 05:30: WBC 7.6, RBC 4.79, Hgb 13.4, Hct 42.5, MCV 88.7, MCH 28.0, MCHC 31.5 L, RDW Std Deviation 49.1 H, RDW Coeff of [place] 15.0 H, Plt Count 208, MPV 9 .4, Immature Gran % (Auto) 0.800, Neut % (Auto) 75.1 H, Lymph % (Auto) 11.9 L, [place] % (Auto) 9.6, Eos % (Auto) 2.1, Baso % (Auto) 0.5, Absolute Neuts (auto) 5.7, Absolute Lymphs (auto) 0.91, Nucleated RBC % 0 04/21/19 05:30: Sodium 137, Potassium 3.7, Chloride 101, Carbon Dioxide 31.0, Anion Gap 5, BUN 14, Creatinine 1.71 H, Estim Creat Clear Calc 42.49, Est GFR (MDRD) Af Amer 52 L, Est GFR (MDRD) Non-Af 43 L, BUN/Creatinine Ratio 8.2 L, Glucose 199 H, Calcium 8.2 L 04/21/19 06:17: POC Glucose 225 H 04/21/19 11:27: POC Glucose 223 H Current Medications Amiodarone HCl (Cordarone) 200 mg PO DAILY [facility] Last Admin: 04/21/19 06:19 Dose: 200 mg Documented by: Apixaban (Eliquis) 2.5 mg PO BID [facility] Last Admin: 04/21/19 11:33 Dose: 2.5 mg Documented by: Aspirin (Aspirin, Baby) 81 mg PO DAILY@0800 [facility] Last Admin: 04/21/19 06:19 Dose: 81 mg Documented by: Carvedilol (Coreg) 25 mg PO BID [facility] Last Admin: 04/21/19 11:30 Dose: 25 mg Documented by: Clopidogrel Bisulfate (Plavix) 75 mg PO DAILY [facility] Last Admin: 04/21/19 11:29 Dose: 75 mg Documented by: Furosemide (Lasix) 40 mg IV BIDLX [facility] Last Admin: 04/21/19 11:30 Dose: 40 mg Documented by: Glucagon () 1 mg IM .X1 PRN PRN Reason: Hypoglycemia Hydralazine HCl (Apresoline) 100 mg PO TID [facility] Last Admin: 04/21/19 15:04 Dose: 100 mg Documented by: Dextrose (Dextrose 10%-Water) 250 mls @ 999 mls/hr IV .Q16M PRN; Protocol PRN Reason: HYPOGLYCEMIA Insulin Human Lispro (Humalog Kwikpen (Bkc)) 0 unit SC ACHS [facility]; Protocol Last Admin: 04/21/19 11:38 Dose: 4 u Documented by: Insulin Human NPH (Humulin N (Bkc)) 15 units SC BIDAC [facility] Last Admin: 04/21/19 11:12 Dose: Not Given Documented by: Loratadine (Claritin) 10 mg PO DAILY [facility] Last Admin: 04/21/19 11:29 Dose: 10 mg Documented by: Losartan Potassium (Cozaar) 100 mg PO DAILY [facility] Last Admin: 04/21/19 06:19 Dose: 100 mg Documented by: Nitroglycerin (Nitrostat) 0.4 mg SUBLINGUAL Q5M PRN PRN Reason: Chest pain Ondansetron HCl (Zofran) 4 mg IV Q8H PRN PRN PRN Reason: NAUSEA/VOMITING Pantoprazole Sodium (Protonix) 40 mg PO BID [facility] Last Admin: 04/21/19 11:29 Dose: 40 mg Documented by: Pravastatin Sodium (Pravachol) 40 mg PO QHS [facility] Last Admin: 04/20/19 22:59 Dose: 40 mg Documented by: Ranolazine (Ranexa) 500 mg PO BID [facility] Last Admin: 04/21/19 11:29 Dose: 500 mg Documented by: Sodium Chloride () 10 - 40 ml IV UD PRN PRN Reason: SALINE FLUSH Discharge Diet: 8 Cup Fluid Restriciton, 2000 mg Sodium Diet Discharge Activity: Return to Normal Activity Call your doctor if you observe: Shortness of breath, Dizziness, Fainting spells, Chest pain Home Medications: Medications to take at Discharge Albuterol Sulfate [Ventolin Hfa] 2 puff INHALATION Q4H PRN 03/13/19 Amiodarone HCl [Cordarone] 200 mg PO DAILY 03/13/19 Apixaban [Eliquis] 2.5 mg PO BID 03/13/19 Aspirin [Aspirin, Baby] 81 mg PO DAILY@0800 03/13/19 Carvedilol [Coreg] 25 mg PO BID 03/13/19 Clopidogrel Bisulfate [Plavix] 75 mg PO DAILY 03/13/19 Furosemide [Lasix] 80 mg PO DAILY 03/13/19 Isosorbide Mononitrate [Isosorbide Mononitrate ER] 120 mg PO BID 03/13/19 Loratadine 10 mg PO DAILY 03/13/19 Losartan Potassium [Cozaar] 100 mg PO DAILY 03/13/19 Pantoprazole Sodium [Protonix] 40 mg PO BID 03/13/19 Pravastatin Sodium 40 mg PO QHS 03/13/19 Ranolazine [Ranolazine ER] 500 mg PO BID 03/13/19 hydrALAZINE [Apresoline] 100 mg PO TID 03/13/19 Esomeprazole Mag Trihydrate [Nexium] 40 mg PO BID #20 cap 03/15/19 Insulin NPH Human Isophane [Novolin N] 15 unit SQ BID 04/20/19 Primary Care Physician: Jennifer Spicer DO [Primary Care Provider] - Please follow up with your Primary Care Physician in: 1 Week Please Follow Up With: Marco Antonio Butler MD When: Call to follow up with [facility] in 1 week Please Follow Up With: Nii Go DO - [phone] When: Call to schedule with pulmonary medicine to establish for further testing Disposition: Home Minutes spent on discharge:: 35 Patient Condition:: Stable Medical Necessity - Tobacco Use Smoking Status: Former smoker Tobacco Use: Cigarettes Meaningful Use Info Meaningful Use Diagnoses (Choose all that apply): CHF - CHF AN/ARB ordered at discharge?: Yes Documented LVEF (%): 45
== END 2019-04-21 11:57 | disposition home or self-care (01) ==
LOC: ED 14:55 → PCU 15:14
PROVIDERS: Admitting Provider Student in an Organized Health Care Education/Training Program; Emergency Provider Emergency Medicine; PCP Family Medicine; Referring Provider Family Medicine; Visit Provider Internal Medicine
DX: R07.89 Other chest pain (principal); N18.3 Chronic kidney disease, stage 3 (moderate); I13.0 Hypertensive heart and chronic kidney disease with heart failure and stage 1 through stage 4 chronic kidney disease, or unspecified chronic kidney disease; I25.10 Atherosclerotic heart disease of native coronary artery without angina pectoris; I50.22 Chronic systolic (congestive) heart failure; E11.22 Type 2 diabetes mellitus with diabetic chronic kidney disease; I48.0 Paroxysmal atrial fibrillation; D63.1 Anemia in chronic kidney disease; E78.5 Hyperlipidemia, unspecified; I25.2 Old myocardial infarction; I27.21 Secondary pulmonary arterial hypertension; E87.6 Hypokalemia; I25.5 Ischemic cardiomyopathy; Z79.899 Other long term (current) drug therapy; Z79.02 Long term (current) use of antithrombotics/antiplatelets; Z79.82 Long term (current) use of aspirin; Z79.4 Long term (current) use of insulin; Z79.01 Long term (current) use of 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s; Z87.891 Personal history of nicotine dependence; Z95.810 Presence of automatic (implantable) cardiac defibrillator; Z95.5 Presence of coronary angioplasty implant and graft
CPT/HCPCS: 36415; 71045; 78452; 80048; 82962; 83880; 84484; 85025; 93005; 93017; 96374; 96376; 99218; 99285; A9500; A4216; G0378; J1940; J2785

== ENCOUNTER 2019-05-05 19:20 | Inpatient (IN) | payer MEDICARE, SELFPAY ==
[2016-06-12 14:02] VITALS: BMI 29.7
[2019-04-20 15:36] VITALS: BMI 30.7
[2019-05-05] VITALS (7 sets, daily range): BP systolic 134–194; BP diastolic 91–138; PULSE 102–127; RESP 18–28; TEMP 36.5; O2SAT 92–99; BMI 29.8; BMI 30.9; BMI 31.0
--- NOTE | 2019-05-05 19:27 | EKG12_ITS ---
Test Reason : DYSRHYTHMIA Blood Pressure : / mmHG Vent. Rate : 119 BPM Atrial Rate : 127 BPM P-R Int : 000 ms QRS Dur : 136 ms QT Int : 396 ms P-R-T Axes : 000 -57 093 degrees QTc Int : 557 ms Atrial Flutter Left axis deviation Non-specific intra-ventricular conduction block Inferior infarct age undetermined, cannot be excluded Abnormal ECG . Confirmed by MEL METZ, REINA ([id number]), development editor MELLISSA HOPKINS ([id number]) on 05/08/2019 3:20:55 PM Referred By: Eveline Amado Confirmed By:REINA LEAL MD
--- NOTE | 2019-05-05 19:30 | RAD_ITS ---
STUDY: X-RAY CHEST REASON FOR EXAM: Male, 68 years old. PT C/O INCREASING SOB AND SWELLING ALL OVER. HISTORY OF CHF. PT ALSO REPORTS FALLING TODAY TECHNIQUE: Single frontal view of the chest. COMPARISON: April 20, 2019 FINDINGS: There is perihilar fullness associated with indistinct pulmonary bronchovasculature. There is a ill-defined right basilar opacity. There are prominent interstitial markings. There is a cardiac pacer device in place. There is cardiomegaly. Normal visualized aortic arch and descending thoracic aorta. Normal visualized thoracic spine. Normal visualized ribs, clavicles, and shoulders. There is no demonstrated abnormality of the visualized soft tissue structures of the upper abdomen. RAD/Chest 1 View (Portable) IMPRESSION: Findings concerning for congestive heart failure. Indeterminate right basilar opacity may be secondary to underlying atelectasis and/or evolving pneumonia. Electronically Signed: Melani Thompson MD at 19:51 EST Tel , Service support ,
[2019-05-05] MEDS: Ipratropium/Albuterol Sulfate 3 ML AMPUL.NEB INHALATION (20:00)
[2019-05-05 20:04] LABS: Absolute Lymphocyte Count 0.91 X10^3/uL (0.83-4.51); Absolute Neutrophil Count 8.4 X10^3/uL (2.0-7.7); Basophil# 0.12 X10^3/uL; Basophil% 1.1 % (0-1); Eosinophil# 0.26 X10^3/uL; Eosinophils% 2.4 % (0-5); Hematocrit 46.5 % (40-54); Hemoglobin 14.9 g/dL (13.0-16.5); Lymphocyte # 0.91 X10^3/ul (4.0); Lymphocyte % 8.4 % (19-41); Mean Corpuscular Hgb 27.9 pg (27.0-32.0); Mean Corpuscular Volume 87.1 fL (80-94); Monocyte# 0.96 X10^3/uL; Monocyte% 8.8 % (0-10); NRBC Flagged by Analyzer 0 % (0-5); Neutrophil # 8.43 X10^3/uL (2.7-7.7); Neutrophil % 77.5 % (47-70); Platelet Count 273 K/mm3 (150-450); RBC Distribution Width CV 14.8 % (11.6-14.6); Red Blood Count 5.34 M/mm3 (4.6-6.2); White Blood Count 10.9 K/mm3 (4.4-11.0)
[2019-05-05] MEDS: Nitroglycerin Oint 1 INCH PACKET TRANSDERM. (20:04)
[2019-05-05] MEDS: Morphine 4 MG/ML Syringe IV (20:04)
[2019-05-05] MEDS: Furosemide 100 MG/10 ML Vial 80 MG IV (20:05)
[2019-05-05 20:24] LABS: Anion Gap 6 (5-15); BUN 19 mg/dL (7-18); BUN/Creat Ratio 10.1 RATIO (10-20); Calcium,Total 8.8 mg/dL (8.5-10.1); Chloride 101 mmol/L (98-107); Creatinine, Serum 1.88 mg/dL (0.70-1.30); EST Glomerular Filtration Rate 38 mL/min (>60); Est Glom Filt Rate - Afr Amer 46 mL/min (>60); Estimated Creatinine Clearance 38.65 ml/min; Glucose 244 mg/dL (74-106); Potassium 3.6 mmol/L (3.5-5.1); Sodium Level 135 mmol/L (136-145)
[2019-05-05 20:30] LABS: BNP,B-Type NATRIURETIC PEPTIDE 300.1 pg/mL (0-100)
--- NOTE | 2019-05-05 20:40 | ED.DCSUM_ITS ---
- ER Visit Summary Date of Service: 05/05/19 Chief Complaint: [Shortness of breath] History of Present Illness: The patient is a 68 M [resents to the emergency department complaint of shortness of breath that came on rather suddenly about an hour ago. Patient states that he is 3 pounds heavier today than yesterday. Patient does have history of CHF. Patient has noticed increased willingness to his legs today. Patient also has had a cough for couple of days but it is been mostly nonproductive. He denies any fever. Patient has history of coronary artery disease, CHF, type 2 diabetes, hypertension, chronic kidney disease, and history of atrial fibrillation.] Physical Examination: [HEENT-PERRLA, EOMI. Cranial nerves II through XII grossly intact. TMs clear. Mucous membranes moist. No adenopathy. Cardiovascular-regular rate and rhythm without murmur or ectopy Lungs-decreased breath sounds in the bases. Patient has a faint expiratory wheezes noted. Patient has some rales in the bases bilaterally. Patient is tachypneic. Patient has conversational dyspnea. Abdomen-normoactive bowel sounds, soft, nontender, no rebound or rigidity, no peritoneal signs. Extremities-intact ?4, normal range of motion, normal pulses, atraumatic. Patient has +2 edema both lower extremities.] Test Results: [EKG obtained arrival showed atrial fibrillation with a ventricular rate of 119 bpm with nonspecific intraventricular conduction delay. CBC with differential, 10.9, hemoglobin 15, hematocrit 46, platelet 273. Chemistries unremarkable. BUN was 19 and creatinine 1.88. Troponin less than 0.015. BNP was 300. Chest x-ray showed CHF and right basilar opacity which could be either atelectasis or possibly an early infiltrate. 1 screen pending.] Emergency Department Course and Treatment: [On arrival patient was given a DuoNeb aerosol. Patient also given Lasix 80 mg IV. He was given morphine sulfate 4 mg IV and had a Nitropaste placed to the anterior chest wall.] Treatment Plan: [Admit] Disposition: [Admit] Impression: [Acute CHF] A. fib RVR This note was generated with [employer] dictation software. It may contain incorrect words, spelling, and punctuation that were not noted in review of the chart prior to signing ED Disposition - Plan for ED Patient: Referrals: Jennifer Spicer DO [Primary Care Provider] -
--- NOTE | 2019-05-05 21:58 | HP.PCM_ITS ---
Problem List (1) Stage 3 chronic kidney disease Status: Chronic (2) Essential hypertension Status: Chronic (3) Chronic systolic CHF (congestive heart failure) Status: Chronic (4) Secondary pulmonary arterial hypertension Status: Chronic (5) History of coronary artery stent placement Status: Chronic Comment: SARA-RCA 06/15/2011, SARA-OM1 06/30/2011, SARA-LAD 08/20/2014, SARA-Prox- RCA 06/08/2016 (6) Atherosclerosis of coronary artery of [place] heart without angina pectoris Status: Chronic Qualifiers: Comment: SARA-RCA 06/15/2011, SARA-OM1 06/30/2011, SARA-LAD 08/20/2014, SARA-Prox- RCA 06/08/2016 (7) Paroxysmal atrial fibrillation Status: Chronic (8) Type II diabetes mellitus Status: Chronic (9) Cardiomyopathy, ischemic Status: Chronic History of Present Illness Date of Admission: 05/05/19 Chief Complaint: Shortness of breath, leg swelling. The patient is a 68 year old M patient with past medical history as mentioned above presented to the emergency room because of shortness of breath and leg swelling. His symptoms started today morning when he noticed that his legs are more swollen than usual and later in the day, he started having shortness of breath. Shortness of breath with exertion, comes on with moderate activity, aggravated by any type of activity, somewhat relieved by rest, associated with dry cough without sputum production. On the course of the day, his shortness of breath got worse and he decided to come to the emergency department. He reported occasional dizziness. Denied chest pain, syncope or presyncope. He denied fever or chills. He did mention that he takes his Lasix every day as prescribed And he did not miss a dose. In the emergency department, patient was afebrile, heart rate was in the 120s, blood pressure is not elevated, was dyspneic and tachypneic, pulse ox was 96% on 3 L. He is not on oxygen at home. Routine blood work was remarkable for BUN of 19, creatinine is 1.88, otherwise normal. EKG revealed A. fib with RVR, no ischemic changes. Troponin was negative. BNP was 300. X-ray revealed mild cardiomegaly, significant bilateral pulmonary vascular congestion with fluid in the fissure on the right lung. He is being admitted for acute on chronic combined systolic and diastolic CHF which is probably precipitated by A. fib with RVR and also found to have hypoxia. 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) Nonsustained ventricular tachycardia (Chronic) Chronic systolic CHF (congestive heart failure) (Chronic) Presence of implantable cardioverter-defibrillator (ICD) (Chronic) 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) History of coronary artery stent placement (Chronic 06/08/16) SARA-RCA 06/15/2011, SARA-OM1 06/30/2011, SARA-LAD 08/20/2014, SARA-Prox- RCA 06/08/2016 Atherosclerosis of coronary artery of [place] heart without angina pectoris (Chronic) SARA-RCA 06/15/2011, SARA-OM1 06/30/2011, SARA-LAD 08/20/2014, SARA-Prox- RCA 06/08/2016 Paroxysmal atrial fibrillation (Chronic) Hyperlipidemia (Chronic) Type II diabetes mellitus (Chronic) STEMI (ST elevation myocardial infarction) (Chronic) Cardiomyopathy, ischemic (Chronic) Medical History: Medical History (Last Updated 05/05/19 @ 21:58 by Eveline Amado MD) Essential hypertension (Chronic) I10 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) Z79.01 Nonsustained ventricular tachycardia (Chronic) I47.2 Chronic systolic CHF (congestive heart failure) (Chronic) I50.22 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) I27.21 Atherosclerosis of coronary artery of [place] heart without angina pectoris (Chronic) I25.10 SARA-RCA 06/15/2011, SARA-OM1 06/30/2011, SARA-LAD 08/20/2014, SARA-Prox- RCA 06/08/2016 Paroxysmal atrial fibrillation (Chronic) I48.0 Hyperlipidemia (Chronic) E78.5 Type II diabetes mellitus (Chronic) E11.9 STEMI (ST elevation myocardial infarction) (Chronic) Cardiomyopathy, ischemic (Chronic) I25.5 DDD (degenerative disc disease) Obesity (BMI 30.0-34.9) E66.9 Old myocardial infarction I25.2 inferior lateral and Anterior Apical Cardiogenic shock Onset Date: 06/08/16 R57.0 Hypertensive emergency I16.1 Esophagitis determined by endoscopy (Inactive) Onset Date: 05/06/17 K20.9 Allergies diltiazem Allergy (Verified 05/05/19 19:21) LOWER LEG SWELLING tamsulosin [From Flomax] Allergy (Verified 05/05/19 19:21) Shortness of breath/muscle weakness atorvastatin calcium [From Lipitor] Adverse Reaction (Verified 05/05/19 19:21) MUSCLE WEAKNESS Home Medications: Ambulatory Orders Medication Instructions Recorded Albuterol Sulfate [Ventolin Hfa] 2 puff INHALATION Q4H PRN 03/13/19 Amiodarone HCl [Cordarone] 200 mg PO DAILY 03/13/19 Apixaban [Eliquis] 2.5 mg PO BID 03/13/19 Aspirin [Aspirin, Baby] 81 mg PO DAILY@0800 03/13/19 Carvedilol [Coreg] 25 mg PO BID 03/13/19 Clopidogrel Bisulfate [Plavix] 75 mg PO DAILY 03/13/19 Furosemide [Lasix] 80 mg PO DAILY 03/13/19 Isosorbide Mononitrate [Isosorbide 120 mg PO BID 03/13/19 Mononitrate ER] Loratadine 10 mg PO DAILY 03/13/19 Losartan Potassium [Cozaar] 100 mg PO DAILY 03/13/19 Pantoprazole Sodium [Protonix] 40 mg PO BID 03/13/19 Pravastatin Sodium 40 mg PO QHS 03/13/19 Ranolazine [Ranolazine ER] 500 mg PO BID 03/13/19 Esomeprazole Mag Trihydrate 40 mg PO BID #20 cap 03/15/19 [Nexium] Insulin NPH Human Isophane 15 unit SQ BID 04/20/19 [Novolin N] Hydralazine HCl 100 mg PO TID 05/05/19 Surgical History: Surgical History (Last Reviewed 05/05/19 @ 22:02 by Eveline Amado MD) Presence of implantable cardioverter-defibrillator (ICD) (Chronic) Z95.810 History of coronary artery stent placement (Chronic) Onset Date: 06/08/16 Z95.5 SARA-RCA 06/15/2011, SARA-OM1 06/30/2011, SARA-LAD 08/20/2014, SARA-Prox- RCA 06/08/2016 History of cardioversion Onset Date: 04/10/16 Z98.890 01/14/15 (unsuccessful), 04/10/2016 H/O elbow surgery Z98.890 H/O left wrist surgery Z98.890 S/P right inguinal hernia repair Z98.890, Z87.19 Status post knee surgery Z98.890 Surgical History: - - s/p stents, AICD. Psychiatric History: No pertinent psych hx Lives: With Family Smoking Status: Former smoker Alcohol: None Drugs: None - *Family History Maternal Family History: Family History (Last Reviewed 03/01/19 @ 13:52 by Yaritza Braden) Brother Sudden cardiac History Items: Hypertension Paternal Family History: Family History (Last Reviewed 03/01/19 @ 13:52 by Yaritza Braden) Brother Sudden cardiac History Items: Unknown Sibling Family History: Family History (Last Reviewed 03/01/19 @ 13:52 by Yaritza Braden) Brother Sudden cardiac History Items: Heart Disease Review of Systems Constitutional: Denies: Anorexia, Chills, Fever, Weakness Eyes: Denies: Blurred vision, Double vision, Drainage, Redness HEENT: Denies: Difficulty Hearing, Ear Pain, Eye Pain, Nasal Congestion, Sore Throat Cardiovascular: Reports: Edema. Denies: Chest Pain, Chest Pressure, Chest Tightness, Heaviness, Light Headedness, Orthopnea, Palpitations, Paroxysmal Noc. Dyspnea Respiratory: Reports: Cough, Shortness of breath upon exertion. Denies: Shortness of Breath, Sputum production, Wheezing Gastrointestinal: Denies: Abdominal Pain, Constipation, Diarrhea, Nausea, Vomiting Genitourinary: Denies: Dysuria, Frequency, Hematuria Musculoskeletal: Denies: Arm Pain, Back Pain, Foot Pain Skin: Denies: Dryness, Rash Neurological: Denies: Balance problems, Double vision, Change in Speech, Slurred speech, Confusion, Headaches, Incoordination Psychiatric: Denies: Anxiety, Depression Endocrine: Denies: Change in Body Habitus, Polydipsia, Polyuria VTE Information - Inpt Only VTE Present on Admission: No VTE Mechan Device Prophylaxis: None VTE Pharm Prophylaxis ordered?: No - Physical Exam Vitals/I&O's: Vital Signs Temp Pulse Resp BP Pulse Ox 97.7 F L 126 H 24 H 134/91 H 92 05/05/19 19:23 05/05/19 21:17 05/05/19 21:17 05/05/19 21:17 05/05/19 21:17 Oxygen Flow Rate (L/min) 3 Oxygen Delivery Method Nasal Cannula Weight: 202 lb Body Mass Index (BMI) 29.8 Finger Stick Blood Glucose 105 General: Alert, Oriented x3, Cooperative, - - Mildly short of breath. HEENT: Atraumatic, PERRLA, EOMI, Normocephalic Oral: Moist Mucosa, No Gingival or Mucosal Lesions/ Ulcerations Neck: Supple, No JVD, Negative Carotid Bruits, Trachea Midline, Thyroid Normal Size and Texture Lungs: Diminished, Rales, Short of Breath, - - Markedly decreased breath sounds bilateral, faint bilateral basal crackles. Cardiovascular: Normal S1, Normal S2, PMI Normal, Irregular Rate, Tachycardic Abdomen: Bowel Sounds Present, Soft, Non Tender, Non-Distended, No Hepato- splenomegaly, Obese Extremities: No clubbing, No cyanosis, Edema - + Edema. Skin: No rashes, No breakdown Lymphatic: No Cervical, Supraclavicular, or Inguinal Adenopathy Neurological: Cranial nerves II-XII grossly intact, Motor Exam 5/5 strength throughout Psych/Mental Status: Normal Affect, Appropriate, Alert and oriented to time, place, person, mood and affect Microbiology Past 72 Hours 05/05/19 20:00 Mucosa - Nasopharyngeal Influenza Types A,B Direct FA (PORSHA) - Final Laboratory Results 05/05/19 19:57: WBC 10.9, RBC 5.34, Hgb 14.9, Hct 46.5, MCV 87.1, MCH 27.9, MCHC 32.0, RDW Std Deviation 47.0 H, RDW Coeff of [place] 14.8 H, Plt Count 273, MPV 9.0, Immature Gran % (Auto) 1.800 H, Neut % (Auto) 77.5 H, Lymph % (Auto) 8.4 L, [place] % (Auto) 8.8, Eos % (Auto) 2.4, Baso % (Auto) 1.1 H, Absolute Neuts (auto) 8.4 H , Absolute Lymphs (auto) 0.91, Nucleated RBC % 0 05/05/19 19:57: Sodium 135 L, Potassium 3.6, Chloride 101, Carbon Dioxide 28.0, Anion Gap 6, BUN 19 H, Creatinine 1.88 H, Estim Creat Clear Calc 38.65, Est GFR (MDRD) Af Amer 46 L, Est GFR (MDRD) Non-Af 38 L, BUN/Creatinine Ratio 10.1, Glucose 244 H, Calcium 8.8, Troponin I < 0.015 05/05/19 19:57: B-Natriuretic Peptide 300.1 H Clinical Impression(s) from Imaging Studies Chest X-Ray 05/05/19 19:30 IMPRESSION: Findings concerning for congestive heart failure. Indeterminate right basilar opacity may be secondary to underlying atelectasis and/or evolving pneumonia. Electronically Signed: Melani Thompson MD at 19:51 EST Tel , Service support , Assessment/Plan This is a 68 years old male patient presented to the emergency room because of shortness of breath and increasing bilateral leg edema and he was found to have acute on chronic combined systolic and diastolic CHF as well as A. fib with RVR and hypoxia. #1 acute on chronic diastolic and systolic CHF: Based on symptoms shortness of breath, edema, chest x-ray findings and elevated BNP. This could be precipitated by A. fib with RVR. EKG reviewed as well chest x-ray as above. Patient had 2D echocardiogram on December, revealed ejection fraction of 45%, moderately dilated left ventricle, stage II diastolic dysfunction, severely hypokinetic inferior and anterior apex, mild pulmonary hypertension. Plan: Admit to PCU, cardiac monitoring, serial cardiac enzymes, start IV Lasix for diuresis, fluid restriction to less than 1500 cc daily, continue Coreg, isosorbide mononitrate and losartan, input output chart, repeat CBC and BMP vipul orr morning, PT OT evaluation and treatment. #2 A. fib with RVR: In context of history of paroxysmal A. fib. Heart rate has been in the 120s, blood pressure stable. Plan: Continue amiodarone and Coreg for rate control, continue Eliquis for anticoagulation, cardiology consult. Patient is allergic to Cardizem. May need to give him IV metoprolol as needed as heart rate stayed high. This patient has been having frequent admissions for CHF which is probably precipitated by recurrent A. fib with RVR. #3 acute hypoxic respiratory sufficiency: Secondary to #1. Patient is not on home oxygen. Today, he is requiring up to 3 L of oxygen. Plan: IV diuresis, albuterol PRN, incentive spirometer. #4 CAD status post stents: Stable, EKG without acute changes. Troponin is negative. Continue aspirin, statins, Coreg, Plavix, nitrate, hydralazine and losartan #5 stage III chronic kidney disease: Baseline creatinine has been fluctuating anywhere between 1.7 to 2.7 mg/dL. Admission creatinine is 1.88, stable at baseline. #6 chronic systolic CHF/ischemic cardiomyopathy: 2D echocardiogram reviewed as above. Plan for IV diuresis, continue Coreg, hydralazine, nitrate and losartan. #7 type 2 diabetes mellitus: ADA diet, Accu-Cheks, insulin sliding scale, continue NovoLog insulin twice daily. #8 hypertension: Continue Coreg, hydralazine, nitrate and losartan. #9 hyperlipidemia: Continue statins. #10 DVT prophylaxis: Continue Eliquis. This note was generated with [employer] dictation software. It may contain incorrect words, spelling, and punctuation that were not noted in checking the note before signing. Code Visit Inpatient E&M: 73516 Init Hosp L3
[2019-05-05 23:07] LABS: International Normalized Ratio 1.2; Prothrombin Time (Protime)PT. 14.9 SECONDS (11.7-14.9)
[2019-05-05 23:26] LABS: Bedside Glucose 289 mg/dL (70-110)
[2019-05-06] VITALS (13 sets, daily range): BP systolic 135–165; BP diastolic 64–101; PULSE 84–103; RESP 16–20; TEMP 36.4–37.1; O2SAT 94–98
[2019-05-06] MEDS: Carvedilol 25 MG Tablet PO ×3 (00:06→21:35)
[2019-05-06] MEDS: APIXABAN 2.5 MG TABLET PO ×3 (00:06→21:35)
[2019-05-06] MEDS: Furosemide 40 MG/4 ML Vial IV ×4 (00:06→21:34)
[2019-05-06] MEDS: Pravastatin 40 MG Tablet PO ×2 (00:06→21:36)
[2019-05-06] MEDS: Insulin Lispro 100 UNIT/ML INSULN.PEN SC ×5 (00:07→21:33)
[2019-05-06] MEDS: Insulin NPH Human 100 UNITS/ML PEN 15 UNITS SC ×3 (00:07→21:34)
[2019-05-06] MEDS: Pantoprazole Sodium 40 MG Tablet PO ×3 (00:08→21:37)
[2019-05-06] MEDS: hydrALAZINE 50 MG Tablet 100 MG PO ×4 (00:09→21:34)
[2019-05-06] MEDS: Ranolazine 500 MG Tablet PO ×3 (00:10→21:37)
[2019-05-06] MEDS: Acetaminophen 325 MG Tablet 650 MG PO ×2 (04:32→12:09)
[2019-05-06 07:04] LABS: Absolute Lymphocyte Count 0.69 X10^3/uL (0.83-4.51); Absolute Neutrophil Count 7.8 X10^3/uL (2.0-7.7); Basophil# 0.07 X10^3/uL; Basophil% 0.7 % (0-1); Eosinophil# 0.16 X10^3/uL; Eosinophils% 1.6 % (0-5); Hematocrit 43.7 % (40-54); Hemoglobin 13.8 g/dL (13.0-16.5); Lymphocyte # 0.69 X10^3/ul (4.0); Mean Corp Hgb Conc 31.6 g/dL (32-36); Mean Corpuscular Hgb 27.7 pg (27.0-32.0); Mean Corpuscular Volume 87.6 fL (80-94); Mean Platelet Vol. 9.3 fl (6.2-12.0); Monocyte# 1.02 X10^3/uL; Monocyte% 10.3 % (0-10); NRBC Flagged by Analyzer 0 % (0-5); Neutrophil # 7.81 X10^3/uL (2.7-7.7); Neutrophil % 79.3 % (47-70); Platelet Count 263 K/mm3 (150-450); RBC Distribution Width CV 14.7 % (11.6-14.6); RBC Distribution Width SD 46.8 fl (35.1-43.9); Red Blood Count 4.99 M/mm3 (4.6-6.2); White Blood Count 9.9 K/mm3 (4.4-11.0)
[2019-05-06 07:10] LABS: Bedside Glucose 198 mg/dL (70-110)
[2019-05-06 07:24] LABS: Anion Gap 6 (5-15); BUN 20 mg/dL (7-18); BUN/Creat Ratio 11.2 RATIO (10-20); Calcium,Total 8.7 mg/dL (8.5-10.1); Chloride 97 mmol/L (98-107); Creatinine, Serum 1.79 mg/dL (0.70-1.30); EST Glomerular Filtration Rate 41 mL/min (>60); Est Glom Filt Rate - Afr Amer 49 mL/min (>60); Estimated Creatinine Clearance 40.59 ml/min; Glucose 212 mg/dL (74-106); Potassium 3.6 mmol/L (3.5-5.1); Sodium Level 133 mmol/L (136-145)
[2019-05-06] MEDS: Aspirin 81 MG TAB.CHEW PO (08:32)
[2019-05-06] MEDS: Loratadine 10 MG Tablet PO (10:20)
[2019-05-06] MEDS: Losartan Potassium 100 MG Tablet PO (10:20)
[2019-05-06] MEDS: Amiodarone 200 MG Tablet PO (10:20)
[2019-05-06] MEDS: Clopidogrel Bisulfate 75 MG Tablet PO (10:21)
--- NOTE | 2019-05-06 11:39 | NURSING ---
Pt complaining of urinary retention. Bladder scan reported >999mL retained; straight catheterization done in sterile fashion with 1200mL return of clear, yellow urine. Pt tolerated well; states that bladder now feels empty and pressure is gone. Safety maintained.
[2019-05-06] MEDS: Finasteride 5 MG Tablet PO (12:14)
[2019-05-06 12:21] LABS: Bedside Glucose 252 mg/dL (70-110)
--- NOTE | 2019-05-06 12:50 | CON.PCM_ITS ---
Problem List (1) Systolic CHF, acute on chronic Status: Acute (2) Atrial fibrillation and flutter Status: Chronic (3) CAD in [place] artery Status: Chronic (4) History of coronary artery stent placement Status: Chronic Comment: SARA-RCA 06/15/2011, SARA-OM1 06/30/2011, SARA-LAD 08/20/2014, SARA-Prox- RCA 06/08/2016 (5) Cardiomyopathy, ischemic Status: Chronic (6) Presence of implantable cardioverter-defibrillator (ICD) Status: Chronic (7) Hyperlipidemia Status: Chronic Qualifiers: Hyperlipidemia type: unspecified Qualified Code(s): E78.5 - Hyperlipidemia, unspecified (8) Essential hypertension Status: Chronic (9) Type II diabetes mellitus Status: Chronic (10) Renal insufficiency Status: Chronic Reason for Consult Date of Consultation: 05/06/19 History of Present Illness: The patient is a 68 year old white male with a past medical history which has included CAD, PCI, ischemic cardiomyopathy, chronic systolic mediated CHF, paroxysmal atrial fibrillation/flutter, status post ICD, hyperlipidemia, hypertension, diabetes mellitus, and chronic renal insufficiency, is referred for evaluation of recurrent on acute on chronic systolic mediated CHF. He states he has been doing reasonably well at home since his last hospitalization until yesterday. He stated yesterday he noted increased edema in the lower extremities. Thus he took an additional furosemide tablet. He states by the ti me his daughter arrived home there was concern that his lower extremity edema had not improved but potentially worsened. His daughter recommended that he present to the emergency department for further evaluation. He notes prior to arrival in the emergency department he began to feel short of breath and dyspneic. He denied any obvious ongoing chest pain, nausea, emesis, diaphoresis, near-syncope or syncope. He states that since being in the hospital, receiving IV diuretics, he has had increased urination although he has required additional assistance with urination with a straight cath for approximately 1200 cc of urine, and his edema is somewhat better and his breathing is somewhat better. Troponin I levels were negative. His BNP level was reported at 300.1. His ECG and chest x-ray are as noted below. He has also undergone further evaluation recently with a pharmacologic stress nuclear imaging study. The results of that study, along with his previous noninvasive/invasive cardiovascular testing, are as noted below. [] Past Medical History Allergies/Adverse Reactions: Allergies diltiazem Allergy (Verified 05/05/19 19:21) LOWER LEG SWELLING tamsulosin [From Flomax] Allergy (Verified 05/05/19 19:21) Shortness of breath/muscle weakness atorvastatin calcium [From Lipitor] Adverse Reaction (Verified 05/05/19 19:21) MUSCLE WEAKNESS Home Medications: Ambulatory Orders Medication Instructions Recorded Albuterol Sulfate [Ventolin Hfa] 2 puff INHALATION Q4H PRN 03/13/19 Amiodarone HCl [Cordarone] 200 mg PO DAILY 03/13/19 Apixaban [Eliquis] 2.5 mg PO BID 03/13/19 Aspirin [Aspirin, Baby] 81 mg PO DAILY@0800 03/13/19 Carvedilol [Coreg] 25 mg PO BID 03/13/19 Clopidogrel Bisulfate [Plavix] 75 mg PO DAILY 03/13/19 Furosemide [Lasix] 80 mg PO DAILY 03/13/19 Isosorbide Mononitrate [Isosorbide 120 mg PO BID 03/13/19 Mononitrate ER] Loratadine 10 mg PO DAILY 03/13/19 Losartan Potassium [Cozaar] 100 mg PO DAILY 03/13/19 Pantoprazole Sodium [Protonix] 40 mg PO BID 03/13/19 Pravastatin Sodium 40 mg PO QHS 03/13/19 Ranolazine [Ranolazine ER] 500 mg PO BID 03/13/19 Esomeprazole Mag Trihydrate 40 mg PO BID #20 cap 03/15/19 [Nexium] Insulin NPH Human Isophane 15 unit SQ BID 04/20/19 [Novolin N] Hydralazine HCl 100 mg PO TID 05/05/19 Past Medical History (Chronic Problems): Chronic Problems (Last Updated 05/05/19 @ 21:58 by Eveline Amado MD) Atrial fibrillation and flutter (Chronic) CAD in [place] artery (Chronic) Renal insufficiency (Chronic) Stage 3 chronic kidney disease (Chronic) Essential hypertension (Chronic) 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) Nonsustained ventricular tachycardia (Chronic) Chronic systolic CHF (congestive heart failure) (Chronic) Presence of implantable cardioverter-defibrillator (ICD) (Chronic) 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) History of coronary artery stent placement (Chronic 06/08/16) SARA-RCA 06/15/2011, SARA-OM1 06/30/2011, SARA-LAD 08/20/2014, SARA-Prox- RCA 06/08/2016 Atherosclerosis of coronary artery of [place] heart without angina pectoris (Chronic) SARA-RCA 06/15/2011, SARA-OM1 06/30/2011, SARA-LAD 08/20/2014, SARA-Prox- RCA 06/08/2016 Paroxysmal atrial fibrillation (Chronic) Hyperlipidemia (Chronic) Type II diabetes mellitus (Chronic) STEMI (ST elevation myocardial infarction) (Chronic) Cardiomyopathy, ischemic (Chronic) Surgical History: - - s/p stents, AICD. Psychiatric History: No pertinent psych hx - *Family History Maternal Family History: Family History (Last Reviewed 03/01/19 @ 13:52 by Yaritza Braden) Brother Sudden cardiac History Items: Hypertension Paternal Family History: Family History (Last Reviewed 03/01/19 @ 13:52 by Yaritza Braden) Brother Sudden cardiac History Items: Unknown Sibling Family History: Family History (Last Reviewed 03/01/19 @ 13:52 by Yaritza Braden) Brother Sudden cardiac History Items: Heart Disease Lives: With Family Smoking Status: Former smoker Alcohol: None Drugs: None Review of Systems - Review of Systems General: Denies: Fever, Night Sweats, Fatigue Cardiovascular: Reports: Shortness of Breath, Shortness of Breath at Rest, Peripheral Edema. Denies: Chest Discomfort, Orthopnea, PND, Palpitations, Lightheadedness, Dizziness, Near Syncope, Syncope Respiratory: Reports: Shortness of Breath. Denies: Cough, Sputum Production, Hemoptysis Gastrointestinal: Denies: Hematemesis, Hematochezia, Melena Genitourinary: Denies: Dysuria, Hematuria Skin: Denies: Rash Subjectve: This is a 68-year-old white male who appears to be resting reasonably co mfortably at the moment in no acute distress. Objective: Vital Signs Temp Pulse Resp BP Pulse Ox 97.8 F 93 20 H 149/89 H 94 05/06/19 08:24 05/06/19 08:24 05/06/19 08:24 05/06/19 08:24 05/06/19 08:24 Oxygen Flow Rate (L/min) 3 Oxygen Delivery Method Room Air Weight: 209 lb 7.026 oz Body Mass Index (BMI) 30.9 Finger Stick Blood Glucose 105 Intake and Output for Last 24 Hours 05/04/19 05/05/19 05/06/19 23:59 23:59 23:59 Intake Total 240 / 240 1080 / 1080 Output Total 700 / 700 2400 / 2400 Balance -460 / -460 -1320 / -1320 General: Awake, Alert, Oriented x 3, Cooperative, No Acute Distress, Obese HEENT: Atraumatic, Normocephalic, PERRL, EOMI, Sclera Non Icteric Oral: Moist Mucosa Neck: Supple, Good ROM, No JVD Lungs: Diminished Jigar Bases Cardiovascular: Irregular Rhythm, Normal S1, Normal S2 Abdomen: Bowel Sounds Present, Soft, Non Tender Extremities: Mild RLE Edema, Mild LLE Edema Psych/Mental Status: Appropriate 05/05/19 19:57: WBC 10.9, RBC 5.34, Hgb 14.9, Hct 46.5, MCV 87.1, MCH 27.9, MCHC 32.0, Plt Count 273, MPV 9.0, Immature Gran % (Auto) 1.800 H, Neut % (Auto) 77.5 H, Lymph % (Auto) 8.4 L, [place] % (Auto) 8.8, Eos % (Auto) 2.4, Baso % (Auto) 1.1 H, Absolute Neuts (auto) 8.4 H, Nucleated RBC % 0 05/05/19 19:57: Sodium 135 L, Potassium 3.6, Chloride 101, Carbon Dioxide 28.0, Anion Gap 6, BUN 19 H, Creatinine 1.88 H, Est GFR (MDRD) Af Amer 46 L, Est GFR (MDRD) Non-Af 38 L, BUN/Creatinine Ratio 10.1, Glucose 244 H, Calcium 8.8, Troponin I < 0.015 05/05/19 19:57: B-Natriuretic Peptide 300.1 H 05/05/19 19:57: PT 14.9, INR 1.2 05/05/19 23:10: Troponin I 0.025 05/06/19 01:32: Troponin I 0.022 05/06/19 06:37: Sodium 133 L, Potassium 3.6, Chloride 97 L, Carbon Dioxide 30.0, Anion Gap 6, BUN 20 H, Creatinine 1.79 H, Est GFR (MDRD) Af Amer 49 L, Est GFR (MDRD) Non-Af 41 L, BUN/Creatinine Ratio 11.2, Glucose 212 H, Calcium 8.7 05/06/19 06:37: WBC 9.9, RBC 4.99, Hgb 13.8, Hct 43.7, MCV 87.6, MCH 27.7, MCHC 31.6 L, Plt Count 263, MPV 9.3, Immature Gran % (Auto) 1.100 H, Neut % (Auto) 79.3 H, Lymph % (Auto) 7.0 L, [place] % (Auto) 10.3 H, Eos % (Auto) 1.6, Baso % (Auto) 0.7, Absolute Neuts (auto) 7.8 H, Nucleated RBC % 0 Rhythm: Atrial flutter EKG: Atrial flutter; left axis deviation; nonspecific IVCD; inferior MN of indeterminate age cannot be excluded ECHO: 9?3?19 Interpretation Summary Moderately dilated left ventricle. The estimated ejection fraction is 45 %. Stage 2 diastolic dysfunction. Anterior [place] : Severely Hypokinetic. Inferior [place] : Severely Hypokinetic. Mid-anteroseptal : Mildly hypokinetic Mildly dilated right ventricle. The left atrium is mildly enlarged. Mild (1+) posteriorly directed mitral valve insufficiency. Mild (1+) tricuspid valve insufficiency. Right ventricular systolic pressure estimated to be 45 mmHg. Mild pulmonary hypertension. Compared to echo report dated 05/10/2017, LVEF has improved from 25% to 45%, but RVSP has worsened from 28 to 45 mm Hg. Stress Test: ADDENDUM by Hema Garcia MD on 04/21/19 at 1201 Addendum: Resting nuclear imaging dose: 13.6 mCi of technetium 99m Cardiolite Stress nuclear imaging dose: 42.8 mCi of technetium 99m Cardiolite 04/21/19 1202 Date _ Hema Garcia MD cc: Jennifer Spicer DO; Grant Bond DO ~* Signed Stress Test Report Date: 04-21-2019 Procedure: Pharmacologic stress nuclear imaging study Indications: Pain; shortness of breath/dyspnea; CAD; PCI; CHF; cardiac dysrhythmia; ICD Consent: Per the patient Procedure: The patient underwent pharmacologic (Regadenoson) evaluation with a peak heart rate of 131 beats per minute (85 %predicted maximal heart rate) and a peak blood pressure of 154/88 mmHg. The baseline ECG demonstrated atrial fibrillation; anterior lateral MN of indeterminate age cannot be excluded; inferior MN of indeterminate age cannot be excluded. The peak pharmacologic ECG demonstrated no obvious ECG changes. There were no cardiac dysrhythmias pretest, during pharmacologic infusion, or recovery. The patient noted dull left-sided chest discomfort preprocedure with no report of any significant change during infusion or recovery. The examination was discontinued secondary to completion of protocol. Impression: 1. Pharmacologic (Regadenoson) evaluation 2. Peak pharmacologic ECG with no obvious ECG changes. 3. There were no cardiac dysrhythmias pretest, during pharmacologic infusion, or recovery. 4. Nuclear images pending Myocardial perfusion imaging study: Technique: The patient was injected with millicuries of technetium 99m Cardiolite and subsequently rest SPECT Cardiolite nuclear imaging was obtained in the horizontal long, vertical long, and short axis views. The patient underwent pharmacologic (Regadenoson) evaluation with a peak heart rate of 131 beats per minute (85 % percent predicted maximal heart rate) and a peak blood pressure of 154/88 mmHg. The patient was injected with millicuries of technetium 99m Cardiolite and subsequently stress SPECT Cardiolite nuclear imaging was obtained in the horizontal long, vertical long, and short axis views. A gated Cardiolite study at peak stress was obtained. Interpretation: Rest and stress SPECT Cardiolite nuclear imaging status post realignment, normalization, and attenuation correction demonstrate the appearance of diminished absence of tracer uptake in portions of the distal anterior, anteroseptal, anterolateral, anteroapical, and lateral apical segments without significant change between rest and stress. There is diminished end systolic thickening and brightening. The gated Cardiolite study demonstrates diminished myocardial thickening and inward wall motion. The reported LVEF is 38 %. Impression: 1. Rest and stress SPECT Cardiolite nuclear imaging demonstrate myocardial perfusion changes appearing compatible with a previous area of myocardial injury/infarction involving portions of the distal anterior, anteroseptal, anterolateral, anteroapical, and lateral apical segments with no myocardial perfusion changes considered diagnostic for associated stress-induced myocardial ischemia. 2. The gated Cardiolite study reports an LVEF of 38 %. Cardiac Cath: 01-07-18 CONCLUSIONS Non obstructive coronary arteries Right heart pressures - Normal The patient has normal pulmonary hemodynamics. RECOMMENDATIONS Risk factor modification Management as per referring [employer] PFTS in 2 weeks. Restart Eliquis in 5 days. Manual sheath removal. Would not pursue PCI of distal LAD or RCA due to moderate mid LAD calcium and small caliber LAD, as well as extreme difficulty of delivering stents to RCA in 06/2016. Pt has challenging proximal curve in RCA which required stent deployment in proximal RCA, which was intended for distal RCA at the time. Distal RCA stenosis has improved and does not appear to require stenting at this time. CORONARY ANGIOGRAPHY DOMINANCE: Right Dominant LEFT HEART ASSESSMENT Left Ventricular Ejection Fraction: by LV Gram 45 % Inferior Mid Hypokinesis - Mild Depressed Left Ventricular systolic function LVEDP: 7 mmHg Normal Left Ventricular End Diastolic Pressure RIGHT HEART ASSESSMENT Thermal CO: 4.74 Thermal CI: 2.26 PW: 8/8 6 PA: 35/14 18 RV: 32/0 0 RA: 5 1 PVR: 203 SVR: 1030 LEFT MAIN: 30 % Stenosis LEFT ANTERIOR DECENDING ARTERY: PROX LAD: Instent restenosis 10 % DISTAL LAD: Moderate calcification, 65 % Stenosis CIRCUMFLEX ARTERY: OM 1: Proximal - Instent restenosis 0 % RIGHT CORONARY ARTERY: PROX RCA: Instent restenosis 20 % MID RCA: Instent restenosis 30 % DISTAL RCA: 50 % Stenosis RT PLV: Mild luminal irregularities less than 30% RT PDA: Proximal - Mild luminal irregularities CXR: IMPRESSION: Findings concerning for congestive heart failure. Indeterminate right basilar opacity may be secondary to underlying atelectasis and/or evolving pneumonia. Assessment/Plan 1. Acute on chronic systolic mediated CHF The patient presents back with findings concerning for acute on chronic systolic mediated CHF. He states at home he has not missed any of his medications. He also notes no significant change in his diet. His family members were with him state that there has been no missed medications or dietary changes. They note they do not prepare any foods with any type of salt. There has been concerns as to whether or not his underlying atrial dysrhythmia has been contributing to his acute on chronic CHF events. If this is of concern, noting that he has not responded to anti-arrhythmic therapy nor has he responded to previous synchronized biphasic DC cardioversion, he may need to be considered for possible atrial fibrillation/flutter ablation versus AV node ablation with permanent pacemaker backup supplied by his ICD. In the meantime he will continue medical therapy. This will include optimizing his medications/diuretics, etc. 2. CAD status post PCI The patient has an extensive history of underlying CAD and PCI. At the moment he is without evidence of acute coronary syndrome. He will continue to be monitored as deemed appropriate. He will continue medical management for his underlying CAD process. 3. Ischemic mediated cardiomyopathy Again he does have an underlying ischemic mediated cardiomyopathy. He will continue medical therapy/adjustment. He does have an ICD in place. 4. Paroxysmal atrial fibrillation/flutter He appears to be remaining in atrial fibrillation/flutter rhythm. He has continued rate control therapy and antiarrhythmic therapy and 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 therapy. Again if this is a contributing factor to his recurrent acute on chronic systolic mediated CHF events that he may need to be considered for either atrial arrhythmia ablation versus an AV node ablation with permanent pacemaker backup supplied by his ICD. 5. ICD He does have an ICD in place. It has been evaluated in the past and has been functioning appropriately. It can be reassessed as needed. 6. Hyperlipidemia He will continue medical management. 7. Hypertension His blood pressure will be followed and his medications can be adjusted as needed. 8. Diabetes mellitus He will continue evaluation care as deemed appropriate. 9. Chronic renal insufficiency He will continue medical therapy with follow-up of his electrolytes and renal function. His medications may need to be adjusted around his renal function, etc. The patient's case has been previously discussed with the patient, his family members present, and Dr. Purvis. This note was generated using a voice recognition system and there may be incorrect words, spelling or punctuation that were not noted when reviewing the office note prior to saving.
--- NOTE | 2019-05-06 13:03 | PN_ITS ---
Patient Problems: Active and Suspected Problems (Last Updated 05/05/19 @ 21:58 by Eveline Amado MD) Systolic CHF, acute on chronic (Acute) Subjective: Patient seen and examined. Reports difficulty urinating. States his breathing has significantly improved. Lower extremity swelling improved as well. - Physical Exam Vitals/I&O's: Vital Signs Temp Pulse Resp BP Pulse Ox 97.8 F 93 20 H 149/89 H 94 05/06/19 08:24 05/06/19 08:24 05/06/19 08:24 05/06/19 08:24 05/06/19 08:24 Oxygen Flow Rate (L/min) 3 Oxygen Delivery Method Room Air Weight: 209 lb 7.026 oz Body Mass Index (BMI) 30.9 Finger Stick Blood Glucose 105 Intake and Output for Last 24 Hours 05/04/19 05/05/19 05/06/19 23:59 23:59 23:59 Intake Total 240 / 240 1080 / 1080 Output Total 700 / 700 2400 / 2400 Balance -460 / -460 -1320 / -1320 General: Alert, Oriented x3, Cooperative HEENT: Atraumatic, PERRLA, EOMI, Normocephalic Neck: Supple, No JVD, Negative Carotid Bruits Lungs: Clear to auscultation, Diminished Cardiovascular: Regular rate, Regular Rhythm, Normal S1, Normal S2, No murmurs Abdomen: Bowel Sounds Present, Soft, Non Tender, Distended Extremities: No clubbing, No cyanosis, Capillary Refill Less than 3 Seconds, Edema - Nonpitting bilateral lower extremity Skin: No rashes, No breakdown Musculoskeletal: No Tenderness to Palpation of Joints or Extremities Neurological: Cranial nerves II-XII grossly intact, Neuro grossly intact Psych/Mental Status: Normal Affect, Appropriate Microbiology Past 72 Hours 05/05/19 20:00 Mucosa - Nasopharyngeal Influenza Types A,B Direct FA (PORSHA) - Final Laboratory Results 05/05/19 19:57: WBC 10.9, RBC 5.34, Hgb 14.9, Hct 46.5, MCV 87.1, MCH 27.9, MCHC 32.0, RDW Std Deviation 47.0 H, RDW Coeff of [place] 14.8 H, Plt Count 273, MPV 9.0, Immature Gran % (Auto) 1.800 H, Neut % (Auto) 77.5 H, Lymph % (Auto) 8.4 L, [place] % (Auto) 8.8, Eos % (Auto) 2.4, Baso % (Auto) 1.1 H, Absolute Neuts (auto) 8.4 H , Absolute Lymphs (auto) 0.91, Nucleated RBC % 0 05/05/19 19:57: Sodium 135 L, Potassium 3.6, Chloride 101, Carbon Dioxide 28.0, Anion Gap 6, BUN 19 H, Creatinine 1.88 H, Estim Creat Clear Calc 38.65, Est GFR (MDRD) Af Amer 46 L, Est GFR (MDRD) Non-Af 38 L, BUN/Creatinine Ratio 10.1, Glucose 244 H, Calcium 8.8, Troponin I < 0.015 05/05/19 19:57: B-Natriuretic Peptide 300.1 H 05/05/19 19:57: PT 14.9, INR 1.2 05/05/19 23:10: Troponin I 0.025 05/05/19 23:19: POC Glucose 289 H 05/06/19 01:32: Troponin I 0.022 05/06/19 06:37: Sodium 133 L, Potassium 3.6, Chloride 97 L, Carbon Dioxide 30.0, Anion Gap 6, BUN 20 H, Creatinine 1.79 H, Estim Creat Clear Calc 40.59, Est GFR (MDRD) Af Amer 49 L, Est GFR (MDRD) Non-Af 41 L, BUN/Creatinine Ratio 11.2, Glucose 212 H, Calcium 8.7 05/06/19 06:37: WBC 9.9, RBC 4.99, Hgb 13.8, Hct 43.7, MCV 87.6, MCH 27.7, MCHC 31.6 L, RDW Std Deviation 46.8 H, RDW Coeff of [place] 14.7 H, Plt Count 263, MPV 9.3, Immature Gran % (Auto) 1.100 H, Neut % (Auto) 79.3 H, Lymph % (Auto) 7.0 L, [place] % (Auto) 10.3 H, Eos % (Auto) 1.6, Baso % (Auto) 0.7, Absolute Neuts (auto) 7.8 H, Absolute Lymphs (auto) 0.69 L, Nucleated RBC % 0 05/06/19 06:44: POC Glucose 198 H 05/06/19 12:12: POC Glucose 252 H Current Medications Acetaminophen (Tylenol) 650 mg PO Q6H PRN PRN PRN Reason: Pain Score 1-10/Temp > 100.7 F Last Admin: 05/06/19 12:09 Dose: 650 mg Documented by: Albuterol Sulfate (Ventolin Aerosols) 2.5 mg INHALATION Q4H PRN PRN PRN Reason: Shortness of breath, wheezing Amiodarone HCl (Cordarone) 200 mg PO DAILY [facility] Last Admin: 05/06/19 10:20 Dose: 200 mg Documented by: Apixaban (Eliquis) 2.5 mg PO BID [facility] Last Admin: 05/06/19 10:21 Dose: 2.5 mg Documented by: Aspirin (Aspirin, Baby) 81 mg PO DAILY@0800 [facility] Last Admin: 05/06/19 08:32 Dose: 81 mg Documented by: Carvedilol (Coreg) 25 mg PO BID [facility] Last Admin: 05/06/19 10:20 Dose: 25 mg Documented by: Clopidogrel Bisulfate (Plavix) 75 mg PO DAILY [facility] Last Admin: 05/06/19 10:21 Dose: 75 mg Documented by: Finasteride (Proscar) 5 mg PO DAILY [facility] Last Admin: 05/06/19 12:14 Dose: 5 mg Documented by: Furosemide (Lasix) 40 mg IV Q8 [facility] Last Admin: 05/06/19 06:47 Dose: 40 mg Documented by: Glucagon () 1 mg IM .X1 PRN PRN Reason: Hypoglycemia Hydralazine HCl (Apresoline) 100 mg PO TID [facility] Last Admin: 05/06/19 06:46 Dose: 100 mg Documented by: Dextrose (Dextrose 10%-Water) 250 mls @ 999 mls/hr IV .Q16M PRN; Protocol PRN Reason: HYPOGLYCEMIA Insulin Human Lispro (Humalog Kwikpen (Bk)) 0 unit SC ACHS [facility]; Protocol Last Admin: 05/06/19 12:13 Dose: 3 u Documented by: Insulin Human NPH (Humulin N (Bkc)) 15 units SC BID [facility] Last Admin: 05/06/19 10:30 Dose: 15 u Documented by: Isosorbide Mononitrate (Imdur) 120 mg PO BID [facility] Last Admin: 05/06/19 10:21 Dose: 120 mg Documented by: Loratadine (Claritin) 10 mg PO DAILY [facility] Last Admin: 05/06/19 10:20 Dose: 10 mg Documented by: Losartan Potassium (Cozaar) 100 mg PO DAILY [facility] Last Admin: 05/06/19 10:20 Dose: 100 mg Documented by: Ondansetron HCl (Zofran) 4 mg IV Q8H PRN PRN PRN Reason: NAUSEA/VOMITING Oxycodone HCl (Oxyir) 5 mg PO Q4H PRN PRN PRN Reason: Pain Score 6-10/10 Pantoprazole Sodium (Protonix) 40 mg PO BID [facility] Last Admin: 05/06/19 10:21 Dose: 40 mg Documented by: Pravastatin Sodium (Pravachol) 40 mg PO QHS [facility] Last Admin: 05/06/19 00:06 Dose: 40 mg Documented by: Ranolazine (Ranexa) 500 mg PO BID [facility] Last Admin: 05/06/19 10:21 Dose: 500 mg Documented by: Zolpidem Tartrate (Ambien (Generic)) 5 mg PO QHS PRN PRN PRN Reason: INS Medical Necessity - Tobacco Use Smoking Status: Former smoker Assessment/Plan All Active Problems (Last Updated 05/05/19 @ 21:58 by Eveline Amado MD) Systolic CHF, acute on chronic (Acute) 1. Acute on chronic chronic heart failure with reduced ejection fraction with associated acute hypoxic respiratory insufficiency-BNP 300. Chest x-ray consistent with CHF. Continue supplement oxygen to maintain O2 at or above 90%. Continue IV Lasix. Recent normal stress test earlier in April. Strict I&O. Daily weight. [place] wraps bilateral lower extremities. Suspect CHF exacerbated b y A. fib with RVR on admission. 2. Atrial fibrillation with RVR, paroxysmal atrial fibrillation-rate now controlled, continue carvedilol, amiodarone, Eliquis. 3. Urinary retention-straight cath for greater than 1 L today. Initiated on Proscar, allergy to Flomax. Routine bladder scans, if patient continues to retain will place Avery. 4. Hypertension-stable, continue carvedilol, Lasix, isosorbide, losartan, hydralazine regimen. 5. Chronic kidney disease stage III-at baseline. 6. CAD with history of stents-continue aspirin, Eliquis, carvedilol, Plavix, isosorbide, statin, Ranexa, losartan. 7. Type 2 diabetes mellitus-continue home insulin regimen, Accu-Cheks with sliding scale insulin. 8. Chronic cough, history of extensive tobacco use-suspect undiagnosed COPD. Patient reports extensive history of smoking as well as work exposure to other irritants. Recommend establishing with pulmonary medicine, Dr. Frankel or Dr. Go for PFTs and further evaluation. DVT prophylaxis-Eliquis. This patient was seen by WALDEMAR Blair under the supervision of Dr. Purvis.
[2019-05-06] MEDS: oxyCODONE 5 MG Tablet PO ×2 (14:06→21:49)
[2019-05-06 17:11] LABS: Bedside Glucose 299 mg/dL (70-110)
[2019-05-06 17:50] LABS: Magnesium 1.9 mg/dL (1.6-2.6); Thyroid Stim Hormone (TSH) 3.74 uIU/mL (0.358-3.74)
--- NOTE | 2019-05-06 18:03 | CM.UR ---
RN CM Assessment Presentation: Heart failure, afib rvr Intro role of CM and purpose of RN CM assessment to patient, his daughter and her fiance. Demographics, PCP and Pharmacy verified. Pt lives with daughter who works during the day--she works across the street. Pt is independent at home, uses cane only and per daughter is safe at home. PCP: Dr. Jennifer Spicer Specialists: Dr. Butler, cardiology Preferred Pharmacy: [facility] Insurance: [facility] Medicare Prescription Benefit: yes LNOK: Daughter Cristy Monroy Living Arrangements: Lives independently with daughter and her fiance. States is independent in ADL, but family is available if needed. Transportation: drives and family can drive if needed. DME: cane, walker, glucometer HHC/SNF: No SNF. has had HHC before from [facility]. Patient DC goals: Home DC PLAN: Home on discharge. I did recommend possibility of HHC at discharge however he didn't really feel he needs. Krishan Sanders RN, CCM.
[2019-05-06 18:32] LABS: Bacteria 0 SEEN /hpf (None Seen); Mucous, Urine 0 SEEN /hpf (<or=2+); Red Blood Cells-Urine 0 SEEN /hpf (0-5); Squamous Epithelial Cells - UA 0 SEEN /hpf (0-5); White Blood Cells 0 SEEN /hpf (0-5)
[2019-05-06 18:36] LABS: Color, Urine Yellow (Yellow); Glucose, Dipstick 100 mg/dl (Normal); Ketone-Dipstick Negative (Negative); Leukocyte Esterase-Dipstick Negative /ul (Negative); Nitrite-Dipstick Negative (Negative); Occult Blood-Urine Negative /ul (Negative); Protein-Dipstick 30 mg/dl (Negative); Urine Bilirubin Dipstick Negative (Negative); Urine Clarity Sl. Cloudy (Clear); Urine Urobilinogen Normal (Normal)
[2019-05-06 19:02] LABS: Hyaline Cast 0-5 SEEN /lpf (0-5)
[2019-05-06 21:51] LABS: Bedside Glucose 324 mg/dL (70-110)
[2019-05-07] VITALS (12 sets, daily range): BP systolic 105–128; BP diastolic 59–87; PULSE 80–102; RESP 16–18; TEMP 36.5–36.6; O2SAT 93–95
[2019-05-07 05:34] LABS: Anion Gap 5 (5-15); BUN 29 mg/dL (7-18); BUN/Creat Ratio 12.9 RATIO (10-20); Calcium,Total 8.1 mg/dL (8.5-10.1); Chloride 95 mmol/L (98-107); Creatinine, Serum 2.25 mg/dL (0.70-1.30); EST Glomerular Filtration Rate 31 mL/min (>60); Est Glom Filt Rate - Afr Amer 38 mL/min (>60); Glucose 294 mg/dL (74-106); Potassium 3.5 mmol/L (3.5-5.1); Sodium Level 132 mmol/L (136-145)
[2019-05-07] MEDS: Furosemide 40 MG/4 ML Vial IV (06:06)
[2019-05-07] MEDS: Insulin Lispro 100 UNIT/ML INSULN.PEN SC ×2 (06:06→11:36)
[2019-05-07] MEDS: hydrALAZINE 50 MG Tablet 100 MG PO ×2 (06:36→13:50)
[2019-05-07 06:55] LABS: Bedside Glucose 262 mg/dL (70-110)
--- NOTE | 2019-05-07 08:54 | OT ---
Issued handout and verbally reviewed BUE Home exercise program. pt verbalizes understanding. rec further education
[2019-05-07] MEDS: Amiodarone 200 MG Tablet PO (09:08)
[2019-05-07] MEDS: Aspirin 81 MG TAB.CHEW PO (09:08)
[2019-05-07] MEDS: Carvedilol 25 MG Tablet PO (09:08)
[2019-05-07] MEDS: APIXABAN 2.5 MG TABLET PO (09:09)
[2019-05-07] MEDS: Clopidogrel Bisulfate 75 MG Tablet PO (09:09)
[2019-05-07] MEDS: Finasteride 5 MG Tablet PO (09:09)
[2019-05-07] MEDS: Ranolazine 500 MG Tablet PO (09:10)
[2019-05-07] MEDS: Pantoprazole Sodium 40 MG Tablet PO (09:10)
[2019-05-07] MEDS: Losartan Potassium 100 MG Tablet PO (09:10)
[2019-05-07] MEDS: Loratadine 10 MG Tablet PO (09:10)
[2019-05-07] MEDS: Insulin NPH Human 100 UNITS/ML PEN 15 UNITS SC (09:11)
[2019-05-07] MEDS: Furosemide 80 MG Tablet PO (09:14)
[2019-05-07] MEDS: Spironolactone 25 MG Tablet PO (09:14)
--- NOTE | 2019-05-07 09:35 | DCINST_ITS ---
- Discharge Diagnoses Current Active Problems: Current Active and Chronic Problems (Last Updated 05/05/19 @ 21:58 by Eveline Amado MD) Systolic CHF, acute on chronic (Acute) Atrial fibrillation and flutter (Chronic) CAD in [place] artery (Chronic) Renal insufficiency (Chronic) You will use the following diet at home:: Cardiac, Fluid restricted (specify 2000 mls, 1500 mls) - 1500cc fluid restriction Discharge Activity: Return to Normal Activity Call your doctor if you observe: Shortness of breath, Dizziness, Fainting spells, Chest pain Allergies/Adverse Reactions: Allergies diltiazem Allergy (Verified 05/05/19 19:21) LOWER LEG SWELLING tamsulosin [From Flomax] Allergy (Verified 05/05/19 19:21) Shortness of breath/muscle weakness atorvastatin calcium [From Lipitor] Adverse Reaction (Verified 05/05/19 19:21) MUSCLE WEAKNESS Medications to take at Discharge Albuterol Sulfate [Ventolin Hfa] 2 puff INHALATION Q4H PRN 03/13/19 Amiodarone HCl [Cordarone] 200 mg PO DAILY 03/13/19 Apixaban [Eliquis] 2.5 mg PO BID 03/13/19 Aspirin [Aspirin, Baby] 81 mg PO DAILY@0800 03/13/19 Carvedilol [Coreg] 25 mg PO BID 03/13/19 Clopidogrel Bisulfate [Plavix] 75 mg PO DAILY 03/13/19 Furosemide [Lasix] 80 mg PO DAILY 03/13/19 Isosorbide Mononitrate [Isosorbide Mononitrate ER] 120 mg PO BID 03/13/19 Loratadine 10 mg PO DAILY 03/13/19 Losartan Potassium [Cozaar] 100 mg PO DAILY 03/13/19 Pantoprazole Sodium [Protonix] 40 mg PO BID 03/13/19 Pravastatin Sodium 40 mg PO QHS 03/13/19 Ranolazine [Ranolazine ER] 500 mg PO BID 03/13/19 Esomeprazole Mag Trihydrate [Nexium] 40 mg PO BID #20 cap 03/15/19 Insulin NPH Human Isophane [Novolin N] 15 unit SQ BID 04/20/19 Hydralazine HCl 100 mg PO TID 05/05/19 Finasteride [Proscar] 5 mg PO DAILY #30 tab 05/07/19 Spironolactone [Aldactone] 25 mg PO DAILY #30 tab 05/07/19 The following prescriptions were given: Spironolactone [Aldactone] 25 mg PO DAILY #30 tab Transmission Status: Pending to [facility] #40 Finasteride [Proscar] 5 mg PO DAILY #30 tab Transmission Status: Pending to [facility] #[facility] Primary Care Physician: Jennifer Spicer DO [Primary Care Provider] - Please follow up with your Primary Care Physician in: As scheduled 05/17 Test Results: Test results from this visit will be discussed in further detail at your follow- up appointment, if applicable. Please Follow Up With: Marco Antonio Butler MD When: as scheduled 05/15 Please Follow Up With: Robert Almonte MD When: call for appt if further issues with urinary retention Proposed Discharge Date: 05/07/19
--- NOTE | 2019-05-07 09:37 | PCM.DC.SUM ---
Discharge Date and Diagnosis Date of Admission: 05/05/19 Date of Discharge: 05/07/19 - Primary Discharge Diagnosis Active and Suspected Problems (Last Updated 05/05/19 @ 21:58 by Eveline Amado MD) 1. Acute on chronic chronic heart failure with reduced ejection fraction with associated acute hypoxic respiratory insufficiency 2. Atrial fibrillation with RVR, paroxysmal atrial fibrillation 3. Urinary retention 4. Hypertension 5. YOMI on Chronic kidney disease stage III 6. CAD with history of stents 7. Type 2 diabetes mellitus 8. Chronic cough, history of extensive tobacco use-suspect undiagnosed COPD. - Secondary Discharge Diagnosis Chronic Problems (Last Updated 05/05/19 @ 21:58 by Eveline Amado MD) Atrial fibrillation and flutter (Chronic) CAD in [place] artery (Chronic) Renal insufficiency (Chronic) Stage 3 chronic kidney disease (Chronic) Essential hypertension (Chronic) half-way current use of 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) Nonsustained ventricular tachycardia (Chronic) Chronic systolic CHF (congestive heart failure) (Chronic) Presence of implantable cardioverter-defibrillator (ICD) (Chronic) 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) History of coronary artery stent placement (Chronic 06/08/16) SARA-RCA 06/15/2011, SARA-OM1 06/30/2011, SARA-LAD 08/20/2014, SARA-Prox- RCA 06/08/2016 Atherosclerosis of coronary artery of [place] heart without angina pectoris (Chronic) SARA-RCA 06/15/2011, SARA-OM1 06/30/2011, SARA-LAD 08/20/2014, SARA-Prox- RCA 06/08/2016 Paroxysmal atrial fibrillation (Chronic) Hyperlipidemia (Chronic) Type II diabetes mellitus (Chronic) STEMI (ST elevation myocardial infarction) (Chronic) Cardiomyopathy, ischemic (Chronic) Hospital Course and Treatment Imaging Results: Diagnostic Data Chest X-Ray 05/05/19 19:30 IMPRESSION: Findings concerning for congestive heart failure. Indeterminate right basilar opacity may be secondary to underlying atelectasis and/or evolving pneumonia. Electronically Signed: Melani Thompson MD at 19:51 EST Tel , Service support , Operations: None Procedures: None Summary of Care Provided: The patient is a 68 year old M admitted 05/05/2019 due to shortness of breath and leg swelling. 1. Acute on chronic chronic heart failure with reduced ejection fraction with associated acute hypoxic respiratory insufficiency-BNP 300. Chest x-ray consistent with CHF. Continue supplement oxygen to maintain O2 at or above 90%. IV Lasix during admission. Recent normal stress test earlier in April. Continue an wraps bilateral lower extremities. Suspect CHF exacerbated by A. fib with RVR on admission. Continue home Lasix regimen. Additionally started on Aldactone. Follow-up with cardiology as scheduled, 05/15/2019. 2. Atrial fibrillation with RVR, paroxysmal atrial fibrillation-rate now controlled, continue carvedilol, amiodarone, Eliquis. Patient has upcoming follow-up with cardiology, Dr. Butler 05/15/2019. Patient may require further discussion regarding ablation versus permanent pacemaker. He has not responded to cardioversion in the past. 3. Urinary retention-straight cath for greater than 1 L. Initiated on Proscar, allergy to Flomax. Voiding trial prior to discharge. If patient continues to have urinary retention, plan to discharge with Avery catheter and follow-up with urology. 4. Hypertension-stable, continue carvedilol, Lasix, isosorbide, losartan, hydralazine regimen. Initiated on Aldactone by cardiology as well. 5. YOMI on Chronic kidney disease stage III-YOMI secondary to IV diuretic regimen. Return to home Lasix oral regimen. Recommend repeat BMP by primary care provider at upcoming follow-up. 6. CAD with history of stents-continue aspirin, Eliquis, carvedilol, Plavix, isosorbide, statin, Ranexa, losartan. 7. Type 2 diabetes mellitus-continue home insulin regimen. 8. Chronic cough, history of extensive tobacco use-suspect undiagnosed COPD. Patient reports extensive history of smoking as well as work exposure to other irritants. Recommend establishing with pulmonary medicine, Dr. Frankel or Dr. Go for PFTs and further evaluation. General: Alert, Oriented x3, Cooperative HEENT: Atraumatic, PERRLA, EOMI, Normocephalic Neck: Supple, No JVD, Negative Carotid Bruits Lungs: Clear to auscultation, Diminished Cardiovascular: Regular rate, Regular Rhythm, Normal S1, Normal S2, No murmurs Abdomen: Bowel Sounds Present, Soft, Non Tender, Distended Extremities: No clubbing, No cyanosis, Capillary Refill Less than 3 Seconds, no edema Skin: No rashes, No breakdown Musculoskeletal: No Tenderness to Palpation of Joints or Extremities Neurological: Cranial nerves II-XII grossly intact, Neuro grossly intact Psych/Mental Status: Normal Affect, Appropriate Patient seen and examined prior to discharge. Physical assessment as noted above. Patient is stable for discharge with follow up recommendations as noted above. This patient was seen by WALDEMAR Blair under the supervision of Dr. Purvis. - Physical Exam Vitals/I&O's: Vital Signs Temp Pulse Resp BP Pulse Ox 97.7 F L 98 16 128/77 H 95 05/07/19 09:05 05/07/19 09:05 05/07/19 09:05 05/07/19 09:05 05/07/19 09:05 Oxygen Flow Rate (L/min) 3 Oxygen Delivery Method Room Air Weight: 209 lb 7.026 oz Body Mass Index (BMI) 30.9 Finger Stick Blood Glucose 105 Intake and Output for Last 24 Hours 05/05/19 05/06/19 05/07/19 23:59 23:59 23:59 Intake Total 240 / 240 1520 / 1695 415 / 415 Output Total 700 / 700 3100 / 3600 725 / 725 Balance -460 / -460 -1580 / -1905 -310 / -310 Microbiology Past 72 Hours 05/05/19 20:00 Mucosa - Nasopharyngeal Influenza Types A,B Direct FA (PORSHA) - Final Laboratory Results 05/06/19 06:37: Magnesium 1.9, TSH 3.74 05/06/19 12:12: POC Glucose 252 H 05/06/19 16:59: POC Glucose 299 H 05/06/19 18:20: Urine Color Yellow, Urine Clarity Sl. Cloudy, Urine pH 6.0, Ur Specific [place] 1.010, Urine Protein 30 H, Urine Glucose (UA) 100 H, Urine Ketones Negative, Urine Occult Blood Negative, Urine Nitrite Negative, Urine Bilirubin Negative, Urine Urobilinogen Normal, Ur Leukocyte Esterase Negative, Urine RBC 0 SEEN, Urine WBC 0 SEEN, Ur Squamous Epith Cells 0 SEEN, Urine Bacteria 0 SEEN, Hyaline Casts 0-5 SEEN, Urine Mucus 0 SEEN 05/06/19 21:31: POC Glucose 324 H 05/07/19 04:58: Sodium 132 L, Potassium 3.5, Chloride 95 L, Carbon Dioxide 32.0, Anion Gap 5, BUN 29 H, Creatinine 2.25 H, Estim Creat Clear Calc 32.30, Est GFR (MDRD) Af Amer 38 L, Est GFR (MDRD) Non-Af 31 L, BUN/Creatinine Ratio 12.9, Glucose 294 H, Calcium 8.1 L 05/07/19 06:00: POC Glucose 262 H Current Medications Acetaminophen (Tylenol) 650 mg PO Q6H PRN PRN PRN Reason: Pain Score 1-10/Temp > 100.7 F Last Admin: 05/06/19 12:09 Dose: 650 mg Documented by: Albuterol Sulfate (Ventolin Aerosols) 2.5 mg INHALATION Q4H PRN PRN PRN Reason: Shortness of breath, wheezing Amiodarone HCl (Cordarone) 200 mg PO DAILY [facility] Last Admin: 05/07/19 09:08 Dose: 200 mg Documented by: Apixaban (Eliquis) 2.5 mg PO BID [facility] Last Admin: 05/07/19 09:09 Dose: 2.5 mg Documented by: Aspirin (Aspirin, Baby) 81 mg PO DAILY@0800 [facility] Last Admin: 05/07/19 09:08 Dose: 81 mg Documented by: Carvedilol (Coreg) 25 mg PO BID [facility] Last Admin: 05/07/19 09:08 Dose: 25 mg Documented by: Clopidogrel Bisulfate (Plavix) 75 mg PO DAILY [facility] Last Admin: 05/07/19 09:09 Dose: 75 mg Documented by: Finasteride (Proscar) 5 mg PO DAILY [facility] Last Admin: 05/07/19 09:09 Dose: 5 mg Documented by: Furosemide (Lasix) 80 mg PO DAILY [facility] Last Admin: 05/07/19 09:14 Dose: 80 mg Documented by: Glucagon () 1 mg IM .X1 PRN PRN Reason: Hypoglycemia Hydralazine HCl (Apresoline) 100 mg PO TID [facility] Last Admin: 05/07/19 06:36 Dose: 100 mg Documented by: Dextrose (Dextrose 10%-Water) 250 mls @ 999 mls/hr IV .Q16M PRN; Protocol PRN Reason: HYPOGLYCEMIA Insulin Human Lispro (Humalog Ora (Bkc)) [address] [facility]; Protocol Last Admin: 05/07/19 06:06 Dose: 3 u Documented by: Insulin Human NPH (Humulin N (Bkc)) 15 units SC BID [facility] Last Admin: 05/07/19 09:11 Dose: 15 u Documented by: Isosorbide Mononitrate (Imdur) 120 mg PO BID [facility] Last Admin: 05/07/19 09:08 Dose: 120 mg Documented by: Loratadine (Claritin) 10 mg PO DAILY [facility] Last Admin: 05/07/19 09:10 Dose: 10 mg Documented by: Losartan Potassium (Cozaar) 100 mg PO DAILY [facility] Last Admin: 05/07/19 09:10 Dose: 100 mg Documented by: Ondansetron HCl (Zofran) 4 mg IV Q8H PRN PRN PRN Reason: NAUSEA/VOMITING Oxycodone HCl (Oxyir) 5 mg PO Q4H PRN PRN PRN Reason: Pain Score 6-10/10 Last Admin: 05/06/19 21:49 Dose: 5 mg Documented by: Pantoprazole Sodium (Protonix) 40 mg PO BID [facility] Last Admin: 05/07/19 09:10 Dose: 40 mg Documented by: Pravastatin Sodium (Pravachol) 40 mg PO QHS [facility] Last Admin: 05/06/19 21:36 Dose: 40 mg Documented by: Ranolazine (Ranexa) 500 mg PO BID [facility] Last Admin: 05/07/19 09:10 Dose: 500 mg Documented by: Sodium Chloride () 10 - 40 ml IV UD PRN PRN Reason: SALINE FLUSH Spironolactone (Aldactone) 25 mg PO DAILY [facility] Last Admin: 05/07/19 09:14 Dose: 25 mg Documented by: Zolpidem Tartrate (Ambien (Generic)) 5 mg PO QHS PRN PRN PRN Reason: INS Discharge Diet: Low fat/ Low Cholesterol, 8 Cup Fluid Restriciton, 2000 mg Sodium Diet Discharge Activity: Return to Normal Activity Call your doctor if you observe: Shortness of breath, Dizziness, Fainting spells, Chest pain Home Medications: Medications to take at Discharge Albuterol Sulfate [Ventolin Hfa] 2 puff INHALATION Q4H PRN 03/13/19 Amiodarone HCl [Cordarone] 200 mg PO DAILY 03/13/19 Apixaban [Eliquis] 2.5 mg PO BID 03/13/19 Aspirin [Aspirin, Baby] 81 mg PO DAILY@0800 03/13/19 Carvedilol [Coreg] 25 mg PO BID 03/13/19 Clopidogrel Bisulfate [Plavix] 75 mg PO DAILY 03/13/19 Furosemide [Lasix] 80 mg PO DAILY 03/13/19 Isosorbide Mononitrate [Isosorbide Mononitrate ER] 120 mg PO BID 03/13/19 Loratadine 10 mg PO DAILY 03/13/19 Losartan Potassium [Cozaar] 100 mg PO DAILY 03/13/19 Pantoprazole Sodium [Protonix] 40 mg PO BID 03/13/19 Pravastatin Sodium 40 mg PO QHS 03/13/19 Ranolazine [Ranolazine ER] 500 mg PO BID 03/13/19 Esomeprazole Mag Trihydrate [Nexium] 40 mg PO BID #20 cap 03/15/19 Insulin NPH Human Isophane [Novolin N] 15 unit SQ BID 04/20/19 Hydralazine HCl 100 mg PO TID 05/05/19 Finasteride [Proscar] 5 mg PO DAILY #30 tab 05/07/19 Spironolactone [Aldactone] 25 mg PO DAILY #30 tab 05/07/19 Following Prescrptions Were Given to Patient: Spironolactone [Aldactone] 25 mg PO DAILY #30 tab Transmission Status: Pending to [facility] #40 Finasteride [Proscar] 5 mg PO DAILY #30 tab Transmission Status: Pending to [facility] #40 Primary Care Physician: Jennifer Spicer DO [Primary Care Provider] - Please follow up with your Primary Care Physician in: As scheduled 05/17 Please Follow Up With: Marco Antonio Butler MD When: as scheduled 05/15 Please Follow Up With: Robert Almonte MD When: call for appt if further issues with urinary retention Please Follow Up With: Nii Go DO When: call to establish for COPD evaluation Disposition: Home Minutes spent on discharge:: 35 Patient Condition:: Stable Medical Necessity - Tobacco Use Smoking Status: Former smoker Meaningful Use Info Meaningful Use Diagnoses (Choose all that apply): CHF - CHF AN/ARB ordered at discharge?: Yes Documented LVEF (%): 45
[2019-05-07 11:40] LABS: Bedside Glucose 260 mg/dL (70-110)
--- NOTE | 2019-05-07 12:24 | PCM.PN.CARD ---
Subjectve: The patient was evaluated earlier this day. He looked better than yesterday. He states his breathing and his lower extremity edema were better. He has been up in the chair. He voiced no acute symptoms this day. Objective: Vital Signs Temp Pulse Resp BP Pulse Ox 97.7 F L 98 16 128/77 H 95 05/07/19 09:05 05/07/19 09:05 05/07/19 09:05 05/07/19 09:05 05/07/19 10:24 Oxygen Flow Rate (L/min) [ 0 AMBULATING on Room Air] Oxygen Flow Rate (L/min) [At 0 REST on Room Air] Oxygen Flow Rate (L/min) 3 Oxygen Delivery Method Room Air Weight: 209 lb 7.026 oz Body Mass Index (BMI) 30.9 Finger Stick Blood Glucose 105 Intake and Output for Last 24 Hours 05/05/19 05/06/19 05/07/19 23:59 23:59 23:59 Intake Total 240 / 240 1520 / 1695 415 / 415 Output Total 700 / 700 3100 / 3600 925 / 925 Balance -460 / -460 -1580 / -1905 -510 / -510 General: Awake, Alert, Oriented x 3, Cooperative, No Acute Distress HEENT: Atraumatic, Normocephalic, PERRL, EOMI, Sclera Non Icteric Oral: Moist Mucosa Neck: Supple, Good ROM Lungs: Clear to auscultation Cardiovascular: Irregular Rhythm, Normal S1, Normal S2 Abdomen: Bowel Sounds Present, Soft, Non Tender Extremities: Trace RLE Edema, Trace LLE Edema Psych/Mental Status: Appropriate 05/06/19 06:37: Magnesium 1.9 05/06/19 18:20: Urine Color Yellow, Urine Clarity Sl. Cloudy, Urine pH 6.0, Ur Specific [place] 1.010, Urine Protein 30 H, Urine Glucose (UA) 100 H, Urine Ketones Negative, Urine Occult Blood Negative, Urine Nitrite Negative, Urine Bilirubin Negative, Urine Urobilinogen Normal, Ur Leukocyte Esterase Negative, Urine RBC 0 SEEN, Urine WBC 0 SEEN 05/07/19 04:58: Sodium 132 L, Potassium 3.5, Chloride 95 L, Carbon Dioxide 32.0, Anion Gap 5, BUN 29 H, Creatinine 2.25 H, Est GFR (MDRD) Af Amer 38 L, Est GFR (MDRD) Non-Af 31 L, BUN/Creatinine Ratio 12.9, Glucose 294 H, Calcium 8.1 L Rhythm: Atrial flutter Medical Necessity - Tobacco Use Smoking Status: Former smoker Assessment/Plan 1. Acute on chronic systolic mediated CHF The patient appears to be symptomatically improved and on examination improved since his IV diuretic therapy. He is going to continue combined medical management as deemed appropriate. 2. CAD status post PCI The patient has an extensive history of underlying CAD and PCI. At the moment he is without evidence of acute coronary syndrome. He will continue to be monitored as deemed appropriate. He will continue medical management for his underlying CAD process. 3. Ischemic mediated cardiomyopathy Again he does have an underlying ischemic mediated cardiomyopathy. He will continue medical therapy/adjustment. He does have an ICD in place. 4. Paroxysmal atrial fibrillation/flutter He appears to be remaining in atrial fibrillation/flutter rhythm. He has continued rate control therapy and antiarrhythmic therapy and 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 therapy. Again if this is a contributing factor to his recurrent acute on chronic systolic mediated CHF events that he may need to be considered for either atrial arrhythmia ablation versus an AV node ablation with permanent pacemaker backup supplied by his ICD. 5. ICD He does have an ICD in place. It has been evaluated in the past and has been functioning appropriately. It can be reassessed as needed. 6. Hyperlipidemia He will continue medical management. 7. Hypertension His blood pressure will be followed and his medications can be adjusted as needed. 8. Diabetes mellitus He will continue evaluation care as deemed appropriate. 9. Chronic renal insufficiency He will continue medical therapy with follow-up of his electrolytes and renal function. His medications may need to be adjusted around his renal function, etc. Overall, at the present time, the patient is continuing medical management with adjustment as needed. He will need to follow-up as an outpatient with his primary motors and controls tester, Dr. Butler, to discuss his ongoing medical care and the possibility of future EP consultation for possible atrial dysrhythmia ablation or AV node ablation in order to assist with rate control that may assist with his recurrent CHF episodes. The patient's case has been previously discussed with the patient and Dr. Purvis. This note was generated using a voice recognition system and there may be incorrect words, spelling or punctuation that were not noted when reviewing the office note prior to saving.
--- NOTE | 2019-05-08 12:37 | CASEMGMT ---
Case Management DC F/u Call: DC Date: Wednesday05/07/2019 DC Diagnosis: 1. Acute on chronic chronic heart failure with reduced ejection fraction with associated acute hypoxic respiratory insufficiency 2. Atrial fibrillation with RVR, paroxysmal atrial fibrillation 3. Urinary retention 4. Hypertension 5. YOMI on Chronic kidney disease stage III 6. CAD with history of stents 7. Type 2 diabetes mellitus 8. Chronic cough, history of extensive tobacco use-suspect undiagnosed COPD. DC Disposition: Home Lace/Strata: 17/07 Called patient listed Cell Phone number on demographics, no answer, VM unable to identify correct patient and therefore no VM left. Gen Eric RNCM
== END 2019-05-07 15:04 | disposition home or self-care (01) | DRG 291 ==
LOC: ED 21:52 → PCU 22:40
PROVIDERS: Nurse Practitioner Family; Admitting Provider Hospitalist; Emergency Provider Emergency Medicine; Referring Provider Hospitalist; Visit Provider Family Medicine
DX: I13.0 Hypertensive heart and chronic kidney disease with heart failure and stage 1 through stage 4 chronic kidney disease, or unspecified chronic kidney disease (principal); I50.43 Acute on chronic combined systolic (congestive) and diastolic (congestive) heart failure; I48.92 Unspecified atrial flutter; I47.2 Ventricular tachycardia; E11.22 Type 2 diabetes mellitus with diabetic chronic kidney disease; N18.3 Chronic kidney disease, stage 3 (moderate); D63.1 Anemia in chronic kidney disease; Z79.4 Long term (current) use of insulin; I25.5 Ischemic cardiomyopathy; R33.9 Retention of urine, unspecified; I48.0 Paroxysmal atrial fibrillation; I25.10 Atherosclerotic heart disease of native coronary artery without angina pectoris; I27.21 Secondary pulmonary arterial hypertension; I25.2 Old myocardial infarction; J44.9 Chronic obstructive pulmonary disease, unspecified; E78.5 Hyperlipidemia, unspecified; E66.9 Obesity, unspecified; R09.02 Hypoxemia; Z68.30 Body mass index [BMI] 30.0-30.9, adult; Z95.5 Presence of coronary angioplasty implant and graft; Z95.810 Presence of automatic (implantable) cardiac defibrillator; Z79.01 Long term (current) use of 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s; Z79.02 Long term (current) use of antithrombotics/antiplatelets; Z79.899 Other long term (current) drug therapy; Z86.718 Personal history of other venous thrombosis and embolism; Z87.891 Personal history of nicotine dependence
CPT/HCPCS: 36415; 71045; 80048; 81001; 82962; 83735; 83880; 84443; 84484; 85025; 85610; 87086; 87804; 93005; 94640; 97162; 97165; 99251; 99282; A4216; G0463; J1940

== ENCOUNTER → 2019-05-29 11:49 | Outpatient (CLI) | payer MEDICARE, SELFPAY ==
[2016-06-12 14:02] VITALS: BMI 29.7
[2019-05-15 14:59] VITALS: BMI 30.2
[2019-05-29 13:50] LABS: Absolute Lymphocyte Count 0.66 X10^3/uL (0.83-4.51); Absolute Neutrophil Count 6.1 X10^3/uL (2.0-7.7); Basophil# 0.06 X10^3/uL; Basophil% 0.8 % (0-1); Eosinophil# 0.19 X10^3/uL; Eosinophils% 2.4 % (0-5); Hematocrit 44.1 % (40-54); Hemoglobin 13.8 g/dL (13.0-16.5); Lymphocyte # 0.66 X10^3/ul (4.0); Lymphocyte % 8.3 % (19-41); Mean Corp Hgb Conc 31.3 g/dL (32-36); Mean Corpuscular Hgb 27.4 pg (27.0-32.0); Mean Corpuscular Volume 87.5 fL (80-94); Mean Platelet Vol. 9.3 fl (6.2-12.0); Monocyte# 0.85 X10^3/uL; Monocyte% 10.7 % (0-10); NRBC Flagged by Analyzer 0 % (0-5); Neutrophil # 6.06 X10^3/uL (2.7-7.7); Neutrophil % 75.9 % (47-70); Platelet Count 265 K/mm3 (150-450); RBC Distribution Width CV 14.5 % (11.6-14.6); RBC Distribution Width SD 46.1 fl (35.1-43.9); Red Blood Count 5.04 M/mm3 (4.6-6.2)
[2019-05-29 14:24] LABS: Anion Gap 8 (5-15); BUN 30 mg/dL (7-18); BUN/Creat Ratio 12.2 RATIO (10-20); Calcium,Total 7.8 mg/dL (8.5-10.1); Chloride 95 mmol/L (98-107); Creatinine, Serum 2.45 mg/dL (0.70-1.30); EST Glomerular Filtration Rate 28 mL/min (>60); Est Glom Filt Rate - Afr Amer 34 mL/min (>60); Glucose 315 mg/dL (74-106); Potassium 3.4 mmol/L (3.5-5.1); Sodium Level 132 mmol/L (136-145)
== END ==
LOC: LAB 11:51
PROVIDERS: PCP Family Medicine; Referring Provider Internal Medicine Cardiovascular Disease; Visit Provider Internal Medicine Cardiovascular Disease
DX: E78.5 Hyperlipidemia, unspecified (principal); I25.5 Ischemic cardiomyopathy
CPT/HCPCS: 36415; 80048; 85025

== ENCOUNTER → 2019-06-12 09:07 | Outpatient (CLI) | payer MEDICARE, SELFPAY ==
[2016-06-12 14:02] VITALS: BMI 29.7
[2019-05-15 14:59] VITALS: BMI 30.2
[2019-06-12 13:07] LABS: Anion Gap 7 (5-15); BUN 21 mg/dL (7-18); BUN/Creat Ratio 11.5 RATIO (10-20); Calcium,Total 8.2 mg/dL (8.5-10.1); Chloride 101 mmol/L (98-107); Creatinine, Serum 1.82 mg/dL (0.70-1.30); EST Glomerular Filtration Rate 40 mL/min (>60); Est Glom Filt Rate - Afr Amer 48 mL/min (>60); Glucose 301 mg/dL (74-106); Potassium 4.3 mmol/L (3.5-5.1); Sodium Level 135 mmol/L (136-145)
== END ==
LOC: BFHLAB 09:07
PROVIDERS: PCP Family Medicine; Visit Provider Family Medicine
DX: N28.9 Disorder of kidney and ureter, unspecified (principal); I10 Essential (primary) hypertension
CPT/HCPCS: 36415; 80048

== ENCOUNTER 2019-06-14 17:03 | Emergency (ER) | payer MEDICARE, SELFPAY ==
[2016-06-12 14:02] VITALS: BMI 29.7
[2019-05-15 14:59] VITALS: BMI 30.2
[2019-06-14 17:04] VITALS: BP 169/111; PULSE 87; RESP 20; TEMP 36.6; O2SAT 95; BMI 30.4
--- NOTE | 2019-06-14 17:57 | CT_ITS ---
STUDY: CT BRAIN WITHOUT CONTRAST REASON FOR EXAM: Male, 68 years old. Trauma weakness RADIATION DOSAGE (If Supplied By Facility): CTDIvol = ( 44.99 ) mGy, DLP = ( 812.98 ) mGycm TECHNIQUE: Transaxial CT imaging of the brain was performed without administration of intravenous contrast material. Individualized dose optimization techniques were used for this CT. COMPARISON: 13 March 2019 FINDINGS: Brain parenchyma is without focal lesions, mass effect, acute intracranial hemorrhage, extra parenchymal fluid collections, hydrocephalus or herniation. There is mild age-appropriate white matter periventricular involutional hypodensity. The skull is intact. CT/Brain/Head without Contrast IMPRESSION: 1. No acute or focal findings. 2. No change since prior. 3. Mild age related white matter involutional change. Electronically Signed: Randy Roche, at 18:55 EDT Tel , Service support ,
--- NOTE | 2019-06-14 17:57 | EKG12_ITS ---
Test Reason : CP Blood Pressure : / mmHG Vent. Rate : 088 BPM Atrial Rate : 249 BPM P-R Int : 000 ms QRS Dur : 098 ms QT Int : 422 ms P-R-T Axes : 120 -36 -03 degrees QTc Int : 510 ms Atrial flutter with variable A-V block Left axis deviation Inferior infarct (cited on or before 07-JAN-2018) Anterolateral infarct , age undetermined Abnormal ECG Confirmed by LUPE METZ, LARRY ([id number]), editor managing director MELLISSA HOPKINS ([id number]) on 06/16/2019 1:01:59 PM Referred By: MEMO Confirmed By:SEFERINO ANDRADE MD
--- NOTE | 2019-06-14 17:58 | CT_ITS ---
STUDY: CT CERVICAL SPINE WITHOUT CONTRAST REASON FOR EXAM: Male, 68 years old. Trauma RADIATION DOSAGE (If Supplied By Facility): CTDIvol = ( 29.52 ) mGy, DLP = ( 624.79 ) mGycm TECHNIQUE: High resolution transaxial imaging was performed without contrast material. Sagittal and coronal images were reconstructed. Individualized dose optimization techniques were used for this CT. COMPARISON: None FINDINGS: Craniocervical junction and cervical spine are intact and aligned. Mineralization is normal. Paraspinous soft tissues are normal. Spinal canal is patent at all levels. There is irregularity of the thyroid with enlargement. CT/Spine Cervical without Contras IMPRESSION: 1. No acute osseous injury. 2. Thyroid enlargement and nodularity, refer to ultrasonography. Electronically Signed: Randy Roche, at 19:00 EDT Tel , Service support ,
--- NOTE | 2019-06-14 17:58 | RAD_ITS ---
STUDY: X-RAY - LEFT WRIST REASON FOR EXAM: Male, 68 years old. Trauma TECHNIQUE: 3 view(s) of the wrist were obtained. COMPARISON: None. FINDINGS: The bones of the wrist are intact and located. Mineralization is normal. Soft tissues are intact. RAD/Wrist min 3 Views IMPRESSION: 1. Unremarkable wrist. Electronically Signed: Randy Roche, at 19:08 EDT Tel , Service support ,
--- NOTE | 2019-06-14 17:58 | RAD_ITS ---
STUDY: X-RAY CHEST REASON FOR EXAM: Male, 68 years old. FALL, PAIN TECHNIQUE: Frontal and lateral views of the chest COMPARISON: 2019 FINDINGS: There are ill-defined right lower lung and left midlung opacities variably visualized between frontal and lateral views, likely atelectasis. There is no pneumothorax, pulmonary edema, or pleural effusions. There is mild cardiomegaly. Pacemaker is present in the left upper chest with intact lead terminating in the right ventricle. Appearance is similar to prior. RAD/Chest PA and Lateral IMPRESSION: Atelectasis, otherwise unremarkable chest radiography. Mild chronic cardiomegaly, no acute pulmonary edema. Electronically Signed: Randy Roche, at 19:04 EDT Tel , Service support ,
--- NOTE | 2019-06-14 17:59 | RAD_ITS ---
STUDY: X-RAY - PELVIS AND RIGHT HIP REASON FOR EXAM: Male, 68 years old. FALL, PAIN TECHNIQUE: 3 views of the pelvis and hip. COMPARISON: None. FINDINGS: There is a non-specific bowel gas pattern. Normal visualized soft tissue structures. Normal bilateral iliac wings, sacroiliac joints and visualized sacrum. Normal bilateral superior and inferior pubic rami. Normal pubic symphysis. Normal bilateral ischial tuberosities. Normal visualized femoral head. Normal acetabulum. Normal hip joint. There is mild arterial atherosclerosis RAD/HIP, UNI W/ Pelvis 2-3 Views IMPRESSION: Normal x-ray examination of the pelvis and hip. Electronically Signed: Randy Roche, at 19:10 EDT Tel , Service support ,
[2019-06-14 18:16] VITALS: BP 176/111; PULSE 89; RESP 16
[2019-06-14] MEDS: Ondansetron 4 MG/2 ML Vial IV (18:28)
[2019-06-14] MEDS: Morphine 4 MG/ML Syringe IV (18:28)
[2019-06-14 18:44] LABS: Absolute Lymphocyte Count 0.64 X10^3/uL (0.83-4.51); Absolute Neutrophil Count 6.7 X10^3/uL (2.0-7.7); Basophil# 0.06 X10^3/uL; Basophil% 0.7 % (0-1); Eosinophil# 0.09 X10^3/uL; Eosinophils% 1.1 % (0-5); Hematocrit 41.5 % (40-54); Hemoglobin 13.1 g/dL (13.0-16.5); Lymphocyte # 0.64 X10^3/ul (4.0); Lymphocyte % 7.6 % (19-41); Mean Corp Hgb Conc 31.6 g/dL (32-36); Mean Corpuscular Hgb 26.9 pg (27.0-32.0); Mean Corpuscular Volume 85.2 fL (80-94); Mean Platelet Vol. 9.5 fl (6.2-12.0); Monocyte# 0.82 X10^3/uL; Monocyte% 9.7 % (0-10); NRBC Flagged by Analyzer 0 % (0-5); Neutrophil # 6.74 X10^3/uL (2.7-7.7); Neutrophil % 79.6 % (47-70); Platelet Count 199 K/mm3 (150-450); RBC Distribution Width CV 15.3 % (11.6-14.6); RBC Distribution Width SD 46.8 fl (35.1-43.9); Red Blood Count 4.87 M/mm3 (4.6-6.2); White Blood Count 8.5 K/mm3 (4.4-11.0)
[2019-06-14 19:03] LABS: Anion Gap 4 (5-15); BUN 28 mg/dL (7-18); BUN/Creat Ratio 15.1 RATIO (10-20); Calcium,Total 8.3 mg/dL (8.5-10.1); Chloride 103 mmol/L (98-107); Creatinine, Serum 1.86 mg/dL (0.70-1.30); EST Glomerular Filtration Rate 39 mL/min (>60); Est Glom Filt Rate - Afr Amer 47 mL/min (>60); Estimated Creatinine Clearance 39.07 ml/min; Glucose 184 mg/dL (74-106); Potassium 3.8 mmol/L (3.5-5.1); Sodium Level 137 mmol/L (136-145)
[2019-06-14 19:17] LABS: BNP,B-Type NATRIURETIC PEPTIDE 218.1 pg/mL (0-100)
[2019-06-14 20:18] VITALS: BP 144/79; PULSE 95; RESP 17; O2SAT 97
--- NOTE | 2019-06-14 20:46 | ED.DCSUM_ITS ---
- ER Visit Summary Date of Service: 06/14/19 Chief Complaint: Shortness of breath History of Present Illness: The patient is a [address] Baxter and Dr. Butler. He reports that he has shortness of breath that began today. He complains of subjective fever and chills. Has had a cough for the past month that is nonproductive. He reports that he is had chest pain off and on for a while. States that it seems to be brought on with walking fast and decreased with rest. Last 15 to 20 minutes. Is 7 out of 10 at worst and 6 out of 10 currently. He does associate complain of associated shortness of breath. Occasional diaphoresis. He denies any nausea or vomiting. Patient reports that approximately 3 hours ago he was coming down the steps and missed a step. He fell and injured his left wrist. He has pain there that is 10 on 10 severity. He denies any blow to the head or loss of consciousness. However, he is on Eliquis. He complains of headache is 5-10 in severity. Complains of neck pain is rated 10 severity. He complains of right hip pain that is 8 out of 10 in severity. He denies any shoulder pain. Physical Examination: Vitals: Stable. Afebrile. Neck: Mild diffuse tenderness to palpation. No point tenderness. Full ROM without difficulty. Back: No vertebral tenderness. General: A&O x 3. NAD. Cardiovascular exam: Regular rate and rhythm, no murmur, rub or gallop. Respiratory exam: Chest nontender. No crepitus. Clear to auscultation bilatera lly. No wheezes or stridor. Abdominal exam: Soft, nontender, nondistended, normal bowel sounds. No pain in RUQ or LUQ specifically. No peritoneal signs. Extremity: Mild tenderness palpation of the distal radius on the left. No soft tissue swelling. No contusion or deformity. Full range of motion with minimal pain. Mild tenderness palpation over the right greater trochanter. He has no pain with internal or external rotation of his hip.. Test Results: EKG is atrial flutter at [address] changes. Troponin 0 0.022. 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 Chem-7 shows glucose 184, BUN 28, creatinine 1.86, calcium of 8.3. CBC shows segmented neutrophils 80, lymphocytes of 8. Clinical Impression(s) from Imaging Studies Brain CT 06/14/19 17:57 IMPRESSION: 1. No acute or focal findings. 2. No change since prior. 3. Mild age related white matter involutional change. Electronically Signed: Randy Roche, at 18:55 EDT Tel , Service support , Cervical Spine CT 06/14/19 17:58 IMPRESSION: 1. No acute osseous injury. 2. Thyroid enlargement and nodularity, refer to ultrasonography. Electronically Signed: Randy Roche, at 19:00 EDT Tel , Service support , Chest X-Ray 06/14/19 17:58 IMPRESSION: Atelectasis, otherwise unremarkable chest radiography. Mild chronic cardiomegaly, no acute pulmonary edema. Electronically Signed: Randy Roche at 19:04 EDT Tel , Service support , Wrist X-Ray 06/14/19 17:58 IMPRESSION: 1. Unremarkable wrist. Electronically Signed: Randy Roche at 19:08 EDT Tel , Service support , Hip/Pelvis X-Ray 06/14/19 17:59 IMPRESSION: Normal x-ray examination of the pelvis and hip. Electronically Signed: Randy Roche at 19:10 EDT Tel , Service support , Emergency Department Course and Treatment: Patient was given dose of morphine and Zofran IV. He is resting comfortably. I reviewed his records. He had a nuclear stress test April 21 of this year that showed no acute disease with an ejection fraction of 35%. Treatment Plan: Patient was discussed with Dr. Butler, his lead informatica developer, he states that he is very familiar with the patient. His last heart catheterization showed coronary artery disease that is not amenable to stenting. Patient was placed on Ranexa which he is still taking. At this time there is no indication for admission to the hospital. Is placed in a Velcro wrist splint. He will be discharged with instructions to follow-up Dr. Miguel in 1 week if his wrist is not improving. Follow-up with Dr. Butler as previously scheduled. Follow-up with his primary care physician in 3 to 5 days for another exam. Return to the emergency department for any worsening symptoms. Disposition: To home in improved and stable condition. Impression: 1 1. Generalized weakness. 2. Fall. 3. Atypical chest pain. 4. Left wrist sprain. 5. Right hip contusion. This note was generated with [email or web address] dictation software. It may contain incorrect words, spelling, and punctuation that were not noted in review of the chart prior to signing ED Disposition - Plan for ED Patient: Disposition: Home or Assisted Living Instructions: WEAKNESS, Unk Cause Referrals: Jennifer Spicer DO [Primary Care Provider] - 1-2 Days if not improving Keli Miguel DO [STAFF PHYSICIAN] - 1 Week if not improving Marco Antonio Butler MD [STAFF PHYSICIAN] - Keep Jaz appointment
== END 2019-06-14 21:16 | disposition home or self-care (01) ==
LOC: ED 18:33
PROVIDERS: Emergency Provider Emergency Medicine; PCP Family Medicine
DX: R53.1 Weakness (principal); R07.89 Other chest pain; S63.502A Unspecified sprain of left wrist, initial encounter; S70.01XA Contusion of right hip, initial encounter; W10.9XXA Fall (on) (from) unspecified stairs and steps, initial encounter; Y93.9 Activity, unspecified; Y92.9 Unspecified place or not applicable; I25.10 Atherosclerotic heart disease of native coronary artery without angina pectoris; I13.0 Hypertensive heart and chronic kidney disease with heart failure and stage 1 through stage 4 chronic kidney disease, or unspecified chronic kidney disease; E11.22 Type 2 diabetes mellitus with diabetic chronic kidney disease; N18.9 Chronic kidney disease, unspecified; I50.9 Heart failure, unspecified; I48.91 Unspecified atrial fibrillation; Z79.82 Long term (current) use of aspirin; Z79.01 Long term (current) use of 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s; Z79.02 Long term (current) use of antithrombotics/antiplatelets; Z79.4 Long term (current) use of insulin
CPT/HCPCS: 70450; 71046; 72125; 73110; 73502; 80048; 83880; 84484; 85025; 93005; 96374; 96375; 99285; A4216; J2405

== ENCOUNTER 2019-08-11 22:51 | Emergency (ER) | payer MEDICARE, SELFPAY ==
[2016-06-12 14:02] VITALS: BMI 29.7
[2019-08-11 22:53] VITALS: BP 162/103; PULSE 90; RESP 18; TEMP 35.5; O2SAT 93; BMI 31.0
--- NOTE | 2019-08-11 23:19 | EKG12_ITS ---
Test Reason : SOB Blood Pressure : / mmHG Vent. Rate : 086 BPM Atrial Rate : 129 BPM P-R Int : 000 ms QRS Dur : 108 ms QT Int : 426 ms P-R-T Axes : 000 -39 063 degrees QTc Int : 509 ms Atrial fibrillation Left axis deviation Inferior infarct , age undetermined Anterior infarct , age undeterrmined Prolonged QT Abnormal ECG Confirmed by BELKIS METZ, JUANJOSE ([id number]), restaurant expeditor CANELO DIETRICH ([id number] on 08/14/2019 3:16:38 PM Referred By: LUCIANO Confirmed By:JUANJOSE TAMAYO MD
[2019-08-11 23:40] VITALS: PULSE 86; RESP 18
[2019-08-11] MEDS: Albuterol 2.5 MG/3 ML VIAL.NEB. INHALATION (23:40)
--- NOTE | 2019-08-11 23:45 | ED.DCSUM_ITS ---
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 Negative for: Fever Chest Pain: Sharp - one episode earlier today, resolved, did not recur, not present now Narrative: Patient has had edema in his legs bilaterally for the last couple days, along with dyspnea with exertion. At baseline he has no edema. He has a history of congestive heart failure and coronary disease, as well as atrial fibrillation for which he is on Eliquis and amiodarone. He has been bleeding from nowhere lately. He has had a cough for a month, no worsening, no fevers or other upper respiratory infection symptoms. He had an episode of chest pain earlier but that was short-lived and nonexertional. It did not radiate and was sharp in nature, nonpleuritic. He denies any GI symptoms. He has orthopnea but that is not new. He has an AICD. His last ejection fraction was 45%. He is on Lasix 80 mg once daily, he has been taking extra doses the last few days but is still swelling. Recent Illness/Hospitalization: No - Past Medical History (1) Atrial fibrillation and flutter Status: Chronic (2) CAD in [place] artery Status: Chronic (3) Stage 3 chronic kidney disease Status: Chronic (4) Essential hypertension Status: Chronic (5) Nonsustained ventricular tachycardia Status: Chronic (6) Chronic systolic CHF (congestive heart failure) Status: Chronic (7) Presence of implantable cardioverter-defibrillator (ICD) Status: Chronic (8) Secondary pulmonary arterial hypertension Status: Chronic (9) Hyperlipidemia Status: Chronic (10) Type II diabetes mellitus Status: Chronic Past Medical History - Allergies and Home Meds Allergies/Adverse Reactions: Allergies diltiazem Allergy (Verified 08/11/19 22:53) LOWER LEG SWELLING tamsulosin [From Flomax] Allergy (Verified 08/11/19 22:53) Shortness of breath/muscle weakness atorvastatin calcium [From Lipitor] Adverse Reaction (Verified 08/11/19 22:53) MUSCLE WEAKNESS Primary Care Physician: Marco Antonio Butler MD [STAFF PHYSICIAN] - 3-5 Days Jennifer Spicer DO [Primary Care Provider] - Doctors: Luke elliott Surgical History: - - s/p stents, AICD. Smoking Status: Former smoker Drugs: None - Family History Maternal Family History: Family History (Last Reviewed 05/15/19 @ 14:59 by Lisette Elizondo) Brother Sudden cardiac Family History: Reports: Hypertension Paternal Family History: Family History (Last Reviewed 05/15/19 @ 14:59 by Lisette Elizondo) Brother Sudden cardiac Family History: Reports: Unknown Sibling Family History: Family History (Last Reviewed 05/15/19 @ 14:59 by Lisette Elizondo) Brother Sudden cardiac Family History: Reports: Heart Disease Review of Systems General: Denies: Chills, Fever, Sweats Eyes: Denies: Visual changes - bilaterally, Diplopia ENT: Denies: Rhinorrhea, Sore throat Cardiovascular: Reports: Chest pain. Denies: Palpitations, Heart racing Respiratory: Reports: Dyspnea, Cough, Dyspnea on exertion, Orthopnea. Denies: Sputum Gastrointestinal: Denies: Abdominal pain, Nausea, Vomiting, Diarrhea, Melena, Hematochezia Genitourinary: Denies: Dysuria, Hematuria, Frequency Musculoskeletal: Reports: Swelling. Denies: Neck pain, Back pain, Extremity Pain Skin: Denies: Rash, Wounds Neurological: Denies: Headache, Weakness, Numbness Physical Exam Vital Signs/Narrative: Vital Signs Temp Pulse Resp BP Pulse Ox 08/11/19 23:40 95 18 08/11/19 22:53 96 F L 90 18 162/103 H 93 Inital Vital Signs reviewed: Yes General: Well nourished, Well developed, No Acute Distress Head: Normocephalic, Atraumatic Eyes: Perrl, EOMI ENT: Moist mucous membranes, No rhinorrhea Neck: Supple, Nontender. Negative for: No JVD - + JVD Cardiovascular: Regular rate, Regular rhythm - With occasional irregularity., No murmurs Respiratory: No distress, CTA bilaterally, Chest nontender, Diminished - Throughout, symmetrically Abdomen: Soft, Nontender, Nondistended, Normal bowel sounds Back: Nontender, Normal Inspection Extremities: Nontender, Edema - 1+ midshin bilateral and symmetric, lower extremities. Negative for: Calf Tenderness Skin: Normal color, No rash, No Trauma Neurological: Alert, Oriented x3, Cranial nerves II-XII grossly intact, Normal Strength, Normal Sensation, Normal Gait Psychological: Normal affect, Normal Mood Diagnostic/Tx/Re-eval Impressions Chest X-Ray 08/12/19 00:01 IMPRESSION: Mild vascular congestion as described. Electronically Signed: Malena Willis MD at 0:25 EDT , Service support , 08/12/19 00:01 Chest 1 View (Portable) [RAD] Stat Laboratory Results 08/11/19 08/11/19 08/11/19 23:55 23:55 23:55 WBC 8.1 RBC 4.83 Hgb 13.0 Hct 41.5 MCV 85.9 MCH 26.9 L MCHC 31.3 L RDW Std Deviation 51.8 H RDW Coeff of [place] 16.9 H Plt Count 248 MPV 9.6 Immature Gran % (Auto) 1.000 H Neut % (Auto) 78.3 H Lymph % (Auto) 8.2 L Wilkinson % (Auto) 10.5 H Eos % (Auto) 1.5 Baso % (Auto) 0.5 Absolute Neuts (auto) 6.4 Absolute Lymphs (auto) 0.67 L Nucleated RBC % 0 Sodium 138 Potassium 3.8 Chloride 104 Carbon Dioxide 26.0 Anion Gap 8 BUN 20 H Creatinine 1.73 H Estim Creat Clear Calc 42.00 Est GFR (MDRD) Af Amer 51 L Est GFR (MDRD) Non-Af 42 L BUN/Creatinine Ratio 11.6 Glucose 173 H Calcium 8.3 L Troponin I 0.016 B-Natriuretic Peptide 320.2 H - Rhythm Strip Rhythm Strip: A-fib Rate: 85 - EKG Initial EKG Interpretation: No Acute Injury Pattern, Atrial Fibrillation, LAFB Prior: Unchanged Treatment - Dyspnea: Albuterol, - - Lasix Repeat Evaluation: - - not dyspneic at rest With Ambulation: Asymptomatic - Medical Decision Making Patient was given 80 Lasix IV and an albuterol nebulizer. With ambulation he was much better. Nurses walked him along the way. Near the end of that he was down to 88%, without dyspnea, and he recovered very quickly. He prefers to go home. I think that is okay. I discussed with Dr. Paul who advised leaving him on Lasix 80 mg twice daily until he can follow-up after the weekend. Patient is asymptomatic at rest without dyspnea or chest pain right now. His enzymes are negative, he has chronic renal insufficiency with his creatinine actually be tter than in the past at 1.73 now. We discussed reasons to return to the ER and he is okay with that. ED Disposition - Plan for ED Patient: Disposition: Home or Assisted Living Diagnosis: Systolic CHF, acute on chronic, Stage 3 chronic kidney disease Instructions: ED CHF General Referrals: Jennifer Spicer DO [Primary Care Provider] - Marco Antonio Butler MD [STAFF PHYSICIAN] - 3-5 Days Additional Instructions: Per cardiology, continue on Lasix 80 mg twice daily for now, try to limit your fluid intake unless you feel like you are going to pass out when you stand up, which you should do slowly. Follow-up after the weekend. Return to the ER for worsening symptoms or shortness of breath becomes worse while resting.
[2019-08-11] MEDS: Furosemide 100 MG/10 ML Vial 80 MG IV (23:47)
--- NOTE | 2019-08-12 00:01 | RAD_ITS ---
STUDY: X-RAY CHEST REASON FOR EXAM: Male, 68 years old. B/L LOWER LEG EDEMA, INCREASING SHORTNESS OF BREATH TECHNIQUE: Single AP portable view of the chest. COMPARISON: 06/14/2019. FINDINGS: There is a left-sided single lead pacemaker in place. The lungs are normally expanded with subtle groundglass densities within the left lung field. Central markings which may indicate vascular congestion. There is no demonstrated pleural abnormality. Normal size heart. Normal mediastinum and loco. Normal visualized aortic arch and descending thoracic aorta. Normal visualized thoracic spine. Normal visualized ribs, clavicles, and shoulders. There is no demonstrated abnormality of the visualized soft tissue structures of the upper abdomen. RAD/Chest 1 View (Portable) IMPRESSION: Mild vascular congestion as described. Electronically Signed: Malena Willis MD at 0:25 EDT , Service support ,
[2019-08-12 00:02] VITALS: BP 163/100; PULSE 90; RESP 19; O2SAT 94
[2019-08-12 00:10] LABS: Absolute Lymphocyte Count 0.67 X10^3/uL (0.83-4.51); Absolute Neutrophil Count 6.4 X10^3/uL (2.0-7.7); Basophil# 0.04 X10^3/uL; Basophil% 0.5 % (0-1); Eosinophil# 0.12 X10^3/uL; Eosinophils% 1.5 % (0-5); Hematocrit 41.5 % (40-54); Lymphocyte # 0.67 X10^3/ul (4.0); Lymphocyte % 8.2 % (19-41); Mean Corp Hgb Conc 31.3 g/dL (32-36); Mean Corpuscular Hgb 26.9 pg (27.0-32.0); Mean Corpuscular Volume 85.9 fL (80-94); Mean Platelet Vol. 9.6 fl (6.2-12.0); Monocyte# 0.85 X10^3/uL; Monocyte% 10.5 % (0-10); NRBC Flagged by Analyzer 0 % (0-5); Neutrophil # 6.37 X10^3/uL (2.7-7.7); Neutrophil % 78.3 % (47-70); Platelet Count 248 K/mm3 (150-450); RBC Distribution Width CV 16.9 % (11.6-14.6); RBC Distribution Width SD 51.8 fl (35.1-43.9); Red Blood Count 4.83 M/mm3 (4.6-6.2); White Blood Count 8.1 K/mm3 (4.4-11.0)
[2019-08-12 00:38] LABS: Anion Gap 8 (5-15); BUN 20 mg/dL (7-18); BUN/Creat Ratio 11.6 RATIO (10-20); Calcium,Total 8.3 mg/dL (8.5-10.1); Chloride 104 mmol/L (98-107); Creatinine, Serum 1.73 mg/dL (0.70-1.30); EST Glomerular Filtration Rate 42 mL/min (>60); Est Glom Filt Rate - Afr Amer 51 mL/min (>60); Glucose 173 mg/dL (74-106); Potassium 3.8 mmol/L (3.5-5.1); Sodium Level 138 mmol/L (136-145)
[2019-08-12 00:52] LABS: BNP,B-Type NATRIURETIC PEPTIDE 320.2 pg/mL (0-100)
[2019-08-12 00:57] VITALS: BP 156/100; PULSE 92; RESP 23; O2SAT 97
[2019-08-12 01:07] VITALS: O2SAT 96
[2019-08-12 01:15] VITALS: O2SAT 96
== END 2019-08-12 01:30 | disposition home or self-care (01) ==
PROVIDERS: Emergency Provider Emergency Medicine; PCP Family Medicine
DX: I13.0 Hypertensive heart and chronic kidney disease with heart failure and stage 1 through stage 4 chronic kidney disease, or unspecified chronic kidney disease (principal); E11.22 Type 2 diabetes mellitus with diabetic chronic kidney disease; I50.23 Acute on chronic systolic (congestive) heart failure; N18.3 Chronic kidney disease, stage 3 (moderate); I48.91 Unspecified atrial fibrillation; I25.10 Atherosclerotic heart disease of native coronary artery without angina pectoris; I27.21 Secondary pulmonary arterial hypertension; E78.5 Hyperlipidemia, unspecified; Z95.810 Presence of automatic (implantable) cardiac defibrillator; Z79.01 Long term (current) use of 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s; Z79.4 Long term (current) use of insulin; Z79.82 Long term (current) use of aspirin; Z79.899 Other long term (current) drug therapy; Z87.891 Personal history of nicotine dependence
CPT/HCPCS: 71045; 80048; 83880; 84484; 85025; 93005; 94640; 96374; 99285; A4216; J1940

== ENCOUNTER 2019-08-14 21:46 | Observation (INO) | payer MEDICARE, SELFPAY ==
[2016-06-12 14:02] VITALS: BMI 29.7
[2019-08-14 21:46] VITALS: PULSE 94; RESP 18; TEMP 36.2; O2SAT 95; BMI 31.0
[2019-08-14 21:54] VITALS: BP 180/112; PULSE 94; RESP 18; TEMP 36.2; O2SAT 95
--- NOTE | 2019-08-14 22:30 | EKG12_ITS ---
Test Reason : CP Blood Pressure : / mmHG Vent. Rate : 098 BPM Atrial Rate : 278 BPM P-R Int : 000 ms QRS Dur : 112 ms QT Int : 408 ms P-R-T Axes : 000 -44 089 degrees QTc Int : 520 ms Atrial flutter with variable A-V block Left axis deviation Inferior infarct , age undetermined Cannot rule out Anterior infarct , age undetermined Prolonged QT Abnormal ECG Confirmed by MCKENZIE SILVA ([id number]), online editor CANELO DIETRICH ([id number]) on 08/21/2019 1:43:33 PM Referred By: Confirmed By:MCKENZIE SILVA
--- NOTE | 2019-08-14 22:38 | RAD_ITS ---
STUDY: X-RAY CHEST REASON FOR EXAM: Male, 68 years old. CHEST PAIN AND SOB TECHNIQUE: Single frontal view of the chest. COMPARISON: August 12, 2019 FINDINGS: There are bibasilar patchy opacities. There are prominent interstitial markings. Normal size heart. There is perihilar fullness. Normal visualized aortic arch and descending thoracic aorta. There is a cardiac pacer device in place. Normal visualized thoracic spine. Normal visualized ribs, clavicles, and shoulders. There is no demonstrated abnormality of the visualized soft tissue structures of the upper abdomen. RAD/Chest 1 View (Portable) IMPRESSION: Bibasilar patchy opacities may be secondary to underlying pneumonia. Prominent interstitial markings, a nonspecific finding may reflect interstitial edema. Electronically Signed: Melani Thompson MD at 23:19 EDT Tel , Service support ,
[2019-08-14 22:46] VITALS: BP 168/94; PULSE 91; RESP 18; O2SAT 96
[2019-08-14 22:54] VITALS: BP 168/94; PULSE 91; RESP 18; TEMP 36.6; O2SAT 96
[2019-08-14 23:00] VITALS: BP 168/94; PULSE 91; RESP 18; TEMP 36.6; O2SAT 96
[2019-08-14 23:29] LABS: Absolute Lymphocyte Count 0.55 X10^3/uL (0.83-4.51); Absolute Neutrophil Count 8.1 X10^3/uL (2.0-7.7); Basophil# 0.03 X10^3/uL; Basophil% 0.3 % (0-1); Hematocrit 41.6 % (40-54); Lymphocyte # 0.55 X10^3/ul (4.0); Lymphocyte % 5.6 % (19-41); Mean Corp Hgb Conc 31.3 g/dL (32-36); Mean Corpuscular Hgb 26.7 pg (27.0-32.0); Mean Corpuscular Volume 85.6 fL (80-94); Mean Platelet Vol. 9.1 fl (6.2-12.0); Monocyte# 0.92 X10^3/uL; Monocyte% 9.4 % (0-10); NRBC Flagged by Analyzer 0 % (0-5); Neutrophil # 8.07 X10^3/uL (2.7-7.7); POSITIVE DIFFERENTIAL YES; Platelet Count 235 K/mm3 (150-450); RBC Distribution Width CV 17.4 % (11.6-14.6); RBC Distribution Width SD 52.1 fl (35.1-43.9); Red Blood Count 4.86 M/mm3 (4.6-6.2); White Blood Count 9.7 K/mm3 (4.4-11.0)
[2019-08-14 23:34] LABS: Anion Gap 8 (5-15); BUN 23 mg/dL (7-18); BUN/Creat Ratio 13.5 RATIO (10-20); Calcium,Total 8.4 mg/dL (8.5-10.1); Chloride 102 mmol/L (98-107); Creatinine, Serum 1.71 mg/dL (0.70-1.30); Differential Indicated SCAN CRITERIA MET; EST Glomerular Filtration Rate 43 mL/min (>60); Est Glom Filt Rate - Afr Amer 52 mL/min (>60); Estimated Creatinine Clearance 42.49 ml/min; Glucose 169 mg/dL (74-106); Potassium 3.3 mmol/L (3.5-5.1); Sodium Level 139 mmol/L (136-145)
[2019-08-14 23:42] LABS: Lactic Acid 1.6 mmol/L (0.4-1.9)
--- NOTE | 2019-08-14 23:44 | ED.DCSUM_ITS ---
- ER Visit Summary Date of Service: 08/14/19 Chief Complaint: Chest pain History of Present Illness: The patient is a [address] Butler and Dr. Spicer. He reports that he has chest pain that began 3:00 this afternoon while he was at rest. States it is an intermittent pain lasts minutes at a time. He describes it as an aching and throbbing. Is 9 at 10 at worst and is pain-free currently. Is worsened by exertion or laying on my left side. It is relieved by taking it easy. States that it is occurring every 15 to 20 minutes. He is had nausea without vomiting. Does report his been short of breath. No diaphoresis. Patient reports that he was here 3 days ago for increased lower extremity edema. He had his Lasix increased from 80 mg once a day to 80 mg twice a day. He is taken 3 doses of this. He reports that tonight his leg swelling seems to be worsened again. Does have a history of atrial fibrillation. He is taking his Eliquis. Physical Examination: Vitals: Stable. Afebrile. General: Well-nourished and well-developed. Head: Normocephalic atraumatic. Neck: Supple, no lymphadenopathy. No JVD. Nontender. Cardiovascular: Irregularly irregular rhythm with a 2 out of 6 stock murmur. Respiratory: No respiratory distress. Clear to auscultation bilaterally. Abdominal: Soft, nontender, nondistended, normal bowel sounds. No guarding, rebound, or peritoneal signs. Back: Nontender. Extremities: Nontender, trace pedal edema of his lower extremities bilaterally. Skin: Normal color, no rash. Neurologic: Alert and oriented ?3. Cranial nerves II through XII are intact. Normal strength and sensation. Psych: Normal affect. Test Results: EKG is a flutter at 98. Is unchanged from August 10. CBC shows segmented neutrophils 83 lymphocytes of 6. Chem-7 shows a potassium 3.3, glucose 169, BUN 23, creatinine 1.71. Troponin is 0.032. This was 0.0163 days ago. BNP is 279.5. Lactic acid is 1.6. Chest x-ray is read by radiology as bibasilar patchy infiltrates, prominent interstitial markings. Emergency Department Course and Treatment: Patient had taken 80 mg of Lasix this evening. He is not given more Lasix here. He was given aspirin p.o. I had a prolonged discussion with him about his cough. Reports he has a chronic cough that has worsened today. It is nonproductive. He denies fever or chills. He does not have a white count. In my opinion the patient does not have pneumonia and his chest x-ray looks essentially unchanged from prior. He is not treated with antibiotics. Treatment Plan: Patient was discussed with Dr. Gray. He will be admitted to the hospital for further evaluation and treatment. Disposition: Admitted in stable condition. Impression: 1. Atypical chest pain. 2. KATELYN score of 5. 3. URI. 4. Coagulopathy on Eliquis. This note was generated with [employer] dictation software. It may contain incorrect words, spelling, and punctuation that were not noted in review of the chart prior to signing ED Disposition - Plan for ED Patient:
[2019-08-14 23:52] LABS: BNP,B-Type NATRIURETIC PEPTIDE 279.5 pg/mL (0-100)
[2019-08-15] VITALS (11 sets, daily range): BP systolic 163–176; BP diastolic 93–105; PULSE 86–100; RESP 18; TEMP 36.6–36.7; O2SAT 90–96; BMI 30.1
--- NOTE | 2019-08-15 01:16 | PCM.HP.STD ---
Problem List (1) Chest pain Status: Acute (2) Systolic CHF, acute on chronic Status: Chronic (3) Atrial fibrillation and flutter Status: Chronic (4) CAD in [place] artery Status: Chronic (5) Renal insufficiency Status: Chronic (6) Stage 3 chronic kidney disease Status: Chronic (7) Essential hypertension Status: Chronic (8) intermediate current use of 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 Status: Chronic (9) Nonsustained ventricular tachycardia Status: Chronic (10) Chronic systolic CHF (congestive heart failure) Status: Chronic (11) Presence of implantable cardioverter-defibrillator (ICD) Status: Chronic (12) Left atrial thrombus Status: Chronic (13) Secondary pulmonary arterial hypertension Status: Chronic (14) History of coronary artery stent placement Status: Chronic Comment: SARA-RCA 06/15/2011, SARA-OM1 06/30/2011, SARA-LAD 08/20/2014, SARA-Prox- RCA 06/08/2016 (15) Atherosclerosis of coronary artery of [place] heart without angina pectoris Status: Chronic Qualifiers: Comment: SARA-RCA 06/15/2011, SARA-OM1 06/30/2011, SARA-LAD 08/20/2014, SARA-Prox- RCA 06/08/2016 (16) Paroxysmal atrial fibrillation Status: Chronic (17) Hyperlipidemia Status: Chronic Qualifiers: (18) Type II diabetes mellitus Status: Chronic (19) STEMI (ST elevation myocardial infarction) Status: Chronic (20) Cardiomyopathy, ischemic Status: Chronic History of Present Illness Date of Admission: 08/15/19 Chief Complaint: chest pain The patient is a 68 year old M presents with chest pain. Chest pain began on the around 2:58 PM. Chest pain was left-sided across the left side of his chest. Initially stated that did not radiate but then stated later, after asked, that it went up into his neck. States that he is diaphoretic and short of breath and possibly may have a nausea. Presented to the emergency room for evaluation and had a BNP elevated at 279.5, negative troponin. Chest x-ray report was concerning for pneumonia so patient had ordered blood cultures as well as a respiratory panel from the emergency room. The patient is denying any fever chills nor cough. [] Past Medical History Past Medical History (Chronic Problems): Chronic Problems (Last Reviewed 05/15/19 @ 14:59 by Lisette Elizondo) Systolic CHF, acute on chronic (Chronic) Atrial fibrillation and flutter (Chronic) CAD in [place] artery (Chronic) Renal insufficiency (Chronic) Stage 3 chronic kidney disease (Chronic) Essential hypertension (Chronic) intermediate current use of 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) Nonsustained ventricular tachycardia (Chronic) Chronic systolic CHF (congestive heart failure) (Chronic) Presence of implantable cardioverter-defibrillator (ICD) (Chronic) 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) History of coronary artery stent placement (Chronic 06/08/16) SARA-RCA 06/15/2011, SARA-OM1 06/30/2011, SARA-LAD 08/20/2014, SARA-Prox- RCA 06/08/2016 Atherosclerosis of coronary artery of [place] heart without angina pectoris (Chronic) SARA-RCA 06/15/2011, SARA-OM1 06/30/2011, SARA-LAD 08/20/2014, SARA-Prox- RCA 06/08/2016 Paroxysmal atrial fibrillation (Chronic) Hyperlipidemia (Chronic) Type II diabetes mellitus (Chronic) STEMI (ST elevation myocardial infarction) (Chronic) Cardiomyopathy, ischemic (Chronic) Medical History: Medical History (Last Reviewed 08/15/19 @ 01:[address] Enzo Gray, DO) Essential hypertension (Chronic) I10 intermediate current use of 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) Z79.01 Nonsustained ventricular tachycardia (Chronic) I47.2 Chronic systolic CHF (congestive heart failure) (Chronic) I50.22 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) I27.21 Atherosclerosis of coronary artery of [place] heart without angina pectoris (Chronic) I25.10 SAAR-RCA 06/15/2011, SARA-OM1 06/30/2011, SARA-LAD 08/20/2014, SARA-Prox- RCA 06/08/2016 Paroxysmal atrial fibrillation (Chronic) I48.0 Hyperlipidemia (Chronic) E78.5 Type II diabetes mellitus (Chronic) E11.9 STEMI (ST elevation myocardial infarction) (Chronic) Cardiomyopathy, ischemic (Chronic) I25.5 DDD (degenerative disc disease) Obesity (BMI 30.0-34.9) E66.9 Old myocardial infarction I25.2 inferior lateral and Anterior Apical Cardiogenic shock Onset Date: 06/08/16 R57.0 Hypertensive emergency I16.1 Esophagitis determined by endoscopy (Inactive) Onset Date: 05/06/17 K20.9 Allergies diltiazem Allergy (Verified 08/11/19 22:53) LOWER LEG SWELLING tamsulosin [From Flomax] Allergy (Verified 08/11/19 22:53) Shortness of breath/muscle weakness atorvastatin calcium [From Lipitor] Adverse Reaction (Verified 08/11/19 22:53) MUSCLE WEAKNESS Home Medications: Ambulatory Orders Medication Instructions Recorded Amiodarone HCl [Cordarone] 200 mg PO DAILY 03/13/19 Aspirin [Aspirin, Baby] 81 mg PO DAILY@0800 03/13/19 Carvedilol [Coreg] 25 mg PO BID 03/13/19 Loratadine 10 mg PO DAILY 03/13/19 Pantoprazole Sodium [Protonix] 40 mg PO BID 03/13/19 Pravastatin Sodium 40 mg PO QHS 03/13/19 Ranolazine [Ranolazine ER] 500 mg PO BID 03/13/19 Esomeprazole Mag Trihydrate 40 mg PO BID #20 cap 03/15/19 [Nexium] Insulin NPH Human Isophane 22 unit SQ BREAKFAST 04/20/19 [Novolin N] Furosemide [Lasix] 80 mg PO DAILY 06/14/19 Insulin NPH Human Isophane 20 unit SQ QHS 06/14/19 [Humulin N] clopidogrel 75 mg tablet 75 mg PO DAILY #30 tab 06/23/19 hydralazine 100 mg tablet 100 mg PO TID #90 tab 06/23/19 isosorbide mononitrate 120 mg 120 mg PO BID #60 tab 06/23/19 tablet,extended release 24 hr losartan 100 mg tablet 100 mg PO DAILY #90 tab 07/21/19 apixaban 2.5 mg tablet 2.5 mg PO BID #60 tab 08/13/19 Surgical History: Surgical History (Last Reviewed 08/15/19 @ 01:[address] Enzo Gray, DO) Presence of implantable cardioverter-defibrillator (ICD) (Chronic) Z95.810 History of coronary artery stent placement (Chronic) Onset Date: 06/08/16 Z95.5 SARA-RCA 06/15/2011, SARA-OM1 06/30/2011, SARA-LAD 08/20/2014, SARA-Prox- RCA 06/08/2016 History of cardioversion Onset Date: 04/10/16 Z98.890 01/14/15 (unsuccessful), 04/10/2016 H/O elbow surgery Z98.890 H/O left wrist surgery Z98.890 S/P right inguinal hernia repair Z98.890, Z87.19 Status post knee surgery Z98.890 Surgical History: - - s/p stents, AICD. Psychiatric History: No pertinent psych hx Smoking Status: Former smoker - *Family History Maternal Family History: Family History (Last Reviewed 08/15/19 @ 01:[address] Enzo Gray DO) Brother Sudden cardiac History Items: Hypertension Paternal Family History: Family History (Last Reviewed 08/15/19 @ 01:[address] Enzo Gray DO) Brother Sudden cardiac History Items: Unknown Sibling Family History: Family History (Last Reviewed 08/15/19 @ 01:[address] Enzo Gray DO) Brother Sudden cardiac History Items: Heart Disease Review of Systems Constitutional: Denies: Anorexia, Chills, Fever Eyes: Denies: Blurred vision, Conjunctivae Inflammation HEENT: Denies: Head Aches, Sinus Congestion, Sinus Drainage Cardiovascular: Reports: Chest Pain, Edema Respiratory: Reports: Shortness of Breath. Denies: Cough Gastrointestinal: Reports: Nausea. Denies: Abdominal Pain, Vomiting Genitourinary: Denies: Dysuria Musculoskeletal: Denies: Joint Pain, Joint Tenderness Skin: Denies: Rash, Wounds Neurological: Denies: Numbness, Tingling, Focal weakness Psychiatric: Denies: Anxiety, Depression Hematologic/ Lymphatic: Denies: Easy Bruising, Easy Bleeding, Hx of blood clot Comment: All review of systems were negative except as mentioned above in the history of present illness and the other review of systems. VTE Information - Inpt Only VTE Present on Admission: No VTE Mechan Device Prophylaxis: None VTE Pharm Prophylaxis ordered?: No Reason prophylaxis not ordered:: Treatment Not Indicated Patient Problems: Active and Suspected Problems (Last Reviewed 05/15/19 @ 14:59 by Lisette Elizondo) Chest pain (Acute) - Physical Exam Vitals/I&O's: Vital Signs Temp Pulse Resp BP Pulse Ox 36.6 C 98 18 165/97 H 96 08/15/19 00:49 08/15/19 00:49 08/15/19 00:49 08/15/19 00:49 08/15/19 00:49 Oxygen Delivery Method Room Air Weight: 95.254 kg Body Mass Index (BMI) 31.0 Finger Stick Blood Glucose 105 General: Alert, Cooperative, No apparent distress HEENT: Atraumatic, Normocephalic Oral: Moist Mucosa, No Gingival or Mucosal Lesions/ Ulcerations Neck: No JVD, No Nodes Lungs: Clear to auscultation, Normal air movement, No rhonchi, No wheeze Cardiovascular: Irregular Rate, Tachycardic Abdomen: Bowel Sounds Present, Soft, Non Tender, Non-Distended Extremities: No clubbing, Edema - Trace Skin: No rashes, No breakdown Psych/Mental Status: Normal Affect, Appropriate Laboratory Results 08/14/19 23:04: WBC 9.7, RBC 4.86, Hgb 13.0, Hct 41.6, MCV 85.6, MCH 26.7 L, MCHC 31.3 L, RDW Std Deviation 52.1 H, RDW Coeff of [place] 17.4 H, Plt Count 235, MPV 9.1, Immature Gran % (Auto) 0.700, Neut % (Auto) 83.0 H, Lymph % (Auto) 5.6 L, [place] % (Auto) 9.4, Eos % (Auto) 1.0, Baso % (Auto) 0.3, Absolute Neuts (auto) 8.1 H, Absolute Lymphs (auto) 0.55 L, Nucleated RBC % 0, Differential Comment COMMENT 08/14/19 23:04: Sodium 139, Potassium 3.3 L, Chloride 102, Carbon Dioxide 29.0, Anion Gap 8, BUN 23 H, Creatinine 1.71 H, Estim Creat Clear Calc 42.49, Est GFR (MDRD) Af Amer 52 L, Est GFR (MDRD) Non-Af 43 L, BUN/Creatinine Ratio 13.5, Glucose 169 H, Calcium 8.4 L, Troponin I 0.032 08/14/19 23:04: Lactic Acid 1.6 08/14/19 23:04: B-Natriuretic Peptide 279.5 H Chest x-ray personally reviewed and shows chronic changes because of anything improved from June of this year. EKG reviewed and showed atrial flutter. Assessment/Plan All Active Problems (Last Reviewed 05/15/19 @ 14:59 by Lisette Elizondo) Chest pain (Acute) 1. Chest pain: Heart score of 5 and a KATELYN score of 4. Patient states that this chest pain is similar to when he had chest pain back in April. Plan is for the patient undergo a nuclear stress test in the morning and determine if there is any new lesions that are found that may warrant another cardiac catheterization. Patient appears to be already medically optimized from a coronary artery perspective as he is on losartan, isosorbide, hydralazine, ranolazine, clopidogrel, carvedilol. 2. Atrial flutter: Chronic. Patient is already on carvedilol and amiodarone. He is anticoagulated on apixaban. 3. Diabetes mellitus type 2: Continue with his NPH. Signed scale insulin. 4. VTE prophylaxis: Low risk as patient is observation and already anticoagulated. 5. Advanced care planning: Discussed with the patient. Patient wishes to be full CODE STATUS. OBSV E&M: 17010 Initial observation care L2
--- NOTE | 2019-08-15 01:41 | EKG12_ITS ---
Test Reason : CP ADMIT Blood Pressure : / mmHG Vent. Rate : 089 BPM Atrial Rate : 286 BPM P-R Int : 000 ms QRS Dur : 108 ms QT Int : 452 ms P-R-T Axes : 000 -35 056 degrees QTc Int : 549 ms Atrial flutter with variable A-V block Left axis deviation Inferior infarct , age undetermined Anterior infarct , age undetermined Prolonged QT Abnormal ECG When compared with ECG of 14-AUG-2019 21:56, MANUAL COMPARISON REQUIRED, DATA IS UNCONFIRMED Confirmed by MCKENZIE SILVA ([id number]), legal editor CANELO DIETRICH ([id number]) on 08/21/2019 1:51:46 PM Referred By: DR SCHMITZ Confirmed By:MCKENZIE SILVA
[2019-08-15] MEDS: Losartan Potassium 100 MG Tablet PO (06:23)
[2019-08-15] MEDS: Aspirin 81 MG TAB.CHEW PO (06:23)
[2019-08-15] MEDS: Clopidogrel Bisulfate 75 MG Tablet PO (06:23)
[2019-08-15] MEDS: hydrALAZINE 50 MG Tablet 100 MG PO ×2 (06:23→14:11)
[2019-08-15] MEDS: 0.9% Saline Lock 10 ML Syringe IV (06:28)
[2019-08-15 06:55] LABS: Bedside Glucose 147 mg/dL (70-110)
[2019-08-15] MEDS: Ranolazine 500 MG Tablet PO (11:35)
[2019-08-15] MEDS: Carvedilol 25 MG Tablet PO (11:35)
[2019-08-15] MEDS: Furosemide 80 MG Tablet PO (11:35)
[2019-08-15] MEDS: Amiodarone 200 MG Tablet PO (11:35)
[2019-08-15] MEDS: Loratadine 10 MG Tablet PO (11:35)
[2019-08-15] MEDS: Pantoprazole Sodium 40 MG Tablet PO (11:36)
[2019-08-15] MEDS: Insulin Lispro 100 UNIT/ML INSULN.PEN SC (11:36)
[2019-08-15 11:40] LABS: Bedside Glucose 217 mg/dL (70-110)
--- NOTE | 2019-08-15 12:07 | STRESSREP_ITS ---
Stress Test Report Date: 08-15-2019 Procedure: Pharmacologic stress nuclear imaging study Indications: Chest pain; CAD; PCI; cardiomyopathy; CHF; atrial fibrillation Consent: Per the patient Procedure: The patient underwent pharmacologic (Regadenoson) evaluation with a peak heart rate of 121 beats per minute (78 %predicted maximal heart rate) and a peak blood pressure of 170/98 mmHg. The baseline ECG demonstrated atrial fibrillation; poor R wave progression; anterior RI of indeterminate age cannot be excluded; inferior RI of indeterminate age cannot be excluded. The peak pharmacologic ECG demonstrated no obvious ECG changes. There was a rare PVC during recovery. There was no complaint of chest discomfort during pharmacologic infusion or rec overy. The examination was discontinued secondary to completion of protocol. Impression: 1. Pharmacologic (Regadenoson) evaluation 2. Peak pharmacologic ECG with no obvious ECG changes. 3. There was a rare PVC during recovery. 4. Nuclear images pending Myocardial perfusion imaging study: Technique: The patient was injected with 15.0 millicuries of technetium 99m Cardiolite and subsequently rest SPECT Cardiolite nuclear imaging was obtained in the horizontal long, vertical long, and short axis views. The patient underwent pharmacologic (Regadenoson) evaluation with a peak heart rate of 121 beats per minute (78 % percent predicted maximal heart rate) and a peak blood pressure of 170/98 mmHg. The patient was injected with 45.0 millicuries of technetium 99m Cardiolite and subsequently stress SPECT Cardiolite nuclear imaging was obtained in the horizontal long, vertical long, and short axis views. A gated Cardiolite study at peak stress was obtained. Interpretation: Rest and stress SPECT Cardiolite nuclear imaging status post realignment, normalization, and attenuation correction demonstrate areas of diminished myocardial perfusion/tracer uptake in portions of the distal anterior, distal anteroseptal, anteroapical, septal apical, lateral apical, and inferoapical segments without significant change between rest and stress. There is diminished end systolic thickening and brightening in the aforementioned areas. The gated Cardiolite study demonstrates diminished myocardial thickening and inward wall motion in the aforementioned areas. The reported LVEF is 39 %. Impression: 1. Rest and stress SPECT Cardiolite nuclear imaging demonstrate myocardial perfusion changes appearing compatible with areas of previous myocardial injury/infarction involving portions of the distal anterior, distal anteroseptal, anteroapical, septal apical, lateral apical, and inferoapical segments with no myocardial perfusion changes considered diagnostic for associated stress-induced myocardial ischemia. 2. The gated Cardiolite study reports an LVEF of 39 %. This note was generated with [employer] software. It may contain incorrect words, spelling, and punctuation that were not noted in checking the note before signing.
[2019-08-15 13:14] LABS: Potassium 3.5 mmol/L (3.5-5.1)
--- NOTE | 2019-08-15 13:43 | PCM.DC ---
- Discharge Diagnoses Current Active Problems: Current Active and Chronic Problems (Last Reviewed 08/15/19 @ 01:[address] Enzo Gray, DO) Chest pain (Acute) You will use the following diet at home:: Cardiac Your food should be the consistency of: Regular Your liquids should be the consistency of: Regular/Thin Discharge Activity: Return to Normal Activity Weight Bearing Status: Weight bearing as tolerated Call your doctor if you observe: Shortness of breath, Swelling in the ankles, Chest pain Instructions: What Is Angina?, Recognizing a Heart Attack or Angina, Warning Signs of a Heart Attack, ED Chest Pain NonCardiac Allergies/Adverse Reactions: Allergies diltiazem Allergy (Verified 08/11/19 22:53) LOWER LEG SWELLING tamsulosin [From Flomax] Allergy (Verified 08/11/19 22:53) Shortness of breath/muscle weakness atorvastatin calcium [From Lipitor] Adverse Reaction (Verified 08/11/19 22:53) MUSCLE WEAKNESS Medications to take at Discharge Amiodarone HCl [Cordarone] 200 mg PO DAILY 03/13/19 Aspirin [Aspirin, Baby] 81 mg PO DAILY@0800 03/13/19 Carvedilol [Coreg] 25 mg PO BID 03/13/19 Loratadine 10 mg PO DAILY 03/13/19 Pantoprazole Sodium [Protonix] 40 mg PO BID 03/13/19 Pravastatin Sodium 40 mg PO QHS 03/13/19 Ranolazine [Ranolazine ER] 500 mg PO BID 03/13/19 Esomeprazole Mag Trihydrate [Nexium] 40 mg PO BID #20 cap 03/15/19 Insulin NPH Human Isophane [Novolin N] 22 unit SQ BREAKFAST 04/20/19 Furosemide [Lasix] 80 mg PO BID 06/14/19 Insulin NPH Human Isophane [Humulin N] 20 unit SQ QHS 06/14/19 clopidogrel 75 mg tablet 75 mg PO DAILY #30 tab 06/23/19 hydralazine 100 mg tablet 100 mg PO TID #90 tab 06/23/19 isosorbide mononitrate 120 mg tablet,extended release 24 hr 120 mg PO BID #60 tab 06/23/19 losartan 100 mg tablet 100 mg PO DAILY #90 tab 07/21/19 apixaban 2.5 mg tablet 2.5 mg PO BID #60 tab 08/13/19 Nitroglycerin (INPATIENT USE) [Nitrostat] 0.4 mg SUBLINGUAL Q5M PRN #30 tab 08/15/19 Potassium Chloride [K-Dur] 20 meq PO DAILY #10 tab 08/15/19 The following prescriptions were given: Potassium Chloride [K-Dur] 20 meq PO DAILY #10 tab Transmission Status: Pending to [facility] Nitroglycerin (INPATIENT USE) [Nitrostat] 0.4 mg SUBLINGUAL Q5M PRN #30 tab PRN Reason: Chest Pain Transmission Status: Pending to [facility] Primary Care Physician: Jennifer Spicer DO [Primary Care Provider] - Please follow up with your Primary Care Physician in: 1-2 weeks Test Results: Test results from this visit will be discussed in further detail at your follow-up appointment, if applicable. Proposed Discharge Date: 08/15/19
--- NOTE | 2019-08-15 13:47 | DS.PCM_ITS ---
Discharge Date and Diagnosis - Problem List Patient Problems: Active and Suspected Problems (Last Reviewed 08/15/19 @ 01:[address] Enzo Gray DO) Chest pain (Acute) Date of Admission: 08/15/19 Date of Discharge: 08/15/19 - Primary Discharge Diagnosis Active and Suspected Problems (Last Reviewed 08/15/19 @ 01:[address] Enzo Gray DO) Chest pain (Acute) community acquired pneumonia - Secondary Discharge Diagnosis Chronic Problems (Last Reviewed 08/15/19 @ 01:[address] Enzo Gray DO) Systolic CHF, acute on chronic (Chronic) Atrial fibrillation and flutter (Chronic) CAD in [place] artery (Chronic) Renal insufficiency (Chronic) Stage 3 chronic kidney disease (Chronic) Essential hypertension (Chronic) shelter current use of 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) Nonsustained ventricular tachycardia (Chronic) Chronic systolic CHF (congestive heart failure) (Chronic) Presence of implantable cardioverter-defibrillator (ICD) (Chronic) 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) History of coronary artery stent placement (Chronic 06/08/16) SARA-RCA 06/15/2011, SARA-OM1 06/30/2011, SARA-LAD 08/20/2014, SARA-Prox- RCA 06/08/2016 Atherosclerosis of coronary artery of [place] heart without angina pectoris (Chronic) SARA-RCA 06/15/2011, SARA-OM1 06/30/2011, SARA-LAD 08/20/2014, SARA-Prox- RCA 06/08/2016 Paroxysmal atrial fibrillation (Chronic) Hyperlipidemia (Chronic) Type II diabetes mellitus (Chronic) STEMI (ST elevation myocardial infarction) (Chronic) Cardiomyopathy, ischemic (Chronic) Hospital Course and Treatment Imaging Results: 08/15/19 05:55 Nuclear Stress Test - Chemical [NM] AM (NON MEDS) Operations: None Procedures: Stress test Summary of Care Provided: The patient is a 68 year old M with an extensive past medical history as outlined. He was admitted through the ED on 08/15/2019 with a complaint of chest pain which is started the day before presentation. Chest pain was left-sided and initially did not radiate but later radiated up his neck. He had assisted diaphoresis and shortness of breath with associated nausea. In the ED, BNP was elevated at 279.5 and troponins x3 were negative. Patient had no cough or shortness of breath. Chest x-ray done on admission showed some bilateral opacities concerning for pneumonia. Respiratory panel done was negative and blood cultures were pending. He was admitted and managed for chest pain rule out ACS and community-acquired pneumonia. Troponins x3 were negative. Patient had a stress test on 08/15/2019 which showed evidence of myocardial perfusion changes compatible with areas of previous myocardial injury or infarction involving portions of the distal anterior distal anteroseptal, anteroapical, septal apical, lateral apical and inferior apical segments with no myocardial perfusion changes consider diagnostic for associated stress-induced myocardial ischemia. LVEF per stress test was 39%. Stress test findings were similar to his that of stress test done in April 2019. Patient continues to deny any fever or chills or cough or shortness of breath. He was put on p.o. doxycycline 100 mg twice daily for 5 days to treat for community-acquired pneumonia based on the x-ray findings the patient was asymptomatic. Pulse ox done prior to discharge showed that he was saturating at 95% on room air at rest and 90% with ambulation. Of note, potassium was also 3.3 on admission and came up to 3.5 at discharge. He was discharged with p.o. potassium 20 mEq daily for 10 days. He is follow-up with his primary care doctor within 1 to 2 weeks and will need follow-up BMP done by PCP on outpatient basis to assess potassium levels. Patient seen and examined prior to discharge. He had no complaints. Review of stems otherwise negative. Labs and vitals reviewed. Home medication reviewed and reconciled. o/e: Vital Signs Temp Pulse Resp BP Pulse Ox 98.0 F 89 18 171/93 H 95 08/15/19 06:20 08/15/19 14:11 08/15/19 06:20 08/15/19 06:23 08/15/19 14:13 [] General: Alert, Cooperative, No apparent distress HEENT: Atraumatic, Normocephalic Oral: Moist Mucosa, No Gingival or Mucosal Lesions/ Ulcerations Neck: No JVD, No Nodes Lungs: Clear to auscultation, Normal air movement, No rhonchi, No wheeze Cardiovascular: Irregular rhythm, normal rate; afib- rate controlled Abdomen: Bowel Sounds Present, Soft, Non Tender, Non-Distended Extremities: No clubbing, no edema Skin: No rashes, No breakdown Psych/Mental Status: Normal Affect, Appropriate Plan is for dc home today as above. 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 Patient Problems: Active and Suspected Problems (Last Reviewed 08/15/19 @ 01:[address] Enzo Gray, DO) Chest pain (Acute) - Physical Exam Vitals/I&O's: Vital Signs Temp Pulse Resp BP Pulse Ox 98.0 F 100 18 171/93 H 93 08/15/19 06:20 08/15/19 09:19 08/15/19 06:20 08/15/19 06:23 08/15/19 06:20 Oxygen Delivery Method Room Air Weight: 204 lb 2.369 oz Body Mass Index (BMI) 30.1 Finger Stick Blood Glucose 105 Intake and Output for Last 24 Hours 08/13/19 08/14/19 08/15/19 23:59 23:59 23:59 Intake Total 120 / 120 Balance 120 / 120 Microbiology Past 72 Hours 08/14/19 22:45 Mucosa - Nose Respiratory Panel (PCR) - Final Laboratory Results 08/14/19 23:04: WBC 9.7, RBC 4.86, Hgb 13.0, Hct 41.6, MCV 85.6, MCH 26.7 L, MCHC 31.3 L, RDW Std Deviation 52.1 H, RDW Coeff of [place] 17.4 H, Plt Count 235, MPV 9.1, Immature Gran % (Auto) 0.700, Neut % (Auto) 83.0 H, Lymph % (Auto) 5.6 L, Lamar % (Auto) 9.4, Eos % (Auto) 1.0, Baso % (Auto) 0.3, Absolute Neuts (auto) 8.1 H, Absolute Lymphs (auto) 0.55 L, Nucleated RBC % 0, Differential Comment COMMENT 08/14/19 23:04: Sodium 139, Potassium 3.3 L, Chloride 102, Carbon Dioxide 29.0, Anion Gap 8, BUN 23 H, Creatinine 1.71 H, Estim Creat Clear Calc 42.49, Est GFR (MDRD) Af Amer 52 L, Est GFR (MDRD) Non-Af 43 L, BUN/Creatinine Ratio 13.5, Glucose 169 H, Calcium 8.4 L, Troponin I 0.032 08/14/19 23:04: Lactic Acid 1.6 08/14/19 23:04: B-Natriuretic Peptide 279.5 H 08/15/19 02:20: Troponin I 0.040 08/15/19 05:06: Troponin I 0.023 08/15/19 06:35: POC Glucose 147 H 08/15/19 11:33: POC Glucose 217 H 08/15/19 13:00: Potassium 3.5 Current Medications Acetaminophen (Tylenol) 650 mg PO Q6H PRN PRN PRN Reason: Pain Score 1-10/Temp > 100.7 F Amiodarone HCl (Cordarone) 200 mg PO DAILY [facility] Last Admin: 08/15/19 11:35 Dose: 200 mg Documented by: Apixaban (Eliquis) 2.5 mg PO BID [facility] Aspirin (Aspirin, Baby) 81 mg PO DAILY@0800 [facility] Last Admin: 08/15/19 06:23 Dose: 81 mg Documented by: Carvedilol (Coreg) 25 mg PO BID [facility] Last Admin: 08/15/19 11:35 Dose: 25 mg Documented by: Clopidogrel Bisulfate (Plavix) 75 mg PO DAILY [facility] Last Admin: 08/15/19 06:23 Dose: 75 mg Documented by: Dextrose (D50w Syringe) 0 gm IV X1 PRN; Protocol PRN Reason: Hypoglycemia Furosemide (Lasix) 80 mg PO DAILY [facility] Last Admin: 08/15/19 11:35 Dose: 80 mg Documented by: Glucagon () 1 mg IM .X1 PRN PRN Reason: Hypoglycemia Hydralazine HCl (Apresoline) 100 mg PO TID [facility] Last Admin: 08/15/19 06:23 Dose: 100 mg Documented by: Sodium Chloride () 250 mls @ 15 mls/hr IV .[id number] PRN PRN Reason: Saline Flush Sodium Chloride () 250 mls @ 15 mls/hr IV .[id number] PRN PRN Reason: Additional IVPB Infusion Insulin Human Lispro (Humalog Kwikpen (Bkc)) 0 unit SC TIDAC [facility]; Protocol Last Admin: 08/15/19 11:36 Dose: 2 u Documented by: Insulin Human NPH (Humulin N (Bkc)) 20 units SC QHS [facility] Insulin Human NPH (Humulin N (Bkc)) 22 units SC BREAKFAST [facility] Last Admin: 08/15/19 09:06 Dose: Not Given Documented by: Isosorbide Mononitrate (Imdur) 120 mg PO BID [facility] Last Admin: 08/15/19 11:35 Dose: 120 mg Documented by: Loratadine (Claritin) 10 mg PO DAILY [facility] Last Admin: 08/15/19 11:35 Dose: 10 mg Documented by: Losartan Potassium (Cozaar) 100 mg PO DAILY [facility] Last Admin: 08/15/19 06:23 Dose: 100 mg Documented by: Nitroglycerin (Nitrostat) 0.4 mg SUBLINGUAL Q5M PRN PRN Reason: CARDIAC/CHEST PAIN Oxycodone HCl (Oxyir) 5 mg PO Q4H PRN PRN PRN Reason: Pain Score 4-5/10 Oxycodone HCl (Oxyir) 10 mg PO Q4H PRN PRN PRN Reason: Pain Score 6-10/10 Pantoprazole Sodium (Protonix) 40 mg PO BID [facility] Last Admin: 08/15/19 11:36 Dose: 40 mg Documented by: Pravastatin Sodium (Pravachol) 40 mg PO QHS [facility] Ranolazine (Ranexa) 500 mg PO BID [facility] Last Admin: 08/15/19 11:35 Dose: 500 mg Documented by: Sodium Chloride () 10 - 40 ml IV UD PRN PRN Reason: SALINE FLUSH Last Admin: 08/15/19 06:28 Dose: 10 ml Documented by: Discharge Diet: Low fat/ Low Cholesterol Discharge Activity: Return to Normal Activity Weight Bearing Status: Weight bearing as tolerated Call your doctor if you observe: Shortness of breath, Swelling in the ankles, Chest pain Home Medications: Medications to take at Discharge Amiodarone HCl [Cordarone] 200 mg PO DAILY 03/13/19 Aspirin [Aspirin, Baby] 81 mg PO DAILY@0800 03/13/19 Carvedilol [Coreg] 25 mg PO BID 03/13/19 Loratadine 10 mg PO DAILY 03/13/19 Pantoprazole Sodium [Protonix] 40 mg PO BID 03/13/19 Pravastatin Sodium 40 mg PO QHS 03/13/19 Ranolazine [Ranolazine ER] 500 mg PO BID 03/13/19 Esomeprazole Mag Trihydrate [Nexium] 40 mg PO BID #20 cap 03/15/19 Insulin NPH Human Isophane [Novolin N] 22 unit SQ BREAKFAST 04/20/19 Furosemide [Lasix] 80 mg PO BID 06/14/19 Insulin NPH Human Isophane [Humulin N] 20 unit SQ QHS 06/14/19 clopidogrel 75 mg tablet 75 mg PO DAILY #30 tab 06/23/19 hydralazine 100 mg tablet 100 mg PO TID #90 tab 06/23/19 isosorbide mononitrate 120 mg tablet,extended release 24 hr 120 mg PO BID #60 tab 06/23/19 losartan 100 mg tablet 100 mg PO DAILY #90 tab 07/21/19 apixaban 2.5 mg tablet 2.5 mg PO BID #60 tab 08/13/19 Nitroglycerin (INPATIENT USE) [Nitrostat] 0.4 mg SUBLINGUAL Q5M PRN #30 tab 08/15/19 Potassium Chloride [K-Dur] 20 meq PO DAILY #10 tab 08/15/19 Following Prescrptions Were Given to Patient: Potassium Chloride [K-Dur] 20 meq PO DAILY #10 tab Transmission Status: Received by [facility] Nitroglycerin (INPATIENT USE) [Nitrostat] 0.4 mg SUBLINGUAL Q5M PRN #30 tab PRN Reason: Chest Pain Transmission Status: Received by [facility] Primary Care Physician: Jennifer Spicer DO [Primary Care Provider] - Please follow up with your Primary Care Physician in: 1-2 weeks Patient Instructions: What Is Angina?, Recognizing a Heart Attack or Angina, Warning Signs of a Heart Attack, ED Chest Pain NonCardiac Disposition: Home Minutes spent on discharge:: 35 Patient Condition:: Stable Medical Necessity - Tobacco Use Smoking Status: Former smoker Meaningful Use Info Meaningful Use Diagnoses (Choose all that apply): None applicable OBSV E&M: 92244 Observation care discharge
[2019-08-15] MEDS: APIXABAN 2.5 MG TABLET PO (14:11)
== END 2019-08-15 13:45 | disposition home or self-care (01) ==
LOC: ED 22:55 → PCU 08-15 01:12
PROVIDERS: Emergency Provider Emergency Medicine; PCP Family Medicine; Visit Provider Student in an Organized Health Care Education/Training Program
DX: J18.9 Pneumonia, unspecified organism (principal); R07.89 Other chest pain; D68.32 Hemorrhagic disorder due to extrinsic circulating 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s; T45.515A Adverse effect of 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s, initial encounter; I13.0 Hypertensive heart and chronic kidney disease with heart failure and stage 1 through stage 4 chronic kidney disease, or unspecified chronic kidney disease; N18.3 Chronic kidney disease, stage 3 (moderate); E11.22 Type 2 diabetes mellitus with diabetic chronic kidney disease; I48.20 Chronic atrial fibrillation, unspecified; I25.10 Atherosclerotic heart disease of native coronary artery without angina pectoris; I50.22 Chronic systolic (congestive) heart failure; I48.0 Paroxysmal atrial fibrillation; I25.2 Old myocardial infarction; E78.5 Hyperlipidemia, unspecified; I27.21 Secondary pulmonary arterial hypertension; I25.5 Ischemic cardiomyopathy; E66.9 Obesity, unspecified; Z79.899 Other long term (current) drug therapy; Z79.4 Long term (current) use of insulin; Z79.82 Long term (current) use of aspirin; Z79.02 Long term (current) use of antithrombotics/antiplatelets; Z87.891 Personal history of nicotine dependence; Z68.31 Body mass index [BMI] 31.0-31.9, adult
CPT/HCPCS: 36415; 71045; 78452; 80048; 82962; 83605; 83880; 84132; 84484; 85025; 87040; 87633; 93005; 93017; 99218; 99285; A9500; A4216; G0378; J2785

== ENCOUNTER → 2019-09-14 07:10 | Outpatient (CLI) | payer MEDICARE, SELFPAY ==
[2016-06-12 14:02] VITALS: BMI 29.7
[2019-08-15 01:46] VITALS: BMI 30.1
--- NOTE | 2019-09-14 07:25 | RAD_ITS ---
STUDY: X-RAY CHEST REASON FOR EXAM: Male, 68 years old. COUGH, SOB, CHF. HX PNEUMONIA, [place] W/ 6 CARDIAC STENTS INSERTED TECHNIQUE: PA and lateral views of the chest. COMPARISON: Comparison is made with prior study dated August 14, 2019. FINDINGS: Mild residual infiltrate persists in the right lung base as well as in the left lower lobe. Further follow-up is recommended. There is no demonstrated pleural abnormality. Normal size heart. A left-sided unipolar pacemaker is seen. Normal mediastinum and loco. Normal visualized pulmonary arteries. Normal visualized aortic arch and descending thoracic aorta. There are mild degenerative changes of the visualized thoracic spine. Normal visualized ribs, clavicles, and shoulders. There is no demonstrated abnormality of the visualized soft tissue structures of the upper abdomen. RAD/Chest PA and Lateral IMPRESSION: Mild residual changes persist at both lung bases. Further follow-up is recommended. Electronically Signed: Domingo Noyola, at 8:07 EDT , Service support ,
[2019-09-14 08:12] LABS: ALB/GLOB Ratio 0.9 RATIO (0.9-2.4); AST(SGOT) 16 U/L (15-37); Alanine Aminotransfer ALT/SGPT 24 U/L (16-61); Albumin, Serum 3.5 g/dL (3.2-5.0); Alkaline Phosphatase 91 U/L (45-117); Anion Gap 7 (5-15); BUN 21 mg/dL (7-18); Bilirubin, Direct 0.24 mg/dL (0.00-0.30); Calcium,Total 8.4 mg/dL (8.5-10.1); Chloride 101 mmol/L (98-107); Cholesterol 106 mg/dL (200); Creatinine, Serum 1.75 mg/dL (0.70-1.30); EST Glomerular Filtration Rate 42 mL/min (>60); Est Glom Filt Rate - Afr Amer 50 mL/min (>60); Globulin 4.1 g/dL (2.2-4.2); Glucose 184 mg/dL (74-106); High Density Lipoprotein 38 mg/dL; Potassium 3.6 mmol/L (3.5-5.1); Protein, Total 7.6 g/dL (6.4-8.2); Sodium Level 139 mmol/L (136-145); Triglycerides 95 mg/dL; Very Low Density Lipoprotein 19 mg/dL (5-40)
[2019-09-14 08:35] LABS: BNP,B-Type NATRIURETIC PEPTIDE 292.2 pg/mL (0-100)
== END ==
PROVIDERS: PCP Family Medicine; Referring Provider Family Medicine; Visit Provider Family Medicine
DX: J18.9 Pneumonia, unspecified organism (principal); I50.9 Heart failure, unspecified
CPT/HCPCS: 36415; 71046; 80053; 80061; 82248; 83880

== ENCOUNTER 2019-10-12 21:50 | Inpatient (IN) | payer MEDICARE, SELFPAY ==
[2016-06-12 14:02] VITALS: BMI 29.7
[2019-09-14 11:04] VITALS: BMI 31.0
[2019-10-12 21:52] VITALS: BP 145/103; PULSE 118; RESP 20; TEMP 36.4; O2SAT 87; BMI 31.0
[2019-10-12 21:54] VITALS: BP 158/88; PULSE 100; RESP 21; TEMP 36.4; O2SAT 94
--- NOTE | 2019-10-12 22:12 | EKG12_ITS ---
Test Reason : WEAKNESS Blood Pressure : / mmHG Vent. Rate : 101 BPM Atrial Rate : 249 BPM P-R Int : 000 ms QRS Dur : 110 ms QT Int : 446 ms P-R-T Axes : 000 -43 036 degrees QTc Int : 578 ms Atrial flutter with variable A-V block Left axis deviation Inferior infarct , age undetermined Possible Anterolateral infarct , age undetermined Prolonged QT Abnormal ECG Confirmed by BELKIS METZ, JUANJOES ([id number]), health editor LISBET HAWK ([id number]) on 10/16/2019 8:15:40 AM Referred By: DR WOLF Confirmed By:JUANJOSE TAMAYO MD
--- NOTE | 2019-10-12 22:13 | ED.VIS.GEN ---
History of Present Illness Chief Complaint: Weakness Informant: Patient, Family Onset: Yesterday Context: Gradual Onset Timing: Continuous Quality: weak, sleepy today Location: all over Current Severity: Moderate Maximum Severity: Severe Worsened by: nothing Relieved by: nothing Associated Symptoms: fatigued. was disoriented earlier. Narrative: Patient started feeling a little malaise yesterday, today he was awake in the morning but then he slept until around 3 in the afternoon. Daughter was concerned because this is unlike him. He woke up disoriented thinking it was 3 in the morning, not knowing exactly where he was, however he was able to be reoriented at that time. Since then he has had several episodes of rigors/chills without lapse in level of consciousness. He was diagnosed with pneumonia 2 months ago and has had a persistent cough since then without following up. He does not have COPD and is on no oxygen at home but he does have a significant history of heart issues, for which he is on Plavix and Eliquis. See the past medical history, as family was not sure exactly why he was on the Eliquis. It appears he had a left atrial thrombus as well as paroxysmal atrial fibrillation. He denies any worsening in his chronic dyspnea with exertion lately, and denies any other new physical symptoms on review of systems. - Past Medical History (1) Atherosclerosis of coronary artery of [place] heart without angina pectoris Status: Chronic Comment: SARA-RCA 06/15/2011, SARA-OM1 06/30/2011, SARA-LAD 08/20/2014, SARA-Prox- RCA 06/08/2016 (2) Cardiomyopathy, ischemic Status: Chronic (3) Chronic systolic CHF (congestive heart failure) Status: Chronic (4) Essential hypertension Status: Chronic (5) Hyperlipidemia Status: Chronic (6) Left atrial thrombus Status: Chronic (7) Nonsustained ventricular tachycardia Status: Chronic (8) Paroxysmal atrial fibrillation Status: Chronic (9) Presence of implantable cardioverter-defibrillator (ICD) Status: Chronic (10) Secondary pulmonary arterial hypertension Status: Chronic (11) Stage 3 chronic kidney disease Status: Chronic (12) Type II diabetes mellitus Status: Chronic Past Medical History - Allergies and Home Meds Allergies/Adverse Reactions: Allergies diltiazem Allergy (Verified 08/11/19 22:53) LOWER LEG SWELLING tamsulosin [From Flomax] Allergy (Verified 08/11/19 22:53) Shortness of breath/muscle weakness atorvastatin calcium [From Lipitor] Adverse Reaction (Verified 08/11/19 22:53) MUSCLE WEAKNESS Primary Care Physician: Jennifer Spicer DO [Primary Care Provider] - Surgical History: - - s/p stents, AICD. Smoking Status: Former smoker - Family History Maternal Family History: Family History (Last Reviewed 09/14/19 @ 11:04 by Lisette Elizondo) Brother Sudden cardiac Family History: Reports: Hypertension Paternal Family History: Family History (Last Reviewed 09/14/19 @ 11:04 by Lisette Elizondo) Brother Sudden cardiac Family History: Reports: Unknown Sibling Family History: Family History (Last Reviewed 09/14/19 @ 11:04 by Lisette Elizondo) Brother Sudden cardiac Family History: Reports: Heart Disease Review of Systems General: Reports: Chills, Malaise. Denies: Fever, Sweats Eyes: Denies: Visual changes - bilaterally, Diplopia ENT: Denies: Rhinorrhea, Sore throat Cardiovascular: Reports: Chest pain - once, for short while, earlier today. Denies: Palpitations, Heart racing Respiratory: Reports: Cough, Dyspnea on exertion. Denies: Dyspnea, Sputum Gastrointestinal: Denies: Abdominal pain, Nausea, Vomiting, Diarrhea, Melena, Hematochezia Genitourinary: Denies: Dysuria, Hematuria, Frequency Musculoskeletal: Denies: Myalgias, Neck pain, Back pain, Swelling, Extremity Pain Skin: Denies: Rash, Wounds Neurological: Reports: Headache. Denies: Weakness, Numbness Hematologic: Reports: Easy bruising, Easy bleeding Physical Exam Vital Signs/Narrative: Vital Signs Temp Pulse Resp BP Pulse Ox 10/12/19 21:52 97.6 F L 118 H 20 H 145/103 H 87 Inital Vital Signs reviewed: Yes General: Well nourished, Well developed, No Acute Distress Head: Normocephalic, Atraumatic Eyes: Perrl, EOMI ENT: Moist mucous membranes, No rhinorrhea, - - POP clear Neck: Supple, Nontender, No lymphadenopathy, No JVD Cardiovascular: Regular rate, Regular rhythm, No murmurs Respiratory: No distress, CTA bilaterally, Chest nontender Abdomen: Soft, Nontender, Nondistended, Normal bowel sounds Back: Nontender, Normal Inspection Extremities: Nontender, No edema. Negative for: Calf Tenderness Skin: Normal color, No rash, No Trauma Neurological: Alert, Oriented x3 - was disoriented to place, but redirectable, Cranial nerves II-XII grossly intact, Normal Strength, Normal Sensation Psychological: Normal affect, Normal Mood Diagnostic/Tx/Re-eval Clinical Impression(s) from Imaging Studies Brain CT 10/12/19 22:17 IMPRESSION: No acute intracranial or calvarial abnormality. There is no major interval change. Electronically Signed: Kash Teague DO at 23:41 EDT Tel [phone], Service support , Chest X-Ray 10/12/19 23:30 IMPRESSION: Cardiac pacemaker without acute cardiopulmonary disease. Electronically Signed: Kash Teague DO at 23:42 EDT Tel [phone], Service support , Laboratory Tests 10/13/19 10/12/19 10/12/19 Range/Units 00:20 22:45 22:45 WBC (4.4-11.0) K/mm3 RBC (4.6-6.2) M/mm3 Hgb (13.0-16.5) g/dL Hct (40-54) % MCV (80-94) fL MCH (27.0-32.0) pg MCHC (32-36) g/dL RDW Std Deviation (35.1-43.9) fl RDW Coeff of [place] (11.6-14.6) % Plt Count (150-450) K/mm3 MPV (6.2-12.0) fl Immature Gran % (Auto) (0.0-0.9) % Neut % (Auto) (47-70) % Lymph % (Auto) (19-41) % Caroline % (Auto) (0-10) % Eos % (Auto) (0-5) % Baso % (Auto) (0-1) % Absolute Neuts (auto) (2.0-7.7) X10^3/uL Absolute Lymphs (auto) (0.83-4.51) X10^3/uL Nucleated RBC % (0-5) % PT (11.7-14.9) SECONDS INR APTT (24.1-36.2) Seconds Sodium 138 (136-145) mmol/L Potassium 3.5 (3.5-5.1) mmol/L Chloride 100 (98-107) mmol/L Carbon Dioxide 31.0 (21.0-32.0) mmol/L Anion Gap 7 (5-15) BUN 40 H (7-18) mg/dL Creatinine 2.18 H (0.70-1.30) mg/dL Estim Creat Clear Calc 32.88 ml/min Est GFR (MDRD) Af Amer 39 L (>60) mL/min Est GFR (MDRD) Non-Af 32 L (>60) mL/min BUN/Creatinine Ratio 18.3 (10-20) RATIO Glucose 132 H (74-106) mg/dL Lactic Acid 1.9 (0.4-1.9) mmol/L Calcium 8.5 (8.5-10.1) mg/dL Total Bilirubin 0.40 (0.20-1.00) mg/dL AST 28 (15-37) U/L ALT 34 (16-61) U/L Alkaline Phosphatase 76 (45-117) U/L Troponin I < 0.015 (<0.045) ng/mL Total Protein 7.9 (6.4-8.2) g/dL Albumin 3.7 (3.2-5.0) g/dL Globulin 4.2 (2.2-4.2) g/dL Albumin/Globulin Ratio 0.9 (0.9-2.4) RATIO Urine Color Yellow (Yellow) Urine Clarity Clear (Clear) Urine pH 6.5 (5.0 - 8.0) Ur Specific [place] 1.005 (1.002-1.030) Urine Protein Negative (Negative) mg/dl Urine Glucose (UA) Normal (Normal) mg/dl Urine Ketones Negative (Negative) mg/dl Urine Occult Blood Negative (Negative) /ul Urine Nitrite Negative (Negative) Urine Bilirubin Negative (Negative) mg/dL Urine Urobilinogen Normal (Normal) mg/dl Ur Leukocyte Esterase Negative (Negative) /ul Urine RBC 0 SEEN (0-5) /hpf Urine WBC 0 SEEN (0-5) /hpf Ur Squamous Epith Cells 0 SEEN (0-5) /hpf Urine Bacteria 0 SEEN (None Seen) /hpf Urine Mucus 0 SEEN (<or=2+) /hpf 10/12/19 10/12/19 Range/Units 22:45 22:45 WBC 8.1 (4.4-11.0) K/mm3 RBC 5.28 (4.6-6.2) M/mm3 Hgb 13.6 (13.0-16.5) g/dL Hct 44.9 (40-54) % MCV 85.0 (80-94) fL MCH 25.8 L (27.0-32.0) pg MCHC 30.3 L (32-36) g/dL RDW Std Deviation 51.6 H (35.1-43.9) fl RDW Coeff of [place] 17.9 H (11.6-14.6) % Plt Count 262 (150-450) K/mm3 MPV 9.1 (6.2-12.0) fl Immature Gran % (Auto) 1.000 H (0.0-0.9) % Neut % (Auto) 79.5 H (47-70) % Lymph % (Auto) 8.0 L (19-41) % Caroline % (Auto) 9.4 (0-10) % Eos % (Auto) 1.7 (0-5) % Baso % (Auto) 0.4 (0-1) % Absolute Neuts (auto) 6.4 (2.0-7.7) X10^3/uL Absolute Lymphs (auto) 0.65 L (0.83-4.51) X10^3/uL Nucleated RBC % 0 (0-5) % PT 15.5 H (11.7-14.9) SECONDS INR 1.3 APTT 29.9 (24.1-36.2) Seconds Sodium (136-145) mmol/L Potassium (3.5-5.1) mmol/L Chloride (98-107) mmol/L Carbon Dioxide (21.0-32.0) mmol/L Anion Gap (5-15) BUN (7-18) mg/dL Creatinine (0.70-1.30) mg/dL Estim Creat Clear Calc ml/min Est GFR (MDRD) Af Amer (>60) mL/min Est GFR (MDRD) Non-Af (>60) mL/min BUN/Creatinine Ratio (10-20) RATIO Glucose (74-106) mg/dL Lactic Acid (0.4-1.9) mmol/L Calcium (8.5-10.1) mg/dL Total Bilirubin (0.20-1.00) mg/dL AST (15-37) U/L ALT (16-61) U/L Alkaline Phosphatase (45-117) U/L Troponin I (<0.045) ng/mL Total Protein (6.4-8.2) g/dL Albumin (3.2-5.0) g/dL Globulin (2.2-4.2) g/dL Albumin/Globulin Ratio (0.9-2.4) RATIO Urine Color (Yellow) Urine Clarity (Clear) Urine pH (5.0 - 8.0) Ur Specific [place] (1.002-1.030) Urine Protein (Negative) mg/dl Urine Glucose (UA) (Normal) mg/dl Urine Ketones (Negative) mg/dl Urine Occult Blood (Negative) /ul Urine Nitrite (Negative) Urine Bilirubin (Negative) mg/dL Urine Urobilinogen (Normal) mg/dl Ur Leukocyte Esterase (Negative) /ul Urine RBC (0-5) /hpf Urine WBC (0-5) /hpf Ur Squamous Epith Cells (0-5) /hpf Urine Bacteria (None Seen) /hpf Urine Mucus (<or=2+) /hpf - Rhythm Strip Rhythm Strip: A-fib Rate: 100 Ectopy: None - EKG Initial EKG Interpretation: No Acute Injury Pattern, Atrial Flutter, LAFB, AV Block - variable Prior: Unchanged - Medical Decision Making Work-up is fairly unremarkable except for mild YOMI. He is on Lasix 80 mg twice daily and has a low ejection fraction, somewhere in the 30s. He has multiple stents. He had 1 chest pain episode earlier today, from looking at his last cardiology note this does not sound unusual for him. His troponin is negative. He is in a flutter with variable A-V block. This is the rhythm he was in at his last cardiology appointment, and he has had 2 failed cardioversions. They have discussed the possibility of an ablation, however after discussing with family, this was open ended after the stud setter told him he could have it done in [place] or [place] if they decided that, and he never really talked about it again. The patient did not set this up, refuse it, etc. He states that his last appointment, they did not discuss ablation. At this time, his average heart rate is around 100, and I do not feel that his symptoms of being weak and unsteady today are necessarily clearly related to his dysrhythmia that is chronic and not necessarily racing out of control. His stud setter wanted to leave him on the amiodarone, because it seemed to be providing good rate control. He continues to be anticoagulated with Eliquis. Today his chest x-ray shows no pneumonia or other acute infiltrates, so I reassured him there. I did give him a bolus of 500 cc of fluid, the patient felt a little better, he seems to be oriented at this time, however daughter is very apprehensive about taking him home because he seemed very unsteady on his feet even with a cane in her assistance, he could barely walk and seemed like he was too weak to walk or stand. Therefore think it would be reasonable to observe him, discussed with hospitalist. ED Disposition - Plan for ED Patient: Disposition: Acute Care [facility] Diagnosis: Transient disorientation, YOMI (acute kidney injury), Fatigue, Generalized weakness, Chest pain, unspecified Referrals: Jennifer Spicer DO [Primary Care Provider] -
--- NOTE | 2019-10-12 22:17 | CT_ITS ---
STUDY: CT BRAIN WITHOUT CONTRAST REASON FOR EXAM: Male, 69 years old. Increased fatigue. Disorientation. Forgetfulness. Sleeping all day. RADIATION DOSAGE (If Supplied By Facility): CTDIvol = ( 44.99 ) mGy, DLP = ( 829.85 ) mGycm TECHNIQUE: Transaxial CT imaging of the brain was performed without administration of intravenous contrast material. Individualized dose optimization techniques were used for this CT. COMPARISON: June 14, 2019. FINDINGS: Normal soft tissue structures. Normal calvarium. Normal size ventricles and extra-axial spaces for the patient''s age. There are areas of decreased attenuation within the white matter tracts of the supratentorial brain, consistent with microvascular disease changes. Normal basal ganglia and thalami. Normal brainstem. Normal cerebellum. There is no intracranial hemorrhage. There are no findings of an acute ischemic infarction. There are calcifications in the bilateral carotid siphons. Normal visualized paranasal sinuses. CT/Brain/Head without Contrast IMPRESSION: No acute intracranial or calvarial abnormality. There is no major interval change. Electronically Signed: Kash Teague DO at 23:41 EDT Tel [phone], Service support ,
[2019-10-12 22:41] VITALS: BP 158/88; PULSE 90; RESP 24; O2SAT 94
[2019-10-12 22:54] VITALS: BP 149/85; PULSE 90; RESP 21; TEMP 36.7; O2SAT 97
[2019-10-12 22:55] LABS: Absolute Lymphocyte Count 0.65 X10^3/uL (0.83-4.51); Absolute Neutrophil Count 6.4 X10^3/uL (2.0-7.7); Basophil# 0.03 X10^3/uL; Basophil% 0.4 % (0-1); Eosinophil# 0.14 X10^3/uL; Eosinophils% 1.7 % (0-5); Hematocrit 44.9 % (40-54); Hemoglobin 13.6 g/dL (13.0-16.5); Lymphocyte # 0.65 X10^3/ul (4.0); Mean Corp Hgb Conc 30.3 g/dL (32-36); Mean Corpuscular Hgb 25.8 pg (27.0-32.0); Mean Platelet Vol. 9.1 fl (6.2-12.0); Monocyte# 0.76 X10^3/uL; Monocyte% 9.4 % (0-10); NRBC Flagged by Analyzer 0 % (0-5); Neutrophil # 6.42 X10^3/uL (2.7-7.7); Neutrophil % 79.5 % (47-70); Platelet Count 262 K/mm3 (150-450); RBC Distribution Width CV 17.9 % (11.6-14.6); RBC Distribution Width SD 51.6 fl (35.1-43.9); Red Blood Count 5.28 M/mm3 (4.6-6.2); White Blood Count 8.1 K/mm3 (4.4-11.0)
[2019-10-12 23:12] VITALS: BP 139/79; PULSE 94; RESP 21; O2SAT 97
[2019-10-12 23:12] LABS: ALB/GLOB Ratio 0.9 RATIO (0.9-2.4); AST(SGOT) 28 U/L (15-37); Alanine Aminotransfer ALT/SGPT 34 U/L (16-61); Albumin, Serum 3.7 g/dL (3.2-5.0); Alkaline Phosphatase 76 U/L (45-117); Anion Gap 7 (5-15); BUN 40 mg/dL (7-18); BUN/Creat Ratio 18.3 RATIO (10-20); Calcium,Total 8.5 mg/dL (8.5-10.1); Chloride 100 mmol/L (98-107); Creatinine, Serum 2.18 mg/dL (0.70-1.30); EST Glomerular Filtration Rate 32 mL/min (>60); Est Glom Filt Rate - Afr Amer 39 mL/min (>60); Estimated Creatinine Clearance 32.88 ml/min; Globulin 4.2 g/dL (2.2-4.2); Glucose 132 mg/dL (74-106); Potassium 3.5 mmol/L (3.5-5.1); Protein, Total 7.9 g/dL (6.4-8.2); Sodium Level 138 mmol/L (136-145)
[2019-10-12 23:18] LABS: Lactic Acid 1.9 mmol/L (0.4-1.9)
[2019-10-12 23:28] LABS: International Normalized Ratio 1.3; Partial Thromboplast Time 29.9 Seconds (24.1-36.2); Prothrombin Time (Protime)PT. 15.5 SECONDS (11.7-14.9)
--- NOTE | 2019-10-12 23:30 | RAD_ITS ---
STUDY: X-RAY CHEST REASON FOR EXAM: Male, 69 years old. Excessive drowsiness. Weakness. Cough. Check progression of pneumonia. TECHNIQUE: Single AP portable view of the chest. COMPARISON: September 14, 2019. FINDINGS: The lungs are clear and expanded. There is no demonstrated pleural abnormality. Normal size heart. Table cardiac pacemaker. Normal mediastinum and loco. Normal visualized pulmonary arteries. There is atherosclerotic calcification of the aortic arch with tortuosity. The thoracic spine is obscured by the mediastinum. Normal visualized ribs, clavicles, and shoulders. There is no demonstrated abnormality of the visualized soft tissue structures of the upper abdomen. RAD/Chest 1 View (Portable) IMPRESSION: Cardiac pacemaker without acute cardiopulmonary disease. Electronically Signed: Ksah Teague DO at 23:42 EDT Tel [phone], Service support ,
[2019-10-13] VITALS (13 sets, daily range): BP systolic 124–158; BP diastolic 68–90; PULSE 85–118; RESP 16–23; TEMP 36.5–36.9; O2SAT 95–100; BMI 29.9
[2019-10-13 00:32] LABS: Bacteria 0 SEEN /hpf (None Seen); Mucous, Urine 0 SEEN /hpf (<or=2+); Red Blood Cells-Urine 0 SEEN /hpf (0-5); Squamous Epithelial Cells - UA 0 SEEN /hpf (0-5); White Blood Cells 0 SEEN /hpf (0-5)
[2019-10-13 00:48] LABS: Color, Urine Yellow (Yellow); Glucose, Dipstick Normal (Normal); Ketone-Dipstick Negative (Negative); Leukocyte Esterase-Dipstick Negative /ul (Negative); Nitrite-Dipstick Negative (Negative); Occult Blood-Urine Negative /ul (Negative); Protein-Dipstick Negative (Negative); Specific Gravity, Urine 1.005 (1.002-1.030); Urine Bilirubin Dipstick Negative (Negative); Urine Clarity Clear (Clear); Urine Urobilinogen Normal (Normal); Urine pH 6.5 (5.0 - 8.0)
--- NOTE | 2019-10-13 00:58 | PCM.HP.STD ---
History of Present Illness Date of Admission: 10/13/19 Chief Complaint: Altered mental status, fatigue, poor po intake, low blood sugar - 1 day The patient is a 69 year old M with multiple comorbidities including type II DM, on insulin, chronic systolic CHF, EF of 45%, hypertension who comes in with multiple complaints occluding altered mental status, lethargy, low blood sugar. Patient woke up early in the morning around 5 AM and went downstairs to his kitchen. He sat on the chair and fell asleep. Around 7:30 AM, his daughter came downstairs and patient was semi-responsive. She performed house chores around him making noise but that did not arouse him. He finally woke him up around 10:00 and appeared very confused. She helped him go upstairs to lie down. Patient took a nap until 3:45 PM. When he woke up, she checked his blood sugar and his blood sugar was 58. After he had some eggs, repeat blood sugar was in the 90s and later on was in the 200s. Patient subsequently did not have anything else to eat and was intermittently confused. He admits to feeling foggy today. Denied any fever chills or shortness of breath. Vitals in the ED showed temperature of 97.6F, heart rate 118, blood pressure 145/103, respiratory rate was 20, SPO2 was 94% on room air. His WBC count was 8.1, hemoglobin 13.6, platelet count 262, INR 1.3, APTT 29.9, sodium 138, potassium 3.5, chloride 100, bicarbonate 31, BUN 40, creatinine 2.18, baseline creatinine is 1.7-1.8. Troponins are negative. UA is unremarkable. EKG shows atrial flutter with variable AV block. Blood and urine cultures are pending. CT scan of the brain showed no acute intracranial abnormality. Chest x-ray was negative for acute cardiopulmonary process. Past Medical History Past Medical History (Chronic Problems): Chronic Problems (Last Reviewed 09/14/19 @ 11:04 by Lisette Elizondo) Systolic CHF, acute on chronic (Chronic) Atrial fibrillation and flutter (Chronic) CAD in [place] artery (Chronic) Renal insufficiency (Chronic) Stage 3 chronic kidney disease (Chronic) Essential hypertension (Chronic) senior care current use of 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) Nonsustained ventricular tachycardia (Chronic) Chronic systolic CHF (congestive heart failure) (Chronic) Presence of implantable cardioverter-defibrillator (ICD) (Chronic) 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) History of coronary artery stent placement (Chronic 06/08/16) SARA-RCA 06/15/2011, SARA-OM1 06/30/2011, SARA-LAD 08/20/2014, SARA-Prox- RCA 06/08/2016 Atherosclerosis of coronary artery of [place] heart without angina pectoris (Chronic) SARA-RCA 06/15/2011, SARA-OM1 06/30/2011, SARA-LAD 08/20/2014, SARA-Prox- RCA 06/08/2016 Paroxysmal atrial fibrillation (Chronic) Hyperlipidemia (Chronic) Type II diabetes mellitus (Chronic) STEMI (ST elevation myocardial infarction) (Chronic) Cardiomyopathy, ischemic (Chronic) Medical History: Medical History (Last Reviewed 09/14/19 @ 11:04 by Lisette Elizondo) Essential hypertension (Chronic) 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) Z79.01 Nonsustained ventricular tachycardia (Chronic) I47.2 Chronic systolic CHF (congestive heart failure) (Chronic) I50.22 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) I27.21 Atherosclerosis of coronary artery of [place] heart without angina pectoris (Chronic) I25.10 SARA-RCA 06/15/2011, SARA-OM1 06/30/2011, SARA-LAD 08/20/2014, SARA-Prox- RCA 06/08/2016 Paroxysmal atrial fibrillation (Chronic) I48.0 Hyperlipidemia (Chronic) E78.5 Type II diabetes mellitus (Chronic) E11.9 STEMI (ST elevation myocardial infarction) (Chronic) Cardiomyopathy, ischemic (Chronic) I25.5 DDD (degenerative disc disease) Obesity (BMI 30.0-34.9) E66.9 Old myocardial infarction I25.2 inferior lateral and Anterior Apical Cardiogenic shock Onset Date: 06/08/16 R57.0 Hypertensive emergency I16.1 Esophagitis determined by endoscopy (Inactive) Onset Date: 05/06/17 K20.9 Allergies diltiazem Allergy (Verified 08/11/19 22:53) LOWER LEG SWELLING tamsulosin [From Flomax] Allergy (Verified 08/11/19 22:53) Shortness of breath/muscle weakness atorvastatin calcium [From Lipitor] Adverse Reaction (Verified 08/11/19 22:53) MUSCLE WEAKNESS Home Medications: Ambulatory Orders Medication Instructions Recorded Amiodarone HCl [Cordarone] 200 mg PO DAILY 03/13/19 Aspirin [Aspirin, Baby] 81 mg PO DAILY@0800 03/13/19 Loratadine 10 mg PO DAILY 03/13/19 Pantoprazole Sodium [Protonix] 40 mg PO BID 03/13/19 Ranolazine [Ranolazine ER] 500 mg PO BID 03/13/19 Esomeprazole Mag Trihydrate 40 mg PO BID #20 cap 03/15/19 [Nexium] Insulin NPH Human Isophane 22 unit SQ BREAKFAST 04/20/19 [Novolin N] Furosemide [Lasix] 80 mg PO BID 06/14/19 Insulin NPH Human Isophane 20 unit SQ QHS 06/14/19 [Humulin N] clopidogrel 75 mg tablet 75 mg PO DAILY #30 tab 06/23/19 hydralazine 100 mg tablet 100 mg PO TID #90 tab 06/23/19 isosorbide mononitrate 120 mg 120 mg PO BID #60 tab 06/23/19 tablet,extended release 24 hr losartan 100 mg tablet 100 mg PO DAILY #90 tab 07/21/19 apixaban 2.5 mg tablet 2.5 mg PO BID #60 tab 08/13/19 Nitroglycerin (INPATIENT USE) 0.4 mg SUBLINGUAL Q5M PRN #30 tab 08/15/19 [Nitrostat] Potassium Chloride [K-Dur] 20 meq PO DAILY #10 tab 08/15/19 carvedilol 25 mg tablet 25 mg PO BID #180 tab 09/14/19 pravastatin 40 mg tablet 40 mg PO QHS #90 tab 09/15/19 Surgical History: Surgical History (Last Reviewed 09/14/19 @ 11:04 by Lisette Elizondo) Presence of implantable cardioverter-defibrillator (ICD) (Chronic) Z95.810 History of coronary artery stent placement (Chronic) Onset Date: 06/08/16 Z95.5 SARA-RCA 06/15/2011, SARA-OM1 06/30/2011, SARA-LAD 08/20/2014, SARA-Prox- RCA 06/08/2016 History of cardioversion Onset Date: 04/10/16 Z98.890 01/14/15 (unsuccessful), 04/10/2016 H/O elbow surgery Z98.890 H/O left wrist surgery Z98.890 S/P right inguinal hernia repair Z98.890, Z87.19 Status post knee surgery Z98.890 Surgical History: herniorrhaphy, total knee arthroplasty - ACLS repair, - - s/p stents, AICD s/p cardioversion, s/p wrist and elbow surgery Psychiatric History: No pertinent psych hx Lives: With Family Smoking Status: Former smoker Tobacco Use: Non-smoker Alcohol: None Drugs: None - *Family History Maternal Family History: Family History (Last Reviewed 09/14/19 @ 11:04 by Lisette Elizondo) Brother Sudden cardiac History Items: Hypertension Paternal Family History: Family History (Last Reviewed 09/14/19 @ 11:04 by Lisette Elizondo) Brother Sudden cardiac History Items: Unknown Sibling Family History: Family History (Last Reviewed 09/14/19 @ 11:04 by Lisette Elizondo) Brother Sudden cardiac History Items: Heart Disease Review of Systems Constitutional: Reports: Malaise, Fatigue. Denies: Anorexia, Chills, Fever, Night Sweats, Weakness, Weight Change Eyes: Denies: Blurred vision, Cataracts, Conjunctivae Inflammation, Pain, Redness, Vision Change HEENT: Denies: Difficulty Hearing, Difficulty Swallowing, Head Aches, Hearing Changes, Sinus Congestion, Sinus Drainage, Sore Throat Cardiovascular: Denies: Chest Pain, Claudication, Orthopnea, Palpitations Respiratory: Denies: Cough, Shortness of breath at rest, Sputum production Gastrointestinal: Denies: Abdominal Pain, Nausea, Vomiting Genitourinary: Denies: Dysuria Musculoskeletal: Denies: Joint Pain, Joint Tenderness Skin: Denies: Rash, Wounds Neurological: Denies: Numbness, Tingling, Focal weakness Psychiatric: Denies: Anxiety, Depression, Homicidal Ideations, Suicidal Ideations Hematologic/ Lymphatic: Denies: Easy Bruising, Easy Bleeding VTE Information - Inpt Only VTE Present on Admission: No VTE Pharm Prophylaxis ordered?: Yes Patient Problems: Active and Suspected Problems (Last Reviewed 09/14/19 @ 11:04 by Lisette Elizondo) Chest pain (Acute) Transient disorientation (Acute) YOMI (acute kidney injury) (Acute) Fatigue (Acute) Generalized weakness (Acute) - Physical Exam Vitals/I&O's: Vital Signs Temp Pulse Resp BP Pulse Ox 98.5 F 96 23 H 158/84 H 97 10/13/19 00:04 10/13/19 00:34 10/13/19 00:34 10/13/19 00:34 10/13/19 00:34 Oxygen Delivery Method Room Air Weight: 95.254 kg Body Mass Index (BMI) 31.0 Finger Stick Blood Glucose 105 General: Alert, Oriented x3, Cooperative, No apparent distress HEENT: Atraumatic, PERRLA, EOMI, Normocephalic Oral: Moist Mucosa Neck: Supple Lungs: Diminished - at lung bases with fine crackles Cardiovascular: Regular rate, Regular Rhythm, Normal S1, Normal S2, No murmurs Abdomen: Bowel Sounds Present, Soft, Non Tender, Non-Distended, No Hepato-splenomegaly Extremities: No edema Skin: No rashes Musculoskeletal: No Tenderness to Palpation of Joints or Extremities Lymphatic: No Cervical, Supraclavicular, or Inguinal Adenopathy Neurological: Cranial nerves II-XII grossly intact, Neuro grossly intact Psych/Mental Status: Normal Affect, Appropriate Laboratory Results 10/12/19 22:45: WBC 8.1, RBC 5.28, Hgb 13.6, Hct 44.9, MCV 85.0, MCH 25.8 L, MCHC 30.3 L, RDW Std Deviation 51.6 H, RDW Coeff of [place] 17.9 H, Plt Count 262, MPV 9.1, Immature Gran % (Auto) 1.000 H, Neut % (Auto) 79.5 H, Lymph % (Auto) 8.0 L, [place] % (Auto) 9.4, Eos % (Auto) 1.7, Baso % (Auto) 0.4, Absolute Neuts (auto) 6.4, Absolute Lymphs (auto) 0.65 L, Nucleated RBC % 0 10/12/19 22:45: PT 15.5 H, INR 1.3, APTT 29.9 10/12/19 22:45: Sodium 138, Potassium 3.5, Chloride 100, Carbon Dioxide 31.0, Anion Gap 7, BUN 40 H, Creatinine 2.18 H, Estim Creat Clear Calc 32.88, Est GFR (MDRD) Af Amer 39 L, Est GFR (MDRD) Non-Af 32 L, BUN/Creatinine Ratio 18.3, Glucose 132 H, Calcium 8.5, Total Bilirubin 0.40, AST 28, ALT 34, Alkaline Phosphatase 76, Troponin I < 0.015, Total Protein 7.9, Albumin 3.7, Globulin 4.2, Albumin/Globulin Ratio 0.9 10/12/19 22:45: Lactic Acid 1.9 10/13/19 00:20: Urine Color Yellow, Urine Clarity Clear, Urine pH 6.5, Ur Specific [place] 1.005, Urine Protein Negative, Urine Glucose (UA) Normal, Urine Ketones Negative, Urine Occult Blood Negative, Urine Nitrite Negative, Urine Bilirubin Negative, Urine Urobilinogen Normal, Ur Leukocyte Esterase Negative, Urine RBC 0 SEEN, Urine WBC 0 SEEN, Ur Squamous Epith Cells 0 SEEN, Urine Bacteria 0 SEEN, Urine Mucus 0 SEEN Assessment/Plan All Active Problems (Last Reviewed 09/14/19 @ 11:04 by Lisette Elizondo) Chest pain (Acute) Transient disorientation (Acute) YOMI (acute kidney injury) (Acute) Fatigue (Acute) Generalized weakness (Acute) 1. Altered mental status, multifactorial, resolved, Patient is now alert oriented x3 Will continue to monitor 2. YOMI on CKD stage 3, creatinine is 2.18, baseline creatinine is between 1.7-1.8 Secondary to dehydration from poor p.o. intake Received 500 mils of IV fluid in the ED We will continue with another 500 mils with caution not to cause fluid overload 3. Hypoglycemia secondary to poor po intake, patient has type 2 DM Blood sugars 132, will check HbA1c Continue on home medications 4. Hypertension, controlled, Losartan on hold on account of #2 Continue on hydralazine 100mg po tid 3. Paroxysmal Atrial fibrillation, EKG shows A flutter with variable AV block, rate controlled Continue on amiodarone, coreg, apixaban 4. Chronic systolic CHF, EF of 45%, CAD s/p stents, Hyperlipidemia, all remain stable Continue on aspirin, Plavix, coreg, pravastatin 5. DVT PPx- Eliquis Inpatient E&M: 27486 Init Hosp L3
[2019-10-13] MEDS: 0.9% Saline Lock 10 ML Syringe IV (02:38)
[2019-10-13 05:35] LABS: Absolute Lymphocyte Count 0.83 X10^3/uL (0.83-4.51); Absolute Neutrophil Count 6.6 X10^3/uL (2.0-7.7); Basophil# 0.05 X10^3/uL; Basophil% 0.6 % (0-1); Eosinophil# 0.13 X10^3/uL; Eosinophils% 1.5 % (0-5); Hematocrit 43.3 % (40-54); Hemoglobin 13.5 g/dL (13.0-16.5); Lymphocyte # 0.83 X10^3/ul (4.0); Lymphocyte % 9.5 % (19-41); Mean Corp Hgb Conc 31.2 g/dL (32-36); Mean Corpuscular Volume 83.4 fL (80-94); Mean Platelet Vol. 9.5 fl (6.2-12.0); Monocyte# 1.02 X10^3/uL; Monocyte% 11.7 % (0-10); NRBC Flagged by Analyzer 0 % (0-5); Neutrophil # 6.61 X10^3/uL (2.7-7.7); Platelet Count 230 K/mm3 (150-450); RBC Distribution Width CV 18.1 % (11.6-14.6); RBC Distribution Width SD 49.8 fl (35.1-43.9); Red Blood Count 5.19 M/mm3 (4.6-6.2); White Blood Count 8.7 K/mm3 (4.4-11.0)
[2019-10-13] MEDS: hydrALAZINE 50 MG Tablet 100 MG PO (05:56)
[2019-10-13 06:46] LABS: Bedside Glucose 62 mg/dL (70-110)
[2019-10-13 07:05] LABS: Bedside Glucose 92 mg/dL (70-110)
[2019-10-13 07:12] LABS: ALB/GLOB Ratio 0.8 RATIO (0.9-2.4); AST(SGOT) 26 U/L (15-37); Alanine Aminotransfer ALT/SGPT 34 U/L (16-61); Albumin, Serum 3.3 g/dL (3.2-5.0); Alkaline Phosphatase 64 U/L (45-117); Anion Gap 8 (5-15); BUN 36 mg/dL (7-18); BUN/Creat Ratio 19.7 RATIO (10-20); Calcium,Total 8.1 mg/dL (8.5-10.1); Chloride 102 mmol/L (98-107); Creatinine, Serum 1.83 mg/dL (0.70-1.30); EST Glomerular Filtration Rate 39 mL/min (>60); Est Glom Filt Rate - Afr Amer 48 mL/min (>60); Estimated Creatinine Clearance 39.17 ml/min; Globulin 3.9 g/dL (2.2-4.2); Glucose 54 mg/dL (74-106); Potassium 3.1 mmol/L (3.5-5.1); Protein, Total 7.2 g/dL (6.4-8.2); Sodium Level 138 mmol/L (136-145); Thyroid Stim Hormone (TSH) 1.83 uIU/mL (0.358-3.74)
[2019-10-13] MEDS: Aspirin 81 MG TAB.CHEW PO (07:48)
[2019-10-13] MEDS: Pantoprazole Sodium 40 MG Tablet PO (07:48)
[2019-10-13] MEDS: Clopidogrel Bisulfate 75 MG Tablet PO (07:49)
[2019-10-13] MEDS: Loratadine 10 MG Tablet PO (07:50)
[2019-10-13] MEDS: Carvedilol 25 MG Tablet PO (07:50)
[2019-10-13] MEDS: Amiodarone 200 MG Tablet PO (07:50)
[2019-10-13] MEDS: Ranolazine 500 MG Tablet PO (07:50)
[2019-10-13] MEDS: APIXABAN 2.5 MG TABLET PO (07:51)
[2019-10-13] MEDS: Insulin NPH Human 100 UNITS/ML PEN 22 UNITS SC (07:53)
[2019-10-13 07:59] LABS: Hemoglobin A1c 8.9 % (3.8-5.6)
--- NOTE | 2019-10-13 11:24 | DCINST_ITS ---
- Discharge Diagnoses Current Active Problems: Current Active and Chronic Problems (Last Reviewed 09/14/19 @ 11:04 by Lisette Elizondo) Chest pain (Acute) Transient disorientation (Acute) YOMI (acute kidney injury) (Acute) Fatigue (Acute) Generalized weakness (Acute) You will use the following diet at home:: Calorie/Carbohydrate Controlled (specify 1200, 1400, etc) - 1800 tangela / day, Cardiac Your food should be the consistency of: Regular Your liquids should be the consistency of: Regular/Thin Discharge Activity: Return to Normal Activity Allergies/Adverse Reactions: Allergies diltiazem Allergy (Verified 08/11/19 22:53) LOWER LEG SWELLING tamsulosin [From Flomax] Allergy (Verified 08/11/19 22:53) Shortness of breath/muscle weakness atorvastatin calcium [From Lipitor] Adverse Reaction (Verified 08/11/19 22:53) MUSCLE WEAKNESS Medications to take at Discharge Amiodarone HCl [Cordarone] 200 mg PO DAILY 03/13/19 Aspirin [Aspirin, Baby] 81 mg PO DAILY@0800 03/13/19 Loratadine 10 mg PO DAILY 03/13/19 Pantoprazole Sodium [Protonix] 40 mg PO BID 03/13/19 Ranolazine [Ranolazine ER] 500 mg PO BID 03/13/19 Esomeprazole Mag Trihydrate [Nexium] 40 mg PO BID #20 cap 03/15/19 Insulin NPH Human Isophane [Novolin N] 22 unit SQ BREAKFAST 04/20/19 Furosemide [Lasix] 80 mg PO BID 06/14/19 Insulin NPH Human Isophane [Humulin N] 20 unit SQ QHS 06/14/19 clopidogrel 75 mg tablet 75 mg PO DAILY #30 tab 06/23/19 hydralazine 100 mg tablet 100 mg PO TID #90 tab 06/23/19 isosorbide mononitrate 120 mg tablet,extended release 24 hr 120 mg PO BID #60 tab 06/23/19 losartan 100 mg tablet 100 mg PO DAILY #90 tab 07/21/19 apixaban 2.5 mg tablet 2.5 mg PO BID #60 tab 08/13/19 Nitroglycerin (INPATIENT USE) [Nitrostat] 0.4 mg SUBLINGUAL Q5M PRN #30 tab 08/15/19 Potassium Chloride [K-Dur] 20 meq PO DAILY #10 tab 08/15/19 carvedilol 25 mg tablet 25 mg PO BID #180 tab 09/14/19 pravastatin 40 mg tablet 40 mg PO QHS #90 tab 09/15/19 Primary Care Physician: Jennifer Spicer DO [Primary Care Provider] - Please follow up with your Primary Care Physician in: 1-2 weeks Test Results: Test results from this visit will be discussed in further detail at your follow- up appointment, if applicable. Proposed Discharge Date: 10/13/19
[2019-10-13 11:25] LABS: Bedside Glucose 251 mg/dL (70-110)
--- NOTE | 2019-10-13 11:55 | CASEMGMT ---
RN CM TOURIST ESCORT CM to room to meet with patient for initial transition planning/care coordination assessment. RN LISET introduced self and role at [facility]. Pt voices understanding and consents to assessment at this time. Pt sitting up in recliner chair in no distress at this time. Pt is A/O at this time and answers all questions appropriately. Care providers, pharmacy, and demographics verified/updated at this time. PCP: Dr Spicer Specialists: Dr Butler--sign letterer Preferred Pharmacy: [facility] [place]--[employer] Insurance: [employer] [facility] Prescription Benefit: Yes Living Will/HPOA: Has both LW and Healthcare POA, who is his daughter, Cristy. Copies of both found on e-file @ [facility]. LNOK: Daughter, Cristy Living Arrangements: Daughter, Cristy, and son-in-law live with him in 2-story apt. Has hillside to walk up and 1 step to enter. Has about 14 steps w/in the house. Pt is independent w/ADL's. Daughter does household mgmt tasks: cleaning, meals, laundry. Daughter goes w/him to doctor appts when she is able. Transportation: Pt states he hasn't driven much recently. His son-in-law provides most transportation. DME: States has the following DME: cane, clucometer. Has a walker available, but does not use. Pt states no need for further DME at this time. HHC/SNF: No history of SNF. Has had [facility] HHC in the past. Denies need for HHC. States may be interested in OP therapy but he is not certain. Pt made aware he can be given a script and take to any OP therapy location of his choice if he decides he wants to go. Pt states may have some difficulty with his son-in-law being available for all his appts. Pt made aware of [facility] Van transportation services to [place] and provided with their info/contact number. Script obtained for OP therapy and given to pt at this time. Pt wishes to return home and states has no concerns with going home at time of discharge. CM to follow for any further discharge planning/needs. Pt voices no further concerns/needs at this time. Advised pt to ask for CM if any further questions/concerns/needs arise. Voices understanding. PLAN: Home w/possible OP therapy. Joanna ARRINGTON RN, CM
--- NOTE | 2019-10-13 12:02 | PHA.DC.MC ---
Pharmacy Service has performed discharge medication reconciliation and counseling for this patient. No new medications at time of discharge review. Medications reviewed are previously reported home medcations. The patient's discharge medication list was reviewed for discrepancies and discrepancies were resolved. The patient was counseled on the following discharge medications and changes in medications for homegoing were reviewed. - The patient reports taking dual PPI therapy. Went and discussed with patient. Per patient, he reports purchasing Nexium OTC and takes in addition to Protonix prescribed by PCP. Discussed with fan Briscoe to DC Nexium and continue only Protonix. Medication change verbalized to patient at this time. The patient was able to verbally demonstrate an understanding of their discharge medications. Home Medications Amiodarone HCl [Cordarone] 200 mg PO DAILY 03/13/19 Aspirin [Aspirin, Baby] 81 mg PO DAILY@0800 03/13/19 Loratadine 10 mg PO DAILY 03/13/19 Pantoprazole Sodium [Protonix] 40 mg PO BID 03/13/19 Ranolazine [Ranolazine ER] 500 mg PO BID 03/13/19 Insulin NPH Human Isophane [Novolin N] 22 unit SQ BREAKFAST 04/20/19 Furosemide [Lasix] 80 mg PO BID 06/14/19 Insulin NPH Human Isophane [Humulin N] 20 unit SQ QHS 06/14/19 clopidogrel 75 mg tablet 75 mg PO DAILY #30 tab 06/23/19 hydralazine 100 mg tablet 100 mg PO TID #90 tab 06/23/19 isosorbide mononitrate 120 mg tablet,extended release 24 hr 120 mg PO BID #60 tab 06/23/19 losartan 100 mg tablet 100 mg PO DAILY #90 tab 07/21/19 apixaban 2.5 mg tablet 2.5 mg PO BID #60 tab 08/13/19 Nitroglycerin (INPATIENT USE) [Nitrostat] 0.4 mg SUBLINGUAL Q5M PRN #30 tab 08/15/19 Potassium Chloride [K-Dur] 20 meq PO DAILY #10 tab 08/15/19 carvedilol 25 mg tablet 25 mg PO BID #180 tab 09/14/19 pravastatin 40 mg tablet 40 mg PO QHS #90 tab 09/15/19
[2019-10-13] MEDS: Insulin Lispro 100 UNIT/ML INSULN.PEN SC (12:17)
--- NOTE | 2019-10-13 14:05 | PCM.DC.SUM ---
<Hang Gamble - Last Filed: 10/13/19 14:05> Discharge Date and Diagnosis Date of Admission: 10/13/19 Date of Discharge: 10/13/19 - Primary Discharge Diagnosis Acute Problems: YOMI on CKDIII 2/2 dehydration 2/2 decreased PO intake altered mental status 2/2 hypoglycemia - Secondary Discharge Diagnosis Chronic Problems: Chronic Problems (Last Reviewed 09/14/19 @ 11:04 by Lisette Elizondo) Systolic CHF, acute on chronic (Chronic) Atrial fibrillation and flutter (Chronic) CAD in [place] artery (Chronic) Renal insufficiency (Chronic) Stage 3 chronic kidney disease (Chronic) Essential hypertension (Chronic) 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) Nonsustained ventricular tachycardia (Chronic) Chronic systolic CHF (congestive heart failure) (Chronic) Presence of implantable cardioverter-defibrillator (ICD) (Chronic) 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) History of coronary artery stent placement (Chronic 06/08/16) SARA-RCA 06/15/2011, SARA-OM1 06/30/2011, SARA-LAD 08/20/2014, SARA-Prox- RCA 06/08/2016 Atherosclerosis of coronary artery of [place] without angina pectoris (Chronic) SARA-RCA 06/15/2011, SARA-OM1 06/30/2011, SARA-LAD 08/20/2014, SARA-Prox- RCA 06/08/2016 Paroxysmal atrial fibrillation (Chronic) Hyperlipidemia (Chronic) Type II diabetes mellitus (Chronic) STEMI (ST elevation myocardial infarction) (Chronic) Cardiomyopathy, ischemic (Chronic) Hospital Course and Treatment Imaging Results: CT/Brain/Head without Contrast IMPRESSION: No acute intracranial or calvarial abnormality. There is no major interval change. RAD/Chest 1 View (Portable) IMPRESSION: Cardiac pacemaker without acute cardiopulmonary disease. Operations: None Procedures: None Summary of Care Provided: Hospital Course: The patient is a 69 year old M with past medical history as above notably for paroxysmal atrial fibrillation, systolic congestive heart failure, type 2 diabetes, who presented to the emergency room with weakness and altered mental status. The patient had slept poorly the night before and then slept all day on the day of presentation. His daughter woke him up and he could not remember how he had gone from downstairs to being upstairs, and he cannot remember events from the past day. She checked his blood sugar and it was in the 50s, however she was able to get him to eat. Following this he remained very weak. She took him to the emergency room where he was found to have acute kidney injury. His blood sugar had normalized by then. CT of the brain was negative, chest x-ray was negative, troponin was negative x3, TSH was normal, urinalysis was normal. The patient was admitted for acute kidney injury, debility, altered mental status. He was maintained on IV fluids overnight. It was suspected that he likely took his home diabetes medications and then did not eat, had dehydration from no p.o. intake. This likely led to his altered mental status and acute kidney injury. He felt completely back to his normal self the following morning and had resolution of his acute kidney injury, and stable blood sugars. Patient's home medications were resumed and he was discharged home in stable condition. He will need follow-up with his PCP in 1 to 2 weeks. This patient was seen by Hang Gamble PA-C under the supervision of Doctor Chace. [] - Physical Exam Vitals/I&O's: Vital Signs Temp Pulse Resp BP Pulse Ox 98.0 F 118 H 18 141/68 H 95 10/13/19 12:19 10/13/19 12:19 10/13/19 12:19 10/13/19 12:19 10/13/19 12:19 Oxygen Delivery Method Room Air Weight: 201 lb 11.567 oz Body Mass Index (BMI) 29.9 Finger Stick Blood Glucose 105 Intake and Output for Last 24 Hours 10/11/19 10/12/19 10/13/19 23:59 23:59 23:59 Intake Total 1820 / 1820 Balance 1820 / 1820 General: Alert, Oriented x3, Cooperative HEENT: Atraumatic, PERRLA, EOMI, Normocephalic Neck: Supple, No JVD, Negative Carotid Bruits Lungs: Clear to auscultation, Normal air movement Cardiovascular: Regular rate, No murmurs Abdomen: Bowel Sounds Present, Soft, Non Tender Extremities: No edema, Capillary Refill Less than 3 Seconds Skin: No rashes, No breakdown Musculoskeletal: No Tenderness to Palpation of Joints or Extremities Neurological: Cranial nerves II-XII grossly intact Psych/Mental Status: Normal Affect, Appropriate, Alert and oriented to time, place, person, mood and affect Laboratory Results 10/12/19 22:45: WBC 8.1, RBC 5.28, Hgb 13.6, Hct 44.9, MCV 85.0, MCH 25.8 L, MCHC 30.3 L, RDW Std Deviation 51.6 H, RDW Coeff of [place] 17.9 H, Plt Count 262, MPV 9.1, Immature Gran % (Auto) 1.000 H, Neut % (Auto) 79.5 H, Lymph % (Auto) 8.0 L, Hayes % (Auto) 9.4, Eos % (Auto) 1.7, Baso % (Auto) 0.4, Absolute Neuts (auto) 6.4, Absolute Lymphs (auto) 0.65 L, Nucleated RBC % 0 10/12/19 22:45: PT 15.5 H, INR 1.3, APTT 29.9 10/12/19 22:45: Sodium 138, Potassium 3.5, Chloride 100, Carbon Dioxide 31.0, Anion Gap 7, BUN 40 H, Creatinine 2.18 H, Estim Creat Clear Calc 32.88, Est GFR (MDRD) Af Amer 39 L, Est GFR (MDRD) Non-Af 32 L, BUN/Creatinine Ratio 18.3, Glucose 132 H, Calcium 8.5, Total Bilirubin 0.40, AST 28, ALT 34, Alkaline Phosphatase 76, Troponin I < 0.015, Total Protein 7.9, Albumin 3.7, Globulin 4.2, Albumin/Globulin Ratio 0.9 10/12/19 22:45: Lactic Acid 1.9 10/12/19 22:45: Magnesium 2.0 10/12/19 22:45: Hemoglobin A1c 8.9 H 10/13/19 00:20: Urine Color Yellow, Urine Clarity Clear, Urine pH 6.5, Ur Specific [place] 1.005, Urine Protein Negative, Urine Glucose (UA) Normal, Urine Ketones Negative, Urine Occult Blood Negative, Urine Nitrite Negative, Urine Bilirubin Negative, Urine Urobilinogen Normal, Ur Leukocyte Esterase Negative, Urine RBC 0 SEEN, Urine WBC 0 SEEN, Ur Squamous Epith Cells 0 SEEN, Urine Bacteria 0 SEEN, Urine Mucus 0 SEEN 10/13/19 05:00: WBC 8.7, RBC 5.19, Hgb 13.5, Hct 43.3, MCV 83.4, MCH 26.0 L, MCHC 31.2 L, RDW Std Deviation 49.8 H, RDW Coeff of [place] 18.1 H, Plt Count 230, MPV 9.5, Immature Gran % (Auto) 0.700, Neut % (Auto) 76.0 H, Lymph % (Auto) 9.5 L, Hayes % (Auto) 11.7 H, Eos % (Auto) 1.5, Baso % (Auto) 0.6, Absolute Neuts (auto) 6.6, Absolute Lymphs (auto) 0.83, Nucleated RBC % 0 10/13/19 05:00: Sodium Cancelled, Potassium Cancelled, Chloride Cancelled, Carbon Dioxide Cancelled, Anion Gap Cancelled, BUN Cancelled, Creatinine Cancelled, Estim Creat Clear Calc Cancelled, Est GFR (MDRD) Af Amer Cancelled, Est GFR (MDRD) Non-Af Cancelled, BUN/Creatinine Ratio Cancelled, Glucose Cancelled, Calcium Cancelled, Total Bilirubin Cancelled, AST Cancelled, ALT Cancelled, Alkaline Phosphatase Cancelled, Troponin I Cancelled, Total Protein Cancelled, Albumin Cancelled, Globulin Cancelled, Albumin/Globulin Ratio Cancelled, TSH Cancelled 10/13/19 06:15: Sodium 138, Potassium 3.1 L, Chloride 102, Carbon Dioxide 28.0, Anion Gap 8, BUN 36 H, Creatinine 1.83 H, Estim Creat Clear Calc 39.17, Est GFR (MDRD) Af Amer 48 L, Est GFR (MDRD) Non-Af 39 L, BUN/Creatinine Ratio 19.7, Glucose 54 L, Calcium 8.1 L, Total Bilirubin 0.50, AST 26, ALT 34, Alkaline Phosphatase 64, Troponin I 0.019, Total Protein 7.2, Albumin 3.3, Globulin 3.9, Albumin/Globulin Ratio 0.8 L, TSH 1.83 10/13/19 06:33: POC Glucose 62 L 10/13/19 06:52: POC Glucose 92 10/13/19 08:52: Troponin I < 0.015 10/13/19 11:16: POC Glucose 251 H Discharge Diet: Low fat/ Low Cholesterol, 1800 Calorie Control Diet, 2000 mg Sodium Diet Discharge Activity: Return to Normal Activity Home Medications: Medications to take at Discharge Amiodarone HCl [Cordarone] 200 mg PO DAILY 03/13/19 Aspirin [Aspirin, Baby] 81 mg PO DAILY@0800 03/13/19 Loratadine 10 mg PO DAILY 03/13/19 Pantoprazole Sodium [Protonix] 40 mg PO BID 03/13/19 Ranolazine [Ranolazine ER] 500 mg PO BID 03/13/19 Insulin NPH Human Isophane [Novolin N] 22 unit SQ BREAKFAST 04/20/19 Furosemide [Lasix] 80 mg PO BID 06/14/19 Insulin NPH Human Isophane [Humulin N] 20 unit SQ QHS 06/14/19 clopidogrel 75 mg tablet 75 mg PO DAILY #30 tab 06/23/19 hydralazine 100 mg tablet 100 mg PO TID #90 tab 06/23/19 isosorbide mononitrate 120 mg tablet,extended release 24 hr 120 mg PO BID #60 tab 06/23/19 losartan 100 mg tablet 100 mg PO DAILY #90 tab 07/21/19 apixaban 2.5 mg tablet 2.5 mg PO BID #60 tab 08/13/19 Nitroglycerin (INPATIENT USE) [Nitrostat] 0.4 mg SUBLINGUAL Q5M PRN #30 tab 08/15/19 Potassium Chloride [K-Dur] 20 meq PO DAILY #10 tab 08/15/19 carvedilol 25 mg tablet 25 mg PO BID #180 tab 09/14/19 pravastatin 40 mg tablet 40 mg PO QHS #90 tab 09/15/19 Primary Care Physician: Jennifer pSicer DO [Primary Care Provider] - Please follow up with your Primary Care Physician in: 1-2 weeks Please Follow Up With: Jennifer Spicer DO Disposition: Home Minutes spent on discharge:: 35 Patient Condition:: Stable Medical Necessity - Tobacco Use Smoking Status: Former smoker Tobacco Use: Non-smoker Meaningful Use Info Meaningful Use Diagnoses (Choose all that apply): None applicable <Regina Mas - Last Filed: 10/13/19 14:35> Discharge Date and Diagnosis - Secondary Discharge Diagnosis Chronic Problems: Chronic Problems (Last Reviewed 09/14/19 @ 11:04 by Lisette Elizondo) Systolic CHF, acute on chronic (Chronic) Atrial fibrillation and flutter (Chronic) CAD in [place] artery (Chronic) Renal insufficiency (Chronic) Stage 3 chronic kidney disease (Chronic) Essential hypertension (Chronic) 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 of 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) Nonsustained ventricular tachycardia (Chronic) Chronic systolic CHF (congestive heart failure) (Chronic) Presence of implantable cardioverter-defibrillator (ICD) (Chronic) 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) History of coronary artery stent placement (Chronic 06/08/16) SARA-RCA 06/15/2011, SARA-OM1 06/30/2011, SARA-LAD 08/20/2014, SARA-Prox- RCA 06/08/2016 Atherosclerosis of coronary artery of [place] without angina pectoris (Chronic) SARA-RCA 06/15/2011, SARA-OM1 06/30/2011, SARA-LAD 08/20/2014, SARA-Prox- RCA 06/08/2016 Paroxysmal atrial fibrillation (Chronic) Hyperlipidemia (Chronic) Type II diabetes mellitus (Chronic) STEMI (ST elevation myocardial infarction) (Chronic) Cardiomyopathy, ischemic (Chronic) Hospital Course and Treatment Summary of Care Provided: Agree with the above based upon my own clinical history and physical exam Subjective: Pt states that he feels back to his baseline and feels that this all stemmed from him taking his pills and not eating breakfast and dehydration. - Physical Exam Vitals/I&O's: Vital Signs Temp Pulse Resp BP Pulse Ox 98.0 F 118 H 18 141/68 H 95 10/13/19 12:19 10/13/19 12:19 10/13/19 12:19 10/13/19 12:19 10/13/19 12:19 Oxygen Delivery Method Room Air Weight: 91.5 kg Body Mass Index (BMI) 29.9 Finger Stick Blood Glucose 105 Intake and Output for Last 24 Hours 10/11/19 10/12/19 10/13/19 23:59 23:59 23:59 Intake Total 1819 / 1820 Balance 1819 General: Alert, Oriented x3, Cooperative, No apparent distress, Well developed, Well nourished, - - WM, sitting up in a chair watching TV, appears well HEENT: Atraumatic, PERRLA, EOMI, Normocephalic, EAC Clear Oral: Moist Mucosa, No Gingival or Mucosal Lesions/ Ulcerations, - - poor dentition, mallampati 3 Neck: Supple, No JVD, Negative Hepatojugular Reflux, No Nodes, Trachea Midline, Thyroid Normal Size and Texture Lungs: Clear to auscultation, Normal air movement, No rhonchi, No wheeze, No rales Cardiovascular: Regular rate, Regular Rhythm, Normal S1, Normal S2, No murmurs, No rub noted, No Gallop Abdomen: Bowel Sounds Present, Soft, Non Tender, Non-Distended, Obese, No hernias noted Extremities: No clubbing, No cyanosis, No edema, Capillary Refill Less than 3 Seconds, Peripheral Pulses Normal Skin: No rashes, No breakdown Musculoskeletal: No Tenderness to Palpation of Joints or Extremities Lymphatic: No Cervical, Supraclavicular, or Inguinal Adenopathy Neurological: Cranial nerves II-XII grossly intact, Deep Tendon Reflexes 2+/4 and Symmetrical, Neuro grossly intact, Motor Exam 5/5 strength throughout, Muscle tone normal, Coordination normal Psych/Mental Status: Normal Affect, Appropriate, Alert and oriented to time, place, person, mood and affect Laboratory Results 10/12/19 22:45: WBC 8.1, RBC 5.28, Hgb 13.6, Hct 44.9, MCV 85.0, MCH 25.8 L, MCHC 30.3 L, RDW Std Deviation 51.6 H, RDW Coeff of [place] 17.9 H, Plt Count 262, MPV 9.1, Immature Gran % (Auto) 1.000 H, Neut % (Auto) 79.5 H, Lymph % (Auto) 8.0 L, Hayes % (Auto) 9.4, Eos % (Auto) 1.7, Baso % (Auto) 0.4, Absolute Neuts (auto) 6.4, Absolute Lymphs (auto) 0.65 L, Nucleated RBC % 0 10/12/19 22:45: PT 15.5 H, INR 1.3, APTT 29.9 10/12/19 22:45: Sodium 138, Potassium 3.5, Chloride 100, Carbon Dioxide 31.0, Anion Gap 7, BUN 40 H, Creatinine 2.18 H, Estim Creat Clear Calc 32.88, Est GFR (MDRD) Af Amer 39 L, Est GFR (MDRD) Non-Af 32 L, BUN/Creatinine Ratio 18.3, Glucose 132 H, Calcium 8.5, Total Bilirubin 0.40, AST 28, ALT 34, Alkaline Phosphatase 76, Troponin I < 0.015, Total Protein 7.9, Albumin 3.7, Globulin 4.2, Albumin/Globulin Ratio 0.9 10/12/19 22:45: Lactic Acid 1.9 10/12/19 22:45: Magnesium 2.0 10/12/19 22:45: Hemoglobin A1c 8.9 H 10/13/19 00:20: Urine Color Yellow, Urine Clarity Clear, Urine pH 6.5, Ur Specific [place] 1.005, Urine Protein Negative, Urine Glucose (UA) Normal, Urine Ketones Negative, Urine Occult Blood Negative, Urine Nitrite Negative, Urine Bilirubin Negative, Urine Urobilinogen Normal, Ur Leukocyte Esterase Negative, Urine RBC 0 SEEN, Urine WBC 0 SEEN, Ur Squamous Epith Cells 0 SEEN, Urine Bacteria 0 SEEN, Urine Mucus 0 SEEN 10/13/19 05:00: WBC 8.7, RBC 5.19, Hgb 13.5, Hct 43.3, MCV 83.4, MCH 26.0 L, MCHC 31.2 L, RDW Std Deviation 49.8 H, RDW Coeff of [place] 18.1 H, Plt Count 230, MPV 9.5, Immature Gran % (Auto) 0.700, Neut % (Auto) 76.0 H, Lymph % (Auto) 9.5 L, Hayes % (Auto) 11.7 H, Eos % (Auto) 1.5, Baso % (Auto) 0.6, Absolute Neuts (auto) 6.6, Absolute Lymphs (auto) 0.83, Nucleated RBC % 0 10/13/19 05:00: Sodium Cancelled, Potassium Cancelled, Chloride Cancelled, Carbon Dioxide Cancelled, Anion Gap Cancelled, BUN Cancelled, Creatinine Cancelled, Estim Creat Clear Calc Cancelled, Est GFR (MDRD) Af Amer Cancelled, Est GFR (MDRD) Non-Af Cancelled, BUN/Creatinine Ratio Cancelled, Glucose Cancelled, Calcium Cancelled, Total Bilirubin Cancelled, AST Cancelled, ALT Cancelled, Alkaline Phosphatase Cancelled, Troponin I Cancelled, Total Protein Cancelled, Albumin Cancelled, Globulin Cancelled, Albumin/Globulin Ratio Cancelled, TSH Cancelled 10/13/19 06:15: Sodium 138, Potassium 3.1 L, Chloride 102, Carbon Dioxide 28.0, Anion Gap 8, BUN 36 H, Creatinine 1.83 H, Estim Creat Clear Calc 39.17, Est GFR (MDRD) Af Amer 48 L, Est GFR (MDRD) Non-Af 39 L, BUN/Creatinine Ratio 19.7, Glucose 54 L, Calcium 8.1 L, Total Bilirubin 0.50, AST 26, ALT 34, Alkaline Phosphatase 64, Troponin I 0.019, Total Protein 7.2, Albumin 3.3, Globulin 3.9, Albumin/Globulin Ratio 0.8 L, TSH 1.83 10/13/19 06:33: POC Glucose 62 L 10/13/19 06:52: POC Glucose 92 10/13/19 08:52: Troponin I < 0.015 10/13/19 11:16: POC Glucose 251 H Inpatient E&M: 97076 Disch Hosp
--- NOTE | 2019-10-16 15:55 | CASEMGMT ---
RN CM Discharge Follow-up Phone Call: MAHESH: 12 Strata: 3 Call Date: 10/16/19 Discharge Date: 10/13/19 Time of Call: [id number] Duration: 1 min Admitting Diagnosis: YOMI/Debility RN LISET attempted to complete follow-up phone call after recent hospitalization. No answer, voice message left with return contact information.
== END 2019-10-13 12:59 | disposition home or self-care (01) | DRG 291 ==
LOC: ED 10-13 01:00 → PCU 10-13 01:06
PROVIDERS: Admitting Provider Internal Medicine; Emergency Provider Emergency Medicine; PCP Family Medicine; Visit Provider Internal Medicine
DX: I13.0 Hypertensive heart and chronic kidney disease with heart failure and stage 1 through stage 4 chronic kidney disease, or unspecified chronic kidney disease (principal); I50.23 Acute on chronic systolic (congestive) heart failure; N17.9 Acute kidney failure, unspecified; I48.92 Unspecified atrial flutter; I47.2 Ventricular tachycardia; E11.22 Type 2 diabetes mellitus with diabetic chronic kidney disease; N18.3 Chronic kidney disease, stage 3 (moderate); E86.0 Dehydration; R63.8 Other symptoms and signs concerning food and fluid intake; E11.649 Type 2 diabetes mellitus with hypoglycemia without coma; R41.82 Altered mental status, unspecified; I48.0 Paroxysmal atrial fibrillation; I25.10 Atherosclerotic heart disease of native coronary artery without angina pectoris; I51.3 Intracardiac thrombosis, not elsewhere classified; I25.2 Old myocardial infarction; I27.21 Secondary pulmonary arterial hypertension; E78.5 Hyperlipidemia, unspecified; I25.5 Ischemic cardiomyopathy; Z95.810 Presence of automatic (implantable) cardiac defibrillator; Z79.01 Long term (current) use of 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s; Z79.82 Long term (current) use of aspirin; Z79.4 Long term (current) use of insulin; Z79.899 Other long term (current) drug therapy; Z79.02 Long term (current) use of antithrombotics/antiplatelets; Z87.891 Personal history of nicotine dependence
CPT/HCPCS: 36415; 70450; 71045; 80053; 81001; 82962; 83036; 83605; 83735; 84443; 84484; 85025; 85610; 85730; 87040; 87086; 93005; 97161; 97165; 97802; 99284; J7030; J7040; A4216

== ENCOUNTER 2019-10-20 12:43 | Inpatient (IN) | payer MEDICARE, SELFPAY ==
[2016-06-12 14:02] VITALS: BMI 29.7
[2019-10-13 01:56] VITALS: BMI 29.9
[2019-10-20] VITALS (9 sets, daily range): BP systolic 127–142; BP diastolic 74–95; PULSE 73–120; RESP 20–24; TEMP 36.4–36.8; O2SAT 95–98; BMI 31.9; BMI 30.6
--- NOTE | 2019-10-20 13:04 | EKG12_ITS ---
Test Reason : SOB Blood Pressure : / mmHG Vent. Rate : 089 BPM Atrial Rate : 234 BPM P-R Int : 000 ms QRS Dur : 102 ms QT Int : 422 ms P-R-T Axes : 000 -37 -08 degrees QTc Int : 513 ms Atrial flutter with variable A-V block Left axis deviation Inferior infarct , age undetermined Anterolateral infarct , age undetermined Prolonged QT Abnormal ECG Confirmed by BELKIS METZ, JUANJOSE ([id number]), legal editor LISBET HAWK ([id number]) on 10/24/2019 9:20:04 AM Referred By: DEISI Confirmed By:JUANJOSE TAMAYO MD
[2019-10-20] MEDS: Ipratropium/Albuterol Sulfate 3 ML AMPUL.NEB INHALATION (13:18)
[2019-10-20 13:27] LABS: Absolute Lymphocyte Count 0.45 X10^3/uL (0.83-4.51); Absolute Neutrophil Count 5.4 X10^3/uL (2.0-7.7); Basophil# 0.04 X10^3/uL; Basophil% 0.6 % (0-1); Eosinophil# 0.14 X10^3/uL; Eosinophils% 2.1 % (0-5); Hematocrit 39.9 % (40-54); Hemoglobin 12.2 g/dL (13.0-16.5); Lymphocyte # 0.45 X10^3/ul (4.0); Lymphocyte % 6.6 % (19-41); Mean Corp Hgb Conc 30.6 g/dL (32-36); Mean Corpuscular Volume 85.1 fL (80-94); Mean Platelet Vol. 8.8 fl (6.2-12.0); Monocyte# 0.67 X10^3/uL; Monocyte% 9.9 % (0-10); NRBC Flagged by Analyzer 0 % (0-5); Neutrophil # 5.39 X10^3/uL (2.7-7.7); Neutrophil % 79.3 % (47-70); POSITIVE DIFFERENTIAL YES; Platelet Count 248 K/mm3 (150-450); RBC Distribution Width CV 16.8 % (11.6-14.6); RBC Distribution Width SD 50.9 fl (35.1-43.9); Red Blood Count 4.69 M/mm3 (4.6-6.2); White Blood Count 6.8 K/mm3 (4.4-11.0)
--- NOTE | 2019-10-20 13:30 | RAD_ITS ---
STUDY: X-RAY CHEST REASON FOR EXAM: Male, 69 years old. INCREASES SOB SINCE LAST NIGHT, HX OF AFIB, CHF, HTN, PACEMAKER AND CARDIAC STENTSx6 TECHNIQUE: Single AP portable view of the chest. COMPARISON: Comparison is made with prior study dated October 12, 2019. FINDINGS: EKG electrodes are seen. There is evidence of vascular congestion and mild degree of CHF. There is no demonstrated pleural abnormality. There is mild cardiac enlargement. A left-sided unipolar pacemaker is seen. Normal mediastinum and loco. Normal visualized pulmonary arteries. There is atherosclerotic tortuosity of the aortic arch and descending thoracic aorta. There are diffuse degenerative changes of the visualized thoracic spine. Normal visualized ribs, clavicles, and shoulders. There is no demonstrated abnormality of the visualized soft tissue structures of the upper abdomen. RAD/Chest 1 View (Portable) IMPRESSION: Mild cardiomegaly and vascular congestion in keeping with mild degree of CHF. Electronically Signed: Domingo Noyola, at 13:54 EDT , Service support ,
[2019-10-20 13:34] LABS: Differential Indicated SCAN CRITERIA MET
[2019-10-20 13:36] LABS: D-Dimer Quantitative (DVT/PE) 0.38 FEU/ug/m (0.27-0.49)
[2019-10-20 13:44] LABS: Anion Gap 4 (5-15); BUN 39 mg/dL (7-18); BUN/Creat Ratio 17.1 RATIO (10-20); Calcium,Total 8.3 mg/dL (8.5-10.1); Chloride 101 mmol/L (98-107); Creatinine, Serum 2.28 mg/dL (0.70-1.30); EST Glomerular Filtration Rate 31 mL/min (>60); Est Glom Filt Rate - Afr Amer 37 mL/min (>60); Estimated Creatinine Clearance 31.44 ml/min; Glucose 136 mg/dL (74-106); Potassium 4.2 mmol/L (3.5-5.1); Sodium Level 136 mmol/L (136-145)
[2019-10-20 13:59] LABS: BNP,B-Type NATRIURETIC PEPTIDE 359.3 pg/mL (0-100)
--- NOTE | 2019-10-20 14:08 | ED.VISSUMM ---
- ER Visit Summary Date of Service: 10/20/19 Chief Complaint: [Shortness of breath] History of Present Illness: The patient is a 69 M [presents to the emergency department with shortness of breath started yesterday. Patient had a mild dry cough. States that last night he also started wheezing. Patient denies any chest pain. Denies any fevers. Patient states that he is been pretty isolated to his room and really has not gone anywhere. No COVID-19 exposures. Patient complains of exertional dyspnea. He does have history of CHF, coronary artery disease, A. fib, cardiomyopathy, diabetes, hypertension, high cholesterol.] Physical Examination: [HEENT-PERRLA, EOMI. Cranial nerves II through XII grossly intact. TMs clear. Mucous membranes moist. No adenopathy. Cardiovascular-irregular with a 2 out of 6 systolic ejection murmur noted. Lungs-few rales in the bases. To expiratory wheezes noted. No accessory muscle use or retractions. Abdomen-normoactive bowel sounds, soft, nontender, no rebound or rigidity, no peritoneal signs. Extremities-intact ?4, normal range of motion, normal pulses, atraumatic. Patient has +1 edema both lower extremities.] Test Results: [EKG obtained arrival showed atrial flutter with a ventricular rate of 89 bpm with old anterior lateral infarct and old inferior infarct noted. When compared with prior EKG from October 12, 2019 no significant changes noted. CBC with it showing a 6.8, hemoglobin 12, hematocrit 40, platelet 248. Chemistries unremarkable. BUN was 39 and creatinine was 2.28. Troponin less than 0.015. BNP was 359. D-dimer was 0.38. Chest x-ray showed cardiomegaly and some mild congestion consistent with mild CHF.] Emergency Department Course and Treatment: [Patient was given a DuoNeb aerosol. Patient was given Lasix 80 mg IV. Patient with minimal activity has significant dyspnea. He still feels dyspneic at rest.] Treatment Plan: [Admit] Disposition: [Admit] Impression: [Dyspnea CHF] This note was generated with [employer] dictation software. It may contain incorrect words, spelling, and punctuation that were not noted in review of the chart prior to signing ED Disposition - Plan for ED Patient: Referrals: Jennifer Spicer DO [Primary Care Provider] -
[2019-10-20 14:12] LABS: Platelet Estimate ADEQUATE (ADEQ); Red Cell Morphology NORM C+C NORMAL (NORM C&C)
--- NOTE | 2019-10-20 14:16 | NURSING ---
DR ALEXANDER EDGE
--- NOTE | 2019-10-20 14:17 | HP.PCM_ITS ---
History of Present Illness Date of Admission: 10/20/19 Chief Complaint: shortness of breath, wheezing The patient is a 69 year old M with an extensive past medical history as outlined. He was admitted through the ED on 10/20/2019 with a complaint of shortness of breath and wheezing which have been going on for a few days. He had a cough which was dry and had assisted wheezing and admitted to orthopnea and PND. He admitted to mild lower extremity swelling but denied the cough being productive. He denied any fever or chills, chest pain, nausea vomiting or diarrhea. Review of symptoms otherwise negative. He has been compliant with his heart failure medication. He denies exposure to anyone with COVID. In the ED, vitals showed temperature of 98 Fahrenheit with blood pressure of 142/95, pulse rate of 104 respiratory rate of 20. Pulse ox was 96% on room air. Chemistry showed sodium of 136 with creatinine of 2.28 and initial troponin of less than 0.015. BNP was 359.3. CBC showed hemoglobin of 12.2 with WBC of 6.8 and platelets of 248. BNP was 359.3. Chest x-ray showed mild cardiomegaly with vascular congestion in keeping with mild degree of CHF and EKG showed atrial flutter. He has been admitted to be managed for acute exacerbation of heart failure. 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) Nonsustained ventricular tachycardia (Chronic) Chronic systolic CHF (congestive heart failure) (Chronic) Presence of implantable cardioverter-defibrillator (ICD) (Chronic) 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) History of coronary artery stent placement (Chronic 06/08/16) SARA-RCA 06/15/2011, SARA-OM1 06/30/2011, SARA-LAD 08/20/2014, SARA-Prox- RCA 06/08/2016 Atherosclerosis of coronary artery of [place] heart without angina pectoris (Chronic) SARA-RCA 06/15/2011, SARA-OM1 06/30/2011, SARA-LAD 08/20/2014, SARA-Prox- RCA 06/08/2016 Paroxysmal atrial fibrillation (Chronic) Hyperlipidemia (Chronic) Type II diabetes mellitus (Chronic) STEMI (ST elevation myocardial infarction) (Chronic) Cardiomyopathy, ischemic (Chronic) Medical History: Medical History (Last Reviewed 09/14/19 @ 11:04 by Lisette Elizondo) Essential hypertension (Chronic) I10 nursing home current use of 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) Z79.01 Nonsustained ventricular tachycardia (Chronic) I47.2 Chronic systolic CHF (congestive heart failure) (Chronic) I50.22 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) I27.21 Atherosclerosis of coronary artery of [place] heart without angina pectoris (Chronic) I25.10 SARA-RCA 06/15/2011, SARA-OM1 06/30/2011, SARA-LAD 08/20/2014, SARA-Prox- RCA 06/08/2016 Paroxysmal atrial fibrillation (Chronic) I48.0 Hyperlipidemia (Chronic) E78.5 Type II diabetes mellitus (Chronic) E11.9 STEMI (ST elevation myocardial infarction) (Chronic) Cardiomyopathy, ischemic (Chronic) I25.5 DDD (degenerative disc disease) Obesity (BMI 30.0-34.9) E66.9 Old myocardial infarction I25.2 inferior lateral and Anterior Apical Cardiogenic shock Onset Date: 06/08/16 R57.0 Hypertensive emergency I16.1 Esophagitis determined by endoscopy (Inactive) Onset Date: 05/06/17 K20.9 Allergies diltiazem Allergy (Verified 10/20/19 12:57) LOWER LEG SWELLING tamsulosin [From Flomax] Allergy (Verified 10/20/19 12:57) Shortness of breath/muscle weakness atorvastatin calcium [From Lipitor] Adverse Reaction (Verified 10/20/19 12:57) MUSCLE WEAKNESS Home Medications: Ambulatory Orders Medication Instructions Recorded Amiodarone HCl [Cordarone] 200 mg PO DAILY 03/13/19 Loratadine 10 mg PO DAILY 03/13/19 Pantoprazole Sodium [Protonix] 40 mg PO BID 03/13/19 Ranolazine [Ranolazine ER] 500 mg PO BID 03/13/19 Insulin NPH Human Isophane 22 unit SQ BREAKFAST 04/20/19 [Novolin N] Furosemide [Lasix] 80 mg PO BID 06/14/19 Insulin NPH Human Isophane 20 unit SQ QHS 06/14/19 [Humulin N] clopidogrel 75 mg tablet 75 mg PO DAILY #30 tab 06/23/19 hydralazine 100 mg tablet 100 mg PO TID #90 tab 06/23/19 isosorbide mononitrate 120 mg 120 mg PO BID #60 tab 06/23/19 tablet,extended release 24 hr losartan 100 mg tablet 100 mg PO DAILY #90 tab 07/21/19 apixaban 2.5 mg tablet 2.5 mg PO BID #60 tab 08/13/19 Nitroglycerin (INPATIENT USE) 0.4 mg SUBLINGUAL Q5M PRN #30 tab 08/15/19 [Nitrostat] carvedilol 25 mg tablet 25 mg PO BID #180 tab 09/14/19 pravastatin 40 mg tablet 40 mg PO QHS #90 tab 09/15/19 Aspirin [Aspirin, Baby] 81 mg PO DAILY@0800 10/20/19 Potassium Chloride [K-Dur] 20 meq PO DAILY 10/20/19 Surgical History: Surgical History (Last Reviewed 09/14/19 @ 11:04 by Lisette Elizondo) Presence of implantable cardioverter-defibrillator (ICD) (Chronic) Z95.810 History of coronary artery stent placement (Chronic) Onset Date: 06/08/16 Z95.5 SARA-RCA 06/15/2011, SARA-OM1 06/30/2011, SARA-LAD 08/20/2014, SARA-Prox- RCA 06/08/2016 History of cardioversion Onset Date: 04/10/16 Z98.890 01/14/15 (unsuccessful), 04/10/2016 H/O elbow surgery Z98.890 H/O left wrist surgery Z98.890 S/P right inguinal hernia repair Z98.890, Z87.19 Status post knee surgery Z98.890 Surgical History: herniorrhaphy, total knee arthroplasty - ACLS repair, - - s/p stents, AICD s/p cardioversion, s/p wrist and elbow surgery Psychiatric History: No pertinent psych hx Lives: With Family Smoking Status: Former smoker Alcohol: Occasional Drugs: None - *Family History Maternal Family History: Family History (Last Reviewed 09/14/19 @ 11:04 by Lisette Elizondo) Brother Sudden cardiac History Items: Hypertension Paternal Family History: Family History (Last Reviewed 09/14/19 @ 11:04 by Lisette Elizondo) Brother Sudden cardiac History Items: Unknown Sibling Family History: Family History (Last Reviewed 09/14/19 @ 11:04 by Lisette Elizondo) Brother Sudden cardiac History Items: Heart Disease Review of Systems Constitutional: Denies: Chills, Fever, Malaise, Weakness, Weight Change Eyes: Denies: Blurred vision HEENT: Denies: Head Aches, Sinus Congestion, Sinus Drainage Cardiovascular: Reports: Edema, Orthopnea, Paroxysmal Noc. Dyspnea. Denies: Chest Pain, Chest Pressure, Palpitations Respiratory: Reports: Shortness of Breath, Shortness of breath upon exertion, Sputum production. Denies: Cough, Shortness of breath at rest Gastrointestinal: Denies: Abdominal Pain, Nausea, Vomiting Genitourinary: Denies: Dysuria Musculoskeletal: Denies: Joint Pain, Joint Tenderness Skin: Denies: Rash, Wounds Neurological: Denies: Numbness, Tingling, Focal weakness Psychiatric: Denies: Anxiety, Depression, Homicidal Ideations, Suicidal Ideations Hematologic/ Lymphatic: Denies: Easy Bruising, Easy Bleeding VTE Information - Inpt Only VTE Present on Admission: No VTE Pharm Prophylaxis ordered?: Yes - Physical Exam Vitals/I&O's: Vital Signs Temp Pulse Resp BP Pulse Ox 98.0 F 104 H 20 H 142/95 H 96 10/20/19 12:48 10/20/19 13:18 10/20/19 13:18 10/20/19 12:48 10/20/19 12:48 Oxygen Delivery Method Room Air Weight: 216 lb 4.375 oz Body Mass Index (BMI) 31.9 Finger Stick Blood Glucose 105 General: Alert, Oriented x3, Cooperative, No apparent distress HEENT: Atraumatic, PERRLA, EOMI, Normocephalic Oral: Dry Mucosa Neck: Supple, No JVD, Negative Carotid Bruits Lungs: - - decreased breath sounds bibasally, with coarse crackles Cardiovascular: Normal S1, Normal S2, Irregular Rate - atrial flutter, Tachycardic Abdomen: Bowel Sounds Present, Soft, Non Tender, Non-Distended, No Hepato- splenomegaly Extremities: No clubbing, No cyanosis, - - mild 1+ bipedal edema Skin: No rashes, No breakdown Musculoskeletal: No Tenderness to Palpation of Joints or Extremities Lymphatic: No Cervical, Supraclavicular, or Inguinal Adenopathy Neurological: Cranial nerves II-XII grossly intact, Neuro grossly intact, Motor Exam 5/5 strength throughout Psych/Mental Status: Normal Affect, Appropriate, Alert and oriented to time, place, person, mood and affect Laboratory Results 10/20/19 13:10: WBC 6.8, RBC 4.69, Hgb 12.2 L, Hct 39.9 L, MCV 85.1, MCH 26.0 L, MCHC 30.6 L, RDW Std Deviation 50.9 H, RDW Coeff of [place] 16.8 H, Plt Count 248, MPV 8.8, Immature Gran % (Auto) 1.500 H, Neut % (Auto) 79.3 H, Lymph % (Auto) 6.6 L, Yancey % (Auto) 9.9, Eos % (Auto) 2.1, Baso % (Auto) 0.6, Absolute Neuts (auto) 5.4, Absolute Lymphs (auto) 0.45 L, Nucleated RBC % 0, Platelet Estimate ADEQUATE, RBC Morphology NORM C+C 10/20/19 13:10: D-Dimer Quant (PE/DVT) 0.38 10/20/19 13:10: Sodium 136, Potassium 4.2, Chloride 101, Carbon Dioxide 31.0, Anion Gap 4 L, BUN 39 H, Creatinine 2.28 H, Estim Creat Clear Calc 31.44, Est GFR (MDRD) Af Amer 37 L, Est GFR (MDRD) Non-Af 31 L, BUN/Creatinine Ratio 17.1, Glucose 136 H, Calcium 8.3 L, Troponin I < 0.015 10/20/19 13:10: B-Natriuretic Peptide 359.3 H Diagnostic Data Chest X-Ray 10/20/19 13:30 IMPRESSION: Mild cardiomegaly and vascular congestion in keeping with mild degree of CHF. Electronically Signed: Domingo Noyola, at 13:54 EDT , Service support , Assessment/Plan All Active Problems (Last Reviewed 09/14/19 @ 11:04 by Lisette A Caro) Chest pain (Acute) Transient disorientation (Acute) YOMI (acute kidney injury) (Acute) Fatigue (Acute) Generalized weakness (Acute) 69 y/o admitted with a complaint of shortness of breath 1. Acute on chronic exacerbation of HFpEF * admit To PCU with telemetry * Chest x-ray showed evidence of heart failure * Initial troponin was negative. We will cycle. * BNP was 359.3. * 2D echo (12/06/18): EF of 45%, wuith stage 2 diastolic dysfunction and severely hypokinetic LV, and mildly dilated RV, and RVSP of 45mmhg * Diurese patient with IV Lasix drip * Monitor intake and output chart strictly. * Fluid restriction to thousand 500 cc daily. * get another echo since last echo was 10 months ago * 2. YOMI on CKD: Creatinine is 2.28 with a baseline of around 1.8. Being diuresed with IV Lasix which may cause creatinine trended upwards. Will monitor. 3. Atrial fibrillation: Heart rate was 104. EKG showed atrial flutter. On amiodarone Eliquis. 4. CAD status post stents: On aspirin and Plavix as well as carvedilol and Imdur. Also on statin. has ICD in place 5. Hypertension: Hold losartan on account of YOMI on CKD. Continue carvedilol and hydralazine. 6. Hyperlipidemia: On statin 7. Type 2 diabetes mellitus: * On insulin NPH 22 units in the morning and 20 units at night. * Insulin sliding scale. * Accu-Cheks AC at bedtime. * DVT prophylaxis: on eliquis Code status: full code * Patient counseled extensively about different types of CODE STATUS including full code, DNR CCA and DNR CCA. Patient elects to be full code. * Total [id number] time 16 minutes. Inpatient E&M: 29282 Init Hosp L3 Procedures: 82406 Advncd Care Plan 30 Min
--- NOTE | 2019-10-20 14:23 | NURSING ---
PCU KORAM DYSPNEA, CHF
[2019-10-20] MEDS: Furosemide 100 MG/10 ML Vial 80 MG IV (14:38)
[2019-10-20 16:25] LABS: Bedside Glucose 120 mg/dL (70-110)
[2019-10-20] MEDS: 0.9% Saline Lock 10 ML Syringe IV (17:17)
--- NOTE | 2019-10-20 18:27 | CASEMGMT ---
Addendum entered by Cindy Nam 10/21/19 10:56: DEVYN HUTCHINS NOTE: To room to talk with pt. Pt sitting up in chair in room, A/O. Discussed discharge planning/needs. Pt denies having any needs/concerns w/going home @ discharge. He states he still has the appt scheduled w/Dr Spicer for 10/31. He denies wanting any HHC and states he still has the script for OP therapy and states is still considering going, but wants to wait until he is feeling better. Discussed CCN and pt given [facility] card/contact info. He declines referral to CCN at this time, stating that his daughter takes care of all of that for me. He states she manages his medications/sets them up for him. He did state he would show her the info/rac card with their info to see if she may feel this would be beneficial to him. He denies having any discharge needs or concerns. Instructed to ask for CM if anything arises. He voices understanding. Joanna ARRINGTON RN, CM Original Note: DEVYN HUTCHINS Re-admission Note: Previous Admission: Pt admitted 10/13/19 for YOMI and Debility. Pt presented w/weakness and altered mental status. CT of brain negative, CXR, troponin x 3, U/A all negative. Pt discharged to home 10/13/19 w/script for OP therapy and to f/u w/PCP in 1-2 weeks. Appt made for pt w/Dr Spicer for 10/31. Current admission: Pt re-admitted 10/04/19 for YOMI, Debility, and CHF Exac. Pt presented with SOB and wheezing. BTNP 359.3. Per H/P documentation, pt has been compliant w/his heart failure medication. Chart review completed: See DEVYN HUTCHINS assessment 10/12. PCP: Dr Spicer. Appt made @ d/c last admit for 10/31. 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 Dtr supportive and goes to doctor appts when she is able. Pt has no transportation concerns and had no DME needs. Pt does not have home O2. Has had [facility] HHC in the past. Pt declined offer of HHC last admit. Was given script for OP therapy and [facility] transportation info. Joanna ARRINGTON RN, CM
[2019-10-20] MEDS: Ranolazine 500 MG Tablet PO (21:54)
[2019-10-20] MEDS: Pantoprazole Sodium 40 MG Tablet PO (21:54)
[2019-10-20] MEDS: Pravastatin 40 MG Tablet PO (21:54)
[2019-10-20] MEDS: Carvedilol 25 MG Tablet PO (21:54)
[2019-10-20] MEDS: APIXABAN 2.5 MG TABLET PO (21:55)
[2019-10-20] MEDS: hydrALAZINE 50 MG Tablet 100 MG PO (21:56)
--- NOTE | 2019-10-20 22:27 | ECHOD_ITS ---
Reason For Study: ARRHYTHMIA Procedure This was a 2D Doppler, Color Flow transthoracic echocardiogram. Exam performed portable in patient room. Left Ventricle Mildly dilated left ventricle. [place] : Akinetic. Rest of the heart are moderately hypokinetic EF approximately 35%. Right Ventricle Normal RV size. Normal systolic function. Atria The left atrium is mildly enlarged. Normal right atrium. Mitral Valve Mild mitral annular calcification. Mild (1+) mitral valve insufficiency. Tricuspid Valve Right ventricular systolic pressure estimated to be 52 mmHg. Moderate pulmonary hypertension. Mild to moderate (1-2+) tricuspid valve insufficiency. Aortic Valve Aortic sclerosis, no stenosis. Trivial aortic valve insufficiency. Great Vessels The inferior vena cava is dilated. No collapse of the inferior vena cava. MMode/2D Measurements & Calculations LVIDd: 4.9 cm IVSd: 1.0 cm Ao root diam: 3.5 cm LVIDs: 3.6 cm LVPWd: 1.0 cm RVDd: 3.9 cm FS: 26.7 % LAV(MOD-bp): 80.1 ml LA dimension(2D): 4.2 cm LA A4 area: 23.5 cm2 LAV(MOD-bp) Indexed: 38.4 ml/m2 LAV(MOD-sp2): 83.0 ml LAV(MOD-sp4): 73.2 ml RA A4 area: 18.4 cm2 Time Measurements MV dec time: 0.13 sec Doppler Measurements & Calculations MV E max kevin: 122.8 cm/sec Lat Peak E' Kevin: 11.0 cm/sec Med Peak E' Kevin: 7.0 cm/sec MV A max kevin: 58.6 cm/sec E/E' lat: 11.2 E/E' med: 17.5 MV E/A: 2.1 MV V2 max: 126.2 cm/sec Ao V2 max: 123.4 cm/sec LV V1 max: 90.1 cm/sec MV max P.4 mmHg Ao max P.1 mmHg LV V1 max P.3 mmHg MV V2 mean: 79.9 cm/sec MV mean P.0 mmHg MV V2 VTI: 29.5 cm PA V2 max: 95.6 cm/sec TR max kevin: 332.9 cm/sec MV P1/2t-pr_phl: 62.1 msec TR max P.3 mmHg Interpretation Summary Mildly dilated left ventricle. [place] : Akinetic. Rest of the heart are moderately hypokinetic EF approximately 35% Moderate pulmonary hypertension. The inferior vena cava is dilated No collapse of the inferior vena cava. Mild (1+) mitral valve insufficiency. Mild to moderate (1-2+) tricuspid valve insufficiency. Ordering Physician: Luci Purvis Referring Physician: GORDON LOCKETT Performed By: Caryn, Clau, RDCS, RVT
[2019-10-20] MEDS: Insulin NPH Human 100 UNITS/ML PEN 20 UNITS SC (22:38)
[2019-10-20 22:56] LABS: Bedside Glucose 140 mg/dL (70-110)
[2019-10-21] VITALS (11 sets, daily range): BP systolic 89–128; BP diastolic 54–81; PULSE 85–105; RESP 14–18; TEMP 36.6–36.7; O2SAT 90–98
[2019-10-21 06:38] LABS: Absolute Lymphocyte Count 0.76 X10^3/uL (0.83-4.51); Absolute Neutrophil Count 6.3 X10^3/uL (2.0-7.7); Basophil# 0.05 X10^3/uL; Basophil% 0.6 % (0-1); Eosinophil# 0.16 X10^3/uL; Eosinophils% 1.9 % (0-5); Hematocrit 39.8 % (40-54); Hemoglobin 12.1 g/dL (13.0-16.5); Lymphocyte # 0.76 X10^3/ul (4.0); Lymphocyte % 9.2 % (19-41); Mean Corp Hgb Conc 30.4 g/dL (32-36); Mean Corpuscular Hgb 25.9 pg (27.0-32.0); Mean Corpuscular Volume 85.2 fL (80-94); Mean Platelet Vol. 9.4 fl (6.2-12.0); Monocyte# 0.87 X10^3/uL; Monocyte% 10.6 % (0-10); NRBC Flagged by Analyzer 0 % (0-5); Neutrophil # 6.34 X10^3/uL (2.7-7.7); Platelet Count 266 K/mm3 (150-450); RBC Distribution Width CV 17.6 % (11.6-14.6); RBC Distribution Width SD 52.9 fl (35.1-43.9); Red Blood Count 4.67 M/mm3 (4.6-6.2); White Blood Count 8.2 K/mm3 (4.4-11.0)
[2019-10-21] MEDS: hydrALAZINE 50 MG Tablet 100 MG PO (06:42)
[2019-10-21 07:07] LABS: Anion Gap 6 (5-15); BUN 42 mg/dL (7-18); BUN/Creat Ratio 17.7 RATIO (10-20); Calcium,Total 8.1 mg/dL (8.5-10.1); Chloride 100 mmol/L (98-107); Creatinine, Serum 2.37 mg/dL (0.70-1.30); EST Glomerular Filtration Rate 29 mL/min (>60); Est Glom Filt Rate - Afr Amer 35 mL/min (>60); Estimated Creatinine Clearance 30.25 ml/min; Glucose 77 mg/dL (74-106); Potassium 3.4 mmol/L (3.5-5.1); Sodium Level 137 mmol/L (136-145)
[2019-10-21 07:11] LABS: Bedside Glucose 79 mg/dL (70-110)
[2019-10-21] MEDS: Loratadine 10 MG Tablet PO (08:18)
[2019-10-21] MEDS: Amiodarone 200 MG Tablet PO (08:18)
[2019-10-21] MEDS: Pantoprazole Sodium 40 MG Tablet PO (08:19)
[2019-10-21] MEDS: APIXABAN 2.5 MG TABLET PO (08:19)
[2019-10-21] MEDS: Ranolazine 500 MG Tablet PO (08:19)
[2019-10-21] MEDS: Carvedilol 25 MG Tablet PO (08:20)
[2019-10-21] MEDS: Clopidogrel Bisulfate 75 MG Tablet PO (08:20)
[2019-10-21] MEDS: Insulin NPH Human 100 UNITS/ML PEN 22 UNITS SC (08:21)
[2019-10-21 11:25] LABS: Bedside Glucose 143 mg/dL (70-110)
--- NOTE | 2019-10-21 12:39 | PCM.DC ---
You will use the following diet at home:: Cardiac Discharge Activity: Return to Normal Activity Call your doctor if you observe: Shortness of breath, Dizziness, Fainting spells, Chest pain Allergies/Adverse Reactions: Allergies diltiazem Allergy (Verified 10/20/19 12:57) LOWER LEG SWELLING tamsulosin [From Flomax] Allergy (Verified 10/20/19 12:57) Shortness of breath/muscle weakness atorvastatin calcium [From Lipitor] Adverse Reaction (Verified 10/20/19 12:57) MUSCLE WEAKNESS Medications to take at Discharge Amiodarone HCl [Cordarone] 200 mg PO DAILY 03/13/19 Loratadine 10 mg PO DAILY 03/13/19 Pantoprazole Sodium [Protonix] 40 mg PO BID 03/13/19 Ranolazine [Ranolazine ER] 500 mg PO BID 03/13/19 Insulin NPH Human Isophane [Novolin N] 22 unit SQ BREAKFAST 04/20/19 Furosemide [Lasix] 80 mg PO BID 06/14/19 Insulin NPH Human Isophane [Humulin N] 20 unit SQ QHS 06/14/19 clopidogrel 75 mg tablet 75 mg PO DAILY #30 tab 06/23/19 hydralazine 100 mg tablet 100 mg PO TID #90 tab 06/23/19 isosorbide mononitrate 120 mg tablet,extended release 24 hr 120 mg PO BID #60 tab 06/23/19 losartan 100 mg tablet 100 mg PO DAILY #90 tab 07/21/19 apixaban 2.5 mg tablet 2.5 mg PO BID #60 tab 08/13/19 Nitroglycerin (INPATIENT USE) [Nitrostat] 0.4 mg SUBLINGUAL Q5M PRN #30 tab 08/15/19 carvedilol 25 mg tablet 25 mg PO BID #180 tab 09/14/19 pravastatin 40 mg tablet 40 mg PO QHS #90 tab 09/15/19 Aspirin [Aspirin, Baby] 81 mg PO DAILY@0800 10/20/19 Spironolactone 50 mg PO DAILY #30 tab 10/21/19 The following prescriptions were given: Spironolactone 50 mg PO DAILY #30 tab Transmission Status: Received by [facility] Primary Care Physician: Jennifer Spicer DO [Primary Care Provider] - Please follow up with your Primary Care Physician in: 1 Week Test Results: Test results from this visit will be discussed in further detail at your follow-up appointment, if applicable. Please Follow Up With: Yuliet Nayak PA When: 3-5 days Proposed Discharge Date: 10/21/19
--- NOTE | 2019-10-21 13:25 | PCM.DC.SUM ---
Discharge Date and Diagnosis Date of Admission: 10/20/19 Date of Discharge: 10/21/19 - Primary Discharge Diagnosis Acute Problems: 1. Acute on chronic chronic heart failure with reduced ejection fraction 2. YOMI on Chronic kidney disease stage III 3. Paroxysmal atrial fibrillation 4. Hypertension 5. CAD with history of stents 6. Type 2 diabetes mellitus 7. Chronic cough, history of extensive tobacco use-suspect undiagnosed COPD. 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) Nonsustained ventricular tachycardia (Chronic) Chronic systolic CHF (congestive heart failure) (Chronic) Presence of implantable cardioverter-defibrillator (ICD) (Chronic) 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) History of coronary artery stent placement (Chronic 06/08/16) SARA-RCA 06/15/2011, SARA-OM1 06/30/2011, SARA-LAD 08/20/2014, SARA-Prox- RCA 06/08/2016 Atherosclerosis of coronary artery of [place] heart without angina pectoris (Chronic) SARA-RCA 06/15/2011, SARA-OM1 06/30/2011, SARA-LAD 08/20/2014, SARA-Prox- RCA 06/08/2016 Paroxysmal atrial fibrillation (Chronic) Hyperlipidemia (Chronic) Type II diabetes mellitus (Chronic) STEMI (ST elevation myocardial infarction) (Chronic) Cardiomyopathy, ischemic (Chronic) Hospital Course and Treatment Imaging Results: Diagnostic Data Chest X-Ray 10/20/19 13:30 IMPRESSION: Mild cardiomegaly and vascular congestion in keeping with mild degree of CHF. Electronically Signed: Domingo Dennys, at 13:54 EDT , Service support , Operations: None Procedures: 2-D Echocardiogram Summary of Care Provided: The patient is a 69 year old M admitted 10/20/2019 due to shortness of breath and wheezing. 1. Acute on chronic chronic heart failure with reduced ejection fraction-BNP 359. Chest x-ray consistent with mild CHF. Echocardiogram completed and demonstrates an EF of 35%, mild mitral valve insufficiency, mild to moderate tricuspid valve insufficiency. Prior echo December 2018 demonstrated an EF of 45%. Echo May 2017 with EF 25%. Patient placed on Lasix drip on admission. Patient had significant diuresis and rapid improvement in shortness of breath and lower extremity swelling. Patient improved much quicker than anticipated and was discharged home in stable condition. Walking pulse ox completed and patient's oxygen remained stable with ambulation. Lower extremity edema resolved. Patient denies further shortness of breath. Continue home Lasix 80 mg twice daily, additionally started on spironolactone 50 mg daily. Follow-up with cardiology closely at discharge. 2. YOMI on Chronic kidney disease stage III-possible worsening of CKD as creatinine has fluctuated up and down per prior labs. Recommend repeat BMP within 1 week. 3. Paroxysmal atrial fibrillation-continue carvedilol, amiodarone, Eliquis. 4. Hypertension-stable, continue carvedilol, Lasix, isosorbide, losartan, hydralazine regimen. Initiated on Aldactone as noted above. 5. CAD with history of stents-continue aspirin, Eliquis, carvedilol, Plavix, isosorbide, statin, Ranexa, losartan. 6. Type 2 diabetes mellitus-continue home insulin regimen. 7. Chronic cough, history of extensive tobacco use-suspect undiagnosed COPD. Patient reports extensive history of smoking as well as work exposure to other irritants. Recommend establishing with pulmonary medicine, Dr. Frankel or Dr. Go for PFTs and further evaluation. General: Alert, Oriented x3, Cooperative HEENT: Atraumatic, PERRLA, EOMI, Normocephalic Neck: Supple, No JVD, Negative Carotid Bruits Lungs: Clear to auscultation, Diminished Cardiovascular: Regular rate, Regular Rhythm, Normal S1, Normal S2, No murmurs Abdomen: Bowel Sounds Present, Soft, Non Tender, Distended Extremities: No clubbing, No cyanosis, Capillary Refill Less than 3 Seconds, no edema Skin: No rashes, No breakdown Musculoskeletal: No Tenderness to Palpation of Joints or Extremities Neurological: Cranial nerves II-XII grossly intact, Neuro grossly intact Psych/Mental Status: Normal Affect, Appropriate Patient seen and examined prior to discharge. Physical assessment as noted above. Patient is stable for discharge with follow up recommendations as noted above. This patient was seen by WALDEMAR Blair under the supervision of Dr. Bond. - Physical Exam Vitals/I&O's: Vital Signs Temp Pulse Resp BP Pulse Ox 98.0 F 91 15 121/81 H 95 10/21/19 06:40 10/21/19 07:00 10/21/19 06:40 10/21/19 06:42 10/21/19 10:52 Oxygen Flow Rate (L/min) [ 0 AMBULATING on Room Air] Oxygen Flow Rate (L/min) [At 0 REST on Room Air] Oxygen Delivery Method Room Air Weight: 205 lb 7.533 oz Body Mass Index (BMI) 30.6 Finger Stick Blood Glucose 105 Intake and Output for Last 24 Hours 10/19/19 10/20/19 10/21/19 23:59 23:59 23:59 Intake Total 130 / 330 417.68 / 417.68 Output Total 850 / 1650 1100 / 1100 Balance -720 / -1320 -682.32 / -682.32 Laboratory Results 10/20/19 13:10: WBC 6.8, RBC 4.69, Hgb 12.2 L, Hct 39.9 L, MCV 85.1, MCH 26.0 L, MCHC 30.6 L, RDW Std Deviation 50.9 H, RDW Coeff of [place] 16.8 H, Plt Count 248, MPV 8.8, Immature Gran % (Auto) 1.500 H, Neut % (Auto) 79.3 H, Lymph % (Auto) 6.6 L, [place] % (Auto) 9.9, Eos % (Auto) 2.1, Baso % (Auto) 0.6, Absolute Neuts (auto) 5.4, Absolute Lymphs (auto) 0.45 L, Nucleated RBC % 0, Platelet Estimate ADEQUATE, RBC Morphology NORM C+C 10/20/19 13:10: D-Dimer Quant (PE/DVT) 0.38 10/20/19 13:10: Sodium 136, Potassium 4.2, Chloride 101, Carbon Dioxide 31.0, Anion Gap 4 L, BUN 39 H, Creatinine 2.28 H, Estim Creat Clear Calc 31.44, Est GFR (MDRD) Af Amer 37 L, Est GFR (MDRD) Non-Af 31 L, BUN/Creatinine Ratio 17.1, Glucose 136 H, Calcium 8.3 L, Troponin I < 0.015 10/20/19 13:10: B-Natriuretic Peptide 359.3 H 10/20/19 16:18: POC Glucose 120 H 10/20/19 16:25: Troponin I < 0.015 10/20/19 19:18: Troponin I < 0.015 10/20/19 22:34: POC Glucose 140 H 10/21/19 05:48: WBC 8.2, RBC 4.67, Hgb 12.1 L, Hct 39.8 L, MCV 85.2, MCH 25.9 L, MCHC 30.4 L, RDW Std Deviation 52.9 H, RDW Coeff of [place] 17.6 H, Plt Count 266, MPV 9.4, Immature Gran % (Auto) 0.700, Neut % (Auto) 77.0 H, Lymph % (Auto) 9.2 L, [place] % (Auto) 10.6 H, Eos % (Auto) 1.9, Baso % (Auto) 0.6, Absolute Neuts (auto) 6.3, Absolute Lymphs (auto) 0.76 L, Nucleated RBC % 0 10/21/19 05:48: Sodium 137, Potassium 3.4 L, Chloride 100, Carbon Dioxide 31.0, Anion Gap 6, BUN 42 H, Creatinine 2.37 H, Estim Creat Clear Calc 30.25, Est GFR (MDRD) Af Amer 35 L, Est GFR (MDRD) Non-Af 29 L, BUN/Creatinine Ratio 17.7, Glucose 77, Calcium 8.1 L 10/21/19 06:47: POC Glucose 79 10/21/19 11:19: POC Glucose 143 H Current Medications Amiodarone HCl (Cordarone) 200 mg PO DAILY@0800 [facility] Last Admin: 10/21/19 08:18 Dose: 200 mg Documented by: Apixaban (Eliquis) 2.5 mg PO BID [facility] Last Admin: 10/21/19 08:19 Dose: 2.5 mg Documented by: Carvedilol (Coreg) 25 mg PO BID [facility] Last Admin: 10/21/19 08:20 Dose: 25 mg Documented by: Clopidogrel Bisulfate (Plavix) 75 mg PO DAILY [facility] Last Admin: 10/21/19 08:20 Dose: 75 mg Documented by: Dextrose (D50w Syringe) 0 gm IV X1 PRN; Protocol PRN Reason: Hypoglycemia Glucagon () 1 mg IM .X1 PRN PRN Reason: Hypoglycemia Hydralazine HCl (Apresoline) 100 mg PO TID [facility] Last Admin: 10/21/19 06:42 Dose: 100 mg Documented by: Sodium Chloride () 250 mls @ 15 mls/hr IV .[id number] PRN PRN Reason: Saline Flush Sodium Chloride () 250 mls @ 15 mls/hr IV .[id number] PRN PRN Reason: Additional IVPB Infusion Insulin Human Lispro (Humalog Kwikpen (Bkc)) 0 unit SC ACHS [facility]; Protocol Last Admin: 10/21/19 11:22 Dose: Not Given Documented by: Insulin Human NPH (Humulin N (Bkc)) 20 units SC QHS [facility] Last Admin: 10/20/19 22:38 Dose: 20 units Documented by: Insulin Human NPH (Humulin N (Bkc)) 22 units SC BREAKFAST [facility] Last Admin: 10/21/19 08:21 Dose: 22 units Documented by: Isosorbide Mononitrate (Imdur) 120 mg PO BID [facility] Last Admin: 10/21/19 08:19 Dose: 120 mg Documented by: Loratadine (Claritin) 10 mg PO DAILY [facility] Last Admin: 10/21/19 08:18 Dose: 10 mg Documented by: Nitroglycerin (Nitrostat) 0.4 mg SUBLINGUAL Q5M PRN PRN Reason: CHEST Ondansetron HCl (Zofran) 4 mg IV Q8H PRN PRN PRN Reason: NAUSEA/VOMITING Pantoprazole Sodium (Protonix) 40 mg PO BID [facility] Last Admin: 10/21/19 08:19 Dose: 40 mg Documented by: Pravastatin Sodium (Pravachol) 40 mg PO QHS [facility] Last Admin: 10/20/19 21:54 Dose: 40 mg Documented by: Ranolazine (Ranexa) 500 mg PO BID [facility] Last Admin: 10/21/19 08:19 Dose: 500 mg Documented by: Sodium Chloride () 10 - 40 ml IV UD PRN PRN Reason: SALINE FLUSH Last Admin: 10/20/19 17:17 Dose: 10 ml Documented by: Discharge Diet: Low fat/ Low Cholesterol, 8 Cup Fluid Restriciton, 2000 mg Sodium Diet Discharge Activity: Return to Normal Activity Call your doctor if you observe: Shortness of breath, Dizziness, Fainting spells, Chest pain Home Medications: Medications to take at Discharge Amiodarone HCl [Cordarone] 200 mg PO DAILY 03/13/19 Loratadine 10 mg PO DAILY 03/13/19 Pantoprazole Sodium [Protonix] 40 mg PO BID 03/13/19 Ranolazine [Ranolazine ER] 500 mg PO BID 03/13/19 Insulin NPH Human Isophane [Novolin N] 22 unit SQ BREAKFAST 04/20/19 Furosemide [Lasix] 80 mg PO BID 06/14/19 Insulin NPH Human Isophane [Humulin N] 20 unit SQ QHS 06/14/19 clopidogrel 75 mg tablet 75 mg PO DAILY #30 tab 06/23/19 hydralazine 100 mg tablet 100 mg PO TID #90 tab 06/23/19 isosorbide mononitrate 120 mg tablet,extended release 24 hr 120 mg PO BID #60 tab 06/23/19 losartan 100 mg tablet 100 mg PO DAILY #90 tab 07/21/19 apixaban 2.5 mg tablet 2.5 mg PO BID #60 tab 08/13/19 Nitroglycerin (INPATIENT USE) [Nitrostat] 0.4 mg SUBLINGUAL Q5M PRN #30 tab 08/15/19 carvedilol 25 mg tablet 25 mg PO BID #180 tab 09/14/19 pravastatin 40 mg tablet 40 mg PO QHS #90 tab 09/15/19 Aspirin [Aspirin, Baby] 81 mg PO DAILY@0800 10/20/19 Spironolactone 50 mg PO DAILY #30 tab 10/21/19 Following Prescrptions Were Given to Patient: Spironolactone 50 mg PO DAILY #30 tab Transmission Status: Received by [facility] Primary Care Physician: Jennifer Spicer DO [Primary Care Provider] - Please follow up with your Primary Care Physician in: 1 Week Please Follow Up With: Yuliet Nayak PA When: 3-5 days Disposition: Home Minutes spent on discharge:: 35 Patient Condition:: Stable Medical Necessity - Tobacco Use Smoking Status: Former smoker Meaningful Use Info Meaningful Use Diagnoses (Choose all that apply): CHF - CHF AN/ARB ordered at discharge?: Yes Documented LVEF (%): 35
--- NOTE | 2019-10-23 14:04 | CASEMGMT ---
DEVYN CM DC PHONE CALL DC DATE: 10/21/2019 DC DISPOSITION: Home DC DIAGNOSIS: CHF LACE/STRATA: 16/07 F/U APPTS MADE PRIOR TO DC: no, weekend dc. Attempted call to phone. No answer and no machine with name identifier. Nii SUTTONN RN AC
== END 2019-10-21 15:27 | disposition home or self-care (01) | DRG 291 ==
LOC: ED 13:44 → PCU 14:35
PROVIDERS: Admitting Provider Student in an Organized Health Care Education/Training Program; Emergency Provider Emergency Medicine; PCP Family Medicine; Visit Provider Internal Medicine
DX: I13.0 Hypertensive heart and chronic kidney disease with heart failure and stage 1 through stage 4 chronic kidney disease, or unspecified chronic kidney disease (principal); I50.23 Acute on chronic systolic (congestive) heart failure; I48.92 Unspecified atrial flutter; I47.2 Ventricular tachycardia; E11.22 Type 2 diabetes mellitus with diabetic chronic kidney disease; N18.3 Chronic kidney disease, stage 3 (moderate); I48.0 Paroxysmal atrial fibrillation; I25.10 Atherosclerotic heart disease of native coronary artery without angina pectoris; J44.9 Chronic obstructive pulmonary disease, unspecified; I27.21 Secondary pulmonary arterial hypertension; E78.5 Hyperlipidemia, unspecified; I25.2 Old myocardial infarction; I25.5 Ischemic cardiomyopathy; Z95.5 Presence of coronary angioplasty implant and graft; Z95.810 Presence of automatic (implantable) cardiac defibrillator; Z79.4 Long term (current) use of insulin; Z79.82 Long term (current) use of aspirin; Z79.02 Long term (current) use of antithrombotics/antiplatelets; Z79.01 Long term (current) use of 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s; Z79.899 Other long term (current) drug therapy; Z87.891 Personal history of nicotine dependence
CPT/HCPCS: 36415; 71045; 80048; 82962; 83880; 84484; 85025; 85379; 93005; 93306; 94640; 97162; 97165; 99285; A4216; J1940

== ENCOUNTER → 2019-11-08 09:47 | Outpatient (CLI) | payer MEDICARE, SELFPAY ==
[2016-06-12 14:02] VITALS: BMI 29.7
[2019-10-20 14:59] VITALS: BMI 30.6
[2019-11-08 12:16] LABS: BNP,B-Type NATRIURETIC PEPTIDE 315.6 pg/mL (0-100)
[2019-11-08 12:17] LABS: Anion Gap 6 (5-15); BUN 34 mg/dL (7-18); Calcium,Total 8.6 mg/dL (8.5-10.1); Chloride 101 mmol/L (98-107); Creatinine, Serum 2.27 mg/dL (0.70-1.30); EST Glomerular Filtration Rate 31 mL/min (>60); Est Glom Filt Rate - Afr Amer 37 mL/min (>60); Glucose 147 mg/dL (74-106); Potassium 4.5 mmol/L (3.5-5.1); Sodium Level 136 mmol/L (136-145)
== END ==
LOC: BFHLAB 09:47
PROVIDERS: PCP Family Medicine; Visit Provider Family Medicine
DX: I50.9 Heart failure, unspecified (principal); N17.9 Acute kidney failure, unspecified; N28.9 Disorder of kidney and ureter, unspecified
CPT/HCPCS: 36415; 80048; 83880

== ENCOUNTER 2019-11-12 22:42 | Inpatient (IN) | payer MEDICARE, SELFPAY ==
[2016-06-12 14:02] VITALS: BMI 29.7
[2019-10-20 14:59] VITALS: BMI 30.6
[2019-11-12 22:43] VITALS: BP 179/107; PULSE 110; RESP 16; TEMP 36.4; O2SAT 97; BMI 30.9
[2019-11-12 22:52] VITALS: O2SAT 93
--- NOTE | 2019-11-12 22:53 | EKG12_ITS ---
Test Reason : CP ADMISSION Blood Pressure : / mmHG Vent. Rate : 094 BPM Atrial Rate : 214 BPM P-R Int : 000 ms QRS Dur : 178 ms QT Int : 464 ms P-R-T Axes : 000 -79 028 degrees QTc Int : 580 ms Atrial flutter with variable A-V block Left axis deviation Right bundle branch block Inferior infarct (cited on or before 07-JAN-2018) Anterolateral infarct (cited on or before 07-JAN-2018) Abnormal ECG Confirmed by BELKIS METZ, JUANJOSE ([id number]), assignment desk editor LISBET HAWK ([id number]) on 11/14/2019 10:55:17 AM Referred By: Anjel Arvizu Confirmed By:JUANJOSE TAMAYO MD
--- NOTE | 2019-11-12 22:53 | ED.RN ---
RN CALLED FOR EKG, PULLED OLD EKGS FOR
--- NOTE | 2019-11-12 22:57 | ED.VIS.GEN ---
History of Present Illness Chief Complaint: Shortness of Breath Informant: Patient Onset: Today Context: Gradual Onset Timing: Continuous Current Severity: Moderate Maximum Severity: Moderate Narrative: Patient is a 69-year-old male with medical history significant for atrial fibrillation, coronary vascular disease status post stents, systolic congestive heart failure, and chronic kidney disease that presents to the emergency department with increasing shortness of breath. Patient states that over the past 8 to 12 hours, he has had increasing dyspnea. He states he tries to walk a distance, he cannot catch his breath. He does admit to some increased lower extremity swelling. He states he has been compliant with all of his medications. He has had some scant chest pain. He denies any fevers or chills. He denies any abdominal pain or back pain. Prior similar symptoms: Yes Recent Illness/Hospitalization: Yes Past Medical History - Allergies and Home Meds Allergies/Adverse Reactions: Allergies diltiazem Allergy (Verified 11/12/19 22:52) LOWER LEG SWELLING tamsulosin [From Flomax] Allergy (Verified 11/12/19 22:52) Shortness of breath/muscle weakness atorvastatin calcium [From Lipitor] Adverse Reaction (Verified 11/12/19 22:52) MUSCLE WEAKNESS Primary Care Physician: Jennifer Spicer DO [Primary Care Provider] - Prior records reviewed: Yes Past Medical History: - - Coronary vascular disease, atrial fibrillation, chronic kidney disease Surgical History: herniorrhaphy, total knee arthroplasty - ACLS repair, - - s/p stents, AICD s/p cardioversion, s/p wrist and elbow surgery Smoking Status: Former smoker - Family History Maternal Family History: Family History (Last Reviewed 09/14/19 @ 11:04 by Lisette Elizondo) Brother Sudden cardiac Family History: Reports: Hypertension Paternal Family History: Family History (Last Reviewed 09/14/19 @ 11:04 by Lisette Elizondo) Brother Sudden cardiac Family History: Reports: Unknown Sibling Family History: Family History (Last Reviewed 09/14/19 @ 11:04 by Lisette Elizondo) Brother Sudden cardiac Family History: Reports: Heart Disease Review of Systems General: Denies: Chills, Fever, Sweats Eyes: Denies: Visual changes - bilaterally, Diplopia ENT: Denies: Rhinorrhea, Sore throat Cardiovascular: Denies: Chest pain, Palpitations Respiratory: Reports: Cough, Dyspnea on exertion, Paroxysmal nocturnal dyspnea. Denies: Dyspnea Gastrointestinal: Denies: Abdominal pain, Nausea, Vomiting, Diarrhea, Melena, Hematochezia Genitourinary: Denies: Dysuria, Hematuria, Frequency Musculoskeletal: Denies: Back pain, Extremity Pain Skin: Denies: Rash, Wounds Neurological: Denies: Headache, Weakness, Numbness Physical Exam Vital Signs/Narrative: Vital Signs Temp Pulse Resp BP Pulse Ox 11/12/19 22:43 97.5 F L 110 H 16 179/107 H 97 Inital Vital Signs reviewed: Yes General: Well nourished, Well developed, No Acute Distress Head: Normocephalic, Atraumatic Eyes: Perrl, EOMI ENT: Moist mucous membranes, No rhinorrhea Neck: Supple, Nontender Cardiovascular: No murmurs, Irregular, Tachycardia Respiratory: No distress, Chest nontender, Decreased Air Movement Abdomen: Soft, Nontender, Nondistended, Normal bowel sounds Back: Nontender, Normal Inspection Extremities: Nontender, Edema Skin: Normal color, No rash Neurological: Alert, Oriented x3, Cranial nerves II-XII grossly intact, Normal Strength, Normal Sensation Psychological: Normal affect, Normal Mood Diagnostic/Tx/Re-eval Clinical Impression(s) from Imaging Studies Chest X-Ray 11/12/19 23:09 IMPRESSION: No acute pulmonary findings. Electronically Signed: Trent Landeros MD at 23:23 EDT Tel , Service support , Abnormal Lab Results 11/12/19 11/12/19 11/12/19 23:00 23:00 23:00 WBC 7.6 RBC 4.96 Hgb 12.6 L Hct 40.8 MCV 82.3 MCH 25.4 L MCHC 30.9 L RDW Std Deviation 50.4 H RDW Coeff of [place] 17.7 H Plt Count 281 MPV 9.6 Immature Gran % (Auto) 2.100 H Neut % (Auto) 74.5 H Lymph % (Auto) 8.3 L [place] % (Auto) 12.4 H Eos % (Auto) 2.0 Baso % (Auto) 0.7 Absolute Neuts (auto) 5.7 Absolute Lymphs (auto) 0.63 L Nucleated RBC % 0 Sodium 130 L Potassium 4.2 Chloride 95 L Carbon Dioxide 29.0 Anion Gap 6 BUN 44 H Creatinine 2.69 H Estim Creat Clear Calc 26.65 Est GFR (MDRD) Af Amer 31 L Est GFR (MDRD) Non-Af 25 L BUN/Creatinine Ratio 16.4 Glucose 201 H Calcium 8.2 L Magnesium 1.8 Troponin I < 0.015 B-Natriuretic Peptide 241.6 H - Rhythm Strip Rhythm Strip: Sinus Tach Rate: 103 Ectopy: PVC(s) - EKG Initial EKG Interpretation: Sinus Tachycardia, Non-Specific ST Changes Prior: Unchanged - Medical Decision Making Patient presents with exertional dyspnea and trace pedal edema. He has been compliant with all of his medications. EKG was obtained which demonstrates sinus tachycardia. There is underlying right bundle branch block which is unchanged. Patient was kept on a monitor. He has not required supplemental oxygen. Chest x-ray shows no evidence of decompensated CHF. There is cardiomegaly which is unchanged. Cardiac enzymes are unremarkable. Patient's creatinine is close to his baseline. Electrolytes were otherwise unremarkable. His BNP is mildly elevated, but in light of his chronic renal disease, I do feel that this is likely his baseline. My concern would be a cardiac equivalent as the patient has been having exertional dyspnea and intermittent chest pain. He was given a nebulized breathing treatment with some improvement of his aeration. However, given his significant history of cardiac disease and intermittent chest pain, I do feel that it would be prudent to observe the patient on a telemetry bed overnight. Patient was discussed with the hospitalist. Impression 1. Exertional dyspnea 2. Chest pain 3. History of STEMI with stents ED Disposition - Plan for ED Patient: Referrals: Jennifer Spicer DO [Primary Care Provider] -
[2019-11-12] MEDS: Aspirin 81 MG TAB.CHEW 324 MG PO (23:03)
--- NOTE | 2019-11-12 23:09 | RAD_ITS ---
STUDY: X-RAY CHEST REASON FOR EXAM: Male, 69 years old. SOB AND DIZZINESS X 1 DAY TECHNIQUE: Single frontal view of the chest. COMPARISON: 10/20/2019 FINDINGS: Single chamber defibrillator on the left. The lungs are clear and expanded. There is no demonstrated pleural abnormality. Normal size heart. Normal mediastinum and loco. Normal visualized pulmonary arteries. Normal visualized aortic arch and descending thoracic aorta. Normal visualized thoracic spine. Normal visualized ribs, clavicles, and shoulders. There is no demonstrated abnormality of the visualized soft tissue structures of the upper abdomen. RAD/Chest 1 View (Portable) IMPRESSION: No acute pulmonary findings. Electronically Signed: Trent Landeros MD at 23:23 EDT Tel , Service support ,
[2019-11-12 23:28] LABS: Absolute Lymphocyte Count 0.63 X10^3/uL (0.83-4.51); Absolute Neutrophil Count 5.7 X10^3/uL (2.0-7.7); Basophil# 0.05 X10^3/uL; Basophil% 0.7 % (0-1); Eosinophil# 0.15 X10^3/uL; Hematocrit 40.8 % (40-54); Hemoglobin 12.6 g/dL (13.0-16.5); Lymphocyte # 0.63 X10^3/ul (4.0); Lymphocyte % 8.3 % (19-41); Mean Corp Hgb Conc 30.9 g/dL (32-36); Mean Corpuscular Hgb 25.4 pg (27.0-32.0); Mean Corpuscular Volume 82.3 fL (80-94); Mean Platelet Vol. 9.6 fl (6.2-12.0); Monocyte# 0.94 X10^3/uL; Monocyte% 12.4 % (0-10); NRBC Flagged by Analyzer 0 % (0-5); Neutrophil # 5.68 X10^3/uL (2.7-7.7); Neutrophil % 74.5 % (47-70); Platelet Count 281 K/mm3 (150-450); RBC Distribution Width CV 17.7 % (11.6-14.6); RBC Distribution Width SD 50.4 fl (35.1-43.9); Red Blood Count 4.96 M/mm3 (4.6-6.2); White Blood Count 7.6 K/mm3 (4.4-11.0)
[2019-11-12 23:34] LABS: Anion Gap 6 (5-15); BUN 44 mg/dL (7-18); BUN/Creat Ratio 16.4 RATIO (10-20); Calcium,Total 8.2 mg/dL (8.5-10.1); Chloride 95 mmol/L (98-107); Creatinine, Serum 2.69 mg/dL (0.70-1.30); EST Glomerular Filtration Rate 25 mL/min (>60); Est Glom Filt Rate - Afr Amer 31 mL/min (>60); Estimated Creatinine Clearance 26.65 ml/min; Glucose 201 mg/dL (74-106); Magnesium 1.8 mg/dL (1.6-2.6); Potassium 4.2 mmol/L (3.5-5.1); Sodium Level 130 mmol/L (136-145)
[2019-11-12 23:44] LABS: BNP,B-Type NATRIURETIC PEPTIDE 241.6 pg/mL (0-100)
[2019-11-12 23:49] VITALS: PULSE 110; RESP 18
[2019-11-12] MEDS: Ipratropium/Albuterol Sulfate 3 ML AMPUL.NEB INHALATION (23:49)
[2019-11-13] VITALS (18 sets, daily range): BP systolic 92–143; BP diastolic 61–85; PULSE 92–111; RESP 15–18; TEMP 36.6–36.9; O2SAT 92–98; BMI 30.4; BMI 30.9
--- NOTE | 2019-11-13 | PCM.HP.STD ---
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 (10) Nonsustained ventricular tachycardia Status: Chronic (11) Chronic systolic CHF (congestive heart failure) Status: Chronic (12) Presence of implantable cardioverter-defibrillator (ICD) Status: Chronic (13) Left atrial thrombus Status: Chronic (14) Secondary pulmonary arterial hypertension Status: Chronic (15) History of coronary artery stent placement Status: Chronic Comment: SARA-RCA 06/15/2011, SARA-OM1 06/30/2011, SARA-LAD 08/20/2014, SARA-Prox- RCA 06/08/2016 (16) Atherosclerosis of coronary artery of [place] heart without angina pectoris Status: Chronic Qualifiers: Comment: SARA-RCA 06/15/2011, SARA-OM1 06/30/2011, SARA-LAD 08/20/2014, SARA-Prox- RCA 06/08/2016 (17) Paroxysmal atrial fibrillation Status: Chronic (18) Hyperlipidemia Status: Chronic Qualifiers: (19) Type II diabetes mellitus Status: Chronic (20) STEMI (ST elevation myocardial infarction) Status: Chronic (21) Cardiomyopathy, ischemic Status: Chronic History of Present Illness Date of Admission: 11/13/19 Chief Complaint: SOB The patient is a 69 year old M significant for type 2 diabetes; paroxysmal A. fib; congestive heart failure; and left atrial thrombus who presents to the emergency department with shortness of breath that started the same day of presentation. His shortness of breath is with mild activities. He denies any weight changes. However he has had swelling in his bilateral ankles that began today(day of presentation). Also patient reported that he feels wobbly on his feet and he nearly fell. Further, he has of left sided dull nonradiating chest pain. He rates his chest pain as 4 out of 10. Reportedly patient went to his PCPs office 3 days before presentation and reportedly he was told that by lab work he has an exacerbation of CHF. After his PCPs visit his family began to manage him for acute CHF by instituting fluid restriction.. Of note patient was admitted on 10/20/2019 and discharged on 10/21/2019 for acute on chronic heart failure with reduced ejection fraction. Also patient was admitted on 10/13/2019 and discharged on same day for YOMI on CKD stage III secondary to dehydration secondary to decreased p.o. intake; and altered mental status secondary to hypoglycemia. Past Medical History Past Medical History (Chronic Problems): Chronic Problems (Last Reviewed 11/13/19 @ 01:[address] Anjel Arvizu MD) Atrial fibrillation and flutter (Chronic) CAD in [place] artery (Chronic) Renal insufficiency (Chronic) Stage 3 chronic kidney disease (Chronic) Essential hypertension (Chronic) shelter current use of 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) Nonsustained ventricular tachycardia (Chronic) Chronic systolic CHF (congestive heart failure) (Chronic) Presence of implantable cardioverter-defibrillator (ICD) (Chronic) 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) History of coronary artery stent placement (Chronic 06/08/16) SARA-RCA 06/15/2011, SARA-OM1 06/30/2011, SARA-LAD 08/20/2014, SARA-Prox- RCA 06/08/2016 Atherosclerosis of coronary artery of [place] heart without angina pectoris (Chronic) SARA-RCA 06/15/2011, SARA-OM1 06/30/2011, SARA-LAD 08/20/2014, SARA-Prox- RCA 06/08/2016 Paroxysmal atrial fibrillation (Chronic) Hyperlipidemia (Chronic) Type II diabetes mellitus (Chronic) STEMI (ST elevation myocardial infarction) (Chronic) Cardiomyopathy, ischemic (Chronic) Medical History: Medical History (Last Reviewed 11/13/19 @ 01:[address] 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) Z79.01 Nonsustained ventricular tachycardia (Chronic) I47.2 Chronic systolic CHF (congestive heart failure) (Chronic) I50.22 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) I27.21 Atherosclerosis of coronary artery of [place] heart without angina pectoris (Chronic) I25.10 SARA-RCA 06/15/2011, SARA-OM1 06/30/2011, SARA-LAD 08/20/2014, SARA-Prox- RCA 06/08/2016 Paroxysmal atrial fibrillation (Chronic) I48.0 Hyperlipidemia (Chronic) E78.5 Type II diabetes mellitus (Chronic) E11.9 STEMI (ST elevation myocardial infarction) (Chronic) Cardiomyopathy, ischemic (Chronic) I25.5 DDD (degenerative disc disease) Obesity (BMI 30.0-34.9) E66.9 Old myocardial infarction I25.2 inferior lateral and Anterior Apical Cardiogenic shock Onset Date: 06/08/16 R57.0 Hypertensive emergency I16.1 Esophagitis determined by endoscopy (Inactive) Onset Date: 05/06/17 K20.9 Allergies diltiazem Allergy (Verified 11/12/19 22:52) LOWER LEG SWELLING tamsulosin [From Flomax] Allergy (Verified 11/12/19 22:52) Shortness of breath/muscle weakness atorvastatin calcium [From Lipitor] Adverse Reaction (Verified 11/12/19 22:52) MUSCLE WEAKNESS Home Medications: Ambulatory Orders Medication Instructions Recorded Amiodarone HCl [Cordarone] 200 mg PO DAILY 03/13/19 Loratadine 10 mg PO DAILY 03/13/19 Pantoprazole Sodium [Protonix] 40 mg PO BID 03/13/19 Ranolazine [Ranolazine ER] 500 mg PO BID 03/13/19 Insulin NPH Human Isophane 22 unit SQ BREAKFAST 04/20/19 [Novolin N] Furosemide [Lasix] 80 mg PO BID 06/14/19 Insulin NPH Human Isophane 20 unit SQ QHS 06/14/19 [Humulin N] clopidogrel 75 mg tablet 75 mg PO DAILY #30 tab 06/23/19 hydralazine 100 mg tablet 100 mg PO TID #90 tab 06/23/19 isosorbide mononitrate 120 mg 120 mg PO BID #60 tab 06/23/19 tablet,extended release 24 hr losartan 100 mg tablet 100 mg PO DAILY #90 tab 07/21/19 apixaban 2.5 mg tablet 2.5 mg PO BID #60 tab 08/13/19 Nitroglycerin (INPATIENT USE) 0.4 mg SUBLINGUAL Q5M PRN #30 tab 08/15/19 [Nitrostat] carvedilol 25 mg tablet 25 mg PO BID #180 tab 09/14/19 pravastatin 40 mg tablet 40 mg PO QHS #90 tab 09/15/19 Aspirin [Aspirin, Baby] 81 mg PO DAILY@0800 10/20/19 Spironolactone 50 mg PO DAILY #30 tab 10/21/19 Metolazone 2.5 mg PO QWEEK 11/12/19 Surgical History: Surgical History (Last Reviewed 11/13/19 @ 01:[address] Anjel Arvizu MD) Presence of implantable cardioverter-defibrillator (ICD) (Chronic) Z95.810 History of coronary artery stent placement (Chronic) Onset Date: 06/08/16 Z95.5 SARA-RCA 06/15/2011, SARA-OM1 06/30/2011, SARA-LAD 08/20/2014, SARA-Prox- RCA 06/08/2016 History of cardioversion Onset Date: 04/10/16 Z98.890 01/14/15 (unsuccessful), 04/10/2016 H/O elbow surgery Z98.890 H/O left wrist surgery Z98.890 S/P right inguinal hernia repair Z98.890, Z87.19 Status post knee surgery Z98.890 Surgical History: herniorrhaphy, total knee arthroplasty - ACLS repair, - - s/p stents, AICD s/p cardioversion, s/p wrist and elbow surgery Psychiatric History: No pertinent psych hx Smoking Status: Former smoker - *Family History Maternal Family History: Family History (Last Reviewed 11/13/19 @ 01:[address] Anjel Arvizu MD) Brother Sudden cardiac History Items: Hypertension Paternal Family History: Family History (Last Reviewed 11/13/19 @ 01:[address] Anjel Arvizu MD) Brother Sudden cardiac Sibling Family History: Family History (Last Reviewed 11/13/19 @ 01:[address] Anjel Arvizu MD) Brother Sudden cardiac History Items: Heart Disease Review of Systems Constitutional: Denies: Chills, Fever, Weight Change HEENT: Denies: Head Aches, Sinus Congestion, Sinus Drainage Cardiovascular: Reports: Chest Pain, Edema, Orthopnea, Paroxysmal Noc. Dyspnea. Denies: Palpitations Respiratory: Reports: Shortness of Breath. Denies: Cough, Sputum production Gastrointestinal: Denies: Abdominal Pain, Nausea, Vomiting Genitourinary: Denies: Dysuria Musculoskeletal: Denies: Joint Pain, Joint Tenderness Skin: Denies: Rash, Wounds Neurological: Denies: Numbness, Tingling, Focal weakness Psychiatric: Denies: Anxiety, Depression, Homicidal Ideations, Suicidal Ideations Hematologic/ Lymphatic: Denies: Easy Bruising, Easy Bleeding VTE Information - Inpt Only VTE Present on Admission: No VTE Mechan Device Prophylaxis: None VTE Pharm Prophylaxis ordered?: No Reason prophylaxis not ordered:: Treatment Not Indicated - Eliquis continued for history of A. fib and left atrial thrombus. Patient Problems: Active and Suspected Problems (Last Reviewed 11/13/19 @ 01:[address] Anjel Arvizu MD) Acute kidney injury superimposed on chronic kidney disease (Acute) - Physical Exam Vitals/I&O's: Vital Signs Temp Pulse Resp BP Pulse Ox 97.5 F L 100 21 H 179/107 H 97 11/12/19 22:43 11/12/19 23:49 11/12/19 23:49 11/12/19 22:43 11/12/19 22:43 Oxygen Delivery Method Room Air Weight: 94.9 kg Body Mass Index (BMI) 30.9 Finger Stick Blood Glucose 105 General: Alert, Oriented x3, Cooperative HEENT: Atraumatic, PERRLA, EOMI, Normocephalic Neck: Supple, No JVD, Negative Carotid Bruits Lungs: Clear to auscultation, Normal air movement, No rhonchi, No wheeze, No rales Cardiovascular: Regular Rhythm, Normal S1, Normal S2, No murmurs, Tachycardic Abdomen: Bowel Sounds Present, Soft, Non Tender Extremities: Capillary Refill Less than 3 Seconds, Edema - Bilateral ankles Skin: No rashes, No breakdown Musculoskeletal: No Tenderness to Palpation of Joints or Extremities Neurological: Cranial nerves II-XII grossly intact Psych/Mental Status: Normal Affect, Appropriate Laboratory Results 11/12/19 23:00: WBC 7.6, RBC 4.96, Hgb 12.6 L, Hct 40.8, MCV 82.3, MCH 25.4 L, MCHC 30.9 L, RDW Std Deviation 50.4 H, RDW Coeff of [place] 17.7 H, Plt Count 281, MPV 9.6, Immature Gran % (Auto) 2.100 H, Neut % (Auto) 74.5 H, Lymph % (Auto) 8.3 L, [place] % (Auto) 12.4 H, Eos % (Auto) 2.0, Baso % (Auto) 0.7, Absolute Neuts (auto) 5.7, Absolute Lymphs (auto) 0.63 L, Nucleated RBC % 0 11/12/19 23:00: Sodium 130 L, Potassium 4.2, Chloride 95 L, Carbon Dioxide 29.0, Anion Gap 6, BUN 44 H, Creatinine 2.69 H, Estim Creat Clear Calc 26.65, Est GFR (MDRD) Af Amer 31 L, Est GFR (MDRD) Non-Af 25 L, BUN/Creatinine Ratio 16.4, Glucose 201 H, Calcium 8.2 L, Magnesium 1.8, Troponin I < 0.015 11/12/19 23:00: B-Natriuretic Peptide 241.6 H Assessment/Plan All Active Problems (Last Reviewed 11/13/19 @ 01:[address] Anjel Arvizu MD) Chest pain (Acute) Acute kidney injury superimposed on chronic kidney disease (Acute) Systolic CHF, acute on chronic (Acute) The patient is a 69 year old M significant for type 2 diabetes; paroxysmal A. fib; congestive heart failure; and left atrial thrombus who presents emergency department with shortness of breath; bilateral ankle swelling; wobbly feet; chest pain and elevated creatinine. Acute exacerbation of systolic heart failure Echocardiogram on 10/21/2019 showed left ventricular ejection fraction estimated to be 35%. Left atrium was mildly enlarged. Mild mitral valve insufficiency. Right ventricle systolic pressure was 52 mmHg. BNP is mildly elevated at 241.6. Review of record showed that 4 days ago his BNP was 315.6. Actual chest x-ray image was reviewed: Cardiomegaly with no acute cardiopulmonary process. Likely patient has some mild acute on chronic CHF also beginning of his CHF We will give a one-time dose of Lasix 40 mg IV. Thereafter continue Lasix 80 mg p.o. twice daily, home dose Aldactone continued Metolazone once a week continued Hydralazine and isosorbide mononitrate continued. Losartan continued Carvedilol continued ICD in place. Patient actually has a scheduled appointment with Dr. Butler on 11/13/2019.Nursing communication to help patient reschedule appointment. 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 Creatinine is 2.69 Baseline creatinine around 1.86 BUN is 44. BUN over creatinine is 16.4. Likely intrinsic renal and prerenal from acute CHF. Management of CHF as above Trend BMP. Disequilibrium PT and OT to work with patient Will get vitamin D and vitamin B12 level. Chest pain Received aspirin 324 mg p.o. x 1 at the emergency department. Aspirin and Plavix continued Pravastatin continued Ranolazine continued Check troponin unremarkable. EKG with no ST or T wave abnormalities. Showed right bundle branch block.. Trend troponin. Stress test on 08/15/2019 was reviewed. Unremarkable exams. Hypertension On presentation blood pressure was not within goal Carvedilol, Isosorbide mononitrate, hydralazine and losartan continued Trend blood pressures and adjust blood pressure medications as necessary. Diabetes mellitus Patient with hyperglycemia on presentation Home basal insulin continue. Accu-Chek q. ACH is a correction scale insulin ordered. Atrial fibrillation Amiodarone continued Apixaban continued Carvedilol continued. Hyponatremia Likely from hypervolemia Treat her CHF as above Trend BMP. GERD Protonix continued DVT prophylaxis Home apixaban for A. fib and left atrial thrombus continued. Inpatient E&M: 36441 Init Hosp L3
--- NOTE | 2019-11-13 00:51 | EKG12_ITS ---
Test Reason : CP Blood Pressure : / mmHG Vent. Rate : 111 BPM Atrial Rate : 113 BPM P-R Int : 000 ms QRS Dur : 174 ms QT Int : 454 ms P-R-T Axes : 000 -81 051 degrees QTc Int : 617 ms Atrial fibrillation Left axis deviation Right bundle branch block Inferior infarct , age undetermined Anterolateral infarct , age undetermined Abnormal ECG Confirmed by BELKIS METZ, JUANJOSE ([id number]), index editor LISBET HAWK ([id number]) on 11/13/2019 9:44:36 AM Referred By: Anjel Arvizu Confirmed By:JUANJOSE TAMAYO MD
[2019-11-13] MEDS: Furosemide 40 MG/4 ML Vial IV ×3 (01:38→22:28)
[2019-11-13 05:48] LABS: Anion Gap 9 (5-15); BUN 45 mg/dL (7-18); BUN/Creat Ratio 17.9 RATIO (10-20); Chloride 96 mmol/L (98-107); Creatinine, Serum 2.52 mg/dL (0.70-1.30); EST Glomerular Filtration Rate 27 mL/min (>60); Est Glom Filt Rate - Afr Amer 33 mL/min (>60); Estimated Creatinine Clearance 28.45 ml/min; Glucose 104 mg/dL (74-106); Potassium 3.9 mmol/L (3.5-5.1); Sodium Level 134 mmol/L (136-145)
[2019-11-13] MEDS: hydrALAZINE 50 MG Tablet 100 MG PO ×3 (06:38→22:24)
[2019-11-13] MEDS: Amiodarone 200 MG Tablet PO (07:44)
[2019-11-13] MEDS: Aspirin 81 MG TAB.CHEW PO (07:45)
[2019-11-13] MEDS: Spironolactone 50 MG Tablet PO (07:46)
[2019-11-13] MEDS: Carvedilol 25 MG Tablet PO ×2 (07:46→16:54)
[2019-11-13] MEDS: Insulin NPH Human 100 UNITS/ML PEN 22 UNITS SC (07:47)
[2019-11-13 07:55] LABS: Bedside Glucose 118 mg/dL (70-110)
[2019-11-13] MEDS: APIXABAN 2.5 MG TABLET PO ×2 (09:11→22:24)
[2019-11-13] MEDS: Ranolazine 500 MG Tablet PO ×2 (09:11→22:33)
[2019-11-13] MEDS: Pantoprazole Sodium 40 MG Tablet PO ×2 (09:11→22:33)
[2019-11-13] MEDS: Furosemide 80 MG Tablet PO (09:11)
[2019-11-13] MEDS: Clopidogrel Bisulfate 75 MG Tablet PO (09:11)
[2019-11-13] MEDS: Loratadine 10 MG Tablet PO (09:11)
[2019-11-13 10:32] LABS: Vitamin B12 294 pg/mL (211-911); Vitamin D,25 Hydroxy 20.2 ng/mL
--- NOTE | 2019-11-13 11:01 | CASEMGMT ---
Readmission chart review: Pt initially admitted 10/13/2019 for YOMI/debility after getting up in am, taking insulin and then falling back to sleep after not eating. Pt provided with script for [facility] but when he returned on 10/19-10/21/2019 for YOMI/debility/CHF exac, he had not set up appts yet at this time and stated he was 'still deciding.' Pt lives with daughter/son-in-law and states his daughter assists with meals/meds/transportation. Pt has appt set up with Dr. Spicer for 11/01/2019 and plans to keep. Pt declined [facility] referral at that time. Pt returned 11/12/2019 for SOB/bilat ankle edema and admitted for Acute on chronic CHF. Pt is on room air at this time. CM to follow for any further discharge planning/needs. Willian SHEPARD CM
[2019-11-13 12:00] LABS: Bedside Glucose 191 mg/dL (70-110)
[2019-11-13] MEDS: Insulin Lispro 100 UNIT/ML INSULN.PEN SC ×3 (12:01→22:27)
--- NOTE | 2019-11-13 12:09 | PCM.PN.HOSP ---
<Hang Gamble - Last Filed: 11/13/19 12:09> Patient Problems: Active and Suspected Problems (Last Reviewed 11/13/19 @ 10:33 by Lisette Elizondo) Acute kidney injury superimposed on chronic kidney disease (Acute) Reason for Visit: CHF exacerbation Subjective: Minimal edema at the ankle. No CP/pressure/tightness. Some ongoing SOB at rest and with exertion, improved from presentation tho. No fever/chills. Vitals/I&O's: Vital Signs Temp Pulse Resp BP Pulse Ox 98.1 F 108 H 15 92/61 94 11/13/19 09:00 11/13/19 09:00 11/13/19 09:00 11/13/19 09:00 11/13/19 09:00 Oxygen Delivery Method Room Air Weight: 209 lb 3.499 oz Body Mass Index (BMI) 30.9 Finger Stick Blood Glucose 105 Intake and Output for Last 24 Hours 11/11/19 11/12/19 11/13/19 23:59 23:59 23:59 Intake Total 1040 / 1040 Output Total 2550 / 2550 Balance -1510 / -1510 General: Alert, Oriented x3, Cooperative HEENT: Atraumatic, PERRLA, EOMI, Normocephalic Neck: Supple, No JVD, Negative Carotid Bruits Lungs: Diminished, Rales - faint, basilar Cardiovascular: Regular rate, No murmurs Abdomen: Bowel Sounds Present, Soft, Non Tender, Obese Extremities: Capillary Refill Less than 3 Seconds, Edema - trace to 1+ pitting edema at the ankles Skin: No rashes, No breakdown Musculoskeletal: No Tenderness to Palpation of Joints or Extremities Neurological: Cranial nerves II-XII grossly intact Psych/Mental Status: Normal Affect, Appropriate, Alert and oriented to time, place, person, mood and affect Laboratory Results 11/12/19 23:00: WBC 7.6, RBC 4.96, Hgb 12.6 L, Hct 40.8, MCV 82.3, MCH 25.4 L, MCHC 30.9 L, RDW Std Deviation 50.4 H, RDW Coeff of [place] 17.7 H, Plt Count 281, MPV 9.6, Immature Gran % (Auto) 2.100 H, Neut % (Auto) 74.5 H, Lymph % (Auto) 8.3 L, [place] % (Auto) 12.4 H, Eos % (Auto) 2.0, Baso % (Auto) 0.7, Absolute Neuts (auto) 5.7, Absolute Lymphs (auto) 0.63 L, Nucleated RBC % 0 11/12/19 23:00: Sodium 130 L, Potassium 4.2, Chloride 95 L, Carbon Dioxide 29.0, Anion Gap 6, BUN 44 H, Creatinine 2.69 H, Estim Creat Clear Calc 26.65, Est GFR (MDRD) Af Amer 31 L, Est GFR (MDRD) Non-Af 25 L, BUN/Creatinine Ratio 16.4, Glucose 201 H, Calcium 8.2 L, Magnesium 1.8, Troponin I < 0.015 11/12/19 23:00: B-Natriuretic Peptide 241.6 H 11/13/19 02:08: Troponin I < 0.015 11/13/19 05:08: Vitamin B12 294, Vitamin D 25-Hydroxy 20.2 11/13/19 05:08: Sodium 134 L, Potassium 3.9, Chloride 96 L, Carbon Dioxide 29.0, Anion Gap 9, BUN 45 H, Creatinine 2.52 H, Estim Creat Clear Calc 28.45, Est GFR (MDRD) Af Amer 33 L, Est GFR (MDRD) Non-Af 27 L, BUN/Creatinine Ratio 17.9, Glucose 104, Calcium 8.0 L, Troponin I 0.021 11/13/19 07:35: POC Glucose 118 H 11/13/19 11:51: POC Glucose 191 H Current Medications Acetaminophen (Tylenol) 650 mg PO Q6H PRN PRN PRN Reason: Pain Score 1-10/Temp > 100.7 F [facility] Last Admin: 11/13/19 07:44 Dose: 200 mg Documented by: Apixaban (Eliquis) 2.5 mg PO BID [facility] Last Admin: 11/13/19 09:11 Dose: 2.5 mg Documented by: Aspirin (Aspirin, Baby) 81 mg PO DAILY@0800 [facility] Last Admin: 11/13/19 07:45 Dose: 81 mg Documented by: [facility] ([facility]g) [facility] Last Admin: 11/13/19 07:46 Dose: 25 mg Documented by: Clopidogrel Bisulfate (Plavix) 75 mg PO DAILY [facility] Last Admin: 11/13/19 09:11 Dose: 75 mg Documented by: Dextrose (D50w Syringe) 0 gm IV X1 PRN; Protocol PRN Reason: Hypoglycemia Furosemide (Lasix) 80 mg PO BIDLX [facility] Last Admin: 11/13/19 09:11 Dose: 80 mg Documented by: Glucagon () 1 mg IM .X1 PRN PRN Reason: Hypoglycemia Hydralazine HCl (Apresoline) 100 mg PO TID [facility] Last Admin: 11/13/19 06:38 Dose: 100 mg Documented by: Insulin Human Lispro (Humalog Kwikpen (Bkc)) 0 unit SC ACHS [facility]; Protocol Last Admin: 11/13/19 12:01 Dose: 2 units Documented by: Insulin Human NPH (Humulin N (Bkc)) 20 units SC QHS [facility] Insulin Human NPH (Humulin N (Bkc)) 22 units SC 0700 [facility] Last Admin: 11/13/19 07:47 Dose: 22 units Documented by: Isosorbide Mononitrate (Imdur) 120 mg PO BID [facility] Last Admin: 11/13/19 12:03 Dose: 120 mg Documented by: Loratadine (Claritin) 10 mg PO DAILY [facility] Last Admin: 11/13/19 09:11 Dose: 10 mg Documented by: Losartan Potassium (Cozaar) 100 mg PO DAILY [facility] Metolazone (Zaroxolyn) 2.5 mg PO QWEEK [facility] Nitroglycerin (Nitrostat) 0.4 mg SUBLINGUAL Q5M PRN PRN Reason: CARDIAC/CHEST PAIN Ondansetron HCl (Zofran) 4 mg IV Q8H PRN PRN PRN Reason: NAUSEA/VOMITING Pantoprazole Sodium (Protonix) 40 mg PO BID [facility] Last Admin: 11/13/19 09:11 Dose: 40 mg Documented by: Pravastatin Sodium (Pravachol) 40 mg PO QHS [facility] Ranolazine (Ranexa) 500 mg PO BID [facility] Last Admin: 11/13/19 09:11 Dose: 500 mg Documented by: Sodium Chloride () 10 - 40 ml IV UD PRN PRN Reason: SALINE FLUSH Spironolactone (Aldactone) 50 mg PO DAILY [facility] Last Admin: 11/13/19 07:46 Dose: 50 mg Documented by: STROKE Vital Signs/Narrative: Vital Signs Temp Pulse Resp BP Pulse Ox 11/13/19 09:00 98.1 F 108 H 15 92/61 94 Medical Necessity - Tobacco Use Smoking Status: Former smoker Assessment/Plan All Active Problems (Last Reviewed 11/13/19 @ 10:33 by Lisette Elizondo) Chest pain (Acute) Acute kidney injury superimposed on chronic kidney disease (Acute) Systolic CHF, acute on chronic (Acute) 1. Chest pain, Hx CAD, ischemic CM - likely 2/2 CHF. EKG without acute changes and trop neg x 3. No further CP. Stres test 08/22 negative for ischemic changes. Continue asa/plavix, losartan, imdur, coreg. 2. Acute on chronic systolic CHF - EF 35 % by echo 10/22 RVSP 52 mmHg, mod pulm htn, 1+ MVI, 1-2+ TVI. Continue lasix, aldactone, metolazone 3. CKDIII - improved with lasix. trend 4. Paroxysmal afib - in and out of fib on monitor. continue amiodarone, coreg, eliquis 5. T2DM - continue insulin therapy home + SSI. 6. HTN - borderline. trend. DVT ppx: eliquis DC planning: PT OT to determine if pt appropriate for home This patient was seen by Hang Gamble PA-C under the supervision of Dr. Mas <Regina Mas - Last Filed: 11/13/19 13:38> Subjective: Feeling better overall. No issues overnight. SOB is resolved and LE edema is better. Vitals/I&O's: Vital Signs Temp Pulse Resp BP Pulse Ox 98.1 F 111 H 15 109/71 94 11/13/19 09:00 11/13/19 12:16 11/13/19 09:00 11/13/19 12:05 11/13/19 09:00 Oxygen Delivery Method Room Air Weight: 94.9 kg Body Mass Index (BMI) 30.9 Finger Stick Blood Glucose 105 Intake and Output for Last 24 Hours 11/11/19 11/12/19 11/13/19 23:59 23:59 23:59 Intake Total 1040 / 1040 Output Total 2550 / 2550 Balance -1510 / -1510 General: Alert, Oriented x3, Cooperative, No apparent distress, Well developed, Well nourished, - - older WM sitting up in a chair watching TV and just finished lunch, appears comfortable HEENT: Atraumatic, PERRLA, EOMI, Normocephalic, EAC Clear Oral: Moist Mucosa, No Gingival or Mucosal Lesions/ Ulcerations Neck: Supple, Negative Carotid Bruits, No Nodes, Trachea Midline, Thyroid Normal Size and Texture Lungs: No rhonchi, No wheeze, No rales, Diminished - diffusely Cardiovascular: Regular rate, Regular Rhythm, Normal S1, Normal S2, No murmurs, No Ectopic Activity, No rub noted, No Gallop Abdomen: Bowel Sounds Present, Soft, Non Tender, Obese, No hernias noted Extremities: No clubbing, No cyanosis, Capillary Refill Less than 3 Seconds, Peripheral Pulses Normal Skin: No rashes, No breakdown Musculoskeletal: No Tenderness to Palpation of Joints or Extremities Lymphatic: No Cervical, Supraclavicular, or Inguinal Adenopathy Neurological: Cranial nerves II-XII grossly intact, Neuro grossly intact, Muscle tone normal, Coordination normal Psych/Mental Status: Normal Affect, Appropriate, Alert and oriented to time, place, person, mood and affect Laboratory Results 11/12/19 23:00: WBC 7.6, RBC 4.96, Hgb 12.6 L, Hct 40.8, MCV 82.3, MCH 25.4 L, MCHC 30.9 L, RDW Std Deviation 50.4 H, RDW Coeff of [place] 17.7 H, Plt Count 281, MPV 9.6, Immature Gran % (Auto) 2.100 H, Neut % (Auto) 74.5 H, Lymph % (Auto) 8.3 L, [place] % (Auto) 12.4 H, Eos % (Auto) 2.0, Baso % (Auto) 0.7, Absolute Neuts (auto) 5.7, Absolute Lymphs (auto) 0.63 L, Nucleated RBC % 0 11/12/19 23:00: Sodium 130 L, Potassium 4.2, Chloride 95 L, Carbon Dioxide 29.0, Anion Gap 6, BUN 44 H, Creatinine 2.69 H, Estim Creat Clear Calc 26.65, Est GFR (MDRD) Af Amer 31 L, Est GFR (MDRD) Non-Af 25 L, BUN/Creatinine Ratio 16.4, Glucose 201 H, Calcium 8.2 L, Magnesium 1.8, Troponin I < 0.015 11/12/19 23:00: B-Natriuretic Peptide 241.6 H 11/13/19 02:08: Troponin I < 0.015 11/13/19 05:08: Vitamin B12 294, Vitamin D 25-Hydroxy 20.2 11/13/19 05:08: Sodium 134 L, Potassium 3.9, Chloride 96 L, Carbon Dioxide 29.0, Anion Gap 9, BUN 45 H, Creatinine 2.52 H, Estim Creat Clear Calc 28.45, Est GFR (MDRD) Af Amer 33 L, Est GFR (MDRD) Non-Af 27 L, BUN/Creatinine Ratio 17.9, Glucose 104, Calcium 8.0 L, Troponin I 0.021 11/13/19 07:35: POC Glucose 118 H 11/13/19 11:51: POC Glucose 191 H Current Medications Acetaminophen (Tylenol) 650 mg PO Q6H PRN PRN PRN Reason: Pain Score 1-10/Temp > 100.7 F Amiod[facility]one [facility]) [facility] Last Admin: 11/13/19 07:44 Dose: 200 mg Documented by: Apixaban (Eliquis) 2.5 mg PO BID [facility] Last Admin: 11/13/19 09:11 Dose: 2.5 mg Documented by: Aspirin (Aspirin, Baby) 81 mg PO DAILY@0800 [facility] Last Admin: 11/13/19 07:45 Dose: 81 mg Documented by: [facility]ilol (Coreg) [facility] Last Admin: 11/13/19 07:46 Dose: 25 mg Documented by: Clopidogrel Bisulfate (Plavix) 75 mg PO DAILY [facility] Last Admin: 11/13/19 09:11 Dose: 75 mg Documented by: Dextrose (D50w Syringe) 0 gm IV X1 PRN; Protocol PRN Reason: Hypoglycemia Furosemide (Lasix) 40 mg IV Q8 [facility] Glucagon () 1 mg IM .X1 PRN PRN Reason: Hypoglycemia Hydralazine HCl (Apresoline) 100 mg PO TID [facility] Last Admin: 11/13/19 06:38 Dose: 100 mg Documented by: Insulin Human Lispro (Humalog Kwikpen (Bkc)) 0 unit SC [facility]; Protocol Last Admin: 11/13/19 12:01 Dose: 2 units Documented by: Insulin Human NPH (Humulin N (Bkc)) 20 units SC QHS [facility] Insulin Human NPH (Humulin N (Bkc)) 22 units SC 0700 [facility] Last Admin: 11/13/19 07:47 Dose: 22 units Documented by: Isosorbide Mononitrate (Imdur) 120 mg PO BID [facility] Last Admin: 11/13/19 12:03 Dose: 120 mg Documented by: Loratadine (Claritin) 10 mg PO DAILY [facility] Last Admin: 11/13/19 09:11 Dose: 10 mg Documented by: Losartan Potassium (Cozaar) 100 mg PO DAILY [facility] Metolazone (Zaroxolyn) 2.5 mg PO QWEEK [facility] Nitroglycerin (Nitrostat) 0.4 mg SUBLINGUAL Q5M PRN PRN Reason: CARDIAC/CHEST PAIN Ondansetron HCl (Zofran) 4 mg IV Q8H PRN PRN PRN Reason: NAUSEA/VOMITING Pantoprazole Sodium (Protonix) 40 mg PO BID [facility] Last Admin: 11/13/19 09:11 Dose: 40 mg Documented by: Pravastatin Sodium (Pravachol) 40 mg PO QHS [facility] Ranolazine (Ranexa) 500 mg PO BID [facility] Last Admin: 11/13/19 09:11 Dose: 500 mg Documented by: Sodium Chloride () 10 - 40 ml IV UD PRN PRN Reason: SALINE FLUSH Spironolactone (Aldactone) 50 mg PO DAILY [facility] Last Admin: 11/13/19 07:46 Dose: 50 mg Documented by: STROKE Vital Signs/Narrative: Vital Signs Pulse BP 11/13/19 12:16 111 H 11/13/19 12:05 109/71 Assessment/Plan The above is a reflection of my independent history and exam and the following is my addendum ASSESSMENT CP-resolved -no EKC changes or troponin elevation despite YOMI on CKD YOMI on CKD stage 3 2/2 suspected cardiorenal syndrome -improving with diuresis Hyponatremia Acute on Chronic HFrEF -improving -EF 35% has ICD PAF DM-2 HTN GERD DDD Obesity CAD PLAN -Continue home meds as ordered -continue Lasix IV but now 40 q 8 (home dose is 80 BID) -suspect YOMI is 2/2 cardiorenal syndrome with improvement with diuresis -check am BMP -may need higher doses of lasix at d/c -probable d/c tomorrow if remains stable -d/c ASA as pt does not need to be on triple therapy (on ASA, Eliquis and plavix currently) Inpatient E&M: [id number] [facility]
[2019-11-13] MEDS: 0.9% Saline Lock 10 ML Syringe IV ×2 (15:20→22:32)
[2019-11-13 17:00] LABS: Bedside Glucose 191 mg/dL (70-110)
[2019-11-13] MEDS: Pravastatin 40 MG Tablet PO (22:24)
[2019-11-13] MEDS: Insulin NPH Human 100 UNITS/ML PEN 20 UNITS SC (22:26)
[2019-11-13 23:05] LABS: Bedside Glucose 216 mg/dL (70-110)
[2019-11-14] VITALS (16 sets, daily range): BP systolic 85–130; BP diastolic 55–75; PULSE 76–116; RESP 16–20; TEMP 36.6–36.9; O2SAT 92–100
[2019-11-14] MEDS: hydrALAZINE 50 MG Tablet 100 MG PO ×2 (06:18→14:02)
[2019-11-14] MEDS: Furosemide 40 MG/4 ML Vial IV (06:19)
[2019-11-14] MEDS: 0.9% Saline Lock 10 ML Syringe IV (06:20)
[2019-11-14] MEDS: Insulin Lispro 100 UNIT/ML INSULN.PEN SC ×4 (06:36→21:57)
[2019-11-14] MEDS: Insulin NPH Human 100 UNITS/ML PEN 22 UNITS SC (06:38)
[2019-11-14 06:46] LABS: Bedside Glucose 192 mg/dL (70-110)
[2019-11-14 07:27] LABS: Anion Gap 10 (5-15); BUN 53 mg/dL (7-18); BUN/Creat Ratio 18.7 RATIO (10-20); Calcium,Total 8.3 mg/dL (8.5-10.1); Chloride 92 mmol/L (98-107); Creatinine, Serum 2.83 mg/dL (0.70-1.30); EST Glomerular Filtration Rate 24 mL/min (>60); Est Glom Filt Rate - Afr Amer 29 mL/min (>60); Estimated Creatinine Clearance 25.33 ml/min; Glucose 166 mg/dL (74-106); Potassium 3.9 mmol/L (3.5-5.1); Sodium Level 131 mmol/L (136-145)
[2019-11-14] MEDS: Furosemide 80 MG Tablet PO ×2 (09:03→16:50)
[2019-11-14] MEDS: Carvedilol 25 MG Tablet PO ×2 (09:04→16:50)
[2019-11-14] MEDS: Losartan Potassium 100 MG Tablet PO (09:04)
[2019-11-14] MEDS: APIXABAN 2.5 MG TABLET PO ×2 (09:04→21:53)
[2019-11-14] MEDS: Spironolactone 50 MG Tablet PO (09:04)
[2019-11-14] MEDS: Amiodarone 200 MG Tablet PO (09:04)
[2019-11-14] MEDS: Pantoprazole Sodium 40 MG Tablet PO ×2 (09:05→21:53)
[2019-11-14] MEDS: Loratadine 10 MG Tablet PO (09:05)
[2019-11-14] MEDS: Clopidogrel Bisulfate 75 MG Tablet PO (09:05)
[2019-11-14] MEDS: Ranolazine 500 MG Tablet PO ×2 (09:05→21:53)
--- NOTE | 2019-11-14 11:42 | PCM.PN.HOSP ---
<Hang Gamble - Last Filed: 11/14/19 11:42> Patient Problems: Active and Suspected Problems (Last Reviewed 11/13/19 @ 10:33 by Lisette Elizondo) Acute kidney injury superimposed on chronic kidney disease (Acute) Reason for Visit: CHF Subjective: LE edema resolved. SOB resolved. Mildly tachy, however no palpitations. No CP. No fever/chills. Vitals/I&O's: Vital Signs Temp Pulse Resp BP Pulse Ox 98.1 F 116 H 20 H 106/69 94 11/14/19 09:08 11/14/19 09:08 11/14/19 09:08 11/14/19 09:08 11/14/19 09:08 Oxygen Delivery Method Room Air Weight: 203 lb 4.259 oz Body Mass Index (BMI) 30.9 Finger Stick Blood Glucose 105 Intake and Output for Last 24 Hours 11/12/19 11/13/19 11/14/19 23:59 23:59 23:59 Intake Total 1360 / 1360 222 / 222 Output Total 3300 / 3300 1400 / 1400 Balance -1940 / -1940 -1178 / -1178 General: Alert, Oriented x3, Cooperative HEENT: Atraumatic, PERRLA, EOMI, Normocephalic Neck: Supple, No JVD, Negative Carotid Bruits Lungs: Clear to auscultation, Normal air movement Cardiovascular: Regular rate, No murmurs Abdomen: Bowel Sounds Present, Soft, Non Tender Extremities: No edema, Capillary Refill Less than 3 Seconds Skin: No rashes, No breakdown Musculoskeletal: No Tenderness to Palpation of Joints or Extremities Neurological: Cranial nerves II-XII grossly intact Psych/Mental Status: Normal Affect, Appropriate, Alert and oriented to time, place, person, mood and affect Laboratory Results 11/13/19 11:51: POC Glucose 191 H 11/13/19 16:48: POC Glucose 191 H 11/13/19 22:20: POC Glucose 216 H 11/14/19 05:55: Sodium 131 L, Potassium 3.9, Chloride 92 L, Carbon Dioxide 29.0, Anion Gap 10, BUN 53 H, Creatinine 2.83 H, Estim Creat Clear Calc 25.33, Est GFR (MDRD) Af Amer 29 L, Est GFR (MDRD) Non-Af 24 L, BUN/Creatinine Ratio 18.7, Glucose 166 H, Calcium 8.3 L 11/14/19 05:55: Magnesium Pending 11/14/19 06:34: POC Glucose 192 H Current Medications Acetaminophen (Tylenol) 650 mg PO Q6H PRN PRN PRN Reason: Pain Score 1-10/Temp > 100.7 F [facility] Last Admin: 11/14/19 09:04 Dose: 200 mg Documented by: Apixaban (Eliquis) 2.5 mg PO BID [facility] Last Admin: 11/14/19 09:04 Dose: 2.5 mg Documented by: [facility] ([facility]g) [facility] Last Admin: 11/14/19 09:04 Dose: 25 mg Documented by: Clopidogrel Bisulfate (Plavix) 75 mg PO DAILY [facility] Last Admin: 11/14/19 09:05 Dose: 75 mg Documented by: Dextrose (D50w Syringe) 0 gm IV X1 PRN; Protocol PRN Reason: Hypoglycemia Furosemide (Lasix) 80 mg PO BID@1000,1800 [facility] Last Admin: 11/14/19 09:03 Dose: 80 mg Documented by: Glucagon () 1 mg IM .X1 PRN PRN Reason: Hypoglycemia Hydralazine HCl (Apresoline) 100 mg PO TID [facility] Last Admin: 11/14/19 06:18 Dose: 100 mg Documented by: Insulin Human Lispro (Humalog Kwikpen (Bkc)) 0 unit SC ACHS [facility]; Protocol Last Admin: 11/14/19 06:36 Dose: 2 units Documented by: Insulin Human NPH (Humulin N (Bkc)) 20 units SC QHS [facility] Last Admin: 11/13/19 22:26 Dose: 20 units Documented by: Insulin Human NPH (Humulin N (Bkc)) 22 units SC 0700 [facility] Last Admin: 11/14/19 06:38 Dose: 22 units Documented by: Isosorbide Mononitrate (Imdur) 120 mg PO BID [facility] Last Admin: 11/14/19 09:04 Dose: 120 mg Documented by: Loratadine (Claritin) 10 mg PO DAILY [facility] Last Admin: 11/14/19 09:05 Dose: 10 mg Documented by: Losartan Potassium (Cozaar) 100 mg PO DAILY [facility] Last Admin: 11/14/19 09:04 Dose: 100 mg Documented by: Metolazone (Zaroxolyn) 2.5 mg PO QWEEK [facility] Nitroglycerin (Nitrostat) 0.4 mg SUBLINGUAL Q5M PRN PRN Reason: CARDIAC/CHEST PAIN Ondansetron HCl (Zofran) 4 mg IV Q8H PRN PRN PRN Reason: NAUSEA/VOMITING Pantoprazole Sodium (Protonix) 40 mg PO BID [facility] Last Admin: 11/14/19 09:05 Dose: 40 mg Documented by: Pravastatin Sodium (Pravachol) 40 mg PO QHS [facility] Last Admin: 11/13/19 22:24 Dose: 40 mg Documented by: Ranolazine (Ranexa) 500 mg PO BID [facility] Last Admin: 11/14/19 09:05 Dose: 500 mg Documented by: Sodium Chloride () 10 - 40 ml IV UD PRN PRN Reason: SALINE FLUSH Last Admin: 11/14/19 06:20 Dose: 10 ml Documented by: Spironolactone (Aldactone) 50 mg PO DAILY [facility] Last Admin: 11/14/19 09:04 Dose: 50 mg Documented by: STROKE Vital Signs/Narrative: Vital Signs Temp Pulse Resp BP Pulse Ox 11/14/19 09:08 98.1 F 116 H 20 H 106/69 94 11/14/19 07:46 93 Medical Necessity - Tobacco Use Smoking Status: Former smoker Assessment/Plan All Active Problems (Last Reviewed 11/13/19 @ 10:33 by Lisette Elizondo) Chest pain (Acute) Acute kidney injury superimposed on chronic kidney disease (Acute) Systolic CHF, acute on chronic (Acute) 1. Chest pain, Hx CAD, ischemic CM 2/2 acute on chronic systolic CHF. CHF resolved. Chest pain resolved. 2. Acute on chronic systolic CHF - EF 35 % by echo 10/22 RVSP 52 mmHg, mod pulm htn, 1+ MVI, 1-2+ TVI. Continue lasix, aldactone, metolazone 3. CKDIII - improved with lasix. trend 4. Paroxysmal afib - in and out of fib on monitor. continue amiodarone, coreg, eliquis. Increased tachycardia today, aflutter. Consulted cardiology. 5. T2DM - continue insulin therapy home + SSI. 6. HTN - borderline. trend. DVT ppx: eliquis DC planning: [place]. This patient was seen by Hang Gamble PA-C under the supervision of Dr. Mas <Regina Mas - Last Filed: 11/14/19 13:40> Subjective: Feeling better today and feels like his edema has resolved and breathing is at baseline. Tachycardic overnight. Vitals/I&O's: Vital Signs Temp Pulse Resp BP Pulse Ox 98.1 F 116 H 20 H 106/69 94 11/14/19 09:08 11/14/19 09:08 11/14/19 09:08 11/14/19 09:08 11/14/19 09:08 Oxygen Delivery Method Room Air Weight: 92.2 kg Body Mass Index (BMI) 30.9 Finger Stick Blood Glucose 105 Intake and Output for Last 24 Hours 11/12/19 11/13/19 11/14/19 23:59 23:59 23:59 Intake Total 1360 / 1360 702 / 702 Output Total 3300 / 3300 1900 / 1900 Balance -1940 / -1940 -1198 / -1198 General: Alert, Oriented x3, Cooperative, No apparent distress, Well developed, Well nourished, - - older WM sitting up in a chair, appears older than stated age HEENT: Atraumatic, PERRLA, EOMI, Normocephalic, EAC Clear Oral: Moist Mucosa, No Gingival or Mucosal Lesions/ Ulcerations Neck: Supple, No JVD, Negative Carotid Bruits, No Nodes, No Nuchal Rigidity, Trachea Midline, Thyroid Normal Size and Texture Lungs: Clear to auscultation, Normal air movement, No rhonchi, No wheeze, No rales Cardiovascular: Normal S1, Normal S2, No murmurs, No Ectopic Activity, Irregular Rate, No rub noted, No Gallop, Tachycardic Abdomen: Bowel Sounds Present, Soft, Non Tender, Non-Distended Extremities: No clubbing, No cyanosis, No edema, Capillary Refill Less than 3 Seconds Skin: No rashes, No breakdown Musculoskeletal: No Tenderness to Palpation of Joints or Extremities, No Muscle Wasting, Arthritic Changes Neurological: Cranial nerves II-XII grossly intact, Neuro grossly intact, Muscle tone normal, Coordination normal Psych/Mental Status: Normal Affect, Appropriate, Alert and oriented to time, place, person, mood and affect Laboratory Results 11/13/19 16:48: POC Glucose 191 H 11/13/19 22:20: POC Glucose 216 H 11/14/19 05:55: Sodium 131 L, Potassium 3.9, Chloride 92 L, Carbon Dioxide 29.0, Anion Gap 10, BUN 53 H, Creatinine 2.83 H, Estim Creat Clear Calc 25.33, Est GFR (MDRD) Af Amer 29 L, Est GFR (MDRD) Non-Af 24 L, BUN/Creatinine Ratio 18.7, Glucose 166 H, Calcium 8.3 L 11/14/19 05:55: Magnesium 2.1 11/14/19 06:34: POC Glucose 192 H 11/14/19 11:45: POC Glucose 312 H Current Medications Acetaminophen (Tylenol) 650 mg PO Q6H PRN PRN PRN Reason: Pain Score 1-10/Temp > 100.7 F Amiodarone [facility] ([facility]) [facility] Last Admin: 11/14/19 09:04 Dose: 200 mg Documented by: Apixaban (Eliquis) 2.5 mg PO BID [facility] Last Admin: 11/14/19 09:04 Dose: 2.5 mg Documented by: [facility]ilol (Coreg) [facility] Last Admin: 11/14/19 09:04 Dose: 25 mg Documented by: Clopidogrel Bisulfate (Plavix) 75 mg PO DAILY [facility] Last Admin: 11/14/19 09:05 Dose: 75 mg Documented by: Dextrose (D50w Syringe) 0 gm IV X1 PRN; Protocol PRN Reason: Hypoglycemia Diltiazem HCl (Cardizem) 30 mg PO Q6 [facility] Furosemide (Lasix) 80 mg PO BID@1000,1800 [facility] Last Admin: 11/14/19 09:03 Dose: 80 mg Documented by: Glucagon () 1 mg IM .X1 PRN PRN Reason: Hypoglycemia Hydralazine HCl (Apresoline) 100 mg PO TID [facility] Last Admin: 11/14/19 06:18 Dose: 100 mg Documented by: Insulin Human Lispro (Humalog Kwikpen (Bkc)) 0 unit SC ACHS [facility]; Protocol Last Admin: 11/14/19 11:46 Dose: 5 units Documented by: Insulin Human NPH (Humulin N (Bkc)) 20 units SC QHS [facility] Last Admin: 11/13/19 22:26 Dose: 20 units Documented by: Insulin Human NPH (Humulin N (Bkc)) 22 units SC 0700 [facility] Last Admin: 11/14/19 06:38 Dose: 22 units Documented by: Isosorbide Mononitrate (Imdur) 120 mg PO BID [facility] Last Admin: 11/14/19 09:04 Dose: 120 mg Documented by: Loratadine (Claritin) 10 mg PO DAILY [facility] Last Admin: 11/14/19 09:05 Dose: 10 mg Documented by: Losartan Potassium (Cozaar) 100 mg PO DAILY [facility] Last Admin: 11/14/19 09:04 Dose: 100 mg Documented by: Metolazone (Zaroxolyn) 2.5 mg PO QWEEK [facility] Nitroglycerin (Nitrostat) 0.4 mg SUBLINGUAL Q5M PRN PRN Reason: CARDIAC/CHEST PAIN Ondansetron HCl (Zofran) 4 mg IV Q8H PRN PRN PRN Reason: NAUSEA/VOMITING Pantoprazole Sodium (Protonix) 40 mg PO BID [facility] Last Admin: 11/14/19 09:05 Dose: 40 mg Documented by: Pravastatin Sodium (Pravachol) 40 mg PO QHS [facility] Last Admin: 11/13/19 22:24 Dose: 40 mg Documented by: Ranolazine (Ranexa) 500 mg PO BID [facility] Last Admin: 11/14/19 09:05 Dose: 500 mg Documented by: Sodium Chloride () 10 - 40 ml IV UD PRN PRN Reason: SALINE FLUSH Last Admin: 11/14/19 06:20 Dose: 10 ml Documented by: Spironolactone (Aldactone) 50 mg PO DAILY [facility] Last Admin: 11/14/19 09:04 Dose: 50 mg Documented by: Assessment/Plan The above is a reflection of my independent history and exam and the following is my addendum ASSESSMENT CP-resolved -no EKC changes or troponin elevation despite YOMI on CKD YOMI on CKD stage 3 2/2 suspected cardiorenal syndrome -up a bit today --> lasix decreased Hyponatremia -reduce lasix dose -slightly worse today at 131 Acute on Chronic HFrEF -improving -EF 35% has ICD PAF -rate uncontrolled overnight DM-2 HTN GERD DDD Obesity CAD PLAN -Continue home meds as ordered -continue Lasix but switch to PO 80 BID -repeat BMP in am -check am BMP -Cardiology consulted for elevated rates--> added Cardizem to regimen (agree, dig is not ideal with renal issues at baseline) -appreciate input -d/c ASA as pt does not need to be on triple therapy (on ASA, Eliquis and plavix currently) Inpatient E&M: [id number] [facility] L[facility]
[2019-11-14 11:51] LABS: Bedside Glucose 312 mg/dL (70-110)
[2019-11-14 11:56] LABS: Magnesium 2.1 mg/dL (1.6-2.6)
--- NOTE | 2019-11-14 12:36 | CON.PCM_ITS ---
Problem List (1) Atrial fibrillation and flutter Status: Chronic (2) Systolic CHF, acute on chronic Status: Acute (3) CAD in [place] artery Status: Chronic (4) History of coronary artery stent placement Status: Chronic Comment: SARA-RCA 06/15/2011, SARA-OM1 06/30/2011, SARA-LAD 08/20/2014, SARA-Prox- RCA 06/08/2016 (5) Cardiomyopathy, ischemic Status: Chronic (6) Presence of implantable cardioverter-defibrillator (ICD) Status: Chronic (7) Hyperlipidemia Status: Chronic Qualifiers: (8) Essential hypertension Status: Chronic (9) Type II diabetes mellitus Status: Chronic (10) Renal insufficiency Status: Chronic Reason for Consult Date of Consultation: 11/14/19 History of Present Illness: The patient is a 69 year old white male with a past medical history which is included underlying atrial fibrillation/flutter, chronic systolic mediated CHF, CAD, PCI, ischemic cardiomyopathy, status post ICD placement, hyperlipidemia, hypertension, diabetes mellitus, chronic renal insufficiency who is referred for concerns of atrial flutter with rapid ventricular response and acute on chronic systolic mediated CHF. He states he had been doing well for a brief period of time. He presented back to the hospital because of concerns of shortness of breath/dyspnea and lower extremity edema. He was felt to have evidence of his underlying atrial flutter with elevated heart rate as well as acute on chronic systolic mediated CHF. He states overall he is feeling better however there is still concern about his heart rate being elevated and difficult to control despite his ongoing medical management. He denies any ongoing chest discomfort at this time. He is not concerned with near syncope or syncope. He states his ICD has not discharged. He does note he has been told in the past that he may need an ablation. He states if he does have an ablation he would prefer to go to [facility] if possible to have this accomplished. Did have cardiac enzymes performed. His troponin I levels were negative. He had an ECG. He appeared to be an underlying atrial flutter with a left axis deviation with a right bundle branch block and an inferior IA pattern of indeterminate age cannot be excluded and an anterior lateral IA pattern of indeterminate age cannot be excluded. His chest x-ray was reported as demonstrating no acute findings. [] Past Medical History Allergies/Adverse Reactions: Allergies diltiazem Allergy (Verified 11/12/19 22:52) LOWER LEG SWELLING tamsulosin [From Flomax] Allergy (Verified 11/12/19 22:52) Shortness of breath/muscle weakness atorvastatin calcium [From Lipitor] Adverse Reaction (Verified 11/12/19 22:52) MUSCLE WEAKNESS Home Medications: Ambulatory Orders Medication Instructions Recorded Amiodarone HCl [Cordarone] 200 mg PO DAILY 03/13/19 Loratadine 10 mg PO DAILY 03/13/19 Pantoprazole Sodium [Protonix] 40 mg PO BID 03/13/19 Ranolazine [Ranolazine ER] 500 mg PO BID 03/13/19 Insulin NPH Human Isophane 22 unit SQ BREAKFAST 04/20/19 [Novolin N] Furosemide [Lasix] 80 mg PO BID 06/14/19 Insulin NPH Human Isophane 20 unit SQ QHS 06/14/19 [Humulin N] clopidogrel 75 mg tablet 75 mg PO DAILY #30 tab 06/23/19 hydralazine 100 mg tablet 100 mg PO TID #90 tab 06/23/19 isosorbide mononitrate 120 mg 120 mg PO BID #60 tab 06/23/19 tablet,extended release 24 hr losartan 100 mg tablet 100 mg PO DAILY #90 tab 07/21/19 apixaban 2.5 mg tablet 2.5 mg PO BID #60 tab 08/13/19 Nitroglycerin (INPATIENT USE) 0.4 mg SUBLINGUAL Q5M PRN #30 tab 08/15/19 [Nitrostat] carvedilol 25 mg tablet 25 mg PO BID #180 tab 09/14/19 pravastatin 40 mg tablet 40 mg PO QHS #90 tab 09/15/19 Aspirin [Aspirin, Baby] 81 mg PO DAILY@0800 10/20/19 Spironolactone 50 mg PO DAILY #30 tab 10/21/19 Metolazone 2.5 mg PO QWEEK 11/12/19 Past Medical History (Chronic Problems): Chronic Problems (Last Reviewed 11/13/19 @ 10:33 by Lisette Elizondo) Atrial fibrillation and flutter (Chronic) CAD in [place] artery (Chronic) Renal insufficiency (Chronic) Stage 3 chronic kidney disease (Chronic) Essential hypertension (Chronic) skilled nursing current use of 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) Nonsustained ventricular tachycardia (Chronic) Chronic systolic CHF (congestive heart failure) (Chronic) Presence of implantable cardioverter-defibrillator (ICD) (Chronic) 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) History of coronary artery stent placement (Chronic 06/08/16) SARA-RCA 06/15/2011, SARA-OM1 06/30/2011, SARA-LAD 08/20/2014, SARA-Prox- RCA 06/08/2016 Atherosclerosis of coronary artery of [place] heart without angina pectoris (Chronic) SARA-RCA 06/15/2011, SARA-OM1 06/30/2011, SARA-LAD 08/20/2014, SARA-Prox- RCA 06/08/2016 Paroxysmal atrial fibrillation (Chronic) Hyperlipidemia (Chronic) Type II diabetes mellitus (Chronic) STEMI (ST elevation myocardial infarction) (Chronic) Cardiomyopathy, ischemic (Chronic) Surgical History: herniorrhaphy, total knee arthroplasty - ACLS repair, - - s/p stents, AICD s/p cardioversion, s/p wrist and elbow surgery Psychiatric History: No pertinent psych hx - *Family History Maternal Family History: Family History (Last Reviewed 11/13/19 @ 10:33 by Lisette Elizondo) Brother Sudden cardiac History Items: Hypertension Paternal Family History: Family History (Last Reviewed 11/13/19 @ 10:33 by Lisette Elizondo) Brother Sudden cardiac History Items: Unknown Sibling Family History: Family History (Last Reviewed 11/13/19 @ 10:33 by Lisette Elizondo) Brother Sudden cardiac History Items: Heart Disease Smoking Status: Former smoker Review of Systems - Review of Systems General: Denies: Fever, Night Sweats, Fatigue Cardiovascular: Reports: Shortness of Breath, Peripheral Edema. Denies: Chest Discomfort, Orthopnea, PND, Palpitations, Lightheadedness, Dizziness, Near Syncope, Syncope Respiratory: Reports: Shortness of Breath. Denies: Cough, Sputum Production, Hemoptysis Gastrointestinal: Denies: Hematemesis, Hematochezia, Melena Genitourinary: Denies: Dysuria, Hematuria Skin: Denies: Rash Subjectve: This is a 69-year-old white male appears resting comfortably at the moment in no acute distress. Objective: Vital Signs Temp Pulse Resp BP Pulse Ox 98.1 F 116 H 20 H 106/69 94 11/14/19 09:08 11/14/19 09:08 11/14/19 09:08 11/14/19 09:08 11/14/19 09:08 Oxygen Delivery Method Room Air Weight: 203 lb 4.259 oz Body Mass Index (BMI) 30.9 Finger Stick Blood Glucose 105 Intake and Output for Last 24 Hours 11/12/19 11/13/19 11/14/19 23:59 23:59 23:59 Intake Total 1360 / 1360 702 / 702 Output Total 3300 / 3300 1900 / 1900 Balance -1940 / -1940 -1198 / -1198 General: Awake, Alert, Oriented x 3, Cooperative, No Acute Distress HEENT: Atraumatic, Normocephalic, PERRL, EOMI, Sclera Non Icteric Neck: Supple, Good ROM Lungs: Rales - Right Base Cardiovascular: Irregular Rhythm, Normal S1, Normal S2 Abdomen: Bowel Sounds Present, Soft Extremities: - - Lower extremity and [place] wraps Psych/Mental Status: Appropriate 11/14/19 05:55: Sodium 131 L, Potassium 3.9, Chloride 92 L, Carbon Dioxide 29.0, Anion Gap 10, BUN 53 H, Creatinine 2.83 H, Est GFR (MDRD) Af Amer 29 L, Est GFR (MDRD) Non-Af 24 L, BUN/Creatinine Ratio 18.7, Glucose 166 H, Calcium 8.3 L 11/14/19 05:55: Magnesium 2.1 Rhythm: Atrial flutter EKG: As noted above ECHO: 10-20-2019 Interpretation Summary Mildly dilated left ventricle. Hammond : Akinetic. Rest of the heart are moderately hypokinetic EF approximately 35% Moderate pulmonary hypertension. The inferior vena cava is dilated No collapse of the inferior vena cava. Mild (1+) mitral valve insufficiency. Mild to moderate (1-2+) tricuspid valve insufficiency. Stress Test: Stress Test Report Date: 08-15-2019 Procedure: Pharmacologic stress nuclear imaging study Indications: Chest pain; CAD; PCI; cardiomyopathy; CHF; atrial fibrillation Consent: Per the patient Procedure: The patient underwent pharmacologic (Regadenoson) evaluation with a peak heart rate of 121 beats per minute (78 %predicted maximal heart rate) and a peak blood pressure of 170/98 mmHg. The baseline ECG demonstrated atrial fibrillation; poor R wave progression; anterior IA of indeterminate age cannot be excluded; inferior IA of indeterminate age cannot be excluded. The peak pharmacologic ECG demonstrated no obvious ECG changes. There was a rare PVC during recovery. There was no complaint of chest discomfort during pharmacologic infusion or recovery. The examination was discontinued secondary to completion of protocol. Impression: 1. Pharmacologic (Regadenoson) evaluation 2. Peak pharmacologic ECG with no obvious ECG changes. 3. There was a rare PVC during recovery. 4. Nuclear images pending Myocardial perfusion imaging study: Technique: The patient was injected with 15.0 millicuries of technetium 99m Cardiolite and subsequently rest SPECT Cardiolite nuclear imaging was obtained in the horizontal long, vertical long, and short axis views. The patient underwent pharmacologic (Regadenoson) evaluation with a peak heart rate of 121 beats per minute (78 % percent predicted maximal heart rate) and a peak blood pressure of 170/98 mmHg. The patient was injected with 45.0 millicuries of technetium 99m Cardiolite and subsequently stress SPECT Cardiolite nuclear imaging was obtained in the horizontal long, vertical long, and short axis views. A gated Cardiolite study at peak stress was obtained. Interpretation: Rest and stress SPECT Cardiolite nuclear imaging status post realignment, normalization, and attenuation correction demonstrate areas of diminished myocardial perfusion/tracer uptake in portions of the distal anterior, distal anteroseptal, anteroapical, septal apical, lateral apical, and inferoapical segments without significant change between rest and stress. There is diminished end systolic thickening and brightening in the aforementioned areas. The gated Cardiolite study demonstrates diminished myocardial thickening and inward wall motion in the aforementioned areas. The reported LVEF is 39 %. Impression: 1. Rest and stress SPECT Cardiolite nuclear imaging demonstrate myocardial perfusion changes appearing compatible with areas of previous myocardial injury/infarction involving portions of the distal anterior, distal anteroseptal, anteroapical, septal apical, lateral apical, and inferoapical segments with no myocardial perfusion changes considered diagnostic for associated stress-induced myocardial ischemia. 2. The gated Cardiolite study reports an LVEF of 39 %. Cardiac Cath: 01-07-2018 CONCLUSIONS Non obstructive coronary arteries Right heart pressures - Normal The patient has normal pulmonary hemodynamics. RECOMMENDATIONS Risk factor modification Management as per referring Printing Engineer PFTS in 2 weeks. Restart Eliquis in 5 days. Manual sheath removal. Would not pursue PCI of distal LAD or RCA due to moderate mid LAD calcium and small caliber LAD, as well as extreme difficulty of delivering stents to RCA in 06/2016. Pt has challenging proximal curve in RCA which required stent deployment in proximal RCA, which was intended for distal RCA at the time. Distal RCA stenosis has improved and does not appear to require stenting at this time. CORONARY ANGIOGRAPHY DOMINANCE: Right Dominant LEFT HEART ASSESSMENT Left Ventricular Ejection Fraction: by LV Gram 45 % Inferior Mid Hypokinesis - Mild Depressed Left Ventricular systolic function LVEDP: 7 mmHg Normal Left Ventricular End Diastolic Pressure RIGHT HEART ASSESSMENT Thermal CO: 4.74 Thermal CI: 2.26 PW: 8/8 6 PA: 35/14 18 RV: 32/0 0 RA: 5/ 1 PVR: 203 SVR: 1030 LEFT MAIN: 30 % Stenosis LEFT ANTERIOR DECENDING ARTERY: PROX LAD: Instent restenosis 10 % DISTAL LAD: Moderate calcification, 65 % Stenosis CIRCUMFLEX ARTERY: OM 1: Proximal - Instent restenosis 0 % RIGHT CORONARY ARTERY: PROX RCA: Instent restenosis 20 % MID RCA: Instent restenosis 30 % DISTAL RCA: 50 % Stenosis RT PLV: Mild luminal irregularities less than 30% RT PDA: Proximal - Mild luminal irregularities Chest x-ray: As noted above: Please see official report Assessment/Plan 1. Atrial flutter The patient continues with underlying atrial flutter. His rate has been challenging to control despite being on beta-janette therapy and amiodarone therapy. Consideration will have to be given to advancing his beta-janette dose if tolerated or adding additional agents such as calcium channel antagonist if tolerated. The patient is not an ideal patient for digitalis therapy based upon his tonic renal insufficiency. The other option would be to consider the patient for tertiary care center evaluation with AV node ablation and subsequent allowing his ICD to provide permanent pacemaker backup. The AV node ablation has been discussed with the patient in the past. Again he states he is willing to proceed in this manner. He states he would prefer this be performed at [facility] if possible. 2. Acute on chronic systolic mediated CHF At the moment he states he is feeling better. He will need to continue medical management with adjustment as needed for his volume status. 3. CAD status post PCI The patient has an extensive history of underlying CAD and has undergone PCI in the past. He does not appear to have acute coronary syndrome at this time. He will continue medical management. 4. Ischemic mediated cardiomyopathy He does have an underlying ischemic mediated cardiomyopathy. He has been on medical management. He does have an ICD in place. 5. ICD He did have his ICD interrogated recently. It was functioning appropriately. Again this could be used for permanent pacemaker support if he underwent AV node ablation. 6. Hyperlipidemia He will continue medical management. 7. Hypertension He will continue antihypertensive therapy with adjustment as needed taking into consideration his other issues including his renal insufficiency. 8. Diabetes mellitus He will continue under the care of internal medicine. 9. Chronic renal insufficiency This does have to be taken into consideration with respect to his other medications. Comment: The patient's case has been discussed with the patient and previously with the [facility] staff. This note was generated using a voice recognition system and there may be incorrect words, spelling or punctuation that were not noted when reviewing the office note prior to saving.
--- NOTE | 2019-11-14 13:32 | CASEMGMT ---
SW completed a Palliative Care screening tool on patient. He scored a 7. SW spoke with patient regarding Palliative Care and he told SW to leave the pamphlet. Mamta GARCIA MSW
[2019-11-14] MEDS: dilTIAZem 30 MG Tablet PO ×2 (14:02→16:50)
[2019-11-14 17:00] LABS: Bedside Glucose 262 mg/dL (70-110)
[2019-11-14] MEDS: Pravastatin 40 MG Tablet PO (21:53)
[2019-11-14] MEDS: Insulin NPH Human 100 UNITS/ML PEN 20 UNITS SC (21:57)
[2019-11-14 22:46] LABS: Bedside Glucose 316 mg/dL (70-110)
[2019-11-15] VITALS (13 sets, daily range): BP systolic 96–138; BP diastolic 66–89; PULSE 84–107; RESP 16–18; TEMP 36.2–36.8; O2SAT 94–99
[2019-11-15 06:48] LABS: Anion Gap 10 (5-15); BUN 65 mg/dL (7-18); BUN/Creat Ratio 19.4 RATIO (10-20); Calcium,Total 8.2 mg/dL (8.5-10.1); Chloride 94 mmol/L (98-107); Creatinine, Serum 3.35 mg/dL (0.70-1.30); EST Glomerular Filtration Rate 20 mL/min (>60); Est Glom Filt Rate - Afr Amer 24 mL/min (>60); Glucose 162 mg/dL (74-106); Potassium 4.2 mmol/L (3.5-5.1); Sodium Level 131 mmol/L (136-145)
[2019-11-15 06:55] LABS: Bedside Glucose 167 mg/dL (70-110)
[2019-11-15] MEDS: Carvedilol 25 MG Tablet PO ×2 (08:12→16:41)
[2019-11-15] MEDS: Amiodarone 200 MG Tablet PO (08:12)
[2019-11-15] MEDS: Insulin Lispro 100 UNIT/ML INSULN.PEN SC ×3 (08:12→21:28)
[2019-11-15] MEDS: Insulin NPH Human 100 UNITS/ML PEN 24 UNITS SC (08:13)
[2019-11-15] MEDS: Loratadine 10 MG Tablet PO (10:48)
[2019-11-15] MEDS: Ranolazine 500 MG Tablet PO ×2 (10:48→21:57)
[2019-11-15] MEDS: Losartan Potassium 100 MG Tablet PO (10:48)
[2019-11-15] MEDS: Pantoprazole Sodium 40 MG Tablet PO ×2 (10:48→21:29)
[2019-11-15] MEDS: APIXABAN 2.5 MG TABLET PO ×2 (10:50→21:28)
[2019-11-15] MEDS: Clopidogrel Bisulfate 75 MG Tablet PO (10:50)
--- NOTE | 2019-11-15 10:57 | PN.CARD_ITS ---
Subjectve: Patient seen and examined, and sitting in a chair without any difficulty. Telemetry shows atrial flutter with 2-1 conduction. He denies any chest pain. His lower extremity may has completely resolved. Objective: Vital Signs Temp Pulse Resp BP Pulse Ox 97.1 F L 101 H 16 102/69 97 11/15/19 10:45 11/15/19 10:45 11/15/19 10:45 11/15/19 10:45 11/15/19 10:45 Oxygen Delivery Method Room Air Weight: 203 lb 4.259 oz Body Mass Index (BMI) 30.9 Finger Stick Blood Glucose 105 Intake and Output for Last 24 Hours 11/13/19 11/14/19 11/15/19 23:59 23:59 23:59 Intake Total 1360 / 1360 1182 / 1182 Output Total 3300 / 3300 2850 / 2850 450 / 450 Balance -1940 / -1940 -1668 / -1668 -450 / -450 General: Awake, Alert, Oriented x 3 HEENT: PERRL, EOMI, Sclera Non Icteric Neck: Supple, Good ROM, No Lymph Node Enlargement Lungs: Clear to auscultation Cardiovascular: Irregular Rhythm, Normal S1, Normal S2, No Murmurs, No Rubs, No Gallops Vascular: No Carotid Bruits, Normal Femoral Pulses, Normal Radial Pulses, Normal Dorsalis Pedal Pulse, Normal Posterior Tibial Pulses Abdomen: Bowel Sounds Present, Soft, Non Tender, No HSM, No Organomegaly Extremities: No Cyanosis, No Clubbing, No edema Neurological: No Focal Motor or Sensory Deficit 11/14/19 05:55: Magnesium 2.1 11/15/19 05:51: Sodium 131 L, Potassium 4.2, Chloride 94 L, Carbon Dioxide 27.0, Anion Gap 10, BUN 65 H, Creatinine 3.35 H, Est GFR (MDRD) Af Amer 24 L, Est GFR (MDRD) Non-Af 20 L, BUN/Creatinine Ratio 19.4, Glucose 162 H, Calcium 8.2 L Rhythm: EKG: ECHO: Stress Test: Cardiac Cath: PCI: CT Surgery: Holter monitor: EPS: PPM: CXR: Chest CT Scan: Medical Necessity - Tobacco Use Smoking Status: Former smoker Assessment/Plan 1. Congestive heart failure: Patient has biventricular congestive heart failure exacerbation, superimposed on chronic congestive heart failure with atrial flutter, coronary disease, chronic renal insufficiency. The patient has been diuresed fairly well, and his creatinine has minimally increased at this time. His lower extremity edema has completely resolved. I recommend continuing him on his current medical regimen of Coreg, spironolactone, Lasix 80 mg p.o. twice daily and would recommend increasing his metolazone to 2.5 mg on Wednesday and in order to provide better diuresis throughout the week. 2. Atrial flutter: Patient has had several CHF exacerbations and several previous DC cardioversions which have been unsuccessful. At this point I would defer the patient to Dr. Morales at [facility] for possible atrial flutter ablation followed by possible upgrade of his AICD pacemaker if indicated. I do not believe this needs to be done as an as an inpatient, but we can make arrangements for him to be set up as an outpatient. The meantime he will continue his Eliquis. 3. Coronary artery disease: The patient is asymptomatic from a cardiac standpoint I do not believe he would benefit from repeat catheterization. His most recent catheterization 2017 showed stable coronary artery disease. Continue baby aspirin. 4. Patient may be discharged home and follow-up with the heart group going forward. We will try to make arrangements for the patient to be seen by Dr. Morales as an outpatient for possible atrial flutter ablation plus/minus upgrade of his AICD. 5. Thank you very much for the opportunity to participate in the cardiac care of your patient. Inpatient E&M: 26007 Subs Hosp L2
[2019-11-15 11:56] LABS: Bedside Glucose 283 mg/dL (70-110)
--- NOTE | 2019-11-15 12:23 | PCM.PN.HOSP ---
<Hang Gamble - Last Filed: 11/15/19 12:23> Patient Problems: Active and Suspected Problems (Last Reviewed 11/13/19 @ 10:33 by Lisette Elizondo) Acute kidney injury superimposed on chronic kidney disease (Acute) Reason for Visit: CHF, YOMI Subjective: No SOB, LE edema resolved. No palpitations. No LH/Dizziness. Hypotensive last night requiring meds to be held. borderline this AM. Worsening renal function. Pt does not have a vp software. Vitals/I&O's: Vital Signs Temp Pulse Resp BP Pulse Ox 97.1 F L 101 H 16 102/69 97 11/15/19 10:45 11/15/19 10:45 11/15/19 10:45 11/15/19 10:45 11/15/19 10:45 Oxygen Delivery Method Room Air Weight: 203 lb 4.259 oz Body Mass Index (BMI) 30.9 Finger Stick Blood Glucose 105 Intake and Output for Last 24 Hours 11/13/19 11/14/19 11/15/19 23:59 23:59 23:59 Intake Total 1360 / 1360 1182 / 1182 400 / 400 Output Total 3300 / 3300 2850 / 2850 850 / 850 Balance -1940 / -1940 -1668 / -1668 -450 / -450 General: Alert, Oriented x3, Cooperative HEENT: Atraumatic, PERRLA, EOMI, Normocephalic Neck: Supple, No JVD, Negative Carotid Bruits Lungs: Clear to auscultation, Normal air movement Cardiovascular: No murmurs, Irregular Rate Abdomen: Bowel Sounds Present, Soft, Non Tender, Obese Extremities: Capillary Refill Less than 3 Seconds, Edema - trace pitting at the ankle Skin: No rashes, No breakdown Musculoskeletal: No Tenderness to Palpation of Joints or Extremities Neurological: Cranial nerves II-XII grossly intact Psych/Mental Status: Normal Affect, Appropriate, Alert and oriented to time, place, person, mood and affect Laboratory Results 11/14/19 16:47: POC Glucose 262 H 11/14/19 21:56: POC Glucose 316 H 11/15/19 05:51: Sodium 131 L, Potassium 4.2, Chloride 94 L, Carbon Dioxide 27.0, Anion Gap 10, BUN 65 H, Creatinine 3.35 H, Estim Creat Clear Calc 21.40, Est GFR (MDRD) Af Amer 24 L, Est GFR (MDRD) Non-Af 20 L, BUN/Creatinine Ratio 19.4, Glucose 162 H, Calcium 8.2 L 11/15/19 06:52: POC Glucose 167 H 11/15/19 11:18: POC Glucose 283 H Current Medications Acetaminophen (Tylenol) 650 mg PO Q6H PRN PRN PRN Reason: Pain Score 1-10/Temp > 100.7 F [facility] Last Admin: 11/15/19 08:12 Dose: 200 mg Documented by: Apixaban (Eliquis) 2.5 mg PO BID [facility] Last Admin: 11/15/19 10:50 Dose: 2.5 mg Documented by: [facility]il[facility] ([facility]g) [facility] Last Admin: 11/15/19 08:12 Dose: 25 mg Documented by: Clopidogrel Bisulfate (Plavix) 75 mg PO DAILY [facility] Last Admin: 11/15/19 10:50 Dose: 75 mg Documented by: Dextrose (D50w Syringe) 0 gm IV X1 PRN; Protocol PRN Reason: Hypoglycemia Glucagon () 1 mg IM .X1 PRN PRN Reason: Hypoglycemia Hydralazine HCl (Apresoline) 100 mg PO TID [facility] Last Admin: 11/15/19 06:19 Dose: Not Given Documented by: Insulin Human Lispro (Humalog Kwikpen (Bkc)) 0 unit SC ACHS [facility]; Protocol Last Admin: 11/15/19 11:19 Dose: 4 units Documented by: Insulin Human NPH (Humulin N (Bkc)) 20 units SC QHS [facility] Last Admin: 11/14/19 21:57 Dose: 20 units Documented by: Insulin Human NPH (Humulin N (Bkc)) 24 units SC 0700 [facility] Last Admin: 11/15/19 08:13 Dose: 24 units Documented by: Isosorbide Mononitrate (Imdur) 120 mg PO BID [facility] Last Admin: 11/15/19 10:48 Dose: 120 mg Documented by: Loratadine (Claritin) 10 mg PO DAILY [facility] Last Admin: 11/15/19 10:48 Dose: 10 mg Documented by: Losartan Potassium (Cozaar) 100 mg PO DAILY [facility] Last Admin: 11/15/19 10:48 Dose: 100 mg Documented by: Nitroglycerin (Nitrostat) 0.4 mg SUBLINGUAL Q5M PRN PRN Reason: CARDIAC/CHEST PAIN Ondansetron HCl (Zofran) 4 mg IV Q8H PRN PRN PRN Reason: NAUSEA/VOMITING Pantoprazole Sodium (Protonix) 40 mg PO BID [facility] Last Admin: 11/15/19 10:48 Dose: 40 mg Documented by: Pravastatin Sodium (Pravachol) 40 mg PO QHS [facility] Last Admin: 11/14/19 21:53 Dose: 40 mg Documented by: Ranolazine (Ranexa) 500 mg PO BID [facility] Last Admin: 11/15/19 10:48 Dose: 500 mg Documented by: Sodium Chloride () 10 - 40 ml IV UD PRN PRN Reason: SALINE FLUSH Last Admin: 11/14/19 06:20 Dose: 10 ml Documented by: STROKE Vital Signs/Narrative: Vital Signs Temp Pulse Resp BP Pulse Ox 11/15/19 10:45 97.1 F L 101 H 16 102/69 97 11/15/19 09:00 97.2 F L 103 H 16 119/75 95 Medical Necessity - Tobacco Use Smoking Status: Former smoker Assessment/Plan All Active Problems (Last Reviewed 11/13/19 @ 10:33 by Lisette Elizondo) Chest pain (Acute) Acute kidney injury superimposed on chronic kidney disease (Acute) Systolic CHF, acute on chronic (Acute) 1. Chest pain, Hx CAD, ischemic CM 2/2 acute on chronic systolic CHF. CHF resolved. Chest pain resolved. 2. Acute on chronic systolic CHF - EF 35 % by echo 10/22 RVSP 52 mmHg, mod pulm htn, 1+ MVI, 1-2+ TVI. Diuretics held today. 3. YOMI on CKDIII - now worsening. Nephrology consulted. Pt has no vp software. Suspect 2/2 hypotension yesterday. Cardiology is considering a referral as an outpatient for ablation 4. Paroxysmal afib - cardizem added yesterday however BP dropped. 5. T2DM - continue insulin therapy home + SSI. 6. HTN - hold BP meds if systolic <100. DVT ppx: eliquis [place] planning[place]. This patient was seen by Hang Gamble PA-C under the supervision of Regina Pitt - Last Filed: 11/15/19 16:34> Subjective: No SOB. Feeling well and upset that he is not allowed to go home. Explained about his renal function being worse. Vitals/I&O's: Vital Signs Temp Pulse Resp BP Pulse Ox 97.9 F 104 H 16 124/83 H 99 11/15/19 15:37 11/15/19 15:37 11/15/19 15:37 11/15/19 15:37 11/15/19 15:37 Oxygen Delivery Method Room Air Weight: 92.2 kg Body Mass Index (BMI) 30.9 Finger Stick Blood Glucose 105 Intake and Output for Last 24 Hours 11/13/19 11/14/19 11/15/19 23:59 23:59 23:59 Intake Total 1360 / 1360 1182 / 1182 400 / 400 Output Total 3300 / 3300 2850 / 2850 850 / 850 Balance -1940 / -1940 -1668 / -1668 -450 / -450 General: Alert, Oriented x3, Cooperative, Well developed, Well nourished HEENT: Atraumatic, PERRLA, EOMI, EAC Clear Neck: Supple, No JVD, Trachea Midline Lungs: Clear to auscultation, Normal air movement, No rhonchi, No wheeze, No rales, Diminished Cardiovascular: Normal S1, Normal S2, No murmurs, Irregular Rate, No rub noted, No Gallop, Tachycardic, - - irreg/irreg Abdomen: Bowel Sounds Present, Soft, Non Tender, Non-Distended, No Hepato-splenomegaly, Obese Extremities: No clubbing, No cyanosis, Capillary Refill Less than 3 Seconds, Edema Skin: No rashes, No breakdown Neurological: Cranial nerves II-XII grossly intact, Neuro grossly intact Psych/Mental Status: Appropriate, - - frustrated about not being able to go home, Alert and oriented to time, place, person, mood and affect Laboratory Results 11/14/19 16:47: POC Glucose 262 H 11/14/19 21:56: POC Glucose 316 H 11/15/19 05:51: Sodium 131 L, Potassium 4.2, Chloride 94 L, Carbon Dioxide 27.0, Anion Gap 10, BUN 65 H, Creatinine 3.35 H, Estim Creat Clear Calc 21.40, Est GFR (MDRD) Af Amer 24 L, Est GFR (MDRD) Non-Af 20 L, BUN/Creatinine Ratio 19.4, Glucose 162 H, Calcium 8.2 L 11/15/19 06:52: POC Glucose 167 H 11/15/19 11:18: POC Glucose 283 H Current Medications Acetaminophen (Tylenol) 650 mg PO Q6H PRN PRN PRN Reason: Pain Score 1-10/Temp > 100.7 F Amiodarone HCl (C[facility]) [facility] Last Admin: 11/15/19 08:12 Dose: 200 mg Documented by: Apixaban (Eliquis) 2.5 mg PO BID [facility] Last Admin: 11/15/19 10:50 Dose: 2.5 mg Documented by: Carvedilol (Coreg) [facility] Last Admin: 11/15/19 08:12 Dose: 25 mg Documented by: Clopidogrel Bisulfate (Plavix) 75 mg PO DAILY [facility] Last Admin: 11/15/19 10:50 Dose: 75 mg Documented by: Dextrose (D50w Syringe) 0 gm IV X1 PRN; Protocol PRN Reason: Hypoglycemia Glucagon () 1 mg IM .X1 PRN PRN Reason: Hypoglycemia Hydralazine HCl (Apresoline) 100 mg PO TID [facility] Last Admin: 11/15/19 13:22 Dose: 100 mg Documented by: Insulin Human Lispro (Humalog Kwikpen (Bkc)) 0 unit SC ACHS [facility]; Protocol Last Admin: 11/15/19 11:19 Dose: 4 units Documented by: Insulin Human NPH (Humulin N (Bkc)) 20 units SC QHS [facility] Last Admin: 11/14/19 21:57 Dose: 20 units Documented by: Insulin Human NPH (Humulin N (Bkc)) 24 units SC 0700 [facility] Last Admin: 11/15/19 08:13 Dose: 24 units Documented by: Isosorbide Mononitrate (Imdur) 120 mg PO BID [facility] Last Admin: 11/15/19 10:48 Dose: 120 mg Documented by: Loratadine (Claritin) 10 mg PO DAILY [facility] Last Admin: 11/15/19 10:48 Dose: 10 mg Documented by: Nitroglycerin (Nitrostat) 0.4 mg SUBLINGUAL Q5M PRN PRN Reason: CARDIAC/CHEST PAIN Ondansetron HCl (Zofran) 4 mg IV Q8H PRN PRN PRN Reason: NAUSEA/VOMITING Pantoprazole Sodium (Protonix) 40 mg PO BID [facility] Last Admin: 11/15/19 10:48 Dose: 40 mg Documented by: Pravastatin Sodium (Pravachol) 40 mg PO QHS [facility] Last Admin: 11/14/19 21:53 Dose: 40 mg Documented by: Ranolazine (Ranexa) 500 mg PO BID [facility] Last Admin: 11/15/19 10:48 Dose: 500 mg Documented by: Sodium Chloride () 10 - 40 ml IV UD PRN PRN Reason: SALINE FLUSH Last Admin: 11/14/19 06:20 Dose: 10 ml Documented by: STROKE Vital Signs/Narrative: Vital Signs Temp Pulse Resp BP BP Pulse Ox 11/15/19 15:37 97.9 F 104 H 16 124/83 H 99 11/15/19 13:48 102 H 11/15/19 13:22 104 H 11/15/19 13:21 104 H 138/89 H Assessment/Plan I agree with the above and the following is reflective of my own history and physical ASSESSMENT CP-resolved -no EKG changes or troponin elevation despite YOMI on CKD YOMI on CKD stage 3 2/2 suspected cardiorenal syndrome -baseline sCr is 1.7-2.5 range -sCr markedly worse -had some hypotension yesterday with addition of cardizem Hyponatremia -stable Acute on Chronic HFrEF -resovled -EF 35% has ICD PAF -rate uncontrolled DM-2 HTN GERD DDD Obesity CAD PLAN -Nephro consulted -hold aldactone and losartan -cardizem d/c -hold lasix -US recommend but pt is current refusing -FeUrea Pending -per Dr. Butler will send to [facility] for ablation and rate will likely never be controlled otherwise -ok for d/c from cardiac standpoint--> once able to improve renal fx will be able to d/c--> d/c tomorrow if renal fxn improved -BGT up but hold of on insulin changes with increase in sCr Inpatient E&M: [id number] [facility] H[facility] L3
--- NOTE | 2019-11-15 12:31 | PCM.CONS.R ---
Consultation - Renal 11/15/19 PCP/ Referring MD: Requesting physician: [] Primary care physician: Dr. Jennifer Spicer DO Reason for Consultation:: YOMI - History of Present Illness History of Present Illness: The patient is a 69 year old M with a past medical history of CKD and diabetes mellitus type 2 and CHF who presented with a chief complaint of shortness of breath for 1 day prior to admission. He also had dyspnea on exertion with mild activity unknown weight gain. He also noted some bilateral ankle edema for 1 day and felt wobbly on his feet. Also had some chest pain on the left side. He had previous admissions in October for CHF one time and one time for hypoglycemia. His serum creatinine increased to 3.3 after diuresis and after hypotension yesterday with a systolic in the 80s which prompted renal consult. The patient denies ever seeing a medical records manager or urologist. Denies history of any urologic surgery or nephrolithiasis or BPH. Baseline creatinine seems to be in the range of 1.7-2.5 with numerous episodes of YOMI with a creatinine in the 3 range per review of records. He denies dysuria hematuria using NSAIDs at home. No LUTS no nausea vomiting diarrhea abdominal pain. He has no complaints today. No orthopnea no shortness of breath. - Allergies Allergies: Allergies diltiazem Allergy (Verified 11/12/19 22:52) LOWER LEG SWELLING tamsulosin [From Flomax] Allergy (Verified 11/12/19 22:52) Shortness of breath/muscle weakness atorvastatin calcium [From Lipitor] Adverse Reaction (Verified 11/12/19 22:52) MUSCLE WEAKNESS - Current Medications Current Medications: Current Medications Acetaminophen (Tylenol) 650 mg PO Q6H PRN PRN PRN Reason: Pain Score 1-10/Temp > 100.7 F [facility] Last Admin: 11/15/19 08:12 Dose: 200 mg Documented by: Apixaban (Eliquis) 2.5 mg PO BID [facility] Last Admin: 11/15/19 10:50 Dose: 2.5 mg Documented by: [facility]ilol (Coreg) [facility] Last Admin: 11/15/19 08:12 Dose: 25 mg Documented by: Clopidogrel Bisulfate (Plavix) 75 mg PO DAILY [facility] Last Admin: 11/15/19 10:50 Dose: 75 mg Documented by: Dextrose (D50w Syringe) 0 gm IV X1 PRN; Protocol PRN Reason: Hypoglycemia Glucagon () 1 mg IM .X1 PRN PRN Reason: Hypoglycemia Hydralazine HCl (Apresoline) 100 mg PO TID [facility] Last Admin: 11/15/19 06:19 Dose: Not Given Documented by: Insulin Human Lispro (Humalog Kwikpen (Bk)) 0 unit SC ACHS [facility]; Protocol Last Admin: 11/15/19 11:19 Dose: 4 units Documented by: Insulin Human NPH (Humulin N (Bk)) 20 units SC QHS [facility] Last Admin: 11/14/19 21:57 Dose: 20 units Documented by: Insulin Human NPH (Humulin N (Bk)) 24 units SC 0700 [facility] Last Admin: 11/15/19 08:13 Dose: 24 units Documented by: Isosorbide Mononitrate (Imdur) 120 mg PO BID [facility] Last Admin: 11/15/19 10:48 Dose: 120 mg Documented by: Loratadine (Claritin) 10 mg PO DAILY [facility] Last Admin: 11/15/19 10:48 Dose: 10 mg Documented by: Losartan Potassium (Cozaar) 100 mg PO DAILY [facility] Last Admin: 11/15/19 10:48 Dose: 100 mg Documented by: Nitroglycerin (Nitrostat) 0.4 mg SUBLINGUAL Q5M PRN PRN Reason: CARDIAC/CHEST PAIN Ondansetron HCl (Zofran) 4 mg IV Q8H PRN PRN PRN Reason: NAUSEA/VOMITING Pantoprazole Sodium (Protonix) 40 mg PO BID [facility] Last Admin: 11/15/19 10:48 Dose: 40 mg Documented by: Pravastatin Sodium (Pravachol) 40 mg PO QHS [facility] Last Admin: 11/14/19 21:53 Dose: 40 mg Documented by: Ranolazine (Ranexa) 500 mg PO BID [facility] Last Admin: 11/15/19 10:48 Dose: 500 mg Documented by: Sodium Chloride () 10 - 40 ml IV UD PRN PRN Reason: SALINE FLUSH Last Admin: 11/14/19 06:20 Dose: 10 ml Documented by: - Past Medical History Past Medical History (Chronic Problems): Chronic Problems (Last Reviewed 11/13/19 @ 10:33 by Lisette Elizondo) Atrial fibrillation and flutter (Chronic) CAD in [place] artery (Chronic) Renal insufficiency (Chronic) Stage 3 chronic kidney disease (Chronic) Essential hypertension (Chronic) rn long term care current use of 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) Nonsustained ventricular tachycardia (Chronic) Chronic systolic CHF (congestive heart failure) (Chronic) Presence of implantable cardioverter-defibrillator (ICD) (Chronic) 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) History of coronary artery stent placement (Chronic 06/08/16) SRAA-RCA 06/15/2011, SARA-OM1 06/30/2011, SARA-LAD 08/20/2014, SARA-Prox- RCA 06/08/2016 Atherosclerosis of coronary artery of [place] heart without angina pectoris (Chronic) SARA-RCA 06/15/2011, SARA-OM1 06/30/2011, SARA-LAD 08/20/2014, SARA-Prox- RCA 06/08/2016 Paroxysmal atrial fibrillation (Chronic) Hyperlipidemia (Chronic) Type II diabetes mellitus (Chronic) STEMI (ST elevation myocardial infarction) (Chronic) Cardiomyopathy, ischemic (Chronic) - Past Surgical History Surgical History: herniorrhaphy, total knee arthroplasty - ACLS repair, - - s/p stents, AICD s/p cardioversion, s/p wrist and elbow surgery - Social History Smoking Status: Former smoker - Family History Maternal Family History: Family History (Last Reviewed 11/13/19 @ 10:33 by Lisette Elizondo) Brother Sudden cardiac History Items: Hypertension Paternal Family History: Family History (Last Reviewed 11/13/19 @ 10:33 by Lisette Elizondo) Brother Sudden cardiac History Items: Unknown Sibling Family History: Family History (Last Reviewed 11/13/19 @ 10:33 by Lisette Elizondo) Brother Sudden cardiac History Items: Heart Disease Review of Systems Eyes: Reports: - - Negative unless noted in HPI Patient Problems: Active and Suspected Problems (Last Reviewed 11/13/19 @ 10:33 by Lisette Elizondo) Acute kidney injury superimposed on chronic kidney disease (Acute) - Physical Exam Vitals/I&O's: Vital Signs Temp Pulse Resp BP Pulse Ox 97.1 F L 101 H 16 102/69 97 11/15/19 10:45 11/15/19 10:45 11/15/19 10:45 11/15/19 10:45 11/15/19 10:45 Oxygen Delivery Method Room Air Weight: 92.2 kg Body Mass Index (BMI) 30.9 Finger Stick Blood Glucose 105 Intake and Output for Last 24 Hours 11/13/19 11/14/19 11/15/19 23:59 23:59 23:59 Intake Total 1360 / 1360 1182 / 1182 400 / 400 Output Total 3300 / 3300 2850 / 2850 850 / 850 Balance -1940 / -1940 -1668 / -1668 -450 / -450 General: Alert, Cooperative HEENT: Atraumatic, Normocephalic Neck: Supple Lungs: Clear to auscultation Cardiovascular: Regular rate, Regular Rhythm, Normal S1, Normal S2 Abdomen: Bowel Sounds Present, Soft, Non Tender Extremities: No clubbing, No edema Laboratory Results 11/14/19 16:47: POC Glucose 262 H 11/14/19 21:56: POC Glucose 316 H 11/15/19 05:51: Sodium 131 L, Potassium 4.2, Chloride 94 L, Carbon Dioxide 27.0, Anion Gap 10, BUN 65 H, Creatinine 3.35 H, Estim Creat Clear Calc 21.40, Est GFR (MDRD) Af Amer 24 L, Est GFR (MDRD) Non-Af 20 L, BUN/Creatinine Ratio 19.4, Glucose 162 H, Calcium 8.2 L 11/15/19 06:52: POC Glucose 167 H 11/15/19 11:18: POC Glucose 283 H Current Medications Acetaminophen (Tylenol) 650 mg PO Q6H PRN PRN PRN Reason: Pain Score 1-10/Temp > 100.7 F Amiodarone [facility] ([facility]) [facility] Last Admin: 11/15/19 08:12 Dose: 200 mg Documented by: Apixaban (Eliquis) 2.5 mg PO BID [facility] Last Admin: 11/15/19 10:50 Dose: 2.5 mg Documented by: Carvedilol (Coreg) [facility] Last Admin: 11/15/19 08:12 Dose: 25 mg Documented by: Clopidogrel Bisulfate (Plavix) 75 mg PO DAILY [facility] Last Admin: 11/15/19 10:50 Dose: 75 mg Documented by: Dextrose (D50w Syringe) 0 gm IV X1 PRN; Protocol PRN Reason: Hypoglycemia Glucagon () 1 mg IM .X1 PRN PRN Reason: Hypoglycemia Hydralazine HCl (Apresoline) 100 mg PO TID [facility] Last Admin: 11/15/19 06:19 Dose: Not Given Documented by: Insulin Human Lispro (Humalog Kwikpen (Bkc)) 0 unit SC ACHS [facility]; Protocol Last Admin: 11/15/19 11:19 Dose: 4 units Documented by: Insulin Human NPH (Humulin N (Bkc)) 20 units SC QHS [facility] Last Admin: 11/14/19 21:57 Dose: 20 units Documented by: Insulin Human NPH (Humulin N (Bkc)) 24 units SC 0700 [facility] Last Admin: 11/15/19 08:13 Dose: 24 units Documented by: Isosorbide Mononitrate (Imdur) 120 mg PO BID [facility] Last Admin: 11/15/19 10:48 Dose: 120 mg Documented by: Loratadine (Claritin) 10 mg PO DAILY [facility] Last Admin: 11/15/19 10:48 Dose: 10 mg Documented by: Losartan Potassium (Cozaar) 100 mg PO DAILY [facility] Last Admin: 11/15/19 10:48 Dose: 100 mg Documented by: Nitroglycerin (Nitrostat) 0.4 mg SUBLINGUAL Q5M PRN PRN Reason: CARDIAC/CHEST PAIN Ondansetron HCl (Zofran) 4 mg IV Q8H PRN PRN PRN Reason: NAUSEA/VOMITING Pantoprazole Sodium (Protonix) 40 mg PO BID [facility] Last Admin: 11/15/19 10:48 Dose: 40 mg Documented by: Pravastatin Sodium (Pravachol) 40 mg PO QHS [facility] Last Admin: 11/14/19 21:53 Dose: 40 mg Documented by: Ranolazine (Ranexa) 500 mg PO BID [facility] Last Admin: 11/15/19 10:48 Dose: 500 mg Documented by: Sodium Chloride () 10 - 40 ml IV UD PRN PRN Reason: SALINE FLUSH Last Admin: 11/14/19 06:20 Dose: 10 ml Documented by: Assessment/Plan All Active Problems (Last Reviewed 11/13/19 @ 10:33 by Lisette Elizondo) Chest pain (Acute) Acute kidney injury superimposed on chronic kidney disease (Acute) Systolic CHF, acute on chronic (Acute) YOMI prerenal ATN with hypotension and diuresis 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 flutter Check renal ultrasound fractional excretion of urea. Hold diuretics. Hold blood pressure meds with parameters. Check UA. Fluid restriction. Hold spironolactone and losartan for now. Avoid hypotension keep MAP more than 65 Avoid nephrotoxins Further work-up per clinical course Above assessment and plan was discussed at length with the patient voiced understanding and agrees to proceed with the plan as outlined above. He was given the opportunity to ask questions and stated that those were answered to satisfaction. Thank you very much for allowing me to participate in the care of this patient. Please do not hesitate to call if you have any questions or concerns.
--- NOTE | 2019-11-15 12:43 | US_ITS ---
STUDY: RENAL ULTRASOUND - COMPLETE REASON FOR EXAM: Male, 69 years old. YOMI TECHNIQUE: Ultrasound evaluation of the kidneys was performed with real-time and static france-scale imaging. COMPARISON: None. FINDINGS: RIGHT KIDNEY: Normal location of the right kidney, which is normal in size. The right kidney measures 10.1 x 5.7 x 6.0 cm. There is a normal cortex of the right kidney. The renal cortex measures 2.0 cm. There is no right renal mass or cyst. There are no right renal calculi. There is no right hydronephrosis. DISTAL RIGHT URETER: There is non-visualization of the distal right ureter. There is no demonstrated right ureterovesical junction calculus. There is no demonstrated right ureteral jet. LEFT KIDNEY: Normal location of the left kidney, which is normal in size. The left kidney measures 11.5 x 5.7 x 6.2 cm. There is a normal cortex of the left kidney. The renal cortex measures 1.8 cm. There is no left renal mass or cyst. There are no left renal calculi. There is no left hydronephrosis. DISTAL LEFT URETER: There is non-visualization of the distal left ureter. There is no demonstrated left ureterovesical junction calculus. There is no demonstrated left ureteral jet. BLADDER: The distended urinary bladder has a volume of 334 ml. There is a normal wall thickness of the distended urinary bladder. There is no demonstrated mass within the urinary bladder. There are no demonstrated bladder calculi. US/Kidney and Bladder IMPRESSION: Normal ultrasound of the kidneys and urinary bladder. Electronically Signed: Gurvinder Alex MD at 19:53 EDT , Service support ,
[2019-11-15] MEDS: hydrALAZINE 50 MG Tablet 100 MG PO (13:22)
[2019-11-15 16:51] LABS: Bedside Glucose 112 mg/dL (70-110)
[2019-11-15 18:38] LABS: Bacteria 0 SEEN /hpf (None Seen); Mucous, Urine 0 SEEN /hpf (<or=2+); Red Blood Cells-Urine 0 SEEN /hpf (0-5); Squamous Epithelial Cells - UA 0 SEEN /hpf (0-5); White Blood Cells 0 SEEN /hpf (0-5)
[2019-11-15 18:50] LABS: Urine Sodium 46 mmol/L (Not Establ.)
[2019-11-15 18:56] LABS: Color, Urine Yellow (Yellow); Glucose, Dipstick Normal (Normal); Ketone-Dipstick Negative (Negative); Leukocyte Esterase-Dipstick Negative /ul (Negative); Nitrite-Dipstick Negative (Negative); Occult Blood-Urine Negative /ul (Negative); Protein-Dipstick Negative (Negative); Urine Bilirubin Dipstick Negative (Negative); Urine Clarity Clear (Clear); Urine Urobilinogen Normal (Normal); Urine pH 6.5 (5.0 - 8.0)
[2019-11-15 19:17] LABS: Urea Nitrogen, Urine 536 mg/dL (NO RANGE EST.)
[2019-11-15] MEDS: Insulin NPH Human 100 UNITS/ML PEN 20 UNITS SC (21:29)
[2019-11-15] MEDS: Pravastatin 40 MG Tablet PO (21:29)
[2019-11-15 21:41] LABS: Bedside Glucose 171 mg/dL (70-110)
[2019-11-16] VITALS (10 sets, daily range): BP systolic 111–124; BP diastolic 69–75; PULSE 82–111; RESP 16–17; TEMP 36.5–36.6; O2SAT 94–97
[2019-11-16] MEDS: hydrALAZINE 50 MG Tablet 100 MG PO ×2 (05:37→13:19)
[2019-11-16 06:04] LABS: Absolute Lymphocyte Count 0.63 X10^3/uL (0.83-4.51); Absolute Neutrophil Count 6.1 X10^3/uL (2.0-7.7); Basophil# 0.04 X10^3/uL; Basophil% 0.5 % (0-1); Eosinophil# 0.12 X10^3/uL; Eosinophils% 1.5 % (0-5); Hematocrit 40.1 % (40-54); Hemoglobin 12.4 g/dL (13.0-16.5); Lymphocyte # 0.63 X10^3/ul (4.0); Mean Corp Hgb Conc 30.9 g/dL (32-36); Mean Corpuscular Hgb 25.5 pg (27.0-32.0); Mean Corpuscular Volume 82.3 fL (80-94); Mean Platelet Vol. 9.2 fl (6.2-12.0); Monocyte# 0.86 X10^3/uL; NRBC Flagged by Analyzer 0 % (0-5); Neutrophil # 6.14 X10^3/uL (2.7-7.7); Neutrophil % 78.4 % (47-70); Platelet Count 274 K/mm3 (150-450); RBC Distribution Width CV 17.5 % (11.6-14.6); RBC Distribution Width SD 51.4 fl (35.1-43.9); Red Blood Count 4.87 M/mm3 (4.6-6.2); White Blood Count 7.8 K/mm3 (4.4-11.0)
[2019-11-16 06:31] LABS: Anion Gap 7 (5-15); BUN 64 mg/dL (7-18); BUN/Creat Ratio 22.3 RATIO (10-20); Calcium,Total 8.1 mg/dL (8.5-10.1); Chloride 97 mmol/L (98-107); Creatinine, Serum 2.87 mg/dL (0.70-1.30); EST Glomerular Filtration Rate 24 mL/min (>60); Est Glom Filt Rate - Afr Amer 28 mL/min (>60); Estimated Creatinine Clearance 24.98 ml/min; Glucose 126 mg/dL (74-106); Potassium 3.9 mmol/L (3.5-5.1); Sodium Level 132 mmol/L (136-145)
[2019-11-16 07:15] LABS: Bedside Glucose 152 mg/dL (70-110)
[2019-11-16] MEDS: Carvedilol 25 MG Tablet PO (08:11)
[2019-11-16] MEDS: Amiodarone 200 MG Tablet PO (08:11)
[2019-11-16] MEDS: Insulin NPH Human 100 UNITS/ML PEN 24 UNITS SC (08:11)
[2019-11-16] MEDS: Insulin Lispro 100 UNIT/ML INSULN.PEN SC ×2 (08:12→11:45)
--- NOTE | 2019-11-16 08:41 | PCM.PN.CARD ---
Subjectve: Patient seen and examined, doing quite well this morning. Pretty much back to baseline. Seen by renal yesterday for evaluation. Telemetry showed atrial flutter with rapid ventricular response in the 2-1 conduction. Objective: Vital Signs Temp Pulse Resp BP Pulse Ox 97.8 F 111 H 16 114/75 97 11/16/19 08:08 11/16/19 08:08 11/16/19 08:08 11/16/19 08:08 11/16/19 08:08 Oxygen Delivery Method Room Air Weight: 202 lb 9.6 oz Body Mass Index (BMI) 30.9 Finger Stick Blood Glucose 105 Intake and Output for Last 24 Hours 11/14/19 11/15/19 11/16/19 23:59 23:59 23:59 Intake Total 1182 / 1182 1400 / 1400 250 / 250 Output Total 2850 / 2850 1800 / 1800 350 / 350 Balance -1668 / -1668 -400 / -400 -100 / -100 General: Awake, Alert, Oriented x 3 HEENT: PERRL, EOMI, Sclera Non Icteric Neck: Supple, Good ROM, No Lymph Node Enlargement Lungs: Clear to auscultation Cardiovascular: Regular Rhythm, Normal S2, No Rubs, No Gallops Murmur Murmur: Grade 2/6, Holosystolic Vascular: No Carotid Bruits, Normal Femoral Pulses, Normal Radial Pulses, Normal Dorsalis Pedal Pulse, Normal Posterior Tibial Pulses Abdomen: Bowel Sounds Present, Soft, Non Tender, No HSM, No Organomegaly Extremities: No Cyanosis, No Clubbing, No edema Neurological: No Focal Motor or Sensory Deficit 11/15/19 18:30: Urine Color Yellow, Urine Clarity Clear, Urine pH 6.5, Ur Specific [place] 1.010, Urine Protein Negative, Urine Glucose (UA) Normal, Urine Ketones Negative, Urine Occult Blood Negative, Urine Nitrite Negative, Urine Bilirubin Negative, Urine Urobilinogen Normal, Ur Leukocyte Esterase Negative, Urine RBC 0 SEEN, Urine WBC 0 SEEN 11/16/19 05:44: WBC 7.8, RBC 4.87, Hgb 12.4 L, Hct 40.1, MCV 82.3, MCH 25.5 L, MCHC 30.9 L, Plt Count 274, MPV 9.2, Immature Gran % (Auto) 0.600, Neut % (Auto) 78.4 H, Lymph % (Auto) 8.0 L, [place] % (Auto) 11.0 H, Eos % (Auto) 1.5, Baso % (Auto) 0.5, Absolute Neuts (auto) 6.1, Nucleated RBC % 0 11/16/19 05:44: Sodium 132 L, Potassium 3.9, Chloride 97 L, Carbon Dioxide 28.0, Anion Gap 7, BUN 64 H, Creatinine 2.87 H, Est GFR (MDRD) Af Amer 28 L, Est GFR (MDRD) Non-Af 24 L, BUN/Creatinine Ratio 22.3 H, Glucose 126 H, Calcium 8.1 L Rhythm: EKG: ECHO: Stress Test: Cardiac Cath: PCI: CT Surgery: Holter monitor: EPS: PPM: CXR: Chest CT Scan: Medical Necessity - Tobacco Use Smoking Status: Former smoker Assessment/Plan 1. Congestive heart failure: Patient has biventricular congestive heart failure exacerbation, superimposed on chronic congestive heart failure with atrial flutter, coronary disease, chronic renal insufficiency. The patient has been diuresed fairly well, and his creatinine has decreased from yesterday after holding his diuretic. Appreciate renal consultation and guidance. His lower extremity edema has completely resolved. I recommend continuing him on his current medical regimen of Coreg, spironolactone, Lasix 80 mg p.o. twice daily and would recommend increasing his metolazone to 2.5 mg on Wednesday and in order to provide better diuresis throughout the week. 2. Atrial flutter: Patient has had several CHF exacerbations and several previous DC cardioversions which have been unsuccessful. At this point I would defer the patient to Dr. Morales at [facility] for possible atrial flutter ablation followed by possible upgrade of his AICD pacemaker if indicated. Also benefit from upgrading to a COMPOSITE TECHNICIAN device. I do not believe this needs to be done as an as an inpatient, but we can make arrangements for him to be set up as an outpatient. The meantime he will continue his Eliquis. 3. Coronary artery disease: The patient is asymptomatic from a cardiac standpoint I do not believe he would benefit from repeat catheterization. His most recent catheterization 2017 showed stable coronary artery disease. Continue baby aspirin. 4. Patient may be discharged home and follow-up with the heart group going forward. We will try to make arrangements for the patient to be seen by Dr. Morales as an outpatient for possible atrial flutter ablation plus/minus upgrade of his AICD. 5. Thank you very much for the opportunity to participate in the cardiac care of your patient. Inpatient E&M: 64946 Subs Hosp L2
[2019-11-16] MEDS: Ranolazine 500 MG Tablet PO (09:22)
[2019-11-16] MEDS: APIXABAN 2.5 MG TABLET PO (09:22)
[2019-11-16] MEDS: Pantoprazole Sodium 40 MG Tablet PO (09:22)
[2019-11-16] MEDS: Clopidogrel Bisulfate 75 MG Tablet PO (09:22)
[2019-11-16] MEDS: Loratadine 10 MG Tablet PO (09:22)
--- NOTE | 2019-11-16 10:42 | DCINST_ITS ---
- Discharge Diagnoses Current Active Problems: Current Active and Chronic Problems (Last Reviewed 11/13/19 @ 10:33 by Lisette Elizondo) Acute kidney injury superimposed on chronic kidney disease (Acute) You will use the following diet at home:: Fluid restricted (specify 2000 mls, 1500 mls) - 2000 Your food should be the consistency of: Regular Discharge Activity: Return to Normal Activity Allergies/Adverse Reactions: Allergies diltiazem Allergy (Verified 11/12/19 22:52) LOWER LEG SWELLING tamsulosin [From Flomax] Allergy (Verified 11/12/19 22:52) Shortness of breath/muscle weakness atorvastatin calcium [From Lipitor] Adverse Reaction (Verified 11/12/19 22:52) MUSCLE WEAKNESS Medications to take at Discharge Amiodarone HCl [Cordarone] 200 mg PO DAILY 03/13/19 Loratadine 10 mg PO DAILY 03/13/19 Pantoprazole Sodium [Protonix] 40 mg PO BID 03/13/19 Ranolazine [Ranolazine ER] 500 mg PO BID 03/13/19 Insulin NPH Human Isophane [Novolin N] 22 unit SQ BREAKFAST 04/20/19 Furosemide [Lasix] 80 mg PO BID 06/14/19 Insulin NPH Human Isophane [Humulin N] 20 unit SQ QHS 06/14/19 clopidogrel 75 mg tablet 75 mg PO DAILY #30 tab 06/23/19 hydralazine 100 mg tablet 100 mg PO TID #90 tab 06/23/19 isosorbide mononitrate 120 mg tablet,extended release 24 hr 120 mg PO BID #60 tab 06/23/19 apixaban 2.5 mg tablet 2.5 mg PO BID #60 tab 08/13/19 Nitroglycerin (INPATIENT USE) [Nitrostat] 0.4 mg SUBLINGUAL Q5M PRN #30 tab 08/15/19 carvedilol 25 mg tablet 25 mg PO BID #180 tab 09/14/19 pravastatin 40 mg tablet 40 mg PO QHS #90 tab 09/15/19 Aspirin [Aspirin, Baby] 81 mg PO DAILY@0800 10/20/19 Spironolactone 50 mg PO DAILY #30 tab 10/21/19 Metolazone 2.5 mg PO UD #0 11/16/19 Primary Care Physician: Jennifer Spicer DO [Primary Care Provider] - Please follow up with your Primary Care Physician in: [place] 5-7 DAYS Test Results: Test results from this visit will be discussed in further detail at your follow- up appointment, if applicable. Proposed Discharge Date: 11/16/19
--- NOTE | 2019-11-16 10:45 | DS.PCM_ITS ---
Discharge Date and Diagnosis - Problem List Patient Problems: Active and Suspected Problems (Last Reviewed 11/13/19 @ 10:33 by Lisette Elizondo) Acute kidney injury superimposed on chronic kidney disease (Acute) Date of Admission: 11/13/19 Date of Discharge: 11/16/19 - Primary Discharge Diagnosis Acute Problems: Active Problems (Last Reviewed 11/13/19 @ 10:33 by Lisette Elizondo) Acute kidney injury superimposed on chronic kidney disease (Acute) - Secondary Discharge Diagnosis Chronic Problems: Chronic Problems (Last Reviewed 11/13/19 @ 10:33 by Lisette Elizondo) Atrial fibrillation and flutter (Chronic) CAD in [place] artery (Chronic) Renal insufficiency (Chronic) Stage 3 chronic kidney disease (Chronic) Essential hypertension (Chronic) jail current use of 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) Nonsustained ventricular tachycardia (Chronic) Chronic systolic CHF (congestive heart failure) (Chronic) Presence of implantable cardioverter-defibrillator (ICD) (Chronic) 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) History of coronary artery stent placement (Chronic 06/08/16) SARA-RCA 06/15/2011, SARA-OM1 06/30/2011, SARA-LAD 08/20/2014, SARA-Prox- RCA 06/08/2016 Atherosclerosis of coronary artery of [place] heart without angina pectoris (Chronic) SARA-RCA 06/15/2011, SARA-OM1 06/30/2011, SARA-LAD 08/20/2014, SARA-Prox- RCA 06/08/2016 Paroxysmal atrial fibrillation (Chronic) Hyperlipidemia (Chronic) Type II diabetes mellitus (Chronic) STEMI (ST elevation myocardial infarction) (Chronic) Cardiomyopathy, ischemic (Chronic) Hospital Course and Treatment Operations: None Summary of Care Provided: The patient is a 69 year old M [] Patient Problems: Active and Suspected Problems (Last Reviewed 11/13/19 @ 10:33 by Lisette Elizondo) Acute kidney injury superimposed on chronic kidney disease (Acute) - Physical Exam Vitals/I&O's: Vital Signs Temp Pulse Resp BP Pulse Ox 97.8 F 111 H 16 115/71 97 11/16/19 08:08 11/16/19 08:08 11/16/19 08:08 11/16/19 09:19 11/16/19 08:08 Oxygen Delivery Method Room Air Weight: 91.898 kg Body Mass Index (BMI) 30.9 Finger Stick Blood Glucose 105 Intake and Output for Last 24 Hours 11/14/19 11/15/19 11/16/19 23:59 23:59 23:59 Intake Total 1182 / 1182 1400 / 1400 250 / 250 Output Total 2850 / 2850 1800 / 1800 350 / 350 Balance -1668 / -1668 -400 / -400 -100 / -100 Laboratory Results 11/15/19 11:18: POC Glucose 283 H 11/15/19 16:40: POC Glucose 112 H 11/15/19 18:30: Urine Urea Nitrogen 536 11/15/19 18:30: Urine Color Yellow, Urine Clarity Clear, Urine pH 6.5, Ur Specific [place] 1.010, Urine Protein Negative, Urine Glucose (UA) Normal, Urine Ketones Negative, Urine Occult Blood Negative, Urine Nitrite Negative, Urine Bilirubin Negative, Urine Urobilinogen Normal, Ur Leukocyte Esterase Negative, Urine RBC 0 SEEN, Urine WBC 0 SEEN, Ur Squamous Epith Cells 0 SEEN, Urine Bacteria 0 SEEN, Urine Mucus 0 SEEN 11/15/19 18:30: Ur Random Sodium 46 11/15/19 21:26: POC Glucose 171 H 11/16/19 05:44: WBC 7.8, RBC 4.87, Hgb 12.4 L, Hct 40.1, MCV 82.3, MCH 25.5 L, MCHC 30.9 L, RDW Std Deviation 51.4 H, RDW Coeff of [place] 17.5 H, Plt Count 274, MPV 9.2, Immature Gran % (Auto) 0.600, Neut % (Auto) 78.4 H, Lymph % (Auto) 8.0 L, [place] % (Auto) 11.0 H, Eos % (Auto) 1.5, Baso % (Auto) 0.5, Absolute Neuts (auto) 6.1, Absolute Lymphs (auto) 0.63 L, Nucleated RBC % 0 11/16/19 05:44: Sodium 132 L, Potassium 3.9, Chloride 97 L, Carbon Dioxide 28.0, Anion Gap 7, BUN 64 H, Creatinine 2.87 H, Estim Creat Clear Calc 24.98, Est GFR (MDRD) Af Amer 28 L, Est GFR (MDRD) Non-Af 24 L, BUN/Creatinine Ratio 22.3 H, Glucose 126 H, Calcium 8.1 L 08/13/20 07:05: POC Glucose 152 H Current Medications Acetaminophen (Tylenol) 650 mg PO Q6H PRN PRN PRN Reason: Pain Score 1-10/Temp > 100.7 F [facility] Admin: 11/16/19 08:11 Dose: 200 mg Documented by: Apixaban (Eliquis) 2.5 mg PO BID [facility] Last Admin: 11/16/19 09:22 Dose: 2.5 mg Documented by: [facility] Last Admin: 11/16/19 08:11 Dose: 25 mg Documented by: Clopidogrel Bisulfate (Plavix) 75 mg PO DAILY [facility] Last Admin: 11/16/19 09:22 Dose: 75 mg Documented by: Dextrose (D50w Syringe) 0 gm IV X1 PRN; Protocol PRN Reason: Hypoglycemia Glucagon () 1 mg IM .X1 PRN PRN Reason: Hypoglycemia Hydralazine HCl (Apresoline) 100 mg PO TID [facility] Last Admin: 11/16/19 05:37 Dose: 100 mg Documented by: Insulin Human Lispro (Humalog Kwikpen (Bkc)) 0 unit SC ACHS [facility]; Protocol Last Admin: 11/16/19 08:12 Dose: 1 units Documented by: Insulin Human NPH (Humulin N (Bkc)) 20 units SC QHS [facility] Last Admin: 11/15/19 21:29 Dose: 20 units Documented by: Insulin Human NPH (Humulin N (Bkc)) 24 units SC 0700 [facility] Last Admin: 11/16/19 08:11 Dose: 24 units Documented by: Isosorbide Mononitrate (Imdur) 120 mg PO BID [facility] Last Admin: 11/16/19 09:22 Dose: 120 mg Documented by: Loratadine (Claritin) 10 mg PO DAILY [facility] Last Admin: 11/16/19 09:22 Dose: 10 mg Documented by: Nitroglycerin (Nitrostat) 0.4 mg SUBLINGUAL Q5M PRN PRN Reason: CARDIAC/CHEST PAIN Ondansetron HCl (Zofran) 4 mg IV Q8H PRN PRN PRN Reason: NAUSEA/VOMITING Pantoprazole Sodium (Protonix) 40 mg PO BID [facility] Last Admin: 11/16/19 09:22 Dose: 40 mg Documented by: Pravastatin Sodium (Pravachol) 40 mg PO QHS [facility] Last Admin: 11/15/19 21:29 Dose: 40 mg Documented by: Ranolazine (Ranexa) 500 mg PO BID [facility] Last Admin: 11/16/19 09:22 Dose: 500 mg Documented by: Sodium Chloride () 10 - 40 ml IV UD PRN PRN Reason: SALINE FLUSH Last Admin: 11/14/19 06:20 Dose: 10 ml Documented by: Discharge Diet: 8 Cup Fluid Restriciton Discharge Activity: Return to Normal Activity Home Medications: Medications to take at Discharge Amiodarone HCl [Cordarone] 200 mg PO DAILY 03/13/19 Loratadine 10 mg PO DAILY 03/13/19 Pantoprazole Sodium [Protonix] 40 mg PO BID 03/13/19 Ranolazine [Ranolazine ER] 500 mg PO BID 03/13/19 Insulin NPH Human Isophane [Novolin N] 22 unit SQ BREAKFAST 04/20/19 Furosemide [Lasix] 80 mg PO BID 06/14/19 Insulin NPH Human Isophane [Humulin N] 20 unit SQ QHS 06/14/19 clopidogrel 75 mg tablet 75 mg PO DAILY #30 tab 06/23/19 hydralazine 100 mg tablet 100 mg PO TID #90 tab 06/23/19 isosorbide mononitrate 120 mg tablet,extended release 24 hr 120 mg PO BID #60 tab 06/23/19 apixaban 2.5 mg tablet 2.5 mg PO BID #60 tab 08/13/19 Nitroglycerin (INPATIENT USE) [Nitrostat] 0.4 mg SUBLINGUAL Q5M PRN #30 tab 08/15/19 carvedilol 25 mg tablet 25 mg PO BID #180 tab 09/14/19 pravastatin 40 mg tablet 40 mg PO QHS #90 tab 09/15/19 Aspirin [Aspirin, Baby] 81 mg PO DAILY@0800 10/20/19 Spironolactone 50 mg PO DAILY #30 tab 10/21/19 Metolazone 2.5 mg PO UD #0 11/16/19 Primary Care Physician: Jennifer Spicer DO [Primary Care Provider] - Please follow up with your Primary Care Physician in: [place] 5-7 DAYS Disposition: Home Minutes spent on discharge:: 35 Patient Condition:: Stable Medical Necessity - Tobacco Use Smoking Status: Former smoker Meaningful Use Info Meaningful Use Diagnoses (Choose all that apply): CHF - CHF AN/ARB ordered at discharge?: Yes Reason AN/ARB not ordered?: Worsening renal disease Documented LVEF (%): 35 Inpatient E&M: 03002 Disch Hosp
--- NOTE | 2019-11-16 10:53 | PCM.DC.SUM ---
Discharge Date and Diagnosis - Problem List Patient Problems: Active and Suspected Problems (Last Reviewed 11/13/19 @ 10:33 by Lisette Elizondo) Acute kidney injury superimposed on chronic kidney disease (Acute) Date of Admission: 11/13/19 Date of Discharge: 11/16/19 - Primary Discharge Diagnosis Acute Problems: Active Problems (Last Reviewed 11/13/19 @ 10:33 by Lisette Elizondo) Acute kidney injury superimposed on chronic kidney disease (Acute) - Secondary Discharge Diagnosis Chronic Problems: Chronic Problems (Last Reviewed 11/13/19 @ 10:33 by Lisette Elizondo) Atrial fibrillation and flutter (Chronic) CAD in [place] artery (Chronic) Renal insufficiency (Chronic) Stage 3 chronic kidney disease (Chronic) Essential hypertension (Chronic) senior living current use of 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) Nonsustained ventricular tachycardia (Chronic) Chronic systolic CHF (congestive heart failure) (Chronic) Presence of implantable cardioverter-defibrillator (ICD) (Chronic) 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) History of coronary artery stent placement (Chronic 06/08/16) SARA-RCA 06/15/2011, SARA-OM1 06/30/2011, SARA-LAD 08/20/2014, SARA-Prox- RCA 06/08/2016 Atherosclerosis of coronary artery of [place] heart without angina pectoris (Chronic) SARA-RCA 06/15/2011, SARA-OM1 06/30/2011, SARA-LAD 08/20/2014, SARA-Prox- RCA 06/08/2016 Paroxysmal atrial fibrillation (Chronic) Hyperlipidemia (Chronic) Type II diabetes mellitus (Chronic) STEMI (ST elevation myocardial infarction) (Chronic) Cardiomyopathy, ischemic (Chronic) Hospital Course and Treatment Operations: None Summary of Care Provided: The patient is a 69 year old M with chest pain and shortness of breath 1. Acute on chronic CHF with reduced ejection fraction ?Admitted to monitored bed managed with diuresis with consultation placed to cardiology 2. Chest pain ?Patient has history of artery disease apparently underwent left heart catheterization in 2018 which revealed stable coronary artery disease 3. Acute kidney injury ?Superimposed on chronic kidney disease stage III nephrology was consulted recommendations reviewed 4. Paroxysmal A. fib ?Rate controlled on systemic anticoagulation with Eliquis continued 5. Essential hypertension ?Patient blood pressure was running on the low side home meds were adjusted with discontinuation of losartan. Losartan was also discontinued in view of worsening kidney function 6. Diabetes mellitus type 2 ?Did continue with home regimen in addition to Accu-Cheks before meals and at bedtime with sliding scale coverage 7. DVT prophylaxis ?On Eliquis Patient Problems: Active and Suspected Problems (Last Reviewed 11/13/19 @ 10:33 by Lisette Elizondo) Acute kidney injury superimposed on chronic kidney disease (Acute) - Physical Exam Vitals/I&O's: Vital Signs Temp Pulse Resp BP Pulse Ox 97.8 F 111 H 16 115/71 97 11/16/19 08:08 11/16/19 08:08 11/16/19 08:08 11/16/19 09:19 11/16/19 08:08 Oxygen Delivery Method Room Air Weight: 91.898 kg Body Mass Index (BMI) 30.9 Finger Stick Blood Glucose 105 Intake and Output for Last 24 Hours 11/14/19 11/15/19 11/16/19 23:59 23:59 23:59 Intake Total 1182 / 1182 1400 / 1400 250 / 250 Output Total 2850 / 2850 1800 / 1800 350 / 350 Balance -1668 / -1668 -400 / -400 -100 / -100 HEENT: Atraumatic Neck: Supple Lungs: Diminished Neurological: Neuro grossly intact Laboratory Results 11/15/19 11:18: POC Glucose 283 H 11/15/19 16:40: POC Glucose 112 H 11/15/19 18:30: Urine Urea Nitrogen 536 11/15/19 18:30: Urine Color Yellow, Urine Clarity Clear, Urine pH 6.5, Ur Specific [place] 1.010, Urine Protein Negative, Urine Glucose (UA) Normal, Urine Ketones Negative, Urine Occult Blood Negative, Urine Nitrite Negative, Urine Bilirubin Negative, Urine Urobilinogen Normal, Ur Leukocyte Esterase Negative, Urine RBC 0 SEEN, Urine WBC 0 SEEN, Ur Squamous Epith Cells 0 SEEN, Urine Bacteria 0 SEEN, Urine Mucus 0 SEEN 11/15/19 18:30: Ur Random Sodium 46 11/15/19 21:26: POC Glucose 171 H 11/16/19 05:44: WBC 7.8, RBC 4.87, Hgb 12.4 L, Hct 40.1, MCV 82.3, MCH 25.5 L, MCHC 30.9 L, RDW Std Deviation 51.4 H, RDW Coeff of [place] 17.5 H, Plt Count 274, MPV 9.2, Immature Gran % (Auto) 0.600, Neut % (Auto) 78.4 H, Lymph % (Auto) 8.0 L, [place] % (Auto) 11.0 H, Eos % (Auto) 1.5, Baso % (Auto) 0.5, Absolute Neuts (auto) 6.1, Absolute Lymphs (auto) 0.63 L, Nucleated RBC % 0 11/16/19 05:44: Sodium 132 L, Potassium 3.9, Chloride 97 L, Carbon Dioxide 28.0, Anion Gap 7, BUN 64 H, Creatinine 2.87 H, Estim Creat Clear Calc 24.98, Est GFR (MDRD) Af Amer 28 L, Est GFR (MDRD) Non-Af 24 L, BUN/Creatinine Ratio 22.3 H, Glucose 126 H, Calcium 8.1 L 11/16/19 07:05: POC Glucose 152 H Current Medications Acetaminophen (Tylenol) 650 mg PO Q6H PRN PRN PRN Reason: Pain Score 1-10/Temp > 100.7 F Amiodarone [facility]) [facility] Last Admin: 11/16/19 08:11 Dose: 200 mg Documented by: Apixaban (Eliquis) 2.5 mg PO BID [facility] Last Admin: 11/16/19 09:22 Dose: 2.5 mg Documented by: Carvedilol (Coreg) [facility] Last Admin: 11/16/19 08:11 Dose: 25 mg Documented by: Clopidogrel Bisulfate (Plavix) 75 mg PO DAILY [facility] Last Admin: 11/16/19 09:22 Dose: 75 mg Documented by: Dextrose (D50w Syringe) 0 gm IV X1 PRN; Protocol PRN Reason: Hypoglycemia Glucagon () 1 mg IM .X1 PRN PRN Reason: Hypoglycemia Hydralazine HCl (Apresoline) 100 mg PO TID [facility] Last Admin: 11/16/19 05:37 Dose: 100 mg Documented by: Insulin Human Lispro (Humalog Kwikpen (Bkc)) 0 unit SC [facility]; Protocol Last Admin: 11/16/19 08:12 Dose: 1 units Documented by: Insulin Human NPH (Humulin N (Bkc)) 20 units SC [facility] Last Admin: 08/12/20 21:29 Dose: 20 units Documented by: Insulin Human NPH (Humulin N (Bkc)) 24 units SC 0700 [facility] Last Admin: 11/16/19 08:11 Dose: 24 units Documented by: Isosorbide Mononitrate (Imdur) 120 mg PO BID [facility] Last Admin: 11/16/19 09:22 Dose: 120 mg Documented by: Loratadine (Claritin) 10 mg PO DAILY [facility] Last Admin: 11/16/19 09:22 Dose: 10 mg Documented by: Nitroglycerin (Nitrostat) 0.4 mg SUBLINGUAL Q5M PRN PRN Reason: CARDIAC/CHEST PAIN Ondansetron HCl (Zofran) 4 mg IV Q8H PRN PRN PRN Reason: NAUSEA/VOMITING Pantoprazole Sodium (Protonix) 40 mg PO BID [facility] Last Admin: 11/16/19 09:22 Dose: 40 mg Documented by: Pravastatin Sodium (Pravachol) 40 mg PO QHS [facility] Last Admin: 11/15/19 21:29 Dose: 40 mg Documented by: Ranolazine (Ranexa) 500 mg PO BID [facility] Last Admin: 11/16/19 09:22 Dose: 500 mg Documented by: Sodium Chloride () 10 - 40 ml IV UD PRN PRN Reason: SALINE FLUSH Last Admin: 11/14/19 06:20 Dose: 10 ml Documented by: Discharge Diet: 8 Cup Fluid Restriciton Discharge Activity: Return to Normal Activity Home Medications: Medications to take at Discharge Amiodarone HCl [Cordarone] 200 mg PO DAILY 03/13/19 Loratadine 10 mg PO DAILY 03/13/19 Pantoprazole Sodium [Protonix] 40 mg PO BID 03/13/19 Ranolazine [Ranolazine ER] 500 mg PO BID 03/13/19 Insulin NPH Human Isophane [Novolin N] 22 unit SQ BREAKFAST 04/20/19 Furosemide [Lasix] 80 mg PO BID 06/14/19 Insulin NPH Human Isophane [Humulin N] 20 unit SQ QHS 06/14/19 clopidogrel 75 mg tablet 75 mg PO DAILY #30 tab 06/23/19 hydralazine 100 mg tablet 100 mg PO TID #90 tab 06/23/19 isosorbide mononitrate 120 mg tablet,extended release 24 hr 120 mg PO BID #60 tab 06/23/19 apixaban 2.5 mg tablet 2.5 mg PO BID #60 tab 08/13/19 Nitroglycerin (INPATIENT USE) [Nitrostat] 0.4 mg SUBLINGUAL Q5M PRN #30 tab 08/15/19 carvedilol 25 mg tablet 25 mg PO BID #180 tab 09/14/19 pravastatin 40 mg tablet 40 mg PO QHS #90 tab 09/15/19 Aspirin [Aspirin, Baby] 81 mg PO DAILY@0800 10/20/19 Spironolactone 50 mg PO DAILY #30 tab 10/21/19 Metolazone 2.5 mg PO UD #0 11/16/19 Primary Care Physician: Jennifer Spicer DO [Primary Care Provider] - Please follow up with your Primary Care Physician in: [place] 5-7 DAYS Please Follow Up With: Jennifer Spicer DO Disposition: Home Minutes spent on discharge:: 36 Patient Condition:: Good Medical Necessity - Tobacco Use Smoking Status: Former smoker Meaningful Use Info Meaningful Use Diagnoses (Choose all that apply): CHF - CHF AN/ARB ordered at discharge?: No Reason AN/ARB not ordered?: Worsening renal disease Documented LVEF (%): 35 Inpatient E&M: 17284 Disch Hosp
--- NOTE | 2019-11-16 11:02 | CASEMGMT ---
This RN CM to room to discuss discharge plan with pt at this time. Pt states no need for any further therapy or HHC at this time. Pt states 'is working on' getting OP therapy set up and was given script previously. Pt states no further questions/concerns/needs at this time. Pt to aware to ask for CM if any further questions/concerns/needs arise, voices understanding. SStaten RN CM
[2019-11-16 11:16] LABS: Bedside Glucose 386 mg/dL (70-110)
--- NOTE | 2019-11-17 16:14 | CASEMGMT ---
DEVYN HUTCHINS Discharge Follow-Up Phone Call. Lace: 15 Strata: 4 Discharge Date: 11/16/19 Adm Dx: Acute Exac CHF Call to pt to inquire about how has been doing since being discharged from the hospital. Pt states I'm doing fine. He denies having any questions about the discharge instructions, medications, or f/u appts. He denies needs. DEVYN HUTCHINS thanked pt for choosing [facility]. Joanna ARRINGTON RN, CM
== END 2019-11-16 15:20 | disposition home or self-care (01) | DRG 291 ==
LOC: ED 23:00 → PCU 11-13 07:19
PROVIDERS: Internal Medicine; Physician Assistant; Admitting Provider Hospitalist; Emergency Provider Emergency Medicine; PCP Family Medicine; Referring Provider Hospitalist; Visit Provider Internal Medicine
DX: I13.0 Hypertensive heart and chronic kidney disease with heart failure and stage 1 through stage 4 chronic kidney disease, or unspecified chronic kidney disease (principal); N17.0 Acute kidney failure with tubular necrosis; E87.1 Hypo-osmolality and hyponatremia; I48.92 Unspecified atrial flutter; I47.2 Ventricular tachycardia; I50.82 Biventricular heart failure; E11.22 Type 2 diabetes mellitus with diabetic chronic kidney disease; N18.3 Chronic kidney disease, stage 3 (moderate); I27.21 Secondary pulmonary arterial hypertension; I48.0 Paroxysmal atrial fibrillation; I25.10 Atherosclerotic heart disease of native coronary artery without angina pectoris; I25.2 Old myocardial infarction; Z95.5 Presence of coronary angioplasty implant and graft; Z87.891 Personal history of nicotine dependence; Z79.01 Long term (current) use of 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s; Z79.02 Long term (current) use of antithrombotics/antiplatelets; Z79.4 Long term (current) use of insulin; Z79.82 Long term (current) use of aspirin; E66.9 Obesity, unspecified; Z68.30 Body mass index [BMI] 30.0-30.9, adult; K21.9 Gastro-esophageal reflux disease without esophagitis; I25.5 Ischemic cardiomyopathy; I45.10 Unspecified right bundle-branch block; E11.65 Type 2 diabetes mellitus with hyperglycemia; Z82.49 Family history of ischemic heart disease and other diseases of the circulatory system; Z79.899 Other long term (current) drug therapy; Z95.810 Presence of automatic (implantable) cardiac defibrillator; E78.5 Hyperlipidemia, unspecified; I51.3 Intracardiac thrombosis, not elsewhere classified
CPT/HCPCS: 36415; 71045; 76770; 80048; 81001; 82306; 82607; 82962; 83735; 83880; 84300; 84484; 84540; 85025; 93005; 94640; 97110; 97162; 97166; 97530; 99283; A4216; J1940

== ENCOUNTER → 2019-11-27 11:51 | Outpatient (CLI) | payer MEDICARE, SELFPAY ==
[2016-06-12 14:02] VITALS: BMI 29.7
[2019-11-13 10:33] VITALS: BMI 30.9
[2019-11-27 15:42] LABS: Absolute Lymphocyte Count 0.64 X10^3/uL (0.83-4.51); Absolute Neutrophil Count 8.5 X10^3/uL (2.0-7.7); Basophil# 0.07 X10^3/uL; Basophil% 0.7 % (0-1); Eosinophil# 0.14 X10^3/uL; Eosinophils% 1.3 % (0-5); Hematocrit 49.2 % (40-54); Hemoglobin 14.9 g/dL (13.0-16.5); Lymphocyte # 0.64 X10^3/ul (4.0); Mean Corp Hgb Conc 30.3 g/dL (32-36); Mean Corpuscular Hgb 24.9 pg (27.0-32.0); Mean Corpuscular Volume 82.1 fL (80-94); Mean Platelet Vol. 9.5 fl (6.2-12.0); Monocyte% 10.4 % (0-10); NRBC Flagged by Analyzer 0 % (0-5); Neutrophil # 8.54 X10^3/uL (2.7-7.7); Neutrophil % 80.6 % (47-70); Platelet Count 339 K/mm3 (150-450); RBC Distribution Width CV 18.6 % (11.6-14.6); RBC Distribution Width SD 51.5 fl (35.1-43.9); Red Blood Count 5.99 M/mm3 (4.6-6.2); White Blood Count 10.6 K/mm3 (4.4-11.0)
[2019-11-27 15:55] LABS: ALB/GLOB Ratio 0.8 RATIO (0.9-2.4); AST(SGOT) 43 U/L (15-37); Alanine Aminotransfer ALT/SGPT 66 U/L (16-61); Albumin, Serum 3.9 g/dL (3.2-5.0); Alkaline Phosphatase 96 U/L (45-117); Anion Gap 7 (5-15); BUN 48 mg/dL (7-18); BUN/Creat Ratio 18.3 RATIO (10-20); Calcium,Total 8.5 mg/dL (8.5-10.1); Chloride 94 mmol/L (98-107); Creatinine, Serum 2.62 mg/dL (0.70-1.30); EST Glomerular Filtration Rate 26 mL/min (>60); Est Glom Filt Rate - Afr Amer 32 mL/min (>60); Globulin 4.6 g/dL (2.2-4.2); Glucose 303 mg/dL (74-106); Potassium 4.4 mmol/L (3.5-5.1); Protein, Total 8.5 g/dL (6.4-8.2); Sodium Level 130 mmol/L (136-145)
== END ==
PROVIDERS: PCP Family Medicine; Visit Provider Family Medicine
DX: I50.9 Heart failure, unspecified (principal); N18.4 Chronic kidney disease, stage 4 (severe)
CPT/HCPCS: 36415; 80053; 85025

== ENCOUNTER 2019-11-30 18:45 | Emergency (ER) | payer MEDICARE, SELFPAY ==
[2016-06-12 14:02] VITALS: BMI 29.7
[2019-11-13 10:33] VITALS: BMI 30.9
[2019-11-30 18:46] VITALS: BP 150/94; PULSE 98; RESP 16; TEMP 36.6; BMI 28.8
--- NOTE | 2019-11-30 18:59 | RAD_ITS ---
STUDY: X-RAY - LEFT WRIST REASON FOR EXAM: Male, 69 years old. PT FELL AND INJURED LEFT HAND THUMB YESTERDAY, PAIN IN THUMB, INTO WRIST TECHNIQUE: 3 view(s) of the wrist were obtained. COMPARISON: None. FINDINGS: No acute fracture, dislocation or osseous destruction. No significant joint space narrowing. No significant productive changes. No significant soft tissue swelling. IMPRESSION: Normal x-ray examination of the wrist. Electronically Signed: Froilan Martinez, at 20:46 EDT Tel , Service support , RAD/Wrist min 3 Views
--- NOTE | 2019-11-30 19:00 | ED.VISSUMM ---
- ER Visit Summary Date of Service: 11/30/19 Chief Complaint: Fall History of Present Illness: The patient is a [address] Baxter and Dr. Butler. Ports that last night he was walking down a grassy hill and slipped on a wet spot. He fell and injured his left hand. He denies blow to the head or loss of consciousness. He is on Eliquis. He denies headache. No neck or back pain. No shoulder, right wrist, or hip pain. Patient reports that he has pain in his left hand that radiates up into his left wrist. Is 10 of 10 severity. He describes it as sharp. Is worsened by movement and relieved by rest. He denies any paresthesias. Physical Examination: Vitals: Stable. Afebrile. Neck: No vertebral tenderness. Full ROM without difficulty. Cleared by NEXUS criteria. Back: No vertebral tenderness. General: A&O x 3. NAD. Cardiovascular exam: Irregularly irregular rhythm with no murmur. Respiratory exam: Chest nontender. No crepitus. Clear to auscultation bilaterally. No wheezes or stridor. Abdominal exam: Soft, nontender, nondistended, normal bowel sounds. No pain in RUQ or LUQ specifically. No peritoneal signs. Extremity: Soft tissue swelling and moderate tenderness palpation over his left thumb. He has mild tenderness palpation over the distal radius. He is neuro vas intact distal to this. There is no subungual hematoma. Test Results: Left wrist and hand x-ray shows degenerative changes. Emergency Department Course and Treatment: Patient refused a CT of the head. He was given fentanyl IM and Zofran p.o. He is resting more comfortably. He was placed in a Velcro thumb spica splint. Treatment Plan: Patient will be discharged with prescriptions for 12 Percocet. Instructed to follow-up with his primary care physician 1 week if not improving. Return to the emergency department for any worsening symptoms. Disposition: To home in improved and stable condition. Impression: 1. Mechanical fall. 2. Left thumb swelling. 3. Left wrist sprain. 4. Coagulopathy on Eliquis. This note was generated with [employer] software. It may contain incorrect words, spelling, and punctuation that were not noted in review of the chart prior to signing ED Disposition - Plan for ED Patient: Instructions: ED Sprain Finger Prescriptions: Docusate Sodium [Colace] 100 mg PO DAILY #20 capsule Oxycodone HCl/Acetaminophen [Percocet 5/325] 1 tablet PO Q6H PRN PRN 3 Days #12 tablet PRN Reason: Pain Ondansetron [Zofran Odt] 4 mg PO Q8H PRN PRN #10 tablet PRN Reason: Nausea Referrals: Jennifer Spicer DO [Primary Care Provider] - 1 Week if not improving
--- NOTE | 2019-11-30 19:05 | RAD_ITS ---
STUDY: X-RAY - LEFT HAND REASON FOR EXAM: Male, 69 years old. PT FELL AND INJURED LEFT HAND THUMB YESTERDAY, PAIN IN THUMB, INTO WRIST TECHNIQUE: 3 view(s) of the hand. COMPARISON: None. FINDINGS: No acute fracture, dislocation or osseous destruction. Degenerative changes are noted most prominently at the first DIP joint as well as at the third PIP joint. No significant soft tissue swelling. IMPRESSION: Degenerative changes without acute fracture or dislocation identified. Electronically Signed: Froilan Martinez, at 20:42 EDT Tel , Service support , RAD/Hand Min 3 Views
[2019-11-30] MEDS: Ondansetron ODT 4 MG Tablet PO (19:29)
[2019-11-30] MEDS: fentaNYL 100 MCG/2 ML Ampul 50 MCG IM (19:29)
== END 2019-11-30 20:43 | disposition home or self-care (01) ==
LOC: ED 19:26
PROVIDERS: Emergency Provider Emergency Medicine; PCP Family Medicine
DX: S63.502A Unspecified sprain of left wrist, initial encounter (principal); W17.81XA Fall down embankment (hill), initial encounter; Y93.01 Activity, walking, marching and hiking; Y92.828 Other wilderness area as the place of occurrence of the external cause; M79.89 Other specified soft tissue disorders; D68.9 Coagulation defect, unspecified; T45.515A Adverse effect of 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s, initial encounter; I25.10 Atherosclerotic heart disease of native coronary artery without angina pectoris; I13.0 Hypertensive heart and chronic kidney disease with heart failure and stage 1 through stage 4 chronic kidney disease, or unspecified chronic kidney disease; N18.9 Chronic kidney disease, unspecified; I50.9 Heart failure, unspecified; E11.22 Type 2 diabetes mellitus with diabetic chronic kidney disease; I48.91 Unspecified atrial fibrillation; I48.92 Unspecified atrial flutter; I27.20 Pulmonary hypertension, unspecified; Z79.01 Long term (current) use of 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s; Z79.02 Long term (current) use of antithrombotics/antiplatelets; Z79.82 Long term (current) use of aspirin; Z79.4 Long term (current) use of insulin; Z79.899 Other long term (current) drug therapy
CPT/HCPCS: 73110; 73130; 96372; 99283

== ENCOUNTER → 2019-12-07 09:39 | Outpatient (CLI) | payer MEDICARE, SELFPAY ==
[2016-06-12 14:02] VITALS: BMI 29.7
[2019-11-13 10:33] VITALS: BMI 30.9
[2019-11-30 18:46] VITALS: BMI 28.8
[2019-12-07 12:40] LABS: ALB/GLOB Ratio 0.8 RATIO (0.9-2.4); AST(SGOT) 35 U/L (15-37); Alanine Aminotransfer ALT/SGPT 56 U/L (16-61); Albumin, Serum 3.9 g/dL (3.2-5.0); Alkaline Phosphatase 120 U/L (45-117); Anion Gap 6 (5-15); BUN 51 mg/dL (7-18); BUN/Creat Ratio 17.8 RATIO (10-20); Calcium,Total 8.9 mg/dL (8.5-10.1); Chloride 92 mmol/L (98-107); Creatinine, Serum 2.86 mg/dL (0.70-1.30); EST Glomerular Filtration Rate 24 mL/min (>60); Est Glom Filt Rate - Afr Amer 29 mL/min (>60); Globulin 4.6 g/dL (2.2-4.2); Glucose 220 mg/dL (74-106); Potassium 4.3 mmol/L (3.5-5.1); Protein, Total 8.5 g/dL (6.4-8.2); Sodium Level 129 mmol/L (136-145)
[2019-12-07 12:50] LABS: Absolute Lymphocyte Count 0.65 X10^3/uL (0.83-4.51); Absolute Neutrophil Count 8.9 X10^3/uL (2.0-7.7); Basophil% 0.9 % (0-1); Eosinophil# 0.15 X10^3/uL; Eosinophils% 1.3 % (0-5); Hematocrit 49.9 % (40-54); Hemoglobin 15.3 g/dL (13.0-16.5); Lymphocyte # 0.65 X10^3/ul (4.0); Lymphocyte % 5.8 % (19-41); Mean Corp Hgb Conc 30.7 g/dL (32-36); Mean Corpuscular Hgb 24.8 pg (27.0-32.0); Mean Corpuscular Volume 80.9 fL (80-94); Mean Platelet Vol. 9.8 fl (6.2-12.0); Monocyte# 1.23 X10^3/uL; NRBC Flagged by Analyzer 0 % (0-5); Neutrophil # 8.88 X10^3/uL (2.7-7.7); Neutrophil % 79.5 % (47-70); Platelet Count 296 K/mm3 (150-450); RBC Distribution Width CV 18.5 % (11.6-14.6); RBC Distribution Width SD 50.1 fl (35.1-43.9); Red Blood Count 6.17 M/mm3 (4.6-6.2); White Blood Count 11.2 K/mm3 (4.4-11.0)
== END ==
PROVIDERS: PCP Family Medicine; Visit Provider Family Medicine
DX: I50.9 Heart failure, unspecified (principal); N18.4 Chronic kidney disease, stage 4 (severe)
CPT/HCPCS: 36415; 80053; 85025

== ENCOUNTER 2020-01-05 20:02 | Emergency (ER) | payer MEDICARE, SELFPAY ==
[2016-06-12 14:02] VITALS: BMI 29.7
[2020-01-05 20:03] VITALS: BP 155/109; PULSE 103; RESP 18; TEMP 36; O2SAT 98; BMI 28.0
--- NOTE | 2020-01-05 21:05 | EKG12_ITS ---
Test Reason : HYPOTENSION Blood Pressure : / mmHG Vent. Rate : 118 BPM Atrial Rate : 117 BPM P-R Int : 000 ms QRS Dur : 180 ms QT Int : 474 ms P-R-T Axes : 000 -87 051 degrees QTc Int : 664 ms Sinus tachycardia Left axis deviation Right bundle branch block Inferior infarct , age undetermined Anterolateral infarct , age undetermined Abnormal ECG Confirmed by BELKIS METZ, JUANJOSE ([id number]), editor continuity and script LISBET HAWK ([id number]) on 01/10/2020 9:53:43 AM Referred By: COLTON/CASSIE Confirmed By:JUANJOSE TAMAYO MD
--- NOTE | 2020-01-05 21:06 | ED.VISSUMM ---
- ER Visit Summary Date of Service: 01/05/20 Chief Complaint: Labile blood pressures being both elevated and hypotensive History of Present Illness: The patient is a 69 M history of hypertension, CAD with MT, 6 cardiac stents, 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 Eliquis and Plavix, history of insulin-dependent diabetes, A. fib and history of pacer defibrillator. For the last 2 weeks the patient's had issues with his blood pressure. He used to see Dr. Blayne Butler of cardiology. He is now seeing Dr. Ismael Paul. They have been adjusting his medications over the last several weeks because initially he was having low blood pressure. Now he has episodes of both low and high blood pressure. When his pressure is low he has issues of being lightheaded and dizzy and has had several falls. Denies hitting his head on any of the falls. No headache. Physical Examination: Older male initial blood pressure 155/109. Pulse ox 98% on room air no signs hypoxia. No fever. H EENT exam unremarkable. Atraumatic. No signs of trauma to his face or scalp nontender. Neck nontender. Lungs clear to auscultation. Heart regular rhythm rate about 95 no murmur. Abdomen soft nontender normal bowel sounds no peritoneal signs. Patient is moving all 4 extremities. Nontender. No edema. Back nontender. Neurologically is awake and alert. Answering questions and following commands. NIH score of 0. Bilateral drug and alcohol treatment specialist strength. Bilateral dorsi and plantar flexion intact. Fingertip to nose within normal limits. He has no focal neurological findings. Test Results: CBC shows a white count of 7. Hemoglobin 14. Chemistry shows sodium 128. Gap is 6. Glucose elevated at 452 BUN of 58 creatinine 3.19 his last creatinine was 2.86. He has a history of chronic renal insufficiency. EKG shows A. fib /flutter at 118. Similar to multiple prior EKGs. He has had prior right bundle branch block and old inferior and anterolateral MIs. No change from prior. Orthostatic vital signs were done which were unremarkable. Emergency Department Course and Treatment: Older male with transient hypo-and hypertension. History of hypertension with recent med changes due to him having episodes of low blood pressure. Screening labs will be obtained and EKG. Skin unremarkable exam at this time and currently his blood pressure is 155/109 on initial presentation tonight. Patient is doing well on repeat exam at 22:25 PM. Went over all test results with he and his family. I got him up and ambulate him he walks without any difficulty. He is comfortable being discharged home. He will be given insulin here prior to discharge. He is to check his blood sugar at home tonight and tomorrow. He is in a check his blood pressure 2 or 3 times each day[address] Currently Dr. Paul had him half his carvedilol to 12 and half milligrams twice a day. He will hold it if his pressures running low. He is in a follow-up with his primary care physician next week to have his sodium rechecked and slowly trending down and is currently 128 tonight some of that is secondary to his hyperglycemia. He knows return if worse. Treatment Plan: Log his blood pressures twice daily. 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 Recheck his sodium level next week. Disposition: Discharge Impression: Transient hypotension History of hypertension History of CAD and MT History of A. fib on anticoagulation Eliquis and Plavix History of pacemaker defibrillator [place] Hyperglycemia history of diabetes Acute on chronic renal insufficiency Acute on chronic hyponatremia. This note was generated with [employer] dictation software. It may contain incorrect words, spelling, and punctuation that were not noted in review of the chart prior to signing ED Disposition - Plan for ED Patient: Referrals: Jennifer Spicer DO [Primary Care Provider] -
[2020-01-05 21:07] VITALS: BP 144/94; BP 148/107; BP 160/102; PULSE 113; PULSE 116; PULSE 120
[2020-01-05 21:11] LABS: Absolute Lymphocyte Count 0.83 X10^3/uL (0.83-4.51); Absolute Neutrophil Count 5.8 X10^3/uL (2.0-7.7); Basophil# 0.07 X10^3/uL; Basophil% 0.9 % (0-1); Eosinophil# 0.13 X10^3/uL; Eosinophils% 1.6 % (0-5); Hematocrit 47.1 % (40-54); Hemoglobin 14.8 g/dL (13.0-16.5); Lymphocyte # 0.83 X10^3/ul (4.0); Lymphocyte % 10.5 % (19-41); Mean Corp Hgb Conc 31.4 g/dL (32-36); Mean Corpuscular Hgb 25.4 pg (27.0-32.0); Mean Corpuscular Volume 80.8 fL (80-94); Mean Platelet Vol. 9.8 fl (6.2-12.0); Monocyte% 12.6 % (0-10); NRBC Flagged by Analyzer 0 % (0-5); Neutrophil # 5.75 X10^3/uL (2.7-7.7); Neutrophil % 72.4 % (47-70); Platelet Count 243 K/mm3 (150-450); RBC Distribution Width CV 18.7 % (11.6-14.6); RBC Distribution Width SD 50.7 fl (35.1-43.9); Red Blood Count 5.83 M/mm3 (4.6-6.2); White Blood Count 7.9 K/mm3 (4.4-11.0)
[2020-01-05 21:51] LABS: BUN 58 mg/dL (7-18); BUN/Creat Ratio 18.2 RATIO (10-20); Calcium,Total 8.3 mg/dL (8.5-10.1); Chloride 90 mmol/L (98-107); Creatinine, Serum 3.19 mg/dL (0.70-1.30); EST Glomerular Filtration Rate 21 mL/min (>60); Est Glom Filt Rate - Afr Amer 25 mL/min (>60); Estimated Creatinine Clearance 22.47 ml/min; Glucose 452 mg/dL (74-106); Sodium Level 128 mmol/L (136-145)
[2020-01-05 21:52] LABS: Anion Gap 6 (5-15)
--- NOTE | 2020-01-05 22:32 | ED.DEP ---
ED Disposition - Plan for ED Patient: Disposition: Home or Assisted Living Instructions: ED Low Blood Pressure All Causes, ED Hyponatremia, Hyperglycemia (High Blood Sugar), ED Diabetic Hyperglycemia Referrals: Jennifer Spicer DO [Primary Care Provider] - 3-5 Days Ismael Paul MD [STAFF PHYSICIAN] - 3-5 Days if not improving Additional Instructions: Recheck your blood sugar tonight prior to going to bed. Take your blood pressure medication as instructed by Dr. Paul. If your blood pressure is running low at or below a systolic blood pressure of 125 hold your blood pressure medication. Watch her blood sugars closely. Take and log your blood pressures 2-3 times a day and follow-up with for a new primary care physician. Your blood sugar tonight was elevated at 452. Watch it closely next several days. Take your insulin as prescribed. Your sodium was running low tonight it was 128. You have been low lately. You need to have your sodium level rechecked next week at your primary care physician's office.
[2020-01-05] MEDS: Insulin NPH Human 100 UNITS/ML PEN 22 UNITS SC (22:48)
[2020-01-05 22:49] VITALS: BP 125/81; PULSE 110; RESP 16; O2SAT 98
== END 2020-01-05 22:45 | disposition home or self-care (01) ==
PROVIDERS: Emergency Provider Emergency Medicine; PCP Family Medicine
DX: I95.9 Hypotension, unspecified (principal); I25.10 Atherosclerotic heart disease of native coronary artery without angina pectoris; I12.9 Hypertensive chronic kidney disease with stage 1 through stage 4 chronic kidney disease, or unspecified chronic kidney disease; I48.91 Unspecified atrial fibrillation; N18.9 Chronic kidney disease, unspecified; Z95.5 Presence of coronary angioplasty implant and graft; Z95.0 Presence of cardiac pacemaker; Z79.4 Long term (current) use of insulin; Z79.02 Long term (current) use of antithrombotics/antiplatelets; Z79.01 Long term (current) use of 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s
CPT/HCPCS: 80048; 85025; 93005; 99285; A4216

== ENCOUNTER 2020-01-22 21:32 | Inpatient (IN) | payer MEDICARE, SELFPAY ==
[2016-06-12 14:02] VITALS: BMI 29.7
[2020-01-11 14:04] VITALS: BMI 27.7
[2020-01-22] VITALS (19 sets, daily range): BP systolic 123–182; BP diastolic 86–138; PULSE 105–129; RESP 12–34; TEMP 35.7–36.1; O2SAT 93–100; BMI 28.5; BMI 27.9; BMI 28.0
--- NOTE | 2020-01-22 21:45 | ED.VIS.GEN ---
History of Present Illness Chief Complaint: Chest Pain Informant: Patient Onset: Today Context: Gradual Onset Current Severity: Moderate Maximum Severity: Severe Narrative: Patient presents via EMS with prehospital EKG indicating inferior STEMI. Patient states he developed shortness of breath and chest heaviness this afternoon. He does have known cardiac disease with 6 prior cardiac stents. Patient reportedly was given aspirin and nitro by EMS. On arrival to the ER patient rates his chest pain at a 3 or 4. Prehospital EKG did indicate sinus tach with right bundle branch block. I was able to compare his prehospital EKG to one performed earlier this month. There was different ST elevation in the inferior leads when compared to prior. STEMI team was activated at that time. Hospitalist was present in the emergency room and will escort the patient to the Childcare Director. 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 (8) Nonsustained ventricular tachycardia Status: Chronic (9) Paroxysmal atrial fibrillation Status: Chronic (10) Presence of implantable cardioverter-defibrillator (ICD) Status: Chronic (11) Stage 3 chronic kidney disease Status: Chronic (12) Type II diabetes mellitus Status: Chronic Past Medical History - Allergies and Home Meds Allergies/Adverse Reactions: Allergies diltiazem Allergy (Verified 01/22/20 21:49) LOWER LEG SWELLING tamsulosin [From Flomax] Allergy (Verified 01/22/20 21:49) Shortness of breath/muscle weakness atorvastatin calcium [From Lipitor] Adverse Reaction (Verified 01/22/20 21:49) MUSCLE WEAKNESS Prior records reviewed: Yes Surgical History: herniorrhaphy, total knee arthroplasty - ACLS repair, - - s/p stents, AICD s/p cardioversion, s/p wrist and elbow surgery Smoking Status: Former smoker - Family History Maternal Family History: Family History (Last Reviewed 01/11/20 @ 16:45 by Yuliet FORD, PA) Brother Sudden cardiac Family History: Reports: Hypertension Paternal Family History: Family History (Last Reviewed 01/11/20 @ 16:45 by Yuliet FORD PA) Brother Sudden cardiac Family History: Reports: Unknown Sibling Family History: Family History (Last Reviewed 01/11/20 @ 16:45 by Yuliet FORD PA) Brother Sudden cardiac Family History: Reports: Heart Disease Review of Systems General: Denies: Chills, Fever Eyes: Denies: Visual changes - bilaterally ENT: Denies: Bilateral ear pain Cardiovascular: Reports: Chest pain, Heart racing Respiratory: Reports: Dyspnea Gastrointestinal: Denies: Abdominal pain, Vomiting Musculoskeletal: Denies: Extremity Pain Skin: Denies: Rash Neurological: Denies: Headache Hematologic: Denies: Easy bruising, Easy bleeding Allergy: Denies: Uticaria Physical Exam Vital Signs/Narrative: Vital Signs Temp Pulse Resp BP 01/22/20 21:37 33 H 182/129 H 01/22/20 21:33 96.2 F L 129 H 34 H 182/129 H Inital Vital Signs reviewed: Yes General: Well nourished, Well developed Head: Normocephalic ENT: Moist mucous membranes Neck: Supple Cardiovascular: Tachycardia Respiratory: No distress, CTA bilaterally Abdomen: Soft, Nontender Back: Nontender Extremities: Nontender Skin: Pallor Neurological: Alert, Oriented x3 Psychological: Normal affect Diagnostic/Tx/Re-eval - EKG Initial EKG Interpretation: Atrial Fibrillation - EKG here appears to show underlying A. fib with a rate of 118. ST segments in the inferior leads are improved when compared to the prehospital EKG. - Medical Decision Making Patient was initially called as a STEMI alert. presented to the emergency room. At the time of his arrival patient stated that his chest pain was completely resolved. Community Service Officer Coordinator felt that the ST changes that were noted were secondary to his cardiac rhythm. Patient had been given 150 mg of amiodarone by myself for rate control. Community Service Officer Coordinator given additional 150 mg and placed him on an amiodarone drip. Patient did develop increasing shortness of breath with poor lung sounds. Chest x-ray is consistent with pulmonary edema. He is placed on BiPAP and given IV Lasix. Hospitalist has been at bedside and speaking with chemist instrumentation as well. Patient will be admitted to the ICU. - Critical Care Time Critical care time (excluding procedures): 30-74 minutes ED Disposition - Plan for ED Patient: Disposition: Acute Care Hospital [facility] Diagnosis: Pulmonary edema, Chest pain
[2020-01-22] MEDS: 0.9% Normal Saline 1,000 ML 150 ML IV (21:46)
--- NOTE | 2020-01-22 21:51 | EKG12_ITS ---
Test Reason : REPEAT EKG Blood Pressure : / mmHG Vent. Rate : 115 BPM Atrial Rate : 115 BPM P-R Int : 160 ms QRS Dur : 170 ms QT Int : 400 ms P-R-T Axes : 000 -87 060 degrees QTc Int : 553 ms Poor data quality, interpretation may be adversely affected Consider atrial flutter Left axis deviation Right bundle branch block Inferior infarct , age undetermined , cannot be excluded Anterolateral infarct , age undetermined , cannot be excluded Abnormal ECG When compared with ECG of 22-JAN-2020 21:34, MANUAL COMPARISON REQUIRED, DATA IS UNCONFIRMED Confirmed by MEL METZ, HEMA ([id number]), copy editor LISBET HAWK ([id number]) on 01/23/2020 9:17:47 AM Referred By: Hema Flynn Confirmed By:HEMA LEAL MD
[2020-01-22] MEDS: Metoprolol Tartrate 5 MG/5 ML Vial IV (21:59)
[2020-01-22 22:03] LABS: Absolute Lymphocyte Count 1.17 X10^3/uL (0.83-4.51); Absolute Neutrophil Count 7.8 X10^3/uL (2.0-7.7); Eosinophil# 0.13 X10^3/uL; Eosinophils% 1.2 % (0-5); Hematocrit 52.3 % (40-54); Hemoglobin 16.1 g/dL (13.0-16.5); Lymphocyte # 1.17 X10^3/ul (4.0); Lymphocyte % 11.1 % (19-41); Mean Corp Hgb Conc 30.8 g/dL (32-36); Mean Corpuscular Hgb 25.8 pg (27.0-32.0); Mean Corpuscular Volume 83.9 fL (80-94); Mean Platelet Vol. 9.6 fl (6.2-12.0); Monocyte# 1.09 X10^3/uL; Monocyte% 10.4 % (0-10); NRBC Flagged by Analyzer 0 % (0-5); Neutrophil # 7.76 X10^3/uL (2.7-7.7); Neutrophil % 73.8 % (47-70); POSITIVE MORPHOLOGY YES; Platelet Count 356 K/mm3 (150-450); RBC Distribution Width CV 20.3 % (11.6-14.6); RBC Distribution Width SD 57.9 fl (35.1-43.9); Red Blood Count 6.23 M/mm3 (4.6-6.2); White Blood Count 10.5 K/mm3 (4.4-11.0)
[2020-01-22 22:10] LABS: International Normalized Ratio 1.2; Prothrombin Time (Protime)PT. 14.6 SECONDS (11.7-14.9)
--- NOTE | 2020-01-22 22:10 | RAD_ITS ---
STUDY: X-RAY CHEST REASON FOR EXAM: Male, 69 years old. STEMI, CHEST PAIN TECHNIQUE: Single AP portable view of the chest. COMPARISON: None. FINDINGS: No pleural effusion, vascular congestion or acute pulmonary inflammatory change. Normal size heart. Pacemaker on the left. Normal mediastinum and loco. Normal visualized pulmonary arteries. Normal visualized aortic arch and descending thoracic aorta. Normal visualized thoracic spine. Normal visualized ribs, clavicles, and shoulders. There is no demonstrated abnormality of the visualized soft tissue structures of the upper abdomen. RAD/Chest 1 View (Portable) IMPRESSION: No acute findings. Electronically Signed: Odalis Jha MD at 22:38 EDT Tel , Service support ,
[2020-01-22 22:11] LABS: Differential Indicated SCAN CRITERIA MET; Partial Thromboplast Time 28.5 Seconds (24.1-36.2)
--- NOTE | 2020-01-22 22:12 | HP.PCM_ITS ---
Problem List (1) Stage 3 chronic kidney disease Status: Chronic (2) Essential hypertension Status: Chronic (3) senior care current use of 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 Status: Chronic (4) Nonsustained ventricular tachycardia Status: Chronic (5) Chronic systolic CHF (congestive heart failure) Status: Chronic (6) Presence of implantable cardioverter-defibrillator (ICD) Status: Chronic (7) History of coronary artery stent placement Status: Chronic Comment: SARA-RCA 06/15/2011, SARA-OM1 06/30/2011, SARA-LAD 08/20/2014, SARA-Prox- RCA 06/08/2016 (8) Paroxysmal atrial fibrillation Status: Chronic (9) Hyperlipidemia Status: Chronic Qualifiers: (10) Type II diabetes mellitus Status: Chronic (11) STEMI (ST elevation myocardial infarction) Status: Acute History of Present Illness Date of Admission: 01/22/20 Chief Complaint: chest pain The patient is a 69 year old patient with a significant past medical history of coronary artery disease status post 6 stents in the past. The patient presents to the emergency room via squad for chest pain for which he received nitroglycerin and aspirin in route and rated his pain 4 out of 10 upon arrival to the emergency room. Prehospital EKG indicated ST elevation with sinus tachycardia in the inferior leads and ST elevation LA alert was initiated. Upon arrival to the emergency room another EKG was completed which showed diminished ST elevation but continued to have tachycardia in the rate of 1 30-1 40. The patient received a bolus of amiodarone 150 mg, and verification clerk arrived into the emergency room. He ordered an additional dose of amiodarone 1 50 mg along with Lopressor 5 mg IV to slow the heart rate down. The implantable cardiac defibrillator was interrogated and tire design engineer will follow up with that. The patient will be admitted to the ICU overnight on amiodarone drip and as needed Lopressor. Plan may be to do cardiac catheterization in the morning. Currently the patient is free of chest pain and denies nausea vomiting and/or shortness of breath. He has no fever or symptoms of respiratory illness at this time. Past Medical History Past Medical History (Chronic Problems): Chronic Problems (Last Reviewed 01/11/20 @ 16:45 by Yuliet FORD, PA) Stage 3 chronic kidney disease (Chronic) Essential hypertension (Chronic) senior care current use of 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) Nonsustained ventricular tachycardia (Chronic) Chronic systolic CHF (congestive heart failure) (Chronic) Presence of implantable cardioverter-defibrillator (ICD) (Chronic) 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) History of coronary artery stent placement (Chronic 06/08/16) SARA-RCA 06/15/2011, SARA-OM1 06/30/2011, SARA-LAD 08/20/2014, SARA-Prox- RCA 06/08 Atherosclerosis of coronary artery of [place] heart without angina pectoris (Chronic) SARA-RCA 06/15/2011, SARA-OM1 06/30/2011, SARA-LAD 08/20/2014, SARA-Prox- RCA 06/08/2016 Paroxysmal atrial fibrillation (Chronic) Hyperlipidemia (Chronic) Type II diabetes mellitus (Chronic) Cardiomyopathy, ischemic (Chronic) Medical History: Medical History (Last Reviewed 01/11/20 @ 16:45 by Yuliet FORD, PA) Stage 3 chronic kidney disease (Chronic) N18.3 Essential hypertension (Chronic) I10 senior care current use of 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) Z79.01 Nonsustained ventricular tachycardia (Chronic) I47.2 Chronic systolic CHF (congestive heart failure) (Chronic) I50.22 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) I27.21 Atherosclerosis of coronary artery of [place] heart without angina pectoris (Chronic) I25.10 SARA-RCA 06/15/2011, SARA-OM1 06/30/2011, SARA-LAD 08/20/2014, SARA-Prox- RCA 06/08/2016 Paroxysmal atrial fibrillation (Chronic) I48.0 Hyperlipidemia (Chronic) E78.5 Type II diabetes mellitus (Chronic) E11.9 STEMI (ST elevation myocardial infarction) (Chronic) Cardiomyopathy, ischemic (Chronic) I25.5 DDD (degenerative disc disease) Obesity (BMI 30.0-34.9) E66.9 Old myocardial infarction I25.2 inferior lateral and Anterior Apical Cardiogenic shock Onset Date: 06/08/16 R57.0 Hypertensive emergency I16.1 Esophagitis determined by endoscopy (Inactive) Onset Date: 05/06/17 K20.9 Allergies diltiazem Allergy (Verified 01/22/20 21:49) LOWER LEG SWELLING tamsulosin [From Flomax] Allergy (Verified 01/22/20 21:49) Shortness of breath/muscle weakness atorvastatin calcium [From Lipitor] Adverse Reaction (Verified 01/22/20 21:49) MUSCLE WEAKNESS Home Medications: Ambulatory Orders Medication Instructions Recorded Amiodarone HCl [Cordarone] 200 mg PO DAILY 03/13/19 Loratadine 10 mg PO DAILY 03/13/19 Pantoprazole Sodium [Protonix] 40 mg PO BID 03/13/19 Ranolazine [Ranolazine ER] 500 mg PO BID 03/13/19 Insulin NPH Human Isophane 22 unit SQ BREAKFAST 04/20/19 [Novolin N] Insulin NPH Human Isophane 22 unit SQ QHS 06/14/19 [Humulin N] clopidogrel 75 mg tablet 75 mg PO DAILY #30 tab 06/23/19 Nitroglycerin (INPATIENT USE) 0.4 mg SUBLINGUAL Q5M PRN #30 tab 08/15/19 [Nitrostat] pravastatin 40 mg tablet 40 mg PO QHS #90 tab 09/15/19 Aspirin [Aspirin, Baby] 81 mg PO DAILY@0800 10/20/19 apixaban 2.5 mg tablet 2.5 mg PO BID #60 tab 12/07/19 furosemide 80 mg tablet 40 mg PO DAILY tab 01/03/20 Carvedilol 25 mg PO BID PRN PRN 01/05/20 metolazone 2.5 mg tablet 2.5 mg PO X1 01/11/20 Spironolactone 25 mg PO DAILY 01/22/20 Surgical History: Surgical History (Last Reviewed 01/11/20 @ 16:45 by Yuliet Nayak PA, PA) Presence of implantable cardioverter-defibrillator (ICD) (Chronic) Z95.810 History of coronary artery stent placement (Chronic) Onset Date: 06/08/16 Z95.5 SARA-RCA 06/15/2011, SARA-OM1 06/30/2011, SARA-LAD 08/20/2014, SARA-Prox- RCA 06/08/2016 History of cardioversion Onset Date: 04/10/16 Z98.890 01/14/15 (unsuccessful), 04/10/2016 H/O elbow surgery Z98.890 H/O left wrist surgery Z98.890 S/P right inguinal hernia repair Z98.890, Z87.19 Status post knee surgery Z98.890 Surgical History: herniorrhaphy, total knee arthroplasty - ACLS repair, - - s/p stents, AICD s/p cardioversion, s/p wrist and elbow surgery Psychiatric History: No pertinent psych hx Smoking Status: Former smoker - *Family History Maternal Family History: Family History (Last Reviewed 01/11/20 @ 16:45 by Yuliet FORD, PA) Brother Sudden cardiac History Items: Hypertension Paternal Family History: Family History (Last Reviewed 01/11/20 @ 16:45 by Yuliet FORD, PA) Brother Sudden cardiac History Items: Unknown Sibling Family History: Family History (Last Reviewed 01/11/20 @ 16:45 by Yuliet FORD, PA) Brother Sudden cardiac History Items: Heart Disease Review of Systems Constitutional: Denies: Chills, Fever, Weight Change HEENT: Denies: Head Aches, Sinus Congestion, Sinus Drainage Cardiovascular: Reports: Chest Pain. Denies: Palpitations Respiratory: Denies: Cough, Shortness of breath at rest, Sputum production Gastrointestinal: Denies: Abdominal Pain, Nausea, Vomiting Genitourinary: Denies: Dysuria Musculoskeletal: Denies: Joint Pain, Joint Tenderness Skin: Denies: Rash, Wounds Neurological: Denies: Numbness, Tingling, Focal weakness Psychiatric: Denies: Anxiety, Depression, Homicidal Ideations, Suicidal Ideations Hematologic/ Lymphatic: Denies: Easy Bruising, Easy Bleeding VTE Information - Inpt Only VTE Present on Admission: No VTE Mechan Device Prophylaxis: None VTE Pharm Prophylaxis ordered?: No - Physical Exam Vitals/I&O's: Vital Signs Temp Pulse Resp BP Pulse Ox 96.2 F L 110 H 32 H 140/108 H 93 01/22/20 21:33 01/22/20 22:00 01/22/20 22:00 01/22/20 22:00 01/22/20 22:00 Oxygen Flow Rate (L/min) 4 Oxygen Delivery Method Nasal Cannula Weight: 193 lb 1.999 oz Body Mass Index (BMI) 28.5 Finger Stick Blood Glucose 105 General: Alert, Oriented x3, Cooperative HEENT: Atraumatic, Normocephalic Neck: Supple Lungs: Clear to auscultation, Normal air movement Cardiovascular: Regular rate Abdomen: Bowel Sounds Present Extremities: No edema Skin: No rashes Musculoskeletal: No Tenderness to Palpation of Joints or Extremities Neurological: Neuro grossly intact Psych/Mental Status: Normal Affect, Appropriate Laboratory Results 01/22/20 21:45: WBC 10.5, RBC 6.23 H, Hgb 16.1, Hct 52.3, MCV 83.9, MCH 25.8 L, MCHC 30.8 L, RDW Std Deviation 57.9 H, RDW Coeff of [place] 20.3 H, Plt Count 356, MPV 9.6, Immature Gran % (Auto) 2.500 H, Neut % (Auto) 73.8 H, Lymph % (Auto) 11.1 L, [place] % (Auto) 10.4 H, Eos % (Auto) 1.2, Baso % (Auto) 1.0, Absolute Neuts (auto) 7.8 H, Absolute Lymphs (auto) 1.17, Nucleated RBC % 0 01/22/20 21:45: PT 14.6, INR 1.2, APTT Pending 01/22/20 21:45: Sodium Pending, Potassium Pending, Chloride Pending, Carbon Dioxide Pending, Anion Gap Pending, BUN Pending, Creatinine Pending, Est GFR (MDRD) Af Amer Pending, Est GFR (MDRD) Non-Af Pending, BUN/Creatinine Ratio Pending, Glucose Pending, Calcium Pending, Troponin I Pending Current Medications Sodium Chloride () 1,000 mls @ 150 mls/hr IV .Q6H40M [facility] Last Admin: 01/22/20 21:46 Dose: 150 mls/hr Documented by: Amiodarone HCl 360 mg/ (Dextrose) 200 mls @ 33.333 mls/hr CONT INF .Q6H [facility] Stop: 01/23/20 03:54 Assessment/Plan All Active Problems (Last Reviewed 01/11/20 @ 16:45 by Yuliet Nayak PA, PA) STEMI (ST elevation myocardial infarction) (Acute) Acute kidney injury superimposed on chronic kidney disease (Resolved) Chest pain (Resolved) Chronic Problems (Last Reviewed 01/11/20 @ 16:45 by Yuliet FORD, PA) Stage 3 chronic kidney disease (Chronic) Essential hypertension (Chronic) unit trust manager current use of 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) Nonsustained ventricular tachycardia (Chronic) Chronic systolic CHF (congestive heart failure) (Chronic) Presence of implantable cardioverter-defibrillator (ICD) (Chronic) 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) History of coronary artery stent placement (Chronic 06/08/16) SARA-RCA 06/15/2011, SARA-OM1 06/30/2011, SARA-LAD 08/20/2014, SARA-Prox- RCA 06/08/2016 Atherosclerosis of coronary artery of [place] heart without angina pectoris (Chronic) SARA-RCA 06/15/2011, SARA-OM1 06/30/2011, SARA-LAD 08/20/2014, SARA-Prox- RCA 06/08/2016 Paroxysmal atrial fibrillation (Chronic) Hyperlipidemia (Chronic) Type II diabetes mellitus (Chronic) Cardiomyopathy, ischemic (Chronic) plan 1. Chest pain/arrhythmia including ST elevation LA with sinus tachycardia and/or ventricular tachycardia?admit patient to ICU continue amiodarone drip as ordered, consult tire design engineer. Cycle cardiac enzymes per routine, order morphine oxygen nitroglycerin aspirin per routine. Make patient n.p.o. at midnight pending possible heart catheterization in the morning. Interrogation report of defibrillator was pending at the time of evaluation. 2. Paroxysmal atrial fibrillation?hold Eliquis 3. Diabetes?we will change to sliding scale insulin 4. Hypertension?we will add order of as needed Lopressor 5 mg IV every 6 hours as needed BP greater than 160/100 5. DVT prophylaxis?SCDs 6. Will start intravenous normal saline 75 cc/h, repeat CBC BMP in the morning and coag panel Inpatient E&M: 93240 Init Hosp L3
--- NOTE | 2020-01-22 22:14 | EKG12_ITS ---
Test Reason : STEMI ALERT Blood Pressure : / mmHG Vent. Rate : 128 BPM Atrial Rate : 182 BPM P-R Int : 000 ms QRS Dur : 170 ms QT Int : 426 ms P-R-T Axes : 000 -88 062 degrees QTc Int : 621 ms Undetermined rhythm ; consider atrial flutter Left axis deviation Right bundle branch block Inferior infarct , age undetermined, cannot be excluded Anterolateral infarct , age undetermined, cannot be excluded Abnormal ECG Confirmed by MEL METZ, HEMA ([id number]), managing editor LISBET HAWK ([id number]) on 01/23/2020 9:14:51 AM Referred By: Hema Flynn Confirmed By:HEMA LEAL MD
[2020-01-22] MEDS: Furosemide 40 MG/4 ML Vial IV (22:23)
--- NOTE | 2020-01-22 22:23 | ED.RN ---
DAUGHTER CALLED RN AND DOCTOR INTO ROOM FOR INCREASED DIAPHORESIS AND CLAMMY. PT AUDIBLE WHEEZES NOW. PER ZIPPER CUTTER AT BEDSIDE IN PULMONARY EDEMA. RESP CALLED TO BEDSIDE TO START BIPAP. 40 MG IV LASIX GIVEN AND MARTELL CATHETER INSERTED AT BEDSIDE. ED UPDATED ON PATIENT CONDITION AND ALSO EVALUATING PATIENT AT BEDSIDE
--- NOTE | 2020-01-22 22:25 | CM.ED ---
SOCIAL WORK Responded to STEMI upon patient's arrival. Patient's daughter present. Daughter reports patient lives with her and fiance and is main caregiver for patient. Daughter states he has a laundry list of problems and has been a frequent flyer here. Daughter states patient has been having frequent falls and had fall today. Daughter states had labored breathing after fall and chest pain. Squad was called. Patient currently on Bipap. Much emotional support and active listening provided throughout. Plan: Admit ICU Jh Lew MSW, CONSUMER SALES REPRESENTATIVE
[2020-01-22 22:27] LABS: Anion Gap 6 (5-15); BUN 44 mg/dL (7-18); BUN/Creat Ratio 13.5 RATIO (10-20); Chloride 95 mmol/L (98-107); Creatinine, Serum 3.27 mg/dL (0.70-1.30); EST Glomerular Filtration Rate 20 mL/min (>60); Est Glom Filt Rate - Afr Amer 24 mL/min (>60); Estimated Creatinine Clearance 21.92 ml/min; Glucose 463 mg/dL (74-106); Potassium 4.7 mmol/L (3.5-5.1); Sodium Level 130 mmol/L (136-145)
[2020-01-22] MEDS: Morphine 4 MG/ML Syringe 2.5 MG IV (22:28)
[2020-01-22] MEDS: Ipratropium/Albuterol Sulfate 3 ML AMPUL.NEB INHALATION (22:33)
[2020-01-22] MEDS: Nitroglycerin Infusion 250 ML 3 MG CONT INF (22:44)
[2020-01-22 22:45] LABS: Anisocytosis 1+; Platelet Estimate ADEQUATE (ADEQ); Red Cell Morphology N CHROM NORMAL (NORM C&C)
[2020-01-22 22:46] LABS: Microcytosis RARE; Ovalocyte RARE
[2020-01-22 22:58] LABS: BNP,B-Type NATRIURETIC PEPTIDE 362.5 pg/mL (0-100)
--- NOTE | 2020-01-22 23:25 | ECHOCS_ITS ---
Reason For Study: CP Procedure This was a 2D Doppler, Color Flow transthoracic echocardiogram. The study was technically difficult. Contrast injection was performed. Exam performed portable in ICU/CCU. Left Ventricle Normal LV size. Mild concentric left ventricular hypertrophy. Severe segmental systolic dysfunction (see wall motion). The estimated ejection fraction is 25 %. Unable to assess diastolic dysfunction. Infero-Basal: Hypokinetic. Basal inferoseptal: Hypokinetic. Mid-Anterior : Severely Hypokinetic. Mid-Lateral : Severely Hypokinetic. Mid-Posterior: Severely Hypokinetic. Mid-Inferior: Severely Hypokinetic. Mid-inferoseptal : Akinetic. Mid-anteroseptal : Akinetic. [place] : Akinetic. Right Ventricle Normal RV size. ICD or pacer leads identified within the right ventricle. Normal systolic function. Atria The left atrium is mildly enlarged. The right atrium is mildly enlarged. ICD or pacer leads identified within the right atrium. No doppler evidence for ASD. Mitral Valve There is no mitral annular calcification. Normal mitral valve. Mild-Moderate (1-2+) mitral valve insufficiency. Tricuspid Valve Normal tricuspid valve. Mild tricuspid valve insufficiency. Right ventricular systolic pressure estimated to be 45 mmHg. Aortic Valve Trisinus/trileaflet aortic valve. Mild focal aortic valve calcification. Pulmonic Valve The pulmonic valve is not well visualized. Great Vessels Normal sized aortic root. Pericardium/Pleural No pericardial effusion. Epicardial fat. Medication Diluted definity 3ml given slow IV push to enhance endocardial definition. MMode/2D Measurements & Calculations LVIDd: 5.3 cm IVSd: 1.4 cm Ao root diam: 3.6 cm LVIDs: 4.2 cm LVPWd: 1.3 cm LA dimension: 4.4 cm RVDd: 3.9 cm FS: 21.4 % LAV(MOD-bp): 54.1 ml LA A4 area: 19.4 cm2 RA A4 area: 18.2 cm2 LAV(MOD-bp) Indexed: 26.8 ml/m2 LAV(MOD-sp2): 46.7 ml LAV(MOD-sp4): 57.7 ml Doppler Measurements & Calculations MV E max romina: 100.1 cm/sec Ao V2 max: 110.2 cm/sec LV V1 max: 90.5 cm/sec Ao max P.0 mmHg LV V1 max P.3 mmHg PA V2 max: 65.1 cm/sec TR max romina: 323.2 cm/sec TR max P.8 mmHg Interpretation Summary The study was technically difficult. Contrast injection was performed. Severe segmental systolic dysfunction (see wall motion). The estimated ejection fraction is 25 %. Mild concentric left ventricular hypertrophy. The left atrium is mildly enlarged. The right atrium is mildly enlarged. Mild-Moderate (1-2+) mitral valve insufficiency. Mild tricuspid valve insufficiency. Mild focal aortic valve calcification. Epicardial fat. Right ventricular systolic pressure estimated to be 45 mmHg. Unable to assess diastolic dysfunction. ICD or pacer leads identified within the right atrium ICD or pacer leads identified within the right ventricle. Ordering Physician: Hema Flynn Referring Physician: Jennifer Spicer Performed By: Enoch Medina RCS
--- NOTE | 2020-01-22 23:26 | NURSING ---
2300: Patient transferred into room ICU 06 in stable condition. Belongings include cell phone, work order detailer, glasses, and clothing.
[2020-01-23] VITALS (32 sets, daily range): BP systolic 102–136; BP diastolic 71–104; PULSE 87–129; RESP 12–24; TEMP 36–37.7; O2SAT 92–100
--- NOTE | 2020-01-23 00:42 | EKG12_ITS ---
Test Reason : CP Blood Pressure : / mmHG Vent. Rate : 117 BPM Atrial Rate : 117 BPM P-R Int : 112 ms QRS Dur : 174 ms QT Int : 410 ms P-R-T Axes : 000 -79 054 degrees QTc Int : 571 ms Sinus tachycardia Left axis deviation Right bundle branch block Inferior infarct (cited on or before 07-JAN-2018) Anterolateral infarct (cited on or before 07-JAN-2018) Abnormal ECG When compared with ECG of 05-JAN-2020 21:33, Questionable change in initial forces of Inferior leads Confirmed by LUPE METZ, LARRY ([id number]), editor & co founder LISBET HAWK ([id number]) on 01/24/2020 1:25:37 P M Also confirmed by MEL METZ, HEMA ([id number]), editor & co founder CANELO DIETRICH ([id number]) on 01/30/2020 8:40:04 AM Referred By: Hema Flynn Confirmed By:HEMA LEAL MD
[2020-01-23 01:06] LABS: Bedside Glucose 250 mg/dL (70-110)
[2020-01-23] MEDS: Insulin Lispro 100 UNIT/ML INSULN.PEN SC ×4 (01:07→21:57)
[2020-01-23] MEDS: 0.9% Saline Lock 10 ML Syringe IV (01:10)
[2020-01-23] MEDS: Amiodarone 360 MG in Dextrose 5% Viaflo Bag 192.8 ML 33.3 MG CONT INF (02:22)
[2020-01-23 04:50] LABS: Absolute Lymphocyte Count 0.83 X10^3/uL (0.83-4.51); Absolute Neutrophil Count 6.1 X10^3/uL (2.0-7.7); Basophil# 0.06 X10^3/uL; Basophil% 0.7 % (0-1); Eosinophil# 0.07 X10^3/uL; Eosinophils% 0.9 % (0-5); Hematocrit 44.6 % (40-54); Lymphocyte # 0.83 X10^3/ul (4.0); Lymphocyte % 10.3 % (19-41); Mean Corp Hgb Conc 31.4 g/dL (32-36); Mean Corpuscular Hgb 26.3 pg (27.0-32.0); Mean Corpuscular Volume 83.7 fL (80-94); Mean Platelet Vol. 9.4 fl (6.2-12.0); Monocyte# 0.83 X10^3/uL; Monocyte% 10.3 % (0-10); NRBC Flagged by Analyzer 0 % (0-5); Neutrophil % 76.2 % (47-70); Platelet Count 269 K/mm3 (150-450); RBC Distribution Width CV 19.6 % (11.6-14.6); RBC Distribution Width SD 57.1 fl (35.1-43.9); Red Blood Count 5.33 M/mm3 (4.6-6.2)
[2020-01-23 05:03] LABS: International Normalized Ratio 1.3; Prothrombin Time (Protime)PT. 15.5 SECONDS (11.7-14.9)
[2020-01-23 05:36] LABS: ALB/GLOB Ratio 0.7 RATIO (0.9-2.4); AST(SGOT) 32 U/L (15-37); Alanine Aminotransfer ALT/SGPT 21 U/L (16-61); Albumin, Serum 2.9 g/dL (3.2-5.0); Alkaline Phosphatase 69 U/L (45-117); BUN 45 mg/dL (7-18); BUN/Creat Ratio 15.3 RATIO (10-20); Calcium,Total 8.1 mg/dL (8.5-10.1); Creatinine, Serum 2.95 mg/dL (0.70-1.30); EST Glomerular Filtration Rate 23 mL/min (>60); Est Glom Filt Rate - Afr Amer 28 mL/min (>60); Glucose 361 mg/dL (74-106); Magnesium 1.9 mg/dL (1.6-2.6); Phosphorus 4.1 mg/dL (2.5-4.9); Protein, Total 6.9 g/dL (6.4-8.2)
[2020-01-23 05:37] LABS: Anion Gap 5 (5-15); Chloride 96 mmol/L (98-107); Potassium 5.1 mmol/L (3.5-5.1); Sodium Level 133 mmol/L (136-145)
[2020-01-23 06:10] LABS: Bedside Glucose 348 mg/dL (70-110)
--- NOTE | 2020-01-23 07:31 | PN_ITS ---
Patient Problems: Active and Suspected Problems (Last Reviewed 01/11/20 @ 16:45 by Yuliet Nayak PA, PA) Pulmonary edema (Acute) Chest pain (Acute) STEMI (ST elevation myocardial infarction) (Acute) Reason for Visit: Pain AMorgan taylor with RVR Subjective: Patient is a 69-year-old gentleman with multiple comorbidities including congestive heart failure with reduced ejection fraction, paroxysmal A. fib diabetes mellitus type 2 who presented with chest pain. Patient was found to have slightly elevated troponin. EKG obtained on admission demonstrated A. claudia with aberrancy started on amiodarone drip admitted to the intensive care unit for subsequent management Objective: GENERAL: cooperative HEENT: Atraumatic; EYES; Anicteric, Normal Conjunctiva NECK; supple, normal thyroid, RESPIRATORY: Diminished to auscultation CARDIOVASCULAR: Irregular S1-S2 GI: soft, normoactive bowel sounds, : No Renal angle tenderness; EXTREMITIES: No edema, no clubbing, MUSCULOSKELETAL: no muscle waisting NEURO: Awake; no lateralizing signs. SKIN: No Rash PSYCH; Flat affect Vitals/I&O's: Vital Signs Temp Pulse Resp BP Pulse Ox 98.9 F 99 21 H 103/75 94 01/23/20 07:00 01/23/20 07:00 01/23/20 07:00 01/23/20 07:00 01/23/20 07:00 Oxygen Flow Rate (L/min) 2 Oxygen Delivery Method Nasal Cannula Weight: 85.9 kg Body Mass Index (BMI) 27.9 Finger Stick Blood Glucose 105 Intake and Output for Last 24 Hours 01/21/20 01/22/20 01/23/20 23:59 23:59 23:59 Intake Total 391 / 391 Output Total 125 / 125 585 / 585 Balance 266 / 266 -585 / -585 Laboratory Results 01/22/20 21:45: WBC 10.5, RBC 6.23 H, Hgb 16.1, Hct 52.3, MCV 83.9, MCH 25.8 L, MCHC 30.8 L, RDW Std Deviation 57.9 H, RDW Coeff of [place] 20.3 H, Plt Count 356, MPV 9.6, Immature Gran % (Auto) 2.500 H, Neut % (Auto) 73.8 H, Lymph % (Auto) 11.1 L, [place] % (Auto) 10.4 H, Eos % (Auto) 1.2, Baso % (Auto) 1.0, Absolute Neuts (auto) 7.8 H, Absolute Lymphs (auto) 1.17, Nucleated RBC % 0, Platelet Estimate ADEQUATE, RBC Morphology N CHROM, Anisocytosis 1+, Microcytosis RARE, Ovalocytes RARE 01/22/20 21:45: PT 14.6, INR 1.2, APTT 28.5 01/22/20 21:45: Sodium 130 L, Potassium 4.7, Chloride 95 L, Carbon Dioxide 29.0, Anion Gap 6, BUN 44 H, Creatinine 3.27 H, Estim Creat Clear Calc 21.92, Est GFR (MDRD) Af Amer 24 L, Est GFR (MDRD) Non-Af 20 L, BUN/Creatinine Ratio 13.5, Glucose 463 H*, Calcium 9.0, Troponin I 0.028 01/22/20 21:48: B-Natriuretic Peptide 362.5 H 01/23/20 00:55: Troponin I 0.078 H 01/23/20 00:58: POC Glucose 250 H 01/23/20 04:35: WBC 8.0, RBC 5.33, Hgb 14.0, Hct 44.6, MCV 83.7, MCH 26.3 L, MCHC 31.4 L, RDW Std Deviation 57.1 H, RDW Coeff of [place] 19.6 H, Plt Count 269, MPV 9.4, Immature Gran % (Auto) 1.600 H, Neut % (Auto) 76.2 H, Lymph % (Auto) 10.3 L, [place] % (Auto) 10.3 H, Eos % (Auto) 0.9, Baso % (Auto) 0.7, Absolute Neuts (auto) 6.1, Absolute Lymphs (auto) 0.83, Nucleated RBC % 0 01/23/20 04:35: PT 15.5 H, INR 1.3 01/23/20 04:35: Sodium 133 L, Potassium 5.1, Chloride 96 L, Carbon Dioxide 32.0, Anion Gap 5, BUN 45 H, Creatinine 2.95 H, Estim Creat Clear Calc 24.30, Est GFR (MDRD) Af Amer 28 L, Est GFR (MDRD) Non-Af 23 L, BUN/Creatinine Ratio 15.3, Glucose 361 H, Calcium 8.1 L, Phosphorus 4.1, Magnesium 1.9, Total Bilirubin 0.50, AST 32, ALT 21, Alkaline Phosphatase 69, Total Protein 6.9, Albumin 2.9 L, Globulin 4.0, Albumin/Globulin Ratio 0.7 L 01/23/20 04:35: Troponin I 0.085 H 01/23/20 05:59: POC Glucose 348 H Current Medications Enoxaparin Sodium (Enoxaparin 30 Mg/0.3 Ml Syringe) 30 mg SC DAILY [facility] Nitroglycerin/Dextrose () 250 mls @ 3 mls/hr CONT INF .[id number] [facility]; Protocol Last Admin: 01/22/20 22:44 Dose: 5 mcg/min, 3 mls/hr Documented by: Sodium Chloride () 250 mls @ 15 mls/hr IV .[id number] PRN PRN Reason: Saline Flush Sodium Chloride () 250 mls @ 15 mls/hr IV .[id number] PRN PRN Reason: Additional IVPB Infusion Amiodarone HCl 360 mg/ (Dextrose) 200 mls @ 33.333 mls/hr CONT INF .Q6H [facility] Stop: 01/23/20 08:09 Last Admin: 01/23/20 02:22 Dose: 1 mg/min, 33.3 mls/hr Documented by: Amiodarone HCl 360 mg/ (Dextrose) 200 mls @ 16.667 mls/hr CONT INF .Q12H [facility] Stop: 01/24/20 02:08 Influenza Virus Vaccine Quadrival (Influenza Vaccine (6mos+)/Pf 0.5 Ml Syringe) 0.5 ml IM .ONCE ONE Stop: 01/23/20 10:01 Insulin Human Lispro (Insulin Lispro 100 Unit/Ml Insuln.Pen) 0 unit SC Q6 [facility]; Protocol Last Admin: 01/23/20 05:59 Dose: 5 u Documented by: Morphine Sulfate (Morphine 2 Mg/Ml Syringe) 2 mg IV Q3H PRN PRN PRN Reason: Pain Score 6-10 Nitroglycerin (Nitroglycerin (Inpatient Use) 0.4 Mg Tab.Subl) 0.4 mg SUBLINGUAL Q5M PRN PRN Reason: CARDIAC/CHEST PAIN Ondansetron HCl (Ondansetron 4 Mg/2 Ml Vial) 4 mg IV Q8H PRN PRN PRN Reason: NAUSEA/VOMITING Sodium Chloride (0.9% Saline Lock 10 Ml Syringe) 10 - 40 ml IV UD PRN PRN Reason: SALINE FLUSH Last Admin: 01/23/20 01:10 Dose: 10 ml Documented by: ADEEL Vital Signs/Narrative: Vital Signs Temp Pulse Resp BP Pulse Ox 01/23/20 07:00 98.9 F 99 21 H 103/75 94 01/23/20 06:00 99 F 98 17 131/93 H 100 01/23/20 05:00 99 F 96 19 H 113/85 H 100 01/23/20 04:30 87 19 H 100 01/23/20 04:00 98.9 F 103 H 17 123/86 H 99 Medical Necessity - Tobacco Use Smoking Status: Former smoker Assessment/Plan All Active Problems (Last Reviewed 01/11/20 @ 16:45 by Yuliet Nayak PA, PA) Pulmonary edema (Acute) Chest pain (Acute) STEMI (ST elevation myocardial infarction) (Acute) Acute kidney injury superimposed on chronic kidney disease (Resolved) Chest pain (Resolved) Patient is a 69-year-old gentleman with multiple comorbidities including congestive heart failure with reduced ejection fraction, paroxysmal A. fib diabetes mellitus type 2 who presented with chest pain. Patient was found to have slightly elevated troponin. EKG obtained on admission demonstrated A. fib with aberrancy started on amiodarone drip admitted to the intensive care unit for subsequent management 1. Chest pain ?Patient was found to have slightly elevated troponin. Intensity intensive care unit serial cardiac enzymes ordered patient placed on nitroglycerin drip with consultation placed to cardiology subsequent management deferred to cardiology 2. A. fib with RVR ?EKG obtained on admission demonstrated A. fib with aberrancy with rapid ventricular response. Started on amiodarone drip currently being managed in the intensive care unit. Patient is on systemic anticoagulation with Eliquis this was held on admission pending any intervention by cardiology 3. Congestive heart failure ?With reduced ejection fraction EF of 35%. Currently compensated 4. Hypertension - Blood pressure controlled, home medications continued with dose adjustment as needed 5. Diabetes mellitus type II -Uncontrolled with hyperglycemia, placed on long acting insulin, Accu-Cheks a.c. and at bedtime and covered with sliding scale insulin 6. Chronic kidney disease stage IV ?Secondary to diabetic nephropathy patient kidney function appears to be at baseline. Had previously been seen in consultation by nephrology 7. DVT prophylaxis ?Patient on systemic anticoagulation with Eliquis which is currently being held Advance planning; did discuss with the patient and family regarding advanced directives as well as CODE STATUS. Did explain the various scenarios involved ( FULL CODE, DNR CCA, DNR CCA with no intubation, and DNR CC and what each meant) patient elected full code with CPR and intubation if warranted. Order was placed. Time spent on discussion 18 minutes. Inpatient E&M: 51028 [facility] L[facility] Procedures: 43747 Advncd Care Plan 30 Min
[2020-01-23] MEDS: Amiodarone 360 MG in Dextrose 5% Viaflo Bag 192.8 ML 16.7 MG CONT INF ×2 (10:23→22:00)
--- NOTE | 2020-01-23 12:59 | CASEMGMT ---
RN CM Assessment Note Intro role of CM to patient in room. Patient is awake, alert and able to participate in assessment. He states he is independent, his daughter lives with him, but he takes care of home. Presentation: chest pain Diagnosis: Afib RVR PMH: CKD stage 3, NSVT, CHF, ICD, stent PCP: Dr. Spicer Specialists: Dr. Butler- patient is aware he will need reassigned cardiology and will do through office. Insurance: [facility] Preferred Pharmacy: [facility] Prescription Benefit: yes LNOK: Daughter Cristy Monroy Living Arrangements: Lives in 2 story home. States is able to do stairs safely. Uses cane, no other DME. States he is independent with ADL's and does not anticipate will have care needs on discharge. Tranportation: drives DME: DEBORAH richard HHC: none SNF: none Patient DC Goals: Home DC Plan: anticipate home on discharge. CM updated patient to contact cm if any concerns re: dc arise. CM available for discharge planning coordination. Nii ARRINGTON RN ACM
[2020-01-23 13:35] LABS: Bedside Glucose 234 mg/dL (70-110)
[2020-01-23] MEDS: Carvedilol 25 MG Tablet PO ×2 (15:38→21:57)
--- NOTE | 2020-01-23 16:00 | PCM.CONS.C ---
Reason for Consult Date of Consultation: 01/22/20 History of Present Illness: The patient is a 69 year old M [] Past Medical History Allergies/Adverse Reactions: Allergies diltiazem Allergy (Verified 01/22/20 21:49) LOWER LEG SWELLING tamsulosin [From Flomax] Allergy (Verified 01/22/20 21:49) Shortness of breath/muscle weakness atorvastatin calcium [From Lipitor] Adverse Reaction (Verified 01/22/20 21:49) MUSCLE WEAKNESS Home Medications: Ambulatory Orders Medication Instructions Recorded Amiodarone HCl [Cordarone] 200 mg PO DAILY 03/13/19 Loratadine 10 mg PO DAILY 03/13/19 Pantoprazole Sodium [Protonix] 40 mg PO BID 03/13/19 Ranolazine [Ranolazine ER] 500 mg PO BID 03/13/19 Insulin NPH Human Isophane 22 unit SQ BREAKFAST 04/20/19 [Novolin N] Insulin NPH Human Isophane 22 unit SQ QHS 06/14/19 [Humulin N] clopidogrel 75 mg tablet 75 mg PO DAILY #30 tab 06/23/19 Nitroglycerin (INPATIENT USE) 0.4 mg SUBLINGUAL Q5M PRN #30 tab 08/15/19 [Nitrostat] pravastatin 40 mg tablet 40 mg PO QHS #90 tab 09/15/19 Aspirin [Aspirin, Baby] 81 mg PO DAILY@0800 10/20/19 apixaban 2.5 mg tablet 2.5 mg PO BID #60 tab 12/07/19 furosemide 80 mg tablet 40 mg PO DAILY tab 01/03/20 Carvedilol 25 mg PO BID PRN PRN 01/05/20 metolazone 2.5 mg tablet 2.5 mg PO X1 01/11/20 Spironolactone 25 mg PO DAILY 01/22/20 Past Medical History (Chronic Problems): Chronic Problems (Last Reviewed 01/11/20 @ 16:45 by Yuliet FORD, PA) Stage 3 chronic kidney disease (Chronic) Essential hypertension (Chronic) halfway current use of 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) Nonsustained ventricular tachycardia (Chronic) Chronic systolic CHF (congestive heart failure) (Chronic) Presence of implantable cardioverter-defibrillator (ICD) (Chronic) 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) History of coronary artery stent placement (Chronic 06/08/16) SARA-RCA 06/15/2011, SARA-OM1 06/30/2011, SARA-LAD 08/20/2014, SARA-Prox- RCA 06/08/2016 Atherosclerosis of coronary artery of [place] heart without angina pectoris (Chronic) SARA-RCA 06/15/2011, SARA-OM1 06/30/2011, SARA-LAD 08/20/2014, SARA-Prox- RCA 06/08/2016 Paroxysmal atrial fibrillation (Chronic) Hyperlipidemia (Chronic) Type II diabetes mellitus (Chronic) Cardiomyopathy, ischemic (Chronic) Surgical History: herniorrhaphy, total knee arthroplasty - ACLS repair, - - s/p stents, AICD s/p cardioversion, s/p wrist and elbow surgery Psychiatric History: No pertinent psych hx - *Family History Maternal Family History: Family History (Last Reviewed 01/11/20 @ 16:45 by Yuliet FORD, PA) Brother Sudden cardiac History Items: Hypertension Paternal Family History: Family History (Last Reviewed 01/11/20 @ 16:45 by Yuliet FORD, PA) Brother Sudden cardiac History Items: Unknown Sibling Family History: Family History (Last Reviewed 01/11/20 @ 16:45 by Yuliet FORD, PA) Brother Sudden cardiac History Items: Heart Disease Smoking Status: Former smoker Objective: Vital Signs Temp Pulse Resp BP Pulse Ox 98.9 F 100 21 H 103/75 94 01/23/20 07:00 01/23/20 12:00 01/23/20 07:00 01/23/20 07:00 01/23/20 07:00 Oxygen Flow Rate (L/min) 2 Oxygen Delivery Method Nasal Cannula Weight: 189 lb 6.033 oz Body Mass Index (BMI) 27.9 Finger Stick Blood Glucose 105 Intake and Output for Last 24 Hours 01/21/20 01/22/20 01/23/20 23:59 23:59 23:59 Intake Total 391 / 391 200 / 200 Output Total 125 / 125 835 / 835 Balance 266 / 266 -635 / -635 01/22/20 21:45: WBC 10.5, RBC 6.23 H, Hgb 16.1, Hct 52.3, MCV 83.9, MCH 25.8 L, MCHC 30.8 L, Plt Count 356, MPV 9.6, Immature Gran % (Auto) 2.500 H, Neut % (Auto) 73.8 H, Lymph % (Auto) 11.1 L, [place] % (Auto) 10.4 H, Eos % (Auto) 1.2, Baso % (Auto) 1.0, Absolute Neuts (auto) 7.8 H, Nucleated RBC % 0 01/22/20 21:45: PT 14.6, INR 1.2, APTT 28.5 01/22/20 21:45: Sodium 130 L, Potassium 4.7, Chloride 95 L, Carbon Dioxide 29.0, Anion Gap 6, BUN 44 H, Creatinine 3.27 H, Est GFR (MDRD) Af Amer 24 L, Est GFR (MDRD) Non-Af 20 L, BUN/Creatinine Ratio 13.5, Glucose 463 H*, Calcium 9.0, Troponin I 0.028 01/22/20 21:48: B-Natriuretic Peptide 362.5 H 01/23/20 00:55: Troponin I 0.078 H 01/23/20 04:35: WBC 8.0, RBC 5.33, Hgb 14.0, Hct 44.6, MCV 83.7, MCH 26.3 L, MCHC 31.4 L, Plt Count 269, MPV 9.4, Immature Gran % (Auto) 1.600 H, Neut % (Auto) 76.2 H, Lymph % (Auto) 10.3 L, [place] % (Auto) 10.3 H, Eos % (Auto) 0.9, Baso % (Auto) 0.7, Absolute Neuts (auto) 6.1, Nucleated RBC % 0 01/23/20 04:35: PT 15.5 H, INR 1.3 01/23/20 04:35: Sodium 133 L, Potassium 5.1, Chloride 96 L, Carbon Dioxide 32.0, Anion Gap 5, BUN 45 H, Creatinine 2.95 H, Est GFR (MDRD) Af Amer 28 L, Est GFR (MDRD) Non-Af 23 L, BUN/Creatinine Ratio 15.3, Glucose 361 H, Calcium 8.1 L, Phosphorus 4.1, Magnesium 1.9, Total Bilirubin 0.50 01/23/20 04:35: Troponin I 0.085 H Rhythm: EKG: ECHO: Stress Test: Cardiac Cath: PCI: CT Surgery: Holter monitor: EPS: PPM: CXR: Chest CT Scan:
--- NOTE | 2020-01-23 16:02 | PCM.CONS.C ---
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 plan will be a flutter/a fib ablation with upgrade of ICD/Biv pacer Past Medical History Allergies/Adverse Reactions: Allergies diltiazem Allergy (Verified 01/22/20 21:49) LOWER LEG SWELLING tamsulosin [From Flomax] Allergy (Verified 01/22/20 21:49) Shortness of breath/muscle weakness atorvastatin calcium [From Lipitor] Adverse Reaction (Verified 01/22/20 21:49) MUSCLE WEAKNESS Home Medications: Ambulatory Orders Medication Instructions Recorded Amiodarone HCl [Cordarone] 200 mg PO DAILY 03/13/19 Loratadine 10 mg PO DAILY 03/13/19 Pantoprazole Sodium [Protonix] 40 mg PO BID 03/13/19 Ranolazine [Ranolazine ER] 500 mg PO BID 03/13/19 Insulin NPH Human Isophane 22 unit SQ BREAKFAST 04/20/19 [Novolin N] Insulin NPH Human Isophane 22 unit SQ QHS 06/14/19 [Humulin N] clopidogrel 75 mg tablet 75 mg PO DAILY #30 tab 06/23/19 Nitroglycerin (INPATIENT USE) 0.4 mg SUBLINGUAL Q5M PRN #30 tab 08/15/19 [Nitrostat] pravastatin 40 mg tablet 40 mg PO QHS #90 tab 09/15/19 Aspirin [Aspirin, Baby] 81 mg PO DAILY@0800 10/20/19 apixaban 2.5 mg tablet 2.5 mg PO BID #60 tab 12/07/19 furosemide 80 mg tablet 40 mg PO DAILY tab 01/03/20 Carvedilol 25 mg PO BID PRN PRN 01/05/20 metolazone 2.5 mg tablet 2.5 mg PO X1 01/11/20 Spironolactone 25 mg PO DAILY 01/22/20 Past Medical History (Chronic Problems): Chronic Problems (Last Reviewed 01/11/20 @ 16:45 by Yuliet FORD, PA) Stage 3 chronic kidney disease (Chronic) Essential hypertension (Chronic) senior care current use of 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) Nonsustained ventricular tachycardia (Chronic) Chronic systolic CHF (congestive heart failure) (Chronic) Presence of implantable cardioverter-defibrillator (ICD) (Chronic) 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) History of coronary artery stent placement (Chronic 06/08/16) SARA-RCA 06/15/2011, SARA-OM1 06/30/2011, SARA-LAD 08/20/2014, SARA-Prox- RCA 06/08/2016 Atherosclerosis of coronary artery of [place] heart without angina pectoris (Chronic) SARA-RCA 06/15/2011, SRAA-OM1 06/30/2011, SARA-LAD 08/20/2014, SARA-Prox- RCA 06/08/2016 Paroxysmal atrial fibrillation (Chronic) Hyperlipidemia (Chronic) Type II diabetes mellitus (Chronic) Cardiomyopathy, ischemic (Chronic) Surgical History: herniorrhaphy, total knee arthroplasty - ACLS repair, - - s/p stents, AICD s/p cardioversion, s/p wrist and elbow surgery Psychiatric History: No pertinent psych hx - *Family History Maternal Family History: Family History (Last Reviewed 01/11/20 @ 16:45 by Yuliet FORD, PA) Brother Sudden cardiac History Items: Hypertension Paternal Family History: Family History (Last Reviewed 01/11/20 @ 16:45 by Yuliet FORD, PA) Brother Sudden cardiac History Items: Unknown Sibling Family History: Family History (Last Reviewed 01/11/20 @ 16:45 by Yuliet FORD, PA) Brother Sudden cardiac History Items: Heart Disease Smoking Status: Former smoker Objective: Vital Signs Temp Pulse Resp BP Pulse Ox 98.9 F 100 21 H 103/75 94 01/23/20 07:00 01/23/20 12:00 01/23/20 07:00 01/23/20 07:00 01/23/20 07:00 Oxygen Flow Rate (L/min) 2 Oxygen Delivery Method Nasal Cannula Weight: 189 lb 6.033 oz Body Mass Index (BMI) 27.9 Finger Stick Blood Glucose 105 Intake and Output for Last 24 Hours 01/21/20 01/22/20 01/23/20 23:59 23:59 23:59 Intake Total 391 / 391 200 / 200 Output Total 125 / 125 835 / 835 Balance 266 / 266 -635 / -635 General: Awake, Alert, Oriented x 3 HEENT: PERRL, EOMI, Sclera Non Icteric Neck: Supple, Good ROM, No Lymph Node Enlargement Lungs: Clear to auscultation, Rales - Left Base Cardiovascular: Regular Rhythm, Normal S1, Normal S2, No Murmurs, No Rubs, No Gallops Vascular: No Carotid Bruits, Normal Femoral Pulses, Normal Radial Pulses, Normal Dorsalis Pedal Pulse, Normal Posterior Tibial Pulses Abdomen: Bowel Sounds Present, Soft, Non Tender, No HSM, No Organomegaly Extremities: No Cyanosis, No Clubbing, No edema Neurological: No Focal Motor or Sensory Deficit 01/22/20 21:45: WBC 10.5, RBC 6.23 H, Hgb 16.1, Hct 52.3, MCV 83.9, MCH 25.8 L, MCHC 30.8 L, Plt Count 356, MPV 9.6, Immature Gran % (Auto) 2.500 H, Neut % (Auto) 73.8 H, Lymph % (Auto) 11.1 L, [place] % (Auto) 10.4 H, Eos % (Auto) 1.2, Baso % (Auto) 1.0, Absolute Neuts (auto) 7.8 H, Nucleated RBC % 0 01/22/20 21:45: PT 14.6, INR 1.2, APTT 28.5 01/22/20 21:45: Sodium 130 L, Potassium 4.7, Chloride 95 L, Carbon Dioxide 29.0, Anion Gap 6, BUN 44 H, Creatinine 3.27 H, Est GFR (MDRD) Af Amer 24 L, Est GFR (MDRD) Non-Af 20 L, BUN/Creatinine Ratio 13.5, Glucose 463 H*, Calcium 9.0, Troponin I 0.028 01/22/20 21:48: B-Natriuretic Peptide 362.5 H 01/23/20 00:55: Troponin I 0.078 H 01/23/20 04:35: WBC 8.0, RBC 5.33, Hgb 14.0, Hct 44.6, MCV 83.7, MCH 26.3 L, MCHC 31.4 L, Plt Count 269, MPV 9.4, Immature Gran % (Auto) 1.600 H, Neut % (Auto) 76.2 H, Lymph % (Auto) 10.3 L, [place] % (Auto) 10.3 H, Eos % (Auto) 0.9, Baso % (Auto) 0.7, Absolute Neuts (auto) 6.1, Nucleated RBC % 0 01/23/20 04:35: PT 15.5 H, INR 1.3 01/23/20 04:35: Sodium 133 L, Potassium 5.1, Chloride 96 L, Carbon Dioxide 32.0, Anion Gap 5, BUN 45 H, Creatinine 2.95 H, Est GFR (MDRD) Af Amer 28 L, Est GFR (MDRD) Non-Af 23 L, BUN/Creatinine Ratio 15.3, Glucose 361 H, Calcium 8.1 L, Phosphorus 4.1, Magnesium 1.9, Total Bilirubin 0.50 01/23/20 04:35: Troponin I 0.085 H Rhythm: EKG: ECHO: Stress Test: Cardiac Cath: PCI: CT Surgery: Holter monitor: EPS: PPM: CXR: Chest CT Scan: Assessment/Plan High risk patient with CAD/M.I/Severe ischemic cardiomyopathy,CKD with elevated creatinine has aflutter/ a fib dosage of Eliquis to be based on renal function resumed oral coreg treated medically for acute on chronic Systolic heart failue Discussed the case with the primary denture technician
[2020-01-23 16:45] LABS: Bedside Glucose 369 mg/dL (70-110)
--- NOTE | 2020-01-23 20:02 | CPS ---
PATIENT HAS EAR PROBE IN PLACE
[2020-01-23] MEDS: Pantoprazole Sodium 40 MG Tablet PO (21:57)
[2020-01-23] MEDS: Pravastatin 40 MG Tablet PO (21:57)
[2020-01-23] MEDS: APIXABAN 2.5 MG TABLET PO (21:57)
[2020-01-23] MEDS: Ranolazine 500 MG Tablet PO (21:57)
[2020-01-23] MEDS: Insulin NPH Human 100 UNITS/ML PEN 22 UNITS SC (21:58)
[2020-01-23 22:15] LABS: Bedside Glucose 358 mg/dL (70-110)
[2020-01-24] VITALS (21 sets, daily range): BP systolic 108–166; BP diastolic 69–114; PULSE 79–99; RESP 18–26; TEMP 36.3–36.7; O2SAT 92–97
--- NOTE | 2020-01-24 00:30 | NURSING ---
Bedside report given to Sheldon Daniels RN. who is assuming care of pt. at this time.
--- NOTE | 2020-01-24 01:24 | CPS ---
PATIENT REFUSED BIPAP
[2020-01-24 06:28] LABS: Hematocrit 44.8 % (40-54); Hemoglobin 13.7 g/dL (13.0-16.5); Mean Corp Hgb Conc 30.6 g/dL (32-36); Mean Corpuscular Hgb 25.8 pg (27.0-32.0); Mean Corpuscular Volume 84.2 fL (80-94); Mean Platelet Vol. 9.1 fl (6.2-12.0); Platelet Count 254 K/mm3 (150-450); RBC Distribution Width CV 19.7 % (11.6-14.6); RBC Distribution Width SD 58.4 fl (35.1-43.9); Red Blood Count 5.32 M/mm3 (4.6-6.2); White Blood Count 8.2 K/mm3 (4.4-11.0)
[2020-01-24 06:53] LABS: Anion Gap 8 (5-15); BUN 46 mg/dL (7-18); BUN/Creat Ratio 20.8 RATIO (10-20); Calcium,Total 8.6 mg/dL (8.5-10.1); Chloride 98 mmol/L (98-107); Creatinine, Serum 2.21 mg/dL (0.70-1.30); EST Glomerular Filtration Rate 32 mL/min (>60); Est Glom Filt Rate - Afr Amer 38 mL/min (>60); Estimated Creatinine Clearance 32.44 ml/min; Glucose 195 mg/dL (74-106); Magnesium 1.9 mg/dL (1.6-2.6); Potassium 3.7 mmol/L (3.5-5.1); Sodium Level 133 mmol/L (136-145)
[2020-01-24] MEDS: Aspirin 81 MG TAB.CHEW PO (07:47)
[2020-01-24] MEDS: Insulin Lispro 100 UNIT/ML INSULN.PEN SC ×3 (07:48→16:35)
[2020-01-24] MEDS: Insulin NPH Human 100 UNITS/ML PEN 22 UNITS SC (07:48)
[2020-01-24 07:55] LABS: Bedside Glucose 208 mg/dL (70-110)
--- NOTE | 2020-01-24 09:27 | PN.CARD_ITS ---
Subjectve: The patient states he is feeling better at this time. Objective: Vital Signs Temp Pulse Resp BP Pulse Ox 98.0 F 91 20 H 120/81 H 93 01/24/20 08:00 01/24/20 08:00 01/24/20 08:00 01/24/20 08:00 01/24/20 08:00 Oxygen Flow Rate (L/min) 2 Oxygen Delivery Method Room Air Weight: 186 lb 1.122 oz Body Mass Index (BMI) 27.9 Finger Stick Blood Glucose 105 Intake and Output for Last 24 Hours 01/22/20 01/23/20 01/24/20 23:59 23:59 23:59 Intake Total 391 / 391 819.25 / 835.95 150.3 / 150.3 Output Total 125 / 125 1660 / 1660 Balance 266 / 266 -840.75 / -824.05 150.3 / 150.3 General: Awake, Alert, Oriented x 3, Cooperative HEENT: Atraumatic, Normocephalic, PERRL, EOMI, Sclera Non Icteric Neck: Supple, Good ROM, No JVD Lungs: Diminished Right Base Cardiovascular: Irregular Rhythm, Normal S1, Normal S2 Abdomen: Bowel Sounds Present, Soft Extremities: No edema Neurological: No Focal Motor or Sensory Deficit Psych/Mental Status: Appropriate 01/24/20 05:20: WBC 8.2, RBC 5.32, Hgb 13.7, Hct 44.8, MCV 84.2, MCH 25.8 L, MCHC 30.6 L, Plt Count 254, MPV 9.1 01/24/20 05:20: Sodium 133 L, Potassium 3.7, Chloride 98, Carbon Dioxide 27.0, Anion Gap 8, BUN 46 H, Creatinine 2.21 H, Est GFR (MDRD) Af Amer 38 L, Est GFR (MDRD) Non-Af 32 L, BUN/Creatinine Ratio 20.8 H, Glucose 195 H, Calcium 8.6, Magnesium 1.9 Rhythm: Atrial fibrillation/flutter Medical Necessity - Tobacco Use Smoking Status: Former smoker Assessment/Plan 1. Acute on chronic systolic mediated CHF The patient has had recurrent acute on chronic systolic mediated CHF. At the moment he appears to be improved based on symptoms and examination. He is going to need to continue his combined medical regimen. Also he is pending an upcoming electrophysiology appointment at [facility] on 02-06-2020 for consideration for AV node ablation to assist with his atrial dysrhythmia/rapid rates which may be contributing to his recurrent acute on chronic systolic mediated CHF. 2. CAD status post PCI The patient has an extensive underlying history of CAD and PCI. At the moment he appears to be without recurrent acute coronary syndrome. He will need to continue medical management. 3. Ischemic mediated cardiomyopathy The patient does have an ischemic mediated cardiomyopathy. He has been treated medically. He is undergone evaluation for CAD and revascularization therapy in the past. He has an ICD in place. 4. Paroxysmal atrial fibrillation/flutter He appears to remain in his atrial dysrhythmias. His rapid rates may be contributing to his recurrent acute on chronic systolic mediated CHF events. He is continuing medical management to assist with rate control with his beta- blockers. He had been placed on IV amiodarone which appeared to assist with his rate control and he may be changed to oral amiodarone-at least for the time being pending further electrophysiology evaluation. If he remains symptomatically improved/stable on his medications then perhaps he can be released home to keep his outpatient electrophysiology appointment. However if his atrial dysrhythmia is recurrent and still challenging to control and contributing to recurrent acute on chronic systolic mediated CHF that he may need to remain in the hospital and be transferred to the tertiary care center for further EP evaluation. 5. ICD He does have an ICD in place. Depending upon his EP evaluation there may be consideration that this may need to be upgraded to a dual-chamber device or a biventricular ICD/ETHYLBENZENE CONVERTER OPERATOR device. 6. Hyperlipidemia He will continue medical therapy. 7. Hypertension His blood pressure need to be monitored and his medications were adjusted. 8. Diabetes mellitus He will continue medical therapy per internal medicine. 9. Chronic renal insufficiency His creatinine level appears to be improving as his cardiovascular findings/volume status, under better control. They will need to be monitored. Overall, from a cardiac standpoint, the plan at the moment is to adjust his medications, follow his status, and make subsequent recommendations as to whether or not he can continue as an outpatient versus needing to remain in the hospital as an inpatient for further evaluation and care. This note was generated using a voice recognition system and there may be incorrect words, spelling or punctuation that were not noted when reviewing the office note prior to saving.
[2020-01-24] MEDS: Carvedilol 25 MG Tablet PO ×2 (09:37→21:01)
[2020-01-24] MEDS: Pantoprazole Sodium 40 MG Tablet PO ×2 (09:37→21:01)
[2020-01-24] MEDS: Spironolactone 50 MG Tablet 25 MG PO (09:37)
[2020-01-24] MEDS: Clopidogrel Bisulfate 75 MG Tablet PO (09:38)
[2020-01-24] MEDS: Ranolazine 500 MG Tablet PO ×2 (09:38→21:01)
[2020-01-24] MEDS: APIXABAN 2.5 MG TABLET PO ×2 (09:38→21:01)
[2020-01-24] MEDS: Loratadine 10 MG Tablet PO (09:38)
[2020-01-24] MEDS: Furosemide 40 MG Tablet PO (09:38)
[2020-01-24] MEDS: Amiodarone 200 MG Tablet PO ×3 (10:09→21:02)
[2020-01-24 11:11] LABS: Bedside Glucose 346 mg/dL (70-110)
--- NOTE | 2020-01-24 11:40 | PCM.PN.HOSP ---
Patient Problems: Active and Suspected Problems (Last Reviewed 01/11/20 @ 16:45 by Yuliet Nayak PA, PA) Pulmonary edema (Acute) Chest pain (Acute) STEMI (ST elevation myocardial infarction) (Acute) Reason for Visit: Sheldon taylor with RVR Congestive heart failure Subjective: Patient is a 69-year-old gentleman with multiple comorbidities including congestive heart failure with reduced ejection fraction, paroxysmal AMorgan taylor diabetes mellitus type 2 who presented with chest pain. Patient was found to have slightly elevated troponin. EKG obtained on admission demonstrated Sheldon taylor with aberrancy started on amiodarone drip admitted to the intensive care unit for subsequent management Once bed from the ICU to the progressive care unit on amiodarone drip. Case discussed with cardiology plan is to switch to oral amiodarone Objective: GENERAL: cooperative HEENT: Atraumatic; EYES; Anicteric, Normal Conjunctiva NECK; supple, normal thyroid, RESPIRATORY: Diminished to auscultation CARDIOVASCULAR: Irregular S1-S2 GI: soft, normoactive bowel sounds, : No Renal angle tenderness; EXTREMITIES: No edema, no clubbing, MUSCULOSKELETAL: no muscle waisting NEURO: Awake; no lateralizing signs. SKIN: No Rash PSYCH; Flat affect Vitals/I&O's: Vital Signs Temp Pulse Resp BP Pulse Ox 98.0 F 82 20 H 127/109 H 94 01/24/20 11:00 01/24/20 11:00 01/24/20 11:00 01/24/20 11:00 01/24/20 11:00 Oxygen Flow Rate (L/min) 2 Oxygen Delivery Method Room Air Weight: 84.4 kg Body Mass Index (BMI) 27.9 Finger Stick Blood Glucose 105 Intake and Output for Last 24 Hours 01/22/20 01/23/20 01/24/20 23:59 23:59 23:59 Intake Total 391 / 391 819.25 / 835.95 623.3 / 623.3 Output Total 125 / 125 1660 / 1660 300 / 300 Balance 266 / 266 -840.75 / -824.05 323.3 / 323.3 Laboratory Results 01/23/20 13:29: POC Glucose 234 H 01/23/20 16:42: POC Glucose 369 H 01/23/20 21:49: POC Glucose 358 H 01/24/20 05:20: WBC 8.2, RBC 5.32, Hgb 13.7, Hct 44.8, MCV 84.2, MCH 25.8 L, MCHC 30.6 L, RDW Std Deviation 58.4 H, RDW Coeff of [place] 19.7 H, Plt Count 254, MPV 9.1 01/24/20 05:20: Sodium 133 L, Potassium 3.7, Chloride 98, Carbon Dioxide 27.0, Anion Gap 8, BUN 46 H, Creatinine 2.21 H, Estim Creat Clear Calc 32.44, Est GFR (MDRD) Af Amer 38 L, Est GFR (MDRD) Non-Af 32 L, BUN/Creatinine Ratio 20.8 H, Glucose 195 H, Calcium 8.6, Magnesium 1.9 01/24/20 07:15: POC Glucose 208 H 01/24/20 11:02: POC Glucose 346 H Current Medications Amiodarone HCl (Amiodarone 200 Mg Tablet) 200 mg PO TID [facility] Last Admin: 01/24/20 10:09 Dose: 200 mg Documented by: Apixaban (Apixaban 2.5 Mg Tablet) 2.5 mg PO BID [facility] Last Admin: 01/24/20 09:38 Dose: 2.5 mg Documented by: Aspirin (Aspirin 81 Mg Tab.Chew) 81 mg PO DAILY@0800 [facility] Last Admin: 01/24/20 07:47 Dose: 81 mg Documented by: Carvedilol (Carvedilol 25 Mg Tablet) 25 mg PO BID [facility] Last Admin: 01/24/20 09:37 Dose: 25 mg Documented by: Clopidogrel Bisulfate (Clopidogrel Bisulfate 75 Mg Tablet) 75 mg PO DAILY [facility] Last Admin: 01/24/20 09:38 Dose: 75 mg Documented by: Furosemide (Furosemide 40 Mg Tablet) 40 mg PO DAILY [facility] Last Admin: 01/24/20 09:38 Dose: 40 mg Documented by: Sodium Chloride () 250 mls @ 15 mls/hr IV .[id number] PRN PRN Reason: Saline Flush Sodium Chloride () 250 mls @ 15 mls/hr IV .[id number] PRN PRN Reason: Additional IVPB Infusion Insulin Human Lispro (Insulin Lispro 100 Unit/Ml Insuln.Pen) 0 unit SC [facility]; Protocol Last Admin: 01/24/20 11:04 Dose: 5 u Documented by: Insulin Human NPH (Insulin Nph Human 100 Units/Ml Pen) 30 units SC BREAKFAST [facility] Insulin Human NPH (Insulin Nph Human 100 Units/Ml Pen) 30 units SC QHS [facility] Loratadine (Loratadine 10 Mg Tablet) 10 mg PO DAILY [facility] Last Admin: 01/24/20 09:38 Dose: 10 mg Documented by: Metolazone (Metolazone 2.5 Mg Tablet) 2.5 mg PO Tu@1000 [facility] Morphine Sulfate (Morphine 2 Mg/Ml Syringe) 2 mg IV Q3H PRN PRN PRN Reason: Pain Score 6-10 Nitroglycerin (Nitroglycerin (Inpatient Use) 0.4 Mg Tab.Subl) 0.4 mg SUBLINGUAL Q5M PRN PRN Reason: CARDIAC/CHEST PAIN Ondansetron HCl (Ondansetron 4 Mg/2 Ml Vial) 4 mg IV Q8H PRN PRN PRN Reason: NAUSEA/VOMITING Pantoprazole Sodium (Pantoprazole Sodium 40 Mg Tablet) 40 mg PO BID [facility] Last Admin: 01/24/20 09:37 Dose: 40 mg Documented by: Pravastatin Sodium (Pravastatin 40 Mg Tablet) 40 mg PO QHS [facility] Last Admin: 01/23/20 21:57 Dose: 40 mg Documented by: Ranolazine (Ranolazine 500 Mg Tablet) 500 mg PO BID [facility] Last Admin: 01/24/20 09:38 Dose: 500 mg Documented by: Sodium Chloride (0.9% Saline Lock 10 Ml Syringe) 10 - 40 ml IV UD PRN PRN Reason: SALINE FLUSH Last Admin: 01/23/20 01:10 Dose: 10 ml Documented by: Sodium Chloride (0.9% Saline Lock 10 Ml Syringe) 10 - 40 ml IV UD PRN PRN Reason: SALINE FLUSH Spironolactone (Spironolactone 50 Mg Tablet) 25 mg PO DAILY [facility] Last Admin: 01/24/20 09:37 Dose: 25 mg Documented by: STROKE Vital Signs/Narrative: Vital Signs Temp Pulse Resp BP Pulse Ox 01/24/20 11:00 98.0 F 82 20 H 127/109 H 94 01/24/20 10:48 94 01/24/20 10:00 98.0 F 98 24 H 112/92 H 95 01/24/20 09:00 98.0 F 99 26 H 108/93 H 94 10/21/20 08:00 98.0 F 91 20 H 120/81 H 93 Medical Necessity - Tobacco Use Smoking Status: Former smoker Assessment/Plan All Active Problems (Last Reviewed 01/11/20 @ 16:45 by Yuliet Nayak PA, PA) Pulmonary edema (Acute) Chest pain (Acute) STEMI (ST elevation myocardial infarction) (Acute) Acute kidney injury superimposed on chronic kidney disease (Resolved) Chest pain (Resolved) Patient is a 69-year-old gentleman with multiple comorbidities including congestive heart failure with reduced ejection fraction, paroxysmal A. fib diabetes mellitus type 2 who presented with chest pain. Patient was found to have slightly elevated troponin. EKG obtained on admission demonstrated A. fib with aberrancy started on amiodarone drip admitted to the intensive care unit for subsequent management 1. A. fib with RVR ?EKG obtained on admission demonstrated A. fib with aberrancy with rapid ventricular response. Started on amiodarone drip currently being managed in the intensive care unit. Patient is on systemic anticoagulation with Eliquis this was held on admission pending any intervention by cardiology -Patient has been seen in consultation by Dr. Garcia his notes and recommendations reviewed. -01/24/2020: On Eliquis amiodarone 2. Acute on chronic congestive heart failure ?With reduced ejection fraction EF of 35%. remains on diuretics. 3. Coronary artery disease with previous PCI ?Patient presented with chest pain with slightly elevated troponin. Initially managed with nitroglycerin drip as well as serial monitoring of cardiac enzymes with consultation placed to cardiology. Patient chest pain has since resolved. 4. Cardiomyopathy ?With EF of 35%. Patient apparently has an ICD in place. As stated above patient has been seen in consultation by cardiology and Dr. Garcia recommended for consideration to be given to patient ICD being upgraded to a dual-chamber/biventricular ICD/FAMILY PRACTICE MD. 5. Hypertension - Blood pressure controlled, home medications continued with dose adjustment as needed 6. Diabetes mellitus type II -Uncontrolled with hyperglycemia, placed on long acting insulin, Accu-Cheks a.c. and at bedtime and covered with sliding scale insulin 7. Chronic kidney disease stage IV ?Secondary to diabetic nephropathy patient kidney function appears to be at baseline. Had previously been seen in consultation by nephrology 8. DVT prophylaxis ?Patient on systemic anticoagulation with Eliquis which is currently being held -01/24/2020: Heparin discontinued patient started on Eliquis Inpatient E&M: 27643 Subs Hosp L2
--- NOTE | 2020-01-24 14:52 | CASEMGMT ---
Patient has a Healthcare Power of Stage Electrician and Healthcare Living Will on file at [facility]. His Healthcare Power of Stage Electrician is his daughter, Cristy. Mamta GARCIA MSW
[2020-01-24 16:40] LABS: Bedside Glucose 339 mg/dL (70-110)
[2020-01-24] MEDS: Insulin NPH Human 100 UNITS/ML PEN 30 UNITS SC (21:01)
[2020-01-24] MEDS: Pravastatin 40 MG Tablet PO (21:01)
[2020-01-24] MEDS: 0.9% Saline Lock 10 ML Syringe IV (21:07)
[2020-01-24 21:15] LABS: Bedside Glucose 460 mg/dL (70-110)
[2020-01-24 22:03] LABS: Glucose 492 mg/dL (74-106)
[2020-01-24] MEDS: Insulin Lispro 100 UNIT/ML INSULN.PEN 20 UNIT SC (22:35)
[2020-01-25] VITALS (8 sets, daily range): BP systolic 122–138; BP diastolic 72–76; PULSE 75–89; RESP 16; TEMP 36.4; O2SAT 95–100
[2020-01-25 05:08] LABS: Bedside Glucose 288 mg/dL (70-110)
[2020-01-25] MEDS: Amiodarone 200 MG Tablet PO ×2 (05:37→13:03)
[2020-01-25 06:30] LABS: Hematocrit 46.1 % (40-54); Hemoglobin 13.8 g/dL (13.0-16.5); Mean Corp Hgb Conc 29.9 g/dL (32-36); Mean Platelet Vol. 9.5 fl (6.2-12.0); Platelet Count 249 K/mm3 (150-450); RBC Distribution Width SD 61.1 fl (35.1-43.9); White Blood Count 7.6 K/mm3 (4.4-11.0)
[2020-01-25 06:47] LABS: Anion Gap 9 (5-15); BUN 46 mg/dL (7-18); BUN/Creat Ratio 19.7 RATIO (10-20); Calcium,Total 8.4 mg/dL (8.5-10.1); Chloride 98 mmol/L (98-107); Creatinine, Serum 2.34 mg/dL (0.70-1.30); EST Glomerular Filtration Rate 30 mL/min (>60); Est Glom Filt Rate - Afr Amer 36 mL/min (>60); Estimated Creatinine Clearance 30.63 ml/min; Glucose 201 mg/dL (74-106); Potassium 3.9 mmol/L (3.5-5.1); Sodium Level 134 mmol/L (136-145)
[2020-01-25 07:36] LABS: Bedside Glucose 187 mg/dL (70-110)
[2020-01-25] MEDS: Insulin NPH Human 100 UNITS/ML PEN 30 UNITS SC (07:51)
[2020-01-25] MEDS: Aspirin 81 MG TAB.CHEW PO (07:51)
[2020-01-25] MEDS: Insulin Lispro 100 UNIT/ML INSULN.PEN SC ×3 (07:52→16:25)
--- NOTE | 2020-01-25 07:56 | PCM.PN.HOSP ---
Patient Problems: Active and Suspected Problems (Last Reviewed 01/11/20 @ 16:45 by Yuliet Nayak PA, PA) Pulmonary edema (Acute) Chest pain (Acute) STEMI (ST elevation myocardial infarction) (Acute) Objective: GENERAL: cooperative HEENT: Atraumatic; EYES; Anicteric, Normal Conjunctiva NECK; supple, normal thyroid, RESPIRATORY: Diminished to auscultation CARDIOVASCULAR: Irregular S1-S2 GI: soft, normoactive bowel sounds, : No Renal angle tenderness; EXTREMITIES: No edema, no clubbing, MUSCULOSKELETAL: no muscle waisting NEURO: Awake; no lateralizing signs. SKIN: No Rash PSYCH; Flat affect Vitals/I&O's: Vital Signs Temp Pulse Resp BP Pulse Ox 97.5 F L 83 16 125/73 H 96 01/25/20 03:10 01/25/20 06:44 01/25/20 03:10 01/25/20 03:10 01/25/20 07:30 Oxygen Flow Rate (L/min) 2 Oxygen Delivery Method Room Air Weight: 84.4 kg Body Mass Index (BMI) 27.9 Finger Stick Blood Glucose 105 Intake and Output for Last 24 Hours 01/23/20 01/24/20 01/25/20 23:59 23:59 23:59 Intake Total 819.25 / 835.95 1023.3 / 1243.3 440 / 440 Output Total 1660 / 1660 475 / 1375 1100 / 1100 Balance -840.75 / -824.05 548.3 / -131.7 -660 / -660 Laboratory Results 01/24/20 11:02: POC Glucose 346 H 01/24/20 16:34: POC Glucose 339 H 01/24/20 20:58: POC Glucose 460 H* 01/24/20 21:23: Glucose 492 H* 01/25/20 03:22: POC Glucose 288 H 01/25/20 05:18: WBC 7.6, RBC 5.30, Hgb 13.8, Hct 46.1, MCV 87.0, MCH 26.0 L, MCHC 29.9 L, RDW Std Deviation 61.1 H, RDW Coeff of [place] 20.0 H, Plt Count 249, MPV 9.5 01/25/20 05:18: Sodium 134 L, Potassium 3.9, Chloride 98, Carbon Dioxide 27.0, Anion Gap 9, BUN 46 H, Creatinine 2.34 H, Estim Creat Clear Calc 30.63, Est GFR (MDRD) Af Amer 36 L, Est GFR (MDRD) Non-Af 30 L, BUN/Creatinine Ratio 19.7, Glucose 201 H, Calcium 8.4 L 01/25/20 07:14: POC Glucose 187 H Current Medications Amiodarone HCl (Amiodarone 200 Mg Tablet) 200 mg PO TID [facility] Last Admin: 01/25/20 05:37 Dose: 200 mg Documented by: Apixaban (Apixaban 2.5 Mg Tablet) 2.5 mg PO BID [facility] Last Admin: 01/24/20 21:01 Dose: 2.5 mg Documented by: Aspirin (Aspirin 81 Mg Tab.Chew) 81 mg PO DAILY@0800 [facility] Last Admin: 01/25/20 07:51 Dose: 81 mg Documented by: Carvedilol (Carvedilol 25 Mg Tablet) 25 mg PO BID [facility] Last Admin: 01/24/20 21:01 Dose: 25 mg Documented by: Clopidogrel Bisulfate (Clopidogrel Bisulfate 75 Mg Tablet) 75 mg PO DAILY [facility] Last Admin: 01/24/20 09:38 Dose: 75 mg Documented by: Furosemide (Furosemide 40 Mg Tablet) 40 mg PO DAILY [facility] Last Admin: 01/24/20 09:38 Dose: 40 mg Documented by: Sodium Chloride () 250 mls @ 15 mls/hr IV .[id number] PRN PRN Reason: Saline Flush Sodium Chloride () 250 mls @ 15 mls/hr IV .[id number] PRN PRN Reason: Additional IVPB Infusion Insulin Human Lispro (Insulin Lispro 100 Unit/Ml Insuln.Pen) 0 unit SC ACHS [facility]; Protocol Last Admin: 01/25/20 07:52 Dose: 1 u Documented by: Insulin Human NPH (Insulin Nph Human 100 Units/Ml Pen) 30 units SC BREAKFAST [facility] Last Admin: 01/25/20 07:51 Dose: 30 u Documented by: Insulin Human NPH (Insulin Nph Human 100 Units/Ml Pen) 30 units SC QHS [facility] Last Admin: 01/24/20 21:01 Dose: 30 unit Documented by: Loratadine (Loratadine 10 Mg Tablet) 10 mg PO DAILY [facility] Last Admin: 01/24/20 09:38 Dose: 10 mg Documented by: Metolazone (Metolazone 2.5 Mg Tablet) 2.5 mg PO Tu@1000 [facility] Morphine Sulfate (Morphine 2 Mg/Ml Syringe) 2 mg IV Q3H PRN PRN PRN Reason: Pain Score 6-10 Nitroglycerin (Nitroglycerin (Inpatient Use) 0.4 Mg Tab.Subl) 0.4 mg SUBLINGUAL Q5M PRN PRN Reason: CARDIAC/CHEST PAIN Ondansetron HCl (Ondansetron 4 Mg/2 Ml Vial) 4 mg IV Q8H PRN PRN PRN Reason: NAUSEA/VOMITING Pantoprazole Sodium (Pantoprazole Sodium 40 Mg Tablet) 40 mg PO BID [facility] Last Admin: 01/24/20 21:01 Dose: 40 mg Documented by: Pravastatin Sodium (Pravastatin 40 Mg Tablet) 40 mg PO QHS [facility] Last Admin: 01/24/20 21:01 Dose: 40 mg Documented by: Ranolazine (Ranolazine 500 Mg Tablet) 500 mg PO BID [facility] Last Admin: 01/24/20 21:01 Dose: 500 mg Documented by: Sodium Chloride (0.9% Saline Lock 10 Ml Syringe) 10 - 40 ml IV UD PRN PRN Reason: SALINE FLUSH Last Admin: 01/24/20 21:07 Dose: 10 ml Documented by: Spironolactone (Spironolactone 50 Mg Tablet) 25 mg PO DAILY [facility] Last Admin: 01/24/20 09:37 Dose: 25 mg Documented by: STROKE Vital Signs/Narrative: Vital Signs Pulse Pulse Ox 01/25/20 07:30 96 01/25/20 06:44 83 Medical Necessity - Tobacco Use Smoking Status: Former smoker Assessment/Plan All Active Problems (Last Reviewed 01/11/20 @ 16:45 by Yuliet FORD, PA) Pulmonary edema (Acute) Chest pain (Acute) STEMI (ST elevation myocardial infarction) (Acute) Acute kidney injury superimposed on chronic kidney disease (Resolved) Chest pain (Resolved) Patient is a 69-year-old gentleman with multiple comorbidities including congestive heart failure with reduced ejection fraction, paroxysmal A. fib diabetes mellitus type 2 who presented with chest pain. Patient was found to have slightly elevated troponin. EKG obtained on admission demonstrated A. fib with aberrancy started on amiodarone drip admitted to the intensive care unit for subsequent management 1. A. fib with RVR ?EKG obtained on admission demonstrated A. fib with aberrancy with rapid ventricular response. Started on amiodarone drip currently being managed in the intensive care unit. Patient is on systemic anticoagulation with Eliquis this was held on admission pending any intervention by cardiology -Patient has been seen in consultation by Dr. Garcia his notes and recommendations reviewed. -01/24/2020: On Eliquis amiodarone 2. Acute on chronic congestive heart failure ?With reduced ejection fraction EF of 35%. remains on diuretics. 3. Coronary artery disease with previous PCI ?Patient presented with chest pain with slightly elevated troponin. Initially managed with nitroglycerin drip as well as serial monitoring of cardiac enzymes with consultation placed to cardiology. Patient chest pain has since resolved. 4. Cardiomyopathy ?With EF of 35%. Patient apparently has an ICD in place. As stated above patient has been seen in consultation by cardiology and Dr. Garcia recommended for consideration to be given to patient ICD being upgraded to a dual-chamber/biventricular ICD/LAP LAYER. 5. Hypertension - Blood pressure controlled, home medications continued with dose adjustment as needed 6. Diabetes mellitus type II -Uncontrolled with hyperglycemia, placed on long acting insulin, Accu-Cheks a.c. and at bedtime and covered with sliding scale insulin 7. Chronic kidney disease stage IV ?Secondary to diabetic nephropathy patient kidney function appears to be at baseline. Had previously been seen in consultation by nephrology 8. DVT prophylaxis ?Patient on systemic anticoagulation with Eliquis which is currently being held -01/24/2020: Heparin discontinued patient started on Eliquis
[2020-01-25] MEDS: Spironolactone 50 MG Tablet 25 MG PO (09:31)
[2020-01-25] MEDS: Loratadine 10 MG Tablet PO (09:32)
[2020-01-25] MEDS: Pantoprazole Sodium 40 MG Tablet PO (09:32)
[2020-01-25] MEDS: Clopidogrel Bisulfate 75 MG Tablet PO (09:32)
[2020-01-25] MEDS: Carvedilol 25 MG Tablet PO (09:32)
[2020-01-25] MEDS: Furosemide 40 MG Tablet PO (09:32)
[2020-01-25] MEDS: Ranolazine 500 MG Tablet PO (09:32)
[2020-01-25] MEDS: APIXABAN 2.5 MG TABLET PO (09:32)
--- NOTE | 2020-01-25 09:38 | PN.CARD_ITS ---
Subjectve: The patient is awake and alert. He states he feels markedly improved. Objective: Vital Signs Temp Pulse Resp BP Pulse Ox 97.6 F L 89 16 122/72 H 100 01/25/20 09:28 01/25/20 09:28 01/25/20 09:28 01/25/20 09:28 01/25/20 09:28 Oxygen Flow Rate (L/min) 2 Oxygen Delivery Method Room Air Weight: 186 lb 1.122 oz Body Mass Index (BMI) 27.9 Finger Stick Blood Glucose 105 Intake and Output for Last 24 Hours 01/23/20 01/24/20 01/25/20 23:59 23:59 23:59 Intake Total 819.25 / 835.95 1023.3 / 1243.3 440 / 440 Output Total 1660 / 1660 475 / 1375 1100 / 1100 Balance -840.75 / -824.05 548.3 / -131.7 -660 / -660 General: Awake, Alert, Oriented x 3, Cooperative, No Acute Distress HEENT: Atraumatic, Normocephalic, PERRL, EOMI, Sclera Non Icteric Neck: Supple, Good ROM, No JVD Lungs: Clear to auscultation Cardiovascular: Irregular Rhythm, Normal S1, Normal S2 Abdomen: Bowel Sounds Present, Soft Extremities: No edema Neurological: No Focal Motor or Sensory Deficit Psych/Mental Status: Appropriate 01/24/20 21:23: Glucose 492 H* 01/25/20 05:18: WBC 7.6, RBC 5.30, Hgb 13.8, Hct 46.1, MCV 87.0, MCH 26.0 L, MCHC 29.9 L, Plt Count 249, MPV 9.5 01/25/20 05:18: Sodium 134 L, Potassium 3.9, Chloride 98, Carbon Dioxide 27.0, Anion Gap 9, BUN 46 H, Creatinine 2.34 H, Est GFR (MDRD) Af Amer 36 L, Est GFR (MDRD) Non-Af 30 L, BUN/Creatinine Ratio 19.7, Glucose 201 H, Calcium 8.4 L Rhythm: Atrial fibrillation/flutter Medical Necessity - Tobacco Use Smoking Status: Former smoker Assessment/Plan 1. Acute on chronic systolic mediated CHF The patient has had recurrent acute on chronic systolic mediated CHF. At the moment he appears to be improved based on symptoms and examination. He is going to need to continue his combined medical regimen. Also he is pending an upcoming electrophysiology appointment at [facility] on 02-06-2020 for consideration for AV node ablation to assist with his atrial dysrhythmia/rapid rates which may be contributing to his recurrent acute on chronic systolic mediated CHF. 2. CAD status post PCI The patient has an extensive underlying history of CAD and PCI. At the moment he appears to be without recurrent acute coronary syndrome. He will need to continue medical management. 3. Ischemic mediated cardiomyopathy The patient does have an ischemic mediated cardiomyopathy. He has been treated medically. He is undergone evaluation for CAD and revascularization therapy in the past. He has an ICD in place. 4. Paroxysmal atrial fibrillation/flutter He appears to remain in his atrial dysrhythmias. His rapid rates may be contributing to his recurrent acute on chronic systolic mediated CHF events. He is continuing medical management to assist with rate control with his beta- blockers. He is now on oral amiodarone. This will be tapered over time. As he appears to be symptomatically and clinically improved he will continue oral medical therapy with the hope of continuing his EP evaluation as an outpatient. 5. ICD He does have an ICD in place. Depending upon his EP evaluation there may be consideration that this may need to be upgraded to a dual-chamber device or a biventricular ICD/DISPATCHER SERVICE device. 6. Hyperlipidemia He will continue medical therapy. 7. Hypertension His blood pressure need to be monitored and his medications were adjusted. 8. Diabetes mellitus He will continue medical therapy per internal medicine. 9. Chronic renal insufficiency His creatinine level appears to be improving as his cardiovascular findings/volume status, under better control. They will need to be monitored. Overall, from a cardiac standpoint, the plan at the moment is to adjust his medications, follow his status, and continue the patient's EP evaluation as an outpatient and long-term outpatient cardiovascular follow-up. Comment: The patient's case has been previously discussed and reviewed with Dr. Woodard. This note was generated using a voice recognition system and there may be incorrect words, spelling or punctuation that were not noted when reviewing the office note prior to saving.
--- NOTE | 2020-01-25 11:16 | DCINST_ITS ---
- Discharge Diagnoses Current Active Problems: Current Active and Chronic Problems (Last Reviewed 01/11/20 @ 16:45 by Yuliet Nayak PA, PA) Pulmonary edema (Acute) Chest pain (Acute) Stage 3 chronic kidney disease (Chronic) Essential hypertension (Chronic) [facility] current use of 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) Nonsustained ventricular tachycardia (Chronic) Chronic systolic CHF (congestive heart failure) (Chronic) Presence of implantable cardioverter-defibrillator (ICD) (Chronic) Left atrial thrombus (Chronic) History of coronary artery stent placement (Chronic 06/08/16) SARA-RCA 06/15/2011, SARA-OM1 06/30/2011, SARA-LAD 08/20/2014, SARA-Prox- RCA 06/08/2016 Paroxysmal atrial fibrillation (Chronic) Hyperlipidemia (Chronic) Type II diabetes mellitus (Chronic) STEMI (ST elevation myocardial infarction) (Acute) Cardiomyopathy, ischemic (Chronic) You will use the following diet at home:: Calorie/Carbohydrate Controlled (specify 1200, 1400, etc), Cardiac Discharge Activity: Return to Normal Activity Call your doctor if you observe: Shortness of breath, Dizziness, Chest pain, Increased palpitations (irregular heartbeat) Allergies/Adverse Reactions: Allergies diltiazem Allergy (Verified 01/22/20 21:49) LOWER LEG SWELLING tamsulosin [From Flomax] Allergy (Verified 01/22/20 21:49) Shortness of breath/muscle weakness atorvastatin calcium [From Lipitor] Adverse Reaction (Verified 01/22/20 21:49) MUSCLE WEAKNESS Medications to take at Discharge Loratadine 10 mg PO DAILY 03/13/19 Pantoprazole Sodium [Protonix] 40 mg PO BID 03/13/19 Ranolazine [Ranolazine ER] 500 mg PO BID 03/13/19 clopidogrel 75 mg tablet 75 mg PO DAILY #30 tab 06/23/19 Nitroglycerin (INPATIENT USE) [Nitrostat] 0.4 mg SUBLINGUAL Q5M PRN #30 tab 08/15/19 pravastatin 40 mg tablet 40 mg PO QHS #90 tab 09/15/19 Aspirin [Aspirin, Baby] 81 mg PO DAILY@0800 10/20/19 apixaban 2.5 mg tablet 2.5 mg PO BID #60 tab 12/07/19 furosemide 80 mg tablet 40 mg PO DAILY tab 01/03/20 metolazone 2.5 mg tablet 2.5 mg PO X1 01/11/20 Spironolactone 25 mg PO DAILY 01/22/20 Amiodarone HCl [Cordarone] 200 mg PO TID #90 tab 01/25/20 Carvedilol [Coreg (Beta Thalia)] 25 mg PO BID #60 tab 01/25/20 Insulin NPH Human [Humulin N Pen] 30 units SC BREAKFAST pen 01/25/20 Insulin NPH Human [Humulin N Pen] 30 units SC QHS pen 01/25/20 The following prescriptions were given: Amiodarone HCl [Cordarone] 200 mg PO TID #90 tab Transmission Status: Pending to [facility] Carvedilol [Coreg (Beta Thalia)] 25 mg PO BID #60 tab Transmission Status: Pending to [facility] Primary Care Physician: Jennifer Spicer DO [Primary Care Provider] - Please follow up with your Primary Care Physician in: 1 Week Test Results: Test results from this visit will be discussed in further detail at your follow- up appointment, if applicable. Please Follow Up With: [facility] Electrophysiology When: As scheduled 02/06/2020 Please Follow Up With: Hema Garcia MD When: 2 Weeks Proposed Discharge Date: 01/25/20
--- NOTE | 2020-01-25 11:19 | PCM.DC.SUM ---
<JordinJackie LOG LOADER HELPER - Last Filed: 01/25/20 11:34> Discharge Date and Diagnosis - Problem List Patient Problems: Active and Suspected Problems (Last Reviewed 01/11/20 @ 16:45 by Yuliet FORD, PA) Pulmonary edema (Acute) Chest pain (Acute) STEMI (ST elevation myocardial infarction) (Acute) Date of Admission: 01/22/20 Date of Discharge: 01/25/20 - Primary Discharge Diagnosis Acute Problems: Active Problems (Last Reviewed 01/11/20 @ 16:45 by Yuliet FORD, PA) 1. Acute on chronic chronic heart failure with reduced ejection fraction 2. Atrial fibrillation with RVR 3. Chronic kidney disease stage IV 4. Hypertension 5. CAD with history of stents 6. Type 2 diabetes mellitus 7. Chronic cough, history of extensive tobacco use-suspect underlying COPD - Secondary Discharge Diagnosis Chronic Problems: Chronic Problems (Last Reviewed 01/11/20 @ 16:45 by Yuliet FORD, PA) Stage 3 chronic kidney disease (Chronic) Essential hypertension (Chronic) nursing home current use of 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) Nonsustained ventricular tachycardia (Chronic) Chronic systolic CHF (congestive heart failure) (Chronic) Presence of implantable cardioverter-defibrillator (ICD) (Chronic) 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) History of coronary artery stent placement (Chronic 06/08/16) SARA-RCA 06/15/2011, SARA-OM1 06/30/2011, SARA-LAD 08/20/2014, SARA-Prox- RCA 06/08/2016 Atherosclerosis of coronary artery of [place] heart without angina pectoris (Chronic) SARA-RCA 06/15/2011, SARA-OM1 06/30/2011, SARA-LAD 08/20/2014, SARA-Prox- RCA 06/08/2016 Paroxysmal atrial fibrillation (Chronic) Hyperlipidemia (Chronic) Type II diabetes mellitus (Chronic) Cardiomyopathy, ischemic (Chronic) Hospital Course and Treatment Imaging Results: Diagnostic Data Chest X-Ray 01/22/20 22:10 IMPRESSION: No acute findings. Electronically Signed: Odalis Jha MD at 22:38 EDT Tel , Service support , Dr. Garcia- Cardiology Operations: None Procedures: 2-D Echocardiogram Summary of Care Provided: The patient is a 69 year old M admitted 01/22/2020 due to chest pain. 1. Acute on chronic chronic heart failure with reduced ejection fraction-BNP 362. Chest x-ray consistent with mild CHF. Echocardiogram October 2019 demonstrated an EF of 35%, mild mitral valve insufficiency, mild to moderate tricuspid valve insufficiency. Repeat echo during admission demonstrates an EF of 25%, mild to moderate mitral valve insufficiency, mild tricuspid valve insufficiency, RVSP estimated to be 45 mmHg. IV Lasix during admission. Transition to home Lasix, spironolactone, metolazone regimen at discharge. Cardiology consulted during admission. Suspect atrial dysrhythmia may be contributing to recurrent exacerbation of CHF. Patient has ICD in place. Cardiology recommended discussing upgrading to dual-chamber/biventricular AICD. Patient has upcoming appointment with [facility] electrophysiology 02/06/2020. Follow-up with primary cardiology in 2 weeks as well. 2. Atrial fibrillation with [id number]-nmedrfm increased. Continue carvedilol 25 mg twice daily. Amiodarone at discharge with loading dose 200 mg 3 times daily until 01/28 then 200 mg twice daily for 2 weeks then change to 200 mg daily. Follow-up with cardiology as noted above. 3. Chronic kidney disease stage IV-at baseline. Outpatient follow-up with nephrology. 4. Hypertension-stable, continue carvedilol, Lasix, isosorbide, losartan, hydralazine regimen. Initiated on Aldactone as noted above. 5. CAD with history of stents-continue aspirin, Eliquis, carvedilol, Plavix, statin, Ranexa. 6. Type 2 diabetes mellitus-Home insulin regimen increased due to hyperglycemia. Continue glucose monitoring and outpatient follow-up. 7. Chronic cough, history of extensive tobacco use-suspect undiagnosed COPD. Patient reports extensive history of smoking as well as work exposure to other irritants. Recommend establishing with pulmonary medicine, Dr. Frankel or Dr. Go for PFTs and further evaluation. Patient has not yet established with pulmonary medicine. General: Alert, Oriented x3, Cooperative HEENT: Atraumatic, PERRLA, EOMI, Normocephalic Neck: Supple, No JVD, Negative Carotid Bruits Lungs: Clear to auscultation, Diminished Cardiovascular: Regular rate, Regular Rhythm, Normal S1, Normal S2, No murmurs Abdomen: Bowel Sounds Present, Soft, Non Tender, Distended Extremities: No clubbing, No cyanosis, Capillary Refill Less than 3 Seconds, no edema Skin: No rashes, No breakdown Musculoskeletal: No Tenderness to Palpation of Joints or Extremities Neurological: Cranial nerves II-XII grossly intact, Neuro grossly intact Psych/Mental Status: Normal Affect, Appropriate Patient seen and examined prior to discharge. Physical assessment as noted above. Patient is stable for discharge with follow up recommendations as noted above. This patient was seen by WALDEMAR Blair under the supervision of Dr. Woodard. Patient Problems: Active and Suspected Problems (Last Reviewed 01/11/20 @ 16:45 by Yuliet Nayak PA, PA) Pulmonary edema (Acute) Chest pain (Acute) STEMI (ST elevation myocardial infarction) (Acute) - Physical Exam Vitals/I&O's: Vital Signs Temp Pulse Resp BP Pulse Ox 97.6 F L 78 16 122/72 H 100 01/25/20 09:28 01/25/20 10:47 01/25/20 09:28 01/25/20 09:28 01/25/20 09:28 Oxygen Flow Rate (L/min) 2 Oxygen Delivery Method Room Air Weight: 186 lb 1.122 oz Body Mass Index (BMI) 27.9 Finger Stick Blood Glucose 105 Intake and Output for Last 24 Hours 01/23/20 01/24/20 01/25/20 23:59 23:59 23:59 Intake Total 819.25 / 835.95 1023.3 / 1243.3 440 / 440 Output Total 1660 / 1660 475 / 1375 1100 / 1100 Balance -840.75 / -824.05 548.3 / -131.7 -660 / -660 Laboratory Results 01/24/20 16:34: POC Glucose 339 H 01/24/20 20:58: POC Glucose 460 H* 01/24/20 21:23: Glucose 492 H* 01/25/20 03:22: POC Glucose 288 H 01/25/20 05:18: WBC 7.6, RBC 5.30, Hgb 13.8, Hct 46.1, MCV 87.0, MCH 26.0 L, MCHC 29.9 L, RDW Std Deviation 61.1 H, RDW Coeff of [place] 20.0 H, Plt Count 249, MPV 9.5 01/25/20 05:18: Sodium 134 L, Potassium 3.9, Chloride 98, Carbon Dioxide 27.0, Anion Gap 9, BUN 46 H, Creatinine 2.34 H, Estim Creat Clear Calc 30.63, Est GFR (MDRD) Af Amer 36 L, Est GFR (MDRD) Non-Af 30 L, BUN/Creatinine Ratio 19.7, Glucose 201 H, Calcium 8.4 L 01/25/20 07:14: POC Glucose 187 H Current Medications Amiodarone HCl (Amiodarone 200 Mg Tablet) 200 mg PO TID [facility] Stop: 01/28/20 22:01 Last Admin: 01/25/20 05:37 Dose: 200 mg Documented by: Amiodarone HCl (Amiodarone 200 Mg Tablet) 200 mg PO BID [facility] Stop: 02/11/20 22:01 Amiodarone HCl (Amiodarone 200 Mg Tablet) 200 mg PO DAILY [facility] Apixaban (Apixaban 2.5 Mg Tablet) 2.5 mg PO BID [facility] Last Admin: 01/25/20 09:32 Dose: 2.5 mg Documented by: Aspirin (Aspirin 81 Mg Tab.Chew) 81 mg PO DAILY@0800 [facility] Last Admin: 01/25/20 07:51 Dose: 81 mg Documented by: Carvedilol (Carvedilol 25 Mg Tablet) 25 mg PO BID [facility] Last Admin: 01/25/20 09:32 Dose: 25 mg Documented by: Clopidogrel Bisulfate (Clopidogrel Bisulfate 75 Mg Tablet) 75 mg PO DAILY [facility] Last Admin: 01/25/20 09:32 Dose: 75 mg Documented by: Furosemide (Furosemide 40 Mg Tablet) 40 mg PO DAILY [facility] Last Admin: 01/25/20 09:32 Dose: 40 mg Documented by: Sodium Chloride () 250 mls @ 15 mls/hr IV .[id number] PRN PRN Reason: Saline Flush Sodium Chloride () 250 mls @ 15 mls/hr IV .[id number] PRN PRN Reason: Additional IVPB Infusion Insulin Human Lispro (Insulin Lispro 100 Unit/Ml Insuln.Pen) 0 unit SC ACHS [facility]; Protocol Last Admin: 01/25/20 11:18 Dose: 3 u Documented by: Insulin Human NPH (Insulin Nph Human 100 Units/Ml Pen) 30 units SC BREAKFAST [facility] Last Admin: 01/25/20 07:51 Dose: 30 u Documented by: Insulin Human NPH (Insulin Nph Human 100 Units/Ml Pen) 30 units SC QHS [facility] Last Admin: 01/24/20 21:01 Dose: 30 unit Documented by: Loratadine (Loratadine 10 Mg Tablet) 10 mg PO DAILY [facility] Last Admin: 01/25/20 09:32 Dose: 10 mg Documented by: Metolazone (Metolazone 2.5 Mg Tablet) 2.5 mg PO Tu@1000 [facility] Morphine Sulfate (Morphine 2 Mg/Ml Syringe) 2 mg IV Q3H PRN PRN PRN Reason: Pain Score 6-10 Nitroglycerin (Nitroglycerin (Inpatient Use) 0.4 Mg Tab.Subl) 0.4 mg SUBLINGUAL Q5M PRN PRN Reason: CARDIAC/CHEST PAIN Ondansetron HCl (Ondansetron 4 Mg/2 Ml Vial) 4 mg IV Q8H PRN PRN PRN Reason: NAUSEA/VOMITING Pantoprazole Sodium (Pantoprazole Sodium 40 Mg Tablet) 40 mg PO BID [facility] Last Admin: 01/25/20 09:32 Dose: 40 mg Documented by: Pravastatin Sodium (Pravastatin 40 Mg Tablet) 40 mg PO QHS [facility] Last Admin: 01/24/20 21:01 Dose: 40 mg Documented by: Ranolazine (Ranolazine 500 Mg Tablet) 500 mg PO BID [facility] Last Admin: 01/25/20 09:32 Dose: 500 mg Documented by: Sodium Chloride (0.9% Saline Lock 10 Ml Syringe) 10 - 40 ml IV UD PRN PRN Reason: SALINE FLUSH Last Admin: 01/24/20 21:07 Dose: 10 ml Documented by: Spironolactone (Spironolactone 50 Mg Tablet) 25 mg PO DAILY [facility] Last Admin: 01/25/20 09:31 Dose: 25 mg Documented by: Discharge Diet: Low fat/ Low Cholesterol, Carb Control Diet Discharge Activity: Return to Normal Activity Call your doctor if you observe: Shortness of breath, Dizziness, Chest pain, Increased palpitations (irregular heartbeat) Home Medications: Medications to take at Discharge Loratadine 10 mg PO DAILY 03/13/19 Pantoprazole Sodium [Protonix] 40 mg PO BID 03/13/19 Ranolazine [Ranolazine ER] 500 mg PO BID 03/13/19 clopidogrel 75 mg tablet 75 mg PO DAILY #30 tab 06/23/19 Nitroglycerin (INPATIENT USE) [Nitrostat] 0.4 mg SUBLINGUAL Q5M PRN #30 tab 08/15/19 pravastatin 40 mg tablet 40 mg PO QHS #90 tab 09/15/19 Aspirin [Aspirin, Baby] 81 mg PO DAILY@0800 10/20/19 apixaban 2.5 mg tablet 2.5 mg PO BID #60 tab 12/07/19 furosemide 80 mg tablet 40 mg PO DAILY tab 01/03/20 metolazone 2.5 mg tablet 2.5 mg PO X1 01/11/20 Spironolactone 25 mg PO DAILY 01/22/20 Amiodarone HCl [Cordarone] 200 mg PO TID #90 tab 01/25/20 Carvedilol [Coreg (Beta Thalia)] 25 mg PO BID #60 tab 01/25/20 Insulin NPH Human [Humulin N Pen] 30 units SC BREAKFAST pen 01/25/20 Insulin NPH Human [Humulin N Pen] 30 units SC QHS pen 01/25/20 Following Prescriptions Were Given to Patient: Amiodarone HCl [Cordarone] 200 mg PO TID #90 tab Transmission Status: Received by [facility] Carvedilol [Coreg (Beta Thalia)] 25 mg PO BID #60 tab Transmission Status: Received by [facility] Primary Care Physician: Jennifer Spicer DO [Primary Care Provider] - Please follow up with your Primary Care Physician in: 1 Week Please Follow Up With: [facility] Electrophysiology When: As scheduled 02/06/2020 Please Follow Up With: Hema Garcia MD When: 2 Weeks Disposition: Home Minutes spent on discharge:: 35 Patient Condition:: Stable Medical Necessity - Tobacco Use Smoking Status: Former smoker Meaningful Use Info Meaningful Use Diagnoses (Choose all that apply): CHF - CHF AN/ARB ordered at discharge?: No Reason AN/ARB not ordered?: Worsening renal dysfunctn Documented LVEF (%): 25 <John Woodard - Last Filed: 01/25/20 11:37> Discharge Date and Diagnosis - Primary Discharge Diagnosis Acute Problems: Active Problems (Last Reviewed 01/11/20 @ 16:45 by Yuliet FORD, PA) Pulmonary edema (Acute) Chest pain (Acute) STEMI (ST elevation myocardial infarction) (Acute) - Secondary Discharge Diagnosis Chronic Problems: Chronic Problems (Last Reviewed 01/11/20 @ 16:45 by Yuliet FORD, PA) Stage 3 chronic kidney disease (Chronic) Essential hypertension (Chronic) 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) Nonsustained ventricular tachycardia (Chronic) Chronic systolic CHF (congestive heart failure) (Chronic) Presence of implantable cardioverter-defibrillator (ICD) (Chronic) 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) History of coronary artery stent placement (Chronic 06/08/16) SARA-RCA 06/15/2011, SARA-OM1 06/30/2011, SARA-LAD 08/20/2014, SARA-Prox- RCA 06/08/2016 Atherosclerosis of coronary artery of [place] heart without angina pectoris (Chronic) SARA-RCA 06/15/2011, SARA-OM1 06/30/2011, SARA-LAD 08/20/2014, SARA-Prox- RCA 06/08/2016 Paroxysmal atrial fibrillation (Chronic) Hyperlipidemia (Chronic) Type II diabetes mellitus (Chronic) Cardiomyopathy, ischemic (Chronic) Hospital Course and Treatment Summary of Care Provided: This patient was seen in conjunction with WALDEMAR Blair . I have independently interviewed and examined the patient and reviewed pertinent historical, laboratory, and other data. Please refer to WALDEMAR Blair note for details of this patient's presentation, findings, and recommendations. I have reviewed WALDEMAR Blair note and concur with documented findings. In brief, Patient is a 69-year-old gentleman with multiple comorbidities including congestive heart failure with reduced ejection fraction, paroxysmal A. fib diabetes mellitus type 2 who presented with chest pain. Patient was found to have slightly elevated troponin. EKG obtained on admission demonstrated A. fib with aberrancy started on amiodarone drip admitted to the intensive care unit for subsequent management Hospital course: As documented above - Physical Exam Vitals/I&O's: Vital Signs Temp Pulse Resp BP Pulse Ox 97.6 F L 78 16 122/72 H 100 01/25/20 09:28 01/25/20 10:47 01/25/20 09:28 01/25/20 09:28 01/25/20 09:28 Oxygen Flow Rate (L/min) 2 Oxygen Delivery Method Room Air Weight: 84.4 kg Body Mass Index (BMI) 27.9 Finger Stick Blood Glucose 105 Intake and Output for Last 24 Hours 01/23/20 01/24/20 01/25/20 23:59 23:59 23:59 Intake Total 819.25 / 835.95 1023.3 / 1243.3 440 / 440 Output Total 1660 / 1660 475 / 1375 1100 / 1100 Balance -840.75 / -824.05 548.3 / -131.7 -660 / -660 Laboratory Results 01/24/20 16:34: POC Glucose 339 H 01/24/20 20:58: POC Glucose 460 H* 01/24/20 21:23: Glucose 492 H* 01/25/20 03:22: POC Glucose 288 H 01/25/20 05:18: WBC 7.6, RBC 5.30, Hgb 13.8, Hct 46.1, MCV 87.0, MCH 26.0 L, MCHC 29.9 L, RDW Std Deviation 61.1 H, RDW Coeff of [place] 20.0 H, Plt Count 249, MPV 9.5 01/25/20 05:18: Sodium 134 L, Potassium 3.9, Chloride 98, Carbon Dioxide 27.0, Anion Gap 9, BUN 46 H, Creatinine 2.34 H, Estim Creat Clear Calc 30.63, Est GFR (MDRD) Af Amer 36 L, Est GFR (MDRD) Non-Af 30 L, BUN/Creatinine Ratio 19.7, Glucose 201 H, Calcium 8.4 L 01/25/20 07:14: POC Glucose 187 H 01/25/20 11:17: POC Glucose 245 H Current Medications Amiodarone HCl (Amiodarone 200 Mg Tablet) 200 mg PO TID [facility] Stop: 01/28/20 22:01 Last Admin: 01/25/20 05:37 Dose: 200 mg Documented by: Amiodarone HCl (Amiodarone 200 Mg Tablet) 200 mg PO BID [facility] Stop: 02/11/20 22:01 Amiodarone HCl (Amiodarone 200 Mg Tablet) 200 mg PO DAILY [facility] Apixaban (Apixaban 2.5 Mg Tablet) 2.5 mg PO BID [facility] Last Admin: 01/25/20 09:32 Dose: 2.5 mg Documented by: Aspirin (Aspirin 81 Mg Tab.Chew) 81 mg PO DAILY@0800 [facility] Last Admin: 01/25/20 07:51 Dose: 81 mg Documented by: Carvedilol (Carvedilol 25 Mg Tablet) 25 mg PO BID [facility] Last Admin: 01/25/20 09:32 Dose: 25 mg Documented by: Clopidogrel Bisulfate (Clopidogrel Bisulfate 75 Mg Tablet) 75 mg PO DAILY [facility] Last Admin: 01/25/20 09:32 Dose: 75 mg Documented by: Furosemide (Furosemide 40 Mg Tablet) 40 mg PO DAILY [facility] Last Admin: 01/25/20 09:32 Dose: 40 mg Documented by: Sodium Chloride () 250 mls @ 15 mls/hr IV .[id number] PRN PRN Reason: Saline Flush Sodium Chloride () 250 mls @ 15 mls/hr IV .[id number] PRN PRN Reason: Additional IVPB Infusion Insulin Human Lispro (Insulin Lispro 100 Unit/Ml Insuln.Pen) 0 unit SC ACHS [facility]; Protocol Last Admin: 01/25/20 11:18 Dose: 3 u Documented by: Insulin Human NPH (Insulin Nph Human 100 Units/Ml Pen) 30 units SC BREAKFAST [facility] Last Admin: 01/25/20 07:51 Dose: 30 u Documented by: Insulin Human NPH (Insulin Nph Human 100 Units/Ml Pen) 30 units SC QHS [facility] Last Admin: 01/24/20 21:01 Dose: 30 unit Documented by: Loratadine (Loratadine 10 Mg Tablet) 10 mg PO DAILY [facility] Last Admin: 01/25/20 09:32 Dose: 10 mg Documented by: Metolazone (Metolazone 2.5 Mg Tablet) 2.5 mg PO Tu@1000 [facility] Morphine Sulfate (Morphine 2 Mg/Ml Syringe) 2 mg IV Q3H PRN PRN PRN Reason: Pain Score 6-10 Nitroglycerin (Nitroglycerin (Inpatient Use) 0.4 Mg Tab.Subl) 0.4 mg SUBLINGUAL Q5M PRN PRN Reason: CARDIAC/CHEST PAIN Ondansetron HCl (Ondansetron 4 Mg/2 Ml Vial) 4 mg IV Q8H PRN PRN PRN Reason: NAUSEA/VOMITING Pantoprazole Sodium (Pantoprazole Sodium 40 Mg Tablet) 40 mg PO BID [facility] Last Admin: 01/25/20 09:32 Dose: 40 mg Documented by: Pravastatin Sodium (Pravastatin 40 Mg Tablet) 40 mg PO QHS [facility] Last Admin: 01/24/20 21:01 Dose: 40 mg Documented by: Ranolazine (Ranolazine 500 Mg Tablet) 500 mg PO BID [facility] Last Admin: 01/25/20 09:32 Dose: 500 mg Documented by: Sodium Chloride (0.9% Saline Lock 10 Ml Syringe) 10 - 40 ml IV UD PRN PRN Reason: SALINE FLUSH Last Admin: 01/24/20 21:07 Dose: 10 ml Documented by: Spironolactone (Spironolactone 50 Mg Tablet) 25 mg PO DAILY [facility] Last Admin: 01/25/20 09:31 Dose: 25 mg Documented by: Inpatient E&M: [id number] Disch Hosp
[2020-01-25 11:26] LABS: Bedside Glucose 245 mg/dL (70-110)
--- NOTE | 2020-01-25 11:49 | CASEMGMT ---
This RN CM to room to discuss discharge plan with pt at this time. Pt states no need for any further therapy at this time and states has family at home to help, if needed. Pt voices no further questions/concerns/needs at this time. SStaten RN CM
--- NOTE | 2020-01-25 15:19 | PHA.DC.MC ---
Pharmacy Service has performed discharge medication reconciliation and counseling for this patient. 1. AMIODARONE 200MG PO TID X 3 DAYS, THEN 200MG PO BID FOR 2 WEEKS, THEN 200MG PO DAILY THEREAFTER The patient's discharge medication list was reviewed for discrepancies and discrepancies were resolved. Home Medications Loratadine 10 mg PO DAILY 03/13/19 Pantoprazole Sodium [Protonix] 40 mg PO BID 03/13/19 Ranolazine [Ranolazine ER] 500 mg PO BID 03/13/19 clopidogrel 75 mg tablet 75 mg PO DAILY #30 tab 06/23/19 Nitroglycerin (INPATIENT USE) [Nitrostat] 0.4 mg SUBLINGUAL Q5M PRN #30 tab 08/15/19 pravastatin 40 mg tablet 40 mg PO QHS #90 tab 09/15/19 Aspirin [Aspirin, Baby] 81 mg PO DAILY@0800 10/20/19 apixaban 2.5 mg tablet 2.5 mg PO BID #60 tab 12/07/19 furosemide 80 mg tablet 40 mg PO DAILY tab 01/03/20 metolazone 2.5 mg tablet 2.5 mg PO X1 01/11/20 Spironolactone 25 mg PO DAILY 01/22/20 Amiodarone HCl [Cordarone] 200 mg PO TID #90 tab 01/25/20 Carvedilol [Coreg (Beta Thalia)] 25 mg PO BID #60 tab 01/25/20 Insulin NPH Human [Humulin N Pen] 30 units SC BREAKFAST pen 01/25/20 Insulin NPH Human [Humulin N Pen] 30 units SC QHS pen 01/25/20 The patient was counseled on the following discharge medications and changes in medications for homegoing were reviewed. The Reason for Use, instructions for use, and potential side effects were reviewed for all new medications. The patient's questions regarding all of their medications were answered. The patient was able to verbally demonstrate an understanding of their discharge medications. Patient counseled by pharmacy retail support specialist, Melani.
[2020-01-25 16:30] LABS: Bedside Glucose 242 mg/dL (70-110)
--- NOTE | 2020-01-26 15:32 | CASEMGMT ---
EDVYN HUTCHINS Discharge Follow-Up Phone Call. Lace:??16 Strata: 4 Discharge Date: 01/25/20 Adm Dx:?? CP/A-fib. Call to pt to inquire about how?he?has been doing since being discharged from the hospital.? Pt states I'm doing okay. He denies having any questions about the discharge instructions, stating, I understand them. He states he had enough Amiodarone and Coreg from previous prescriptions that he could take today and his daughter is picking up the new prescriptions at the pharmacy this evening. He states he has not missed any doses. He is aware of the appts scheduled with Dr Bill. He states he usually sees Dr Spicer and would prefer to see her, so he plans to call on Wednesday to see if he can get this changed. He inquired about why he needs to see [facility] on 02/05 and Dequan Lei @ [facility] on 02/06, since they both are cardiologists. DEVYN HUTCHINS explained that the Dr @ [facility] specializes in irreg heart rhythm's and he has most likely been referred to them by the [facility] and [facility] would still want to see him as they are his primary boom storage. Pt voices understanding. He denies having any other questions/concerns. DEVYN HUTCHINS thanked pt for choosing [facility]. He states It is such a good hospital. The staff is wonderful Joanna ARRINGTON RN, CM
== END 2020-01-25 18:52 | disposition home or self-care (01) | DRG 291 ==
LOC: ED 21:50 → ICU 22:37 → PCU 01-23 19:25
PROVIDERS: Admitting Provider Family Medicine; Emergency Provider Emergency Medicine; PCP Family Medicine; Referring Provider Family Medicine; Visit Provider Internal Medicine
DX: I13.0 Hypertensive heart and chronic kidney disease with heart failure and stage 1 through stage 4 chronic kidney disease, or unspecified chronic kidney disease (principal); I50.23 Acute on chronic systolic (congestive) heart failure; N18.4 Chronic kidney disease, stage 4 (severe); N17.9 Acute kidney failure, unspecified; I47.2 Ventricular tachycardia; I48.92 Unspecified atrial flutter; I25.10 Atherosclerotic heart disease of native coronary artery without angina pectoris; I48.0 Paroxysmal atrial fibrillation; I27.21 Secondary pulmonary arterial hypertension; I25.5 Ischemic cardiomyopathy; I08.1 Rheumatic disorders of both mitral and tricuspid valves; E11.22 Type 2 diabetes mellitus with diabetic chronic kidney disease; E11.65 Type 2 diabetes mellitus with hyperglycemia; E78.5 Hyperlipidemia, unspecified; J44.9 Chronic obstructive pulmonary disease, unspecified; I25.2 Old myocardial infarction; Z95.810 Presence of automatic (implantable) cardiac defibrillator; Z95.5 Presence of coronary angioplasty implant and graft; Z79.01 Long term (current) use of 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s; Z79.02 Long term (current) use of antithrombotics/antiplatelets; Z79.4 Long term (current) use of insulin; Z79.899 Other long term (current) drug therapy; Z87.891 Personal history of nicotine dependence; Z23 Encounter for immunization
CPT/HCPCS: 36415; 71045; 80048; 80053; 82947; 82962; 83735; 83880; 84100; 84484; 85025; 85027; 85610; 85730; 93005; 93306; 94002; 94003; 94640; 94762; 97802; 99285; G0008; J7030; Q9957; 90686; A4216; C8929; J1940

== ENCOUNTER → 2020-03-27 11:14 | Outpatient (CLI) | payer MEDICARE, SELFPAY ==
[2016-06-12 14:02] VITALS: BMI 29.7
[2020-03-27 10:33] VITALS: BMI 26.7
[2020-03-27 13:29] LABS: ALB/GLOB Ratio 0.8 RATIO (0.9-2.4); AST(SGOT) 15 U/L (15-37); Alanine Aminotransfer ALT/SGPT 24 U/L (16-61); Albumin, Serum 3.6 g/dL (3.2-5.0); Alkaline Phosphatase 116 U/L (45-117); Anion Gap 8 (5-15); BUN 35 mg/dL (7-18); BUN/Creat Ratio 14.1 RATIO (10-20); Calcium,Total 9.3 mg/dL (8.5-10.1); Chloride 93 mmol/L (98-107); Creatinine, Serum 2.48 mg/dL (0.70-1.30); EST Glomerular Filtration Rate 28 mL/min (>60); Est Glom Filt Rate - Afr Amer 34 mL/min (>60); Globulin 4.8 g/dL (2.2-4.2); Glucose 345 mg/dL (74-106); Potassium 4.3 mmol/L (3.5-5.1); Protein, Total 8.4 g/dL (6.4-8.2); Sodium Level 130 mmol/L (136-145)
== END ==
PROVIDERS: PCP Family Medicine; Referring Provider Nurse Practitioner Family; Visit Provider Nurse Practitioner Family
DX: I25.10 Atherosclerotic heart disease of native coronary artery without angina pectoris (principal); I48.0 Paroxysmal atrial fibrillation; I25.5 Ischemic cardiomyopathy; N18.30 Chronic kidney disease, stage 3 unspecified; Z95.5 Presence of coronary angioplasty implant and graft; Z79.899 Other long term (current) drug therapy
CPT/HCPCS: 36415; 80053

== ENCOUNTER 2020-06-01 16:16 | Emergency (ER) | payer MEDICARE, SELFPAY ==
[2016-06-12 14:02] VITALS: BMI 29.7
[2020-03-27 10:33] VITALS: BMI 26.7
[2020-06-01 16:17] VITALS: BP 137/86; PULSE 87; RESP 18; TEMP 36.4; O2SAT 94; BMI 27.6
--- NOTE | 2020-06-01 16:26 | RAD_ITS ---
STUDY: X-RAY - RIGHT WRIST REASON FOR EXAM: Male, 69 years old. Injury TECHNIQUE: 3 view(s) of the wrist were obtained. COMPARISON: None. FINDINGS: Normal visualized distal radius and ulna. Normal radiocarpal articulation. Normal distal radioulnar articulation. Normal carpal bones. Normal carpal articulations. Normal carpometacarpal articulation of the thumb. Normal second through fifth carpometacarpal articulations. Normal visualized metacarpal bones. The soft tissue structures are unremarkable. There is no demonstrated acute fracture. RAD/Wrist min 3 Views IMPRESSION: Normal x-ray examination of the wrist. Electronically Signed: Deion Wesley MD at 17:05 EST , Service support ,
--- NOTE | 2020-06-01 16:26 | RAD_ITS ---
STUDY: X-RAY - RIGHT HAND REASON FOR EXAM: Male, 69 years old. Knee gave out, fall, pain in 3-5th digits. injury TECHNIQUE: 3 view(s) of the hand. COMPARISON: None. FINDINGS: No visualized acute fracture or displaced bony fragment. Mild to moderate scattered degenerative changes noted. Mild demineralization of the osseous structures. Normal radiocarpal articulation. Normal distal radioulnar joint. Normal visualized carpal bones. Normal carpal articulations Normal carpometacarpal articulation of the thumb. Normal second through fifth carpometacarpal joints. Normal metacarpi. The soft tissue structures are unremarkable. RAD/Hand Min 3 Views IMPRESSION: Degenerative joint disease of the hand, as described above. Electronically Signed: Deion Wesley MD at 17:12 EST , Service support ,
--- NOTE | 2020-06-01 16:26 | RAD_ITS ---
STUDY: X-RAY - RIGHT ELBOW REASON FOR EXAM: Male, 69 years old. injury nee gave out, fall, elbow pain. TECHNIQUE: 3 view(s) of the elbow. COMPARISON: None. FINDINGS: Normal visualized humerus, radius and ulna. There is degenerative arthrosis of the radiocapitellar and ulnotrochlear articulations. The soft tissue structures are unremarkable. There is no demonstrated fracture. RAD/Elbow min 3 Views IMPRESSION: No acute fracture Electronically Signed: Deion Wesley MD at 17:20 EST , Service support ,
--- NOTE | 2020-06-01 16:26 | ED.VIS.GEN ---
History of Present Illness Chief Complaint: Fall Informant: Patient, Family Narrative: 69-year-old male with a history of frequent falls states that today his arthritic knee was acting up and he fell. He injured his right hand wrist and elbow when he fell. He denies striking his head or any headache or neck pain. Denies any other symptoms. Family notes swelling particularly of his second and third MCP joints. - Past Medical History (1) Atherosclerosis of coronary artery of [place] heart without angina pectoris Status: Chronic Comment: SARA-RCA 06/15/2011, SARA-OM1 06/30/2011, SARA-LAD 08/20/2014, SARA-Prox- RCA 06/08/2016 (2) Cardiomyopathy, ischemic Status: Chronic (3) Chronic systolic CHF (congestive heart failure) Status: Chronic (4) Essential hypertension Status: Chronic (5) Hyperlipidemia Status: Chronic (6) care home current use of 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 Status: Chronic (7) Nonsustained ventricular tachycardia Status: Chronic (8) Paroxysmal atrial fibrillation Status: Chronic Comment: Status post AV node ablation on 02/19/2020 at [facility] with Dr. Marcial; (9) Presence of implantable cardioverter-defibrillator (ICD) Status: Chronic (10) Secondary pulmonary arterial hypertension Status: Chronic (11) Stage 3 chronic kidney disease Status: Chronic (12) Type II diabetes mellitus Status: Chronic Past Medical History - Allergies and Home Meds Allergies/Adverse Reactions: Allergies diltiazem Allergy (Verified 06/01/20 16:20) LOWER LEG SWELLING tamsulosin [From Flomax] Allergy (Verified 06/01/20 16:20) Shortness of breath/muscle weakness atorvastatin calcium [From Lipitor] Adverse Reaction (Verified 06/01/20 16:20) MUSCLE WEAKNESS Primary Care Physician: Jennifer Spicer DO [Primary Care Provider] - 10-14 Days if not better Prior records reviewed: Yes Surgical History: herniorrhaphy, total knee arthroplasty - ACLS repair, - - s/p stents, AICD s/p cardioversion, s/p wrist and elbow surgery Lives: With Family Smoking Status: Former smoker Drugs: None - Family History Maternal Family History: Family History (Last Reviewed 01/11/20 @ 16:45 by Yuliet Nayak PA, PA) Brother Sudden cardiac Family History: Reports: Hypertension Paternal Family History: Family History (Last Reviewed 01/11/20 @ 16:45 by Yuliet FORD, PA) Brother Sudden cardiac Family History: Reports: Unknown Sibling Family History: Family History (Last Reviewed 01/11/20 @ 16:45 by Yuliet FORD, PA) Brother Sudden cardiac Family History: Reports: Heart Disease Review of Systems General: Denies: Chills, Fever, Sweats Eyes: Denies: Visual changes - bilaterally, Diplopia ENT: Denies: Rhinorrhea, Sore throat Cardiovascular: Denies: Chest pain, Palpitations Respiratory: Denies: Dyspnea, Cough, Dyspnea on exertion Gastrointestinal: Denies: Abdominal pain, Nausea, Vomiting, Diarrhea, Melena, Hematochezia Genitourinary: Denies: Dysuria, Hematuria, Frequency Musculoskeletal: Reports: Extremity Pain. Denies: Back pain Skin: Denies: Rash, Wounds Neurological: Denies: Headache, Weakness, Numbness Physical Exam Vital Signs/Narrative: Vital Signs Temp Pulse Resp BP Pulse Ox 06/01/20 16:17 97.5 F L 87 18 137/86 H 94 Inital Vital Signs reviewed: Yes General: Well nourished, Well developed, No Acute Distress Head: Normocephalic, Atraumatic Eyes: Perrl, EOMI ENT: Moist mucous membranes, No rhinorrhea Neck: Supple, Nontender Cardiovascular: Regular rate, Regular rhythm, No murmurs Respiratory: No distress, CTA bilaterally, Chest nontender Abdomen: Soft, Nontender, Nondistended, Normal bowel sounds Back: Nontender, Normal Inspection Extremities: No edema, - - Full range of motion of the right hand wrist and elbow. Shoulder appears unaffected. There is mild tenderness over the olecranon of the right elbow. Mild tenderness over the radius of the wrist. Mild swelling and tenderness over the index and middle MCP joints. Skin: Normal color, No rash Neurological: Alert, Oriented x3, Cranial nerves II-XII grossly intact, Normal Strength, Normal Sensation Psychological: Normal affect, Normal Mood Diagnostic/Tx/Re-eval Clinical Impression(s) from Imaging Studies Elbow X-Ray 06/01/20 16:26 IMPRESSION: No acute fracture Electronically Signed: Deion Wesley MD at 17:20 EST , Service support , Hand X-Ray 06/01/20 16:26 IMPRESSION: Degenerative joint disease of the hand, as described above. Electronically Signed: Deion Wesley MD at 17:12 EST , Service support , Wrist X-Ray 06/01/20 16:26 IMPRESSION: Normal x-ray examination of the wrist. Electronically Signed: Deion Wesley MD at 17:05 EST , Service support , - Medical Decision Making My interpretation of the plain films of the hand wrist and elbow are no acute fracture. Radiology concurs. Patient be discharged home with supportive care return if worsening or concerns ED Disposition - Plan for ED Patient: Disposition: Home or Assisted Living Diagnosis: Contusion of right hand, Right wrist sprain, Contusion of right elbow Instructions: ED Contusion, Upper Extremity Referrals: Jennifer Spicer DO [Primary Care Provider] - 10-14 Days if not better
== END 2020-06-01 17:49 | disposition home or self-care (01) ==
LOC: ED 17:07
PROVIDERS: Emergency Provider Emergency Medicine; PCP Family Medicine
DX: S63.501A Unspecified sprain of right wrist, initial encounter (principal); S60.221A Contusion of right hand, initial encounter; S50.01XA Contusion of right elbow, initial encounter; W19.XXXA Unspecified fall, initial encounter; Y93.9 Activity, unspecified; Y92.9 Unspecified place or not applicable; Y99.9 Unspecified external cause status; R29.6 Repeated falls; I25.10 Atherosclerotic heart disease of native coronary artery without angina pectoris; I25.5 Ischemic cardiomyopathy; I13.0 Hypertensive heart and chronic kidney disease with heart failure and stage 1 through stage 4 chronic kidney disease, or unspecified chronic kidney disease; I50.22 Chronic systolic (congestive) heart failure; E78.5 Hyperlipidemia, unspecified; I47.2 Ventricular tachycardia; I48.0 Paroxysmal atrial fibrillation; N18.30 Chronic kidney disease, stage 3 unspecified; E11.22 Type 2 diabetes mellitus with diabetic chronic kidney disease; I27.21 Secondary pulmonary arterial hypertension; Z95.5 Presence of coronary angioplasty implant and graft; Z95.810 Presence of automatic (implantable) cardiac defibrillator; Z79.4 Long term (current) use of insulin; Z79.01 Long term (current) use of 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s; Z79.899 Other long term (current) drug therapy; Z87.891 Personal history of nicotine dependence
CPT/HCPCS: 73080; 73110; 73130; 99282

== ENCOUNTER → 2020-06-10 14:14 | Outpatient (CLI) | payer MEDICARE, SELFPAY ==
[2016-06-12 14:02] VITALS: BMI 29.7
[2020-06-01 16:17] VITALS: BMI 27.6
--- NOTE | 2020-06-10 14:16 | RAD_ITS ---
STUDY: X-RAY - RIGHT HAND REASON FOR EXAM: Male, 69 years old. FALL,PAIN TECHNIQUE: 3 view(s) of the hand. COMPARISON: 06/01/2020 FINDINGS: Normal radiocarpal articulation. Normal distal radioulnar joint. Normal visualized carpal bones. Normal carpal articulations Mild arthrosis of the carpometacarpal articulation of the thumb. Normal second through fifth carpometacarpal joints. Normal metacarpi. Normal metacarpophalangeal joint of the thumb. Normal interphalangeal joint of the thumb. Normal proximal and distal phalanges of the thumb. Mild narrowing of the third metacarpal phalangeal joint. Normal proximal and distal interphalangeal joints of the second through fifth fingers. Normal phalanges of the second through fifth fingers. The soft tissue structures are unremarkable. No significant change since prior exam RAD/Hand Min 3 Views IMPRESSION: Mild degenerative changes. No acute fracture or other significant bony pathology Electronically Signed: Herberth Garcia MD at 17:11 EST , Service support ,
== END ==
LOC: MTRAD 14:15
PROVIDERS: PCP Family Medicine; Referring Provider Family Medicine; Visit Provider Family Medicine
DX: S69.91XA Unspecified injury of right wrist, hand and finger(s), initial encounter (principal)
CPT/HCPCS: 73130

== ENCOUNTER → 2020-08-27 12:50 | Outpatient (CLI) | payer MEDICARE, SELFPAY ==
[2016-06-12 14:02] VITALS: BMI 29.7
--- NOTE | 2020-08-27 12:52 | ECHOCS_ITS ---
Procedure This was a 2D Doppler, Color Flow transthoracic echocardiogram. The study was technically difficult. Contrast injection was performed. Exam performed in department. Left Ventricle Normal LV size. Moderately severe segmental systolic dysfunction (see wall motion). The estimated ejection fraction is 30 %. Mid-Anterior : Hypokinetic. Mid-Lateral : Hypokinetic. Mid-Posterior: Hypokinetic. Mid-Inferior: Hypokinetic. Mid-inferoseptal : Akinetic. Mid-anteroseptal : Akinetic. [place] : Akinetic. Right Ventricle Normal RV size. ICD or pacer leads identified within the right ventricle. Normal systolic function. Atria The left atrium is mildly enlarged. Normal right atrium. ICD or pacer leads identified within the right atrium. No doppler evidence for ASD. Mitral Valve There is no mitral annular calcification. Normal mitral valve. Mild-Moderate (1-2+) mitral valve insufficiency. Tricuspid Valve Normal tricuspid valve. Mild tricuspid valve insufficiency. Unable to estimate RV systolic pressure/pulmonary artery pressure due to technically difficult study. Aortic Valve Trisinus/trileaflet aortic valve. Mild diffuse aortic valve thickening. Mild focal aortic valve calcification. Trivial aortic valve insufficiency. Pulmonic Valve The pulmonic valve is not well visualized. Trivial pulmonic valve insufficiency. Great Vessels Normal sized aortic root. Pericardium/Pleural No pericardial effusion. Medication 22 gauge I.V. with prn adaptor inserted into right arm. Diluted definity 3.0ml given slow IV push to enhance endocardial definition. MMode/2D Measurements & Calculations LVIDd: 5.0 cm IVSd: 1.2 cm Ao root diam: 3.5 cm LVIDs: 3.3 cm LVPWd: 0.92 cm RVDd: 3.3 cm FS: 32.7 % LAV(MOD-bp): 65.8 ml LA A4 area: 22.2 cm2 LA dimension(2D): 4.4 cm LAV(MOD-bp) Indexed: 32.9 ml/m2 LAV(MOD-sp2): 58.7 ml LAV(MOD-sp4): 71.7 ml RA A4 area: 13.1 cm2 Time Measurements MV dec time: 0.13 sec Doppler Measurements & Calculations MV E max romina: 94.7 cm/sec Ao V2 max: 98.7 cm/sec LV V1 max: 82.5 cm/sec MV A max romina: 40.3 cm/sec Ao max P.9 mmHg LV V1 max P.7 mmHg MV E/A: 2.3 PA V2 max: 74.4 cm/sec ECHO/Echo Complete W/ Contrast Interpretation Summary The study was technically difficult. Contrast injection was performed. Moderately severe segmental systolic dysfunction (see wall motion). The estimated ejection fraction is 30 %. The left atrium is mildly enlarged. Mild-Moderate (1-2+) mitral valve insufficiency. Mild tricuspid valve insufficiency. Mild diffuse aortic valve thickening. Mild focal aortic valve calcification. Trivial pulmonic valve insufficiency. Unable to estimate RV systolic pressure/pulmonary artery pressure due to techni fer difficult study. Transmitral diastolic flow velocities suggest diastolic dysfunction (pseudonorm al pattern). ICD or pacer leads identified within the right atrium ICD or pacer leads identified within the right ventricle. Ordering Physician: Dequan Lei Referring Physician: Jennifer Spicer Performed By: Melissa Hawthorne RDCS, RVT
== END ==
LOC: CVS 12:50
PROVIDERS: PCP Family Medicine; Referring Provider Nurse Practitioner Family; Visit Provider Nurse Practitioner Family
DX: I25.10 Atherosclerotic heart disease of native coronary artery without angina pectoris (principal)
CPT/HCPCS: 93306; Q9957; A4216; C8929; J3490

== ENCOUNTER → 2020-09-12 07:58 | Outpatient (CLI) | payer MEDICARE, SELFPAY ==
[2016-06-12 14:02] VITALS: BMI 29.7
[2020-09-12 08:35] LABS: Absolute Lymphocyte Count 1.24 X10^3/uL (0.83-4.51); Basophil# 0.08 X10^3/uL; Basophil% 0.8 % (0-1); Eosinophil# 0.11 X10^3/uL; Hemoglobin 17.8 g/dL (13.0-16.5); Lymphocyte # 1.24 X10^3/ul (0.83-4.51); Lymphocyte % 11.7 % (19-41); Mean Corpuscular Hgb 29.3 pg (27.0-32.0); Mean Corpuscular Volume 91.8 fL (80-94); Mean Platelet Vol. 9.5 fl (6.2-12.0); Monocyte# 0.95 X10^3/uL; NRBC Flagged by Analyzer 0 % (0-5); Neutrophil % 75.3 % (47-70); Platelet Count 253 K/mm3 (150-450); RBC Distribution Width CV 15.9 % (11.6-14.6); RBC Distribution Width SD 52.1 fl (35.1-43.9); Red Blood Count 6.07 M/mm3 (4.6-6.2); White Blood Count 10.6 K/mm3 (4.4-11.0)
[2020-09-12 08:39] LABS: Hematocrit 55.7 % (40-54)
[2020-09-12 08:56] LABS: ALB/GLOB Ratio 0.9 RATIO (0.9-2.4); AST(SGOT) 22 U/L (15-37); Alanine Aminotransfer ALT/SGPT 20 U/L (16-61); Albumin, Serum 3.6 g/dL (3.2-5.0); Alkaline Phosphatase 71 U/L (45-117); Anion Gap 9 (5-15); BUN 30 mg/dL (7-18); BUN/Creat Ratio 14.3 RATIO (10-20); Calcium,Total 9.1 mg/dL (8.5-10.1); Chloride 100 mmol/L (98-107); Cholesterol 131 mg/dL (200); EST Glomerular Filtration Rate 34 mL/min (>60); Est Glom Filt Rate - Afr Amer 41 mL/min (>60); Globulin 4.1 g/dL (2.2-4.2); Glucose 130 mg/dL (74-106); High Density Lipoprotein 39 mg/dL; Potassium 4.5 mmol/L (3.5-5.1); Protein, Total 7.7 g/dL (6.4-8.2); Sodium Level 136 mmol/L (136-145); Triglycerides 184 mg/dL; Very Low Density Lipoprotein 37 mg/dL (5-40)
[2020-09-12 09:03] LABS: Hemoglobin A1c 9.6 % (3.8-5.6)
[2020-09-12 09:22] LABS: Microalbumin:Creatinine Ratio 701.3 mg/g CRE (<30 mg/g CRE)
== END ==
LOC: LAB 08:00
PROVIDERS: PCP Family Medicine; Referring Provider Family Medicine; Visit Provider Family Medicine
DX: I11.0 Hypertensive heart disease with heart failure (principal); I50.9 Heart failure, unspecified; E11.65 Type 2 diabetes mellitus with hyperglycemia; Z51.81 Encounter for therapeutic drug level monitoring
CPT/HCPCS: 36415; 80053; 80061; 82043; 82570; 83036; 85025

== ENCOUNTER 2020-11-02 22:40 | Emergency (ER) | payer MEDICARE, SELFPAY ==
[2016-06-12 14:02] VITALS: BMI 29.7
[2020-11-02 22:42] VITALS: BP 147/93; PULSE 70; RESP 20; TEMP 37; O2SAT 95; BMI 27.4
--- NOTE | 2020-11-02 23:06 | EX.ED.DYSGE1 ---
HPI History of Present Illness Chief Complaint: Hyperglycemia Informant: patient Onset/Context/Timing Onset: Yesterday Context: Gradual Onset Timing: Continuous Quality: Lightheaded Location: Generalized Worsened by: Nothing Relieved by: Nothing Narrative Narrative: Patient presents with elevated blood sugar that began today. Patient states he checked his blood sugar at home it was 531. Patient repeated approximately 15 minutes later and it was 538. Patient states he has been drinking more water than usual. Patient states he does drink a lot of water normally. Patient states he feels constant thirst. Patient denies any polyuria. Patient admits to an episode of nausea and vomiting yesterday. Patient states he feels lightheaded. Patient denies any chest pain or shortness of breath. Patient admits to a cough but denies any sputum production. [facility] Medical History (Updated 11/03/20 @ 02:[address] Enzo Arana, ) Atherosclerosis of coronary artery of [place] heart without angina pectoris Cardiogenic shock (06/08/16) Cardiomyopathy, ischemic Chronic systolic CHF (congestive heart failure) DDD (degenerative disc disease) Esophagitis determined by endoscopy (05/06/17) Essential hypertension Hyperlipidemia Hypertensive emergency Left atrial thrombus [employer] current use of 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 Nonsustained ventricular tachycardia Obesity (BMI 30.0-34.9) Old myocardial infarction Paroxysmal atrial fibrillation Secondary pulmonary arterial hypertension Stage 3 chronic kidney disease STEMI (ST elevation myocardial infarction) Type II diabetes mellitus Home Medications pantoprazole 40 mg PO BID 03/13/19 [History Last Taken 10/20/19] aspirin 81 mg PO DAILY@0800 10/20/19 [History Last Taken 10/20/19 08:00] spironolactone 25 mg PO DAILY 01/22/20 [History Last Taken Unknown] insulin NPH isoph U-100 human 30 units SC BREAKFAST pen 01/25/20 [Rx Last Taken Unknown] insulin NPH isoph U-100 human 30 units SC QHS pen 01/25/20 [Rx Last Taken Unknown] metolazone 2.5 mg tablet 2.5 mg PO .COMPLEX #4 tab 01/29/20 [Rx Last Taken Unknown] nitroglycerin 0.4 mg sublingual tablet 0.4 mg SUBLINGUAL Q5M PRN #25 tab 02/01/20 [Rx Last Taken Unknown] ranolazine 500 mg tablet,extended release,12 hr See Rx Instructions .ROUTE .COMPLEX #180 tab 02/01/20 [Rx Last Taken Unknown] furosemide 40 mg tablet 40 mg PO DAILY #90 tab 05/08/20 [Rx Last Taken Unknown] clopidogrel 75 mg tablet 75 mg PO DAILY #30 tab 06/24/20 [Rx Last Taken Unknown] apixaban 2.5 mg tablet 2.5 mg PO BID #60 tab 08/28/20 [Rx Last Taken Unknown] carvedilol 25 mg tablet 25 mg PO BID #180 tab 09/23/20 [Rx Last Taken Unknown] pravastatin 40 mg tablet 40 mg PO QHS #90 tab 09/23/20 [Rx Last Taken Unknown] Allergy/AdvReac Type Severity Reaction Status Date / Time diltiazem Allergy LOWER LEG Verified 11/02/20 22:41 SWELLING tamsulosin [From Flomax] Allergy Shortness Verified 11/02/20 22:41 of breath/muscle weakness atorvastatin calcium AdvReac MUSCLE Verified 11/02/20 22:41 [From Lipitor] WEAKNESS Family History Brother Sudden cardiac Surgical History H/O elbow surgery H/O left wrist surgery History of cardioversion (04/10/16) History of coronary artery stent placement (06/08/16) Presence of implantable cardioverter-defibrillator (ICD) S/P right inguinal hernia repair Status post knee surgery Social History Smoking Status: Former smoker quit date: 01/03/15 pack-years: 90 how long ago did patient quit smokin years ago alcohol intake: current alcohol intake frequency: a few times a month substance use type: does not use caffeine: Yes Type: coffee Number of servings: 1 ROS ROS ED Constitutional Constitutional ED: Denies chills or fever(s) Eyes Eyes: Denies blurry vision or change in vision ENT ENT ED: Denies rhinorrhea or sore throat Cardiovascular Cardiovascular: Denies chest pain or palpitations Respiratory/Chest Respiratory/Chest: Reports cough; Denies dyspnea Gastrointestinal Gastrointestinal: Reports nausea and vomiting Genitourinary Genitourinary ED: Denies dysuria or hematuria Musculoskeletal Musculoskeletal: Denies back pain or neck pain Integumentary Denies abscess or rash Neurologic Neurologic: Denies headache(s) or weakness Endocrine Endocrinology: Reports polydipsia; Denies polyuria Allergic/Immunologic Allergic/Immunologic ED: Denies mouth swelling or urticaria EXAM Physical Exam Const Vital Signs: 11/02/20 22:42 11/03/20 00:28 Temperature 98.6 F Temperature Source Oral Pulse Rate 70 70 Respiratory Rate 20 H 20 H Blood Pressure 147/93 H 147/90 H Blood Pressure Mean 111 109 Pulse Ox 95 95 Oxygen Delivery Method Room Air Nasal Cannula Positive well nourished and well developed General Appearance ED: well developed HEENT Reports moist mucous membranes Neck supple and no JVD Resp normal respiratory effort and clear to auscultation bilaterally Cardio regular rate, regular rhythm and no murmurs GI normal to inspection, nondistended, normoactive bowel sounds and non-tender Palpation: soft Extremity normal to inspection General Extremety ED: Negative for edema or tenderness General Extremity: Negative for edema Neuro oriented x3, CN's II-XII intact bilaterally and no sensory deficits noted Sensorium / Orientation: alert Motor Exam: strength 5/5 throughout Psych mental status grossly normal Skin no rashes or lesions noted MDM MDM MDM Narrative Medical decision making narrative: Patient was given 500 cc of normal saline. CBC was within normal limits. Comprehensive metabolic profile showed an elevated glucose of 472. Sodium was falsely low at 128. Potassium was 5.4 but this was a hemolyzed specimen. BUN was 40 and creatinine was 3.0. These are consistent with prior results. Serum acetone was negative. Patient was given an injection of Humalog here. Patient's repeat blood sugar after this was 470. Patient was given a repeat dose of Humalog. Repeat blood sugar after this was 343. Patient feels better and wants to go home. Patient was instructed to follow-up with his primary care physician in 3 to 5 days. Patient understood and was agreeable with the plan. All questions were answered. Lab Data Attestation: I reviewed the patient's lab results. Labs: Laboratory Results - last 24 hr 11/02/20 11/02/20 11/02/20 23:15 23:15 23:15 WBC 11.0 RBC 5.14 Hgb 15.8 Hct 47.3 MCV 92.0 MCH 30.7 MCHC 33.4 RDW Std Deviation 47.2 H RDW Coeff of [place] 13.9 Plt Count 215 MPV 10.5 Immature Gran % (Auto) 2.700 H Neut % (Auto) 79.6 H Lymph % (Auto) 7.4 L Parker % (Auto) 9.1 Eos % (Auto) 0.5 Baso % (Auto) 0.7 Absolute Neuts (auto) 8.7 H Absolute Lymphs (auto) 0.81 L Nucleated RBC % 0 Sodium 128 L Potassium 5.4 H Chloride 92 L Carbon Dioxide 29.0 Anion Gap 7 BUN 40 H Creatinine 3.00 H Estim Creat Clear Calc 23.57 Est GFR (MDRD) Af Amer 27 L Est GFR (MDRD) Non-Af 22 L BUN/Creatinine Ratio 13.3 Glucose 472 H* Calcium 7.3 L Total Bilirubin 0.60 AST 55 H ALT 21 Alkaline Phosphatase 173 H Total Protein 6.9 Albumin 2.9 L Globulin 4.0 Albumin/Globulin Ratio 0.7 L Urine Color Urine Clarity Urine pH Ur Specific Tracy Urine Protein Urine Glucose (UA) Urine Ketones Urine Occult Blood Urine Nitrite Urine Bilirubin Urine Urobilinogen Ur Leukocyte Esterase Urine RBC Urine WBC Ur Squamous Epith Cells Urine Bacteria Urine Mucus Acetone Level NEGATIVE POC Glucose 11/02/20 11/03/20 11/03/20 23:30 01:01 01:46 WBC RBC Hgb Hct MCV MCH MCHC RDW Std Deviation RDW Coeff of [place] Plt Count MPV Immature Gran % (Auto) Neut % (Auto) Lymph % (Auto) Parker % (Auto) Eos % (Auto) Baso % (Auto) Absolute Neuts (auto) Absolute Lymphs (auto) Nucleated RBC % Sodium Potassium Chloride Carbon Dioxide Anion Gap BUN Creatinine Estim Creat Clear Calc Est GFR (MDRD) Af Amer Est GFR (MDRD) Non-Af BUN/Creatinine Ratio Glucose Calcium Total Bilirubin AST ALT Alkaline Phosphatase Total Protein Albumin Globulin Albumin/Globulin Ratio Urine Color Yellow Urine Clarity Clear Urine pH 6.5 Ur Specific Tracy 1.010 Urine Protein 30 H Urine Glucose (UA) 1000 H Urine Ketones Negative Urine Occult Blood Negative Urine Nitrite Negative Urine Bilirubin Negative Urine Urobilinogen 1 H Ur Leukocyte Esterase Negative Urine RBC 0 SEEN Urine WBC 0 SEEN Ur Squamous Epith Cells 0 SEEN Urine Bacteria 0 SEEN Urine Mucus 0 SEEN Acetone Level POC Glucose 470 H* 423 H 11/03/20 02:37 WBC RBC Hgb Hct MCV MCH MCHC RDW Std Deviation RDW Coeff of [place] Plt Count MPV Immature Gran % (Auto) Neut % (Auto) Lymph % (Auto) Parker % (Auto) Eos % (Auto) Baso % (Auto) Absolute Neuts (auto) Absolute Lymphs (auto) Nucleated RBC % Sodium Potassium Chloride Carbon Dioxide Anion Gap BUN Creatinine Estim Creat Clear Calc Est GFR (MDRD) Af Amer Est GFR (MDRD) Non-Af BUN/Creatinine Ratio Glucose Calcium Total Bilirubin AST ALT Alkaline Phosphatase Total Protein Albumin Globulin Albumin/Globulin Ratio Urine Color Urine Clarity Urine pH Ur Specific Tracy Urine Protein Urine Glucose (UA) Urine Ketones Urine Occult Blood Urine Nitrite Urine Bilirubin Urine Urobilinogen Ur Leukocyte Esterase Urine RBC Urine WBC Ur Squamous Epith Cells Urine Bacteria Urine Mucus Acetone Level POC Glucose 343 H Discharge Plan Triage Chief Complaint: Hyperglycemia ED Provider: Enzo Arana Dx/Rx/DC Orders Clinical Impression: Hyperglycemia Instructions: ED Diabetic Hyperglycemia Prescriptions: No Action pantoprazole 40 MG tablet 40 mg PO BID RF: 0 aspirin 81 MG tablet,chewable 81 mg PO DAILY@0800 RF: 0 spironolactone 50 MG tablet 25 mg PO DAILY RF: 0 insulin NPH isoph U-100 human 100 UNITS/ML insulin pen 30 units SC BREAKFAST RF: 0 insulin NPH isoph U-100 human 100 UNITS/ML insulin pen 30 units SC QHS RF: 0 metolazone 2.5 mg tablet 2.5 mg PO .COMPLEX Qty: 4 RF: 11 nitroglycerin 0.4 mg tablet, sublingual 0.4 mg SUBLINGUAL Q5M PRN (Reason: Chest Pain) Qty: 25 RF: 0 ranolazine 500 mg tablet extended release 12 hr See Rx Instructions .ROUTE .COMPLEX Qty: 180 RF: 3 furosemide 40 mg tablet 40 mg PO DAILY Qty: 90 RF: 3 clopidogrel 75 mg tablet 75 mg PO DAILY Qty: 30 RF: 12 apixaban 2.5 mg tablet 2.5 mg PO BID Qty: 60 RF: 11 carvedilol 25 mg tablet 25 mg PO BID Qty: 180 RF: 3 pravastatin 40 mg tablet 40 mg PO QHS Qty: 90 RF: 3 Primary Care Provider: Jennifer Spicer Referrals: Jennifer Spicer DO [Primary Care Provider] - 3-5 Days Disposition Disposition: Home, Self Care
[2020-11-02 23:38] LABS: Absolute Lymphocyte Count 0.81 X10^3/uL (0.83-4.51); Absolute Neutrophil Count 8.7 X10^3/uL (2.0-7.7); Basophil# 0.08 X10^3/uL; Basophil% 0.7 % (0-1); Eosinophil# 0.05 X10^3/uL; Eosinophils% 0.5 % (0-5); Hematocrit 47.3 % (40-54); Hemoglobin 15.8 g/dL (13.0-16.5); Lymphocyte # 0.81 X10^3/ul (0.83-4.51); Lymphocyte % 7.4 % (19-41); Mean Corp Hgb Conc 33.4 g/dL (32-36); Mean Corpuscular Hgb 30.7 pg (27.0-32.0); Mean Platelet Vol. 10.5 fl (6.2-12.0); Monocyte% 9.1 % (0-10); NRBC Flagged by Analyzer 0 % (0-5); Neutrophil # 8.71 X10^3/uL (2.7-7.7); Neutrophil % 79.6 % (47-70); Platelet Count 215 K/mm3 (150-450); RBC Distribution Width CV 13.9 % (11.6-14.6); RBC Distribution Width SD 47.2 fl (35.1-43.9); Red Blood Count 5.14 M/mm3 (4.6-6.2)
[2020-11-02 23:40] LABS: Bacteria 0 SEEN /hpf (None Seen); Mucous, Urine 0 SEEN /hpf (<or=2+); Red Blood Cells-Urine 0 SEEN /hpf (0-5); Squamous Epithelial Cells - UA 0 SEEN /hpf (0-5); White Blood Cells 0 SEEN /hpf (0-5)
[2020-11-02 23:44] LABS: ALB/GLOB Ratio 0.7 RATIO (0.9-2.4); AST(SGOT) 55 U/L (15-37); Alanine Aminotransfer ALT/SGPT 21 U/L (16-61); Albumin, Serum 2.9 g/dL (3.2-5.0); Alkaline Phosphatase 173 U/L (45-117); Anion Gap 7 (5-15); BUN 40 mg/dL (7-18); BUN/Creat Ratio 13.3 RATIO (10-20); Calcium,Total 7.3 mg/dL (8.5-10.1); Chloride 92 mmol/L (98-107); EST Glomerular Filtration Rate 22 mL/min (>60); Est Glom Filt Rate - Afr Amer 27 mL/min (>60); Estimated Creatinine Clearance 23.57 ml/min; Glucose 472 mg/dL (74-106); Potassium 5.4 mmol/L (3.5-5.1); Protein, Total 6.9 g/dL (6.4-8.2); Sodium Level 128 mmol/L (136-145)
[2020-11-02 23:55] LABS: Color, Urine Yellow (Yellow); Glucose, Dipstick 1000 mg/dl (Normal); Ketone-Dipstick Negative (Negative); Leukocyte Esterase-Dipstick Negative /ul (Negative); Nitrite-Dipstick Negative (Negative); Occult Blood-Urine Negative /ul (Negative); Protein-Dipstick 30 mg/dl (Negative); Urine Bilirubin Dipstick Negative (Negative); Urine Clarity Clear (Clear); Urine Urobilinogen 1 mg/dl (Normal); Urine pH 6.5 (5.0 - 8.0)
[2020-11-03] MEDS: Insulin Lispro 100 UNIT/ML INSULN.PEN 15 UNIT SC (00:27)
[2020-11-03 00:28] VITALS: BP 147/90; PULSE 70; RESP 20; O2SAT 95
[2020-11-03 01:06] LABS: Bedside Glucose 470 mg/dL (70-110)
[2020-11-03 01:51] LABS: Bedside Glucose 423 mg/dL (70-110)
[2020-11-03] MEDS: Insulin Lispro 100 UNIT/ML INSULN.PEN 10 UNIT SC (01:56)
[2020-11-03 02:41] LABS: Bedside Glucose 343 mg/dL (70-110)
[2020-11-03 02:44] VITALS: BP 139/84; PULSE 77; RESP 18; O2SAT 95
[2020-11-03 02:53] VITALS: BP 139/84; PULSE 77; RESP 18; O2SAT 95
== END 2020-11-03 02:52 | disposition home or self-care (01) ==
PROVIDERS: Emergency Provider Emergency Medicine; PCP Family Medicine
DX: E11.65 Type 2 diabetes mellitus with hyperglycemia (principal); I25.10 Atherosclerotic heart disease of native coronary artery without angina pectoris; I13.0 Hypertensive heart and chronic kidney disease with heart failure and stage 1 through stage 4 chronic kidney disease, or unspecified chronic kidney disease; E11.22 Type 2 diabetes mellitus with diabetic chronic kidney disease; N18.30 Chronic kidney disease, stage 3 unspecified; I50.22 Chronic systolic (congestive) heart failure; I48.0 Paroxysmal atrial fibrillation; I25.2 Old myocardial infarction; E78.5 Hyperlipidemia, unspecified; E66.9 Obesity, unspecified; Z68.27 Body mass index [BMI] 27.0-27.9, adult; Z79.4 Long term (current) use of insulin; Z79.82 Long term (current) use of aspirin; Z79.899 Other long term (current) drug therapy; Z87.891 Personal history of nicotine dependence
CPT/HCPCS: 80053; 81001; 82009; 82962; 85025; 96360; 99285

== ENCOUNTER → 2020-12-30 10:20 | Outpatient (CLI) | payer MEDICARE, SELFPAY ==
[2016-06-12 14:02] VITALS: BMI 29.7
[2020-12-30 11:50] LABS: Anion Gap 9 (5-15); BUN 36 mg/dL (7-18); BUN/Creat Ratio 17.2 RATIO (10-20); Calcium,Total 8.7 mg/dL (8.5-10.1); Chloride 96 mmol/L (98-107); Creatinine, Serum 2.09 mg/dL (0.70-1.30); EST Glomerular Filtration Rate 34 mL/min (>60); Est Glom Filt Rate - Afr Amer 41 mL/min (>60); Glucose 248 mg/dL (74-106); Potassium 4.3 mmol/L (3.5-5.1); Sodium Level 133 mmol/L (136-145)
== END ==
LOC: LAB 10:21
PROVIDERS: PCP Family Medicine; Referring Provider Internal Medicine Cardiovascular Disease; Visit Provider Internal Medicine Cardiovascular Disease
DX: I25.10 Atherosclerotic heart disease of native coronary artery without angina pectoris (principal); I50.22 Chronic systolic (congestive) heart failure; I48.0 Paroxysmal atrial fibrillation; Z95.5 Presence of coronary angioplasty implant and graft
CPT/HCPCS: 36415; 80048

== ENCOUNTER 2021-01-02 19:31 | Emergency (ER) | payer MEDICARE, SELFPAY ==
[2016-06-12 14:02] VITALS: BMI 29.7
[2021-01-02 19:32] VITALS: BP 183/98; PULSE 70; RESP 17; TEMP 35.9; O2SAT 95; BMI 26.6
[2021-01-02 19:35] VITALS: BP 183/98; PULSE 70; RESP 17; TEMP 35.9; O2SAT 95
--- NOTE | 2021-01-02 20:41 | EKG12_ITS ---
Test Reason : CP/SOB Blood Pressure : / mmHG Vent. Rate : 070 BPM Atrial Rate : 312 BPM P-R Int : 000 ms QRS Dur : 142 ms QT Int : 478 ms P-R-T Axes : 000 163 043 degrees QTc Int : 516 ms Ventricular-paced rhythm Biventricular pacemaker detected Abnormal ECG Confirmed by BELKIS METZ, JUANJOSE ([id number]), avid editor LISBET HAWK ([id number]) on 01/06/2021 8:03:21 AM Referred By: BEATRIZ Confirmed By:JUANJOSE TAMAYO MD
--- NOTE | 2021-01-02 20:49 | RAD_ITS ---
EXAM: XR CHEST, 1 VIEW CLINICAL INDICATION: cough TECHNIQUE: Frontal view of the chest. This report was created using [employer] report generation technology. COMPARISON: 01.22.20 FINDINGS: LUNGS AND PLEURAL SPACES: Unremarkable. No consolidation or edema. No pneumothorax. No effusion. HEART: Unremarkable. Cardiac silhouette not enlarged. MEDIASTINUM: Central airways and mediastinal contour are unremarkable. BONES/JOINTS: Unremarkable. SOFT TISSUES: Unremarkable. TUBES, LINES AND DEVICES: There is a left sided pacemaker battery pack. RAD/Chest 1 View (Portable) IMPRESSION: No acute findings in the chest. Electronically Signed: Sanjay Gonzalez MD at 21:19 EDT , Service support ,
[2021-01-02 20:58] LABS: Absolute Lymphocyte Count 1.28 X10^3/uL (0.83-4.51); Absolute Neutrophil Count 7.6 X10^3/uL (2.0-7.7); Basophil# 0.11 X10^3/uL; Eosinophil# 0.23 X10^3/uL; Eosinophils% 2.2 % (0-5); Hematocrit 53.4 % (40-54); Hemoglobin 17.4 g/dL (13.0-16.5); Lymphocyte # 1.28 X10^3/ul (0.83-4.51); Lymphocyte % 12.1 % (19-41); Mean Corp Hgb Conc 32.6 g/dL (32-36); Mean Corpuscular Hgb 30.3 pg (27.0-32.0); Mean Corpuscular Volume 92.9 fL (80-94); Monocyte# 1.09 X10^3/uL; Monocyte% 10.3 % (0-10); NRBC Flagged by Analyzer 0 % (0-5); Neutrophil # 7.57 X10^3/uL (2.7-7.7); Neutrophil % 71.8 % (47-70); Platelet Count 265 K/mm3 (150-450); RBC Distribution Width CV 14.3 % (11.6-14.6); RBC Distribution Width SD 48.4 fl (35.1-43.9); Red Blood Count 5.75 M/mm3 (4.6-6.2); White Blood Count 10.6 K/mm3 (4.4-11.0)
--- NOTE | 2021-01-02 21:01 | EDS_ITS ---
HPI History of Present Illness Chief Complaint: Fatigue Informant: patient and family Narrative Narrative: Presents here with daughter evaluation increasing fatigue cough for the past week. 2 bouts of diarrhea yesterday. Denies fevers. States increasing dyspnea. Denies orthopnea. History of CHF with an AICD. Daughter reported a week ago had his defibrillator interrogated reported his Lasix was increased to 40 mg twice a day. He had labs checked on Wednesday states his renal function was stable. Daughter reports increasing fatigue since then. He is followed by Dr. Garcia. Has had 6 stents in the past. Denies any chest pains. He is Covid vaccinated. Denies loss of taste or smell. Denies Covid vaccinations in the past. History of atrial fibrillation on Eliquis twice a day. Daughter reported there is concerns of fluid around his heart therefore the diuretics was increased. [facility] Medical History Atherosclerosis of coronary artery of [place] heart without angina pectoris Cardiogenic shock (06/08/16) Cardiomyopathy, ischemic Chronic systolic CHF (congestive heart failure) DDD (degenerative disc disease) Esophagitis determined by endoscopy (05/06/17) Essential hypertension Hyperlipidemia Hypertensive emergency ICD (implantable cardioverter-defibrillator) in place Left atrial thrombus prison current use of 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 Nonsustained ventricular tachycardia Obesity (BMI 30.0-34.9) Old myocardial infarction Paroxysmal atrial fibrillation Secondary pulmonary arterial hypertension Stage 3 chronic kidney disease STEMI (ST elevation myocardial infarction) Type II diabetes mellitus Home Medications pantoprazole 40 mg PO BID 03/13/19 [History Last Taken 10/20/19] aspirin 81 mg PO DAILY@0800 10/20/19 [History Last Taken 10/20/19 08:00] spironolactone 25 mg PO DAILY 01/22/20 [History Last Taken Unknown] insulin NPH isoph U-100 human 30 units SC BREAKFAST pen 01/25/20 [Rx Last Taken Unknown] insulin NPH isoph U-100 human 30 units SC QHS pen 01/25/20 [Rx Last Taken Unknown] metolazone 2.5 mg tablet 2.5 mg PO .COMPLEX #4 tab 01/29/20 [Rx Last Taken Unknown] nitroglycerin 0.4 mg sublingual tablet 0.4 mg SUBLINGUAL Q5M PRN #25 tab 02/01/20 [Rx Last Taken Unknown] ranolazine 500 mg tablet,extended release,12 hr See Rx Instructions .ROUTE .COMPLEX #180 tab 02/01/20 [Rx Last Taken Unknown] clopidogrel 75 mg tablet 75 mg PO DAILY #30 tab 06/24/20 [Rx Last Taken Unknown] apixaban 2.5 mg tablet 2.5 mg PO BID #60 tab 08/28/20 [Rx Last Taken Unknown] carvedilol 25 mg tablet 25 mg PO BID #180 tab 09/23/20 [Rx Last Taken Unknown] pravastatin 40 mg tablet 40 mg PO QHS #90 tab 09/23/20 [Rx Last Taken Unknown] furosemide 40 mg tablet 40 mg PO BID #90 tab 12/26/20 [Rx Last Taken Unknown] Allergy/AdvReac Type Severity Reaction Status Date / Time diltiazem Allergy LOWER LEG Verified 01/02/21 19:35 SWELLING tamsulosin [From Flomax] Allergy Shortness Verified 01/02/21 19:35 of breath/muscle weakness atorvastatin calcium AdvReac MUSCLE Verified 01/02/21 19:35 [From Lipitor] WEAKNESS Family History Brother Sudden cardiac Surgical History H/O elbow surgery H/O left wrist surgery History of cardioversion (04/10/16) History of coronary artery stent placement (06/08/16) Presence of implantable cardioverter-defibrillator (ICD) S/P right inguinal hernia repair Status post knee surgery Social History Smoking Status: Former smoker quit date: 01/03/15 pack-years: 90 how long ago did patient quit smokin years ago alcohol intake: current alcohol intake frequency: a few times a month substance use type: does not use caffeine: Yes Type: coffee Number of servings: 1 ROS ROS ED Constitutional Constitutional ED: Denies chills, fever(s) or sweats Eyes Eyes: Denies change in vision ENT ENT ED: Denies dysphagia or sore throat Cardiovascular Cardiovascular: Denies chest pain, leg edema, orthopnea, palpitations or racing heartbeat Respiratory/Chest Respiratory/Chest: Reports cough and dyspnea; Denies dyspnea on exertion or orthopnea Gastrointestinal Gastrointestinal: Denies abdominal pain, diarrhea, nausea or vomiting Genitourinary Genitourinary ED: Denies dysuria, hematuria or urinary frequency Musculoskeletal Musculoskeletal: Denies back pain, extremity pain or neck pain Integumentary Denies rash or wounds Neurologic Neurologic: Denies headache(s), paresthesias or weakness EXAM Physical Exam Const Vital Signs: 01/02/21 19:32 01/02/21 19:35 01/02/21 21:48 Temperature 96.7 F L 96.7 F L Temperature Source Temporal Temporal Pulse Rate 70 70 70 Respiratory Rate 17 17 19 H Blood Pressure 183/98 H 183/98 H Blood Pressure Mean 126 126 Pulse Ox 95 95 94 Oxygen Delivery Method Room Air Room Air Room Air 01/02/21 22:07 Temperature Temperature Source Pulse Rate 70 Respiratory Rate 24 H Blood Pressure 168/90 H Blood Pressure Mean Pulse Ox 95 Oxygen Delivery Method Positive well nourished and well developed General Appearance ED: well developed and NAD HEENT Reports moist mucous membranes normocephalic and atraumatic Eyes PERRL, EOMs intact bilaterally and conjunctivae normal General Eye ED: Yes normal appearance of both eyes Neck no lymphadenopathy and supple General: Negative for tenderness Chest Wall Chest: Negative for tenderness Resp normal respiratory effort and normal air movement Effort and Inspection: symmetric chest movement; Negative for respiratory distress Cardio regular rate, regular rhythm and no murmurs Peripheral Pulses: pulses 2+ throughout GI normal to inspection, nondistended, normoactive bowel sounds and non-tender Palpation: Negative for guarding or rebound tenderness present Back/Spine no CVA tenderness and no thoracic nor lumbar tenderness Extremity normal to inspection General Extremety ED: Negative for edema or tenderness General Extremity: Negative for edema Neuro oriented x3 and no sensory deficits noted Sensorium / Orientation: awake and alert Skin no rashes or lesions noted and no wounds MDM MDM MDM Narrative Medical decision making narrative: Patient vital signs stable in the ED. Denies any orthopnea symptoms. Reporting increasing fatigue. He stated increasing shortness of breath and cough along with diarrhea yesterday. He is Covid vaccinated. I did obtain Covid swab which was negative. Labs are all stable. Creatinine 2.43 at his baseline in the middle. His last 1 was 2.09. He is not having clinical swelling. Chest x-ray urine negative. I performed a bedside ultrasound of his heart I did not note any pericardial effusion. Patient and daughter more reassured. Discussed with them the call cardiology office tomorrow to discuss his Lasix regimen. Discussed for him to get dry weight and to weigh himself daily for monitoring. Plan of care should be made with his cardiology office. Patient is stable for discharge. All questions were answered. Lab Data Attestation: I reviewed the patient's lab results. Labs: Laboratory Results - last 24 hr 01/02/21 01/02/21 01/02/21 19:53 19:53 19:53 WBC 10.6 RBC 5.75 Hgb 17.4 H Hct 53.4 MCV 92.9 MCH 30.3 MCHC 32.6 RDW Std Deviation 48.4 H RDW Coeff of [place] 14.3 Plt Count 265 MPV 10.0 Immature Gran % (Auto) 2.600 H Neut % (Auto) 71.8 H Lymph % (Auto) 12.1 L [place] % (Auto) 10.3 H Eos % (Auto) 2.2 Baso % (Auto) 1.0 Absolute Neuts (auto) 7.6 Absolute Lymphs (auto) 1.28 Nucleated RBC % 0 Sodium 131 L Potassium 4.3 Chloride 96 L Carbon Dioxide 26.0 Anion Gap 9 BUN 40 H Creatinine 2.43 H Estim Creat Clear Calc 29.09 Est GFR (MDRD) Af Amer 34 L Est GFR (MDRD) Non-Af 28 L BUN/Creatinine Ratio 16.5 Glucose 261 H Calcium 8.5 Troponin I High Sens 30 B-Natriuretic Peptide 97.9 Urine Color Urine Clarity Urine pH Ur Specific [place] Urine Protein Urine Glucose (UA) Urine Ketones Urine Occult Blood Urine Nitrite Urine Bilirubin Urine Urobilinogen Ur Leukocyte Esterase Urine RBC Urine WBC Ur Squamous Epith Cells Urine Bacteria Hyaline Casts Urine Mucus 01/02/21 21:07 WBC RBC Hgb Hct MCV MCH MCHC RDW Std Deviation RDW Coeff of [place] Plt Count MPV Immature Gran % (Auto) Neut % (Auto) Lymph % (Auto) Bar[place] % (Auto) Eos % (Auto) Baso % (Auto) Absolute Neuts (auto) Absolute Lymphs (auto) Nucleated RBC % Sodium Potassium Chloride Carbon Dioxide Anion Gap BUN Creatinine Estim Creat Clear Calc Est GFR (MDRD) Af Amer Est GFR (MDRD) Non-Af BUN/Creatinine Ratio Glucose Calcium Troponin I High Sens B-Natriuretic Peptide Urine Color Yellow Urine Clarity Sl. Cloudy Urine pH 6.0 Ur Specific [place] 1.020 Urine Protein 100 H Urine Glucose (UA) 50 H Urine Ketones Negative Urine Occult Blood Negative Urine Nitrite Negative Urine Bilirubin Negative Urine Urobilinogen Normal Ur Leukocyte Esterase Negative Urine RBC 0 SEEN Urine WBC 0 SEEN Ur Squamous Epith Cells 0-5 SEEN Urine Bacteria 0 SEEN Hyaline Casts 0-5 SEEN Urine Mucus 0 SEEN Radiography Chest X-Ray - ED: 1 View, Read by ED Physician and Read by Radiologist Diagnostic Testing: Radiology Impression Chest X-Ray 01/02/21 20:49 IMPRESSION: No acute findings in the chest. Electronically Signed: Sanjay Gonzalez MD at 21:19 EDT , Service support , EKG Initial EKG: Attestation: I personally reviewed and interpreted this EKG as follows: Comments: Biventricular paced, rate of 70. No ST changes. Flutter was noted in between. Discharge Plan Triage Chief Complaint: Fatigue ED Provider: Nitin Alvarado Dx/Rx/DC Orders Clinical Impression: URI, acute, Shortness of breath, Fatigue, CKD (chronic kidney disease) Instructions: CKD Dc, ED URI, Viral, No Abx (Adult) Prescriptions: No Action pantoprazole 40 MG tablet 40 mg PO BID RF: 0 aspirin 81 MG tablet,chewable 81 mg PO DAILY@0800 RF: 0 spironolactone 50 MG tablet 25 mg PO DAILY RF: 0 insulin NPH isoph U-100 human 100 UNITS/ML insulin pen 30 units SC BREAKFAST RF: 0 insulin NPH isoph U-100 human 100 UNITS/ML insulin pen 30 units SC QHS RF: 0 metolazone 2.5 mg tablet 2.5 mg PO .COMPLEX Qty: 4 RF: 11 nitroglycerin 0.4 mg tablet, sublingual 0.4 mg SUBLINGUAL Q5M PRN (Reason: Chest Pain) Qty: 25 RF: 0 ranolazine 500 mg tablet extended release 12 hr See Rx Instructions .ROUTE .COMPLEX Qty: 180 RF: 3 clopidogrel 75 mg tablet 75 mg PO DAILY Qty: 30 RF: 12 apixaban 2.5 mg tablet 2.5 mg PO BID Qty: 60 RF: 11 carvedilol 25 mg tablet 25 mg PO BID Qty: 180 RF: 3 pravastatin 40 mg tablet 40 mg PO QHS Qty: 90 RF: 3 furosemide 40 mg tablet 40 mg PO BID Qty: 90 RF: 3 Primary Care Provider: Jennifer Spicer Referrals: Jennifer Spicer DO [Primary Care Provider] - Hema Garcia MD [STAFF PHYSICIAN] - 3-5 Days Activity Restrictions/Additional Instructions: Your creatinine 2.43 today, in the middle of all your labs with comparison. 2.093 days ago. Discussed with your cardiology team for adjustments of your Lasix. Discussed your dry weight to help with management of your CHF. Your Covid testing negative today. Disposition Disposition: Home, Self Care Discharge Date/Time: 01/02/21 22:08
[2021-01-02 21:10] LABS: Bacteria 0 SEEN /hpf (None Seen); Mucous, Urine 0 SEEN /hpf (<or=2+); Red Blood Cells-Urine 0 SEEN /hpf (0-5); White Blood Cells 0 SEEN /hpf (0-5)
[2021-01-02 21:22] LABS: Color, Urine Yellow (Yellow); Glucose, Dipstick 50 mg/dl (Normal); Ketone-Dipstick Negative (Negative); Leukocyte Esterase-Dipstick Negative /ul (Negative); Nitrite-Dipstick Negative (Negative); Occult Blood-Urine Negative /ul (Negative); Protein-Dipstick 100 mg/dl (Negative); Urine Bilirubin Dipstick Negative (Negative); Urine Clarity Sl. Cloudy (Clear); Urine Urobilinogen Normal (Normal)
[2021-01-02 21:25] LABS: BNP,B-Type NATRIURETIC PEPTIDE 97.9 pg/mL (0-100)
[2021-01-02 21:29] LABS: Anion Gap 9 (5-15); BUN 40 mg/dL (7-18); BUN/Creat Ratio 16.5 RATIO (10-20); Calcium,Total 8.5 mg/dL (8.5-10.1); Chloride 96 mmol/L (98-107); Creatinine, Serum 2.43 mg/dL (0.70-1.30); EST Glomerular Filtration Rate 28 mL/min (>60); Est Glom Filt Rate - Afr Amer 34 mL/min (>60); Estimated Creatinine Clearance 29.09 ml/min; Glucose 261 mg/dL (74-106); Potassium 4.3 mmol/L (3.5-5.1); Sodium Level 131 mmol/L (136-145); Troponin-I HS 30 pg/mL (3.0-78.0)
[2021-01-02 21:48] VITALS: PULSE 70; RESP 19; O2SAT 94
[2021-01-02 21:49] LABS: Hyaline Cast 0-5 SEEN /lpf (0-5); Squamous Epithelial Cells - UA 0-5 SEEN /hpf (0-5)
[2021-01-02 22:07] VITALS: BP 168/90; PULSE 70; RESP 24; O2SAT 95
== END 2021-01-02 22:08 | disposition home or self-care (01) ==
PROVIDERS: Emergency Provider Emergency Medicine; PCP Family Medicine
DX: J06.9 Acute upper respiratory infection, unspecified (principal); R06.02 Shortness of breath; R53.83 Other fatigue; I13.0 Hypertensive heart and chronic kidney disease with heart failure and stage 1 through stage 4 chronic kidney disease, or unspecified chronic kidney disease; E11.22 Type 2 diabetes mellitus with diabetic chronic kidney disease; I50.22 Chronic systolic (congestive) heart failure; N18.30 Chronic kidney disease, stage 3 unspecified; I48.0 Paroxysmal atrial fibrillation; I25.2 Old myocardial infarction; I25.10 Atherosclerotic heart disease of native coronary artery without angina pectoris; I25.5 Ischemic cardiomyopathy; E78.5 Hyperlipidemia, unspecified; Z95.810 Presence of automatic (implantable) cardiac defibrillator; Z87.891 Personal history of nicotine dependence; Z79.899 Other long term (current) drug therapy; Z79.82 Long term (current) use of aspirin; Z79.4 Long term (current) use of insulin
CPT/HCPCS: 36415; 71045; 80048; 81001; 83880; 84484; 85025; 87426; 93005; 99285

== ENCOUNTER 2021-06-11 21:18 | Observation (INO) | payer MEDICARE, SELFPAY ==
[2016-06-12 14:02] VITALS: BMI 29.7
[2021-06-11 21:26] VITALS: BP 151/98; PULSE 70; RESP 21; TEMP 36.9; O2SAT 94; BMI 24.7
--- NOTE | 2021-06-11 21:29 | EKG12_ITS ---
Test Reason : DYSRHYTHMIA Blood Pressure : / mmHG Vent. Rate : 070 BPM Atrial Rate : 300 BPM P-R Int : 000 ms QRS Dur : 152 ms QT Int : 476 ms P-R-T Axes : 263 155 072 degrees QTc Int : 514 ms Ventricular-paced rhythm Biventricular pacemaker detected Abnormal ECG Confirmed by BELKIS METZ, JUANJOSE ([id number]), pictures editor LISBET HAWK ([id number]) on 06/13/2021 8:36:44 AM Referred By: MT Confirmed By:JUANJOSE TAMAYO MD
[2021-06-11 21:31] VITALS: O2SAT 96
--- NOTE | 2021-06-11 21:35 | CT_ITS ---
INDICATION: Dizzy falling EXAMINATION: CT BRAIN - CT Head or Brain W/O Contrast Injection TECHNIQUE: Multiple axial images were obtained of the head without intravenous contrast. A radiation dose optimization technique was used for this scan. IV Contrast dosage and agent: None. COMPARISON: There is a wide mouth of the RA FINDINGS: BRAIN PARENCHYMA: No intra- or extra-axial hemorrhage. No intracranial mass or mass effect. Mild bilateral chronic small vessel ischemic changes, bilaterally symmetric. Carrillo/white matter differentiation is maintained and there is no blurring of the basal ganglia. There is no hyperdense vessel. Atherosclerosis intracranial vertebral arteries and cavernous carotid arteries. Posterior fossa structures are unremarkable. CSF SPACES: Appropriate for age. No hydrocephalus. Basal cisterns are patent. CALVARIUM, SKULL BASE, PARANASAL SINUSES AND MASTOID AIR CELLS: Clear. No discrete lytic or blastic abnormalities. ORBITS: Both globes, extraocular muscles, optic nerves and retrobulbar fat appear unremarkable. ASPECTS Score for Acute Strokes: 10 CT/Brain/Head without Contrast IMPRESSION: Mild chronic small vessel ischemic changes. No acute intracranial pathology. Electronically Signed: Sal Tabor DO at 22:25 EST ,
[2021-06-11] MEDS: 0.9% Normal Saline 1,000 ML 150 ML IV (21:49)
[2021-06-11 21:50] LABS: Absolute Lymphocyte Count 0.71 X10^3/uL (0.83-4.51); Absolute Neutrophil Count 16.1 X10^3/uL (2.0-7.7); Basophil# 0.11 X10^3/uL; Basophil% 0.6 % (0-1); Eosinophil# 0.02 X10^3/uL; Eosinophils% 0.1 % (0-5); Hematocrit 51.5 % (40-54); Hemoglobin 17.5 g/dL (13.0-16.5); Lymphocyte # 0.71 X10^3/ul (0.83-4.51); Lymphocyte % 3.7 % (19-41); Mean Corpuscular Hgb 30.7 pg (27.0-32.0); Mean Corpuscular Volume 90.4 fL (80-94); Mean Platelet Vol. 9.4 fl (6.2-12.0); Monocyte# 1.69 X10^3/uL; Monocyte% 8.9 % (0-10); NRBC Flagged by Analyzer 0 % (0-5); Neutrophil # 16.06 X10^3/uL (2.7-7.7); Neutrophil % 84.9 % (47-70); POSITIVE DIFFERENTIAL YES; Platelet Count 295 K/mm3 (150-450); RBC Distribution Width CV 13.3 % (11.6-14.6); RBC Distribution Width SD 43.7 fl (35.1-43.9); White Blood Count 18.9 K/mm3 (4.4-11.0)
[2021-06-11 21:52] LABS: Differential Indicated SCAN CRITERIA MET
[2021-06-11 22:10] LABS: BNP,B-Type NATRIURETIC PEPTIDE 161.4 pg/mL (0-100)
[2021-06-11 22:12] LABS: Anion Gap 10 (5-15); BUN 54 mg/dL (7-18); BUN/Creat Ratio 20.2 RATIO (10-20); Chloride 93 mmol/L (98-107); Creatinine, Serum 2.67 mg/dL (0.70-1.30); EST Glomerular Filtration Rate 25 mL/min (>60); Est Glom Filt Rate - Afr Amer 31 mL/min (>60); Estimated Creatinine Clearance 26.48 ml/min; Glucose 279 mg/dL (74-106); Potassium 4.4 mmol/L (3.5-5.1); Sodium Level 129 mmol/L (136-145); Troponin-I HS 27 pg/mL (3.0-78.0)
--- NOTE | 2021-06-11 22:15 | RAD_ITS ---
INDICATION: chest pain EXAMINATION/TECHNIQUE: X-RAY - XR Chest 1 View COMPARISON: None. FINDINGS: LINES/DEVICES: None. Left chest dual-lead cardiac conduction device LUNGS: Symmetric normal lung volumes. No airspace opacity or abnormal interstitial pattern. No nodule or mass. No pleural effusion or pneumothorax. MEDIASTINUM AND CARDIOVASCULAR STRUCTURES: Normal size and contour of the cardiomediastinal silhouette. No evidence of pulmonary vascular congestion. BONES AND SOFT TISSUES: No abnormality within limits of the exam. RAD/Chest 1 View (Portable) IMPRESSION: 1. No radiographic evidence of acute cardiopulmonary disease. Electronically Signed: Sal Tabor DO at 22:43 EST ,
--- NOTE | 2021-06-11 22:15 | RAD_ITS ---
INDICATION: Right fall injury EXAMINATION/TECHNIQUE: X-RAY - RIGHT XR Elbow Min 3 Views COMPARISON: None. FINDINGS: SOFT TISSUES: Small, subcentimeter focus of air projects over the anterior, medial elbow, roughly 5 cm distal to the radial head. No radiopaque foreign body. BONES/JOINTS: There is no displacement of the anterior or posterior fat pads. No acute fracture or subluxation. Normal alignment. There are advanced degenerative changes radiocapitellar and ulnar trochlear articulations. No sclerotic or destructive changes observed. RAD/Elbow min 3 Views IMPRESSION: Advanced degenerative changes as above. No fracture or focal malalignment. Small focus of soft tissue gas projects over the anteromedial, proximal forearm. Electronically Signed: Sal Tabor DO at 22:47 EST ,
--- NOTE | 2021-06-11 22:15 | RAD_ITS ---
INDICATION: Fall injury EXAMINATION/TECHNIQUE: X-RAY - RIGHT XR Shoulder Min 2 Views 4 VIEWS COMPARISON: No prior right shoulder imaging. Comparison is made with right elbow x-rays from the same evening. FINDINGS: SOFT TISSUES: No soft tissue swelling or gas. No radiopaque foreign body. BONES/JOINTS: No acute fracture or malalignment. There are moderately advanced degenerative changes glenohumeral joint and mild degenerative changes acromioclavicular joint. No sclerotic or destructive changes observed. RAD/Shoulder min 2 Views IMPRESSION: Degenerative changes as above. Electronically Signed: Sal Tabor DO at 22:44 EST ,
[2021-06-11 22:33] LABS: Differential Comment SCANNED
--- NOTE | 2021-06-11 23:17 | EDS_ITS ---
HPI History of Present Illness Chief Complaint: Shortness of Breath Narrative Narrative: Presents with family reporting that basically he got dizzy yesterday and fell injuring his right side right shoulder right elbow, he may have struck his head he does not think so he has no neck pain no real head pain, no chest or abdominal pain he is eating and drinking well bowel bladder habits unremarkable, his chief complaint is persistent falling since the event yesterday, and right shoulder and right elbow discomfort, is a prior HI and he believes he has 4-5 stents his cardiovascular status has been stable [facility] Medical History Atherosclerosis of coronary artery of [place] heart without angina pectoris Cardiogenic shock (06/08/16) Cardiomyopathy, ischemic Chronic systolic CHF (congestive heart failure) DDD (degenerative disc disease) Esophagitis determined by endoscopy (05/06/17) Essential hypertension Hyperglycemia Hyperlipidemia Hypertensive emergency Left atrial thrombus 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 Nonsustained ventricular tachycardia Obesity (BMI 30.0-34.9) 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 infarction Old inferolateral myocardial infarction Old myocardial infarction Paroxysmal atrial fibrillation Right bundle branch block (RBBB) Secondary pulmonary arterial hypertension Stage 3 chronic kidney disease STEMI (ST elevation myocardial infarction) Type II diabetes mellitus Home Medications pantoprazole 40 mg PO BID 03/13/19 [History Last Taken 10/20/19] aspirin 81 mg PO DAILY@0800 10/20/19 [History Last Taken 10/20/19 08:00] spironolactone 25 mg PO DAILY 01/22/20 [History Last Taken Unknown] insulin NPH isoph U-100 human 30 units SC BREAKFAST pen 01/25/20 [Rx Last Taken Unknown] insulin NPH isoph U-100 human 30 units SC QHS pen 01/25/20 [Rx Last Taken Unknown] nitroglycerin 0.4 mg sublingual tablet 0.4 mg SUBLINGUAL Q5M PRN #25 tab 02/01/20 [Rx Last Taken Unknown] apixaban 2.5 mg tablet 2.5 mg PO BID #60 tab 08/28/20 [Rx Last Taken Unknown] metolazone 2.5 mg tablet 2.5 mg PO .COMPLEX #4 tab 01/28/21 [Rx Last Taken Unknown] carvedilol 25 mg tablet 25 mg PO BID #180 tab 03/03/21 [Rx Last Taken Unknown] clopidogrel 75 mg tablet 75 mg PO DAILY #90 tab 03/03/21 [Rx Last Taken Unknown] furosemide 40 mg tablet 40 mg PO DAILY #90 tab 03/03/21 [Rx Last Taken Unknown] pravastatin 40 mg tablet 40 mg PO QHS #90 tab 03/03/21 [Rx Last Taken Unknown] ranolazine 500 mg tablet,extended release,12 hr 500 mg PO BID #60 tab 04/07/21 [Rx Last Taken Unknown] Allergy/AdvReac Type Severity Reaction Status Date / Time diltiazem Allergy LOWER LEG Verified 06/11/21 21:26 SWELLING tamsulosin [From Flomax] Allergy Shortness Verified 06/11/21 21:26 of breath/muscle weakness atorvastatin calcium AdvReac MUSCLE Verified 06/11/21 21:26 [From Lipitor] WEAKNESS Family History Brother Sudden cardiac Surgical History H/O elbow surgery H/O left wrist surgery History of cardioversion (04/10/16) History of coronary artery stent placement (06/08/16) Hx of atrioventricular node ablation (02/19/20) 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 therapy defibrillator ([employer]) (02/2020) S/P right inguinal hernia repair Status post knee surgery Social History Smoking Status: Former smoker quit date: 01/03/15 pack-years: 90 how long ago did patient quit smokin years ago alcohol intake: current alcohol intake frequency: a few times a month substance use type: does not use caffeine: Yes Type: coffee Number of servings: 1 ROS ROS ED Musculoskeletal Musculoskeletal: Reports other Details: See above EXAM Physical Exam Narrative Exam Narrative: His vital signs are unremarkable he is resting company in the bed his HEENT exam is unremarkable no trauma no neck pain lungs diminished heart tones are unremarkable abdomen soft nontender he has a pacer in the left pocket chest nontender, he has a contusion skin abnormality over the posterior shoulder slight decreased range of motion of the shoulder no instability deformity, he has decreased flexion extension to the elbow, no crepitus no subcu air no warmth no swelling, forearm wrist hand unremarkable left upper lip upper extremity negative lower extremities negative back unremarkable and again the abdomen soft nontender neurologically awake moving all 4 Const Vital Signs: 06/11/21 21:26 06/11/21 21:31 06/11/21 21:46 Temperature 98.4 F Temperature Source Oral Pulse Rate 70 Respiratory Rate 21 H Respiratory Effort Short of Breath Respiratory Depth Normal Respiratory Pattern Normal Blood Pressure 151/98 H Blood Pressure Mean 115 Pulse Ox 94 Oxygen Delivery Method Room Air Room Air Room Air MDM MDM MDM Narrative Medical decision making narrative: His EKG shows paced rhythm the monitor shows the same, he will ED screening evaluation generally unremarkable white count however 19,000 UA pending sodium [address] negative per radiology, chest x-ray nonacute, the shoulder x-ray shows DJD the right elbow x-ray shows DJD and a small.I with the radiologist scribes as soft tissue air on reevaluation is no signs clinically of any air infection in the IV is started just proximal to where the air is seen in possible this was related to IV start, I spoke with the hospitalist they asked blood cultures UA is pending urine cultures, they will hold on antibiotics at this point time as is no clear source of infection we will arrange for admission due to the dizziness and the frequent falls Admit stable Final impression dizziness multiple falls right upper extremity right shoulder right elbow injury history of pacemaker multiple cardiac stents leukocytosis without infection apparent Lab Data Labs: Laboratory Results - last 24 hr 06/11/21 06/11/21 06/11/21 21:40 21:40 21:40 WBC 18.9 H RBC 5.70 Hgb 17.5 H Hct 51.5 MCV 90.4 MCH 30.7 MCHC 34.0 RDW Std Deviation 43.7 RDW Coeff of [place] 13.3 Plt Count 295 MPV 9.4 Immature Gran % (Auto) 1.800 H Neut % (Auto) 84.9 H Lymph % (Auto) 3.7 L [place] % (Auto) 8.9 Eos % (Auto) 0.1 Baso % (Auto) 0.6 Absolute Neuts (auto) 16.1 H Absolute Lymphs (auto) 0.71 L Nucleated RBC % 0 Differential Comment SCANNED Sodium 129 L Potassium 4.4 Chloride 93 L Carbon Dioxide 26.0 Anion Gap 10 BUN 54 H Creatinine 2.67 H Estim Creat Clear Calc 26.48 Est GFR (MDRD) Af Amer 31 L Est GFR (MDRD) Non-Af 25 L BUN/Creatinine Ratio 20.2 H Glucose 279 H Calcium 9.0 Troponin I High Sens 27 B-Natriuretic Peptide 161.4 H Radiography Diagnostic Testing: Clinical Impression(s) from Imaging Studies Brain CT 06/11/21 21:35 IMPRESSION: Mild chronic small vessel ischemic changes. No acute intracranial pathology. Electronically Signed: Sal Tabor DO at 22:25 EST , Chest X-Ray 06/11/21 22:15 IMPRESSION: 1. No radiographic evidence of acute cardiopulmonary disease. Electronically Signed: Sal Tabor DO at 22:43 EST , Elbow X-Ray 06/11/21 22:15 IMPRESSION: Advanced degenerative changes as above. No fracture or focal malalignment. Small focus of soft tissue gas projects over the anteromedial, proximal forearm. Electronically Signed: Sal Tabor DO at 22:47 EST , Shoulder X-Ray 06/11/21 22:15 IMPRESSION: Degenerative changes as above. Electronically Signed: Sal Tabor DO at 22:44 EST , Discharge Plan Triage Chief Complaint: Shortness of Breath ED Provider: Mehreen Asher Dx/Rx/DC Orders Prescriptions: No Action pantoprazole 40 MG tablet 40 mg PO BID RF: 0 aspirin 81 MG tablet,chewable 81 mg PO DAILY@0800 RF: 0 spironolactone 50 MG tablet 25 mg PO DAILY RF: 0 insulin NPH isoph U-100 human 100 UNITS/ML insulin pen 30 units SC BREAKFAST RF: 0 insulin NPH isoph U-100 human 100 UNITS/ML insulin pen 30 units SC QHS RF: 0 nitroglycerin 0.4 mg tablet, sublingual 0.4 mg SUBLINGUAL Q5M PRN (Reason: Chest Pain) Qty: 25 RF: 0 apixaban 2.5 mg tablet 2.5 mg PO BID Qty: 60 RF: 11 metolazone 2.5 mg tablet 2.5 mg PO .COMPLEX Qty: 4 RF: 11 pravastatin 40 mg tablet 40 mg PO QHS Qty: 90 RF: 3 carvedilol 25 mg tablet 25 mg PO BID Qty: 180 RF: 3 furosemide 40 mg tablet 40 mg PO DAILY Qty: 90 RF: 3 clopidogrel 75 mg tablet 75 mg PO DAILY Qty: 90 RF: 3 ranolazine 500 mg tablet extended release 12 hr 500 mg PO BID Qty: 60 RF: 11 Primary Care Provider: Jennifer Spicer
--- NOTE | 2021-06-11 23:38 | PCM.HP.STD ---
Documented by User: WALDEMAR Lilly 06/11/21 23:56 HPI - General General Date of Admission: 06/11/21 Date of Service: 06/11/21 Chief Complaint: Syncope HPI Narrative RYAN CUMMINS, is a 70 M who presents following a syncopal episode yesterday. Patient states that he had a syncopal episode and fell on hurt his arm. Patient states it has been hard to move his right arm. Shoulder x-ray and elbow x-ray negative for acute fractures. Patient reports that he has felt dizzy multiple times since his syncopal episode yesterday however he has had no further syncopal episodes. Patient states that he is otherwise been eating and drinking well and happy denies any cardiovascular complaints including chest pain, shortness of breath, palpitations. 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 [facility] Medical History Atherosclerosis of coronary artery of [place] heart without angina pectoris Cardiogenic shock (06/08/16) Cardiomyopathy, ischemic Chronic systolic CHF (congestive heart failure) DDD (degenerative disc disease) Esophagitis determined by endoscopy (05/06/17) Essential hypertension Hyperglycemia Hyperlipidemia Hypertensive emergency Left atrial thrombus intermediate frame tender current use of 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 Nonsustained ventricular tachycardia Obesity (BMI 30.0-34.9) 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 infarction Old inferolateral myocardial infarction Old myocardial infarction Paroxysmal atrial fibrillation Right bundle branch block (RBBB) Secondary pulmonary arterial hypertension Stage 3 chronic kidney disease STEMI (ST elevation myocardial infarction) Type II diabetes mellitus Home Medications pantoprazole 40 mg PO BID 03/13/19 [History Last Taken 10/20/19] aspirin 81 mg PO DAILY@0800 10/20/19 [History Last Taken 10/20/19 08:00] spironolactone 25 mg PO DAILY 01/22/20 [History Last Taken Unknown] insulin NPH isoph U-100 human 30 units SC BREAKFAST pen 01/25/20 [Rx Last Taken Unknown] insulin NPH isoph U-100 human 30 units SC QHS pen 01/25/20 [Rx Last Taken Unknown] nitroglycerin 0.4 mg sublingual tablet 0.4 mg SUBLINGUAL Q5M PRN #25 tab 02/01/20 [Rx Last Taken Unknown] apixaban 2.5 mg tablet 2.5 mg PO BID #60 tab 08/28/20 [Rx Last Taken Unknown] metolazone 2.5 mg tablet 2.5 mg PO .COMPLEX #4 tab 01/28/21 [Rx Last Taken Unknown] carvedilol 25 mg tablet 25 mg PO BID #180 tab 03/03/21 [Rx Last Taken Unknown] clopidogrel 75 mg tablet 75 mg PO DAILY #90 tab 03/03/21 [Rx Last Taken Unknown] furosemide 40 mg tablet 40 mg PO DAILY #90 tab 03/03/21 [Rx Last Taken Unknown] pravastatin 40 mg tablet 40 mg PO QHS #90 tab 03/03/21 [Rx Last Taken Unknown] ranolazine 500 mg tablet,extended release,12 hr 500 mg PO BID #60 tab 04/07/21 [Rx Last Taken Unknown] Allergy/AdvReac Type Severity Reaction Status Date / Time diltiazem Allergy LOWER LEG Verified 06/11/21 21:26 SWELLING tamsulosin [From Flomax] Allergy Shortness Verified 06/11/21 21:26 of breath/muscle weakness atorvastatin calcium AdvReac MUSCLE Verified 06/11/21 21:26 [From Lipitor] WEAKNESS Family History Brother Sudden cardiac Surgical History H/O elbow surgery H/O left wrist surgery History of cardioversion (04/10/16) History of coronary artery stent placement (06/08/16) Hx of atrioventricular node ablation (02/19/20) 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 therapy defibrillator (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 LABORER-D) (02/2020) S/P right inguinal hernia repair Status post knee surgery Social History Smoking Status: Former smoker quit date: 01/03/15 pack-years: 90 how long ago did patient quit smokin years ago alcohol intake: current alcohol intake frequency: a few times a month substance use type: does not use caffeine: Yes Type: coffee Number of servings: 1 ROS Constitutional Constitutional: Denies anorexia, chills, fatigue, fever(s), malaise or weakness Cardiovascular Cardiovascular: Reports edema and syncope; Denies chest pain or palpitations Respiratory/Chest Respiratory/Chest: Denies cough, shortness of breath at rest, shortness of breath with exertion or wheezing Gastrointestinal Gastrointestinal: Denies abdominal pain, constipation, diarrhea, nausea or vomiting Genitourinary Genitourinary: Denies dysuria Musculoskeletal Musculoskeletal: Reports extremity pain, joint pain and limited range of motion; Denies back pain, joint stiffness or joint swelling Integumentary Integumentary: Denies dry skin Neurologic Neurologic: Denies abnormal gait, abnormal speech, confusion or dizziness Psychiatric Psychiatric: Denies anxiety or depression Endocrine Endocrinology: Denies change in body appearance Hematologic/Lymphatic Hematologic/Lymphatic: Denies anemia Vital Signs Vital Signs Vital Signs: 06/11/21 21:26 06/11/21 21:31 06/11/21 21:46 Temperature 98.4 F Temperature Source Oral Pulse Rate 70 Respiratory Rate 21 H Respiratory Effort Short of Breath Respiratory Depth Normal Respiratory Pattern Normal Blood Pressure 151/98 H Blood Pressure Mean 115 Pulse Ox 94 Oxygen Delivery Method Room Air Room Air Room Air Weight Weight: 168 lb Body Mass Index (BMI) 24.7 Physical Exam Const alert, oriented x3 and no apparent distress General Appearance: cooperative HEENT normocephalic and head/scalp atraumatic Eyes conjunctivae normal and no scleral icterus Neck no lymphadenopathy and supple General: trachea midline Resp normal respiratory effort, normal air movement and clear to auscultation bilaterally Effort and Inspection: able to speak in complete sentences and symmetric chest movement Cardio regular rate, S1 normal heart sound, S2 normal heart sound and peripheral pulses 2+ throughout GI normal to inspection, nondistended, normoactive bowel sounds, soft to palpation and non-tender Extremity normal to inspection and normal capillary refill Peripheral Pulses: Yes pulses 2+ throughout Right Upper Extremity: shoulder joint Shoulder Joint Exam - Right: inspection (Normal), palpation (Tender), ROM (Limited) and neurovascular exam (Intact) and elbow joint inspection (Normal), palpation (Tender), ROM (Limited) and neurovascular exam (Intact) Skin General Skin Exam: no breakdown and turgor normal Lesions: no lesions Rashes: no rashes Neuro no focal motor deficits and no sensory deficits noted Speech: speech normal Motor Exam: Negative for general weakness Psych thought process normal, cooperative and affect normal Appearance: appropriate Results Lab / Micro Data Result Diagrams: 06/11/21 21:40 06/11/21 21:40 Labs: Laboratory Results - last 24 hr 06/11/21 21:40: WBC 18.9 H, RBC 5.70, Hgb 17.5 H, Hct 51.5, MCV 90.4, MCH 30.7, MCHC 34.0, RDW Std Deviation 43.7, RDW Coeff of [place] 13.3, Plt Count 295, MPV 9.4, Immature Gran % (Auto) 1.800 H, Neut % (Auto) 84.9 H, Lymph % (Auto) 3.7 L, [place] % (Auto) 8.9, Eos % (Auto) 0.1, Baso % (Auto) 0.6, Absolute Neuts (auto) 16.1 H, Absolute Lymphs (auto) 0.71 L, Nucleated RBC % 0, Differential Comment SCANNED 06/11/21 21:40: Sodium 129 L, Potassium 4.4, Chloride 93 L, Carbon Dioxide 26.0, Anion Gap 10, BUN 54 H, Creatinine 2.67 H, Estim Creat Clear Calc 26.48, Est GFR (MDRD) Af Amer 31 L, Est GFR (MDRD) Non-Af 25 L, BUN/Creatinine Ratio 20.2 H, Glucose 279 H, Calcium 9.0, Troponin I High Sens 27 06/11/21 21:40: B-Natriuretic Peptide 161.4 H Radiology Impression Brain CT 06/11/21 21:35 IMPRESSION: Mild chronic small vessel ischemic changes. No acute intracranial pathology. Electronically Signed: Sal Tabor DO at 22:25 EST , Chest X-Ray 06/11/21 22:15 IMPRESSION: 1. No radiographic evidence of acute cardiopulmonary disease. Electronically Signed: Sal Tabor DO at 22:43 EST , Elbow X-Ray 06/11/21 22:15 IMPRESSION: Advanced degenerative changes as above. No fracture or focal malalignment. Small focus of soft tissue gas projects over the anteromedial, proximal forearm. Electronically Signed: Sal Tabor DO at 22:47 EST , Shoulder X-Ray 06/11/21 22:15 IMPRESSION: Degenerative changes as above. Electronically Signed: Sal Tabor DO at 22:44 EST , Assessment & Plan Assessment/Plan (1) Syncope: QUALIFIERS: Syncope type: unspecified Qualified Code(s): R55 - Syncope and collapse (2) Hyperlipidemia: QUALIFIERS: Hyperlipidemia type: unspecified Qualified Code(s): E78.5 - Hyperlipidemia, unspecified (3) Essential hypertension: (4) Paroxysmal atrial fibrillation: PLAN: 1. Syncope -Admit to PCU -Continuous cardiac monitoring -Echocardiogram in a.m. -CBC, BMP, TSH ordered for a.m. -Trend cardiac enzymes -Urinalysis ordered as patient reports urinary frequency -Blood and urine cultures ordered -Elevated white blood cell count however this could be reactive to recent fall and subsequent arm injury 2. Hypertension -Vital signs per protocol, currently stable -Continue home regimen 3. Hyperlipidemia -Continue pravastatin 4. Diabetes mellitus type 2 -ACHS blood sugars with sliding scale insulin ordered -Continue home NPH regimen along with above 5. Chronic systolic heart failure -Continue carvedilol, furosemide, metolazone, spironolactone -Echocardiogram ordered 6. Chronic Kidney disease stage 3b -Continue ranolazine 7. Atrial fibrillation -Continue apixaban 8. CAD -Continue Plavix and aspirin 9. Hyponatremia -Chronic -BMP daily DVT prophylaxis-chronically anticoagulated This patient was seen by Virginia Page NP-C under the supervision of Dr. Purvis. 33 minutes spent in clinical coordination of patient's plan of care. Documented by User: Dr. Luci Purvis MD 06/12/21 00:03 HPI - General General Date of Admission: 06/11/21 [facility] Medical History Atherosclerosis of coronary artery of [place] heart without angina pectoris Cardiogenic shock (06/08/16) Cardiomyopathy, ischemic Chronic systolic CHF (congestive heart failure) DDD (degenerative disc disease) Esophagitis determined by endoscopy (05/06/17) Essential hypertension Hyperglycemia Hyperlipidemia Hypertensive emergency Left atrial thrombus group home current use of 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 Nonsustained ventricular tachycardia Obesity (BMI 30.0-34.9) 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 infarction Old inferolateral myocardial infarction Old myocardial infarction Paroxysmal atrial fibrillation Right bundle branch block (RBBB) Secondary pulmonary arterial hypertension Stage 3 chronic kidney disease STEMI (ST elevation myocardial infarction) Type II diabetes mellitus Home Medications pantoprazole 40 mg PO BID 03/13/19 [History Last Taken 10/20/19] aspirin 81 mg PO DAILY@0800 10/20/19 [History Last Taken 10/20/19 08:00] spironolactone 25 mg PO DAILY 01/22/20 [History Last Taken Unknown] insulin NPH isoph U-100 human 30 units SC BREAKFAST pen 01/25/20 [Rx Last Taken Unknown] insulin NPH isoph U-100 human 30 units SC QHS pen 01/25/20 [Rx Last Taken Unknown] nitroglycerin 0.4 mg sublingual tablet 0.4 mg SUBLINGUAL Q5M PRN #25 tab 02/01/20 [Rx Last Taken Unknown] apixaban 2.5 mg tablet 2.5 mg PO BID #60 tab 08/28/20 [Rx Last Taken Unknown] metolazone 2.5 mg tablet 2.5 mg PO .COMPLEX #4 tab 01/28/21 [Rx Last Taken Unknown] carvedilol 25 mg tablet 25 mg PO BID #180 tab 03/03/21 [Rx Last Taken Unknown] clopidogrel 75 mg tablet 75 mg PO DAILY #90 tab 03/03/21 [Rx Last Taken Unknown] furosemide 40 mg tablet 40 mg PO DAILY #90 tab 11/29/21 [Rx Last Taken Unknown] pravastatin 40 mg tablet 40 mg PO QHS #90 tab 03/03/21 [Rx Last Taken Unknown] ranolazine 500 mg tablet,extended release,12 hr 500 mg PO BID #60 tab 04/07/21 [Rx Last Taken Unknown] Allergy/AdvReac Type Severity Reaction Status Date / Time diltiazem Allergy LOWER LEG Verified 06/11/21 21:26 SWELLING tamsulosin [From Flomax] Allergy Shortness Verified 06/11/21 21:26 of breath/muscle weakness atorvastatin calcium AdvReac MUSCLE Verified 06/11/21 21:26 [From Lipitor] WEAKNESS Family History Brother Sudden cardiac Surgical History H/O elbow surgery H/O left wrist surgery History of cardioversion (04/10/16) History of coronary artery stent placement (06/08/16) Hx of atrioventricular node ablation (02/19/20) 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 therapy defibrillator (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
[2021-06-12] VITALS (12 sets, daily range): BP systolic 116–162; BP diastolic 81–99; PULSE 70–80; RESP 16–18; TEMP 36.5–36.8; O2SAT 94–98; BMI 26.3
[2021-06-12 00:09] LABS: Mucous, Urine 0 SEEN /hpf (<or=2+); Red Blood Cells-Urine 0 SEEN /hpf (0-5); Squamous Epithelial Cells - UA 0 SEEN /hpf (0-5); White Blood Cells 0 SEEN /hpf (0-5)
[2021-06-12 00:09] LABS: Troponin-I HS 24 pg/mL (3.0-78.0)
[2021-06-12 00:10] LABS: Color, Urine Yellow (Yellow); Glucose, Dipstick 250 mg/dl (Normal); Ketone-Dipstick Negative (Negative); Leukocyte Esterase-Dipstick Negative /ul (Negative); Nitrite-Dipstick Negative (Negative); Occult Blood-Urine Negative /ul (Negative); Protein-Dipstick 100 mg/dl (Negative); Urine Bilirubin Dipstick Negative (Negative); Urine Clarity Clear (Clear); Urine Urobilinogen Normal (Normal)
[2021-06-12 00:42] LABS: Bacteria RARE /hpf (None Seen)
[2021-06-12] MEDS: Acetaminophen 325 MG Tablet 650 MG PO ×2 (01:21→07:44)
[2021-06-12] MEDS: oxyCODONE 5 MG Tablet PO ×2 (01:22→07:43)
[2021-06-12] MEDS: APIXABAN 2.5 MG TABLET PO (01:48)
[2021-06-12] MEDS: Ranolazine 500 MG Tablet PO (01:49)
[2021-06-12] MEDS: Pantoprazole Sodium 40 MG Tablet PO (01:49)
[2021-06-12] MEDS: Carvedilol 25 MG Tablet PO (01:50)
[2021-06-12 04:35] LABS: Absolute Lymphocyte Count 0.96 X10^3/uL (0.83-4.51); Absolute Neutrophil Count 10.9 X10^3/uL (2.0-7.7); Basophil# 0.08 X10^3/uL; Basophil% 0.6 % (0-1); Eosinophil# 0.02 X10^3/uL; Eosinophils% 0.1 % (0-5); Hematocrit 48.9 % (40-54); Hemoglobin 16.2 g/dL (13.0-16.5); Lymphocyte # 0.96 X10^3/ul (0.83-4.51); Lymphocyte % 7.1 % (19-41); Mean Corp Hgb Conc 33.1 g/dL (32-36); Mean Corpuscular Hgb 30.3 pg (27.0-32.0); Mean Corpuscular Volume 91.6 fL (80-94); Mean Platelet Vol. 9.4 fl (6.2-12.0); Monocyte# 1.38 X10^3/uL; Monocyte% 10.2 % (0-10); NRBC Flagged by Analyzer 0 % (0-5); Neutrophil # 10.89 X10^3/uL (2.7-7.7); Neutrophil % 80.5 % (47-70); Platelet Count 243 K/mm3 (150-450); RBC Distribution Width CV 13.6 % (11.6-14.6); RBC Distribution Width SD 45.3 fl (35.1-43.9); Red Blood Count 5.34 M/mm3 (4.6-6.2); White Blood Count 13.5 K/mm3 (4.4-11.0)
[2021-06-12 05:01] LABS: Troponin-I HS 28 pg/mL (3.0-78.0)
[2021-06-12 05:12] LABS: Anion Gap 10 (5-15); BUN 54 mg/dL (7-18); BUN/Creat Ratio 21.9 RATIO (10-20); Calcium,Total 8.4 mg/dL (8.5-10.1); Chloride 96 mmol/L (98-107); Creatinine, Serum 2.47 mg/dL (0.70-1.30); EST Glomerular Filtration Rate 28 mL/min (>60); Est Glom Filt Rate - Afr Amer 34 mL/min (>60); Estimated Creatinine Clearance 28.62 ml/min; Glucose 242 mg/dL (74-106); Potassium 4.1 mmol/L (3.5-5.1); Sodium Level 130 mmol/L (136-145); Thyroid Stim Hormone (TSH) 1.74 uIU/mL (0.358-3.74)
--- NOTE | 2021-06-12 05:55 | ECHOCS_ITS ---
Reason For Study: syncope/near syncope Procedure This was a 2D Doppler, Color Flow transthoracic echocardiogram. The study was technically difficult. Due to body habitus. Contrast injection was performed. Exam performed portable in patient room. Left Ventricle Mildly dilated left ventricle. The estimated ejection fraction is 35-40 %. Right Ventricle Normal right ventricle. ICD or pacer leads identified within the right ventricle. Normal systolic function. Atria The left atrium is mildly enlarged. Normal right atrium. Mitral Valve The mitral valve is structurally normal. No prolapse or stenosis seen. Mild (1+) mitral valve insufficiency. Tricuspid Valve Normal tricuspid valve. No tricuspid valve insufficiency. Aortic Valve Normal aortic valve. Pulmonic Valve The pulmonic valve is not well visualized. Great Vessels Normal aortic root. Pericardium/Pleural No pericardial effusion. Medication Diluted definity 3.0ml given slow IV push to enhance endocardial definition. MMode/2D Measurements & Calculations LVIDd: 5.3 cm IVSd: 0.97 cm Ao root diam: 3.7 cm LVIDs: 3.7 cm LVPWd: 0.99 cm RVDd: 3.2 cm FS: 29.8 % LAV(MOD-bp): 69.8 ml LVAd ap4: 30.6 cm2 LVAd ap2: 36.3 cm2 LAV(MOD-bp) Indexed: 35.5 ml/m2 LVLd ap4: 8.3 cm LVLd ap2: 9.1 cm LAV(MOD-sp2): 68.6 ml EDV(MOD-sp4): 93.2 ml EDV(MOD-sp2): 119.8 ml LAV(MOD-sp4): 70.3 ml EDV(sp4-el): 95.8 ml EDV(sp2-el): 123.0 ml LVAs ap4: 22.3 cm2 LVAs ap2: 25.1 cm2 LVLs ap4: 8.2 cm LVLs ap2: 8.5 cm ESV(MOD-sp4): 48.6 ml ESV(MOD-sp2): 60.7 ml ESV(sp4-el): 51.3 ml ESV(sp2-el): 62.7 ml EF(MOD-sp4): 47.8 % EF(MOD-sp2): 49.4 % EF(sp4-el): 46.4 % SV(MOD-sp4): 44.5 ml SV(MOD-sp2): 59.2 ml SV(sp4-el): 44.4 ml LA A4 area: 21.5 cm2 LA dimension(2D): 3.9 cm Time Measurements MV dec time: 0.15 sec Doppler Measurements & Calculations MV E max kevin: 102.6 cm/sec Lat Peak E' Kevin: 9.7 cm/sec Med Peak E' Kevin: 10.2 cm/sec MV A max kevin: 44.2 cm/sec E/E' lat: 10.6 E/E' med: 10.0 MV E/A: 2.3 Ao V2 max: 105.3 cm/sec LV V1 max: 70.5 cm/sec PA V2 max: 89.8 cm/sec Ao max P.4 mmHg LV V1 max P.0 mmHg TR max kevin: 264.7 cm/sec TR max P.0 mmHg ECHO/Echo Complete W/ Contrast Interpretation Summary The estimated ejection fraction is 35-40 %. Improvement of LV systolic function from prior echo 08/2020 Improvement of MR to MIld Contrastecho/Definity used Ordering Physician: Virginia Page Referring Physician: Jennifer Spicer Performed By: Melissa Hawthorne, IBRAHIMA, RVT
[2021-06-12] MEDS: Insulin Lispro 100 UNIT/ML INSULN.PEN SC ×3 (06:44→16:22)
[2021-06-12 06:51] LABS: Bedside Glucose 243 mg/dL (74-106)
[2021-06-12] MEDS: Insulin NPH Human 100 UNITS/ML PEN 30 UNITS SC (07:45)
[2021-06-12] MEDS: Spironolactone 25 MG Tablet PO (09:31)
[2021-06-12] MEDS: Furosemide 40 MG Tablet PO (09:31)
[2021-06-12] MEDS: Clopidogrel Bisulfate 75 MG Tablet PO (09:31)
[2021-06-12] MEDS: Aspirin 81 MG TAB.CHEW PO (09:31)
[2021-06-12 11:41] LABS: Bedside Glucose 384 mg/dL (74-106)
--- NOTE | 2021-06-12 13:15 | CASEMGMT ---
RN CM BELT POLISHER CM to room to meet with patient for initial transition planning/care coordination assessment. RN LISET introduced self and role at [facility]. Pt voices understanding and consents to assessment at this time. Pt resting in bed in no distress at this time. Pt is A/O at this time and answers all questions appropriately. Care providers, pharmacy, and demographics verified/updated at this time. PCP: Dr Jennifer Spicer Specialists: Dr Paul-cardiology. Pt also has appt w/ortho surgeon in [place] next Wed, but he does not remember his name. He states he needs surgery on his knee. Preferred Pharmacy: [facility] in [place] Insurance: [employer] [facility] Prescription Benefit: Yes Living Will/HPOA: Has both LW and HPOA, who is his daughter, Stella LNOK: Dtr, Stella Living Arrangements: Lives w/dtr, Stella, her , and granddaughter in a 2-story home w/1 step to enter. Pt's bedroom and bathroom are on the 2nd floor. There is no bathroom on the ground floor. Pt states he usually stays upstairs for most of the day. Was independent w/ADL's up until recently. Stella does home mgmt tasks, meals, and laundry. Stella sets up his medications and goes to most appts w/him. Dtr and son-in-law work during the day, and so pt is home alone while they are away at work. Transportation: Pt states drives self and states no transportation concerns at this time. DME: States has the following DME: cane, walker, W/C, adjustable bed, functioning glucometer w/supplies Pt states no need for further DME at this time. HHC/SNF: No hx of SNF. Has had HHC in the past but does not remember name of agency. Pt declines wanting any HHC set up at this time, stating he wishes to wait until after he meets w/ortho surgeon to make that decision. Pt wishes to return home and states has no concerns with going home at time of discharge. Pt states does not smoke, stating he quit about 7 yrs ago and states he only drinks ETOH on rare occasion--about 1-2 x's every couple of months. CM to follow for any discharge planning/needs. Pt voices no concerns/needs at this time. Advised pt to ask for CM if any questions/concerns/needs arise. Voices understanding. PLAN: Pt wishes to return home and declines HHC at this time. PT/OT evals pending. Joanna SUTTONN RN CM
--- NOTE | 2021-06-12 13:33 | PCM.DC.SUM ---
Documented by User: Jackie Brenner NP, DIAMOND CLEAVER-C 06/12/21 14:31 Providers Date of Admission: 06/11/21 Date of Discharge: 06/12/21 Primary Care Physician: Dr. Jennifer Spicer DO Reason For Visit: SYNCOPE Diagnosis Discharge Diagnosis (1) Syncope: Status: Acute Code(s): R55 - Syncope and collapse Qualifiers: Syncope type: unspecified Qualified Code(s): R55 - Syncope and collapse (2) Hyperlipidemia: Status: Chronic Code(s): E78.5 - Hyperlipidemia, unspecified Qualifiers: Hyperlipidemia type: unspecified Qualified Code(s): E78.5 - Hyperlipidemia, unspecified (3) Essential hypertension: Status: Chronic Code(s): I10 - Essential (primary) hypertension (4) Paroxysmal atrial fibrillation: Status: Chronic Code(s): I48.0 - Paroxysmal atrial fibrillation Medications at Discharge Home Medications pantoprazole 40 mg PO BID 03/13/19 aspirin 81 mg PO DAILY@0800 10/20/19 spironolactone 25 mg PO DAILY 01/22/20 insulin NPH isoph U-100 human 30 units SC BREAKFAST pen 01/25/20 insulin NPH isoph U-100 human 30 units SC QHS pen 01/25/20 nitroglycerin 0.4 mg sublingual tablet 0.4 mg SUBLINGUAL Q5M PRN #25 tab 02/01/20 apixaban 2.5 mg tablet 2.5 mg PO BID #60 tab 08/28/20 metolazone 2.5 mg tablet 2.5 mg PO .COMPLEX #4 tab 01/28/21 carvedilol 25 mg tablet 25 mg PO BID #180 tab 03/03/21 clopidogrel 75 mg tablet 75 mg PO DAILY #90 tab 03/03/21 furosemide 40 mg tablet 40 mg PO DAILY #90 tab 03/03/21 pravastatin 40 mg tablet 40 mg PO QHS #90 tab 03/03/21 ranolazine 500 mg tablet,extended release,12 hr 500 mg PO BID #60 tab 04/07/21 Hospital Course Operations None Procedures 2-D Echocardiogram Summary of Care Provided Hospital Course: Patient is a 70-year-old male admitted 06/11/2021 due to syncope. 1. Near syncope, suspect secondary to orthostatic hypotension-with associated mechanical fall. Brain CT unremarkable. Shoulder and elbow x-ray without acute fractures. Troponin negative. Orthostatic vitals positive. Patient initially received IV fluids however further discontinued due to reduced EF. Repeat orthostatic vitals improved however still positive. ICD Interrogated, no evidence of arrhythmia. Echo pending and will be reviewed prior to discharge. Recommend use of CARLOS hose at discharge. Follow-up with PCP and cardiology at discharge. 2. Leukocytosis-suspect reactive. Trended down. Afebrile. UA and chest x-ray unremarkable. 3. Chronic heart failure with reduced ejection fraction/ischemic cardiomyopathy-prior echo August 2020 demonstrated an EF of 30%. Status post AICD. Continue home regimen. 4. CAD-continue aspirin, Eliquis, Plavix, Coreg, Ranexa, statin. 5. Type 2 diabetes exhtzgyj-Wdcv-Hthmn with sliding scale insulin. 6. Hypertension-stable, continue home regimen. 7. 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 8. Chronic kidney disease stage IV-at baseline. 9. Paroxysmal atrial fibrillation-on beta-janette, Eliquis. Patient seen and examined prior to discharge. Physical assessment as noted below. Patient is stable for discharge with follow up recommendations as noted above. This patient was seen by WALDEMAR Blair under the supervision of Dr. Blue. Time spent examining patient, reviewing data and subsequent management of care: 16 minutes Physical Exam Const alert, oriented x3 and no apparent distress Orientation / Consciousness: awake, oriented to person, oriented to place and oriented to time HEENT normocephalic and moist oral mucous membranes Eyes PERRL, EOMs intact bilaterally and conjunctivae normal Neck no lymphadenopathy Resp normal respiratory effort and clear to auscultation bilaterally Cardio regular rate, regular rhythm and no murmurs Peripheral Pulses: pulses 2+ throughout GI normal to inspection, nondistended, normoactive bowel sounds, non-tender and non-distended Extremity normal to inspection Skin no rashes or lesions noted Lesions: no lesions Rashes: no rashes Trauma: no lacerations or abrasions Neuro CN's II-XII intact bilaterally, no focal motor deficits, no sensory deficits noted and deep tendon reflexes 2+ bilaterally Psych mental status grossly normal and affect normal Weight / BMI Weight Weight: 178 lb 5.663 oz Body Mass Index (BMI) 26.3 ABG / Lab / Microbiology Data Result Diagrams: 06/12/21 04:10 06/12/21 04:10 Laboratory: Laboratory Results - last 24 hr 06/11/21 21:40: WBC 18.9 H, RBC 5.70, Hgb 17.5 H, Hct 51.5, MCV 90.4, MCH 30.7, MCHC 34.0, RDW Std Deviation 43.7, RDW Coeff of [place] 13.3, Plt Count 295, MPV 9.4, Immature Gran % (Auto) 1.800 H, Neut % (Auto) 84.9 H, Lymph % (Auto) 3.7 L, [place] % (Auto) 8.9, Eos % (Auto) 0.1, Baso % (Auto) 0.6, Absolute Neuts (auto) 16.1 H, Absolute Lymphs (auto) 0.71 L, Nucleated RBC % 0, Differential Comment SCANNED 06/11/21 21:40: Sodium 129 L, Potassium 4.4, Chloride 93 L, Carbon Dioxide 26.0, Anion Gap 10, BUN 54 H, Creatinine 2.67 H, Estim Creat Clear Calc 26.48, Est GFR (MDRD) Af Amer 31 L, Est GFR (MDRD) Non-Af 25 L, BUN/Creatinine Ratio 20.2 H, Glucose 279 H, Calcium 9.0, Troponin I High Sens 27 06/11/21 21:40: B-Natriuretic Peptide 161.4 H 06/11/21 23:35: Troponin I High Sens 24 06/12/21 00:03: Urine Color Yellow, Urine Clarity Clear, Urine pH 5.0, Ur Specific [place] 1.020, Urine Protein 100 H, Urine Glucose (UA) 250 H, Urine Ketones Negative, Urine Occult Blood Negative, Urine Nitrite Negative, Urine Bilirubin Negative, Urine Urobilinogen Normal, Ur Leukocyte Esterase Negative, Urine RBC 0 SEEN, Urine WBC 0 SEEN, Ur Squamous Epith Cells 0 SEEN, Urine Bacteria RARE, Urine Mucus 0 SEEN 06/12/21 04:10: WBC 13.5 H, RBC 5.34, Hgb 16.2, Hct 48.9, MCV 91.6, MCH 30.3, MCHC 33.1, RDW Std Deviation 45.3 H, RDW Coeff of [place] 13.6, Plt Count 243, MPV 9.4, Immature Gran % (Auto) 1.500 H, Neut % (Auto) 80.5 H, Lymph % (Auto) 7.1 L, [place] % (Auto) 10.2 H, Eos % (Auto) 0.1, Baso % (Auto) 0.6, Absolute Neuts (auto) 10.9 H, Absolute Lymphs (auto) 0.96, Nucleated RBC % 0 06/12/21 04:10: Sodium 130 L, Potassium 4.1, Chloride 96 L, Carbon Dioxide 24.0, Anion Gap 10, BUN 54 H, Creatinine 2.47 H, Estim Creat Clear Calc 28.62, Est GFR (MDRD) Af Amer 34 L, Est GFR (MDRD) Non-Af 28 L, BUN/Creatinine Ratio 21.9 H, Glucose 242 H, Calcium 8.4 L, TSH 1.74 06/12/21 04:10: Troponin I High Sens 28 06/12/21 06:43: POC Glucose 243 H 06/12/21 11:35: POC Glucose 384 H Radiography Diagnostic Testing: Radiology Impression Brain CT 06/11/21 21:35 IMPRESSION: Mild chronic small vessel ischemic changes. No acute intracranial pathology. Electronically Signed: Sal Tabor DO at 22:25 EST , Chest X-Ray 06/11/21 22:15 IMPRESSION: 1. No radiographic evidence of acute cardiopulmonary disease. Electronically Signed: Sal Tabor DO at 22:43 EST , Elbow X-Ray 06/11/21 22:15 IMPRESSION: Advanced degenerative changes as above. No fracture or focal malalignment. Small focus of soft tissue gas projects over the anteromedial, proximal forearm. Electronically Signed: Sal Tabor DO at 22:47 EST , Shoulder X-Ray 06/11/21 22:15 IMPRESSION: Degenerative changes as above. Electronically Signed: Sal Tabor DO at 22:44 EST , Meaningful Use Info Meaningful Use Diagnoses (Choose all that apply): None applicable Discharge Plan Admission Admit Date/Time: 06/11/21 23:41 Primary Reason for Your Visit: Syncope Attending Provider: Serg Blue Primary Care Provider: Jennifer Spicer Discharge Orders/Prescriptions Prescriptions: Continued pantoprazole 40 MG tablet 40 mg PO BID RF: 0 aspirin 81 MG tablet,chewable 81 mg PO DAILY@0800 RF: 0 spironolactone 50 MG tablet 25 mg PO DAILY RF: 0 insulin NPH isoph U-100 human 100 UNITS/ML insulin pen 30 units SC BREAKFAST RF: 0 insulin NPH isoph U-100 human 100 UNITS/ML insulin pen 30 units SC QHS RF: 0 nitroglycerin 0.4 mg tablet, sublingual 0.4 mg SUBLINGUAL Q5M PRN (Reason: Chest Pain) Qty: 25 RF: 0 apixaban 2.5 mg tablet 2.5 mg PO BID Qty: 60 RF: 11 metolazone 2.5 mg tablet 2.5 mg PO .COMPLEX Qty: 4 RF: 11 pravastatin 40 mg tablet 40 mg PO QHS Qty: 90 RF: 3 carvedilol 25 mg tablet 25 mg PO BID Qty: 180 RF: 3 furosemide 40 mg tablet 40 mg PO DAILY Qty: 90 RF: 3 clopidogrel 75 mg tablet 75 mg PO DAILY Qty: 90 RF: 3 ranolazine 500 mg tablet extended release 12 hr 500 mg PO BID Qty: 60 RF: 11 Referrals / Follow Up: Jennifer Spicer DO [Primary Care Provider] - In 1 Week Dequan Lei NP, DIAMOND CLEAVER-C [Nurse Practitioner] - Within 2 Weeks Disposition Disposition (needs filled in before D/C Order can be placed): Home, Self Care Documented by User: Dr. Serg Blue MD 06/13/21 16:47 Providers Date of Admission: 06/11/21 Reason For Visit: SYNCOPE Medications at Discharge Home Medications pantoprazole 40 mg PO BID 03/13/19 aspirin 81 mg PO DAILY@0800 10/20/19 spironolactone 25 mg PO DAILY 01/22/20 insulin NPH isoph U-100 human 30 units SC BREAKFAST pen 01/25/20 insulin NPH isoph U-100 human 30 units SC QHS pen 01/25/20 nitroglycerin 0.4 mg sublingual tablet 0.4 mg SUBLINGUAL Q5M PRN #25 tab 02/01/20 apixaban 2.5 mg tablet 2.5 mg PO BID #60 tab 08/28/20 metolazone 2.5 mg tablet 2.5 mg PO .COMPLEX #4 tab 01/28/21 carvedilol 25 mg tablet 25 mg PO BID #180 tab 03/03/21 clopidogrel 75 mg tablet 75 mg PO DAILY #90 tab 03/03/21 furosemide 40 mg tablet 40 mg PO DAILY #90 tab 03/03/21 pravastatin 40 mg tablet 40 mg PO QHS #90 tab 03/03/21 ranolazine 500 mg tablet,extended release,12 hr 500 mg PO BID #60 tab 04/07/21 Hospital Course Summary of Care Provided Hospital Course: This patient was seen in conjunction with DIAMOND CLEAVER, Jackie. I have independently interviewed and examined the patient and reviewed pertinent history, examination findings, laboratory and plan of management. I have reviewed the note and agree with the documented findings with the few additional points. In brief, patient is 70-year-old male admitted with near syncope and fall. Orthostatic hypotension without change in heart rate from supine to standing position. Patient was admitted to PCU. CT brain unremarkable. Left shoulder and Elbow x-ray negative for fracture or dislocation. Chest x-ray no acute abnormality. Troponins are negative. Patient received IV fluid. Patient also has chronic HFrEF and follows Dr. Paul as an outpatient. Had 2D echo on 06/12 reported EF 35 to 40% with improvement of LV systolic function as compared to prior echo 08/2020. Improvement of MR to mild. No acute exacerbation. Patient other comorbidities includes coronary artery disease, type 2 diabetes mellitus, hypertension, history of left atrial thrombus on Eliquis, CKD stage IV and paroxysmal A. fib on Eliquis. Blood sugar uncontrolled. Follow with PCP. Discharge medication reconciliation done. Discharge follow-up instructions completed. Discharge process discussed with the patient and all questions were answered to patient's satisfaction. Total time spent, exact 35 minutes on discharge meds reconciliation, examination, coordination of care with nurses and ancillary staff, review of imaging and blood test and discussion with the patient on follow-up instructions. I have discussed my assessment with DIAMOND CLEAVERJackie and orders have been reviewed. Physical Exam Narrative Seen and examined. Patient felt dizzy lightheaded and fell down on the right shoulder. Soft tissue swelling of right distal arm and elbow. No acute fracture. Patient had history of fall but he fell because of lower extremity disequilibrium and gait instability in the past. hospital monitor shows paced rhythm. Ortho vitals were positive. Blood pressure dropped from 146 systolic to standing without significant increase in heart rate General: Alert, Oriented x3, Cooperative HEENT: Atraumatic, PERRLA, EOMI, Normocephalic Oral: No Gingival or Mucosal Lesions/ Ulcerations Neck: Supple, No JVD, Negative Carotid Bruits Lungs: Air entry diminished in bilateral lung bases. No crepitation/rhonchi Cardiovascular: Left Segler pacemaker. Paced rhythm on cardiac catheterization technician. Normal S1, Normal S2, No murmurs Abdomen: Bowel Sounds Present, Soft, Non Tender, Non-Distended : No renal angle tenderness. No suprapubic tenderness. Extremities: No edema, Capillary Refill Less than 3 Seconds Skin: No rashes, No breakdown Musculoskeletal: Tenderness of left arm and elbow. No soft tissue swelling. No bony tenderness. Neurological: Cranial nerves II-XII grossly intact, DTR 2+/4 and Symmetrical, Neuro grossly intact Psych/Mental Status: Normal Affect, Appropriate ABG / Lab / Microbiology Data Result Diagrams: 06/12/21 04:10 06/12/21 04:10 Discharge Plan Admission Admit Date/Time: 06/11/21 23:41 Primary Reason for Your Visit: Syncope Attending Provider: Serg Blue Primary Care Provider: Jennifer Spicer Discharge Orders/Prescriptions Prescriptions: Continued pantoprazole 40 MG tablet 40 mg PO BID RF: 0 aspirin 81 MG tablet,chewable 81 mg PO DAILY@0800 RF: 0 spironolactone 50 MG tablet 25 mg PO DAILY RF: 0 insulin NPH isoph U-100 human 100 UNITS/ML insulin pen 30 units SC BREAKFAST RF: 0 insulin NPH isoph U-100 human 100 UNITS/ML insulin pen 30 units SC QHS RF: 0 nitroglycerin 0.4 mg tablet, sublingual 0.4 mg SUBLINGUAL Q5M PRN (Reason: Chest Pain) Qty: 25 RF: 0 apixaban 2.5 mg tablet 2.5 mg PO BID Qty: 60 RF: 11 metolazone 2.5 mg tablet 2.5 mg PO .COMPLEX Qty: 4 RF: 11 pravastatin 40 mg tablet 40 mg PO QHS Qty: 90 RF: 3 carvedilol 25 mg tablet 25 mg PO BID Qty: 180 RF: 3 furosemide 40 mg tablet 40 mg PO DAILY Qty: 90 RF: 3 clopidogrel 75 mg tablet 75 mg PO DAILY Qty: 90 RF: 3 ranolazine 500 mg tablet extended release 12 hr 500 mg PO BID Qty: 60 RF: 11 Referrals / Follow Up: Jennifer Spicer DO [Primary Care Provider] - In 1 Week Dequan Lei NP, DIAMOND CLEAVER-C [Nurse Practitioner] - Within 2 Weeks Disposition Disposition (needs filled in before D/C Order can be placed): Home, Self Care Charges/Coding Visit Charges OBSV E&M: 95447 Observation care discharge
--- NOTE | 2021-06-12 13:41 | DCINST_ITS ---
Discharge Instructions Diet Discharge Diet: Low fat / Low cholesterol, 8 Cup Fluid Restriction and 2000 mg Sodium Diet Activity Discharge Activity: Return to Normal Activity Additional Activity Instructions:: Wear margie hose. Dressing / Incision Call your doctor if you observe: Shortness of breath, Dizziness and Chest pain Follow Up Care Test Results: Test results from this visit will be discussed in further detail at your follow-up appointment, if applicable. Discharge Plan Admission Admit Date/Time: 06/11/21 23:41 Primary Reason for Your Visit: Syncope Attending Provider: Serg Blue Primary Care Provider: Jennifer Spicer Discharge Orders/Prescriptions Prescriptions: Continued pantoprazole 40 MG tablet 40 mg PO BID RF: 0 aspirin 81 MG tablet,chewable 81 mg PO DAILY@0800 RF: 0 spironolactone 50 MG tablet 25 mg PO DAILY RF: 0 insulin NPH isoph U-100 human 100 UNITS/ML insulin pen 30 units SC BREAKFAST RF: 0 insulin NPH isoph U-100 human 100 UNITS/ML insulin pen 30 units SC QHS RF: 0 nitroglycerin 0.4 mg tablet, sublingual 0.4 mg SUBLINGUAL Q5M PRN (Reason: Chest Pain) Qty: 25 RF: 0 apixaban 2.5 mg tablet 2.5 mg PO BID Qty: 60 RF: 11 metolazone 2.5 mg tablet 2.5 mg PO .COMPLEX Qty: 4 RF: 11 pravastatin 40 mg tablet 40 mg PO QHS Qty: 90 RF: 3 carvedilol 25 mg tablet 25 mg PO BID Qty: 180 RF: 3 furosemide 40 mg tablet 40 mg PO DAILY Qty: 90 RF: 3 clopidogrel 75 mg tablet 75 mg PO DAILY Qty: 90 RF: 3 ranolazine 500 mg tablet extended release 12 hr 500 mg PO BID Qty: 60 RF: 11 Referrals / Follow Up: Jennifer Spicer DO [Primary Care Provider] - In 1 Week Dequan Lei NP, BEHAVIORAL HEALTH TECHNICIAN-C [Nurse Practitioner] - Within 2 Weeks Disposition Disposition (needs filled in before D/C Order can be placed): Home, Self Care
--- NOTE | 2021-06-12 16:15 | CASEMGMT ---
DEVYN HUTCHINS NOTE: PT/OT evals have been completed. Therapists spoke w/DEVYN HUTCHINS and informed RN CM that SNF is recommended. Pt a max assist of one to stand and they feel pt is high risk of falling if returns home and if does not have assistance. Pt continuing to have pain to right arm and it would be difficult for him to provide personal care. DEVYN HUTCHINS to room to talk w/pt. He is aware therapy recommending SNF and concerns for patient safety @ home alone when his family is away @ work during the day. Pt states he is aware of this and he understands but that he still does not want to go to a SNF and wishes to return home. Pt states he would be agreeable to [facility] [place] and denies having preference of [facility] [place] agency. He gave RN LISET permission to contact his daughter, Stella, re: above concerns. Call placed to Stella while DEVYN HUTCHINS in pt's room to discuss discharge planning. She was made aware of therapy recommendations for SNF and that they do not feel pt is safe to be home alone, as he is requiring max assist to stand and would have difficult caring for self. Stella also aware pt is adamantly refusing SNF. She states her and her work during the day and that pt will be home alone while they are at work. She prefers for pt to go to a SNF, but states she knows her father does not want to go to a SNF and that he is able to make his own decisions. She is also agreeable to [facility] [place] and states has no preference, but that he did have HHC in the past through [facility]. Dr Blue and Jackie, SQL TECH, aware pt continuing to have right arm pain and slight dizziness when standing and that pt is adamantly refusing SNF. Jackie aware HHC is being set up for pt. Per Jackie, pt is medically ready for discharge. Call placed to Deion @ [facility] at Home [facility] [place] and referral made. He was made aware pt is discharging home today. He states they are able to accept pt and SOC slated for tomorrow. DEVYN HUTCHINS placed call back to pt's daughter, Stella. She was made aware pt is being discharged home this PM. She was also made aware [facility] able to accept pt w/SOC tomorrow. She voices much appreciation and states will call her to come pick pt up. Pt also made aware HHC able to accept him w/SOC tomorrow. Stella and pt both deny having any further discharge planning needs or concerns. Joanna SUTTONN RN CM
[2021-06-12 16:31] LABS: Bedside Glucose 320 mg/dL (74-106)
== END 2021-06-12 14:18 | disposition home or self-care (01) ==
LOC: ED 23:26 → PCU 06-12 00:02
PROVIDERS: Nurse Practitioner Family; Admitting Provider Family Medicine; Emergency Provider Emergency Medicine; PCP Family Medicine; Visit Provider Internal Medicine
DX: I95.1 Orthostatic hypotension (principal); I13.0 Hypertensive heart and chronic kidney disease with heart failure and stage 1 through stage 4 chronic kidney disease, or unspecified chronic kidney disease; I50.22 Chronic systolic (congestive) heart failure; E11.22 Type 2 diabetes mellitus with diabetic chronic kidney disease; N18.4 Chronic kidney disease, stage 4 (severe); I48.0 Paroxysmal atrial fibrillation; E78.5 Hyperlipidemia, unspecified; I25.10 Atherosclerotic heart disease of native coronary artery without angina pectoris; E87.1 Hypo-osmolality and hyponatremia; D72.829 Elevated white blood cell count, unspecified; M19.011 Primary osteoarthritis, right shoulder; M19.021 Primary osteoarthritis, right elbow; I25.5 Ischemic cardiomyopathy; Z79.82 Long term (current) use of aspirin; Z79.01 Long term (current) use of 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s; Z79.899 Other long term (current) drug therapy; Z87.891 Personal history of nicotine dependence; Z79.02 Long term (current) use of antithrombotics/antiplatelets; I25.2 Old myocardial infarction; Z79.4 Long term (current) use of insulin; Z95.810 Presence of automatic (implantable) cardiac defibrillator
CPT/HCPCS: 36415; 70450; 71045; 73030; 73080; 80048; 81001; 82962; 83880; 84443; 84484; 85025; 87040; 87086; 93005; 93306; 96360; 96361; 97162; 97166; 99218; 99285; J7030; Q9957; A4216; C8929; G0378

== ENCOUNTER 2021-06-18 20:21 | Observation (INO) | payer MEDICARE, SELFPAY ==
[2016-06-12 14:02] VITALS: BMI 29.7
[2021-06-18 20:22] VITALS: BP 147/87; PULSE 71; RESP 18; TEMP 35.9; O2SAT 92; BMI 24.7
--- NOTE | 2021-06-18 22:06 | CT_ITS ---
STUDY: CT BRAIN WITHOUT CONTRAST REASON FOR EXAM: Male, 70 years old. trauma RADIATION DOSAGE (If Supplied By Facility): CTDIvol = ( 44.99 ) mGy, DLP = ( 812.98 ) mGycm TECHNIQUE: Transaxial CT imaging of the brain was performed without administration of intravenous contrast material. Individualized dose optimization techniques were used for this CT. COMPARISON: No relevant priors. FINDINGS: Normal soft tissue structures. Normal calvarium. Calcific plaquing of of cavernous carotids. Moderate atrophy and periventricular white matter ischemic change.. Normal basal ganglia and thalami. Normal brainstem. Cerebellar atrophy.. There is no intracranial hemorrhage. There are no findings of an acute ischemic infarction. Partial opacification right mastoid air cells likely due to old inflammatory disease Normal visualized paranasal sinuses. CT/Brain/Head without Contrast IMPRESSION: Moderate atrophy and periventricular white matter ischemic change. No evidence for acute intracranial hemorrhage. Electronically Signed: Herberth Garcia MD at 22:50 EDT ,
--- NOTE | 2021-06-18 22:07 | EKG12_ITS ---
Test Reason : WEAKNESS Blood Pressure : / mmHG Vent. Rate : 074 BPM Atrial Rate : 312 BPM P-R Int : 000 ms QRS Dur : 144 ms QT Int : 442 ms P-R-T Axes : 256 181 052 degrees QTc Int : 490 ms Ventricular-paced rhythm Biventricular pacemaker detected Abnormal ECG Confirmed by LUPE METZ, LARRY ([id number]), supervising film or videotape editor LISBET HAWK ([id number]) on 06/23/2021 8:54:06 AM Referred By: Confirmed By:SEFERINO ANDRADE MD
--- NOTE | 2021-06-18 22:08 | EX.ED.DYSGE1 ---
HPI History of Present Illness Chief Complaint: Weakness Informant: patient Narrative Narrative: Patient and family present with planned admission transferred to TCU. This patient was in the hospital about a week ago. He had some mild dehydration. They have talked to him about going to TCU but he states he was a stubborn old man and did not want to do that. He did go home. They did arrange home health care and therapy. This started on Wednesday. He has had physical therapy but is too weak to really do it at home. They came out again today. They feel he is not safe at home. Patient cannot get around with a walker because it does not fit through the doors in his small apartment. He uses a cane but he does not have the strength to hold himself up with a cane. For going out anywhere he can use a wheelchair but that also does not get through the doors in his apartment. He does live with 2 family members but both of them work full-time and cannot be home with him. He has fallen again 2 days ago. He hit his head but had no loss of consciousness. He also hit his left knee which is his bad knee. The knee is a little bit more sore than normal. He is not having headache nausea vomiting. He still has some soreness of his right arm from his fall last week although he did not reinjure it. He states he is now willing to go to rehab because he realizes he cannot function at home. [facility] Medical History Atherosclerosis of coronary artery of [place] heart without angina pectoris Cardiogenic shock (06/08/16) Cardiomyopathy, ischemic Chronic systolic CHF (congestive heart failure) DDD (degenerative disc disease) Esophagitis determined by endoscopy (05/06/17) Essential hypertension Hyperglycemia Hyperlipidemia Hypertensive emergency Left atrial thrombus retirement current use of 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 Nonsustained ventricular tachycardia Obesity (BMI 30.0-34.9) 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 infarction Old inferolateral myocardial infarction Old myocardial infarction Paroxysmal atrial fibrillation Right bundle branch block (RBBB) Secondary pulmonary arterial hypertension Stage 3 chronic kidney disease STEMI (ST elevation myocardial infarction) Type II diabetes mellitus Home Medications pantoprazole 40 mg PO BID 03/13/19 [History Last Taken 10/20/19] aspirin 81 mg PO DAILY@0800 10/20/19 [History Last Taken 10/20/19 08:00] spironolactone 25 mg PO DAILY 01/22/20 [History Last Taken Unknown] insulin NPH isoph U-100 human 30 units SC BREAKFAST pen 01/25/20 [Rx Last Taken Unknown] insulin NPH isoph U-100 human 30 units SC QHS pen 01/25/20 [Rx Last Taken Unknown] nitroglycerin 0.4 mg sublingual tablet 0.4 mg SUBLINGUAL Q5M PRN #25 tab 02/01/20 [Rx Last Taken Unknown] apixaban 2.5 mg tablet 2.5 mg PO BID #60 tab 08/28/20 [Rx Last Taken Unknown] metolazone 2.5 mg tablet 2.5 mg PO .COMPLEX #4 tab 01/28/21 [Rx Last Taken Unknown] carvedilol 25 mg tablet 25 mg PO BID #180 tab 03/03/21 [Rx Last Taken Unknown] clopidogrel 75 mg tablet 75 mg PO DAILY #90 tab 03/03/21 [Rx Last Taken Unknown] furosemide 40 mg tablet 40 mg PO DAILY #90 tab 03/03/21 [Rx Last Taken Unknown] pravastatin 40 mg tablet 40 mg PO QHS #90 tab 03/03/21 [Rx Last Taken Unknown] ranolazine 500 mg tablet,extended release,12 hr 500 mg PO BID #60 tab 04/07/21 [Rx Last Taken Unknown] oxycodone 5 mg PO Q6H PRN PRN 06/18/21 [History Last Taken Unknown] Allergy/AdvReac Type Severity Reaction Status Date / Time diltiazem Allergy LOWER LEG Verified 06/18/21 20:24 SWELLING tamsulosin [From Flomax] Allergy Shortness Verified 06/18/21 20:24 of breath/muscle weakness atorvastatin calcium AdvReac MUSCLE Verified 06/18/21 20:24 [From Lipitor] WEAKNESS Family History Brother Sudden cardiac Surgical History H/O elbow surgery H/O left wrist surgery History of cardioversion (04/10/16) History of coronary artery stent placement (06/08/16) Hx of atrioventricular node ablation (02/19/20) 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 therapy defibrillator (SLEEVER-D) (02/2020) S/P right inguinal hernia repair Status post knee surgery Social History adopted: No household members: children housing: house number of children: 1 (Daughter) current occupational status: retired current occupational exposures/hazards: No pets and animals: Yes (cats) history of recent travel: No Smoking Status: Former smoker quit date: 01/03/15 pack-years: 90 how long ago did patient quit smokin years ago alcohol intake: current alcohol intake frequency: a few times a month substance use type: does not use caffeine: Yes Type: coffee Number of servings: 1 ROS ROS ED ROS Narrative Patient denies feeling ill. He is just too globally weak to function. Constitutional Constitutional ED: Denies chills or fever(s) Eyes Eyes: Denies change in vision ENT ENT ED: Denies rhinorrhea or sore throat Cardiovascular Cardiovascular: Denies chest pain or palpitations Respiratory/Chest Respiratory/Chest: Denies cough or dyspnea Gastrointestinal Gastrointestinal: Reports other Details: Appetite is down somewhat but this has been so for quite some time. ; Denies abdominal pain, diarrhea, nausea or vomiting Genitourinary Genitourinary ED: Denies dysuria or hematuria Musculoskeletal Musculoskeletal: Reports arthralgias Integumentary Denies rash Neurologic Neurologic: Reports other Details: Global but no focal weakness. ; Denies headache(s), paresthesias or weakness Psychiatric Psychiatric: Denies depression Endocrine Endocrinology: Denies polyuria Allergic/Immunologic Allergic/Immunologic ED: Denies urticaria EXAM Physical Exam Const Vital Signs: 06/18/21 20:22 06/18/21 21:48 Temperature 96.6 F L Temperature Source Temporal Pulse Rate 71 Respiratory Rate 18 Respiratory Effort Normal Non-Labored Respiratory Pattern Normal Blood Pressure 147/87 H Blood Pressure Mean 107 Pulse Ox 92 Oxygen Delivery Method Room Air HEENT Reports dry mucous membranes HEENT Narrative: No sign of trauma on his head. His family member states he had a red area on the left side after his fall 2 days ago but it resolved. Mucous membranes are just mildly dry. Negative for trauma Mouth ED: Yes dry mucous membranes Mouth: dry mucous membranes Eyes EOMs intact bilaterally Neck no lymphadenopathy and no JVD Chest Wall inspection of chest normal Resp normal respiratory effort and clear to auscultation bilaterally Cardio regular rate and regular rhythm Rate: other Other Details: Patient has a history of intermittent atrial fibrillation but sounds to be in regular rhythm at this time. GI normal to inspection, nondistended, normoactive bowel sounds and non-tender Palpation: soft Back/Spine no CVA tenderness Extremity Extremity Narrative: Patient does have some ecchymosis and swelling to his right hand and elbow area. But he states this is left over from his fall prior and it has already been x-rayed. He has a very slight abrasion to the anterior portion of his left knee. There is no effusion. There is some mild nonfocal tenderness but no deformity. Neuro oriented x3 Sensorium / Orientation: alert Psych mental status grossly normal Skin Skin Narrative: Abrasion left knee contusion right arm as above MDM MDM MDM Narrative Medical decision making narrative: Patient's labs show a 49 white count. This is just barely higher than discharge last week and lower than when he came in. He has no symptoms of infection. Electrolytes show minimally low sodium that I do not think is the source of this. Creatinine is elevated 2.21 but this is really about at his baseline. Glucose is 108. Calcium is okay at 9.4. CT scan of his head was done because he has had recurrent falls on Eliquis and Plavix. This showed no acute process. Knee x-ray also showed no acute process. EKG showed no marked change. Lab Data Attestation: I reviewed the patient's lab results. Labs: Laboratory Results - last 24 hr 06/18/21 06/18/21 22:20 22:20 WBC 14.9 H RBC 5.35 Hgb 16.3 Hct 48.1 MCV 89.9 MCH 30.5 MCHC 33.9 RDW Std Deviation 43.8 RDW Coeff of [place] 13.4 Plt Count 323 MPV 9.1 Immature Gran % (Auto) 2.000 H Neut % (Auto) 80.9 H Lymph % (Auto) 6.2 L [place] % (Auto) 9.6 Eos % (Auto) 0.7 Baso % (Auto) 0.6 Absolute Neuts (auto) 12.1 H Absolute Lymphs (auto) 0.93 Nucleated RBC % 0 Sodium 132 L Potassium 4.0 Chloride 98 Carbon Dioxide 26.0 Anion Gap 8 BUN 56 H Creatinine 2.21 H Estim Creat Clear Calc 31.99 Est GFR (MDRD) Af Amer 38 L Est GFR (MDRD) Non-Af 32 L BUN/Creatinine Ratio 25.3 H Glucose 108 H Calcium 9.4 Radiography Diagnostic Testing: Clinical Impression(s) from Imaging Studies Brain CT 06/18/21 22:06 IMPRESSION: Moderate atrophy and periventricular white matter ischemic change. No evidence for acute intracranial hemorrhage. Electronically Signed: Herberth Garcia MD at 22:50 EDT , Knee X-Ray 06/18/21 22:35 IMPRESSION: No acute bony abnormality. at 2331 Reported and signed by: Konrad Castillo MD Electronically Signed: Konrad Castillo MD at 23:30 EDT , EKG Initial EKG: Comments: EKG done for frequent falls and history of A. fib. EKG read by me shows irregular baseline that could be A. fib or flutter. He is likely ventricularly paced. He has an occasional PVC. No sign of acute infarct. EKG is similar to 11 June. QRS duration and QTc are bit long. Discharge Plan Triage Chief Complaint: Weakness ED Provider: Sree Houston Dx/Rx/DC Orders Clinical Impression: Inability to ambulate due to multiple joints, Declining functional status, Multiple falls Prescriptions: No Action pantoprazole 40 MG tablet 40 mg PO BID RF: 0 aspirin 81 MG tablet,chewable 81 mg PO DAILY@0800 RF: 0 spironolactone 50 MG tablet 25 mg PO DAILY RF: 0 insulin NPH isoph U-100 human 100 UNITS/ML insulin pen 30 units SC BREAKFAST RF: 0 insulin NPH isoph U-100 human 100 UNITS/ML insulin pen 30 units SC QHS RF: 0 oxycodone 5 mg tablet 5 mg PO Q6H PRN PRN (Reason: Pain) RF: 0 nitroglycerin 0.4 mg tablet, sublingual 0.4 mg SUBLINGUAL Q5M PRN (Reason: Chest Pain) Qty: 25 RF: 0 apixaban 2.5 mg tablet 2.5 mg PO BID Qty: 60 RF: 11 metolazone 2.5 mg tablet 2.5 mg PO .COMPLEX Qty: 4 RF: 11 pravastatin 40 mg tablet 40 mg PO QHS Qty: 90 RF: 3 carvedilol 25 mg tablet 25 mg PO BID Qty: 180 RF: 3 furosemide 40 mg tablet 40 mg PO DAILY Qty: 90 RF: 3 clopidogrel 75 mg tablet 75 mg PO DAILY Qty: 90 RF: 3 ranolazine 500 mg tablet extended release 12 hr 500 mg PO BID Qty: 60 RF: 11 Primary Care Provider: Jennifer Spicer Referrals: Jennifer Spicer DO [Primary Care Provider] - Disposition Disposition: Acute Care Hospital [facility]
[2021-06-18 22:31] LABS: Absolute Lymphocyte Count 0.93 X10^3/uL (0.83-4.51); Absolute Neutrophil Count 12.1 X10^3/uL (2.0-7.7); Basophil# 0.09 X10^3/uL; Basophil% 0.6 % (0-1); Eosinophils% 0.7 % (0-5); Hematocrit 48.1 % (40-54); Hemoglobin 16.3 g/dL (13.0-16.5); Lymphocyte # 0.93 X10^3/ul (0.83-4.51); Lymphocyte % 6.2 % (19-41); Mean Corp Hgb Conc 33.9 g/dL (32-36); Mean Corpuscular Hgb 30.5 pg (27.0-32.0); Mean Corpuscular Volume 89.9 fL (80-94); Mean Platelet Vol. 9.1 fl (6.2-12.0); Monocyte# 1.43 X10^3/uL; Monocyte% 9.6 % (0-10); NRBC Flagged by Analyzer 0 % (0-5); Neutrophil # 12.05 X10^3/uL (2.7-7.7); Neutrophil % 80.9 % (47-70); Platelet Count 323 K/mm3 (150-450); RBC Distribution Width CV 13.4 % (11.6-14.6); RBC Distribution Width SD 43.8 fl (35.1-43.9); Red Blood Count 5.35 M/mm3 (4.6-6.2); White Blood Count 14.9 K/mm3 (4.4-11.0)
--- NOTE | 2021-06-18 22:35 | RAD_ITS ---
HISTORY: trauma EXAMINATION/TECHNIQUE: XR Knee Complete 4 Views or More: COMPARISON: None FINDINGS: BONES/JOINTS: No acute fracture or dislocation. Postsurgical changes from ACL repair. Tricompartmental degenerative changes. No sclerotic or destructive changes observed. SOFT TISSUES: No soft tissue swelling or gas. Vascular calcifications present. RAD/Knee 4 or More Views IMPRESSION: No acute bony abnormality. at 2331 Reported and signed by: Konrad Castillo MD Electronically Signed: Konrad Castillo MD at 23:30 EDT ,
[2021-06-18 22:46] LABS: Anion Gap 8 (5-15); BUN 56 mg/dL (7-18); BUN/Creat Ratio 25.3 RATIO (10-20); Calcium,Total 9.4 mg/dL (8.5-10.1); Chloride 98 mmol/L (98-107); Creatinine, Serum 2.21 mg/dL (0.70-1.30); EST Glomerular Filtration Rate 32 mL/min (>60); Est Glom Filt Rate - Afr Amer 38 mL/min (>60); Estimated Creatinine Clearance 31.99 ml/min; Glucose 108 mg/dL (74-106); Sodium Level 132 mmol/L (136-145)
[2021-06-19] VITALS (7 sets, daily range): BP systolic 130–160; BP diastolic 82–93; PULSE 69–78; RESP 16–18; TEMP 36.1–36.9; O2SAT 95–98; BMI 25.9
--- NOTE | 2021-06-19 | PCM.HP.STD ---
[facility] - General General Date of Admission: 06/18/21 HPI Narrative RYAN CUMMINS, is a 70 M with a significant history of atrial fibrillation on Eliquis; ICD; heart failure with reduced ejection fraction (echocardiogram of 30% on echo done on 08/27/2020) and on guideline directed medications; and CKD stage IIIb who presents to the emergency department with weakness and inability to ambulate. Patient has a walker, and a cane but is unable to ambulate. Home health saw patient and concluded that patient is too weak so he would need something more than what home health can offer. Patient has had multiple episodes of falling. At one time he injured his left knee; and at another time he injured his right hand. [facility] Medical History Atherosclerosis of coronary artery of [place] heart without angina pectoris Cardiogenic shock (06/08/16) Cardiomyopathy, ischemic Chronic systolic CHF (congestive heart failure) DDD (degenerative disc disease) Esophagitis determined by endoscopy (05/06/17) Essential hypertension Hyperglycemia Hyperlipidemia Hypertensive emergency ICD (implantable cardioverter-defibrillator) in place Left atrial thrombus detention current use of 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 Nonsustained ventricular tachycardia Obesity (BMI 30.0-34.9) 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 infarction Old inferolateral myocardial infarction Old myocardial infarction Pacemaker Paroxysmal atrial fibrillation Right bundle branch block (RBBB) Secondary pulmonary arterial hypertension Stage 3 chronic kidney disease STEMI (ST elevation myocardial infarction) Type II diabetes mellitus Home Medications pantoprazole 40 mg PO BID 03/13/19 [History Last Taken 10/20/19] aspirin 81 mg PO DAILY@0800 10/20/19 [History Last Taken 10/20/19 08:00] spironolactone 25 mg PO DAILY 01/22/20 [History Last Taken Unknown] insulin NPH isoph U-100 human 30 units SC BREAKFAST pen 01/25/20 [Rx Last Taken Unknown] insulin NPH isoph U-100 human 30 units SC QHS pen 01/25/20 [Rx Last Taken Unknown] nitroglycerin 0.4 mg sublingual tablet 0.4 mg SUBLINGUAL Q5M PRN #25 tab 02/01/20 [Rx Last Taken Unknown] apixaban 2.5 mg tablet 2.5 mg PO BID #60 tab 08/28/20 [Rx Last Taken Unknown] metolazone 2.5 mg tablet 2.5 mg PO .COMPLEX #4 tab 01/28/21 [Rx Last Taken Unknown] carvedilol 25 mg tablet 25 mg PO BID #180 tab 03/03/21 [Rx Last Taken Unknown] clopidogrel 75 mg tablet 75 mg PO DAILY #90 tab 03/03/21 [Rx Last Taken Unknown] furosemide 40 mg tablet 40 mg PO DAILY #90 tab 03/03/21 [Rx Last Taken Unknown] pravastatin 40 mg tablet 40 mg PO QHS #90 tab 03/03/21 [Rx Last Taken Unknown] ranolazine 500 mg tablet,extended release,12 hr 500 mg PO BID #60 tab 04/07/21 [Rx Last Taken Unknown] oxycodone 5 mg PO Q6H PRN PRN 06/18/21 [History Last Taken Unknown] Allergy/AdvReac Type Severity Reaction Status Date / Time diltiazem Allergy LOWER LEG Verified 06/18/21 20:24 SWELLING tamsulosin [From Flomax] Allergy Shortness Verified 06/18/21 20:24 of breath/muscle weakness atorvastatin calcium AdvReac MUSCLE Verified 06/18/21 20:24 [From Lipitor] WEAKNESS Family History Brother Sudden cardiac Surgical History H/O elbow surgery H/O left wrist surgery History of cardioversion (04/10/16) History of coronary artery stent placement (06/08/16) Hx of atrioventricular node ablation (02/19/20) 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 therapy 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) S/P right inguinal hernia repair Status post knee surgery Social History adopted: No household members: children housing: house number of children: 1 (Daughter) current occupational status: retired current occupational exposures/hazards: No pets and animals: Yes (cats) history of recent travel: No Smoking Status: Former smoker quit date: 01/03/15 pack-years: 90 how long ago did patient quit smokin years ago alcohol intake: current alcohol intake frequency: a few times a month substance use type: does not use caffeine: Yes Type: coffee Number of servings: 1 ROS ROS Narrative Pertinent positives and pertinent negatives as noted in HPI. All other systems were reviewed and are negative. Vital Signs Vital Signs Vital Signs: 06/18/21 20:22 06/18/21 21:48 Temperature 96.6 F L Temperature Source Temporal Pulse Rate 71 Respiratory Rate 18 Respiratory Effort Normal Non-Labored Respiratory Pattern Normal Blood Pressure 147/87 H Blood Pressure Mean 107 Pulse Ox 92 Oxygen Delivery Method Room Air Weight Weight: 76.204 kg Body Mass Index (BMI) 24.7 Results Lab / Micro Data Result Diagrams: 06/18/21 22:20 06/18/21 22:20 Labs: Laboratory Results - last 24 hr 06/18/21 22:20: WBC 14.9 H, RBC 5.35, Hgb 16.3, Hct 48.1, MCV 89.9, MCH 30.5, MCHC 33.9, RDW Std Deviation 43.8, RDW Coeff of [place] 13.4, Plt Count 323, MPV 9.1, Immature Gran % (Auto) 2.000 H, Neut % (Auto) 80.9 H, Lymph % (Auto) 6.2 L, [place] % (Auto) 9.6, Eos % (Auto) 0.7, Baso % (Auto) 0.6, Absolute Neuts (auto) 12.1 H, Absolute Lymphs (auto) 0.93, Nucleated RBC % 0 06/18/21 22:20: Sodium 132 L, Potassium 4.0, Chloride 98, Carbon Dioxide 26.0, Anion Gap 8, BUN 56 H, Creatinine 2.21 H, Estim Creat Clear Calc 31.99, Est GFR (MDRD) Af Amer 38 L, Est GFR (MDRD) Non-Af 32 L, BUN/Creatinine Ratio 25.3 H, Glucose 108 H, Calcium 9.[address] 06/18/21 22:06 IMPRESSION: Moderate atrophy and periventricular white matter ischemic change. No evidence for acute intracranial hemorrhage. Electronically Signed: Herberth Garcia MD at 22:50 EDT , Knee X-Ray 06/18/21 22:35 IMPRESSION: No acute bony abnormality. at 2331 Reported and signed by: Konrad Castillo MD Electronically Signed: Konrad aCstillo MD at 23:30 EDT Reading Location ID and State: [address] [place] [address] Tel , Service support , Assessment & Plan Assessment/Plan (1) Multiple falls: (2) Generalized weakness: PLAN: Multiple falls and generalized weakness/R hand contusion/ L Knee pain Brain image was visualized and independently interpreted. I agree with radiology interpretation of no acute pathology. Left Knee X-ray unremarkable Apply ice to affected area. oxycodone prn continued. PT and OT to work with patient. Case management consult. Diabetes mellitus Patient with only mildly elevated blood glucose on presentation. De-escalate basal insulin. Accu-Chek QA CHS ordered. Hypertension Blood pressure is not within goal Spironolactone; metolazone; Lasix; and Coreg continued. PRN Hydralazine ordered. Trend blood pressure and adjust blood pressure medications. CKD stage IIIb Stable DVT prophylaxis Eliquis for A. fib continued.
[2021-06-19] MEDS: Ranolazine 500 MG Tablet PO ×2 (02:01→21:33)
[2021-06-19] MEDS: Pantoprazole Sodium 40 MG Tablet PO ×3 (02:01→21:33)
[2021-06-19] MEDS: Pravastatin 40 MG Tablet PO ×2 (02:01→21:33)
[2021-06-19] MEDS: Carvedilol 25 MG Tablet PO ×3 (02:01→16:18)
[2021-06-19] MEDS: APIXABAN 2.5 MG TABLET PO ×3 (02:01→21:33)
[2021-06-19] MEDS: oxyCODONE 5 MG Tablet PO ×2 (02:37→08:23)
[2021-06-19 06:31] LABS: Absolute Lymphocyte Count 0.98 X10^3/uL (0.83-4.51); Basophil# 0.07 X10^3/uL; Basophil% 0.6 % (0-1); Eosinophils% 0.8 % (0-5); Hematocrit 46.9 % (40-54); Hemoglobin 15.3 g/dL (13.0-16.5); Lymphocyte # 0.98 X10^3/ul (0.83-4.51); Lymphocyte % 7.7 % (19-41); Mean Corp Hgb Conc 32.6 g/dL (32-36); Mean Corpuscular Hgb 29.9 pg (27.0-32.0); Mean Corpuscular Volume 91.6 fL (80-94); Mean Platelet Vol. 9.1 fl (6.2-12.0); Monocyte# 1.26 X10^3/uL; Monocyte% 9.9 % (0-10); NRBC Flagged by Analyzer 0 % (0-5); Neutrophil # 10.02 X10^3/uL (2.7-7.7); Neutrophil % 78.9 % (47-70); Platelet Count 303 K/mm3 (150-450); RBC Distribution Width CV 13.5 % (11.6-14.6); RBC Distribution Width SD 45.6 fl (35.1-43.9); Red Blood Count 5.12 M/mm3 (4.6-6.2); White Blood Count 12.7 K/mm3 (4.4-11.0)
[2021-06-19 06:57] LABS: Anion Gap 7 (5-15); BUN 54 mg/dL (7-18); BUN/Creat Ratio 24.4 RATIO (10-20); Calcium,Total 9.3 mg/dL (8.5-10.1); Chloride 97 mmol/L (98-107); Creatinine, Serum 2.21 mg/dL (0.70-1.30); EST Glomerular Filtration Rate 32 mL/min (>60); Est Glom Filt Rate - Afr Amer 38 mL/min (>60); Estimated Creatinine Clearance 31.99 ml/min; Glucose 113 mg/dL (74-106); Potassium 3.9 mmol/L (3.5-5.1); Sodium Level 132 mmol/L (136-145)
[2021-06-19 08:20] LABS: Magnesium 1.7 mg/dL (1.6-2.6); Phosphorus 3.5 mg/dL (2.5-4.9)
[2021-06-19] MEDS: Clopidogrel Bisulfate 75 MG Tablet PO (08:24)
[2021-06-19] MEDS: Acetaminophen 325 MG Tablet 650 MG PO (08:24)
[2021-06-19] MEDS: Spironolactone 25 MG Tablet PO (08:24)
[2021-06-19] MEDS: Furosemide 40 MG Tablet PO (08:24)
[2021-06-19] MEDS: Aspirin 81 MG TAB.CHEW PO (08:24)
[2021-06-19] MEDS: Insulin NPH Human 100 UNITS/ML PEN 10 UNITS SC ×2 (08:26→21:33)
[2021-06-19 11:31] LABS: Bedside Glucose 282 mg/dL (74-106)
[2021-06-19] MEDS: Magnesium Hydroxide 30 ML UDC PO (12:00)
[2021-06-19] MEDS: 0.9% Saline Lock 10 ML Syringe IV (12:01)
--- NOTE | 2021-06-19 12:13 | PCM.PN.HOSP ---
Subjective Subjective Follow-up on debility: Patient was seen and examined. He denied any new complaints. No acute events overnight. Objective Data Objective Data Vital Signs: Vital Signs Temp Pulse Resp BP Pulse Ox 97.6 F L 74 18 137/93 H 95 06/19/21 08:18 06/19/21 08:18 06/19/21 08:18 06/19/21 08:18 06/19/21 08:18 Oxygen Delivery Method Room Air Weight: 79.549 kg Body Mass Index (BMI) 25.9 Intake & Output: Intake and Output for Last 24 Hours 06/17/21 06/18/21 06/19/21 23:59 23:59 23:59 Intake Total 0.75 / 0.75 Output Total 225 / 225 Balance -224.25 / -224.25 Lab / Micro Data Result Diagrams: 06/19/21 06:10 06/19/21 06:10 Labs: Laboratory Results - last 24 hr 06/18/21 22:20: WBC 14.9 H, RBC 5.35, Hgb 16.3, Hct 48.1, MCV 89.9, MCH 30.5, MCHC 33.9, RDW Std Deviation 43.8, RDW Coeff of [place] 13.4, Plt Count 323, MPV 9.1, Immature Gran % (Auto) 2.000 H, Neut % (Auto) 80.9 H, Lymph % (Auto) 6.2 L, [place] % (Auto) 9.6, Eos % (Auto) 0.7, Baso % (Auto) 0.6, Absolute Neuts (auto) 12.1 H, Absolute Lymphs (auto) 0.93, Nucleated RBC % 0 06/18/21 22:20: Sodium 132 L, Potassium 4.0, Chloride 98, Carbon Dioxide 26.0, Anion Gap 8, BUN 56 H, Creatinine 2.21 H, Estim Creat Clear Calc 31.99, Est GFR (MDRD) Af Amer 38 L, Est GFR (MDRD) Non-Af 32 L, BUN/Creatinine Ratio 25.3 H, Glucose 108 H, Calcium 9.4 06/19/21 06:10: WBC 12.7 H, RBC 5.12, Hgb 15.3, Hct 46.9, MCV 91.6, MCH 29.9, MCHC 32.6, RDW Std Deviation 45.6 H, RDW Coeff of [place] 13.5, Plt Count 303, MPV 9.1, Immature Gran % (Auto) 2.100 H, Neut % (Auto) 78.9 H, Lymph % (Auto) 7.7 L, [place] % (Auto) 9.9, Eos % (Auto) 0.8, Baso % (Auto) 0.6, Absolute Neuts (auto) 10.0 H, Absolute Lymphs (auto) 0.98, Nucleated RBC % 0 06/19/21 06:10: Sodium 132 L, Potassium 3.9, Chloride 97 L, Carbon Dioxide 28.0, Anion Gap 7, BUN 54 H, Creatinine 2.21 H, Estim Creat Clear Calc 31.99, Est GFR (MDRD) Af Amer 38 L, Est GFR (MDRD) Non-Af 32 L, BUN/Creatinine Ratio 24.4 H, Glucose 113 H, Calcium 9.3 06/19/21 06:10: Vitamin D 25-Hydroxy 14.0 06/19/21 06:10: Phosphorus 3.5, Magnesium 1.7 06/19/21 11:27: POC Glucose 282 H Radiography Diagnostic Testing: Radiology Impression Brain CT 06/18/21 22:06 IMPRESSION: Moderate atrophy and periventricular white matter ischemic change. No evidence for acute intracranial hemorrhage. Electronically Signed: Herberth Garcia MD at 22:50 EDT , Knee X-Ray 06/18/21 22:35 IMPRESSION: No acute bony abnormality. at 2331 Reported and signed by: Konrad Castilol MD Electronically Signed: Konrad Castillo MD at 23:30 EDT , Physical Exam Narrative Physical exam: General: Alert, Oriented x3, Cooperative, No apparent distress, Well developed HEENT: Atraumatic Oral: Moist Mucosa Neck: Supple Lungs: Clear to auscultation Cardiovascular: HS I+II, regular, no murmurs Abdomen: Bowel Sounds Present, Soft, Non Tender Extremities: No edema Skin: No rashes, No breakdown Neurological: Grossly intact Psych/Mental Status: Appropriate Assessment & Plan Assessment/Plan (1) Multiple falls: (2) Generalized weakness: PLAN: 1. Debility, history of multiple falls PT/OT to evaluate and treat Will check Vit D level Case management/social media job titles consult for discharge planning 2. Hypomagnesemia, Mg 1.7, replaced, recheck in a.m. 3. Type 2 DM, blood sugars fairly uncontrolled, continue current insulin regimen Continue with insulin sliding scale 4. Hypertension, controlled, continue on Coreg, spironolactone 5. CKD stage IIIb, stable 6. DVT PPx- on Eliquis Charges/Coding Visit Charges Inpatient E&M: 68087 Subs Hosp L2
--- NOTE | 2021-06-19 12:45 | CASEMGMT ---
Social Work IBIS met with pt and introduced self and role of SW. Pt is readmitted from hospital stay on 06/11/21-06/12/21. During that hospitalization, therapy recommended SNF and pt refused and returned home with [facility]. Pt lives with his daughter and her family in a two story home with bed and bathroom on second floor. Pt reports he could not get up stairs upon return home and his family had to carry him to his apartment. Pt states as the week went on he was unable to ambulate to the bathroom. Pt family works and pt is home alone. Pt now realizing he cannot be at home and needs short term SNF placement for rehabilitation prior to returning home. SW provided list of SNF providers including quality and resource use data and consistent with the patient's preferred geographic region, medical needs and insurance network. Pt states he does not have a preferred provider and wants IBIS to contact his dgt Stella who can make facility choice. Phone call to Stella and discussed SNF placement. She is in agreement. IBIS reviewed in network facilities. Stella's preferred providers 1. [facility] 2. [facility] 3. [facility]. IBIS notified Mala discharge director of planning, who will make referral to [facility]. IBIS will await determination. ELSI Lynne
--- NOTE | 2021-06-19 13:10 | CASEMGMT ---
DEVYN CM in to discuss MERINO form with patient. RN CM explained MERINO form, patient voiced understanding. Pt signed form and filed in chart. Pt provided with a copy of signed MERINO form. Patient had no further questions or concerns at this time.
--- NOTE | 2021-06-19 13:29 | CASEMGMT ---
Discharge Practicing Dermatologist Called Mala at [facility]. Faxed over referral. Waiting on PT/OT notes. Will follow up. Mala Nayak Discharge Practicing Dermatologist
--- NOTE | 2021-06-19 14:08 | CASEMGMT ---
Discharge Frame Bander Mala [facility] called and accepted patient. She will start pre-cert. IBIS Lam notified. Mala Nayak Discharge Frame Bander
[2021-06-19] MEDS: Insulin Lispro 100 UNIT/ML INSULN.PEN SC ×2 (16:18→21:34)
[2021-06-19 16:26] LABS: Bedside Glucose 389 mg/dL (74-106)
--- NOTE | 2021-06-19 16:54 | CASEMGMT ---
Social Work Pt and dgt Stella updated that [facility] has accepted pt and precert has been started. Both are agreeable to discharge plan. ELSI Lynne
[2021-06-19 21:41] LABS: Bedside Glucose 384 mg/dL (74-106)
[2021-06-20 02:20] VITALS: BP 134/89; PULSE 70; RESP 16; TEMP 36.6; O2SAT 94
[2021-06-20] MEDS: Insulin Lispro 100 UNIT/ML INSULN.PEN SC ×3 (06:30→16:41)
[2021-06-20 06:36] LABS: Bedside Glucose 289 mg/dL (74-106)
[2021-06-20 07:14] VITALS: O2SAT 94
[2021-06-20 07:47] VITALS: BP 146/90; PULSE 68; RESP 16; TEMP 36.4; O2SAT 99
[2021-06-20 08:22] LABS: Bedside Glucose 227 mg/dL (74-106)
[2021-06-20] MEDS: Spironolactone 25 MG Tablet PO (08:38)
[2021-06-20] MEDS: Clopidogrel Bisulfate 75 MG Tablet PO (08:39)
[2021-06-20] MEDS: Insulin NPH Human 100 UNITS/ML PEN 10 UNITS SC (08:39)
[2021-06-20] MEDS: Furosemide 40 MG Tablet PO (08:39)
[2021-06-20] MEDS: Aspirin 81 MG TAB.CHEW PO (08:39)
[2021-06-20] MEDS: Ranolazine 500 MG Tablet PO (08:39)
[2021-06-20] MEDS: Pantoprazole Sodium 40 MG Tablet PO (08:39)
[2021-06-20] MEDS: APIXABAN 2.5 MG TABLET PO (08:39)
[2021-06-20] MEDS: Carvedilol 25 MG Tablet PO ×2 (08:39→16:45)
--- NOTE | 2021-06-20 10:26 | PCM.PN.HOSP ---
Objective Data Objective Data Vital Signs: Vital Signs Temp Pulse Resp BP Pulse Ox 97.5 F L 68 16 146/90 H 99 06/20/21 07:47 06/20/21 07:47 06/20/21 07:47 06/20/21 07:47 06/20/21 07:47 Oxygen Delivery Method Room Air Weight: 79.549 kg Body Mass Index (BMI) 25.9 Intake & Output: Intake and Output for Last 24 Hours 06/18/21 06/19/21 06/20/21 23:59 23:59 23:59 Intake Total 104.75 / 104.75 Output Total 1150 / 1150 500 / 500 Balance -1045.25 / -1045.25 -500 / -500 Lab / Micro Data Result Diagrams: 06/19/21 06:10 06/19/21 06:10 Labs: Laboratory Results - last 24 hr 06/19/21 11:27: POC Glucose 282 H 06/19/21 16:15: POC Glucose 389 H 06/19/21 21:31: POC Glucose 384 H 06/20/21 06:28: POC Glucose 289 H 06/20/21 08:15: POC Glucose 227 H
[2021-06-20] MEDS: Acetaminophen 325 MG Tablet 650 MG PO (10:29)
[2021-06-20 11:11] LABS: Bedside Glucose 338 mg/dL (74-106)
--- NOTE | 2021-06-20 12:46 | CASEMGMT ---
Discharge Web Site Project Manager Mala from [facility] called. Still no pre-cert. Will keep continuing to follow up. Mala Nayak Discharge Web Site Project Manager
[2021-06-20 13:27] VITALS: BP 134/78; PULSE 68; RESP 16; TEMP 36.4; O2SAT 98
--- NOTE | 2021-06-20 13:51 | CASEMGMT ---
Discharge Lump Room Supervisor Mala from [facility] has obtained pre-cert. When medically clear he can go. Notified Jeanne Nayak Discharge Lump Room Supervisor
--- NOTE | 2021-06-20 15:14 | PCM.TXEXTCAR ---
Diet 06/19/21 01:03 Diet: Cardiac - Heart Healthy Food consistency:: Regular Liquid Consistency:: Regular/Thin Is pt able to select menu?: No Routine Orders/Code Status Keep PO Greater than or Equal to (%): 94 Routine Lab Work: CBC (within 3 days) and BMP (within 3 days) Code Status: DNRCC-A Therapies Weight Bearing: Weight bearing as tolerated Extremity Affected:: Bilateral Lower Physical Therapy: Eval and Treat Occupational Therapy: Eval and Treat Problem/Diagnosis (1) Multiple falls: Status: Acute (2) Generalized weakness: Status: Acute Allergies/Procedures Done in Hospital Allergies diltiazem Allergy (Verified 06/18/21 20:24) LOWER LEG SWELLING tamsulosin [From Flomax] Allergy (Verified 06/18/21 20:24) Shortness of breath/muscle weakness atorvastatin calcium [From Lipitor] Adverse Reaction (Verified 06/18/21 20:24) MUSCLE WEAKNESS Procedures: None Type of Care/Length of Stay Estimated LOS: Convalescent Care Less Than 30 days Type of Care Needed: Skilled Rehab Potential: Good Prognosis: Good Additional Orders/Day of Discharge Day of Discharge: 06/20/21 Dietary and Speech Recommendations Dietitian Recommendations/Changes: Cardiac, consistent CHO diet. Will d/c Glucerna at this time and resume if indicated. Discharge Plan Admission Admit Date/Time: 06/18/21 23:52 Primary Reason for Your Visit: Debility Attending Provider: Vicky Lyon Primary Care Provider: Jennifer Spicer Discharge Orders/Prescriptions Prescriptions: Continued pantoprazole 40 MG tablet 40 mg PO BID RF: 0 aspirin 81 MG tablet,chewable 81 mg PO DAILY@0800 RF: 0 spironolactone 50 MG tablet 25 mg PO DAILY RF: 0 insulin NPH isoph U-100 human 100 UNITS/ML insulin pen 30 units SC BREAKFAST RF: 0 insulin NPH isoph U-100 human 100 UNITS/ML insulin pen 30 units SC QHS RF: 0 oxycodone 5 mg tablet 5 mg PO Q6H PRN PRN (Reason: Pain) RF: 0 nitroglycerin 0.4 mg tablet, sublingual 0.4 mg SUBLINGUAL Q5M PRN (Reason: Chest Pain) Qty: 25 RF: 0 apixaban 2.5 mg tablet 2.5 mg PO BID Qty: 60 RF: 11 metolazone 2.5 mg tablet 2.5 mg PO .COMPLEX Qty: 4 RF: 11 pravastatin 40 mg tablet 40 mg PO QHS Qty: 90 RF: 3 carvedilol 25 mg tablet 25 mg PO BID Qty: 180 RF: 3 furosemide 40 mg tablet 40 mg PO DAILY Qty: 90 RF: 3 ranolazine 500 mg tablet extended release 12 hr 500 mg PO BID Qty: 60 RF: 11 Discontinued clopidogrel 75 mg tablet 75 mg PO DAILY Qty: 90 RF: 3 Referrals / Follow Up: Jennifer Spicer DO [Primary Care Provider] - Within 2 Weeks BeverlyIsmael abdalla MD [STAFF PHYSICIAN] - Within 2 Weeks (as scheduled ) Disposition Disposition (needs filled in before D/C Order can be placed): Intermediate Facility
--- NOTE | 2021-06-20 15:27 | DS.PCM_ITS ---
Providers Date of Admission: 06/18/21 Date of Discharge: 06/20/21 Primary Care Physician: Dr. Jennifer Spicer DO Reason For Visit: GENERALIZED WEAKNESS Diagnosis Discharge Diagnosis (1) Multiple falls: Status: Acute Code(s): R29.6 - Repeated falls (2) Generalized weakness: Status: Acute Code(s): R53.1 - Weakness Medications at Discharge Home Medications pantoprazole 40 mg PO BID 03/13/19 aspirin 81 mg PO DAILY@0800 10/20/19 spironolactone 25 mg PO DAILY 01/22/20 insulin NPH isoph U-100 human 30 units SC BREAKFAST pen 01/25/20 insulin NPH isoph U-100 human 30 units SC QHS pen 01/25/20 nitroglycerin 0.4 mg sublingual tablet 0.4 mg SUBLINGUAL Q5M PRN #25 tab 02/01/20 apixaban 2.5 mg tablet 2.5 mg PO BID #60 tab 08/28/20 metolazone 2.5 mg tablet 2.5 mg PO .COMPLEX #4 tab 01/28/21 carvedilol 25 mg tablet 25 mg PO BID #180 tab 03/03/21 furosemide 40 mg tablet 40 mg PO DAILY #90 tab 03/03/21 pravastatin 40 mg tablet 40 mg PO QHS #90 tab 03/03/21 ranolazine 500 mg tablet,extended release,12 hr 500 mg PO BID #60 tab 04/07/21 oxycodone 5 mg PO Q6H PRN PRN 06/18/21 Hospital Course Operations None Procedures None Summary of Care Provided Minutes Spent on Discharge: 35 Hospital Course: 70-year-old male with multiple comorbidities including CAD status post stents, chronic atrial fibrillation, heart failure with reduced EF w ho comes in with generalized weakness and inability to walk. Patient has occasional walker but lately has not been able to walk. Patient has history of recurrent falls. He does not have enough social support. He was admitted for [facility] placement. Patient was monitored in the hospital setting. His magnesium was 1.7 that was replaced. He was seen by PT and OT and skilled for discharge to detention facility. Review of patient's medication showed that patient was on aspirin, Plavix and Eliquis. Patient has had no episodes of bleeds. No drop in his hemoglobin. Discussed with cardiology nurse practitioner, patient has a follow-up on 07/04/21 at 1:30pm. On the day of discharge, patient was seen and examined. No new complaints. No acute events overnight. Physical Exam Narrative Physical exam: General: Alert, Oriented x3, Cooperative, No apparent distress, chronically unwell HEENT: Atraumatic Oral: Moist Mucosa Neck: Supple Lungs: Diminished to auscultation Cardiovascular: HS I+II, regular, no murmurs Abdomen: Bowel Sounds Present, Soft, Non Tender Extremities: No edema Weight / BMI Weight Weight: 79.549 kg Body Mass Index (BMI) 25.9 ABG / Lab / Microbiology Data Result Diagrams: 06/19/21 06:10 06/19/21 06:10 Laboratory: Laboratory Results - last 24 hr 06/19/21 16:15: POC Glucose 389 H 06/19/21 21:31: POC Glucose 384 H 06/20/21 06:28: POC Glucose 289 H 06/20/21 08:15: POC Glucose 227 H 06/20/21 11:01: POC Glucose 338 H D/C Instructions Discharge Diet: 2000 Calorie Control Diet and 2000 mg Sodium Diet Discharge Activity: Return to Normal Activity Meaningful Use Info Meaningful Use Diagnoses (Choose all that apply): None applicable Discharge Plan Admission Admit Date/Time: 06/18/21 23:52 Primary Reason for Your Visit: Debility Attending Provider: Vicky Lyon Primary Care Provider: Jennifer Spicer Discharge Orders/Prescriptions Prescriptions: Continued pantoprazole 40 MG tablet 40 mg PO BID RF: 0 aspirin 81 MG tablet,chewable 81 mg PO DAILY@0800 RF: 0 spironolactone 50 MG tablet 25 mg PO DAILY RF: 0 insulin NPH isoph U-100 human 100 UNITS/ML insulin pen 30 units SC BREAKFAST RF: 0 insulin NPH isoph U-100 human 100 UNITS/ML insulin pen 30 units SC QHS RF: 0 oxycodone 5 mg tablet 5 mg PO Q6H PRN PRN (Reason: Pain) RF: 0 nitroglycerin 0.4 mg tablet, sublingual 0.4 mg SUBLINGUAL Q5M PRN (Reason: Chest Pain) Qty: 25 RF: 0 apixaban 2.5 mg tablet 2.5 mg PO BID Qty: 60 RF: 11 metolazone 2.5 mg tablet 2.5 mg PO .COMPLEX Qty: 4 RF: 11 pravastatin 40 mg tablet 40 mg PO QHS Qty: 90 RF: 3 carvedilol 25 mg tablet 25 mg PO BID Qty: 180 RF: 3 furosemide 40 mg tablet 40 mg PO DAILY Qty: 90 RF: 3 ranolazine 500 mg tablet extended release 12 hr 500 mg PO BID Qty: 60 RF: 11 Discontinued clopidogrel 75 mg tablet 75 mg PO DAILY Qty: 90 RF: 3 Referrals / Follow Up: Ismael Paul MD [STAFF PHYSICIAN] - Within 2 Weeks (as scheduled ) Jennifer Spicer DO [Primary Care Provider] - Within 2 Weeks Disposition Disposition (needs filled in before D/C Order can be placed): [facility] Charges/Coding Visit Charges OBSV E&M: 54035 Observation care discharge
--- NOTE | 2021-06-20 16:04 | CASEMGMT ---
TC to [facility], spoke with Alyssa to make aware pt will be dc'ing to a SNF this date.
[2021-06-20 16:44] VITALS: BP 141/87; PULSE 76; RESP 16; TEMP 36.3; O2SAT 98
[2021-06-20 16:51] LABS: Bedside Glucose 421 mg/dL (74-106)
--- NOTE | 2021-06-20 17:20 | CASEMGMT ---
Social Work Note Pt to discharge to [facility] today. SW in to speak with pt. SW updated pt that pre-cert was obtained for [facility] and he will discharge there today. Pt states understanding. PAS/RR completed. [facility] faxed completed discharge paperwork to [facility] including transfer to extended care facility, signed medication list, any scripts, COVID test/tool, and PAS/RR and PAS/RR results. Original in SNF folder and copy on pt's chart. [facility] spoke with RN, pt to transport via wheelchair van. SW accessed trip assist and arranged transportation via wheelchair van at 6:00pm. Transportation form completed and placed on SNF folder and copy on pt's chart. SW updated RN on transportation time. SW in to speak with pt. SW updated pt on transportation time, pt states understanding. [facility] informed pt that this worker will call his daughter Stella to update and pt states understanding. [facility] placed a call to pt's daughter Stella and updated her on approval, discharge, and transportation time to [facility] today. Stella states understanding. [facility] placed a call to [facility] and spoke with Irma and updated her on discharge and transportation time. Plan: [facility] skilled under PAS/RR level of care with Physician's transporting pt via wheelchair van at 6:00pm Jeanne Foreman MSW, INDUSTRIAL ENGINEERING ANALYST
--- NOTE | 2021-06-20 17:32 | NURSING ---
Called O[facility] and gave report on pt to Irma.
[2021-06-20 18:36] VITALS: BP 137/76; PULSE 70; RESP 16; TEMP 36.4; O2SAT 100
== END 2021-06-20 18:30 | disposition skilled nursing facility (03) ==
LOC: ED 23:54 → MS3 06-19 03:12
PROVIDERS: Admitting Provider Hospitalist; Emergency Provider Emergency Medicine; PCP Family Medicine; Visit Provider Internal Medicine
DX: R53.1 Weakness (principal); I13.0 Hypertensive heart and chronic kidney disease with heart failure and stage 1 through stage 4 chronic kidney disease, or unspecified chronic kidney disease; I42.9 Cardiomyopathy, unspecified; I50.22 Chronic systolic (congestive) heart failure; E11.22 Type 2 diabetes mellitus with diabetic chronic kidney disease; I48.0 Paroxysmal atrial fibrillation; Z79.4 Long term (current) use of insulin; N18.32 Chronic kidney disease, stage 3b; Z79.82 Long term (current) use of aspirin; Z87.891 Personal history of nicotine dependence; I25.10 Atherosclerotic heart disease of native coronary artery without angina pectoris; E78.5 Hyperlipidemia, unspecified; E86.0 Dehydration; Z79.01 Long term (current) use of 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s; R26.2 Difficulty in walking, not elsewhere classified; Z79.899 Other long term (current) drug therapy; Z79.02 Long term (current) use of antithrombotics/antiplatelets; R29.6 Repeated falls; I25.2 Old myocardial infarction; Z95.810 Presence of automatic (implantable) cardiac defibrillator
CPT/HCPCS: 36415; 70450; 73564; 80048; 82306; 82962; 83735; 84100; 85025; 87426; 93005; 97110; 97162; 97166; 97535; 97802; 99218; 99282; J7050; A4216; G0378

== ENCOUNTER 2021-08-15 20:33 | Emergency (ER) | payer MEDICARE, SELFPAY ==
[2016-06-12 14:02] VITALS: BMI 29.7
[2021-08-15 20:33] VITALS: BP 172/87; PULSE 70; RESP 16; TEMP 36.2; O2SAT 97; BMI 26.6
--- NOTE | 2021-08-15 20:40 | RAD_ITS ---
STUDY: X-RAY - RIGHT FOOT CLINICAL: Male, 70 years old. TWISTED FOOT WED NIGHT AND HAS INCREASED SWELLING AND PAIN TODAY TECHNIQUE: 3 view(s) of the foot. COMPARISON: None. FINDINGS: There is a plantar calcaneal spur. Normal visualized subtalar, talonavicular, calcaneocuboid, tarsal and tarsometatarsal articulations. Normal metatarsi. There is degenerative arthrosis of the metatarsophalangeal joint of the hallux with peripheral erosions, suspected gout. Normal tibial and fibular sesamoid bones. Normal interphalangeal joint of the great toe. Normal phalanges of the great toe. Normal second through fifth metatarsophalangeal joints. Normal interphalangeal joints and phalanges of the lesser toes. The soft tissue structures are unremarkable. RAD/Foot min 3 Views IMPRESSION: No fracture or malalignment. Degenerative changes of the first MTP joint with features suggesting gout. Electronically Signed: Wesley Chan MD (Brooks) at 20:59 EDT ,
--- NOTE | 2021-08-15 21:59 | EX.ED.DYSGE1 ---
HPI History of Present Illness Chief Complaint: Lower Extremity Injury Informant: patient Narrative Narrative: Patient complains of right ankle pain. He states on Wednesday he stepped over a curb and Niconyl rotated his right ankle. It did not hurt that much at the time but later that day it started to get sore and has remained sore. He is able to bear weight on it but it is painful. He has no fevers chills nausea or vomiting. He has no known history of gout. Of note, he is on Eliquis. No other injury in this fall. Rest makes it better and weightbearing makes it worse. [facility] Medical History Atherosclerosis of coronary artery of [place] heart without angina pectoris Atrial fibrillation Cardiogenic shock (06/08/16) Cardiomyopathy, ischemic Chronic systolic CHF (congestive heart failure) DDD (degenerative disc disease) Declining functional status Diabetes Esophagitis determined by endoscopy (05/06/17) Essential hypertension Former smoker Generalized weakness Hyperglycemia Hyperlipidemia Hypertensive emergency ICD (implantable cardioverter-defibrillator) in place Inability to ambulate due to multiple joints Left atrial thrombus prison current use of 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 Myocardial infarct Nonsustained ventricular tachycardia Obesity (BMI 30.0-34.9) 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 infarction Old inferolateral myocardial infarction Old myocardial infarction Osteoporosis Paroxysmal atrial fibrillation Right bundle branch block (RBBB) Stage 3 chronic kidney disease STEMI (ST elevation myocardial infarction) Type II diabetes mellitus Home Medications pantoprazole 40 mg PO BID 03/13/19 [History Last Taken 10/20/19] aspirin 81 mg PO DAILY@0800 10/20/19 [History Last Taken 10/20/19 08:00] spironolactone 25 mg PO DAILY 01/22/20 [History Last Taken Unknown] insulin NPH isoph U-100 human 30 units SC QHS pen 01/25/20 [Rx Last Taken Unknown] nitroglycerin 0.4 mg sublingual tablet 0.4 mg SUBLINGUAL Q5M PRN #25 tab 02/01/20 [Rx Last Taken Unknown] apixaban 2.5 mg tablet 2.5 mg PO BID #60 tab 08/28/20 [Rx Last Taken Unknown] metolazone 2.5 mg tablet 2.5 mg PO .COMPLEX #4 tab 01/28/21 [Rx Last Taken Unknown] carvedilol 25 mg tablet 25 mg PO BID #180 tab 03/03/21 [Rx Last Taken Unknown] furosemide 40 mg tablet 40 mg PO DAILY #90 tab 03/03/21 [Rx Last Taken Unknown] ranolazine 500 mg tablet,extended release,12 hr 500 mg PO BID #60 tab 04/07/21 [Rx Last Taken Unknown] oxycodone 5 mg PO Q6H PRN PRN 06/18/21 [History Last Taken Unknown] pravastatin 40 mg tablet 40 mg PO QHS #90 tab 06/30/21 [Rx Last Taken Unknown] dapagliflozin [Farxiga] 5 mg PO QHS 08/15/21 [History Last Taken Unknown] insulin NPH isoph U-100 human 25 units SC BREAKFAST 08/15/21 [History Last Taken Unknown] Allergy/AdvReac Type Severity Reaction Status Date / Time diltiazem Allergy LOWER LEG Verified 08/15/21 20:35 SWELLING tamsulosin [From Flomax] Allergy Shortness Verified 08/15/21 20:35 of breath/muscle weakness atorvastatin calcium AdvReac MUSCLE Verified 08/15/21 20:35 [From Lipitor] WEAKNESS Family History Brother Sudden cardiac Surgical History H/O elbow surgery H/O left wrist surgery History of cardioversion (04/10/16) History of coronary artery stent placement (06/08/16) Hx of atrioventricular node ablation (02/19/20) 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 therapy defibrillator ([employer]EL[employer]-D) (02/2020) S/P right inguinal hernia repair Status post knee surgery Social History adopted: No household members: children housing: house number of children: 1 (Daughter) current occupational status: retired current occupational exposures/hazards: No pets and animals: Yes (cats) history of recent travel: No Smoking Status: Former smoker quit date: 01/03/15 pack-years: 90 how long ago did patient quit smokin years ago alcohol intake: current alcohol intake frequency: a few times a month substance use type: does not use caffeine: Yes Type: coffee Number of servings: 1 ROS ROS ED Constitutional Constitutional ED: Denies chills, fever(s), subjective or sweats ENT ENT ED: Denies rhinorrhea Cardiovascular Cardiovascular: Denies chest pain or palpitations Respiratory/Chest Respiratory/Chest: Denies dyspnea Gastrointestinal Gastrointestinal: Denies nausea or vomiting Genitourinary Genitourinary ED: Denies hematuria Musculoskeletal Musculoskeletal: Reports arthralgias Integumentary Denies rash Neurologic Neurologic: Denies headache(s) Endocrine Endocrinology: Denies polydipsia or polyuria Allergic/Immunologic Allergic/Immunologic ED: Denies mouth swelling or urticaria EXAM Physical Exam Const Vital Signs: 08/15/21 20:33 Temperature 97.2 F L Temperature Source Temporal Pulse Rate 70 Respiratory Rate 16 Blood Pressure 172/87 H Blood Pressure Mean 115 Pulse Ox 97 Oxygen Delivery Method Room Air Positive well nourished and well developed General Appearance ED: well developed and NAD HEENT Reports moist mucous membranes Resp normal respiratory effort GI normal to inspection, nondistended, normoactive bowel sounds and non-tender Palpation: soft Back/Spine no CVA tenderness Extremity Extremity Narrative: Patient does appear to have some subtle swelling of the right ankle. But its not red or warm. I can move it passively. There is no deformity. No tenderness with compression of the calcaneus. Achilles is intact by both palpation and Rodarte test. Distal pulses are intact. No tenderness or pain out in the toes. Neuro oriented x3 Sensorium / Orientation: alert Psych mental status grossly normal Skin no rashes or lesions noted and no wounds MDM MDM MDM Narrative Medical decision making narrative: I did add x-rays of the ankle as that is where more of his discomfort is. We had had original x-rays of the foot. Both of these show no acute fracture. There is some indication of possible gout but he is not having symptoms of this in the involved joint. His symptoms started after a mild traumatic incident. I think he likely has a hemarthrosis causing his discomfort. This should resolve on its own. There is no fever or chills. The joint is not hot. There is no indication for aspiration. He will be placed in a boot for support. He thought that this would help him a lot walking around. He does have cane and walker at home. Radiography Diagnostic Testing: Clinical Impression(s) from Imaging Studies Foot X-Ray 08/15/21 20:40 IMPRESSION: No fracture or malalignment. Degenerative changes of the first MTP joint with features suggesting gout. Electronically Signed: Wesley Chan MD (Brooks) at 20:59 EDT , Ankle X-Ray 08/15/21 22:15 IMPRESSION: No demonstrated fracture or malalignment. Electronically Signed: Wesley Chan MD (Brooks) at 22:39 EDT , Discharge Plan Triage Chief Complaint: Lower Extremity Injury ED Provider: Sree Houston Dx/Rx/DC Orders Clinical Impression: Hemarthrosis of ankle, right Instructions: ED Ankle Sprain (Adult) Prescriptions: No Action pantoprazole 40 MG tablet 40 mg PO BID RF: 0 aspirin 81 MG tablet,chewable 81 mg PO DAILY@0800 RF: 0 spironolactone 50 MG tablet 25 mg PO DAILY RF: 0 insulin NPH isoph U-100 human 100 UNITS/ML insulin pen 30 units SC QHS RF: 0 oxycodone 5 mg tablet 5 mg PO Q6H PRN PRN (Reason: Pain) RF: 0 insulin NPH isoph U-100 human 100 UNITS/ML insulin pen 25 units SC BREAKFAST RF: 0 Farxiga 5 mg tablet 5 mg PO QHS RF: 0 nitroglycerin 0.4 mg tablet, sublingual 0.4 mg SUBLINGUAL Q5M PRN (Reason: Chest Pain) Qty: 25 RF: 0 apixaban 2.5 mg tablet 2.5 mg PO BID Qty: 60 RF: 11 metolazone 2.5 mg tablet 2.5 mg PO .COMPLEX Qty: 4 RF: 11 carvedilol 25 mg tablet 25 mg PO BID Qty: 180 RF: 3 furosemide 40 mg tablet 40 mg PO DAILY Qty: 90 RF: 3 ranolazine 500 mg tablet extended release 12 hr 500 mg PO BID Qty: 60 RF: 11 pravastatin 40 mg tablet 40 mg PO QHS Qty: 90 RF: 3 Primary Care Provider: Jennifer Spicer Referrals: Jennifer Spicer, [Primary Care Provider] - 1 Week if not improving Disposition Disposition: Home, Self Care
--- NOTE | 2021-08-15 22:15 | RAD_ITS ---
STUDY: X-RAY - RIGHT ANKLE REASON FOR EXAM: Male, 70 years old. TWISTED ANKLE WED NIGHT AND HAS INCREASED SWELLING AND PAIN TODAY TECHNIQUE: 3 view(s) of the ankle. COMPARISON: None. FINDINGS: Normal visualized distal tibia and fibula. Normal medial and lateral malleoli. Degenerative arthrosis of the tibiotalar inflation. Small calcaneal spur. The visualized subtalar, talonavicular, calcaneocuboid and tarsal articulations are normal. The soft tissue structures are unremarkable. RAD/Ankle min 3 Views IMPRESSION: No demonstrated fracture or malalignment. Electronically Signed: Wesley Chan MD (Brooks) at 22:39 EDT ,
[2021-08-15 23:00] VITALS: BP 166/94; PULSE 78; O2SAT 98
== END 2021-08-15 23:06 | disposition home or self-care (01) ==
PROVIDERS: Emergency Provider Emergency Medicine; PCP Family Medicine; Visit Provider Emergency Medicine
DX: M25.071 Hemarthrosis, right ankle (principal); I13.0 Hypertensive heart and chronic kidney disease with heart failure and stage 1 through stage 4 chronic kidney disease, or unspecified chronic kidney disease; I42.9 Cardiomyopathy, unspecified; I50.22 Chronic systolic (congestive) heart failure; E11.22 Type 2 diabetes mellitus with diabetic chronic kidney disease; I48.91 Unspecified atrial fibrillation; Z79.4 Long term (current) use of insulin; N18.30 Chronic kidney disease, stage 3 unspecified; E78.5 Hyperlipidemia, unspecified; I25.10 Atherosclerotic heart disease of native coronary artery without angina pectoris; I25.2 Old myocardial infarction; Z79.82 Long term (current) use of aspirin; Z79.899 Other long term (current) drug therapy; Z95.5 Presence of coronary angioplasty implant and graft; Z87.891 Personal history of nicotine dependence
CPT/HCPCS: 73610; 73630; 99284

== ENCOUNTER 2021-08-27 10:58 | Emergency (ER) | payer MEDICARE, SELFPAY ==
[2016-06-12 14:02] VITALS: BMI 29.7
[2021-08-27 11:00] VITALS: BP 160/90; PULSE 76; RESP 18; TEMP 36.1; BMI 25.5
[2021-08-27 11:02] VITALS: BP 160/90; PULSE 70; RESP 20; TEMP 36.1; O2SAT 98
--- NOTE | 2021-08-27 11:14 | EKG12_ITS ---
Test Reason : DIZZY Blood Pressure : / mmHG Vent. Rate : 070 BPM Atrial Rate : 300 BPM P-R Int : 000 ms QRS Dur : 160 ms QT Int : 506 ms P-R-T Axes : 000 170 009 degrees QTc Int : 546 ms Ventricular-paced rhythm Biventricular pacemaker detected Abnormal ECG Confirmed by BELKIS METZ, JUANJOSE ([id number]), senior editor LISBET HAWK ([id number]) on 08/28/2021 11:05:45 AM Referred By: SONIA Confirmed By:JUANJOSE TAMAYO MD
--- NOTE | 2021-08-27 11:14 | RAD_ITS ---
STUDY: X-RAY - RIGHT ANKLE REASON FOR EXAM: Male, 70 years old. injury TECHNIQUE: 3 view(s) of the ankle. COMPARISON: 08/15/2021 FINDINGS: Normal visualized distal tibia and fibula. Normal medial and lateral malleoli. There is mild tibiotalar joint arthrosis with significant irregularity and radiolucency in the anterior aspect of the tibia. CT or MRI would be useful. Normal visualized talus and calcaneus. The visualized subtalar, talonavicular, calcaneocuboid and tarsal articulations are normal. The soft tissue structures are unremarkable. RAD/Ankle min 3 Views IMPRESSION: Tibiotalar joint arthrosis with significant irregularity and radiolucency in the anterior tibia and correlation with CT or MRI would be useful. Electronically Signed: Víctor Boateng MD at 11:45 EDT ,
--- NOTE | 2021-08-27 11:14 | RAD_ITS ---
STUDY: X-RAY CHEST REASON FOR EXAM: Male, 70 years old. sob TECHNIQUE: Single AP portable view of the chest. COMPARISON: 06/11/2021 FINDINGS: Left subclavian AICD. The lungs are clear and expanded. There is no demonstrated pleural abnormality. Normal size heart. Normal mediastinum and loco. Normal visualized pulmonary arteries. Normal visualized aortic arch and descending thoracic aorta. Normal visualized thoracic spine. Normal visualized ribs, clavicles, and shoulders. There is no demonstrated abnormality of the visualized soft tissue structures of the upper abdomen. RAD/Chest 1 View (Portable) IMPRESSION: No active disease. Electronically Signed: Víctor Boateng MD at 11:44 EDT ,
--- NOTE | 2021-08-27 11:16 | EX.ED.DYSGE1 ---
HPI History of Present Illness Chief Complaint: Shortness of Breath Informant: patient Onset/Context/Timing Onset: Today Current Severity: Mild Maximum Severity: Moderate Narrative Narrative: Patient presents secondary to shortness of breath and generalized weakness. He states he was woken from sleep early this morning with shortness of breath. It seemed to get better once he sat up. He does not feel as if he is more swollen or retaining fluid. He denies chest pain. He also has had increased weakness and difficulty getting around at home recently. He did recently injure his right ankle that was x-rayed here and unremarkable. He states that it continues to bother him. He also has chronic left knee pain and has been told he needs a left knee replacement. He denies any new falls since he was seen here recently. [facility] Medical History Atherosclerosis of coronary artery of [place] heart without angina pectoris Atrial fibrillation Cardiogenic shock (06/08/16) Cardiomyopathy, ischemic Chronic systolic CHF (congestive heart failure) DDD (degenerative disc disease) Declining functional status Diabetes Esophagitis determined by endoscopy (05/06/17) Essential hypertension Former smoker Generalized weakness Hyperglycemia Hyperlipidemia Hypertensive emergency ICD (implantable cardioverter-defibrillator) in place Inability to ambulate due to multiple joints Left atrial thrombus FPC current use of 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 Myocardial infarct Nonsustained ventricular tachycardia Obesity (BMI 30.0-34.9) 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 infarction Old inferolateral myocardial infarction Old myocardial infarction Osteoporosis Paroxysmal atrial fibrillation Right bundle branch block (RBBB) Stage 3 chronic kidney disease STEMI (ST elevation myocardial infarction) Type II diabetes mellitus Home Medications pantoprazole 40 mg PO BID 03/13/19 [History Last Taken 10/20/19] aspirin 81 mg PO DAILY@0800 10/20/19 [History Last Taken 10/20/19 08:00] insulin NPH isoph U-100 human 30 units SC QHS pen 01/25/20 [Rx Last Taken Unknown] nitroglycerin 0.4 mg sublingual tablet 0.4 mg SUBLINGUAL Q5M PRN #25 tab 02/01/20 [Rx Last Taken Unknown] carvedilol 25 mg tablet 25 mg PO BID #180 tab 03/03/21 [Rx Last Taken Unknown] furosemide 40 mg tablet 40 mg PO DAILY #90 tab 03/03/21 [Rx Last Taken Unknown] ranolazine 500 mg tablet,extended release,12 hr 500 mg PO BID #60 tab 04/07/21 [Rx Last Taken Unknown] oxycodone 5 mg PO Q6H PRN PRN 06/18/21 [History Last Taken Unknown] pravastatin 40 mg tablet 40 mg PO QHS #90 tab 06/30/21 [Rx Last Taken Unknown] dapagliflozin [Farxiga] 5 mg PO QHS 08/15/21 [History Last Taken Unknown] insulin NPH isoph U-100 human 25 units SC BREAKFAST 08/15/21 [History Last Taken Unknown] apixaban 2.5 mg tablet See Rx Instructions .ROUTE .COMPLEX #60 tab 08/25/21 [Rx Last Taken Unknown] metolazone 2.5 mg tablet 2.5 mg PO .COMPLEX #4 tab 08/25/21 [Rx Last Taken Unknown] spironolactone 50 mg tablet 25 mg PO DAILY #90 tab 08/25/21 [Rx Last Taken Unknown] Allergy/AdvReac Type Severity Reaction Status Date / Time diltiazem Allergy LOWER LEG Verified 08/27/21 11:06 SWELLING tamsulosin [From Flomax] Allergy Shortness Verified 08/27/21 11:06 of breath/muscle weakness atorvastatin calcium AdvReac MUSCLE Verified 08/27/21 11:06 [From Lipitor] WEAKNESS Family History Brother Sudden cardiac Surgical History H/O elbow surgery H/O left wrist surgery History of cardioversion (04/10/16) History of coronary artery stent placement (06/08/16) Hx of atrioventricular node ablation (02/19/20) 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 therapy 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) S/P right inguinal hernia repair Status post knee surgery Social History adopted: No household members: children housing: house number of children: 1 (Daughter) current occupational status: retired current occupational exposures/hazards: No pets and animals: Yes (cats) history of recent travel: No Smoking Status: Former smoker quit date: 01/03/15 pack-years: 90 how long ago did patient quit smokin years ago alcohol intake: current alcohol intake frequency: a few times a month substance use type: does not use caffeine: Yes Type: coffee Number of servings: 1 ROS ROS ED Constitutional Constitutional ED: Denies chills or fever(s) Eyes Eyes: Denies change in vision ENT ENT ED: Denies sore throat Cardiovascular Cardiovascular: Denies chest pain Respiratory/Chest Respiratory/Chest: Reports dyspnea; Denies cough Gastrointestinal Gastrointestinal: Denies abdominal pain, nausea or vomiting Genitourinary Genitourinary ED: Denies dysuria Musculoskeletal Musculoskeletal: Reports arthralgias; Denies back pain or neck pain Integumentary Denies rash Neurologic Neurologic: Reports weakness; Denies headache(s) Allergic/Immunologic Allergic/Immunologic ED: Denies urticaria EXAM Physical Exam Const Vital Signs: 08/27/21 11:00 08/27/21 11:02 08/27/21 11:18 Temperature 96.9 F L 96.9 F L Temperature Source Temporal Temporal Pulse Rate 76 70 Respiratory Rate 18 20 H Respiratory Effort Normal Respiratory Pattern Normal Blood Pressure 160/90 H 160/90 H Blood Pressure Mean 113 113 Pulse Ox 98 Oxygen Delivery Method Room Air Room Air 08/27/21 13:22 08/27/21 14:31 Temperature 97.5 F L 98.4 F Temperature Source Oral Pulse Rate 74 78 Respiratory Rate 20 H 14 Respiratory Effort Respiratory Pattern Blood Pressure 139/74 H 153/78 H Blood Pressure Mean 95 Pulse Ox 97 98 Oxygen Delivery Method Room Air Positive well nourished and well developed General Appearance ED: well developed HEENT Reports normocephalic, head/scalp atraumatic and moist mucous membranes Eyes PERRL and EOMs intact bilaterally Neck supple Chest Wall inspection of chest normal and palpation of chest normal Resp normal respiratory effort and clear to auscultation bilaterally Cardio regular rate and regular rhythm GI normal to inspection, nondistended, normoactive bowel sounds and non-tender Palpation: soft Extremity Extremity Narrative: Mild erythema of the lateral malleolus of the right ankle. Mild bony tenderness. Skin is not excessively warm and exam is not consistent with cellulitis. No tenderness over the foot itself. Mild tenderness diffusely to the left knee. Neuro oriented x3 Neuro Narrative: No focal neurodeficits. Sensorium / Orientation: alert Psych mental status grossly normal MDM MDM MDM Narrative Medical decision making narrative: Patient was placed on side trimmer. EKG obtained along with chest x-ray and right ankle x-ray. Lab work ordered. Lab Data Attestation: I reviewed the patient's lab results. Labs: Laboratory Results - last 24 hr 08/27/21 08/27/21 08/27/21 11:20 11:20 11:20 WBC 16.6 H RBC 5.25 Hgb 14.7 Hct 46.6 MCV 88.8 MCH 28.0 MCHC 31.5 L RDW Std Deviation 47.2 H RDW Coeff of [place] 14.6 Plt Count 535 H MPV 9.3 Immature Gran % (Auto) 1.300 H Neut % (Auto) 80.2 H Lymph % (Auto) 7.5 L [place] % (Auto) 9.2 Eos % (Auto) 1.3 Baso % (Auto) 0.5 Absolute Neuts (auto) 13.3 H Absolute Lymphs (auto) 1.25 Nucleated RBC % 0 Differential Comment Diff Path Review May foll Platelet Estimate SLT INC RBC Morphology NORM C+C Sodium 135 L Potassium 3.2 L Chloride 97 L Carbon Dioxide 31.0 Anion Gap 7 BUN 41 H Creatinine 2.17 H Estim Creat Clear Calc 32.58 Est GFR (MDRD) Af Amer 39 L Est GFR (MDRD) Non-Af 32 L BUN/Creatinine Ratio 18.9 Glucose 46 L Calcium 9.0 Troponin I High Sens 27 B-Natriuretic Peptide 191.0 H POC Glucose 08/27/21 08/27/21 12:18 13:03 WBC RBC Hgb Hct MCV MCH MCHC RDW Std Deviation RDW Coeff of [place] Plt Count MPV Immature Gran % (Auto) Neut % (Auto) Lymph % (Auto) Rankin % (Auto) Eos % (Auto) Baso % (Auto) Absolute Neuts (auto) Absolute Lymphs (auto) Nucleated RBC % Differential Comment Diff Path Review Platelet Estimate RBC Morphology Sodium Potassium Chloride Carbon Dioxide Anion Gap BUN Creatinine Estim Creat Clear Calc Est GFR (MDRD) Af Amer Est GFR (MDRD) Non-Af BUN/Creatinine Ratio Glucose Calcium Troponin I High Sens B-Natriuretic Peptide POC Glucose 52 L 146 H Radiography Chest X-Ray - ED: 1 View, Read by ED Physician and Chronic Changes Diagnostic Testing: Clinical Impression(s) from Imaging Studies Ankle X-Ray 08/27/21 11:14 IMPRESSION: Tibiotalar joint arthrosis with significant irregularity and radiolucency in the anterior tibia and correlation with CT or MRI would be useful. Electronically Signed: Víctor Boateng MD at 11:45 EDT , Chest X-Ray 08/27/21 11:14 IMPRESSION: No active disease. Electronically Signed: Víctor Boateng MD at 11:44 EDT , EKG Initial EKG: Attestation: I personally reviewed and interpreted this EKG as follows: Interpretation: - (Paced rhythm at 70 bpm. No acute ischemia and not significantly changed when compared to prior study of June 18, 2021.) Treatment and Re-Evaluation Narrative: Lab work does reveal slightly elevated white count at 16.6. Hemoglobin stable at 14.7. No left shift noted. Chemistry studies significant for a glucose of 46. BNP is 191. Chest x-ray per my interpretation shows chronic changes no focal infiltrate. Right ankle x-rays reveal chronic/arthritic changes. While awaiting test results patient did ring out to the nurse stated he felt like he was going to pass out. Blood sugar was checked it was noted to be low at 52. This was prior to his glucose returning on the lab work. He was given orange juice to drink and half amp D50. He does admit to taking his insulin this morning but did not eat. Repeat blood sugars 146 and he feels much improved. At this time patient declines hospitalization for PT evaluation and possible rehab/therapy. He wishes to go home. This time I do not have anything to put him in the hospital for. Return instructions are provided. Discharge Plan Triage Chief Complaint: Shortness of Breath Other Complaint: Weakness ED Provider: Hilda De Paz Dx/Rx/DC Orders Clinical Impression: Weakness, Hypoglycemia Instructions: Hypoglycemia (Low Blood Sugar), ED Weakness (Uncertain Cause) Prescriptions: No Action pantoprazole 40 MG tablet 40 mg PO BID RF: 0 aspirin 81 MG tablet,chewable 81 mg PO DAILY@0800 RF: 0 insulin NPH isoph U-100 human 100 UNITS/ML insulin pen 30 units SC QHS RF: 0 oxycodone 5 mg tablet 5 mg PO Q6H PRN PRN (Reason: Pain) RF: 0 insulin NPH isoph U-100 human 100 UNITS/ML insulin pen 25 units SC BREAKFAST RF: 0 Farxiga 5 mg tablet 5 mg PO QHS RF: 0 nitroglycerin 0.4 mg tablet, sublingual 0.4 mg SUBLINGUAL Q5M PRN (Reason: Chest Pain) Qty: 25 RF: 0 carvedilol 25 mg tablet 25 mg PO BID Qty: 180 RF: 3 furosemide 40 mg tablet 40 mg PO DAILY Qty: 90 RF: 3 ranolazine 500 mg tablet extended release 12 hr 500 mg PO BID Qty: 60 RF: 11 pravastatin 40 mg tablet 40 mg PO QHS Qty: 90 RF: 3 metolazone 2.5 mg tablet 2.5 mg PO .COMPLEX Qty: 4 RF: 11 spironolactone 50 mg tablet 25 mg PO DAILY Qty: 90 RF: 3 Eliquis 2.5 mg tablet See Rx Instructions .ROUTE .COMPLEX Qty: 60 RF: 11 Primary Care Provider: Jennifer Spicer Referrals: Jennifer Spicer DO [Primary Care Provider] - 3-5 Days Activity Restrictions/Additional Instructions: Social work will call you to discuss possibility of home health or other assistance that may be available to you. Disposition Disposition: Home, Self Care Discharge Date/Time: 08/27/21 14:32
[2021-08-27 11:32] LABS: Absolute Lymphocyte Count 1.25 X10^3/uL (0.83-4.51); Absolute Neutrophil Count 13.3 X10^3/uL (2.0-7.7); Basophil# 0.08 X10^3/uL; Basophil% 0.5 % (0-1); Eosinophil# 0.21 X10^3/uL; Eosinophils% 1.3 % (0-5); Hematocrit 46.6 % (40-54); Hemoglobin 14.7 g/dL (13.0-16.5); Lymphocyte # 1.25 X10^3/ul (0.83-4.51); Lymphocyte % 7.5 % (19-41); Mean Corp Hgb Conc 31.5 g/dL (32-36); Mean Corpuscular Volume 88.8 fL (80-94); Mean Platelet Vol. 9.3 fl (6.2-12.0); Monocyte# 1.53 X10^3/uL; Monocyte% 9.2 % (0-10); NRBC Flagged by Analyzer 0 % (0-5); Neutrophil # 13.34 X10^3/uL (2.7-7.7); Neutrophil % 80.2 % (47-70); POSITIVE DIFFERENTIAL YES; Platelet Count 535 K/mm3 (150-450); RBC Distribution Width CV 14.6 % (11.6-14.6); RBC Distribution Width SD 47.2 fl (35.1-43.9); Red Blood Count 5.25 M/mm3 (4.6-6.2); White Blood Count 16.6 K/mm3 (4.4-11.0)
[2021-08-27 11:37] LABS: Differential Indicated SCAN CRITERIA MET
[2021-08-27 11:50] LABS: Anion Gap 7 (5-15); BUN 41 mg/dL (7-18); BUN/Creat Ratio 18.9 RATIO (10-20); Chloride 97 mmol/L (98-107); Creatinine, Serum 2.17 mg/dL (0.70-1.30); EST Glomerular Filtration Rate 32 mL/min (>60); Est Glom Filt Rate - Afr Amer 39 mL/min (>60); Estimated Creatinine Clearance 32.58 ml/min; Glucose 46 mg/dL (74-106); Potassium 3.2 mmol/L (3.5-5.1); Sodium Level 135 mmol/L (136-145); Troponin-I HS 27 pg/mL (3.0-78.0)
[2021-08-27 12:03] LABS: Platelet Estimate SLT INC (ADEQ)
[2021-08-27 12:04] LABS: Red Cell Morphology NORM C+C NORMAL (NORM C&C)
[2021-08-27 12:26] LABS: Bedside Glucose 52 mg/dL (74-106)
[2021-08-27] MEDS: Dextrose 10%-Water 250 ML 999 ML IV (12:26)
[2021-08-27 13:05] LABS: Bedside Glucose 146 mg/dL (74-106)
[2021-08-27 13:22] VITALS: BP 139/74; PULSE 74; RESP 20; TEMP 36.4; O2SAT 97
[2021-08-27 14:31] VITALS: BP 153/78; PULSE 78; RESP 14; TEMP 36.9; O2SAT 98
[2021-08-28 12:59] LABS: Pathologist Review Reviewed
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
== END 2021-08-27 14:32 | disposition home or self-care (01) ==
PROVIDERS: Emergency Provider Emergency Medicine; PCP Family Medicine; Visit Provider Emergency Medicine
DX: E11.649 Type 2 diabetes mellitus with hypoglycemia without coma (principal); I13.0 Hypertensive heart and chronic kidney disease with heart failure and stage 1 through stage 4 chronic kidney disease, or unspecified chronic kidney disease; I50.22 Chronic systolic (congestive) heart failure; E11.22 Type 2 diabetes mellitus with diabetic chronic kidney disease; I48.0 Paroxysmal atrial fibrillation; Z79.4 Long term (current) use of insulin; N18.30 Chronic kidney disease, stage 3 unspecified; R53.1 Weakness; G89.29 Other chronic pain; I25.10 Atherosclerotic heart disease of native coronary artery without angina pectoris; I25.2 Old myocardial infarction; E78.5 Hyperlipidemia, unspecified; M81.0 Age-related osteoporosis without current pathological fracture; Z95.5 Presence of coronary angioplasty implant and graft; Z95.810 Presence of automatic (implantable) cardiac defibrillator; Z79.01 Long term (current) use of 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s; Z79.82 Long term (current) use of aspirin; Z79.899 Other long term (current) drug therapy; Z87.891 Personal history of nicotine dependence
CPT/HCPCS: 71045; 73610; 80048; 82962; 83880; 84484; 85025; 93005; 96365; 99285; A4216

== ENCOUNTER 2021-10-02 21:41 | Emergency (ER) | payer MEDICARE, SELFPAY ==
[2016-06-12 14:02] VITALS: BMI 29.7
[2021-10-02 21:42] VITALS: BP 130/106; PULSE 69; RESP 16; TEMP 36.6; O2SAT 96; BMI 26.6
--- NOTE | 2021-10-02 21:46 | EKG12_ITS ---
Test Reason : CP Blood Pressure : / mmHG Vent. Rate : 072 BPM Atrial Rate : 312 BPM P-R Int : 000 ms QRS Dur : 136 ms QT Int : 444 ms P-R-T Axes : 000 171 066 degrees QTc Int : 486 ms Ventricular-paced rhythm Abnormal ECG Confirmed by MEL METZ, REINA ([id number]), deputy editor in chief LISBET HAWK ([id number]) on 10/07/2021 10:15:19 AM Referred By: COLTON Confirmed By:REINA LEAL MD
[2021-10-02 21:51] VITALS: PULSE 70
[2021-10-02 22:01] LABS: Absolute Lymphocyte Count 1.13 X10^3/uL (0.83-4.51); Absolute Neutrophil Count 8.4 X10^3/uL (2.0-7.7); Basophil# 0.05 X10^3/uL; Basophil% 0.5 % (0-1); Eosinophils% 4.5 % (0-5); Hematocrit 43.7 % (40-54); Hemoglobin 13.7 g/dL (13.0-16.5); Lymphocyte # 1.13 X10^3/ul (0.83-4.51); Lymphocyte % 10.2 % (19-41); Mean Corp Hgb Conc 31.4 g/dL (32-36); Mean Corpuscular Hgb 27.6 pg (27.0-32.0); Mean Corpuscular Volume 88.1 fL (80-94); Monocyte# 0.81 X10^3/uL; Monocyte% 7.3 % (0-10); NRBC Flagged by Analyzer 0 % (0-5); Neutrophil # 8.36 X10^3/uL (2.7-7.7); Neutrophil % 75.7 % (47-70); Platelet Count 262 K/mm3 (150-450); RBC Distribution Width CV 17.2 % (11.6-14.6); RBC Distribution Width SD 54.3 fl (35.1-43.9); Red Blood Count 4.96 M/mm3 (4.6-6.2); White Blood Count 11.1 K/mm3 (4.4-11.0)
--- NOTE | 2021-10-02 22:04 | EDS_ITS ---
HPI History of Present Illness Chief Complaint: Chest Pain Narrative Narrative: 71-year-old male presenting with chest pain for the last 2 to 3 days. Patient states that the pain is intermittent. It last a couple of minutes. It goes away on its own. He stating he is little short of breath when he climbs stairs. He states he normally is able to climb stairs without difficulty. He states the last couple of nights this pain is woken up from sleep. He feels like he needs to sit up and catch his breath. The pain resolves. He is having the pain during the day. He does describe dyspnea on exertion. Patient denies fever or chills. He states he has a slight cough. Patient with significant medical history of CKD, CAD, cardiac stent, ischemic cardiomyopathy, A. fib with anticoagulation on Eliquis. He denies black or bloody stools. Patient does state that he was called in ranolazine today by Dr. Paul's office. He was told that if he continues to have pain to come to the emergency room. Prior to coming he took a nitroglycerin and his pain is improved. 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 Myocardial infarct Nonsustained ventricular tachycardia Obesity (BMI 30.0-34.9) 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 infarction Old inferolateral myocardial infarction Old myocardial infarction Osteoporosis Paroxysmal atrial fibrillation Right bundle branch block (RBBB) Stage 3 chronic kidney disease STEMI (ST elevation myocardial infarction) Type II diabetes mellitus Home Medications pantoprazole 40 mg tablet,delayed release 40 mg PO BID gerd 03/13/19 [History Last Taken 10/20/19] aspirin 81 mg chewable tablet 81 mg PO DAILY@0800 heart health 10/20/19 [History Last Taken 10/20/19 08:00] insulin NPH isoph U-100 human 100 unit/mL (3 mL) subcutaneous pen 30 units (0.3 mL) subcut QHS 01/25/20 [Rx Last Taken Unknown] nitroglycerin 0.4 mg sublingual tablet 0.4 mg sublingual Q5M PRN Chest Pain #25 tabs 02/01/20 [Rx Last Taken Unknown] furosemide 40 mg tablet 40 mg PO DAILY diuretic #90 tabs 03/03/21 [Rx Last Taken Unknown] ranolazine 500 mg tablet,extended release,12 hr 500 mg PO BID #60 tabs 04/07/21 [Rx Last Taken Unknown] oxycodone 5 mg tablet 5 mg PO Q6H PRN PRN Pain 06/18/21 [History Last Taken Unknown] pravastatin 40 mg tablet 40 mg PO QHS cholesterol #90 tabs 06/30/21 [Rx Last Taken Unknown] dapagliflozin 5 mg tablet (Farxiga) 5 mg PO QHS 08/15/21 [History Last Taken Unknown] insulin NPH isoph U-100 human 100 unit/mL (3 mL) subcutaneous pen 25 units SC BREAKFAST 08/15/21 [History Last Taken Unknown] apixaban 2.5 mg tablet (Eliquis) See Rx Instructions .Route .COMPLEX #60 tabs 08/25/21 [Rx Last Taken Unknown] metolazone 2.5 mg tablet 2.5 mg PO .2 x week This is a dose increase, pt. is OUT. #10 tabs 09/17/21 [Rx Last Taken Unknown] spironolactone 25 mg tablet 25 mg PO DAILY Pt is OUT, dose has changed. Daughter notified. #90 tabs 09/17/21 [Rx Last Taken Unknown] carvedilol 25 mg tablet 25 mg PO BID #180 tabs 09/24/21 [Rx Last Taken Unknown] isosorbide mononitrate 30 mg tablet,extended release 24 hr 30 mg PO BID #60 tabs 10/02/21 [Rx Last Taken Unknown] isosorbide mononitrate 30 mg tablet,extended release 24 hr 30 mg PO DAILY 10/02/21 [History Last Taken Unknown] Allergy/AdvReac Type Severity Reaction Status Date / Time diltiazem Allergy LOWER LEG Verified 10/02/21 21:43 SWELLING tamsulosin [From Flomax] Allergy Shortness Verified 10/02/21 21:43 of breath/muscle weakness atorvastatin calcium AdvReac MUSCLE Verified 10/02/21 21:43 [From Lipitor] WEAKNESS Family History Brother Sudden cardiac Surgical History H/O elbow surgery H/O left wrist surgery History of cardioversion (04/10/16) History of coronary artery stent placement (06/08/16) Hx of atrioventricular node ablation (02/19/20) 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) S/P right inguinal hernia repair Status post knee surgery Social History adopted: No household members: children housing: house number of children: 1 (Daughter) current occupational status: retired current occupational exposures/hazards: No pets and animals: Yes (cats) history of recent travel: No Smoking Status: Former smoker quit date: 01/03/15 pack-years: 90 how long ago did patient quit smokin years ago alcohol intake: current alcohol intake frequency: a few times a month substance use type: does not use caffeine: Yes Type: coffee Number of servings: 1 ROS ROS ED Constitutional Constitutional ED: Denies chills or fever(s) Eyes Eyes: Denies blurry vision or change in vision ENT ENT ED: Denies rhinorrhea or sore throat Cardiovascular Cardiovascular: Reports chest pain Respiratory/Chest Respiratory/Chest: Reports cough, dyspnea, dyspnea on exertion and other Gastrointestinal Gastrointestinal: Denies abdominal pain, constipation or diarrhea Genitourinary Genitourinary ED: Denies dysuria Musculoskeletal Musculoskeletal: Denies arthralgias or back pain Integumentary Denies abscess Neurologic Neurologic: Denies headache(s) Psychiatric Psychiatric: Denies anxiety or depression EXAM Physical Exam Const Vital Signs: 10/02/21 21:42 10/02/21 21:49 10/02/21 21:51 Temperature 98 F Temperature Source Temporal Pulse Rate 69 70 Respiratory Rate 16 Blood Pressure 130/106 H Blood Pressure Mean 114 Pulse Ox 96 Oxygen Delivery Method Room Air Room Air 10/02/21 23:49 Temperature Temperature Source Pulse Rate 78 Respiratory Rate 20 H Blood Pressure Blood Pressure Mean Pulse Ox Oxygen Delivery Method Positive well nourished General Appearance ED: NAD; Negative for pallor HEENT Reports moist mucous membranes normocephalic and atraumatic Eyes PERRL and EOMs intact bilaterally Chest Wall inspection of chest normal Resp normal respiratory effort and clear to auscultation bilaterally Effort and Inspection: Negative for respiratory distress Cardio regular rate and regular rhythm GI normal to inspection, nondistended, normoactive bowel sounds Neuro oriented x3 Sensorium / Orientation: awake and alert Psych mental status grossly normal Skin General Skin Exam: Negative for jaundice or pallor Heart Score History: Slightly/Non-Suspicious ECG: Normal Age: >/= 65 years Risk Factors: >/= 3 Risk Factors or History of CAD Score: 4 MDM MDM MDM Narrative Medical decision making narrative: Patient presenting with intermittent chest pain for the last 2 to 3 days. He is complaining of some shortness of breath with exertion as well as with independently possibly orthopnea as he stated he was waking up with chest pain and shortness of breath when he sleeps. No fevers or chills. Not eating drinking normally. Making normal urine and stool. Patient is on Eliquis alive low clinical suspicion for PE. EKG is obtained and on my interpretation this is a ventricular paced rhythm with a rate of [address] elevation or depression. High-sensitivity troponin is 34 which is about where he has been. CBC is unremarkable. BMP shows a creatinine of 1.88. This was 2.17 last month. Chest x-ray on my interpretation shows very mild pulmonary vascular congestion and the radiologist does agree. I spoke with Dr. Trimble regarding the patient and he felt that if the patient's second troponin did not change significantly would likely be diuresed at home and increase his Lasix over the weekend. After discussing this with the patient he stated that he wants to go home and does not want a second troponin. He states that his family wants to go home. I feel he has the capacity to make this decision. He acknowledges the risks of leaving without knowing his heart enzymes are trending. I will have him increase his Lasix over the weekend. He states he has a follow-up with Dr. Trimble on Wednesday. He is given return precautions. Impression: 1. Chest pain 2. CHF Lab Data Attestation: I reviewed the patient's lab results. Labs: Laboratory Results - last 24 hr 06/30/22 06/30/22 21:54 21:54 WBC 11.1 H RBC 4.96 Hgb 13.7 Hct 43.7 MCV 88.1 MCH 27.6 MCHC 31.4 L RDW Std Deviation 54.3 H RDW Coeff of [place] 17.2 H Plt Count 262 MPV 9.0 Immature Gran % (Auto) 1.800 H Neut % (Auto) 75.7 H Lymph % (Auto) 10.2 L [place] % (Auto) 7.3 Eos % (Auto) 4.5 Baso % (Auto) 0.5 Absolute Neuts (auto) 8.4 H Absolute Lymphs (auto) 1.13 Nucleated RBC % 0 Sodium 133 L Potassium 3.8 Chloride 100 Carbon Dioxide 26.0 Anion Gap 7 BUN 31 H Creatinine 1.88 H Estim Creat Clear Calc 37.08 Est GFR (MDRD) Af Amer 46 L Est GFR (MDRD) Non-Af 38 L BUN/Creatinine Ratio 16.5 Glucose 215 H Calcium 8.3 L Troponin I High Sens 34 Radiography Diagnostic Testing: Clinical Impression(s) from Imaging Studies Chest X-Ray 10/02/21 22:08 IMPRESSION: Possible slight pulmonary vascular congestion. No confluent airspace disease. Electronically Signed: Elmo Escobar MD at 22:50 EDT , Discharge Plan Triage Chief Complaint: Chest Pain ED Provider: Kamran Johnson Dx/Rx/DC Orders Instructions: ED Heart Failure, Congestive (CHF) Prescriptions: No Action pantoprazole 40 MG tablet 40 mg PO BID aspirin 81 MG tablet,chewable 81 mg PO DAILY@0800 insulin NPH isoph U-100 human 100 UNITS/ML insulin pen 30 units SC QHS 0RF oxycodone 5 mg tablet 5 mg PO Q6H PRN PRN (Reason: Pain) Label Comments: TAKE 1 TABLET BY MOUTH EVERY 6 HOURS for severe pain insulin NPH isoph U-100 human 100 UNITS/ML insulin pen 25 units SC BREAKFAST Farxiga 5 mg tablet 5 mg PO QHS Label Comments: TAKE 1 TABLET BY MOUTH ONCE DAILY isosorbide mononitrate 30 mg Tablet Extended Release 24 Hr 30 mg PO DAILY nitroglycerin 0.4 mg tablet, sublingual 0.4 mg SUBLINGUAL Q5M PRN (Reason: Chest Pain) Qty: 25 0RF Rx Instructions: Place one tab under tongue every 5 minutes x 3 doses as needed furosemide 40 mg tablet 40 mg PO DAILY Qty: 90 3RF Rx Instructions: ranolazine 500 mg tablet extended release 12 hr 500 mg PO BID Qty: 60 11RF pravastatin 40 mg tablet 40 mg PO QHS Qty: 90 3RF Eliquis 2.5 mg tablet See Rx Instructions .ROUTE .COMPLEX Qty: 60 11RF Dose Instruction: TAKE 1 TABLET BY MOUTH TWICE DAILY for blood thinner Rx Instructions: TAKE 1 TABLET BY MOUTH TWICE DAILY for blood thinner metolazone 2.5 mg tablet 2.5 mg PO .2 x week Qty: 10 11RF Rx Instructions: take on Wednesday and Wednesday. spironolactone 25 mg tablet 25 mg PO DAILY Qty: 90 3RF carvedilol 25 mg tablet 25 mg PO BID Qty: 180 3RF isosorbide mononitrate 30 mg tablet extended release 24 hr 30 mg PO BID Qty: 60 11RF Primary Care Provider: Jennifer Spicer Referrals: Jennifer Spicer DO [Primary Care Provider] - Disposition Disposition: Home, Self Care
--- NOTE | 2021-10-02 22:08 | RAD_ITS ---
INDICATION: chest pain EXAMINATION: Frontal view of the chest COMPARISON: None. FINDINGS: Frontal view of the chest was obtained. A pacing device projects over the left axilla. The cardiac silhouette is not enlarged. Pulmonary vasculature is borderline prominent. No confluent airspace disease. No pneumothorax. No acute fracture identified. RAD/Chest 1 View (Portable) IMPRESSION: Possible slight pulmonary vascular congestion. No confluent airspace disease. Electronically Signed: Elmo Escobar MD at 22:50 EDT ,
[2021-10-02 22:22] LABS: Anion Gap 7 (5-15); BUN 31 mg/dL (7-18); BUN/Creat Ratio 16.5 RATIO (10-20); Calcium,Total 8.3 mg/dL (8.5-10.1); Chloride 100 mmol/L (98-107); Creatinine, Serum 1.88 mg/dL (0.70-1.30); EST Glomerular Filtration Rate 38 mL/min (>60); Est Glom Filt Rate - Afr Amer 46 mL/min (>60); Estimated Creatinine Clearance 37.08 ml/min; Glucose 215 mg/dL (74-106); Potassium 3.8 mmol/L (3.5-5.1); Sodium Level 133 mmol/L (136-145); Troponin-I HS 34 pg/mL (3.0-78.0)
[2021-10-02 23:49] VITALS: PULSE 78; RESP 20
[2021-10-03] MEDS: Furosemide 40 MG/4 ML Vial IV (00:47)
[2021-10-03 01:00] VITALS: PULSE 76; RESP 16; O2SAT 97
== END 2021-10-03 01:01 | disposition home or self-care (01) ==
PROVIDERS: Emergency Provider Student in an Organized Health Care Education/Training Program; PCP Family Medicine; Visit Provider Student in an Organized Health Care Education/Training Program
DX: R07.9 Chest pain, unspecified (principal); I13.0 Hypertensive heart and chronic kidney disease with heart failure and stage 1 through stage 4 chronic kidney disease, or unspecified chronic kidney disease; I50.22 Chronic systolic (congestive) heart failure; E11.22 Type 2 diabetes mellitus with diabetic chronic kidney disease; I48.0 Paroxysmal atrial fibrillation; Z79.4 Long term (current) use of insulin; N18.30 Chronic kidney disease, stage 3 unspecified; I25.10 Atherosclerotic heart disease of native coronary artery without angina pectoris; E78.5 Hyperlipidemia, unspecified; I25.5 Ischemic cardiomyopathy; I25.2 Old myocardial infarction; E66.9 Obesity, unspecified; Z68.26 Body mass index [BMI] 26.0-26.9, adult; Z95.5 Presence of coronary angioplasty implant and graft; Z95.810 Presence of automatic (implantable) cardiac defibrillator; Z79.01 Long term (current) use of 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s; Z79.82 Long term (current) use of aspirin; Z79.899 Other long term (current) drug therapy; Z87.891 Personal history of nicotine dependence
CPT/HCPCS: 71045; 80048; 84484; 85025; 87811; 93005; 96374; 99283; A4216; J1940

== ENCOUNTER 2021-10-23 03:34 | Inpatient (IN) | payer MEDICARE, SELFPAY ==
[2016-06-12 14:02] VITALS: BMI 29.7
[2021-10-23] VITALS (12 sets, daily range): BP systolic 150–179; BP diastolic 84–101; PULSE 66–80; RESP 14–21; TEMP 36.2–36.6; O2SAT 94–99; BMI 26.6; BMI 25.7
--- NOTE | 2021-10-23 03:48 | EKG12_ITS ---
Test Reason : CP Blood Pressure : / mmHG Vent. Rate : 070 BPM Atrial Rate : 312 BPM P-R Int : 000 ms QRS Dur : 152 ms QT Int : 458 ms P-R-T Axes : 265 164 026 degrees QTc Int : 494 ms Ventricular-paced rhythm Biventricular pacemaker detected Abnormal ECG Confirmed by MEL METZ, REINA ([id number]), photograph editor ROMULO BAÑUELOS ([id number]) on 10/24/2021 7:54:04 AM Referred By: VERONICA Confirmed By:REINA LEAL MD
--- NOTE | 2021-10-23 03:50 | ED.VIS.CHEST ---
HPI History of Present Illness Chief Complaint: Chest Pain Informant: patient Narrative Narrative: Patient had an episode of sharp left-sided chest pain this evening. It lasted for maybe 3 to 5 minutes and then went away. About 10 or 15 minutes later it came back. Was a little bit worse. During this time he felt slightly short of breath and slightly nauseated. He felt hot but did not break out into a sweat. May have been slightly lightheaded. The first episode went away by itself. The second he took a nitroglycerin and then took another 115 minutes later and his symptoms resolved. He is pain-free now. He was here a few weeks ago with some pain. He states the type of pain was slightly different. He has had a couple episodes of discomfort in between. 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 He is taking aspirin and Eliquis. He has not been feeling ill prior to this. He has had 6 stents in the past. He does not recall when his last one was. He does not recall his last heart cath or stress test. He does have some exertional dyspnea. Its not clear if this is consistently worsening though. He has an ICD and pacer. He states his ICD has never fired and did not fire tonight. He has a monitor next to his bed that would let him know if it had gone off. 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 of 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 Myocardial infarct Nonsustained ventricular tachycardia Obesity (BMI 30.0-34.9) 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 infarction Old inferolateral myocardial infarction Old myocardial infarction Osteoporosis Paroxysmal atrial fibrillation Right bundle branch block (RBBB) Stage 3 chronic kidney disease STEMI (ST elevation myocardial infarction) Type II diabetes mellitus Home Medications pantoprazole 40 mg tablet,delayed release 40 mg PO BID gerd 03/13/19 [History Last Taken 10/20/19] aspirin 81 mg chewable tablet 81 mg PO DAILY@0800 [facility] 10/20/19 [History Last Taken 10/20/19 08:00] insulin NPH isoph U-100 human 100 unit/mL (3 mL) subcutaneous pen 30 units (0.3 mL) subcut QHS 01/25/20 [Rx Last Taken Unknown] nitroglycerin 0.4 mg sublingual tablet 0.4 mg sublingual Q5M PRN Chest Pain #25 tabs 02/01/20 [Rx Last Taken Unknown] furosemide 40 mg tablet 40 mg PO DAILY diuretic #90 tabs 03/03/21 [Rx Last Taken Unknown] ranolazine 500 mg tablet,extended release,12 hr 500 mg PO BID #60 tabs 04/07/21 [Rx Last Taken Unknown] oxycodone 5 mg tablet 5 mg PO Q6H PRN PRN Pain 06/18/21 [History Last Taken Unknown] pravastatin 40 mg tablet 40 mg PO QHS cholesterol #90 tabs 06/30/21 [Rx Last Taken Unknown] insulin NPH isoph U-100 human 100 unit/mL (3 mL) subcutaneous pen 25 units SC BREAKFAST 08/15/21 [History Last Taken Unknown] apixaban 2.5 mg tablet (Eliquis) See Rx Instructions .Route .COMPLEX #60 tabs 08/25/21 [Rx Last Taken Unknown] metolazone 2.5 mg tablet 2.5 mg PO .2 x week This is a dose increase, pt. is OUT. #10 tabs 09/17/21 [Rx Last Taken Unknown] spironolactone 25 mg tablet 25 mg PO DAILY Pt is OUT, dose has changed. Daughter notified. #90 tabs 09/17/21 [Rx Last Taken Unknown] carvedilol 25 mg tablet 25 mg PO BID #180 tabs 09/24/21 [Rx Last Taken Unknown] isosorbide mononitrate 30 mg tablet,extended release 24 hr 30 mg PO DAILY 10/02/21 [History Last Taken Unknown] isosorbide mononitrate 30 mg tablet,extended release 24 hr 30 mg PO BID #60 tabs 10/07/21 [Rx Last Taken Unknown] Allergy/AdvReac Type Severity Reaction Status Date / Time diltiazem Allergy LOWER LEG Verified 10/23/21 03:41 SWELLING tamsulosin [From Flomax] Allergy Shortness Verified 10/23/21 03:41 of breath/muscle weakness atorvastatin calcium AdvReac MUSCLE Verified 10/23/21 03:41 [From Lipitor] WEAKNESS Family History Brother Sudden cardiac Surgical History H/O elbow surgery H/O left wrist surgery History of cardioversion (04/10/16) History of coronary artery stent placement (06/08/16) Hx of atrioventricular node ablation (02/19/20) 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 therapy defibrillator (GAS WELDER-D) (02/2020) S/P right inguinal hernia repair Status post knee surgery Social History adopted: No household members: children housing: house number of children: 1 (Daughter) current occupational status: retired current occupational exposures/hazards: No pets and animals: Yes (cats) history of recent travel: No Smoking Status: Former smoker quit date: 01/03/15 pack-years: 90 how long ago did patient quit smokin years ago alcohol intake: current alcohol intake frequency: a few times a month substance use type: does not use caffeine: Yes Type: coffee Number of servings: 1 ROS ROS ED Constitutional Constitutional ED: Reports sweats Eyes Eyes: Denies blurry vision ENT ENT ED: Denies rhinorrhea or sore throat Cardiovascular Cardiovascular: Reports as per HPI, chest pain and other Details: His chest pain was left-sided and radiated up toward the base of his neck and top of his left shoulder. It did not go to the back. Respiratory/Chest Respiratory/Chest: Reports dyspnea Gastrointestinal Gastrointestinal: Reports nausea; Denies vomiting Musculoskeletal Musculoskeletal: Denies back pain Integumentary Denies rash Neurologic Neurologic: Denies headache(s), paresthesias or weakness Endocrine Endocrinology: Denies polydipsia or polyuria Hematologic/Lymphatic Hematologic/Lymphatic: Reports easy bleeding and easy bruising Allergic/Immunologic Allergic/Immunologic ED: Denies urticaria EXAM Physical Exam Const Vital Signs: 10/23/21 03:36 10/23/21 03:44 10/23/21 03:51 Temperature 97.1 F L Temperature Source Temporal Pulse Rate 70 Respiratory Rate 20 H Respiratory Pattern Normal Blood Pressure 169/101 H Blood Pressure Mean 123 Pulse Ox 98 99 Oxygen Delivery Method Room Air Room Air 10/23/21 04:38 Temperature Temperature Source Pulse Rate 70 Respiratory Rate 14 Respiratory Pattern Blood Pressure 157/90 H Blood Pressure Mean 112 Pulse Ox 97 Oxygen Delivery Method Room Air Positive well nourished Constitutional Narrative: Not diaphoretic. He looks comfortable. General Appearance ED: NAD; Negative for pallor HEENT atraumatic Neck supple Chest Wall inspection of chest normal and palpation of chest normal Resp normal respiratory effort and clear to auscultation bilaterally Cardio regular rate and regular rhythm Rate: other Other Details: His heart overall does sound regular. His monitor looks to be in atrial flutter with paced rhythm. Pacer is palpable in left upper chest. GI normal to inspection, nondistended, normoactive bowel sounds and soft to palpation Back/Spine no CVA tenderness Extremity normal to inspection Extremity Narrative: No symmetry or tenderness General Extremety ED: Negative for edema General Extremity: Negative for edema Neuro oriented x3 Psych mental status grossly normal Skin no rashes or lesions noted Skin Narrative: Not diaphoretic. General Skin Exam: Negative for jaundice or pallor MDM MDM MDM Narrative Medical decision making narrative: Patient CBC shows minimal elevation in the white count at 12.2. Platelets are normal. Electrolytes do show his chronic kidney disease. This is slightly worse than last visit but still within range of his baseline. This time troponin was elevated at 373. Normally his troponins run around 30. This is what he was last time on initial and recheck. With him having a worse episode of pain, history of heart disease and stents, not having had a cath for 4 to 5 years and elevated troponin I think he does need to come in. The case was discussed with Dr. Garcia. Because this patient is taking his aspirin and Eliquis as prescribed, we were not heparinizing him immediately. He currently is asymptomatic. I have hospitalist on page to discuss the case. Patient's EKG is also similar to October 02 of this year. Lab Data Labs: Laboratory Results - last 24 hr 10/23/21 10/23/21 03:52 03:52 WBC 12.2 H RBC 5.06 Hgb 14.1 Hct 43.6 MCV 86.2 MCH 27.9 MCHC 32.3 RDW Std Deviation 52.0 H RDW Coeff of [place] 16.5 H Plt Count 270 MPV 9.2 Immature Gran % (Auto) 1.600 H Neut % (Auto) 71.9 H Lymph % (Auto) 12.8 L [place] % (Auto) 9.1 Eos % (Auto) 4.0 Baso % (Auto) 0.6 Absolute Neuts (auto) 8.8 H Absolute Lymphs (auto) 1.57 Nucleated RBC % 0 Sodium 131 L Potassium 3.9 Chloride 97 L Carbon Dioxide 26.0 Anion Gap 8 BUN 42 H Creatinine 2.16 H Estim Creat Clear Calc 32.28 Est GFR (MDRD) Af Amer 39 L Est GFR (MDRD) Non-Af 32 L BUN/Creatinine Ratio 19.4 Glucose 244 H Calcium 8.7 Troponin I High Sens 373 H* EKG Initial EKG: Comments: EKG done for chest pain read by me shows paced rhythm with overall rate of 70. He looks to be in atrial flutter in the background. No acute ST elevation or depression. Nonspecific diffuse changes. QRS duration is wide and QTC is long. Discharge Plan Dx/Rx/DC Orders Clinical Impression: Non-ST elevation MS (NSTEMI), Chest pain, Elevated troponin Disposition Disposition: [facility]
--- NOTE | 2021-10-23 03:53 | RAD_ITS ---
STUDY: X-RAY CHEST REASON FOR EXAM: Male, 71 years old. chest pain TECHNIQUE: Single AP portable view of the chest. COMPARISON: None. FINDINGS: Pacemaker is seen on the left side. The lungs are clear and expanded. There is no demonstrated pleural abnormality. Normal size heart. Normal mediastinum and loco. Normal visualized pulmonary arteries. Normal visualized aortic arch and descending thoracic aorta. Normal visualized thoracic spine. Normal visualized ribs, clavicles, and shoulders. There is no demonstrated abnormality of the visualized soft tissue structures of the upper abdomen. RAD/Chest 1 View (Portable) IMPRESSION: Normal x-ray examination of the chest. Electronically Signed: Brandon Ron MD at 5:58 EDT ,
[2021-10-23 04:02] LABS: Absolute Lymphocyte Count 1.57 X10^3/uL (0.83-4.51); Absolute Neutrophil Count 8.8 X10^3/uL (2.0-7.7); Basophil# 0.07 X10^3/uL; Basophil% 0.6 % (0-1); Eosinophil# 0.49 X10^3/uL; Hematocrit 43.6 % (40-54); Hemoglobin 14.1 g/dL (13.0-16.5); Lymphocyte # 1.57 X10^3/ul (0.83-4.51); Lymphocyte % 12.8 % (19-41); Mean Corp Hgb Conc 32.3 g/dL (32-36); Mean Corpuscular Hgb 27.9 pg (27.0-32.0); Mean Corpuscular Volume 86.2 fL (80-94); Mean Platelet Vol. 9.2 fl (6.2-12.0); Monocyte# 1.11 X10^3/uL; Monocyte% 9.1 % (0-10); NRBC Flagged by Analyzer 0 % (0-5); Neutrophil # 8.79 X10^3/uL (2.7-7.7); Neutrophil % 71.9 % (47-70); Platelet Count 270 K/mm3 (150-450); RBC Distribution Width CV 16.5 % (11.6-14.6); Red Blood Count 5.06 M/mm3 (4.6-6.2); White Blood Count 12.2 K/mm3 (4.4-11.0)
[2021-10-23 04:26] LABS: Anion Gap 8 (5-15); BUN 42 mg/dL (7-18); BUN/Creat Ratio 19.4 RATIO (10-20); Calcium,Total 8.7 mg/dL (8.5-10.1); Chloride 97 mmol/L (98-107); Creatinine, Serum 2.16 mg/dL (0.70-1.30); EST Glomerular Filtration Rate 32 mL/min (>60); Est Glom Filt Rate - Afr Amer 39 mL/min (>60); Estimated Creatinine Clearance 32.28 ml/min; Glucose 244 mg/dL (74-106); Potassium 3.9 mmol/L (3.5-5.1); Sodium Level 131 mmol/L (136-145); Troponin-I HS (w/2H Reflex) 373 pg/mL (3.0-78.0)
--- NOTE | 2021-10-23 04:30 | ED.RN ---
dr mancia notified of trop results
--- NOTE | 2021-10-23 05:23 | PCM.HP.STD ---
HPI - General General Date of Admission: 10/23/21 Date of Service: 10/23/21 Chief Complaint: Chest pain HPI Narrative RYAN CUMMINS, is a 71 M with a significant history of chronic systolic heart failure; diabetes mellitus; hypertension; former smoker; CAD status post stents with last stent placed more than 1 year ago; with pacemaker and ICD who presents to the emergency department with left-sided sharp chest pain that woke him from sleep. His pain radiates to his left shoulder. His pain went away and it recurred. He took nitroglycerin x2 with improvement. En-route to the hospital patient was given nitroglycerin. Associated with his symptoms is shortness of breath; nausea; and lightheadedness. Also he felt hot. 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 Myocardial infarct Nonsustained ventricular tachycardia Obesity (BMI 30.0-34.9) 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 infarction Old inferolateral myocardial infarction Old myocardial infarction Osteoporosis Paroxysmal atrial fibrillation Right bundle branch block (RBBB) Stage 3 chronic kidney disease STEMI (ST elevation myocardial infarction) Type II diabetes mellitus Home Medications pantoprazole 40 mg tablet,delayed release 40 mg PO BID gerd 03/13/19 [History Last Taken 10/20/19] aspirin 81 mg chewable tablet 81 mg PO DAILY@0800 [facility] 10/20/19 [History Last Taken 10/20/19 08:00] insulin NPH isoph U-100 human 100 unit/mL (3 mL) subcutaneous pen 30 units (0.3 mL) subcut QHS 01/25/20 [Rx Last Taken Unknown] nitroglycerin 0.4 mg sublingual tablet 0.4 mg sublingual Q5M PRN Chest Pain #25 tabs 02/01/20 [Rx Last Taken Unknown] furosemide 40 mg tablet 40 mg PO DAILY diuretic #90 tabs 03/03/21 [Rx Last Taken Unknown] ranolazine 500 mg tablet,extended release,12 hr 500 mg PO BID #60 tabs 04/07/21 [Rx Last Taken Unknown] oxycodone 5 mg tablet 5 mg PO Q6H PRN PRN Pain 06/18/21 [History Last Taken Unknown] pravastatin 40 mg tablet 40 mg PO QHS cholesterol #90 tabs 06/30/21 [Rx Last Taken Unknown] insulin NPH isoph U-100 human 100 unit/mL (3 mL) subcutaneous pen 25 units SC BREAKFAST 08/15/21 [History Last Taken Unknown] apixaban 2.5 mg tablet (Eliquis) See Rx Instructions .Route .COMPLEX #60 tabs 08/25/21 [Rx Last Taken Unknown] metolazone 2.5 mg tablet 2.5 mg PO .2 x week This is a dose increase, pt. is OUT. #10 tabs 09/17/21 [Rx Last Taken Unknown] spironolactone 25 mg tablet 25 mg PO DAILY Pt is OUT, dose has changed. Daughter notified. #90 tabs 09/17/21 [Rx Last Taken Unknown] carvedilol 25 mg tablet 25 mg PO BID #180 tabs 09/24/21 [Rx Last Taken Unknown] isosorbide mononitrate 30 mg tablet,extended release 24 hr 30 mg PO DAILY 10/02/21 [History Last Taken Unknown] isosorbide mononitrate 30 mg tablet,extended release 24 hr 30 mg PO BID #60 tabs 10/07/21 [Rx Last Taken Unknown] Allergy/AdvReac Type Severity Reaction Status Date / Time diltiazem Allergy LOWER LEG Verified 10/23/21 03:41 SWELLING tamsulosin [From Flomax] Allergy Shortness Verified 10/23/21 03:41 of breath/muscle weakness atorvastatin calcium AdvReac MUSCLE Verified 10/23/21 03:41 [From Lipitor] WEAKNESS Family History Brother Sudden cardiac Surgical History H/O elbow surgery H/O left wrist surgery History of cardioversion (04/10/16) History of coronary artery stent placement (06/08/16) Hx of atrioventricular node ablation (02/19/20) 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 therapy defibrillator (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) (02/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) S/P right inguinal hernia repair Status post knee surgery Social History adopted: No household members: children housing: house number of children: 1 (Daughter) current occupational status: retired current occupational exposures/hazards: No pets and animals: Yes (cats) history of recent travel: No Smoking Status: Former smoker quit date: 01/03/15 pack-years: 90 how long ago did patient quit smokin years ago alcohol intake: current alcohol intake frequency: a few times a month substance use type: does not use caffeine: Yes Type: coffee Number of servings: 1 ROS ROS Narrative Pertinent positives and pertinent negatives as noted in HPI. All other systems were reviewed and are negative. Vital Signs Vital Signs Vital Signs: 10/23/21 03:36 10/23/21 03:44 10/23/21 03:51 Temperature 97.1 F L Temperature Source Temporal Pulse Rate 70 Respiratory Rate 20 H Respiratory Pattern Normal Blood Pressure 169/101 H Blood Pressure Mean 123 Pulse Ox 98 99 Oxygen Delivery Method Room Air Room Air 10/23/21 04:38 10/23/21 05:12 Temperature Temperature Source Pulse Rate 70 72 Respiratory Rate 14 21 H Respiratory Pattern Blood Pressure 157/90 H 167/92 H Blood Pressure Mean 112 117 Pulse Ox 97 99 Oxygen Delivery Method Room Air Room Air Weight Weight: 81.7 kg Body Mass Index (BMI) 26.6 Physical Exam Narrative Physical exam: General: Well-nourished, well-developed. Head: Normocephalic, atraumatic, no tenderness Eyes: Vision is grossly intact. EOMI ENT, no trauma, moist mucous membranes, no rhinorrhea Neck: Nontender, full range of motion. CVS: Regular rate and rhythm. S1-S2 present. Respiratory : clear to auscultation bilaterally, chest wall nontender, no wheezing Abdomen: Soft, nontender, nondistended, normal bowel sounds, no masses : Deferred Back: Nontender, no CVA tenderness, no midline spinal tenderness, deformities, step-offs Extremities: Nontender full range of motion, no trauma Skin: Normal color, no trauma, abrasions Neuro: Alert, oriented, cranial nerves II through XII grossly intact. Psychiatry: Normal mood. Normal affect. Not depressed. Not anxious. Results Lab / Micro Data Result Diagrams: 10/23/21 03:52 10/23/21 03:52 Labs: Laboratory Results - last 24 hr 10/23/21 03:52: WBC 12.2 H, RBC 5.06, Hgb 14.1, Hct 43.6, MCV 86.2, MCH 27.9, MCHC 32.3, RDW Std Deviation 52.0 H, RDW Coeff of [place] 16.5 H, Plt Count 270, MPV 9.2, Immature Gran % (Auto) 1.600 H, Neut % (Auto) 71.9 H, Lymph % (Auto) 12.8 L, [place] % (Auto) 9.1, Eos % (Auto) 4.0, Baso % (Auto) 0.6, Absolute Neuts (auto) 8.8 H, Absolute Lymphs (auto) 1.57, Nucleated RBC % 0 10/23/21 03:52: Sodium 131 L, Potassium 3.9, Chloride 97 L, Carbon Dioxide 26.0, Anion Gap 8, BUN 42 H, Creatinine 2.16 H, Estim Creat Clear Calc 32.28, Est GFR (MDRD) Af Amer 39 L, Est GFR (MDRD) Non-Af 32 L, BUN/Creatinine Ratio 19.4, Glucose 244 H, Calcium 8.7, Troponin I High Sens 373 H* Assessment & Plan Assessment/Plan (1) Non-ST elevation ND (NSTEMI): PLAN: Plan NSTEMI Place on a monitored bed at PCU Actual CXR image was independently visualized. I agree with radiologist impression of possible slight pulmonary vascular congestion with no confluent airspace disease. Actual EKG tracing was independently visualized. EKG tracing showed a paced rhythm with background a flutter. SL NTG 0.4 mg prn as needed for chest pain ordered Aspirin continued. We will check lipid panel. Statin: Home statin continued. Anticoagulation: On home Eliquis. Hold and start patient on heparin drip when next Eliquis would have been due to. Initial high sensitive troponin was elevated at 373. Serial cardiac enzymes ordered Cardiology consult Leukocytosis White count 12.2. Likely reactive. Trend. Chronic systolic heart failure Echocardiogram on 06/20/2021 showed estimated EF of 35 to 40%. Stable. Continue guideline directed medical therapy. Diabetes mellitus Patient with hyperglycemia on presentation Home basal insulin adjusted Monitor Accu-Cheks Correction scale insulin ordered. Hypertension Blood pressure is not within goal Carvedilol; isosorbide; Metolazone; and Lasix continued. As needed hydralazine ordered. Trend blood pressure and adjust blood pressure medications. DVT prophylaxis: Eliquis as above. Charges/Coding Visit Charges Inpatient E&M: 65096 Init Hosp L3
--- NOTE | 2021-10-23 05:55 | EKG12_ITS ---
Test Reason : CP Blood Pressure : / mmHG Vent. Rate : 070 BPM Atrial Rate : 308 BPM P-R Int : 000 ms QRS Dur : 154 ms QT Int : 466 ms P-R-T Axes : 000 153 024 degrees QTc Int : 503 ms Ventricular-paced rhythm Biventricular pacemaker detected Abnormal ECG Confirmed by MEL METZ, REINA ([id number]), publication editor ROMULO BAÑUELOS ([id number]) on 10/24/2021 8:20:18 AM Referred By: VERONICA Confirmed By:REINA LEAL MD
[2021-10-23 05:59] LABS: Reflex Troponin-HS? (from REC) Y
--- NOTE | 2021-10-23 06:20 | EKG12_ITS ---
Test Reason : cp repeat Blood Pressure : / mmHG Vent. Rate : 075 BPM Atrial Rate : 300 BPM P-R Int : 000 ms QRS Dur : 144 ms QT Int : 452 ms P-R-T Axes : -84 184 034 degrees QTc Int : 504 ms Ventricular-paced rhythm , underlying atrial flutter Biventricular pacemaker detected Abnormal ECG When compared with ECG of 23-OCT-2021 05:57, MANUAL COMPARISON REQUIRED, DATA IS UNCONFIRMED Confirmed by BELKIS METZ, JUANJOSE ([id number]), newspaper or periodical editor LISBET HAWK ([id number]) on 10/29/2021 12:56:48 PM Referred By: Confirmed By:JUANJOSE TAMAYO MD
[2021-10-23] MEDS: Insulin Lispro 100 UNIT/ML INSULN.PEN SC (06:53)
[2021-10-23 07:05] LABS: Bedside Glucose 236 mg/dL (74-106)
[2021-10-23 07:05] LABS: Troponin-I HS 353 pg/mL (3.0-78.0)
[2021-10-23 07:17] LABS: International Normalized Ratio 1.2; Prothrombin Time (Protime)PT. 14.9 SECONDS (11.7-14.9)
--- NOTE | 2021-10-23 08:33 | PCM.CONS.C ---
Assessment & Plan Assessment/Plan (1) Chest pain: PLAN: The patient presents with chest pain which appears to be atypical based upon his sharp fleeting characteristics. At the moment he appears to be resting comfortably. He did have abnormal cardiac enzymes. His ECG electronic ventricular paced rhythm. His previous noninvasive and invasive studies available for review are noted. At the moment the etiology of his chest discomfort is unclear. He is being considered for further noninvasive cardiovascular evaluation with a pharmacologic stress nuclear imaging study to further stratify his coronary physiology with respect to the need for additional cardiovascular diagnostic studies such as diagnostic cardiac catheterization, etc. versus noncardiovascular evaluation. (2) Non-ST elevation UT (NSTEMI): PLAN: The patient presents with abnormal high-sensitivity troponin I levels. It is unclear whether this represents a type I event versus potentially a type II event. At the moment he appears to be resting comfortably with no ongoing classic acute coronary artery symptoms. He is going to be considered for pharmacologic stress nuclear imaging study to further evaluate his cardiovascular status. Depending upon the study, if it is considered abnormal, he may need to be considered for further evaluation with diagnostic cardiac catheterization. Consideration will be given with respect to cardiac catheterization based upon his chronic renal insufficiency/elevated creatinine level to minimize risks of IV contrast related nephropathy. (3) Atherosclerosis of coronary artery of [place] heart without angina pectoris: QUALIFIERS: Coronary Disease-Associated Artery/Lesion type: [place] artery Qualified Code(s): I25.10 - Atherosclerotic heart disease of [place] coronary artery without angina pectoris PLAN: The history of CAD as noted. His chest discomfort appears to be somewhat atypical at this time. His cardiac enzymes are elevated. Thus far there does not appear to be another obvious explanation for them. Thus, he will proceed with noninvasive cardiovascular evaluation initially to help guide further evaluation and care. (4) History of coronary artery stent placement: PLAN: He has a history of PCI. He will continue medical management and evaluation as noted above. (5) Cardiomyopathy, ischemic: PLAN: He has a history of an ischemic mediated cardiomyopathy with diminished LV systolic function. At the moment he appears without symptoms of acute CHF/pulmonary edema. He will continue medical therapy (6) Chronic systolic CHF (congestive heart failure): PLAN: He has a history of chronic systolic mediated CHF. His CHF events appear to come under better control status post his AV node ablation and subsequent permanent paced rhythm. He will continue his noninvasive valuation. (7) Paroxysmal atrial fibrillation: PLAN: He does appear to have underlying atrial fibrillation/flutter. He is status post AV node ablation. He remains in an underlying biventricular paced rhythm. He continues with 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 therapy. (8) History of cardiac radiofrequency ablation (RFA): PLAN: He did undergo AV node ablation as noted. Again his CHF events appear to come under better control since this was performed and he had a device upgrade to a biventricular ICD device. (9) ICD (implantable cardioverter-defibrillator) in place: PLAN: He does have a biventricular ICD device. It has been interrogated and outpatient. It has been reported is functioning appropriately. (10) HLD (hyperlipidemia): PLAN: He should continue risk factor evaluation and care. (11) HTN (hypertension): PLAN: His blood pressure can be followed with adjustment of medicine as deemed appropriate. (12) Diabetes: PLAN: He continue evaluation care per internal medicine. (13) Stage 3 chronic kidney disease: QUALIFIERS: Chronic kidney disease stage 3 subtype: stage 3b (GFR 30-44) Qualified Code(s): N18.32 - Chronic kidney disease, stage 3b PLAN: He does have a chronically elevated creatinine level. This does have to be taken into consideration with respect to proceeding with IV contrast related studies to minimize the risk of IV contrast related nephropathy. Thus it appears reasonable to proceed with a noninvasive study at this time to further risk stratify his cardiovascular status to assist with ongoing evaluation care. 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 Thus this should minimize the risk of him having thromboembolic events that would lead to his symptoms and/or objective findings. If he does need further invasive evaluation and/or care his 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 therapy may need to be temporarily interrupted and he would need to be considered for bridging 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 therapy as deemed appropriate. Addt'l Comments The patient's case has been discussed and reviewed with the patient and previously with the [facility] emergency department staff. This note was generated using a voice recognition system and there may be incorrect words, spelling or punctuation that were not noted when reviewing the office note prior to saving. HPI Consult Data Date of Consult: 10/23/21 HPI Narrative HPI Narrative: RYAN CUMMINS, is a 71 year olde white male who presents cardiovascular consultation based upon concerns of an atypical chest discomfort, abnormal cardiac enzymes, superimposed upon a history of underlying CAD, PCI, ischemic mediated cardiomyopathy, chronic systolic mediated CHF, atrial fibrillation/flutter, status post AV node ablation, status post ICD placement, hyperlipidemia, hypertension, diabetes mellitus, and chronic renal insufficiency. The states he feels he is done reasonably well recently. He has not been complaining of classic angina pectoris type symptoms. He states yesterday after awakening he felt a brief sharp fleeting discomfort over his left chest area. He noticed it a second time. He did not seem to experience any acute change in his respiratory status. There was no report of nausea, emesis, or diaphoresis. He states he has not noted anything different with his heart rate. There is been no near-syncope or syncope. His ICD did not discharge. He states his daughter told him he needed to report to the emergency department for further evaluation. There he was evaluated and found to have an abnormal high-sensitivity troponin I level, and underlying electronic ventricular paced rhythm, no acute pulmonary findings, and evidence of his chronic renal insufficiency. He was placed in the PCU for further evaluation and care. He has had subsequent high-sensitivity troponin I levels which have remained elevated. He is remained in an underlying electronic ventricular paced rhythm. He has not complained of any recurrent discomfort or change in his respiratory status. He has denied any ongoing orthopnea or PND. He states he has had no significant lower extremity peripheral pitting edema. He states he remains home, takes his medications as prescribed, and avoids going out to avoid cecil the COVID-19 virus. [facility] Medical History Atherosclerosis of coronary artery of [place] heart without angina pectoris Atrial fibrillation Cardiogenic shock (06/08/16) Cardiomyopathy, ischemic Chronic systolic CHF (congestive heart failure) DDD (degenerative disc disease) Declining functional status Diabetes Esophagitis determined by endoscopy (05/06/17) Essential hypertension Former smoker Generalized weakness Hyperglycemia Hyperlipidemia Hypertensive emergency ICD (implantable cardioverter-defibrillator) in place Inability to ambulate due to multiple joints Left atrial thrombus 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 Myocardial infarct Nonsustained ventricular tachycardia Obesity (BMI 30.0-34.9) 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 infarction Old inferolateral myocardial infarction Old myocardial infarction Osteoporosis Paroxysmal atrial fibrillation Right bundle branch block (RBBB) Stage 3 chronic kidney disease STEMI (ST elevation myocardial infarction) Type II diabetes mellitus Home Medications pantoprazole 40 mg tablet,delayed release 40 mg PO BID gerd 03/13/19 [History Last Taken 10/20/19] aspirin 81 mg chewable tablet 81 mg PO DAILY@0800 [facility] 10/20/19 [History Last Taken 10/20/19 08:00] insulin NPH isoph U-100 human 100 unit/mL (3 mL) subcutaneous pen 30 units (0.3 mL) subcut QHS 01/25/20 [Rx Last Taken Unknown] nitroglycerin 0.4 mg sublingual tablet 0.4 mg sublingual Q5M PRN Chest Pain #25 tabs 02/01/20 [Rx Last Taken Unknown] furosemide 40 mg tablet 40 mg PO DAILY diuretic #90 tabs 03/03/21 [Rx Last Taken Unknown] ranolazine 500 mg tablet,extended release,12 hr 500 mg PO BID #60 tabs 04/07/21 [Rx Last Taken Unknown] oxycodone 5 mg tablet 5 mg PO Q6H PRN PRN Pain 06/18/21 [History Last Taken Unknown] pravastatin 40 mg tablet 40 mg PO QHS cholesterol #90 tabs 06/30/21 [Rx Last Taken Unknown] insulin NPH isoph U-100 human 100 unit/mL (3 mL) subcutaneous pen 25 units SC BREAKFAST 08/15/21 [History Last Taken Unknown] apixaban 2.5 mg tablet (Eliquis) See Rx Instructions .Route .COMPLEX #60 tabs 08/25/21 [Rx Last Taken Unknown] metolazone 2.5 mg tablet 2.5 mg PO .2 x week This is a dose increase, pt. is OUT. #10 tabs 09/17/21 [Rx Last Taken Unknown] spironolactone 25 mg tablet 25 mg PO DAILY Pt is OUT, dose has changed. Daughter notified. #90 tabs 09/17/21 [Rx Last Taken Unknown] carvedilol 25 mg tablet 25 mg PO BID #180 tabs 09/24/21 [Rx Last Taken Unknown] isosorbide mononitrate 30 mg tablet,extended release 24 hr 30 mg PO BID #60 tabs 10/07/21 [Rx Last Taken Unknown] Allergy/AdvReac Type Severity Reaction Status Date / Time diltiazem Allergy LOWER LEG Verified 10/23/21 03:41 SWELLING tamsulosin [From Flomax] Allergy Shortness Verified 10/23/21 03:41 of breath/muscle weakness atorvastatin calcium AdvReac MUSCLE Verified 10/23/21 03:41 [From Lipitor] WEAKNESS Family History Brother Sudden cardiac Surgical History H/O elbow surgery H/O left wrist surgery History of cardioversion (04/10/16) History of coronary artery stent placement (06/08/16) Hx of atrioventricular node ablation (02/19/20) 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 therapy defibrillator ([employer]ICAL APPLICATION CONSULTANT-D) (02/2020) S/P right inguinal hernia repair Status post knee surgery Social History adopted: No household members: children housing: house number of children: 1 (Daughter) current occupational status: retired current occupational exposures/hazards: No pets and animals: Yes (cats) history of recent travel: No Smoking Status: Former smoker quit date: 01/03/15 pack-years: 90 how long ago did patient quit smokin years ago alcohol intake: current alcohol intake frequency: a few times a month substance use type: does not use caffeine: Yes Type: coffee Number of servings: 1 ROS Constitutional Constitutional: Reports as per HPI Eyes Eyes: Reports as per HPI ENT HEENT: Reports as per HPI Cardiovascular Cardiovascular: Reports chest pain at rest and dyspnea Respiratory/Chest Respiratory/Chest: Reports dyspnea Gastrointestinal Gastrointestinal: Reports as per HPI Genitourinary Genitourinary: Reports as per HPI Musculoskeletal Musculoskeletal: Reports as per HPI Integumentary Integumentary: Reports as per HPI Neurologic Neurologic: Reports as per HPI Psychiatric Psychiatric: Reports as per HPI Physical Exam Const alert, oriented x3 and no apparent distress Orientation / Consciousness: awake HEENT normocephalic, head/scalp atraumatic and hearing grossly normal bilaterally Eyes PERRL, EOMs intact bilaterally, conjunctivae normal and no scleral icterus Neck full ROM, supple and no JVD Resp normal respiratory effort and clear to auscultation bilaterally Cardio regular rate, regular rhythm, S1 normal heart sound and S2 normal heart sound GI normal to inspection, nondistended, normoactive bowel sounds Extremity no pedal edema Skin no rashes or lesions noted Psych mental status grossly normal Risk Stratification Risk Stratification Applicable: Yes Age >/= 65: Yes >/= 3 CAD Risk Factors (HTN, HLD, DM, family hx of CAD, or current smoker): Yes Aspirin Use in the Past 7 Days: Yes Severe Angina (>/= episodes in 24 hours): No EKG ST Changes >/= 0.5mm: No Positive Cardiac Marker: Yes KATELYN Risk Stratification Score: 4 KATELYN % Risk: 20% Risk Procedure Criteria Type of Procedure Procedure Type: Elective Elective Risks - COVID COVID Risk Discussion: The surgeon/proceduralist and patient have discussed in detail the risk of exposure to and/or potential harm posed by the COVID-19 virus with having a surgery/procedure at this time versus the risk of delaying the surgery/procedure. It is not possible to know either the risk of delaying the surgery or procedure or chance of getting an infection with perfect accuracy, but a joint decision was made between the patient and the surgeon/proceduralist to proceed at this time with the scheduled surgery/procedure as indicated on the consent form. Objective Data Vital Signs: Vital Signs Temp Pulse Resp BP Pulse Ox O2 Del Method 97.7 F L 72 18 164/95 H 96 Room Air 10/23/21 06:22 10/23/21 07:00 10/23/21 06:22 10/23/21 06:22 10/23/21 06:22 10/23/21 06:22 Oxygen Delivery Method Room Air Weight: 173 lb 15.115 oz Body Mass Index (BMI) 25.7 Lab / Micro Data Result Diagrams: 10/23/21 03:52 10/23/21 03:52 Labs: Laboratory Results - last 24 hr 10/23/21 03:52: WBC 12.2 H, RBC 5.06, Hgb 14.1, Hct 43.6, MCV 86.2, MCH 27.9, MCHC 32.3, RDW Std Deviation 52.0 H, RDW Coeff of [place] 16.5 H, Plt Count 270, MPV 9.2, Immature Gran % (Auto) 1.600 H, Neut % (Auto) 71.9 H, Lymph % (Auto) 12.8 L, [place] % (Auto) 9.1, Eos % (Auto) 4.0, Baso % (Auto) 0.6, Absolute Neuts (auto) 8.8 H, Absolute Lymphs (auto) 1.57, Nucleated RBC % 0 10/23/21 03:52: Sodium 131 L, Potassium 3.9, Chloride 97 L, Carbon Dioxide 26.0, Anion Gap 8, BUN 42 H, Creatinine 2.16 H, Estim Creat Clear Calc 32.28, Est GFR (MDRD) Af Amer 39 L, Est GFR (MDRD) Non-Af 32 L, BUN/Creatinine Ratio 19.4, Glucose 244 H, Calcium 8.7, Troponin I High Sens 373 H* 10/23/21 03:52: PT 14.9, INR 1.2, APTT 33.0 10/23/21 06:18: Troponin I High Sens 353 H* 10/23/21 06:47: POC Glucose 236 H Cardiology Labs/Tests 10/23/21 03:52: WBC 12.2 H, RBC 5.06, Hgb 14.1, Hct 43.6, MCV 86.2, MCH 27.9, MCHC 32.3, Plt Count 270, MPV 9.2, Immature Gran % (Auto) 1.600 H, Neut % (Auto) 71.9 H, Lymph % (Auto) 12.8 L, [place] % (Auto) 9.1, Eos % (Auto) 4.0, Baso % (Auto) 0.6, Absolute Neuts (auto) 8.8 H, Nucleated RBC % 0 10/23/21 03:52: Sodium 131 L, Potassium 3.9, Chloride 97 L, Carbon Dioxide 26.0, Anion Gap 8, BUN 42 H, Creatinine 2.16 H, Est GFR (MDRD) Af Amer 39 L, Est GFR (MDRD) Non-Af 32 L, BUN/Creatinine Ratio 19.4, Glucose 244 H, Calcium 8.7 10/23/21 03:52: PT 14.9, INR 1.2, APTT 33.0 Rhythm: Electronic ventricular paced EKG: Electronic ventricular paced rhythm ECHO: 10-20-2019 Interpretation Summary Mildly dilated left ventricle. Parkin : Akinetic. Rest of the heart are moderately hypokinetic EF approximately 35% Moderate pulmonary hypertension. The inferior vena cava is dilated No collapse of the inferior vena cava. Mild (1+) mitral valve insufficiency. Mild to moderate (1-2+) tricuspid valve insufficiency. Echo: 06-12-2021 Interpretation Summary The estimated ejection fraction is 35-40 %. Improvement of LV systolic function from prior echo 08/2020 Improvement of MR to MIld Contrastecho/Definity used Stress Test: Stress Test Report Date: 08-15-2019 Procedure: Pharmacologic stress nuclear imaging study? Indications: Chest pain; CAD; PCI; cardiomyopathy; CHF; atrial fibrillation Consent: Per the patient Procedure: The patient underwent pharmacologic (Regadenoson) evaluation with a peak heart rate of 121 beats per minute (78 %predicted maximal heart rate) and a peak blood pressure of 170/98 mmHg. The baseline ECG demonstrated atrial fibrillation; poor R wave progression; anterior UT of indeterminate age cannot be excluded; inferior UT of indeterminate age cannot be excluded.? The peak pharmacologic ECG demonstrated no obvious ECG changes. There was a rare PVC during recovery. There was no complaint of chest discomfort during pharmacologic infusion or recovery. The examination was discontinued secondary to completion of protocol. Impression: 1.? Pharmacologic (Regadenoson) evaluation 2.? Peak pharmacologic ECG with no obvious ECG changes. 3.? There was a rare PVC during recovery. 4.? Nuclear images pending Myocardial perfusion imaging study: Technique: The patient was injected with 15.0 millicuries of technetium 99m Cardiolite and subsequently rest SPECT Cardiolite nuclear imaging was obtained in the horizontal long, vertical long, and short axis views. The patient underwent pharmacologic (Regadenoson) evaluation with a peak heart rate of 121 beats per minute (78 % percent predicted maximal heart rate) and a peak blood pressure of 170/98 mmHg. The patient was injected with 45.0 millicuries of technetium 99m Cardiolite and subsequently stress SPECT Cardiolite nuclear imaging was obtained in the horizontal long, vertical long, and short axis views.? A gated Cardiolite study at peak stress was obtained. Interpretation: Rest and stress SPECT Cardiolite nuclear imaging status post realignment, normalization, and attenuation correction demonstrate areas of diminished myocardial perfusion/tracer uptake in portions of the distal anterior, distal anteroseptal, anteroapical, septal apical, lateral apical, and inferoapical segments without significant change between rest and stress.? There is diminished end systolic thickening and brightening in the aforementioned areas.? The gated Cardiolite study demonstrates diminished myocardial thickening and inward wall motion in the aforementioned areas.? The reported LVEF is 39 %. Impression: 1.? Rest and stress SPECT Cardiolite nuclear imaging demonstrate myocardial perfusion changes appearing compatible with areas of previous myocardial injury/infarction involving portions of the distal anterior, distal anteroseptal, anteroapical, septal apical, lateral apical, and inferoapical segments with no myocardial perfusion changes considered diagnostic for associated stress-induced myocardial ischemia. 2.? The gated Cardiolite study reports an LVEF of 39 %. Cardiac Cath: 01-07-2018 CONCLUSIONS Non obstructive coronary arteries Right heart pressures - Normal The patient has normal pulmonary hemodynamics. RECOMMENDATIONS Risk factor modification Management as per referring Remote Mortgage Underwriter PFTS in 2 weeks. Restart Eliquis in 5 days. Manual sheath removal. Would not pursue PCI of distal LAD or RCA due to moderate mid LAD calcium and small caliber LAD, as well as extreme difficulty of delivering stents to RCA in 06/2016.? Pt has challenging proximal curve in RCA which required stent deployment in proximal RCA, which was intended for distal RCA at the time.? Distal RCA stenosis has improved and does not appear to require stenting at this time. CORONARY ANGIOGRAPHY DOMINANCE:? Right Dominant LEFT HEART ASSESSMENT Left Ventricular Ejection Fraction: by LV Gram 45 % Inferior Mid Hypokinesis - Mild Depressed Left Ventricular systolic function LVEDP: 7 mmHg Normal Left Ventricular End Diastolic Pressure RIGHT HEART ASSESSMENT Thermal CO: 4.74? Thermal CI: 2.26 PW: 8/8? 6 PA: 35/14? 18 RV: 32/0? 0 RA: 5/7? 1 PVR: 203? SVR: 1030 LEFT MAIN: 30 % Stenosis LEFT ANTERIOR DECENDING ARTERY: PROX LAD: Instent restenosis 10 % DISTAL LAD: Moderate calcification, 65 % Stenosis CIRCUMFLEX ARTERY: OM 1: Proximal - Instent restenosis 0 % RIGHT CORONARY ARTERY: PROX RCA: Instent restenosis 20 % MID RCA: Instent restenosis 30 % DISTAL RCA: 50 % Stenosis RT PLV: Mild luminal irregularities less than 30% RT PDA: Proximal - Mild luminal irregularities Electrophysiology study: 02-16-2020: [facility] Summary: Biventricular upgrade attempt unsuccessful. Excellent anatomy was observed for pacing. Lead could not be advanced out the higher of the 2 posterior lateral branches. The mid branch could not be entered with a guidewire despite a total of 90 minutes of fluoroscopy, multiple guidewires and inner catheters were used. Comment: Based upon [facility] discharge summary it appeared the original attempt was performed on 02-16-2020 and subsequently on 02-19-2020 and LV lead was placed. ICD: Implant date: 02-19-2020 [employer]: Model: [id number]; serial number: [id number] Radiography Diagnostic Testing: Radiology Impression Chest X-Ray 10/23/21 03:53 IMPRESSION: Normal x-ray examination of the chest. Electronically Signed: Brandon Ron MD at 5:58 EDT ,
[2021-10-23] MEDS: Spironolactone 25 MG Tablet PO (11:37)
[2021-10-23] MEDS: Carvedilol 25 MG Tablet PO (11:37)
[2021-10-23] MEDS: Pantoprazole Sodium 40 MG Tablet PO (11:37)
[2021-10-23] MEDS: Ranolazine 500 MG Tablet PO (11:37)
[2021-10-23] MEDS: Aspirin 81 MG TAB.CHEW PO (11:37)
[2021-10-23] MEDS: Isosorbide Mononitrate 30 MG Tablet PO (11:38)
[2021-10-23] MEDS: Insulin NPH Human 100 UNITS/ML PEN 18 UNITS SC (11:39)
--- NOTE | 2021-10-23 11:49 | PCM.PN.HOSP ---
Subjective Subjective Patient seen and examined. Patient lying in bed no distress noted. Objective Data Objective Data Vital Signs: Vital Signs Temp Pulse Resp BP Pulse Ox O2 Del Method 97.7 F L 70 18 150/84 H 94 Room Air 10/23/21 11:30 10/23/21 11:30 10/23/21 11:30 10/23/21 11:30 10/23/21 11:30 10/23/21 11:30 Oxygen Delivery Method Room Air Weight: 173 lb 15.115 oz Body Mass Index (BMI) 25.7 Intake & Output: Intake and Output for Last 24 Hours 10/21/21 10/22/21 10/23/21 23:59 23:59 23:59 Intake Total 120 / 120 Balance 120 / 120 Lab / Micro Data Result Diagrams: 10/23/21 03:52 10/23/21 03:52 Labs: Laboratory Results - last 24 hr 10/23/21 03:52: WBC 12.2 H, RBC 5.06, Hgb 14.1, Hct 43.6, MCV 86.2, MCH 27.9, MCHC 32.3, RDW Std Deviation 52.0 H, RDW Coeff of [place] 16.5 H, Plt Count 270, MPV 9.2, Immature Gran % (Auto) 1.600 H, Neut % (Auto) 71.9 H, Lymph % (Auto) 12.8 L, [place] % (Auto) 9.1, Eos % (Auto) 4.0, Baso % (Auto) 0.6, Absolute Neuts (auto) 8.8 H, Absolute Lymphs (auto) 1.57, Nucleated RBC % 0 10/23/21 03:52: Sodium 131 L, Potassium 3.9, Chloride 97 L, Carbon Dioxide 26.0, Anion Gap 8, BUN 42 H, Creatinine 2.16 H, Estim Creat Clear Calc 32.28, Est GFR (MDRD) Af Amer 39 L, Est GFR (MDRD) Non-Af 32 L, BUN/Creatinine Ratio 19.4, Glucose 244 H, Calcium 8.7, Troponin I High Sens 373 H* 10/23/21 03:52: PT 14.9, INR 1.2, APTT 33.0 10/23/21 06:18: Troponin I High Sens 353 H* 10/23/21 06:47: POC Glucose 236 H Radiography Diagnostic Testing: Radiology Impression Chest X-Ray 10/23/21 03:53 IMPRESSION: Normal x-ray examination of the chest. Electronically Signed: Brandon Ron MD at 5:58 EDT , Physical Exam Const alert, oriented x3 and no apparent distress HEENT head/scalp atraumatic and moist oral mucous membranes Eyes conjunctivae normal and no scleral icterus Neck no lymphadenopathy and supple Resp normal respiratory effort and clear to auscultation bilaterally Cardio regular rate, regular rhythm, S1 normal heart sound and S2 normal heart sound GI normal to inspection, nondistended, normoactive bowel sounds and soft to palpation Extremity normal to inspection, full ROM and no clubbing, cyanosis or edema Neuro oriented x3, moves all extremities, no focal motor deficits and no sensory deficits noted Psych affect normal Assessment & Plan Assessment/Plan (1) Non-ST elevation [place] (NSTEMI): PLAN: Plan Patient was admitted early this morning and will was evaluated by cardiology who plans for patient to undergo a pharmacological stress test. Patient has a history of PCI in the past and will be continued on a heparin drip today until decision is made about further invasive testing. Of note patient does have a ICD which has been interrogated out patient setting and is functioning appropriately.
[2021-10-23 12:06] LABS: Bedside Glucose 353 mg/dL (74-106)
[2021-10-23 12:07] LABS: Troponin-I HS 309 pg/mL (3.0-78.0)
--- NOTE | 2021-10-23 13:21 | STRESSREP ---
Stress Test Report Pharmacologic myocardial perfusion stress test. 71-year-old man with a history of chest pain. Stress protocol: Resting KG demonstrates atrial fibrillation with a paced ventricular response rate of 71 bpm. 0.4 mg of regadenoson was infused per usual protocol followed by Intravenous saline flush injection continuous EKG monitoring was performed. The maximum heart rate attained was 84 bpm which was 55% of max impacted heart rate the maximum workload was 1 metabolic equivalent. At rest there were no ST or T wave changes noted suggest abnormal flow reserve. At peak infusion nonspecific ST changes were noted. The maximum blood pressure was 172/86 mmHg. Myocardial perfusion protocol. 12.0 mCi of technetium 99m sestamibi was injected at rest. 0.4 mg of regadenoson was infused per usual protocol. At peak infusion 34.9 mCi of technetium 99m sestamibi was injected stress images were obtained stress and rest images were reconstructed in comparing the short axis vertical long and horizontal long axis. Gated images were also obtained. Perfusion SPECT analysis: Review of the stress images demonstrate an abnormal perfusion defect noted in the distal anterior wall and apex and inferior apical wall. The rest of the pfeiffer appear to be normally perfused. The resting images demonstrate a similar pattern. The above is suggestive of a previous distal anterior apical and inferior apical infarct. No ischemia is present. Gated SPECT analysis: The gated ejection fraction is 39%. Conclusion: Ischemic cardiomyopathy. Previous extensive distal anterior and apical infarct. No ischemia present.
--- NOTE | 2021-10-23 13:30 | DCINST_ITS ---
Discharge Instructions Diet Discharge Diet: Low fat / Low cholesterol and 1800 Calorie Control Diet Activity Discharge Activity: Return to Normal Activity Dressing / Incision Call your doctor if you observe: Shortness of breath, Swelling in the ankles, Chest pain and Increased palpitations (irregular heartbeat) Follow Up Care Test Results: Test results from this visit will be discussed in further detail at your follow- up appointment, if applicable. Discharge Plan Admission Admit Date/Time: 10/23/21 04:59 Primary Reason for Your Visit: Chest Pain Attending Provider: Radha Joshi Primary Care Provider: Jennifer Spicer Consulting Providers: Hema Garcia ; Anjel Arvizu Discharge Orders/Prescriptions Prescriptions: New Humulin N NPH Insulin KwikPen 100 unit/mL (3 mL) Insulin Pen 18 units subcut BREAKFAST Qty: 0 0RF Humulin N NPH Insulin KwikPen 100 unit/mL (3 mL) Insulin Pen 25 unit subcut QHS Qty: 0 0RF Continued pantoprazole 40 MG tablet 40 mg PO BID aspirin 81 MG tablet,chewable 81 mg PO DAILY@0800 oxycodone 5 mg tablet 5 mg PO Q6H PRN PRN (Reason: Pain) Label Comments: TAKE 1 TABLET BY MOUTH EVERY 6 HOURS for severe pain nitroglycerin 0.4 mg tablet, sublingual 0.4 mg SUBLINGUAL Q5M PRN (Reason: Chest Pain) Qty: 25 0RF Rx Instructions: Place one tab under tongue every 5 minutes x 3 doses as needed furosemide 40 mg tablet 40 mg PO DAILY Qty: 90 3RF Rx Instructions: ranolazine 500 mg tablet extended release 12 hr 500 mg PO BID Qty: 60 11RF pravastatin 40 mg tablet 40 mg PO QHS Qty: 90 3RF Eliquis 2.5 mg tablet See Rx Instructions .ROUTE .COMPLEX Qty: 60 11RF Dose Instruction: TAKE 1 TABLET BY MOUTH TWICE DAILY for blood thinner Rx Instructions: TAKE 1 TABLET BY MOUTH TWICE DAILY for blood thinner metolazone 2.5 mg tablet 2.5 mg PO .2 x week Qty: 10 11RF Rx Instructions: take on Wednesday and Wednesday. spironolactone 25 mg tablet 25 mg PO DAILY Qty: 90 3RF carvedilol 25 mg tablet 25 mg PO BID Qty: 180 3RF isosorbide mononitrate 30 mg tablet extended release 24 hr 30 mg PO BID Qty: 60 11RF Discontinued insulin NPH isoph U-100 human 100 UNITS/ML insulin pen 30 units SC QHS 0RF insulin NPH isoph U-100 human 100 UNITS/ML insulin pen 25 units SC BREAKFAST Referrals / Follow Up: Jennifer Spicer DO [Primary Care Provider] - Within 2 Weeks Disposition Disposition (needs filled in before D/C Order can be placed): Home, Self Care
--- NOTE | 2021-10-23 13:36 | PCM.DC.SUM ---
Documented by User: WALDEMAR Lilly 10/23/21 13:38 Providers Date of Admission: 10/23/21 Date of Discharge: 10/23/21 Primary Care Physician: Dr. Jennifer Spicer DO Consultations 10/23/21 06:20 Consult: Cardiology Routine Consulting Provider: Hema Garcia Reason for Consult: NSTEMI EMERGENT Consult: No MD Notified: Yes Date Notified: 10/23/21 Time Notified: 05:07 Method of Notification: md to md Reason For Visit: NSTEMI Diagnosis Discharge Diagnosis (1) Non-ST elevation PR (NSTEMI): Status: Acute Code(s): I21.4 - Non-ST elevation (NSTEMI) myocardial infarction Plan Patient was admitted early this morning and will was evaluated by cardiology who plans for patient to undergo a pharmacological stress test. Patient has a history of PCI in the past and will be continued on a heparin drip today until decision is made about further invasive testing. Of note patient does have a ICD which has been interrogated out patient setting and is functioning appropriately. Medications at Discharge Home Medications pantoprazole 40 mg tablet,delayed release 40 mg PO BID gerd 03/13/19 aspirin 81 mg chewable tablet 81 mg PO DAILY@0800 [facility] 10/20/19 nitroglycerin 0.4 mg sublingual tablet 0.4 mg sublingual Q5M PRN Chest Pain #25 tabs 02/01/20 furosemide 40 mg tablet 40 mg PO DAILY diuretic #90 tabs 03/03/21 ranolazine 500 mg tablet,extended release,12 hr 500 mg PO BID #60 tabs 04/07/21 oxycodone 5 mg tablet 5 mg PO Q6H PRN PRN Pain 06/18/21 pravastatin 40 mg tablet 40 mg PO QHS cholesterol #90 tabs 06/30/21 apixaban 2.5 mg tablet (Eliquis) See Rx Instructions .Route .COMPLEX #60 tabs 08/25/21 metolazone 2.5 mg tablet 2.5 mg PO .2 x week This is a dose increase, pt. is OUT. #10 tabs 09/17/21 spironolactone 25 mg tablet 25 mg PO DAILY Pt is OUT, dose has changed. Daughter notified. #90 tabs 09/17/21 carvedilol 25 mg tablet 25 mg PO BID #180 tabs 09/24/21 isosorbide mononitrate 30 mg tablet,extended release 24 hr 30 mg PO BID #60 tabs 10/07/21 insulin NPH isoph U-100 human 100 unit/mL (3 mL) subcutaneous pen (Humulin N NPH U-100 Insulin KwikPen) 18 units (0.18 mL) subcut BREAKFAST #0 mL 10/23/21 insulin NPH isoph U-100 human 100 unit/mL (3 mL) subcutaneous pen (Humulin N NPH U-100 Insulin KwikPen) 25 unit (0.25 mL) subcut QHS #0 mL 10/23/21 Hospital Course Operations None Procedures EKG and Stress test Summary of Care Provided Minutes Spent on Discharge: 25 Hospital Course: Patient is a 71-year-old male who originally presented to the ER with chest pain. Patient had elevated troponins which peaked at 309. Patient underwent pharmacological stress test which was negative, EF 39%. Patient will be discharged home with instructions to follow-up with his PCP. Physical Exam Const alert, oriented x3 and no apparent distress HEENT head/scalp atraumatic and moist oral mucous membranes Eyes conjunctivae normal and no scleral icterus Neck no lymphadenopathy and supple Resp normal respiratory effort and clear to auscultation bilaterally Cardio regular rate, regular rhythm, S1 normal heart sound and S2 normal heart sound GI normal to inspection, nondistended, normoactive bowel sounds and soft to palpation Extremity normal to inspection, full ROM and no clubbing, cyanosis or edema Neuro oriented x3, moves all extremities, no focal motor deficits and no sensory deficits noted Psych affect normal Weight / BMI Weight Weight: 173 lb 15.115 oz Body Mass Index (BMI) 25.7 ABG / Lab / Microbiology Data Result Diagrams: 10/23/21 03:52 10/23/21 03:52 Laboratory: Laboratory Results - last 24 hr 10/23/21 03:52: WBC 12.2 H, RBC 5.06, Hgb 14.1, Hct 43.6, MCV 86.2, MCH 27.9, MCHC 32.3, RDW Std Deviation 52.0 H, RDW Coeff of [place] 16.5 H, Plt Count 270, MPV 9.2, Immature Gran % (Auto) 1.600 H, Neut % (Auto) 71.9 H, Lymph % (Auto) 12.8 L, [place] % (Auto) 9.1, Eos % (Auto) 4.0, Baso % (Auto) 0.6, Absolute Neuts (auto) 8.8 H, Absolute Lymphs (auto) 1.57, Nucleated RBC % 0 10/23/21 03:52: Sodium 131 L, Potassium 3.9, Chloride 97 L, Carbon Dioxide 26.0, Anion Gap 8, BUN 42 H, Creatinine 2.16 H, Estim Creat Clear Calc 32.28, Est GFR (MDRD) Af Amer 39 L, Est GFR (MDRD) Non-Af 32 L, BUN/Creatinine Ratio 19.4, Glucose 244 H, Calcium 8.7, Troponin I High Sens 373 H* 10/23/21 03:52: PT 14.9, INR 1.2, APTT 33.0 10/23/21 06:18: Troponin I High Sens 353 H* 10/23/21 06:47: POC Glucose 236 H 10/23/21 11:18: Troponin I High Sens 309 H* 10/23/21 11:35: POC Glucose 353 H Radiography Diagnostic Testing: Radiology Impression Chest X-Ray 10/23/21 03:53 IMPRESSION: Normal x-ray examination of the chest. Electronically Signed: Brandon Ron MD at 5:58 EDT , D/C Instructions Discharge Diet: Low fat / Low cholesterol and 1800 Calorie Control Diet Call your doctor if you observe: Shortness of breath, Swelling in the ankles, Chest pain and Increased palpitations (irregular heartbeat) Meaningful Use Info Meaningful Use Diagnoses (Choose all that apply): None applicable Discharge Plan Admission Admit Date/Time: 10/23/21 04:59 Primary Reason for Your Visit: Chest Pain Attending Provider: Radha Joshi Primary Care Provider: Jennifer Spicer Consulting Providers: Hema Garcia ; Anjel Arvizu Discharge Orders/Prescriptions Prescriptions: New Humulin N NPH Insulin KwikPen 100 unit/mL (3 mL) Insulin Pen 18 units subcut BREAKFAST Qty: 0 0RF Humulin N NPH Insulin KwikPen 100 unit/mL (3 mL) Insulin Pen 25 unit subcut QHS Qty: 0 0RF Continued pantoprazole 40 MG tablet 40 mg PO BID aspirin 81 MG tablet,chewable 81 mg PO DAILY@0800 oxycodone 5 mg tablet 5 mg PO Q6H PRN PRN (Reason: Pain) Label Comments: TAKE 1 TABLET BY MOUTH EVERY 6 HOURS for severe pain nitroglycerin 0.4 mg tablet, sublingual 0.4 mg SUBLINGUAL Q5M PRN (Reason: Chest Pain) Qty: 25 0RF Rx Instructions: Place one tab under tongue every 5 minutes x 3 doses as needed furosemide 40 mg tablet 40 mg PO DAILY Qty: 90 3RF Rx Instructions: ranolazine 500 mg tablet extended release 12 hr 500 mg PO BID Qty: 60 11RF pravastatin 40 mg tablet 40 mg PO QHS Qty: 90 3RF Eliquis 2.5 mg tablet See Rx Instructions .ROUTE .COMPLEX Qty: 60 11RF Dose Instruction: TAKE 1 TABLET BY MOUTH TWICE DAILY for blood thinner Rx Instructions: TAKE 1 TABLET BY MOUTH TWICE DAILY for blood thinner metolazone 2.5 mg tablet 2.5 mg PO .2 x week Qty: 10 11RF Rx Instructions: take on Wednesday and Wednesday. spironolactone 25 mg tablet 25 mg PO DAILY Qty: 90 3RF carvedilol 25 mg tablet 25 mg PO BID Qty: 180 3RF isosorbide mononitrate 30 mg tablet extended release 24 hr 30 mg PO BID Qty: 60 11RF Discontinued insulin NPH isoph U-100 human 100 UNITS/ML insulin pen 30 units SC QHS 0RF insulin NPH isoph U-100 human 100 UNITS/ML insulin pen 25 units SC BREAKFAST Referrals / Follow Up: Jennifer Spicer DO [Primary Care Provider] - Within 2 Weeks Disposition Disposition (needs filled in before D/C Order can be placed): Home, Self Care Documented by User: Dr. Radha Joshi MD 10/23/21 14:19 Providers Date of Admission: 10/23/21 Reason For Visit: NSTEMI Diagnosis Discharge Diagnosis (1) Non-ST elevation PR (NSTEMI): Status: Acute Code(s): I21.4 - Non-ST elevation (NSTEMI) myocardial infarction Medications at Discharge Home Medications pantoprazole 40 mg tablet,delayed release 40 mg PO BID gerd 03/13/19 aspirin 81 mg chewable tablet 81 mg PO DAILY@0800 [facility] 10/20/19 nitroglycerin 0.4 mg sublingual tablet 0.4 mg sublingual Q5M PRN Chest Pain #25 tabs 02/01/20 furosemide 40 mg tablet 40 mg PO DAILY diuretic #90 tabs 03/03/21 ranolazine 500 mg tablet,extended release,12 hr 500 mg PO BID #60 tabs 04/07/21 oxycodone 5 mg tablet 5 mg PO Q6H PRN PRN Pain 06/18/21 pravastatin 40 mg tablet 40 mg PO QHS cholesterol #90 tabs 06/30/21 apixaban 2.5 mg tablet (Eliquis) See Rx Instructions .Route .COMPLEX #60 tabs 08/25/21 metolazone 2.5 mg tablet 2.5 mg PO .2 x week This is a dose increase, pt. is OUT. #10 tabs 09/17/21 spironolactone 25 mg tablet 25 mg PO DAILY Pt is OUT, dose has changed. Daughter notified. #90 tabs 09/17/21 carvedilol 25 mg tablet 25 mg PO BID #180 tabs 09/24/21 isosorbide mononitrate 30 mg tablet,extended release 24 hr 30 mg PO BID #60 tabs 10/07/21 insulin NPH isoph U-100 human 100 unit/mL (3 mL) subcutaneous pen (Humulin N NPH U-100 Insulin KwikPen) 18 units (0.18 mL) subcut BREAKFAST #0 mL 10/23/21 insulin NPH isoph U-100 human 100 unit/mL (3 mL) subcutaneous pen (Humulin N NPH U-100 Insulin KwikPen) 25 unit (0.25 mL) subcut QHS #0 mL 10/23/21 ABG / Lab / Microbiology Data Result Diagrams: 10/23/21 03:52 10/23/21 03:52 Discharge Plan Admission Admit Date/Time: 10/23/21 04:59 Primary Reason for Your Visit: Chest Pain Attending Provider: Radha Joshi Primary Care Provider: Jennifer Spicer Consulting Providers: Hema Garcia ; Anjel Arvizu Discharge Orders/Prescriptions Prescriptions: New Humulin N NPH Insulin KwikPen 100 unit/mL (3 mL) Insulin Pen 18 units subcut BREAKFAST Qty: 0 0RF Humulin N NPH Insulin KwikPen 100 unit/mL (3 mL) Insulin Pen 25 unit subcut QHS Qty: 0 0RF Continued pantoprazole 40 MG tablet 40 mg PO BID aspirin 81 MG tablet,chewable 81 mg PO DAILY@0800 oxycodone 5 mg tablet 5 mg PO Q6H PRN PRN (Reason: Pain) Label Comments: TAKE 1 TABLET BY MOUTH EVERY 6 HOURS for severe pain nitroglycerin 0.4 mg tablet, sublingual 0.4 mg SUBLINGUAL Q5M PRN (Reason: Chest Pain) Qty: 25 0RF Rx Instructions: Place one tab under tongue every 5 minutes x 3 doses as needed furosemide 40 mg tablet 40 mg PO DAILY Qty: 90 3RF Rx Instructions: ranolazine 500 mg tablet extended release 12 hr 500 mg PO BID Qty: 60 11RF pravastatin 40 mg tablet 40 mg PO QHS Qty: 90 3RF Eliquis 2.5 mg tablet See Rx Instructions .ROUTE .COMPLEX Qty: 60 11RF Dose Instruction: TAKE 1 TABLET BY MOUTH TWICE DAILY for blood thinner Rx Instructions: TAKE 1 TABLET BY MOUTH TWICE DAILY for blood thinner metolazone 2.5 mg tablet 2.5 mg PO .2 x week Qty: 10 11RF Rx Instructions: take on Wednesday and Wednesday. spironolactone 25 mg tablet 25 mg PO DAILY Qty: 90 3RF carvedilol 25 mg tablet 25 mg PO BID Qty: 180 3RF isosorbide mononitrate 30 mg tablet extended release 24 hr 30 mg PO BID Qty: 60 11RF Discontinued insulin NPH isoph U-100 human 100 UNITS/ML insulin pen 30 units SC QHS 0RF insulin NPH isoph U-100 human 100 UNITS/ML insulin pen 25 units SC BREAKFAST Referrals / Follow Up: Jennifer Spicer DO [Primary Care Provider] - Within 2 Weeks Disposition Disposition (needs filled in before D/C Order can be placed): Home, Self Care Charges/Coding Addendum Addendum: Patient seen by Virginia MEDEIROS under my supervision Patient is a 71-year-old male with past medical history as outlined was admitted through the ED in the early hours of 10/23/2021 with a complaint of left-sided chest pain which woke him up from sleep. It was relieved by sublingual nitroglycerin. He had a stent shortness of breath and nausea as well as lightheadedness. He was admitted and managed for chest pain rule out ACS. Troponins x 3 were negative. He had a stress test which was negative for any evidence of ischemia. Chest pain didnt recur during admission. He remained stable and was discharged home on 10/23/2021. He is to follow up with his PCP within 1-2 weeks. Patient seen and examined prior to discharge. He had no active complaints and had an uneventful night. Review of systems was otherwise negative. Labs and vitals reviewed. Home meds reviewed and reconciled. O/E: Const alert, oriented x3 and no apparent distress General Appearance: cooperative HEENT normocephalic, head/scalp atraumatic, hearing grossly normal bilaterally and moist oral mucous membranes Eyes PERRL, EOMs intact bilaterally and conjunctivae normal Neck no lymphadenopathy, supple and no JVD Resp normal respiratory effort and clear to auscultation bilaterally Cardio regular rate, regular rhythm, S1 normal heart sound, S2 normal heart sound and no murmurs GI normal to inspection, nondistended, normoactive bowel sounds and soft to palpation Extremity normal to inspection, full ROM and no clubbing, cyanosis or edema Skin no rashes or lesions noted Neuro oriented x3, CN's II-XII intact bilaterally and moves all extremities Sensorium / Orientation: awake and alert Psych affect normal Plan is for discharge home today. Rest as per Virginia MEDEIROS's note, which I have reviewed and endorsed. Total time spent on the care of the patient today: 25 mins Visit Charges OBSV E&M: 00206 Observ/hosp same date L2
--- NOTE | 2021-10-23 13:59 | PHA.DC.MR ---
Pharmacy Service has performed discharge medication reconciliation for this patient. The patient's discharge medication list was reviewed for discrepancies and discrepancies were resolved. Home Medications pantoprazole 40 mg tablet,delayed release 40 mg PO BID gerd 03/13/19 aspirin 81 mg chewable tablet 81 mg PO DAILY@0800 [facility] 10/20/19 nitroglycerin 0.4 mg sublingual tablet 0.4 mg sublingual Q5M PRN Chest Pain #25 tabs 02/01/20 furosemide 40 mg tablet 40 mg PO DAILY diuretic #90 tabs 03/03/21 ranolazine 500 mg tablet,extended release,12 hr 500 mg PO BID #60 tabs 04/07/21 oxycodone 5 mg tablet 5 mg PO Q6H PRN PRN Pain 06/18/21 pravastatin 40 mg tablet 40 mg PO QHS cholesterol #90 tabs 06/30/21 apixaban 2.5 mg tablet (Eliquis) See Rx Instructions .Route .COMPLEX #60 tabs 08/25/21 metolazone 2.5 mg tablet 2.5 mg PO .2 x week This is a dose increase, pt. is OUT. #10 tabs 09/17/21 spironolactone 25 mg tablet 25 mg PO DAILY Pt is OUT, dose has changed. Daughter notified. #90 tabs 09/17/21 carvedilol 25 mg tablet 25 mg PO BID #180 tabs 09/24/21 isosorbide mononitrate 30 mg tablet,extended release 24 hr 30 mg PO BID #60 tabs 10/07/21 insulin NPH isoph U-100 human 100 unit/mL (3 mL) subcutaneous pen (Humulin N NPH U-100 Insulin KwikPen) 18 units (0.18 mL) subcut BREAKFAST #0 mL 10/23/21 insulin NPH isoph U-100 human 100 unit/mL (3 mL) subcutaneous pen (Humulin N NPH U-100 Insulin KwikPen) 25 unit (0.25 mL) subcut QHS #0 mL 10/23/21
--- NOTE | 2021-10-23 14:57 | CASEMGMT ---
Discharge Upscale Security Officer Mala Lino Beauty Sales Advisor faxed over a home health referral to [facility]. Will follow up. Mala Nayak Discharge Upscale Security Officer
--- NOTE | 2021-10-23 15:00 | CASEMGMT ---
DEVYN HUTCHINS CHIEF MAINTENANCE SUPERVISOR CM to room to meet with patient for initial transition planning/care coordination assessment. DEVYN HUTCHINS introduced self and role at [facility]. Pt voices understanding and consents to assessment at this time. Pt resting in bed in no distress at this time. Pt is A/O at this time and answers all questions appropriately. Care providers, pharmacy, and demographics verified/updated at this time. PCP: Dr Jennifer Spicer Specialists: Dr Paul-cardiology. Pt also sees ortho surgeon in [place] but he does not remember his name. Preferred Pharmacy: [facility] in [place] Insurance: [facility] Prescription Benefit: Yes Living Will/HPOA: Has both LW and HPOA, who is his daughter, Stella LNOK: Dtr, Stella Living Arrangements: Lives w/dtr, Stella, her , and granddaughter in a 2-story home w/1 step to enter. Pt's bedroom and bathroom are on the 2nd floor where the bathroom is. Main floor has kitchen and living room. Pt states he usually stays upstairs for most of the day. Stella assists pt as needed and does home mgmt tasks, meals, and laundry. Stella sets up his medications and goes to most appts w/him. Transportation: Pt states drives self and states no transportation concerns at this time. DME: States has the following DME: cane, walker, W/C, adjustable bed, functioning glucometer w/supplies Pt states no need for further DME at this time. He denies need for medical alert button. HHC/SNF: Hx of [facility] and [facility]. Pt states he would like [facility] again. Dtr/POAStella, made aware and is agreeable. Order placed for HHC: SN, PT/OT. Pt denies need for aide. Pt voices no further discharge planning needs or concerns. PLAN: Home w/HHC and discharge plans in place. Joanna ARRINGTON RN, CM
--- NOTE | 2021-10-23 15:21 | CHAPLAIN ---
Type of Pastoral Visit __x_ Initial Visit ___ Follow-up Visit ___ On-call Visit ___ General Patient Visit ___ Spiritual Assessment ___ Family Conference ___ Bereavement ___ Rapid Response ___ Code Blue ___ Other (describe below) Pastoral Care Referral From _x__ Patient ___ Family ___ Nurse ___ Physician ___ Transportation Officer ___ Supervisor Model Making ___ Other (describe below) Sacrament/Intervention _x__ Active listening ___ Anointing ___ Mormon ___ Bereavement ___ Communion ___ Yani exploration ___ _x__ Life review _x__ Prayer ___ Reconciliation ___ Sacrament of Sick _x__ Supportive presence ___ Wedding ___ Other (describe below) Pastoral Comments patient was sitting at bedside and said he was waiting for test results and whether or not he could go home; pt explains a previous heart attack and his current situation; pt goal is to get answers and find out why he had chest pains in the middle of the night; pt talks freely and welcomes a prayer for his support
--- NOTE | 2021-10-23 15:49 | CASEMGMT ---
Discharge Multiple Drum Sander Helper Mala D/c Private Duty Aide called Deion at [facility]. Deion is going to get a hold of intake team and reach back out to Mala. Will follow up. Discharge Multiple Drum Sander Helper
--- NOTE | 2021-10-23 15:57 | CASEMGMT ---
Discharge Tosser Deion from [facility] reached out. [facility] can accept patient. Start of care will be 10/24/2021. [facility] will call family with a start time. Patient has been made aware. Plan: D/c with [facility]. Mala Nayak Discharge Tosser
== END 2021-10-23 16:50 | disposition home health service (06) | DRG 281 ==
LOC: ED 04:50 → PCU 05:47
PROVIDERS: Admitting Provider Hospitalist; Emergency Provider Emergency Medicine; PCP Family Medicine; Visit Provider Student in an Organized Health Care Education/Training Program
DX: I21.4 Non-ST elevation (NSTEMI) myocardial infarction (principal); I13.0 Hypertensive heart and chronic kidney disease with heart failure and stage 1 through stage 4 chronic kidney disease, or unspecified chronic kidney disease; I50.22 Chronic systolic (congestive) heart failure; E11.22 Type 2 diabetes mellitus with diabetic chronic kidney disease; E11.65 Type 2 diabetes mellitus with hyperglycemia; Z79.4 Long term (current) use of insulin; I48.0 Paroxysmal atrial fibrillation; N18.32 Chronic kidney disease, stage 3b; E78.5 Hyperlipidemia, unspecified; I25.10 Atherosclerotic heart disease of native coronary artery without angina pectoris; I25.5 Ischemic cardiomyopathy; I25.2 Old myocardial infarction; Z95.810 Presence of automatic (implantable) cardiac defibrillator; Z95.5 Presence of coronary angioplasty implant and graft; Z79.01 Long term (current) use of 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s; Z79.82 Long term (current) use of aspirin; Z79.899 Other long term (current) drug therapy; Z87.891 Personal history of nicotine dependence
CPT/HCPCS: 71045; 78452; 80048; 82962; 84484; 85025; 85610; 85730; 93005; 93017; 99285; A9500; A4216; J2785

== ENCOUNTER 2021-11-25 15:18 | Inpatient (IN) | payer MEDICARE, SELFPAY ==
[2016-06-12 14:02] VITALS: BMI 29.7
[2021-11-25 15:20] VITALS: BP 151/93; PULSE 70; RESP 16; TEMP 37; O2SAT 95; BMI 26.4
--- NOTE | 2021-11-25 15:32 | EDS_ITS ---
HPI History of Present Illness Chief Complaint: Lower Extremity Injury Detail of Chief Complaint: Pain and swelling to left knee Informant: patient Onset/Context/Timing Current Severity: Severe Narrative Narrative: Patient presents to the emergency department complaint pain and swelling to the left knee. Patient states that he hurt the knee 2 weeks ago when he was putting some groceries in his car and the cart started the move away so he grabbed it and fell onto the knee and he is not sure if he twisted it. Patient had some abrasions that seem to heal up okay. 2 days ago patient started having increasing pain and redness and swelling. Patient denies any new injury. He denies any fever. Patient unable to bear weight on it now secondary to the pain. Patient on Eliquis for history of A. fib. Patient had a physical therapist that came in today and noted the erythema and was concerned about infection. Patient presents from home via EMS. [facility] Medical History Atherosclerosis of coronary artery of [place] heart without angina pectoris Atrial fibrillation Cardiogenic shock (06/08/16) Cardiomyopathy, ischemic Chronic systolic CHF (congestive heart failure) DDD (degenerative disc disease) Declining functional status Diabetes Esophagitis determined by endoscopy (05/06/17) Essential hypertension Former smoker Generalized weakness Hyperglycemia Hyperlipidemia Hypertensive emergency ICD (implantable cardioverter-defibrillator) in place Inability to ambulate due to multiple joints Left atrial thrombus retirement current use of 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 Myocardial infarct Nonsustained ventricular tachycardia Obesity (BMI 30.0-34.9) 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 infarction Old inferolateral myocardial infarction Old myocardial infarction Osteoporosis Paroxysmal atrial fibrillation Right bundle branch block (RBBB) Stage 3 chronic kidney disease STEMI (ST elevation myocardial infarction) Type II diabetes mellitus Home Medications pantoprazole 40 mg tablet,delayed release 40 mg PO BID gerd 03/13/19 [History Last Taken 10/20/19] aspirin 81 mg chewable tablet 81 mg PO DAILY@0800 heart health 10/20/19 [History Last Taken 10/20/19 08:00] nitroglycerin 0.4 mg sublingual tablet 0.4 mg sublingual Q5M PRN Chest Pain #25 tabs 02/01/20 [Rx Last Taken Unknown] furosemide 40 mg tablet 40 mg PO DAILY diuretic #90 tabs 03/03/21 [Rx Last Taken Unknown] ranolazine 500 mg tablet,extended release,12 hr 500 mg PO BID #60 tabs 04/07/21 [Rx Last Taken Unknown] oxycodone 5 mg tablet 5 mg PO Q6H PRN PRN Pain 06/18/21 [History Last Taken Unknown] pravastatin 40 mg tablet 40 mg PO QHS cholesterol #90 tabs 06/30/21 [Rx Last Taken Unknown] apixaban 2.5 mg tablet (Eliquis) See Rx Instructions .Route .COMPLEX #60 tabs 08/25/21 [Rx Last Taken Unknown] carvedilol 25 mg tablet 25 mg PO BID #180 tabs 09/24/21 [Rx Last Taken Unknown] isosorbide mononitrate 30 mg tablet,extended release 24 hr 30 mg PO BID #60 tabs 10/07/21 [Rx Last Taken Unknown] insulin NPH isoph U-100 human 100 unit/mL (3 mL) subcutaneous pen (Humulin N NPH U-100 Insulin KwikPen) 30 units subcut BREAKFAST 11/25/21 [History Last Taken Unknown] insulin NPH isoph U-100 human 100 unit/mL (3 mL) subcutaneous pen (Humulin N NPH U-100 Insulin KwikPen) 40 unit subcut QHS 11/25/21 [History Last Taken Unknown] metolazone 2.5 mg tablet 2.5 mg PO .2 x week 11/25/21 [History Last Taken Unknown] spironolactone 25 mg tablet 25 mg PO DAILY 11/25/21 [History Last Taken Unknown] Allergy/AdvReac Type Severity Reaction Status Date / Time diltiazem Allergy LOWER LEG Verified 11/25/21 15:18 SWELLING tamsulosin [From Flomax] Allergy Shortness Verified 11/25/21 15:18 of breath/muscle weakness atorvastatin calcium AdvReac MUSCLE Verified 11/25/21 15:18 [From Lipitor] WEAKNESS Family History Brother Sudden cardiac Surgical History H/O elbow surgery H/O left wrist surgery History of cardioversion (04/10/16) History of coronary artery stent placement (06/08/16) Hx of atrioventricular node ablation (02/19/20) 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 therapy defibrillator (CHARGE MASTER COORDINATOR-D) (02/2020) S/P right inguinal hernia repair Status post knee surgery Social History adopted: No household members: children housing: house number of children: 1 (Daughter) current occupational status: retired current occupational exposures/hazards: No pets and animals: Yes (cats) history of recent travel: No Smoking Status: Former smoker quit date: 01/03/15 pack-years: 90 how long ago did patient quit smokin years ago alcohol intake: current alcohol intake frequency: a few times a month substance use type: does not use caffeine: Yes Type: coffee Number of servings: 1 ROS ROS ED Review of Systems ROS Unobtainable: other Constitutional Constitutional ED: Reports lethargy; Denies chills, fever(s), sweats or weight loss Eyes Eyes: Denies blurry vision, change in vision or diplopia ENT ENT ED: Denies rhinorrhea or sore throat Cardiovascular Cardiovascular: Denies chest pain, orthopnea or racing heartbeat Respiratory/Chest Respiratory/Chest: Reports dyspnea and dyspnea on exertion; Denies cough, orthopnea or sputum Gastrointestinal Gastrointestinal: Denies abdominal pain, diarrhea, nausea or vomiting Genitourinary Genitourinary ED: Denies dysuria, hematuria or urinary frequency Musculoskeletal Musculoskeletal: Reports other Details: Left knee pain, redness, and swelling ; Denies arthralgias, back pain, myalgias or neck pain Integumentary Denies abscess, Abrasions or rash Neurologic Neurologic: Denies headache(s) or weakness Psychiatric Psychiatric: Denies anxiety, depression or suicidal thoughts Endocrine Endocrinology: Denies polydipsia, polyphagia or polyuria Hematologic/Lymphatic Hematologic/Lymphatic: Denies easy bleeding, easy bruising or lymphadenopathy Allergic/Immunologic Allergic/Immunologic ED: Denies mouth swelling, tongue swelling or urticaria EXAM Physical Exam Const Vital Signs: 11/25/21 15:20 Temperature 98.6 F Temperature Source Oral Pulse Rate 70 Respiratory Rate 16 Blood Pressure 151/93 H Blood Pressure Mean 112 Pulse Ox 95 Oxygen Delivery Method Room Air Positive well nourished and well developed General Appearance ED: well developed and NAD HEENT Reports TM's clear and moist mucous membranes normocephalic and atraumatic; Negative for trauma or tenderness Tympanic Membrane ED: Yes TM's clear Eyes PERRL and EOMs intact bilaterally General Eye ED: Negative for pale conjunctiva or scleral icterus Neck no lymphadenopathy, supple and no JVD General: Negative for tenderness Chest Wall inspection of chest normal and palpation of chest normal Chest: Negative for tenderness Resp normal respiratory effort and clear to auscultation bilaterally Effort and Inspection: Negative for respiratory distress or pain with movement Auscultation: Negative for rhonchi, wheezes or diminished lung sounds Cardio regular rate, regular rhythm, S1 normal heart sound, S2 normal heart sound and no murmurs Peripheral Pulses: pulses 2+ throughout GI normal to inspection, nondistended, normoactive bowel sounds, soft to palpation, non-tender, non-distended and no masses Back/Spine no CVA tenderness and no thoracic nor lumbar tenderness Extremity Extremity Narrative: Left knee-patient has a joint effusion suprapatellar. There is faint erythema noted and cellulitic changes. Area is warm to the touch. Patient has significant pain with flexion extension of the knee. He is neurovascular intact distally. No ropes or cords palpated in the lower extremity. General Extremety ED: Negative for edema General Extremity: Negative for edema Neuro oriented x3, CN's II-XII intact bilaterally, no sensory deficits noted and gait normal Sensorium / Orientation: awake, alert, oriented to person, oriented to place and oriented to time Motor Exam: strength 5/5 throughout and strength abnormal Psych mental status grossly normal Skin no rashes or lesions noted and no wounds MDM MDM MDM Narrative Medical decision making narrative: 1 sepsis on arrival. Blood cultures were obtained. Patient had an elevated C- reactive protein as well as elevated sed rate. White count was 16.9. X-rays of the knee were obtained which were read as degenerative changes and prepatellar bursa fluid/effusion I was mild. Case discussed with orthopedic surgeon on-call as I was concerned about possible septic joint. Dr. Tsang presented to the emergency department evaluate the patient. Orthopedic surgeon performed a arthrocentesis in the fluid did show greater than 60,000 WBCs. I was asked to admit patient to medicine and consult ID. Case will be discussed with hospitalist evaluate patient for admission. I did empirically start patient on Zosyn and vancomycin. Lab Data Attestation: I reviewed the patient's lab results. Labs: Laboratory Results - last 24 hr 11/25/21 11/25/21 11/25/21 15:40 15:40 15:40 WBC 16.9 H RBC 5.60 Hgb 15.0 Hct 46.2 MCV 82.5 MCH 26.8 L MCHC 32.5 RDW Std Deviation 45.9 H RDW Coeff of [place] 15.3 H Plt Count 365 MPV 9.0 Immature Gran % (Auto) 1.600 H Neut % (Auto) 84.6 H Lymph % (Auto) 4.0 L [place] % (Auto) 8.7 Eos % (Auto) 0.7 Baso % (Auto) 0.4 Absolute Neuts (auto) 14.3 H Absolute Lymphs (auto) 0.67 L Nucleated RBC % 0 ESR 62 H Sodium 130 L Potassium 3.3 L Chloride 94 L Carbon Dioxide 26.0 Anion Gap 10 BUN 46 H Creatinine 2.26 H Estim Creat Clear Calc 30.85 Est GFR (MDRD) Af Amer 37 L Est GFR (MDRD) Non-Af 31 L BUN/Creatinine Ratio 20.4 H Glucose 137 H Uric Acid 10.5 H Calcium 8.4 L C-React Prot Ext Range 117.00 H Synovial WBC Synovial RBC Synovial Tot Cell Ct Synov Polynuclear WBCs Synov Mononuclear WBCs Synovial Polynuclear % Synovial Mononuclear % 11/25/21 17:46 WBC RBC Hgb Hct MCV MCH MCHC RDW Std Deviation RDW Coeff of [place] Plt Count MPV Immature Gran % (Auto) Neut % (Auto) Lymph % (Auto) [place] % (Auto) Eos % (Auto) Baso % (Auto) Absolute Neuts (auto) Absolute Lymphs (auto) Nucleated RBC % ESR Sodium Potassium Chloride Carbon Dioxide Anion Gap BUN Creatinine Estim Creat Clear Calc Est GFR (MDRD) Af Amer Est GFR (MDRD) Non-Af BUN/Creatinine Ratio Glucose Uric Acid Calcium C-React Prot Ext Range Synovial WBC 60.3500 H Synovial RBC 0.003 H Synovial Tot Cell Ct 60.5300 H Synov Polynuclear WBCs 59.655 Synov Mononuclear WBCs 3.084 Synovial Polynuclear % 95.0 Synovial Mononuclear % 5.0 Radiography Diagnostic Testing: Clinical Impression(s) from Imaging Studies Knee X-Ray 11/25/21 15:50 IMPRESSION: Degenerative changes. No acute fracture or dislocation Electronically Signed: Herberth Garcia MD at 16:10 EDT , 4 view x-rays of the left knee obtained interpreted by myself no acute fractures. Patient was noted to have a effusion. Radiology in agreement. Discharge Plan Dx/Rx/DC Orders Clinical Impression: Knee pain, left, Effusion of left knee, History of atrial fibrillation, Septic arthritis of knee, left Disposition Disposition: Acute Care Hospital [facility]
--- NOTE | 2021-11-25 15:50 | RAD_ITS ---
STUDY: X-RAY - RIGHT KNEE REASON FOR EXAM: Male, 71 years old. injury TECHNIQUE: 4 view(s) of the knee. COMPARISON: None. FINDINGS: Normal visualized distal femur. Normal visualized proximal tibia and fibula. Normal proximal tibiofibular articulation. Narrowed medial femorotibial compartment. Normal lateral femorotibial compartment. Normal patellofemoral articulation. Small suprapatella bursal effusion Postop change status post ACL repair. RAD/Knee 4 or More Views IMPRESSION: Degenerative changes. No acute fracture or dislocation Electronically Signed: Herberth Garcia MD at 16:10 EDT ,
[2021-11-25 16:04] LABS: Absolute Lymphocyte Count 0.67 X10^3/uL (0.83-4.51); Absolute Neutrophil Count 14.3 X10^3/uL (2.0-7.7); Basophil# 0.06 X10^3/uL; Basophil% 0.4 % (0-1); Eosinophil# 0.11 X10^3/uL; Eosinophils% 0.7 % (0-5); Hematocrit 46.2 % (40-54); Lymphocyte # 0.67 X10^3/ul (0.83-4.51); Mean Corp Hgb Conc 32.5 g/dL (32-36); Mean Corpuscular Hgb 26.8 pg (27.0-32.0); Mean Corpuscular Volume 82.5 fL (80-94); Monocyte# 1.47 X10^3/uL; Monocyte% 8.7 % (0-10); NRBC Flagged by Analyzer 0 % (0-5); Neutrophil # 14.29 X10^3/uL (2.7-7.7); Neutrophil % 84.6 % (47-70); Platelet Count 365 K/mm3 (150-450); RBC Distribution Width CV 15.3 % (11.6-14.6); RBC Distribution Width SD 45.9 fl (35.1-43.9); White Blood Count 16.9 K/mm3 (4.4-11.0)
[2021-11-25 16:05] LABS: Anion Gap 10 (5-15); BUN 46 mg/dL (7-18); BUN/Creat Ratio 20.4 RATIO (10-20); Calcium,Total 8.4 mg/dL (8.5-10.1); Chloride 94 mmol/L (98-107); Creatinine, Serum 2.26 mg/dL (0.70-1.30); EST Glomerular Filtration Rate 31 mL/min (>60); Est Glom Filt Rate - Afr Amer 37 mL/min (>60); Estimated Creatinine Clearance 30.85 ml/min; Glucose 137 mg/dL (74-106); Potassium 3.3 mmol/L (3.5-5.1); Sodium Level 130 mmol/L (136-145)
[2021-11-25 16:09] LABS: Erythrocyte Sedimentation Rate 62 mm/hr (0-20)
[2021-11-25 17:50] LABS: Pathologist Comment May follow
--- NOTE | 2021-11-25 17:50 | CON.PCM_ITS ---
Assessment & Plan Assessment/Plan (1) Knee effusion, left: PLAN: Patient has an acute knee effusion after an injury 4 days ago clinical s tory is likely consistent with aggravation of arthritis as x-ray does show moderate medial joint space narrowing and spurring in the patellofemoral compartment with history of ACL reconstruction. Although he does have a elevated white blood cell count this does appear to be chronic although slightly higher today. with his multiple medical comorbidities specifically chronic kidney disease stage III I am also suspecting gout. We did aspirate 70 cc of very cloudy yellow fluid this was sent for stat synovial fluid analysis including Gram stain culture cell count protein glucose and crystal analysis we will also check a uric acid level. Depending on aspiration results will guide treatment here. Nursing notified to reach me once synovial cell count is posted. HPI Consult Data Date of Consult: 11/25/21 HPI Narrative HPI Narrative: RYAN CUMMINS, is a 71 M who presents to the emergency department for left knee effusion pain. Patient has multiple medical comorbidities including chronic kidney disease right bundle branch block diabetes implanted cardiac device hypertension hyperlipidemia cardiomyopathy. Patient has had a prior left knee ACL reconstruction greater than [address] Haynes. Patient states he fell in a parking lot 4 days ago and landed hard onto the front of his knee sustaining small abrasions. Then the day later he began developing increased pain and swelling in the knee which has subsequently brought him to the emergency room he denies any fevers although he says he may have had some chills yesterday and today intermittently. he denies any previous infections in the knee he states he does have arthritis he has hypertrophic joints of his fingers although he denies history of gout. [facility] Medical History Atherosclerosis of coronary artery of [place] heart without angina pectoris Atrial fibrillation Cardiogenic shock (06/08/16) Cardiomyopathy, ischemic Chronic systolic CHF (congestive heart failure) DDD (degenerative disc disease) Declining functional status Diabetes Esophagitis determined by endoscopy (05/06/17) Essential hypertension Former smoker Generalized weakness Hyperglycemia Hyperlipidemia Hypertensive emergency ICD (implantable cardioverter-defibrillator) in place Inability to ambulate due to multiple joints Left atrial thrombus intermediate current use of 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 Myocardial infarct Nonsustained ventricular tachycardia Obesity (BMI 30.0-34.9) 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 infarction Old inferolateral myocardial infarction Old myocardial infarction Osteoporosis Paroxysmal atrial fibrillation Right bundle branch block (RBBB) Stage 3 chronic kidney disease STEMI (ST elevation myocardial infarction) Type II diabetes mellitus Home Medications pantoprazole 40 mg tablet,delayed release 40 mg PO BID gerd 03/13/19 [History Last Taken 10/20/19] aspirin 81 mg chewable tablet 81 mg PO DAILY@0800 [facility] 10/20/19 [History Last Taken 10/20/19 08:00] nitroglycerin 0.4 mg sublingual tablet 0.4 mg sublingual Q5M PRN Chest Pain #25 tabs 02/01/20 [Rx Last Taken Unknown] furosemide 40 mg tablet 40 mg PO DAILY diuretic #90 tabs 03/03/21 [Rx Last Taken Unknown] ranolazine 500 mg tablet,extended release,12 hr 500 mg PO BID #60 tabs 04/07/21 [Rx Last Taken Unknown] oxycodone 5 mg tablet 5 mg PO Q6H PRN PRN Pain 06/18/21 [History Last Taken Unknown] pravastatin 40 mg tablet 40 mg PO QHS cholesterol #90 tabs 06/30/21 [Rx Last Taken Unknown] apixaban 2.5 mg tablet (Eliquis) See Rx Instructions .Route .COMPLEX #60 tabs 08/25/21 [Rx Last Taken Unknown] metolazone 2.5 mg tablet 2.5 mg PO .2 x week This is a dose increase, pt. is OUT. #10 tabs 09/17/21 [Rx Last Taken Unknown] spironolactone 25 mg tablet 25 mg PO DAILY Pt is OUT, dose has changed. Daughter notified. #90 tabs 09/17/21 [Rx Last Taken Unknown] carvedilol 25 mg tablet 25 mg PO BID #180 tabs 09/24/21 [Rx Last Taken Unknown] isosorbide mononitrate 30 mg tablet,extended release 24 hr 30 mg PO BID #60 tabs 10/07/21 [Rx Last Taken Unknown] insulin NPH isoph U-100 human 100 unit/mL (3 mL) subcutaneous pen (Humulin N NPH U-100 Insulin KwikPen) 18 units (0.18 mL) subcut BREAKFAST #0 mL 10/23/21 [Rx Last Taken Unknown] insulin NPH isoph U-100 human 100 unit/mL (3 mL) subcutaneous pen (Humulin N NPH U-100 Insulin KwikPen) 25 unit (0.25 mL) subcut QHS #0 mL 10/23/21 [Rx Last Taken Unknown] Allergy/AdvReac Type Severity Reaction Status Date / Time diltiazem Allergy LOWER LEG Verified 11/25/21 15:18 SWELLING tamsulosin [From Flomax] Allergy Shortness Verified 11/25/21 15:18 of breath/muscle weakness atorvastatin calcium AdvReac MUSCLE Verified 11/25/21 15:18 [From Lipitor] WEAKNESS Family History Brother Sudden cardiac Surgical History H/O elbow surgery H/O left wrist surgery History of cardioversion (04/10/16) History of coronary artery stent placement (06/08/16) Hx of atrioventricular node ablation (02/19/20) 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 therapy defibrillator (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 BUILDER-D) (02/2020) S/P right inguinal hernia repair Status post knee surgery Social History adopted: No household members: children housing: house number of children: 1 (Daughter) current occupational status: retired current occupational exposures/hazards: No pets and animals: Yes (cats) history of recent travel: No Smoking Status: Former smoker quit date: 01/03/15 pack-years: 90 how long ago did patient quit smokin years ago alcohol intake: current alcohol intake frequency: a few times a month substance use type: does not use caffeine: Yes Type: coffee Number of servings: 1 Physical Exam Narrative Left knee aspiration under sterile technique using alcohol and Betadine as preparation using 18-gauge inch and half needle from the superior lateral portal 70 cc of very cloudy yellow fluid was aspirated. Patient tolerated well verbal consent was obtained Nawaf wrap was applied. Const alert, oriented x3 and no apparent distress Extremity Extremity Narrative: Left knee has a greenish tent from the salve that he used on his knee there is very minimal low intensity erythema superior lateral patella there is superficial abrasions that are healing over without sign of infection there is a joint effusion grade 3 he is hypersensitive to light touch throughout the knee he can straighten to 10 degrees of full flexion to about 30 degrees of flexion this does cause him pain examination is limited secondary to hypersensitivity no sign of DVT no Homans. Lab / Micro Data Result Diagrams: 11/25/21 15:40 11/25/21 15:40 Labs: Laboratory Results - last 24 hr 11/25/21 15:40: WBC 16.9 H, RBC 5.60, Hgb 15.0, Hct 46.2, MCV 82.5, MCH 26.8 L, MCHC 32.5, RDW Std Deviation 45.9 H, RDW Coeff of [place] 15.3 H, Plt Count 365, MPV 9.0, Immature Gran % (Auto) 1.600 H, Neut % (Auto) 84.6 H, Lymph % (Auto) 4.0 L, [place] % (Auto) 8.7, Eos % (Auto) 0.7, Baso % (Auto) 0.4, Absolute Neuts (auto) 14.3 H, Absolute Lymphs (auto) 0.67 L, Nucleated RBC % 0, ESR 62 H 11/25/21 15:40: Sodium 130 L, Potassium 3.3 L, Chloride 94 L, Carbon Dioxide 26.0, Anion Gap 10, BUN 46 H, Creatinine 2.26 H, Estim Creat Clear Calc 30.85, Est GFR (MDRD) Af Amer 37 L, Est GFR (MDRD) Non-Af 31 L, BUN/Creatinine Ratio 20.4 H, Glucose 137 H, Calcium 8.4 L, C-React Prot Ext Range 117.00 H Radiology Impression Knee X-Ray 11/25/21 15:50 IMPRESSION: Degenerative changes. No acute fracture or dislocation Electronically Signed: Herberth Garcia MD at 16:10 EDT ,
--- NOTE | 2021-11-25 17:52 | ED.RN ---
called lab to inform that Dr. Koenig would like his orders completed stat and not routine.
[2021-11-25 18:24] LABS: Synovial Fld Mononuclear WBC # 3.084 10^3/ul
[2021-11-25 18:28] LABS: Uric Acid 10.5 mg/dL (3.5-7.2)
[2021-11-25 18:47] LABS: RBC /Synovial Fluid 0.003 10^6/uL (0)
--- NOTE | 2021-11-25 19:22 | PCM.HP.STD ---
HPI - General General Date of Admission: 11/25/21 Date of Service: 11/25/21 Chief Complaint: Injury 2-3 weeks prior, L knee pain, swelling. HPI Narrative The patient is a 71 y/o M w/ PMHx: Former tobacco use, Chronic hyponatremia (128-134 baseline), CAD s/p PCI w/ Hx STEMI, Ischemic cardiomyopathy, Chronic Systolic CHF s/p AICD placement, Hx NSVT, HTN, HLD, Hx L atrial thrombus, PAF, CKD stage IV, Diabetes mellitus type II who presents to the [facility] ED on 11/25/21 with history of fall onto his L knees 2 weeks ago while in the parking lot attempting to catch a cart rolling way towards a car, unfortunately he bruised and scraped his knee at that time with eventual onset over the last several days, more so over the last 48 hours progressively worse swelling, redness, pain progressively worsening over the last 2 days with decreased mobility prompting ED evaluation. He denies any specific associated fevers or chills. He denies any drainage from any of the scrapes. He currently reports the discomfort especially with any movement attempts 5-6 out of 10 in severity, aching, dull, throbbing but does have occasional shooting pain with usage attempt. Work-up in the ED included T98.2, heart rate 67, BP 170/71, respiratory rate 18, 96% on room air, CBC with WBC 16.9, hemoglobin 15, platelet 365 with left shift and lymphopenia, ESR 62, CRP 117, sodium 130, potassium 3.3, chloride 94, BUN/creatinine 46/2.26, glucose 137, synovial fluid pending per orthopedic surgery, blood culture x2 pending per ED, aspirate fluid pending culture, plain film of the knee with no acute evidence of fracture or dislocation. In the ED patient had aspiration by Orthopedic surgery. In the ED patient ministered vancomycin and Zosyn. 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 Myocardial infarct Nonsustained ventricular tachycardia Obesity (BMI 30.0-34.9) 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 infarction Old inferolateral myocardial infarction Old myocardial infarction Osteoporosis Paroxysmal atrial fibrillation Right bundle branch block (RBBB) Stage 3 chronic kidney disease STEMI (ST elevation myocardial infarction) Type II diabetes mellitus Home Medications pantoprazole 40 mg tablet,delayed release 40 mg PO BID gerd 03/13/19 [History Last Taken 11/25/21] aspirin 81 mg chewable tablet 81 mg PO DAILY@0800 [facility] 10/20/19 [History Last Taken 11/25/21] nitroglycerin 0.4 mg sublingual tablet 0.4 mg sublingual Q5M PRN Chest Pain #25 tabs 02/01/20 [Rx Last Taken 1 Month Ago ~10/25/21] furosemide 40 mg tablet 40 mg PO DAILY diuretic #90 tabs 03/03/21 [Rx Last Taken 11/25/21] ranolazine 500 mg tablet,extended release,12 hr 500 mg PO BID #60 tabs 04/07/21 [Rx Last Taken 11/25/21] oxycodone 5 mg tablet 5 mg PO Q6H PRN PRN Pain 06/18/21 [History Last Taken 11/24/21] pravastatin 40 mg tablet 40 mg PO QHS cholesterol #90 tabs 06/30/21 [Rx Last Taken 11/24/21] carvedilol 25 mg tablet 25 mg PO BID #180 tabs 09/24/21 [Rx Last Taken 11/25/21] apixaban 2.5 mg tablet (Eliquis) 2.5 mg PO BID blood thinner 11/25/21 [History Last Taken 11/25/21] glipizide 5 mg tablet, extended release 24 hr 5 mg PO DAILY dm 11/25/21 [History Last Taken 11/25/21] insulin NPH isoph U-100 human 100 unit/mL (3 mL) subcutaneous pen (Humulin N NPH U-100 Insulin KwikPen) 30 units subcut BREAKFAST 11/25/21 [History Last Taken 11/25/21] insulin NPH isoph U-100 human 100 unit/mL (3 mL) subcutaneous pen (Humulin N NPH U-100 Insulin KwikPen) 40 unit subcut QHS 11/25/21 [History Last Taken 11/24/21] isosorbide mononitrate 30 mg tablet,extended release 24 hr 30 mg PO BID heart 11/25/21 [History Last Taken 11/25/21] metolazone 2.5 mg tablet 2.5 mg PO TUFR 11/25/21 [History Last Taken 11/25/21] spironolactone 50 mg tablet (Aldactone) 25 mg PO DAILY fluid 11/25/21 [History Last Taken Unknown] Allergy/AdvReac Type Severity Reaction Status Date / Time diltiazem Allergy LOWER LEG Verified 11/25/21 15:18 SWELLING tamsulosin [From Flomax] Allergy Shortness Verified 11/25/21 15:18 of breath/muscle weakness atorvastatin calcium AdvReac MUSCLE Verified 11/25/21 15:18 [From Lipitor] WEAKNESS Family History (Updated 11/25/21 @ 21:[address] 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) S/P right inguinal hernia repair Status post knee surgery Social History adopted: No household members: children housing: house number of children: 1 (Daughter) current occupational status: retired current occupational exposures/hazards: No pets and animals: Yes (cats) history of recent travel: No Smoking Status: Former smoker quit date: 01/03/15 pack-years: 90 how long ago did patient quit smokin years ago alcohol intake: current alcohol intake frequency: a few times a month substance use type: does not use caffeine: Yes Type: coffee Number of servings: 1 ROS ROS Narrative Admission Review of Systems: CONSTITUTIONAL: No weight loss, fever, chills, + weakness or fatigue. HEENT: Eyes: No visual loss, blurred vision, double vision or yellow sclerae. Ears, Nose, Throat: No hearing loss, sneezing, congestion, runny nose or sore throat. SKIN: + L knee abrasions, redness, edema, pain. CARDIOVASCULAR: No chest pain, chest pressure or chest discomfort, palpitations, edema, orthopnea, syncopal events. RESPIRATORY: No shortness of breath, cough or sputum, wheezing, hemoptysis. GASTROINTESTINAL: No anorexia, nausea, vomiting or diarrhea, abdominal pain, melena, BRBPR. GENITOURINARY: No dysuria, frequency, urgency or retention. NEUROLOGICAL: No headache, dizziness, syncope, paralysis, ataxia, numbness or tingling in the extremities, focal weakness, change in bowel or bladder control, seizure. MUSCULOSKELETAL: + muscle, back pain, joint pain or stiffness. HEMATOLOGIC: + anemia, bleeding or bruising. LYMPHATICS: No enlarged nodes. No history of splenectomy. PSYCHIATRIC: + history of depression or anxiety. ENDOCRINOLOGIC: No reports of sweating, cold or heat intolerance. No polyuria or polydipsia. ALLERGIES: No history of asthma, hives, eczema or rhinitis. Vital Signs Vital Signs Vital Signs: 11/25/21 15:20 Temperature 98.6 F Temperature Source Oral Pulse Rate 70 Respiratory Rate 16 Blood Pressure 151/93 H Blood Pressure Mean 112 Pulse Ox 95 Oxygen Delivery Method Room Air Weight Weight: 179 lb 7.3 oz Body Mass Index (BMI) 26.4 Physical Exam Narrative Physical Examination: General: Awake, alert, oriented x 3 and cooperative, seated upright in the ED bed, fatigued but notes currently pain controlled. Skin: Normal color, normal turgor, no icterus, no cyanosis except left knee staged abrasion in the superior lateral patellar region, superficial abrasions, notable joint effusion, tender to palpation, mildly erythematous and warm to touch. HEENT: AT/NC, EOMI, PERRLA, MMM, no carotid bruits or JVD noted. Lungs: Diminished, greater bases, appropriate effort, no rales, ronchi or wheezing. Heart: Irregular, rate controlled; no gallop, rub audible. Abdomen: Soft, NTTP, ND, distant normal BS, no HSM. Extremities: No cyanosis, no clubbing, see skin. Neurological: Patient awake, alert, oriented as noted, cognitive function intact; pupils equally reactive to light and accommodation, cranial nerves II-XII grossly normal, moving all 4 extremities however extremely limited left lower extremity given acute presentation as noted, no focal deficits, strength moderately global decreased Psychiatric: Affect appears fatigued otherwise normal, no acute evidence of depressive or anxiety feelings. Results Lab / Micro Data Result Diagrams: 11/25/21 15:40 11/25/21 15:40 Labs: Laboratory Results - last 24 hr 11/25/21 15:40: WBC 16.9 H, RBC 5.60, Hgb 15.0, Hct 46.2, MCV 82.5, MCH 26.8 L, MCHC 32.5, RDW Std Deviation 45.9 H, RDW Coeff of [place] 15.3 H, Plt Count 365, MPV 9.0, Immature Gran % (Auto) 1.600 H, Neut % (Auto) 84.6 H, Lymph % (Auto) 4.0 L, [place] % (Auto) 8.7, Eos % (Auto) 0.7, Baso % (Auto) 0.4, Absolute Neuts (auto) 14.3 H, Absolute Lymphs (auto) 0.67 L, Nucleated RBC % 0, ESR 62 H 11/25/21 15:40: Sodium 130 L, Potassium 3.3 L, Chloride 94 L, Carbon Dioxide 26.0, Anion Gap 10, BUN 46 H, Creatinine 2.26 H, Estim Creat Clear Calc 30.85, Est GFR (MDRD) Af Amer 37 L, Est GFR (MDRD) Non-Af 31 L, BUN/Creatinine Ratio 20.4 H, Glucose 137 H, Calcium 8.4 L, C-React Prot Ext Range 117.00 H 11/25/21 15:40: Uric Acid 10.5 H 11/25/21 17:46: Synovial WBC 60.3500 H, Synovial RBC 0.003 H, Synovial Tot Cell Ct 60.5300 H, Synov Polynuclear WBCs 59.655, Synov Mononuclear WBCs 3.084, Synovial Polynuclear % 95.0, Synovial Mononuclear % 5.0 Radiology Impression Knee X-Ray 11/25/21 15:50 IMPRESSION: Degenerative changes. No acute fracture or dislocation Electronically Signed: Herberth Garcia MD at 16:10 EDT , Assessment & Plan Assessment/Plan (1) Septic arthritis of knee, left: PLAN: Plan The patient is a 71 y/o M w/ PMHx: Former tobacco use, Chronic hyponatremia (128-134 baseline), CAD s/p PCI w/ Hx STEMI, Ischemic cardiomyopathy, Chronic Systolic CHF s/p AICD placement, Hx NSVT, HTN, HLD, Hx L atrial thrombus, PAF, CKD stage IV, Diabetes mellitus type II who presents to the [facility] ED on 11/25/21 with history of fall onto his L knee 2 weeks ago while in the parking lot attempting to catch a cart rolling way towards a car, unfortunately he bruised and scraped his knee at that time with eventual onset over the last several days, more so over the last 48 hours progressively worse swelling, redness, pain progressively worsening over the last 2 days with decreased mobility prompting ED evaluation. #1. Suspected acute left septic knee: Will admit to medical surgical floor, maintain on IV vancomycin and Zosyn pending synovial fluid cultures obtained per orthopedic surgery, will continue orthopedic surgery consulted per their request we will add ID consultation, requesting lactic acid, plan repeat CBC in AM, continue affected extremity elevation above heart when seated and in bed, monitor erythema outline with VS checks. We will continue snug [place] wrap per orthopedic surgery noted to have been placed in ED. #2. Hypokalemia: Admission K+ 3.3, magnesium level requested, supplementation given, repeat level in AM. #3.? Chronic Systolic CHF, Ischemic Cardiomyopathy: s/p AICD prior, device evaluation requested. We will continue patient aspirin, holding apixaban, continue Coreg, spironolactone, Lasix, metolazone, statin home regimen.?06/12/2021 echocardiogram with EF 35 to 40%, improvement LV function from prior echo 08/2020, improvement MR to mild with no evidence of any atrial thrombus. Judicious hydrate only given history. #4.? CAD: We will continue patient aspirin, holding apixaban, continue coreg, Ranexa, pravastatin regimen. #5.? Diabetes mellitus type II: Hold oral home regimen, continue home insulin regimen, ADA diet until NPO status, accu checks w/ ISS. #6.? Chronic Hyponatremia: Admission Na 130, baseline similar, will judiciously hydrate given CHF history and repeat CMP in AM. #7.? Chronic Kidney Disease Stage IV: Admission BUN/Cr 46/2.26, baseline renal function primarily 2.1-2.8, repeat BMP in AM. #8.? PAF: Will continue home coreg, holding home eliquis as noted. #9.? Hypertension: Continue home regimen including lasix, spironolactone, Coreg, isosorbide, metolazone, PRN hydralazine. #10.? Hyperlipidemia: Will continue home statin therapy. #11.? Hx L Atrial Thrombus: Noted remotely, most recent ECHO resolved 06/2021, holding eliquis for possible OR as noted. #12.? Suspected COPD: Patient with prolonged extensive tobacco use history, not on any chronic aerosols, will have as needed albuterol, ATC duoneb therapy may be added if needed. #13.? DVT Prophylaxis: SCDs, holding home eliquis therapy as noted. #14. CODE status: Patient PATRICK is his daughter and living will is currently in place. Discussed CODE status at length including difference between FULL code, DNR-CCA and DNR-CC status. Following discussions about the differences in these status, requested Full Code status. Advanced Care Planning Face to Face Time: 16 minutes. Charges/Coding Visit Charges Inpatient E&M: 41608 Init Hosp L3 Procedures Hospitalists Procedures: 06475 Advncd Care Plan 30 Min
[2021-11-25 19:38] LABS: AUTO B FLUID DILUENT BKGD CT WBC <0.1 RBC <0.01 (W<.1,R<.01); Appearance /Synovial Fluid Turbid (CLEAR); Color / Synovial Fluid Yellow (Pale Yellow); Monocyte /Synovial Fluid 3 %; Neutrophil 97 % (0-25); Source / Synovial Fluid KNEE; Source- Body Fluid SYNOVIAL
[2021-11-25 19:39] LABS: Body Fluid QC Type(s) BF1Q,BF2Q
[2021-11-25 19:50] VITALS: BP 170/71; PULSE 67; RESP 18; TEMP 36.8; O2SAT 96
[2021-11-25 20:11] LABS: Magnesium 1.4 mg/dL (1.6-2.6)
[2021-11-25 20:21] LABS: Lactic Acid 1.3 mmol/L (0.4-1.9)
[2021-11-25 20:55] VITALS: BMI 25.4
[2021-11-25 21:32] VITALS: BP 133/81; PULSE 75; RESP 20; TEMP 36.8; O2SAT 93
[2021-11-25 22:30] VITALS: O2SAT 94
[2021-11-25] MEDS: Carvedilol 25 MG Tablet PO (23:10)
[2021-11-25] MEDS: Potassium Chloride Oral Tablet 20 MEQ 40 MEQ PO (23:10)
[2021-11-25] MEDS: Pravastatin 40 MG Tablet PO (23:10)
[2021-11-25] MEDS: Ranolazine 500 MG Tablet PO (23:10)
[2021-11-25] MEDS: 0.9% Saline Lock 10 ML Syringe IV (23:11)
[2021-11-25] MEDS: Morphine 2 MG/ML Syringe IV (23:11)
[2021-11-25] MEDS: Pantoprazole Sodium 40 MG Tablet PO (23:11)
[2021-11-25] MEDS: Isosorbide Mononitrate 30 MG Tablet PO (23:11)
--- NOTE | 2021-11-25 23:15 | PCM.RX.CS ---
Consult Pharmacy has been consulted to manage selected antiobiotic: Vancomycin Type of Consult: New start Suspected Infection: Sepsis Prior Doses of Antibiotics Received/Current Regimen: Medications Vancomycin HCl (Vancomycin) 1,000 mg in 200 mls @ 200 mls/hr IV Q24H MARIA ISABEL Discontinued Medications Vancomycin HCl 1,250 mg/ (Sodium Chloride) 275 mls @ 167 mls/hr IV X1 ONE Stop: 11/25/21 20:43 Last Admin: 11/25/21 19:49 Dose: 167 mls/hr Labs: Sodium 130 mmol/L (136-145) L 11/25/21 15:40 Potassium 3.3 mmol/L (3.5-5.1) L 11/25/21 15:40 Chloride 94 mmol/L (98-107) L 11/25/21 15:40 Carbon Dioxide 26.0 mmol/L (21.0-32.0) 11/25/21 15:40 Anion Gap 10 (5-15) 11/25/21 15:40 BUN 46 mg/dL (7-18) H 11/25/21 15:40 Creatinine 2.26 mg/dL (0.70-1.30) H 11/25/21 15:40 Est GFR (MDRD) Af Amer 37 mL/min (>60) L 11/25/21 15:40 Est GFR (MDRD) Non-Af 31 mL/min (>60) L 11/25/21 15:40 BUN/Creatinine Ratio 20.4 RATIO (10-20) H 11/25/21 15:40 Glucose 137 mg/dL (74-106) H 11/25/21 15:40 Weight used for dosin kg Estimated Creatinine Clearance: 31 Goal Trough: 15-20 mcg/mL Pharmacy Plan for Drug Dosing: Pharmacy Service will continue to monitor and adjust dosing as required. Follow-Up Labs: Trough Vancomycin Labs to be done on [date and time ordered]: 11/27/21 @1930
[2021-11-25] MEDS: Insulin NPH Human 100 UNITS/ML PEN 40 UNITS SC (23:21)
[2021-11-25] MEDS: Insulin Lispro 100 UNIT/ML INSULN.PEN SC (23:23)
[2021-11-25] MEDS: 0.9% Normal Saline 1,000 ML 75 ML IV (23:24)
[2021-11-26 01:25] LABS: Bedside Glucose 202 mg/dL (74-106)
[2021-11-26 03:30] VITALS: BP 142/79; PULSE 72; RESP 16; TEMP 36.9; O2SAT 97
[2021-11-26 05:51] LABS: Absolute Lymphocyte Count 0.67 X10^3/uL (0.83-4.51); Absolute Neutrophil Count 11.4 X10^3/uL (2.0-7.7); Basophil# 0.08 X10^3/uL; Basophil% 0.6 % (0-1); Eosinophil# 0.04 X10^3/uL; Eosinophils% 0.3 % (0-5); Hematocrit 47.7 % (40-54); Hemoglobin 15.4 g/dL (13.0-16.5); Lymphocyte # 0.67 X10^3/ul (0.83-4.51); Lymphocyte % 4.9 % (19-41); Mean Corp Hgb Conc 32.3 g/dL (32-36); Mean Corpuscular Hgb 27.2 pg (27.0-32.0); Mean Corpuscular Volume 84.1 fL (80-94); Mean Platelet Vol. 9.3 fl (6.2-12.0); Monocyte% 10.2 % (0-10); NRBC Flagged by Analyzer 0 % (0-5); Neutrophil # 11.36 X10^3/uL (2.7-7.7); Neutrophil % 82.8 % (47-70); Platelet Count 303 K/mm3 (150-450); RBC Distribution Width CV 15.5 % (11.6-14.6); RBC Distribution Width SD 46.9 fl (35.1-43.9); Red Blood Count 5.67 M/mm3 (4.6-6.2); White Blood Count 13.7 K/mm3 (4.4-11.0)
[2021-11-26 06:53] LABS: ALB/GLOB Ratio 0.7 RATIO (0.9-2.4); AST(SGOT) 17 U/L (15-37); Alanine Aminotransfer ALT/SGPT 10 U/L (16-61); Alkaline Phosphatase 75 U/L (45-117); Anion Gap 7 (5-15); BUN 42 mg/dL (7-18); BUN/Creat Ratio 20.2 RATIO (10-20); Calcium,Total 8.9 mg/dL (8.5-10.1); Chloride 96 mmol/L (98-107); Creatinine, Serum 2.08 mg/dL (0.70-1.30); EST Glomerular Filtration Rate 34 mL/min (>60); Est Glom Filt Rate - Afr Amer 41 mL/min (>60); Estimated Creatinine Clearance 32.43 ml/min; Globulin 4.6 g/dL (2.2-4.2); Glucose 116 mg/dL (74-106); Magnesium 1.9 mg/dL (1.6-2.6); Potassium 3.6 mmol/L (3.5-5.1); Protein, Total 7.6 g/dL (6.4-8.2); Sodium Level 131 mmol/L (136-145)
--- NOTE | 2021-11-26 06:53 | PN.ORTHO_ITS ---
Subjective Subjective Patient seen and examined. Doing okay complain of pain no fevers or chills has been afebrile. Objective Data Objective Data Vital Signs: Vital Signs Temp Pulse Resp BP Pulse Ox O2 Del Method 98.5 F 72 16 142/79 H 97 Room Air 11/26/21 03:30 11/26/21 03:30 11/26/21 03:30 11/26/21 03:30 11/26/21 03:30 11/26/21 03:30 Oxygen Delivery Method Room Air Weight: 171 lb 15.369 oz Body Mass Index (BMI) 25.4 Intake & Output: Intake and Output for Last 24 Hours 11/24/21 11/25/21 11/26/21 23:59 23:59 23:59 Intake Total 375 / 375 104 / 104 Output Total 700 / 700 Balance 375 / 125 -596 / -596 Lab / Micro Data Result Diagrams: 11/26/21 04:42 11/25/21 15:40 Labs: Laboratory Results - last 24 hr 11/25/21 15:40: WBC 16.9 H, RBC 5.60, Hgb 15.0, Hct 46.2, MCV 82.5, MCH 26.8 L, MCHC 32.5, RDW Std Deviation 45.9 H, RDW Coeff of [place] 15.3 H, Plt Count 365, MPV 9.0, Immature Gran % (Auto) 1.600 H, Neut % (Auto) 84.6 H, Lymph % (Auto) 4.0 L, [place] % (Auto) 8.7, Eos % (Auto) 0.7, Baso % (Auto) 0.4, Absolute Neuts (auto) 14.3 H, Absolute Lymphs (auto) 0.67 L, Nucleated RBC % 0, ESR 62 H 11/25/21 15:40: Sodium 130 L, Potassium 3.3 L, Chloride 94 L, Carbon Dioxide 26.0, Anion Gap 10, BUN 46 H, Creatinine 2.26 H, Estim Creat Clear Calc 30.85, Est GFR (MDRD) Af Amer 37 L, Est GFR (MDRD) Non-Af 31 L, BUN/Creatinine Ratio 20.4 H, Glucose 137 H, Calcium 8.4 L, C-React Prot Ext Range 117.00 H 11/25/21 15:40: Uric Acid 10.5 H 11/25/21 17:46: Fluid Crystals SEE PATH REV, Fluid Crystal Source SYNOVIAL, Fl Crystal Path Review Will follow, Synovial Source KNEE, Synovial Color Yellow, Synovial Appearance Turbid, Synovial WBC 60.3500 H, Synovial RBC 0.003 H, Synovial Tot Cell Ct 60.5300 H, Synov Polynuclear WBCs 59.655, Synov Mononuclear WBCs 3.084, Synovial Neutrophils 97 H, Synovial Monocytes 3, Synovial Polynuclear % 95.0, Synovial Mononuclear % 5.0, Synovial Path Comment May follow 11/25/21 19:34: Magnesium 1.4 L 11/25/21 19:45: Lactic Acid 1.3 11/25/21 23:19: POC Glucose 202 H 11/26/21 04:42: WBC 13.7 H, RBC 5.67, Hgb 15.4, Hct 47.7, MCV 84.1, MCH 27.2, MCHC 32.3, RDW Std Deviation 46.9 H, RDW Coeff of [place] 15.5 H, Plt Count 303, MPV 9.3, Immature Gran % (Auto) 1.200 H, Neut % (Auto) 82.8 H, Lymph % (Auto) 4.9 L, [place] % (Auto) 10.2 H, Eos % (Auto) 0.3, Baso % (Auto) 0.6, Absolute Neuts (auto) 11.4 H, Absolute Lymphs (auto) 0.67 L, Nucleated RBC % 0 Radiography Diagnostic Testing: Radiology Impression Knee X-Ray 11/25/21 15:50 IMPRESSION: Degenerative changes. No acute fracture or dislocation Electronically Signed: Herberth Garcia MD at 16:10 EDT , Physical Exam Const alert, oriented x3 and no apparent distress Extremity Extremity Narrative: Exam unchanged from yesterday Assessment & Plan Assessment/Plan (1) Knee effusion, left: (2) Hyperuricemia: PLAN: Plan Synovial fluid analysis incompletely posted with ambiguous results. Elevated synovial WBC 60,000 with 95% polys.This could be consistent with gout versus infection. He did come in with an elevated white blood cell count however he has had elevated white blood cell count over the past year, He also had elevated ESR. His uric acid is 10.5. He has been afebrile And his lactic acid is normal. The fall 4 days ago created superficial abrasions definitely did not penetrate i nto the joint and there is no sign of infection around these abrasions. Patient has history of ACL reconstruction and moderate arthritis in his knee. Onset effusion after fall more consistent with traumatic gouty flare. Still awaiting crystal analysis As well as Gram stain culture results,As well as synovial glucose which would be expected to be very low in the case of infection. Patient started on IV antibiotics. We will follow Results And direct treatment accordingly.As he has multiple medical comorbidities surgical arthroscopic washout might not necessarily be a benign procedure for him.
[2021-11-26 07:40] LABS: Bedside Glucose 103 mg/dL (74-106)
[2021-11-26] MEDS: Furosemide 40 MG Tablet PO (08:32)
[2021-11-26] MEDS: Isosorbide Mononitrate 30 MG Tablet PO (08:32)
[2021-11-26] MEDS: Aspirin 81 MG TAB.CHEW PO (08:32)
[2021-11-26] MEDS: Pantoprazole Sodium 40 MG Tablet PO (08:32)
[2021-11-26] MEDS: Spironolactone 25 MG Tablet PO (08:32)
[2021-11-26] MEDS: Ranolazine 500 MG Tablet PO (08:32)
[2021-11-26] MEDS: Carvedilol 25 MG Tablet PO (08:32)
[2021-11-26] MEDS: Insulin NPH Human 100 UNITS/ML PEN 30 UNITS SC (08:34)
[2021-11-26] MEDS: Morphine 2 MG/ML Syringe IV (08:37)
[2021-11-26] MEDS: 0.9% Saline Lock 10 ML Syringe IV (08:38)
[2021-11-26 09:18] LABS: Pathologist Review Reviewed
[2021-11-26 10:16] VITALS: O2SAT 93
--- NOTE | 2021-11-26 10:30 | CASEMGMT ---
DEVYN HUTCHINS Face to Face with patient for initial transition planning/care coordination assessment. RN CM introduced self and role at [facility]. Patient sitting in chair, alert and oriented. Patient willing to participate in assessment and is able to answer all questions appropriately. Care providers, pharmacy, and demographics verified. Patient wishes to discharge home with resumption of HHC through [facility]. Patient states he has no further needs or concerns at this time. CM to follow for discharge planning needs that may arise. PCP: Dannielle Specialists: Beverly assembly line driver; tatyana Haynes Preferred Pharmacy: [facility] Insurance: [facility] Prescription Benefit: yes Living Will/HPOA: yes daughter Stella Moser LNOK: daughter Living Arrangements: Patient lives with daughter, CAROLEE, and granddaughter in a 2 story home. Patient states he is independent at home and able to ambulate stairs. Transportation: self, CAROLEE DME/HHC: Patient states he has cane, wheelchair, walker, grab bars, and glucometer with supplies at home. Patient has previous been to [place]. Patient states he is active with [facility]. Disposition Plan: Patient to discharge home with resumption of HHC, family support, and follow-up plans. Jeanne ARRINGTON, RN, CM
--- NOTE | 2021-11-26 11:04 | DCINST_ITS ---
Discharge Instructions Diet Discharge Diet: 1800 Calorie Control Diet Activity Discharge Activity: Return to Normal Activity Weight Bearing Status: Full weight bearing Follow Up Care Test Results: Test results from this visit will be discussed in further detail at your follow- up appointment, if applicable. Discharge Plan Admission Admit Date/Time: 11/25/21 19:29 Primary Reason for Your Visit: left knee gout Attending Provider: Grant Bond Primary Care Provider: Jennifer Spicer Consulting Providers: Anjel Tsang ; Geovany Claudio ; Luci Purvis Discharge Orders/Prescriptions Prescriptions: New doxycycline hyclate [Vibramycin] 100 mg capsule 100 mg PO BID Qty: 10 0RF prednisone 20 mg tablet 20 mg PO BID Qty: 11 0RF Rx Instructions: one twice a day for 3 days, then 1 1/2 daily for 2 days, then one daily for 2 days, then stop Continued pantoprazole 40 MG tablet 40 mg PO BID aspirin 81 MG tablet,chewable 81 mg PO DAILY@0800 oxycodone 5 mg tablet 5 mg PO Q6H PRN PRN (Reason: Pain) Label Comments: TAKE 1 TABLET BY MOUTH EVERY 6 HOURS for severe pain metolazone 2.5 mg tablet 2.5 mg PO Rx Instructions: take on Wednesday and Wednesday. Humulin N NPH Insulin KwikPen 100 unit/mL (3 mL) insulin pen 40 unit subcut QHS Humulin N NPH Insulin KwikPen 100 unit/mL (3 mL) insulin pen 30 units subcut BREAKFAST spironolactone [Aldactone] 50 mg tablet 25 mg PO DAILY Label Comments: TAKE 1/2 (ONE-HALF) OF A TABLET BY MOUTH DAILY isosorbide mononitrate 30 mg tablet extended release 24 hr 30 mg PO BID Eliquis 2.5 mg tablet 2.5 mg PO BID Rx Instructions: TAKE 1 TABLET BY MOUTH TWICE DAILY for blood thinner nitroglycerin 0.4 mg tablet, sublingual 0.4 mg SUBLINGUAL Q5M PRN (Reason: Chest Pain) Qty: 25 0RF Rx Instructions: Place one tab under tongue every 5 minutes x 3 doses as needed furosemide 40 mg tablet 40 mg PO DAILY Qty: 90 3RF Rx Instructions: ranolazine 500 mg tablet extended release 12 hr 500 mg PO BID Qty: 60 11RF pravastatin 40 mg tablet 40 mg PO QHS Qty: 90 3RF carvedilol 25 mg tablet 25 mg PO BID Qty: 180 3RF Referrals / Follow Up: Anjel Tsang DO [Med Staff - Active Staff] - Within 1 Week Jennifer Spicer DO [Primary Care Provider] - Within 2 Weeks (you will need to be placed on meds for gout prevention) Disposition Disposition (needs filled in before D/C Order can be placed): Home Health Service
[2021-11-26] MEDS: Glucerna Shake 120 ML LIQUID PO (11:13)
--- NOTE | 2021-11-26 11:32 | CASEMGMT ---
Addendum entered by Karishma Nielsen 11/26/21 12:34: Received returned call from Kristian at [facility], he confirms pt is active with SN, PT and OT and will resume care tomorrow. Pt aware. Faxed complete referral including dc instructions and summary at this time. Original Note: TC to Kristian at [facility], left message to confirm pt is active. Made aware pt would like to continue with their agency and requested returned call.
--- NOTE | 2021-11-26 11:39 | PCM.DC.SUM ---
Providers Date of Admission: 11/25/21 Date of Discharge: 11/26/21 Primary Care Physician: Dr. Jennifer Spicer, Consultations 11/25/21 21:10 Consult: Infectious Disease Routine Consulting Provider: Geovany Claudio Reason for Consult: Septic knee EMERGENT Consult: No Notified: Yes Date Notified: 11/26/21 Time Notified: 06:00 Method of Notification: Answering Service Consult: Orthopedics Routine Consulting Provider: Anjel Tsang Reason for Consult: L septic knee. EMERGENT Consult: No Notified: Yes Date Notified: 11/25/21 Time Notified: 19:30 Method of Notification: ED Physician Initiated Reason For Visit: R SEPTIC KNEE Diagnosis Discharge Diagnosis (1) Knee effusion, left: Status: Acute Code(s): M25.462 - Effusion, left knee (2) Hyperuricemia: Status: Acute Code(s): E79.0 - Hyperuricemia without signs of inflammatory arthritis and tophaceous disease Plan 1. Acute gout attack left knee #2 essential hypertension #3 hyperlipidemia #4 coronary artery disease #5 chronic systolic CHF #6 paroxysmal atrial fibrillation #7 chronic use of 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s #8 stage IIIb chronic kidney disease #9 hypokalemia #10 hypomagnesemia #11 ischemic cardiomyopathy Medications at Discharge Home Medications pantoprazole 40 mg tablet,delayed release 40 mg PO BID gerd 03/13/19 aspirin 81 mg chewable tablet 81 mg PO DAILY@0800 [facility] 10/20/19 nitroglycerin 0.4 mg sublingual tablet 0.4 mg sublingual Q5M PRN Chest Pain #25 tabs 02/01/20 furosemide 40 mg tablet 40 mg PO DAILY diuretic #90 tabs 03/03/21 ranolazine 500 mg tablet,extended release,12 hr 500 mg PO BID #60 tabs 04/07/21 oxycodone 5 mg tablet 5 mg PO Q6H PRN PRN Pain 06/18/21 pravastatin 40 mg tablet 40 mg PO QHS cholesterol #90 tabs 06/30/21 carvedilol 25 mg tablet 25 mg PO BID #180 tabs 09/24/21 apixaban 2.5 mg tablet (Eliquis) 2.5 mg PO BID blood thinner 11/25/21 insulin NPH isoph U-100 human 100 unit/mL (3 mL) subcutaneous pen (Humulin N NPH U-100 Insulin KwikPen) 30 units subcut BREAKFAST 11/25/21 insulin NPH isoph U-100 human 100 unit/mL (3 mL) subcutaneous pen (Humulin N NPH U-100 Insulin KwikPen) 40 unit subcut QHS diabetes 11/25/21 isosorbide mononitrate 30 mg tablet,extended release 24 hr 30 mg PO BID heart 11/25/21 metolazone 2.5 mg tablet 2.5 mg PO TUFR 11/25/21 spironolactone 50 mg tablet (Aldactone) 25 mg PO DAILY fluid 11/25/21 doxycycline hyclate 100 mg capsule (Vibramycin) 100 mg PO BID #10 caps 11/26/21 prednisone 20 mg tablet 20 mg PO BID #11 tabs 11/26/21 Hospital Course Operations None Procedures None Summary of Care Provided Minutes Spent on Discharge: 31 Hospital Course: This 71-year-old white male was seen in the emergency room at [facility] with chief complaint of left knee pain with swelling. Patient was unable to bear weight due to left knee pain. Labs obtained showed an elevated white blood cell count, orthopedic surgery was consulted and agreed to see the patient in the emergency room due to concerns about a septic joint. An arthrocentesis was performed on the left knee which showed fluid which was greater than 60,000 white blood cell count. Patient was admitted to the hospital placed on IV antibiotics and was seen by infectious diseases and orthopedic surgery. Orthopedic surgery felt that the patient had an acute gout attack to the left knee, they requested a few days of outpatient antibiotics to be given orally at the time of discharge and the patient be placed on prednisone for short period of time. Follow-up will be arranged in their office. On 11/26/2021, patient was seen and examined: On examination he appeared in good health and spirits. Vital signs as documented. Skin warm and dry and without overt rashes. Neck without JVD, neck was supple, trachea midline, thyroid was normal. Lungs clear bilaterally, normal air movement was noted. Heart exam notable for regular rhythm, normal sounds and absence of murmurs, rubs or gallops. Abdomen unremarkable and without evidence of organomegaly, masses, or abdominal aortic enlargement. Bowel sounds are present, abdomen is not distended. Extremities-there is generalized swelling and tenderness around the left knee, no cyanosis was noted, no clubbing was noted. Neuro: Cranial nerves II through XII are grossly intact, no focal motor deficits were noted, sensation to light touch and pinprick intact, motor exam 5/5 throughout. Psych: Patient is alert and oriented x3, he does not appear anxious or depressed, he does not appear agitated. Patient appears stable for discharge on 11/26/2021. Septic joint was ruled out. Weight / BMI Weight Weight: 78 kg Body Mass Index (BMI) 25.4 ABG / Lab / Microbiology Data Result Diagrams: 11/26/21 04:42 11/26/21 04:42 Laboratory: Laboratory Results - last 24 hr 11/25/21 15:40: WBC 16.9 H, RBC 5.60, Hgb 15.0, Hct 46.2, MCV 82.5, MCH 26.8 L, MCHC 32.5, RDW Std Deviation 45.9 H, RDW Coeff of [place] 15.3 H, Plt Count 365, MPV 9.0, Immature Gran % (Auto) 1.600 H, Neut % (Auto) 84.6 H, Lymph % (Auto) 4.0 L, [place] % (Auto) 8.7, Eos % (Auto) 0.7, Baso % (Auto) 0.4, Absolute Neuts (auto) 14.3 H, Absolute Lymphs (auto) 0.67 L, Nucleated RBC % 0, ESR 62 H 11/25/21 15:40: Sodium 130 L, Potassium 3.3 L, Chloride 94 L, Carbon Dioxide 26.0, Anion Gap 10, BUN 46 H, Creatinine 2.26 H, Estim Creat Clear Calc 30.85, Est GFR (MDRD) Af Amer 37 L, Est GFR (MDRD) Non-Af 31 L, BUN/Creatinine Ratio 20.4 H, Glucose 137 H, Calcium 8.4 L, C-React Prot Ext Range 117.00 H 11/25/21 15:40: Uric Acid 10.5 H 11/25/21 17:46: Fluid Crystals SEE PATH REV, Fluid Crystal Source SYNOVIAL, Fl Crystal Path Review Reviewed, Synovial Source KNEE, Synovial Color Yellow, Synovial Appearance Turbid, Synovial WBC 60.3500 H, Synovial RBC 0.003 H, Synovial Tot Cell Ct 60.5300 H, Synov Polynuclear WBCs 59.655, Synov Mononuclear WBCs 3.084, Synovial Neutrophils 97 H, Synovial Monocytes 3, Synovial Polynuclear % 95.0, Synovial Mononuclear % 5.0, Synovial Path Comment May follow 11/25/21 19:34: Magnesium 1.4 L 11/25/21 19:45: Lactic Acid 1.3 11/25/21 23:19: POC Glucose 202 H 11/26/21 04:42: WBC 13.7 H, RBC 5.67, Hgb 15.4, Hct 47.7, MCV 84.1, MCH 27.2, MCHC 32.3, RDW Std Deviation 46.9 H, RDW Coeff of [place] 15.5 H, Plt Count 303, MPV 9.3, Immature Gran % (Auto) 1.200 H, Neut % (Auto) 82.8 H, Lymph % (Auto) 4.9 L, [place] % (Auto) 10.2 H, Eos % (Auto) 0.3, Baso % (Auto) 0.6, Absolute Neuts (auto) 11.4 H, Absolute Lymphs (auto) 0.67 L, Nucleated RBC % 0 11/26/21 04:42: Sodium 131 L, Potassium 3.6, Chloride 96 L, Carbon Dioxide 28.0, Anion Gap 7, BUN 42 H, Creatinine 2.08 H, Estim Creat Clear Calc 32.43, Est GFR (MDRD) Af Amer 41 L, Est GFR (MDRD) Non-Af 34 L, BUN/Creatinine Ratio 20.2 H, Glucose 116 H, Calcium 8.9, Total Bilirubin 0.90, AST 17, ALT 10 L, Alkaline Phosphatase 75, Total Protein 7.6, Albumin 3.0 L, Globulin 4.6 H, Albumin/Globulin Ratio 0.7 L 11/26/21 04:42: Magnesium 1.9 11/26/21 06:44: POC Glucose 103 Microbiology: Microbiology 11/25/21 17:46 Fluid - Synovial (joint) Gram Stain - Final Radiography Diagnostic Testing: Radiology Impression Knee X-Ray 11/25/21 15:50 IMPRESSION: Degenerative changes. No acute fracture or dislocation Electronically Signed: Herberth Garcia MD at 16:10 EDT , D/C Instructions Discharge Diet: 1800 Calorie Control Diet Weight Bearing Status: Full weight bearing Meaningful Use Info Meaningful Use Diagnoses (Choose all that apply): None applicable Discharge Plan Admission Admit Date/Time: 11/25/21 19:29 Primary Reason for Your Visit: left knee gout Attending Provider: Grant Bond Primary Care Provider: Jennifer Spicer Consulting Providers: Anjel Tsang ; Geovany Claudio ; Luci Purvis Discharge Orders/Prescriptions Prescriptions: New doxycycline hyclate [Vibramycin] 100 mg capsule 100 mg PO BID Qty: 10 0RF prednisone 20 mg tablet 20 mg PO BID Qty: 11 0RF Rx Instructions: one twice a day for 3 days, then 1 1/2 daily for 2 days, then one daily for 2 days, then stop Continued pantoprazole 40 MG tablet 40 mg PO BID aspirin 81 MG tablet,chewable 81 mg PO DAILY@0800 oxycodone 5 mg tablet 5 mg PO Q6H PRN PRN (Reason: Pain) Label Comments: TAKE 1 TABLET BY MOUTH EVERY 6 HOURS for severe pain metolazone 2.5 mg tablet 2.5 mg PO Rx Instructions: take on Wednesday and Wednesday. Humulin N NPH Insulin KwikPen 100 unit/mL (3 mL) insulin pen 40 unit subcut QHS Humulin N NPH Insulin KwikPen 100 unit/mL (3 mL) insulin pen 30 units subcut BREAKFAST spironolactone [Aldactone] 50 mg tablet 25 mg PO DAILY Label Comments: TAKE 1/2 (ONE-HALF) OF A TABLET BY MOUTH DAILY isosorbide mononitrate 30 mg tablet extended release 24 hr 30 mg PO BID Eliquis 2.5 mg tablet 2.5 mg PO BID Rx Instructions: TAKE 1 TABLET BY MOUTH TWICE DAILY for blood thinner nitroglycerin 0.4 mg tablet, sublingual 0.4 mg SUBLINGUAL Q5M PRN (Reason: Chest Pain) Qty: 25 0RF Rx Instructions: Place one tab under tongue every 5 minutes x 3 doses as needed furosemide 40 mg tablet 40 mg PO DAILY Qty: 90 3RF Rx Instructions: ranolazine 500 mg tablet extended release 12 hr 500 mg PO BID Qty: 60 11RF pravastatin 40 mg tablet 40 mg PO QHS Qty: 90 3RF carvedilol 25 mg tablet 25 mg PO BID Qty: 180 3RF Referrals / Follow Up: Anjel Tsang DO [Med Staff - Active Staff] - Within 1 Week Jennifer Spicer DO [Primary Care Provider] - Within 2 Weeks (you will need to be placed on meds for gout prevention) Disposition Disposition (needs filled in before D/C Order can be placed): Home Health Service Charges/Coding Visit Charges Inpatient E&M: 73001 Disch Hosp
[2021-11-26 12:06] LABS: Bedside Glucose 110 mg/dL (74-106)
--- NOTE | 2021-11-26 13:10 | CON.PCM.ID_ITS ---
Assessment & Plan Assessment/Plan (1) Stage 3 chronic kidney disease: QUALIFIERS: Chronic kidney disease stage 3 subtype: stage 3b (GFR 30-44) Qualified Code(s): N18.32 - Chronic kidney disease, stage 3b (2) Knee effusion, left: PLAN: L knee gout - fluid cx pending, gram stain neg for any organisms. Crystals seen. Uric acid high. Seen by ortho. Ok for d/c home off of abx. Will follow as needed, thank you, d/w primary team (3) Hyperuricemia: HPI Consult Data Date of Consult: 11/26/21 HPI Narrative Reason for Consultation: septic arthritis HPI Narrative: RYAN CUMMINS, is a 71 M who presented 11/25 with 3 days of progressive L knee pain, swelling, warmth. Had a fall about 2-3 weeks ago, but no cellulitis or recent abx. No recent travel or diet changes. No fever, no drainage. Knee pain was moderate, came to ED, aspiration done, started on empiric vanc/zosyn. Feeling about the same. No prior h/o gout. Full ROS performed and neg except as noted above. [facility] Medical History Atherosclerosis of coronary artery of [place] heart without angina pectoris Atrial fibrillation Cardiogenic shock (06/08/16) Cardiomyopathy, ischemic Chronic systolic CHF (congestive heart failure) DDD (degenerative disc disease) Declining functional status Diabetes Esophagitis determined by endoscopy (05/06/17) Essential hypertension Former smoker Generalized weakness GERD (gastroesophageal reflux disease) Hyperglycemia Hyperlipidemia Hypertensive emergency ICD (implantable cardioverter-defibrillator) in place Inability to ambulate due to multiple joints Left atrial thrombus 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 Myocardial infarct Nonsustained ventricular tachycardia Obesity (BMI 30.0-34.9) 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 infarction Old inferolateral myocardial infarction Old myocardial infarction Osteoporosis Pacemaker Paroxysmal atrial fibrillation Right bundle branch block (RBBB) Stage 3 chronic kidney disease STEMI (ST elevation myocardial infarction) Type II diabetes mellitus Home Medications pantoprazole 40 mg tablet,delayed release 40 mg PO BID gerd 03/13/19 [History Last Taken 11/25/21] aspirin 81 mg chewable tablet 81 mg PO DAILY@0800 [facility] 10/20/19 [History Last Taken 11/25/21] nitroglycerin 0.4 mg sublingual tablet 0.4 mg sublingual Q5M PRN Chest Pain #25 tabs 02/01/20 [Rx Last Taken 1 Month Ago ~10/25/21] furosemide 40 mg tablet 40 mg PO DAILY diuretic #90 tabs 03/03/21 [Rx Last Taken 11/25/21] ranolazine 500 mg tablet,extended release,12 hr 500 mg PO BID #60 tabs 04/07/21 [Rx Last Taken 11/25/21] oxycodone 5 mg tablet 5 mg PO Q6H PRN PRN Pain 06/18/21 [History Last Taken 11/24/21] pravastatin 40 mg tablet 40 mg PO QHS cholesterol #90 tabs 06/30/21 [Rx Last Taken 11/24/21] carvedilol 25 mg tablet 25 mg PO BID #180 tabs 09/24/21 [Rx Last Taken 11/25/21] apixaban 2.5 mg tablet (Eliquis) 2.5 mg PO BID blood thinner 11/25/21 [History Last Taken 11/25/21] insulin NPH isoph U-100 human 100 unit/mL (3 mL) subcutaneous pen (Humulin N NPH U-100 Insulin KwikPen) 30 units subcut BREAKFAST 11/25/21 [History Last Taken 11/25/21] insulin NPH isoph U-100 human 100 unit/mL (3 mL) subcutaneous pen (Humulin N NPH U-100 Insulin KwikPen) 40 unit subcut QHS diabetes 11/25/21 [History Last Taken 11/24/21] isosorbide mononitrate 30 mg tablet,extended release 24 hr 30 mg PO BID heart 11/25/21 [History Last Taken 11/25/21] metolazone 2.5 mg tablet 2.5 mg PO TUFR 11/25/21 [History Last Taken 11/25/21] spironolactone 50 mg tablet (Aldactone) 25 mg PO DAILY fluid 11/25/21 [History L ast Taken Unknown] doxycycline hyclate 100 mg capsule (Vibramycin) 100 mg PO BID #10 caps 11/26/21 [Rx Last Taken Unknown] prednisone 20 mg tablet 20 mg PO BID #11 tabs 11/26/21 [Rx Last Taken Unknown] Allergy/AdvReac Type Severity Reaction Status Date / Time diltiazem Allergy LOWER LEG Verified 11/25/21 15:18 SWELLING tamsulosin [From Flomax] Allergy Shortness Verified 11/25/21 15:18 of breath/muscle weakness atorvastatin calcium AdvReac MUSCLE Verified 11/25/21 15:18 [From Lipitor] WEAKNESS Family History (Updated 11/25/21 @ 21:[address] Luci Purvis MD) Brother Sudden cardiac Father Hypertension Surgical History H/O elbow surgery H/O left wrist surgery History of cardioversion (04/10/16) History of coronary artery stent placement (06/08/16) Hx of atrioventricular node ablation (02/19/20) 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 therapy defibrillator ([employer]) (02/2020) S/P right inguinal hernia repair Status post knee surgery Social History adopted: No household members: children housing: house number of children: 1 (Daughter) current occupational status: retired current occupational exposures/hazards: No pets and animals: Yes (cats) history of recent travel: No Smoking Status: Former smoker quit date: 01/03/15 pack-years: 90 how long ago did patient quit smokin years ago alcohol intake: current alcohol intake frequency: a few times a month substance use type: does not use caffeine: Yes Type: coffee Number of servings: 1 Physical Exam Const alert, oriented x3 and no apparent distress General Appearance: cooperative HEENT normocephalic and head/scalp atraumatic Eyes PERRL and EOMs intact bilaterally Neck supple and No nodes Resp normal air movement and clear to auscultation bilaterally Cardio regular rate and regular rhythm GI soft to palpation, non-tender and non-distended Extremity General Extremity: Negative for edema Skin Skin Narrative: L knee wrapped Neuro CN's II-XII intact bilaterally Lab / Micro Data Attestation: I reviewed the patient's lab results. Result Diagrams: 11/26/21 04:42 11/26/21 04:42 Labs: Laboratory Results - last 24 hr 11/25/21 15:40: WBC 16.9 H, RBC 5.60, Hgb 15.0, Hct 46.2, MCV 82.5, MCH 26.8 L, MCHC 32.5, RDW Std Deviation 45.9 H, RDW Coeff of [place] 15.3 H, Plt Count 365, MPV 9.0, Immature Gran % (Auto) 1.600 H, Neut % (Auto) 84.6 H, Lymph % (Auto) 4.0 L, [place] % (Auto) 8.7, Eos % (Auto) 0.7, Baso % (Auto) 0.4, Absolute Neuts (auto) 14.3 H, Absolute Lymphs (auto) 0.67 L, Nucleated RBC % 0, ESR 62 H 11/25/21 15:40: Sodium 130 L, Potassium 3.3 L, Chloride 94 L, Carbon Dioxide 26.0, Anion Gap 10, BUN 46 H, Creatinine 2.26 H, Estim Creat Clear Calc 30.85, Est GFR (MDRD) Af Amer 37 L, Est GFR (MDRD) Non-Af 31 L, BUN/Creatinine Ratio 20.4 H, Glucose 137 H, Calcium 8.4 L, C-React Prot Ext Range 117.00 H 11/25/21 15:40: Uric Acid 10.5 H 11/25/21 17:46: Fluid Crystals SEE PATH REV, Fluid Crystal Source SYNOVIAL, Fl Crystal Path Review Reviewed, Synovial Source KNEE, Synovial Color Yellow, Synovial Appearance Turbid, Synovial WBC 60.3500 H, Synovial RBC 0.003 H, Synovial Tot Cell Ct 60.5300 H, Synov Polynuclear WBCs 59.655, Synov Mononuclear WBCs 3.084, Synovial Neutrophils 97 H, Synovial Monocytes 3, Synovial Polynuclear % 95.0, Synovial Mononuclear % 5.0, Synovial Path Comment May follow 11/25/21 19:34: Magnesium 1.4 L 11/25/21 19:45: Lactic Acid 1.3 11/25/21 23:19: POC Glucose 202 H 11/26/21 04:42: WBC 13.7 H, RBC 5.67, Hgb 15.4, Hct 47.7, MCV 84.1, MCH 27.2, MCHC 32.3, RDW Std Deviation 46.9 H, RDW Coeff of [place] 15.5 H, Plt Count 303, MPV 9.3, Immature Gran % (Auto) 1.200 H, Neut % (Auto) 82.8 H, Lymph % (Auto) 4.9 L, [place] % (Auto) 10.2 H, Eos % (Auto) 0.3, Baso % (Auto) 0.6, Absolute Neuts (auto) 11.4 H, Absolute Lymphs (auto) 0.67 L, Nucleated RBC % 0 11/26/21 04:42: Sodium 131 L, Potassium 3.6, Chloride 96 L, Carbon Dioxide 28.0, Anion Gap 7, BUN 42 H, Creatinine 2.08 H, Estim Creat Clear Calc 32.43, Est GFR (MDRD) Af Amer 41 L, Est GFR (MDRD) Non-Af 34 L, BUN/Creatinine Ratio 20.2 H, Glucose 116 H, Calcium 8.9, Total Bilirubin 0.90, AST 17, ALT 10 L, Alkaline Phosphatase 75, Total Protein 7.6, Albumin 3.0 L, Globulin 4.6 H, A lbumin/Globulin Ratio 0.7 L 11/26/21 04:42: Magnesium 1.9 11/26/21 06:44: POC Glucose 103 11/26/21 11:38: POC Glucose 110 H Micro: Microbiology 11/25/21 17:46 Fluid - Synovial (joint) Gram Stain - Final Radiology Impression Knee X-Ray 11/25/21 15:50 IMPRESSION: Degenerative changes. No acute fracture or dislocation Electronically Signed: Herberth Garcia MD at 16:10 EDT ,
--- NOTE | 2021-11-26 14:03 | PHA.DC.MR ---
Pharmacy Service has performed discharge medication reconciliation for this patient. The patient's discharge medication list was reviewed for discrepancies and discrepancies were resolved. Medication education papers prepared, patient discharged before counseling could be attempted. Home Medications pantoprazole 40 mg tablet,delayed release 40 mg PO BID gerd 03/13/19 aspirin 81 mg chewable tablet 81 mg PO DAILY@0800 [facility] 10/20/19 nitroglycerin 0.4 mg sublingual tablet 0.4 mg sublingual Q5M PRN Chest Pain #25 tabs 02/01/20 furosemide 40 mg tablet 40 mg PO DAILY diuretic #90 tabs 03/03/21 ranolazine 500 mg tablet,extended release,12 hr 500 mg PO BID #60 tabs 04/07/21 oxycodone 5 mg tablet 5 mg PO Q6H PRN PRN Pain 06/18/21 pravastatin 40 mg tablet 40 mg PO QHS cholesterol #90 tabs 06/30/21 carvedilol 25 mg tablet 25 mg PO BID #180 tabs 09/24/21 apixaban 2.5 mg tablet (Eliquis) 2.5 mg PO BID blood thinner 11/25/21 insulin NPH isoph U-100 human 100 unit/mL (3 mL) subcutaneous pen (Humulin N NPH U-100 Insulin KwikPen) 30 units subcut BREAKFAST 11/25/21 insulin NPH isoph U-100 human 100 unit/mL (3 mL) subcutaneous pen (Humulin N NPH U-100 Insulin KwikPen) 40 unit subcut QHS diabetes 11/25/21 isosorbide mononitrate 30 mg tablet,extended release 24 hr 30 mg PO BID heart 11/25/21 metolazone 2.5 mg tablet 2.5 mg PO TUFR 11/25/21 spironolactone 50 mg tablet (Aldactone) 25 mg PO DAILY fluid 11/25/21 doxycycline hyclate 100 mg capsule (Vibramycin) 100 mg PO BID #10 caps 11/26/21 prednisone 20 mg tablet 20 mg PO BID #11 tabs 11/26/21
[2021-11-28 18:19] LABS: GLUCOSE, SYNOVIAL FLUID < 2 mg/dL (.)
[2021-11-28 18:25] LABS: PROTEIN, SYNOVIAL FLUID 4.9 g/dL (.)
== END 2021-11-26 13:47 | disposition home health service (06) | DRG 554 ==
LOC: ED 19:09 → MS3 20:01
PROVIDERS: Orthopaedic Surgery; Admitting Provider Family Medicine; Emergency Provider Emergency Medicine; PCP Family Medicine; Visit Provider Internal Medicine
DX: M10.062 Idiopathic gout, left knee (principal); I13.0 Hypertensive heart and chronic kidney disease with heart failure and stage 1 through stage 4 chronic kidney disease, or unspecified chronic kidney disease; E87.1 Hypo-osmolality and hyponatremia; I50.22 Chronic systolic (congestive) heart failure; E11.22 Type 2 diabetes mellitus with diabetic chronic kidney disease; N18.32 Chronic kidney disease, stage 3b; I48.0 Paroxysmal atrial fibrillation; J44.9 Chronic obstructive pulmonary disease, unspecified; Z79.4 Long term (current) use of insulin; E87.6 Hypokalemia; I25.5 Ischemic cardiomyopathy; E78.5 Hyperlipidemia, unspecified; I25.10 Atherosclerotic heart disease of native coronary artery without angina pectoris; E83.42 Hypomagnesemia; M17.12 Unilateral primary osteoarthritis, left knee; I25.2 Old myocardial infarction; Z95.810 Presence of automatic (implantable) cardiac defibrillator; Z95.5 Presence of coronary angioplasty implant and graft; Z79.01 Long term (current) use of 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s; Z79.82 Long term (current) use of aspirin; Z79.899 Other long term (current) drug therapy; Z86.718 Personal history of other venous thrombosis and embolism; Z87.891 Personal history of nicotine dependence
CPT/HCPCS: 36415; 73564; 80048; 80053; 82945; 82962; 83605; 83735; 84157; 84550; 85025; 85652; 86140; 87040; 87070; 87075; 87205; 89050; 89051; 89060; 97162; 97166; 97802; 99251; 99285; J7030; J7050; A4216; G0463

== ENCOUNTER 2022-03-23 10:05 | Emergency (ER) | payer MEDICARE, SELFPAY ==
[2016-06-12 14:02] VITALS: BMI 29.7
[2022-03-23 10:06] VITALS: BP 141/75; PULSE 70; RESP 18; TEMP 36.6; O2SAT 100; BMI 26.6
--- NOTE | 2022-03-23 10:33 | ED.VIS.LOWEX ---
HPI History of Present Illness HPI Narrative: Falls x2 due to his left knee pain. Chronic left knee pain due to degenerative arthritis. Chief Complaint: Lower Extremity Injury Informant: patient Occured/Mechanism Mechanism/Context: No injury and No blunt trauma Onset/Context/Timing Onset: Month(s) Context: Gradual Onset Timing: Continuous Quality of Pain: Dull and Aching Current Severity: Mild Maximum Severity: Mild Associated Symptoms Associated Symptoms: Negative for Parasthesia, Weakness or Loss of Funtion Narrative Narrative: 71-year-old male history of chronic left knee pain. He needs a note for knee replacement but due to his history of A. fib, diabetes, MA with 6 cardiac stents he has been told by 3 different orthopedic physicians that he was a nonsurgical candidate and they can do replacement. States the pain in his knee is chronic. It is causing the fall twice in the last several days. He denies any other injuries. He denies hitting his head. He is on Eliquis due to A. fib. He denies any recent illness. Said he did not fall because he is weak just because of the pain in his knee. Prior similar symptoms: No Recent Illness/Hospitalization: [facility] Medical History (Updated 03/23/22 @ 11:[address] Braden Zafar MD) Atherosclerosis of coronary artery of [place] heart without angina pectoris (~03/23/22) Atrial fibrillation Cardiogenic shock (06/08/16) Cardiomyopathy, ischemic Chronic systolic CHF (congestive heart failure) DDD (degenerative disc disease) Declining functional status Diabetes Effusion of left knee Elevated troponin Esophagitis determined by endoscopy (05/06/17) Essential hypertension Essential hypertension Former smoker Generalized weakness GERD (gastroesophageal reflux disease) Hyperglycemia Hyperlipidemia Hypertensive emergency ICD (implantable cardioverter-defibrillator) in place Inability to ambulate due to multiple joints Knee effusion, left Knee pain, left Left atrial thrombus intermediate current use of 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 Multiple falls Myocardial infarct Non-ST elevation MA (NSTEMI) Nonsustained ventricular tachycardia Obesity (BMI 30.0-34.9) 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 infarction Old inferolateral myocardial infarction Old myocardial infarction Osteoporosis Pacemaker Paroxysmal atrial fibrillation Right bundle branch block (RBBB) Septic arthritis of knee, left Stage 3 chronic kidney disease STEMI (ST elevation myocardial infarction) Type II diabetes mellitus Home Medications pantoprazole 40 mg tablet,delayed release 40 mg PO BID gerd 03/13/19 [History Last Taken 11/25/21] aspirin 81 mg chewable tablet 81 mg PO DAILY@0800 heart health 10/20/19 [History Last Taken 11/25/21] nitroglycerin 0.4 mg sublingual tablet 0.4 mg sublingual Q5M PRN Chest Pain #25 tabs 02/01/20 [Rx Last Taken 1 Month Ago ~10/25/21] ranolazine 500 mg tablet,extended release,12 hr 500 mg PO BID #60 tabs 04/07/21 [Rx Last Taken 11/25/21] oxycodone 5 mg tablet 5 mg PO Q6H PRN PRN Pain 06/18/21 [History Last Taken 11/24/21] pravastatin 40 mg tablet 40 mg PO QHS cholesterol #90 tabs 06/30/21 [Rx Last Taken 11/24/21] carvedilol 25 mg tablet 25 mg PO BID #180 tabs 09/24/21 [Rx Last Taken 11/25/21] insulin NPH isoph U-100 human 100 unit/mL (3 mL) subcutaneous pen (Humulin N NPH U-100 Insulin KwikPen) 30 units subcut BREAKFAST 11/25/21 [History Last Taken 11/25/21] insulin NPH isoph U-100 human 100 unit/mL (3 mL) subcutaneous pen (Humulin N NPH U-100 Insulin KwikPen) 40 unit subcut QHS diabetes 11/25/21 [History Last Taken 11/24/21] isosorbide mononitrate 30 mg tablet,extended release 24 hr 30 mg PO BID heart 11/25/21 [History Last Taken 11/25/21] doxycycline hyclate 100 mg capsule (Vibramycin) 100 mg PO BID #10 caps 11/26/21 [Rx Last Taken Unknown] prednisone 20 mg tablet 20 mg PO BID #11 tabs 11/26/21 [Rx Last Taken Unknown] apixaban 2.5 mg tablet (Eliquis) 2.5 mg PO BID blood thinner #60 tabs 01/26/22 [Rx Last Taken Unknown] metolazone 2.5 mg tablet 2.5 mg PO TUFR #24 tabs 01/26/22 [Rx Last Taken Unknown] spironolactone 50 mg tablet (Aldactone) 25 mg PO DAILY fluid #45 tabs 01/26/22 [Rx Last Taken Unknown] furosemide 40 mg tablet 40 mg PO BID diuretic #90 tabs 02/18/22 [Rx Last Taken Unknown] hydrocodone-acetaminophen 5-325mg 5mg-325mg 1 tab PO Q4H PRN pain 5 days #14 tabs 03/23/22 [Rx Last Taken Unknown] prednisone 20 mg tablet 40 mg PO DAILY 9 days #18 tabs 03/23/22 [Rx Last Taken Unknown] Allergy/AdvReac Type Severity Reaction Status Date / Time diltiazem Allergy LOWER LEG Verified 03/23/22 10:09 SWELLING tamsulosin [From Flomax] Allergy Shortness Verified 03/23/22 10:09 of breath/muscle weakness atorvastatin calcium AdvReac MUSCLE Verified 03/23/22 10:09 [From Lipitor] WEAKNESS Family History Brother Sudden cardiac Father Hypertension Surgical History H/O elbow surgery H/O left wrist surgery History of cardiac radiofrequency ablation (RFA) History of cardioversion (04/10/16) History of coronary artery stent placement (06/08/16) Hx of atrioventricular node ablation (02/19/20) 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 therapy defibrillator ([employer]MENT [employer]-D) (02/2020) S/P right inguinal hernia repair Status post knee surgery Social History adopted: No household members: children housing: house number of children: 1 (Daughter) current occupational status: retired current occupational exposures/hazards: No pets and animals: Yes (cats) history of recent travel: No Smoking Status: Former smoker quit date: 01/03/15 pack-years: 90 how long ago did patient quit smokin years ago alcohol intake: current alcohol intake frequency: a few times a month substance use type: does not use caffeine: Yes Type: coffee Number of servings: 1 ROS ROS ED ROS Narrative Denies recent illness. Review of Systems ROS Unobtainable: Denies due to encephalopathy Constitutional Constitutional ED: Denies chills or fever(s) Eyes Eyes: Denies blurry vision ENT ENT ED: Denies ear pain, rhinorrhea or sore throat Cardiovascular Cardiovascular: Denies chest pain Respiratory/Chest Respiratory/Chest: Denies cough or dyspnea Gastrointestinal Gastrointestinal: Denies abdominal pain, diarrhea, nausea or vomiting Genitourinary Genitourinary ED: Denies dysuria or hematuria Musculoskeletal Musculoskeletal: Denies arthralgias Integumentary Denies abscess Neurologic Neurologic: Denies headache(s) Psychiatric Psychiatric: Denies anxiety Endocrine Endocrinology: Denies polydipsia Hematologic/Lymphatic Hematologic/Lymphatic: Denies easy bleeding Allergic/Immunologic Allergic/Immunologic ED: Denies mouth swelling or tongue swelling EXAM Physical Exam Narrative Exam Narrative: 81-year-old male no acute distress. Vital signs stable afebrile. Pulse ox 9% on room air no hypoxia. H EENT exam unremarkable atraumatic. Nontender. Pupils round reactive light. No facial droop. Moist mucous membranes. Neck nontender. Back nontender. Lungs clear to auscultation bilaterally. Heart A. fib rate about 70. Chest wall nontender. Abdomen soft nontender. Pelvic girdle intact. Normal pan shaker strength in both upper extremities normal range of motion nontender. Right lower extremity nontender. Both hips nontender. Left knee tender swollen consistent with arthritis. Decreased range of motion due to pain. Dorsi plantarflexion intact. Both ankles and both hips are nontender. Neurologically is awake and alert with no focal motor deficits. Benign exam except for chronic left knee pain. Const Vital Signs: 03/23/22 10:06 Temperature 97.9 F Temperature Source Temporal Pulse Rate 70 Respiratory Rate 18 Blood Pressure 141/75 H Blood Pressure Mean 97 Pulse Ox 100 Oxygen Delivery Method Room Air Positive well nourished and well developed; Negative for obese, cachectic, contractures or unkempt General Appearance ED: well developed and NAD; Negative for unkempt, cachectic or contractures Nutritional Appearance: Negative for cachectic or obese HEENT Reports moist mucous membranes normocephalic and atraumatic; Negative for trauma or tenderness Eyes PERRL General Eye ED: Negative for other Neck full ROM and supple Thyroid: Negative for tender Lymph Lymphatic: Negative for other Chest Wall inspection of chest normal and palpation of chest normal Chest: Negative for other Resp normal respiratory effort, no retractions and clear to auscultation bilaterally Effort and Inspection: Negative for pain with movement Auscultation: Negative for rales, rhonchi, wheezes or diminished lung sounds Cardio regular rate, regular rhythm, S1 normal heart sound, S2 normal heart sound and no murmurs Rate: Negative for bradycardia or tachycardic Rhythm: Negative for abnormal rhythm Bruits: Negative for other GI non-tender, non-distended and no masses Inspection: Negative for abdominal distention Auscultation: normoactive bowel sounds Palpation: soft; Negative for tender, guarding or rebound tenderness present Back/Spine no CVA tenderness General Back: Negative for CVA tenderness or swelling Cervical Spine: Negative for cervical spine tenderness Thoracic Spine / Upper Back: Negative for thoracic spinal tenderness Lumbar Spine / Lower Back: Negative for lumbar spinal tenderness Extremity Negative for normal to inspection or full ROM Extremity Narrative: Left knee swollen. Tender. Consistent with arthritis. No redness. General Extremety ED: Yes weight-bearing difficulty General Extremity: weight-bearing difficulty Neuro oriented x3, CN's II-XII intact bilaterally and moves all extremities Sensorium / Orientation: alert, oriented to person, oriented to place and oriented to time; Negative for orientation impaired, confused, lethargic or stuporous Motor Exam: strength 5/5 throughout Psych mental status grossly normal Appearance: Negative for unkempt Speech: No other Mood & Affect: Negative for anxious Skin no wounds Lesions: no lesions Rashes: no rashes Trauma: Negative for abrasion, laceration or puncture MDM MDM MDM Narrative Medical decision making narrative: Older male falls due to chronic left knee pain from degenerative arthritis. He is on a blood thinner. He did not hit his head. He has a significant cardiac history and has been told by orthopedic surgeons that he is not a surgical candidate due to his overall medical condition. X-ray being obtained of his knee. [place] for pain. Repeat exam unchanged at 11:50 AM. Discussed with the patient he said he failed to mention that last time he had this he was told by orthopedics he had gout. He and I discussed a joint injection he did not want that he has had them 3 times and said he never given him any relief. He will be written for [employer] for pain. He will be given a dose of prednisone here and placed on prednisone for the next 10 days. Follow-up with his orthopedic physician. Radiography Diagnostic Testing: Clinical Impression(s) from Imaging Studies Knee X-Ray 03/23/22 10:35 IMPRESSION: Evidence of prior anterior cruciate ligament repair. Small joint effusion. Electronically Signed: Domingo Noyola MD at 11:12 EST , Left knee x-ray multiple views interpreted by myself and the radiologist shows degenerative arthritis. Joint space narrowing. Small effusion. Chronic changes. No fracture. No dislocation. Discharge Plan Triage Chief Complaint: Lower Extremity Injury ED Provider: Braden Zafar Dx/Rx/DC Orders Clinical Impression: Acute pain of left knee, Acute gout Instructions: ED Gout Prescriptions: New hydrocodone-acetaminophen 5-325 mg tablet 1 tab PO Q4H PRN (Reason: pain) 5 Days Qty: 14 0RF prednisone 20 mg tablet 40 mg PO DAILY 9 Days Qty: 18 0RF No Action pantoprazole 40 MG tablet 40 mg PO BID aspirin 81 MG tablet,chewable 81 mg PO DAILY@0800 oxycodone 5 mg tablet 5 mg PO Q6H PRN PRN (Reason: Pain) Label Comments: TAKE 1 TABLET BY MOUTH EVERY 6 HOURS for severe pain Humulin N NPH Insulin KwikPen 100 unit/mL (3 mL) insulin pen 40 unit subcut QHS Humulin N NPH Insulin KwikPen 100 unit/mL (3 mL) insulin pen 30 units subcut BREAKFAST isosorbide mononitrate 30 mg tablet extended release 24 hr 30 mg PO BID doxycycline hyclate [Vibramycin] 100 mg capsule 100 mg PO BID Qty: 10 0RF prednisone 20 mg tablet 20 mg PO BID Qty: 11 0RF Rx Instructions: one twice a day for 3 days, then 1 1/2 daily for 2 days, then one daily for 2 days, then stop nitroglycerin 0.4 mg tablet, sublingual 0.4 mg SUBLINGUAL Q5M PRN (Reason: Chest Pain) Qty: 25 0RF Rx Instructions: Place one tab under tongue every 5 minutes x 3 doses as needed ranolazine 500 mg tablet extended release 12 hr 500 mg PO BID Qty: 60 11RF pravastatin 40 mg tablet 40 mg PO QHS Qty: 90 3RF carvedilol 25 mg tablet 25 mg PO BID Qty: 180 3RF Eliquis 2.5 mg tablet 2.5 mg PO BID Qty: 60 11RF Rx Instructions: TAKE 1 TABLET BY MOUTH TWICE DAILY for blood thinner spironolactone [Aldactone] 50 mg tablet 25 mg PO DAILY Qty: 45 3RF metolazone 2.5 mg tablet 2.5 mg PO Qty: 24 3RF Rx Instructions: take on Wednesday and Wednesday. furosemide 40 mg tablet 40 mg PO BID Qty: 90 3RF Primary Care Provider: Jennifer Spicer Referrals: Anjel Tsang DO [Med Staff - Active Staff] - As soon as possible Jennifer Spicer DO [Primary Care Provider] - Activity Restrictions/Additional Instructions: You have pain and swelling in your left knee most likely secondary to gout. [place] for pain. Prednisone 40 mg a day starting tomorrow to decrease the gout. And inflammation. Do not use ice to the knee that will make it worse. Follow-up with your orthopedic doctor. He is Disposition Disposition: Home, Self Care
--- NOTE | 2022-03-23 10:35 | RAD_ITS ---
STUDY: X-RAY - LEFT KNEE REASON FOR EXAM: Male, 71 years old. Left knee pain TECHNIQUE: 4 view(s) of the knee. COMPARISON: Comparison is made with prior study dated 06/18/2021. FINDINGS: The patient is status post anterior cruciate ligament repair with postoperative changes of the distal femur and proximal tibia. Normal medial femorotibial compartment. Normal lateral femorotibial compartment. Normal patellofemoral articulation. Small joint effusion. Vascular calcification. RAD/Knee 4 or More Views IMPRESSION: Evidence of prior anterior cruciate ligament repair. Small joint effusion. Electronically Signed: Domingo Noyola MD at 11:12 EST ,
[2022-03-23] MEDS: HYDROcodone Bitartrate/Apap 5/325 Tablet PO (10:53)
[2022-03-23] MEDS: predniSONE 20 MG Tablet 60 MG PO (12:03)
== END 2022-03-23 12:07 | disposition home or self-care (01) ==
PROVIDERS: Emergency Provider Emergency Medicine; PCP Family Medicine; Visit Provider Emergency Medicine
DX: M10.062 Idiopathic gout, left knee (principal); I13.0 Hypertensive heart and chronic kidney disease with heart failure and stage 1 through stage 4 chronic kidney disease, or unspecified chronic kidney disease; I50.22 Chronic systolic (congestive) heart failure; E11.22 Type 2 diabetes mellitus with diabetic chronic kidney disease; I48.91 Unspecified atrial fibrillation; N18.30 Chronic kidney disease, stage 3 unspecified; M17.12 Unilateral primary osteoarthritis, left knee; E78.5 Hyperlipidemia, unspecified; I25.10 Atherosclerotic heart disease of native coronary artery without angina pectoris; G89.29 Other chronic pain; Z79.01 Long term (current) use of 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s; Z79.52 Long term (current) use of systemic steroids; Z87.891 Personal history of nicotine dependence
CPT/HCPCS: 73564; 99285

== ENCOUNTER 2022-04-05 16:44 | Observation (INO) | payer MEDICARE, SELFPAY ==
[2016-06-12 14:02] VITALS: BMI 29.7
[2022-04-05] VITALS (8 sets, daily range): BP systolic 125–150; BP diastolic 77–86; PULSE 70–73; RESP 18–24; TEMP 36.3–36.5; O2SAT 94–97; BMI 26.4; BMI 25.2
--- NOTE | 2022-04-05 17:01 | EKG12_ITS ---
Test Reason : CHEST PAIN Blood Pressure : / mmHG Vent. Rate : 074 BPM Atrial Rate : 277 BPM P-R Int : 000 ms QRS Dur : 136 ms QT Int : 460 ms P-R-T Axes : 000 173 057 degrees QTc Int : 510 ms Ventricular-paced rhythm Abnormal ECG Confirmed by EML METZ, REINA ([id number]), art editor LISBET HAWK ([id number]) on 04/07/2022 1:18:50 PM Referred By: MARIFER Confirmed By:REINA LEAL MD
--- NOTE | 2022-04-05 17:01 | RAD_ITS ---
STUDY: X-RAY CHEST REASON FOR EXAM: Male, 71 years old. chest pain TECHNIQUE: Single AP portable view of the chest. COMPARISON: 10/23/2021 FINDINGS: Left subclavian AICD which is unchanged. The lungs are clear and expanded. There is no demonstrated pleural abnormality. Normal size heart. Normal mediastinum and loco. Normal visualized pulmonary arteries. Normal visualized aortic arch and descending thoracic aorta. Normal visualized thoracic spine. Normal visualized ribs, clavicles, and shoulders. There is no demonstrated abnormality of the visualized soft tissue structures of the upper abdomen. RAD/Chest 1 View (Portable) IMPRESSION: No active disease. Electronically Signed: Víctor Boateng MD at 17:40 EST ,
[2022-04-05 17:08] LABS: Absolute Lymphocyte Count 0.42 X10^3/uL (0.83-4.51); Absolute Neutrophil Count 16.5 X10^3/uL (2.0-7.7); Basophil% 0.5 % (0-1); Eosinophil# 0.07 X10^3/uL; Eosinophils% 0.4 % (0-5); Hematocrit 50.7 % (40-54); Hemoglobin 16.9 g/dL (13.0-16.5); Lymphocyte # 0.42 X10^3/ul (0.83-4.51); Lymphocyte % 2.2 % (19-41); Mean Corp Hgb Conc 33.3 g/dL (32-36); Mean Corpuscular Hgb 29.1 pg (27.0-32.0); Mean Corpuscular Volume 87.4 fL (80-94); Mean Platelet Vol. 9.7 fl (6.2-12.0); Monocyte# 1.48 X10^3/uL; Monocyte% 7.7 % (0-10); NRBC Flagged by Analyzer 0 % (0-5); Neutrophil # 16.51 X10^3/uL (2.7-7.7); Neutrophil % 86.4 % (47-70); POSITIVE DIFFERENTIAL YES; Platelet Count 228 K/mm3 (150-450); RBC Distribution Width CV 14.3 % (11.6-14.6); RBC Distribution Width SD 45.4 fl (35.1-43.9); White Blood Count 19.1 K/mm3 (4.4-11.0)
[2022-04-05 17:16] LABS: Differential Indicated SCAN CRITERIA MET
[2022-04-05 17:27] LABS: Anion Gap 7 (5-15); BUN 61 mg/dL (7-18); BUN/Creat Ratio 32.1 RATIO (10-20); Calcium,Total 8.1 mg/dL (8.5-10.1); Chloride 96 mmol/L (98-107); EST Glomerular Filtration Rate 38 mL/min (>60); Est Glom Filt Rate - Afr Amer 45 mL/min (>60); Estimated Creatinine Clearance 36.69 ml/min; Glucose 418 mg/dL (74-106); Potassium 3.4 mmol/L (3.5-5.1); Sodium Level 132 mmol/L (136-145); Troponin-I HS 54 pg/mL (3.0-78.0)
[2022-04-05 17:52] LABS: Differential Comment SCANNED
--- NOTE | 2022-04-05 18:54 | EX.ED.DYSGE1 ---
HPI History of Present Illness Chief Complaint: Chest Pain Informant: patient and family Narrative Narrative: 71-year-old male presenting with dyspnea on exertion and chest pain. Chest pain started last night and has been intermittent. He states he is unable to walk just a few steps without getting extremely short of breath. This worsened over the last several days. Denies fever. He is on Lasix, no recent change in medications. He is unable to lay flat. Prior similar symptoms: Yes Recent Illness/Hospitalization: No PFSH PFSH Medical History Atherosclerosis of coronary artery of [place] heart without angina pectoris (~03/23/22) Atrial fibrillation Cardiogenic shock (06/08/16) Cardiomyopathy, ischemic Chronic systolic CHF (congestive heart failure) DDD (degenerative disc disease) Declining functional status Diabetes Effusion of left knee Elevated troponin Esophagitis determined by endoscopy (05/06/17) Essential hypertension Essential hypertension Former smoker Generalized weakness GERD (gastroesophageal reflux disease) Hyperglycemia Hyperlipidemia Hypertensive emergency ICD (implantable cardioverter-defibrillator) in place Inability to ambulate due to multiple joints Knee effusion, left Knee pain, left 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 Multiple falls Myocardial infarct Non-ST elevation [place] (NSTEMI) Nonsustained ventricular tachycardia Obesity (BMI 30.0-34.9) 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 infarction Old inferolateral myocardial infarction Old myocardial infarction Osteoporosis Pacemaker Paroxysmal atrial fibrillation Right bundle branch block (RBBB) Septic arthritis of knee, left Stage 3 chronic kidney disease STEMI (ST elevation myocardial infarction) Type II diabetes mellitus Home Medications pantoprazole 40 mg tablet,delayed release 40 mg PO BID gerd 03/13/19 [History Last Taken 11/25/21] aspirin 81 mg chewable tablet 81 mg PO DAILY@0800 heart [facility] 10/20/19 [History Last Taken 11/25/21] nitroglycerin 0.4 mg sublingual tablet 0.4 mg sublingual Q5M PRN Chest Pain #25 tabs 02/01/20 [Rx Last Taken 1 Month Ago ~10/25/21] ranolazine 500 mg tablet,extended release,12 hr 500 mg PO BID #60 tabs 04/07/21 [Rx Last Taken 11/25/21] carvedilol 25 mg tablet 25 mg PO BID #180 tabs 09/24/21 [Rx Last Taken 11/25/21] insulin NPH isoph U-100 human 100 unit/mL (3 mL) subcutaneous pen (Humulin N NPH U-100 Insulin KwikPen) 30 units subcut BREAKFAST 11/25/21 [History Last Taken 11/25/21] insulin NPH isoph U-100 human 100 unit/mL (3 mL) subcutaneous pen (Humulin N NPH U-100 Insulin KwikPen) 40 unit subcut QHS diabetes 11/25/21 [History Last Taken 11/24/21] isosorbide mononitrate 30 mg tablet,extended release 24 hr 30 mg PO BID heart 11/25/21 [History Last Taken 11/25/21] apixaban 2.5 mg tablet (Eliquis) 2.5 mg PO BID blood thinner #60 tabs 01/26/22 [Rx Last Taken Unknown] metolazone 2.5 mg tablet 2.5 mg PO TUFR #24 tabs 01/26/22 [Rx Last Taken Unknown] spironolactone 50 mg tablet (Aldactone) 25 mg PO DAILY fluid #45 tabs 01/26/22 [Rx Last Taken Unknown] furosemide 40 mg tablet 40 mg PO BID diuretic #90 tabs 02/18/22 [Rx Last Taken Unknown] hydrocodone-acetaminophen 5-325mg 5mg-325mg 1 tab PO Q4H PRN pain 5 days #14 tabs 03/23/22 [Rx Last Taken Unknown] pravastatin 40 mg tablet 40 mg PO QHS cholesterol #90 tabs 03/24/22 [Rx Last Taken Unknown] Allergy/AdvReac Type Severity Reaction Status Date / Time diltiazem Allergy LOWER LEG Verified 03/23/22 10:09 SWELLING tamsulosin [From Flomax] Allergy Shortness Verified 03/23/22 10:09 of breath/muscle weakness atorvastatin calcium AdvReac MUSCLE Verified 03/23/22 10:09 [From Lipitor] WEAKNESS Family History Brother Sudden cardiac Father Hypertension Surgical History H/O elbow surgery H/O left wrist surgery History of cardiac radiofrequency ablation (RFA) History of cardioversion (04/10/16) History of coronary artery stent placement (06/08/16) Hx of atrioventricular node ablation (02/19/20) 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 therapy defibrillator (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) S/P right inguinal hernia repair Status post knee surgery Social History adopted: No household members: children housing: house number of children: 1 (Daughter) current occupational status: retired current occupational exposures/hazards: No pets and animals: Yes (cats) history of recent travel: No Smoking Status: Former smoker quit date: 01/03/15 pack-years: 90 how long ago did patient quit smokin years ago alcohol intake: current alcohol intake frequency: a few times a month substance use type: does not use caffeine: Yes Type: coffee Number of servings: 1 ROS ROS ED Constitutional Constitutional ED: Denies fever(s) Eyes Eyes: Denies change in vision ENT ENT ED: Denies rhinorrhea or sore throat Cardiovascular Cardiovascular: Reports chest pain; Denies palpitations Respiratory/Chest Respiratory/Chest: Reports dyspnea; Denies cough Gastrointestinal Gastrointestinal: Denies abdominal pain, diarrhea, nausea or vomiting Genitourinary Genitourinary ED: Denies dysuria Musculoskeletal Musculoskeletal: Denies myalgias Integumentary Denies rash Neurologic Neurologic: Denies headache(s) Psychiatric Psychiatric: Denies suicidal thoughts EXAM Physical Exam Const Vital Signs: 04/05/22 16:46 04/05/22 16:52 04/05/22 17:04 Temperature 97.3 F L Temperature Source Temporal Pulse Rate 70 Respiratory Rate 20 H Blood Pressure 149/77 H Blood Pressure Mean 101 Pulse Ox 97 Oxygen Delivery Method Room Air Room Air 04/05/22 18:31 Temperature Temperature Source Pulse Rate 73 Respiratory Rate 24 H Blood Pressure 125/86 H Blood Pressure Mean 99 Pulse Ox 95 Oxygen Delivery Method Room Air Positive well nourished and well developed General Appearance ED: well developed HEENT Reports normocephalic and head/scalp atraumatic Eyes PERRL and EOMs intact bilaterally Neck supple General: Negative for tenderness Chest Wall inspection of chest normal Resp normal respiratory effort Auscultation: diminished lung sounds Cardio regular rate and regular rhythm GI non-tender and non-distended Palpation: soft; Negative for guarding or rebound tenderness present no CVA tenderness Extremity normal to inspection Neuro oriented x3 Sensorium / Orientation: alert Psych mental status grossly normal MDM MDM MDM Narrative Medical decision making narrative: EKG is paced rhythm rate of 74 with no acute ischemic changes. Chest x-ray read by myself and radiology shows no active disease. CBC shows white count 19.1, history of chronically elevated white count. Sodium 132, potassium 3.4, BUN 61, creatinine 1.9, troponin is negative. Patient is unable to walk just a few steps without dropping his pulse ox 85% on room air. He does not wear home O2. Discussed with hospitalist for admission. Lab Data Attestation: I reviewed the patient's lab results. Labs: Laboratory Results - last 24 hr 04/05/22 04/05/22 17:00 17:00 WBC 19.1 H RBC 5.80 Hgb 16.9 H Hct 50.7 MCV 87.4 MCH 29.1 MCHC 33.3 RDW Std Deviation 45.4 H RDW Coeff of [place] 14.3 Plt Count 228 MPV 9.7 Immature Gran % (Auto) 2.800 H Neut % (Auto) 86.4 H Lymph % (Auto) 2.2 L Rhea % (Auto) 7.7 Eos % (Auto) 0.4 Baso % (Auto) 0.5 Absolute Neuts (auto) 16.5 H Absolute Lymphs (auto) 0.42 L Nucleated RBC % 0 Differential Comment SCANNED Sodium 132 L Potassium 3.4 L Chloride 96 L Carbon Dioxide 29.0 Anion Gap 7 BUN 61 H Creatinine 1.90 H Estim Creat Clear Calc 36.69 Est GFR (MDRD) Af Amer 45 L Est GFR (MDRD) Non-Af 38 L BUN/Creatinine Ratio 32.1 H Glucose 418 H Calcium 8.1 L Troponin I High Sens 54 Radiography Chest X-Ray - ED: 1 View, Read by ED Physician and Read by Radiologist Diagnostic Testing: Clinical Impression(s) from Imaging Studies Chest X-Ray 04/05/22 17:01 IMPRESSION: No active disease. Electronically Signed: Víctor Boateng MD at 17:40 EST , Discharge Plan Triage Chief Complaint: Chest Pain ED Provider: Keily Uribe Dx/Rx/DC Orders Clinical Impression: FERNANDEZ (dyspnea on exertion), Hypoxia Prescriptions: No Action pantoprazole 40 MG tablet 40 mg PO BID aspirin 81 MG tablet,chewable 81 mg PO DAILY@0800 Humulin N NPH Insulin KwikPen 100 unit/mL (3 mL) insulin pen 40 unit subcut QHS Humulin N NPH Insulin KwikPen 100 unit/mL (3 mL) insulin pen 30 units subcut BREAKFAST isosorbide mononitrate 30 mg tablet extended release 24 hr 30 mg PO BID hydrocodone-acetaminophen 5-325 mg tablet 1 tab PO Q4H PRN (Reason: pain) 5 Days Qty: 14 0RF nitroglycerin 0.4 mg tablet, sublingual 0.4 mg SUBLINGUAL Q5M PRN (Reason: Chest Pain) Qty: 25 0RF Rx Instructions: Place one tab under tongue every 5 minutes x 3 doses as needed ranolazine 500 mg tablet extended release 12 hr 500 mg PO BID Qty: 60 11RF carvedilol 25 mg tablet 25 mg PO BID Qty: 180 3RF Eliquis 2.5 mg tablet 2.5 mg PO BID Qty: 60 11RF Rx Instructions: TAKE 1 TABLET BY MOUTH TWICE DAILY for blood thinner spironolactone [Aldactone] 50 mg tablet 25 mg PO DAILY Qty: 45 3RF metolazone 2.5 mg tablet 2.5 mg PO Qty: 24 3RF Rx Instructions: take on Wednesday and Wednesday. furosemide 40 mg tablet 40 mg PO BID Qty: 90 3RF pravastatin 40 mg tablet 40 mg PO QHS Qty: 90 3RF Primary Care Provider: Jennifer Spicer Referrals: Jennifer Spicer DO [Primary Care Provider] - Disposition Disposition: Acute Care Hospital [facility]
--- NOTE | 2022-04-05 19:06 | HP.PCM.HOS_ITS ---
HPI - General General Date of Admission: 04/05/22 Date of Service: 04/05/22 Chief Complaint: Chest pain, shortness of breath HPI Narrative RYAN CUMMINS, is a 71 M who presents to the emergency room at [facility] complaining of severe dyspnea especially on exertion, he has a history of cardiomyopathy with reduced ejection fraction, he also has a history of coronary artery disease. Patient states that for several days he has been having increased shortness of breath along with occasional episodes of substernal chest pain. He is somewhat vague about these episodes of substernal chest pain-patient had a stress test performed in October of last year which was negative for reversible ischemia. The gated ejection fraction at that time was 39%. Work-up in the ER revealed a pulse ox above 90% at rest but however, patient's pulse ox dropped when he was walking to 86%. According the patient's daughter, he is dyspneic lying down at home and has to sit up to breathe. Patient does not have home O2, he has a past history of smoking for many years-he says he quit approximately 4 years ago. Chest x-ray did not show evidence of an infiltrate, his white blood cell count was elevated at 19,000, chemistry profile was remarkable for creatinine of 1.9, potassium was 3.4, glucose was 418. On examination, the patient does not have any peripheral edema, breath sounds are distant bilaterally, there were no wheezes rhonchi or rales noted. Patient will be admitted to [place] [id number] under PCU status for acute on chronic congestive heart failure with reduced ejection fraction, I will place him on IV Lasix, repeat his echocardiogram, and adjust his other medications. [facility] Medical History Atherosclerosis of coronary artery of [place] heart without angina pectoris (~03/23/22) Atrial fibrillation Cardiogenic shock (06/08/16) Cardiomyopathy, ischemic Chronic systolic CHF (congestive heart failure) DDD (degenerative disc disease) Declining functional status Diabetes Effusion of left knee Elevated troponin Esophagitis determined by endoscopy (05/06/17) Essential hypertension Essential hypertension Former smoker Generalized weakness GERD (gastroesophageal reflux disease) Hyperglycemia Hyperlipidemia Hypertensive emergency ICD (implantable cardioverter-defibrillator) in place Inability to ambulate due to multiple joints Knee effusion, left Knee pain, left 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 Multiple falls Myocardial infarct Non-ST elevation [place] (NSTEMI) Nonsustained ventricular tachycardia Obesity (BMI 30.0-34.9) 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 infarction Old inferolateral myocardial infarction Old myocardial infarction Osteoporosis Pacemaker Paroxysmal atrial fibrillation Right bundle branch block (RBBB) Septic arthritis of knee, left Stage 3 chronic kidney disease STEMI (ST elevation myocardial infarction) Type II diabetes mellitus Home Medications pantoprazole 40 mg tablet,delayed release 40 mg PO BID gerd 03/13/19 [History Last Taken 11/25/21] aspirin 81 mg chewable tablet 81 mg PO DAILY@0800 [facility] 10/20/19 [History Last Taken 11/25/21] nitroglycerin 0.4 mg sublingual tablet 0.4 mg sublingual Q5M PRN Chest Pain #25 tabs 02/01/20 [Rx Last Taken 1 Month Ago ~10/25/21] ranolazine 500 mg tablet,extended release,12 hr 500 mg PO BID #60 tabs 04/07/21 [Rx Last Taken 11/25/21] carvedilol 25 mg tablet 25 mg PO BID #180 tabs 09/24/21 [Rx Last Taken 11/25/21] insulin NPH isoph U-100 human 100 unit/mL (3 mL) subcutaneous pen (Humulin N NPH U-100 Insulin KwikPen) 30 units subcut BREAKFAST 11/25/21 [History Last Taken 11/25/21] insulin NPH isoph U-100 human 100 unit/mL (3 mL) subcutaneous pen (Humulin N NPH U-100 Insulin KwikPen) 40 unit subcut QHS diabetes 11/25/21 [History Last Taken 11/24/21] isosorbide mononitrate 30 mg tablet,extended release 24 hr 30 mg PO BID heart 11/25/21 [History Last Taken 11/25/21] apixaban 2.5 mg tablet (Eliquis) 2.5 mg PO BID blood thinner #60 tabs 01/26/22 [Rx Last Taken Unknown] metolazone 2.5 mg tablet 2.5 mg PO TUFR #24 tabs 01/26/22 [Rx Last Taken Unknown] spironolactone 50 mg tablet (Aldactone) 25 mg PO DAILY fluid #45 tabs 01/26/22 [Rx Last Taken Unknown] furosemide 40 mg tablet 40 mg PO BID diuretic #90 tabs 02/18/22 [Rx Last Taken Unknown] hydrocodone-acetaminophen 5-325mg 5mg-325mg 1 tab PO Q4H PRN pain 5 days #14 tabs 03/23/22 [Rx Last Taken Unknown] pravastatin 40 mg tablet 40 mg PO QHS cholesterol #90 tabs 03/24/22 [Rx Last Taken Unknown] Allergy/AdvReac Type Severity Reaction Status Date / Time diltiazem Allergy LOWER LEG Verified 03/23/22 10:09 SWELLING tamsulosin [From Flomax] Allergy Shortness Verified 03/23/22 10:09 of breath/muscle weakness atorvastatin calcium AdvReac MUSCLE Verified 03/23/22 10:09 [From Lipitor] WEAKNESS Family History Brother Sudden cardiac Father Hypertension Surgical History H/O elbow surgery H/O left wrist surgery History of cardiac radiofrequency ablation (RFA) History of cardioversion (04/10/16) History of coronary artery stent placement (06/08/16) Hx of atrioventricular node ablation (02/19/20) 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 therapy 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) S/P right inguinal hernia repair Status post knee surgery Social History adopted: No household members: children housing: house number of children: 1 (Daughter) current occupational status: retired current occupational exposures/hazards: No pets and animals: Yes (cats) history of recent travel: No Smoking Status: Former smoker quit date: 01/03/15 pack-years: 90 how long ago did patient quit smokin years ago alcohol intake: current alcohol intake frequency: a few times a month substance use type: does not use caffeine: Yes Type: coffee Number of servings: 1 ROS Constitutional Constitutional: Reports fatigue; Denies anorexia, change in weight, chills, fever(s), malaise, night sweats or weakness Eyes Eyes: Denies blurry vision, change in vision, discharge from eye(s) or eye pain Cardiovascular Cardiovascular: Reports chest pain, dyspnea on exertion and orthopnea; Denies claudication, edema or palpitations Respiratory/Chest Respiratory/Chest: Denies cough, hemoptysis, shortness of breath at rest or shortness of breath with exertion Gastrointestinal Gastrointestinal: Denies abdominal pain, constipation, diarrhea, hematemesis, hematochezia, melena, nausea or vomiting Genitourinary Genitourinary: Denies dysuria, hematuria, urinary frequency, urinary hesitancy, urinary incontinence or urinary urgency Musculoskeletal Musculoskeletal: Denies back pain, joint pain, joint stiffness, joint swelling, myalgias or neck pain Neurologic Neurologic: Denies abnormal gait, abnormal speech, dizziness, focal weakness, headache(s), loss of vision, numbness, other visual disturbances, paresthesias, syncope or tingling Psychiatric Psychiatric: Denies anxiety, cognitive impairment, depression, irritability, mood swings or suicidal ideation Endocrine Endocrinology: Denies change in body appearance, cold intolerance, excessive sweating, heat intolerance, polydipsia or polyuria Hematologic/Lymphatic Hematologic/Lymphatic: Denies none, anemia, easy bleeding, easy bruising or lymphadenopathy Allergic/Immunologic Allergic/Immunologic: Denies rhinitis, urticaria, eczemia or asthma Vital Signs Vital Signs Vital Signs: 04/05/22 16:46 04/05/22 16:52 04/05/22 17:04 Temperature 97.3 F L Temperature Source Temporal Pulse Rate 70 Respiratory Rate 20 H Blood Pressure 149/77 H Blood Pressure Mean 101 Pulse Ox 97 Oxygen Delivery Method Room Air Room Air 04/05/22 18:31 Temperature Temperature Source Pulse Rate 73 Respiratory Rate 24 H Blood Pressure 125/86 H Blood Pressure Mean 99 Pulse Ox 95 Oxygen Delivery Method Room Air Weight Weight: 81.1 kg Body Mass Index (BMI) 26.4 Physical Exam Const alert, oriented x3, no apparent distress and average body habitus Constitutional Narrative: Patient appears older than stated age General Appearance: cooperative, well kempt and well developed Orientation / Consciousness: awake, oriented to person, oriented to place and oriented to time HEENT normocephalic, head/scalp atraumatic, hearing grossly normal bilaterally and moist oral mucous membranes Eyes PERRL, EOMs intact bilaterally and conjunctivae normal Neck supple, no JVD, thyroid normal and no carotid bruits General: trachea midline Resp normal respiratory effort, no retractions and no use of accessory muscles Resp Narrative: Breath sounds are diminished bilaterally Auscultation: Negative for rales, rhonchi or wheezes Cardio regular rate, regular rhythm, S1 normal heart sound, S2 normal heart sound, no murmurs, no rub and no gallops Cardio Narrative: Ventricular paced rhythm GI normal to inspection, nondistended, normoactive bowel sounds, soft to palpation, non-tender and non-distended Extremity no clubbing, cyanosis or edema Skin no rashes or lesions noted General Skin Exam: no breakdown Neuro oriented x3, CN's II-XII intact bilaterally, no focal motor deficits and no sensory deficits noted Sensorium / Orientation: awake and alert Speech: speech normal Psych affect normal Results Lab / Micro Data Result Diagrams: 04/05/22 17:00 04/05/22 17:00 Labs: Laboratory Results - last 24 hr 04/05/22 17:00: WBC 19.1 H, RBC 5.80, Hgb 16.9 H, Hct 50.7, MCV 87.4, MCH 29.1, MCHC 33.3, RDW Std Deviation 45.4 H, RDW Coeff of [place] 14.3, Plt Count 228, MPV 9.7, Immature Gran % (Auto) 2.800 H, Neut % (Auto) 86.4 H, Lymph % (Auto) 2.2 L, [place] % (Auto) 7.7, Eos % (Auto) 0.4, Baso % (Auto) 0.5, Absolute Neuts (auto) 16.5 H, Absolute Lymphs (auto) 0.42 L, Nucleated RBC % 0, Differential Comment SCANNED 04/05/22 17:00: Sodium 132 L, Potassium 3.4 L, Chloride 96 L, Carbon Dioxide 29.0, Anion Gap 7, BUN 61 H, Creatinine 1.90 H, Estim Creat Clear Calc 36.69, Est GFR (MDRD) Af Amer 45 L, Est GFR (MDRD) Non-Af 38 L, BUN/Creatinine Ratio 32.1 H, Glucose 418 H, Calcium 8.1 L, Troponin I High Sens 54 Radiology Impression Chest X-Ray 04/05/22 17:01 IMPRESSION: No active disease. Electronically Signed: Víctor Boateng MD at 17:40 EST , Assessment & Plan Assessment/Plan (1) Chronic systolic CHF (congestive heart failure): PLAN: Plan 1. Acute on chronic systolic congestive heart failure-although the patient's chest x-ray does not show a discernible heart failure pattern, his pulse ox drops to 85% on minimal ambulation. Patient will be placed into PCU status on MedSurg 2, I will place him on IV Lasix and increase his Aldactone to 50 mg daily. I am not sure why the patient is not on an ARB or an AN-his last echocardiogram showed a reduced ejection fraction of 35 to 40%. Daughter states that he was given a prescription for Entresto at one time but they could not afford it. I will start him on lisinopril. Patient's kidney function will need to be monitored as he has a component of chronic kidney disease #2 ischemic cardiomyopathy-complicates care, management, recovery, and prognosis, patient's last stress test did not show any areas of reversible ischemia. #3 type 2 diabetes-blood sugar will be monitored, sliding scale insulin will be used if needed #4 hypokalemia-this is mild, BMP will be rechecked tomorrow #5 chronic kidney disease stage IIIb-complicates care, management, recovery, and prognosis #6 hypoxia-patient will need a walking pulse oximetry before he is discharged home, he may qualify for home O2 #7 coronary artery disease-patient has a past history of coronary artery stent placement, he will remain on his home medications #7 long-term use of 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-I suspect this may be secondary to underlying paroxysmal atrial fibrillation, patient is currently on Eliquis, patient has a past history of AV wilmer ablation in 2020 according to his medical records. Charges/Coding Visit Charges Inpatient E&M: 89802 Init Hosp L3
[2022-04-05 19:09] LABS: BNP,B-Type NATRIURETIC PEPTIDE 155.7 pg/mL (0-100)
--- NOTE | 2022-04-05 19:57 | CT_ITS ---
EXAM: CT Chest W/O Contrast Injection HISTORY: hypoxia TECHNIQUE: CT Chest W/O Contrast Injection A radiation dose optimization technique was used for this scan. COMPARISON: CT chest 12/28/2014. LIMITATIONS: None. LUNGS: No pneumonia or edema. Punctate calcified granulomas in the right lung. There are a few scattered pulmonary micronodules measuring up to 3 mm. AORTA/GREAT VESSELS: Ascending thoracic aortic aneurysm measuring 4.1 cm.. Mild atherosclerotic calcifications. PULMONARY VESSELS: Normal. PLEURA: Normal. MEDIASTINUM: Left chest AICD with leads terminating in the right ventricle and coronary sinus. Coronary artery calcifications. Aortic valvular calcifications.. Prominent mediastinal lymph nodes. UPPER ABDOMEN: Mild bilateral perinephric fat stranding. Calcifications in the kidneys, likely represent vascular calcifications, less likely nonobstructive calculi. BONES/SOFT TISSUES: Normal. OTHER: None. CT/Chest without Contrast IMPRESSION: 1. No acute cardiopulmonary disease. 2. Ascending thoracic aortic aneurysm measuring 4.1 cm. 3. Mild bilateral perinephric fat stranding, nonspecific however recommend correlation for ascending urinary tract infection. 4. Calcifications in the kidneys, likely vascular calcifications, less likely nonobstructive calculi. 5. Pulmonary micronodules measuring up to 3 mm. *Fleischner Society Recommendations (Radiology 2005;[id number].) (Follow-up and management of nodules smaller than 8 mm detected incidentally at non-screening CT. Newly detected indeterminate nodule in persons 35 years of age or older.) Low risk patient: Minimal or absent history of smoking and of other known risk factors. <= 4mm: No followup needed >4-6mm: Follow-up CT at 12 months, if unchanged - no further followup >6-8mm: Initial Follow-up CT at 6-12 months, then at 18-24 months if no change >8mm: Follow-up CT at 3, 9, and 24 months; FDG PET scan; and or biopsy High risk patient: History of smoking or of other known risk factors. <= 4mm: Follow-up CT at 12 months, if unchanged - no further followup >4-6mm: Initial Follow-up CT at 6-12 months, then at 18-24 months if no change >6-8mm: Initial Follow-up CT at 3-6 months, then at 9-12 and 24 months if no change >8mm: Follow-up CT at 3, 9, and 24 months; FDG PET scan; and or biopsy Note: Non-solid (ground-glass) or partly solid nodules may require longer follow-up to Electronically Signed: Yury Del Angel MD at 1:46 EST ,
[2022-04-05] MEDS: Carvedilol 25 MG Tablet PO (22:49)
[2022-04-05] MEDS: 0.9% Saline Lock 10 ML Syringe IV (22:50)
[2022-04-05] MEDS: Ranolazine 500 MG Tablet PO (22:50)
[2022-04-05] MEDS: APIXABAN 2.5 MG TABLET (WCH) PO (22:50)
[2022-04-05] MEDS: Pravastatin 40 MG Tablet PO (22:50)
[2022-04-05] MEDS: Pantoprazole Sodium 40 MG Tablet PO (22:50)
[2022-04-05] MEDS: Furosemide 40 MG/4 ML Vial IV (22:50)
[2022-04-05] MEDS: Insulin NPH Human 100 UNITS/ML PEN 40 UNITS SC (22:50)
[2022-04-05] MEDS: Isosorbide Mononitrate 30 MG Tablet PO (22:50)
[2022-04-05] MEDS: Insulin Lispro 100 UNIT/ML INSULN.PEN SC (22:51)
[2022-04-05 23:31] LABS: Bedside Glucose 319 mg/dL (74-106)
[2022-04-06] VITALS (13 sets, daily range): BP systolic 97–147; BP diastolic 59–95; PULSE 69–80; RESP 16–20; TEMP 36.1–36.8; O2SAT 92–96
[2022-04-06] MEDS: Insulin Lispro 100 UNIT/ML INSULN.PEN SC ×3 (06:40→16:11)
[2022-04-06] MEDS: 0.9% Saline Lock 10 ML Syringe IV ×2 (06:41→13:17)
[2022-04-06] MEDS: Furosemide 40 MG/4 ML Vial IV ×2 (06:41→13:17)
[2022-04-06] MEDS: Ipratropium/Albuterol Sulfate 3 ML AMPUL.NEB INHALATION ×3 (07:09→21:51)
[2022-04-06 07:15] LABS: Bedside Glucose 415 mg/dL (74-106)
[2022-04-06] MEDS: Insulin NPH Human 100 UNITS/ML PEN 30 UNITS SC (08:30)
[2022-04-06] MEDS: Aspirin 81 MG TAB.CHEW PO (08:30)
[2022-04-06] MEDS: Carvedilol 25 MG Tablet PO (08:31)
[2022-04-06] MEDS: Spironolactone 50 MG Tablet PO (08:31)
[2022-04-06] MEDS: Isosorbide Mononitrate 30 MG Tablet PO (08:32)
[2022-04-06] MEDS: Ranolazine 500 MG Tablet PO (08:32)
[2022-04-06] MEDS: Pantoprazole Sodium 40 MG Tablet PO (08:32)
[2022-04-06] MEDS: APIXABAN 2.5 MG TABLET (WCH) PO (08:32)
[2022-04-06] MEDS: Lisinopril 5 MG Tablet PO (08:32)
[2022-04-06 08:36] LABS: Absolute Lymphocyte Count 0.88 X10^3/uL (0.83-4.51); Absolute Neutrophil Count 11.8 X10^3/uL (2.0-7.7); Basophil% 0.7 % (0-1); Eosinophil# 0.03 X10^3/uL; Eosinophils% 0.2 % (0-5); Hematocrit 54.5 % (40-54); Hemoglobin 17.9 g/dL (13.0-16.5); Lymphocyte # 0.88 X10^3/ul (0.83-4.51); Mean Corp Hgb Conc 32.8 g/dL (32-36); Mean Corpuscular Hgb 28.9 pg (27.0-32.0); Monocyte# 1.38 X10^3/uL; Monocyte% 9.5 % (0-10); NRBC Flagged by Analyzer 0 % (0-5); Neutrophil # 11.78 X10^3/uL (2.7-7.7); Neutrophil % 80.8 % (47-70); Platelet Count 216 K/mm3 (150-450); RBC Distribution Width CV 14.4 % (11.6-14.6); RBC Distribution Width SD 45.7 fl (35.1-43.9); Red Blood Count 6.19 M/mm3 (4.6-6.2); White Blood Count 14.6 K/mm3 (4.4-11.0)
[2022-04-06 09:12] LABS: Anion Gap 10 (5-15); BUN 61 mg/dL (7-18); BUN/Creat Ratio 27.9 RATIO (10-20); Calcium,Total 9.3 mg/dL (8.5-10.1); Chloride 89 mmol/L (98-107); Creatinine, Serum 2.19 mg/dL (0.70-1.30); EST Glomerular Filtration Rate 32 mL/min (>60); Est Glom Filt Rate - Afr Amer 39 mL/min (>60); Glucose 357 mg/dL (74-106); Potassium 3.2 mmol/L (3.5-5.1); Sodium Level 131 mmol/L (136-145)
[2022-04-06] MEDS: Potassium Chloride Oral Tablet 20 MEQ 40 MEQ PO (10:18)
[2022-04-06 12:10] LABS: Bedside Glucose 305 mg/dL (74-106)
--- NOTE | 2022-04-06 16:11 | PCM.PN.HOSP ---
Subjective Subjective Patient was seen and examined today, he remains on room air at this time, patient tested positive for COVID-19 yesterday. Patient continues IV diuresis with Lasix, I have also adjusted his oral medications for congestive heart failure. Objective Data Objective Data Vital Signs: Vital Signs Temp Pulse Resp BP Pulse Ox O2 Del Method 98.2 F 73 18 97/59 L 92 Room Air 04/06/22 14:00 04/06/22 15:00 04/06/22 14:00 04/06/22 14:00 04/06/22 14:00 04/06/22 14:00 Oxygen Delivery Method Room Air Weight: 77.1 kg Body Mass Index (BMI) 25.2 Intake & Output: Intake and Output for Last 24 Hours 04/04/22 04/05/22 04/06/22 23:59 23:59 23:59 Intake Total 240 / 240 Output Total 300 / 300 800 / 800 Balance -300 / -300 -560 / -560 Lab / Micro Data Result Diagrams: 04/06/22 08:00 04/06/22 08:00 Labs: Laboratory Results - last 24 hr 04/05/22 17:00: WBC 19.1 H, RBC 5.80, Hgb 16.9 H, Hct 50.7, MCV 87.4, MCH 29.1, MCHC 33.3, RDW Std Deviation 45.4 H, RDW Coeff of Franklin 14.3, Plt Count 228, MPV 9.7, Immature Gran % (Auto) 2.800 H, Neut % (Auto) 86.4 H, Lymph % (Auto) 2.2 L, [place] % (Auto) 7.7, Eos % (Auto) 0.4, Baso % (Auto) 0.5, Absolute Neuts (auto) 16.5 H, Absolute Lymphs (auto) 0.42 L, Nucleated RBC % 0, Differential Comment SCANNED 04/05/22 17:00: Sodium 132 L, Potassium 3.4 L, Chloride 96 L, Carbon Dioxide 29.0, Anion Gap 7, BUN 61 H, Creatinine 1.90 H, Estim Creat Clear Calc 36.69, Est GFR (MDRD) Af Amer 45 L, Est GFR (MDRD) Non-Af 38 L, BUN/Creatinine Ratio 32.1 H, Glucose 418 H, Calcium 8.1 L, Troponin I High Sens 54 04/05/22 17:00: B-Natriuretic Peptide 155.7 H 04/05/22 22:47: POC Glucose 319 H 04/06/22 06:38: POC Glucose 415 H 04/06/22 08:00: WBC 14.6 H, RBC 6.19, Hgb 17.9 H, Hct 54.5 H, MCV 88.0, MCH 28.9, MCHC 32.8, RDW Std Deviation 45.7 H, RDW Coeff of Franklin 14.4, Plt Count 216, MPV 10.0, Immature Gran % (Auto) 2.800 H, Neut % (Auto) 80.8 H, Lymph % (Auto) 6.0 L, [place] % (Auto) 9.5, Eos % (Auto) 0.2, Baso % (Auto) 0.7, Absolute Neuts (auto) 11.8 H, Absolute Lymphs (auto) 0.88, Nucleated RBC % 0 04/06/22 08:00: Sodium 131 L, Potassium 3.2 L, Chloride 89 L, Carbon Dioxide 32.0, Anion Gap 10, BUN 61 H, Creatinine 2.19 H, Estim Creat Clear Calc 30.80, Est GFR (MDRD) Af Amer 39 L, Est GFR (MDRD) Non-Af 32 L, BUN/Creatinine Ratio 27.9 H, Glucose 357 H, Calcium 9.3 04/06/22 11:42: POC Glucose 305 H Micro: Microbiology 04/05/22 18:13 Nasal Secretion SARS-CoV-2 & FLU Antigen (Rapid) - Final SARS-CoV-2 (COVID 19) Radiography Diagnostic Testing: Radiology Impression Chest X-Ray 04/05/22 17:01 IMPRESSION: No active disease. Electronically Signed: Víctor Boateng MD at 17:40 EST , Chest CT 04/05/22 19:57 IMPRESSION: 1. No acute cardiopulmonary disease. 2. Ascending thoracic aortic aneurysm measuring 4.1 cm. 3. Mild bilateral perinephric fat stranding, nonspecific however recommend correlation for ascending urinary tract infection. 4. Calcifications in the kidneys, likely vascular calcifications, less likely nonobstructive calculi. 5. Pulmonary micronodules measuring up to 3 mm. *Fleischner Society Recommendations (Radiology 2005;237:395-400.) (Follow-up and management of nodules smaller than 8 mm detected incidentally at non-screening CT. Newly detected indeterminate nodule in persons 35 years of age or older.) Low risk patient: Minimal or absent history of smoking and of other known risk factors. <= 4mm: No followup needed >4-6mm: Follow-up CT at 12 months, if unchanged - no further followup >6-8mm: Initial Follow-up CT at 6-12 months, then at 18-24 months if no change >8mm: Follow-up CT at 3, 9, and 24 months; FDG PET scan; and or biopsy High risk patient: History of smoking or of other known risk factors. <= 4mm: Follow-up CT at 12 months, if unchanged - no further followup >4-6mm: Initial Follow-up CT at 6-12 months, then at 18-24 months if no change >6-8mm: Initial Follow-up CT at 3-6 months, then at 9-12 and 24 months if no change >8mm: Follow-up CT at 3, 9, and 24 months; FDG PET scan; and or biopsy Note: Non-solid (ground-glass) or partly solid nodules may require longer follow-up to Electronically Signed: Yury Del Angel MD at 1:46 EST Reading Location ID and State: [address] [place] [address] Tel , Service support , Physical Exam Narrative alert, oriented x3, no apparent distress and average body habitus Constitutional Narrative: Patient appears older than stated age General Appearance: cooperative, well kempt and well developed Orientation / Consciousness: awake, oriented to person, oriented to place and oriented to time HEENT normocephalic, head/scalp atraumatic, hearing grossly normal bilaterally and moist oral mucous membranes Eyes PERRL, EOMs intact bilaterally and conjunctivae normal Neck supple, no JVD, thyroid normal and no carotid bruits General: trachea midline Resp normal respiratory effort, no retractions and no use of accessory muscles Resp Narrative: Breath sounds are diminished bilaterally Auscultation: Negative for rales, rhonchi or wheezes, breath sounds are diminished Cardio regular rate, regular rhythm, S1 normal heart sound, S2 normal heart sound, no murmurs, no rub and no gallops Cardio Narrative: Ventricular paced rhythm GI normal to inspection, nondistended, normoactive bowel sounds, soft to palpation, non-tender and non-distended Extremity no clubbing, cyanosis or edema Skin no rashes or lesions noted General Skin Exam: no breakdown Neuro oriented x3, CN's II-XII intact bilaterally, no focal motor deficits and no sensory deficits noted Sensorium / Orientation: awake and alert Speech: speech normal Psych affect normal Assessment & Plan Assessment/Plan (1) FERNANDEZ (dyspnea on exertion): (2) Chronic systolic CHF (congestive heart failure): PLAN: Plan 1. Acute on chronic systolic congestive heart failure-continue present treatment at this time, patient will be reevaluated tomorrow #2 ischemic cardiomyopathy-complicates care, management, recovery, and prognosis, patient's last stress test did not show any areas of reversible ischemia. Patient has an echocardiogram ordered, the result is not come back yet. #3 type 2 diabetes-blood sugar will be monitored, sliding scale insulin will be used if needed #4 hypokalemia-this is mild, BMP will be rechecked tomorrow #5 chronic kidney disease stage IIIb-complicates care, management, recovery, and prognosis #6 hypoxia-patient will need a walking pulse oximetry before he is discharged home, he may qualify for home O2 #7 coronary artery disease-patient has a past history of coronary artery stent placement, he will remain on his home medications #7 long-term use of 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-I suspect this may be secondary to underlying paroxysmal atrial fibrillation, patient is currently on Eliquis, patient has a past history of AV wilmer ablation in 2020 according to his medical records. Clinical time spent by myself addressing the patient's medical issues, reviewing all of the patient's medical data, and collaborating with patient's care team: 35 minutes Charges/Coding Visit Charges Inpatient E&M: 40826 Subs Hosp L2
[2022-04-06 17:15] LABS: Bedside Glucose 226 mg/dL (74-106)
[2022-04-07] VITALS (10 sets, daily range): BP systolic 96–104; BP diastolic 47–70; PULSE 70–92; RESP 16–18; TEMP 36.4–36.7; O2SAT 93–97
[2022-04-07] MEDS: Pantoprazole Sodium 40 MG Tablet PO ×2 (00:58→10:52)
[2022-04-07] MEDS: Pravastatin 40 MG Tablet PO (00:58)
[2022-04-07] MEDS: Isosorbide Mononitrate 30 MG Tablet PO (00:58)
[2022-04-07] MEDS: Ranolazine 500 MG Tablet PO ×2 (00:58→10:52)
[2022-04-07] MEDS: Carvedilol 25 MG Tablet PO (00:58)
[2022-04-07] MEDS: APIXABAN 2.5 MG TABLET (WCH) PO ×2 (00:58→10:52)
[2022-04-07] MEDS: Furosemide 40 MG/4 ML Vial IV ×3 (01:01→14:44)
[2022-04-07] MEDS: 0.9% Saline Lock 10 ML Syringe IV ×2 (01:05→05:50)
[2022-04-07] MEDS: Insulin NPH Human 100 UNITS/ML PEN 40 UNITS SC (01:06)
[2022-04-07] MEDS: Insulin Lispro 100 UNIT/ML INSULN.PEN SC ×3 (01:11→11:06)
[2022-04-07 01:35] LABS: Bedside Glucose 223 mg/dL (74-106)
[2022-04-07] MEDS: Ipratropium/Albuterol Sulfate 3 ML AMPUL.NEB INHALATION ×2 (07:17→13:39)
[2022-04-07] MEDS: Aspirin 81 MG TAB.CHEW PO (07:59)
[2022-04-07] MEDS: Insulin NPH Human 100 UNITS/ML PEN 30 UNITS SC (08:00)
[2022-04-07 11:01] LABS: Bedside Glucose 218 mg/dL (74-106)
--- NOTE | 2022-04-07 11:20 | NURSING ---
Dr. Simmons notified of BP 96/54 P70. Pt. asymptomatic. Asked if would like to hold Aldactone, Coreg, Imdur, and Zestril.
--- NOTE | 2022-04-07 11:50 | NURSING ---
Dr. Simmons stated to hold Aldactone, Imdur, Coreg, and Zestril at this time.
[2022-04-07 12:25] LABS: Bedside Glucose 361 mg/dL (74-106)
--- NOTE | 2022-04-07 13:00 | CASEMGMT ---
RN CM called patient in room for initial transition planning/care coordination assessment. RN LISET introduced self and role at [facility]. Patient lying in bed, alert and oriented. Patient willing to participate in assessment and is able to answer all questions appropriately. Care providers, pharmacy, and demographics verified. Patient wishes to discharge home, denies need for home health at this time. Patient states he has no further needs or concerns at this time. CM to follow for discharge planning needs that may arise. PCP: Dannielle Specialists: [place] nurse ortho; tatyana Haynes Preferred Pharmacy: [facility] Insurance: Shakira JACKSON Prescription Benefit: yes Living Will/HPOA: daughter Cristy Moser LNOK: daughter Living Arrangements: Patient lives with daughter and CAROLEE in a 2 story home. Patient states he is independent and able to ambulate stairs. Transportation: self, daughter DME/HHC: Patient has cane, walker, wheelchair, grab bars, and glucometer with supplies at home. Patient has previously been to [place]. [facility] Will monitor patient for home oxygen at discharge. Patient states he has no preferred DME company. CM reviewed DME agencies and agreeable to [facility]. Disposition Plan: Patient to discharge home with family support and follow-up plans in place. Will monitor for home oxygen. Jeanne ARRINGTON, RN, CM
--- NOTE | 2022-04-07 15:05 | DCINST_ITS ---
Discharge Instructions Diet Discharge Diet: 1800 Calorie Control Diet Activity Discharge Activity: Return to Normal Activity Weight Bearing Status: Full weight bearing Follow Up Care Test Results: Test results from this visit will be discussed in further detail at your follow- up appointment, if applicable. Discharge Plan Admission Admit Date/Time: 04/05/22 19:42 Primary Reason for Your Visit: congestive heart failure Attending Provider: Grant Bond Primary Care Provider: Jennifer Spicer Instructions Additional Instructions / Restrictions: If you gain more than 5 lbs in a week, call your physician Quarantine until 04/11/22 Discharge Orders/Prescriptions Prescriptions: New lisinopril 5 mg Tablet 5 mg PO DAILY Qty: 30 0RF spironolactone 50 mg Tablet 50 mg PO DAILY Qty: 30 0RF furosemide [Lasix] 40 mg tablet 40 mg PO UD Qty: 90 0RF Rx Instructions: two every morning, one at dinner daily Continued pantoprazole 40 MG tablet 40 mg PO BID aspirin 81 MG tablet,chewable 81 mg PO DAILY@0800 Humulin N NPH Insulin KwikPen 100 unit/mL (3 mL) insulin pen 40 unit subcut QHS Humulin N NPH Insulin KwikPen 100 unit/mL (3 mL) insulin pen 30 units subcut BREAKFAST isosorbide mononitrate 30 mg tablet extended release 24 hr 30 mg PO BID hydrocodone-acetaminophen 5-325 mg tablet 1 tab PO Q4H PRN (Reason: pain) 5 Days Qty: 14 0RF nitroglycerin 0.4 mg tablet, sublingual 0.4 mg SUBLINGUAL Q5M PRN (Reason: Chest Pain) Qty: 25 0RF Rx Instructions: Place one tab under tongue every 5 minutes x 3 doses as needed ranolazine 500 mg tablet extended release 12 hr 500 mg PO BID Qty: 60 11RF carvedilol 25 mg tablet 25 mg PO BID Qty: 180 3RF Eliquis 2.5 mg tablet 2.5 mg PO BID Qty: 60 11RF Rx Instructions: TAKE 1 TABLET BY MOUTH TWICE DAILY for blood thinner pravastatin 40 mg tablet 40 mg PO QHS Qty: 90 3RF Discontinued spironolactone [Aldactone] 50 mg tablet 25 mg PO DAILY Qty: 45 3RF metolazone 2.5 mg tablet 2.5 mg PO Qty: 24 3RF Rx Instructions: take on Wednesday and Wednesday. furosemide 40 mg tablet 40 mg PO BID Qty: 90 3RF Referrals / Follow Up: Jennifer Spicer DO [Primary Care Provider] - Within 2 Weeks Disposition Disposition (needs filled in before D/C Order can be placed): Home, Self Care
--- NOTE | 2022-04-07 15:19 | PCM.DC.SUM ---
Providers Date of Admission: 04/05/22 Date of Discharge: 04/07/22 Primary Care Physician: Dr. Jennifer Spicer DO Reason For Visit: acute on chronic systolic congestive heart failure Diagnosis Discharge Diagnosis (1) FERNANDEZ (dyspnea on exertion): Status: Acute Code(s): R06.09 - Other forms of dyspnea (2) Chronic systolic CHF (congestive heart failure): Status: Chronic Code(s): I50.22 - Chronic systolic (congestive) heart failure Plan 1. Acute on chronic systolic congestive heart failure-continue present treatment at this time, patient will be reevaluated tomorrow #2 ischemic cardiomyopathy-complicates care, management, recovery, and prognosis, patient's last stress test did not show any areas of reversible ischemia. Patient has an echocardiogram ordered, the result is not come back yet. #3 type 2 diabetes-blood sugar will be monitored, sliding scale insulin will be used if needed #4 hypokalemia-this is mild, BMP will be rechecked tomorrow #5 chronic kidney disease stage IIIb-complicates care, management, recovery, and prognosis #6 hypoxia-patient will need a walking pulse oximetry before he is discharged home, he may qualify for home O2 #7 coronary artery disease-patient has a past history of coronary artery stent placement, he will remain on his home medications #7 long-term use of 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-I suspect this may be secondary to underlying paroxysmal atrial fibrillation, patient is currently on Eliquis, patient has a past history of AV wilmer ablation in 2019 according to his medical records. Medications at Discharge Home Medications pantoprazole 40 mg tablet,delayed release 40 mg PO BID gerd 03/13/19 aspirin 81 mg chewable tablet 81 mg PO DAILY@0800 [facility] 10/20/19 nitroglycerin 0.4 mg sublingual tablet 0.4 mg sublingual Q5M PRN Chest Pain #25 tabs 02/01/20 ranolazine 500 mg tablet,extended release,12 hr 500 mg PO BID #60 tabs 04/07/21 carvedilol 25 mg tablet 25 mg PO BID #180 tabs 09/24/21 insulin NPH isoph U-100 human 100 unit/mL (3 mL) subcutaneous pen (Humulin N NPH U-100 Insulin KwikPen) 30 units subcut BREAKFAST 11/25/21 insulin NPH isoph U-100 human 100 unit/mL (3 mL) subcutaneous pen (Humulin N NPH U-100 Insulin KwikPen) 40 unit subcut QHS diabetes 11/25/21 isosorbide mononitrate 30 mg tablet,extended release 24 hr 30 mg PO BID heart 11/25/21 apixaban 2.5 mg tablet (Eliquis) 2.5 mg PO BID blood thinner #60 tabs 01/26/22 hydrocodone-acetaminophen 5-325mg 5mg-325mg 1 tab PO Q4H PRN pain 5 days #14 tabs 03/23/22 pravastatin 40 mg tablet 40 mg PO QHS cholesterol #90 tabs 03/24/22 furosemide 40 mg tablet (Lasix) 40 mg PO UD #90 tabs 04/07/22 lisinopril 5 mg tablet 5 mg PO DAILY #30 tabs 04/07/22 spironolactone 50 mg tablet 50 mg PO DAILY #30 tabs 04/07/22 Hospital Course Operations None Procedures None Summary of Care Provided Minutes Spent on Discharge: 31 Hospital Course: This 71-year-old white male was seen in the emergency room at [facility] complaining of shortness of breath, he has a history of cardiomyopathy-patient had an ICD inserted in the past also. Patient's last echocardiogram was in June 2021, showed an ejection fraction of 35 to 40%. Patient was admitted to PCU, he was given IV diuretics and his medications were adjusted for acute on chronic systolic congestive heart failure. Echocardiogram was not repeated. Patient improved during his hospitalization and we were able to wean his oxygen off. He did not require oxygen on ambulation or at rest at the time of discharge. On 04/07/2022, patient was seen and examined: On examination he appeared in good health and spirits. Vital signs as documented. Skin warm and dry and without overt rashes. Neck without JVD, neck was supple, trachea midline, thyroid was normal. Lungs clear bilaterally, normal air movement was noted. Heart exam notable for regular rhythm, normal sounds and absence of murmurs, rubs or gallops. Abdomen unremarkable and without evidence of organomegaly, masses, or abdominal aortic enlargement. Bowel sounds are present, abdomen is not distended. Extremities nonedematous, no cyanosis was noted, no clubbing was noted. Neuro: Cranial nerves II through XII are grossly intact, no focal motor deficits were noted, sensation to light touch and pinprick intact, motor exam 5/5 throughout. Psych: Patient is alert and oriented x3, he does not appear anxious or depressed, he does not appear agitated. On 04/07/2022, patient was seen and examined and felt to be stable for discharge home Weight / BMI Weight Weight: 77.1 kg Body Mass Index (BMI) 25.2 ABG / Lab / Microbiology Data Result Diagrams: 04/06/22 08:00 04/06/22 08:00 Laboratory: Laboratory Results - last 24 hr 04/06/22 16:05: POC Glucose 226 H 04/07/22 00:37: POC Glucose 223 H 04/07/22 07:55: POC Glucose 218 H 04/07/22 11:05: POC Glucose 361 H Microbiology: Microbiology 04/05/22 18:13 Nasal Secretion SARS-CoV-2 & FLU Antigen (Rapid) - Final SARS-CoV-2 (COVID 19) D/C Instructions Discharge Diet: 1800 Calorie Control Diet Weight Bearing Status: Full weight bearing Meaningful Use Info Meaningful Use Diagnoses (Choose all that apply): CHF CHF AN/ARB ordered at discharge?: Yes Documented LVEF (%): 35 Discharge Plan Admission Admit Date/Time: 04/05/22 19:42 Primary Reason for Your Visit: congestive heart failure Attending Provider: Grant Bond Primary Care Provider: Jennifer Spicer Instructions Additional Instructions / Restrictions: If you gain more than 5 lbs in a week, call your physician Quarantine until 04/11/22 Discharge Orders/Prescriptions Prescriptions: New lisinopril 5 mg Tablet 5 mg PO DAILY Qty: 30 0RF spironolactone 50 mg Tablet 50 mg PO DAILY Qty: 30 0RF furosemide [Lasix] 40 mg tablet 40 mg PO UD Qty: 90 0RF Rx Instructions: two every morning, one at dinner daily Continued pantoprazole 40 MG tablet 40 mg PO BID aspirin 81 MG tablet,chewable 81 mg PO DAILY@0800 Humulin N NPH Insulin KwikPen 100 unit/mL (3 mL) insulin pen 40 unit subcut QHS Humulin N NPH Insulin KwikPen 100 unit/mL (3 mL) insulin pen 30 units subcut BREAKFAST isosorbide mononitrate 30 mg tablet extended release 24 hr 30 mg PO BID hydrocodone-acetaminophen 5-325 mg tablet 1 tab PO Q4H PRN (Reason: pain) 5 Days Qty: 14 0RF nitroglycerin 0.4 mg tablet, sublingual 0.4 mg SUBLINGUAL Q5M PRN (Reason: Chest Pain) Qty: 25 0RF Rx Instructions: Place one tab under tongue every 5 minutes x 3 doses as needed ranolazine 500 mg tablet extended release 12 hr 500 mg PO BID Qty: 60 11RF carvedilol 25 mg tablet 25 mg PO BID Qty: 180 3RF Eliquis 2.5 mg tablet 2.5 mg PO BID Qty: 60 11RF Rx Instructions: TAKE 1 TABLET BY MOUTH TWICE DAILY for blood thinner pravastatin 40 mg tablet 40 mg PO QHS Qty: 90 3RF Discontinued spironolactone [Aldactone] 50 mg tablet 25 mg PO DAILY Qty: 45 3RF metolazone 2.5 mg tablet 2.5 mg PO Qty: 24 3RF Rx Instructions: take on Wednesday and Wednesday. furosemide 40 mg tablet 40 mg PO BID Qty: 90 3RF Referrals / Follow Up: Jennifer Spicer DO [Primary Care Provider] - Within 2 Weeks (Please call office to schedule your appt) Disposition Disposition (needs filled in before D/C Order can be placed): Home, Self Care Charges/Coding Visit Charges Inpatient E&M: 19942 Disch Hosp >30min
== END 2022-04-07 17:02 | disposition home or self-care (01) | DRG 291 ==
LOC: ED 18:58 → PCU 19:15
PROVIDERS: Admitting Provider Internal Medicine; Emergency Provider Emergency Medicine; PCP Family Medicine; Visit Provider Internal Medicine
DX: I13.0 Hypertensive heart and chronic kidney disease with heart failure and stage 1 through stage 4 chronic kidney disease, or unspecified chronic kidney disease (principal); I50.23 Acute on chronic systolic (congestive) heart failure; E11.22 Type 2 diabetes mellitus with diabetic chronic kidney disease; I48.0 Paroxysmal atrial fibrillation; Z79.4 Long term (current) use of insulin; N18.32 Chronic kidney disease, stage 3b; U07.1 COVID-19; Z79.01 Long term (current) use of 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s; I25.10 Atherosclerotic heart disease of native coronary artery without angina pectoris; I25.5 Ischemic cardiomyopathy; E78.5 Hyperlipidemia, unspecified; I25.2 Old myocardial infarction; Z87.891 Personal history of nicotine dependence; R09.02 Hypoxemia; Z79.82 Long term (current) use of aspirin; Z95.5 Presence of coronary angioplasty implant and graft; Z79.899 Other long term (current) drug therapy; Z95.810 Presence of automatic (implantable) cardiac defibrillator
CPT/HCPCS: 36415; 71045; 71250; 80048; 82962; 83880; 84484; 85025; 87428; 93005; 94640; 96374; 96376; 97162; 97165; 99221; 99252; 99285; A4216; G0378; G0463; J1940

== ENCOUNTER 2022-04-27 17:13 | Emergency (ER) | payer MEDICARE, SELFPAY ==
[2016-06-12 14:02] VITALS: BMI 29.7
[2022-04-27 17:15] VITALS: BP 174/97; PULSE 84; RESP 18; TEMP 36.6; O2SAT 97; BMI 27.0
--- NOTE | 2022-04-27 17:31 | EKG12_ITS ---
Test Reason : Blood Pressure : / mmHG Vent. Rate : 070 BPM Atrial Rate : 333 BPM P-R Int : 000 ms QRS Dur : 142 ms QT Int : 492 ms P-R-T Axes : 000 184 067 degrees QTc Int : 531 ms Ventricular-paced rhythm Abnormal ECG Confirmed by MEL METZ, REINA ([id number]), editorial writer LISBET HAWK ([id number]) on 04/29/2022 9:00:50 AM Referred By: PIYUSH Confirmed By:REINA LEAL MD
--- NOTE | 2022-04-27 17:33 | ED.VIS.DYS ---
HPI History of Present Illness Chief Complaint: Shortness of Breath Narrative Narrative: 71-year-old male past medical history of hypertension and CHF, on Lasix, does not wear oxygen at home, presents with increasing shortness of breath since this morning. He states yesterday everything was fine. He has noticed bilateral foot swelling over the last few days. He has an occasional cough but no fever. He denies any chest pain, but states that he has had increased difficulty breathing with mild dyspnea on exertion. No nausea or vomiting. No diaphoresis. 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 [facility] Medical History Atherosclerosis of coronary artery of [place] heart without angina pectoris (~03/23/22) Atrial fibrillation Cardiogenic shock (06/08/16) Cardiomyopathy, ischemic Chronic systolic CHF (congestive heart failure) DDD (degenerative disc disease) Declining functional status Diabetes Effusion of left knee Elevated troponin Esophagitis determined by endoscopy (05/06/17) Essential hypertension Essential hypertension Former smoker Generalized weakness GERD (gastroesophageal reflux disease) Hyperglycemia Hyperlipidemia Hypertensive emergency ICD (implantable cardioverter-defibrillator) in place Inability to ambulate due to multiple joints Knee effusion, left Knee pain, left Left atrial thrombus care home current use of 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 Multiple falls Myocardial infarct Non-ST elevation CT (NSTEMI) Nonsustained ventricular tachycardia Obesity (BMI 30.0-34.9) 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 infarction Old inferolateral myocardial infarction Old myocardial infarction Osteoporosis Pacemaker Paroxysmal atrial fibrillation Right bundle branch block (RBBB) Septic arthritis of knee, left Stage 3 chronic kidney disease STEMI (ST elevation myocardial infarction) Type II diabetes mellitus Home Medications pantoprazole 40 mg tablet,delayed release 40 mg PO BID gerd 03/13/19 [History Last Taken 11/25/21] aspirin 81 mg chewable tablet 81 mg PO DAILY@0800 heart [facility] 10/20/19 [History Last Taken 11/25/21] nitroglycerin 0.4 mg sublingual tablet 0.4 mg sublingual Q5M PRN Chest Pain #25 tabs 02/01/20 [Rx Last Taken 1 Month Ago ~10/25/21] ranolazine 500 mg tablet,extended release,12 hr 500 mg PO BID #60 tabs 04/07/21 [Rx Last Taken 11/25/21] carvedilol 25 mg tablet 25 mg PO BID #180 tabs 09/24/21 [Rx Last Taken 11/25/21] insulin NPH isoph U-100 human 100 unit/mL (3 mL) subcutaneous pen (Humulin N NPH U-100 Insulin KwikPen) 30 units subcut BREAKFAST 11/25/21 [History Last Taken 11/25/21] insulin NPH isoph U-100 human 100 unit/mL (3 mL) subcutaneous pen (Humulin N NPH U-100 Insulin KwikPen) 40 unit subcut QHS diabetes 11/25/21 [History Last Taken 11/24/21] isosorbide mononitrate 30 mg tablet,extended release 24 hr 30 mg PO BID heart 11/25/21 [History Last Taken 11/25/21] apixaban 2.5 mg tablet (Eliquis) 2.5 mg PO BID blood thinner #60 tabs 01/26/22 [Rx Last Taken Unknown] hydrocodone-acetaminophen 5-325mg 5mg-325mg 1 tab PO Q4H PRN pain 5 days #14 tabs 03/23/22 [Rx Last Taken Unknown] pravastatin 40 mg tablet 40 mg PO QHS cholesterol #90 tabs 03/24/22 [Rx Last Taken Unknown] furosemide 40 mg tablet (Lasix) 40 mg PO UD #90 tabs 04/07/22 [Rx Last Taken Unknown] lisinopril 5 mg tablet 5 mg PO DAILY #30 tabs 04/07/22 [Rx Last Taken Unknown] spironolactone 50 mg tablet 50 mg PO DAILY #30 tabs 04/07/22 [Rx Last Taken Unknown] Allergy/AdvReac Type Severity Reaction Status Date / Time diltiazem Allergy LOWER LEG Verified 04/27/22 17:14 SWELLING tamsulosin [From Flomax] Allergy Shortness Verified 04/27/22 17:14 of breath/muscle weakness atorvastatin calcium AdvReac MUSCLE Verified 04/27/22 17:14 [From Lipitor] WEAKNESS Family History Brother Sudden cardiac Father Hypertension Surgical History H/O elbow surgery H/O left wrist surgery History of cardiac radiofrequency ablation (RFA) History of cardioversion (04/10/16) History of coronary artery stent placement (06/08/16) Hx of atrioventricular node ablation (02/19/20) 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 therapy defibrillator ([employer]) (02/2020) S/P right inguinal hernia repair Status post knee surgery Social History adopted: No household members: children housing: house number of children: 1 (Daughter) current occupational status: retired current occupational exposures/hazards: No pets and animals: Yes (cats) history of recent travel: No Smoking Status: Former smoker quit date: 01/03/15 pack-years: 90 how long ago did patient quit smokin years ago alcohol intake: current alcohol intake frequency: a few times a month substance use type: does not use caffeine: Yes Type: coffee Number of servings: 1 ROS ROS ED ROS Narrative Constitutional: No fever, no chills. HEENT: No sore throat. No neck pain. No loss of vision. No rhinorrhea. Cardiovascular: No chest pain. No palpitations. Bilateral pedal edema. Respiratory: Positive cough, increasing dyspnea on exertion and shortness of breath. Abdominal: No abdominal pain. No nausea. No vomiting. Genitourinary: No dysuria. No hematuria. Musculoskeletal: No myalgias. No arthralgias. Neurologic: No headaches. No dizziness. No lightheadedness. Skin: No rash. No change in color. Psychiatric: No depression. No anxiety. EXAM Physical Exam Narrative Exam Narrative: Afebrile. Vital signs noted. HEENT: Normocephalic. Atraumatic. PERRL, EOMI. Neck soft and supple. No point tenderness or step off. Cardiovascular: Regular rate and rhythm. No murmurs, rubs, or gallops appreciated. Respiratory: No tachypnea. Lungs clear to auscultation bilaterally with the exception of occasional bibasilar rales Gastrointestinal: Abdomen soft, nontender, with normoactive bowel sounds. No rebound or guarding. Neurological: Awake. Alert. Nonfocal, nonlateralizing. Skin: No rash. Normal color. No pallor. Musculoskeletal: No pedal edema. Full range of motion extremities. Const Vital Signs: 04/27/22 17:15 04/27/22 17:21 04/27/22 19:14 Temperature 97.9 F Temperature Source Oral Pulse Rate 84 Respiratory Rate 18 Respiratory Effort Non-Labored Short of Breath Respiratory Depth Normal Respiratory Pattern Normal Blood Pressure 174/97 H 173/95 H Blood Pressure Mean 122 121 Pulse Ox 97 Oxygen Delivery Method Room Air Room Air MDM MDM MDM Narrative Medical decision making narrative: CHF work-up was pursued. I will not administer IV fluids with his history. In review of his outpatient record, he does have hyperlipidemia, history of paroxysmal atrial fibrillation and defibrillator in place. He has coronary artery disease and stage III chronic kidney disease also. Comprehensive work-up shows an EKG that was interpreted by myself as ventricular paced rhythm at 70 bpm without ectopy or acute ST changes. No STEMI. In review of his laboratory work, he has a normal white count of 6.8, hemoglobin normal at 14.4, platelet count normal at 219. Sodium slightly low at 135 with a BUN of 21 and a creatinine of 1.58. BNP is slightly elevated above baseline at 269. Chest x-ray interpreted by myself shows interstitial edema but no pneumothorax or infiltrate. He was ambulated and his pulse ox remains normal, 94% reported on room air. He feels well and would like to be discharged. I did speak with his check writer salesperson, Dr. Paul, who would like his Lasix increased to 80 mg in the morning and 40 mg at night. The patient did have a recent increase to 80 mg over the last few weeks when he was seen previously at the beginning of the year, few weeks ago. Patient and family state they have an appointment later this week with cardiology. I feel he can be discharged safely home with follow-up. Return instructions were reviewed. Disposition is discharged home in stable condition. Lab Data Attestation: I reviewed the patient's lab results. Labs: Laboratory Results - last 24 hr 04/27/22 04/27/22 04/27/22 17:46 17:46 17:46 WBC 6.8 RBC 5.11 Hgb 14.4 Hct 45.0 MCV 88.1 MCH 28.2 MCHC 32.0 RDW Std Deviation 47.3 H RDW Coeff of [place] 14.8 H Plt Count 219 MPV 8.8 Immature Gran % (Auto) 1.800 H Neut % (Auto) 72.1 H Lymph % (Auto) 12.3 L [place] % (Auto) 11.3 H Eos % (Auto) 1.6 Baso % (Auto) 0.9 Absolute Neuts (auto) 4.9 Absolute Lymphs (auto) 0.84 Nucleated RBC % 0 Sodium 135 L Potassium 4.0 Chloride 102 Carbon Dioxide 25.0 Anion Gap 8 BUN 21 H Creatinine 1.58 H Estim Creat Clear Calc 44.13 Est GFR (MDRD) Af Amer 56 L Est GFR (MDRD) Non-Af 46 L BUN/Creatinine Ratio 13.3 Glucose 215 H Calcium 8.6 B-Natriuretic Peptide 269.1 H Radiography Diagnostic Testing: Clinical Impression(s) from Imaging Studies Chest X-Ray 04/27/22 18:10 IMPRESSION: Mild interstitial infiltrates Electronically Signed: Gino Guy MD at 18:32 EST , Discharge Plan Triage Chief Complaint: Shortness of Breath ED Provider: Serge Ramirez Dx/Rx/DC Orders Clinical Impression: Chronic systolic CHF (congestive heart failure), SOB (shortness of breath) Instructions: ED Heart Failure, Congestive (CHF), ED Dyspnea Prescriptions: No Action pantoprazole 40 MG tablet 40 mg PO BID aspirin 81 MG tablet,chewable 81 mg PO DAILY@0800 Humulin N NPH Insulin KwikPen 100 unit/mL (3 mL) insulin pen 40 unit subcut QHS Humulin N NPH Insulin KwikPen 100 unit/mL (3 mL) insulin pen 30 units subcut BREAKFAST isosorbide mononitrate 30 mg tablet extended release 24 hr 30 mg PO BID hydrocodone-acetaminophen 5-325 mg tablet 1 tab PO Q4H PRN (Reason: pain) 5 Days Qty: 14 0RF lisinopril 5 mg Tablet 5 mg PO DAILY Qty: 30 0RF spironolactone 50 mg Tablet 50 mg PO DAILY Qty: 30 0RF furosemide [Lasix] 40 mg tablet 40 mg PO UD Qty: 90 0RF Rx Instructions: two every morning, one at dinner daily nitroglycerin 0.4 mg tablet, sublingual 0.4 mg SUBLINGUAL Q5M PRN (Reason: Chest Pain) Qty: 25 0RF Rx Instructions: Place one tab under tongue every 5 minutes x 3 doses as needed ranolazine 500 mg tablet extended release 12 hr 500 mg PO BID Qty: 60 11RF carvedilol 25 mg tablet 25 mg PO BID Qty: 180 3RF Eliquis 2.5 mg tablet 2.5 mg PO BID Qty: 60 11RF Rx Instructions: TAKE 1 TABLET BY MOUTH TWICE DAILY for blood thinner pravastatin 40 mg tablet 40 mg PO QHS Qty: 90 3RF Primary Care Provider: Jennifer Spicer Referrals: Jennifer Spicer DO [Primary Care Provider] - Activity Restrictions/Additional Instructions: Increase the dosing of your Lasix to 80 mg in the morning, then 40 mg at night. Follow-up in the cardiology office as scheduled this week. Disposition Disposition: Home, Self Care Discharge Date/Time: 04/27/22 21:03
[2022-04-27 17:53] LABS: Absolute Lymphocyte Count 0.84 X10^3/uL (0.83-4.51); Absolute Neutrophil Count 4.9 X10^3/uL (2.0-7.7); Basophil# 0.06 X10^3/uL; Basophil% 0.9 % (0-1); Eosinophil# 0.11 X10^3/uL; Eosinophils% 1.6 % (0-5); Hemoglobin 14.4 g/dL (13.0-16.5); Lymphocyte # 0.84 X10^3/ul (0.83-4.51); Lymphocyte % 12.3 % (19-41); Mean Corpuscular Hgb 28.2 pg (27.0-32.0); Mean Corpuscular Volume 88.1 fL (80-94); Mean Platelet Vol. 8.8 fl (6.2-12.0); Monocyte# 0.77 X10^3/uL; Monocyte% 11.3 % (0-10); NRBC Flagged by Analyzer 0 % (0-5); Neutrophil # 4.93 X10^3/uL (2.7-7.7); Neutrophil % 72.1 % (47-70); Platelet Count 219 K/mm3 (150-450); RBC Distribution Width CV 14.8 % (11.6-14.6); RBC Distribution Width SD 47.3 fl (35.1-43.9); Red Blood Count 5.11 M/mm3 (4.6-6.2); White Blood Count 6.8 K/mm3 (4.4-11.0)
[2022-04-27 18:10] LABS: Anion Gap 8 (5-15); BUN 21 mg/dL (7-18); BUN/Creat Ratio 13.3 RATIO (10-20); Calcium,Total 8.6 mg/dL (8.5-10.1); Chloride 102 mmol/L (98-107); Creatinine, Serum 1.58 mg/dL (0.70-1.30); EST Glomerular Filtration Rate 46 mL/min (>60); Est Glom Filt Rate - Afr Amer 56 mL/min (>60); Estimated Creatinine Clearance 44.13 ml/min; Glucose 215 mg/dL (74-106); Sodium Level 135 mmol/L (136-145)
--- NOTE | 2022-04-27 18:10 | RAD_ITS ---
STUDY: X-RAY CHEST REASON FOR EXAM: Male, 71 years old. shortness of breath TECHNIQUE: Single frontal view of the chest. COMPARISON: CT chest April 05, 2022 FINDINGS: Bibasilar pacer on the left unchanged. Possible mild interstitial infiltrates. There is no demonstrated pleural abnormality. Normal size heart. Normal mediastinum and loco. Normal visualized pulmonary arteries. Normal visualized aortic arch and descending thoracic aorta. Normal visualized thoracic spine. Normal visualized ribs, clavicles, and shoulders. There is no demonstrated abnormality of the visualized soft tissue structures of the upper abdomen. RAD/Chest 1 View (Portable) IMPRESSION: Mild interstitial infiltrates Electronically Signed: Gino Guy MD at 18:32 EST ,
[2022-04-27 18:26] LABS: BNP,B-Type NATRIURETIC PEPTIDE 269.1 pg/mL (0-100)
[2022-04-27 19:14] VITALS: BP 173/95
[2022-04-27 19:32] VITALS: O2SAT 98
[2022-04-27] MEDS: Furosemide 40 MG/4 ML Vial IV (20:06)
--- NOTE | 2022-04-27 21:02 | ED.RN ---
patient using urinal when his knee gave out and he lowered himself to his knees. patient denies any injury. patient states this happens all the time. Patient states he lives with his family at home.
== END 2022-04-27 21:03 | disposition home or self-care (01) ==
PROVIDERS: Emergency Provider Emergency Medicine; PCP Family Medicine; Visit Provider Emergency Medicine
DX: I13.0 Hypertensive heart and chronic kidney disease with heart failure and stage 1 through stage 4 chronic kidney disease, or unspecified chronic kidney disease (principal); I50.22 Chronic systolic (congestive) heart failure; N18.30 Chronic kidney disease, stage 3 unspecified; R06.02 Shortness of breath; I25.10 Atherosclerotic heart disease of native coronary artery without angina pectoris; I25.2 Old myocardial infarction; Z95.810 Presence of automatic (implantable) cardiac defibrillator; Z95.5 Presence of coronary angioplasty implant and graft; Z87.891 Personal history of nicotine dependence
CPT/HCPCS: 71045; 80048; 83880; 85025; 87428; 93005; 96374; 99285; J1940

== ENCOUNTER → 2022-05-01 | Outpatient (CLI) | payer MEDICARE, SELFPAY ==
[2016-06-12 14:02] VITALS: BMI 29.7
[2022-05-01 16:28] LABS: BNP,B-Type NATRIURETIC PEPTIDE 246.1 pg/mL (0-100)
[2022-05-01 16:38] LABS: Anion Gap 11 (5-15); BUN 33 mg/dL (7-18); BUN/Creat Ratio 15.4 RATIO (10-20); Chloride 92 mmol/L (98-107); Creatinine, Serum 2.14 mg/dL (0.70-1.30); EST Glomerular Filtration Rate 33 mL/min (>60); Est Glom Filt Rate - Afr Amer 40 mL/min (>60); Glucose 588 mg/dL (74-106); Potassium 4.2 mmol/L (3.5-5.1); Sodium Level 131 mmol/L (136-145)
== END | disposition home or self-care (01) ==
LOC: LAB 14:42
PROVIDERS: PCP Family Medicine; Visit Provider Nurse Practitioner Gerontology
DX: I21.4 Non-ST elevation (NSTEMI) myocardial infarction (principal); I25.5 Ischemic cardiomyopathy; I10 Essential (primary) hypertension
CPT/HCPCS: 36415; 80048; 83880